=== PATIENT | female | born 1945 | race Caucasian/White ===

== ENCOUNTER → 2018-04-16 13:58 | Outpatient (CLI) | payer MEDICARE, OTHER, SELFPAY ==
[2018-04-16 14:16] LABS: Basophils % 0.2 % (0.1-2.0); Eosinophils # 0.2 K/mm3 (0.0-0.4); Eosinophils % 4.4 % (0.1-12.0); Hemoglobin 12.8 g/dL (12.2-16.2); Lymphocytes # 0.8 K/mm3 (0.7-4.5); Lymphocytes % 15.1 K/mm3 (10-50); Mean Corpuscular HGB Conc 31.9 g/dL (31.8-35.4); Mean Corpuscular Hemoglobin 29.5 pg (27.0-31.2); Mean Corpuscular Volume 92.5 fl (81-99); Mean Platelet Volume 7.9 fl (7.4-10.4); Monocytes # 0.1 K/mm3 (0.1-1.0); Monocytes % 1.3 % (1.7-9.3); Neutrophils # 4.1 K/mm3 (1.8-7.8); Neutrophils % 79.1 % (37.0-80.0); Platelet Count 283 K/mm3 (142-424); Red Blood Count 4.32 M/mm3 (4.20-5.40); Red Cell Distribution Width 14.4 % (11.5-17.5); White Blood Count 5.2 K/mm3 (4.8-10.8)
[2018-04-16 15:22] LABS: Alanine Aminotransferase 42 U/L (12-78); Albumin Level 3.5 gm/dL (3.4-5.0); Alkaline Phosphatase 43 U/L (46-116); Anion Gap 11.7 mEq/L (5-15); Aspartate Amino Transferase 30 U/L (15-37); Bilirubin,Total 0.6 mg/dL (0.2-1.0); Blood Urea Nitrogen 50 mg/dL (7-18); Calcium 8.7 mg/dL (8.5-10.1); Carbon Dioxide 27 mmol/L (21.0-32.0); Chloride 99 mmol/L (98-107); Creatinine,Serum 1.18 mg/dL (0.55-1.02); Estimated Glomerular Filt Rate 45 ml/min (>60); GFR (African American) 54 ML/MIN (>60); Globulin 3.5 gm/dl (1.3-3.2); Glucose 137 mg/dL (74-106); Potassium 4.7 mmoL/L (3.5-5.1); Sodium 133 mmol/L (136-145)
== END ==
PROVIDERS: PCP Family Medicine; Visit Provider Obstetrics & Gynecology Gynecologic Oncology
DX: C54.9 Malignant neoplasm of corpus uteri, unspecified (principal)
CPT/HCPCS: 36415; 80053; 85025

== ENCOUNTER → 2018-04-23 11:12 | Outpatient (CLI) | payer MEDICARE, OTHER, SELFPAY ==
[2018-04-23 11:58] LABS: Basophils % 0.4 % (0.1-2.0); Eosinophils # 0.2 K/mm3 (0.0-0.4); Eosinophils % 10.2 % (0.1-12.0); Hematocrit 33.1 % (37.0-47.0); Hemoglobin 10.5 g/dL (12.2-16.2); Lymphocytes # 1.2 K/mm3 (0.7-4.5); Lymphocytes % 48.3 K/mm3 (10-50); Mean Corpuscular HGB Conc 31.8 g/dL (31.8-35.4); Mean Corpuscular Hemoglobin 29.4 pg (27.0-31.2); Mean Corpuscular Volume 92.6 fl (81-99); Mean Platelet Volume 6.8 fl (7.4-10.4); Monocytes # 0.3 K/mm3 (0.1-1.0); Monocytes % 11.1 % (1.7-9.3); Neutrophils # 0.7 K/mm3 (1.8-7.8); Platelet Count 281 K/mm3 (142-424); Red Blood Count 3.57 M/mm3 (4.20-5.40); Red Cell Distribution Width 14.6 % (11.5-17.5); White Blood Count 2.4 K/mm3 (4.8-10.8)
[2018-04-23 13:10] LABS: Alanine Aminotransferase 32 U/L (12-78); Albumin/Globulin Ratio 0.9 (1.1-1.8); Alkaline Phosphatase 49 U/L (46-116); Aspartate Amino Transferase 23 U/L (15-37); Bilirubin,Total 0.2 mg/dL (0.2-1.0); Blood Urea Nitrogen 14 mg/dL (7-18); Calcium 8.4 mg/dL (8.5-10.1); Carbon Dioxide 27 mmol/L (21.0-32.0); Chloride 103 mmol/L (98-107); Creatinine,Serum 0.65 mg/dL (0.55-1.02); Estimated Glomerular Filt Rate 90 ml/min (>60); GFR (African American) 108 ML/MIN (>60); Globulin 3.4 gm/dl (1.3-3.2); Glucose 83 mg/dL (74-106); Sodium 138 mmol/L (136-145); Total Protein,Serum 6.4 gm/dL (6.4-8.2)
== END ==
PROVIDERS: Obstetrics & Gynecology Gynecologic Oncology; PCP Family Medicine; Visit Provider Family Medicine
DX: C54.9 Malignant neoplasm of corpus uteri, unspecified (principal)
CPT/HCPCS: 36415; 80053; 85025

== ENCOUNTER → 2018-04-30 12:00 | Outpatient (CLI) | payer MEDICARE, OTHER, SELFPAY ==
[2018-04-30 12:16] LABS: Basophils % 0.5 % (0.1-2.0); Eosinophils # 0.1 K/mm3 (0.0-0.4); Eosinophils % 1.7 % (0.1-12.0); Hemoglobin 10.9 g/dL (12.2-16.2); Lymphocytes % 18.3 K/mm3 (10-50); Mean Corpuscular HGB Conc 31.2 g/dL (31.8-35.4); Mean Corpuscular Hemoglobin 29.5 pg (27.0-31.2); Mean Corpuscular Volume 94.5 fl (81-99); Mean Platelet Volume 7.1 fl (7.4-10.4); Monocytes # 0.2 K/mm3 (0.1-1.0); Neutrophils # 4.2 K/mm3 (1.8-7.8); Neutrophils % 76.6 % (37.0-80.0); Platelet Count 308 K/mm3 (142-424); Red Blood Count 3.71 M/mm3 (4.20-5.40); White Blood Count 5.5 K/mm3 (4.8-10.8)
[2018-04-30 20:04] LABS: Alanine Aminotransferase 25 U/L (12-78); Albumin Level 3.1 gm/dL (3.4-5.0); Albumin/Globulin Ratio 0.9 (1.1-1.8); Alkaline Phosphatase 53 U/L (46-116); Anion Gap 13.6 mEq/L (5-15); Aspartate Amino Transferase 19 U/L (15-37); Bilirubin,Total 0.2 mg/dL (0.2-1.0); Blood Urea Nitrogen 19 mg/dL (7-18); Calcium 9.2 mg/dL (8.5-10.1); Carbon Dioxide 28 mmol/L (21.0-32.0); Chloride 104 mmol/L (98-107); Creatinine,Serum 0.79 mg/dL (0.55-1.02); Estimated Glomerular Filt Rate 72 ml/min (>60); GFR (African American) 87 ML/MIN (>60); Globulin 3.5 gm/dl (1.3-3.2); Glucose 98 mg/dL (74-106); Potassium 4.6 mmoL/L (3.5-5.1); Sodium 141 mmol/L (136-145); Total Protein,Serum 6.6 gm/dL (6.4-8.2)
== END ==
PROVIDERS: PCP Family Medicine; Visit Provider Obstetrics & Gynecology Gynecologic Oncology
DX: C54.9 Malignant neoplasm of corpus uteri, unspecified (principal)
CPT/HCPCS: 36415; 80053; 85025

== ENCOUNTER → 2018-05-07 11:57 | Outpatient (CLI) | payer MEDICARE, OTHER, SELFPAY ==
[2018-05-07 12:23] LABS: Basophils % 0.1 % (0.1-2.0); Eosinophils % 0.6 % (0.1-12.0); Hematocrit 37.4 % (37.0-47.0); Hemoglobin 12.1 g/dL (12.2-16.2); Lymphocytes # 1.2 K/mm3 (0.7-4.5); Lymphocytes % 26.4 K/mm3 (10-50); Mean Corpuscular HGB Conc 32.4 g/dL (31.8-35.4); Mean Corpuscular Hemoglobin 29.9 pg (27.0-31.2); Mean Corpuscular Volume 92.4 fl (81-99); Mean Platelet Volume 7.8 fl (7.4-10.4); Monocytes % 0.9 % (1.7-9.3); Neutrophils # 3.2 K/mm3 (1.8-7.8); Platelet Count 376 K/mm3 (142-424); Red Blood Count 4.05 M/mm3 (4.20-5.40); Red Cell Distribution Width 15.8 % (11.5-17.5); White Blood Count 4.5 K/mm3 (4.8-10.8)
[2018-05-07 12:45] LABS: Alanine Aminotransferase 25 U/L (12-78); Albumin Level 3.5 gm/dL (3.4-5.0); Alkaline Phosphatase 46 U/L (46-116); Anion Gap 13.5 mEq/L (5-15); Aspartate Amino Transferase 19 U/L (15-37); Bilirubin,Total 0.5 mg/dL (0.2-1.0); Blood Urea Nitrogen 43 mg/dL (7-18); Calcium 9.8 mg/dL (8.5-10.1); Carbon Dioxide 28 mmol/L (21.0-32.0); Chloride 98 mmol/L (98-107); Creatinine,Serum 1.09 mg/dL (0.55-1.02); Estimated Glomerular Filt Rate 49 ml/min (>60); GFR (African American) 60 ML/MIN (>60); Globulin 3.6 gm/dl (1.3-3.2); Glucose 141 mg/dL (74-106); Potassium 4.5 mmoL/L (3.5-5.1); Sodium 135 mmol/L (136-145); Total Protein,Serum 7.1 gm/dL (6.4-8.2)
== END ==
PROVIDERS: PCP Family Medicine; Visit Provider Obstetrics & Gynecology Gynecologic Oncology
DX: C54.9 Malignant neoplasm of corpus uteri, unspecified (principal)
CPT/HCPCS: 36415; 80053; 85025

== ENCOUNTER → 2018-05-14 11:30 | Outpatient (CLI) | payer MEDICARE, OTHER, SELFPAY ==
[2018-05-14 12:05] LABS: Basophils % 0.4 % (0.1-2.0); Eosinophils % 0.3 % (0.1-12.0); Hematocrit 31.9 % (37.0-47.0); Hemoglobin 10.2 g/dL (12.2-16.2); Lymphocytes # 0.7 K/mm3 (0.7-4.5); Lymphocytes % 35.8 K/mm3 (10-50); Mean Corpuscular Hemoglobin 30.7 pg (27.0-31.2); Monocytes # 0.3 K/mm3 (0.1-1.0); Monocytes % 14.3 % (1.7-9.3); Neutrophils # 0.9 K/mm3 (1.8-7.8); Platelet Count 366 K/mm3 (142-424); Red Blood Count 3.32 M/mm3 (4.20-5.40); Red Cell Distribution Width 16.8 % (11.5-17.5); White Blood Count 1.8 K/mm3 (4.8-10.8)
[2018-05-14 12:55] LABS: Alanine Aminotransferase 24 U/L (12-78); Albumin/Globulin Ratio 0.9 (1.1-1.8); Alkaline Phosphatase 60 U/L (46-116); Anion Gap 12.6 mEq/L (5-15); Aspartate Amino Transferase 17 U/L (15-37); Bilirubin,Total 0.3 mg/dL (0.2-1.0); Blood Urea Nitrogen 17 mg/dL (7-18); Calcium 8.6 mg/dL (8.5-10.1); Carbon Dioxide 25 mmol/L (21.0-32.0); Chloride 105 mmol/L (98-107); Creatinine,Serum 0.68 mg/dL (0.55-1.02); Estimated Glomerular Filt Rate 85 ml/min (>60); GFR (African American) 103 ML/MIN (>60); Globulin 3.4 gm/dl (1.3-3.2); Glucose 120 mg/dL (74-106); Potassium 3.6 mmoL/L (3.5-5.1); Sodium 139 mmol/L (136-145); Total Protein,Serum 6.4 gm/dL (6.4-8.2)
== END ==
PROVIDERS: PCP Family Medicine; Visit Provider Obstetrics & Gynecology Gynecologic Oncology
DX: C54.9 Malignant neoplasm of corpus uteri, unspecified (principal)
CPT/HCPCS: 36415; 80053; 85025

== ENCOUNTER → 2018-05-21 11:52 | Outpatient (CLI) | payer MEDICARE, OTHER, SELFPAY ==
[2018-05-21 12:25] LABS: Alanine Aminotransferase 27 U/L (12-78); Albumin Level 2.8 gm/dL (3.4-5.0); Albumin/Globulin Ratio 0.6 (1.1-1.8); Alkaline Phosphatase 65 U/L (46-116); Aspartate Amino Transferase 18 U/L (15-37); Bilirubin,Total 0.2 mg/dL (0.2-1.0); Blood Urea Nitrogen 19 mg/dL (7-18); Calcium 9.4 mg/dL (8.5-10.1); Carbon Dioxide 30 mmol/L (21.0-32.0); Chloride 103 mmol/L (98-107); Creatinine,Serum 0.75 mg/dL (0.55-1.02); Estimated Glomerular Filt Rate 76 ml/min (>60); GFR (African American) 92 ML/MIN (>60); Globulin 4.5 gm/dl (1.3-3.2); Glucose 82 mg/dL (74-106); Sodium 139 mmol/L (136-145); Total Protein,Serum 7.3 gm/dL (6.4-8.2)
[2018-05-21 13:56] LABS: Basophils % 0.5 % (0.1-2.0); Eosinophils % 0.5 % (0.1-12.0); Hemoglobin 9.7 g/dL (12.2-16.2); Lymphocytes # 1.2 K/mm3 (0.7-4.5); Lymphocytes % 23.7 K/mm3 (10-50); Mean Corpuscular HGB Conc 31.4 g/dL (31.8-35.4); Mean Corpuscular Hemoglobin 30.3 pg (27.0-31.2); Mean Corpuscular Volume 96.5 fl (81-99); Mean Platelet Volume 6.8 fl (7.4-10.4); Monocytes # 0.2 K/mm3 (0.1-1.0); Monocytes % 2.9 % (1.7-9.3); Neutrophils # 3.7 K/mm3 (1.8-7.8); Neutrophils % 72.4 % (37.0-80.0); Platelet Count 288 K/mm3 (142-424); Red Blood Count 3.21 M/mm3 (4.20-5.40); Red Cell Distribution Width 17.1 % (11.5-17.5); White Blood Count 5.2 K/mm3 (4.8-10.8)
== END ==
PROVIDERS: PCP Family Medicine; Visit Provider Obstetrics & Gynecology Gynecologic Oncology
DX: C54.9 Malignant neoplasm of corpus uteri, unspecified (principal)
CPT/HCPCS: 36415; 80053; 85025

== ENCOUNTER → 2018-05-28 12:31 | Outpatient (CLI) | payer MEDICARE, OTHER, SELFPAY ==
[2018-05-28 13:14] LABS: Eosinophils % 0.6 % (0.1-12.0); Hemoglobin 10.4 g/dL (12.2-16.2); Lymphocytes # 0.9 K/mm3 (0.7-4.5); Lymphocytes % 30.1 K/mm3 (10-50); Mean Corpuscular HGB Conc 32.5 g/dL (31.8-35.4); Mean Corpuscular Volume 95.6 fl (81-99); Mean Platelet Volume 7.5 fl (7.4-10.4); Monocytes % 1.3 % (1.7-9.3); Platelet Count 338 K/mm3 (142-424); Red Blood Count 3.35 M/mm3 (4.20-5.40); Red Cell Distribution Width 16.6 % (11.5-17.5)
[2018-05-28 14:35] LABS: Alanine Aminotransferase 24 U/L (12-78); Albumin Level 3.2 gm/dL (3.4-5.0); Albumin/Globulin Ratio 0.9 (1.1-1.8); Alkaline Phosphatase 51 U/L (46-116); Anion Gap 15.3 mEq/L (5-15); Aspartate Amino Transferase 13 U/L (15-37); Bilirubin,Total 0.4 mg/dL (0.2-1.0); Blood Urea Nitrogen 36 mg/dL (7-18); Calcium 9.2 mg/dL (8.5-10.1); Carbon Dioxide 26 mmol/L (21.0-32.0); Chloride 98 mmol/L (98-107); Creatinine,Serum 0.89 mg/dL (0.55-1.02); Estimated Glomerular Filt Rate 62 ml/min (>60); GFR (African American) 75 ML/MIN (>60); Globulin 3.7 gm/dl (1.3-3.2); Glucose 130 mg/dL (74-106); Potassium 4.3 mmoL/L (3.5-5.1); Sodium 135 mmol/L (136-145); Total Protein,Serum 6.9 gm/dL (6.4-8.2)
== END ==
PROVIDERS: PCP Family Medicine; Visit Provider Obstetrics & Gynecology Gynecologic Oncology
DX: C54.9 Malignant neoplasm of corpus uteri, unspecified (principal)
CPT/HCPCS: 36415; 80053; 85025

== ENCOUNTER → 2018-06-04 13:10 | Outpatient (CLI) | payer MEDICARE, OTHER, SELFPAY ==
[2018-06-04 13:59] LABS: Basophils % 0.4 % (0.1-2.0); Eosinophils % 0.9 % (0.1-12.0); Hematocrit 30.5 % (37.0-47.0); Hemoglobin 9.4 g/dL (12.2-16.2); Lymphocytes # 1.7 K/mm3 (0.7-4.5); Lymphocytes % 65.6 K/mm3 (10-50); Mean Corpuscular Hemoglobin 30.8 pg (27.0-31.2); Mean Corpuscular Volume 99.3 fl (81-99); Mean Platelet Volume 7.7 fl (7.4-10.4); Monocytes # 0.2 K/mm3 (0.1-1.0); Monocytes % 8.3 % (1.7-9.3); Neutrophils # 0.6 K/mm3 (1.8-7.8); Neutrophils % 24.7 % (37.0-80.0); Platelet Count 366 K/mm3 (142-424); Red Blood Count 3.07 M/mm3 (4.20-5.40); Red Cell Distribution Width 18.2 % (11.5-17.5); White Blood Count 2.6 K/mm3 (4.8-10.8)
[2018-06-04 14:02] LABS: MANUAL DIFFERENTIAL MANUAL DIFFERENTIAL (MANUAL DIFF)
[2018-06-04 18:23] LABS: Eosinophils % 2 % (0-3); Lymphocytes % 67 % (10-50); Monocytes % 8 % (2-9); Neutrophils % 22 % (42-76); Platelet Estimate Normal; RBC Morphology Normal; Total Cells Counted 100
[2018-06-04 19:45] LABS: Alanine Aminotransferase 25 U/L (12-78); Albumin Level 3.2 gm/dL (3.4-5.0); Alkaline Phosphatase 48 U/L (46-116); Anion Gap 13.4 mEq/L (5-15); Aspartate Amino Transferase 17 U/L (15-37); Bilirubin,Total 0.2 mg/dL (0.2-1.0); Blood Urea Nitrogen 23 mg/dL (7-18); Calcium 8.6 mg/dL (8.5-10.1); Carbon Dioxide 28 mmol/L (21.0-32.0); Chloride 101 mmol/L (98-107); Creatinine,Serum 0.99 mg/dL (0.55-1.02); Estimated Glomerular Filt Rate 55 ml/min (>60); GFR (African American) 67 ML/MIN (>60); Globulin 3.3 gm/dl (1.3-3.2); Glucose 114 mg/dL (74-106); Potassium 3.4 mmoL/L (3.5-5.1); Sodium 139 mmol/L (136-145); Total Protein,Serum 6.5 gm/dL (6.4-8.2)
== END ==
PROVIDERS: Visit Provider Obstetrics & Gynecology Gynecologic Oncology
DX: C65.9 Malignant neoplasm of unspecified renal pelvis (principal)
CPT/HCPCS: 36415; 80053; 85007; 85025

== ENCOUNTER → 2018-06-11 12:14 | Outpatient (CLI) | payer MEDICARE, OTHER, SELFPAY ==
[2018-06-11 13:37] LABS: Basophils % 0.4 % (0.1-2.0); Eosinophils % 0.4 % (0.1-12.0); Hemoglobin 10.5 g/dL (12.2-16.2); Lymphocytes # 1.3 K/mm3 (0.7-4.5); Lymphocytes % 32.8 % (10-50); Mean Corpuscular HGB Conc 31.9 g/dL (31.8-35.4); Mean Corpuscular Hemoglobin 31.6 pg (27.0-31.2); Mean Platelet Volume 6.6 fl (7.4-10.4); Monocytes # 0.2 K/mm3 (0.1-1.0); Monocytes % 4.9 % (1.7-9.3); Neutrophils # 2.4 K/mm3 (1.8-7.8); Neutrophils % 61.5 % (37.0-80.0); Platelet Count 317 K/mm3 (142-424); Red Blood Count 3.33 M/mm3 (4.20-5.40); Red Cell Distribution Width 19.1 % (11.5-17.5); White Blood Count 3.8 K/mm3 (4.8-10.8)
[2018-06-11 13:52] LABS: Alanine Aminotransferase 22 U/L (12-78); Albumin Level 3.3 gm/dL (3.4-5.0); Albumin/Globulin Ratio 0.9 (1.1-1.8); Alkaline Phosphatase 58 U/L (46-116); Aspartate Amino Transferase 16 U/L (15-37); Bilirubin,Total 0.2 mg/dL (0.2-1.0); Blood Urea Nitrogen 18 mg/dL (7-18); Calcium 9.4 mg/dL (8.5-10.1); Carbon Dioxide 29 mmol/L (21.0-32.0); Chloride 101 mmol/L (98-107); Creatinine,Serum 0.68 mg/dL (0.55-1.02); Estimated Glomerular Filt Rate 85 ml/min (>60); GFR (African American) 103 ML/MIN (>60); Globulin 3.6 gm/dl (1.3-3.2); Glucose 99 mg/dL (74-106); Sodium 140 mmol/L (136-145); Total Protein,Serum 6.9 gm/dL (6.4-8.2)
== END ==
PROVIDERS: Visit Provider Obstetrics & Gynecology Gynecologic Oncology
DX: C54.9 Malignant neoplasm of corpus uteri, unspecified (principal)
CPT/HCPCS: 36415; 80053; 85025

== ENCOUNTER 2018-07-25 09:35 | Outpatient (CLI) | payer MEDICARE, OTHER, SELFPAY ==
[2018-07-25 09:46] VITALS: BMI 30.9
[2018-07-25 10:23] LABS: Basophils % 0.6 % (0.1-2.0); Eosinophils # 0.3 K/mm3 (0.0-0.4); Eosinophils % 6.2 % (0.1-12.0); Hematocrit 34.5 % (37.0-47.0); Hemoglobin 10.8 g/dL (12.2-16.2); Lymphocytes # 0.7 K/mm3 (0.7-4.5); Lymphocytes % 13.8 % (10-50); Mean Corpuscular HGB Conc 31.4 g/dL (31.8-35.4); Mean Corpuscular Hemoglobin 31.9 pg (27.0-31.2); Mean Corpuscular Volume 101.7 fl (81-99); Mean Platelet Volume 7.1 fl (7.4-10.4); Monocytes # 0.2 K/mm3 (0.1-1.0); Monocytes % 4.4 % (1.7-9.3); Neutrophils # 3.6 K/mm3 (1.8-7.8); Platelet Count 266 K/mm3 (142-424); Red Blood Count 3.39 M/mm3 (4.20-5.40); Red Cell Distribution Width 15.9 % (11.5-17.5); White Blood Count 4.8 K/mm3 (4.8-10.8)
[2018-07-25 10:37] LABS: Alanine Aminotransferase 25 U/L (12-78); Albumin Level 3.2 gm/dL (3.4-5.0); Alkaline Phosphatase 48 U/L (46-116); Anion Gap 13.6 mEq/L (5-15); Aspartate Amino Transferase 18 U/L (15-37); Bilirubin,Total 0.3 mg/dL (0.2-1.0); Blood Urea Nitrogen 20 mg/dL (7-18); Calcium 8.8 mg/dL (8.5-10.1); Carbon Dioxide 25 mmol/L (21.0-32.0); Chloride 107 mmol/L (98-107); Creatinine Clearance Estimated 64 mL/min (50-200); Creatinine,Serum 0.96 mg/dL (0.55-1.02); Estimated Glomerular Filt Rate 57 ml/min (>60); GFR (African American) 69 ML/MIN (>60); Globulin 3.3 gm/dl (1.3-3.2); Glucose 116 mg/dL (74-106); Potassium 3.6 mmoL/L (3.5-5.1); Sodium 142 mmol/L (136-145); Total Protein,Serum 6.5 gm/dL (6.4-8.2)
== END 2018-07-25 10:15 | disposition home or self-care (01) ==
LOC: INF 09:42
PROVIDERS: Visit Provider Physician Assistant
DX: C54.9 Malignant neoplasm of corpus uteri, unspecified (principal)
CPT/HCPCS: 80053; 85025; J1642

== ENCOUNTER → 2018-07-30 09:22 | Outpatient (CLI) | payer MEDICARE, SELFPAY ==
[2018-07-30 09:24] VITALS: BMI 30.9
[2018-07-30 09:44] LABS: Basophils % 0.6 % (0.1-2.0); Eosinophils # 0.4 K/mm3 (0.0-0.4); Eosinophils % 7.2 % (0.1-12.0); Hematocrit 34.8 % (37.0-47.0); Hemoglobin 10.6 g/dL (12.2-16.2); Lymphocytes # 1.5 K/mm3 (0.7-4.5); Mean Corpuscular HGB Conc 30.4 g/dL (31.8-35.4); Mean Corpuscular Hemoglobin 31.8 pg (27.0-31.2); Mean Corpuscular Volume 104.5 fl (81-99); Mean Platelet Volume 7.6 fl (7.4-10.4); Monocytes # 0.2 K/mm3 (0.1-1.0); Monocytes % 3.1 % (1.7-9.3); Neutrophils % 60.1 % (37.0-80.0); Platelet Count 228 K/mm3 (142-424); Red Blood Count 3.33 M/mm3 (4.20-5.40); Red Cell Distribution Width 15.4 % (11.5-17.5)
[2018-07-30 09:57] LABS: Alanine Aminotransferase 22 U/L (12-78); Albumin Level 3.2 gm/dL (3.4-5.0); Albumin/Globulin Ratio 0.9 (1.1-1.8); Alkaline Phosphatase 55 U/L (46-116); Anion Gap 13.5 mEq/L (5-15); Aspartate Amino Transferase 16 U/L (15-37); Bilirubin,Total 0.3 mg/dL (0.2-1.0); Blood Urea Nitrogen 21 mg/dL (7-18); Calcium 8.7 mg/dL (8.5-10.1); Carbon Dioxide 25 mmol/L (21.0-32.0); Chloride 103 mmol/L (98-107); Creatinine Clearance Estimated 64 mL/min (50-200); Creatinine,Serum 0.91 mg/dL (0.55-1.02); Estimated Glomerular Filt Rate 61 ml/min (>60); GFR (African American) 74 ML/MIN (>60); Globulin 3.5 gm/dl (1.3-3.2); Glucose 121 mg/dL (74-106); Potassium 3.5 mmoL/L (3.5-5.1); Sodium 138 mmol/L (136-145); Total Protein,Serum 6.7 gm/dL (6.4-8.2)
== END ==
PROVIDERS: Visit Provider Physician Assistant
DX: C54.9 Malignant neoplasm of corpus uteri, unspecified (principal)
CPT/HCPCS: 80053; 85025; J1642

== ENCOUNTER 2018-08-06 09:36 | Outpatient (CLI) | payer MEDICARE, SELFPAY ==
[2018-08-06 09:36] VITALS: BMI 29.2
[2018-08-06 10:11] LABS: Basophils % 0.1 % (0.1-2.0); Eosinophils % 0.1 % (0.1-12.0); Hematocrit 37.8 % (37.0-47.0); Hemoglobin 12.2 g/dL (12.2-16.2); Lymphocytes # 0.7 K/mm3 (0.7-4.5); Lymphocytes % 13.7 % (10-50); Mean Corpuscular HGB Conc 32.2 g/dL (31.8-35.4); Mean Corpuscular Hemoglobin 32.1 pg (27.0-31.2); Mean Corpuscular Volume 99.9 fl (81-99); Mean Platelet Volume 7.3 fl (7.4-10.4); Monocytes # 0.1 K/mm3 (0.1-1.0); Neutrophils # 4.1 K/mm3 (1.8-7.8); Neutrophils % 85.1 % (37.0-80.0); Platelet Count 382 K/mm3 (142-424); Red Blood Count 3.79 M/mm3 (4.20-5.40); Red Cell Distribution Width 14.8 % (11.5-17.5); White Blood Count 4.8 K/mm3 (4.8-10.8)
[2018-08-06 10:13] LABS: MANUAL DIFFERENTIAL MANUAL DIFFERENTIAL (MANUAL DIFF)
[2018-08-06 10:24] LABS: Alanine Aminotransferase 27 U/L (12-78); Albumin Level 3.6 gm/dL (3.4-5.0); Albumin/Globulin Ratio 0.9 (1.1-1.8); Alkaline Phosphatase 58 U/L (46-116); Anion Gap 18.7 mEq/L (5-15); Aspartate Amino Transferase 18 U/L (15-37); Bilirubin,Total 0.4 mg/dL (0.2-1.0); Blood Urea Nitrogen 30 mg/dL (7-18); Calcium 9.1 mg/dL (8.5-10.1); Carbon Dioxide 22 mmol/L (21.0-32.0); Chloride 99 mmol/L (98-107); Creatinine Clearance Estimated 50 mL/min (50-200); Creatinine,Serum 1.19 mg/dL (0.55-1.02); Estimated Glomerular Filt Rate 45 ml/min (>60); GFR (African American) 54 ML/MIN (>60); Glucose 175 mg/dL (74-106); Potassium 3.7 mmoL/L (3.5-5.1); Sodium 136 mmol/L (136-145); Total Protein,Serum 7.6 gm/dL (6.4-8.2)
[2018-08-06 10:28] LABS: Lymphocytes % 9 % (10-50); Neutrophils % 91 % (42-76); Total Cells Counted 100
[2018-08-06 10:29] LABS: Platelet Estimate Normal; RBC Morphology Normal
== END 2018-08-06 09:45 | disposition home or self-care (01) ==
LOC: INF 09:36
PROVIDERS: Visit Provider Physician Assistant
DX: C54.9 Malignant neoplasm of corpus uteri, unspecified (principal)
CPT/HCPCS: 80053; 85007; 85025

== ENCOUNTER 2018-08-13 09:27 | Outpatient (CLI) | payer MEDICARE, SELFPAY ==
[2018-08-13 09:27] VITALS: BMI 29.2
[2018-08-13 09:40] VITALS: BP 122/74; PULSE 68; RESP 20; TEMP 36.9; O2SAT 96
[2018-08-13 10:05] LABS: Basophils % 0.4 % (0.1-2.0); Eosinophils # 0.1 K/mm3 (0.0-0.4); Eosinophils % 4.6 % (0.1-12.0); Hematocrit 32.9 % (37.0-47.0); Hemoglobin 10.3 g/dL (12.2-16.2); Lymphocytes # 1.2 K/mm3 (0.7-4.5); Lymphocytes % 53.4 % (10-50); Mean Corpuscular HGB Conc 31.4 g/dL (31.8-35.4); Mean Corpuscular Hemoglobin 31.9 pg (27.0-31.2); Mean Corpuscular Volume 101.5 fl (81-99); Mean Platelet Volume 7.2 fl (7.4-10.4); Monocytes # 0.1 K/mm3 (0.1-1.0); Neutrophils # 0.8 K/mm3 (1.8-7.8); Neutrophils % 36.7 % (37.0-80.0); Platelet Count 252 K/mm3 (142-424); Red Blood Count 3.24 M/mm3 (4.20-5.40); Red Cell Distribution Width 15.5 % (11.5-17.5); White Blood Count 2.2 K/mm3 (4.8-10.8)
[2018-08-13 10:06] LABS: MANUAL DIFFERENTIAL MANUAL DIFFERENTIAL (MANUAL DIFF)
[2018-08-13 10:15] LABS: Alanine Aminotransferase 28 U/L (12-78); Albumin/Globulin Ratio 0.8 (1.1-1.8); Alkaline Phosphatase 58 U/L (46-116); Anion Gap 13.9 mEq/L (5-15); Aspartate Amino Transferase 14 U/L (15-37); Bilirubin,Total 0.2 mg/dL (0.2-1.0); Blood Urea Nitrogen 19 mg/dL (7-18); Carbon Dioxide 25 mmol/L (21.0-32.0); Chloride 105 mmol/L (98-107); Creatinine Clearance Estimated 60 mL/min (50-200); Creatinine,Serum 0.84 mg/dL (0.55-1.02); Estimated Glomerular Filt Rate 67 ml/min (>60); GFR (African American) 81 ML/MIN (>60); Globulin 3.6 gm/dl (1.3-3.2); Glucose 127 mg/dL (74-106); Sodium 141 mmol/L (136-145); Total Protein,Serum 6.6 gm/dL (6.4-8.2)
[2018-08-13 10:19] LABS: Potassium 2.9 mmoL/L (3.5-5.1)
[2018-08-13 10:44] LABS: Lymphocytes % 54 % (10-50); Monocytes % 6 % (2-9); Neutrophils % 39 % (42-76); Total Cells Counted 100
[2018-08-13 10:45] LABS: Macrocytosis 1+
[2018-08-13 10:46] LABS: Hypochromasia 1+; Platelet Estimate Normal
== END 2018-08-13 09:45 | disposition home or self-care (01) ==
LOC: INF 09:27
PROVIDERS: Physician Assistant; Visit Provider Family Medicine
DX: C54.9 Malignant neoplasm of corpus uteri, unspecified (principal)
CPT/HCPCS: 80053; 85007; 85025

== ENCOUNTER → 2018-08-20 09:58 | Outpatient (CLI) | payer MEDICARE, SELFPAY ==
[2018-08-20 09:58] VITALS: BMI 29.2
[2018-08-20 10:28] LABS: Basophils % 0.4 % (0.1-2.0); Eosinophils # 0.1 K/mm3 (0.0-0.4); Eosinophils % 2.3 % (0.1-12.0); Hematocrit 34.4 % (37.0-47.0); Hemoglobin 10.9 g/dL (12.2-16.2); Lymphocytes # 1.1 K/mm3 (0.7-4.5); Lymphocytes % 35.9 % (10-50); Mean Corpuscular HGB Conc 31.9 g/dL (31.8-35.4); Mean Corpuscular Volume 100.3 fl (81-99); Mean Platelet Volume 7.5 fl (7.4-10.4); Monocytes # 0.2 K/mm3 (0.1-1.0); Monocytes % 5.4 % (1.7-9.3); Neutrophils # 1.7 K/mm3 (1.8-7.8); Platelet Count 195 K/mm3 (142-424); Red Blood Count 3.42 M/mm3 (4.20-5.40); Red Cell Distribution Width 16.3 % (11.5-17.5); White Blood Count 2.9 K/mm3 (4.8-10.8)
[2018-08-20 10:41] LABS: Alanine Aminotransferase 23 U/L (12-78); Albumin Level 3.3 gm/dL (3.4-5.0); Albumin/Globulin Ratio 0.9 (1.1-1.8); Alkaline Phosphatase 66 U/L (46-116); Anion Gap 13.8 mEq/L (5-15); Aspartate Amino Transferase 13 U/L (15-37); Bilirubin,Total 0.2 mg/dL (0.2-1.0); Blood Urea Nitrogen 20 mg/dL (7-18); Calcium 9.4 mg/dL (8.5-10.1); Carbon Dioxide 29 mmol/L (21.0-32.0); Chloride 102 mmol/L (98-107); Creatinine Clearance Estimated 60 mL/min (50-200); Estimated Glomerular Filt Rate 71 ml/min (>60); GFR (African American) 85 ML/MIN (>60); Globulin 3.8 gm/dl (1.3-3.2); Glucose 88 mg/dL (74-106); Potassium 3.8 mmoL/L (3.5-5.1); Sodium 141 mmol/L (136-145); Total Protein,Serum 7.1 gm/dL (6.4-8.2)
== END ==
DX: C54.9 Malignant neoplasm of corpus uteri, unspecified (principal)
CPT/HCPCS: 80053; 85025

== ENCOUNTER 2018-08-27 09:46 | Outpatient (CLI) | payer MEDICARE, SELFPAY ==
[2018-08-27 09:50] VITALS: BMI 29.2
[2018-08-27 10:12] LABS: Basophils % 0.4 % (0.1-2.0); Eosinophils % 1.4 % (0.1-12.0); Hematocrit 37.1 % (37.0-47.0); Hemoglobin 11.2 g/dL (12.2-16.2); Lymphocytes # 1.2 K/mm3 (0.7-4.5); Lymphocytes % 37.3 % (10-50); Mean Corpuscular HGB Conc 30.3 g/dL (31.8-35.4); Mean Corpuscular Hemoglobin 31.4 pg (27.0-31.2); Mean Corpuscular Volume 103.5 fl (81-99); Mean Platelet Volume 9.1 fl (7.4-10.4); Monocytes % 0.7 % (1.7-9.3); Neutrophils # 1.9 K/mm3 (1.8-7.8); Neutrophils % 60.2 % (37.0-80.0); Platelet Count 192 K/mm3 (142-424); Red Blood Count 3.58 M/mm3 (4.20-5.40); Red Cell Distribution Width 15.9 % (11.5-17.5); White Blood Count 3.1 K/mm3 (4.8-10.8)
[2018-08-27 10:22] LABS: Alanine Aminotransferase 24 U/L (12-78); Albumin Level 3.4 gm/dL (3.4-5.0); Albumin/Globulin Ratio 0.9 (1.1-1.8); Alkaline Phosphatase 62 U/L (46-116); Anion Gap 14.3 mEq/L (5-15); Aspartate Amino Transferase 19 U/L (15-37); Bilirubin,Total 0.4 mg/dL (0.2-1.0); Blood Urea Nitrogen 37 mg/dL (7-18); Calcium 9.4 mg/dL (8.5-10.1); Carbon Dioxide 27 mmol/L (21.0-32.0); Chloride 99 mmol/L (98-107); Creatinine Clearance Estimated 55 mL/min (50-200); Estimated Glomerular Filt Rate 49 ml/min (>60); GFR (African American) 59 ML/MIN (>60); Globulin 3.9 gm/dl (1.3-3.2); Glucose 105 mg/dL (74-106); Potassium 3.3 mmoL/L (3.5-5.1); Sodium 137 mmol/L (136-145); Total Protein,Serum 7.3 gm/dL (6.4-8.2)
== END 2018-08-27 10:00 | disposition home or self-care (01) ==
LOC: INF 09:46
PROVIDERS: Visit Provider Physician Assistant
DX: C54.9 Malignant neoplasm of corpus uteri, unspecified (principal)
CPT/HCPCS: 80053; 85025; J1642

== ENCOUNTER 2018-09-03 09:26 | Outpatient (CLI) | payer MEDICARE, SELFPAY ==
[2018-09-03 09:26] VITALS: BMI 29.2
[2018-09-03 10:01] LABS: Lymphocytes # 0.8 K/mm3 (0.7-4.5); Mean Corpuscular Volume 100.2 fl (81-99); Monocytes # 0.1 K/mm3 (0.1-1.0); White Blood Count 1.2 K/mm3 (4.8-10.8)
[2018-09-03 10:09] LABS: Basophils % 0.4 % (0.1-2.0); Eosinophils % 0.8 % (0.1-12.0); Hematocrit 29.9 % (37.0-47.0); Hemoglobin 9.7 g/dL (12.2-16.2); Lymphocytes % 66.2 % (10-50); Mean Corpuscular HGB Conc 32.6 g/dL (31.8-35.4); Mean Corpuscular Hemoglobin 32.6 pg (27.0-31.2); Mean Platelet Volume 7.4 fl (7.4-10.4); Monocytes % 4.7 % (1.7-9.3); Neutrophils # 0.3 K/mm3 (1.8-7.8); Platelet Count 190 K/mm3 (142-424); Red Blood Count 2.98 M/mm3 (4.20-5.40); Red Cell Distribution Width 16.4 % (11.5-17.5)
[2018-09-03 10:11] LABS: MANUAL DIFFERENTIAL MANUAL DIFFERENTIAL (MANUAL DIFF)
[2018-09-03 10:13] LABS: Alanine Aminotransferase 20 U/L (12-78); Albumin Level 2.9 gm/dL (3.4-5.0); Albumin/Globulin Ratio 0.8 (1.1-1.8); Alkaline Phosphatase 55 U/L (46-116); Anion Gap 16.8 mEq/L (5-15); Aspartate Amino Transferase 9 U/L (15-37); Bilirubin,Total 0.2 mg/dL (0.2-1.0); Blood Urea Nitrogen 21 mg/dL (7-18); Calcium 8.8 mg/dL (8.5-10.1); Carbon Dioxide 24 mmol/L (21.0-32.0); Chloride 104 mmol/L (98-107); Creatinine Clearance Estimated 60 mL/min (50-200); Creatinine,Serum 0.75 mg/dL (0.55-1.02); Estimated Glomerular Filt Rate 76 ml/min (>60); GFR (African American) 92 ML/MIN (>60); Globulin 3.5 gm/dl (1.3-3.2); Glucose 119 mg/dL (74-106); Sodium 142 mmol/L (136-145); Total Protein,Serum 6.4 gm/dL (6.4-8.2)
[2018-09-03 10:15] LABS: Potassium 2.8 mmoL/L (3.5-5.1)
[2018-09-03 10:24] LABS: Eosinophils % 4 % (0-3); Lymphocytes % 64 % (10-50); Monocytes % 8 % (2-9); Neutrophils % 24 % (42-76); Platelet Estimate Normal; Total Cells Counted 50
[2018-09-03 10:25] LABS: Macrocytosis 1+
== END 2018-09-03 09:45 | disposition home or self-care (01) ==
LOC: INF 09:26
PROVIDERS: Visit Provider Physician Assistant
DX: C54.9 Malignant neoplasm of corpus uteri, unspecified (principal)
CPT/HCPCS: 80053; 85007; 85025; J1642

== ENCOUNTER 2018-09-06 10:29 | Outpatient (CLI) | payer MEDICARE, SELFPAY ==
[2018-09-06 10:30] VITALS: BMI 29.2
[2018-09-06 10:56] LABS: Basophils % 0.7 % (0.1-2.0); Eosinophils % 0.5 % (0.1-12.0); Hematocrit 32.7 % (37.0-47.0); Hemoglobin 10.8 g/dL (12.2-16.2); Lymphocytes % 68.1 % (10-50); Mean Corpuscular HGB Conc 32.9 g/dL (31.8-35.4); Mean Corpuscular Hemoglobin 32.9 pg (27.0-31.2); Mean Corpuscular Volume 99.7 fl (81-99); Mean Platelet Volume 7.4 fl (7.4-10.4); Monocytes # 0.1 K/mm3 (0.1-1.0); Monocytes % 9.2 % (1.7-9.3); Neutrophils # 0.3 K/mm3 (1.8-7.8); Neutrophils % 21.4 % (37.0-80.0); Platelet Count 236 K/mm3 (142-424); Red Blood Count 3.28 M/mm3 (4.20-5.40); White Blood Count 1.4 K/mm3 (4.8-10.8)
[2018-09-06 10:59] LABS: MANUAL DIFFERENTIAL MANUAL DIFFERENTIAL (MANUAL DIFF)
[2018-09-06 11:08] LABS: Alanine Aminotransferase 21 U/L (12-78); Albumin Level 3.2 gm/dL (3.4-5.0); Albumin/Globulin Ratio 0.8 (1.1-1.8); Alkaline Phosphatase 63 U/L (46-116); Anion Gap 11.9 mEq/L (5-15); Aspartate Amino Transferase 7 U/L (15-37); Bilirubin,Total 0.2 mg/dL (0.2-1.0); Blood Urea Nitrogen 23 mg/dL (7-18); Calcium 9.7 mg/dL (8.5-10.1); Carbon Dioxide 30 mmol/L (21.0-32.0); Chloride 101 mmol/L (98-107); Creatinine Clearance Estimated 60 mL/min (50-200); Creatinine,Serum 0.81 mg/dL (0.55-1.02); Estimated Glomerular Filt Rate 70 ml/min (>60); GFR (African American) 84 ML/MIN (>60); Glucose 93 mg/dL (74-106); Potassium 3.9 mmoL/L (3.5-5.1); Sodium 139 mmol/L (136-145); Total Protein,Serum 7.2 gm/dL (6.4-8.2)
[2018-09-06 11:17] LABS: Lymphocytes % 66 % (10-50); Monocytes % 8 % (2-9); Neutrophils % 26 % (42-76); Platelet Estimate Normal; Total Cells Counted 50
[2018-09-06 11:18] LABS: RBC Morphology Normal
== END 2018-09-06 10:45 | disposition home or self-care (01) ==
LOC: INF 10:29
PROVIDERS: Visit Provider Physician Assistant
DX: C54.9 Malignant neoplasm of corpus uteri, unspecified (principal); Z45.2 Encounter for adjustment and management of vascular access device
CPT/HCPCS: 80053; 85007; 85025; J1642

== ENCOUNTER 2018-09-10 09:24 | Outpatient (CLI) | payer MEDICARE, SELFPAY ==
[2018-09-10 09:25] VITALS: BMI 28.8
[2018-09-10 09:48] LABS: Basophils % 0.7 % (0.1-2.0); Hematocrit 32.9 % (37.0-47.0); Hemoglobin 10.7 g/dL (12.2-16.2); Lymphocytes # 1.1 K/mm3 (0.7-4.5); Lymphocytes % 39.4 % (10-50); Mean Corpuscular HGB Conc 32.6 g/dL (31.8-35.4); Mean Corpuscular Hemoglobin 32.8 pg (27.0-31.2); Mean Corpuscular Volume 100.5 fl (81-99); Mean Platelet Volume 7.6 fl (7.4-10.4); Monocytes # 0.2 K/mm3 (0.1-1.0); Monocytes % 6.3 % (1.7-9.3); Neutrophils # 1.4 K/mm3 (1.8-7.8); Neutrophils % 52.6 % (37.0-80.0); Platelet Count 256 K/mm3 (142-424); Red Blood Count 3.27 M/mm3 (4.20-5.40); Red Cell Distribution Width 17.1 % (11.5-17.5); White Blood Count 2.7 K/mm3 (4.8-10.8)
[2018-09-10 09:56] LABS: Alanine Aminotransferase 19 U/L (12-78); Albumin Level 3.1 gm/dL (3.4-5.0); Albumin/Globulin Ratio 0.8 (1.1-1.8); Alkaline Phosphatase 63 U/L (46-116); Anion Gap 15.5 mEq/L (5-15); Aspartate Amino Transferase 8 U/L (15-37); Bilirubin,Total 0.2 mg/dL (0.2-1.0); Blood Urea Nitrogen 23 mg/dL (7-18); Calcium 9.5 mg/dL (8.5-10.1); Carbon Dioxide 26 mmol/L (21.0-32.0); Chloride 104 mmol/L (98-107); Creatinine Clearance Estimated 60 mL/min (50-200); Creatinine,Serum 0.86 mg/dL (0.55-1.02); Estimated Glomerular Filt Rate 65 ml/min (>60); GFR (African American) 78 ML/MIN (>60); Globulin 3.9 gm/dl (1.3-3.2); Glucose 148 mg/dL (74-106); Potassium 3.5 mmoL/L (3.5-5.1); Sodium 142 mmol/L (136-145)
== END 2018-09-10 09:40 | disposition home or self-care (01) ==
LOC: INF 09:24
PROVIDERS: Visit Provider Physician Assistant
DX: C54.9 Malignant neoplasm of corpus uteri, unspecified (principal); Z45.2 Encounter for adjustment and management of vascular access device
CPT/HCPCS: 80053; 85025; J1642

== ENCOUNTER 2018-09-18 09:32 | Outpatient (CLI) | payer MEDICARE, SELFPAY ==
[2018-09-18 09:32] VITALS: BMI 29.2
[2018-09-18 09:40] VITALS: BP 112/74; PULSE 68; RESP 20; TEMP 36.9
[2018-09-18 10:21] LABS: Basophils % 0.2 % (0.1-2.0); Eosinophils % 0.5 % (0.1-12.0); Hemoglobin 10.6 g/dL (12.2-16.2); Lymphocytes # 1.2 K/mm3 (0.7-4.5); Lymphocytes % 40.3 % (10-50); Mean Corpuscular HGB Conc 31.2 g/dL (31.8-35.4); Mean Corpuscular Hemoglobin 31.9 pg (27.0-31.2); Mean Corpuscular Volume 102.2 fl (81-99); Mean Platelet Volume 7.6 fl (7.4-10.4); Monocytes % 1.3 % (1.7-9.3); Neutrophils # 1.7 K/mm3 (1.8-7.8); Neutrophils % 57.7 % (37.0-80.0); Platelet Count 283 K/mm3 (142-424); Red Blood Count 3.33 M/mm3 (4.20-5.40); Red Cell Distribution Width 16.7 % (11.5-17.5); White Blood Count 2.9 K/mm3 (4.8-10.8)
[2018-09-18 10:37] LABS: Alanine Aminotransferase 22 U/L (12-78); Albumin/Globulin Ratio 0.9 (1.1-1.8); Alkaline Phosphatase 53 U/L (46-116); Anion Gap 14.6 mEq/L (5-15); Aspartate Amino Transferase 12 U/L (15-37); Bilirubin,Total 0.3 mg/dL (0.2-1.0); Blood Urea Nitrogen 33 mg/dL (7-18); Calcium 8.9 mg/dL (8.5-10.1); Carbon Dioxide 26 mmol/L (21.0-32.0); Chloride 102 mmol/L (98-107); Creatinine Clearance Estimated 60 mL/min (50-200); Creatinine,Serum 0.83 mg/dL (0.55-1.02); Estimated Glomerular Filt Rate 68 ml/min (>60); GFR (African American) 82 ML/MIN (>60); Globulin 3.5 gm/dl (1.3-3.2); Glucose 119 mg/dL (74-106); Potassium 3.6 mmoL/L (3.5-5.1); Sodium 139 mmol/L (136-145); Total Protein,Serum 6.5 gm/dL (6.4-8.2)
== END 2018-09-18 10:00 | disposition home or self-care (01) ==
LOC: INF 09:32
PROVIDERS: Visit Provider Physician Assistant
DX: C54.9 Malignant neoplasm of corpus uteri, unspecified (principal)
CPT/HCPCS: 80053; 85025; J1642

== ENCOUNTER 2018-09-24 09:33 | Outpatient (CLI) | payer MEDICARE, SELFPAY ==
[2018-09-24 09:47] VITALS: BMI 29.2
[2018-09-24 10:21] LABS: Basophils % 0.5 % (0.1-2.0); Eosinophils % 0.9 % (0.1-12.0); Hematocrit 31.6 % (37.0-47.0); Hemoglobin 10.2 g/dL (12.2-16.2); Mean Corpuscular HGB Conc 32.2 g/dL (31.8-35.4); Mean Corpuscular Hemoglobin 31.9 pg (27.0-31.2); Mean Corpuscular Volume 99.2 fl (81-99); Mean Platelet Volume 8.1 fl (7.4-10.4); Monocytes # 0.2 K/mm3 (0.1-1.0); Monocytes % 8.2 % (1.7-9.3); Neutrophils # 0.6 K/mm3 (1.8-7.8); Neutrophils % 34.5 % (37.0-80.0); Platelet Count 269 K/mm3 (142-424); Red Blood Count 3.19 M/mm3 (4.20-5.40); Red Cell Distribution Width 17.1 % (11.5-17.5); White Blood Count 1.8 K/mm3 (4.8-10.8)
[2018-09-24 10:24] LABS: MANUAL DIFFERENTIAL MANUAL DIFFERENTIAL (MANUAL DIFF)
[2018-09-24 10:32] LABS: Alanine Aminotransferase 23 U/L (12-78); Albumin Level 3.1 gm/dL (3.4-5.0); Albumin/Globulin Ratio 0.8 (1.1-1.8); Alkaline Phosphatase 64 U/L (46-116); Anion Gap 13.5 mEq/L (5-15); Aspartate Amino Transferase 11 U/L (15-37); Bilirubin,Total 0.2 mg/dL (0.2-1.0); Blood Urea Nitrogen 18 mg/dL (7-18); Calcium 9.2 mg/dL (8.5-10.1); Carbon Dioxide 28 mmol/L (21.0-32.0); Chloride 103 mmol/L (98-107); Creatinine Clearance Estimated 60 mL/min (50-200); Creatinine,Serum 0.74 mg/dL (0.55-1.02); Estimated Glomerular Filt Rate 77 ml/min (>60); GFR (African American) 93 ML/MIN (>60); Globulin 3.8 gm/dl (1.3-3.2); Glucose 85 mg/dL (74-106); Potassium 3.5 mmoL/L (3.5-5.1); Sodium 141 mmol/L (136-145); Total Protein,Serum 6.9 gm/dL (6.4-8.2)
[2018-09-24 10:58] LABS: Lymphocytes % 61 % (10-50); Monocytes % 8 % (2-9); Neutrophils % 19 % (42-76); Platelet Estimate Normal; Promyelocytes % 1 %; Total Cells Counted 100
[2018-09-24 10:59] LABS: Anisocytosis 1+; Macrocytosis 1+
[2018-09-24 11:00] LABS: Target Cells 1+
[2018-09-24 11:03] LABS: Tear Drop Cells 1+
== END 2018-09-24 10:15 | disposition home or self-care (01) ==
LOC: INF 09:33
PROVIDERS: Visit Provider Physician Assistant
DX: C54.9 Malignant neoplasm of corpus uteri, unspecified (principal); Z45.2 Encounter for adjustment and management of vascular access device
CPT/HCPCS: 80053; 85007; 85025; J1642

== ENCOUNTER 2018-10-01 09:24 | Outpatient (CLI) | payer MEDICARE, SELFPAY ==
[2018-10-01 09:31] VITALS: BMI 29.2
[2018-10-01 10:09] LABS: Basophils % 0.5 % (0.1-2.0); Eosinophils % 0.5 % (0.1-12.0); Hematocrit 32.1 % (37.0-47.0); Lymphocytes # 1.1 K/mm3 (0.7-4.5); Lymphocytes % 38.3 % (10-50); Mean Corpuscular HGB Conc 31.1 g/dL (31.8-35.4); Mean Corpuscular Hemoglobin 31.8 pg (27.0-31.2); Mean Corpuscular Volume 102.1 fl (81-99); Mean Platelet Volume 7.6 fl (7.4-10.4); Monocytes # 0.2 K/mm3 (0.1-1.0); Neutrophils # 1.6 K/mm3 (1.8-7.8); Neutrophils % 54.8 % (37.0-80.0); Platelet Count 259 K/mm3 (142-424); Red Blood Count 3.14 M/mm3 (4.20-5.40); Red Cell Distribution Width 17.6 % (11.5-17.5)
[2018-10-01 10:20] LABS: Alanine Aminotransferase 20 U/L (12-78); Albumin Level 2.9 gm/dL (3.4-5.0); Albumin/Globulin Ratio 0.8 (1.1-1.8); Alkaline Phosphatase 59 U/L (46-116); Anion Gap 12.5 mEq/L (5-15); Aspartate Amino Transferase 10 U/L (15-37); Bilirubin,Total 0.2 mg/dL (0.2-1.0); Blood Urea Nitrogen 24 mg/dL (7-18); Calcium 9.1 mg/dL (8.5-10.1); Carbon Dioxide 27 mmol/L (21.0-32.0); Chloride 104 mmol/L (98-107); Creatinine Clearance Estimated 59 mL/min (50-200); Creatinine,Serum 0.87 mg/dL (0.55-1.02); Estimated Glomerular Filt Rate 64 ml/min (>60); GFR (African American) 77 ML/MIN (>60); Globulin 3.6 gm/dl (1.3-3.2); Glucose 114 mg/dL (74-106); Potassium 3.5 mmoL/L (3.5-5.1); Sodium 140 mmol/L (136-145); Total Protein,Serum 6.5 gm/dL (6.4-8.2)
== END 2018-10-01 10:40 | disposition home or self-care (01) ==
LOC: INF 09:24
PROVIDERS: Physician Assistant; Visit Provider Family Medicine
DX: C54.9 Malignant neoplasm of corpus uteri, unspecified (principal); Z45.2 Encounter for adjustment and management of vascular access device
CPT/HCPCS: 80053; 85025; J1642

== ENCOUNTER 2018-10-30 09:21 | Outpatient (CLI) | payer MEDICARE, OTHER, SELFPAY | END 2018-10-30 09:50 | disposition home or self-care (01) | LOC: INF 09:21 | PROVIDERS: Visit Provider Family Medicine | DX: Z45.2 Encounter for adjustment and management of vascular access device (principal); C54.9 Malignant neoplasm of corpus uteri, unspecified | CPT/HCPCS: 96523; J1642 ==

== ENCOUNTER 2018-11-28 09:28 | Outpatient (CLI) | payer MEDICARE, OTHER, SELFPAY | END 2018-11-28 09:47 | disposition home or self-care (01) | LOC: INF 09:28 | PROVIDERS: Visit Provider Family Medicine | DX: Z45.2 Encounter for adjustment and management of vascular access device (principal) | CPT/HCPCS: 96523; J1642 ==

== ENCOUNTER 2018-12-07 12:26 | Outpatient (CLI) | payer MEDICARE, OTHER, SELFPAY ==
[2018-12-07 12:26] VITALS: BMI 30.1
[2018-12-07 13:54] LABS: Alanine Aminotransferase 21 U/L (12-78); Albumin Level 3.7 gm/dL (3.4-5.0); Albumin/Globulin Ratio 0.9 (1.1-1.8); Alkaline Phosphatase 61 U/L (46-116); Anion Gap 15.6 mEq/L (5-15); Aspartate Amino Transferase 8 U/L (15-37); Bilirubin,Total 0.3 mg/dL (0.2-1.0); Blood Urea Nitrogen 19 mg/dL (7-18); Calcium 9.2 mg/dL (8.5-10.1); Carbon Dioxide 26 mmol/L (21.0-32.0); Chloride 102 mmol/L (98-107); Chol/HDL Ratio 3.2 (1-3.5); Cholesterol 175 mg/dL (140-200); Creatinine Clearance Estimated 61 mL/min (50-200); Estimated Glomerular Filt Rate 61 ml/min (>60); Free T4 (Free Thyroxine) 1.06 ng/dl (0.76-1.46); GFR (African American) 74 ML/MIN (>60); Glucose 83 mg/dL (74-106); HDL Cholesterol 54 mg/dL (29-89); LDL Cholesterol 96 mg/dL (0-130); Potassium 3.6 mmoL/L (3.5-5.1); Sodium 140 mmol/L (136-145); Thyroid Stimulating Hormone 8.52 uIU/ml (0.358-3.740); Total Protein,Serum 7.7 gm/dL (6.4-8.2); Triglycerides 127 mg/dL (30-200); VLDL Cholesterol 25 mg/dL (0-40)
[2018-12-07 13:56] LABS: Hemoglobin A1C 5.7 % (0.0-7.0)
[2018-12-07 14:18] LABS: Basophils % 0.6 % (0.1-2.0); Eosinophils # 0.2 K/mm3 (0.0-0.4); Eosinophils % 3.7 % (0.1-12.0); Hematocrit 36.3 % (37.0-47.0); Hemoglobin 11.6 g/dL (12.2-16.2); Lymphocytes # 1.7 K/mm3 (0.7-4.5); Lymphocytes % 29.4 % (10-50); Mean Corpuscular Hemoglobin 32.1 pg (27.0-31.2); Mean Corpuscular Volume 100.4 fl (81-99); Mean Platelet Volume 7.1 fl (7.4-10.4); Monocytes # 0.2 K/mm3 (0.1-1.0); Monocytes % 3.4 % (1.7-9.3); Neutrophils # 3.6 K/mm3 (1.8-7.8); Neutrophils % 62.8 % (37.0-80.0); Platelet Count 283 K/mm3 (142-424); Red Blood Count 3.61 M/mm3 (4.20-5.40); Red Cell Distribution Width 13.8 % (11.5-17.5); White Blood Count 5.7 K/mm3 (4.8-10.8)
== END 2018-12-07 13:30 ==
LOC: INF 12:28
PROVIDERS: PCP Family Medicine; Visit Provider Family Medicine
DX: E78.5 Hyperlipidemia, unspecified (principal); I10 Essential (primary) hypertension; R73.9 Hyperglycemia, unspecified; E89.0 Postprocedural hypothyroidism; Z79.899 Other long term (current) drug therapy
CPT/HCPCS: 80053; 80061; 83036; 84439; 84443; 85025

== ENCOUNTER 2019-01-29 09:37 | Outpatient (CLI) | payer MEDICARE, OTHER, SELFPAY | END 2019-01-29 09:50 | disposition home or self-care (01) | LOC: INF 09:37 | PROVIDERS: Visit Provider Family Medicine | DX: Z45.2 Encounter for adjustment and management of vascular access device (principal) | CPT/HCPCS: 96523; J1642 ==

== ENCOUNTER 2019-03-06 12:56 | Outpatient (CLI) | payer MEDICARE, OTHER, SELFPAY | END 2019-03-06 13:20 | disposition home or self-care (01) | LOC: INF 12:56 | PROVIDERS: Visit Provider Nurse Practitioner Family | DX: Z45.2 Encounter for adjustment and management of vascular access device (principal) | CPT/HCPCS: 96523; J1642 ==

== ENCOUNTER 2019-05-14 09:18 | Outpatient (CLI) | payer MEDICARE, OTHER, SELFPAY ==
[2019-05-14 09:19] VITALS: BMI 30.1
[2019-05-14 09:42] LABS: Basophils % 0.5 % (0.1-2.0); Eosinophils # 0.1 K/mm3 (0.0-0.4); Eosinophils % 3.3 % (0.1-12.0); Hematocrit 37.9 % (37.0-47.0); Hemoglobin 11.4 g/dL (12.2-16.2); Lymphocytes # 1.3 K/mm3 (0.7-4.5); Lymphocytes % 32.7 % (10-50); Mean Corpuscular HGB Conc 30.2 g/dL (31.8-35.4); Mean Corpuscular Hemoglobin 29.9 pg (27.0-31.2); Mean Corpuscular Volume 99.2 fl (81-99); Mean Platelet Volume 7.5 fl (7.4-10.4); Monocytes # 0.1 K/mm3 (0.1-1.0); Monocytes % 3.4 % (1.7-9.3); Neutrophils # 2.4 K/mm3 (1.8-7.8); Neutrophils % 60.2 % (37.0-80.0); Platelet Count 240 K/mm3 (142-424); Red Blood Count 3.82 M/mm3 (4.20-5.40)
[2019-05-14 09:56] LABS: Alanine Aminotransferase 13 U/L (12-78); Albumin Level 3.1 gm/dL (3.4-5.0); Albumin/Globulin Ratio 0.9 (1.1-1.8); Alkaline Phosphatase 46 U/L (46-116); Anion Gap 10.3 mEq/L (5-15); Aspartate Amino Transferase 12 U/L (15-37); Bilirubin,Total 0.4 mg/dL (0.2-1.0); Blood Urea Nitrogen 21 mg/dL (7-18); Calcium 8.7 mg/dL (8.5-10.1); Carbon Dioxide 29 mmol/L (21.0-32.0); Chloride 103 mmol/L (98-107); Creatinine Clearance Estimated 61 mL/min (50-200); Creatinine,Serum 0.77 mg/dL (0.55-1.02); Estimated Glomerular Filt Rate 73 ml/min (>60); GFR (African American) 89 ML/MIN (>60); Globulin 3.4 gm/dl (1.3-3.2); Glucose 126 mg/dL (74-106); Potassium 3.3 mmoL/L (3.5-5.1); Sodium 139 mmol/L (136-145); Total Protein,Serum 6.5 gm/dL (6.4-8.2)
== END 2019-05-14 09:31 | disposition home or self-care (01) ==
LOC: INF 09:18
PROVIDERS: Visit Provider Physician Assistant
DX: C56.1 Malignant neoplasm of right ovary (principal)
CPT/HCPCS: 80053; 85025; J1642

== ENCOUNTER 2019-05-24 12:08 | Outpatient (CLI) | payer MEDICARE, OTHER, SELFPAY ==
[2019-05-24 12:09] VITALS: BMI 29.2
[2019-05-24 12:28] LABS: Basophils % 0.4 % (0.1-2.0); Eosinophils # 0.1 K/mm3 (0.0-0.4); Eosinophils % 1.7 % (0.1-12.0); Hematocrit 35.3 % (37.0-47.0); Hemoglobin 11.4 g/dL (12.2-16.2); Lymphocytes # 1.4 K/mm3 (0.7-4.5); Lymphocytes % 37.2 % (10-50); Mean Corpuscular HGB Conc 32.4 g/dL (31.8-35.4); Mean Corpuscular Hemoglobin 31.7 pg (27.0-31.2); Mean Platelet Volume 8.7 fl (7.4-10.4); Monocytes # 0.2 K/mm3 (0.1-1.0); Monocytes % 4.3 % (1.7-9.3); Neutrophils # 2.1 K/mm3 (1.8-7.8); Neutrophils % 56.5 % (37.0-80.0); Platelet Count 102 K/mm3 (142-424); Red Cell Distribution Width 13.8 % (11.5-17.5); White Blood Count 3.7 K/mm3 (4.8-10.8)
[2019-05-24 12:40] LABS: Alanine Aminotransferase 23 U/L (12-78); Albumin Level 3.3 gm/dL (3.4-5.0); Albumin/Globulin Ratio 0.9 (1.1-1.8); Alkaline Phosphatase 54 U/L (46-116); Anion Gap 11.4 mEq/L (5-15); Aspartate Amino Transferase 14 U/L (15-37); Bilirubin,Total 0.2 mg/dL (0.2-1.0); Blood Urea Nitrogen 23 mg/dL (7-18); Calcium 8.8 mg/dL (8.5-10.1); Carbon Dioxide 28 mmol/L (21.0-32.0); Chloride 104 mmol/L (98-107); Creatinine Clearance Estimated 59 mL/min (50-200); Creatinine,Serum 0.75 mg/dL (0.55-1.02); Estimated Glomerular Filt Rate 76 ml/min (>60); GFR (African American) 92 ML/MIN (>60); Globulin 3.6 gm/dl (1.3-3.2); Glucose 106 mg/dL (74-106); Potassium 3.4 mmoL/L (3.5-5.1); Sodium 140 mmol/L (136-145); Total Protein,Serum 6.9 gm/dL (6.4-8.2)
== END 2019-05-24 12:15 | disposition home or self-care (01) ==
LOC: INF 12:08
PROVIDERS: Visit Provider Physician Assistant
DX: C56.1 Malignant neoplasm of right ovary (principal); Z45.2 Encounter for adjustment and management of vascular access device
CPT/HCPCS: 80053; 85025; J1642

== ENCOUNTER 2019-05-30 10:59 | Outpatient (CLI) | payer MEDICARE, OTHER, SELFPAY ==
[2019-05-30 11:01] VITALS: BMI 30.4
[2019-05-30 11:22] LABS: Basophils % 0.7 % (0.1-2.0); Eosinophils # 0.1 K/mm3 (0.0-0.4); Eosinophils % 1.8 % (0.1-12.0); Hemoglobin 10.8 g/dL (12.2-16.2); Lymphocytes # 1.3 K/mm3 (0.7-4.5); Lymphocytes % 41.2 % (10-50); Mean Corpuscular HGB Conc 31.7 g/dL (31.8-35.4); Mean Corpuscular Hemoglobin 31.2 pg (27.0-31.2); Mean Corpuscular Volume 98.3 fl (81-99); Mean Platelet Volume 9.9 fl (7.4-10.4); Monocytes # 0.1 K/mm3 (0.1-1.0); Monocytes % 3.5 % (1.7-9.3); Neutrophils # 1.7 K/mm3 (1.8-7.8); Neutrophils % 52.8 % (37.0-80.0); Platelet Count 147 K/mm3 (142-424); Red Blood Count 3.46 M/mm3 (4.20-5.40); Red Cell Distribution Width 14.9 % (11.5-17.5); White Blood Count 3.2 K/mm3 (4.8-10.8)
[2019-05-30 11:34] LABS: Alanine Aminotransferase 19 U/L (12-78); Albumin Level 3.2 gm/dL (3.4-5.0); Albumin/Globulin Ratio 0.9 (1.1-1.8); Alkaline Phosphatase 54 U/L (46-116); Anion Gap 11.8 mEq/L (5-15); Aspartate Amino Transferase 11 U/L (15-37); Bilirubin,Total 0.3 mg/dL (0.2-1.0); Blood Urea Nitrogen 23 mg/dL (7-18); Calcium 9.2 mg/dL (8.5-10.1); Carbon Dioxide 26 mmol/L (21.0-32.0); Chloride 105 mmol/L (98-107); Creatinine Clearance Estimated 62 mL/min (50-200); Creatinine,Serum 0.66 mg/dL (0.55-1.02); Estimated Glomerular Filt Rate 88 ml/min (>60); GFR (African American) 106 ML/MIN (>60); Globulin 3.4 gm/dl (1.3-3.2); Glucose 100 mg/dL (74-106); Potassium 3.8 mmoL/L (3.5-5.1); Sodium 139 mmol/L (136-145); Total Protein,Serum 6.6 gm/dL (6.4-8.2)
== END 2019-05-30 11:15 | disposition home or self-care (01) ==
LOC: INF 10:59
PROVIDERS: Visit Provider Physician Assistant
DX: C56.1 Malignant neoplasm of right ovary (principal); Z45.2 Encounter for adjustment and management of vascular access device
CPT/HCPCS: 80053; 85025; J1642

== ENCOUNTER 2019-06-06 13:55 | Outpatient (CLI) | payer MEDICARE, OTHER, SELFPAY ==
[2019-06-06 13:59] VITALS: BMI 30.9
[2019-06-06 14:10] VITALS: BP 128/71; PULSE 74; RESP 18; O2SAT 97
[2019-06-06 14:28] LABS: Basophils % 0.1 % (0.1-2.0); Eosinophils % 0.1 % (0.1-12.0); Hematocrit 33.9 % (37.0-47.0); Hemoglobin 10.8 g/dL (12.2-16.2); Lymphocytes # 0.8 K/mm3 (0.7-4.5); Lymphocytes % 15.2 % (10-50); Mean Corpuscular HGB Conc 31.8 g/dL (31.8-35.4); Mean Corpuscular Hemoglobin 31.3 pg (27.0-31.2); Mean Corpuscular Volume 98.3 fl (81-99); Mean Platelet Volume 8.9 fl (7.4-10.4); Monocytes # 0.3 K/mm3 (0.1-1.0); Monocytes % 4.9 % (1.7-9.3); Neutrophils # 4.4 K/mm3 (1.8-7.8); Neutrophils % 79.7 % (37.0-80.0); Platelet Count 431 K/mm3 (142-424); Red Blood Count 3.45 M/mm3 (4.20-5.40); Red Cell Distribution Width 15.6 % (11.5-17.5); White Blood Count 5.5 K/mm3 (4.8-10.8)
[2019-06-06 14:37] LABS: Alanine Aminotransferase 17 U/L (12-78); Albumin Level 3.2 gm/dL (3.4-5.0); Albumin/Globulin Ratio 0.9 (1.1-1.8); Alkaline Phosphatase 58 U/L (46-116); Anion Gap 11.5 mEq/L (5-15); Aspartate Amino Transferase 10 U/L (15-37); Bilirubin,Total 0.3 mg/dL (0.2-1.0); Blood Urea Nitrogen 28 mg/dL (7-18); Calcium 8.5 mg/dL (8.5-10.1); Carbon Dioxide 26 mmol/L (21.0-32.0); Chloride 103 mmol/L (98-107); Creatinine Clearance Estimated 63 mL/min (50-200); Creatinine,Serum 0.65 mg/dL (0.55-1.02); Estimated Glomerular Filt Rate 89 ml/min (>60); GFR (African American) 108 ML/MIN (>60); Globulin 3.6 gm/dl (1.3-3.2); Glucose 107 mg/dL (74-106); Potassium 4.5 mmoL/L (3.5-5.1); Sodium 136 mmol/L (136-145); Total Protein,Serum 6.8 gm/dL (6.4-8.2)
== END 2019-06-06 14:20 | disposition home or self-care (01) ==
LOC: INF 14:02
PROVIDERS: Visit Provider Physician Assistant
DX: C56.1 Malignant neoplasm of right ovary (principal); Z45.2 Encounter for adjustment and management of vascular access device
CPT/HCPCS: 80053; 85025; J1642

== ENCOUNTER 2019-06-13 12:53 | Outpatient (CLI) | payer MEDICARE, OTHER, SELFPAY ==
[2019-06-13 12:57] VITALS: BMI 30.9
[2019-06-13 13:20] LABS: Basophils % 0.4 % (0.1-2.0); Eosinophils % 0.3 % (0.1-12.0); Hematocrit 32.2 % (37.0-47.0); Hemoglobin 10.5 g/dL (12.2-16.2); Lymphocytes # 1.8 K/mm3 (0.7-4.5); Lymphocytes % 35.6 % (10-50); Mean Corpuscular HGB Conc 32.7 g/dL (31.8-35.4); Mean Corpuscular Hemoglobin 31.8 pg (27.0-31.2); Mean Corpuscular Volume 97.1 fl (81-99); Mean Platelet Volume 7.7 fl (7.4-10.4); Monocytes # 0.3 K/mm3 (0.1-1.0); Neutrophils # 2.9 K/mm3 (1.8-7.8); Neutrophils % 57.6 % (37.0-80.0); Platelet Count 395 K/mm3 (142-424); Red Blood Count 3.32 M/mm3 (4.20-5.40); Red Cell Distribution Width 15.5 % (11.5-17.5)
[2019-06-13 13:39] LABS: Alanine Aminotransferase 19 U/L (12-78); Albumin Level 3.2 gm/dL (3.4-5.0); Albumin/Globulin Ratio 0.9 (1.1-1.8); Alkaline Phosphatase 59 U/L (46-116); Anion Gap 12.1 mEq/L (5-15); Aspartate Amino Transferase 16 U/L (15-37); Bilirubin,Total 0.3 mg/dL (0.2-1.0); Blood Urea Nitrogen 23 mg/dL (7-18); Calcium 8.4 mg/dL (8.5-10.1); Carbon Dioxide 25 mmol/L (21.0-32.0); Chloride 105 mmol/L (98-107); Creatinine Clearance Estimated 63 mL/min (50-200); Creatinine,Serum 0.91 mg/dL (0.55-1.02); Estimated Glomerular Filt Rate 61 ml/min (>60); GFR (African American) 73 ML/MIN (>60); Globulin 3.5 gm/dl (1.3-3.2); Glucose 89 mg/dL (74-106); Potassium 4.1 mmoL/L (3.5-5.1); Sodium 138 mmol/L (136-145); Total Protein,Serum 6.7 gm/dL (6.4-8.2)
== END 2019-06-13 13:10 | disposition home or self-care (01) ==
LOC: INF 12:53
PROVIDERS: Visit Provider Physician Assistant
DX: C56.1 Malignant neoplasm of right ovary (principal); Z45.2 Encounter for adjustment and management of vascular access device
CPT/HCPCS: 80053; 85025; J1642

== ENCOUNTER 2019-06-19 13:00 | Outpatient (CLI) | payer MEDICARE, OTHER, SELFPAY ==
[2019-06-19 13:07] VITALS: BMI 30.9
[2019-06-19 13:29] LABS: Basophils % 0.2 % (0.1-2.0); Eosinophils % 0.6 % (0.1-12.0); Hematocrit 30.1 % (37.0-47.0); Hemoglobin 10.1 g/dL (12.2-16.2); Lymphocytes # 1.6 K/mm3 (0.7-4.5); Lymphocytes % 37.7 % (10-50); Mean Corpuscular HGB Conc 33.6 g/dL (31.8-35.4); Mean Corpuscular Hemoglobin 32.8 pg (27.0-31.2); Mean Corpuscular Volume 97.7 fl (81-99); Mean Platelet Volume 8.1 fl (7.4-10.4); Monocytes # 0.2 K/mm3 (0.1-1.0); Monocytes % 5.8 % (1.7-9.3); Neutrophils # 2.3 K/mm3 (1.8-7.8); Neutrophils % 55.6 % (37.0-80.0); Platelet Count 120 K/mm3 (142-424); Red Blood Count 3.08 M/mm3 (4.20-5.40); Red Cell Distribution Width 17.1 % (11.5-17.5); White Blood Count 4.2 K/mm3 (4.8-10.8)
[2019-06-19 13:41] LABS: Alanine Aminotransferase 20 U/L (12-78); Albumin Level 3.2 gm/dL (3.4-5.0); Albumin/Globulin Ratio 0.9 (1.1-1.8); Alkaline Phosphatase 54 U/L (46-116); Anion Gap 10.9 mEq/L (5-15); Aspartate Amino Transferase 15 U/L (15-37); Bilirubin,Total 0.3 mg/dL (0.2-1.0); Blood Urea Nitrogen 23 mg/dL (7-18); Calcium 9.1 mg/dL (8.5-10.1); Carbon Dioxide 26 mmol/L (21.0-32.0); Chloride 106 mmol/L (98-107); Creatinine Clearance Estimated 63 mL/min (50-200); Creatinine,Serum 0.78 mg/dL (0.55-1.02); Estimated Glomerular Filt Rate 72 ml/min (>60); GFR (African American) 88 ML/MIN (>60); Globulin 3.7 gm/dl (1.3-3.2); Glucose 87 mg/dL (74-106); Potassium 3.9 mmoL/L (3.5-5.1); Sodium 139 mmol/L (136-145); Total Protein,Serum 6.9 gm/dL (6.4-8.2)
== END 2019-06-19 13:25 | disposition home or self-care (01) ==
LOC: INF 13:05
PROVIDERS: Visit Provider Physician Assistant
DX: C56.1 Malignant neoplasm of right ovary (principal); Z45.2 Encounter for adjustment and management of vascular access device
CPT/HCPCS: 80053; 85025; J1642

== ENCOUNTER 2019-06-26 12:51 | Outpatient (CLI) | payer MEDICARE, OTHER, SELFPAY ==
[2019-06-26 12:53] VITALS: BMI 30.9
[2019-06-26 13:36] LABS: Alanine Aminotransferase 19 U/L (12-78); Albumin/Globulin Ratio 0.9 (1.1-1.8); Alkaline Phosphatase 45 U/L (46-116); Anion Gap 13.7 mEq/L (5-15); Aspartate Amino Transferase 14 U/L (15-37); Bilirubin,Total 0.3 mg/dL (0.2-1.0); Blood Urea Nitrogen 23 mg/dL (7-18); Calcium 8.8 mg/dL (8.5-10.1); Carbon Dioxide 26 mmol/L (21.0-32.0); Chloride 106 mmol/L (98-107); Creatinine Clearance Estimated 63 mL/min (50-200); Creatinine,Serum 0.91 mg/dL (0.55-1.02); Estimated Glomerular Filt Rate 61 ml/min (>60); GFR (African American) 73 ML/MIN (>60); Globulin 3.3 gm/dl (1.3-3.2); Glucose 82 mg/dL (74-106); Potassium 3.7 mmoL/L (3.5-5.1); Sodium 142 mmol/L (136-145); Total Protein,Serum 6.3 gm/dL (6.4-8.2)
[2019-06-26 13:41] LABS: Basophils % 0.1 % (0.1-2.0); Eosinophils % 0.7 % (0.1-12.0); Hematocrit 30.9 % (37.0-47.0); Hemoglobin 9.7 g/dL (12.2-16.2); Lymphocytes % 38.1 % (10-50); Mean Corpuscular HGB Conc 31.4 g/dL (31.8-35.4); Mean Corpuscular Hemoglobin 32.5 pg (27.0-31.2); Mean Corpuscular Volume 103.6 fl (81-99); Mean Platelet Volume 7.9 fl (7.4-10.4); Monocytes % 6.4 % (1.7-9.3); Neutrophils # 2.4 K/mm3 (1.8-7.8); Neutrophils % 54.6 % (37.0-80.0); Platelet Count 195 K/mm3 (142-424); Red Blood Count 2.98 M/mm3 (4.20-5.40); Red Cell Distribution Width 18.3 % (11.5-17.5); White Blood Count 4.4 K/mm3 (4.8-10.8)
[2019-06-26 13:42] LABS: Lymphocytes # 1.7 K/mm3 (0.7-4.5); Monocytes # 0.3 K/mm3 (0.1-1.0)
== END 2019-06-26 13:20 | disposition home or self-care (01) ==
LOC: INF 12:51
PROVIDERS: Visit Provider Physician Assistant
DX: C56.1 Malignant neoplasm of right ovary (principal); Z45.2 Encounter for adjustment and management of vascular access device
CPT/HCPCS: 80053; 85025; J1642

== ENCOUNTER 2019-07-03 12:59 | Outpatient (CLI) | payer MEDICARE, OTHER, SELFPAY ==
[2019-07-03 13:02] VITALS: BMI 30.9
[2019-07-03 13:19] LABS: Basophils % 0.1 % (0.1-2.0); Eosinophils % 0.6 % (0.1-12.0); Hematocrit 31.9 % (37.0-47.0); Hemoglobin 9.7 g/dL (12.2-16.2); Lymphocytes # 1.4 K/mm3 (0.7-4.5); Lymphocytes % 32.7 % (10-50); Mean Corpuscular HGB Conc 30.4 g/dL (31.8-35.4); Mean Corpuscular Hemoglobin 32.4 pg (27.0-31.2); Mean Corpuscular Volume 106.5 fl (81-99); Mean Platelet Volume 9.1 fl (7.4-10.4); Monocytes # 0.3 K/mm3 (0.1-1.0); Monocytes % 5.9 % (1.7-9.3); Neutrophils # 2.6 K/mm3 (1.8-7.8); Neutrophils % 60.8 % (37.0-80.0); Platelet Count 352 K/mm3 (142-424); Red Cell Distribution Width 19.2 % (11.5-17.5); White Blood Count 4.2 K/mm3 (4.8-10.8)
[2019-07-03 13:32] LABS: Alanine Aminotransferase 15 U/L (12-78); Albumin Level 3.2 gm/dL (3.4-5.0); Albumin/Globulin Ratio 0.9 (1.1-1.8); Alkaline Phosphatase 46 U/L (46-116); Anion Gap 11.8 mEq/L (5-15); Aspartate Amino Transferase 15 U/L (15-37); Bilirubin,Total 0.2 mg/dL (0.2-1.0); Blood Urea Nitrogen 27 mg/dL (7-18); Carbon Dioxide 27 mmol/L (21.0-32.0); Chloride 106 mmol/L (98-107); Creatinine Clearance Estimated 63 mL/min (50-200); Creatinine,Serum 0.91 mg/dL (0.55-1.02); Estimated Glomerular Filt Rate 61 ml/min (>60); GFR (African American) 73 ML/MIN (>60); Globulin 3.5 gm/dl (1.3-3.2); Glucose 92 mg/dL (74-106); Potassium 3.8 mmoL/L (3.5-5.1); Sodium 141 mmol/L (136-145); Total Protein,Serum 6.7 gm/dL (6.4-8.2)
== END 2019-07-03 13:11 | disposition home or self-care (01) ==
LOC: INF 12:59
PROVIDERS: Referring Provider Obstetrics & Gynecology Gynecologic Oncology
DX: C56.1 Malignant neoplasm of right ovary (principal); Z45.2 Encounter for adjustment and management of vascular access device
CPT/HCPCS: 80053; 85025; J1642

== ENCOUNTER 2019-07-10 13:00 | Outpatient (CLI) | payer MEDICARE, OTHER, SELFPAY ==
[2019-07-10 13:02] VITALS: BMI 30.9
[2019-07-10 13:25] LABS: Basophils % 0.4 % (0.1-2.0); Eosinophils % 1.1 % (0.1-12.0); Lymphocytes # 1.4 K/mm3 (0.7-4.5); Lymphocytes % 40.3 % (10-50); Mean Corpuscular HGB Conc 32.2 g/dL (31.8-35.4); Mean Corpuscular Hemoglobin 33.1 pg (27.0-31.2); Mean Corpuscular Volume 102.7 fl (81-99); Monocytes # 0.2 K/mm3 (0.1-1.0); Monocytes % 5.7 % (1.7-9.3); Neutrophils # 1.8 K/mm3 (1.8-7.8); Neutrophils % 52.6 % (37.0-80.0); Platelet Count 219 K/mm3 (142-424); Red Blood Count 3.02 M/mm3 (4.20-5.40); White Blood Count 3.4 K/mm3 (4.8-10.8)
[2019-07-10 13:38] LABS: Alanine Aminotransferase 19 U/L (12-78); Albumin Level 3.3 gm/dL (3.4-5.0); Albumin/Globulin Ratio 0.9 (1.1-1.8); Alkaline Phosphatase 43 U/L (46-116); Anion Gap 14.8 mEq/L (5-15); Aspartate Amino Transferase 11 U/L (15-37); Bilirubin,Total 0.3 mg/dL (0.2-1.0); Blood Urea Nitrogen 18 mg/dL (7-18); Calcium 8.7 mg/dL (8.5-10.1); Carbon Dioxide 25 mmol/L (21.0-32.0); Chloride 106 mmol/L (98-107); Creatinine Clearance Estimated 63 mL/min (50-200); Creatinine,Serum 0.83 mg/dL (0.55-1.02); Estimated Glomerular Filt Rate 67 ml/min (>60); GFR (African American) 82 ML/MIN (>60); Globulin 3.5 gm/dl (1.3-3.2); Glucose 107 mg/dL (74-106); Potassium 3.8 mmoL/L (3.5-5.1); Sodium 142 mmol/L (136-145); Total Protein,Serum 6.8 gm/dL (6.4-8.2)
== END 2019-07-10 13:15 | disposition home or self-care (01) ==
LOC: INF 13:01
PROVIDERS: Visit Provider Physician Assistant
DX: C56.1 Malignant neoplasm of right ovary (principal)
CPT/HCPCS: 80053; 85025; J1642

== ENCOUNTER 2019-07-17 12:25 | Outpatient (CLI) | payer MEDICARE, OTHER, SELFPAY ==
[2019-07-17 12:34] VITALS: BMI 31.3
[2019-07-17 12:57] LABS: Basophils % 0.4 % (0.1-2.0); Eosinophils % 0.2 % (0.1-12.0); Hematocrit 32.6 % (37.0-47.0); Hemoglobin 10.3 g/dL (12.2-16.2); Lymphocytes # 1.7 K/mm3 (0.7-4.5); Lymphocytes % 31.6 % (10-50); Mean Corpuscular HGB Conc 31.7 g/dL (31.8-35.4); Mean Corpuscular Hemoglobin 34.1 pg (27.0-31.2); Mean Corpuscular Volume 107.7 fl (81-99); Mean Platelet Volume 9.7 fl (7.4-10.4); Monocytes # 0.3 K/mm3 (0.1-1.0); Monocytes % 4.6 % (1.7-9.3); Neutrophils # 3.4 K/mm3 (1.8-7.8); Neutrophils % 63.3 % (37.0-80.0); Platelet Count 133 K/mm3 (142-424); Red Blood Count 3.03 M/mm3 (4.20-5.40); Red Cell Distribution Width 19.4 % (11.5-17.5); White Blood Count 5.4 K/mm3 (4.8-10.8)
[2019-07-17 13:20] LABS: Alanine Aminotransferase 18 U/L (12-78); Albumin Level 3.6 gm/dL (3.4-5.0); Albumin/Globulin Ratio 1.1 (1.1-1.8); Alkaline Phosphatase 41 U/L (46-116); Anion Gap 14.2 mEq/L (5-15); Aspartate Amino Transferase 10 U/L (15-37); Bilirubin,Total 0.4 mg/dL (0.2-1.0); Blood Urea Nitrogen 28 mg/dL (7-18); Carbon Dioxide 26 mmol/L (21.0-32.0); Chloride 104 mmol/L (98-107); Creatinine Clearance Estimated 64 mL/min (50-200); Creatinine,Serum 0.88 mg/dL (0.55-1.02); Estimated Glomerular Filt Rate 63 ml/min (>60); GFR (African American) 76 ML/MIN (>60); Globulin 3.4 gm/dl (1.3-3.2); Glucose 132 mg/dL (74-106); Potassium 3.2 mmoL/L (3.5-5.1); Sodium 141 mmol/L (136-145)
== END 2019-07-17 12:55 | disposition home or self-care (01) ==
LOC: INF 12:32
PROVIDERS: Visit Provider Physician Assistant
DX: C56.1 Malignant neoplasm of right ovary (principal); Z45.2 Encounter for adjustment and management of vascular access device
CPT/HCPCS: 80053; 85025; J1642

== ENCOUNTER 2019-07-25 11:56 | Outpatient (CLI) | payer MEDICARE, OTHER, SELFPAY ==
[2019-07-25 11:57] VITALS: BMI 30.9
[2019-07-25 12:32] LABS: Basophils % 0.4 % (0.1-2.0); Eosinophils % 0.6 % (0.1-12.0); Hematocrit 31.4 % (37.0-47.0); Hemoglobin 10.1 g/dL (12.2-16.2); Lymphocytes # 1.3 K/mm3 (0.7-4.5); Lymphocytes % 39.4 % (10-50); Mean Corpuscular HGB Conc 32.2 g/dL (31.8-35.4); Mean Corpuscular Hemoglobin 34.3 pg (27.0-31.2); Mean Corpuscular Volume 106.5 fl (81-99); Mean Platelet Volume 8.1 fl (7.4-10.4); Monocytes # 0.1 K/mm3 (0.1-1.0); Monocytes % 2.6 % (1.7-9.3); Neutrophils # 1.9 K/mm3 (1.8-7.8); Neutrophils % 57.1 % (37.0-80.0); Platelet Count 169 K/mm3 (142-424); Red Blood Count 2.95 M/mm3 (4.20-5.40); Red Cell Distribution Width 18.9 % (11.5-17.5); White Blood Count 3.2 K/mm3 (4.8-10.8)
[2019-07-25 12:42] LABS: Alanine Aminotransferase 19 U/L (12-78); Albumin Level 3.3 gm/dL (3.4-5.0); Albumin/Globulin Ratio 0.9 (1.1-1.8); Alkaline Phosphatase 47 U/L (46-116); Anion Gap 15.6 mEq/L (5-15); Aspartate Amino Transferase 14 U/L (15-37); Bilirubin,Total 0.4 mg/dL (0.2-1.0); Blood Urea Nitrogen 17 mg/dL (7-18); Calcium 8.6 mg/dL (8.5-10.1); Carbon Dioxide 25 mmol/L (21.0-32.0); Chloride 105 mmol/L (98-107); Creatinine Clearance Estimated 63 mL/min (50-200); Creatinine,Serum 0.66 mg/dL (0.55-1.02); Estimated Glomerular Filt Rate 88 ml/min (>60); GFR (African American) 106 ML/MIN (>60); Globulin 3.5 gm/dl (1.3-3.2); Glucose 136 mg/dL (74-106); Potassium 3.6 mmoL/L (3.5-5.1); Sodium 142 mmol/L (136-145); Total Protein,Serum 6.8 gm/dL (6.4-8.2)
== END 2019-07-25 12:30 | disposition home or self-care (01) ==
LOC: INF 11:56
PROVIDERS: Visit Provider Physician Assistant
DX: C56.1 Malignant neoplasm of right ovary (principal); Z45.2 Encounter for adjustment and management of vascular access device
CPT/HCPCS: 80053; 85025; J1642

== ENCOUNTER 2019-07-30 11:30 | Outpatient (CLI) | payer MEDICARE, OTHER, SELFPAY ==
[2019-07-30 11:33] VITALS: BMI 30.9
[2019-07-30 11:58] LABS: Basophils % 0.3 % (0.1-2.0); Hematocrit 31.7 % (37.0-47.0); Hemoglobin 9.7 g/dL (12.2-16.2); Lymphocytes # 0.9 K/mm3 (0.7-4.5); Lymphocytes % 33.2 % (10-50); Mean Corpuscular HGB Conc 30.6 g/dL (31.8-35.4); Mean Corpuscular Hemoglobin 33.4 pg (27.0-31.2); Mean Corpuscular Volume 109.2 fl (81-99); Mean Platelet Volume 9.2 fl (7.4-10.4); Monocytes # 0.1 K/mm3 (0.1-1.0); Neutrophils # 1.7 K/mm3 (1.8-7.8); Neutrophils % 61.5 % (37.0-80.0); Platelet Count 153 K/mm3 (142-424); Red Cell Distribution Width 20.2 % (11.5-17.5); White Blood Count 2.8 K/mm3 (4.8-10.8)
[2019-07-30 12:06] LABS: Alanine Aminotransferase 16 U/L (12-78); Albumin Level 3.4 gm/dL (3.4-5.0); Alkaline Phosphatase 51 U/L (46-116); Anion Gap 16.8 mEq/L (5-15); Aspartate Amino Transferase 9 U/L (15-37); Bilirubin,Total 0.4 mg/dL (0.2-1.0); Blood Urea Nitrogen 26 mg/dL (7-18); Calcium 9.2 mg/dL (8.5-10.1); Carbon Dioxide 25 mmol/L (21.0-32.0); Chloride 102 mmol/L (98-107); Creatinine Clearance Estimated 63 mL/min (50-200); Estimated Glomerular Filt Rate 54 ml/min (>60); GFR (African American) 66 ML/MIN (>60); Globulin 3.3 gm/dl (1.3-3.2); Glucose 130 mg/dL (74-106); Potassium 3.8 mmoL/L (3.5-5.1); Sodium 140 mmol/L (136-145); Total Protein,Serum 6.7 gm/dL (6.4-8.2)
== END 2019-07-30 11:50 | disposition home or self-care (01) ==
LOC: INF 11:30
PROVIDERS: Visit Provider Physician Assistant
DX: C56.1 Malignant neoplasm of right ovary (principal); Z45.2 Encounter for adjustment and management of vascular access device
CPT/HCPCS: 80053; 85025; J1642

== ENCOUNTER 2019-08-07 11:28 | Outpatient (CLI) | payer MEDICARE, OTHER, SELFPAY ==
[2019-08-07 11:29] VITALS: BMI 30.9
[2019-08-07 11:50] LABS: Basophils % 0.4 % (0.1-2.0); Eosinophils % 0.4 % (0.1-12.0); Hemoglobin 9.2 g/dL (12.2-16.2); Lymphocytes # 1.5 K/mm3 (0.7-4.5); Lymphocytes % 36.3 % (10-50); Mean Corpuscular HGB Conc 32.8 g/dL (31.8-35.4); Mean Corpuscular Hemoglobin 34.7 pg (27.0-31.2); Mean Corpuscular Volume 105.8 fl (81-99); Mean Platelet Volume 9.8 fl (7.4-10.4); Monocytes # 0.2 K/mm3 (0.1-1.0); Monocytes % 5.6 % (1.7-9.3); Neutrophils # 2.3 K/mm3 (1.8-7.8); Neutrophils % 57.4 % (37.0-80.0); Platelet Count 170 K/mm3 (142-424); Red Blood Count 2.65 M/mm3 (4.20-5.40); Red Cell Distribution Width 17.9 % (11.5-17.5)
[2019-08-07 12:01] LABS: Alanine Aminotransferase 15 U/L (12-78); Albumin/Globulin Ratio 0.8 (1.1-1.8); Alkaline Phosphatase 49 U/L (46-116); Anion Gap 14.8 mEq/L (5-15); Aspartate Amino Transferase 8 U/L (15-37); Bilirubin,Total 0.3 mg/dL (0.2-1.0); Blood Urea Nitrogen 23 mg/dL (7-18); Calcium 8.5 mg/dL (8.5-10.1); Carbon Dioxide 23 mmol/L (21.0-32.0); Chloride 104 mmol/L (98-107); Creatinine Clearance Estimated 63 mL/min (50-200); Creatinine,Serum 0.91 mg/dL (0.55-1.02); Estimated Glomerular Filt Rate 61 ml/min (>60); GFR (African American) 73 ML/MIN (>60); Globulin 3.6 gm/dl (1.3-3.2); Glucose 129 mg/dL (74-106); Potassium 3.8 mmoL/L (3.5-5.1); Sodium 138 mmol/L (136-145); Total Protein,Serum 6.6 gm/dL (6.4-8.2)
== END 2019-08-07 11:45 | disposition home or self-care (01) ==
LOC: INF 11:28
PROVIDERS: Visit Provider Physician Assistant
DX: C56.1 Malignant neoplasm of right ovary (principal); Z45.2 Encounter for adjustment and management of vascular access device
CPT/HCPCS: 80053; 85025; J1642

== ENCOUNTER 2019-08-16 10:55 | Outpatient (CLI) | payer MEDICARE, OTHER, SELFPAY ==
[2019-08-16 10:57] VITALS: BMI 30.9
[2019-08-16 11:15] LABS: Basophils % 0.3 % (0.1-2.0); Eosinophils % 0.6 % (0.1-12.0); Hemoglobin 8.5 g/dL (12.2-16.2); Lymphocytes # 1.1 K/mm3 (0.7-4.5); Lymphocytes % 44.4 % (10-50); Mean Corpuscular Hemoglobin 33.8 pg (27.0-31.2); Mean Corpuscular Volume 112.6 fl (81-99); Mean Platelet Volume 9.7 fl (7.4-10.4); Monocytes # 0.1 K/mm3 (0.1-1.0); Monocytes % 4.7 % (1.7-9.3); Neutrophils # 1.3 K/mm3 (1.8-7.8); Platelet Count 187 K/mm3 (142-424); Red Cell Distribution Width 18.8 % (11.5-17.5); White Blood Count 2.6 K/mm3 (4.8-10.8)
[2019-08-16 11:21] LABS: Hematocrit 27.9 % (37.0-47.0)
[2019-08-16 12:01] LABS: Alanine Aminotransferase 14 U/L (12-78); Albumin Level 2.8 gm/dL (3.4-5.0); Albumin/Globulin Ratio 0.8 (1.1-1.8); Alkaline Phosphatase 48 U/L (46-116); Anion Gap 13.6 mEq/L (5-15); Aspartate Amino Transferase 10 U/L (15-37); Bilirubin,Total 0.2 mg/dL (0.2-1.0); Blood Urea Nitrogen 20 mg/dL (7-18); Calcium 9.1 mg/dL (8.5-10.1); Carbon Dioxide 26 mmol/L (21.0-32.0); Chloride 102 mmol/L (98-107); Creatinine Clearance Estimated 63 mL/min (50-200); Creatinine,Serum 0.88 mg/dL (0.55-1.02); Estimated Glomerular Filt Rate 63 ml/min (>60); GFR (African American) 76 ML/MIN (>60); Globulin 3.7 gm/dl (1.3-3.2); Glucose 137 mg/dL (74-106); Potassium 3.6 mmoL/L (3.5-5.1); Sodium 138 mmol/L (136-145); Total Protein,Serum 6.5 gm/dL (6.4-8.2)
== END 2019-08-16 11:05 | disposition home or self-care (01) ==
LOC: INF 10:55
PROVIDERS: Visit Provider Physician Assistant
DX: C56.1 Malignant neoplasm of right ovary (principal); Z45.2 Encounter for adjustment and management of vascular access device
CPT/HCPCS: 80053; 85025; J1642

== ENCOUNTER 2019-08-23 10:58 | Outpatient (CLI) | payer MEDICARE, OTHER, SELFPAY ==
[2019-08-23 11:00] VITALS: BMI 30.6
[2019-08-23 11:10] LABS: Basophils % 0.4 % (0.1-2.0); Eosinophils % 0.6 % (0.1-12.0); Lymphocytes # 1.6 K/mm3 (0.7-4.5); Lymphocytes % 47.5 % (10-50); Mean Corpuscular HGB Conc 31.5 g/dL (31.8-35.4); Mean Corpuscular Hemoglobin 35.3 pg (27.0-31.2); Mean Platelet Volume 10.2 fl (7.4-10.4); Monocytes # 0.2 K/mm3 (0.1-1.0); Monocytes % 5.2 % (1.7-9.3); Neutrophils # 1.5 K/mm3 (1.8-7.8); Neutrophils % 46.3 % (37.0-80.0); Platelet Count 112 K/mm3 (142-424); Red Blood Count 2.62 M/mm3 (4.20-5.40); Red Cell Distribution Width 18.1 % (11.5-17.5); White Blood Count 3.3 K/mm3 (4.8-10.8)
[2019-08-23 11:14] LABS: Hemoglobin 9.2 g/dL (12.2-16.2)
[2019-08-23 11:23] LABS: Alanine Aminotransferase 17 U/L (12-78); Albumin Level 3.4 gm/dL (3.4-5.0); Alkaline Phosphatase 45 U/L (46-116); Anion Gap 14.9 mEq/L (5-15); Aspartate Amino Transferase 16 U/L (15-37); Bilirubin,Total 0.3 mg/dL (0.2-1.0); Blood Urea Nitrogen 17 mg/dL (7-18); Calcium 9.2 mg/dL (8.5-10.1); Carbon Dioxide 26 mmol/L (21.0-32.0); Chloride 104 mmol/L (98-107); Creatinine Clearance Estimated 62 mL/min (50-200); Estimated Glomerular Filt Rate 61 ml/min (>60); GFR (African American) 74 ML/MIN (>60); Globulin 3.5 gm/dl (1.3-3.2); Glucose 96 mg/dL (74-106); Potassium 3.9 mmoL/L (3.5-5.1); Sodium 141 mmol/L (136-145); Total Protein,Serum 6.9 gm/dL (6.4-8.2)
== END 2019-08-23 11:05 | disposition home or self-care (01) ==
LOC: INF 10:58
PROVIDERS: Visit Provider Physician Assistant
DX: C56.1 Malignant neoplasm of right ovary (principal); Z45.2 Encounter for adjustment and management of vascular access device
CPT/HCPCS: 80053; 85025; J1642

== ENCOUNTER 2019-08-29 10:54 | Outpatient (CLI) | payer MEDICARE, OTHER, SELFPAY ==
[2019-08-29 10:56] VITALS: BMI 30.9
[2019-08-29 11:23] LABS: Basophils % 0.1 % (0.1-2.0); Eosinophils % 0.4 % (0.1-12.0); Lymphocytes # 1.5 K/mm3 (0.7-4.5); Mean Corpuscular HGB Conc 32.2 g/dL (31.8-35.4); Mean Corpuscular Hemoglobin 35.6 pg (27.0-31.2); Mean Corpuscular Volume 110.3 fl (81-99); Mean Platelet Volume 9.5 fl (7.4-10.4); Monocytes # 0.3 K/mm3 (0.1-1.0); Monocytes % 4.8 % (1.7-9.3); Neutrophils # 3.9 K/mm3 (1.8-7.8); Neutrophils % 68.7 % (37.0-80.0); Platelet Count 134 K/mm3 (142-424); Red Blood Count 2.65 M/mm3 (4.20-5.40); Red Cell Distribution Width 17.4 % (11.5-17.5); White Blood Count 5.7 K/mm3 (4.8-10.8)
[2019-08-29 11:28] LABS: Hematocrit 29.1 % (37.0-47.0); Hemoglobin 9.4 g/dL (12.2-16.2)
[2019-08-29 11:45] LABS: Alanine Aminotransferase 20 U/L (12-78); Albumin Level 3.2 gm/dL (3.4-5.0); Albumin/Globulin Ratio 0.9 (1.1-1.8); Alkaline Phosphatase 43 U/L (46-116); Anion Gap 13.6 mEq/L (5-15); Aspartate Amino Transferase 13 U/L (15-37); Bilirubin,Total 0.4 mg/dL (0.2-1.0); Blood Urea Nitrogen 27 mg/dL (7-18); Calcium 9.1 mg/dL (8.5-10.1); Carbon Dioxide 26 mmol/L (21.0-32.0); Chloride 104 mmol/L (98-107); Creatinine Clearance Estimated 63 mL/min (50-200); Creatinine,Serum 0.92 mg/dL (0.55-1.02); Estimated Glomerular Filt Rate 60 ml/min (>60); GFR (African American) 72 ML/MIN (>60); Globulin 3.5 gm/dl (1.3-3.2); Glucose 112 mg/dL (74-106); Potassium 3.6 mmoL/L (3.5-5.1); Sodium 140 mmol/L (136-145); Total Protein,Serum 6.7 gm/dL (6.4-8.2)
== END 2019-08-29 11:05 | disposition home or self-care (01) ==
LOC: INF 10:54
PROVIDERS: Visit Provider Physician Assistant
DX: C56.1 Malignant neoplasm of right ovary (principal)
CPT/HCPCS: 80053; 85025; J1642

== ENCOUNTER 2019-09-06 11:04 | Outpatient (CLI) | payer MEDICARE, OTHER, SELFPAY ==
[2019-09-06 11:00] VITALS: BP 108/71; PULSE 68; RESP 20; TEMP 36.4; O2SAT 95
[2019-09-06 11:06] VITALS: BMI 30.6
[2019-09-06 11:33] LABS: Basophils % 0.1 % (0.1-2.0); Eosinophils % 0.5 % (0.1-12.0); Lymphocytes # 0.4 K/mm3 (0.7-4.5); Lymphocytes % 9.6 % (10-50); Mean Corpuscular HGB Conc 31.4 g/dL (31.8-35.4); Mean Corpuscular Hemoglobin 36.5 pg (27.0-31.2); Mean Corpuscular Volume 116.3 fl (81-99); Mean Platelet Volume 8.3 fl (7.4-10.4); Monocytes # 0.1 K/mm3 (0.1-1.0); Monocytes % 2.1 % (1.7-9.3); Neutrophils # 3.7 K/mm3 (1.8-7.8); Neutrophils % 87.8 % (37.0-80.0); Platelet Count 113 K/mm3 (142-424); Red Blood Count 2.07 M/mm3 (4.20-5.40); Red Cell Distribution Width 17.4 % (11.5-17.5); White Blood Count 4.3 K/mm3 (4.8-10.8)
[2019-09-06 11:40] LABS: Hemoglobin 7.5 g/dL (12.2-16.2)
[2019-09-06 11:41] LABS: MANUAL DIFFERENTIAL MANUAL DIFFERENTIAL (MANUAL DIFF)
[2019-09-06 11:46] LABS: Alanine Aminotransferase 510 U/L (12-78); Albumin Level 3.1 gm/dL (3.4-5.0); Albumin/Globulin Ratio 0.8 (1.1-1.8); Alkaline Phosphatase 98 U/L (46-116); Anion Gap 15.2 mEq/L (5-15); Aspartate Amino Transferase 245 U/L (15-37); Bilirubin,Total 0.7 mg/dL (0.2-1.0); Blood Urea Nitrogen 22 mg/dL (7-18); Calcium 8.8 mg/dL (8.5-10.1); Carbon Dioxide 24 mmol/L (21.0-32.0); Chloride 102 mmol/L (98-107); Creatinine Clearance Estimated 55 mL/min (50-200); Creatinine,Serum 1.12 mg/dL (0.55-1.02); Estimated Glomerular Filt Rate 48 ml/min (>60); GFR (African American) 58 ML/MIN (>60); Globulin 3.8 gm/dl (1.3-3.2); Glucose 179 mg/dL (74-106); Potassium 3.2 mmoL/L (3.5-5.1); Sodium 138 mmol/L (136-145); Total Protein,Serum 6.9 gm/dL (6.4-8.2)
[2019-09-06 12:00] LABS: Acanthocytes 1+; Anisocytosis 2+; Eosinophils % 1 % (0-3); Lymphocytes % 8 % (10-50); Macrocytosis 2+; Monocytes % 1 % (2-9); Neutrophils % 90 % (42-76); Platelet Estimate Slight Decrease; Poikilocytosis 1+; Total Cells Counted 100
--- NOTE | 2019-09-06 13:44 | PC.NURSE ---
PT CAME IN TODAY AT 1100 TO GET WEEKLY LABS PER STANDING ORDER. PT HAD NO COMPLAINTS WHILE HERE. PT DID APPEAR WEAK AND COLOR WAS SLIGHTLY JAUNDICED. THE PATIENT GETS THE LABS FROM [facility] AND WE FAX THE RESULTS TO [facility] ONCE THE RESULTS ARE BACK. CRITICAL RESULTS WERE CALLED TO MICHAEL AT [facility]. THE NURSE THERE STATED SHE WAS GOING TO CALL THE PATIENT AND HAVE HER COME IN TO [facility] TO BE EVALUATED. HER HGB WAS 7.5 AND HER LIVER ENZYMES WERE TREMENDOUSLY INCREASED SINCE LAST WEEK. NURSE CALLED BACK AGAIN AND TALKED WITH US HERE AND TOLD THE PATIENT TO GO TO ER TO GET EVALUATED.
== END 2019-09-06 11:30 | disposition home or self-care (01) ==
LOC: INF 11:04
PROVIDERS: Visit Provider Physician Assistant
DX: C56.1 Malignant neoplasm of right ovary (principal)
CPT/HCPCS: 80053; 85007; 85025; J1642

== ENCOUNTER 2019-09-09 12:13 | Outpatient (CLI) | payer MEDICARE, OTHER, SELFPAY ==
[2019-09-09 12:16] VITALS: BMI 30.6
[2019-09-09 12:35] LABS: Basophils % 0.6 % (0.1-2.0); Eosinophils % 0.9 % (0.1-12.0); Hematocrit 27.2 % (37.0-47.0); Hemoglobin 8.5 g/dL (12.2-16.2); Lymphocytes # 1.4 K/mm3 (0.7-4.5); Lymphocytes % 50.1 % (10-50); Mean Corpuscular HGB Conc 31.2 g/dL (31.8-35.4); Mean Corpuscular Hemoglobin 36.2 pg (27.0-31.2); Mean Corpuscular Volume 116.3 fl (81-99); Mean Platelet Volume 9.3 fl (7.4-10.4); Monocytes # 0.1 K/mm3 (0.1-1.0); Monocytes % 4.3 % (1.7-9.3); Neutrophils # 1.2 K/mm3 (1.8-7.8); Neutrophils % 44.1 % (37.0-80.0); Platelet Count 102 K/mm3 (142-424); Red Blood Count 2.34 M/mm3 (4.20-5.40); Red Cell Distribution Width 16.9 % (11.5-17.5); White Blood Count 2.8 K/mm3 (4.8-10.8)
[2019-09-09 12:37] LABS: MANUAL DIFFERENTIAL MANUAL DIFFERENTIAL (MANUAL DIFF)
[2019-09-09 12:48] LABS: Alanine Aminotransferase 137 U/L (12-78); Albumin Level 2.9 gm/dL (3.4-5.0); Albumin/Globulin Ratio 0.8 (1.1-1.8); Alkaline Phosphatase 79 U/L (46-116); Anion Gap 16.8 mEq/L (5-15); Aspartate Amino Transferase 22 U/L (15-37); Bilirubin,Total 0.4 mg/dL (0.2-1.0); Blood Urea Nitrogen 16 mg/dL (7-18); Calcium 8.5 mg/dL (8.5-10.1); Carbon Dioxide 23 mmol/L (21.0-32.0); Chloride 106 mmol/L (98-107); Creatinine Clearance Estimated 62 mL/min (50-200); Estimated Glomerular Filt Rate 82 ml/min (>60); GFR (African American) 99 ML/MIN (>60); Globulin 3.7 gm/dl (1.3-3.2); Glucose 86 mg/dL (74-106); Potassium 3.8 mmoL/L (3.5-5.1); Sodium 142 mmol/L (136-145); Total Protein,Serum 6.6 gm/dL (6.4-8.2)
[2019-09-09 12:54] LABS: Eosinophils % 2 % (0-3); Lymphocytes % 50 % (10-50); Monocytes % 5 % (2-9); Neutrophils % 43 % (42-76); Total Cells Counted 100
[2019-09-09 12:55] LABS: Anisocytosis 1+; Macrocytosis 2+; Platelet Estimate Moderate Decrease
== END 2019-09-09 12:24 | disposition home or self-care (01) ==
LOC: INF 12:13
PROVIDERS: Visit Provider Physician Assistant
DX: C56.1 Malignant neoplasm of right ovary (principal)
CPT/HCPCS: 80053; 85007; 85025; J1642

== ENCOUNTER 2019-09-20 11:02 | Outpatient (CLI) | payer MEDICARE, OTHER, SELFPAY ==
[2019-09-20 11:02] VITALS: BMI 30.9
[2019-09-20 11:19] VITALS: BMI 30.9
[2019-09-20 11:27] LABS: Basophils % 0.5 % (0.1-2.0); Eosinophils # 0.1 K/mm3 (0.0-0.4); Eosinophils % 1.7 % (0.1-12.0); Hematocrit 28.7 % (37.0-47.0); Hemoglobin 9.1 g/dL (12.2-16.2); Lymphocytes # 1.3 K/mm3 (0.7-4.5); Lymphocytes % 45.4 % (10-50); Mean Corpuscular HGB Conc 31.8 g/dL (31.8-35.4); Mean Corpuscular Hemoglobin 35.9 pg (27.0-31.2); Mean Corpuscular Volume 112.9 fl (81-99); Mean Platelet Volume 9.4 fl (7.4-10.4); Monocytes # 0.2 K/mm3 (0.1-1.0); Monocytes % 5.1 % (1.7-9.3); Neutrophils # 1.4 K/mm3 (1.8-7.8); Neutrophils % 47.3 % (37.0-80.0); Platelet Count 173 K/mm3 (142-424); Red Blood Count 2.54 M/mm3 (4.20-5.40); Red Cell Distribution Width 16.2 % (11.5-17.5)
[2019-09-20 11:31] LABS: Alanine Aminotransferase 19 U/L (12-78); Albumin/Globulin Ratio 1.4 (1.1-1.8); Alkaline Phosphatase 51 U/L (38-126); Aspartate Amino Transferase 21 U/L (14-36); Bilirubin,Total 0.2 mg/dl (0.2-1.3); Blood Urea Nitrogen 20 mg/dl (7-17); Calcium 9.7 mg/dl (8.4-10.2); Carbon Dioxide 27 mmol/L (22.0-30.0); Chloride 105 mmol/L (98-107); Creatinine Clearance Estimated 63 mL/min (50-200); Estimated Glomerular Filt Rate 61 ml/min (>60); GFR (African American) 74 ML/MIN (>60); Globulin 2.8 g/dL (1.3-3.2); Glucose 103 mg/dl (74-100); Sodium 139 mmol/L (136-145); Total Protein,Serum 6.8 g/dl (6.3-8.2)
== END 2019-09-20 11:16 | disposition home or self-care (01) ==
LOC: INF 11:02
PROVIDERS: Visit Provider Physician Assistant
DX: C56.1 Malignant neoplasm of right ovary (principal)
CPT/HCPCS: 80053; 85025; J1642

== ENCOUNTER 2019-10-04 11:00 | Outpatient (CLI) | payer MEDICARE, OTHER, SELFPAY ==
[2019-10-04 11:10] VITALS: BMI 30.9
[2019-10-04 11:29] LABS: Basophils % 0.6 % (0.1-2.0); Eosinophils # 0.2 K/mm3 (0.0-0.4); Eosinophils % 3.1 % (0.1-12.0); Hematocrit 31.2 % (37.0-47.0); Hemoglobin 9.7 g/dL (12.2-16.2); Lymphocytes # 1.4 K/mm3 (0.7-4.5); Lymphocytes % 27.8 % (10-50); Mean Corpuscular HGB Conc 31.2 g/dL (31.8-35.4); Mean Platelet Volume 8.8 fl (7.4-10.4); Monocytes # 0.3 K/mm3 (0.1-1.0); Monocytes % 4.9 % (1.7-9.3); Neutrophils # 3.3 K/mm3 (1.8-7.8); Neutrophils % 63.6 % (37.0-80.0); Platelet Count 313 K/mm3 (142-424); Red Blood Count 2.79 M/mm3 (4.20-5.40); Red Cell Distribution Width 15.1 % (11.5-17.5); White Blood Count 5.1 K/mm3 (4.8-10.8)
[2019-10-04 11:35] LABS: Alanine Aminotransferase 20 U/L (12-78); Albumin/Globulin Ratio 1.4 (1.1-1.8); Alkaline Phosphatase 48 U/L (38-126); Anion Gap 10.9 mEq/L (5-15); Aspartate Amino Transferase 22 U/L (14-36); Bilirubin,Total 0.2 mg/dl (0.2-1.3); Blood Urea Nitrogen 21 mg/dl (7-17); Calcium 9.5 mg/dl (8.4-10.2); Carbon Dioxide 25 mmol/L (22.0-30.0); Chloride 103 mmol/L (98-107); Creatinine Clearance Estimated 62 mL/min (50-200); Estimated Glomerular Filt Rate 70 ml/min (>60); GFR (African American) 85 ML/MIN (>60); Globulin 2.9 g/dL (1.3-3.2); Glucose 122 mg/dl (74-100); Potassium 3.9 mmoL/L (3.5-5.1); Sodium 135 mmol/L (136-145); Total Protein,Serum 6.9 g/dl (6.3-8.2)
== END 2019-10-04 11:20 | disposition home or self-care (01) ==
LOC: INF 11:08
PROVIDERS: Visit Provider Physician Assistant
DX: C56.1 Malignant neoplasm of right ovary (principal); Z45.2 Encounter for adjustment and management of vascular access device
CPT/HCPCS: 80053; 85025; J1642

== ENCOUNTER 2019-10-11 11:13 | Outpatient (CLI) | payer MEDICARE, OTHER, SELFPAY ==
[2019-10-11 11:14] VITALS: BMI 30.9
[2019-10-11 11:28] LABS: Basophils % 0.7 % (0.1-2.0); Eosinophils # 0.1 K/mm3 (0.0-0.4); Eosinophils % 3.4 % (0.1-12.0); Hematocrit 31.2 % (37.0-47.0); Hemoglobin 9.8 g/dL (12.2-16.2); Lymphocytes # 1.3 K/mm3 (0.7-4.5); Lymphocytes % 30.1 % (10-50); Mean Corpuscular HGB Conc 31.6 g/dL (31.8-35.4); Mean Corpuscular Hemoglobin 34.5 pg (27.0-31.2); Mean Corpuscular Volume 109.2 fl (81-99); Mean Platelet Volume 9.3 fl (7.4-10.4); Monocytes # 0.2 K/mm3 (0.1-1.0); Monocytes % 4.5 % (1.7-9.3); Neutrophils # 2.6 K/mm3 (1.8-7.8); Neutrophils % 61.3 % (37.0-80.0); Platelet Count 307 K/mm3 (142-424); Red Blood Count 2.85 M/mm3 (4.20-5.40); White Blood Count 4.3 K/mm3 (4.8-10.8)
[2019-10-11 11:36] LABS: Alanine Aminotransferase 19 U/L (12-78); Albumin Level 3.8 g/dl (3.5-5.0); Albumin/Globulin Ratio 1.4 (1.1-1.8); Alkaline Phosphatase 45 U/L (38-126); Aspartate Amino Transferase 23 U/L (14-36); Blood Urea Nitrogen 15 mg/dl (7-17); Calcium 9.6 mg/dl (8.4-10.2); Carbon Dioxide 25 mmol/L (22.0-30.0); Chloride 107 mmol/L (98-107); Creatinine Clearance Estimated 62 mL/min (50-200); Estimated Glomerular Filt Rate 98 ml/min (>60); GFR (African American) 118 ML/MIN (>60); Globulin 2.7 g/dL (1.3-3.2); Glucose 108 mg/dl (74-100); Sodium 138 mmol/L (136-145); Total Protein,Serum 6.5 g/dl (6.3-8.2)
[2019-10-11 11:37] LABS: Bilirubin,Total < 0.1 mg/dl (0.2-1.3)
== END 2019-10-11 11:24 | disposition home or self-care (01) ==
LOC: INF 11:13
PROVIDERS: Visit Provider Physician Assistant
DX: C56.1 Malignant neoplasm of right ovary (principal)
CPT/HCPCS: 80053; 85025; J1642

== ENCOUNTER 2019-10-18 11:31 | Outpatient (CLI) | payer MEDICARE, OTHER, SELFPAY ==
[2019-10-18 11:33] VITALS: BMI 30.9
[2019-10-18 11:48] LABS: Basophils % 0.4 % (0.1-2.0); Eosinophils # 0.2 K/mm3 (0.0-0.4); Eosinophils % 3.7 % (0.1-12.0); Hematocrit 33.3 % (37.0-47.0); Hemoglobin 10.6 g/dL (12.2-16.2); Lymphocytes # 1.6 K/mm3 (0.7-4.5); Lymphocytes % 27.2 % (10-50); Mean Corpuscular HGB Conc 31.8 g/dL (31.8-35.4); Mean Platelet Volume 8.9 fl (7.4-10.4); Monocytes # 0.3 K/mm3 (0.1-1.0); Monocytes % 4.3 % (1.7-9.3); Neutrophils # 3.8 K/mm3 (1.8-7.8); Neutrophils % 64.4 % (37.0-80.0); Platelet Count 349 K/mm3 (142-424); Red Blood Count 3.03 M/mm3 (4.20-5.40); Red Cell Distribution Width 15.2 % (11.5-17.5); White Blood Count 5.9 K/mm3 (4.8-10.8)
[2019-10-18 12:00] LABS: Chloride 102 mmol/L (98-107); Potassium 4.1 mmoL/L (3.5-5.1); Sodium 138 mmol/L (136-145)
[2019-10-18 12:02] LABS: Blood Urea Nitrogen 18 mg/dl (7-17); Creatinine Clearance Estimated 62 mL/min (50-200); Estimated Glomerular Filt Rate 82 ml/min (>60); GFR (African American) 99 ML/MIN (>60)
[2019-10-18 12:03] LABS: Alanine Aminotransferase 19 U/L (12-78); Albumin/Globulin Ratio 1.4 (1.1-1.8); Alkaline Phosphatase 54 U/L (38-126); Anion Gap 14.1 mEq/L (5-15); Aspartate Amino Transferase 29 U/L (14-36); Bilirubin,Total 0.2 mg/dl (0.2-1.3); Calcium 9.7 mg/dl (8.4-10.2); Carbon Dioxide 26 mmol/L (22.0-30.0); Globulin 2.9 g/dL (1.3-3.2); Glucose 90 mg/dl (74-100); Total Protein,Serum 6.9 g/dl (6.3-8.2)
== END 2019-10-18 11:40 | disposition home or self-care (01) ==
LOC: INF 11:31
PROVIDERS: Visit Provider Obstetrics & Gynecology Gynecologic Oncology
DX: C56.1 Malignant neoplasm of right ovary (principal); Z45.2 Encounter for adjustment and management of vascular access device
CPT/HCPCS: 80053; 85025; J1642

== ENCOUNTER 2019-10-23 11:09 | Outpatient (CLI) | payer MEDICARE, OTHER, SELFPAY ==
[2019-10-23 11:10] VITALS: BMI 30.6
[2019-10-23 11:26] LABS: Basophils % 0.6 % (0.1-2.0); Eosinophils # 0.3 K/mm3 (0.0-0.4); Eosinophils % 5.9 % (0.1-12.0); Hematocrit 35.1 % (37.0-47.0); Lymphocytes # 1.5 K/mm3 (0.7-4.5); Lymphocytes % 29.4 % (10-50); Mean Corpuscular HGB Conc 31.5 g/dL (31.8-35.4); Mean Corpuscular Hemoglobin 34.3 pg (27.0-31.2); Mean Corpuscular Volume 109.1 fl (81-99); Mean Platelet Volume 8.8 fl (7.4-10.4); Monocytes # 0.2 K/mm3 (0.1-1.0); Neutrophils # 3.1 K/mm3 (1.8-7.8); Neutrophils % 60.2 % (37.0-80.0); Platelet Count 326 K/mm3 (142-424); Red Blood Count 3.22 M/mm3 (4.20-5.40); Red Cell Distribution Width 14.6 % (11.5-17.5); White Blood Count 5.1 K/mm3 (4.8-10.8)
[2019-10-23 11:35] LABS: Alanine Aminotransferase 19 U/L (12-78); Albumin Level 4.3 g/dl (3.5-5.0); Albumin/Globulin Ratio 1.4 (1.1-1.8); Alkaline Phosphatase 53 U/L (38-126); Anion Gap 13.4 mEq/L (5-15); Aspartate Amino Transferase 26 U/L (14-36); Bilirubin,Total 0.2 mg/dl (0.2-1.3); Blood Urea Nitrogen 17 mg/dl (7-17); Calcium 10.2 mg/dl (8.4-10.2); Carbon Dioxide 25 mmol/L (22.0-30.0); Chloride 103 mmol/L (98-107); Creatinine Clearance Estimated 61 mL/min (50-200); Estimated Glomerular Filt Rate 82 ml/min (>60); GFR (African American) 99 ML/MIN (>60); Globulin 3.1 g/dL (1.3-3.2); Glucose 101 mg/dl (74-100); Potassium 4.4 mmoL/L (3.5-5.1); Sodium 137 mmol/L (136-145); Total Protein,Serum 7.4 g/dl (6.3-8.2)
== END 2019-10-23 11:28 | disposition home or self-care (01) ==
LOC: INF 11:09
PROVIDERS: Visit Provider Obstetrics & Gynecology Gynecologic Oncology
DX: C56.1 Malignant neoplasm of right ovary (principal); Z45.2 Encounter for adjustment and management of vascular access device
CPT/HCPCS: 80053; 85025; J1642

== ENCOUNTER 2019-10-30 11:06 | Outpatient (CLI) | payer MEDICARE, OTHER, SELFPAY ==
[2019-10-30 11:08] VITALS: BMI 30.6
[2019-10-30 11:20] VITALS: BP 107/52; PULSE 91; RESP 18; TEMP 36.4; O2SAT 97
[2019-10-30 11:31] LABS: Basophils % 0.7 % (0.1-2.0); Eosinophils # 0.3 K/mm3 (0.0-0.4); Eosinophils % 5.7 % (0.1-12.0); Hematocrit 34.7 % (37.0-47.0); Hemoglobin 10.8 g/dL (12.2-16.2); Lymphocytes # 1.3 K/mm3 (0.7-4.5); Lymphocytes % 25.4 % (10-50); Mean Corpuscular HGB Conc 31.3 g/dL (31.8-35.4); Mean Corpuscular Hemoglobin 33.9 pg (27.0-31.2); Mean Corpuscular Volume 108.5 fl (81-99); Mean Platelet Volume 7.5 fl (7.4-10.4); Monocytes # 0.2 K/mm3 (0.1-1.0); Monocytes % 3.4 % (1.7-9.3); Neutrophils # 3.4 K/mm3 (1.8-7.8); Neutrophils % 64.6 % (37.0-80.0); Platelet Count 306 K/mm3 (142-424); Red Cell Distribution Width 15.1 % (11.5-17.5); White Blood Count 5.3 K/mm3 (4.8-10.8)
[2019-10-30 11:36] LABS: Chloride 101 mmol/L (98-107); Potassium 4.1 mmoL/L (3.5-5.1); Sodium 137 mmol/L (136-145)
[2019-10-30 11:39] LABS: Alanine Aminotransferase 18 U/L (12-78); Albumin Level 3.9 g/dl (3.5-5.0); Albumin/Globulin Ratio 1.4 (1.1-1.8); Alkaline Phosphatase 43 U/L (38-126); Anion Gap 12.1 mEq/L (5-15); Aspartate Amino Transferase 20 U/L (14-36); Bilirubin,Total 0.2 mg/dl (0.2-1.3); Blood Urea Nitrogen 17 mg/dl (7-17); Carbon Dioxide 28 mmol/L (22.0-30.0); Creatinine Clearance Estimated 61 mL/min (50-200); Estimated Glomerular Filt Rate 54 ml/min (>60); GFR (African American) 66 ML/MIN (>60); Globulin 2.8 g/dL (1.3-3.2); Total Protein,Serum 6.7 g/dl (6.3-8.2)
[2019-10-30 11:40] LABS: Calcium 9.7 mg/dl (8.4-10.2); Glucose 112 mg/dl (74-100)
== END 2019-10-30 11:20 | disposition home or self-care (01) ==
LOC: INF 11:06
PROVIDERS: Visit Provider Obstetrics & Gynecology Gynecologic Oncology
DX: C56.1 Malignant neoplasm of right ovary (principal)
CPT/HCPCS: 80053; 85025; J1642

== ENCOUNTER 2019-11-06 11:10 | Outpatient (CLI) | payer MEDICARE, OTHER, SELFPAY ==
[2019-11-06 11:12] VITALS: BMI 30.6
[2019-11-06 11:30] LABS: Basophils % 0.6 % (0.1-2.0); Eosinophils # 0.3 K/mm3 (0.0-0.4); Eosinophils % 5.9 % (0.1-12.0); Hematocrit 34.6 % (37.0-47.0); Hemoglobin 10.8 g/dL (12.2-16.2); Lymphocytes # 1.3 K/mm3 (0.7-4.5); Lymphocytes % 25.2 % (10-50); Mean Corpuscular HGB Conc 31.2 g/dL (31.8-35.4); Mean Corpuscular Hemoglobin 33.1 pg (27.0-31.2); Mean Corpuscular Volume 106.4 fl (81-99); Mean Platelet Volume 8.7 fl (7.4-10.4); Monocytes # 0.1 K/mm3 (0.1-1.0); Monocytes % 2.7 % (1.7-9.3); Neutrophils # 3.5 K/mm3 (1.8-7.8); Neutrophils % 65.6 % (37.0-80.0); Platelet Count 264 K/mm3 (142-424); Red Blood Count 3.25 M/mm3 (4.20-5.40); Red Cell Distribution Width 15.5 % (11.5-17.5); White Blood Count 5.3 K/mm3 (4.8-10.8)
[2019-11-06 11:33] LABS: Chloride 102 mmol/L (98-107); Potassium 3.8 mmoL/L (3.5-5.1); Sodium 137 mmol/L (136-145)
[2019-11-06 11:35] LABS: Blood Urea Nitrogen 19 mg/dl (7-17); Creatinine Clearance Estimated 61 mL/min (50-200); Estimated Glomerular Filt Rate 61 ml/min (>60); GFR (African American) 74 ML/MIN (>60)
[2019-11-06 11:36] LABS: Alanine Aminotransferase 18 U/L (12-78); Albumin Level 4.1 g/dl (3.5-5.0); Albumin/Globulin Ratio 1.5 (1.1-1.8); Alkaline Phosphatase 41 U/L (38-126); Anion Gap 12.8 mEq/L (5-15); Aspartate Amino Transferase 21 U/L (14-36); Bilirubin,Total 0.4 mg/dl (0.2-1.3); Calcium 9.9 mg/dl (8.4-10.2); Carbon Dioxide 26 mmol/L (22.0-30.0); Globulin 2.7 g/dL (1.3-3.2); Glucose 151 mg/dl (74-100); Total Protein,Serum 6.8 g/dl (6.3-8.2)
== END 2019-11-06 11:15 | disposition home or self-care (01) ==
LOC: INF 11:11
PROVIDERS: Visit Provider Obstetrics & Gynecology Gynecologic Oncology
DX: C56.1 Malignant neoplasm of right ovary (principal); Z45.2 Encounter for adjustment and management of vascular access device
CPT/HCPCS: 80053; 85025; J1642

== ENCOUNTER 2019-11-13 10:59 | Outpatient (CLI) | payer MEDICARE, OTHER, SELFPAY ==
[2019-11-13 11:00] VITALS: BMI 30.9
[2019-11-13 11:13] LABS: Basophils % 0.6 % (0.1-2.0); Eosinophils # 0.3 K/mm3 (0.0-0.4); Eosinophils % 5.5 % (0.1-12.0); Hematocrit 34.3 % (37.0-47.0); Hemoglobin 10.8 g/dL (12.2-16.2); Lymphocytes # 1.4 K/mm3 (0.7-4.5); Lymphocytes % 30.4 % (10-50); Mean Corpuscular HGB Conc 31.4 g/dL (31.8-35.4); Mean Corpuscular Hemoglobin 33.6 pg (27.0-31.2); Mean Corpuscular Volume 107.1 fl (81-99); Mean Platelet Volume 9.2 fl (7.4-10.4); Monocytes # 0.1 K/mm3 (0.1-1.0); Monocytes % 2.5 % (1.7-9.3); Neutrophils # 2.9 K/mm3 (1.8-7.8); Platelet Count 251 K/mm3 (142-424); White Blood Count 4.7 K/mm3 (4.8-10.8)
[2019-11-13 11:18] LABS: Chloride 104 mmol/L (98-107); Potassium 4.1 mmoL/L (3.5-5.1); Sodium 135 mmol/L (136-145)
[2019-11-13 11:21] LABS: Alanine Aminotransferase 44 U/L (12-78); Albumin Level 3.9 g/dl (3.5-5.0); Albumin/Globulin Ratio 1.4 (1.1-1.8); Alkaline Phosphatase 58 U/L (38-126); Anion Gap 11.1 mEq/L (5-15); Aspartate Amino Transferase 24 U/L (14-36); Bilirubin,Total 0.2 mg/dl (0.2-1.3); Blood Urea Nitrogen 21 mg/dl (7-17); Calcium 9.6 mg/dl (8.4-10.2); Carbon Dioxide 24 mmol/L (22.0-30.0); Creatinine Clearance Estimated 62 mL/min (50-200); Estimated Glomerular Filt Rate 61 ml/min (>60); GFR (African American) 74 ML/MIN (>60); Globulin 2.7 g/dL (1.3-3.2); Glucose 152 mg/dl (74-100); Total Protein,Serum 6.6 g/dl (6.3-8.2)
== END 2019-11-13 11:10 | disposition home or self-care (01) ==
LOC: INF 10:59
PROVIDERS: Visit Provider Obstetrics & Gynecology Gynecologic Oncology
DX: C56.1 Malignant neoplasm of right ovary (principal); Z45.2 Encounter for adjustment and management of vascular access device
CPT/HCPCS: 80053; 85025; J1642

== ENCOUNTER 2019-11-20 11:07 | Outpatient (CLI) | payer MEDICARE, OTHER, SELFPAY ==
[2019-11-20 11:09] VITALS: BMI 29.1
[2019-11-20 11:24] LABS: Basophils % 0.5 % (0.1-2.0); Eosinophils # 0.2 K/mm3 (0.0-0.4); Eosinophils % 4.2 % (0.1-12.0); Hematocrit 32.1 % (37.0-47.0); Hemoglobin 10.3 g/dL (12.2-16.2); Lymphocytes # 1.2 K/mm3 (0.7-4.5); Lymphocytes % 31.1 % (10-50); Mean Corpuscular HGB Conc 32.1 g/dL (31.8-35.4); Mean Corpuscular Volume 105.9 fl (81-99); Mean Platelet Volume 9.5 fl (7.4-10.4); Monocytes # 0.1 K/mm3 (0.1-1.0); Monocytes % 3.4 % (1.7-9.3); Neutrophils # 2.5 K/mm3 (1.8-7.8); Platelet Count 229 K/mm3 (142-424); Red Blood Count 3.03 M/mm3 (4.20-5.40); Red Cell Distribution Width 16.6 % (11.5-17.5)
[2019-11-20 11:26] LABS: Chloride 105 mmol/L (98-107); Potassium 3.8 mmoL/L (3.5-5.1); Sodium 138 mmol/L (136-145)
[2019-11-20 11:29] LABS: Alanine Aminotransferase 18 U/L (12-78); Albumin Level 3.6 g/dl (3.5-5.0); Albumin/Globulin Ratio 1.4 (1.1-1.8); Alkaline Phosphatase 41 U/L (38-126); Anion Gap 10.8 mEq/L (5-15); Aspartate Amino Transferase 18 U/L (14-36); Bilirubin,Total 0.2 mg/dl (0.2-1.3); Blood Urea Nitrogen 22 mg/dl (7-17); Calcium 9.1 mg/dl (8.4-10.2); Carbon Dioxide 26 mmol/L (22.0-30.0); Creatinine Clearance Estimated 62 mL/min (50-200); Estimated Glomerular Filt Rate 61 ml/min (>60); GFR (African American) 74 ML/MIN (>60); Globulin 2.6 g/dL (1.3-3.2); Glucose 150 mg/dl (74-100); Total Protein,Serum 6.2 g/dl (6.3-8.2)
== END 2019-11-20 11:14 | disposition home or self-care (01) ==
LOC: INF 11:07
PROVIDERS: Visit Provider Obstetrics & Gynecology Gynecologic Oncology
DX: C56.1 Malignant neoplasm of right ovary (principal)
CPT/HCPCS: 80053; 85025; J1642

== ENCOUNTER 2019-11-27 11:05 | Outpatient (CLI) | payer MEDICARE, OTHER, SELFPAY ==
[2019-11-27 11:05] VITALS: BMI 30.6
[2019-11-27 11:25] LABS: Chloride 103 mmol/L (98-107); Eosinophils # 0.1 K/mm3 (0.0-0.4); Eosinophils % 2.7 % (0.1-12.0); Hematocrit 31.1 % (37.0-47.0); Lymphocytes # 1.4 K/mm3 (0.7-4.5); Lymphocytes % 38.5 % (10-50); Mean Corpuscular HGB Conc 32.2 g/dL (31.8-35.4); Mean Corpuscular Hemoglobin 33.9 pg (27.0-31.2); Mean Corpuscular Volume 105.1 fl (81-99); Mean Platelet Volume 9.4 fl (7.4-10.4); Monocytes # 0.1 K/mm3 (0.1-1.0); Monocytes % 2.5 % (1.7-9.3); Neutrophils % 55.4 % (37.0-80.0); Platelet Count 255 K/mm3 (142-424); Red Blood Count 2.96 M/mm3 (4.20-5.40); Red Cell Distribution Width 16.5 % (11.5-17.5); White Blood Count 3.6 K/mm3 (4.8-10.8)
[2019-11-27 11:28] LABS: Alanine Aminotransferase 61 U/L (12-78); Alkaline Phosphatase 56 U/L (38-126); Aspartate Amino Transferase 26 U/L (14-36); Bilirubin,Total 0.2 mg/dl (0.2-1.3); Blood Urea Nitrogen 16 mg/dl (7-17); Creatinine Clearance Estimated 61 mL/min (50-200); Estimated Glomerular Filt Rate 61 ml/min (>60); GFR (African American) 74 ML/MIN (>60)
[2019-11-27 11:29] LABS: Albumin Level 3.8 g/dl (3.5-5.0); Albumin/Globulin Ratio 1.5 (1.1-1.8); Calcium 9.5 mg/dl (8.4-10.2); Globulin 2.6 g/dL (1.3-3.2); Glucose 133 mg/dl (74-100); Total Protein,Serum 6.4 g/dl (6.3-8.2)
[2019-11-27 11:42] LABS: Anion Gap 14.7 mEq/L (5-15); Carbon Dioxide 25 mmol/L (22.0-30.0); Potassium 3.7 mmoL/L (3.5-5.1); Sodium 139 mmol/L (136-145)
== END 2019-11-27 11:15 | disposition home or self-care (01) ==
LOC: INF 11:05
PROVIDERS: Visit Provider Obstetrics & Gynecology Gynecologic Oncology
DX: C56.1 Malignant neoplasm of right ovary (principal); Z45.2 Encounter for adjustment and management of vascular access device
CPT/HCPCS: 80053; 85025; J1642

== ENCOUNTER 2019-12-11 11:08 | Outpatient (CLI) | payer MEDICARE, OTHER, SELFPAY ==
[2019-12-11 11:12] VITALS: BMI 30.9
[2019-12-11 11:15] VITALS: BP 96/49; PULSE 90; RESP 18; TEMP 36.2; O2SAT 97
[2019-12-11 11:30] LABS: Basophils % 0.8 % (0.1-2.0); Eosinophils # 0.1 K/mm3 (0.0-0.4); Eosinophils % 3.3 % (0.1-12.0); Hematocrit 29.5 % (37.0-47.0); Hemoglobin 9.3 g/dL (12.2-16.2); Lymphocytes # 1.5 K/mm3 (0.7-4.5); Lymphocytes % 36.7 % (10-50); Mean Corpuscular HGB Conc 31.4 g/dL (31.8-35.4); Mean Corpuscular Hemoglobin 32.8 pg (27.0-31.2); Mean Corpuscular Volume 104.5 fl (81-99); Mean Platelet Volume 9.5 fl (7.4-10.4); Monocytes # 0.1 K/mm3 (0.1-1.0); Monocytes % 2.4 % (1.7-9.3); Neutrophils # 2.3 K/mm3 (1.8-7.8); Neutrophils % 56.9 % (37.0-80.0); Platelet Count 312 K/mm3 (142-424); Red Blood Count 2.82 M/mm3 (4.20-5.40); Red Cell Distribution Width 18.4 % (11.5-17.5)
[2019-12-11 11:35] LABS: Alanine Aminotransferase 24 U/L (12-78); Albumin Level 4.2 g/dl (3.5-5.0); Albumin/Globulin Ratio 1.6 (1.1-1.8); Alkaline Phosphatase 61 U/L (38-126); Anion Gap 9.3 mEq/L (5-15); Aspartate Amino Transferase 21 U/L (14-36); Bilirubin,Total 0.3 mg/dl (0.2-1.3); Blood Urea Nitrogen 28 mg/dl (7-17); Carbon Dioxide 26 mmol/L (22.0-30.0); Chloride 104 mmol/L (98-107); Creatinine Clearance Estimated 62 mL/min (50-200); Estimated Glomerular Filt Rate 61 ml/min (>60); GFR (African American) 74 ML/MIN (>60); Globulin 2.7 g/dL (1.3-3.2); Glucose 137 mg/dl (74-100); Potassium 3.3 mmoL/L (3.5-5.1); Sodium 136 mmol/L (136-145); Total Protein,Serum 6.9 g/dl (6.3-8.2)
== END 2019-12-11 11:25 | disposition home or self-care (01) ==
LOC: INF 11:08
PROVIDERS: Visit Provider Obstetrics & Gynecology Gynecologic Oncology
DX: C56.1 Malignant neoplasm of right ovary (principal); Z45.2 Encounter for adjustment and management of vascular access device
CPT/HCPCS: 80053; 85025; J1642

== ENCOUNTER 2019-12-25 11:00 | Outpatient (CLI) | payer MEDICARE, OTHER, SELFPAY ==
[2019-12-25 11:22] VITALS: BMI 30.9
[2019-12-25 11:30] LABS: Basophils % 0.9 % (0.1-2.0); Eosinophils # 0.1 K/mm3 (0.0-0.4); Eosinophils % 3.1 % (0.1-12.0); Hematocrit 26.1 % (37.0-47.0); Hemoglobin 8.5 g/dL (12.2-16.2); Lymphocytes # 1.4 K/mm3 (0.7-4.5); Lymphocytes % 32.1 % (10-50); Mean Corpuscular HGB Conc 32.6 g/dL (31.8-35.4); Mean Corpuscular Hemoglobin 33.8 pg (27.0-31.2); Mean Corpuscular Volume 103.9 fl (81-99); Mean Platelet Volume 9.5 fl (7.4-10.4); Monocytes # 0.1 K/mm3 (0.1-1.0); Monocytes % 3.4 % (1.7-9.3); Neutrophils # 2.6 K/mm3 (1.8-7.8); Neutrophils % 60.5 % (37.0-80.0); Platelet Count 248 K/mm3 (142-424); Red Blood Count 2.51 M/mm3 (4.20-5.40); Red Cell Distribution Width 18.4 % (11.5-17.5); White Blood Count 4.2 K/mm3 (4.8-10.8)
[2019-12-25 11:38] LABS: Chloride 106 mmol/L (98-107); Sodium 138 mmol/L (136-145)
[2019-12-25 11:41] LABS: Alanine Aminotransferase 15 U/L (12-78); Albumin/Globulin Ratio 1.4 (1.1-1.8); Alkaline Phosphatase 59 U/L (38-126); Aspartate Amino Transferase 20 U/L (14-36); Bilirubin,Total 0.5 mg/dl (0.2-1.3); Blood Urea Nitrogen 25 mg/dl (7-17); Calcium 9.8 mg/dl (8.4-10.2); Carbon Dioxide 25 mmol/L (22.0-30.0); Creatinine Clearance Estimated 62 mL/min (50-200); Estimated Glomerular Filt Rate 61 ml/min (>60); GFR (African American) 74 ML/MIN (>60); Globulin 2.8 g/dL (1.3-3.2); Glucose 99 mg/dl (74-100); Total Protein,Serum 6.8 g/dl (6.3-8.2)
== END 2019-12-25 11:20 | disposition home or self-care (01) ==
LOC: INF 11:20
PROVIDERS: Visit Provider Physician Assistant
DX: C56.1 Malignant neoplasm of right ovary (principal); Z45.2 Encounter for adjustment and management of vascular access device
CPT/HCPCS: 80053; 85025; J1642

== ENCOUNTER 2020-01-08 11:02 | Outpatient (CLI) | payer MEDICARE, OTHER, SELFPAY ==
[2020-01-08 11:04] VITALS: BMI 34.2
[2020-01-08 11:26] LABS: Basophils % 0.8 % (0.1-2.0); Eosinophils # 0.2 K/mm3 (0.0-0.4); Eosinophils % 3.4 % (0.1-12.0); Hematocrit 26.9 % (37.0-47.0); Hemoglobin 8.8 g/dL (12.2-16.2); Lymphocytes # 1.2 K/mm3 (0.7-4.5); Lymphocytes % 28.4 % (10-50); Mean Corpuscular HGB Conc 32.8 g/dL (31.8-35.4); Mean Corpuscular Volume 100.7 fl (81-99); Mean Platelet Volume 8.8 fl (7.4-10.4); Monocytes # 0.1 K/mm3 (0.1-1.0); Monocytes % 2.4 % (1.7-9.3); Neutrophils # 2.8 K/mm3 (1.8-7.8); Neutrophils % 64.9 % (37.0-80.0); Platelet Count 227 K/mm3 (142-424); Red Blood Count 2.67 M/mm3 (4.20-5.40); Red Cell Distribution Width 19.1 % (11.5-17.5); White Blood Count 4.4 K/mm3 (4.8-10.8)
[2020-01-08 11:31] LABS: Alanine Aminotransferase 17 U/L (12-78); Albumin Level 4.1 g/dl (3.5-5.0); Albumin/Globulin Ratio 1.5 (1.1-1.8); Alkaline Phosphatase 53 U/L (38-126); Anion Gap 14.7 mEq/L (5-15); Aspartate Amino Transferase 20 U/L (14-36); Bilirubin,Total 0.3 mg/dl (0.2-1.3); Blood Urea Nitrogen 25 mg/dl (7-17); Calcium 9.5 mg/dl (8.4-10.2); Carbon Dioxide 25 mmol/L (22.0-30.0); Chloride 103 mmol/L (98-107); Creatinine Clearance Estimated 62 mL/min (50-200); Estimated Glomerular Filt Rate 54 ml/min (>60); GFR (African American) 66 ML/MIN (>60); Globulin 2.8 g/dL (1.3-3.2); Glucose 143 mg/dl (74-100); Potassium 3.7 mmoL/L (3.5-5.1); Sodium 139 mmol/L (136-145); Total Protein,Serum 6.9 g/dl (6.3-8.2)
== END 2020-01-08 11:10 | disposition home or self-care (01) ==
LOC: INF 11:02
PROVIDERS: Visit Provider Physician Assistant
DX: C56.1 Malignant neoplasm of right ovary (principal)
CPT/HCPCS: 80053; 85025; J1642

== ENCOUNTER 2020-01-15 10:55 | Outpatient (CLI) | payer MEDICARE, OTHER, SELFPAY ==
[2020-01-15 10:55] VITALS: BMI 30.9
[2020-01-15 11:19] LABS: Chloride 107 mmol/L (98-107); Potassium 3.8 mmoL/L (3.5-5.1); Sodium 137 mmol/L (136-145)
[2020-01-15 11:22] LABS: Alanine Aminotransferase 15 U/L (12-78); Albumin Level 3.8 g/dl (3.5-5.0); Albumin/Globulin Ratio 1.5 (1.1-1.8); Alkaline Phosphatase 48 U/L (38-126); Anion Gap 9.8 mEq/L (5-15); Aspartate Amino Transferase 18 U/L (14-36); Basophils % 0.8 % (0.1-2.0); Bilirubin,Total 0.4 mg/dl (0.2-1.3); Blood Urea Nitrogen 27 mg/dl (7-17); Calcium 9.4 mg/dl (8.4-10.2); Carbon Dioxide 24 mmol/L (22.0-30.0); Creatinine Clearance Estimated 62 mL/min (50-200); Eosinophils # 0.1 K/mm3 (0.0-0.4); Eosinophils % 2.5 % (0.1-12.0); Estimated Glomerular Filt Rate 54 ml/min (>60); GFR (African American) 66 ML/MIN (>60); Globulin 2.6 g/dL (1.3-3.2); Glucose 127 mg/dl (74-100); Hemoglobin 8.1 g/dL (12.2-16.2); Lymphocytes # 1.2 K/mm3 (0.7-4.5); Lymphocytes % 27.1 % (10-50); Mean Corpuscular HGB Conc 33.6 g/dL (31.8-35.4); Mean Corpuscular Hemoglobin 33.7 pg (27.0-31.2); Mean Corpuscular Volume 100.4 fl (81-99); Mean Platelet Volume 8.4 fl (7.4-10.4); Monocytes # 0.2 K/mm3 (0.1-1.0); Monocytes % 3.6 % (1.7-9.3); Neutrophils # 2.9 K/mm3 (1.8-7.8); Neutrophils % 66.1 % (37.0-80.0); Platelet Count 226 K/mm3 (142-424); Red Blood Count 2.39 M/mm3 (4.20-5.40); Red Cell Distribution Width 19.1 % (11.5-17.5); Total Protein,Serum 6.4 g/dl (6.3-8.2); White Blood Count 4.4 K/mm3 (4.8-10.8)
== END 2020-01-15 11:00 | disposition home or self-care (01) ==
LOC: INF 10:55
PROVIDERS: Visit Provider Physician Assistant
DX: C56.1 Malignant neoplasm of right ovary (principal); Z45.2 Encounter for adjustment and management of vascular access device
CPT/HCPCS: 80053; 85025; J1642

== ENCOUNTER 2020-01-22 11:10 | Outpatient (CLI) | payer MEDICARE, OTHER, SELFPAY ==
[2020-01-22 11:17] VITALS: BMI 30.9
[2020-01-22 11:40] LABS: Basophils % 0.7 % (0.1-2.0); Eosinophils # 0.2 K/mm3 (0.0-0.4); Eosinophils % 4.1 % (0.1-12.0); Lymphocytes # 1.3 K/mm3 (0.7-4.5); Lymphocytes % 33.8 % (10-50); Mean Corpuscular HGB Conc 32.5 g/dL (31.8-35.4); Mean Corpuscular Hemoglobin 33.3 pg (27.0-31.2); Mean Corpuscular Volume 102.6 fl (81-99); Mean Platelet Volume 9.9 fl (7.4-10.4); Monocytes # 0.1 K/mm3 (0.1-1.0); Monocytes % 2.6 % (1.7-9.3); Neutrophils # 2.3 K/mm3 (1.8-7.8); Neutrophils % 58.7 % (37.0-80.0); Platelet Count 229 K/mm3 (142-424); Red Blood Count 2.18 M/mm3 (4.20-5.40); White Blood Count 3.9 K/mm3 (4.8-10.8)
[2020-01-22 11:41] LABS: Hemoglobin 7.3 g/dL (12.2-16.2)
[2020-01-22 11:42] LABS: Hematocrit 22.4 % (37.0-47.0)
[2020-01-22 11:59] LABS: Alanine Aminotransferase 14 U/L (12-78); Albumin/Globulin Ratio 1.5 (1.1-1.8); Alkaline Phosphatase 47 U/L (38-126); Anion Gap 9.6 mEq/L (5-15); Aspartate Amino Transferase 23 U/L (14-36); Bilirubin,Total 0.3 mg/dl (0.2-1.3); Blood Urea Nitrogen 26 mg/dl (7-17); Calcium 9.6 mg/dl (8.4-10.2); Carbon Dioxide 26 mmol/L (22.0-30.0); Chloride 106 mmol/L (98-107); Creatinine Clearance Estimated 62 mL/min (50-200); Estimated Glomerular Filt Rate 70 ml/min (>60); GFR (African American) 85 ML/MIN (>60); Globulin 2.7 g/dL (1.3-3.2); Glucose 164 mg/dl (74-100); Potassium 3.6 mmoL/L (3.5-5.1); Sodium 138 mmol/L (136-145); Total Protein,Serum 6.7 g/dl (6.3-8.2)
--- NOTE | 2020-01-22 12:09 | PC.NURSE ---
1205 - MADE CALL TO [facility] AND SPOKE WITH DR PANDEY REGARDING PT'S HGB 7.3 AND HCT 22.4. STATED HE WOULD BE IN CONTACT WITH THE PT WITH FURTHER INSTRUCTION.
== END 2020-01-22 11:30 | disposition home or self-care (01) ==
LOC: INF 11:14
PROVIDERS: Visit Provider Physician Assistant
DX: C56.1 Malignant neoplasm of right ovary (principal); Z45.2 Encounter for adjustment and management of vascular access device
CPT/HCPCS: 80053; 85025; J1642

== ENCOUNTER 2020-01-29 11:00 | Outpatient (CLI) | payer MEDICARE, OTHER, SELFPAY ==
[2020-01-29 11:02] VITALS: BMI 30.9
[2020-01-29 11:24] LABS: Basophils # 0.1 K/mm3 (0-0.2); Basophils % 2.5 % (0.1-2.0); Eosinophils # 0.2 K/mm3 (0.0-0.4); Eosinophils % 4.3 % (0.1-12.0); Lymphocytes # 1.3 K/mm3 (0.7-4.5); Lymphocytes % 27.7 % (10-50); Mean Corpuscular Hemoglobin 32.5 pg (27.0-31.2); Mean Corpuscular Volume 101.7 fl (81-99); Mean Platelet Volume 12.6 fl (7.4-10.4); Monocytes # 0.1 K/mm3 (0.1-1.0); Monocytes % 2.3 % (1.7-9.3); Neutrophils # 2.9 K/mm3 (1.8-7.8); Neutrophils % 63.1 % (37.0-80.0); Platelet Count 212 K/mm3 (142-424); Red Blood Count 2.29 M/mm3 (4.20-5.40); Red Cell Distribution Width 22.5 % (11.5-17.5); White Blood Count 4.6 K/mm3 (4.8-10.8)
[2020-01-29 11:26] LABS: Chloride 107 mmol/L (98-107); Sodium 137 mmol/L (136-145)
[2020-01-29 11:27] LABS: Potassium 3.7 mmoL/L (3.5-5.1)
[2020-01-29 11:29] LABS: Alanine Aminotransferase 13 U/L (12-78); Alkaline Phosphatase 45 U/L (38-126); Anion Gap 8.7 mEq/L (5-15); Aspartate Amino Transferase 17 U/L (14-36); Bilirubin,Total 0.4 mg/dl (0.2-1.3); Blood Urea Nitrogen 21 mg/dl (7-17); Carbon Dioxide 25 mmol/L (22.0-30.0); Creatinine Clearance Estimated 62 mL/min (50-200); Estimated Glomerular Filt Rate 61 ml/min (>60); GFR (African American) 74 ML/MIN (>60)
[2020-01-29 11:30] LABS: Albumin Level 3.7 g/dl (3.5-5.0); Albumin/Globulin Ratio 1.4 (1.1-1.8); Calcium 9.1 mg/dl (8.4-10.2); Globulin 2.6 g/dL (1.3-3.2); Glucose 138 mg/dl (74-100); Total Protein,Serum 6.3 g/dl (6.3-8.2)
[2020-01-29 11:31] LABS: Hematocrit 23.6 % (37.0-47.0); Hemoglobin 7.6 g/dL (12.2-16.2)
== END 2020-01-29 11:15 | disposition home or self-care (01) ==
PROVIDERS: Physician Assistant; PCP Family Medicine; Visit Provider Obstetrics & Gynecology Gynecologic Oncology
DX: C56.1 Malignant neoplasm of right ovary (principal); Z45.2 Encounter for adjustment and management of vascular access device
CPT/HCPCS: 80053; 85025; J1642

== ENCOUNTER 2020-02-12 11:01 | Outpatient (CLI) | payer MEDICARE, OTHER, SELFPAY ==
[2020-02-12 11:03] VITALS: BMI 30.9
[2020-02-12 11:23] LABS: Basophils % 0.7 % (0.1-2.0); Eosinophils # 0.2 K/mm3 (0.0-0.4); Lymphocytes % 21.1 % (10-50); Mean Corpuscular Hemoglobin 32.1 pg (27.0-31.2); Mean Corpuscular Volume 94.5 fl (81-99); Monocytes # 0.2 K/mm3 (0.1-1.0); Monocytes % 3.7 % (1.7-9.3); Neutrophils # 3.2 K/mm3 (1.8-7.8); Neutrophils % 70.5 % (37.0-80.0); Platelet Count 231 K/mm3 (142-424); Red Cell Distribution Width 19.8 % (11.5-17.5); White Blood Count 4.5 K/mm3 (4.8-10.8)
[2020-02-12 11:26] LABS: Chloride 103 mmol/L (98-107); Hematocrit 22.7 % (37.0-47.0); Hemoglobin 7.7 g/dL (12.2-16.2); Potassium 4.2 mmoL/L (3.5-5.1); Sodium 138 mmol/L (136-145)
[2020-02-12 11:28] LABS: Alanine Aminotransferase 15 U/L (12-78); Aspartate Amino Transferase 18 U/L (14-36); Blood Urea Nitrogen 20 mg/dl (7-17); Creatinine Clearance Estimated 62 mL/min (50-200); Estimated Glomerular Filt Rate 54 ml/min (>60); GFR (African American) 66 ML/MIN (>60)
[2020-02-12 11:29] LABS: Albumin Level 3.7 g/dl (3.5-5.0); Albumin/Globulin Ratio 1.4 (1.1-1.8); Alkaline Phosphatase 43 U/L (38-126); Anion Gap 11.2 mEq/L (5-15); Bilirubin,Total 0.4 mg/dl (0.2-1.3); Calcium 9.5 mg/dl (8.4-10.2); Carbon Dioxide 28 mmol/L (22.0-30.0); Globulin 2.6 g/dL (1.3-3.2); Glucose 94 mg/dl (74-100); Total Protein,Serum 6.3 g/dl (6.3-8.2)
--- NOTE | 2020-02-12 11:37 | PC.NURSE ---
[id number]-called md office about lab results hgb 7.7 and hct 22.7; reported results to katherin. faxed results also for their records
== END 2020-02-12 11:15 | disposition home or self-care (01) ==
LOC: INF 11:01
PROVIDERS: Visit Provider Physician Assistant
DX: C56.1 Malignant neoplasm of right ovary (principal); Z45.2 Encounter for adjustment and management of vascular access device
CPT/HCPCS: 80053; 85025; J1642

== ENCOUNTER 2020-02-19 11:05 | Outpatient (CLI) | payer MEDICARE, OTHER, SELFPAY ==
[2020-02-19 11:07] VITALS: BMI 30.9
[2020-02-19 11:27] LABS: Basophils % 0.6 % (0.1-2.0); Eosinophils # 0.2 K/mm3 (0.0-0.4); Eosinophils % 3.5 % (0.1-12.0); Lymphocytes # 1.1 K/mm3 (0.7-4.5); Lymphocytes % 22.2 % (10-50); Mean Corpuscular HGB Conc 33.3 g/dL (31.8-35.4); Mean Corpuscular Hemoglobin 32.1 pg (27.0-31.2); Mean Corpuscular Volume 96.4 fl (81-99); Mean Platelet Volume 10.9 fl (7.4-10.4); Monocytes # 0.2 K/mm3 (0.1-1.0); Monocytes % 3.2 % (1.7-9.3); Neutrophils # 3.4 K/mm3 (1.8-7.8); Neutrophils % 70.6 % (37.0-80.0); Platelet Count 196 K/mm3 (142-424); Red Blood Count 2.03 M/mm3 (4.20-5.40); Red Cell Distribution Width 19.8 % (11.5-17.5); White Blood Count 4.8 K/mm3 (4.8-10.8)
[2020-02-19 11:32] LABS: Chloride 105 mmol/L (98-107); Hematocrit 19.6 % (37.0-47.0); Hemoglobin 6.5 g/dL (12.2-16.2); Potassium 3.8 mmoL/L (3.5-5.1); Sodium 138 mmol/L (136-145)
[2020-02-19 11:35] LABS: Alanine Aminotransferase 17 U/L (12-78); Albumin Level 3.8 g/dl (3.5-5.0); Albumin/Globulin Ratio 1.5 (1.1-1.8); Alkaline Phosphatase 46 U/L (38-126); Anion Gap 12.8 mEq/L (5-15); Aspartate Amino Transferase 19 U/L (14-36); Bilirubin,Total 0.4 mg/dl (0.2-1.3); Blood Urea Nitrogen 24 mg/dl (7-17); Carbon Dioxide 24 mmol/L (22.0-30.0); Creatinine Clearance Estimated 62 mL/min (50-200); Estimated Glomerular Filt Rate 54 ml/min (>60); GFR (African American) 66 ML/MIN (>60); Globulin 2.6 g/dL (1.3-3.2); Glucose 100 mg/dl (74-100); Total Protein,Serum 6.4 g/dl (6.3-8.2)
[2020-02-19 11:36] LABS: Calcium 9.5 mg/dl (8.4-10.2)
== END 2020-02-19 11:20 | disposition home or self-care (01) ==
LOC: INF 11:05
PROVIDERS: Visit Provider Physician Assistant
DX: C56.1 Malignant neoplasm of right ovary (principal); Z45.2 Encounter for adjustment and management of vascular access device
CPT/HCPCS: 80053; 85025; J1642

== ENCOUNTER 2020-02-26 11:06 | Outpatient (CLI) | payer MEDICARE, OTHER, SELFPAY ==
[2020-02-26 11:08] VITALS: BMI 30.9
[2020-02-26 11:26] LABS: Chloride 105 mmol/L (98-107)
[2020-02-26 11:27] LABS: Basophils % 0.7 % (0.1-2.0); Eosinophils # 0.2 K/mm3 (0.0-0.4); Eosinophils % 4.2 % (0.1-12.0); Hematocrit 28.9 % (37.0-47.0); Hemoglobin 9.8 g/dL (12.2-16.2); Lymphocytes # 1.5 K/mm3 (0.7-4.5); Lymphocytes % 26.9 % (10-50); Mean Corpuscular Hemoglobin 31.5 pg (27.0-31.2); Mean Corpuscular Volume 92.8 fl (81-99); Mean Platelet Volume 9.1 fl (7.4-10.4); Monocytes # 0.2 K/mm3 (0.1-1.0); Monocytes % 3.5 % (1.7-9.3); Neutrophils # 3.5 K/mm3 (1.8-7.8); Neutrophils % 64.7 % (37.0-80.0); Platelet Count 247 K/mm3 (142-424); Potassium 3.7 mmoL/L (3.5-5.1); Red Blood Count 3.11 M/mm3 (4.20-5.40); Red Cell Distribution Width 18.1 % (11.5-17.5); Sodium 140 mmol/L (136-145); White Blood Count 5.4 K/mm3 (4.8-10.8)
[2020-02-26 11:29] LABS: Alanine Aminotransferase 16 U/L (12-78); Albumin Level 3.7 g/dl (3.5-5.0); Alkaline Phosphatase 46 U/L (38-126); Anion Gap 13.7 mEq/L (5-15); Aspartate Amino Transferase 19 U/L (14-36); Bilirubin,Total 0.4 mg/dl (0.2-1.3); Blood Urea Nitrogen 21 mg/dl (7-17); Carbon Dioxide 25 mmol/L (22.0-30.0); Creatinine Clearance Estimated 62 mL/min (50-200); Estimated Glomerular Filt Rate 70 ml/min (>60); GFR (African American) 85 ML/MIN (>60)
[2020-02-26 11:30] LABS: Albumin/Globulin Ratio 1.4 (1.1-1.8); Calcium 9.2 mg/dl (8.4-10.2); Globulin 2.7 g/dL (1.3-3.2); Glucose 142 mg/dl (74-100); Total Protein,Serum 6.4 g/dl (6.3-8.2)
== END 2020-02-26 11:20 | disposition home or self-care (01) ==
LOC: INF 11:06
PROVIDERS: Visit Provider Physician Assistant
DX: Z45.2 Encounter for adjustment and management of vascular access device (principal); C56.1 Malignant neoplasm of right ovary
CPT/HCPCS: 80053; 85025; J1642

== ENCOUNTER 2020-04-01 11:08 | Outpatient (CLI) | payer MEDICARE, OTHER, SELFPAY ==
[2020-04-01 11:20] VITALS: BP 133/67; PULSE 94; RESP 18; TEMP 36.6; O2SAT 98
== END 2020-04-01 11:20 | disposition home or self-care (01) ==
LOC: INF 11:08
PROVIDERS: Visit Provider Family Medicine
DX: C54.9 Malignant neoplasm of corpus uteri, unspecified (principal); Z45.2 Encounter for adjustment and management of vascular access device
CPT/HCPCS: 96523; J1642

== ENCOUNTER 2020-06-10 11:20 | Outpatient (CLI) | payer MEDICARE, OTHER, SELFPAY | END 2020-06-10 11:35 | disposition home or self-care (01) | LOC: INF 11:26 | PROVIDERS: Visit Provider Family Medicine | DX: C57.00 Malignant neoplasm of unspecified fallopian tube (principal); Z45.2 Encounter for adjustment and management of vascular access device | CPT/HCPCS: 96523; J1642 ==

== ENCOUNTER 2020-08-28 14:27 | Outpatient (CLI) | payer MEDICARE, OTHER, SELFPAY | END 2020-08-28 14:35 | disposition home or self-care (01) | LOC: INF 14:27 | DX: C57.00 Malignant neoplasm of unspecified fallopian tube (principal); Z45.2 Encounter for adjustment and management of vascular access device | CPT/HCPCS: 96523; J1642 ==

== ENCOUNTER 2020-09-19 11:21 | Emergency (ER) | payer MEDICARE, OTHER, SELFPAY ==
[2020-09-19 11:30] VITALS: BP 130/84; PULSE 77; RESP 19; TEMP 36.9; O2SAT 99; BMI 31.4
--- NOTE | 2020-09-19 12:00 | HMH.EDUTC ---
[facility] [place] Clinical Impression: Urticaria Disposition: Home, Self-Care Condition on Discharge: Good Instructions: Hives, DI for Hives, Methylprednisolone Additional Instructions: Make sure to follow up with your Family Doctor and inform your Oncologist about your rash and reaction to unknown origin Take medications as prescribed Return if needed Straight to ER if any life threatening symptoms Look around and make sure that nothing has changed no soap, no shampoo no lotion no laundry detergent that may be causing your reaction Start oral Medrol dose pack tomorrow Prescriptions: methylPREDNISolone [Medrol 4mg tab] 4 mg PO DIRECTED #21 tab Transmission Status: Received by [email or web address] #[id number] Referrals: Aliyah Valencia [Primary Care Provider] - As needed Time of Disposition: 12:33 Medical Decision Making - Nghia Inquiry Pt receiving controlled substance: No Nghia was queried for this patient: No Vital Signs: 09/19/20 11:30 Temperature 98.4 F Temperature Source Oral Pulse Rate [Right Brachial] 77 Respiratory Rate 19 Blood Pressure [Right Arm] 130/84 Blood Pressure Mean [Right Arm] 99 Blood Pressure Source [Right Arm] Automatic Cuff Blood Pressure Position [Right Arm] Sitting 02 Sat by Pulse Oximetry 99 Oxygen Delivery Method Room Air Orders (Tests/Meds): ED MEDICATIONS Discontinued Medications Generic Name Dose Route Start Last Admin Trade Name Shweta PRN Reason Stop Dose Admin Methylprednisolone Sodium Succinate 125 mg 09/19/20 12:05 09/19/20 12:12 Methylprednisolone Sod Succ 125mg Vial IM 09/19/20 12:06 125 mg ONCE ONE Administration Medical Decision Narrative: Medication discussed with Pharmacy Rash and itching improved after injection [facility] [place] - General Stated complaint: possible shingles Time Seen by Provider: 09/19/20 11:35 Mode of Arrival: Ambulatory Source of Information: Patient Limitations: No Limitations Description of Symptoms (Recalled from Triage Doc. by RN): PATEINT C/O POSSIBLE SHINGLES X 1 MONTH HEENT Symptoms (Recalled from RN notes): No Resp Symptoms (Recalled from RN notes): No Skin Symptoms (Recalled from RN notes): No MS Symptoms (Recalled from RN notes): No Functional Status (Recalled from RN notes): WNL - History of Present Illness Provider Complaint: Patient state that she noticed about a month ago that she had a rash that started on the back of her neck around her hairline and her head would itch States that rash has since moved down her back, on her sides and upper legs State that she takes radiation and she was worried that she may have shingles - Related Data Home Medications Medication Instructions Recorded Confirmed Anastrozole 1 mg PO DAILY 01/30/18 01/22/20 Aspirin 81 mg PO DAILY 01/30/18 01/22/20 Cholecalciferol (Vitamin D3) 50,000 unit PO DAILY 01/30/18 01/22/20 [Vitamin D3 50,000 unit Cap] Furosemide [Furosemide 20mg Tab] 20 mg PO DAILY 01/30/18 01/22/20 Levothyroxine Sodium [Synthroid 50 mcg PO DAILY 01/30/18 01/22/20 25mcg (0.025mg) tablet] Potassium Chloride [K-Tab ER 10 10 meq PO DAILY 01/30/18 01/22/20 mEq] Simvastatin 40 mg PO DAILY 01/30/18 01/22/20 lisinopriL [Lisinopril 5mg Tablet] 5 mg PO DAILY 01/30/18 01/22/20 Prochlorperazine Maleate 10 mg PO DAILY PRN 07/30/18 01/22/20 dexAMETHasone [Decadron] 4 mg PO DAILY 07/30/18 01/22/20 Famotidine [Pepcid 20mg Tablet] 20 mg PO BID 09/09/19 01/22/20 ondansetron HCL [Ondansetron HCl] 8 mg PO BID 10/23/19 01/22/20 Previous Rx's Medication Instructions Recorded methylPREDNISolone [Medrol 4mg 4 mg PO DIRECTED #21 tab 09/19/20 tab] Allergies Allergy/AdvReac Type Severity Reaction Status Date / Time Sulfa (Sulfonamide Allergy Mild Verified 09/20/19 11:16 Antibiotics) morphine Allergy Verified 09/19/20 11:52 - Worker's Comp Is this a Worker's Comp case?: No H History - Hepatitis A Screen Drug use history?: No H
[2020-09-19 12:34] VITALS: BP 130/84; PULSE 77; RESP 19; TEMP 36.9; O2SAT 99
== END 2020-09-19 12:36 | disposition home or self-care (01) ==
PROVIDERS: Emergency Provider Nurse Practitioner; PCP Family Medicine
DX: L50.9 Urticaria, unspecified (principal); I10 Essential (primary) hypertension; E78.5 Hyperlipidemia, unspecified; I25.10 Atherosclerotic heart disease of native coronary artery without angina pectoris; E03.9 Hypothyroidism, unspecified; E05.00 Thyrotoxicosis with diffuse goiter without thyrotoxic crisis or storm; Z88.2 Allergy status to sulfonamides; Z88.5 Allergy status to narcotic agent; Z79.899 Other long term (current) drug therapy
CPT/HCPCS: 96372; 99202; G0463

== ENCOUNTER 2020-10-06 13:25 | Outpatient (CLI) | payer MEDICARE, OTHER, SELFPAY | END 2020-10-06 13:35 | disposition home or self-care (01) | LOC: INF 13:29 | PROVIDERS: Visit Provider Obstetrics & Gynecology Gynecologic Oncology | DX: C57.00 Malignant neoplasm of unspecified fallopian tube (principal); Z45.2 Encounter for adjustment and management of vascular access device | CPT/HCPCS: 96523; J1642 ==

== ENCOUNTER 2021-01-11 11:04 | Outpatient (CLI) | payer MEDICARE, OTHER, SELFPAY ==
[2021-01-11 11:23] VITALS: BP 146/80; PULSE 90; RESP 18; TEMP 36.4; O2SAT 98
== END 2021-01-11 11:25 | disposition home or self-care (01) ==
LOC: INF 11:04
PROVIDERS: Visit Provider Family Medicine
DX: Z45.2 Encounter for adjustment and management of vascular access device (principal)
CPT/HCPCS: 96523; J1642

== ENCOUNTER 2021-03-05 11:10 | Outpatient (CLI) | payer MEDICARE, OTHER, SELFPAY | END 2021-03-05 11:27 | disposition home or self-care (01) | LOC: INF 11:21 | PROVIDERS: Visit Provider Family Medicine | DX: C57.00 Malignant neoplasm of unspecified fallopian tube (principal); Z45.2 Encounter for adjustment and management of vascular access device | CPT/HCPCS: 96523; J1642 ==

== ENCOUNTER 2021-05-26 11:31 | Outpatient (CLI) | payer MEDICARE, OTHER, SELFPAY | END 2021-05-26 11:41 | disposition home or self-care (01) | LOC: INF 11:33 | PROVIDERS: PCP Family Medicine; Visit Provider Obstetrics & Gynecology | DX: Z45.2 Encounter for adjustment and management of vascular access device (principal) | CPT/HCPCS: 96523; J1642 ==

== ENCOUNTER 2021-08-10 11:37 | Outpatient (CLI) | payer MEDICARE, OTHER, SELFPAY ==
[2021-08-10 11:45] VITALS: BMI 31.8
[2021-08-10 12:04] LABS: Basophils # 0.1 K/mm3 (0-0.2); Basophils % 0.9 % (0.1-2.0); Eosinophils # 0.2 K/mm3 (0.0-0.4); Eosinophils % 2.7 % (0.1-12.0); Hemoglobin 13.2 g/dL (12.2-16.2); Lymphocytes # 1.1 K/mm3 (0.7-4.5); Lymphocytes % 19.1 % (10-50); Mean Corpuscular HGB Conc 30.7 g/dL (31.8-35.4); Mean Corpuscular Hemoglobin 30.9 pg (27.0-31.2); Mean Corpuscular Volume 100.3 fl (81-99); Mean Platelet Volume 8.5 fl (7.4-10.4); Monocytes # 0.3 K/mm3 (0.1-1.0); Monocytes % 4.3 % (1.7-9.3); Neutrophils # 4.3 K/mm3 (1.8-7.8); Platelet Count 294 K/mm3 (142-424); Red Blood Count 4.29 M/mm3 (4.20-5.40); Red Cell Distribution Width 13.7 % (11.5-17.5); White Blood Count 5.8 K/mm3 (4.8-10.8)
[2021-08-10 12:19] LABS: Chloride 103 mmol/L (98-107); Sodium 137 mmol/L (136-145)
[2021-08-10 12:20] LABS: Potassium 3.7 mmoL/L (3.5-5.1)
[2021-08-10 12:22] LABS: Alanine Aminotransferase 18 U/L (12-78); Albumin Level 3.7 g/dl (3.5-5.0); Albumin/Globulin Ratio 1.4 (1.1-1.8); Alkaline Phosphatase 41 U/L (38-126); Anion Gap 11.7 mEq/L (5-15); Aspartate Amino Transferase 31 U/L (14-36); Bilirubin,Total 0.5 mg/dl (0.2-1.3); Blood Urea Nitrogen 27 mg/dl (7-17); Carbon Dioxide 26 mmol/L (22.0-30.0); Creatinine Clearance Estimated 63 mL/min (50-200); Estimated Glomerular Filt Rate 70 ml/min (>60); GFR (African American) 85 ML/MIN (>60); Globulin 2.7 g/dL (1.3-3.2); Total Protein,Serum 6.4 g/dl (6.3-8.2)
[2021-08-10 12:23] LABS: Calcium 8.7 mg/dl (8.4-10.2); Glucose 149 mg/dl (74-100)
== END 2021-08-10 11:55 | disposition home or self-care (01) ==
LOC: INF 11:39
PROVIDERS: PCP Family Medicine; Visit Provider Obstetrics & Gynecology
DX: C57.00 Malignant neoplasm of unspecified fallopian tube (principal); Z45.2 Encounter for adjustment and management of vascular access device
CPT/HCPCS: 80053; 85025; J1642

== ENCOUNTER 2021-08-17 11:33 | Outpatient (CLI) | payer MEDICARE, OTHER, SELFPAY ==
[2021-08-17 11:39] VITALS: BMI 30.9
[2021-08-17 11:55] LABS: Basophils % 0.7 % (0.1-2.0); Eosinophils # 0.1 K/mm3 (0.0-0.4); Eosinophils % 1.6 % (0.1-12.0); Hematocrit 40.9 % (37.0-47.0); Hemoglobin 12.8 g/dL (12.2-16.2); Lymphocytes # 1.2 K/mm3 (0.7-4.5); Lymphocytes % 26.3 % (10-50); Mean Corpuscular HGB Conc 31.3 g/dL (31.8-35.4); Mean Corpuscular Hemoglobin 31.8 pg (27.0-31.2); Mean Corpuscular Volume 101.8 fl (81-99); Mean Platelet Volume 7.7 fl (7.4-10.4); Monocytes # 0.2 K/mm3 (0.1-1.0); Neutrophils # 2.9 K/mm3 (1.8-7.8); Neutrophils % 66.4 % (37.0-80.0); Platelet Count 255 K/mm3 (142-424); Red Blood Count 4.02 M/mm3 (4.20-5.40); Red Cell Distribution Width 14.6 % (11.5-17.5); White Blood Count 4.4 K/mm3 (4.8-10.8)
[2021-08-17 12:01] LABS: Chloride 102 mmol/L (98-107); Sodium 134 mmol/L (136-145)
[2021-08-17 12:03] LABS: Alanine Aminotransferase 18 U/L (12-78); Alkaline Phosphatase 35 U/L (38-126); Aspartate Amino Transferase 25 U/L (14-36); Bilirubin,Total 0.3 mg/dl (0.2-1.3); Blood Urea Nitrogen 22 mg/dl (7-17); Creatinine Clearance Estimated 61 mL/min (50-200); Estimated Glomerular Filt Rate 82 ml/min (>60); GFR (African American) 99 ML/MIN (>60)
[2021-08-17 12:04] LABS: Albumin Level 3.8 g/dl (3.5-5.0); Albumin/Globulin Ratio 1.4 (1.1-1.8); Calcium 9.5 mg/dl (8.4-10.2); Carbon Dioxide 29 mmol/L (22.0-30.0); Globulin 2.7 g/dL (1.3-3.2); Glucose 122 mg/dl (74-100); Total Protein,Serum 6.5 g/dl (6.3-8.2)
== END 2021-08-17 11:46 | disposition home or self-care (01) ==
LOC: INF 11:34
PROVIDERS: PCP Family Medicine; Visit Provider Family Medicine
DX: C57.00 Malignant neoplasm of unspecified fallopian tube (principal); Z45.2 Encounter for adjustment and management of vascular access device
CPT/HCPCS: 80053; 85025; J1642

== ENCOUNTER → 2021-08-25 09:42 | Outpatient (CLI) | payer MEDICARE, OTHER, SELFPAY | PROVIDERS: PCP Family Medicine; Visit Provider Nurse Practitioner | DX: Z20.822 Contact with and (suspected) exposure to COVID-19 (principal) | CPT/HCPCS: C9803; U0003; U0005 ==

== ENCOUNTER 2021-08-31 11:03 | Outpatient (CLI) | payer MEDICARE, OTHER, SELFPAY ==
[2021-08-31 11:08] VITALS: BMI 30.9
[2021-08-31 11:30] LABS: Basophils % 0.5 % (0.1-2.0); Eosinophils % 0.8 % (0.1-12.0); Hematocrit 40.9 % (37.0-47.0); Lymphocytes # 1.8 K/mm3 (0.7-4.5); Mean Corpuscular HGB Conc 31.8 g/dL (31.8-35.4); Mean Corpuscular Hemoglobin 31.5 pg (27.0-31.2); Mean Corpuscular Volume 98.9 fl (81-99); Mean Platelet Volume 8.3 fl (7.4-10.4); Monocytes # 0.2 K/mm3 (0.1-1.0); Monocytes % 5.6 % (1.7-9.3); Neutrophils # 1.9 K/mm3 (1.8-7.8); Neutrophils % 47.3 % (37.0-80.0); Platelet Count 296 K/mm3 (142-424); Red Blood Count 4.14 M/mm3 (4.20-5.40); Red Cell Distribution Width 14.8 % (11.5-17.5)
[2021-08-31 11:33] LABS: Chloride 99 mmol/L (98-107)
[2021-08-31 11:34] LABS: Potassium 3.6 mmoL/L (3.5-5.1); Sodium 131 mmol/L (136-145)
[2021-08-31 11:36] LABS: Alanine Aminotransferase 18 U/L (12-78); Aspartate Amino Transferase 26 U/L (14-36); Blood Urea Nitrogen 36 mg/dl (7-17); Creatinine Clearance Estimated 61 mL/min (50-200); Estimated Glomerular Filt Rate 70 ml/min (>60); GFR (African American) 85 ML/MIN (>60)
[2021-08-31 11:37] LABS: Albumin/Globulin Ratio 1.5 (1.1-1.8); Alkaline Phosphatase 37 U/L (38-126); Anion Gap 9.6 mEq/L (5-15); Bilirubin,Total 0.8 mg/dl (0.2-1.3); Calcium 9.2 mg/dl (8.4-10.2); Carbon Dioxide 26 mmol/L (22.0-30.0); Globulin 2.6 g/dL (1.3-3.2); Glucose 117 mg/dl (74-100); Total Protein,Serum 6.6 g/dl (6.3-8.2)
== END 2021-08-31 11:19 | disposition home or self-care (01) ==
LOC: INF 11:04
PROVIDERS: PCP Family Medicine; Visit Provider Obstetrics & Gynecology
DX: Z45.2 Encounter for adjustment and management of vascular access device (principal); C57.00 Malignant neoplasm of unspecified fallopian tube
CPT/HCPCS: 80053; 85025; J1642

== ENCOUNTER 2021-09-07 11:21 | Outpatient (CLI) | payer MEDICARE, OTHER, SELFPAY ==
[2021-09-07 11:26] VITALS: BMI 32.2
[2021-09-07 11:51] LABS: Basophils # 0.1 K/mm3 (0-0.2); Eosinophils % 0.6 % (0.1-12.0); Hematocrit 37.6 % (37.0-47.0); Hemoglobin 11.9 g/dL (12.2-16.2); Lymphocytes % 24.6 % (10-50); Mean Corpuscular HGB Conc 31.6 g/dL (31.8-35.4); Mean Corpuscular Hemoglobin 31.8 pg (27.0-31.2); Mean Corpuscular Volume 100.7 fl (81-99); Mean Platelet Volume 7.8 fl (7.4-10.4); Monocytes # 0.2 K/mm3 (0.1-1.0); Monocytes % 5.3 % (1.7-9.3); Neutrophils # 2.9 K/mm3 (1.8-7.8); Neutrophils % 67.5 % (37.0-80.0); Platelet Count 281 K/mm3 (142-424); Red Blood Count 3.74 M/mm3 (4.20-5.40); Red Cell Distribution Width 15.4 % (11.5-17.5); White Blood Count 4.2 K/mm3 (4.8-10.8)
[2021-09-07 13:12] LABS: Alanine Aminotransferase 20 U/L (12-78); Albumin Level 3.7 g/dl (3.5-5.0); Albumin/Globulin Ratio 1.5 (1.1-1.8); Alkaline Phosphatase 38 U/L (38-126); Anion Gap 9.6 mEq/L (5-15); Aspartate Amino Transferase 28 U/L (14-36); Bilirubin,Total 0.4 mg/dl (0.2-1.3); Blood Urea Nitrogen 18 mg/dl (7-17); Calcium 9.4 mg/dl (8.4-10.2); Carbon Dioxide 26 mmol/L (22.0-30.0); Chloride 106 mmol/L (98-107); Creatinine Clearance Estimated 63 mL/min (50-200); Estimated Glomerular Filt Rate 97 ml/min (>60); GFR (African American) 118 ML/MIN (>60); Globulin 2.5 g/dL (1.3-3.2); Glucose 115 mg/dl (74-100); Potassium 3.6 mmoL/L (3.5-5.1); Sodium 138 mmol/L (136-145); Total Protein,Serum 6.2 g/dl (6.3-8.2)
== END 2021-09-07 11:40 | disposition home or self-care (01) ==
PROVIDERS: PCP Family Medicine; Visit Provider Obstetrics & Gynecology
DX: C57.00 Malignant neoplasm of unspecified fallopian tube (principal); Z45.2 Encounter for adjustment and management of vascular access device
CPT/HCPCS: 80053; 85025; J1642

== ENCOUNTER → 2021-09-14 08:21 | Outpatient (CLI) | payer MEDICARE, OTHER, SELFPAY | PROVIDERS: Visit Provider Obstetrics & Gynecology | DX: Z45.2 Encounter for adjustment and management of vascular access device (principal) ==

== ENCOUNTER 2021-09-21 08:02 | Outpatient (CLI) | payer MEDICARE, OTHER, SELFPAY ==
[2021-09-21 11:29] VITALS: BMI 32.2
[2021-09-21 12:05] LABS: Basophils % 0.8 % (0.1-2.0); Eosinophils % 0.7 % (0.1-12.0); Hematocrit 37.4 % (37.0-47.0); Lymphocytes # 1.3 K/mm3 (0.7-4.5); Lymphocytes % 35.6 % (10-50); Mean Corpuscular HGB Conc 32.1 g/dL (31.8-35.4); Mean Corpuscular Hemoglobin 32.5 pg (27.0-31.2); Mean Corpuscular Volume 101.2 fl (81-99); Mean Platelet Volume 8.3 fl (7.4-10.4); Monocytes # 0.2 K/mm3 (0.1-1.0); Monocytes % 4.1 % (1.7-9.3); Neutrophils # 2.2 K/mm3 (1.8-7.8); Neutrophils % 58.8 % (37.0-80.0); Platelet Count 260 K/mm3 (142-424); Red Cell Distribution Width 16.5 % (11.5-17.5); White Blood Count 3.7 K/mm3 (4.8-10.8)
[2021-09-21 12:07] LABS: Chloride 99 mmol/L (98-107); Potassium 3.5 mmoL/L (3.5-5.1); Sodium 133 mmol/L (136-145)
[2021-09-21 12:09] LABS: Blood Urea Nitrogen 29 mg/dl (7-17); Creatinine Clearance Estimated 63 mL/min (50-200); Estimated Glomerular Filt Rate 82 ml/min (>60); GFR (African American) 99 ML/MIN (>60)
[2021-09-21 12:10] LABS: Alanine Aminotransferase 21 U/L (12-78); Albumin Level 3.8 g/dl (3.5-5.0); Albumin/Globulin Ratio 1.5 (1.1-1.8); Alkaline Phosphatase 46 U/L (38-126); Anion Gap 9.5 mEq/L (5-15); Aspartate Amino Transferase 27 U/L (14-36); Bilirubin,Total 0.5 mg/dl (0.2-1.3); Calcium 8.8 mg/dl (8.4-10.2); Carbon Dioxide 28 mmol/L (22.0-30.0); Globulin 2.6 g/dL (1.3-3.2); Glucose 133 mg/dl (74-100); Total Protein,Serum 6.4 g/dl (6.3-8.2)
== END 2021-09-21 11:43 | disposition home or self-care (01) ==
LOC: INF 08:03
PROVIDERS: Visit Provider Obstetrics & Gynecology
DX: C56.1 Malignant neoplasm of right ovary (principal); Z45.2 Encounter for adjustment and management of vascular access device
CPT/HCPCS: 80053; 85025; J1642

== ENCOUNTER 2021-09-28 08:21 | Outpatient (CLI) | payer MEDICARE, OTHER, SELFPAY ==
[2021-09-28 11:30] VITALS: BMI 32.2
[2021-09-28 11:53] LABS: Basophils % 0.5 % (0.1-2.0); Eosinophils % 0.3 % (0.1-12.0); Hematocrit 35.3 % (37.0-47.0); Hemoglobin 11.3 g/dL (12.2-16.2); Lymphocytes # 1.1 K/mm3 (0.7-4.5); Lymphocytes % 23.8 % (10-50); Mean Corpuscular HGB Conc 31.9 g/dL (31.8-35.4); Mean Corpuscular Hemoglobin 32.6 pg (27.0-31.2); Mean Corpuscular Volume 102.2 fl (81-99); Mean Platelet Volume 8.2 fl (7.4-10.4); Monocytes # 0.3 K/mm3 (0.1-1.0); Monocytes % 5.6 % (1.7-9.3); Neutrophils # 3.1 K/mm3 (1.8-7.8); Neutrophils % 69.7 % (37.0-80.0); Platelet Count 222 K/mm3 (142-424); Red Blood Count 3.46 M/mm3 (4.20-5.40); Red Cell Distribution Width 17.5 % (11.5-17.5); White Blood Count 4.4 K/mm3 (4.8-10.8)
[2021-09-28 11:56] LABS: Alanine Aminotransferase 21 U/L (12-78); Albumin Level 3.9 g/dl (3.5-5.0); Albumin/Globulin Ratio 1.5 (1.1-1.8); Alkaline Phosphatase 38 U/L (38-126); Anion Gap 9.7 mEq/L (5-15); Aspartate Amino Transferase 27 U/L (14-36); Bilirubin,Total 0.6 mg/dl (0.2-1.3); Blood Urea Nitrogen 21 mg/dl (7-17); Calcium 9.2 mg/dl (8.4-10.2); Carbon Dioxide 27 mmol/L (22.0-30.0); Chloride 105 mmol/L (98-107); Creatinine Clearance Estimated 62 mL/min (50-200); Estimated Glomerular Filt Rate 97 ml/min (>60); GFR (African American) 118 ML/MIN (>60); Globulin 2.6 g/dL (1.3-3.2); Glucose 117 mg/dl (74-100); Potassium 3.7 mmoL/L (3.5-5.1); Sodium 138 mmol/L (136-145); Total Protein,Serum 6.5 g/dl (6.3-8.2)
--- NOTE | 2021-09-28 11:58 | PC.NURSE ---
09/28/21 @1100: MEDIPORT ACCESSED AND BLOOD RETURN NOTED. LABS DRAWN PER ORDER AND PORT WAS FLUSHED WITH 500 UNITS HEPARIN. PT TOLERATED WELL.
== END 2021-09-28 11:30 | disposition home or self-care (01) ==
PROVIDERS: Visit Provider Obstetrics & Gynecology
DX: C56.1 Malignant neoplasm of right ovary (principal); Z45.2 Encounter for adjustment and management of vascular access device
CPT/HCPCS: 80053; 85025; J1642

== ENCOUNTER 2021-10-12 11:10 | Outpatient (CLI) | payer MEDICARE, OTHER, SELFPAY ==
[2021-10-12 11:18] VITALS: BMI 30.9
[2021-10-12 11:40] LABS: Basophils % 0.6 % (0.1-2.0); Eosinophils % 0.9 % (0.1-12.0); Hematocrit 36.4 % (37.0-47.0); Hemoglobin 11.6 g/dL (12.2-16.2); Lymphocytes # 1.2 K/mm3 (0.7-4.5); Lymphocytes % 31.5 % (10-50); Mean Corpuscular HGB Conc 31.7 g/dL (31.8-35.4); Mean Corpuscular Hemoglobin 33.6 pg (27.0-31.2); Mean Corpuscular Volume 105.9 fl (81-99); Mean Platelet Volume 9.6 fl (7.4-10.4); Monocytes # 0.2 K/mm3 (0.1-1.0); Monocytes % 5.9 % (1.7-9.3); Neutrophils # 2.2 K/mm3 (1.8-7.8); Neutrophils % 61.2 % (37.0-80.0); Platelet Count 295 K/mm3 (142-424); Red Blood Count 3.44 M/mm3 (4.20-5.40); Red Cell Distribution Width 18.6 % (11.5-17.5); White Blood Count 3.6 K/mm3 (4.8-10.8)
[2021-10-12 11:47] LABS: Alanine Aminotransferase 21 U/L (12-78); Albumin Level 3.8 g/dl (3.5-5.0); Albumin/Globulin Ratio 1.5 (1.1-1.8); Alkaline Phosphatase 39 U/L (38-126); Anion Gap 9.6 mEq/L (5-15); Aspartate Amino Transferase 23 U/L (14-36); Bilirubin,Total 0.6 mg/dl (0.2-1.3); Blood Urea Nitrogen 23 mg/dl (7-17); Calcium 8.5 mg/dl (8.4-10.2); Carbon Dioxide 26 mmol/L (22.0-30.0); Chloride 106 mmol/L (98-107); Creatinine Clearance Estimated 60 mL/min (50-200); Estimated Glomerular Filt Rate 97 ml/min (>60); GFR (African American) 118 ML/MIN (>60); Globulin 2.5 g/dL (1.3-3.2); Glucose 103 mg/dl (74-100); Potassium 3.6 mmoL/L (3.5-5.1); Sodium 138 mmol/L (136-145); Total Protein,Serum 6.3 g/dl (6.3-8.2)
== END 2021-10-12 11:40 | disposition home or self-care (01) ==
LOC: INF 11:11
PROVIDERS: PCP Family Medicine; Visit Provider Obstetrics & Gynecology
DX: Z45.2 Encounter for adjustment and management of vascular access device (principal); C57.00 Malignant neoplasm of unspecified fallopian tube; C54.9 Malignant neoplasm of corpus uteri, unspecified
CPT/HCPCS: 80053; 85025; J1642

== ENCOUNTER 2021-10-19 11:38 | Outpatient (CLI) | payer MEDICARE, OTHER, SELFPAY ==
[2021-10-19 11:41] VITALS: BMI 30.9
[2021-10-19 12:05] LABS: Chloride 108 mmol/L (98-107)
[2021-10-19 12:06] LABS: Potassium 3.8 mmoL/L (3.5-5.1); Sodium 139 mmol/L (136-145)
[2021-10-19 12:07] LABS: Basophils % 0.7 % (0.1-2.0); Eosinophils % 0.4 % (0.1-12.0); Hematocrit 34.8 % (37.0-47.0); Hemoglobin 11.1 g/dL (12.2-16.2); Lymphocytes # 0.8 K/mm3 (0.7-4.5); Lymphocytes % 20.1 % (10-50); Mean Corpuscular HGB Conc 31.9 g/dL (31.8-35.4); Mean Corpuscular Hemoglobin 34.3 pg (27.0-31.2); Mean Corpuscular Volume 107.4 fl (81-99); Monocytes # 0.2 K/mm3 (0.1-1.0); Monocytes % 5.9 % (1.7-9.3); Neutrophils % 72.8 % (37.0-80.0); Platelet Count 253 K/mm3 (142-424); Red Blood Count 3.24 M/mm3 (4.20-5.40); Red Cell Distribution Width 18.8 % (11.5-17.5); White Blood Count 4.1 K/mm3 (4.8-10.8)
[2021-10-19 12:08] LABS: Alanine Aminotransferase 24 U/L (12-78); Albumin Level 3.8 g/dl (3.5-5.0); Albumin/Globulin Ratio 1.5 (1.1-1.8); Alkaline Phosphatase 45 U/L (38-126); Anion Gap 8.8 mEq/L (5-15); Aspartate Amino Transferase 25 U/L (14-36); Bilirubin,Total 0.6 mg/dl (0.2-1.3); Blood Urea Nitrogen 20 mg/dl (7-17); Carbon Dioxide 26 mmol/L (22.0-30.0); Creatinine Clearance Estimated 60 mL/min (50-200); Estimated Glomerular Filt Rate 81 ml/min (>60); GFR (African American) 98 ML/MIN (>60); Globulin 2.5 g/dL (1.3-3.2); Total Protein,Serum 6.3 g/dl (6.3-8.2)
[2021-10-19 12:09] LABS: Calcium 8.7 mg/dl (8.4-10.2); Glucose 118 mg/dl (74-100)
== END 2021-10-19 11:51 | disposition home or self-care (01) ==
LOC: INF 11:39
PROVIDERS: PCP Family Medicine; Visit Provider Obstetrics & Gynecology
DX: C56.1 Malignant neoplasm of right ovary (principal); Z45.2 Encounter for adjustment and management of vascular access device
CPT/HCPCS: 80053; 85025; J1642

== ENCOUNTER 2021-11-02 11:28 | Outpatient (CLI) | payer MEDICARE, OTHER, SELFPAY ==
[2021-11-02 11:35] VITALS: BMI 30.9
[2021-11-02 11:56] LABS: Basophils % 0.4 % (0.1-2.0); Eosinophils # 0.1 K/mm3 (0.0-0.4); Eosinophils % 1.4 % (0.1-12.0); Hematocrit 36.1 % (37.0-47.0); Hemoglobin 11.6 g/dL (12.2-16.2); Lymphocytes # 1.2 K/mm3 (0.7-4.5); Lymphocytes % 28.6 % (10-50); Mean Corpuscular HGB Conc 32.1 g/dL (31.8-35.4); Mean Corpuscular Hemoglobin 35.1 pg (27.0-31.2); Mean Corpuscular Volume 109.2 fl (81-99); Mean Platelet Volume 8.6 fl (7.4-10.4); Monocytes # 0.2 K/mm3 (0.1-1.0); Monocytes % 5.4 % (1.7-9.3); Neutrophils # 2.6 K/mm3 (1.8-7.8); Neutrophils % 64.2 % (37.0-80.0); Platelet Count 266 K/mm3 (142-424); Red Cell Distribution Width 18.5 % (11.5-17.5); White Blood Count 4.1 K/mm3 (4.8-10.8)
[2021-11-02 12:00] LABS: Chloride 104 mmol/L (98-107); Potassium 3.7 mmoL/L (3.5-5.1); Sodium 138 mmol/L (136-145)
[2021-11-02 12:03] LABS: Alanine Aminotransferase 20 U/L (12-78); Albumin Level 3.6 g/dl (3.5-5.0); Albumin/Globulin Ratio 1.5 (1.1-1.8); Alkaline Phosphatase 45 U/L (38-126); Anion Gap 8.7 mEq/L (5-15); Aspartate Amino Transferase 25 U/L (14-36); Bilirubin,Total 0.5 mg/dl (0.2-1.3); Calcium 8.7 mg/dl (8.4-10.2); Carbon Dioxide 29 mmol/L (22.0-30.0); Globulin 2.4 g/dL (1.3-3.2); Glucose 140 mg/dl (74-100)
[2021-11-02 12:08] LABS: Blood Urea Nitrogen 24 mg/dl (7-17); Creatinine Clearance Estimated 60 mL/min (50-200); Estimated Glomerular Filt Rate 81 ml/min (>60); GFR (African American) 98 ML/MIN (>60)
== END 2021-11-02 11:30 | disposition home or self-care (01) ==
LOC: INF 11:30
PROVIDERS: PCP Family Medicine; Visit Provider Obstetrics & Gynecology
DX: C57.00 Malignant neoplasm of unspecified fallopian tube (principal); Z45.2 Encounter for adjustment and management of vascular access device
CPT/HCPCS: 80053; 85025; J1642

== ENCOUNTER 2021-11-09 11:44 | Outpatient (CLI) | payer MEDICARE, OTHER, SELFPAY ==
[2021-11-09 11:58] VITALS: BMI 30.9
[2021-11-09 12:15] LABS: Basophils % 0.9 % (0.1-2.0); Eosinophils % 0.6 % (0.1-12.0); Hematocrit 32.9 % (37.0-47.0); Hemoglobin 10.9 g/dL (12.2-16.2); Lymphocytes # 0.9 K/mm3 (0.7-4.5); Lymphocytes % 22.2 % (10-50); Mean Corpuscular Hemoglobin 36.6 pg (27.0-31.2); Mean Corpuscular Volume 110.9 fl (81-99); Mean Platelet Volume 8.3 fl (7.4-10.4); Monocytes # 0.3 K/mm3 (0.1-1.0); Monocytes % 6.2 % (1.7-9.3); Neutrophils # 2.8 K/mm3 (1.8-7.8); Neutrophils % 70.3 % (37.0-80.0); Platelet Count 213 K/mm3 (142-424); Red Blood Count 2.97 M/mm3 (4.20-5.40); Red Cell Distribution Width 18.5 % (11.5-17.5); White Blood Count 4.1 K/mm3 (4.8-10.8)
[2021-11-09 12:23] LABS: Alanine Aminotransferase 21 U/L (12-78); Albumin Level 3.8 g/dl (3.5-5.0); Albumin/Globulin Ratio 1.5 (1.1-1.8); Alkaline Phosphatase 41 U/L (38-126); Anion Gap 8.7 mEq/L (5-15); Aspartate Amino Transferase 23 U/L (14-36); Bilirubin,Total 0.5 mg/dl (0.2-1.3); Blood Urea Nitrogen 20 mg/dl (7-17); Carbon Dioxide 27 mmol/L (22.0-30.0); Chloride 107 mmol/L (98-107); Creatinine Clearance Estimated 60 mL/min (50-200); Estimated Glomerular Filt Rate 97 ml/min (>60); GFR (African American) 118 ML/MIN (>60); Globulin 2.5 g/dL (1.3-3.2); Glucose 100 mg/dl (74-100); Potassium 3.7 mmoL/L (3.5-5.1); Sodium 139 mmol/L (136-145); Total Protein,Serum 6.3 g/dl (6.3-8.2)
== END 2021-11-09 12:10 | disposition home or self-care (01) ==
PROVIDERS: PCP Family Medicine; Visit Provider Obstetrics & Gynecology
DX: C57.00 Malignant neoplasm of unspecified fallopian tube (principal)
CPT/HCPCS: 80053; 85025; J1642

== ENCOUNTER 2021-11-23 11:40 | Outpatient (CLI) | payer MEDICARE, OTHER, SELFPAY ==
[2021-11-23 11:46] VITALS: BMI 30.9
[2021-11-23 12:22] LABS: Basophils % 0.2 % (0.1-2.0); Chloride 103 mmol/L (98-107); Eosinophils % 0.7 % (0.1-12.0); Hematocrit 36.2 % (37.0-47.0); Hemoglobin 11.7 g/dL (12.2-16.2); Lymphocytes # 1.1 K/mm3 (0.7-4.5); Mean Corpuscular HGB Conc 32.4 g/dL (31.8-35.4); Mean Corpuscular Hemoglobin 35.2 pg (27.0-31.2); Mean Corpuscular Volume 108.7 fl (81-99); Mean Platelet Volume 7.8 fl (7.4-10.4); Monocytes # 0.2 K/mm3 (0.1-1.0); Monocytes % 5.4 % (1.7-9.3); Neutrophils # 2.9 K/mm3 (1.8-7.8); Neutrophils % 67.8 % (37.0-80.0); Platelet Count 277 K/mm3 (142-424); Potassium 3.7 mmoL/L (3.5-5.1); Red Blood Count 3.33 M/mm3 (4.20-5.40); Red Cell Distribution Width 16.9 % (11.5-17.5); Sodium 137 mmol/L (136-145); White Blood Count 4.2 K/mm3 (4.8-10.8)
[2021-11-23 12:25] LABS: Alanine Aminotransferase 23 U/L (12-78); Albumin Level 3.9 g/dl (3.5-5.0); Albumin/Globulin Ratio 1.6 (1.1-1.8); Alkaline Phosphatase 45 U/L (38-126); Anion Gap 9.7 mEq/L (5-15); Aspartate Amino Transferase 27 U/L (14-36); Bilirubin,Total 0.7 mg/dl (0.2-1.3); Blood Urea Nitrogen 30 mg/dl (7-17); Calcium 9.9 mg/dl (8.4-10.2); Carbon Dioxide 28 mmol/L (22.0-30.0); Creatinine Clearance Estimated 60 mL/min (50-200); Estimated Glomerular Filt Rate 70 ml/min (>60); GFR (African American) 84 ML/MIN (>60); Globulin 2.4 g/dL (1.3-3.2); Glucose 116 mg/dl (74-100); Total Protein,Serum 6.3 g/dl (6.3-8.2)
== END 2021-11-23 12:10 | disposition home or self-care (01) ==
LOC: INF 11:43
PROVIDERS: PCP Physician Assistant; Visit Provider Obstetrics & Gynecology
DX: Z45.2 Encounter for adjustment and management of vascular access device (principal); C57.00 Malignant neoplasm of unspecified fallopian tube
CPT/HCPCS: 80053; 85025; J1642

== ENCOUNTER 2021-11-30 11:38 | Outpatient (CLI) | payer MEDICARE, OTHER, SELFPAY ==
[2021-11-30 11:46] VITALS: BMI 30.9
[2021-11-30 12:02] LABS: Basophils # 0.1 K/mm3 (0-0.2); Basophils % 1.4 % (0.1-2.0); Eosinophils % 1.1 % (0.1-12.0); Hematocrit 33.2 % (37.0-47.0); Hemoglobin 10.8 g/dL (12.2-16.2); Lymphocytes # 1.1 K/mm3 (0.7-4.5); Lymphocytes % 27.2 % (10-50); Mean Corpuscular HGB Conc 32.4 g/dL (31.8-35.4); Mean Corpuscular Hemoglobin 36.5 pg (27.0-31.2); Mean Corpuscular Volume 112.5 fl (81-99); Mean Platelet Volume 8.4 fl (7.4-10.4); Monocytes # 0.2 K/mm3 (0.1-1.0); Monocytes % 5.8 % (1.7-9.3); Neutrophils # 2.5 K/mm3 (1.8-7.8); Neutrophils % 64.5 % (37.0-80.0); Platelet Count 223 K/mm3 (142-424); Red Blood Count 2.95 M/mm3 (4.20-5.40); Red Cell Distribution Width 16.9 % (11.5-17.5); White Blood Count 3.8 K/mm3 (4.8-10.8)
[2021-11-30 12:10] LABS: Chloride 107 mmol/L (98-107); Sodium 140 mmol/L (136-145)
[2021-11-30 12:11] LABS: Potassium 3.5 mmoL/L (3.5-5.1)
[2021-11-30 12:13] LABS: Alanine Aminotransferase 22 U/L (12-78); Albumin Level 3.6 g/dl (3.5-5.0); Albumin/Globulin Ratio 1.4 (1.1-1.8); Alkaline Phosphatase 42 U/L (38-126); Anion Gap 8.5 mEq/L (5-15); Aspartate Amino Transferase 25 U/L (14-36); Bilirubin,Total 0.4 mg/dl (0.2-1.3); Blood Urea Nitrogen 17 mg/dl (7-17); Calcium 9.6 mg/dl (8.4-10.2); Carbon Dioxide 28 mmol/L (22.0-30.0); Creatinine Clearance Estimated 60 mL/min (50-200); Estimated Glomerular Filt Rate 81 ml/min (>60); GFR (African American) 98 ML/MIN (>60); Globulin 2.5 g/dL (1.3-3.2); Glucose 112 mg/dl (74-100); Total Protein,Serum 6.1 g/dl (6.3-8.2)
== END 2021-11-30 11:59 | disposition home or self-care (01) ==
LOC: INF 11:40
PROVIDERS: PCP Physician Assistant; Visit Provider Obstetrics & Gynecology
DX: C57.00 Malignant neoplasm of unspecified fallopian tube (principal); Z45.2 Encounter for adjustment and management of vascular access device
CPT/HCPCS: 80053; 85025; J1642

== ENCOUNTER 2021-12-07 11:19 | Outpatient (CLI) | payer MEDICARE, OTHER, SELFPAY ==
[2021-12-07 11:24] VITALS: BMI 30.9
[2021-12-07 11:53] LABS: Eosinophils % 1.1 % (0.1-12.0); Hematocrit 33.7 % (37.0-47.0); Hemoglobin 11.2 g/dL (12.2-16.2); Lymphocytes # 1.2 K/mm3 (0.7-4.5); Lymphocytes % 36.2 % (10-50); Mean Corpuscular HGB Conc 33.1 g/dL (31.8-35.4); Mean Corpuscular Hemoglobin 37.4 pg (27.0-31.2); Mean Platelet Volume 9.1 fl (7.4-10.4); Monocytes # 0.1 K/mm3 (0.1-1.0); Monocytes % 3.7 % (1.7-9.3); Neutrophils # 1.9 K/mm3 (1.8-7.8); Neutrophils % 58.1 % (37.0-80.0); Platelet Count 197 K/mm3 (142-424); Red Blood Count 2.99 M/mm3 (4.20-5.40); Red Cell Distribution Width 16.3 % (11.5-17.5); White Blood Count 3.3 K/mm3 (4.8-10.8)
[2021-12-07 11:54] LABS: Chloride 108 mmol/L (98-107); Potassium 3.7 mmoL/L (3.5-5.1); Sodium 140 mmol/L (136-145)
[2021-12-07 11:57] LABS: Alanine Aminotransferase 20 U/L (12-78); Albumin Level 3.7 g/dl (3.5-5.0); Albumin/Globulin Ratio 1.4 (1.1-1.8); Alkaline Phosphatase 48 U/L (38-126); Anion Gap 9.7 mEq/L (5-15); Aspartate Amino Transferase 28 U/L (14-36); Bilirubin,Total 0.5 mg/dl (0.2-1.3); Blood Urea Nitrogen 24 mg/dl (7-17); Carbon Dioxide 26 mmol/L (22.0-30.0); Creatinine Clearance Estimated 60 mL/min (50-200); Estimated Glomerular Filt Rate 81 ml/min (>60); GFR (African American) 98 ML/MIN (>60); Globulin 2.6 g/dL (1.3-3.2); Total Protein,Serum 6.3 g/dl (6.3-8.2)
[2021-12-07 11:58] LABS: Calcium 9.5 mg/dl (8.4-10.2); Glucose 122 mg/dl (74-100)
== END 2021-12-07 11:40 | disposition home or self-care (01) ==
LOC: INF 11:21
PROVIDERS: PCP Family Medicine; Visit Provider Obstetrics & Gynecology
DX: C57.00 Malignant neoplasm of unspecified fallopian tube (principal); Z45.2 Encounter for adjustment and management of vascular access device
CPT/HCPCS: 36591; 80053; 85025; J1642

== ENCOUNTER 2021-12-15 11:35 | Outpatient (CLI) | payer MEDICARE, OTHER, SELFPAY ==
[2021-12-15 11:42] VITALS: BMI 30.9
[2021-12-15 11:59] LABS: Basophils % 1.2 % (0.1-2.0); Eosinophils # 0.1 K/mm3 (0.0-0.4); Eosinophils % 2.3 % (0.1-12.0); Hematocrit 33.8 % (37.0-47.0); Hemoglobin 11.1 g/dL (12.2-16.2); Lymphocytes # 1.1 K/mm3 (0.7-4.5); Lymphocytes % 32.5 % (10-50); Mean Corpuscular HGB Conc 32.8 g/dL (31.8-35.4); Mean Corpuscular Hemoglobin 37.3 pg (27.0-31.2); Mean Corpuscular Volume 113.6 fl (81-99); Monocytes # 0.2 K/mm3 (0.1-1.0); Monocytes % 5.1 % (1.7-9.3); Neutrophils # 1.9 K/mm3 (1.8-7.8); Neutrophils % 58.8 % (37.0-80.0); Platelet Count 276 K/mm3 (142-424); Red Blood Count 2.97 M/mm3 (4.20-5.40); Red Cell Distribution Width 15.7 % (11.5-17.5); White Blood Count 3.3 K/mm3 (4.8-10.8)
[2021-12-15 12:05] LABS: Chloride 103 mmol/L (98-107); Potassium 3.6 mmoL/L (3.5-5.1); Sodium 138 mmol/L (136-145)
[2021-12-15 12:08] LABS: Alanine Aminotransferase 22 U/L (12-78); Albumin Level 3.8 g/dl (3.5-5.0); Albumin/Globulin Ratio 1.5 (1.1-1.8); Alkaline Phosphatase 52 U/L (38-126); Anion Gap 8.6 mEq/L (5-15); Aspartate Amino Transferase 26 U/L (14-36); Bilirubin,Total 0.4 mg/dl (0.2-1.3); Blood Urea Nitrogen 23 mg/dl (7-17); Carbon Dioxide 30 mmol/L (22.0-30.0); Creatinine Clearance Estimated 60 mL/min (50-200); Estimated Glomerular Filt Rate 70 ml/min (>60); GFR (African American) 84 ML/MIN (>60); Globulin 2.5 g/dL (1.3-3.2); Total Protein,Serum 6.3 g/dl (6.3-8.2)
[2021-12-15 12:09] LABS: Calcium 9.6 mg/dl (8.4-10.2); Glucose 114 mg/dl (74-100)
== END 2021-12-15 11:55 | disposition home or self-care (01) ==
LOC: INF 11:37
PROVIDERS: Visit Provider Obstetrics & Gynecology
DX: C57.00 Malignant neoplasm of unspecified fallopian tube (principal); Z45.2 Encounter for adjustment and management of vascular access device
CPT/HCPCS: 36591; 80053; 85025; J1642

== ENCOUNTER 2021-12-21 11:25 | Outpatient (CLI) | payer MEDICARE, OTHER, SELFPAY ==
[2021-12-21 11:27] VITALS: BMI 30.9
[2021-12-21 11:52] LABS: Basophils # 0.1 K/mm3 (0-0.2); Basophils % 1.7 % (0.1-2.0); Eosinophils # 0.1 K/mm3 (0.0-0.4); Eosinophils % 1.9 % (0.1-12.0); Hematocrit 35.5 % (37.0-47.0); Hemoglobin 11.5 g/dL (12.2-16.2); Lymphocytes # 1.1 K/mm3 (0.7-4.5); Lymphocytes % 29.8 % (10-50); Mean Corpuscular HGB Conc 32.4 g/dL (31.8-35.4); Mean Corpuscular Hemoglobin 36.5 pg (27.0-31.2); Mean Corpuscular Volume 112.5 fl (81-99); Mean Platelet Volume 8.6 fl (7.4-10.4); Monocytes # 0.2 K/mm3 (0.1-1.0); Neutrophils # 2.3 K/mm3 (1.8-7.8); Neutrophils % 61.7 % (37.0-80.0); Platelet Count 330 K/mm3 (142-424); Red Blood Count 3.16 M/mm3 (4.20-5.40); Red Cell Distribution Width 15.3 % (11.5-17.5); White Blood Count 3.8 K/mm3 (4.8-10.8)
[2021-12-21 11:57] LABS: Alanine Aminotransferase 23 U/L (12-78); Albumin Level 4.1 g/dl (3.5-5.0); Albumin/Globulin Ratio 1.6 (1.1-1.8); Alkaline Phosphatase 54 U/L (38-126); Aspartate Amino Transferase 32 U/L (14-36); Bilirubin,Total 0.4 mg/dl (0.2-1.3); Calcium 9.8 mg/dl (8.4-10.2); Carbon Dioxide 29 mmol/L (22.0-30.0); Globulin 2.6 g/dL (1.3-3.2); Glucose 133 mg/dl (74-100); Total Protein,Serum 6.7 g/dl (6.3-8.2)
[2021-12-21 12:33] LABS: Anion Gap 10.6 mEq/L (5-15); Blood Urea Nitrogen 22 mg/dl (7-17); Chloride 103 mmol/L (98-107); Creatinine Clearance Estimated 60 mL/min (50-200); Estimated Glomerular Filt Rate 70 ml/min (>60); GFR (African American) 84 ML/MIN (>60); Potassium 3.6 mmoL/L (3.5-5.1); Sodium 139 mmol/L (136-145)
== END 2021-12-21 11:36 | disposition home or self-care (01) ==
LOC: INF 11:26
PROVIDERS: Visit Provider Obstetrics & Gynecology
DX: C57.00 Malignant neoplasm of unspecified fallopian tube (principal); Z95.2 Presence of prosthetic heart valve
CPT/HCPCS: 36591; 80053; 85025; J1642

== ENCOUNTER 2021-12-28 11:22 | Outpatient (CLI) | payer MEDICARE, OTHER, SELFPAY ==
[2021-12-28 11:26] VITALS: BMI 30.9
[2021-12-28 11:40] LABS: Basophils # 0.1 K/mm3 (0-0.2); Basophils % 1.5 % (0.1-2.0); Eosinophils # 0.1 K/mm3 (0.0-0.4); Eosinophils % 2.5 % (0.1-12.0); Hematocrit 36.5 % (37.0-47.0); Hemoglobin 11.7 g/dL (12.2-16.2); Lymphocytes # 1.1 K/mm3 (0.7-4.5); Lymphocytes % 28.2 % (10-50); Mean Corpuscular Volume 112.6 fl (81-99); Mean Platelet Volume 9.6 fl (7.4-10.4); Monocytes # 0.2 K/mm3 (0.1-1.0); Monocytes % 4.2 % (1.7-9.3); Neutrophils # 2.5 K/mm3 (1.8-7.8); Neutrophils % 63.5 % (37.0-80.0); Platelet Count 314 K/mm3 (142-424); Red Blood Count 3.24 M/mm3 (4.20-5.40); Red Cell Distribution Width 14.8 % (11.5-17.5)
[2021-12-28 11:49] LABS: Chloride 105 mmol/L (98-107); Potassium 3.5 mmoL/L (3.5-5.1); Sodium 140 mmol/L (136-145)
[2021-12-28 11:52] LABS: Alanine Aminotransferase 22 U/L (12-78); Albumin Level 4.2 g/dl (3.5-5.0); Albumin/Globulin Ratio 1.7 (1.1-1.8); Alkaline Phosphatase 51 U/L (38-126); Anion Gap 11.5 mEq/L (5-15); Aspartate Amino Transferase 31 U/L (14-36); Bilirubin,Total 0.4 mg/dl (0.2-1.3); Blood Urea Nitrogen 28 mg/dl (7-17); Calcium 9.5 mg/dl (8.4-10.2); Carbon Dioxide 27 mmol/L (22.0-30.0); Creatinine Clearance Estimated 60 mL/min (50-200); Estimated Glomerular Filt Rate 70 ml/min (>60); GFR (African American) 84 ML/MIN (>60); Globulin 2.5 g/dL (1.3-3.2); Glucose 122 mg/dl (74-100); Total Protein,Serum 6.7 g/dl (6.3-8.2)
== END 2021-12-28 11:33 | disposition home or self-care (01) ==
LOC: INF 11:24
PROVIDERS: Visit Provider Obstetrics & Gynecology
DX: C57.00 Malignant neoplasm of unspecified fallopian tube (principal); Z45.2 Encounter for adjustment and management of vascular access device
CPT/HCPCS: 36591; 80053; 85025; J1642

== ENCOUNTER 2022-01-11 11:29 | Outpatient (CLI) | payer MEDICARE, OTHER, SELFPAY ==
[2022-01-11 11:43] VITALS: BMI 30.9
[2022-01-11 11:58] LABS: Basophils # 0.1 K/mm3 (0-0.2); Basophils % 1.4 % (0.1-2.0); Eosinophils # 0.1 K/mm3 (0.0-0.4); Eosinophils % 2.9 % (0.1-12.0); Hematocrit 36.6 % (37.0-47.0); Hemoglobin 11.9 g/dL (12.2-16.2); Lymphocytes # 0.9 K/mm3 (0.7-4.5); Lymphocytes % 20.2 % (10-50); Mean Corpuscular HGB Conc 32.6 g/dL (31.8-35.4); Mean Corpuscular Hemoglobin 36.2 pg (27.0-31.2); Mean Platelet Volume 8.3 fl (7.4-10.4); Monocytes # 0.2 K/mm3 (0.1-1.0); Monocytes % 3.9 % (1.7-9.3); Neutrophils # 3.2 K/mm3 (1.8-7.8); Neutrophils % 71.6 % (37.0-80.0); Platelet Count 321 K/mm3 (142-424); Red Cell Distribution Width 14.3 % (11.5-17.5); White Blood Count 4.4 K/mm3 (4.8-10.8)
[2022-01-11 11:59] LABS: Chloride 104 mmol/L (98-107); Potassium 3.5 mmoL/L (3.5-5.1); Sodium 139 mmol/L (136-145)
[2022-01-11 12:00] VITALS: BP 134/79; PULSE 76; RESP 16; TEMP 36.6; O2SAT 98
[2022-01-11 12:02] LABS: Alanine Aminotransferase 22 U/L (12-78); Albumin/Globulin Ratio 1.6 (1.1-1.8); Alkaline Phosphatase 46 U/L (38-126); Anion Gap 11.5 mEq/L (5-15); Aspartate Amino Transferase 28 U/L (14-36); Bilirubin,Total 0.4 mg/dl (0.2-1.3); Blood Urea Nitrogen 24 mg/dl (7-17); Calcium 9.6 mg/dl (8.4-10.2); Carbon Dioxide 27 mmol/L (22.0-30.0); Creatinine Clearance Estimated 60 mL/min (50-200); Estimated Glomerular Filt Rate 70 ml/min (>60); GFR (African American) 84 ML/MIN (>60); Globulin 2.5 g/dL (1.3-3.2); Glucose 174 mg/dl (74-100); Total Protein,Serum 6.5 g/dl (6.3-8.2)
== END 2022-01-11 12:00 | disposition home or self-care (01) ==
LOC: INF 11:31
PROVIDERS: Visit Provider Obstetrics & Gynecology
DX: C57.00 Malignant neoplasm of unspecified fallopian tube (principal); Z45.2 Encounter for adjustment and management of vascular access device
CPT/HCPCS: 36591; 80053; 85025; J1642

== ENCOUNTER → 2022-01-18 10:54 | Outpatient (CLI) | payer MEDICARE, OTHER, SELFPAY ==
[2022-01-18 11:06] VITALS: BMI 30.9
[2022-01-18 11:19] LABS: Basophils # 0.1 K/mm3 (0-0.2); Eosinophils # 0.2 K/mm3 (0.0-0.4); Eosinophils % 4.2 % (0.1-12.0); Hematocrit 36.3 % (37.0-47.0); Hemoglobin 11.7 g/dL (12.2-16.2); Lymphocytes % 22.3 % (10-50); Mean Corpuscular HGB Conc 32.2 g/dL (31.8-35.4); Mean Corpuscular Hemoglobin 35.2 pg (27.0-31.2); Mean Corpuscular Volume 109.5 fl (81-99); Mean Platelet Volume 7.5 fl (7.4-10.4); Monocytes # 0.2 K/mm3 (0.1-1.0); Monocytes % 4.5 % (1.7-9.3); Platelet Count 271 K/mm3 (142-424); Red Blood Count 3.32 M/mm3 (4.20-5.40); Red Cell Distribution Width 14.4 % (11.5-17.5); White Blood Count 4.4 K/mm3 (4.8-10.8)
[2022-01-18 11:24] LABS: Alanine Aminotransferase 19 U/L (12-78); Albumin Level 3.9 g/dl (3.5-5.0); Albumin/Globulin Ratio 1.6 (1.1-1.8); Alkaline Phosphatase 46 U/L (38-126); Anion Gap 9.4 mEq/L (5-15); Aspartate Amino Transferase 24 U/L (14-36); Bilirubin,Total < 0.1 mg/dl (0.2-1.3); Blood Urea Nitrogen 30 mg/dl (7-17); Calcium 9.8 mg/dl (8.4-10.2); Carbon Dioxide 29 mmol/L (22.0-30.0); Chloride 103 mmol/L (98-107); Creatinine Clearance Estimated 60 mL/min (50-200); Estimated Glomerular Filt Rate 70 ml/min (>60); GFR (African American) 84 ML/MIN (>60); Globulin 2.5 g/dL (1.3-3.2); Glucose 138 mg/dl (74-100); Potassium 3.4 mmoL/L (3.5-5.1); Sodium 138 mmol/L (136-145); Total Protein,Serum 6.4 g/dl (6.3-8.2)
== END ==
PROVIDERS: Visit Provider Obstetrics & Gynecology
DX: C57.00 Malignant neoplasm of unspecified fallopian tube (principal); Z45.2 Encounter for adjustment and management of vascular access device
CPT/HCPCS: 36591; 80053; 85025; J1642

== ENCOUNTER 2022-02-22 11:30 | Outpatient (CLI) | payer MEDICARE, OTHER, SELFPAY ==
[2022-02-22 11:37] VITALS: BMI 30.9
== END 2022-02-22 11:57 | disposition home or self-care (01) ==
LOC: INF 11:31
PROVIDERS: PCP Physician Assistant; Visit Provider Obstetrics & Gynecology
DX: C57.00 Malignant neoplasm of unspecified fallopian tube (principal); Z45.2 Encounter for adjustment and management of vascular access device
CPT/HCPCS: 96523; J1642

== ENCOUNTER 2022-03-22 12:12 | Outpatient (CLI) | payer MEDICARE, OTHER, SELFPAY ==
[2022-03-22 12:17] VITALS: BMI 30.9
[2022-03-22 12:39] LABS: Basophils # 0.1 K/mm3 (0-0.2); Basophils % 1.2 % (0.1-2.0); Eosinophils # 0.2 K/mm3 (0.0-0.4); Eosinophils % 4.4 % (0.1-12.0); Hematocrit 39.5 % (37.0-47.0); Hemoglobin 12.2 g/dL (12.2-16.2); Lymphocytes # 1.3 K/mm3 (0.7-4.5); Lymphocytes % 28.2 % (10-50); Mean Corpuscular HGB Conc 30.8 g/dL (31.8-35.4); Mean Corpuscular Hemoglobin 32.3 pg (27.0-31.2); Mean Corpuscular Volume 104.6 fl (81-99); Mean Platelet Volume 8.6 fl (7.4-10.4); Monocytes # 0.2 K/mm3 (0.1-1.0); Monocytes % 4.1 % (1.7-9.3); Neutrophils # 2.9 K/mm3 (1.8-7.8); Neutrophils % 62.1 % (37.0-80.0); Platelet Count 307 K/mm3 (142-424); Red Blood Count 3.78 M/mm3 (4.20-5.40); Red Cell Distribution Width 14.2 % (11.5-17.5); White Blood Count 4.7 K/mm3 (4.8-10.8)
[2022-03-22 12:42] LABS: Chloride 104 mmol/L (98-107)
[2022-03-22 12:43] LABS: Potassium 3.5 mmoL/L (3.5-5.1); Sodium 141 mmol/L (136-145)
[2022-03-22 12:45] LABS: Alanine Aminotransferase 17 U/L (12-78); Alkaline Phosphatase 77 U/L (38-126); Aspartate Amino Transferase 26 U/L (14-36); Blood Urea Nitrogen 25 mg/dl (7-17); Creatinine Clearance Estimated 60 mL/min (50-200); Estimated Glomerular Filt Rate 70 ml/min (>60); GFR (African American) 84 ML/MIN (>60)
[2022-03-22 12:46] LABS: Albumin Level 3.9 g/dl (3.5-5.0); Albumin/Globulin Ratio 1.4 (1.1-1.8); Anion Gap 10.5 mEq/L (5-15); Calcium 9.2 mg/dl (8.4-10.2); Carbon Dioxide 30 mmol/L (22.0-30.0); Globulin 2.8 g/dL (1.3-3.2); Glucose 122 mg/dl (74-100); Total Protein,Serum 6.7 g/dl (6.3-8.2)
[2022-03-22 12:48] LABS: Bilirubin,Total 0.1 mg/dl (0.2-1.3)
== END 2022-03-22 12:36 | disposition home or self-care (01) ==
LOC: INF 12:14
PROVIDERS: PCP Physician Assistant; Visit Provider Obstetrics & Gynecology
DX: C57.00 Malignant neoplasm of unspecified fallopian tube (principal); Z45.2 Encounter for adjustment and management of vascular access device
CPT/HCPCS: 36591; 80053; 85025; J1642

== ENCOUNTER → 2022-04-21 11:40 | Outpatient (CLI) | payer MEDICARE, OTHER, SELFPAY ==
[2022-04-21 14:57] LABS: Total Protein 24 Hour,Urine 543 mg/24 hr (40-90); Total Volume,Urine 1550 mL (250-2400)
== END ==
PROVIDERS: PCP Physician Assistant; Visit Provider Obstetrics & Gynecology
DX: C53.9 Malignant neoplasm of cervix uteri, unspecified (principal)
CPT/HCPCS: 84155

== ENCOUNTER 2022-05-02 11:34 | Outpatient (CLI) | payer MEDICARE, OTHER, SELFPAY ==
[2022-05-02 11:40] VITALS: BMI 30.9
[2022-05-02 11:58] LABS: Basophils # 0.1 K/mm3 (0-0.2); Basophils % 1.6 % (0.1-2.0); Eosinophils # 0.2 K/mm3 (0.0-0.4); Eosinophils % 3.9 % (0.1-12.0); Hematocrit 39.2 % (37.0-47.0); Hemoglobin 12.8 g/dL (12.2-16.2); Lymphocytes # 1.3 K/mm3 (0.7-4.5); Lymphocytes % 26.4 % (10-50); Mean Corpuscular HGB Conc 32.5 g/dL (31.8-35.4); Mean Corpuscular Hemoglobin 32.4 pg (27.0-31.2); Mean Corpuscular Volume 99.6 fl (81-99); Mean Platelet Volume 7.7 fl (7.4-10.4); Monocytes # 0.2 K/mm3 (0.1-1.0); Monocytes % 4.5 % (1.7-9.3); Neutrophils % 63.5 % (37.0-80.0); Platelet Count 297 K/mm3 (142-424); Red Blood Count 3.94 M/mm3 (4.20-5.40); Red Cell Distribution Width 14.5 % (11.5-17.5); White Blood Count 4.8 K/mm3 (4.8-10.8)
[2022-05-02 11:59] VITALS: BP 148/70; PULSE 68; RESP 18; TEMP 36.4; O2SAT 97
[2022-05-02 12:05] LABS: Alanine Aminotransferase 20 U/L (12-78); Albumin Level 3.7 g/dl (3.5-5.0); Albumin/Globulin Ratio 1.3 (1.1-1.8); Alkaline Phosphatase 87 U/L (38-126); Anion Gap 12.6 mEq/L (5-15); Aspartate Amino Transferase 27 U/L (14-36); Bilirubin,Total 0.1 mg/dl (0.2-1.3); Blood Urea Nitrogen 21 mg/dl (7-17); Calcium 9.3 mg/dl (8.4-10.2); Carbon Dioxide 27 mmol/L (22.0-30.0); Chloride 101 mmol/L (98-107); Creatinine Clearance Estimated 60 mL/min (50-200); Estimated Glomerular Filt Rate 81 ml/min (>60); GFR (African American) 98 ML/MIN (>60); Globulin 2.8 g/dL (1.3-3.2); Glucose 104 mg/dl (74-100); Potassium 3.6 mmoL/L (3.5-5.1); Sodium 137 mmol/L (136-145); Total Protein,Serum 6.5 g/dl (6.3-8.2)
== END 2022-05-02 12:00 | disposition home or self-care (01) ==
PROVIDERS: Family Medicine; PCP Physician Assistant; Visit Provider Obstetrics & Gynecology
DX: C57.00 Malignant neoplasm of unspecified fallopian tube (principal); Z45.2 Encounter for adjustment and management of vascular access device
CPT/HCPCS: 36591; 80053; 85025; J1642

== ENCOUNTER → 2022-05-09 11:27 | Outpatient (CLI) | payer MEDICARE, OTHER, SELFPAY ==
[2022-05-09 11:36] VITALS: BMI 31.1
[2022-05-09 11:50] VITALS: BP 133/89; PULSE 94; RESP 16; TEMP 36.6; O2SAT 97
[2022-05-09 12:07] LABS: Basophils # 0.1 K/mm3 (0-0.2); Basophils % 1.4 % (0.1-2.0); Eosinophils # 0.1 K/mm3 (0.0-0.4); Eosinophils % 2.9 % (0.1-12.0); Hematocrit 39.4 % (37.0-47.0); Hemoglobin 12.9 g/dL (12.2-16.2); Lymphocytes # 0.9 K/mm3 (0.7-4.5); Lymphocytes % 19.9 % (10-50); Mean Corpuscular HGB Conc 32.7 g/dL (31.8-35.4); Mean Corpuscular Hemoglobin 32.6 pg (27.0-31.2); Mean Corpuscular Volume 99.8 fl (81-99); Mean Platelet Volume 7.8 fl (7.4-10.4); Monocytes # 0.2 K/mm3 (0.1-1.0); Monocytes % 4.1 % (1.7-9.3); Neutrophils # 3.1 K/mm3 (1.8-7.8); Neutrophils % 71.7 % (37.0-80.0); Platelet Count 301 K/mm3 (142-424); Red Blood Count 3.94 M/mm3 (4.20-5.40); Red Cell Distribution Width 15.1 % (11.5-17.5); White Blood Count 4.3 K/mm3 (4.8-10.8)
[2022-05-09 12:14] LABS: Chloride 103 mmol/L (98-107); Potassium 3.3 mmoL/L (3.5-5.1); Sodium 139 mmol/L (136-145)
[2022-05-09 12:16] LABS: Blood Urea Nitrogen 20 mg/dl (7-17)
[2022-05-09 12:17] LABS: Alanine Aminotransferase 20 U/L (12-78); Albumin/Globulin Ratio 1.5 (1.1-1.8); Alkaline Phosphatase 75 U/L (38-126); Anion Gap 12.3 mEq/L (5-15); Aspartate Amino Transferase 28 U/L (14-36); Bilirubin,Total 0.3 mg/dl (0.2-1.3); Calcium 9.3 mg/dl (8.4-10.2); Carbon Dioxide 27 mmol/L (22.0-30.0); Creatinine Clearance Estimated 60 mL/min (50-200); Estimated Glomerular Filt Rate 61 ml/min (>60); GFR (African American) 74 ML/MIN (>60); Globulin 2.6 g/dL (1.3-3.2); Glucose 151 mg/dl (74-100); Total Protein,Serum 6.6 g/dl (6.3-8.2)
== END ==
PROVIDERS: Obstetrics & Gynecology; Visit Provider Obstetrics & Gynecology
DX: C56.1 Malignant neoplasm of right ovary (principal)
CPT/HCPCS: 80053; 85025; G0463; J1642

== ENCOUNTER 2022-05-09 17:58 | Emergency (ER) | payer MEDICARE, OTHER, SELFPAY ==
[2022-05-09 18:00] VITALS: BP 131/71; PULSE 108; RESP 18; TEMP 36.9; O2SAT 98; BMI 31.8
--- NOTE | 2022-05-09 18:11 | CT_ITS ---
PROCEDURE INFORMATION: Exam: CT Abdomen And Pelvis With Contrast Exam date and time: 05/09/2022 7:23 PM Age: 76 years old Clinical indication: Vomiting; Abdominal pain; Acute; Additional info: Abdominal pain, vomiting TECHNIQUE: Imaging protocol: Computed tomography of the abdomen and pelvis with contrast. Radiation optimization: All CT scans at this facility use at least one of these dose optimization techniques: automated exposure control; mA and/or kV adjustment per patient size (includes targeted exams where dose is matched to clinical indication); or iterative reconstruction. Contrast material: ISOVUE; Contrast volume: 75 ml; Contrast route: IV; COMPARISON: CT ABDOMEN PELVIS W CON 09/06/2019 2:44 PM FINDINGS: Lungs: Streaky opacities at the lung bases. No consolidation. Heart: Coronary artery calcifications. Liver: Normal. No mass. Gallbladder and bile ducts: Status post cholecystectomy. Pancreas: Normal enhancement. No ductal dilation. Spleen: No splenomegaly. Adrenal glands: 18 mm right adrenal nodule which is intermediate density. 14 mm fat containing left adrenal nodule. Kidneys and ureters: 11 mm fat containing right upper pole renal nodule. Suspected 9 mm hyperdense right upper pole renal nodule. Stomach and bowel: Suspected wall thickening of the distal transverse, descending, and rectosigmoid colon which are decompressed and not well evaluated. 9 cm x 3.9 cm fat and bowel containing right paramedian anterior abdominal wall hernia. Appendix: No evidence of appendicitis. Intraperitoneal space: No free air. No significant fluid collection. Vasculature: Calcified atherosclerosis. No aneurysm. Lymph nodes: No enlarged lymph nodes. Urinary bladder: Urinary bladder is under distended. Urinary bladder wall is thickened measuring 8 mm. Reproductive: Status post hysterectomy with 3.7 x 3.1 cm complex appearing gas and fluid at the vaginal cuff. Bones/joints: No acute fracture. Soft tissues: No soft tissue swelling. IMPRESSION: 1. Suspected wall thickening of the distal transverse, descending, and rectosigmoid colon which may in part be secondary to underdistention however does raise concern for potential colitis. 2. 9 cm x 3.9 cm fat and bowel containing right paramedian anterior abdominal wall hernia which has increased in size from prior exam. 3. 18 mm right adrenal nodule which is indeterminate and may be benign or malignant. Consider follow-up adrenal protocol CT or MRI 4. 14 mm fat containing left adrenal nodule compatible with a myelolipoma. 5. 11 mm fat containing right upper pole renal nodule compatible with an angiomyolipoma with potential hyperdense nodule adjacent which can be further evaluated as above. 6. Status post hysterectomy with 3.7 x 3.1 cm complex appearing gas and fluid at the vaginal cuff which which is indeterminate. OBGYN consultation recommended for further evaluation. 7. Bladder wall thickening measuring 8 mm which is somewhat prominent even allowing for underdistention. Correlation with UA recommended. Mucosal mass cannot be radiographically excluded.
[2022-05-09 18:21] LABS: Microscopic, Urine URINE MICROSCOPIC (MICROSCOPIC)
[2022-05-09 18:23] LABS: Appearance,Urine CLEAR (Clear); Blood, Urine 2+ (Negative); Color,Urine YELLOW (Yellow); Glucose,Urine (UA) Negative (Negative); Ketones,Urine 1+ (Negative); Leukocyte Esterase,Urine 2+ (Negative); Nitrate,Urine Negative (Negative); PH,Urine 5.5 (5.0-8.5); Protein,Urine TRACE (Negative); Specific Gravity, Urine >= 1.030 (1.005-1.030); Urobilinogen,Urine 0.2 EU/dl (0.2)
[2022-05-09 18:26] LABS: Bilirubin,Urine 1+ (Negative)
[2022-05-09 18:27] VITALS: BP 134/83; PULSE 73; RESP 18
[2022-05-09 18:27] LABS: Amorphous Sediment,Urine Trace /lpf; Bacteria,Urine 1+ /lpf; WBC,Urine 20-50 #/hpf (0-3)
--- NOTE | 2022-05-09 18:35 | HMH.EDGENADL ---
Discharge Plan Disposition Patient Disposition: Home, Self-Care Condition: Fair Prescriptions Prescriptions: New cephalexin [cephalexin] 500 mg capsule 500 mg PO TID Qty: 30 0RF clindamycin HCl 300 mg capsule 300 mg PO TID Qty: 30 0RF No Action anastrozole 1 MG tablet 1 mg PO DAILY potassium chloride [K-Tab] 10 MEQ tablet extended release 10 meq PO DAILY simvastatin 40 MG tablet 40 mg PO DAILY levothyroxine [Synthroid] 25 MCG tablet 50 mcg PO DAILY aspirin 81 MG tablet,chewable 81 mg PO DAILY lisinopril 5 MG tablet 5 mg PO DAILY furosemide 20 MG tablet 20 mg PO DAILY cholecalciferol (vitamin D3) 50,000 UNIT capsule 50,000 unit PO DAILY famotidine 20 MG tablet 20 mg PO BID ondansetron HCl 8 MG tablet 8 mg PO BID Rx Instructions: TAKE PRIOR TO CHEMO PILL BID prochlorperazine maleate 10 MG tablet 10 mg PO DAILY PRN (Reason: Nausea) dexamethasone [Decadron] 4 MG tablet 4 mg PO DAILY methylprednisolone 4 MG tablet 4 mg PO DIRECTED Qty: 21 0RF Rx Instructions: Take as directed on package instructions Referrals Follow up/Referrals: Provider,Referral, MD [Primary Care Provider] - See instructions Activity Restrictions/Add. Instructions Additional Instructions/Restrictions: You have been evaluated for nausea, vomiting, diarrhea in the setting of chemotherapy. Please continue taking nausea medicine as needed. Follow-up with your primary care doctor and your primary oncologist. Return to the emergency department at once for any new or worsening symptoms, abdominal pain, fever, other concerns Clinical Impressions Clinical Impression: Pelvic mass in female, Acute UTI (urinary tract infection) Instructions Patient Instructions: DI for Nausea -- Adult Discharge ED Provider: Cynthia Dial General Adult HPI <Cynthia Dial DO - Last Filed: 05/09/22 20:11> General Chief complaint: Nausea/Vomiting/Diarrhea Stated complaint: vomitting, diarrhea, weakness Time Seen by Provider: 05/09/22 18:11 Mode of Arrival: Wheelchair Source of Information: Patient Limitations: No Limitations Description of Symptoms (Recalled from ER Triage Doc. by RN): c/o abdominal cramping, v/n/d since about 2 hours ago History of Present Illness HPI narrative: 76-year-old female presenting to the emergency department with nausea, vomiting, diarrhea. Symptoms started today. This morning when she woke up felt generally unwell. She has had multiple loose stools. Now with nausea and vomiting. Has occasional cramping abdominal pain, near her hernia on the right side. No fevers or chills. No cough or shortness of breath. She is a cancer patient, undergoing oral chemotherapy. Her primary oncologist is Dr. Brice[facility] at [facility]. She started a new chemo regimen 2 weeks ago, received an infusion yesterday. Has been able to eat and drink little today. Related Data Home Medications Medication Instructions Recorded Confirmed anastrozole 1 mg tablet 1 mg PO DAILY HORMONE 01/30/18 01/22/20 aspirin 81 mg chewable tablet 81 mg PO DAILY BLOOD THINNNER 01/30/18 01/22/20 cholecalciferol (vitamin D3) 1,250 50,000 unit PO DAILY BONES 01/30/18 01/22/20 mcg (50,000 unit) capsule furosemide 20 mg tablet 20 mg PO DAILY Hypertension 01/30/18 01/22/20 levothyroxine 25 mcg tablet 50 mcg PO DAILY THYROID 01/30/18 01/22/20 (Synthroid) lisinopril 5 mg tablet 5 mg PO DAILY Hypertension 01/30/18 01/22/20 potassium chloride 10 mEq 10 meq PO DAILY HEART 01/30/18 01/22/20 tablet,extended release (K-Tab) simvastatin 40 mg tablet 40 mg PO DAILY High cholesterol 01/30/18 01/22/20 dexamethasone 4 mg tablet 4 mg PO DAILY unknown 07/30/18 01/22/20 (Decadron) prochlorperazine maleate 10 mg 10 mg PO DAILY PRN Nausea 07/30/18 01/22/20 tablet famotidine 20 mg tablet 20 mg PO BID Reflux/Acid reflux 09/09/19 01/22/20 ondansetron HCl 8 mg tablet 8 mg PO
[2022-05-09 18:45] LABS: Basophils # 0.1 K/mm3 (0-0.2); Basophils % 0.7 % (0.1-2.0); Eosinophils # 0.1 K/mm3 (0.0-0.4); Eosinophils % 1.1 % (0.1-12.0); Hematocrit 39.7 % (37.0-47.0); Hemoglobin 12.9 g/dL (12.2-16.2); Lymphocytes % 10.9 % (10-50); Mean Corpuscular HGB Conc 32.6 g/dL (31.8-35.4); Mean Corpuscular Hemoglobin 32.8 pg (27.0-31.2); Mean Corpuscular Volume 100.6 fl (81-99); Mean Platelet Volume 8.2 fl (7.4-10.4); Monocytes # 0.4 K/mm3 (0.1-1.0); Monocytes % 3.9 % (1.7-9.3); Neutrophils # 7.4 K/mm3 (1.8-7.8); Neutrophils % 83.4 % (37.0-80.0); Platelet Count 339 K/mm3 (142-424); Red Blood Count 3.94 M/mm3 (4.20-5.40); Red Cell Distribution Width 15.2 % (11.5-17.5); White Blood Count 8.9 K/mm3 (4.8-10.8)
[2022-05-09 18:53] LABS: Chloride 102 mmol/L (98-107)
[2022-05-09 18:54] LABS: Potassium 3.6 mmoL/L (3.5-5.1); Sodium 140 mmol/L (136-145)
[2022-05-09 18:56] LABS: Alkaline Phosphatase 87 U/L (38-126); Bilirubin,Total 0.2 mg/dl (0.2-1.3); Lipase 96 U/L (23-300)
[2022-05-09 18:57] LABS: Albumin Level 4.3 g/dl (3.5-5.0); Albumin/Globulin Ratio 1.5 (1.1-1.8); Globulin 2.8 g/dL (1.3-3.2); Total Protein,Serum 7.1 g/dl (6.3-8.2)
[2022-05-09 18:58] LABS: Alanine Aminotransferase 22 U/L (12-78); Anion Gap 15.6 mEq/L (5-15); Aspartate Amino Transferase 32 U/L (14-36); Blood Urea Nitrogen 31 mg/dl (7-17); Calcium 9.4 mg/dl (8.4-10.2); Carbon Dioxide 26 mmol/L (22.0-30.0); Creatinine Clearance Estimated 51 mL/min (50-200); Estimated Glomerular Filt Rate 44 ml/min (>60); GFR (African American) 53 ML/MIN (>60); Glucose 132 mg/dl (74-100)
[2022-05-09 19:35] LABS: Coronavirus 19, PCR Not Detected (NotDetected); Influenza A, PCR Not Detected (NotDetected); Influenza B, PCR Not Detected (NotDetected)
[2022-05-09 20:00] VITALS: BP 124/64; PULSE 94; O2SAT 95
[2022-05-09 21:23] VITALS: BP 129/62; PULSE 96; RESP 16; TEMP 36.7; O2SAT 96
== END 2022-05-09 21:26 | disposition home or self-care (01) ==
PROVIDERS: Emergency Provider Emergency Medicine
DX: C56.9 Malignant neoplasm of unspecified ovary (principal); N39.0 Urinary tract infection, site not specified; R53.1 Weakness; R11.2 Nausea with vomiting, unspecified; R19.7 Diarrhea, unspecified; D64.9 Anemia, unspecified; R53.81 Other malaise; Z20.822 Contact with and (suspected) exposure to COVID-19; I10 Essential (primary) hypertension; I25.10 Atherosclerotic heart disease of native coronary artery without angina pectoris; K21.9 Gastro-esophageal reflux disease without esophagitis; E78.5 Hyperlipidemia, unspecified; E07.9 Disorder of thyroid, unspecified; K57.92 Diverticulitis of intestine, part unspecified, without perforation or abscess without bleeding; K82.9 Disease of gallbladder, unspecified; J44.9 Chronic obstructive pulmonary disease, unspecified; Z79.52 Long term (current) use of systemic steroids; Z79.82 Long term (current) use of aspirin; Z79.899 Other long term (current) drug therapy; Z88.2 Allergy status to sulfonamides; Z88.5 Allergy status to narcotic agent; Z85.3 Personal history of malignant neoplasm of breast; Z92.21 Personal history of antineoplastic chemotherapy
CPT/HCPCS: 74177; 80053; 81001; 83690; 85025; 87086; 96361; 96374; 96375; 99285; C9803; G0463; J1642; J2405; Q9967; U0003; U0005

== ENCOUNTER → 2022-05-23 11:31 | Outpatient (CLI) | payer MEDICARE, OTHER, SELFPAY ==
[2022-05-23 11:39] VITALS: BMI 30.9
[2022-05-23 12:01] LABS: Eosinophils # 0.2 K/mm3 (0.0-0.4); Eosinophils % 4.2 % (0.1-12.0); Hematocrit 41.8 % (37.0-47.0); Hemoglobin 12.9 g/dL (12.2-16.2); Lymphocytes # 1.1 K/mm3 (0.7-4.5); Lymphocytes % 24.1 % (10-50); Mean Corpuscular HGB Conc 30.9 g/dL (31.8-35.4); Mean Corpuscular Hemoglobin 31.5 pg (27.0-31.2); Mean Corpuscular Volume 101.9 fl (81-99); Mean Platelet Volume 8.2 fl (7.4-10.4); Monocytes # 0.2 K/mm3 (0.1-1.0); Monocytes % 4.2 % (1.7-9.3); Neutrophils # 2.9 K/mm3 (1.8-7.8); Neutrophils % 66.5 % (37.0-80.0); Platelet Count 289 K/mm3 (142-424); Red Cell Distribution Width 15.6 % (11.5-17.5); White Blood Count 4.4 K/mm3 (4.8-10.8)
[2022-05-23 12:06] LABS: Chloride 101 mmol/L (98-107); Potassium 3.5 mmoL/L (3.5-5.1); Sodium 140 mmol/L (136-145)
[2022-05-23 12:09] LABS: Alanine Aminotransferase 19 U/L (12-78); Albumin/Globulin Ratio 1.4 (1.1-1.8); Alkaline Phosphatase 79 U/L (38-126); Anion Gap 14.5 mEq/L (5-15); Aspartate Amino Transferase 28 U/L (14-36); Bilirubin,Total 0.4 mg/dl (0.2-1.3); Blood Urea Nitrogen 24 mg/dl (7-17); Carbon Dioxide 28 mmol/L (22.0-30.0); Creatinine Clearance Estimated 60 mL/min (50-200); Estimated Glomerular Filt Rate 70 ml/min (>60); GFR (African American) 84 ML/MIN (>60); Globulin 2.8 g/dL (1.3-3.2); Total Protein,Serum 6.8 g/dl (6.3-8.2)
[2022-05-23 12:10] LABS: Calcium 9.3 mg/dl (8.4-10.2); Glucose 125 mg/dl (74-100)
[2022-05-23 12:40] LABS: Thyroid Stimulating Hormone 1.77 uIU/mL (0.465-4.68)
[2022-05-23 13:16] LABS: 25-OH Vitamin D, Total 45.4 ng/mL (30-100)
[2022-05-23 13:36] LABS: Free T4 (Free Thyroxine) 1.12 ng/dl (0.78-2.19)
== END ==
PROVIDERS: PCP Family Medicine; Visit Provider Obstetrics & Gynecology
DX: Z45.2 Encounter for adjustment and management of vascular access device (principal); E55.9 Vitamin D deficiency, unspecified; C57.00 Malignant neoplasm of unspecified fallopian tube
CPT/HCPCS: 36591; 80053; 82306; 84439; 84443; 85025; J1642

== ENCOUNTER 2022-05-30 11:40 | Outpatient (CLI) | payer MEDICARE, OTHER, SELFPAY ==
[2022-05-30 11:47] VITALS: BMI 30.9
[2022-05-30 12:08] LABS: Basophils # 0.1 K/mm3 (0-0.2); Eosinophils # 0.2 K/mm3 (0.0-0.4); Eosinophils % 4.8 % (0.1-12.0); Hematocrit 42.7 % (37.0-47.0); Hemoglobin 13.7 g/dL (12.2-16.2); Lymphocytes # 0.8 K/mm3 (0.7-4.5); Lymphocytes % 18.3 % (10-50); Mean Corpuscular Hemoglobin 32.1 pg (27.0-31.2); Mean Corpuscular Volume 100.2 fl (81-99); Monocytes # 0.2 K/mm3 (0.1-1.0); Monocytes % 3.9 % (1.7-9.3); Neutrophils # 3.1 K/mm3 (1.8-7.8); Neutrophils % 71.1 % (37.0-80.0); Platelet Count 288 K/mm3 (142-424); Red Blood Count 4.26 M/mm3 (4.20-5.40); Red Cell Distribution Width 15.5 % (11.5-17.5); White Blood Count 4.4 K/mm3 (4.8-10.8)
[2022-05-30 12:09] LABS: Chloride 99 mmol/L (98-107); Potassium 3.7 mmoL/L (3.5-5.1); Sodium 139 mmol/L (136-145)
[2022-05-30 12:11] LABS: Alanine Aminotransferase 22 U/L (12-78); Alkaline Phosphatase 91 U/L (38-126); Aspartate Amino Transferase 28 U/L (14-36); Bilirubin,Total 0.5 mg/dl (0.2-1.3); Blood Urea Nitrogen 21 mg/dl (7-17); Creatinine Clearance Estimated 60 mL/min (50-200); Estimated Glomerular Filt Rate 54 ml/min (>60); GFR (African American) 65 ML/MIN (>60)
[2022-05-30 12:12] LABS: Albumin Level 4.2 g/dl (3.5-5.0); Albumin/Globulin Ratio 1.6 (1.1-1.8); Anion Gap 15.7 mEq/L (5-15); Calcium 10.3 mg/dl (8.4-10.2); Carbon Dioxide 28 mmol/L (22.0-30.0); Globulin 2.7 g/dL (1.3-3.2); Glucose 135 mg/dl (74-100); Total Protein,Serum 6.9 g/dl (6.3-8.2)
== END 2022-05-30 12:05 | disposition home or self-care (01) ==
LOC: INF 11:42
PROVIDERS: PCP Family Medicine; Visit Provider Obstetrics & Gynecology
DX: C57.00 Malignant neoplasm of unspecified fallopian tube (principal); Z45.2 Encounter for adjustment and management of vascular access device
CPT/HCPCS: 36591; 80053; 85025; J1642

== ENCOUNTER 2022-06-13 11:36 | Outpatient (CLI) | payer MEDICARE, OTHER, SELFPAY ==
[2022-06-13 11:39] VITALS: BMI 30.9
[2022-06-13 12:04] LABS: Basophils # 0.1 K/mm3 (0-0.2); Basophils % 1.2 % (0.1-2.0); Eosinophils # 0.2 K/mm3 (0.0-0.4); Eosinophils % 4.9 % (0.1-12.0); Hematocrit 42.5 % (37.0-47.0); Hemoglobin 13.6 g/dL (12.2-16.2); Lymphocytes # 0.7 K/mm3 (0.7-4.5); Lymphocytes % 16.5 % (10-50); Mean Corpuscular Hemoglobin 32.5 pg (27.0-31.2); Mean Corpuscular Volume 101.7 fl (81-99); Mean Platelet Volume 7.8 fl (7.4-10.4); Monocytes # 0.2 K/mm3 (0.1-1.0); Monocytes % 3.6 % (1.7-9.3); Neutrophils # 3.3 K/mm3 (1.8-7.8); Neutrophils % 73.8 % (37.0-80.0); Platelet Count 273 K/mm3 (142-424); Red Blood Count 4.18 M/mm3 (4.20-5.40); Red Cell Distribution Width 15.7 % (11.5-17.5); White Blood Count 4.5 K/mm3 (4.8-10.8)
[2022-06-13 12:24] LABS: Alanine Aminotransferase 22 U/L (12-78); Albumin Level 4.2 g/dl (3.5-5.0); Albumin/Globulin Ratio 1.4 (1.1-1.8); Alkaline Phosphatase 88 U/L (38-126); Anion Gap 15.4 mEq/L (5-15); Aspartate Amino Transferase 29 U/L (14-36); Bilirubin,Total 0.5 mg/dl (0.2-1.3); Blood Urea Nitrogen 27 mg/dl (7-17); Calcium 10.2 mg/dl (8.4-10.2); Carbon Dioxide 28 mmol/L (22.0-30.0); Chloride 102 mmol/L (98-107); Creatinine Clearance Estimated 55 mL/min (50-200); Estimated Glomerular Filt Rate 48 ml/min (>60); GFR (African American) 58 ML/MIN (>60); Glucose 143 mg/dl (74-100); Potassium 3.4 mmoL/L (3.5-5.1); Sodium 142 mmol/L (136-145); Total Protein,Serum 7.2 g/dl (6.3-8.2)
== END 2022-06-13 11:50 | disposition home or self-care (01) ==
LOC: INF 11:37
PROVIDERS: PCP Family Medicine; Visit Provider Obstetrics & Gynecology
DX: C57.00 Malignant neoplasm of unspecified fallopian tube (principal); Z45.2 Encounter for adjustment and management of vascular access device
CPT/HCPCS: 36591; 80053; 85025; J1642

== ENCOUNTER 2022-06-20 11:22 | Outpatient (CLI) | payer MEDICARE, OTHER, SELFPAY ==
[2022-06-20 11:28] VITALS: BMI 28.8
[2022-06-20 12:00] LABS: Basophils # 0.1 K/mm3 (0-0.2); Basophils % 1.3 % (0.1-2.0); Eosinophils # 0.3 K/mm3 (0.0-0.4); Eosinophils % 5.2 % (0.1-12.0); Hematocrit 41.9 % (37.0-47.0); Hemoglobin 13.4 g/dL (12.2-16.2); Lymphocytes # 0.9 K/mm3 (0.7-4.5); Lymphocytes % 18.4 % (10-50); Mean Corpuscular HGB Conc 32.1 g/dL (31.8-35.4); Mean Corpuscular Hemoglobin 31.9 pg (27.0-31.2); Mean Corpuscular Volume 99.5 fl (81-99); Monocytes # 0.2 K/mm3 (0.1-1.0); Neutrophils # 3.4 K/mm3 (1.8-7.8); Neutrophils % 71.1 % (37.0-80.0); Platelet Count 237 K/mm3 (142-424); Red Blood Count 4.21 M/mm3 (4.20-5.40); Red Cell Distribution Width 15.8 % (11.5-17.5); White Blood Count 4.7 K/mm3 (4.8-10.8)
[2022-06-20 12:02] LABS: Chloride 101 mmol/L (98-107); Potassium 3.9 mmoL/L (3.5-5.1); Sodium 139 mmol/L (136-145)
[2022-06-20 12:04] LABS: Alanine Aminotransferase 19 U/L (12-78); Aspartate Amino Transferase 26 U/L (14-36); Blood Urea Nitrogen 25 mg/dl (7-17); Creatinine Clearance Estimated 59 mL/min (50-200); Estimated Glomerular Filt Rate 61 ml/min (>60); GFR (African American) 74 ML/MIN (>60)
[2022-06-20 12:05] LABS: Albumin Level 4.2 g/dl (3.5-5.0); Albumin/Globulin Ratio 1.5 (1.1-1.8); Alkaline Phosphatase 77 U/L (38-126); Anion Gap 12.9 mEq/L (5-15); Bilirubin,Total 0.4 mg/dl (0.2-1.3); Calcium 10.1 mg/dl (8.4-10.2); Carbon Dioxide 29 mmol/L (22.0-30.0); Globulin 2.8 g/dL (1.3-3.2); Glucose 91 mg/dl (74-100)
== END 2022-06-20 11:54 | disposition home or self-care (01) ==
LOC: INF 11:23
PROVIDERS: PCP Family Medicine; Visit Provider Obstetrics & Gynecology
DX: Z45.2 Encounter for adjustment and management of vascular access device (principal); C57.00 Malignant neoplasm of unspecified fallopian tube
CPT/HCPCS: 36591; 80053; 85025; J1642

== ENCOUNTER 2022-06-22 16:24 | Observation (INO) | payer MEDICARE, OTHER, SELFPAY ==
[2022-06-22] VITALS (10 sets, daily range): BP systolic 113–155; BP diastolic 54–82; PULSE 64–100; RESP 16–19; TEMP 36.5–36.9; O2SAT 93–99; BMI 31.8; BMI 31.7
--- NOTE | 2022-06-22 16:23 | ECG_ITS ---
APPROVED REPORT Exam: Resting ECG HR:97 bpm ECG Measurements Heart Rate 97 AXES AZ 178 P 62 QRSd 78 QRS 20 QT 339 T 55 QTc 393 Conclusion SINUS RHYTHM LOW QRS VOLTAGE IN PRECORDIAL LEADS [QRS DEFLECTION < 1.0 mV IN CHEST LEADS] BORDERLINE ECG UNCONFIRMED REPORT Electronically signed by : Ludin Hughes MD 06/23/2022 20:10:03
--- NOTE | 2022-06-22 16:29 | XR_ITS ---
PROCEDURE INFORMATION: Exam: XR Chest Exam date and time: 06/22/2022 4:33 PM Age: 76 years old Clinical indication: Sternal or substernal pain; Additional info: Chest pain TECHNIQUE: Imaging protocol: Radiologic exam of the chest. Views: 2 views. COMPARISON: CR CXR2 XR chest AP 05/28/2018 3:06 PM FINDINGS: Tubes, catheters and devices: Right-sided Port-A-Cath in place with the tip in the superior vena cava. Lungs: Atelectatic changes noted within both lung bases. Pleural spaces: There is no evidence of pneumothorax. There are no pleural effusions present. Heart/Mediastinum: Unremarkable. No cardiomegaly. Vasculature: The vasculature demonstrates diffuse mild atherosclerotic calcification. Bones/joints: The thoracic spine demonstrates mild degenerative changes at multiple levels. IMPRESSION: 1. Atelectatic changes noted within both lung bases. 2. There is no evidence of pneumothorax.
--- NOTE | 2022-06-22 16:45 | PC.NURSE ---
port accessed and blood drawn and sent to the lab
[2022-06-22 16:57] LABS: Basophils # 0.1 K/mm3 (0-0.2); Eosinophils # 0.2 K/mm3 (0.0-0.4); Eosinophils % 3.2 % (0.1-12.0); Hematocrit 41.6 % (37.0-47.0); Hemoglobin 13.4 g/dL (12.2-16.2); Lymphocytes # 0.9 K/mm3 (0.7-4.5); Lymphocytes % 14.2 % (10-50); Mean Corpuscular HGB Conc 32.2 g/dL (31.8-35.4); Mean Corpuscular Hemoglobin 32.1 pg (27.0-31.2); Mean Corpuscular Volume 99.7 fl (81-99); Mean Platelet Volume 7.6 fl (7.4-10.4); Monocytes # 0.3 K/mm3 (0.1-1.0); Monocytes % 4.1 % (1.7-9.3); Neutrophils # 4.7 K/mm3 (1.8-7.8); Neutrophils % 77.6 % (37.0-80.0); Platelet Count 244 K/mm3 (142-424); Red Blood Count 4.17 M/mm3 (4.20-5.40); Red Cell Distribution Width 15.8 % (11.5-17.5); White Blood Count 6.1 K/mm3 (4.8-10.8)
--- NOTE | 2022-06-22 16:57 | HMH.EDCP ---
Discharge Plan Disposition Patient Disposition: Home, Self-Care Condition: Fair Prescriptions Prescriptions: No Action anastrozole 1 MG tablet 1 mg PO DAILY potassium chloride [K-Tab] 10 MEQ tablet extended release 10 meq PO DAILY simvastatin 40 MG tablet 40 mg PO DAILY levothyroxine [Synthroid] 25 MCG tablet 50 mcg PO DAILY aspirin 81 MG tablet,chewable 81 mg PO DAILY lisinopril 5 MG tablet 5 mg PO DAILY furosemide 20 MG tablet 20 mg PO DAILY cholecalciferol (vitamin D3) 50,000 UNIT capsule 50,000 unit PO DAILY famotidine 20 MG tablet 20 mg PO BID ondansetron HCl 8 MG tablet 8 mg PO BID Rx Instructions: TAKE PRIOR TO CHEMO PILL BID prochlorperazine maleate 10 MG tablet 10 mg PO DAILY PRN (Reason: Nausea) dexamethasone [Decadron] 4 MG tablet 4 mg PO DAILY methylprednisolone 4 MG tablet 4 mg PO DIRECTED Qty: 21 0RF Rx Instructions: Take as directed on package instructions cephalexin [cephalexin] 500 mg capsule 500 mg PO TID Qty: 30 0RF clindamycin HCl 300 mg capsule 300 mg PO TID Qty: 30 0RF Referrals Follow up/Referrals: Provider,Referral, MD [Primary Care Provider] - See instructions Clinical Impressions Clinical Impression: Acute chest pain Discharge ED Provider: Parker Nugent Chest Pain HPI General Chief Complaint: Chest Pain Stated Complaint: chest pain Time Seen by Provider: 06/22/22 16:49 Mode of Arrival: Ambulatory Source of Information: Patient Limitations: No Limitations Description of Symptoms (Recalled from ER Triage Doc. by RN): c/o chest pain with nausea and sweating. 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 She describes the discomfort as moderate and without exacerbating or alleviating factors. Symptoms have since subsided considerably although she still having some mild residual tightness. She notes associated nausea and states that she felt hot in the axilla. She denies shortness of air or. Related Data Home Medications Medication Instructions Recorded Confirmed anastrozole 1 mg tablet 1 mg PO DAILY HORMONE 01/30/18 01/22/20 aspirin 81 mg chewable tablet 81 mg PO DAILY BLOOD THINNNER 01/30/18 01/22/20 cholecalciferol (vitamin D3) 1,250 50,000 unit PO DAILY BONES 01/30/18 01/22/20 mcg (50,000 unit) capsule furosemide 20 mg tablet 20 mg PO DAILY Hypertension 01/30/18 01/22/20 levothyroxine 25 mcg tablet 50 mcg PO DAILY THYROID 01/30/18 01/22/20 (Synthroid) lisinopril 5 mg tablet 5 mg PO DAILY Hypertension 01/30/18 01/22/20 potassium chloride 10 mEq 10 meq PO DAILY HEART 01/30/18 01/22/20 tablet,extended release (K-Tab) simvastatin 40 mg tablet 40 mg PO DAILY High cholesterol 01/30/18 01/22/20 dexamethasone 4 mg tablet 4 mg PO DAILY unknown 07/30/18 01/22/20 (Decadron) prochlorperazine maleate 10 mg 10 mg PO DAILY PRN Nausea 07/30/18 01/22/20 tablet famotidine 20 mg tablet 20 mg PO BID Reflux/Acid reflux 09/09/19 01/22/20 ondansetron HCl 8 mg tablet 8 mg PO BID Nausea & vomiting 10/23/19 01/22/20 Previous Rx's Medication Instructions Recorded methylprednisolone 4 mg tablet 4 mg PO DIRECTED #21 tabs 09/19/20 cephalexin 500 mg capsule 500 mg PO TID #30 caps 05/09/22 clindamycin HCl 300 mg capsule 300 mg PO TID #30 caps 05/09/22 Allergies Allergy/AdvReac Type Severity Reaction Status Date / Time Sulfa (Sulfonamide Allergy Mild Verified 06/08/21 17:46 Antibiotics) morphine Allergy Verified 06/08/21 17:46 [facility] Medical History Anemia Breast cancer CAD (coronary artery disease) Chemotherapy management, encounter for COPD (chronic obstructive pulmonary disease) [place]
[2022-06-22 17:15] LABS: Chloride 103 mmol/L (98-107); Sodium 139 mmol/L (136-145)
[2022-06-22 17:16] LABS: Potassium 3.7 mmoL/L (3.5-5.1)
[2022-06-22 17:18] LABS: Blood Urea Nitrogen 24 mg/dl (7-17); Creatinine Clearance Estimated 62 mL/min (50-200); Estimated Glomerular Filt Rate 70 ml/min (>60); GFR (African American) 84 ML/MIN (>60)
[2022-06-22 17:19] LABS: Anion Gap 10.7 mEq/L (5-15); Carbon Dioxide 29 mmol/L (22.0-30.0); Glucose 84 mg/dl (74-100)
[2022-06-22 17:37] LABS: Troponin I < 0.01 ng/ml (0.00-0.034)
[2022-06-22 18:52] LABS: D-Dimer 0.69 ug/mL (0.0-0.5)
--- NOTE | 2022-06-22 19:28 | PC.NURSE ---
Rechecked pt condition. No needs or complaints voiced at this time. Second trop drawn via port per Rivka Sanchez RN
--- NOTE | 2022-06-22 19:37 | PC.NURSE ---
Dr. He paged
--- NOTE | 2022-06-22 19:39 | PC.NURSE ---
Dr. Nugent speaking with Dr. He
--- NOTE | 2022-06-22 19:41 | PC.NURSE ---
Dr. Nugent at BS speaking with pt
--- NOTE | 2022-06-22 20:00 | PC.NURSE ---
commercial instructor supervisor notified for bed assignment.
[2022-06-22 20:13] LABS: Troponin I < 0.01 ng/ml (0.00-0.034)
--- NOTE | 2022-06-22 20:30 | PC.WOUNDNOTE ---
Hospitalist at bedside
[2022-06-22 20:49] LABS: Coronavirus 19, PCR Not Detected (NotDetected); Influenza A, PCR Not Detected (NotDetected); Influenza B, PCR Not Detected (NotDetected)
--- NOTE | 2022-06-22 20:54 | PC.NURSE ---
called lab to check on time remaining of covid swab, stated 20 min remain. Pt & friend updated on expected wait times. Pt eating dinner provided by her friend.
--- NOTE | 2022-06-22 21:01 | EXP.HP ---
History of Present Illness *Admission Date: 06/22/22 *Reason for visit:: chest pain *History of present illness: This is a 76-year-old female with past medical history of Hypothyroidism, high cholesterol, hypertension, undergoing oral and IV chemo for ovarian cancer who presents to the emergency department today with complaints of chest pain. She reports chest tightness started around 1 PM while she was driving. She reports the pain encircled her chest but did not radiate elsewhere. She reports the pain was pressure-like in nature. She denies any diaphoresis, shortness of breath, palpitations or syncope with the associated chest pain. She does endorse IV chemo every 3 weeks for ovarian cancer and has prior history of uterine and breast cancer.She does endorse feeling generally unwell and feels as though she has not bounced back after this round of chemo as compared to the last round. She does endorse mild cough but reports that has been going on for some time. Emergency department medical work-up mostly unremarkable. Elevated D-dimer 0.69 but age adjusted is negative. Troponin negative. Dr. He with cardiology was consulted and recommends admission to the hospital given patient's comorbid risks. [facility] Medical History (Updated 06/22/22 @ 21:09 by NIA Ramos) Anemia Breast cancer CAD (coronary artery disease) Chemotherapy management, encounter for COPD (chronic obstructive pulmonary disease) Gallbladder disease GERD (gastroesophageal reflux disease) Graves disease HLD (hyperlipidemia) HTN (hypertension) Ovarian cancer Thyroid disease Surgical History H/O total hysterectomy with bilateral salpingo-oophorectomy (BSO) History of appendectomy History of lumpectomy of right breast Family History Other Family history of cancer Social History Smoking Status: Never smoker alcohol intake: never current occupational status: retired Travel in the last 8 weeks: Inside the [place] household members: none housing: house Review of Systems Constitutional Constitutional: Reports system reviewed and no additional complaints, except as documented Eyes Eyes: Reports system reviewed and no additional complaints, except as documented ENT Ears, Nose, Mouth, and Throat: Reports system reviewed and no additional complaints, except as documented *Cardiovascular Cardiovascular: Reports system reviewed and no additional complaints, except as documented *Respiratory Respiratory: Reports system reviewed and no additional complaints, except as documented *Gastrointestinal Gastrointestinal: Reports system reviewed and no additional complaints, except as documented *Genitourinary Genitourinary: Reports system reviewed and no additional complaints, except as documented *Musculoskeletal Musculoskeletal: Reports system reviewed and no additional complaints, except as documented Integumentary/Breasts Skin/Breast: Reports system reviewed and no additional complaints, except as documented *Neurologic Neurologic: Reports system reviewed and no additional complaints, except as documented Psychiatric Psychiatric: Reports system reviewed and no additional complaints, except as documented Endocrine Endocrine: Reports system reviewed and no additional complaints, except as documented Hematologic/Lymphatic Hematologic/Lymphatic: Reports system reviewed and no additional complaints, except as documented Allergic/Immunologic Allergic/Immunologic: Reports system reviewed and no additional complaints, except as documented Meds Home Medications and Allergies Home Medications Medication Instructions Recorded Confirmed Type anastrozole 1 mg tablet 1 mg PO DAILY HORMONE 01/30/18 06/22/22 History aspirin 81 mg chewable tablet 81 mg PO DAILY BLOOD THINNNER 01/30/18
[2022-06-22 23:20] LABS: Troponin I < 0.01 ng/ml (0.00-0.034)
[2022-06-22 23:26] LABS: Microscopic, Urine URINE MICROSCOPIC (MICROSCOPIC)
[2022-06-22 23:31] LABS: Appearance,Urine CLEAR (Clear); Bilirubin,Urine Negative (Negative); Blood, Urine 1+ (Negative); Color,Urine YELLOW (Yellow); Glucose,Urine (UA) Negative (Negative); Ketones,Urine Negative (Negative); Leukocyte Esterase,Urine Negative (Negative); Nitrate,Urine Negative (Negative); PH,Urine 5.5 (5.0-8.5); Protein,Urine Negative (Negative); Specific Gravity, Urine <= 1.005 (1.005-1.030); Urobilinogen,Urine 0.2 EU/dl (0.2)
[2022-06-22 23:53] LABS: Squamous Epithelial Cell,Urine Occasional #/hpf (0-5); WBC,Urine Occasional #/hpf (0-3)
[2022-06-23] VITALS: PULSE 70
--- NOTE | 2022-06-23 01:42 | PC.NURSE ---
pt arrived via wheelchair @ 2129.
[2022-06-23 04:00] VITALS: BP 116/56; PULSE 60; PULSE 72; RESP 20; TEMP 36.6; O2SAT 94
[2022-06-23 05:12] VITALS: BMI 32.1
--- NOTE | 2022-06-23 05:30 | PC.NURSE ---
NO ACUTE CHANGES SINCE PREVIOUS ASSESSMENT. PT LUNG SOUNDS ARE CLEAR AND IS TOLERATING ROOM AIR WELL. NO C/O CHEST PAIN SINCE ARRIVING TO THE FLOOR. NO C/O N/V/D/ OR SOB. REMAINS NSR ON TELE. HAS AMBULATED TO THE BATHROOM WITH STANDBY ASSIST. PT HAS RESTED WELL THIS SHIFT. PT STATES THAT SHE FEELS MUCH BETTER. CALL WORKMAN WITHIN REACH.
[2022-06-23 08:00] VITALS: BP 112/47; PULSE 63; PULSE 67; RESP 16; TEMP 36.9; O2SAT 93
[2022-06-23 08:00] LABS: Basophils % 0.7 % (0.1-2.0); Eosinophils # 0.3 K/mm3 (0.0-0.4); Eosinophils % 5.7 % (0.1-12.0); Hematocrit 38.8 % (37.0-47.0); Hemoglobin 12.4 g/dL (12.2-16.2); Lymphocytes # 0.8 K/mm3 (0.7-4.5); Mean Corpuscular Hemoglobin 32.3 pg (27.0-31.2); Mean Corpuscular Volume 100.8 fl (81-99); Mean Platelet Volume 8.2 fl (7.4-10.4); Monocytes # 0.2 K/mm3 (0.1-1.0); Neutrophils # 3.4 K/mm3 (1.8-7.8); Neutrophils % 72.6 % (37.0-80.0); Platelet Count 235 K/mm3 (142-424); Red Blood Count 3.85 M/mm3 (4.20-5.40); Red Cell Distribution Width 15.8 % (11.5-17.5); White Blood Count 4.7 K/mm3 (4.8-10.8)
[2022-06-23 08:06] LABS: Anion Gap 17.3 mEq/L (5-15); Blood Urea Nitrogen 21 mg/dl (7-17); Calcium 9.7 mg/dl (8.4-10.2); Carbon Dioxide 28 mmol/L (22.0-30.0); Chloride 97 mmol/L (98-107); Chol/HDL Ratio 3.4 (1-3.5); Cholesterol 166 mg/dl (140-200); Creatinine Clearance Estimated 62 mL/min (50-200); Estimated Glomerular Filt Rate 61 ml/min (>60); GFR (African American) 74 ML/MIN (>60); Glucose 82 mg/dl (74-100); HDL Cholesterol 49 mg/dl (40-60); Magnesium 1.3 mg/dl (1.6-2.3); Potassium 3.3 mmoL/L (3.5-5.1); Sodium 139 mmol/L (136-145); Triglycerides 107 mg/dl (30-150); VLDL Cholesterol 21 mg/dL (0-40)
[2022-06-23 08:16] LABS: Direct LDL Cholesterol 81.02 mg/dL (100-129)
[2022-06-23 08:34] LABS: Hemoglobin A1C 5.6 % (4.0-6.0)
[2022-06-23 08:35] LABS: Thyroid Stimulating Hormone 4.17 uIU/mL (0.465-4.68)
--- NOTE | 2022-06-23 08:47 | PC.NURSE ---
slab miller operator was in building to do a conference producer on another patient. called lab and spoke with rafaela. called around 8:15 or before
[2022-06-23 11:38] VITALS: BP 145/56; PULSE 63; RESP 16; TEMP 36.9; O2SAT 95
--- NOTE | 2022-06-23 11:42 | EXP.DC.SUM ---
General Admission date:: 06/22/22 HPI HPI HPI: This is a 76-year-old female with past medical history of Hypothyroidism, high cholesterol, hypertension, undergoing oral and IV chemo for ovarian cancer who presents to the emergency department today with complaints of chest pain. She reports chest tightness started around 1 PM while she was driving. She reports the pain encircled her chest but did not radiate elsewhere. She reports the pain was pressure-like in nature. She denies any diaphoresis, shortness of breath, palpitations or syncope with the associated chest pain. She does endorse IV chemo every 3 weeks for ovarian cancer and has prior history of uterine and breast cancer.She does endorse feeling generally unwell and feels as though she has not bounced back after this round of chemo as compared to the last round. She does endorse mild cough but reports that has been going on for some time. Emergency department medical work-up mostly unremarkable. Elevated D-dimer 0.69 but age adjusted is negative. Troponin negative. Dr. He with cardiology was consulted and recommends admission to the hospital given patient's comorbid risks. Hospital Course Hospital Course Hospital Course: Patient was admitted for chest pain rule out. She was started on beta-blockers and nitroglycerin with improvement in symptoms. She has active ovarian cancer and is receiving chemotherapy. She elected not to perform invasive diagnostic heart cath. We will manage medically. Started patient on bisoprolol 10 mg daily and sublingual nitro. We will follow-up with cardiology. Exam Data for Last 24 hours Vital signs and Labs for Last 24 Hours: Temp Pulse Resp BP Pulse Ox 98.4 F 63 16 145/56 H 95 06/23/22 11:38 06/23/22 11:38 06/23/22 11:38 06/23/22 11:38 06/23/22 11:38 Laboratory Results - last 24 hr 06/22/22 16:43: D-Dimer 0.69 H 06/22/22 16:45: WBC 6.1 D, RBC 4.17 L, Hgb 13.4, Hct 41.6, MCV 99.7 H, MCH 32.1 H, MCHC 32.2, RDW 15.8, Plt Count 244, MPV 7.6, Neut % (Auto) 77.6, Lymph % (Auto) 14.2, Zavala % (Auto) 4.1, Eos % (Auto) 3.2, Baso % (Auto) 1.0, Neut # (Auto) 4.7, Lymph # (Auto) 0.9, Zavala # (Auto) 0.3, Eos # (Auto) 0.2, Baso # (Auto) 0.1 06/22/22 16:45: Sodium 139, Potassium 3.7, Chloride 103, Carbon Dioxide 29, Anion Gap 10.7, BUN 24 H, Creatinine 0.80, Estimated Creat Clear 62, Estimated GFR 70, Est GFR ( Amer) 84, Glucose 84, Calcium 10.0, Troponin I < 0.01 06/22/22 19:16: Troponin I < 0.01 06/22/22 20:10: SARS-CoV-2 (PCR) Not detected, Influenza A Untype (PCR) Not detected, Influenza Type B (PCR) Not detected 06/22/22 22:35: Troponin I < 0.01 06/22/22 23:20: Urine Color Yellow, Urine Appearance Clear, Urine pH 5.5, Ur Specific [place] <= 1.005, Urine Protein Negative, Urine Glucose (UA) Negative, Urine Ketones Negative, Urine Blood 1+, Urine Nitrate Negative, Urine Bilirubin Negative, Urine Urobilinogen 0.2, Ur Leukocyte Esterase Negative, Urine RBC None, Urine WBC Occasional, Ur Squamous Epith Cells Occasional, Urine Bacteria None 06/23/22 06:40: Hemoglobin A1c 5.6 06/23/22 06:40: WBC 4.7 L, RBC 3.85 L, Hgb 12.4, Hct 38.8, MCV 100.8 H, MCH 32.3 H, MCHC 32.0, RDW 15.8, Plt Count 235, MPV 8.2, Neut % (Auto) 72.6, Lymph % (Auto) 17.0, Zavala % (Auto) 4.0, Eos % (Auto) 5.7, Baso % (Auto) 0.7, Neut # (Auto) 3.4, Lymph # (Auto) 0.8, Zavala # (Auto) 0.2, Eos # (Auto) 0.3, Baso # (Auto) 0.0 06/23/22 06:40: Sodium 139, Potassium 3.3 L, Chloride 97 L, Carbon Dioxide 28, Anion Gap 17.3 H, BUN 21 H, Creatinine 0.90, Estimated Creat Clear 62, Estimated GFR 61, Est GFR ( Amer) 74, Glucose 82, Calcium 9.7, Magnesium 1.3 L, Triglycerides 107, Cholesterol 166, LDL Cholesterol Direct 81.02 L, VLDL Cholesterol 21, HDL Cholesterol 49, Cholesterol/HDL Ratio 3.4, TSH 4.17 06/23/22 06:40: Free T4 1.10 I & O for Last 24 hours: Intake & Output 06/20/22 06/21/22 06/22/22 06/23/22 23:59 23:59 23:59 23:59 Intake Total 240 / 240 Output Total 400
--- NOTE | 2022-06-27 15:26 | CARE MANAGER ---
Spoke with patient for post-discharge phone interview, patient states that she is doing well and has no issues at this time
== END 2022-06-23 13:17 | disposition home or self-care (01) ==
LOC: ER 19:47 → 2ND 21:58
PROVIDERS: Nurse Practitioner Acute Care; Admitting Provider Student in an Organized Health Care Education/Training Program; Emergency Provider Emergency Medicine; Visit Provider Student in an Organized Health Care Education/Training Program
DX: R07.9 Chest pain, unspecified (principal); Z79.899 Other long term (current) drug therapy; Z79.01 Long term (current) use of anticoagulants; C56.9 Malignant neoplasm of unspecified ovary; E03.9 Hypothyroidism, unspecified; I10 Essential (primary) hypertension; E78.5 Hyperlipidemia, unspecified; I25.10 Atherosclerotic heart disease of native coronary artery without angina pectoris; Z20.822 Contact with and (suspected) exposure to COVID-19
CPT/HCPCS: G0378; 71046; 80048; 80061; 81001; 83036; 83735; 84439; 84443; 84484; 85025; 85378; 93005; 99285; C9803; J1642; U0003; U0005

== ENCOUNTER 2022-07-06 11:06 | Outpatient (CLI) | payer MEDICARE, OTHER, SELFPAY ==
[2022-07-06 11:12] VITALS: BMI 31.5
[2022-07-06 11:43] LABS: Basophils # 0.1 K/mm3 (0-0.2); Basophils % 1.1 % (0.1-2.0); Chloride 104 mmol/L (98-107); Eosinophils # 0.3 K/mm3 (0.0-0.4); Eosinophils % 6.1 % (0.1-12.0); Hematocrit 42.4 % (37.0-47.0); Hemoglobin 13.3 g/dL (12.2-16.2); Lymphocytes # 1.1 K/mm3 (0.7-4.5); Lymphocytes % 24.6 % (10-50); Mean Corpuscular HGB Conc 31.4 g/dL (31.8-35.4); Mean Corpuscular Hemoglobin 31.5 pg (27.0-31.2); Mean Corpuscular Volume 100.4 fl (81-99); Mean Platelet Volume 7.7 fl (7.4-10.4); Monocytes # 0.3 K/mm3 (0.1-1.0); Monocytes % 5.7 % (1.7-9.3); Neutrophils # 2.9 K/mm3 (1.8-7.8); Neutrophils % 62.5 % (37.0-80.0); Platelet Count 274 K/mm3 (142-424); Red Blood Count 4.22 M/mm3 (4.20-5.40); Red Cell Distribution Width 15.5 % (11.5-17.5); White Blood Count 4.6 K/mm3 (4.8-10.8)
[2022-07-06 11:44] LABS: Potassium 3.9 mmoL/L (3.5-5.1); Sodium 141 mmol/L (136-145)
[2022-07-06 11:46] LABS: Alanine Aminotransferase 20 U/L (12-78); Anion Gap 12.9 mEq/L (5-15); Aspartate Amino Transferase 26 U/L (14-36); Blood Urea Nitrogen 26 mg/dl (7-17); Carbon Dioxide 28 mmol/L (22.0-30.0); Creatinine Clearance Estimated 61 mL/min (50-200); Estimated Glomerular Filt Rate 54 ml/min (>60); GFR (African American) 65 ML/MIN (>60)
[2022-07-06 11:47] LABS: Albumin/Globulin Ratio 1.5 (1.1-1.8); Alkaline Phosphatase 86 U/L (38-126); Bilirubin,Total 0.3 mg/dl (0.2-1.3); Calcium 9.8 mg/dl (8.4-10.2); Globulin 2.7 g/dL (1.3-3.2); Glucose 91 mg/dl (74-100); Total Protein,Serum 6.7 g/dl (6.3-8.2)
== END 2022-07-06 11:35 | disposition home or self-care (01) ==
LOC: INF 11:07
PROVIDERS: PCP Family Medicine; Visit Provider Obstetrics & Gynecology
DX: C56.1 Malignant neoplasm of right ovary (principal); Z45.2 Encounter for adjustment and management of vascular access device
CPT/HCPCS: 36591; 80053; 85025; J1642

== ENCOUNTER 2022-07-12 11:37 | Outpatient (CLI) | payer MEDICARE, OTHER, SELFPAY ==
[2022-07-12 11:41] VITALS: BMI 31.5
[2022-07-12 11:55] VITALS: BP 136/73; PULSE 91; RESP 16; TEMP 36.6; O2SAT 100
[2022-07-12 12:17] LABS: Chloride 105 mmol/L (98-107); Potassium 3.9 mmoL/L (3.5-5.1); Sodium 140 mmol/L (136-145)
[2022-07-12 12:20] LABS: Alanine Aminotransferase 19 U/L (12-78); Albumin Level 4.1 g/dl (3.5-5.0); Albumin/Globulin Ratio 1.5 (1.1-1.8); Alkaline Phosphatase 68 U/L (38-126); Anion Gap 11.9 mEq/L (5-15); Aspartate Amino Transferase 29 U/L (14-36); Bilirubin,Total 0.4 mg/dl (0.2-1.3); Blood Urea Nitrogen 26 mg/dl (7-17); Carbon Dioxide 27 mmol/L (22.0-30.0); Creatinine Clearance Estimated 61 mL/min (50-200); Estimated Glomerular Filt Rate 70 ml/min (>60); GFR (African American) 84 ML/MIN (>60); Globulin 2.8 g/dL (1.3-3.2); Total Protein,Serum 6.9 g/dl (6.3-8.2)
[2022-07-12 12:21] LABS: Calcium 9.8 mg/dl (8.4-10.2); Glucose 80 mg/dl (74-100)
[2022-07-12 12:22] LABS: Basophils % 1.1 % (0.1-2.0); Eosinophils # 0.2 K/mm3 (0.0-0.4); Eosinophils % 5.4 % (0.1-12.0); Hematocrit 41.7 % (37.0-47.0); Hemoglobin 13.3 g/dL (12.2-16.2); Lymphocytes # 0.7 K/mm3 (0.7-4.5); Lymphocytes % 17.2 % (10-50); Mean Corpuscular HGB Conc 31.9 g/dL (31.8-35.4); Mean Corpuscular Hemoglobin 32.5 pg (27.0-31.2); Mean Corpuscular Volume 101.8 fl (81-99); Mean Platelet Volume 7.6 fl (7.4-10.4); Monocytes # 0.2 K/mm3 (0.1-1.0); Monocytes % 5.5 % (1.7-9.3); Neutrophils # 2.9 K/mm3 (1.8-7.8); Neutrophils % 70.8 % (37.0-80.0); Platelet Count 245 K/mm3 (142-424); Red Blood Count 4.09 M/mm3 (4.20-5.40); Red Cell Distribution Width 15.7 % (11.5-17.5)
== END 2022-07-12 12:05 | disposition home or self-care (01) ==
LOC: INF 11:38
PROVIDERS: PCP Family Medicine; Visit Provider Obstetrics & Gynecology
DX: C57.00 Malignant neoplasm of unspecified fallopian tube (principal); Z45.2 Encounter for adjustment and management of vascular access device
CPT/HCPCS: 36591; 80053; 85025; 96523; J1642

== ENCOUNTER 2022-07-27 11:12 | Outpatient (CLI) | payer MEDICARE, OTHER, SELFPAY ==
[2022-07-27 11:15] VITALS: BMI 31.5
[2022-07-27 11:45] LABS: Chloride 105 mmol/L (98-107); Potassium 3.8 mmoL/L (3.5-5.1); Sodium 140 mmol/L (136-145)
[2022-07-27 11:47] LABS: Blood Urea Nitrogen 23 mg/dl (7-17); Creatinine Clearance Estimated 61 mL/min (50-200); Estimated Glomerular Filt Rate 61 ml/min (>60); GFR (African American) 74 ML/MIN (>60)
[2022-07-27 11:48] LABS: Alanine Aminotransferase 18 U/L (12-78); Albumin Level 4.1 g/dl (3.5-5.0); Albumin/Globulin Ratio 1.5 (1.1-1.8); Alkaline Phosphatase 64 U/L (38-126); Anion Gap 9.8 mEq/L (5-15); Aspartate Amino Transferase 24 U/L (14-36); Bilirubin,Total 0.4 mg/dl (0.2-1.3); Calcium 9.7 mg/dl (8.4-10.2); Carbon Dioxide 29 mmol/L (22.0-30.0); Globulin 2.7 g/dL (1.3-3.2); Glucose 95 mg/dl (74-100); Total Protein,Serum 6.8 g/dl (6.3-8.2)
[2022-07-27 11:55] LABS: Basophils # 0.1 K/mm3 (0-0.2); Basophils % 1.5 % (0.1-2.0); Eosinophils # 0.2 K/mm3 (0.0-0.4); Eosinophils % 7.3 % (0.1-12.0); Hematocrit 43.5 % (37.0-47.0); Hemoglobin 13.9 g/dL (12.2-16.2); Lymphocytes # 0.8 K/mm3 (0.7-4.5); Lymphocytes % 25.2 % (10-50); Mean Corpuscular Hemoglobin 32.9 pg (27.0-31.2); Mean Corpuscular Volume 102.9 fl (81-99); Mean Platelet Volume 8.3 fl (7.4-10.4); Monocytes # 0.2 K/mm3 (0.1-1.0); Platelet Count 267 K/mm3 (142-424); Red Blood Count 4.23 M/mm3 (4.20-5.40); Red Cell Distribution Width 15.5 % (11.5-17.5); White Blood Count 3.3 K/mm3 (4.8-10.8)
== END 2022-07-27 11:25 | disposition home or self-care (01) ==
LOC: INF 11:13
PROVIDERS: PCP Family Medicine; Visit Provider Obstetrics & Gynecology
DX: C57.00 Malignant neoplasm of unspecified fallopian tube (principal); Z45.2 Encounter for adjustment and management of vascular access device
CPT/HCPCS: 36591; 80053; 85025; J1642

== ENCOUNTER 2022-08-03 11:17 | Outpatient (CLI) | payer MEDICARE, OTHER, SELFPAY ==
[2022-08-03 11:23] VITALS: BMI 31.5
[2022-08-03 11:43] LABS: Basophils % 1.1 % (0.1-2.0); Eosinophils # 0.3 K/mm3 (0.0-0.4); Eosinophils % 7.3 % (0.1-12.0); Hematocrit 44.7 % (37.0-47.0); Lymphocytes # 0.7 K/mm3 (0.7-4.5); Mean Corpuscular HGB Conc 31.3 g/dL (31.8-35.4); Mean Corpuscular Hemoglobin 32.6 pg (27.0-31.2); Mean Corpuscular Volume 104.2 fl (81-99); Mean Platelet Volume 7.8 fl (7.4-10.4); Monocytes # 0.2 K/mm3 (0.1-1.0); Monocytes % 4.3 % (1.7-9.3); Neutrophils # 2.7 K/mm3 (1.8-7.8); Neutrophils % 68.2 % (37.0-80.0); Platelet Count 240 K/mm3 (142-424); Red Blood Count 4.29 M/mm3 (4.20-5.40); Red Cell Distribution Width 15.4 % (11.5-17.5); White Blood Count 3.9 K/mm3 (4.8-10.8)
[2022-08-03 11:45] LABS: Chloride 104 mmol/L (98-107); Sodium 140 mmol/L (136-145)
[2022-08-03 11:46] LABS: Potassium 3.9 mmoL/L (3.5-5.1)
[2022-08-03 11:48] LABS: Alanine Aminotransferase 18 U/L (12-78); Albumin Level 4.1 g/dl (3.5-5.0); Albumin/Globulin Ratio 1.4 (1.1-1.8); Alkaline Phosphatase 66 U/L (38-126); Anion Gap 11.9 mEq/L (5-15); Aspartate Amino Transferase 27 U/L (14-36); Bilirubin,Total 0.4 mg/dl (0.2-1.3); Blood Urea Nitrogen 23 mg/dl (7-17); Carbon Dioxide 28 mmol/L (22.0-30.0); Creatinine Clearance Estimated 61 mL/min (50-200); Estimated Glomerular Filt Rate 61 ml/min (>60); GFR (African American) 74 ML/MIN (>60); Globulin 2.9 g/dL (1.3-3.2)
[2022-08-03 11:49] LABS: Calcium 9.6 mg/dl (8.4-10.2); Glucose 99 mg/dl (74-100)
== END 2022-08-03 11:35 | disposition home or self-care (01) ==
LOC: INF 11:19
PROVIDERS: PCP Family Medicine; Visit Provider Obstetrics & Gynecology
DX: C56.9 Malignant neoplasm of unspecified ovary (principal); Z45.2 Encounter for adjustment and management of vascular access device
CPT/HCPCS: 36591; 80053; 85025; J1642

== ENCOUNTER 2022-08-14 16:59 | Emergency (ER) | payer MEDICARE, OTHER, SELFPAY ==
--- NOTE | 2022-08-14 17:03 | ECG_ITS ---
APPROVED REPORT Exam: Resting ECG HR:97 bpm ECG Measurements Heart Rate 97 AXES NJ 151 P 30 QRSd 79 QRS 4 QT 344 T 71 QTc 398 Conclusion SINUS RHYTHM LOW QRS VOLTAGE IN PRECORDIAL LEADS [QRS DEFLECTION < 1.0 mV IN CHEST LEADS] NONSPECIFIC T-WAVE ABNORMALITY BORDERLINE ECG UNCONFIRMED REPORT Electronically signed by : Ludin Hughes MD 08/15/2022 21:46:19
--- NOTE | 2022-08-14 17:04 | HMH.EDGENADL ---
Discharge Plan Disposition Patient Disposition: Still a Patient Condition: Good Prescriptions Prescriptions: No Action anastrozole 1 MG tablet 1 mg PO DAILY potassium chloride [K-Tab] 10 MEQ tablet extended release 10 meq PO DAILY simvastatin 40 MG tablet 40 mg PO DAILY aspirin 81 MG tablet,chewable 81 mg PO DAILY furosemide 20 MG tablet 20 mg PO DAILY cholecalciferol (vitamin D3) 50,000 UNIT capsule 50,000 unit PO DAILY famotidine 20 MG tablet 20 mg PO BID ondansetron HCl 8 MG tablet 8 mg PO BID Rx Instructions: TAKE PRIOR TO CHEMO PILL BID prochlorperazine maleate 10 MG tablet 10 mg PO DAILY PRN (Reason: Nausea) cyclophosphamide 50 mg Tablet 50 mg PO HS levothyroxine [Synthroid] 75 mcg tablet 75 mcg PO DAILY Label Comments: TAKE 1 TABLET BY MOUTH EVERY MORNING bisoprolol fumarate 5 mg Tablet 10 mg PO DAILY 30 Days Qty: 60 10RF nitroglycerin 0.4 mg tablet, sublingual 0.4 mg sublingual Q5M PRN (Reason: chest pain) Qty: 30 0RF Rx Instructions: do not exceed 3 doses per episode Referrals Follow up/Referrals: Provider,Referral, MD [Referring] - See instructions Activity Restrictions/Add. Instructions Additional Instructions/Restrictions: Cardiac cath on Monday as previously scheduled. Follow-up with your oncologist for findings on CT scan of chest. Disc is provided. Additional instructions for CHEST PAIN: See your physician as soon as possible for further evaluation. Return immediately if worsening chest pain, vomiting, shortness of breath, fever, coughing of blood. Clinical Impressions Clinical Impression: Chest pain Instructions Patient Instructions: DI for Chest Pain Discharge ED Provider: Jesus Patterson General Adult HPI General Chief complaint: Chest Pain Stated complaint: CHEST PAIN Time Seen by Provider: 08/14/22 17:15 History of Present Illness HPI narrative: Patient states that she was grocery shopping when she got an episode of chest discomfort. She describes a pressure across her anterior chest. No nausea. She got hot but was not sweaty. She took a nitroglycerin and sat down. She then felt like she was going to pass out and therefore laid on the floor. She did not lose consciousness. Her chest pain then resolved. She now has no symptoms. Chest pain lasted about 5 minutes. She had some shortness of breath. She has only taken nitroglycerin 1 previous time. She does not have any prior known heart disease. She did see a commissions coordinator several years ago because she was having episodes of passing out, but says that they determined that it was due to dehydration from her chemotherapy. She had an episode like this in May and was hospitalized here. The chest discomfort was the same as the last episode, but she was nauseated and sweaty with the previous episode. She was admitted and GA was ruled out. The patient says that she declined any intervention at this facility by Dr. He, commissions coordinator. She preferred to follow-up with her physicians. She says that she saw her cancer doctor a few days after discharge and was referred to a commissions coordinator. She says that she was scheduled for an echocardiogram and heart cath which were canceled because of poor weather. She just recently had her echocardiogram rescheduled and performed and is scheduled to have a heart cath this coming Monday. The patient has ovarian cancer and is treated at [facility]. Related Data Home Medications Medication Instructions Recorded Confirmed anastrozole 1 mg tablet 1 mg PO DAILY HORMONE 01/30/18 06/22/22 aspirin 81 mg chewable tablet 81 mg PO DAILY BLOOD THINNNER 01/30/18 06/22/22 cholecalciferol (vitamin D3) 1,250 50,000 unit PO DAILY BONES 01/30/18 06/22/22 mcg (50,000 unit) capsule furosemide 20 mg tablet 20 mg PO DAILY Hypertension 01/30/18 06/22/22 potassium chloride 10 mEq 10 meq
[2022-08-14 17:11] VITALS: BP 99/59; PULSE 103
[2022-08-14 17:36] VITALS: BP 99/59; PULSE 87; O2SAT 94
[2022-08-14 17:42] VITALS: BP 141/107; PULSE 97; RESP 16; TEMP 36.7; O2SAT 98; BMI 23.0
--- NOTE | 2022-08-14 17:45 | XR_ITS ---
PROCEDURE INFORMATION: Exam: XR Chest Exam date and time: 08/14/2022 6:05 PM Age: 76 years old Clinical indication: Sternal or substernal pain and right-sided and left-sided; Prior surgery; Surgery date: 6+ months; Surgery type: Lumpectomy on left due to breast CA in past. Currently receiving chemo for ovarian CA. ; Additional info: Cp TECHNIQUE: Imaging protocol: Radiologic exam of the chest. Views: 1 view. COMPARISON: CR XR CHEST 2V 06/22/2022 4:33 PM FINDINGS: Tubes, catheters and devices: Right IJ Port-A-Cath tip in the SVC. Lungs: The lung bases there is scattered areas of atelectasis. Granulomatous change. COPD. Pleural spaces: Unremarkable. No pleural effusion. No pneumothorax. Heart/Mediastinum: Unremarkable. No cardiomegaly. Bones/joints: Unremarkable. IMPRESSION: No acute findings.
--- NOTE | 2022-08-14 17:54 | PC.NURSE ---
rad here to do portable x-ray
[2022-08-14 17:55] LABS: Basophils # 0.1 K/mm3 (0-0.2); Basophils % 1.2 % (0.1-2.0); Eosinophils # 0.3 K/mm3 (0.0-0.4); Eosinophils % 5.6 % (0.1-12.0); Hematocrit 41.9 % (37.0-47.0); Hemoglobin 13.8 g/dL (12.2-16.2); Lymphocytes # 1.2 K/mm3 (0.7-4.5); Lymphocytes % 22.5 % (10-50); Mean Corpuscular HGB Conc 32.9 g/dL (31.8-35.4); Mean Corpuscular Hemoglobin 33.2 pg (27.0-31.2); Mean Corpuscular Volume 100.7 fl (81-99); Monocytes # 0.3 K/mm3 (0.1-1.0); Monocytes % 4.8 % (1.7-9.3); Neutrophils # 3.4 K/mm3 (1.8-7.8); Platelet Count 271 K/mm3 (142-424); Red Blood Count 4.16 M/mm3 (4.20-5.40); Red Cell Distribution Width 15.3 % (11.5-17.5); White Blood Count 5.1 K/mm3 (4.8-10.8)
[2022-08-14 18:00] VITALS: BP 132/84; PULSE 90; O2SAT 98
[2022-08-14 18:07] LABS: Blood Urea Nitrogen 26 mg/dl (7-17); Calcium 9.3 mg/dl (8.4-10.2); Carbon Dioxide 26 mmol/L (22.0-30.0); Chloride 104 mmol/L (98-107); Creatinine Clearance Estimated 45 mL/min (50-200); Estimated Glomerular Filt Rate 61 ml/min (>60); GFR (African American) 74 ML/MIN (>60); Glucose 96 mg/dl (74-100); Potassium 3.6 mmoL/L (3.5-5.1)
[2022-08-14 18:09] LABS: Anion Gap 11.6 mEq/L (5-15); Sodium 138 mmol/L (136-145)
[2022-08-14 18:13] LABS: D-Dimer 0.87 ug/mL (0.0-0.5)
--- NOTE | 2022-08-14 18:20 | CT_ITS ---
PROCEDURE INFORMATION: Exam: CTA Chest With Contrast Exam date and time: 08/14/2022 6:52 PM Age: 76 years old Clinical indication: Pain; Chest pressure; Additional info: Cp, elev d-dimer TECHNIQUE: Imaging protocol: Computed tomographic angiography of the chest with contrast. 3D rendering (Not supervised by radiologist): MIP and/or 3D reconstructed images were created by the technologist. Radiation optimization: All CT scans at this facility use at least one of these dose optimization techniques: automated exposure control; mA and/or kV adjustment per patient size (includes targeted exams where dose is matched to clinical indication); or iterative reconstruction. Contrast material: ISOVUE; Contrast volume: 70 ml; Contrast route: INTRAVENOUS (IV); COMPARISON: CR XR CHEST PORTABLE 08/14/2022 6:05 PM FINDINGS: Tubes, catheters and devices: Right jugular port with catheter tip near the cavoatrial junction, without gross complication. Pulmonary arteries: The pulmonary arteries enhance appropriately with no evidence of pulmonary embolism. Aorta: The aorta demonstrates mild ectasia/tortuosity and moderate calcific atherosclerosis. No aortic aneurysm or dissection. No mediastinal hematoma. Thyroid: The thyroid gland is severely atrophic. Correlate clinically for evidence of hypothyroidism. Lungs: No acute tracheobronchial abnormalities. No gross pulmonary infiltrates or edema pattern. Bandlike atelectasis in the perihilar and basilar distributions. There is a 3 mm noncalcified juxtapleural pulmonary nodule in the lateral right apex on series 5, image 28. For patients at low risk (minimal or absent history of smoking and of other known risk factors), no routine follow-up is indicated. For patients at high risk (history of smoking or of other known risk factors), consider optional CT at 12 months. (Leonardo et al., Fleischner Society, 2017). If there is history of primary malignancy in this patient the, then management should be based on treatment protocol. There is a calcified granuloma in the lateral right lower lobe. Pleural spaces: No pleural effusion. No pneumothorax. Heart: Heart size normal. Mild coronary artery calcification. Minimal pericardial fluid without jennifer pericardial effusion. Mediastinal space: The esophagus is largely contracted but demonstrates no gross abnormality. Lymph nodes: No supraclavicular or axillary adenopathy. No mediastinal or hilar adenopathy. Gallbladder and bile ducts: Prior cholecystectomy with moderate postoperative dilatation of the common bile duct. This is unchanged. Pancreas: Moderate fatty atrophy of the pancreas Bones/joints: 16 mm osteolytic bone lesion in the upper sternal body about 1.5 cm below the sternomanubrial joint with slight anterior and posterior cortical expansion. 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 6 mm sclerotic lesion in the leftward manubrium also suspicious for potential metastasis. 6 mm sclerotic lesion in the leftward T12 vertebral body is unchanged from 05/09/2022 and could represent an incidental bone island, versus treated metastasis. Consider prompt nonemergent bone scan or PET-CT correlation as clinically indicated, or management per treatment protocol if there is known malignancy. Mild thoracic spondylosis. Soft tissues: In the upper central left breast 4 cm above the nipple there is a 2.4 x 1.6 by 1.2 cm subdermal nodular density with mild overlying skin retraction and slightly spiculated peripheral margin. Surgical clips and calcifications are seen along its deep margin. This might represent post treatment changes of prior lumpectomy although can not exclude residual
[2022-08-14 18:24] LABS: Troponin I < 0.01 ng/ml (0.00-0.034)
[2022-08-14 18:30] VITALS: BP 159/87; RESP 16
--- NOTE | 2022-08-14 18:44 | PC.NURSE ---
rad here to take pt for imaging
--- NOTE | 2022-08-14 18:57 | PC.NURSE ---
pt back from rad
--- NOTE | 2022-08-14 20:06 | PC.NURSE ---
Called radiology for disc of images
--- NOTE | 2022-08-14 20:41 | PC.NURSE ---
2nd troponin drawn at this time
[2022-08-14 21:17] LABS: Troponin I < 0.01 ng/ml (0.00-0.034)
--- NOTE | 2022-08-14 21:26 | PC.NURSE ---
Dr. Buchanan updating pt on results and POC
[2022-08-14 21:38] VITALS: BP 160/84; PULSE 88; RESP 16; TEMP 36.6; O2SAT 98
== END 2022-08-14 21:42 | disposition home or self-care (01) ==
PROVIDERS: Emergency Provider Emergency Medicine; PCP Family Medicine
DX: R07.89 Other chest pain (principal); C56.9 Malignant neoplasm of unspecified ovary; Z86.2 Personal history of diseases of the blood and blood-forming organs and certain disorders involving the immune mechanism; Z85.3 Personal history of malignant neoplasm of breast; I25.10 Atherosclerotic heart disease of native coronary artery without angina pectoris; Z92.21 Personal history of antineoplastic chemotherapy; J44.9 Chronic obstructive pulmonary disease, unspecified; I10 Essential (primary) hypertension; E78.5 Hyperlipidemia, unspecified; K82.9 Disease of gallbladder, unspecified; K21.9 Gastro-esophageal reflux disease without esophagitis; E05.90 Thyrotoxicosis, unspecified without thyrotoxic crisis or storm; E03.9 Hypothyroidism, unspecified
CPT/HCPCS: 71045; 71275; 80048; 84484; 85025; 85378; 93005; 96360; 99285; Q9967

== ENCOUNTER 2022-08-24 11:44 | Outpatient (CLI) | payer MEDICARE, OTHER, SELFPAY ==
[2022-08-24 11:52] VITALS: BMI 31.5
[2022-08-24 12:19] LABS: Chloride 108 mmol/L (98-107); Sodium 141 mmol/L (136-145)
[2022-08-24 12:21] LABS: Blood Urea Nitrogen 22 mg/dl (7-17); Creatinine Clearance Estimated 61 mL/min (50-200); Estimated Glomerular Filt Rate 81 ml/min (>60); GFR (African American) 98 ML/MIN (>60)
[2022-08-24 12:22] LABS: Alanine Aminotransferase 17 U/L (12-78); Albumin/Globulin Ratio 1.4 (1.1-1.8); Alkaline Phosphatase 69 U/L (38-126); Aspartate Amino Transferase 25 U/L (14-36); Bilirubin,Total 0.5 mg/dl (0.2-1.3); Calcium 9.4 mg/dl (8.4-10.2); Carbon Dioxide 26 mmol/L (22.0-30.0); Globulin 2.9 g/dL (1.3-3.2); Glucose 106 mg/dl (74-100); Total Protein,Serum 6.9 g/dl (6.3-8.2)
[2022-08-24 12:26] LABS: Basophils # 0.1 K/mm3 (0-0.2); Basophils % 3.5 % (0.1-2.0); Eosinophils # 0.3 K/mm3 (0.0-0.4); Eosinophils % 8.7 % (0.1-12.0); Hematocrit 42.7 % (37.0-47.0); Hemoglobin 13.7 g/dL (12.2-16.2); Lymphocytes # 0.7 K/mm3 (0.7-4.5); Lymphocytes % 19.2 % (10-50); Mean Corpuscular HGB Conc 32.1 g/dL (31.8-35.4); Mean Corpuscular Hemoglobin 32.8 pg (27.0-31.2); Mean Corpuscular Volume 102.1 fl (81-99); Mean Platelet Volume 7.9 fl (7.4-10.4); Monocytes # 0.2 K/mm3 (0.1-1.0); Monocytes % 4.6 % (1.7-9.3); Neutrophils # 2.2 K/mm3 (1.8-7.8); Platelet Count 246 K/mm3 (142-424); Red Blood Count 4.18 M/mm3 (4.20-5.40); Red Cell Distribution Width 15.4 % (11.5-17.5); White Blood Count 3.5 K/mm3 (4.8-10.8)
== END 2022-08-24 12:05 | disposition home or self-care (01) ==
LOC: INF 11:45
PROVIDERS: PCP Family Medicine; Visit Provider Obstetrics & Gynecology
DX: C57.00 Malignant neoplasm of unspecified fallopian tube (principal); Z45.2 Encounter for adjustment and management of vascular access device
CPT/HCPCS: 36591; 80053; 85025; J1642

== ENCOUNTER → 2022-09-21 11:43 | Outpatient (CLI) | payer MEDICARE, OTHER, SELFPAY ==
[2022-09-21 11:48] VITALS: BMI 31.5
[2022-09-21 12:12] LABS: Basophils # 0.1 K/mm3 (0-0.2); Basophils % 1.2 % (0.1-2.0); Eosinophils # 0.3 K/mm3 (0.0-0.4); Eosinophils % 7.5 % (0.1-12.0); Hematocrit 44.4 % (37.0-47.0); Lymphocytes # 0.7 K/mm3 (0.7-4.5); Lymphocytes % 14.5 % (10-50); Mean Corpuscular HGB Conc 31.5 g/dL (31.8-35.4); Mean Corpuscular Hemoglobin 33.2 pg (27.0-31.2); Mean Corpuscular Volume 105.4 fl (81-99); Mean Platelet Volume 7.8 fl (7.4-10.4); Monocytes # 0.2 K/mm3 (0.1-1.0); Monocytes % 4.4 % (1.7-9.3); Neutrophils # 3.2 K/mm3 (1.8-7.8); Neutrophils % 72.5 % (37.0-80.0); Platelet Count 267 K/mm3 (142-424); Red Blood Count 4.22 M/mm3 (4.20-5.40); Red Cell Distribution Width 15.3 % (11.5-17.5); White Blood Count 4.5 K/mm3 (4.8-10.8)
[2022-09-21 12:13] LABS: Chloride 106 mmol/L (98-107); Potassium 3.9 mmoL/L (3.5-5.1); Sodium 139 mmol/L (136-145)
[2022-09-21 12:16] LABS: Alanine Aminotransferase 22 U/L (12-78); Albumin/Globulin Ratio 1.4 (1.1-1.8); Alkaline Phosphatase 66 U/L (38-126); Anion Gap 9.9 mEq/L (5-15); Aspartate Amino Transferase 29 U/L (14-36); Bilirubin,Total 0.6 mg/dl (0.2-1.3); Blood Urea Nitrogen 21 mg/dl (7-17); Calcium 9.4 mg/dl (8.4-10.2); Carbon Dioxide 27 mmol/L (22.0-30.0); Creatinine Clearance Estimated 61 mL/min (50-200); Estimated Glomerular Filt Rate 54 ml/min (>60); GFR (African American) 65 ML/MIN (>60); Globulin 2.9 g/dL (1.3-3.2); Glucose 125 mg/dl (74-100); Total Protein,Serum 6.9 g/dl (6.3-8.2)
== END ==
PROVIDERS: PCP Family Medicine; Visit Provider Obstetrics & Gynecology
DX: Z45.2 Encounter for adjustment and management of vascular access device (principal); C57.00 Malignant neoplasm of unspecified fallopian tube; C54.9 Malignant neoplasm of corpus uteri, unspecified
CPT/HCPCS: 36591; 80053; 85025; J1642

== ENCOUNTER 2022-10-19 11:32 | Outpatient (CLI) | payer MEDICARE, OTHER, SELFPAY ==
[2022-10-19 11:39] VITALS: BMI 31.5
[2022-10-19 12:01] LABS: Basophils # 0.1 K/mm3 (0-0.2); Basophils % 1.4 % (0.1-2.0); Eosinophils # 0.2 K/mm3 (0.0-0.4); Eosinophils % 6.5 % (0.1-12.0); Hematocrit 40.3 % (37.0-47.0); Lymphocytes # 0.7 K/mm3 (0.7-4.5); Lymphocytes % 18.9 % (10-50); Mean Corpuscular HGB Conc 32.2 g/dL (31.8-35.4); Mean Corpuscular Hemoglobin 33.4 pg (27.0-31.2); Mean Corpuscular Volume 103.6 fl (81-99); Mean Platelet Volume 7.7 fl (7.4-10.4); Monocytes # 0.2 K/mm3 (0.1-1.0); Monocytes % 5.1 % (1.7-9.3); Neutrophils # 2.4 K/mm3 (1.8-7.8); Neutrophils % 68.1 % (37.0-80.0); Platelet Count 240 K/mm3 (142-424); Red Blood Count 3.89 M/mm3 (4.20-5.40); Red Cell Distribution Width 15.1 % (11.5-17.5); White Blood Count 3.6 K/mm3 (4.8-10.8)
[2022-10-19 12:23] LABS: Chloride 107 mmol/L (98-107)
[2022-10-19 12:24] LABS: Potassium 3.7 mmoL/L (3.5-5.1); Sodium 139 mmol/L (136-145)
[2022-10-19 12:27] LABS: Alanine Aminotransferase 19 U/L (12-78); Albumin Level 3.8 g/dl (3.5-5.0); Albumin/Globulin Ratio 1.4 (1.1-1.8); Alkaline Phosphatase 62 U/L (38-126); Anion Gap 8.7 mEq/L (5-15); Aspartate Amino Transferase 32 U/L (14-36); Bilirubin,Total 0.4 mg/dl (0.2-1.3); Blood Urea Nitrogen 20 mg/dl (7-17); Calcium 8.8 mg/dl (8.4-10.2); Carbon Dioxide 27 mmol/L (22.0-30.0); Creatinine Clearance Estimated 60 mL/min (50-200); Estimated Glomerular Filt Rate 70 ml/min (>60); GFR (African American) 84 ML/MIN (>60); Globulin 2.7 g/dL (1.3-3.2); Glucose 108 mg/dl (74-100); Total Protein,Serum 6.5 g/dl (6.3-8.2)
== END 2022-10-19 12:05 | disposition home or self-care (01) ==
LOC: INF 11:33
PROVIDERS: PCP Family Medicine; Visit Provider Obstetrics & Gynecology
DX: Z45.2 Encounter for adjustment and management of vascular access device (principal); C56.9 Malignant neoplasm of unspecified ovary
CPT/HCPCS: 36591; 80053; 85025; J1642

== ENCOUNTER 2022-11-23 11:25 | Outpatient (CLI) | payer MEDICARE, OTHER, SELFPAY ==
[2022-11-23 11:35] VITALS: BMI 31.5
[2022-11-23 11:55] LABS: Chloride 105 mmol/L (98-107); Potassium 4.1 mmoL/L (3.5-5.1); Sodium 139 mmol/L (136-145)
[2022-11-23 11:57] LABS: Blood Urea Nitrogen 23 mg/dl (7-17); Creatinine Clearance Estimated 60 mL/min (50-200); Estimated Glomerular Filt Rate 61 ml/min (>60); GFR (African American) 73 ML/MIN (>60)
[2022-11-23 11:58] LABS: Alanine Aminotransferase 18 U/L (12-78); Albumin Level 3.9 g/dl (3.5-5.0); Albumin/Globulin Ratio 1.3 (1.1-1.8); Alkaline Phosphatase 65 U/L (38-126); Anion Gap 11.1 mEq/L (5-15); Aspartate Amino Transferase 24 U/L (14-36); Bilirubin,Total 0.5 mg/dl (0.2-1.3); Calcium 9.6 mg/dl (8.4-10.2); Carbon Dioxide 27 mmol/L (22.0-30.0); Globulin 2.9 g/dL (1.3-3.2); Glucose 105 mg/dl (74-100); Total Protein,Serum 6.8 g/dl (6.3-8.2)
[2022-11-23 12:34] LABS: Basophils % 0.9 % (0.1-2.0); Eosinophils # 0.2 K/mm3 (0.0-0.4); Eosinophils % 5.1 % (0.1-12.0); Hematocrit 41.7 % (37.0-47.0); Hemoglobin 13.3 g/dL (12.2-16.2); Lymphocytes # 0.7 K/mm3 (0.7-4.5); Lymphocytes % 17.3 % (10-50); Mean Corpuscular HGB Conc 31.8 g/dL (31.8-35.4); Mean Corpuscular Hemoglobin 33.6 pg (27.0-31.2); Mean Corpuscular Volume 105.7 fl (81-99); Mean Platelet Volume 8.2 fl (7.4-10.4); Monocytes # 0.2 K/mm3 (0.1-1.0); Monocytes % 4.5 % (1.7-9.3); Neutrophils % 72.2 % (37.0-80.0); Platelet Count 262 K/mm3 (142-424); Red Blood Count 3.95 M/mm3 (4.20-5.40); Red Cell Distribution Width 14.8 % (11.5-17.5); White Blood Count 4.1 K/mm3 (4.8-10.8)
== END 2022-11-23 11:47 | disposition home or self-care (01) ==
LOC: INF 11:27
PROVIDERS: PCP Family Medicine; Visit Provider Obstetrics & Gynecology
DX: C57.00 Malignant neoplasm of unspecified fallopian tube (principal); Z45.2 Encounter for adjustment and management of vascular access device
CPT/HCPCS: 36591; 80053; 85025; J1642

== ENCOUNTER 2022-12-21 11:29 | Outpatient (CLI) | payer MEDICARE, OTHER, SELFPAY ==
[2022-12-21 11:33] VITALS: BMI 31.5
[2022-12-21 12:00] LABS: Basophils % 0.8 % (0.1-2.0); Eosinophils # 0.3 K/mm3 (0.0-0.4); Eosinophils % 10.5 % (0.1-12.0); Hematocrit 40.5 % (37.0-47.0); Hemoglobin 12.6 g/dL (12.2-16.2); Lymphocytes # 0.7 K/mm3 (0.7-4.5); Lymphocytes % 20.3 % (10-50); Mean Corpuscular HGB Conc 31.1 g/dL (31.8-35.4); Mean Corpuscular Hemoglobin 33.3 pg (27.0-31.2); Mean Corpuscular Volume 107.1 fl (81-99); Mean Platelet Volume 8.3 fl (7.4-10.4); Monocytes # 0.2 K/mm3 (0.1-1.0); Monocytes % 5.9 % (1.7-9.3); Neutrophils # 2.1 K/mm3 (1.8-7.8); Neutrophils % 62.6 % (37.0-80.0); Platelet Count 279 K/mm3 (142-424); Red Blood Count 3.78 M/mm3 (4.20-5.40); White Blood Count 3.3 K/mm3 (4.8-10.8)
[2022-12-21 12:04] LABS: Alanine Aminotransferase 23 U/L (12-78); Albumin Level 3.8 g/dl (3.5-5.0); Albumin/Globulin Ratio 1.4 (1.1-1.8); Alkaline Phosphatase 75 U/L (38-126); Anion Gap 16.9 mEq/L (5-15); Aspartate Amino Transferase 28 U/L (14-36); Bilirubin,Total 0.5 mg/dl (0.2-1.3); Blood Urea Nitrogen 26 mg/dl (7-17); Calcium 9.2 mg/dl (8.4-10.2); Carbon Dioxide 27 mmol/L (22.0-30.0); Chloride 97 mmol/L (98-107); Creatinine Clearance Estimated 60 mL/min (50-200); Estimated Glomerular Filt Rate 70 ml/min (>60); GFR (African American) 84 ML/MIN (>60); Globulin 2.7 g/dL (1.3-3.2); Glucose 127 mg/dl (74-100); Potassium 3.9 mmoL/L (3.5-5.1); Sodium 137 mmol/L (136-145); Total Protein,Serum 6.5 g/dl (6.3-8.2)
== END 2022-12-21 11:43 | disposition home or self-care (01) ==
LOC: INF 11:30
PROVIDERS: PCP Family Medicine; Visit Provider Obstetrics & Gynecology
DX: C57.00 Malignant neoplasm of unspecified fallopian tube (principal); Z45.2 Encounter for adjustment and management of vascular access device
CPT/HCPCS: 36591; 80053; 85025; J1642

== ENCOUNTER 2022-12-28 11:17 | Outpatient (CLI) | payer MEDICARE, OTHER, SELFPAY ==
[2022-12-28 11:27] VITALS: BMI 30.4
[2022-12-28 11:55] LABS: Potassium 3.7 mmoL/L (3.5-5.1); Sodium 138 mmol/L (136-145)
[2022-12-28 11:58] LABS: Blood Urea Nitrogen 18 mg/dl (7-17); Carbon Dioxide 29 mmol/L (22.0-30.0); Creatinine Clearance Estimated 58 mL/min (50-200); Estimated Glomerular Filt Rate 70 ml/min (>60); GFR (African American) 84 ML/MIN (>60)
[2022-12-28 11:59] LABS: Basophils # 0.1 K/mm3 (0-0.2); Basophils % 1.1 % (0.1-2.0); Calcium 9.7 mg/dl (8.4-10.2); Chol/HDL Ratio 3.4 (1-3.5); Cholesterol 189 mg/dl (140-200); Eosinophils # 0.3 K/mm3 (0.0-0.4); Eosinophils % 7.1 % (0.1-12.0); Glucose 101 mg/dl (74-100); HDL Cholesterol 55 mg/dl (40-60); Hematocrit 40.9 % (37.0-47.0); Hemoglobin 12.7 g/dL (12.2-16.2); Lymphocytes # 0.6 K/mm3 (0.7-4.5); Lymphocytes % 14.1 % (10-50); Mean Corpuscular HGB Conc 31.1 g/dL (31.8-35.4); Mean Corpuscular Hemoglobin 33.2 pg (27.0-31.2); Mean Corpuscular Volume 106.9 fl (81-99); Monocytes # 0.2 K/mm3 (0.1-1.0); Monocytes % 5.4 % (1.7-9.3); Neutrophils # 3.1 K/mm3 (1.8-7.8); Neutrophils % 72.4 % (37.0-80.0); Platelet Count 271 K/mm3 (142-424); Red Blood Count 3.82 M/mm3 (4.20-5.40); Red Cell Distribution Width 15.1 % (11.5-17.5); Triglycerides 112 mg/dl (30-150); VLDL Cholesterol 22 mg/dL (0-40); White Blood Count 4.3 K/mm3 (4.8-10.8)
[2022-12-28 12:04] LABS: Chloride 100 mmol/L (98-107); Sodium 138 mmol/L (136-145)
[2022-12-28 12:05] LABS: Potassium 3.7 mmoL/L (3.5-5.1)
[2022-12-28 12:07] LABS: Alanine Aminotransferase 22 U/L (12-78); Albumin/Globulin Ratio 1.4 (1.1-1.8); Alkaline Phosphatase 80 U/L (38-126); Anion Gap 12.7 mEq/L (5-15); Aspartate Amino Transferase 32 U/L (14-36); Bilirubin,Total 0.5 mg/dl (0.2-1.3); Blood Urea Nitrogen 18 mg/dl (7-17); Carbon Dioxide 29 mmol/L (22.0-30.0); Chloride 100 mmol/L (98-107); Creatinine Clearance Estimated 58 mL/min (50-200); Estimated Glomerular Filt Rate 70 ml/min (>60); GFR (African American) 84 ML/MIN (>60); Globulin 2.9 g/dL (1.3-3.2); Total Protein,Serum 6.9 g/dl (6.3-8.2)
[2022-12-28 12:08] LABS: Calcium 9.8 mg/dl (8.4-10.2); Glucose 102 mg/dl (74-100)
[2022-12-28 12:38] LABS: 25-OH Vitamin D, Total 53.6 ng/mL (30-100)
== END 2022-12-28 11:50 | disposition home or self-care (01) ==
LOC: INF 11:18
PROVIDERS: PCP Family Medicine; Visit Provider Obstetrics & Gynecology
DX: C57.00 Malignant neoplasm of unspecified fallopian tube (principal); E55.9 Vitamin D deficiency, unspecified; E78.5 Hyperlipidemia, unspecified; Z45.2 Encounter for adjustment and management of vascular access device
CPT/HCPCS: 36591; 80048; 80053; 80061; 82306; 85025; J1642

== ENCOUNTER 2023-02-08 11:28 | Outpatient (CLI) | payer MEDICARE, OTHER, SELFPAY ==
[2023-02-08 11:33] VITALS: BMI 30.9
[2023-02-08 12:01] LABS: Basophils % 0.5 % (0.1-2.0); Eosinophils # 0.6 K/mm3 (0.0-0.4); Eosinophils % 13.4 % (0.1-12.0); Hematocrit 38.9 % (37.0-47.0); Hemoglobin 11.9 g/dL (12.2-16.2); Lymphocytes # 0.7 K/mm3 (0.7-4.5); Lymphocytes % 17.7 % (10-50); Mean Corpuscular HGB Conc 30.6 g/dL (31.8-35.4); Mean Corpuscular Hemoglobin 32.1 pg (27.0-31.2); Mean Corpuscular Volume 105.2 fl (81-99); Mean Platelet Volume 8.1 fl (7.4-10.4); Monocytes # 0.3 K/mm3 (0.1-1.0); Monocytes % 6.2 % (1.7-9.3); Neutrophils # 2.6 K/mm3 (1.8-7.8); Neutrophils % 62.1 % (37.0-80.0); Platelet Count 256 K/mm3 (142-424); Red Cell Distribution Width 15.2 % (11.5-17.5); White Blood Count 4.2 K/mm3 (4.8-10.8)
[2023-02-08 12:24] LABS: Alanine Aminotransferase 21 U/L (12-78); Albumin Level 3.9 g/dl (3.5-5.0); Albumin/Globulin Ratio 1.3 (1.1-1.8); Alkaline Phosphatase 64 U/L (38-126); Anion Gap 10.2 mEq/L (5-15); Aspartate Amino Transferase 31 U/L (14-36); Bilirubin,Total 0.4 mg/dl (0.2-1.3); Blood Urea Nitrogen 27 mg/dl (7-17); Calcium 9.2 mg/dl (8.4-10.2); Carbon Dioxide 29 mmol/L (22.0-30.0); Chloride 104 mmol/L (98-107); Creatinine Clearance Estimated 59 mL/min (50-200); Estimated Glomerular Filt Rate 61 ml/min (>60); GFR (African American) 73 ML/MIN (>60); Globulin 2.9 g/dL (1.3-3.2); Glucose 92 mg/dl (74-100); Potassium 4.2 mmoL/L (3.5-5.1); Sodium 139 mmol/L (136-145); Total Protein,Serum 6.8 g/dl (6.3-8.2)
== END 2023-02-08 11:45 | disposition home or self-care (01) ==
LOC: INF 11:29
PROVIDERS: PCP Family Medicine; Visit Provider Obstetrics & Gynecology
DX: Z45.2 Encounter for adjustment and management of vascular access device; C57.00 Malignant neoplasm of unspecified fallopian tube
CPT/HCPCS: 36591; 80053; 85025; J1642

== ENCOUNTER 2023-03-08 15:44 | Emergency (ER) | payer MEDICARE, OTHER, SELFPAY ==
[2023-03-08 15:45] VITALS: BP 141/64; PULSE 87; RESP 18; TEMP 36.6; O2SAT 97; BMI 31.8
--- NOTE | 2023-03-08 16:03 | EXP.UTC ---
Discharge Plan Disposition Patient Disposition: Home, Self-Care Condition: Good Prescriptions Prescriptions: New polymyxin B sulf-trimethoprim [Polytrim] 10,000 unit- 1 mg/mL drops 1 drp Eye-Right Q3H 7 Days Qty: 10 0RF Rx Instructions: while awake; do not exceed 6 doses in 24 hours No Action anastrozole 1 MG tablet 1 mg PO DAILY potassium chloride [K-Tab] 10 MEQ tablet extended release 10 meq PO DAILY simvastatin 40 MG tablet 40 mg PO DAILY aspirin 81 MG tablet,chewable 81 mg PO DAILY furosemide 20 MG tablet 20 mg PO DAILY cholecalciferol (vitamin D3) 50,000 UNIT capsule 50,000 unit PO DAILY famotidine 20 MG tablet 20 mg PO BID ondansetron HCl 8 MG tablet 8 mg PO BID Rx Instructions: TAKE PRIOR TO CHEMO PILL BID prochlorperazine maleate 10 MG tablet 10 mg PO DAILY PRN (Reason: Nausea) cyclophosphamide 50 mg Tablet 50 mg PO HS levothyroxine [Synthroid] 75 mcg tablet 75 mcg PO DAILY Patient Comments: TAKE 1 TABLET BY MOUTH EVERY MORNING bisoprolol fumarate 5 mg Tablet 10 mg PO DAILY 30 Days Qty: 60 10RF nitroglycerin 0.4 mg tablet, sublingual 0.4 mg sublingual Q5M PRN (Reason: chest pain) Qty: 30 0RF Rx Instructions: do not exceed 3 doses per episode Referrals Follow up/Referrals: Flaquita Dorsey DO [Primary Care Provider] - See instructions Activity Restrictions/Add. Instructions Additional Instructions/Restrictions: Use the eye drops as directed. Strict hand washing in the house hold, because conjunctivitis is very contagious. Follow up with your regular doctor. GO TO THE ER FOR ANY WORSENING SYMPTOMS OR CONCERNS Clinical Impressions Clinical Impression: Conjunctivitis of right eye Instructions Patient Instructions: How to Instill Eye Drops, Conjunctivitis, DI for Conjunctivitis Discharge ED Provider: Ean Hernandez [facility] HPI General Stated complaint: RT eye irritation,redness Time Seen by Provider: 03/08/23 16:03 History of Present Illness Provider Complaint: She has had irritation, redness and yellowish discharge from her right eye for the past 5 days. She denies any injury or foreign body. Related Data Home Medications Medication Instructions Recorded Confirmed anastrozole 1 mg tablet 1 mg PO DAILY HORMONE 01/30/18 06/22/22 aspirin 81 mg chewable tablet 81 mg PO DAILY BLOOD THINNNER 01/30/18 06/22/22 cholecalciferol (vitamin D3) 1,250 50,000 unit PO DAILY BONES 01/30/18 06/22/22 mcg (50,000 unit) capsule furosemide 20 mg tablet 20 mg PO DAILY Hypertension 01/30/18 06/22/22 potassium chloride 10 mEq 10 meq PO DAILY Supplement 01/30/18 06/22/22 tablet,extended release (K-Tab) simvastatin 40 mg tablet 40 mg PO DAILY High cholesterol 01/30/18 06/22/22 prochlorperazine maleate 10 mg 10 mg PO DAILY PRN Nausea 07/30/18 06/22/22 tablet famotidine 20 mg tablet 20 mg PO BID Reflux/Acid reflux 09/09/19 06/22/22 ondansetron HCl 8 mg tablet 8 mg PO BID Nausea & vomiting 10/23/19 06/22/22 cyclophosphamide 50 mg tablet 50 mg PO HS chemo pill- cancer 06/22/22 06/22/22 levothyroxine 75 mcg tablet 75 mcg PO DAILY hypothyroidism 06/22/22 06/22/22 (Synthroid) Previous Rx's Medication Instructions Recorded bisoprolol fumarate 5 mg tablet 10 mg PO DAILY 30 days #60 tabs 06/23/22 nitroglycerin 0.4 mg sublingual 0.4 mg sublingual Q5M PRN chest 06/23/22 tablet pain #30 tabs polymyxin B sulfate 10,000 1 drp Eye-Right Q3H 7 days #10 mL 03/08/23 unit-trimethoprim 1 mg/mL eye drops (Polytrim) Allergies Allergy/AdvReac Type Severity Reaction Status Date / Time Sulfa (Sulfonamide Allergy Mild Verified 06/08/21 17:46 Antibiotics) morphine Allergy Verified 06/08/21 17:46 PFS PFS Disclaimer: The information contained in this section may have been updated after the patient was seen, as this information can be updated by other users. [facility]
[2023-03-08 16:39] VITALS: BP 141/64; PULSE 87; RESP 18; TEMP 36.6; O2SAT 97
== END 2023-03-08 16:40 | disposition home or self-care (01) ==
PROVIDERS: Emergency Provider Nurse Practitioner Family; PCP Family Medicine
DX: H10.31 Unspecified acute conjunctivitis, right eye (principal); I11.9 Hypertensive heart disease without heart failure; I25.10 Atherosclerotic heart disease of native coronary artery without angina pectoris; J44.9 Chronic obstructive pulmonary disease, unspecified; K21.9 Gastro-esophageal reflux disease without esophagitis; E78.5 Hyperlipidemia, unspecified; E03.9 Hypothyroidism, unspecified; D64.9 Anemia, unspecified; E05.90 Thyrotoxicosis, unspecified without thyrotoxic crisis or storm; M19.90 Unspecified osteoarthritis, unspecified site
CPT/HCPCS: 99212; 99214; G0463

== ENCOUNTER 2023-03-29 11:15 | Outpatient (CLI) | payer MEDICARE, OTHER, SELFPAY ==
[2023-03-29 11:19] VITALS: BMI 30.9
[2023-03-29 11:41] LABS: Basophils % 0.8 % (0.1-2.0); Eosinophils # 0.3 K/mm3 (0.0-0.4); Hematocrit 41.2 % (37.0-47.0); Hemoglobin 13.1 g/dL (12.2-16.2); Lymphocytes # 0.6 K/mm3 (0.7-4.5); Lymphocytes % 16.3 % (10-50); Mean Corpuscular HGB Conc 31.8 g/dL (31.8-35.4); Mean Corpuscular Hemoglobin 33.6 pg (27.0-31.2); Mean Corpuscular Volume 105.5 fl (81-99); Mean Platelet Volume 7.9 fl (7.4-10.4); Monocytes # 0.2 K/mm3 (0.1-1.0); Monocytes % 4.9 % (1.7-9.3); Neutrophils # 2.4 K/mm3 (1.8-7.8); Platelet Count 259 K/mm3 (142-424); Red Cell Distribution Width 15.1 % (11.5-17.5); White Blood Count 3.5 K/mm3 (4.8-10.8)
[2023-03-29 11:54] LABS: Alanine Aminotransferase 22 U/L (12-78); Albumin Level 3.9 g/dl (3.5-5.0); Albumin/Globulin Ratio 1.3 (1.1-1.8); Alkaline Phosphatase 59 U/L (38-126); Anion Gap 13.5 mEq/L (5-15); Aspartate Amino Transferase 33 U/L (14-36); Bilirubin,Total 0.3 mg/dl (0.2-1.3); Blood Urea Nitrogen 19 mg/dl (7-17); Calcium 9.3 mg/dl (8.4-10.2); Carbon Dioxide 25 mmol/L (22.0-30.0); Chloride 103 mmol/L (98-107); Creatinine Clearance Estimated 59 mL/min (50-200); Estimated Glomerular Filt Rate 70 ml/min (>60); GFR (African American) 84 ML/MIN (>60); Glucose 110 mg/dl (74-100); Potassium 3.5 mmoL/L (3.5-5.1); Sodium 138 mmol/L (136-145); Total Protein,Serum 6.9 g/dl (6.3-8.2)
== END 2023-03-29 11:35 | disposition home or self-care (01) ==
LOC: INF 11:16
PROVIDERS: Obstetrics & Gynecology; PCP Family Medicine; Visit Provider Family Medicine
DX: Z45.2 Encounter for adjustment and management of vascular access device; C57.00 Malignant neoplasm of unspecified fallopian tube
CPT/HCPCS: 36591; 80053; 85025; J1642

== ENCOUNTER 2023-04-05 11:24 | Outpatient (CLI) | payer MEDICARE, OTHER, SELFPAY ==
[2023-04-05 11:30] VITALS: BMI 30.9
[2023-04-05 11:50] LABS: Basophils % 0.8 % (0.1-2.0); Eosinophils # 0.3 K/mm3 (0.0-0.4); Eosinophils % 6.4 % (0.1-12.0); Hematocrit 40.9 % (37.0-47.0); Hemoglobin 13.1 g/dL (12.2-16.2); Lymphocytes # 0.6 K/mm3 (0.7-4.5); Lymphocytes % 13.8 % (10-50); Mean Corpuscular Hemoglobin 33.3 pg (27.0-31.2); Mean Corpuscular Volume 104.2 fl (81-99); Mean Platelet Volume 7.6 fl (7.4-10.4); Monocytes # 0.2 K/mm3 (0.1-1.0); Monocytes % 4.4 % (1.7-9.3); Neutrophils # 3.1 K/mm3 (1.8-7.8); Neutrophils % 74.5 % (37.0-80.0); Platelet Count 225 K/mm3 (142-424); Red Blood Count 3.92 M/mm3 (4.20-5.40); Red Cell Distribution Width 14.8 % (11.5-17.5); White Blood Count 4.1 K/mm3 (4.8-10.8)
[2023-04-05 11:57] LABS: Chloride 105 mmol/L (98-107); Potassium 3.9 mmoL/L (3.5-5.1); Sodium 140 mmol/L (136-145)
[2023-04-05 11:59] LABS: Blood Urea Nitrogen 21 mg/dl (7-17)
[2023-04-05 12:00] LABS: Alanine Aminotransferase 21 U/L (12-78); Albumin Level 3.7 g/dl (3.5-5.0); Albumin/Globulin Ratio 1.2 (1.1-1.8); Alkaline Phosphatase 62 U/L (38-126); Anion Gap 11.9 mEq/L (5-15); Aspartate Amino Transferase 27 U/L (14-36); Bilirubin,Total 0.4 mg/dl (0.2-1.3); Carbon Dioxide 27 mmol/L (22.0-30.0); Creatinine Clearance Estimated 59 mL/min (50-200); Estimated Glomerular Filt Rate 61 ml/min (>60); GFR (African American) 73 ML/MIN (>60); Globulin 3.1 g/dL (1.3-3.2); Total Protein,Serum 6.8 g/dl (6.3-8.2)
[2023-04-05 12:01] LABS: Calcium 9.6 mg/dl (8.4-10.2); Glucose 97 mg/dl (74-100)
== END 2023-04-05 11:56 | disposition home or self-care (01) ==
PROVIDERS: PCP Family Medicine; Visit Provider Obstetrics & Gynecology
DX: C57.00 Malignant neoplasm of unspecified fallopian tube (principal); Z45.2 Encounter for adjustment and management of vascular access device
CPT/HCPCS: 36591; 80053; 85025; J1642

== ENCOUNTER 2023-04-19 11:08 | Outpatient (CLI) | payer MEDICARE, OTHER, SELFPAY ==
[2023-04-19 11:15] VITALS: BMI 30.9
[2023-04-19 11:46] LABS: Chloride 107 mmol/L (98-107); Potassium 3.8 mmoL/L (3.5-5.1); Sodium 142 mmol/L (136-145)
[2023-04-19 11:49] LABS: Alanine Aminotransferase 23 U/L (12-78); Albumin Level 3.8 g/dl (3.5-5.0); Albumin/Globulin Ratio 1.3 (1.1-1.8); Alkaline Phosphatase 54 U/L (38-126); Anion Gap 11.8 mEq/L (5-15); Aspartate Amino Transferase 30 U/L (14-36); Bilirubin,Total 0.3 mg/dl (0.2-1.3); Blood Urea Nitrogen 20 mg/dl (7-17); Carbon Dioxide 27 mmol/L (22.0-30.0); Creatinine Clearance Estimated 59 mL/min (50-200); Estimated Glomerular Filt Rate 61 ml/min (>60); GFR (African American) 73 ML/MIN (>60); Globulin 2.9 g/dL (1.3-3.2); Total Protein,Serum 6.7 g/dl (6.3-8.2)
[2023-04-19 11:50] LABS: Calcium 9.1 mg/dl (8.4-10.2); Glucose 115 mg/dl (74-100)
[2023-04-19 12:26] LABS: Basophils % 0.5 % (0.1-2.0); Eosinophils # 0.4 K/mm3 (0.0-0.4); Eosinophils % 8.3 % (0.1-12.0); Hematocrit 43.7 % (37.0-47.0); Hemoglobin 13.5 g/dL (12.2-16.2); Lymphocytes # 0.5 K/mm3 (0.7-4.5); Lymphocytes % 10.6 % (10-50); Mean Corpuscular Hemoglobin 32.2 pg (27.0-31.2); Mean Corpuscular Volume 104.2 fl (81-99); Mean Platelet Volume 7.8 fl (7.4-10.4); Monocytes # 0.2 K/mm3 (0.1-1.0); Monocytes % 4.3 % (1.7-9.3); Neutrophils # 3.3 K/mm3 (1.8-7.8); Neutrophils % 76.4 % (37.0-80.0); Platelet Count 223 K/mm3 (142-424); Red Blood Count 4.19 M/mm3 (4.20-5.40); Red Cell Distribution Width 15.1 % (11.5-17.5); White Blood Count 4.4 K/mm3 (4.8-10.8)
== END 2023-04-19 11:35 | disposition home or self-care (01) ==
LOC: INF 11:09
PROVIDERS: Visit Provider Obstetrics & Gynecology
DX: C57.00 Malignant neoplasm of unspecified fallopian tube (principal); Z45.2 Encounter for adjustment and management of vascular access device
CPT/HCPCS: 36591; 80053; 85025; J1642

== ENCOUNTER 2023-04-26 11:39 | Outpatient (CLI) | payer MEDICARE, OTHER, SELFPAY ==
[2023-04-26 11:46] VITALS: BMI 30.9
[2023-04-26 12:12] LABS: Basophils % 0.6 % (0.1-2.0); Eosinophils # 0.5 K/mm3 (0.0-0.4); Hematocrit 43.4 % (37.0-47.0); Hemoglobin 13.2 g/dL (12.2-16.2); Lymphocytes # 0.7 K/mm3 (0.7-4.5); Lymphocytes % 17.5 % (10-50); Mean Corpuscular HGB Conc 30.4 g/dL (31.8-35.4); Mean Corpuscular Hemoglobin 32.6 pg (27.0-31.2); Mean Corpuscular Volume 107.3 fl (81-99); Mean Platelet Volume 6.9 fl (7.4-10.4); Monocytes # 0.1 K/mm3 (0.1-1.0); Monocytes % 3.4 % (1.7-9.3); Neutrophils # 2.5 K/mm3 (1.8-7.8); Neutrophils % 66.6 % (37.0-80.0); Platelet Count 234 K/mm3 (142-424); Red Blood Count 4.04 M/mm3 (4.20-5.40); Red Cell Distribution Width 15.1 % (11.5-17.5); White Blood Count 3.8 K/mm3 (4.8-10.8)
[2023-04-26 12:41] LABS: Alanine Aminotransferase 21 U/L (12-78); Albumin Level 4.1 g/dl (3.5-5.0); Albumin/Globulin Ratio 1.3 (1.1-1.8); Alkaline Phosphatase 56 U/L (38-126); Anion Gap 14.8 mEq/L (5-15); Aspartate Amino Transferase 31 U/L (14-36); Bilirubin,Total 0.5 mg/dl (0.2-1.3); Blood Urea Nitrogen 24 mg/dl (7-17); Calcium 9.3 mg/dl (8.4-10.2); Carbon Dioxide 26 mmol/L (22.0-30.0); Chloride 104 mmol/L (98-107); Creatinine Clearance Estimated 59 mL/min (50-200); Estimated Glomerular Filt Rate 61 ml/min (>60); GFR (African American) 73 ML/MIN (>60); Globulin 3.2 g/dL (1.3-3.2); Glucose 98 mg/dl (74-100); Potassium 3.8 mmoL/L (3.5-5.1); Sodium 141 mmol/L (136-145); Total Protein,Serum 7.3 g/dl (6.3-8.2)
== END 2023-04-26 12:00 | disposition home or self-care (01) ==
LOC: INF 11:40
PROVIDERS: PCP Family Medicine; Visit Provider Obstetrics & Gynecology
DX: C56.1 Malignant neoplasm of right ovary (principal); C57.00 Malignant neoplasm of unspecified fallopian tube; Z45.2 Encounter for adjustment and management of vascular access device
CPT/HCPCS: 36591; 80053; 85025; 96523; J1642

== ENCOUNTER 2023-05-01 14:01 | Emergency (ER) | payer MEDICARE, OTHER, SELFPAY ==
[2023-05-01] VITALS (10 sets, daily range): BP systolic 111–143; BP diastolic 68–88; PULSE 83–100; RESP 18–21; TEMP 36.7–36.8; O2SAT 93–97; BMI 30.1
--- NOTE | 2023-05-01 14:07 | ECG_ITS ---
APPROVED REPORT Exam: Resting ECG HR:93 bpm ECG Measurements Heart Rate 93 AXES [place] 162 P 76 QRSd 82 QRS 19 QT 349 T 81 QTc 400 Conclusion SINUS RHYTHM WITH OCCASIONAL ECTOPIC PREMATURE COMPLEXES LOW QRS VOLTAGE IN PRECORDIAL LEADS with late R wave progression BORDERLINE ECG UNCONFIRMED REPORT Electronically signed by : Ludin Hughes MD 05/01/2023 17:05:02
--- NOTE | 2023-05-01 14:15 | XR_ITS ---
FINAL REPORT CLINICAL HISTORY: Precordial chest pain FINDINGS: A single portable view of the chest was obtained. A right chest port is present. The heart size and pulmonary vascularity are within normal limits. The mediastinum is within normal limits. No acute pulmonary abnormality is identified. The bony thorax is intact. IMPRESSION: No active cardiopulmonary disease. Reviewed, Interpreted and Dictated by Reuben Ruiz III, MD Transcribed by Cynthia Chiu Authenticated and . [facility]
--- NOTE | 2023-05-01 14:54 | HMH.EDGENADL ---
Discharge Plan Disposition Patient Disposition: Home, Self-Care Condition: Good Prescriptions Prescriptions: No Action anastrozole 1 MG tablet 1 mg PO DAILY potassium chloride [K-Tab] 10 MEQ tablet extended release 10 meq PO DAILY simvastatin 40 MG tablet 40 mg PO DAILY aspirin 81 MG tablet,chewable 81 mg PO DAILY furosemide 20 MG tablet 20 mg PO DAILY cholecalciferol (vitamin D3) 50,000 UNIT capsule 50,000 unit PO DAILY famotidine 20 MG tablet 20 mg PO BID ondansetron HCl 8 MG tablet 8 mg PO BID Rx Instructions: TAKE PRIOR TO CHEMO PILL BID prochlorperazine maleate 10 MG tablet 10 mg PO DAILY PRN (Reason: Nausea) cyclophosphamide 50 mg Tablet 50 mg PO HS levothyroxine [Synthroid] 75 mcg tablet 75 mcg PO DAILY Patient Comments: TAKE 1 TABLET BY MOUTH EVERY MORNING bisoprolol fumarate 5 mg Tablet 10 mg PO DAILY 30 Days Qty: 60 10RF nitroglycerin 0.4 mg tablet, sublingual 0.4 mg sublingual Q5M PRN (Reason: chest pain) Qty: 30 0RF Rx Instructions: do not exceed 3 doses per episode polymyxin B sulf-trimethoprim [Polytrim] 10,000 unit- 1 mg/mL drops 1 drp Eye-Right Q3H 7 Days Qty: 10 0RF Rx Instructions: while awake; do not exceed 6 doses in 24 hours Referrals Follow up/Referrals: Provider,ReferralMD [Referring] - See instructions Activity Restrictions/Add. Instructions Additional Instructions/Restrictions: Please follow-up closely with your primary care provider and operations support manager. Return to the emergency department for any new or worsening symptoms. Clinical Impressions Clinical Impression: Chest pain Instructions Patient Instructions: DI for Atypical Chest Pain Discharge ED Provider: Shy Adorno General Adult HPI <Parker Arndt MD - Last Filed: 05/01/23 15:11> General Chief complaint: Chest Pain Stated complaint: chest pain Time Seen by Provider: 05/01/23 14:11 Mode of Arrival: Family Vehicle Source of Information: Patient Limitations: No Limitations Description of Symptoms (Recalled from ER Triage Doc. by RN): Pt c/o burning that began in her epigastric area and went up to her throat and left upper arm. States The burning has dissipated as she arived here. SHe also c/o nausea and almost vomited. Pt reports she has had similar episodes 3 other times and was worked up by cardiology 2x and was I guess ok . She recevied IV Chemo d/t ovarian cancer hx that comes back . She denies any SOA, dizziness, or chills. History of Present Illness HPI narrative: 77-year-old female with history of hypertension, hyperlipidemia, hypothyroidism, ovarian cancer currently on chemotherapy (bevacizumab and Cytoxan)Presenting with chest pain. Patient states that she was on her way to for infusion therapy in the car when she started having chest pain. It was left-sided, substernal, more of a pressure. Caused her to feel claustrophobic to the point where she had to unhook her bra feeling short of breath. Got nauseated, did not vomit, got diaphoretic as well. No neurologic deficits. Came straight to [facility] for further evaluation. Related Data Home Medications Medication Instructions Recorded Confirmed anastrozole 1 mg tablet 1 mg PO DAILY HORMONE 01/30/18 06/22/22 aspirin 81 mg chewable tablet 81 mg PO DAILY BLOOD THINNNER 01/30/18 06/22/22 cholecalciferol (vitamin D3) 1,250 50,000 unit PO DAILY BONES 01/30/18 06/22/22 mcg (50,000 unit) capsule furosemide 20 mg tablet 20 mg PO DAILY Hypertension 01/30/18 06/22/22 potassium chloride 10 mEq 10 meq PO DAILY Supplement 01/30/18 06/22/22 tablet,extended release (K-Tab) simvastatin 40 mg tablet 40 mg PO DAILY High cholesterol 01/30/18 06/22/22 prochlorperazine maleate 10 mg 10 mg PO DAILY PRN Nausea 07/30/18 06/22/22 tablet famotidine 20 mg tablet 20 mg PO BID Reflux/Acid reflux 09/09/19 06/22/22 ondansetron HCl 8 mg tablet 8 mg PO
[2023-05-01 15:02] LABS: Chloride 104 mmol/L (98-107)
[2023-05-01 15:03] LABS: Potassium 3.6 mmoL/L (3.5-5.1); Sodium 139 mmol/L (136-145)
[2023-05-01 15:05] LABS: Basophils % 0.3 % (0.1-2.0); Eosinophils # 0.5 K/mm3 (0.0-0.4); Eosinophils % 7.8 % (0.1-12.0); Hemoglobin 13.9 g/dL (12.2-16.2); Lymphocytes # 0.8 K/mm3 (0.7-4.5); Lymphocytes % 13.1 % (10-50); Mean Corpuscular HGB Conc 31.6 g/dL (31.8-35.4); Mean Corpuscular Hemoglobin 33.2 pg (27.0-31.2); Mean Corpuscular Volume 105.1 fl (81-99); Mean Platelet Volume 8.1 fl (7.4-10.4); Monocytes # 0.3 K/mm3 (0.1-1.0); Monocytes % 4.8 % (1.7-9.3); Neutrophils # 4.2 K/mm3 (1.8-7.8); Neutrophils % 73.9 % (37.0-80.0); Platelet Count 219 K/mm3 (142-424); Red Blood Count 4.19 M/mm3 (4.20-5.40); Red Cell Distribution Width 15.5 % (11.5-17.5); White Blood Count 5.7 K/mm3 (4.8-10.8)
[2023-05-01 15:06] LABS: Alanine Aminotransferase 46 U/L (12-78); Albumin Level 3.9 g/dl (3.5-5.0); Albumin/Globulin Ratio 1.3 (1.1-1.8); Alkaline Phosphatase 88 U/L (38-126); Anion Gap 10.6 mEq/L (5-15); Aspartate Amino Transferase 127 U/L (14-36); Bilirubin,Total 0.9 mg/dl (0.2-1.3); Blood Urea Nitrogen 22 mg/dl (7-17); Calcium 9.3 mg/dl (8.4-10.2); Carbon Dioxide 28 mmol/L (22.0-30.0); Creatinine Clearance Estimated 57 mL/min (50-200); Estimated Glomerular Filt Rate 54 ml/min (>60); GFR (African American) 65 ML/MIN (>60); Glucose 90 mg/dl (74-100); Lipase 119 U/L (23-300); Total Protein,Serum 6.9 g/dl (6.3-8.2)
[2023-05-01 15:21] LABS: Troponin I < 0.01 ng/ml (0.00-0.034)
--- NOTE | 2023-05-01 16:19 | ECG_ITS ---
APPROVED REPORT Exam: Resting ECG HR:82 bpm ECG Measurements Heart Rate 82 AXES [place] 169 P 76 QRSd 83 QRS 47 QT 361 T 90 QTc 399 Conclusion SINUS RHYTHM LOW QRS VOLTAGE IN PRECORDIAL LEADS [QRS DEFLECTION < 1.0 mV IN CHEST LEADS] MINIMAL ST DEPRESSION [0.025+ mV ST DEPRESSION] BORDERLINE ECG UNCONFIRMED REPORT Electronically signed by : Ludin Hughes MD 05/01/2023 17:04:25
--- NOTE | 2023-05-01 17:54 | PC.NURSE ---
Pt resting, waiting on trop to be drawn,
[2023-05-01 18:03] LABS: Troponin I < 0.01 ng/ml (0.00-0.034)
--- NOTE | 2023-05-01 18:28 | PC.NURSE ---
DR FLYNN AT BEDSIDE TO UPDATE PT
== END 2023-05-01 18:40 | disposition home or self-care (01) ==
PROVIDERS: Emergency Medicine; Emergency Provider Emergency Medicine; PCP Family Medicine
DX: R07.9 Chest pain, unspecified (principal); R10.13 Epigastric pain; R07.0 Pain in throat; M79.602 Pain in left arm; R11.0 Nausea; I10 Essential (primary) hypertension; E78.5 Hyperlipidemia, unspecified; E03.9 Hypothyroidism, unspecified; K21.9 Gastro-esophageal reflux disease without esophagitis; J44.9 Chronic obstructive pulmonary disease, unspecified; I25.10 Atherosclerotic heart disease of native coronary artery without angina pectoris; Z85.3 Personal history of malignant neoplasm of breast; Z85.43 Personal history of malignant neoplasm of ovary
CPT/HCPCS: 71045; 80053; 83690; 83880; 84484; 85025; 93005; 96374; 99285; J1642

== ENCOUNTER 2023-05-03 11:30 | Outpatient (CLI) | payer MEDICARE, OTHER, SELFPAY ==
[2023-05-03 11:35] VITALS: BMI 30.9
[2023-05-03 11:56] LABS: Basophils % 1.1 % (0.1-2.0); Eosinophils # 0.5 K/mm3 (0.0-0.4); Eosinophils % 13.8 % (0.1-12.0); Hematocrit 40.8 % (37.0-47.0); Hemoglobin 12.9 g/dL (12.2-16.2); Lymphocytes # 0.6 K/mm3 (0.7-4.5); Lymphocytes % 16.7 % (10-50); Mean Corpuscular HGB Conc 31.6 g/dL (31.8-35.4); Mean Corpuscular Hemoglobin 33.1 pg (27.0-31.2); Mean Platelet Volume 8.9 fl (7.4-10.4); Monocytes # 0.2 K/mm3 (0.1-1.0); Monocytes % 4.8 % (1.7-9.3); Neutrophils # 2.4 K/mm3 (1.8-7.8); Neutrophils % 63.6 % (37.0-80.0); Platelet Count 247 K/mm3 (142-424); Red Blood Count 3.88 M/mm3 (4.20-5.40); Red Cell Distribution Width 15.5 % (11.5-17.5); White Blood Count 3.8 K/mm3 (4.8-10.8)
[2023-05-03 12:06] LABS: Chloride 108 mmol/L (98-107); Sodium 140 mmol/L (136-145)
[2023-05-03 12:09] LABS: Alanine Aminotransferase 49 U/L (12-78); Albumin Level 3.6 g/dl (3.5-5.0); Albumin/Globulin Ratio 1.2 (1.1-1.8); Alkaline Phosphatase 83 U/L (38-126); Aspartate Amino Transferase 42 U/L (14-36); Bilirubin,Total 0.4 mg/dl (0.2-1.3); Blood Urea Nitrogen 19 mg/dl (7-17); Carbon Dioxide 27 mmol/L (22.0-30.0); Creatinine Clearance Estimated 59 mL/min (50-200); Estimated Glomerular Filt Rate 70 ml/min (>60); GFR (African American) 84 ML/MIN (>60); Globulin 2.9 g/dL (1.3-3.2); Total Protein,Serum 6.5 g/dl (6.3-8.2)
[2023-05-03 12:10] LABS: Calcium 9.1 mg/dl (8.4-10.2); Glucose 101 mg/dl (74-100)
== END 2023-05-03 11:45 | disposition home or self-care (01) ==
LOC: INF 11:31
PROVIDERS: PCP Family Medicine; Visit Provider Obstetrics & Gynecology
DX: C57.00 Malignant neoplasm of unspecified fallopian tube (principal); Z45.2 Encounter for adjustment and management of vascular access device
CPT/HCPCS: 36591; 80053; 85025; J1642

== ENCOUNTER 2023-05-17 11:15 | Outpatient (CLI) | payer MEDICARE, OTHER, SELFPAY ==
[2023-05-17 11:20] VITALS: BMI 30.9
[2023-05-17 11:37] LABS: Chloride 104 mmol/L (98-107)
[2023-05-17 11:38] LABS: Sodium 138 mmol/L (136-145)
[2023-05-17 11:40] LABS: Alanine Aminotransferase 21 U/L (12-78); Albumin Level 3.9 g/dl (3.5-5.0); Albumin/Globulin Ratio 1.3 (1.1-1.8); Alkaline Phosphatase 64 U/L (38-126); Aspartate Amino Transferase 33 U/L (14-36); Bilirubin,Total 0.6 mg/dl (0.2-1.3); Blood Urea Nitrogen 23 mg/dl (7-17); Calcium 8.8 mg/dl (8.4-10.2); Carbon Dioxide 25 mmol/L (22.0-30.0); Creatinine Clearance Estimated 59 mL/min (50-200); Estimated Glomerular Filt Rate 70 ml/min (>60); GFR (African American) 84 ML/MIN (>60); Globulin 2.9 g/dL (1.3-3.2); Glucose 99 mg/dl (74-100); Total Protein,Serum 6.8 g/dl (6.3-8.2)
[2023-05-17 11:48] LABS: Eosinophils # 0.3 K/mm3 (0.0-0.4); Eosinophils % 9.4 % (0.1-12.0); Hemoglobin 13.2 g/dL (12.2-16.2); Lymphocytes # 0.7 K/mm3 (0.7-4.5); Lymphocytes % 18.9 % (10-50); Mean Corpuscular HGB Conc 33.1 g/dL (31.8-35.4); Mean Corpuscular Hemoglobin 35.6 pg (27.0-31.2); Mean Corpuscular Volume 107.6 fl (81-99); Mean Platelet Volume 7.7 fl (7.4-10.4); Monocytes # 0.2 K/mm3 (0.1-1.0); Monocytes % 5.1 % (1.7-9.3); Neutrophils # 2.3 K/mm3 (1.8-7.8); Neutrophils % 65.6 % (37.0-80.0); Platelet Count 200 K/mm3 (142-424); Red Blood Count 3.72 M/mm3 (4.20-5.40); Red Cell Distribution Width 15.7 % (11.5-17.5); White Blood Count 3.5 K/mm3 (4.8-10.8)
== END 2023-05-17 11:32 | disposition home or self-care (01) ==
LOC: INF 11:15
PROVIDERS: PCP Family Medicine; Visit Provider Obstetrics & Gynecology
DX: Z45.2 Encounter for adjustment and management of vascular access device; C57.00 Malignant neoplasm of unspecified fallopian tube
CPT/HCPCS: 36591; 80053; 85025; J1642

== ENCOUNTER 2023-05-24 13:49 | Outpatient (CLI) | payer MEDICARE, OTHER, SELFPAY ==
[2023-05-24 13:53] VITALS: BMI 31.5
[2023-05-25 08:59] LABS: Chloride 103 mmol/L (98-107); Sodium 138 mmol/L (136-145)
[2023-05-25 09:00] LABS: Potassium 4.2 mmoL/L (3.5-5.1)
[2023-05-25 09:01] LABS: Basophils % 0.8 % (0.1-2.0); Eosinophils # 0.2 K/mm3 (0.0-0.4); Eosinophils % 5.9 % (0.1-12.0); Hematocrit 39.7 % (37.0-47.0); Hemoglobin 13.1 g/dL (12.2-16.2); Lymphocytes # 0.7 K/mm3 (0.7-4.5); Lymphocytes % 18.6 % (10-50); Mean Corpuscular Hemoglobin 36.2 pg (27.0-31.2); Mean Corpuscular Volume 109.7 fl (81-99); Mean Platelet Volume 9.9 fl (7.4-10.4); Monocytes # 0.3 K/mm3 (0.1-1.0); Monocytes % 6.5 % (1.7-9.3); Neutrophils # 2.6 K/mm3 (1.8-7.8); Neutrophils % 68.1 % (37.0-80.0); Platelet Count 220 K/mm3 (142-424); Red Blood Count 3.62 M/mm3 (4.20-5.40); Red Cell Distribution Width 15.6 % (11.5-17.5); White Blood Count 3.9 K/mm3 (4.8-10.8)
[2023-05-25 09:02] LABS: Alanine Aminotransferase 23 U/L (12-78); Albumin/Globulin Ratio 1.4 (1.1-1.8); Alkaline Phosphatase 59 U/L (38-126); Anion Gap 11.2 mEq/L (5-15); Aspartate Amino Transferase 36 U/L (14-36); Bilirubin,Total 0.5 mg/dl (0.2-1.3); Blood Urea Nitrogen 27 mg/dl (7-17); Calcium 9.3 mg/dl (8.4-10.2); Carbon Dioxide 28 mmol/L (22.0-30.0); Creatinine Clearance Estimated 60 mL/min (50-200); Estimated Glomerular Filt Rate 61 ml/min (>60); GFR (African American) 73 ML/MIN (>60); Globulin 2.8 g/dL (1.3-3.2); Glucose 155 mg/dl (74-100); Total Protein,Serum 6.8 g/dl (6.3-8.2)
== END 2023-05-24 14:02 ==
LOC: INF 13:49
PROVIDERS: PCP Family Medicine; Visit Provider Obstetrics & Gynecology
DX: C57.00 Malignant neoplasm of unspecified fallopian tube (principal); Z45.2 Encounter for adjustment and management of vascular access device
CPT/HCPCS: 36591; 80053; 85025; J1642

== ENCOUNTER 2023-06-07 11:20 | Outpatient (CLI) | payer MEDICARE, OTHER, SELFPAY ==
[2023-06-07 11:26] VITALS: BMI 30.9
[2023-06-07 11:43] LABS: Basophils % 0.9 % (0.1-2.0); Eosinophils # 0.4 K/mm3 (0.0-0.4); Eosinophils % 10.6 % (0.1-12.0); Hematocrit 41.1 % (37.0-47.0); Hemoglobin 13.6 g/dL (12.2-16.2); Lymphocytes # 0.7 K/mm3 (0.7-4.5); Lymphocytes % 18.3 % (10-50); Mean Corpuscular HGB Conc 33.1 g/dL (31.8-35.4); Mean Corpuscular Hemoglobin 35.9 pg (27.0-31.2); Mean Corpuscular Volume 108.4 fl (81-99); Mean Platelet Volume 8.3 fl (7.4-10.4); Monocytes # 0.2 K/mm3 (0.1-1.0); Monocytes % 5.6 % (1.7-9.3); Neutrophils # 2.4 K/mm3 (1.8-7.8); Neutrophils % 64.6 % (37.0-80.0); Platelet Count 224 K/mm3 (142-424); Red Blood Count 3.79 M/mm3 (4.20-5.40); Red Cell Distribution Width 15.4 % (11.5-17.5); White Blood Count 3.7 K/mm3 (4.8-10.8)
[2023-06-07 11:54] LABS: Chloride 104 mmol/L (98-107)
[2023-06-07 11:55] LABS: Potassium 3.9 mmoL/L (3.5-5.1); Sodium 137 mmol/L (136-145)
[2023-06-07 11:57] LABS: Alanine Aminotransferase 28 U/L (12-78); Aspartate Amino Transferase 34 U/L (14-36); Blood Urea Nitrogen 26 mg/dl (7-17); Creatinine Clearance Estimated 59 mL/min (50-200); Estimated Glomerular Filt Rate 61 ml/min (>60); GFR (African American) 73 ML/MIN (>60)
[2023-06-07 11:58] LABS: Albumin Level 4.2 g/dl (3.5-5.0); Albumin/Globulin Ratio 1.4 (1.1-1.8); Alkaline Phosphatase 65 U/L (38-126); Anion Gap 9.9 mEq/L (5-15); Bilirubin,Total 0.5 mg/dl (0.2-1.3); Calcium 8.9 mg/dl (8.4-10.2); Carbon Dioxide 27 mmol/L (22.0-30.0); Glucose 99 mg/dl (74-100); Total Protein,Serum 7.2 g/dl (6.3-8.2)
== END 2023-06-07 11:40 | disposition home or self-care (01) ==
PROVIDERS: PCP Family Medicine; Visit Provider Obstetrics & Gynecology
DX: C57.00 Malignant neoplasm of unspecified fallopian tube (principal); Z45.2 Encounter for adjustment and management of vascular access device
CPT/HCPCS: 36591; 80053; 85025; J1642

== ENCOUNTER 2023-06-14 11:13 | Outpatient (CLI) | payer MEDICARE, OTHER, SELFPAY ==
[2023-06-14 12:37] VITALS: BMI 31.5
[2023-06-14 12:45] LABS: Basophils % 0.8 % (0.1-2.0); Eosinophils # 0.4 K/mm3 (0.0-0.4); Eosinophils % 9.3 % (0.1-12.0); Hematocrit 41.2 % (37.0-47.0); Hemoglobin 13.5 g/dL (12.2-16.2); Lymphocytes # 0.7 K/mm3 (0.7-4.5); Lymphocytes % 19.1 % (10-50); Mean Corpuscular HGB Conc 32.9 g/dL (31.8-35.4); Mean Corpuscular Hemoglobin 35.8 pg (27.0-31.2); Mean Corpuscular Volume 108.9 fl (81-99); Mean Platelet Volume 7.9 fl (7.4-10.4); Monocytes # 0.2 K/mm3 (0.1-1.0); Monocytes % 4.6 % (1.7-9.3); Neutrophils # 2.5 K/mm3 (1.8-7.8); Neutrophils % 66.1 % (37.0-80.0); Platelet Count 223 K/mm3 (142-424); Red Blood Count 3.78 M/mm3 (4.20-5.40); Red Cell Distribution Width 15.4 % (11.5-17.5); White Blood Count 3.8 K/mm3 (4.8-10.8)
[2023-06-14 12:49] LABS: Chloride 103 mmol/L (98-107); Sodium 138 mmol/L (136-145)
[2023-06-14 12:52] LABS: Alanine Aminotransferase 64 U/L (12-78); Albumin Level 4.1 g/dl (3.5-5.0); Albumin/Globulin Ratio 1.4 (1.1-1.8); Alkaline Phosphatase 86 U/L (38-126); Aspartate Amino Transferase 47 U/L (14-36); Bilirubin,Total 0.4 mg/dl (0.2-1.3); Blood Urea Nitrogen 22 mg/dl (7-17); Calcium 9.4 mg/dl (8.4-10.2); Carbon Dioxide 28 mmol/L (22.0-30.0); Creatinine Clearance Estimated 60 mL/min (50-200); Estimated Glomerular Filt Rate 61 ml/min (>60); GFR (African American) 73 ML/MIN (>60); Globulin 2.9 g/dL (1.3-3.2); Glucose 97 mg/dl (74-100)
== END 2023-06-14 11:35 | disposition home or self-care (01) ==
LOC: INF 11:14
PROVIDERS: PCP Family Medicine; Visit Provider Obstetrics & Gynecology
DX: C57.00 Malignant neoplasm of unspecified fallopian tube (principal); Z45.2 Encounter for adjustment and management of vascular access device
CPT/HCPCS: 36591; 80053; 85025; J1642

== ENCOUNTER 2023-06-28 11:21 | Outpatient (CLI) | payer MEDICARE, OTHER, SELFPAY ==
[2023-06-28 11:32] VITALS: BMI 30.9
[2023-06-28 11:55] LABS: Basophils % 0.8 % (0.1-2.0); Eosinophils # 0.3 K/mm3 (0.0-0.4); Hematocrit 41.5 % (37.0-47.0); Hemoglobin 13.7 g/dL (12.2-16.2); Lymphocytes # 0.8 K/mm3 (0.7-4.5); Lymphocytes % 20.8 % (10-50); Mean Corpuscular Hemoglobin 35.6 pg (27.0-31.2); Mean Platelet Volume 8.1 fl (7.4-10.4); Monocytes # 0.2 K/mm3 (0.1-1.0); Monocytes % 4.3 % (1.7-9.3); Neutrophils # 2.6 K/mm3 (1.8-7.8); Neutrophils % 66.1 % (37.0-80.0); Platelet Count 212 K/mm3 (142-424); Red Blood Count 3.85 M/mm3 (4.20-5.40); Red Cell Distribution Width 15.3 % (11.5-17.5); White Blood Count 3.9 K/mm3 (4.8-10.8)
[2023-06-28 12:06] LABS: Chloride 105 mmol/L (98-107); Potassium 4.1 mmoL/L (3.5-5.1); Sodium 139 mmol/L (136-145)
[2023-06-28 12:09] LABS: Alanine Aminotransferase 25 U/L (12-78); Albumin Level 4.1 g/dl (3.5-5.0); Albumin/Globulin Ratio 1.3 (1.1-1.8); Alkaline Phosphatase 69 U/L (38-126); Anion Gap 10.1 mEq/L (5-15); Aspartate Amino Transferase 34 U/L (14-36); Bilirubin,Total 0.5 mg/dl (0.2-1.3); Blood Urea Nitrogen 24 mg/dl (7-17); Carbon Dioxide 28 mmol/L (22.0-30.0); Creatinine Clearance Estimated 59 mL/min (50-200); Estimated Glomerular Filt Rate 61 ml/min (>60); GFR (African American) 73 ML/MIN (>60); Globulin 3.1 g/dL (1.3-3.2); Total Protein,Serum 7.2 g/dl (6.3-8.2)
[2023-06-28 12:10] LABS: Calcium 8.8 mg/dl (8.4-10.2); Glucose 92 mg/dl (74-100)
== END 2023-06-28 12:15 | disposition home or self-care (01) ==
LOC: INF 11:22
PROVIDERS: PCP Family Medicine; Visit Provider Obstetrics & Gynecology
DX: C57.00 Malignant neoplasm of unspecified fallopian tube (principal); Z45.2 Encounter for adjustment and management of vascular access device; C54.9 Malignant neoplasm of corpus uteri, unspecified
CPT/HCPCS: 36591; 80053; 85025; J1642

== ENCOUNTER 2023-07-05 11:30 | Outpatient (CLI) | payer MEDICARE, OTHER, SELFPAY ==
[2023-07-05 11:36] VITALS: BMI 30.9
[2023-07-05 11:55] LABS: Chloride 105 mmol/L (98-107); Sodium 138 mmol/L (136-145)
[2023-07-05 11:56] LABS: Potassium 3.7 mmoL/L (3.5-5.1)
[2023-07-05 11:58] LABS: Alanine Aminotransferase 26 U/L (12-78); Albumin Level 4.1 g/dl (3.5-5.0); Albumin/Globulin Ratio 1.4 (1.1-1.8); Alkaline Phosphatase 61 U/L (38-126); Anion Gap 7.7 mEq/L (5-15); Aspartate Amino Transferase 33 U/L (14-36); Bilirubin,Total 0.6 mg/dl (0.2-1.3); Blood Urea Nitrogen 21 mg/dl (7-17); Calcium 8.9 mg/dl (8.4-10.2); Carbon Dioxide 29 mmol/L (22.0-30.0); Creatinine Clearance Estimated 59 mL/min (50-200); Estimated Glomerular Filt Rate 61 ml/min (>60); GFR (African American) 73 ML/MIN (>60); Globulin 2.9 g/dL (1.3-3.2); Glucose 97 mg/dl (74-100)
[2023-07-05 11:59] LABS: Basophils % 0.5 % (0.1-2.0); Eosinophils # 0.3 K/mm3 (0.0-0.4); Eosinophils % 8.8 % (0.1-12.0); Hematocrit 41.2 % (37.0-47.0); Hemoglobin 13.4 g/dL (12.2-16.2); Lymphocytes # 0.7 K/mm3 (0.7-4.5); Lymphocytes % 20.4 % (10-50); Mean Corpuscular HGB Conc 32.5 g/dL (31.8-35.4); Mean Corpuscular Hemoglobin 35.4 pg (27.0-31.2); Mean Platelet Volume 8.1 fl (7.4-10.4); Monocytes # 0.2 K/mm3 (0.1-1.0); Monocytes % 5.2 % (1.7-9.3); Neutrophils # 2.3 K/mm3 (1.8-7.8); Neutrophils % 65.2 % (37.0-80.0); Platelet Count 201 K/mm3 (142-424); Red Blood Count 3.78 M/mm3 (4.20-5.40); Red Cell Distribution Width 15.6 % (11.5-17.5); White Blood Count 3.5 K/mm3 (4.8-10.8)
== END 2023-07-05 11:51 | disposition home or self-care (01) ==
LOC: INF 11:32
PROVIDERS: PCP Family Medicine; Visit Provider Obstetrics & Gynecology
DX: C57.00 Malignant neoplasm of unspecified fallopian tube (principal); C54.9 Malignant neoplasm of corpus uteri, unspecified; Z45.2 Encounter for adjustment and management of vascular access device
CPT/HCPCS: 36591; 80053; 85025; J1642

== ENCOUNTER 2023-07-19 11:23 | Outpatient (CLI) | payer MEDICARE, OTHER, SELFPAY ==
[2023-07-19 11:27] VITALS: BMI 30.9
[2023-07-19] MEDS: SODIUM CHLORIDE 0.9% 10ML FLUSH SYRINGE 10 ML IV (11:35)
[2023-07-19 11:44] LABS: Basophils % 0.7 % (0.1-2.0); Eosinophils # 0.4 K/mm3 (0.0-0.4); Eosinophils % 10.9 % (0.1-12.0); Hemoglobin 13.7 g/dL (12.2-16.2); Lymphocytes # 0.7 K/mm3 (0.7-4.5); Lymphocytes % 21.6 % (10-50); Mean Corpuscular HGB Conc 33.5 g/dL (31.8-35.4); Mean Corpuscular Hemoglobin 35.9 pg (27.0-31.2); Mean Corpuscular Volume 107.3 fl (81-99); Mean Platelet Volume 7.2 fl (7.4-10.4); Monocytes # 0.2 K/mm3 (0.1-1.0); Monocytes % 4.6 % (1.7-9.3); Neutrophils % 62.2 % (37.0-80.0); Platelet Count 225 K/mm3 (142-424); Red Blood Count 3.83 M/mm3 (4.20-5.40); Red Cell Distribution Width 15.2 % (11.5-17.5); White Blood Count 3.3 K/mm3 (4.8-10.8)
[2023-07-19 11:58] LABS: Chloride 106 mmol/L (98-107); Sodium 138 mmol/L (136-145)
[2023-07-19 11:59] LABS: Potassium 4.2 mmoL/L (3.5-5.1)
[2023-07-19 12:01] LABS: Alanine Aminotransferase 29 U/L (12-78); Albumin Level 4.3 g/dl (3.5-5.0); Albumin/Globulin Ratio 1.4 (1.1-1.8); Alkaline Phosphatase 70 U/L (38-126); Aspartate Amino Transferase 37 U/L (14-36); Bilirubin,Total 0.6 mg/dl (0.2-1.3); Blood Urea Nitrogen 32 mg/dl (7-17); Creatinine Clearance Estimated 59 mL/min (50-200); Estimated Glomerular Filt Rate 54 ml/min (>60); GFR (African American) 65 ML/MIN (>60); Total Protein,Serum 7.3 g/dl (6.3-8.2)
[2023-07-19 12:02] LABS: Anion Gap 12.2 mEq/L (5-15); Calcium 9.2 mg/dl (8.4-10.2); Carbon Dioxide 24 mmol/L (22.0-30.0); Glucose 104 mg/dl (74-100)
== END 2023-07-19 11:35 | disposition home or self-care (01) ==
LOC: INF 11:24
PROVIDERS: PCP Family Medicine; Visit Provider Obstetrics & Gynecology
DX: C57.00 Malignant neoplasm of unspecified fallopian tube (principal); Z45.2 Encounter for adjustment and management of vascular access device; C54.9 Malignant neoplasm of corpus uteri, unspecified
CPT/HCPCS: 36591; 80053; 85025; J1642

== ENCOUNTER 2023-07-21 08:39 | Outpatient (CLI) | payer MEDICARE, OTHER, SELFPAY ==
[2023-07-21 08:43] VITALS: BMI 30.6
[2023-07-21 09:18] LABS: Basophils % 0.8 % (0.1-2.0); Eosinophils # 0.3 K/mm3 (0.0-0.4); Eosinophils % 8.5 % (0.1-12.0); Hematocrit 41.1 % (37.0-47.0); Hemoglobin 13.4 g/dL (12.2-16.2); Lymphocytes # 0.6 K/mm3 (0.7-4.5); Lymphocytes % 15.6 % (10-50); Mean Corpuscular HGB Conc 32.5 g/dL (31.8-35.4); Mean Corpuscular Hemoglobin 35.1 pg (27.0-31.2); Mean Corpuscular Volume 108.1 fl (81-99); Mean Platelet Volume 8.5 fl (7.4-10.4); Monocytes # 0.1 K/mm3 (0.1-1.0); Monocytes % 3.7 % (1.7-9.3); Neutrophils # 2.8 K/mm3 (1.8-7.8); Neutrophils % 71.3 % (37.0-80.0); Platelet Count 225 K/mm3 (142-424); Red Blood Count 3.81 M/mm3 (4.20-5.40); Red Cell Distribution Width 15.5 % (11.5-17.5); White Blood Count 3.9 K/mm3 (4.8-10.8)
[2023-07-21 09:23] LABS: Chloride 108 mmol/L (98-107); Potassium 3.9 mmoL/L (3.5-5.1); Sodium 141 mmol/L (136-145)
[2023-07-21 09:25] LABS: Alanine Aminotransferase 25 U/L (12-78); Albumin/Globulin Ratio 1.3 (1.1-1.8); Alkaline Phosphatase 69 U/L (38-126); Anion Gap 11.9 mEq/L (5-15); Aspartate Amino Transferase 34 U/L (14-36); Bilirubin,Total 0.5 mg/dl (0.2-1.3); Blood Urea Nitrogen 20 mg/dl (7-17); Carbon Dioxide 25 mmol/L (22.0-30.0); Creatinine Clearance Estimated 58 mL/min (50-200); Estimated Glomerular Filt Rate 70 ml/min (>60); GFR (African American) 84 ML/MIN (>60)
[2023-07-21 09:26] LABS: Calcium 8.8 mg/dl (8.4-10.2); Chol/HDL Ratio 3.9 (1-3.5); Cholesterol 192 mg/dl (140-200); Glucose 108 mg/dl (74-100); HDL Cholesterol 49 mg/dl (40-60); Triglycerides 155 mg/dl (30-150); VLDL Cholesterol 31 mg/dL (0-40)
[2023-07-21 09:37] LABS: Direct LDL Cholesterol 92.04 mg/dL (100-129)
[2023-07-21 09:46] LABS: Hemoglobin A1C 5.3 % (4.0-6.0)
[2023-07-21 09:57] LABS: Thyroid Stimulating Hormone 2.41 uIU/mL (0.465-4.68)
[2023-07-21 11:09] LABS: 25-OH Vitamin D, Total 42.6 ng/mL (30-100)
== END 2023-07-21 09:00 | disposition home or self-care (01) ==
PROVIDERS: PCP Family Medicine; Visit Provider Family Medicine
DX: E55.9 Vitamin D deficiency, unspecified (principal); R73.09 Other abnormal glucose; R07.9 Chest pain, unspecified; E03.9 Hypothyroidism, unspecified; Z45.2 Encounter for adjustment and management of vascular access device; C54.9 Malignant neoplasm of corpus uteri, unspecified
CPT/HCPCS: 36591; 80053; 80061; 82306; 83036; 84443; 85025; J1642

== ENCOUNTER 2023-07-26 11:48 | Outpatient (CLI) | payer MEDICARE, OTHER, SELFPAY ==
[2023-07-26 11:54] VITALS: BMI 30.9
[2023-07-26] MEDS: SODIUM CHLORIDE 0.9% 10ML FLUSH SYRINGE 10 ML IV (12:00)
[2023-07-26 12:35] LABS: Alanine Aminotransferase 64 U/L (12-78); Albumin/Globulin Ratio 1.4 (1.1-1.8); Alkaline Phosphatase 128 U/L (38-126); Anion Gap 9.8 mEq/L (5-15); Aspartate Amino Transferase 52 U/L (14-36); Bilirubin,Total 0.4 mg/dl (0.2-1.3); Blood Urea Nitrogen 22 mg/dl (7-17); Calcium 8.7 mg/dl (8.4-10.2); Carbon Dioxide 24 mmol/L (22.0-30.0); Chloride 107 mmol/L (98-107); Creatinine Clearance Estimated 59 mL/min (50-200); Estimated Glomerular Filt Rate 70 ml/min (>60); GFR (African American) 84 ML/MIN (>60); Globulin 2.9 g/dL (1.3-3.2); Glucose 92 mg/dl (74-100); Potassium 3.8 mmoL/L (3.5-5.1); Sodium 137 mmol/L (136-145); Total Protein,Serum 6.9 g/dl (6.3-8.2)
[2023-07-26 12:39] LABS: Eosinophils # 0.3 K/mm3 (0.0-0.4); Hematocrit 39.2 % (37.0-47.0); Hemoglobin 13.1 g/dL (12.2-16.2); Lymphocytes # 0.8 K/mm3 (0.7-4.5); Mean Corpuscular HGB Conc 33.3 g/dL (31.8-35.4); Mean Corpuscular Hemoglobin 35.4 pg (27.0-31.2); Mean Corpuscular Volume 106.3 fl (81-99); Monocytes # 0.2 K/mm3 (0.1-1.0); Neutrophils # 2.4 K/mm3 (1.8-7.8); Platelet Count 208 K/mm3 (142-424); Red Blood Count 3.69 M/mm3 (4.20-5.40); Red Cell Distribution Width 15.3 % (11.5-17.5); White Blood Count 3.7 K/mm3 (4.8-10.8)
== END 2023-07-26 12:15 | disposition home or self-care (01) ==
LOC: INF 11:50
PROVIDERS: PCP Family Medicine; Visit Provider Obstetrics & Gynecology
DX: C56.9 Malignant neoplasm of unspecified ovary (principal); Z45.2 Encounter for adjustment and management of vascular access device
CPT/HCPCS: 36591; 80053; 85025; J1642

== ENCOUNTER 2023-08-01 09:05 | Outpatient (CLI) | payer MEDICARE, OTHER, SELFPAY ==
--- NOTE | 2023-08-01 09:11 | CT_ITS ---
FINAL REPORT CLINICAL HISTORY: THYROID EYE DISEASE FINDINGS: Axial images of the head were obtained without contrast. Coronal reformatted images were also obtained. This study was performed with techniques to keep radiation doses as low as reasonably achievable (ALARA). Individualized dose reduction techniques using automated exposure control or adjustment of mA and/or kV according to the patient's size were employed. There is generalized age-appropriate atrophy. Periventricular low-attenuation areas are seen consistent with mild chronic ischemic changes. There is no evidence of intracranial hemorrhage or mass. There is no evidence of acute infarct. There is no evidence of shift of the midline structures. No skull abnormality is seen on the bone window images. There is mucosal thickening of the maxillary sinuses. IMPRESSION: Atrophy and mild periventricular chronic ischemic changes. No acute intracranial abnormality identified. Reviewed, Interpreted and Dictated by Reuben Ruiz III, MD Transcribed by Kristen Haney Authenticated and [facility]
--- NOTE | 2023-08-01 09:12 | CT_ITS ---
FINAL REPORT TECHNIQUE: Axial CT images were obtained through the orbits/sella turcica/middle ear. Coronal and sagittal reformats were obtained.This study was performed with techniques to keep radiation doses as low as reasonably achievable (ALARA). Individualized dose reduction techniques using automated exposure control or adjustment of mA and/or kV according to the patient's size were employed. CLINICAL HISTORY: THYROID EYE DISEASE FINDINGS: There is no acute fracture. The globes are symmetric. There is bilateral exophthalmos. There are is enlargement of the bilateral extraocular muscles greatest involving the medial recti bilaterally. There is partial fatty infiltration of the inferior recti bilaterally. There is moderate mucosal thickening in the maxillary sinuses. 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 Reviewed, Interpreted and Dictated by Reuben Ruiz III, MD Transcribed by Yves Wheeler Authenticated and [facility]
[2023-08-01] MEDS: IOPAMIDOL-300 (61%) 100ML VIAL 50 ML IV (10:44)
[2023-08-01] MEDS: SODIUM CHLORIDE 0.9% 10ML SYR (RAD ONLY) 10 ML IV (10:44)
== END 2023-08-01 23:59 ==
LOC: RAD 09:06
PROVIDERS: PCP Family Medicine; Visit Provider Ophthalmology
DX: E07.89 Other specified disorders of thyroid (principal); H05.20 Unspecified exophthalmos
CPT/HCPCS: 70470; 70482; J1642; Q9967

== ENCOUNTER 2023-08-09 11:33 | Outpatient (CLI) | payer MEDICARE, OTHER, SELFPAY ==
[2023-08-09 11:37] VITALS: BMI 30.9
[2023-08-09] MEDS: SODIUM CHLORIDE 0.9% 10ML FLUSH SYRINGE 10 ML IV (12:06)
[2023-08-09 12:10] LABS: Basophils % 0.9 % (0.1-2.0); Eosinophils # 0.2 K/mm3 (0.0-0.4); Hematocrit 41.1 % (37.0-47.0); Hemoglobin 13.6 g/dL (12.2-16.2); Lymphocytes # 0.7 K/mm3 (0.7-4.5); Lymphocytes % 19.7 % (10-50); Mean Corpuscular Hemoglobin 35.8 pg (27.0-31.2); Mean Corpuscular Volume 108.3 fl (81-99); Mean Platelet Volume 7.9 fl (7.4-10.4); Monocytes # 0.2 K/mm3 (0.1-1.0); Monocytes % 5.4 % (1.7-9.3); Neutrophils # 2.2 K/mm3 (1.8-7.8); Platelet Count 222 K/mm3 (142-424); Red Cell Distribution Width 15.5 % (11.5-17.5); White Blood Count 3.3 K/mm3 (4.8-10.8)
[2023-08-09 13:22] LABS: Chloride 106 mmol/L (98-107); Potassium 4.2 mmoL/L (3.5-5.1); Sodium 139 mmol/L (136-145)
[2023-08-09 13:25] LABS: Alanine Aminotransferase 23 U/L (12-78); Albumin Level 3.9 g/dl (3.5-5.0); Albumin/Globulin Ratio 1.3 (1.1-1.8); Alkaline Phosphatase 77 U/L (38-126); Anion Gap 10.2 mEq/L (5-15); Aspartate Amino Transferase 39 U/L (14-36); Bilirubin,Total 0.5 mg/dl (0.2-1.3); Blood Urea Nitrogen 24 mg/dl (7-17); Calcium 8.9 mg/dl (8.4-10.2); Carbon Dioxide 27 mmol/L (22.0-30.0); Creatinine Clearance Estimated 59 mL/min (50-200); Estimated Glomerular Filt Rate 70 ml/min (>60); GFR (African American) 84 ML/MIN (>60); Globulin 3.1 g/dL (1.3-3.2); Glucose 94 mg/dl (74-100)
== END 2023-08-09 12:07 | disposition home or self-care (01) ==
PROVIDERS: PCP Family Medicine; Visit Provider Obstetrics & Gynecology
DX: C57.00 Malignant neoplasm of unspecified fallopian tube (principal); Z45.2 Encounter for adjustment and management of vascular access device
CPT/HCPCS: 36591; 80053; 85025; J1642

== ENCOUNTER 2023-08-16 11:25 | Outpatient (CLI) | payer MEDICARE, OTHER, SELFPAY ==
[2023-08-16 11:30] VITALS: BMI 29.5
[2023-08-16] MEDS: SODIUM CHLORIDE 0.9% 10ML FLUSH SYRINGE 10 ML IV (11:40)
[2023-08-16 11:52] LABS: Basophils % 0.9 % (0.1-2.0); Eosinophils # 0.3 K/mm3 (0.0-0.4); Eosinophils % 7.9 % (0.1-12.0); Hematocrit 40.1 % (37.0-47.0); Hemoglobin 13.1 g/dL (12.2-16.2); Lymphocytes # 0.7 K/mm3 (0.7-4.5); Lymphocytes % 18.9 % (10-50); Mean Corpuscular HGB Conc 32.7 g/dL (31.8-35.4); Mean Corpuscular Volume 110.1 fl (81-99); Mean Platelet Volume 9.3 fl (7.4-10.4); Monocytes # 0.2 K/mm3 (0.1-1.0); Monocytes % 6.2 % (1.7-9.3); Neutrophils # 2.3 K/mm3 (1.8-7.8); Neutrophils % 66.1 % (37.0-80.0); Platelet Count 197 K/mm3 (142-424); Red Blood Count 3.64 M/mm3 (4.20-5.40); Red Cell Distribution Width 15.6 % (11.5-17.5); White Blood Count 3.5 K/mm3 (4.8-10.8)
[2023-08-16 11:59] LABS: Chloride 105 mmol/L (98-107); Potassium 3.7 mmoL/L (3.5-5.1); Sodium 138 mmol/L (136-145)
[2023-08-16 12:02] LABS: Alanine Aminotransferase 25 U/L (12-78); Albumin Level 3.7 g/dl (3.5-5.0); Albumin/Globulin Ratio 1.3 (1.1-1.8); Alkaline Phosphatase 61 U/L (38-126); Anion Gap 12.7 mEq/L (5-15); Aspartate Amino Transferase 34 U/L (14-36); Bilirubin,Total 0.5 mg/dl (0.2-1.3); Blood Urea Nitrogen 28 mg/dl (7-17); Calcium 8.5 mg/dl (8.4-10.2); Carbon Dioxide 24 mmol/L (22.0-30.0); Creatinine Clearance Estimated 56 mL/min (50-200); Estimated Glomerular Filt Rate 70 ml/min (>60); GFR (African American) 84 ML/MIN (>60); Globulin 2.9 g/dL (1.3-3.2); Glucose 145 mg/dl (74-100); Total Protein,Serum 6.6 g/dl (6.3-8.2)
== END 2023-08-16 11:44 | disposition home or self-care (01) ==
LOC: INF 11:26
PROVIDERS: PCP Family Medicine; Visit Provider Obstetrics & Gynecology
DX: C57.00 Malignant neoplasm of unspecified fallopian tube (principal); Z45.2 Encounter for adjustment and management of vascular access device
CPT/HCPCS: 36591; 80053; 85025; J1642

== ENCOUNTER 2023-08-30 12:56 | Outpatient (CLI) | payer MEDICARE, OTHER, SELFPAY ==
[2023-08-30 13:00] VITALS: BMI 29.5
[2023-08-30] MEDS: SODIUM CHLORIDE 0.9% 10ML FLUSH SYRINGE 10 ML IV (13:05)
[2023-08-30 13:19] LABS: Basophils % 0.8 % (0.1-2.0); Eosinophils # 0.2 K/mm3 (0.0-0.4); Eosinophils % 5.6 % (0.1-12.0); Hematocrit 36.9 % (37.0-47.0); Hemoglobin 13.5 g/dL (12.2-16.2); Lymphocytes # 0.6 K/mm3 (0.7-4.5); Lymphocytes % 15.7 % (10-50); Mean Corpuscular HGB Conc 36.7 g/dL (31.8-35.4); Mean Corpuscular Volume 111.9 fl (81-99); Mean Platelet Volume 8.4 fl (7.4-10.4); Monocytes # 0.2 K/mm3 (0.1-1.0); Monocytes % 5.6 % (1.7-9.3); Neutrophils # 2.9 K/mm3 (1.8-7.8); Neutrophils % 72.1 % (37.0-80.0); Platelet Count 175 K/mm3 (142-424); Red Cell Distribution Width 15.6 % (11.5-17.5)
[2023-08-30 13:21] LABS: Mean Corpuscular Hemoglobin 41.1 pg (27.0-31.2)
[2023-08-30 13:28] LABS: Chloride 106 mmol/L (98-107); Potassium 3.9 mmoL/L (3.5-5.1); Sodium 139 mmol/L (136-145)
[2023-08-30 13:30] LABS: Alanine Aminotransferase 22 U/L (12-78); Alkaline Phosphatase 58 U/L (38-126); Anion Gap 10.9 mEq/L (5-15); Aspartate Amino Transferase 30 U/L (14-36); Bilirubin,Total 0.6 mg/dl (0.2-1.3); Blood Urea Nitrogen 34 mg/dl (7-17); Carbon Dioxide 26 mmol/L (22.0-30.0); Creatinine Clearance Estimated 56 mL/min (50-200); Estimated Glomerular Filt Rate 54 ml/min (>60); GFR (African American) 65 ML/MIN (>60)
[2023-08-30 13:31] LABS: Albumin Level 3.8 g/dl (3.5-5.0); Albumin/Globulin Ratio 1.3 (1.1-1.8); Calcium 9.4 mg/dl (8.4-10.2); Glucose 111 mg/dl (74-100); Total Protein,Serum 6.8 g/dl (6.3-8.2)
== END 2023-08-30 13:15 | disposition home or self-care (01) ==
LOC: INF 12:57
PROVIDERS: PCP Family Medicine; Visit Provider Obstetrics & Gynecology
DX: C56.9 Malignant neoplasm of unspecified ovary (principal); C57.00 Malignant neoplasm of unspecified fallopian tube; Z45.2 Encounter for adjustment and management of vascular access device
CPT/HCPCS: 36591; 80053; 85025; J1642

== ENCOUNTER 2023-09-06 11:31 | Outpatient (CLI) | payer MEDICARE, OTHER, SELFPAY ==
[2023-09-06 11:35] VITALS: BMI 29.5
[2023-09-06] MEDS: SODIUM CHLORIDE 0.9% 10ML FLUSH SYRINGE 10 ML IV (11:45)
[2023-09-06 12:00] LABS: Basophils % 1.1 % (0.1-2.0); Eosinophils # 0.2 K/mm3 (0.0-0.4); Eosinophils % 6.4 % (0.1-12.0); Hematocrit 42.3 % (37.0-47.0); Hemoglobin 13.8 g/dL (12.2-16.2); Lymphocytes # 0.6 K/mm3 (0.7-4.5); Lymphocytes % 16.7 % (10-50); Mean Corpuscular HGB Conc 32.6 g/dL (31.8-35.4); Mean Corpuscular Hemoglobin 35.8 pg (27.0-31.2); Mean Corpuscular Volume 109.8 fl (81-99); Mean Platelet Volume 8.6 fl (7.4-10.4); Monocytes # 0.2 K/mm3 (0.1-1.0); Monocytes % 5.6 % (1.7-9.3); Neutrophils # 2.6 K/mm3 (1.8-7.8); Neutrophils % 70.2 % (37.0-80.0); Platelet Count 214 K/mm3 (142-424); Red Blood Count 3.85 M/mm3 (4.20-5.40); Red Cell Distribution Width 15.4 % (11.5-17.5); White Blood Count 3.7 K/mm3 (4.8-10.8)
[2023-09-06 12:12] LABS: Chloride 107 mmol/L (98-107); Potassium 4.2 mmoL/L (3.5-5.1); Sodium 138 mmol/L (136-145)
[2023-09-06 12:15] LABS: Alanine Aminotransferase 30 U/L (12-78); Albumin Level 3.9 g/dl (3.5-5.0); Albumin/Globulin Ratio 1.3 (1.1-1.8); Alkaline Phosphatase 90 U/L (38-126); Anion Gap 9.2 mEq/L (5-15); Aspartate Amino Transferase 35 U/L (14-36); Bilirubin,Total 0.5 mg/dl (0.2-1.3); Blood Urea Nitrogen 19 mg/dl (7-17); Carbon Dioxide 26 mmol/L (22.0-30.0); Creatinine Clearance Estimated 56 mL/min (50-200); Estimated Glomerular Filt Rate 61 ml/min (>60); GFR (African American) 73 ML/MIN (>60); Glucose 101 mg/dl (74-100); Total Protein,Serum 6.9 g/dl (6.3-8.2)
== END 2023-09-06 11:55 | disposition home or self-care (01) ==
LOC: INF 11:31
PROVIDERS: PCP Family Medicine; Visit Provider Obstetrics & Gynecology
DX: C57.00 Malignant neoplasm of unspecified fallopian tube (principal); Z45.2 Encounter for adjustment and management of vascular access device
CPT/HCPCS: 36591; 80053; 85025; J1642

== ENCOUNTER 2023-09-20 11:30 | Outpatient (CLI) | payer MEDICARE, OTHER, SELFPAY ==
[2023-09-20 11:37] VITALS: BMI 29.5
[2023-09-20] MEDS: SODIUM CHLORIDE 0.9% 10ML FLUSH SYRINGE 10 ML IV (11:45)
[2023-09-20 12:21] LABS: Chloride 109 mmol/L (98-107); Sodium 139 mmol/L (136-145)
[2023-09-20 12:24] LABS: Alanine Aminotransferase 26 U/L (12-78); Alkaline Phosphatase 67 U/L (38-126); Aspartate Amino Transferase 33 U/L (14-36); Bilirubin,Total 0.4 mg/dl (0.2-1.3); Blood Urea Nitrogen 19 mg/dl (7-17); Creatinine Clearance Estimated 56 mL/min (50-200); Estimated Glomerular Filt Rate 70 ml/min (>60); GFR (African American) 84 ML/MIN (>60)
[2023-09-20 12:25] LABS: Albumin Level 3.7 g/dl (3.5-5.0); Albumin/Globulin Ratio 1.2 (1.1-1.8); Calcium 9.2 mg/dl (8.4-10.2); Carbon Dioxide 29 mmol/L (22.0-30.0); Glucose 92 mg/dl (74-100); Total Protein,Serum 6.7 g/dl (6.3-8.2)
[2023-09-20 12:27] LABS: Basophils % 0.8 % (0.1-2.0); Eosinophils # 0.2 K/mm3 (0.0-0.4); Eosinophils % 7.6 % (0.1-12.0); Hematocrit 41.9 % (37.0-47.0); Hemoglobin 13.3 g/dL (12.2-16.2); Lymphocytes # 0.8 K/mm3 (0.7-4.5); Lymphocytes % 23.6 % (10-50); Mean Corpuscular HGB Conc 31.7 g/dL (31.8-35.4); Mean Corpuscular Hemoglobin 36.2 pg (27.0-31.2); Mean Corpuscular Volume 114.3 fl (81-99); Mean Platelet Volume 8.2 fl (7.4-10.4); Monocytes # 0.2 K/mm3 (0.1-1.0); Monocytes % 6.3 % (1.7-9.3); Neutrophils % 61.7 % (37.0-80.0); Platelet Count 204 K/mm3 (142-424); Red Blood Count 3.66 M/mm3 (4.20-5.40); Red Cell Distribution Width 15.5 % (11.5-17.5); White Blood Count 3.2 K/mm3 (4.8-10.8)
[2023-09-20 14:47] LABS: Free T4 (Free Thyroxine) 1.71 ng/dl (0.78-2.19)
[2023-09-20 16:04] LABS: Thyroid Stimulating Hormone 0.03 uIU/mL (0.465-4.68)
[2023-09-20 16:38] LABS: 25-OH Vitamin D, Total 45.3 ng/mL (30-100)
== END 2023-09-20 12:19 | disposition home or self-care (01) ==
LOC: INF 11:31
PROVIDERS: Nurse Practitioner; PCP Family Medicine; Visit Provider Obstetrics & Gynecology
DX: C57.00 Malignant neoplasm of unspecified fallopian tube (principal); E55.9 Vitamin D deficiency, unspecified; E89.0 Postprocedural hypothyroidism; Z45.2 Encounter for adjustment and management of vascular access device
CPT/HCPCS: 36591; 80053; 82306; 84439; 84443; 85025; J1642

== ENCOUNTER 2023-09-27 11:27 | Outpatient (CLI) | payer MEDICARE, OTHER, SELFPAY ==
[2023-09-27 11:33] VITALS: BMI 29.5
[2023-09-27 11:53] LABS: Basophils % 0.6 % (0.1-2.0); Eosinophils # 0.2 K/mm3 (0.0-0.4); Eosinophils % 7.2 % (0.1-12.0); Hematocrit 41.3 % (37.0-47.0); Lymphocytes # 0.6 K/mm3 (0.7-4.5); Lymphocytes % 20.7 % (10-50); Mean Corpuscular HGB Conc 31.4 g/dL (31.8-35.4); Mean Corpuscular Hemoglobin 35.3 pg (27.0-31.2); Mean Corpuscular Volume 112.4 fl (81-99); Mean Platelet Volume 8.8 fl (7.4-10.4); Monocytes # 0.2 K/mm3 (0.1-1.0); Monocytes % 6.1 % (1.7-9.3); Neutrophils % 65.4 % (37.0-80.0); Platelet Count 188 K/mm3 (142-424); Red Blood Count 3.67 M/mm3 (4.20-5.40); Red Cell Distribution Width 15.4 % (11.5-17.5); White Blood Count 3.1 K/mm3 (4.8-10.8)
[2023-09-27 11:59] LABS: Alanine Aminotransferase 92 U/L (12-78); Albumin Level 3.7 g/dl (3.5-5.0); Albumin/Globulin Ratio 1.3 (1.1-1.8); Alkaline Phosphatase 118 U/L (38-126); Anion Gap 10.7 mEq/L (5-15); Aspartate Amino Transferase 95 U/L (14-36); Bilirubin,Total 0.7 mg/dl (0.2-1.3); Blood Urea Nitrogen 23 mg/dl (7-17); Calcium 8.9 mg/dl (8.4-10.2); Carbon Dioxide 24 mmol/L (22.0-30.0); Chloride 108 mmol/L (98-107); Creatinine Clearance Estimated 55 mL/min (50-200); Estimated Glomerular Filt Rate 61 ml/min (>60); GFR (African American) 73 ML/MIN (>60); Globulin 2.8 g/dL (1.3-3.2); Glucose 151 mg/dl (74-100); Potassium 3.7 mmoL/L (3.5-5.1); Sodium 139 mmol/L (136-145); Total Protein,Serum 6.5 g/dl (6.3-8.2)
[2023-09-27] MEDS: SODIUM CHLORIDE 0.9% 10ML FLUSH SYRINGE 10 ML IV (12:23)
== END 2023-09-27 11:50 | disposition home or self-care (01) ==
LOC: INF 11:29
PROVIDERS: PCP Family Medicine; Visit Provider Obstetrics & Gynecology
DX: C57.00 Malignant neoplasm of unspecified fallopian tube (principal); Z45.2 Encounter for adjustment and management of vascular access device
CPT/HCPCS: 36591; 80053; 85025; J1642

== ENCOUNTER 2023-10-11 11:33 | Outpatient (CLI) | payer MEDICARE, OTHER, SELFPAY ==
[2023-10-11 11:39] VITALS: BMI 29.5
[2023-10-11] MEDS: SODIUM CHLORIDE 0.9% 10ML FLUSH SYRINGE 10 ML IV (11:43)
[2023-10-11 11:52] LABS: Basophils % 1.2 % (0.1-2.0); Eosinophils # 0.2 K/mm3 (0.0-0.4); Eosinophils % 7.7 % (0.1-12.0); Hematocrit 42.4 % (37.0-47.0); Hemoglobin 13.6 g/dL (12.2-16.2); Lymphocytes # 0.5 K/mm3 (0.7-4.5); Lymphocytes % 16.8 % (10-50); Mean Corpuscular Hemoglobin 36.4 pg (27.0-31.2); Mean Corpuscular Volume 113.8 fl (81-99); Mean Platelet Volume 9.4 fl (7.4-10.4); Monocytes # 0.1 K/mm3 (0.1-1.0); Monocytes % 4.1 % (1.7-9.3); Neutrophils # 2.1 K/mm3 (1.8-7.8); Neutrophils % 70.1 % (37.0-80.0); Platelet Count 184 K/mm3 (142-424); Red Blood Count 3.73 M/mm3 (4.20-5.40); Red Cell Distribution Width 15.6 % (11.5-17.5)
[2023-10-11 12:01] LABS: Chloride 106 mmol/L (98-107); Sodium 138 mmol/L (136-145)
[2023-10-11 12:02] LABS: Potassium 3.9 mmoL/L (3.5-5.1)
[2023-10-11 12:04] LABS: Alanine Aminotransferase 35 U/L (12-78); Alkaline Phosphatase 80 U/L (38-126); Anion Gap 7.9 mEq/L (5-15); Aspartate Amino Transferase 35 U/L (14-36); Bilirubin,Total 0.4 mg/dl (0.2-1.3); Blood Urea Nitrogen 24 mg/dl (7-17); Carbon Dioxide 28 mmol/L (22.0-30.0); Creatinine Clearance Estimated 55 mL/min (50-200); Estimated Glomerular Filt Rate 54 ml/min (>60); GFR (African American) 65 ML/MIN (>60)
[2023-10-11 12:05] LABS: Albumin Level 3.8 g/dl (3.5-5.0); Albumin/Globulin Ratio 1.4 (1.1-1.8); Calcium 9.6 mg/dl (8.4-10.2); Globulin 2.7 g/dL (1.3-3.2); Glucose 130 mg/dl (74-100); Total Protein,Serum 6.5 g/dl (6.3-8.2)
== END 2023-10-11 11:45 | disposition home or self-care (01) ==
LOC: INF 11:34
PROVIDERS: PCP Family Medicine; Visit Provider Obstetrics & Gynecology
DX: C57.00 Malignant neoplasm of unspecified fallopian tube (principal); C54.9 Malignant neoplasm of corpus uteri, unspecified
CPT/HCPCS: 36591; 80053; 85025; J1642

== ENCOUNTER 2023-10-18 11:29 | Outpatient (CLI) | payer MEDICARE, OTHER, SELFPAY ==
[2023-10-18] MEDS: SODIUM CHLORIDE 0.9% 10ML FLUSH SYRINGE 10 ML IV (11:30)
[2023-10-18 11:53] VITALS: BMI 29.5
[2023-10-18 12:08] LABS: Eosinophils # 0.3 K/mm3 (0.0-0.4); Eosinophils % 8.9 % (0.1-12.0); Hematocrit 41.5 % (37.0-47.0); Hemoglobin 12.8 g/dL (12.2-16.2); Lymphocytes # 0.5 K/mm3 (0.7-4.5); Lymphocytes % 14.7 % (10-50); Mean Corpuscular HGB Conc 30.8 g/dL (31.8-35.4); Mean Corpuscular Hemoglobin 35.2 pg (27.0-31.2); Mean Corpuscular Volume 114.2 fl (81-99); Monocytes # 0.2 K/mm3 (0.1-1.0); Monocytes % 4.9 % (1.7-9.3); Neutrophils # 2.1 K/mm3 (1.8-7.8); Neutrophils % 70.4 % (37.0-80.0); Platelet Count 188 K/mm3 (142-424); Red Blood Count 3.63 M/mm3 (4.20-5.40); Red Cell Distribution Width 15.8 % (11.5-17.5)
[2023-10-18 12:24] LABS: Alanine Aminotransferase 81 U/L (12-78); Albumin Level 3.7 g/dl (3.5-5.0); Albumin/Globulin Ratio 1.3 (1.1-1.8); Alkaline Phosphatase 111 U/L (38-126); Anion Gap 11.5 mEq/L (5-15); Aspartate Amino Transferase 59 U/L (14-36); Bilirubin,Total 0.5 mg/dl (0.2-1.3); Blood Urea Nitrogen 16 mg/dl (7-17); Calcium 8.5 mg/dl (8.4-10.2); Carbon Dioxide 24 mmol/L (22.0-30.0); Chloride 107 mmol/L (98-107); Creatinine Clearance Estimated 55 mL/min (50-200); Estimated Glomerular Filt Rate 61 ml/min (>60); GFR (African American) 73 ML/MIN (>60); Globulin 2.8 g/dL (1.3-3.2); Glucose 162 mg/dl (74-100); Potassium 3.5 mmoL/L (3.5-5.1); Sodium 139 mmol/L (136-145); Total Protein,Serum 6.5 g/dl (6.3-8.2)
== END 2023-10-18 11:45 | disposition home or self-care (01) ==
LOC: INF 11:30
PROVIDERS: PCP Family Medicine; Visit Provider Obstetrics & Gynecology
DX: C57.00 Malignant neoplasm of unspecified fallopian tube (principal); Z45.2 Encounter for adjustment and management of vascular access device
CPT/HCPCS: 36591; 80053; 85025; J1642

== ENCOUNTER 2023-11-01 11:30 | Outpatient (CLI) | payer MEDICARE, OTHER, SELFPAY ==
[2023-11-01 11:34] VITALS: BMI 29.5
[2023-11-01 11:50] LABS: Basophils % 1.2 % (0.1-2.0); Eosinophils # 0.2 K/mm3 (0.0-0.4); Hemoglobin 13.2 g/dL (12.2-16.2); Lymphocytes # 0.6 K/mm3 (0.7-4.5); Lymphocytes % 16.4 % (10-50); Mean Corpuscular HGB Conc 31.4 g/dL (31.8-35.4); Mean Corpuscular Hemoglobin 35.6 pg (27.0-31.2); Mean Corpuscular Volume 113.5 fl (81-99); Mean Platelet Volume 9.1 fl (7.4-10.4); Monocytes # 0.5 K/mm3 (0.1-1.0); Monocytes % 13.6 % (1.7-9.3); Neutrophils # 2.3 K/mm3 (1.8-7.8); Neutrophils % 63.8 % (37.0-80.0); Platelet Count 206 K/mm3 (142-424); Red Cell Distribution Width 15.9 % (11.5-17.5); White Blood Count 3.6 K/mm3 (4.8-10.8)
[2023-11-01 11:59] LABS: Alanine Aminotransferase 31 U/L (12-78); Albumin Level 3.9 g/dl (3.5-5.0); Albumin/Globulin Ratio 1.4 (1.1-1.8); Alkaline Phosphatase 82 U/L (38-126); Anion Gap 8.8 mEq/L (5-15); Aspartate Amino Transferase 32 U/L (14-36); Bilirubin,Total 0.7 mg/dl (0.2-1.3); Blood Urea Nitrogen 25 mg/dl (7-17); Calcium 9.6 mg/dl (8.4-10.2); Carbon Dioxide 28 mmol/L (22.0-30.0); Chloride 107 mmol/L (98-107); Creatinine Clearance Estimated 50 mL/min (50-200); Estimated Glomerular Filt Rate 48 ml/min (>60); GFR (African American) 58 ML/MIN (>60); Globulin 2.8 g/dL (1.3-3.2); Glucose 113 mg/dl (74-100); Potassium 3.8 mmoL/L (3.5-5.1); Sodium 140 mmol/L (136-145); Total Protein,Serum 6.7 g/dl (6.3-8.2)
== END 2023-11-01 11:56 | disposition home or self-care (01) ==
LOC: INF 11:31
PROVIDERS: PCP Family Medicine; Visit Provider Obstetrics & Gynecology
DX: C57.00 Malignant neoplasm of unspecified fallopian tube (principal)
CPT/HCPCS: 36591; 80053; 85025; J1642

== ENCOUNTER 2023-11-08 11:32 | Outpatient (CLI) | payer MEDICARE, OTHER, SELFPAY ==
[2023-11-08 11:39] VITALS: BMI 29.5
[2023-11-08] MEDS: SODIUM CHLORIDE 0.9% 10ML FLUSH SYRINGE 10 ML IV (11:50)
[2023-11-08 12:26] LABS: Chloride 104 mmol/L (98-107); Potassium 4.3 mmoL/L (3.5-5.1); Sodium 137 mmol/L (136-145)
[2023-11-08 12:28] LABS: Blood Urea Nitrogen 23 mg/dl (7-17); Creatinine Clearance Estimated 55 mL/min (50-200); Estimated Glomerular Filt Rate 61 ml/min (>60); GFR (African American) 73 ML/MIN (>60)
[2023-11-08 12:29] LABS: Alanine Aminotransferase 26 U/L (12-78); Albumin Level 3.8 g/dl (3.5-5.0); Albumin/Globulin Ratio 1.3 (1.1-1.8); Alkaline Phosphatase 81 U/L (38-126); Anion Gap 7.3 mEq/L (5-15); Aspartate Amino Transferase 33 U/L (14-36); Bilirubin,Total 0.5 mg/dl (0.2-1.3); Calcium 9.9 mg/dl (8.4-10.2); Carbon Dioxide 30 mmol/L (22.0-30.0); Globulin 2.9 g/dL (1.3-3.2); Glucose 87 mg/dl (74-100); Total Protein,Serum 6.7 g/dl (6.3-8.2)
[2023-11-08 13:00] LABS: Free T4 (Free Thyroxine) 1.53 ng/dl (0.78-2.19)
[2023-11-08 14:30] LABS: Basophils # 0.1 K/mm3 (0-0.2); Basophils % 1.7 % (0.1-2.0); Eosinophils # 0.3 K/mm3 (0.0-0.4); Eosinophils % 7.2 % (0.1-12.0); Hematocrit 42.1 % (37.0-47.0); Hemoglobin 13.2 g/dL (12.2-16.2); Lymphocytes # 0.7 K/mm3 (0.7-4.5); Lymphocytes % 19.9 % (10-50); Mean Corpuscular HGB Conc 31.4 g/dL (31.8-35.4); Mean Corpuscular Hemoglobin 35.5 pg (27.0-31.2); Monocytes # 0.2 K/mm3 (0.1-1.0); Monocytes % 5.5 % (1.7-9.3); Neutrophils # 2.3 K/mm3 (1.8-7.8); Neutrophils % 65.7 % (37.0-80.0); Platelet Count 210 K/mm3 (142-424); Red Blood Count 3.73 M/mm3 (4.20-5.40); Red Cell Distribution Width 15.8 % (11.5-17.5); White Blood Count 3.5 K/mm3 (4.8-10.8)
[2023-11-08 14:42] LABS: Thyroid Stimulating Hormone 0.08 uIU/mL (0.465-4.68)
== END 2023-11-08 12:00 | disposition home or self-care (01) ==
LOC: INF 11:34
PROVIDERS: Nurse Practitioner; PCP Family Medicine; Visit Provider Obstetrics & Gynecology
DX: C57.00 Malignant neoplasm of unspecified fallopian tube (principal); E07.9 Disorder of thyroid, unspecified; Z45.2 Encounter for adjustment and management of vascular access device
CPT/HCPCS: 36591; 80053; 84439; 84443; 85025; J1642

== ENCOUNTER 2023-11-22 11:14 | Outpatient (CLI) | payer MEDICARE, OTHER, SELFPAY ==
[2023-11-22 11:20] VITALS: BMI 29.5
[2023-11-22] MEDS: SODIUM CHLORIDE 0.9% 10ML FLUSH SYRINGE 10 ML IV (11:27)
[2023-11-22 11:41] LABS: Basophils % 0.9 % (0.1-2.0); Eosinophils # 0.2 K/mm3 (0.0-0.4); Eosinophils % 5.7 % (0.1-12.0); Hematocrit 41.1 % (37.0-47.0); Hemoglobin 13.2 g/dL (12.2-16.2); Lymphocytes # 0.7 K/mm3 (0.7-4.5); Lymphocytes % 18.6 % (10-50); Mean Corpuscular Volume 112.3 fl (81-99); Mean Platelet Volume 8.9 fl (7.4-10.4); Monocytes # 0.2 K/mm3 (0.1-1.0); Monocytes % 6.3 % (1.7-9.3); Neutrophils # 2.5 K/mm3 (1.8-7.8); Neutrophils % 68.4 % (37.0-80.0); Platelet Count 216 K/mm3 (142-424); Red Blood Count 3.66 M/mm3 (4.20-5.40); Red Cell Distribution Width 16.2 % (11.5-17.5); White Blood Count 3.7 K/mm3 (4.8-10.8)
[2023-11-22 11:55] LABS: Chloride 107 mmol/L (98-107); Potassium 4.1 mmoL/L (3.5-5.1); Sodium 138 mmol/L (136-145)
[2023-11-22 11:57] LABS: Blood Urea Nitrogen 24 mg/dl (7-17); Creatinine Clearance Estimated 55 mL/min (50-200); Estimated Glomerular Filt Rate 61 ml/min (>60); GFR (African American) 73 ML/MIN (>60)
[2023-11-22 11:58] LABS: Alanine Aminotransferase 31 U/L (12-78); Albumin/Globulin Ratio 1.4 (1.1-1.8); Alkaline Phosphatase 74 U/L (38-126); Anion Gap 9.1 mEq/L (5-15); Aspartate Amino Transferase 35 U/L (14-36); Bilirubin,Total 0.6 mg/dl (0.2-1.3); Calcium 10.6 mg/dl (8.4-10.2); Carbon Dioxide 26 mmol/L (22.0-30.0); Globulin 2.9 g/dL (1.3-3.2); Glucose 93 mg/dl (74-100); Total Protein,Serum 6.9 g/dl (6.3-8.2)
== END 2023-11-22 11:35 | disposition home or self-care (01) ==
LOC: INF 11:15
PROVIDERS: PCP Family Medicine; Visit Provider Obstetrics & Gynecology
DX: Z45.2 Encounter for adjustment and management of vascular access device; Z79.899 Other long term (current) drug therapy; C57.00 Malignant neoplasm of unspecified fallopian tube
CPT/HCPCS: 36591; 80053; 85025; J1642

== ENCOUNTER 2023-11-29 11:32 | Outpatient (CLI) | payer MEDICARE, OTHER, SELFPAY ==
[2023-11-29 11:39] VITALS: BMI 29.5
[2023-11-29] MEDS: SODIUM CHLORIDE 0.9% 10ML FLUSH SYRINGE 10 ML IV (11:54)
[2023-11-29 12:00] LABS: Basophils % 1.3 % (0.1-2.0); Eosinophils # 0.2 K/mm3 (0.0-0.4); Eosinophils % 6.2 % (0.1-12.0); Hematocrit 38.9 % (37.0-47.0); Hemoglobin 12.4 g/dL (12.2-16.2); Lymphocytes # 0.5 K/mm3 (0.7-4.5); Lymphocytes % 17.3 % (10-50); Mean Corpuscular HGB Conc 31.9 g/dL (31.8-35.4); Mean Corpuscular Hemoglobin 35.8 pg (27.0-31.2); Mean Corpuscular Volume 112.5 fl (81-99); Mean Platelet Volume 9.6 fl (7.4-10.4); Monocytes # 0.1 K/mm3 (0.1-1.0); Neutrophils % 70.2 % (37.0-80.0); Platelet Count 180 K/mm3 (142-424); Red Blood Count 3.45 M/mm3 (4.20-5.40); Red Cell Distribution Width 16.2 % (11.5-17.5); White Blood Count 2.8 K/mm3 (4.8-10.8)
[2023-11-29 12:06] LABS: Alanine Aminotransferase 27 U/L (12-78); Albumin Level 3.5 g/dl (3.5-5.0); Albumin/Globulin Ratio 1.3 (1.1-1.8); Alkaline Phosphatase 64 U/L (38-126); Anion Gap 8.9 mEq/L (5-15); Aspartate Amino Transferase 32 U/L (14-36); Bilirubin,Total 0.5 mg/dl (0.2-1.3); Blood Urea Nitrogen 22 mg/dl (7-17); Calcium 8.9 mg/dl (8.4-10.2); Carbon Dioxide 24 mmol/L (22.0-30.0); Chloride 109 mmol/L (98-107); Creatinine Clearance Estimated 55 mL/min (50-200); Estimated Glomerular Filt Rate 69 ml/min (>60); GFR (African American) 84 ML/MIN (>60); Globulin 2.7 g/dL (1.3-3.2); Glucose 130 mg/dl (74-100); Potassium 3.9 mmoL/L (3.5-5.1); Sodium 138 mmol/L (136-145); Total Protein,Serum 6.2 g/dl (6.3-8.2)
== END 2023-11-29 12:03 | disposition home or self-care (01) ==
LOC: INF 11:34
PROVIDERS: PCP Family Medicine; Visit Provider Obstetrics & Gynecology
DX: C57.00 Malignant neoplasm of unspecified fallopian tube (principal); Z45.2 Encounter for adjustment and management of vascular access device
CPT/HCPCS: 36591; 80053; 85025; J1642

== ENCOUNTER 2023-12-13 11:15 | Outpatient (CLI) | payer MEDICARE, OTHER, SELFPAY ==
[2023-12-13 11:23] VITALS: BMI 29.5
[2023-12-13 11:43] LABS: Basophils % 1.2 % (0.1-2.0); Eosinophils # 0.2 K/mm3 (0.0-0.4); Eosinophils % 6.4 % (0.1-12.0); Hematocrit 40.6 % (37.0-47.0); Hemoglobin 12.7 g/dL (12.2-16.2); Lymphocytes # 0.5 K/mm3 (0.7-4.5); Lymphocytes % 14.5 % (10-50); Mean Corpuscular HGB Conc 31.2 g/dL (31.8-35.4); Mean Corpuscular Hemoglobin 35.9 pg (27.0-31.2); Mean Platelet Volume 8.8 fl (7.4-10.4); Monocytes # 0.2 K/mm3 (0.1-1.0); Monocytes % 5.1 % (1.7-9.3); Neutrophils # 2.4 K/mm3 (1.8-7.8); Neutrophils % 72.8 % (37.0-80.0); Platelet Count 183 K/mm3 (142-424); Red Blood Count 3.53 M/mm3 (4.20-5.40); Red Cell Distribution Width 16.1 % (11.5-17.5); White Blood Count 3.3 K/mm3 (4.8-10.8)
[2023-12-13 11:46] LABS: Chloride 112 mmol/L (98-107)
[2023-12-13 11:47] LABS: Sodium 140 mmol/L (136-145)
[2023-12-13 11:49] LABS: Alanine Aminotransferase 32 U/L (12-78); Aspartate Amino Transferase 40 U/L (14-36); Blood Urea Nitrogen 20 mg/dl (7-17); Creatinine Clearance Estimated 55 mL/min (50-200); Estimated Glomerular Filt Rate 69 ml/min (>60); GFR (African American) 84 ML/MIN (>60)
[2023-12-13 11:50] LABS: Albumin Level 3.6 g/dl (3.5-5.0); Albumin/Globulin Ratio 1.3 (1.1-1.8); Alkaline Phosphatase 64 U/L (38-126); Bilirubin,Total 0.5 mg/dl (0.2-1.3); Calcium 9.1 mg/dl (8.4-10.2); Carbon Dioxide 24 mmol/L (22.0-30.0); Globulin 2.8 g/dL (1.3-3.2); Glucose 125 mg/dl (74-100); Total Protein,Serum 6.4 g/dl (6.3-8.2)
== END 2023-12-13 11:35 | disposition home or self-care (01) ==
LOC: INF 11:16
PROVIDERS: PCP Family Medicine; Visit Provider Obstetrics & Gynecology
DX: C57.00 Malignant neoplasm of unspecified fallopian tube (principal)
CPT/HCPCS: 36591; 80053; 85025; J1642

== ENCOUNTER 2023-12-16 12:52 | Emergency (ER) | payer MEDICARE, OTHER, SELFPAY ==
[2023-12-16 14:20] VITALS: BP 127/67; PULSE 85; RESP 18; TEMP 36.7; O2SAT 100; BMI 29.2
--- NOTE | 2023-12-16 14:31 | EXP.UTC ---
Discharge Plan Disposition Patient Disposition: Home, Self-Care Condition: Good Prescriptions Prescriptions: New cephalexin 500 mg capsule 500 mg PO QID 7 Days Qty: 28 0RF mupirocin 2 % ointment 1 applic topical TID 7 Days Qty: 15 0RF No Action anastrozole 1 MG tablet 1 mg PO DAILY potassium chloride [K-Tab] 10 MEQ tablet extended release 10 meq PO DAILY simvastatin 40 MG tablet 40 mg PO DAILY aspirin 81 MG tablet,chewable 81 mg PO DAILY furosemide 20 MG tablet 20 mg PO DAILY cholecalciferol (vitamin D3) 50,000 UNIT capsule 50,000 unit PO DAILY famotidine 20 MG tablet 20 mg PO BID ondansetron HCl 8 MG tablet 8 mg PO BID Rx Instructions: TAKE PRIOR TO CHEMO PILL BID prochlorperazine maleate 10 MG tablet 10 mg PO DAILY PRN (Reason: Nausea) cyclophosphamide 50 mg Tablet 50 mg PO HS levothyroxine [Synthroid] 75 mcg tablet 75 mcg PO DAILY Patient Comments: TAKE 1 TABLET BY MOUTH EVERY MORNING bisoprolol fumarate 5 mg Tablet 10 mg PO DAILY 30 Days Qty: 60 10RF nitroglycerin 0.4 mg tablet, sublingual 0.4 mg sublingual Q5M PRN (Reason: chest pain) Qty: 30 0RF Rx Instructions: do not exceed 3 doses per episode polymyxin B sulf-trimethoprim [Polytrim] 10,000 unit- 1 mg/mL drops 1 drp Eye-Right Q3H 7 Days Qty: 10 0RF Rx Instructions: while awake; do not exceed 6 doses in 24 hours Referrals Follow up/Referrals: Flaquita Dorsey DO [Primary Care Provider] - See instructions Activity Restrictions/Add. Instructions Additional Instructions/Restrictions: Keep the wound clean and dry. Watch the wound for signs of infection, such as redness, swelling, drainage, fever. etc. Take tylenol or ibuprofen for pain. Take the oral antibiotic (cephalexin) as directed. Follow up with your regular doctor. GO TO THE ER FOR ANY WORSENING SYMPTOMS OR CONCERNS. Clinical Impressions Clinical Impression: Puncture wound of right middle finger Instructions Patient Instructions: DI for Puncture Wound, Cephalexin, Tetanus, Diphtheria, Pertussis (Tdap) Vaccine Discharge ED Provider: Ean Hernandez [facility] [place] HPI General Stated complaint: AO-Fish hook stuck in R middle finger Time Seen by Provider: 12/16/23 14:31 History of Present Illness Provider Complaint: She states that she has a fish hook stuck in her right middle finger. This occurred right before she came in. Her tetanus immunization is not up to date. Related Data Home Medications Medication Instructions Recorded Confirmed anastrozole 1 mg tablet 1 mg PO DAILY HORMONE 01/30/18 09/20/23 aspirin 81 mg chewable tablet 81 mg PO DAILY BLOOD THINNNER 01/30/18 09/20/23 cholecalciferol (vitamin D3) 1,250 50,000 unit PO DAILY BONES 01/30/18 09/20/23 mcg (50,000 unit) capsule furosemide 20 mg tablet 20 mg PO DAILY Hypertension 01/30/18 09/20/23 potassium chloride 10 mEq 10 meq PO DAILY Supplement 01/30/18 09/20/23 tablet,extended release (K-Tab) simvastatin 40 mg tablet 40 mg PO DAILY High cholesterol 01/30/18 09/20/23 prochlorperazine maleate 10 mg 10 mg PO DAILY PRN Nausea 07/30/18 09/20/23 tablet famotidine 20 mg tablet 20 mg PO BID Reflux/Acid reflux 09/09/19 09/20/23 ondansetron HCl 8 mg tablet 8 mg PO BID Nausea & vomiting 10/23/19 09/20/23 cyclophosphamide 50 mg tablet 50 mg PO HS chemo pill- cancer 06/22/22 09/20/23 levothyroxine 75 mcg tablet 75 mcg PO DAILY hypothyroidism 06/22/22 09/20/23 (Synthroid) Previous Rx's Medication Instructions Recorded bisoprolol fumarate 5 mg tablet 10 mg (2 x 5 mg) PO DAILY 30 days 06/23/22 #60 tabs nitroglycerin 0.4 mg sublingual 0.4 mg sublingual Q5M PRN chest 06/23/22 tablet pain #30 tabs polymyxin B sulfate 10,000 1 drp Eye-Right Q3H 7 days #10 mL 03/08/23 unit-trimethoprim 1 mg/mL eye drops (Polytrim) cephalexin 500 mg capsule 500 mg PO QID 7 days #28 caps 12/16/23 mupirocin 2 % topical ointment 1 applic topical TID 7 days #15 12/16/23 grams Allergies Allergy/AdvReac Type Severity Reaction Status Date / Time Sulfa (Sulfonamide Allergy Mild Verified 12/16/23 14:32 Antibiotics) morphine Allergy Verified 12/16/23 14:32 PFSH [facility] Disclaimer: The information contained in this section may have been updated after the patient was seen, as this information can be updated by other users. Medical History Anemia Breast cancer CAD (coronary artery disease) Chemotherapy management, encounter for COPD (chronic obstructive pulmonary disease) Gallbladder disease GERD (gastroesophageal reflux disease) Graves disease HLD (hyperlipidemia) HTN (hypertension) Hypothyroid Migraine Osteoarthritis Ovarian cancer Thyroid disease Urinary tract infection Surgical History H/O total hysterectomy with bilateral salpingo-oophorectomy (BSO) History of appendectomy History of cholecystectomy History of lumpectomy of right breast Family History Other Family history of GERD Family history of acute congestive heart failure Family history of cancer Family history of diabetes mellitus type II Family history of hyperlipidemia Family history of hypertension Family history of myocardial infarction Family history of ovarian cancer Family history of stroke Social History Smoking Status: Former smoker alcohol intake: never current occupational status: retired Travel in the last 8 weeks: Inside the [place] household members: none housing: house ROS Obtained: Yes All systems reviewed & no additional complaints except as documented Constitutional Constitutional: Denies chills and Denies fever(s) Eyes Eyes: Denies eye discharge ENT Ears, Nose, Mouth, and Throat: Denies dizziness, Denies otalgia and Denies sore throat Cardiovascular Cardiovascular: Denies chest pain Respiratory Respiratory: Denies shortness of breath, Denies chest congestion, Denies cough, Denies stridor and Denies wheezing Gastrointestinal Gastrointestingal: Denies nausea or vomiting Musculoskeletal Musculoskeletal: Reports system reviewed and no additional complaints, except as documented and Denies arthralgias Integumentary/Breasts Skin/Breast: Denies rash Neurologic Neurologic: Denies dizziness and Denies paresthesias Allergic/Immunologic Allergic/Immunologic: Denies wheezing Physical Exam General General appearance: alert and in no apparent distress Head Head exam: atraumatic, normocephalic and normal inspection Eye Eye exam: Present normal appearance, PERRL and EOMI ENT ENT exam: Present normal exam, normal oropharynx, mucous membranes moist, TM's normal bilaterally and normal external ear exam Neck Neck exam: Present normal inspection, full ROM and trachea midline; Absent meningismus or lymphadenopathy Chest Chest inspection: Present normal inspection and symmetric chest wall rise; Absent tenderness Respiratory Respiratory exam: Present normal lung sounds bilaterally; Absent respiratory distress Cardiovascular Cardiovascular exam: Present regular rate and normal rhythm; Absent JVD Abdominal Exam Abdominal exam: Present soft and normal bowel sounds; Absent distention, tenderness or guarding Extremities Exam Extremities exam: Present normal inspection, full ROM and normal capillary refill; Absent calf tenderness Back Exam Back exam: Present normal inspection; Absent tenderness Neurological Exam Neurological exam: Present alert and oriented X3 Psychiatric Psychiatric exam: Present normal affect and normal mood Skin Skin exam: Present other (there is a fish hook embedded in the palmar aspect of her right middle finger, it was easily removed, no indwelling foreign body, she has good 2 point touch discrimination distal to the wound. ) Lymphatic Lymphatic Findings: no adenopathy Medical Decision Making Medical Records Medical records reviewed: No I reviewed the patient's medical records. [place] Inquiry Pt receiving controlled substance: No Procedures Risk/Benefits of Procedure(s) Were Explained: Yes Foreign Body Removal Time Out Performed: Yes Site: left and hand Description of foreign body: fish hook Sedation/Analgesia: none Technique: manual removal Confirmed by:: direct visualization Complications: none Post-procedure exam: normal BP Neurovascular: normal distal pulse, normal capillary fill, distal light touch sensation intact, distal motor function normal, no signs of compartment syndrome and no change from pre-procedure (She tolerated this well, the brenda was disengaged with a #11 blade, then the hook was easily backed out of the skin)
[2023-12-16] MEDS: TET/DIPHTH/PERT-ADULT 0.5ML SYRINGE 0.5 ML IM (15:20)
[2023-12-16 15:31] VITALS: BP 127/67; PULSE 85; RESP 18; TEMP 36.7; O2SAT 100
== END 2023-12-16 15:31 | disposition home or self-care (01) ==
PROVIDERS: Emergency Provider Nurse Practitioner Family; PCP Family Medicine
DX: S60.551A Superficial foreign body of right hand, initial encounter (principal); W45.8XXA Other foreign body or object entering through skin, initial encounter; Z23 Encounter for immunization
CPT/HCPCS: 10120; 90471; 90715; 99213; 99214; G0463

== ENCOUNTER 2023-12-21 11:11 | Outpatient (CLI) | payer MEDICARE, OTHER, SELFPAY ==
[2023-12-21 11:17] VITALS: BMI 29.5
[2023-12-21 11:37] LABS: Basophils % 1.4 % (0.1-2.0); Eosinophils # 0.2 K/mm3 (0.0-0.4); Eosinophils % 7.2 % (0.1-12.0); Hematocrit 41.4 % (37.0-47.0); Lymphocytes # 0.5 K/mm3 (0.7-4.5); Lymphocytes % 18.6 % (10-50); Mean Corpuscular HGB Conc 31.4 g/dL (31.8-35.4); Mean Corpuscular Hemoglobin 35.9 pg (27.0-31.2); Mean Corpuscular Volume 114.3 fl (81-99); Mean Platelet Volume 9.1 fl (7.4-10.4); Monocytes # 0.2 K/mm3 (0.1-1.0); Monocytes % 6.2 % (1.7-9.3); Neutrophils # 1.9 K/mm3 (1.8-7.8); Neutrophils % 66.5 % (37.0-80.0); Platelet Count 220 K/mm3 (142-424); Red Blood Count 3.63 M/mm3 (4.20-5.40); Red Cell Distribution Width 16.3 % (11.5-17.5); White Blood Count 2.8 K/mm3 (4.8-10.8)
[2023-12-21] MEDS: SODIUM CHLORIDE 0.9% 10ML FLUSH SYRINGE 10 ML IV (11:37)
[2023-12-21 11:47] LABS: Alanine Aminotransferase 82 U/L (12-78); Albumin Level 3.9 g/dl (3.5-5.0); Albumin/Globulin Ratio 1.3 (1.1-1.8); Alkaline Phosphatase 131 U/L (38-126); Anion Gap 13.9 mEq/L (5-15); Aspartate Amino Transferase 61 U/L (14-36); Bilirubin,Total 0.6 mg/dl (0.2-1.3); Blood Urea Nitrogen 18 mg/dl (7-17); Calcium 9.4 mg/dl (8.4-10.2); Carbon Dioxide 25 mmol/L (22.0-30.0); Chloride 105 mmol/L (98-107); Creatinine Clearance Estimated 55 mL/min (50-200); Estimated Glomerular Filt Rate 61 ml/min (>60); GFR (African American) 73 ML/MIN (>60); Globulin 2.9 g/dL (1.3-3.2); Glucose 99 mg/dl (74-100); Potassium 3.9 mmoL/L (3.5-5.1); Sodium 140 mmol/L (136-145); Total Protein,Serum 6.8 g/dl (6.3-8.2)
== END 2023-12-21 11:35 | disposition home or self-care (01) ==
LOC: INF 11:13
PROVIDERS: PCP Family Medicine; Visit Provider Obstetrics & Gynecology
DX: C57.00 Malignant neoplasm of unspecified fallopian tube (principal)
CPT/HCPCS: 36591; 80053; 85025; J1642

== ENCOUNTER 2024-01-03 11:17 | Outpatient (CLI) | payer MEDICARE, OTHER, SELFPAY ==
[2024-01-03 11:21] VITALS: BMI 29.5
[2024-01-03] MEDS: SODIUM CHLORIDE 0.9% 10ML FLUSH SYRINGE 10 ML IV (11:39)
[2024-01-03 11:47] LABS: Basophils % 1.5 % (0.1-2.0); Eosinophils # 0.2 K/mm3 (0.0-0.4); Hematocrit 40.8 % (37.0-47.0); Hemoglobin 13.1 g/dL (12.2-16.2); Lymphocytes # 0.6 K/mm3 (0.7-4.5); Lymphocytes % 22.9 % (10-50); Mean Corpuscular Hemoglobin 35.6 pg (27.0-31.2); Mean Corpuscular Volume 111.3 fl (81-99); Mean Platelet Volume 8.4 fl (7.4-10.4); Monocytes # 0.2 K/mm3 (0.1-1.0); Monocytes % 6.3 % (1.7-9.3); Neutrophils # 1.7 K/mm3 (1.8-7.8); Neutrophils % 61.3 % (37.0-80.0); Platelet Count 198 K/mm3 (142-424); Red Blood Count 3.67 M/mm3 (4.20-5.40); Red Cell Distribution Width 16.3 % (11.5-17.5); White Blood Count 2.8 K/mm3 (4.8-10.8)
[2024-01-03 11:49] LABS: Chloride 102 mmol/L (98-107); Potassium 4.1 mmoL/L (3.5-5.1); Sodium 136 mmol/L (136-145)
[2024-01-03 11:51] LABS: Blood Urea Nitrogen 26 mg/dl (7-17); Creatinine Clearance Estimated 55 mL/min (50-200); Estimated Glomerular Filt Rate 54 ml/min (>60); GFR (African American) 65 ML/MIN (>60)
[2024-01-03 11:52] LABS: Alanine Aminotransferase 69 U/L (12-78); Albumin Level 3.8 g/dl (3.5-5.0); Albumin/Globulin Ratio 1.3 (1.1-1.8); Alkaline Phosphatase 134 U/L (38-126); Anion Gap 10.1 mEq/L (5-15); Aspartate Amino Transferase 52 U/L (14-36); Bilirubin,Total 0.5 mg/dl (0.2-1.3); Calcium 9.9 mg/dl (8.4-10.2); Carbon Dioxide 28 mmol/L (22.0-30.0); Glucose 89 mg/dl (74-100); Total Protein,Serum 6.8 g/dl (6.3-8.2)
== END 2024-01-03 11:39 | disposition home or self-care (01) ==
LOC: INF 11:18
PROVIDERS: PCP Family Medicine; Visit Provider Obstetrics & Gynecology
DX: C57.00 Malignant neoplasm of unspecified fallopian tube (principal); Z79.01 Long term (current) use of anticoagulants
CPT/HCPCS: 36591; 80053; 85025; J1642

== ENCOUNTER 2024-01-10 11:30 | Outpatient (CLI) | payer MEDICARE, OTHER, SELFPAY ==
[2024-01-10 11:34] VITALS: BMI 29.5
[2024-01-10 11:55] LABS: Basophils # 0.1 K/mm3 (0-0.2); Basophils % 1.6 % (0.1-2.0); Eosinophils # 0.3 K/mm3 (0.0-0.4); Hematocrit 40.6 % (37.0-47.0); Hemoglobin 12.9 g/dL (12.2-16.2); Lymphocytes # 0.5 K/mm3 (0.7-4.5); Lymphocytes % 16.7 % (10-50); Mean Corpuscular HGB Conc 31.7 g/dL (31.8-35.4); Mean Corpuscular Hemoglobin 35.8 pg (27.0-31.2); Mean Corpuscular Volume 112.7 fl (81-99); Mean Platelet Volume 9.7 fl (7.4-10.4); Monocytes # 0.2 K/mm3 (0.1-1.0); Monocytes % 6.7 % (1.7-9.3); Neutrophils # 2.1 K/mm3 (1.8-7.8); Platelet Count 175 K/mm3 (142-424); Red Cell Distribution Width 16.5 % (11.5-17.5); White Blood Count 3.1 K/mm3 (4.8-10.8)
[2024-01-10 12:07] LABS: Chloride 107 mmol/L (98-107); Potassium 4.3 mmoL/L (3.5-5.1); Sodium 140 mmol/L (136-145)
[2024-01-10 12:10] LABS: Alanine Aminotransferase 142 U/L (12-78); Albumin Level 3.7 g/dl (3.5-5.0); Albumin/Globulin Ratio 1.3 (1.1-1.8); Alkaline Phosphatase 177 U/L (38-126); Anion Gap 11.3 mEq/L (5-15); Aspartate Amino Transferase 122 U/L (14-36); Bilirubin,Total 0.5 mg/dl (0.2-1.3); Blood Urea Nitrogen 20 mg/dl (7-17); Carbon Dioxide 26 mmol/L (22.0-30.0); Creatinine Clearance Estimated 55 mL/min (50-200); Estimated Glomerular Filt Rate 61 ml/min (>60); GFR (African American) 73 ML/MIN (>60); Globulin 2.9 g/dL (1.3-3.2); Total Protein,Serum 6.6 g/dl (6.3-8.2)
[2024-01-10 12:11] LABS: Calcium 9.5 mg/dl (8.4-10.2); Glucose 92 mg/dl (74-100)
[2024-01-10] MEDS: SODIUM CHLORIDE 0.9% 10ML FLUSH SYRINGE 10 ML IV (12:14)
== END 2024-01-10 11:50 | disposition home or self-care (01) ==
LOC: INF 11:31
PROVIDERS: PCP Family Medicine; Visit Provider Obstetrics & Gynecology
DX: C57.00 Malignant neoplasm of unspecified fallopian tube (principal); Z79.01 Long term (current) use of anticoagulants
CPT/HCPCS: 36591; 80053; 85025; J1642

== ENCOUNTER 2024-01-24 11:13 | Outpatient (CLI) | payer MEDICARE, OTHER, SELFPAY ==
[2024-01-24 11:19] VITALS: BMI 29.5
[2024-01-24 11:48] LABS: Chloride 107 mmol/L (98-107); Sodium 139 mmol/L (136-145)
[2024-01-24 11:49] LABS: Potassium 4.2 mmoL/L (3.5-5.1)
[2024-01-24] MEDS: SODIUM CHLORIDE 0.9% 10ML FLUSH SYRINGE 10 ML IV (11:50)
[2024-01-24 11:51] LABS: Alanine Aminotransferase 126 U/L (12-78); Albumin Level 3.7 g/dl (3.5-5.0); Albumin/Globulin Ratio 1.2 (1.1-1.8); Alkaline Phosphatase 170 U/L (38-126); Anion Gap 10.2 mEq/L (5-15); Aspartate Amino Transferase 105 U/L (14-36); Bilirubin,Total 0.5 mg/dl (0.2-1.3); Blood Urea Nitrogen 22 mg/dl (7-17); Carbon Dioxide 26 mmol/L (22.0-30.0); Creatinine Clearance Estimated 55 mL/min (50-200); Estimated Glomerular Filt Rate 61 ml/min (>60); GFR (African American) 73 ML/MIN (>60); Total Protein,Serum 6.7 g/dl (6.3-8.2)
[2024-01-24 11:52] LABS: Calcium 9.5 mg/dl (8.4-10.2); Cholesterol 214 mg/dl (140-200); Glucose 92 mg/dl (74-100); HDL Cholesterol 54 mg/dl (40-60); Triglycerides 176 mg/dl (30-150); VLDL Cholesterol 35 mg/dL (0-40)
[2024-01-24 12:03] LABS: Direct LDL Cholesterol 93.11 mg/dL (100-129)
[2024-01-24 12:10] LABS: Basophils % 1.6 % (0.1-2.0); Eosinophils # 0.2 K/mm3 (0.0-0.4); Eosinophils % 8.8 % (0.1-12.0); Hematocrit 42.2 % (37.0-47.0); Hemoglobin 12.9 g/dL (12.2-16.2); Lymphocytes # 0.5 K/mm3 (0.7-4.5); Mean Corpuscular HGB Conc 30.5 g/dL (31.8-35.4); Mean Corpuscular Hemoglobin 35.2 pg (27.0-31.2); Mean Corpuscular Volume 115.3 fl (81-99); Mean Platelet Volume 8.2 fl (7.4-10.4); Monocytes # 0.2 K/mm3 (0.1-1.0); Neutrophils # 1.6 K/mm3 (1.8-7.8); Neutrophils % 63.6 % (37.0-80.0); Platelet Count 190 K/mm3 (142-424); Red Blood Count 3.66 M/mm3 (4.20-5.40); Red Cell Distribution Width 16.5 % (11.5-17.5); White Blood Count 2.5 K/mm3 (4.8-10.8)
[2024-01-24 13:06] LABS: 25-OH Vitamin D, Total 52.3 ng/mL (30-100)
== END 2024-01-24 11:48 | disposition home or self-care (01) ==
LOC: INF 11:14
PROVIDERS: PCP Family Medicine; Visit Provider Obstetrics & Gynecology
DX: E55.9 Vitamin D deficiency, unspecified (principal); E78.5 Hyperlipidemia, unspecified; C57.00 Malignant neoplasm of unspecified fallopian tube; I10 Essential (primary) hypertension; Z87.891 Personal history of nicotine dependence; Z79.01 Long term (current) use of anticoagulants
CPT/HCPCS: 36591; 80053; 80061; 82306; 85025; J1642

== ENCOUNTER 2024-01-31 11:15 | Outpatient (CLI) | payer MEDICARE, OTHER, SELFPAY ==
[2024-01-31] MEDS: SODIUM CHLORIDE 0.9% 10ML FLUSH SYRINGE 10 ML IV (11:20)
[2024-01-31 11:23] VITALS: BMI 29.5
[2024-01-31 11:32] LABS: Basophils % 1.2 % (0.1-2.0); Eosinophils # 0.2 K/mm3 (0.0-0.4); Hematocrit 40.7 % (37.0-47.0); Hemoglobin 12.9 g/dL (12.2-16.2); Lymphocytes # 0.5 K/mm3 (0.7-4.5); Mean Corpuscular HGB Conc 31.8 g/dL (31.8-35.4); Mean Corpuscular Hemoglobin 36.2 pg (27.0-31.2); Mean Corpuscular Volume 113.9 fl (81-99); Mean Platelet Volume 9.9 fl (7.4-10.4); Monocytes # 0.2 K/mm3 (0.1-1.0); Monocytes % 5.8 % (1.7-9.3); Platelet Count 194 K/mm3 (142-424); Red Blood Count 3.58 M/mm3 (4.20-5.40); Red Cell Distribution Width 16.1 % (11.5-17.5)
[2024-01-31 11:43] LABS: Chloride 109 mmol/L (98-107); Potassium 4.1 mmoL/L (3.5-5.1); Sodium 139 mmol/L (136-145)
[2024-01-31 11:45] LABS: Blood Urea Nitrogen 21 mg/dl (7-17); Creatinine Clearance Estimated 55 mL/min (50-200); Estimated Glomerular Filt Rate 61 ml/min (>60); GFR (African American) 73 ML/MIN (>60)
[2024-01-31 11:46] LABS: Alanine Aminotransferase 63 U/L (12-78); Albumin Level 4.1 g/dl (3.5-5.0); Albumin/Globulin Ratio 1.4 (1.1-1.8); Alkaline Phosphatase 120 U/L (38-126); Anion Gap 8.1 mEq/L (5-15); Aspartate Amino Transferase 47 U/L (14-36); Bilirubin,Total 0.5 mg/dl (0.2-1.3); Calcium 9.3 mg/dl (8.4-10.2); Carbon Dioxide 26 mmol/L (22.0-30.0); Globulin 2.9 g/dL (1.3-3.2); Glucose 100 mg/dl (74-100)
== END 2024-01-31 11:32 | disposition home or self-care (01) ==
LOC: INF 11:16
PROVIDERS: PCP Family Medicine; Visit Provider Obstetrics & Gynecology
DX: C57.00 Malignant neoplasm of unspecified fallopian tube (principal); Z79.01 Long term (current) use of anticoagulants
CPT/HCPCS: 36591; 80053; 85025; J1642

== ENCOUNTER 2024-02-14 11:18 | Outpatient (CLI) | payer MEDICARE, OTHER, SELFPAY ==
[2024-02-14 11:26] VITALS: BMI 29.5
[2024-02-14] MEDS: SODIUM CHLORIDE 0.9% 10ML FLUSH SYRINGE 10 ML IV (11:30)
[2024-02-14 11:43] LABS: Basophils % 1.4 % (0.1-2.0); Eosinophils # 0.3 K/mm3 (0.0-0.4); Eosinophils % 9.2 % (0.1-12.0); Hematocrit 40.7 % (37.0-47.0); Hemoglobin 12.9 g/dL (12.2-16.2); Lymphocytes # 0.5 K/mm3 (0.7-4.5); Mean Corpuscular HGB Conc 31.7 g/dL (31.8-35.4); Mean Corpuscular Hemoglobin 35.3 pg (27.0-31.2); Mean Corpuscular Volume 111.5 fl (81-99); Mean Platelet Volume 8.7 fl (7.4-10.4); Monocytes # 0.2 K/mm3 (0.1-1.0); Monocytes % 6.6 % (1.7-9.3); Neutrophils # 2.1 K/mm3 (1.8-7.8); Neutrophils % 65.7 % (37.0-80.0); Platelet Count 158 K/mm3 (142-424); Red Blood Count 3.65 M/mm3 (4.20-5.40); Red Cell Distribution Width 16.2 % (11.5-17.5); White Blood Count 3.2 K/mm3 (4.8-10.8)
[2024-02-14 11:46] LABS: Chloride 107 mmol/L (98-107)
[2024-02-14 11:47] LABS: Sodium 141 mmol/L (136-145)
[2024-02-14 11:49] LABS: Alanine Aminotransferase 55 U/L (12-78); Alkaline Phosphatase 122 U/L (38-126); Aspartate Amino Transferase 40 U/L (14-36); Bilirubin,Total 0.5 mg/dl (0.2-1.3); Blood Urea Nitrogen 27 mg/dl (7-17); Creatinine Clearance Estimated 50 mL/min (50-200); Estimated Glomerular Filt Rate 48 ml/min (>60); GFR (African American) 58 ML/MIN (>60)
[2024-02-14 11:50] LABS: Albumin Level 3.9 g/dl (3.5-5.0); Albumin/Globulin Ratio 1.3 (1.1-1.8); Calcium 9.5 mg/dl (8.4-10.2); Carbon Dioxide 27 mmol/L (22.0-30.0); Glucose 104 mg/dl (74-100); Total Protein,Serum 6.9 g/dl (6.3-8.2)
== END 2024-02-14 11:40 | disposition home or self-care (01) ==
LOC: INF 11:21
PROVIDERS: PCP Family Medicine; Visit Provider Obstetrics & Gynecology
DX: C57.00 Malignant neoplasm of unspecified fallopian tube (principal); Z79.01 Long term (current) use of anticoagulants
CPT/HCPCS: 36591; 80053; 85025; J1642

== ENCOUNTER 2024-02-21 11:22 | Outpatient (CLI) | payer MEDICARE, OTHER, SELFPAY ==
[2024-02-21 11:29] VITALS: BMI 29.5
[2024-02-21] MEDS: SODIUM CHLORIDE 0.9% 10ML FLUSH SYRINGE 10 ML IV (11:52)
[2024-02-21 12:02] LABS: Basophils # 0.1 K/mm3 (0-0.2); Basophils % 1.4 % (0.1-2.0); Eosinophils # 0.2 K/mm3 (0.0-0.4); Eosinophils % 5.8 % (0.1-12.0); Hematocrit 39.8 % (37.0-47.0); Hemoglobin 12.7 g/dL (12.2-16.2); Lymphocytes # 0.6 K/mm3 (0.7-4.5); Lymphocytes % 17.5 % (10-50); Mean Corpuscular HGB Conc 31.9 g/dL (31.8-35.4); Mean Corpuscular Hemoglobin 36.3 pg (27.0-31.2); Mean Corpuscular Volume 113.9 fl (81-99); Mean Platelet Volume 8.7 fl (7.4-10.4); Monocytes # 0.2 K/mm3 (0.1-1.0); Monocytes % 4.8 % (1.7-9.3); Neutrophils # 2.3 K/mm3 (1.8-7.8); Neutrophils % 70.5 % (37.0-80.0); Platelet Count 184 K/mm3 (142-424); Red Cell Distribution Width 16.3 % (11.5-17.5); White Blood Count 3.2 K/mm3 (4.8-10.8)
[2024-02-21 12:20] LABS: Chloride 110 mmol/L (98-107); Potassium 4.3 mmoL/L (3.5-5.1); Sodium 138 mmol/L (136-145)
[2024-02-21 12:23] LABS: Alanine Aminotransferase 165 U/L (12-78); Albumin Level 3.7 g/dl (3.5-5.0); Albumin/Globulin Ratio 1.2 (1.1-1.8); Alkaline Phosphatase 201 U/L (38-126); Anion Gap 7.3 mEq/L (5-15); Aspartate Amino Transferase 145 U/L (14-36); Bilirubin,Total 0.6 mg/dl (0.2-1.3); Blood Urea Nitrogen 18 mg/dl (7-17); Calcium 8.9 mg/dl (8.4-10.2); Carbon Dioxide 25 mmol/L (22.0-30.0); Creatinine Clearance Estimated 55 mL/min (50-200); Estimated Glomerular Filt Rate 69 ml/min (>60); GFR (African American) 84 ML/MIN (>60); Glucose 85 mg/dl (74-100); Total Protein,Serum 6.7 g/dl (6.3-8.2)
== END 2024-02-21 11:53 | disposition home or self-care (01) ==
LOC: INF 11:23
PROVIDERS: PCP Family Medicine; Visit Provider Obstetrics & Gynecology
DX: C57.00 Malignant neoplasm of unspecified fallopian tube (principal); Z79.01 Long term (current) use of anticoagulants
CPT/HCPCS: 36591; 80053; 85025; J1642

== ENCOUNTER 2024-03-06 11:20 | Outpatient (CLI) | payer MEDICARE, OTHER, SELFPAY ==
[2024-03-06] MEDS: SODIUM CHLORIDE 0.9% 10ML FLUSH SYRINGE 10 ML IV (11:30)
[2024-03-06 13:07] VITALS: BMI 29.5
[2024-03-06 13:15] LABS: Basophils % 0.9 % (0.1-2.0); Eosinophils # 0.2 K/mm3 (0.0-0.4); Eosinophils % 6.1 % (0.1-12.0); Hematocrit 38.8 % (37.0-47.0); Hemoglobin 12.3 g/dL (12.2-16.2); Lymphocytes # 0.4 K/mm3 (0.7-4.5); Lymphocytes % 13.9 % (10-50); Mean Corpuscular HGB Conc 31.6 g/dL (31.8-35.4); Mean Corpuscular Hemoglobin 36.1 pg (27.0-31.2); Mean Corpuscular Volume 114.3 fl (81-99); Mean Platelet Volume 8.4 fl (7.4-10.4); Monocytes # 0.1 K/mm3 (0.1-1.0); Monocytes % 4.6 % (1.7-9.3); Neutrophils % 74.3 % (37.0-80.0); Platelet Count 150 K/mm3 (142-424); Red Cell Distribution Width 16.4 % (11.5-17.5); White Blood Count 2.6 K/mm3 (4.8-10.8)
[2024-03-06 13:16] LABS: Albumin Level 3.5 g/dl (3.5-5.0); Chloride 110 mmol/L (98-107); Potassium 3.8 mmoL/L (3.5-5.1); Sodium 140 mmol/L (136-145)
[2024-03-06 13:19] LABS: Alanine Aminotransferase 86 U/L (12-78); Albumin/Globulin Ratio 1.3 (1.1-1.8); Alkaline Phosphatase 141 U/L (38-126); Anion Gap 9.8 mEq/L (5-15); Aspartate Amino Transferase 81 U/L (14-36); Bilirubin,Total 0.7 mg/dl (0.2-1.3); Blood Urea Nitrogen 23 mg/dl (7-17); Calcium 8.3 mg/dl (8.4-10.2); Carbon Dioxide 24 mmol/L (22.0-30.0); Creatinine Clearance Estimated 55 mL/min (50-200); Estimated Glomerular Filt Rate 61 ml/min (>60); GFR (African American) 73 ML/MIN (>60); Globulin 2.8 g/dL (1.3-3.2); Glucose 154 mg/dl (74-100); Total Protein,Serum 6.3 g/dl (6.3-8.2)
== END 2024-03-06 11:38 | disposition home or self-care (01) ==
LOC: INF 11:21
PROVIDERS: PCP Family Medicine; Visit Provider Obstetrics & Gynecology
DX: C56.9 Malignant neoplasm of unspecified ovary (principal)
CPT/HCPCS: 36591; 80053; 85025; J1642

== ENCOUNTER 2024-03-13 11:33 | Outpatient (CLI) | payer MEDICARE, OTHER, SELFPAY ==
[2024-03-13 11:41] VITALS: BMI 29.5
[2024-03-13] MEDS: SODIUM CHLORIDE 0.9% 10ML FLUSH SYRINGE 10 ML IV (11:45)
[2024-03-13 11:57] LABS: Basophils # 0.1 K/mm3 (0-0.2); Basophils % 1.6 % (0.1-2.0); Eosinophils # 0.2 K/mm3 (0.0-0.4); Eosinophils % 7.2 % (0.1-12.0); Hematocrit 42.4 % (37.0-47.0); Hemoglobin 13.1 g/dL (12.2-16.2); Lymphocytes # 0.5 K/mm3 (0.7-4.5); Lymphocytes % 16.7 % (10-50); Mean Corpuscular HGB Conc 30.9 g/dL (31.8-35.4); Mean Corpuscular Hemoglobin 35.7 pg (27.0-31.2); Mean Corpuscular Volume 115.4 fl (81-99); Mean Platelet Volume 9.1 fl (7.4-10.4); Monocytes # 0.2 K/mm3 (0.1-1.0); Monocytes % 6.2 % (1.7-9.3); Neutrophils % 68.3 % (37.0-80.0); Platelet Count 178 K/mm3 (142-424); Red Blood Count 3.67 M/mm3 (4.20-5.40); White Blood Count 2.9 K/mm3 (4.8-10.8)
[2024-03-13 12:13] LABS: Chloride 108 mmol/L (98-107)
[2024-03-13 12:14] LABS: Potassium 4.3 mmoL/L (3.5-5.1); Sodium 138 mmol/L (136-145)
[2024-03-13 12:16] LABS: Alanine Aminotransferase 42 U/L (12-78); Anion Gap 8.3 mEq/L (5-15); Aspartate Amino Transferase 38 U/L (14-36); Blood Urea Nitrogen 28 mg/dl (7-17); Carbon Dioxide 26 mmol/L (22.0-30.0); Creatinine Clearance Estimated 55 mL/min (50-200); Estimated Glomerular Filt Rate 54 ml/min (>60); GFR (African American) 65 ML/MIN (>60)
[2024-03-13 12:17] LABS: Albumin/Globulin Ratio 1.4 (1.1-1.8); Alkaline Phosphatase 105 U/L (38-126); Bilirubin,Total 0.6 mg/dl (0.2-1.3); Calcium 9.4 mg/dl (8.4-10.2); Globulin 2.8 g/dL (1.3-3.2); Glucose 85 mg/dl (74-100); Total Protein,Serum 6.8 g/dl (6.3-8.2)
== END 2024-03-13 11:47 | disposition home or self-care (01) ==
LOC: INF 11:34
PROVIDERS: PCP Family Medicine; Visit Provider Obstetrics & Gynecology
DX: C57.00 Malignant neoplasm of unspecified fallopian tube (principal)
CPT/HCPCS: 36591; 80053; 85025; J1642

== ENCOUNTER 2024-03-27 11:24 | Outpatient (CLI) | payer MEDICARE, OTHER, SELFPAY ==
[2024-03-27 11:30] VITALS: BMI 29.5
[2024-03-27] MEDS: SODIUM CHLORIDE 0.9% 10ML FLUSH SYRINGE 10 ML IV (11:48)
[2024-03-27 11:52] LABS: Basophils % 0.8 % (0.1-2.0); Eosinophils # 0.3 K/mm3 (0.0-0.4); Eosinophils % 8.3 % (0.1-12.0); Hematocrit 41.7 % (37.0-47.0); Hemoglobin 12.9 g/dL (12.2-16.2); Lymphocytes # 0.5 K/mm3 (0.7-4.5); Lymphocytes % 14.1 % (10-50); Mean Corpuscular Hemoglobin 35.1 pg (27.0-31.2); Mean Corpuscular Volume 113.3 fl (81-99); Mean Platelet Volume 8.6 fl (7.4-10.4); Monocytes # 0.2 K/mm3 (0.1-1.0); Monocytes % 5.3 % (1.7-9.3); Neutrophils # 2.3 K/mm3 (1.8-7.8); Neutrophils % 71.4 % (37.0-80.0); Platelet Count 161 K/mm3 (142-424); Red Blood Count 3.68 M/mm3 (4.20-5.40); White Blood Count 3.3 K/mm3 (4.8-10.8)
[2024-03-27 12:04] LABS: Albumin Level 3.8 g/dl (3.5-5.0); Chloride 109 mmol/L (98-107); Potassium 4.2 mmoL/L (3.5-5.1); Sodium 138 mmol/L (136-145)
[2024-03-27 12:07] LABS: Alanine Aminotransferase 28 U/L (12-78); Albumin/Globulin Ratio 1.4 (1.1-1.8); Alkaline Phosphatase 73 U/L (38-126); Anion Gap 8.2 mEq/L (5-15); Aspartate Amino Transferase 40 U/L (14-36); Bilirubin,Total 0.5 mg/dl (0.2-1.3); Blood Urea Nitrogen 21 mg/dl (7-17); Calcium 8.9 mg/dl (8.4-10.2); Carbon Dioxide 25 mmol/L (22.0-30.0); Creatinine Clearance Estimated 55 mL/min (50-200); Estimated Glomerular Filt Rate 69 ml/min (>60); GFR (African American) 84 ML/MIN (>60); Globulin 2.8 g/dL (1.3-3.2); Glucose 101 mg/dl (74-100); Total Protein,Serum 6.6 g/dl (6.3-8.2)
== END 2024-03-27 23:59 | disposition home or self-care (01) ==
LOC: INF 11:25
PROVIDERS: PCP Family Medicine; Visit Provider Obstetrics & Gynecology
DX: C56.9 Malignant neoplasm of unspecified ovary (principal)
CPT/HCPCS: 36591; 80053; 85025; J1642

== ENCOUNTER 2024-04-03 11:27 | Outpatient (CLI) | payer MEDICARE, OTHER, SELFPAY ==
[2024-04-03 11:32] VITALS: BMI 29.5
[2024-04-03] MEDS: SODIUM CHLORIDE 0.9% 10ML FLUSH SYRINGE 10 ML IV (11:40)
[2024-04-03 11:50] LABS: Basophils # 0.1 K/mm3 (0-0.2); Basophils % 1.4 % (0.1-2.0); Eosinophils # 0.3 K/mm3 (0.0-0.4); Eosinophils % 7.8 % (0.1-12.0); Hematocrit 41.7 % (37.0-47.0); Lymphocytes # 0.4 K/mm3 (0.7-4.5); Lymphocytes % 12.7 % (10-50); Mean Corpuscular HGB Conc 31.1 g/dL (31.8-35.4); Mean Corpuscular Hemoglobin 35.5 pg (27.0-31.2); Mean Platelet Volume 9.6 fl (7.4-10.4); Monocytes # 0.2 K/mm3 (0.1-1.0); Neutrophils # 2.4 K/mm3 (1.8-7.8); Neutrophils % 72.2 % (37.0-80.0); Platelet Count 162 K/mm3 (142-424); Red Blood Count 3.66 M/mm3 (4.20-5.40); Red Cell Distribution Width 15.9 % (11.5-17.5); White Blood Count 3.3 K/mm3 (4.8-10.8)
[2024-04-03 11:51] LABS: Albumin Level 3.8 g/dl (3.5-5.0); Chloride 107 mmol/L (98-107); Sodium 137 mmol/L (136-145)
[2024-04-03 11:53] LABS: Alanine Aminotransferase 33 U/L (12-78); Aspartate Amino Transferase 37 U/L (14-36); Blood Urea Nitrogen 26 mg/dl (7-17); Carbon Dioxide 27 mmol/L (22.0-30.0); Creatinine Clearance Estimated 55 mL/min (50-200); Estimated Glomerular Filt Rate 61 ml/min (>60); GFR (African American) 73 ML/MIN (>60)
[2024-04-03 11:54] LABS: Albumin/Globulin Ratio 1.4 (1.1-1.8); Alkaline Phosphatase 68 U/L (38-126); Bilirubin,Total 0.6 mg/dl (0.2-1.3); Calcium 9.1 mg/dl (8.4-10.2); Globulin 2.8 g/dL (1.3-3.2); Glucose 101 mg/dl (74-100); Total Protein,Serum 6.6 g/dl (6.3-8.2)
== END 2024-04-03 11:45 | disposition home or self-care (01) ==
LOC: INF 11:29
PROVIDERS: PCP Family Medicine; Visit Provider Obstetrics & Gynecology
DX: C57.00 Malignant neoplasm of unspecified fallopian tube (principal)
CPT/HCPCS: 36591; 80053; 85025; J1642

== ENCOUNTER 2024-04-17 11:20 | Outpatient (CLI) | payer MEDICARE, OTHER, SELFPAY ==
[2024-04-17 11:27] VITALS: BMI 29.5
[2024-04-17 11:45] LABS: Basophils % 0.9 % (0.1-2.0); Eosinophils # 0.2 K/mm3 (0.0-0.4); Hematocrit 42.9 % (37.0-47.0); Hemoglobin 13.4 g/dL (12.2-16.2); Lymphocytes # 0.6 K/mm3 (0.7-4.5); Lymphocytes % 17.3 % (10-50); Mean Corpuscular HGB Conc 31.2 g/dL (31.8-35.4); Mean Corpuscular Hemoglobin 35.6 pg (27.0-31.2); Mean Corpuscular Volume 114.2 fl (81-99); Mean Platelet Volume 8.2 fl (7.4-10.4); Monocytes # 0.2 K/mm3 (0.1-1.0); Monocytes % 6.8 % (1.7-9.3); Neutrophils # 2.2 K/mm3 (1.8-7.8); Platelet Count 214 K/mm3 (142-424); Red Blood Count 3.76 M/mm3 (4.20-5.40); Red Cell Distribution Width 16.2 % (11.5-17.5); White Blood Count 3.3 K/mm3 (4.8-10.8)
[2024-04-17 11:47] LABS: Chloride 107 mmol/L (98-107)
[2024-04-17 11:48] LABS: Albumin Level 4.1 g/dl (3.5-5.0); Potassium 3.9 mmoL/L (3.5-5.1); Sodium 138 mmol/L (136-145)
[2024-04-17 11:51] LABS: Alanine Aminotransferase 30 U/L (12-78); Albumin/Globulin Ratio 1.4 (1.1-1.8); Alkaline Phosphatase 87 U/L (38-126); Anion Gap 9.9 mEq/L (5-15); Aspartate Amino Transferase 32 U/L (14-36); Bilirubin,Total 0.8 mg/dl (0.2-1.3); Blood Urea Nitrogen 24 mg/dl (7-17); Calcium 9.3 mg/dl (8.4-10.2); Carbon Dioxide 25 mmol/L (22.0-30.0); Creatinine Clearance Estimated 55 mL/min (50-200); Estimated Glomerular Filt Rate 61 ml/min (>60); GFR (African American) 73 ML/MIN (>60); Globulin 2.9 g/dL (1.3-3.2); Glucose 101 mg/dl (74-100)
== END 2024-04-17 11:39 | disposition home or self-care (01) ==
LOC: INF 11:22
PROVIDERS: PCP Family Medicine; Visit Provider Obstetrics & Gynecology
DX: C56.9 Malignant neoplasm of unspecified ovary (principal)
CPT/HCPCS: 36591; 80053; 85025; J1642

== ENCOUNTER 2024-04-24 11:46 | Outpatient (CLI) | payer MEDICARE, OTHER, SELFPAY ==
[2024-04-24 11:55] VITALS: BMI 29.5
[2024-04-24] MEDS: SODIUM CHLORIDE 0.9% 10ML FLUSH SYRINGE 10 ML IV (12:05)
[2024-04-24 12:11] LABS: Eosinophils # 0.2 K/mm3 (0.0-0.4); Eosinophils % 7.3 % (0.1-12.0); Hematocrit 40.6 % (37.0-47.0); Hemoglobin 12.7 g/dL (12.2-16.2); Lymphocytes # 0.5 K/mm3 (0.7-4.5); Lymphocytes % 20.2 % (10-50); Mean Corpuscular HGB Conc 31.3 g/dL (31.8-35.4); Mean Corpuscular Volume 114.7 fl (81-99); Monocytes # 0.2 K/mm3 (0.1-1.0); Monocytes % 7.2 % (1.7-9.3); Neutrophils # 1.7 K/mm3 (1.8-7.8); Neutrophils % 64.2 % (37.0-80.0); Platelet Count 158 K/mm3 (142-424); Red Blood Count 3.54 M/mm3 (4.20-5.40); Red Cell Distribution Width 17.1 % (11.5-17.5); White Blood Count 2.6 K/mm3 (4.8-10.8)
[2024-04-24 12:12] LABS: Albumin Level 3.8 g/dl (3.5-5.0); Chloride 111 mmol/L (98-107)
[2024-04-24 12:13] LABS: Potassium 3.9 mmoL/L (3.5-5.1); Sodium 139 mmol/L (136-145)
[2024-04-24 12:15] LABS: Alanine Aminotransferase 24 U/L (12-78); Anion Gap 5.9 mEq/L (5-15); Aspartate Amino Transferase 34 U/L (14-36); Blood Urea Nitrogen 19 mg/dl (7-17); Carbon Dioxide 26 mmol/L (22.0-30.0); Creatinine Clearance Estimated 55 mL/min (50-200); Estimated Glomerular Filt Rate 69 ml/min (>60); GFR (African American) 84 ML/MIN (>60)
[2024-04-24 12:16] LABS: Albumin/Globulin Ratio 1.4 (1.1-1.8); Alkaline Phosphatase 70 U/L (38-126); Bilirubin,Total 0.6 mg/dl (0.2-1.3); Calcium 9.2 mg/dl (8.4-10.2); Globulin 2.8 g/dL (1.3-3.2); Glucose 99 mg/dl (74-100); Total Protein,Serum 6.6 g/dl (6.3-8.2)
== END 2024-04-24 12:05 | disposition home or self-care (01) ==
LOC: INF 11:47
PROVIDERS: PCP Family Medicine; Visit Provider Obstetrics & Gynecology
DX: C56.9 Malignant neoplasm of unspecified ovary (principal)
CPT/HCPCS: 36591; 80053; 85025; J1642

== ENCOUNTER 2024-05-08 11:28 | Outpatient (CLI) | payer MEDICARE, OTHER, SELFPAY ==
[2024-05-08 11:33] VITALS: BMI 29.5
[2024-05-08 11:50] LABS: Basophils # 0.1 K/mm3 (0-0.2); Basophils % 1.7 % (0.1-2.0); Eosinophils # 0.2 K/mm3 (0.0-0.4); Eosinophils % 7.7 % (0.1-12.0); Hematocrit 40.4 % (37.0-47.0); Hemoglobin 13.7 g/dL (12.2-16.2); Lymphocytes # 0.4 K/mm3 (0.7-4.5); Lymphocytes % 14.9 % (10-50); Mean Corpuscular HGB Conc 33.8 g/dL (31.8-35.4); Mean Corpuscular Hemoglobin 36.7 pg (27.0-31.2); Mean Corpuscular Volume 108.7 fl (81-99); Mean Platelet Volume 8.7 fl (7.4-10.4); Monocytes # 0.2 K/mm3 (0.1-1.0); Neutrophils # 2.1 K/mm3 (1.8-7.8); Neutrophils % 68.7 % (37.0-80.0); Platelet Count 141 K/mm3 (142-424); Red Blood Count 3.71 M/mm3 (4.20-5.40)
[2024-05-08 11:54] LABS: Albumin Level 3.9 g/dl (3.5-5.0); Chloride 106 mmol/L (98-107); Sodium 139 mmol/L (136-145)
[2024-05-08 11:57] LABS: Alanine Aminotransferase 22 U/L (12-78); Albumin/Globulin Ratio 1.3 (1.1-1.8); Alkaline Phosphatase 57 U/L (38-126); Aspartate Amino Transferase 34 U/L (14-36); Bilirubin,Total 0.6 mg/dl (0.2-1.3); Blood Urea Nitrogen 24 mg/dl (7-17); Calcium 9.4 mg/dl (8.4-10.2); Carbon Dioxide 27 mmol/L (22.0-30.0); Creatinine Clearance Estimated 55 mL/min (50-200); Estimated Glomerular Filt Rate 69 ml/min (>60); GFR (African American) 84 ML/MIN (>60); Glucose 87 mg/dl (74-100); Total Protein,Serum 6.9 g/dl (6.3-8.2)
[2024-05-08] MEDS: SODIUM CHLORIDE 0.9% 10ML FLUSH SYRINGE 10 ML IV (16:45)
== END 2024-05-08 11:50 | disposition home or self-care (01) ==
LOC: INF 11:29
PROVIDERS: PCP Family Medicine; Visit Provider Obstetrics & Gynecology
DX: C56.9 Malignant neoplasm of unspecified ovary (principal)
CPT/HCPCS: 36591; 80053; 85025; J1642

== ENCOUNTER 2024-05-15 11:34 | Outpatient (CLI) | payer MEDICARE, OTHER, SELFPAY ==
[2024-05-15] MEDS: SODIUM CHLORIDE 0.9% 10ML FLUSH SYRINGE 10 ML IV (11:40)
[2024-05-15 11:42] VITALS: BMI 29.5
[2024-05-15 12:01] LABS: Basophils # 0.1 K/mm3 (0-0.2); Basophils % 1.9 % (0.1-2.0); Eosinophils # 0.2 K/mm3 (0.0-0.4); Hematocrit 39.5 % (37.0-47.0); Hemoglobin 13.2 g/dL (12.2-16.2); Lymphocytes # 0.5 K/mm3 (0.7-4.5); Lymphocytes % 17.1 % (10-50); Mean Corpuscular HGB Conc 33.3 g/dL (31.8-35.4); Mean Corpuscular Hemoglobin 36.9 pg (27.0-31.2); Mean Corpuscular Volume 110.8 fl (81-99); Mean Platelet Volume 9.3 fl (7.4-10.4); Monocytes # 0.2 K/mm3 (0.1-1.0); Monocytes % 5.9 % (1.7-9.3); Neutrophils % 69.2 % (37.0-80.0); Platelet Count 145 K/mm3 (142-424); Red Blood Count 3.57 M/mm3 (4.20-5.40); Red Cell Distribution Width 17.1 % (11.5-17.5); White Blood Count 2.9 K/mm3 (4.8-10.8)
[2024-05-15 12:04] LABS: Albumin Level 3.9 g/dl (3.5-5.0); Chloride 107 mmol/L (98-107); Sodium 139 mmol/L (136-145)
[2024-05-15 12:07] LABS: Alanine Aminotransferase 49 U/L (12-78); Albumin/Globulin Ratio 1.3 (1.1-1.8); Alkaline Phosphatase 95 U/L (38-126); Aspartate Amino Transferase 40 U/L (14-36); Bilirubin,Total 0.6 mg/dl (0.2-1.3); Blood Urea Nitrogen 20 mg/dl (7-17); Calcium 9.5 mg/dl (8.4-10.2); Carbon Dioxide 25 mmol/L (22.0-30.0); Creatinine Clearance Estimated 55 mL/min (50-200); Estimated Glomerular Filt Rate 61 ml/min (>60); GFR (African American) 73 ML/MIN (>60); Glucose 111 mg/dl (74-100); Total Protein,Serum 6.9 g/dl (6.3-8.2)
== END 2024-05-15 11:50 | disposition home or self-care (01) ==
LOC: INF 11:36
PROVIDERS: PCP Family Medicine; Visit Provider Obstetrics & Gynecology
DX: C56.9 Malignant neoplasm of unspecified ovary (principal)
CPT/HCPCS: 36591; 80053; 85025; J1642

== ENCOUNTER 2024-05-17 12:08 | Emergency (ER) | payer MEDICARE, OTHER, SELFPAY ==
[2024-05-17] VITALS (10 sets, daily range): BP systolic 120–221; BP diastolic 64–106; PULSE 100–112; RESP 13–24; TEMP 36.8; O2SAT 92–96; BMI 29.7
--- NOTE | 2024-05-17 12:07 | ECG_ITS ---
APPROVED REPORT Exam: Resting ECG HR:117 bpm ECG Measurements Heart Rate 117 AXES WI 156 P 43 QRSd 80 QRS -8 QT 314 T 35 QTc 384 Conclusion SINUS TACHYCARDIA POSSIBLE ANTERIOR MYOCARDIAL INFARCTION , OF INDETERMINATE AGE [30 ms Q WAVE IN V3/V4, OR R < 0.2 mV IN V4] POSSIBLE INFERIOR MYOCARDIAL INFARCTION , PROBABLY OLD [30 ms Q WAVE IN II/aVF] ABNORMAL ECG UNCONFIRMED REPORT Electronically signed by : RADHA SILVEIRA, 05/19/2024 06:09:32
--- NOTE | 2024-05-17 12:20 | HMH.EDGENADL ---
Discharge Plan Disposition Patient Disposition: Xfer Short-Term Hosp Prescriptions Prescriptions: No Action anastrozole 1 MG tablet 1 mg PO DAILY potassium chloride [K-Tab] 10 MEQ tablet extended release 10 meq PO DAILY simvastatin 40 MG tablet 40 mg PO DAILY aspirin 81 MG tablet,chewable 81 mg PO DAILY furosemide 20 MG tablet 20 mg PO DAILY cholecalciferol (vitamin D3) 50,000 UNIT capsule 50,000 unit PO DAILY famotidine 20 MG tablet 20 mg PO BID ondansetron HCl 8 MG tablet 8 mg PO BID Rx Instructions: TAKE PRIOR TO CHEMO PILL BID prochlorperazine maleate 10 MG tablet 10 mg PO DAILY PRN (Reason: Nausea) cyclophosphamide 50 mg Tablet 50 mg PO HS levothyroxine [Synthroid] 75 mcg tablet 75 mcg PO DAILY Patient Comments: TAKE 1 TABLET BY MOUTH EVERY MORNING bisoprolol fumarate 5 mg Tablet 10 mg PO DAILY 30 Days Qty: 60 10RF nitroglycerin 0.4 mg tablet, sublingual 0.4 mg sublingual Q5M PRN (Reason: chest pain) Qty: 30 0RF Rx Instructions: do not exceed 3 doses per episode polymyxin B sulf-trimethoprim [Polytrim] 10,000 unit- 1 mg/mL drops 1 drp Eye-Right Q3H 7 Days Qty: 10 0RF Rx Instructions: while awake; do not exceed 6 doses in 24 hours cephalexin 500 mg capsule 500 mg PO QID 7 Days Qty: 28 0RF mupirocin 2 % ointment 1 applic topical TID 7 Days Qty: 15 0RF Referrals Follow up/Referrals: Provider,Referral, MD [Primary Care Provider] - See instructions Clinical Impressions Clinical Impression: Pancreatitis Stand Alone Forms Stand Alone Forms: Transfer Record - ED Print Language Print Language: Swedish Discharge ED Provider: Ray Gomez General Adult HPI General Chief complaint: Chest Pain Stated complaint: chest pain Time Seen by Provider: 05/17/24 12:20 History of Present Illness HPI narrative: The patient presents with a chief complaint of severe abdominal pain that started last night around 10 PM. She reports experiencing tightness initially, followed by vomiting and passing out a couple of times throughout the night. She has a history of indigestion but states that last night's episode was significantly worse. She denies throwing up any blood and does not take any blood thinners. There is a history of elevated liver enzymes, which were noted during blood work for cancer treatment. She was diagnosed with cancer 6 years ago and had a large tumor removed. Currently, she is undergoing chemotherapy through a port and takes a daily cancer pill. She was recently started on anastrozole. She denies any known history of blood clots in the lungs and has not experienced any recent travel or new leg pain or swelling. She reports chronic ankle swelling and numbness in the feet. There is no significant shortness of breath, but she has been experiencing dryness for several days. She had a fever last night, accompanied by chills and sweating. Upon examination, she reports pain in the upper abdominal area when pressure is applied. She confirms having had her gallbladder removed several years ago in the [place]. She describes her ankles as fluffy all the time and mentions experiencing numbness in the feet all the time, which is identified as neuropathy. She notes feeling dry for several days. She confirms taking a daily cancer pill and mentions being put on anastrozole a few weeks ago. She appears to have a yellowish tint to her skin, which is noted as being consistent with her lab results. Please note that above description of symptoms, in this electronic medical record under categorization of recalled from ER triage doctor by RN are reflective of an initial nursing assessment, however, is not reflective of my full history and physical exam that was personally taken and clarified. Consequentially, this preceding description of symptoms, which may include the patient's categorized chief complaint in the EMR, do not reflect my personal clinical impression, and the ultimate description of history of present illness and patient stated complaints should be deferred to this section of the note. Unless stated otherwise or congruent with this section of the note, additional signs, symptoms, or incongruence should be interpreted as inaccurate with my clinical impression. Related Data Home Medications ?Medication ?Instructions ?Recorded ?Confirmed anastrozole 1 mg tablet 1 mg PO DAILY HORMONE 01/30/18 09/20/23 aspirin 81 mg chewable tablet 81 mg PO DAILY BLOOD THINNNER 01/30/18 09/20/23 cholecalciferol (vitamin D3) 1,250 50,000 unit PO DAILY BONES 01/30/18 09/20/23 mcg (50,000 unit) capsule furosemide 20 mg tablet 20 mg PO DAILY Hypertension 01/30/18 09/20/23 potassium chloride 10 mEq 10 meq PO DAILY Supplement 01/30/18 09/20/23 tablet,extended release (K-Tab) simvastatin 40 mg tablet 40 mg PO DAILY High cholesterol 01/30/18 09/20/23 prochlorperazine maleate 10 mg 10 mg PO DAILY PRN Nausea 07/30/18 09/20/23 tablet famotidine 20 mg tablet 20 mg PO BID Reflux/Acid reflux 09/09/19 09/20/23 ondansetron HCl 8 mg tablet 8 mg PO BID Nausea & vomiting 10/23/19 09/20/23 cyclophosphamide 50 mg tablet 50 mg PO HS chemo pill- cancer 06/22/22 09/20/23 levothyroxine 75 mcg tablet 75 mcg PO DAILY hypothyroidism 06/22/22 09/20/23 (Synthroid) Previous Rx's ?Medication ?Instructions ?Recorded bisoprolol fumarate 5 mg tablet 10 mg (2 x 5 mg) PO DAILY 30 days 06/23/22 #60 tabs nitroglycerin 0.4 mg sublingual 0.4 mg sublingual Q5M PRN chest 06/23/22 tablet pain #30 tabs polymyxin B sulfate 10,000 1 drp Eye-Right Q3H 7 days #10 mL 03/08/23 unit-trimethoprim 1 mg/mL eye drops (Polytrim) cephalexin 500 mg capsule 500 mg PO QID 7 days #28 caps 12/16/23 mupirocin 2 % topical ointment 1 applic topical TID 7 days #15 12/16/23 grams Allergies Allergy/AdvReac Type Severity Reaction Status Date / Time Sulfa (Sulfonamide Allergy Mild Verified 12/16/23 14:32 Antibiotics) morphine Allergy Verified 12/16/23 14:32 [facility] AT [facility] Disclaimer: The information contained in this section may have been updated after the patient was seen, as this information can be updated by other users. Medical History Anemia Breast cancer CAD (coronary artery disease) Chemotherapy management, encounter for COPD (chronic obstructive pulmonary disease) Gallbladder disease GERD (gastroesophageal reflux disease) Graves disease HLD (hyperlipidemia) HTN (hypertension) Hypothyroid Migraine Osteoarthritis Ovarian cancer Thyroid disease Urinary tract infection Surgical History H/O total hysterectomy with bilateral salpingo-oophorectomy (BSO) History of appendectomy History of cholecystectomy History of lumpectomy of right breast Family History Other Family history of GERD Family history of acute congestive heart failure Family history of cancer Family history of diabetes mellitus type II Family history of hyperlipidemia Family history of hypertension Family history of myocardial infarction Family history of ovarian cancer Family history of stroke Social History Smoking Status: Former smoker alcohol intake: never current occupational status: retired Travel in the last 8 weeks: Inside the [place] household members: none housing: house Other Medical History Have you received the Flu Vaccine for this season: No Have you received the Pneumonia Vaccine: No ROS Obtained: Yes other As per HPI Physical Exam General General appearance: alert and in no apparent distress Head Head exam: atraumatic and normocephalic Eye Eye exam: Present normal appearance Neck Neck exam: Present normal inspection Chest Chest inspection: Present normal inspection and symmetric chest wall rise Respiratory Respiratory exam: Present normal lung sounds bilaterally; Absent respiratory distress Cardiovascular Cardiovascular exam: Present regular rate and normal rhythm Abdominal Exam Abdominal exam: Present soft Abdominal tenderness: Present epigastrium and moderate Neurological Exam Neurological exam: Present alert and oriented X3 Psychiatric Psychiatric exam: Present normal affect and normal mood Skin Skin exam: Present warm and dry Medical Decision Making Medical Records Medical records reviewed: Yes I reviewed the patient's medical records. Screening: Per USPSTF and CDC recommendations, given the prevalence of disease in our region, it is our hospital?s policy to screen for HIV and viral Hepatitis for all patients aged 18 and over and those with ongoing risk factors. [place] Inquiry Pt receiving controlled substance: No Vital Signs: 05/17/24 12:08 05/17/24 12:30 05/17/24 13:00 Temperature 98.3 F Temperature Source Oral Pulse Rate 100 H Pulse Rate [Apical] 105 H Respiratory Rate 18 19 13 Blood Pressure 135/73 143/78 H Blood Pressure [Right Arm] 155/79 H Blood Pressure Mean [Right Arm] 104 Blood Pressure Source Blood Pressure Source [Right Arm] Automatic Cuff Blood Pressure Position Blood Pressure Position [Right Arm] Sitting 02 Sat by Pulse Oximetry 95 92 L Oxygen Delivery Method Room Air Room Air 05/17/24 14:01 05/17/24 15:01 05/17/24 15:08 Temperature Temperature Source Pulse Rate 109 H 108 H 112 H Pulse Rate [Apical] Respiratory Rate 23 24 23 Blood Pressure 188/97 H 221/106 H 211/105 H Blood Pressure [Right Arm] Blood Pressure Mean [Right Arm] Blood Pressure Source Blood Pressure Source [Right Arm] Blood Pressure Position Blood Pressure Position [Right Arm] 02 Sat by Pulse Oximetry 94 L 94 L 95 Oxygen Delivery Method Room Air Room Air 05/17/24 15:31 05/17/24 16:01 05/17/24 16:30 Temperature Temperature Source Pulse Rate 109 H 107 H 106 H Pulse Rate [Apical] Respiratory Rate 22 15 16 Blood Pressure 209/99 H 120/64 140/77 Blood Pressure [Right Arm] Blood Pressure Mean [Right Arm] Blood Pressure Source Blood Pressure Source [Right Arm] Blood Pressure Position Blood Pressure Position [Right Arm] 02 Sat by Pulse Oximetry 95 96 96 Oxygen Delivery Method Room Air 05/17/24 17:55 Temperature 98.3 F Temperature Source Oral Pulse Rate 102 H Pulse Rate [Apical] Respiratory Rate 18 Blood Pressure 147/73 H Blood Pressure [Right Arm] Blood Pressure Mean [Right Arm] Blood Pressure Source Automatic Cuff Blood Pressure Source [Right Arm] Blood Pressure Position Sitting Blood Pressure Position [Right Arm] 02 Sat by Pulse Oximetry Oxygen Delivery Method Room Air Lab Data Lab Results 05/17/24 12:14: WBC 4.3 L D, RBC 4.10 L, Hgb 15.0, Hct 44.9, MCV 109.5 H, MCH 36.5 H, MCHC 33.3, RDW 17.0, Plt Count 140 L, MPV 7.8, Neut % (Auto) 92.9 H, Lymph % (Auto) 3.1 L, [place] % (Auto) 2.8, Eos % (Auto) 1.0, Baso % (Auto) 0.2, Neut # (Auto) 4.0, Lymph # (Auto) 0.1 L, [place] # (Auto) 0.1, Eos # (Auto) 0.0, Baso # (Auto) 0.0, Total Counted 100, Neutrophils % (Manual) 91 H, Lymphocytes % (Manual) 6 L, Monocytes % (Manual) 3, Platelet Estimate Slight decrease, Macrocytosis 2+, PT 11.4, INR 1.02, Sodium 139, Potassium 3.7, Chloride 106, Carbon Dioxide 24, Anion Gap 12.7, BUN 29 H D, Creatinine 0.90, Estimated Creat Clear 56, Estimated GFR 61, Est GFR ( Amer) 73, Glucose 142 H, Calcium 9.9, Total Bilirubin 2.9 H, Direct Bilirubin 2.2 H, AST 879 H* D, ALT 502 H*, Alkaline Phosphatase 258 H, Troponin I < 0.01, Total Protein 7.2, Albumin 4.1, Globulin 3.1, Albumin/Globulin Ratio 1.3, Lipase 82513 H, HIV 1&2 Antibody Rapid Nonreactive 05/17/24 15:34: Troponin I 0.02 05/17/24 12:14 05/17/24 12:14 Orders (Tests/Meds): ED MEDICATIONS Discontinued Medications Generic Name Dose Route Start Last Admin Trade Name Freq PRN Reason Stop Dose Admin Hydromorphone HCl 0.5 mg 05/17/24 15:30 05/17/24 15:38 Hydromorphone 4 Mg/Ml Syringe IV 05/17/24 15:31 0.5 mg ONCE ONE Administration Hydromorphone HCl 0.5 mg 05/17/24 17:42 05/17/24 17:55 Hydromorphone 4 Mg/Ml Syringe IV 05/17/24 17:43 0.5 mg ONCE ONE Administration Sodium Chloride 1,000 mls @ 999 mls/hr 05/17/24 13:12 05/17/24 13:59 Sod Chlor 0.9% 1000ml Bag IV 05/17/24 14:12 999 mls/hr .Q1H1M ONE Administration Piperacillin Sod/Tazobactam 50 mls @ 100 mls/hr 05/17/24 17:20 05/17/24 17:43 Sod 3.375 gm/ Sodium Chloride IV 05/17/24 17:49 100 mls/hr ONCE ONE Administration Iopamidol 70 ml 05/17/24 13:27 05/17/24 13:28 Iopamidol-370 (76%);100ml Bottle IV 05/17/24 13:28 70 ml ONCE ONE Administration Ondansetron HCl 4 mg 05/17/24 14:14 05/17/24 14:20 Ondansetron 4mg/2ml Vial IV 05/17/24 14:15 4 mg ONCE ONE Administration Sodium Chloride 10 ml 05/17/24 13:27 05/17/24 13:28 Sodium Chloride 0.9% 10ml Syr (Rad Only) IV 05/17/24 13:28 10 ml ONCE ONE Administration Sodium Chloride 50 ml 05/17/24 13:27 05/17/24 13:28 0.9 % Sodium Chloride 50 Ml Vial IV 05/17/24 13:28 50 ml ONCE ONE Administration ORDERS Category Date Time Status CT abdomen pelvis w con Stat Cat Scan 05/17/24 13:13 Completed CTA Chest [CT angio chest PE protocol] Stat Cat Scan 05/17/24 13:13 Completed POCUS Point of Care (ER Only) Stat Exams 05/17/24 12:55 Completed XR chest portable Stat Exams 05/17/24 12:21 Completed Bilirubin,Direct Stat Lab 05/17/24 12:14 Completed CBC w/Auto Diff [Complete Blood Count Auto Diff] Stat Lab 05/17/24 12:14 Completed CMP [Comprehensive Metabolic Panel] Stat Lab 05/17/24 12:14 Completed HIV (1&2) Antibody Rapid Stat Lab 05/17/24 12:14 Completed Hep C Ab with Reflex to RNA Stat Lab 05/17/24 12:14 Received Hepatitis Panel Stat Lab 05/17/24 13:20 Received Lipase Stat Lab 05/17/24 12:14 Completed PT INR [Prothrombin Time INR] Stat Lab 05/17/24 12:14 Completed Troponin I Q3H Lab 05/17/24 12:14 Completed Troponin I Q3H Lab 05/17/24 15:34 Completed Blood Culture Stat Micro 05/17/24 13:41 Received Medical Decision Narrative: Patient with history and exam per above presenting for evaluation of epigastric abdominal pain Diagnoses considered include pancreatitis, PUD, cholangitis, hepatitis, CHF, ACS, pulmonary embolism, neoplasm, among others ED workup and treatment included: ED MEDICATIONS Discontinued Medications Generic Name Dose Route Start Last Admin Trade Name Freq PRN Reason Stop Dose Admin Hydromorphone HCl 0.5 mg 05/17/24 15:30 05/17/24 15:38 Hydromorphone 4 Mg/Ml Syringe IV 05/17/24 15:31 0.5 mg ONCE ONE Administration Hydromorphone HCl 0.5 mg 05/17/24 17:42 05/17/24 17:55 Hydromorphone 4 Mg/Ml Syringe IV 05/17/24 17:43 0.5 mg ONCE ONE Administration Sodium Chloride 1,000 mls @ 999 mls/hr 05/17/24 13:12 05/17/24 13:59 Sod Chlor 0.9% 1000ml Bag IV 05/17/24 14:12 999 mls/hr .Q1H1M ONE Administration Piperacillin Sod/Tazobactam 50 mls @ 100 mls/hr 05/17/24 17:20 05/17/24 17:43 Sod 3.375 gm/ Sodium Chloride IV 05/17/24 17:49 100 mls/hr ONCE ONE Administration Iopamidol 70 ml 05/17/24 13:27 05/17/24 13:28 Iopamidol-370 (76%);100ml Bottle IV 05/17/24 13:28 70 ml ONCE ONE Administration Ondansetron HCl 4 mg 05/17/24 14:14 05/17/24 14:20 Ondansetron 4mg/2ml Vial IV 05/17/24 14:15 4 mg ONCE ONE Administration Sodium Chloride 10 ml 05/17/24 13:27 05/17/24 13:28 Sodium Chloride 0.9% 10ml Syr (Rad Only) IV 05/17/24 13:28 10 ml ONCE ONE Administration Sodium Chloride 50 ml 05/17/24 13:27 05/17/24 13:28 0.9 % Sodium Chloride 50 Ml Vial IV 05/17/24 13:28 50 ml ONCE ONE Administration ORDERS Category Date Time Status CT abdomen pelvis w con Stat Cat Scan 05/17/24 13:13 Completed CTA Chest [CT angio chest PE protocol] Stat Cat Scan 05/17/24 13:13 Completed POCUS Point of Care (ER Only) Stat Exams 05/17/24 12:55 Completed XR chest portable Stat Exams 05/17/24 12:21 Completed Bilirubin,Direct Stat Lab 05/17/24 12:14 Completed CBC w/Auto Diff [Complete Blood Count Auto Diff] Stat Lab 05/17/24 12:14 Completed CMP [Comprehensive Metabolic Panel] Stat Lab 05/17/24 12:14 Completed HIV (1&2) Antibody Rapid Stat Lab 05/17/24 12:14 Completed Hep C Ab with Reflex to RNA Stat Lab 05/17/24 12:14 Received Hepatitis Panel Stat Lab 05/17/24 13:20 Received Lipase Stat Lab 05/17/24 12:14 Completed PT INR [Prothrombin Time INR] Stat Lab 05/17/24 12:14 Completed Troponin I Q3H Lab 05/17/24 12:14 Completed Troponin I Q3H Lab 05/17/24 15:34 Completed Blood Culture Stat Micro 05/17/24 13:41 Received Labs were independently interpreted by me, significant for markedly elevated lipase, liver enzymes elevated, conjugated hyperbilirubinemia, leukocytosis Imaging was independently visualized and interpreted by me, significant for dilated bile duct status post cholecystectomy Please refer to radiology report for full details. Patient will benefit from transfer for higher level of care including further workup of new hepatitis and conjugated hyperbilirubinemia. She was accepted for admission at [facility]. Critical Care Critical Care Time Critical Care Time: No
--- NOTE | 2024-05-17 12:21 | XR_ITS ---
PROCEDURE INFORMATION: Exam: XR Chest Exam date and time: 05/17/2024 12:51 PM Age: 78 years old Clinical indication: Chest pressure and other: Lower chest/upper abd pain; Additional info: Chest pain TECHNIQUE: Imaging protocol: Radiologic exam of the chest. Views: 1 view. COMPARISON: CR XR CHEST PORTABLE 05/01/2023 2:45 PM FINDINGS: Tubes, catheters and devices: Right-sided MediPort catheter is in stable position. Lungs: Are streaky opacities in the lung bases are unchanged. No airspace consolidation or nodules. Low lung volumes. Pleural spaces: No pleural effusion. No pneumothorax. Heart/Mediastinum: No abnormalities. No cardiomegaly. No pulmonary vascular congestion. Bones/joints: No fractures or bone lesions. IMPRESSION: No acute findings in the chest. No interval changes. Low lung volumes.
[2024-05-17 12:29] LABS: Albumin Level 4.1 g/dl (3.5-5.0); Chloride 106 mmol/L (98-107); Potassium 3.7 mmoL/L (3.5-5.1); Sodium 139 mmol/L (136-145)
[2024-05-17 12:30] LABS: Basophils % 0.2 % (0.1-2.0); Hematocrit 44.9 % (37.0-47.0); Lymphocytes # 0.1 K/mm3 (0.7-4.5); Lymphocytes % 3.1 % (10-50); Mean Corpuscular HGB Conc 33.3 g/dL (31.8-35.4); Mean Corpuscular Hemoglobin 36.5 pg (27.0-31.2); Mean Corpuscular Volume 109.5 fl (81-99); Mean Platelet Volume 7.8 fl (7.4-10.4); Monocytes # 0.1 K/mm3 (0.1-1.0); Monocytes % 2.8 % (1.7-9.3); Neutrophils % 92.9 % (37.0-80.0); Platelet Count 140 K/mm3 (142-424); White Blood Count 4.3 K/mm3 (4.8-10.8)
[2024-05-17 12:32] LABS: Alanine Aminotransferase 502 U/L (12-78); Albumin/Globulin Ratio 1.3 (1.1-1.8); Alkaline Phosphatase 258 U/L (38-126); Anion Gap 12.7 mEq/L (5-15); Bilirubin,Total 2.9 mg/dl (0.2-1.3); Blood Urea Nitrogen 29 mg/dl (7-17); Carbon Dioxide 24 mmol/L (22.0-30.0); Creatinine Clearance Estimated 56 mL/min (50-200); Estimated Glomerular Filt Rate 61 ml/min (>60); GFR (African American) 73 ML/MIN (>60); Globulin 3.1 g/dL (1.3-3.2); Total Protein,Serum 7.2 g/dl (6.3-8.2)
[2024-05-17 12:33] LABS: Calcium 9.9 mg/dl (8.4-10.2); Glucose 142 mg/dl (74-100); MANUAL DIFFERENTIAL MANUAL DIFFERENTIAL (MANUAL DIFF)
[2024-05-17 12:45] LABS: Aspartate Amino Transferase 879 U/L (14-36); Troponin I < 0.01 ng/ml (0.00-0.034)
[2024-05-17 13:08] LABS: INR 1.02 (0.9-1.1); Prothrombin Time 11.4 seconds (10.1-12.5)
--- NOTE | 2024-05-17 13:13 | CT_ITS ---
PROCEDURE INFORMATION: Exam: CT Abdomen And Pelvis With Contrast Exam date and time: 05/17/2024 1:30 PM Age: 78 years old Clinical indication: Abdominal pain; Localized; Right upper quadrant (ruq); Prior surgery; Surgery date: 6+ months; Surgery type: Gb; Additional info: HX cancer, ruq pain, elevated liver enzymes TECHNIQUE: Imaging protocol: Computed tomography of the abdomen and pelvis with contrast. 3D rendering (Not supervised by radiologist): MIP and/or 3D reconstructed images were created by the technologist. Radiation optimization: All CT scans at this facility use at least one of these dose optimization techniques: automated exposure control; mA and/or kV adjustment per patient size (includes targeted exams where dose is matched to clinical indication); or iterative reconstruction. Contrast material: ISOVUE; Contrast volume: 70 ml; Contrast route: IV; COMPARISON: CT ABDOMEN PELVIS W CON 05/09/2022 7:23 PM FINDINGS: Lungs: No consolidation, lung nodules, or pleural effusions. Liver: No mass. No evidence of fat deposition. No surrounding fluid. Gallbladder and biliary ducts: Gallbladder is surgically absent. No biliary ductal dilatation. Common bile duct measures 16 mm compared to 8 mm on 05/09/2022, and has probable low-density stones near the ampulla. Pancreas: Stranding of fat around the head of the pancreas. No pancreatic masses or ductal dilatation. Spleen: No splenomegaly. No masses or surrounding fluid. Adrenal glands: 2 cm right adrenal nodule is unchanged since 05/09/2022. Fat density myelolipoma in the left adrenal gland is unchanged. Kidneys and ureters: Cortical thinning in both kidneys. No solid renal masses, calcified stones, or hydroureteronephrosis. Stomach and bowel: No intestinal masses, bowel wall thickening, or abnormal dilatation. Appendix: No evidence of appendicitis. Intraperitoneal space: Small volume of ascites. No pneumoperitoneum. Vasculature: No abdominal aortic aneurysm. No other significant abnormalities. Lymph nodes: No enlarged lymph nodes. Urinary bladder: Moderate diffuse bladder wall thickening may simply be due to small bladder volume. Reproductive: Uterus is surgically absent. No adnexal masses. Bones/joints: No acute fracture or bone lesions. Soft tissues: Umbilical hernia contains a segment of transverse colon without bowel wall thickening or luminal dilatation. IMPRESSION: 1. Biliary ductal dilatation has developed since 05/09/2022, and choledocholithiasis is suspected. 2. Stranding of fat around the head of the pancreas suggesting acute pancreatitis. 3. Small volume of ascites, particularly along the right anterior pararenal fascia. 4. Possible diffuse bladder wall thickening. Consider cystitis in the proper clinical setting. 5. Benign right adrenal adenoma and benign left adrenal myelolipoma are unchanged since 05/09/2022. 6. Umbilical hernia contains a segment of transverse colon.
--- NOTE | 2024-05-17 13:13 | CT_ITS ---
PROCEDURE INFORMATION: Exam: CTA Chest With Contrast Exam date and time: 05/17/2024 1:30 PM Age: 78 years old Clinical indication: Angina and other: Tachycardia; Additional info: HX cancer, tachycardia, cp TECHNIQUE: Imaging protocol: Computed tomographic angiography of the chest with contrast. Exam focused on the arteries. 3D rendering (Not supervised by radiologist): MIP and/or 3D reconstructed images were created by the technologist. Radiation optimization: All CT scans at this facility use at least one of these dose optimization techniques: automated exposure control; mA and/or kV adjustment per patient size (includes targeted exams where dose is matched to clinical indication); or iterative reconstruction. Contrast material: ISOUVE 370; Contrast volume: 70 ml; Contrast route: INTRAVENOUS (IV); COMPARISON: CT ANGIO CHEST PE PROTOCOL 08/14/2022 6:52 PM FINDINGS: Tubes, catheters and devices: Surgical clips and scarring in the superior left breast. Pulmonary arteries: No pulmonary emboli. Aorta: No aortic aneurysm. No aortic dissection. Lungs: Curvilinear and ground-glass opacities in both lower lobes may represent atelectasis or pneumonia. No other airspace consolidation or nodules. Pleural spaces: No pneumothorax. No pleural effusion. Heart: No cardiomegaly. No pericardial effusion. Coronary arteries: Small number coronary artery calcifications. Lymph nodes: No enlarged lymph nodes. Intraperitoneal space: Small amount of ascites along the right and left anterior pararenal fascias and around the liver. Bones/joints: No acute fracture. Soft tissues: No soft tissue masses. IMPRESSION: 1. Bibasilar atelectasis. 2. No pulmonary emboli. No aortic aneurysm or intimal dissection. 3. Small volume of ascites.
--- NOTE | 2024-05-17 13:23 | PC.NURSE ---
PT TO CT
[2024-05-17] MEDS: SODIUM CHLORIDE 0.9% 10ML SYR (RAD ONLY) 10 ML IV (13:28)
[2024-05-17] MEDS: IOPAMIDOL-370 (76%);100ML BOTTLE 70 ML IV (13:28)
[2024-05-17] MEDS: 0.9 % SODIUM CHLORIDE 50 ML VIAL IV (13:28)
[2024-05-17 13:29] LABS: Lymphocytes % 6 % (10-50); Macrocytosis 2+; Monocytes % 3 % (2-9); Neutrophils % 91 % (42-76); Platelet Estimate Slight Decrease; Total Cells Counted 100
[2024-05-17 13:31] LABS: Lipase 17189 U/L (23-300)
--- NOTE | 2024-05-17 13:31 | PC.NURSE ---
CRITICAL LIPASE [phone],[id number] RECEIVED FROM RAY IN LAB. PT NAME AND R/V. DR JIMENEZ NOTIFIED
--- NOTE | 2024-05-17 13:33 | PC.NURSE ---
PT RETURNED FROM CT
[2024-05-17 13:46] LABS: Bilirubin,Direct 2.2 mg/dl (0.0-0.4)
[2024-05-17] MEDS: 0.9 % SODIUM CHLORIDE 1000ML 1,000 ML 999 ML IV (13:59)
[2024-05-17] MEDS: ONDANSETRON 4MG/2ML VIAL 4 MG IV (14:20)
[2024-05-17 15:30] LABS: HIV (1&2) Antibody Rapid NONREACTIVE (NONREACTIVE)
--- NOTE | 2024-05-17 15:43 | PC.NURSE ---
after pain medication administration, pt is sleepy and sat decreased to 89-90%. Placed pt on 2LPM NC and sat improved to 97%
--- NOTE | 2024-05-17 16:11 | PC.NURSE ---
CALLING [facility] FOR TRANSFER TO THERE FACILITY
[2024-05-17 16:24] LABS: Troponin I 0.02 ng/ml (0.00-0.034)
--- NOTE | 2024-05-17 17:25 | PC.NURSE ---
REPORT CALLED TO KARLA DELGADO AT [facility]
--- NOTE | 2024-05-17 17:25 | PC.NURSE ---
ADRIANA ZAVALA [address]
--- NOTE | 2024-05-17 17:41 | PC.NURSE ---
[facility] NOTIFIED OF TRANSFER
[2024-05-17] MEDS: PIPERACILLIN/TAZO 3.375 GM in 0.9 % SODIUM CHLORIDE 50 ML IV (17:43)
--- NOTE | 2024-05-18 06:02 | PC.NURSE ---
This RN rec'd a call from lab regarding blood cx. Aerobic grew e. coli. This RN called and passed the info KARLA Krishnan.
[2024-05-18 08:28] LABS: HBsAg Screen Negative (Negative); HCV Ab Non Reactive (Non Reactive); Hep A Ab, IGM Negative (Negative); Hep B Core Ab, IgM Negative (Negative)
[2024-05-18 08:28] LABS: HCV Ab Non Reactive (Non Reactive)
== END 2024-05-17 18:23 | disposition short-term general hospital (02) ==
PROVIDERS: Emergency Provider Emergency Medicine
DX: K85.90 Acute pancreatitis without necrosis or infection, unspecified (principal); R10.9 Unspecified abdominal pain; R11.11 Vomiting without nausea; R55 Syncope and collapse; R50.9 Fever, unspecified
CPT/HCPCS: 71045; 71275; 74177; 80053; 80074; 82248; 83690; 84484; 85007; 85025; 85610; 86803; 87040; 87077; 87186; 87389; 93005; 96374; 96375; 99285; J1171; J2405; J2543; J7030; Q9967

== ENCOUNTER 2024-07-10 11:47 | Outpatient (CLI) | payer MEDICARE, OTHER, SELFPAY ==
--- OUTSIDE RECORDS SUMMARY | 2024-07-10 11:50 | XMS_ITS | Clinical Summary ---
[facility] Organization [facility] Address [address] [place] [address] Care Team Providers Care Customer Servicer Name Role Phone Lizet Herrera Primary Care Provider +1- [phone] Social History Tobacco Use Types Packs/Day Years Used Date Smoking Tobacco: Never Assessed Abuse Screen Answer Date Recorded Unsafe at Home or Work/School Not on file Feels Threatened by Someone? Not on file 03/2023 Does Anyone Keep You from Co ntacting Others or Doint Things Outside the Home? Not on file 05/08/2023 Physical Sign of Abuse Present Not on file 1 Housing Stability Answer Date Recorded Current Living Arrangements Not on file 03/2023 Potentially Unsafe Housing Conditions Not on meir e 05/08/2023 Family and Community Support Answer Pacheco e Recorded Help with Day-to-Day Activities Not on file 05/08/2023 Lonely or Isolated Not on file 05/08/2023 Employment Answer Date Recorded Do you want help finding or keeping work or a patti b? Not on file 05/08/2023 Disabilities Answer Date Recorded Concentrating, Remembering, or Making Decisions Difficulty Not on file 05/08/2023 Doing Errands Independently Difficulty Not on fi le 05/08/2023 Education Answer Date Recorded Help with school or training? Not on file Preferred Language Not on file 05/08/2023 Comments Unknown Sex and Gender Information Value Date Recorded Sex Assigned at Not on file Legal Sex Female 10:02 AM EDT Gender Identity Not on file Sexual Orientation Not on file Plan of Treatment Health Maintenance Due Date Last Done Comments ANNUAL WELLNESS VISIT 1945 DXA SCAN 1945 HEPATITIS C SCREENING 1945 TDAP/TD VACCINES (1 - Tdap) 1964 ZOSTER VACCINE (1 of 2) 1995 Pneumococcal Vaccine 65+ (1 of 1 - PCV) 2010 RSV Vaccine - Adults (1 - 1- dose 75+ series) 2020 INFLUENZA VACCINE 01/29/2024 06/08/2021, , 04/29/2020, Additional history exists COVID-19 Vaccine (4 - 2023-2 5 season) 2024 05/05/2021, 10/07/2020, 09/09/2020 MAMMOGRAM Discontinued 02/22/2024, 11/28, 12/14/2021, Additional history exists Insurance [facility] MEDICARE A & B Care Teams Customer Servicer Relationship Specialty Start Date End Date Lizet Herrera PA [address] [place] [address] PCP - General Physician Refurbish Technician 12/30/21
--- OUTSIDE RECORDS SUMMARY | 2024-07-10 11:50 | XMS_ITS | Encounter Summary ---
Author Organization [facility] Address [address] [place] [address] Care Team Providers Care Hand Shaker Name Role Phone Lizet Herrera Primary Care Provider +1- [phone] Reason for Referral * Diagnostic Imaging (Routine) - Closed Specialty Diagnoses / Procedures Referred By Contac t Referred To Contact Radiology Diagnoses Malignant neoplasm of fallopian tube, unspecified laterality Procedures CT Chest With Contrast Penelope Hutchins MD [address] [place] [address] Phone: tel: fax: Referral ID Status Reason Start Date Expiration Date Visits Re quested Visits Authorized [id number] Closed 12/10/2021 12/10/2022 1 1 * Diagnostic Imaging (Routine) - Closed Specialty Diagnoses / Procedures Referred By Contac t Referred To Contact Radiology Diagnoses Malignant neoplasm of fallopian tube, unspecified laterality Procedures CT Abdomen Pelvis With Contrast Penelope Hutchins MD [address] [facility] [address] [place] [address] Phone: tel: fax: Referral ID Status Reason Start Date Expiration Date Visits Re quested Visits Authorized [id number] Closed 12/10/2021 12/10/2022 1 1 Reason for Visit * Diagnostic Imaging (Routine) - Closed Specialty Diagnoses / Procedures Referred By Contac t Referred To Contact Radiology Diagnoses Malignant neoplasm of fallopian tube, unspecified laterality Procedures CT Abdomen Pelvis With Contrast Penelope Hutchins MD [address] [facility] [address] [place] [address] Phone: tel: fax: Referral ID Status Reason Start Date Expiration Date Visits Re quested Visits Authorized [id number] Closed 12/10/2021 12/10/2022 1 1 Encounter Details Date Type Department Care Team (Late st Contact Info) Description 12/30/2021 9:47 AM EDT - 12/30/2021 11:59 PM EDT Hospital Encounter [facility] CT AT [address] [id number] Penelope Hutchins MD [address] [facility] [address] [place], [place] [id number] Malignant neoplasm of fallopian tube, unspecified laterality Discharge Disposition: Home or Self Care Social History Tobacco Use Types Packs/Day Years Used Date Smoking Tobacco: Never Assessed Comments Unknown Sex and Gender Information Value Date Recorded Sex Assigned at Not on file Legal Sex Female 10:02 AM EDT Gender Identity Not on file Sexual Orientation Not on file documented as of this encounter Plan of Treatment Not on file documented as of this encounter Procedures Procedure Name Priority Date/Time Associated Diagnosis Comments CT ABDOMEN PELVIS W CONTRAST Routine 12/30/2021 11:49 AM EDT Malignant neoplasm of fallopian tube, unspecified laterality CT CHEST W CONTRAST Routine 12/30/2021 1 1:49 AM EDT Malignant neoplasm of fallopian tube, unspecified laterality POCT CREATININE Routine 12/30/2021 11:27 AM EDT documented in this encounter Results * CT Chest With Contrast Diagnostic (12/30/2021 11:49 AM EDT) Anatomical Region Laterality Modality Chest N/A Computed Tomogra phy 12/30/2021 4:18 PM EDT Impressions 12/30/2021 4:28 PM EDT 1. ??Noncalcified 3 mm right upper lobe pulmonary nodule. ??Follow-up CT scan of the chest would be recommended in 12 months. 2. ??1 cm isodense mass along the upper pole the right kidney. ??Follow-up MRI of the kidneys before and after IV contrast would be useful for further characterization. 3. ??Right adrenal nodule favored to be an adenoma but continued serial CT follow-up would be recommended. 4. ??Midline ventral hernia within the lower abdomen containing loops of small bowel and colon. ??No evidence of bowel obstruction or inflammatory change. This report was finalized on 12/30/2021 4:28 PM by Lopez Villeda MD. Narrative 12/30/2021 4:[address] CHEST W CONTRAST DIAGNOSTIC-, CT ABDOMEN PELVIS W CONTRAST- Date of Exam: 12/30/2021 11:45 AM Indication: C57.00; C57.00-Malignant neoplasm of unspecified fallopian tube. Comparison Exams: None available. Technique: Multiple axial images were obtained from the thoracic inlet through the symphysis pubis after the administration of IV contrast. The axial data was used to generate reformatted images in the coronal and sagittal planes. Automated exposure control and iterative reconstruction methods were used. FINDINGS: Chest: There is a right internal jugular Port-A-Cath in place with the tip in the superior vena cava. ??There are postoperative changes of the left breast. ??There is no mediastinal, hilar, or axillary adenopathy. There are no pleural effusions. ??There are bands of linear atelectasis in both lung bases. ??There are calcified granulomas within the right lower lobe. ??Within the lateral right upper lobe there is a 3 mm noncalcified pulmonary nodule No other suspicious noncalcified pulmonary nodule identified. ABDOMEN: ??The liver, pancreas, and spleen are within normal limits. Patient status post cholecystectomy. ??No evidence biliary tract obstruction. ??Within the right adrenal gland there is a 1.9 cm nodule. Within the left adrenal gland there is a 2 cm nodule. 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 ??There is a fat density 1.7 cm mass arising from the upper pole the right kidney consistent within angiomyolipoma. ??Adjacent to this angiomyolipoma there is a 1 cm mass which is isodense to the cortex. ??This could represent a hemorrhagic cyst or solid neoplasm. Follow-up MRI of the kidneys before and after IV contrast would be useful for further evaluation. ??There is no abdominal or retroperitoneal adenopathy. ??There is a midline ventral hernia containing loops of small bowel and colon. ??There is no evidence of bowel obstruction or inflammatory change. Pelvis: Urinary bladder is within normal limits. ??Patient is status post hysterectomy. ??GI tract is within normal limits. ??The appendix is not visualized. ??No pelvic or inguinal adenopathy. Bones: Degenerative changes are noted of the spine. ??There are no lytic or sclerotic bony lesions identified. Procedure Note Lopez Villeda MD - 12/30/2021 CT CHEST W CONTRAST DIAGNOSTIC-, CT ABDOMEN PELVIS W CONTRAST- Date of Exam: 12/30/2021 11:45 AM Indication: C57.00; C57.00-Malignant neoplasm of unspecified fallopian tube. Comparison Exams: None available. Technique: Multiple axial images were obtained from the thoracic inlet through the symphysis pubis after the administration of IV contrast. The axial data was used to generate reformatted images in the coronal and sagittal planes. Automated exposure control and iterative reconstruction methods were used. FINDINGS: Chest: There is a right internal jugular Port-A-Cath in place with the tip in the superior vena cava. There are postoperative changes of the left breast. There is no mediastinal, hilar, or axillary adenopathy. There are no pleural effusions. There are bands of linear atelectasis in both lung bases. There are calcified granulomas within the right lower lobe. Within the lateral right upper lobe there is a 3 mm noncalcified pulmonary nodule No other suspicious noncalcified pulmonary nodule identified. ABDOMEN: The liver, pancreas, and spleen are within normal limits. Patient status post cholecystectomy. No evidence biliary tract obstruction. Within the right adrenal gland there is a 1.9 cm nodule. Within the left adrenal gland there is a 2 cm nodule. 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 There is a fat density 1.7 cm mass arising from the upper pole the right kidney consistent within angiomyolipoma. Adjacent to this angiomyolipoma there is a 1 cm mass which is isodense to the cortex. This could represent a hemorrhagic cyst or solid neoplasm. Follow-up MRI of the kidneys before and after IV contrast would be useful for further evaluation. There is no abdominal or retroperitoneal adenopathy. There is a midline ventral hernia containing loops of small bowel and colon. There is no evidence of bowel obstruction or inflammatory change. Pelvis: Urinary bladder is within normal limits. Patient is status post hysterectomy. GI tract is within normal limits. The appendix is not visualized. No pelvic or inguinal adenopathy. Bones: Degenerative changes are noted of the spine. There are no lytic or sclerotic bony lesions identified. IMPRESSION: 1. Noncalcified 3 mm right upper lobe pulmonary nodule. Follow-up CT scan of the chest would be recommended in 12 months. 2. 1 cm isodense mass along the upper pole the right kidney. Follow-up MRI of the kidneys before and after IV contrast would be useful for further characterization. 3. Right adrenal nodule favored to be an adenoma but continued serial CT follow-up would be recommended. 4. Midline ventral hernia within the lower abdomen containing loops of small bowel and colon. No evidence of bowel obstruction or inflammatory change. This report was finalized on 12/30/2021 4:28 PM by Lopez Villeda MD. us Penelope Hutchins MD IMG CT ORDERABLES Final Result * CT Abdomen Pelvis With Contrast (12/30/2021 11:49 AM EDT) Anatomical Region Laterality Modality Abdomen, Pelvis N/A Computed Tomogra phy 12/30/2021 4:18 PM EDT Impressions 12/30/2021 4:28 PM EDT 1. ??Noncalcified 3 mm right upper lobe pulmonary nodule. ??Follow-up CT scan of the chest would be recommended in 12 months. 2. ??1 cm isodense mass along the upper pole the right kidney. ??Follow-up MRI of the kidneys before and after IV contrast would be useful for further characterization. 3. ??Right adrenal nodule favored to be an adenoma but continued serial CT follow-up would be recommended. 4. ??Midline ventral hernia within the lower abdomen containing loops of small bowel and colon. ??No evidence of bowel obstruction or inflammatory change. This report was finalized on 12/30/2021 4:28 PM by Lopez Villeda MD. Narrative 12/30/2021 4:[address] CHEST W CONTRAST DIAGNOSTIC-, CT ABDOMEN PELVIS W CONTRAST- Date of Exam: 12/30/2021 11:45 AM Indication: C57.00; C57.00-Malignant neoplasm of unspecified fallopian tube. Comparison Exams: None available. Technique: Multiple axial images were obtained from the thoracic inlet through the symphysis pubis after the administration of IV contrast. The axial data was used to generate reformatted images in the coronal and sagittal planes. Automated exposure control and iterative reconstruction methods were used. FINDINGS: Chest: There is a right internal jugular Port-A-Cath in place with the tip in the superior vena cava. ??There are postoperative changes of the left breast. ??There is no mediastinal, hilar, or axillary adenopathy. There are no pleural effusions. ??There are bands of linear atelectasis in both lung bases. ??There are calcified granulomas within the right lower lobe. ??Within the lateral right upper lobe there is a 3 mm noncalcified pulmonary nodule No other suspicious noncalcified pulmonary nodule identified. ABDOMEN: ??The liver, pancreas, and spleen are within normal limits. Patient status post cholecystectomy. ??No evidence biliary tract obstruction. ??Within the right adrenal gland there is a 1.9 cm nodule. Within the left adrenal gland there is a 2 cm nodule. 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 ??There is a fat density 1.7 cm mass arising from the upper pole the right kidney consistent within angiomyolipoma. ??Adjacent to this angiomyolipoma there is a 1 cm mass which is isodense to the cortex. ??This could represent a hemorrhagic cyst or solid neoplasm. Follow-up MRI of the kidneys before and after IV contrast would be useful for further evaluation. ??There is no abdominal or retroperitoneal adenopathy. ??There is a midline ventral hernia containing loops of small bowel and colon. ??There is no evidence of bowel obstruction or inflammatory change. Pelvis: Urinary bladder is within normal limits. ??Patient is status post hysterectomy. ??GI tract is within normal limits. ??The appendix is not visualized. ??No pelvic or inguinal adenopathy. Bones: Degenerative changes are noted of the spine. ??There are no lytic or sclerotic bony lesions identified. Procedure Note Lopez Villeda MD - 12/30/2021 CT CHEST W CONTRAST DIAGNOSTIC-, CT ABDOMEN PELVIS W CONTRAST- Date of Exam: 12/30/2021 11:45 AM Indication: C57.00; C57.00-Malignant neoplasm of unspecified fallopian tube. Comparison Exams: None available. Technique: Multiple axial images were obtained from the thoracic inlet through the symphysis pubis after the administration of IV contrast. The axial data was used to generate reformatted images in the coronal and sagittal planes. Automated exposure control and iterative reconstruction methods were used. FINDINGS: Chest: There is a right internal jugular Port-A-Cath in place with the tip in the superior vena cava. There are postoperative changes of the left breast. There is no mediastinal, hilar, or axillary adenopathy. There are no pleural effusions. There are bands of linear atelectasis in both lung bases. There are calcified granulomas within the right lower lobe. Within the lateral right upper lobe there is a 3 mm noncalcified pulmonary nodule No other suspicious noncalcified pulmonary nodule identified. ABDOMEN: The liver, pancreas, and spleen are within normal limits. Patient status post cholecystectomy. No evidence biliary tract obstruction. Within the right adrenal gland there is a 1.9 cm nodule. Within the left adrenal gland there is a 2 cm nodule. 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 There is a fat density 1.7 cm mass arising from the upper pole the right kidney consistent within angiomyolipoma. Adjacent to this angiomyolipoma there is a 1 cm mass which is isodense to the cortex. This could represent a hemorrhagic cyst or solid neoplasm. Follow-up MRI of the kidneys before and after IV contrast would be useful for further evaluation. There is no abdominal or retroperitoneal adenopathy. There is a midline ventral hernia containing loops of small bowel and colon. There is no evidence of bowel obstruction or inflammatory change. Pelvis: Urinary bladder is within normal limits. Patient is status post hysterectomy. GI tract is within normal limits. The appendix is not visualized. No pelvic or inguinal adenopathy. Bones: Degenerative changes are noted of the spine. There are no lytic or sclerotic bony lesions identified. IMPRESSION: 1. Noncalcified 3 mm right upper lobe pulmonary nodule. Follow-up CT scan of the chest would be recommended in 12 months. 2. 1 cm isodense mass along the upper pole the right kidney. Follow-up MRI of the kidneys before and after IV contrast would be useful for further characterization. 3. Right adrenal nodule favored to be an adenoma but continued serial CT follow-up would be recommended. 4. Midline ventral hernia within the lower abdomen containing loops of small bowel and colon. No evidence of bowel obstruction or inflammatory change. This report was finalized on 12/30/2021 4:28 PM by Lopez Villeda MD. us Penelope Hutchins MD IMG CT ORDERABLES Final Result * POC Creatinine (12/30/2021 11:27 AM EDT) Creatinine 0.80 0.60 - 1.30 mg/dL 12/30/2021 12:24 PM EDT [facility] Comment:Serial Number: [id number]: [id number] Blood 12/30/2021 11:2 7 AM EDT 12/30/2021 12:24 PM EDT us Peenlope Hutchins MD POINT OF CARE TEST ORDE CT Final Result [facility]
[address] [place] [address], documented in this encounter Visit Diagnoses Diagnosis Malignant neoplasm of fallopian tube, unspecified laterality documented in this encounter Administered Medications Inactive Administered Medications - up to 3 most recent administrations Medication Order MAR Action Action Date Dose Rate Site barium (READI-CAT 2) suspension 450 mL 450 mL, Oral, Once in Imaging, On [place] 12/30/21 at 1150, For 1 dose, {BKC} Shake well before administration. Given 12/30/2021 11:49 AM EDT 450 mL iopamidol (ISOVUE-300) 61 % injection 100 mL 100 mL, Intravenous, Once in Imaging, On [place] 12/30/21 at 1150, For 1 dose Given 12/30/2021 11:49 AM EDT 85 mL documented in this encounter Care Teams Hand Shaker Relationship Specialty Start Date End Date Lizet Herrera PA [address] [place] [address] PCP - General Physician Firer Retort 12/30/21 documented as of this encounter
--- OUTSIDE RECORDS SUMMARY | 2024-07-10 11:50 | XMS_ITS | Encounter Summary ---
[facility] Organization [facility] Address [address] [place] [address] Care Team Providers Care Rules Examiner Name Role Phone Unavailable Primary Care Provider Unavailabl e Encounter Details Date Type Department Care Team (Late st Contact Info) Description 09/30/2010 Conversion Encounter [facility] HISTORICAL CONV [address] [place] [address] Interface, See Report Social History Tobacco Use Types Packs/Day Years [...] Procedure Name Priority Date/Time Associated Diagnosis Comments CONVERTED (HISTORICAL) SURGICAL PATHOLOGY Routine 09/30/2010 10:24 AM EST documented in this encounter Results * Converted Surgical Pathology (09/30/2010 10:24 AM EST) 09/30/2010 10:2 4 AM EST [facility] - 10/01/2010 11:39 AM EST [facility] [address] [place] [address] SURGICAL PATHOLOGY REPORT Patient Name: DANIELA CHAMBERLAIN MR#: [id number] : 1945 Gender: F Ordering Physician: ELZBIETA KILGORE Copy To: [facility] Location: [facility] Collected: 09/30/2010 Received: 09/30/2010 Reported: 10/01/2010 Clinical Diagnosis and History 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 Final Diagnosis SOFT TISSUE MASS FROM LEFT INDEX FINGER, SIMPLE EXCISION: ? Giant cell tumor of tendon sheath. JFJ/rw Amendments: Electronically Signed Out By Clarence Bergeorn M.D. Specimen(s) Received: Soft tissue mass, simple excision Gross Description Received in formalin labeled left index finger mass is a 1.5 x 1.3 x 1.0cm ruiz/adan soft tissue mass which is bisected and submitted entirely in one cassette. ??HBM/rw Microscopic Description Sections show a well-circumscribed proliferation of histiocytoid and polyhedral cells with intermixed giant cells. ??Many hemosiderin-laden macrophages are noted as well. ??There is no evidence of malignancy. ??JFJ/rw Procedures/Addenda us See Report Interface PATHOLOGY/CYTOLOGY ORDERABL ES Final Result [facility] [address] [place] [address], documented in this encounter Visit Diagnoses Not on filedocumented in this encounter
--- OUTSIDE RECORDS SUMMARY | 2024-07-10 11:51 | XMS_ITS | Encounter Summary ---
Author Organization [facility] Address [address] [place] [address] Care Team Providers Care Food Service Representative Name Role Phone Aliyah Valencia MD Unavailable [phone] Flaquita Dorsey DO Primary Care Provider [phone] Conrado Iqbal MD Unavailable Encounter Details Date Type Department Care Team (Latest Contact Info) Description 05/24/2024 Travel Social History Tobacco Use Types Packs/Day Years Used Date Smoking Tobacco: Former Cigarettes 0.5 22 1 976 - 1998 Passive Smoke Exposure: Past Smokeless Tobacco: Former Alcohol Use Standard Drinks/Week Comments Not Currently 0 (1 standard drink = 0.6 oz pur e alcohol) Humiliation, Afraid, Rape, and Kick questionnair e Answer Date Recorded Within the last year, have y ou been afraid of your partner or ex-partner? No 05/20/2024 Within the last year, have y ou been humiliated or emotionally abused in other ways by your partner or ex-partner? No Within the last year, have y ou been kicked, hit, slapped, or otherwise physically hurt by your partner or ex-partner? No 05/20/2024 Within the last year, have y ou been raped or forced to have any kind of sexual activity by your partner or ex-partner? No 05/20/2024 PHQ-2 Answer Date Recorded Patient Health Questionnaire-2 Score 0 04/29/2024 Hunger Vital Sign Answer Date Recorded Within the past 12 months, y ou worried that your food would run out before you got the money to buy more. Never true 05/20/20 24 Within the past 12 months, t he food you bought just didn't last and you didn't have money to get more. Never true 05/20/2024 PRAPARE - Transportation Answer Date Re corded In the past 12 months, has l ack of transportation kept you from medical appointments or from getting medications? No 05/01 In the past 12 months, has l ack of transportation kept you from meetings, work, or from getting things needed for daily living? No 05/20/2024 Housing Stability Vital Sign Answer [place] e Recorded In the last 12 months, was t here a time when you were not able to pay the mortgage or rent on time? No 05/20/2024 In the last 12 months, how many places have you lived? 1 05/20/2024 In the last 12 months, was t here a time when you did not have a steady place to sleep or slept in a intermediate (including now)? No 05/20/2024 Utilities Answer Date Recorded In the past 12 months has th e electric, gas, oil, or water company threatened to shut off services in your home? No 05/20/2024 PHQ-2A Answer Date Recorded Patient Health Questionnaire-2 Score 0 07/10/2023 Comments No Sex and Gender Information Value Date Recorded Sex Assigned at Not on file Legal Sex Female 8:51 PM EDT Gender Identity Not on file Sexual Orientation Not on file documented as of this encounter Plan of Treatment Upcoming Encounters Date Type Department Care Team ([facility] st Contact Info) Description 08/05/2024 8:00 AM EST Office Visit [facility] [address] [address] [address] [place] [address] Penelope Carmona MD [address] [facility] [address] [facility] [address] [place] [address] 08/05/2024 9:30 AM EST Appointment [facility] [address] [place] [address] 02/26/2025 9:30 AM EDT Appointment [facility] [address] [address] [address] [facility] [address] [place] [address] 02/26/2025 10:30 AM EDT Office Visit [facility] [address] [facility] [place] [address] Berenice Resendez D, APRON CLEANER [address] [facility] [address] [place] [address] documented as of this encounter Visit Diagnoses Not on filedocumented in this encounter Additional Health Concerns Assessment Noted Time A fall risk assessment has been complete d for the patient 04/29/2024 1:49 PM EDT A Body Mass Index follow-up plan has been documented for the patient 05/23/2024 1:34 PM EDT documented as of this encounter Care Teams Food Service Representative Relationship Specialty Start Date End Date Flaquita Dorsey DO [address] [place] [address] PCP - General 12/14/21 Aliyah Valencia MD [address] [place] [place] [address] Referring Physician 03/10/21 Conrado Iqbal MD [address] [place] [address] Service Attending Cardiology 08/19/22 documented as of this encounter
--- OUTSIDE RECORDS SUMMARY | 2024-07-10 11:51 | XMS_ITS | Clinical Summary ---
Author Organization [facility] Address [address] [place] [address] Care Team Providers Care Car Ferrier Name Role Phone Aliyah Valencia MD Unavailable [phone] Flaquita Dorsey DO Primary Care Provider [phone] Conrado Iqbal MD Unavailable Allergies Active Allergy Reactions Criticality Noted Date Comments Calcium Unknown - Patient states they do not know rxn details,Other - please document in the comment field High 09/20/2016 arthritic pain in hands Morphine Hives,Itching Medium 12/08/2005 Shellfish Allergy Other - please document in the comment field Low 08/17/2022 Nausea and Vomiting, I pass out Sulfacetamide Other - please document in the comment field,Unknown - Patient states they do not know rxn details Low 09/20/2016 nausea, vomitting Medications aspirin 81 MG chewable tablet Chew 1 tablet (81 mg) 1 (one) time each day. Active ergocalciferol (Vitamin D-2) 1.25 MG (60678 UT) capsule Take 1 capsule (50,000 Units) by mouth 1 (one) time per week. Monday Active lisinopril 5 MG tablet Take 1 tablet (5 mg) by mouth 1 (one) time each day. Active furosemide (Lasix) 20 MG tablet Take 1 tablet (20 mg) by mouth 1 (one) time each day. Active potassium chloride ER (Micro-K) 10 MEQ ER capsule Take 1 capsule (10 mEq) by mouth 2 (two) times a day. Active erythromycin (Romycin) 5 MG/GM ophthalmic ointment Apply 1 Application to right eye every 8 (eight) hours. Active Synthroid 75 MCG tablet Take 1 tablet (75 mcg) by mouth 1 (one) time each day in the morning. Active gabapentin (Neurontin) 300 MG capsuleIndication s:Carcinoma of fallopian tube, unspecified laterality (CMS/HCC) Take 2 capsules (600 mg) by mouth every night. 60 capsule 3 Active ondansetron ODT (Zofran-ODT) 4 MG disintegrating tablet Take 1 tablet (4 mg) by mouth every 6 (six) hours if needed for nausea or vomiting. Active naloxone (Narcan) 4 mg/0.1 mL nasal spray 1. Give 1 spray in nostril for no/slow breathing or cannot wake after opioid use 2. Call 911 3. Repeat in other nostril if symptoms continue Active oxyCODONE (Roxicodone) 5 MG immediate release tablet Take 1 tablet (5 mg) by mouth every 6 (six) hours if needed for moderate pain. Active dexamethasone (Decadron) 4 MG tabletIndications :Carcinoma of fallopian tube, unspecified laterality (CMS/HCC) Take 2 tablets (8 mg total) by mouth 1 (one) time each day. On days 2 and 3. 24 tablet 022 2021 Discontinued polyethylene glycol (Miralax) 17 g packet Take 17 g by mouth 1 (one) time each day. 2023 senna (Senokot) 8.6 MG tablet Take 1 tablet (8.6 mg) by mouth every night. 2023 Active Problems Problem Noted Date Diagnosed Date Vaginal bleeding 03/14/2023 Osteopenia 11/02/2022 History of aromatase inhibitor therapy 3 Obesity (BMI 30-39.9) 04/11/2022 Malignant neoplasm of left b reast in female, estrogen receptor positive 12/09/2020 Cancer Staging:Pathologic stage from 05/28/2001: pT1c, pN0, cM0, G2, ER+, FL+, HER2: Unknown - Signed by Cara Greene MD on 06/19/2021 Pathologic stage from 10/05/2016:Stage Unknown(rpT1c, pNX, cM0, G2, ER+, FL+, HER2-) - Signed by Cara Greene MD on 06/19/2021 Overview (03/31/2021): - Original diagnosed left breast in - Second lumpectomy for cancer in left breast 2016 - On anastrazole 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 Cancer Staging:Pathologic stage from 03/15/2018:FIGO Stage IIA, calculated as Stage Unknown(pT2a, pNX, cM0) - Signed by Penelope Carmona MD on 03/31/2021 Overview (03/31/2021): Malignant neoplasm of unspecified fallopian tube Cervical cancer 03/15/2018 Overview (03/31/2021): Malignant neoplasm of cervix uteri, unspecified Neuropathy Resolved Problems Problem Noted Date Diagnosed Date Resolved Date Other acute pancreatitis wit hout infection or necrosis 05/17/2024 05/23/2024 Transaminitis 05/17/2024 05/23/2024 Syncopal episodes 05/17/2024 05/23/2024 Encounters Date Type Department Care Team Description 07/02/2024 Telephone [facility] [address] [place] [address] Zeenat Caballero, PharmD 07/01/2024 10:15 AM EST - 07/01/2024 11:59 PM EST Hospital Encounter [facility] Infusion Clinic [address] [place] [id number] Vaginal bleeding (Primary Dx); Malignant neoplasm of cervix, unspecified site (CMS/HCC); Carcinoma of fallopian tube, unspecified laterality (CMS/HCC); Malignant neoplasm of left breast in female, estrogen receptor positive, unspecified site of breast (CMS/HCC); Osteopenia, unspecified location; History of aromatase inhibitor therapy Discharge Disposition: Home or Self Care 07/01/2024 9:00 AM EST Office Visit [facility] Gynecology [address] [place] [address] Penelope Carmona MD Carcinoma of fallopian tube, unspecified laterality (CMS/HCC) (Primary Dx); Encounter for antineoplastic chemotherapy; Vaginal bleeding; H/O acute pancreatitis; CEZAR (acute kidney injury) (CMS/HCC) 07/01/2024 Travel 06/13/2024 Telephone [facility] Gynecology [address] [place] [address] Penelope Carmona MD 06/10/2024 3:00 PM EST - 06/10/2024 11:59 PM EST Hospital Encounter [facility] [address] [place] [phone] Carcinoma of fallopian tube, unspecified laterality (CMS/HCC) (Primary Dx) Discharge Disposition: Home or Self Care 06/10/2024 2:00 PM EST Office Visit [facility] [address] [place] [address] Penelope Carmona MD Carcinoma of fallopian tube, unspecified laterality (CMS/HCC) (Primary Dx); Acute pancreatitis, unspecified complication status, unspecified pancreatitis type 06/10/2024 Travel 05/24/2024 Travel 05/22/2024 Telephone [facility] Emergency Department Specialty [facility] [address] [place] [address] Miriam Meyer, PharmD 05/20/2024 Travel 05/19/2024 Travel 05/18/2024 Travel 05/17/2024 7:33 PM EDT - 05/23/2024 4:06 PM EDT Hospital Encounter [facility] [address] [place] [address] Ray Gomez MD Arora, Ankit, MD Elhelw, Mohamed E, MD Martinez Hernandez, Elizabeth, MD Discharge Disposition: Rehab Facility 05/17/2024 Travel 05/17/2024 Orders Only External Location [address] [place] [address] Ray Gomez MD 05/17/2024 Orders Only External Location [address] [place] [phone] Ray Gomez MD 05/17/2024 Orders Only External Location [address] [place] [address] Ray Gomez MD 04/29/2024 2:30 PM EDT - 04/29/2024 11:59 PM EDT Hospital Encounter [facility] [address] [place] [address] Carcinoma of fallopian tube, unspecified laterality (CMS/HCC) (Primary Dx) Discharge Disposition: Home or Self Care 04/29/2024 1:15 PM EDT Office Visit [facility] [address] [place] [address] Penelope Carmona MD Carcinoma of fallopian tube, unspecified laterality (CMS/HCC) (Primary Dx); Encounter for antineoplastic chemotherapy; Malignant neoplasm of overlapping sites of left breast in female, estrogen receptor positive (CMS/HCC); Neuropathy; Vaginal bleeding 04/29/2024 Travel 04/24/2024 Telephone [facility] [address] [place] [address] Miriam Meyer, PharmD 04/22/2024 2:24 PM EDT - 04/22/2024 11:59 PM EDT Hospital Encounter [facility] [address] [place] [phone] Carcinoma of fallopian tube, unspecified laterality (CMS/HCC) Discharge Disposition: Home or Self Care 04/22/2024 Travel 04/10/2024 Telephone [facility] [address] [place] [address] Sadaf Perea RN from Last 3 Months Immunizations Name Administration Dates Next Due Influenza, Unspecified 04/29/2020 Influenza, high-dose, quadrivalent 05/30/2019, Influenza, injectable, quadrivalent 06/04/2021,0 09/08/2015 Influenza, injectable, quadrivalent, preservativ e free 08/12/2014 Influenza, trivalent, adjuvanted 05/26/2017 [employer] COVID-19 Vaccine (Purple Cap) 12 + 10/07/2020,09/09/2020 Pneumococcal Conjugate PCV 13 08/12/2014 Pneumococcal Polysaccharide PPV23 09/08/2015 Family History Medical History Relation Name Comments Cardiac disorder Brother 1 Diabetes Brother 2 Hypertension Brother 3 Breast cancer Cousin 1 Family history of malignant neoplasm of breast Breast cancer Cousin 2 Family history of malignant neoplasm of breast Cardiac disorder Father Prostate cancer Father Family histo ry of malignant neoplasm of prostate Cardiac disorder Mother Colon cancer Other 1 Family history of colon cancer Hypertension Other 2 Diabetes Sister 1 Hypertension Sister 2 Relation Name Status Comments Brother 1 Brother 2 Brother 3 Cousin 1 Cousin 2 Father Mother Other 1 Other 2 Sister 1 Sister 2 Social History Tobacco Use Types Packs/Day Years Used Date Smoking Tobacco: Former Cigarettes 0.5 22 1 976 - 1997 Passive Smoke Exposure: Past Smokeless Tobacco: Former Tobacco Cessation:Counseling Given: Not Answered Alcohol Use Standard Drinks/Week Comments Not Currently [...] Date Recorded Patient Health Questionnaire-2 Score 0 07/01/2024 Hunger Vital Sign Answer Date Recorded Within [...] place to sleep or slept in a alf (including now)? No 05/20/2024 PHQ-9 Answer Date Recorded Patient Health Questionnaire-9 Score 0 06/10/2024 Utilities Answer Date Recorded In the past [...] on file Sexual Orientation Not on file Last Filed Vital Signs Vital Sign Reading Time Taken Comments Blood Pressure 130/76 07/01/2024 2:36 PM EST Pulse 72 07/01/2024 10:24 AM EST Temperature 36.8 ??C (98.2 ??F) 07/01/2024 10:[address] Respiratory Rate 18 07/01/2024 10:24 AM EST Oxygen Saturation 96% 07/01/2024 10:24 AM EST Inhaled Oxygen Concentration - - Weight 73.1 kg (161 lb 2.5 oz) 07/01/2024 10:24 AM EST Height 160 cm (5' 3 ) 07/01/2024 10:24 AM EST Body Mass Index 28.55 07/01/2024 10:24 AM EST Plan of Treatment Upcoming Encounters Date Type Department Care Team (Late st Contact Info) Description 08/05/2024 8:00 AM EST Office Visit [facility] [address] [place] [address] Penelope Carmona MD [address] [place] [address] 08/05/2024 9:30 AM EST Appointment [facility] [address] [place] [address] 02/26/2025 9:30 AM EDT Appointment [facility] [place] [address] [facility] [address] [place] [address] 02/26/2025 10:30 AM EDT Office Visit [facility] [address] [facility]nd [place] [address] Berenice Resendez, MECHANIC WELDER [address] [facility] [address] [facility] [address] [place] [address] Health Maintenance Due Date Last Done Comments [facility] Annual Wellness (AWV) 1945 [facility]-Infant/Child/Adol SDOH Screenings 1945 [facility]-HIB Vaccines (1 of 1 - Risk 1-dose series) 12/25/1946 [facility]-Zoster Vaccines (1 of 2) 1964 [facility]-RSV Vaccine: 60+ Years or (1 - 1-dose 75+ series) 2020 [id number] Vaccine ( season) 2024 05/05/2021, 10/07/2020, 09/09/2020 [facility]-Influenza Vaccine (#1) 03/31/202406/08, 06/04/2021, 04/30/2020, Additional history exists [facility]-Bone Density Scan 08/23/2024 08/23/2022 , 08/23/2022, 04/05/2019, Additional history exists [facility]- SDOH Screenings 11/18/2024 [facility]-Adult SDOH Screenings 11/18/2024 05/20/2024 [facility]-Depression Screening 07/01/2025 024, 06/10/2024, 04/25/2022 [facility]-DTaP,Tdap,and Td Vaccines (2 - Td or Tdap) 12/15/2033 12/16/2023 [facility]-Pneumococcal Vaccine: 65+ Years Completed 07/19/2023, 09/08/2015, 08/12/2014 [facility]-Hepatitis C Screening Completed 05/17/2024 [facility]-Obesity Intervention Completed 05/17/2024, 08/01 [facility]-HPV Vaccines Aged Out No longer e ligible based on patient's age to complete this topic [facility]-Hepatitis A Vaccines Aged Out No longer eligible based on patient's age to complete this topic [facility]-IPV Vaccines Aged Out No longer e ligible based on patient's age to complete this topic [facility]-Rotavirus Vaccines Aged Out No lo nger eligible based on patient's age to complete this topic Procedures Procedure Name Priority Date/Time Associated Diagnosis Comments PROTEIN, URINE, RANDOM WITH CREATININE Routine 07/01/2024 11:33 AM EST Vaginal bleeding Malignant neoplasm of cervix, unspecified site (CMS/HCC) URINALYSIS MICROSCOPIC FOR UA REFLEX Routine 07/01/2024 10:16 AM EST Carcinoma of fallopian tube, unspecified laterality (CMS/HCC) URINALYSIS WITH REFLEX MICROSCOPIC Routine 07/01/2024 10:16 AM EST Carcinoma of fallopian tube, unspecified laterality (CMS/HCC) CBC WITH AUTO DIFFERENTIAL STAT 07/01/2024 10:09 AM EST Carcinoma of fallopian tube, unspecified laterality (CMS/HCC) COMPREHENSIVE METABOLIC PANEL, PLASMA STAT 07/01/2024 10:09 AM EST Carcinoma of fallopian tube, unspecified laterality (CMS/HCC) CA 125 Routine 07/01/2024 10:09 AM EST Carcinoma of fallopian tube, unspecified laterality (CMS/HCC) LIPASE, PLASMA Add-On 06/10/2024 2:51 PM EST Carcinoma of fallopian tube, unspecified laterality (CMS/HCC) CBC WITH AUTO DIFFERENTIAL Routine 06/10/2024 2:51 PM EST Carcinoma of fallopian tube, unspecified laterality (CMS/HCC) COMPREHENSIVE METABOLIC PANEL, PLASMA Routine 06/10/2024 2:51 PM EST Carcinoma of fallopian tube, unspecified laterality (CMS/HCC) CA 125 Routine 06/10/2024 2:51 PM EST Carcinoma of fallopian tube, unspecified laterality (CMS/HCC) CBC W/O DIFFERENTIAL Routine 05/23/2024 2:52 AM EDT RENAL FUNCTION PANEL, PLASMA Routine 05/23/2024 2:52 AM EDT MAGNESIUM, PLASMA Routine 05/23/2024 2:5 2 AM EDT POCT GLUCOSE METER UNSOLICITED RESULTS Routine 05/22/2024 7:19 AM EDT PHOSPHORUS, PLASMA Routine 05/22/2024 5: 39 AM EDT MAGNESIUM, PLASMA Routine 05/22/2024 5:3 9 AM EDT COMPREHENSIVE METABOLIC PANEL, PLASMA Routine 05/22/2024 5:39 AM EDT CBC W/O DIFFERENTIAL Routine 05/22/2024 5:39 AM EDT POCT GLUCOSE METER UNSOLICITED RESULTS Routine 05/21/2024 9:24 PM EDT POCT GLUCOSE METER UNSOLICITED RESULTS Routine 05/21/2024 8:52 PM EDT POCT GLUCOSE METER UNSOLICITED RESULTS Routine 05/21/2024 7:50 PM EDT POCT GLUCOSE METER UNSOLICITED RESULTS Routine 05/21/2024 6:42 PM EDT PHOSPHORUS, PLASMA Routine 05/21/2024 4: 55 AM EDT MAGNESIUM, PLASMA Routine 05/21/2024 4:5 5 AM EDT COMPREHENSIVE METABOLIC PANEL, PLASMA Routine 05/21/2024 4:55 AM EDT CBC W/O DIFFERENTIAL Routine 05/21/2024 4:55 AM EDT PHOSPHORUS, PLASMA Routine 05/20/2024 9: 04 AM EDT MAGNESIUM, PLASMA Routine 05/20/2024 9:0 4 AM EDT COMPREHENSIVE METABOLIC PANEL, PLASMA Routine 05/20/2024 9:04 AM EDT CBC W/O DIFFERENTIAL Routine 05/20/2024 9:04 AM EDT US ABDOMEN DOPPLER LIMITED Routine 05/20/2024 1:54 AM EDT POCT GLUCOSE METER UNSOLICITED RESULTS Routine 05/19/2024 6:55 PM EDT POCT GLUCOSE METER UNSOLICITED RESULTS Routine 05/19/2024 5:[address] ABDOMEN PELVIS WO IV CONTRAST STAT 05/19/2024 5:13 PM EDT POCT GLUCOSE METER UNSOLICITED RESULTS Routine 05/19/2024 11:26 AM EDT XR ABDOMEN 1 VIEW Routine 05/19/2024 9:4 5 AM EDT MAGNESIUM, PLASMA STAT 05/19/2024 9:2 0 AM EDT PHOSPHORUS, PLASMA STAT 05/19/2024 9: 20 AM EDT COMPREHENSIVE METABOLIC PANEL, PLASMA STAT 05/19/2024 9:20 AM EDT CBC WITH AUTO DIFFERENTIAL STAT 05/19/2024 9:20 AM EDT POCT GLUCOSE METER UNSOLICITED RESULTS Routine 05/19/2024 6:00 AM EDT POCT GLUCOSE METER UNSOLICITED RESULTS Routine 05/19/2024 12:06 AM EDT POCT GLUCOSE METER UNSOLICITED RESULTS Routine 05/18/2024 6:04 PM EDT IMMUNOGLOBULIN G SUBCLASS 4 (SO) Routine 05/18/2024 4:38 PM EDT MRCP W AND WO IV CONTRAST STAT 05/18/2024 1:01 PM EDT POCT GLUCOSE METER UNSOLICITED RESULTS Routine 05/18/2024 6:31 AM EDT POCT GLUCOSE METER UNSOLICITED RESULTS Routine 05/18/2024 5:55 AM EDT PERIPHERAL BLOOD SMEAR, PATHOLOGIST INTERPRETATION Routine 05/18/2024 2:35 AM EDT PERIPHERAL BLOOD SMEAR, PSMEAR Routine 05/18/2024 2:35 AM EDT TRIGLYCERIDES, PLASMA Add-On 05/18/2024 2:35 AM EDT LIPASE, PLASMA Add-On 05/18/2024 2:35 AM EDT FOLATE, SERUM Add-On 05/18/2024 2:35 AM EDT TROPONIN T, HIGH SENSITIVITY, 2 HOUR, PLASMA Timed 05/18/2024 2:35 AM EDT PROTHROMBIN TIME(PT) / INR Routine 05/18/2024 2:35 AM EDT PHOSPHORUS, PLASMA Routine 05/18/2024 2: 35 AM EDT MAGNESIUM, PLASMA Routine 05/18/2024 2:3 5 AM EDT COMPREHENSIVE METABOLIC PANEL, PLASMA Routine 05/18/2024 2:35 AM EDT URINALYSIS MICROSCOPIC FOR UA REFLEX Routine 05/18/2024 1:23 AM EDT URINALYSIS WITH REFLEX MICROSCOPIC Routine 05/18/2024 1:23 AM EDT COMPREHENSIVE URINE DRUG SCREENING,QUALITATIVE ASSAY, >= 27 DRUG CLASSES Routine 05/18/2024 1:23 AM EDT POCT GLUCOSE METER UNSOLICITED RESULTS Routine 05/17/2024 11:43 PM EDT US ABDOMEN FOCUSED REGION STAT 05/17/2024 11:01 PM EDT ECG ADULT Routine 05/17/2024 9:45 PM EDT SARS COV-2/COVID-19 BY PCR - RAPID Routine 05/17/2024 9:27 PM EDT NASOPHARYNGEAL RESPIRATORY PANEL Routine 05/17/2024 9:27 PM EDT VITAMIN B12, SERUM Add-On 05/17/2024 9: 24 PM EDT CONJUGATED BILIRUBIN, PLASMA Add-On 05/17/2024 9:24 PM EDT HEMOGLOBIN A1C Add-On 05/17/2024 9:24 PM EDT LIPASE, PLASMA STAT 05/17/2024 9:24 PM EDT TROPONIN T, HIGH SENSITIVITY, 0 HOUR, PLASMA, REFLEX TO 2 HOUR STAT 05/17/2024 9:24 PM EDT HIV 1/2 ANTIBODY/ANTIGEN SCREEN WITH REFLEX TO HIV I/II DIFFERENTIATION Routine 05/17/2024 9:24 PM EDT GAMMA GLUTAMYLTRANSFERASE, PLASMA Routine 05/17/2024 9:24 PM EDT FERRITIN, SERUM Routine 05/17/2024 9:24 PM EDT LACTATE DEHYDROGENASE, PLASMA Routine 05/17/2024 9:24 PM EDT C-REACTIVE PROTEIN, PLASMA Routine 05/17/2024 9:24 PM EDT ROJELIO COELLO VIRUS (EBV) QUANTITATIVE PCR Routine 05/17/2024 9:24 PM EDT CYTOMEGALOVIRUS (CMV) QUANTITATIVE PCR Routine 05/17/2024 9:24 PM EDT HIV 1/2 ANTIBODY/ANTIGEN SCREEN W/REFLEX TO HIV 1/2 ANTIBODY DIFFERENTIATION Routine 05/17/2024 9:24 PM EDT ACUTE HEPATITIS PANEL Routine 05/17/2024 9:24 PM EDT LIPID PROFILE, PLASMA STAT 05/17/2024 9:24 PM EDT PHOSPHORUS, PLASMA STAT 05/17/2024 9: 24 PM EDT MAGNESIUM, PLASMA STAT 05/17/2024 9:2 4 PM EDT CBC WITH AUTO DIFFERENTIAL STAT 05/17/2024 9:24 PM EDT COMPREHENSIVE METABOLIC PANEL, PLASMA STAT 05/17/2024 9:24 PM EDT BLOOD CULTURE (AEROBIC/ANAEROBIC SET) STAT 05/17/2024 9:24 PM EDT XR CHEST 1 VIEW STAT 05/17/2024 9:[address] OUTSIDE IMAGES 05/17/2024 1:[address] OUTSIDE IMAGES 05/17/2024 1:3 0 PM EDT XR OUTSIDE IMAGES 05/17/2024 12: 51 PM EDT URINALYSIS MICROSCOPIC FOR UA REFLEX Routine 04/29/2024 1:42 PM EDT Carcinoma of fallopian tube, unspecified laterality (CMS/HCC) CA 125 Routine 04/29/2024 1:42 PM EDT Carcinoma of fallopian tube, unspecified laterality (CMS/HCC) URINALYSIS WITH REFLEX MICROSCOPIC Routine 04/29/2024 1:42 PM EDT Carcinoma of fallopian tube, unspecified laterality (CMS/HCC) CT ABDOMEN PELVIS W IV CONTRAST Routine 04/22/2024 3:31 PM EDT Carcinoma of fallopian tube, unspecified laterality (CMS/HCC) CT CHEST W IV CONTRAST Routine 3:31 PM EDT Carcinoma of fallopian tube, unspecified laterality (CMS/HCC) from Last 3 Months Results * Protein, Random, Urine with Creatinine (07/01/2024 11:33 AM EST) Protein, Urine 61 mg/dL 07/01/2024 12:25 PM EST [facility] Creatinine, Urine 66 mg/dL 07/01/2024 12:25 PM EST [facility] Protein/Creatin ine Ratio 0.9 mg/mg Creat 07/01/2024 12:25 PM EST [facility] Urine Urine specimen obtained by clean catch procedure / Unknown Non-blood Collection / Unknown 07/01/2024 11:33 AM EST 07/01/2024 11:44 AM EST us Penelope Dodson MD LAB URINE ORDERABLES Final Result [facility] [address] [place] [address] * Urinalysis Microscopic Examination (07/01/2024 10:16 AM EST) Only the most recent of3 resultswithin the time period is included. Urine Urine specimen obtained by clean catch procedure / Unknown Non-blood Collection / Unknown 07/01/2024 10:16 AM EST 07/01/2024 10:48 AM EST us Penelope Dodson MD LAB URINE ORDERABLES Final Result [facility] [address] [place] [address] * (ABNORMAL) Urinalysis with reflex microscopic (Culture NOT Included) (07/01/2024 10:16 AM EST) Only the most recent of3 resultswithin the time period is included. Color, Urine Yellow LAB URINALYSIS - AUTOMATED METHOD 07/01/2024 11:11 AM [facility] Clarity, Urine Cloudy LAB URINALYSIS - AUTOMATED METHOD 07/01/2024 11:11 AM [facility] Spec [place], Urine 1.018 1.005 - 1.030 LAB URINALYSIS - AUTOMATED METHOD 07/01/2024 11:11 AM [facility] pH, Urine 5.5 4.5 to 8 LAB URINALYSIS - AUTOMATED METHOD 07/01/2024 11:11 AM [facility] Protein, Urine >=300(A) Negative mg/dL LAB URINALYSIS - AUTOMATED METHOD 07/01/2024 11:11 AM [facility] Glucose, Urine Negative Negative mg/dL LAB URINALYSIS - AUTOMATED METHOD 07/01/2024 11:11 AM [facility] Ketones, Urine Trace(A) Negative mg/dL LAB URINALYSIS - AUTOMATED METHOD 07/01/2024 11:11 AM [facility] Blood, Urine Large(A) Negative LAB URINALYSIS - AUTOMATED METHOD 07/01/2024 11:11 AM [facility] Bilirubin, Urine Negative Negative LAB URINALYSIS - AUTOMATED METHOD 07/01/2024 11:11 AM [facility] Urobilinogen, Urine 1.0 0.2 to 1.0 mg/dL LAB URINALYSIS - AUTOMATED METHOD 07/01/2024 11:11 AM [facility] Leukocytes, Urine Moderate(A) Negative LAB URINALYSIS - AUTOMATED METHOD 07/01/2024 11:11 AM [facility] Nitrite, Urine Negative Negative LAB URINALYSIS - AUTOMATED METHOD 07/01/2024 11:11 AM EST [facility] RBC, Urine >50(A) 0 to 3 /HPF LAB URINALYSIS - AUTOMATED METHOD 07/01/2024 11:11 AM EST [facility] WBC, Urine >50(A) 0 to 5 /HPF LAB URINALYSIS - AUTOMATED METHOD 07/01/2024 11:11 AM EST [facility] Squamous Epithelial Cells 0 - 2 0 to 5 /HPF LAB URINALYSIS - AUTOMATED METHOD 07/01/2024 11:11 AM EST [facility] Hyaline Casts 11 - 20(A) 0 to 5 /LPF LAB URINALYSIS - AUTOMATED METHOD 07/01/2024 11:11 AM EST [facility] Bacteria, Urine Negative Negative LAB URINALYSIS - AUTOMATED METHOD 07/01/2024 11:11 AM EST [facility] Urine Urine specimen obtained by clean catch procedure / Unknown Non-blood Collection / Unknown 07/01/2024 10:16 AM EST 07/01/2024 10:48 AM EST Penelope Dodson MD LAB URINE ORDERABLES Final Result [facility] [address] [place] [address] * (ABNORMAL) CBC and Differential (07/01/2024 10:09 AM EST) Only the most recent of4 resultswithin the time period is included. WBC Count 9.09 3.70 - 10.30 10*3/uL LAB HEMATOLOGY METHOD 07/01/2024 10:43 AM EST [facility] RBC Count 2.91(L) 3.90 - 5.20 10*6/uL LAB HEMATOLOGY METHOD 07/01/2024 10:43 AM EST [facility] HGB 9.9(L) 11.2 - 15.7 g/dL LAB HEMATOLOGY METHOD 07/01/2024 10:43 AM EST [facility] HCT 31.3(L) 34.0 - 45.0 % LAB HEMATOLOGY METHOD 07/01/2024 10:43 AM EST [facility] Platelet Count 187 155 - 369 10*3/uL LAB HEMATOLOGY METHOD 07/01/2024 10:43 AM EST [facility] MCV 108(H) 79 - 98 fL LAB HEMATOLOGY METHOD 07/01/2024 10:43 AM EST [facility] MCH 34.0(H) 26.0 - 32.0 pg LAB HEMATOLOGY METHOD 07/01/2024 10:43 AM EST [facility] MCHC 31.6 30.7 - 35.5 g/dL LAB HEMATOLOGY METHOD 07/01/2024 10:43 AM EST [facility] RDW 16.4(H) 11.5 - 14.5 % LAB HEMATOLOGY METHOD 07/01/2024 10:43 AM EST [facility] MPV 9.2 8.8 - 12.5 fL LAB HEMATOLOGY METHOD 07/01/2024 10:43 AM [facility] nRBC 0.0 <=0.0 per 100 WBCs LAB HEMATOLOGY METHOD 07/01/2024 10:43 AM [facility] Differential Type Automated LAB HEMATOLOGY METHOD 07/01/2024 10:43 AM [facility] Neutrophils % 86 % LAB HEMATOLOGY METHOD 07/01/2024 10:43 AM [facility] Lymphocytes % 5 % LAB HEMATOLOGY METHOD 07/01/2024 10:43 AM [facility] Monocytes % 5 % LAB HEMATOLOGY METHOD 07/01/2024 10:43 AM [facility] Eosinophils % 3 % LAB HEMATOLOGY METHOD 07/01/2024 10:43 AM [facility] Basophils % 1 % LAB HEMATOLOGY METHOD 07/01/2024 10:43 AM [facility] Immature Granulocytes % 0 % LAB HEMATOLOGY METHOD 07/01/2024 10:43 AM [facility] Neutrophils Absolute 7.81(H) 1.60 - 6.10 10*3/uL LAB HEMATOLOGY METHOD 07/01/2024 10:43 AM [facility] Lymphocytes Absolute 0.45(L) 1.20 - 3.90 10*3/uL LAB HEMATOLOGY METHOD 07/01/2024 10:43 AM EST [facility] Monocytes Absolute 0.47 0.30 - 0.90 10*3/uL LAB HEMATOLOGY METHOD 07/01/2024 10:43 AM EST [facility] Eosinophils Absolute 0.26 0.00 - 0.50 10*3/uL LAB HEMATOLOGY METHOD 07/01/2024 10:43 AM EST [facility] Basophils Absolute 0.06 0.00 - 0.10 10*3/uL LAB HEMATOLOGY METHOD 07/01/2024 10:43 AM [facility] Immature Granulocytes Absolute 0.04 0.00 - 0.06 10*3/uL LAB HEMATOLOGY METHOD 07/01/2024 10:43 AM EST [facility] Blood Blood sample taken from central line / Unknown (Port) Long-term Catheter / Unknown 07/01/2024 10:09 AM EST 07/01/2024 10:38 AM EST Narrative [facility] - 07/01/2024 10:43 AM EST Therapeutic decision making should be based on absolute values, rather than percentages. Penelope Dodson MD LAB BLOOD ORDERABLES Final Result Performing Organization Address City/[facility]/ZIP Co de Phone Number [facility] [address] [place] [address] * CA 125 (07/01/2024 10:09 AM EST) Only the most recent of3 resultswithin the time period is included. CA 125 18.80 <=38.00 U/mL 07/01/2024 10:58 AM EST [facility] Blood Venous blood specimen / Unknown Venipuncture / Unknown 07/01/2024 10:09 AM EST 07/01/2024 10:20 AM EST [facility] LAB - 07/01/2024 10:58 AM EST Performed by Stephie electrochemiluminescent immunoassay. Results obtained with different test methods or kits cannot be used interchangeably. Penelope Dodson MD LAB BLOOD ORDERABLES Final Result Performing Organization Address City/[facility]/ZIP Co de Phone Number [facility] [address] [place] [address] * (ABNORMAL) Comprehensive metabolic panel (07/01/2024 10:09 AM EST) Only the most recent of8 resultswithin the time period is included. Glucose, Plasma 168(H) 74 - 99 mg/dL 07/01/2024 10:47 AM EST [facility] BUN, Plasma 30(H) 8 - 23 mg/dL 07/01/2024 10:47 AM EST [facility] Creatinine, Plasma 1.43(H) 0.60 - 1.10 mg/dL 07/01/2024 10:47 AM [facility] BUN/Creatinine Ratio 21 07/01/2024 10:47 AM [facility] Sodium, Plasma 137 136 - 145 mmol/L 07/01/2024 10:47 AM [facility] Potassium, Plasma 4.5 3.6 - 4.9 mmol/L 07/01/2024 10:47 AM [facility] Chloride, Plasma 101 97 - 107 mmol/L 07/01/2024 10:47 AM [facility] CO2, Plasma 24 22 - 29 mmol/L 07/01/2024 10:47 AM [facility] Anion Gap 12 6 - 16 mmol/L 07/01/2024 10:47 AM [facility] Total Calcium, Plasma 9.0 8.9 - 10.2 mg/dL 07/01/2024 10:47 AM [facility] Total Protein 6.6 6.3 - 7.9 g/dL 07/01/2024 10:47 AM [facility] Albumin, Plasma 3.2(L) 3.5 - 5.2 g/dL 07/01/2024 10:47 AM [facility] AST, Plasma 28 10 - 35 U/L 07/01/2024 10:47 AM [facility] ALT, Plasma 9(L) 10 - 35 U/L 07/01/2024 10:47 AM [facility] Alkaline Phosphatase, Plasma 70 46 - 142 U/L 07/01/2024 10:47 AM [facility] Total Bilirubin, Plasma 0.4 0.2 - 1.1 mg/dL 07/01/2024 10:47 AM [facility] eGFRcr 37.6 mL/min/1.7 3m*2 07/01/2024 10:47 AM [facility] Comment:Reported eGFRcr in m L/min/1.73m2 is based the CKD-EPI 2020 equation that does not use a race coefficient. Blood Blood sample taken from central line / Unknown (Port) Long-term Catheter / Unknown 07/01/2024 10:09 AM EST 07/01/2024 10:18 AM EST us Penelope Dodson MD LAB BLOOD ORDERABLES Final Result [facility] [address] [place] [address] * Lipase (06/10/2024 2:51 PM EST) Only the most recent of3 resultswithin the time period is included. Lipase, Plasma 32 19 - 63 U/L 06/10/2024 4:28 PM EST [facility] Blood Venous blood specimen / Unknown (Port) Long-term Catheter / Unknown 06/10/2024 2:51 PM EST 06/10/2024 3:14 PM EST us Penelope Dodson MD LAB BLOOD ORDERABLES Final Result Performing Organization Address [facility] Co de Phone Number [facility] [address] [place] [address] * (ABNORMAL) CBC W/O Differential (05/23/2024 2:52 AM EDT) Only the most recent of4 resultswithin the time period is included. Pathologist [facility] WBC Count 8.40 3.70 - 10.30 10*3/uL LAB HEMATOLOGY METHOD 05/23/2024 3:28 AM EDT [facility] RBC Count 2.72(L) 3.90 - 5.20 10*6/uL LAB HEMATOLOGY METHOD 05/23/2024 3:28 AM EDT [facility] HGB 9.9(L) 11.2 - 15.7 g/dL LAB HEMATOLOGY METHOD 05/23/2024 3:28 AM EDT [facility] HCT 29.2(L) 34.0 - 45.0 % LAB HEMATOLOGY METHOD 05/23/2024 3:28 AM EDT [facility] Platelet Count 96(L) 155 - 369 10*3/uL LAB HEMATOLOGY METHOD 05/23/2024 3:28 AM EDT [facility] MCV 107(H) 79 - 98 fL LAB HEMATOLOGY METHOD 05/23/2024 3:28 AM EDT [facility] MCH 36.4(H) 26.0 - 32.0 pg LAB HEMATOLOGY METHOD 05/23/2024 3:28 AM EDT [facility] MCHC 33.9 30.7 - 35.5 g/dL LAB HEMATOLOGY METHOD 05/23/2024 3:28 AM EDT [facility] RDW 16.2(H) 11.5 - 14.5 % LAB HEMATOLOGY METHOD 05/23/2024 3:28 AM EDT [facility] MPV 10.4 8.8 - 12.5 fL LAB HEMATOLOGY METHOD 05/23/2024 3:28 AM EDT [facility] nRBC 0.0 <=0.0 per 100 WBCs LAB HEMATOLOGY METHOD 05/23/2024 3:28 AM EDT [facility] Blood Venous blood specimen / Unknown Venipuncture / Unknown 05/23/2024 2:52 AM EDT 05/23/2024 3:18 AM EDT Lizzeth Guevara MD LAB BLOOD ORDERA BLES Final Result Performing Organization Address City/[facility] Co de Phone Number [facility] [address] [place] [address] * Magnesium (05/23/2024 2:52 AM EDT) Only the most recent of7 resultswithin the time period is included. Pathologist [facility] Magnesium, Plasma 1.9 1.9 - 2.4 mg/dL 05/23/2024 3:47 AM EDT [facility] Blood Venous blood specimen / Unknown Venipuncture / Unknown 05/23/2024 2:52 AM EDT 05/23/2024 3:18 AM EDT us Rosa Chisholm MD LAB BLOOD ORDERABLES Final R esult Performing Organization Address City/[facility]/ZIP Co de Phone Number [facility] [address] [place] [address] * (ABNORMAL) Renal Function Panel, Plasma (05/23/2024 2:52 AM EDT) Glucose, Plasma 71(L) 74 - 99 mg/dL 05/23/2024 3:47 AM EDT [facility] BUN, Plasma 19 8 - 23 mg/dL 05/23/2024 3:47 AM EDT [facility] Creatinine, Plasma 0.74 0.60 - 1.10 mg/dL 05/23/2024 3:47 AM EDT [facility] BUN/Creatinine Ratio 26 05/23/2024 3:47 AM EDT [facility] Sodium, Plasma 132(L) 136 - 145 mmol/L 05/23/2024 3:47 AM EDT [facility] Potassium, Plasma 4.6 3.6 - 4.9 mmol/L 05/23/2024 3:47 AM EDT [facility] Chloride, Plasma 100 97 - 107 mmol/L 05/23/2024 3:47 AM EDT [facility] CO2, Plasma 23 22 - 29 mmol/L 05/23/2024 3:47 AM EDT [facility] Anion Gap 9 6 - 16 mmol/L 05/23/2024 3:47 AM EDT [facility] Total Calcium, Plasma 7.5(L) 8.9 - 10.2 mg/dL 05/23/2024 3:47 AM EDT [facility] Phosphorus, Plasma 3.7 2.5 - 4.5 mg/dL 05/23/2024 3:47 AM EDT [facility] Albumin, Plasma 2.3(L) 3.5 - 5.2 g/dL 05/23/2024 3:47 AM EDT [facility] eGFRcr 82.9 mL/min/1.7 3m*2 05/23/2024 3:47 AM EDT [facility] Comment:Reported eGFRcr in m L/min/1.73m2 is based the CKD-EPI 2020 equation that does not use a race coefficient. Blood Venous blood specimen / Unknown Venipuncture / Unknown 05/23/2024 2:52 AM EDT 05/23/2024 3:18 AM EDT us Lizzeth Guevara MD LAB BLOOD ORDERA BLES Final Result [facility] [address] [place] [address] * (ABNORMAL) POCT glucose meter (05/22/2024 7:19 AM EDT) Only the most recent of14 resultswithin the time period is included. [facility] POCT Glucose 111(H) 74 - 99 mg/dL 05/22/2024 7:21 AM EDT [facility] Comment:Accuracy of a glucos e result obtained from a capillary whole blood specimen relies upon adequate, non-compromised capillary blood flow. If the capillary glucose result is not consistent with the patient's clinical signs and symptoms, glucose testing should be repeated with either an arterial or venous sample on the glucometer or sent to the main labortory for testing. Comment 05/22/2024 7:21 AM EDT [facility] Chief Relay Tester ID Wanda [id number] [id number] 7:21 AM EDT [facility]ALTH[facility] LAB Device ID [id number] 05/22/2024 7:21 AM EDT [facility] Specimen Type POC Capillary 05/22/2024 7:21 AM EDT [facility] Blood Capillary blood specimen / Unknown 05/22/2024 7:19 AM EDT 05/22/2024 7:21 AM EDT Lizzeth Guevara MD LAB POIN T OF CARE TEST DOCKED DEVICE UNSOLICITED RESULTS Final Result Performing Organization Address City/[facility]/ZIP Co de Phone Number [facility] [address] [place] [address] * (ABNORMAL) Phosphorus (05/22/2024 5:39 AM EDT) Only the most recent of6 resultswithin the time period is included. [facility] Phosphorus, Plasma 1.4(L) 2.5 - 4.5 mg/dL 05/22/2024 6:40 AM EDT [facility] Blood Venous blood specimen / Unknown Venipuncture / Unknown 05/22/2024 5:39 AM EDT 05/22/2024 6:13 AM EDT us Rosa Chisholm MD LAB BLOOD ORDERABLES Final R esult [facility] [address] [place] [address] * US Abdomen Doppler Limited (05/20/2024 1:54 AM EDT) Anatomical Region Laterality Modality Abdomen Ultrasound Impressions 05/20/2024 9:37 AM EDT Patent hepatic vasculature with appropriate flow directionality. CRITICAL RESULT: ?? No. COMMUNICATION: Per this written report. Drafted by Bhavani Castillo MD on 05/20/2024 9:34 AM Final report signed by Bhavani Castillo MD on 05/20/2024 9:37 AM Narrative 05/20/2024 9:37 AM EDT CLINICAL INDICATION: suspected hepatic thrombosis versus splenic thrombosis - Hx of acute pancreatitis TECHNIQUE: Limited multiplanar adan scale ultrasound images of the right upper quadrant were obtained, accompanied by formal color Doppler and spectral waveform images of the hepatic vasculature. COMPARISON: CT dated 05/19/2024 FINDINGS: Duplex: Portal vein: There is antegrade flow within the main portal vein with a velocity of 47.3 cm/sec. Hepatic Artery: The main hepatic artery is patent with normal direction of flow. The resistive index is 0.84 . Peak systolic velocity is 138 cm/sec. There is no evidence of obvious stenosis. Hepatic veins: The hepatic veins are patent at the IVC confluence with normal direction of flow. Splenic vein: The visualized splenic vein is grossly patent with normal direction of flow. Procedure Note Bhavani Castillo MD - 05/20/2024 CLINICAL INDICATION: suspected hepatic thrombosis versus splenic thrombosis - Hx of acutepancreatitis TECHNIQUE: Limited multiplanar adan scale ultrasound images of the right upperquadrant were obtained, accompanied by formal color Doppler and spectralwaveform images of the hepatic vasculature. COMPARISON: CT dated 05/19/2024 FINDINGS: Duplex: Portal vein: There is antegrade flow within the main portal vein with avelocity of 47.3 cm/sec. Hepatic Artery: The main hepatic artery is patent with normal direction offlow. The resistive index is 0.84 . Peak systolic velocity is 138 cm/sec.There is no evidence of obvious stenosis. Hepatic veins: The hepatic veins are patent at the IVC confluence withnormal direction of flow. Splenic vein: The visualized splenic vein is grossly patent with normaldirection of flow. IMPRESSION: Patent hepatic vasculature with appropriate flow directionality. CRITICAL RESULT: No. COMMUNICATION: Per this written report. Drafted by Bhavani Castillo MD on 05/20/2024 9:34 AM Final report signed by Bhavani Castillo MD on 05/20/2024 9:37 AM us Rosa Chisholm MD IMG US PROCEDURES Final Resu lt * CT Abdomen Pelvis wo IV Contrast (05/19/2024 5:13 PM EDT) Anatomical Region Laterality Modality Abdomen, Pelvis Computed Tomogra phy Impressions 05/19/2024 6:59 PM EDT No evidence of free intraperitoneal air. Peripancreatic fat stranding/inflammation consistent with pancreatitis with small volume fluid tracking to the pelvis. Clinical correlation is recommended. New small bilateral pleural effusions and bibasilar consolidations. CRITICAL RESULT: ?? No. COMMUNICATION: Per this written report. Drafted by Linh Parham MD on 05/19/2024 6:54 PM Final report signed by Linh Parham MD on 05/19/2024 6:59 PM Narrative 05/19/2024 6:59 PM EDT CLINICAL INDICATION: Peritonitis or perforation suspected TECHNIQUE: Multiple axial CT images were obtained from lung bases through pubic symphysis without the administration of IV contrast. Reformatted images in the coronal and sagittal planes were generated from the axial data set to facilitate diagnostic accuracy. Total DLP (Dose-Length Product): 466.27 mGy.cm. Please note: The reported value represents the total of one or more individual components during the CT acquisition on this date and at this time, and as such, the same value may appear in more than one CT report depending on the interpreting/reporting physicians. COMPARISON: 04/22/2024 FINDINGS: Lower Chest: Right greater than left effusion and basilar consolidations. Analysis of the abdominopelvic viscera is limited by the absence of intravenous contrast material. Solid Abdominal Organs: Unremarkable liver. Absent gallbladder. No suspicious renal mass lesions. No hydronephrosis. Unremarkable spleen. No suspicious adrenal findings. Peripancreatic fat stranding extending to the pancreaticoduodenal groove is new. No peripancreatic fluid collection.. GI Tract/Mesentery/Peritoneum: Moderate diffuse distention of the proximal and mid colon by gas suggestive of ileus. No evidence of bowel obstruction. No pneumatosis or free intraperitoneal air.. Pelvic Viscera: No suspicious pelvic mass lesions. Lymph Nodes/Vasculature: Multiple prominent lymph nodes in the iliac chain and inguinal regions. The abdominal aorta and its branches are diffusely atherosclerotic. Free Fluid:Small volume fluid along the paracolic gutters to the pelvis Musculoskeletal and Body Wall:Probable cortical hernia containing fat and portion of the colon and small volume ascitic fluid Procedure Note Linh Parham MD - 05/19/2024 CLINICAL INDICATION: Peritonitis or perforation suspected TECHNIQUE: Multiple axial CT images were obtained from lung bases through pubicsymphysis without the administration of IV contrast. Reformatted images inthe coronal and sagittal planes were generated from the axial data set tofacilitate diagnostic accuracy. Total DLP (Dose-Length Product): 466.27 mGy.cm. Please note: The reportedvalue represents the total of one or more individual components during theCT acquisition on this date and at this time, and as such, the same valuemay appear in more than one CT report depending on theinterpreting/reporting physicians. COMPARISON: 04/22/2024 FINDINGS: Lower Chest: Right greater than left effusion and basilar consolidations. Analysis of the abdominopelvic viscera is limited by the absence ofintravenous contrast material. Solid Abdominal Organs: Unremarkable liver. Absent gallbladder. Nosuspicious renal mass lesions. No hydronephrosis. Unremarkable spleen. Nosuspicious adrenal findings. Peripancreatic fat stranding extending to thepancreaticoduodenal groove is new. No peripancreatic fluid collection.. GI Tract/Mesentery/Peritoneum: Moderate diffuse distention of the proximaland mid colon by gas suggestive of ileus. No evidence of bowelobstruction. No pneumatosis or free intraperitoneal air.. Pelvic Viscera: No suspicious pelvic mass lesions. Lymph Nodes/Vasculature: Multiple prominent lymph nodes in the iliac chainand inguinal regions. The abdominal aorta and its branches are diffuselyatherosclerotic. Free Fluid:Small volume fluid along the paracolic gutters to the pelvis Musculoskeletal and Body Wall:Probable cortical hernia containing fat andportion of the colon and small volume ascitic fluid IMPRESSION: No evidence of free intraperitoneal air. Peripancreatic fat stranding/inflammation consistent with pancreatitiswith small volume fluid tracking to the pelvis. Clinical correlation isrecommended. New small bilateral pleural effusions and bibasilar consolidations. CRITICAL RESULT: No. COMMUNICATION: Per this written report. Drafted by Linh Parham MD on 05/19/2024 6:54 PM Final report signed by Linh Parham MD on 05/19/2024 6:59 PM us Rosa Chisholm MD IMG CT PROCEDURES Final Resu lt * XR Abdomen 1 View (05/19/2024 9:45 AM EDT) Anatomical Region Laterality Modality Body Digital Radiogra phy Impressions 05/19/2024 12:25 PM EDT Possible pneumoperitoneum in the upper abdomen, please consider assessment with cross-sectional imaging CRITICAL RESULT: ?? No. COMMUNICATION: Per this written report. Drafted by Sung Schneider MD on 05/19/2024 12:23 PM Final report signed by Sung Schneider MD on 05/19/2024 12:25 PM Narrative 05/19/2024 12:25 PM EDT CLINICAL INDICATION: Ileus TECHNIQUE: Supine radiograph of the abdomen. COMPARISON: CT from 04/22/2024. FINDINGS: Gaseous distention of small and large bowel loops. There is paucity of gas in the distal left colon and rectum.. There is possible small amount of pneumoperitoneum in the upper abdomen. Surgical clips in the right upper abdomen. Procedure Note Sung Schneider MD - 05/19/2024 CLINICAL INDICATION: Ileus TECHNIQUE: Supine radiograph of the abdomen. COMPARISON: CT from 04/22/2024. FINDINGS: Gaseous distention of small and large bowel loops. There is paucity of gasin the distal left colon and rectum.. There is possible small amount ofpneumoperitoneum in the upper abdomen. Surgical clips in the right upperabdomen. IMPRESSION: Possible pneumoperitoneum in the upper abdomen, please consider assessmentwith cross-sectional imaging CRITICAL RESULT: No. COMMUNICATION: Per this written report. Drafted by Sung Schneider MD on 05/19/2024 12:23 PM Final report signed by Sung Schneider MD on 05/19/2024 12:25 PM Rosa Chisholm MD IMG XR PROCEDURES Final Resu lt * Immunoglobulin G Subclass 4 (SO) (05/18/2024 4:38 PM EDT) IMMUNOGLOBULIN G SUBCLASS 4 19 1 - 123 mg/dL 05/22/2024 4:35 AM EDT [facility] ([place]) Blood Venous blood specimen / Unknown Venipuncture / Unknown 05/18/2024 4:38 PM EDT 05/18/2024 4:52 PM EDT Narrative [facility] ([place]) - 05/22/2024 4:35 AM EDT REFERENCE INTERVAL: Immunoglobulin G Subclass 4 Access complete set of age- and/or gender-specific reference intervals for this test in the [facility] Laboratory Test Directory ([employer]). Performed By: [employer] [address] [place] [address] Guitar Teacher: Moo Rodriguez MD, PhD CLIA Number: [id number] us Rosa Chisholm MD LAB REF LAB BLOOD AND FLUID ORD Final Result [facility]) [address] [place] [id number] * MRCP w and wo IV Contrast (05/18/2024 1:01 PM EDT) Anatomical Region Laterality Modality Abdomen Magnetic Resonan ce Impressions 05/18/2024 2:26 PM EDT 1. Acute edematous interstitial pancreatitis. No peripancreatic collection. 2. No choledocholithiasis. 3. Small bilateral pleural effusions, right greater than left with right basilar atelectasis CRITICAL RESULT: No. COMMUNICATION: Per this written report. Drafted by Sung Schneider MD on 05/18/2024 2:03 PM Final report signed by Sung Schneider MD on 05/18/2024 2:26 PM Narrative 05/18/2024 2:26 PM EDT CLINICAL INDICATION: Liver disease, chronic, tumor screening TECHNIQUE: MR imaging of the abdomen was performed with and without intravenous contrast material using the following sequences: coronal single shot T2 weighted fast spin echo, axial T2 weighted sequences with and without fat saturation, axial dual phase gradient echo, pre and dynamic postcontrast 3-D T1 weighted gradient echo with fat saturation (axial and coronal), and axial diffusion. Heavily T2-weighted thick slab, 2D, and 3D MRCP sequences. 7.5 mL of Gadavist was administered. COMPARISON: Outside CT from May 17, 2024. FINDINGS: Gallbladder: Status postcholecystectomy Biliary tree: No stricture, choledocholithiasis, epithelial thickening or abnormal enhancement. Postcholecystectomy ectasia. Pancreas: Bulky edematous pancreas with diffuse peripancreatic stranding extending to the pancreaticoduodenal groove. No localized fluid collection. No solid mass lesion. No pancreatic divisum. Liver: Normal signal and morphology with no focal lesions. ?? Spleen: Normal size with no focal lesions. ?? Adrenal Glands: Redemonstration of right adrenal gland 16 mm nodule and left adrenal gland myelolipoma Kidneys: Bilateral renal cysts. Redemonstration 1.2 cm enhancing nodule at the upper pole of the right kidney (series 21, image 51). Fluid Survey: Mild ascites. Vasculature: Normal caliber aorta and IVC and patent ??major abdominal vasculature. Lymph Nodes: No adenopathy. Musculoskeletal: No acute or aggressive lesions. Other: Small bilateral pleural effusions, right greater than left with right basilar atelectasis. Duodenal diverticulum. Procedure Note Sung Schneider MD - 05/18/2024 CLINICAL INDICATION: Liver disease, chronic, tumor screening TECHNIQUE: MR imaging of the abdomen was performed with and without intravenouscontrast material using the following sequences: coronal single shot [id number] fast spin echo, axial T2 weighted sequences with and without fatsaturation, axial dual phase gradient echo, pre and dynamic postcontrast3-D T1 weighted gradient echo with fat saturation (axial and coronal), andaxial diffusion. Heavily T2-weighted thick slab, 2D, and 3D MRCPsequences. 7.5 mL of Gadavist was administered. COMPARISON: Outside CT from May 17, 2024. FINDINGS: Gallbladder: Status postcholecystectomy Biliary tree: No stricture, choledocholithiasis, epithelial thickening orabnormal enhancement. Postcholecystectomy ectasia. Pancreas: Bulky edematous pancreas with diffuse peripancreatic strandingextending to the pancreaticoduodenal groove. No localized fluidcollection. No solid mass lesion. No pancreatic divisum. Liver: Normal signal and morphology with no focal lesions. Spleen: Normal size with no focal lesions. Adrenal Glands: Redemonstration of right adrenal gland 16 mm nodule andleft adrenal gland myelolipoma Kidneys: Bilateral renal cysts. Redemonstration 1.2 cm enhancing nodule atthe upper pole of the right kidney (series 21, image 51). Fluid Survey: Mild ascites. Vasculature: Normal caliber aorta and IVC and patent major abdominalvasculature. Lymph Nodes: No adenopathy. Musculoskeletal: No acute or aggressive lesions. Other: Small bilateral pleural effusions, right greater than left withright basilar atelectasis. Duodenal diverticulum. IMPRESSION: 1.Acute edematous interstitial pancreatitis. No peripancreaticcollection. 2.No choledocholithiasis. 3.Small bilateral pleural effusions, right greater than left with rightbasilar atelectasis CRITICAL RESULT: No. COMMUNICATION: Per this written report. Drafted by Sung Schneider MD on 05/18/2024 2:03 PM Final report signed by uSng Schneider MD on 05/18/2024 2:26 PM Fer Tanner MECHANIC WELDER, DNP IMG MRI PROCEDURES Paula l Result * (ABNORMAL) Peripheral Blood Smear (05/18/2024 2:35 AM EDT) WBC Count 5.05 3.70 - 10.30 10*3/uL LAB HEMATOLOGY METHOD 05/18/2024 4:42 AM EDT [facility] RBC Count 3.34(L) 3.90 - 5.20 10*6/uL LAB HEMATOLOGY METHOD 05/18/2024 4:42 AM EDT [facility] HGB 12.0 11.2 - 15.7 g/dL LAB HEMATOLOGY METHOD 05/18/2024 4:42 AM EDT [facility] HCT 36.3 34.0 - 45.0 % LAB HEMATOLOGY METHOD 05/18/2024 4:42 AM EDT [facility] Platelet Count 94(L) 155 - 369 10*3/uL LAB HEMATOLOGY METHOD 05/18/2024 4:42 AM EDT [facility] MCV 109(H) 79 - 98 fL LAB HEMATOLOGY METHOD 05/18/2024 4:42 AM EDT [facility] MCH 35.9(H) 26.0 - 32.0 pg LAB HEMATOLOGY METHOD 05/18/2024 4:42 AM EDT [facility] MCHC 33.1 30.7 - 35.5 g/dL LAB HEMATOLOGY METHOD 05/18/2024 4:42 AM EDT [facility] RDW 16.8(H) 11.5 - 14.5 % LAB HEMATOLOGY METHOD 05/18/2024 4:42 AM EDT [facility] MPV 9.7 8.8 - 12.5 fL LAB HEMATOLOGY METHOD 05/18/2024 4:42 AM EDT [facility] nRBC 0.0 <=0.0 per 100 WBCs LAB HEMATOLOGY METHOD 05/18/2024 4:42 AM EDT [facility] Differential Type Automated LAB HEMATOLOGY METHOD 05/18/2024 4:42 AM EDT [facility] Neutrophils % 92 % LAB HEMATOLOGY METHOD 05/18/2024 4:42 AM EDT [facility] Lymphocytes % 4 % LAB HEMATOLOGY METHOD 05/18/2024 4:42 AM EDT [facility] Monocytes % 3 % LAB HEMATOLOGY METHOD 05/18/2024 4:42 AM EDT [facility] Eosinophils % 0 % LAB HEMATOLOGY METHOD 05/18/2024 4:42 AM EDT [facility] Basophils % 1 % LAB HEMATOLOGY METHOD 05/18/2024 4:42 AM EDT [facility] Immature Granulocytes % 0 % LAB HEMATOLOGY METHOD 05/18/2024 4:42 AM EDT [facility] Neutrophils Absolute 4.64 1.60 - 6.10 10*3/uL LAB HEMATOLOGY METHOD 05/18/2024 4:42 AM EDT [facility] Lymphocytes Absolute 0.18(L) 1.20 - 3.90 10*3/uL LAB HEMATOLOGY METHOD 05/18/2024 4:42 AM EDT [facility] Monocytes Absolute 0.17(L) 0.30 - 0.90 10*3/uL LAB HEMATOLOGY METHOD 05/18/2024 4:42 AM EDT [facility] Eosinophils Absolute 0.01 0.00 - 0.50 10*3/uL LAB HEMATOLOGY METHOD 05/18/2024 4:42 AM EDT [facility] Basophils Absolute 0.03 0.00 - 0.10 10*3/uL LAB HEMATOLOGY METHOD 05/18/2024 4:42 AM EDT [facility] Immature Granulocytes Absolute 0.02 0.00 - 0.06 10*3/uL LAB HEMATOLOGY METHOD 05/18/2024 4:42 AM EDT [facility] Blood Venous blood specimen / Unknown Venipuncture / Unknown 05/18/2024 2:35 AM EDT 05/18/2024 2:39 AM EDT Narrative [facility] - 05/18/2024 4:42 AM EDT Therapeutic decision making should be based on absolute values, rather than percentages. Fer Tanner APRN, DNP LAB PATHOLOGY ORDERABLE S Final Result Performing Organization Address City/[facility] Co de Phone Number [facility] [address] [place] [address] * (ABNORMAL) Troponin T, High Sensitivity, 2 Hour, Plasma (05/18/2024 2:35 AM EDT) Troponin T, High Sensitivity, 2 Hour 20(H) <14 ng/L 05/18/2024 3:06 AM EDT [facility] Troponin Delta 5 <10 ng/L 05/18/2024 3:06 AM EDT [facility] Troponin Delta Interpretation Not Significant 05/18/2024 3:06 AM EDT [facility] Comment:Not Significant. No acute change in troponin observed between the baseline and 2 hour samples. Blood Venous blood specimen / Unknown Venipuncture / Unknown 05/18/2024 2:35 AM EDT 05/18/2024 2:39 AM EDT Fer Tanner APRN, DNP LAB BLOOD ORDERABLES Fi nal Result Performing Organization Address City/[facility]/ZIP Co de Phone Number [facility] [address] [place] [address] * Peripheral blood smear, pathologist interpretation (05/18/2024 2:35 AM EDT) Clinical Diagnosis, Peripheral Smear Unexplained recent cytopenia LAB HEMATOLOGY METHOD 05/20/2024 2:44 PM EDT [facility] Interpretation , Peripheral Smear Mild thrombocytopen ia. 05/20/2024 2:44 PM EDT [facility] Pathologist Signature, Peripheral Smear 05/20/2024 2:44 PM EDT [facility] Comment:Reviewed by: Salina Valadez MD LAB CP ASR DISCLAIMER No 05/20/2024 2:44 PM EDT [facility] Blood Venous blood specimen / Unknown Venipuncture / Unknown 05/18/2024 2:35 AM EDT 05/18/2024 2:39 AM EDT Fer Tanner APRN, JOCELYN LAB PATHOLOGY ORDERABLE S Final Result [facility] [address] [place] [address] * (ABNORMAL) PT/INR (05/18/2024 2:35 AM EDT) Prothrombin Time 17.4(H) 12.0 - 14.3 sec LAB COAGULATION METHOD 05/18/2024 3:17 AM EDT [facility] INR 1.4(H) 0.9 - 1.1 LAB COAGULATION METHOD 05/18/2024 3:17 AM EDT [facility] Blood Venous blood specimen / Unknown Venipuncture / Unknown 05/18/2024 2:35 AM EDT 05/18/2024 2:39 AM EDT Narrative [facility] - 05/18/2024 3:17 AM EDT OPTIMAL INR RANGES FOR PATIENT ON ORAL ANTICOAGULANT THERAPY Prevention of venous thromboembolism ?INR 2.0 to 3.0 In patients with heart disease: Atrial fibrillation ?INR 2.0 to 3.0 Valvular heart disease ? INR 2.0 to 3.0 Tissue heart valves ?INR 2.0 to 3.0 Mechanical prosthetic valves ? INR 2.5 to 3.5 Prevention of recurrent KS ? INR 2.5 to 3.5 Fer Tanner MECHANIC WELDER, DNP LAB BLOOD ORDERABLES Fi nal Result Performing Organization Address [facility] de Phone Number [facility] [address] [place] [address] * Triglycerides (05/18/2024 2:35 AM EDT) Triglycerides, Plasma 53 <150 mg/dL 05/18/2024 9:45 AM EDT [facility] Comment: Triglyceride Reference Range (age >17 years): Desirable: ??<150 mg/dL Borderline high: ??150 to 199 mg/dL High: ??200 to 499 mg/dL Very high: ??>499 mg/dL Increased risk of pancreatitis: ??>1000 mg/dL Fasting greater than or equal to 12 hours? Unknown 05/18/2024 9:45 AM EDT [facility] Blood Venous blood specimen / Unknown Venipuncture / Unknown 05/18/2024 2:35 AM EDT 05/18/2024 2:39 AM EDT Result [facility] Rosa Chisholm MD LAB BLOOD ORDERABLES Final R esult Performing Organization Address [facility] Co de Phone Number [facility] [address] [place] [address] * Folate (05/18/2024 2:35 AM EDT) Folate, Serum 6.8 >4.8 ng/mL 05/18/2024 3:42 AM EDT [facility] Blood Venous blood specimen / Unknown Venipuncture / Unknown 05/18/2024 2:35 AM EDT 05/18/2024 2:39 AM EDT Fer Tanner MECHANIC WELDER, DNP LAB BLOOD ORDERABLES Fi nal Result [facility] [address] [place] [address] * (ABNORMAL) Comprehensive Urine Drug Screening, Qualitative Assay, >= 27 Drug Classes (:23 AM EDT) Acetaminophen Negative Negative 05/19/2024 7:46 PM EDT [facility] Alprazolam Negative Negative 05/19/2024 7:46 PM EDT [facility] Amantadine Negative Negative 05/19/2024 7:46 PM EDT [facility] Amitriptyline Negative Negative 05/19/2024 7:46 PM EDT [facility] Amphetamine Negative Negative 05/19/2024 7:46 PM EDT [facility] Atenolol Negative Negative 05/19/2024 7:46 PM EDT [facility] Benzoylecgonine Negative Negative 7:46 PM EDT [facility] Bisoprolol Negative Negative 05/19/2024 7:46 PM EDT [facility] Bupropion Negative Negative 05/19/2024 7:46 PM EDT [facility] Butalbital Negative Negative 05/19/2024 7:46 PM EDT [facility] Carbamazepine Negative Negative 05/19/2024 7:46 PM EDT [facility] Carisoprodol Negative Negative 05/19/2024 7:46 PM EDT [facility] Chlorpheniramine Negative Negative 05/19/20 7:46 PM EDT [facility] Citalopram Negative Negative 05/19/2024 7:46 PM EDT [facility] Clindamycin Negative Negative 05/19/2024 7:46 PM EDT [facility] Clonidine Negative Negative 05/19/2024 7:46 PM EDT [facility] Clopidogrel / Ticlopidine Negative Negative 05/19/2024 7:46 PM EDT [facility] Cocaethylene Negative Negative 05/19/2024 7:46 PM EDT [facility] Cocaine Negative Negative 05/19/2024 7:46 PM EDT [facility] Codeine Negative Negative 05/19/2024 7:46 PM EDT [facility] Cyclobenzaprine Negative Negative 7:46 PM EDT [facility] Desvenlafaxine Negative Negative 05/19/2024 7:46 PM EDT [facility] Dextromethorphan Negative Negative 05/19/20 7:46 PM EDT [facility] Diazepam Negative Negative 05/19/2024 7:46 PM EDT [facility] Diltiazem Negative Negative 05/19/2024 7:46 PM EDT [facility] Diphenhydramine Positive(A) Negative 05/19/20 7:46 PM EDT [facility] Doxepine Negative Negative 05/19/2024 7:46 PM EDT [facility] Doxylamine Negative Negative 05/19/2024 7:46 PM EDT [facility] EDDP-Methadone metabolite Negative Negative 05/19/2024 7:46 PM EDT [facility] Fentanyl Negative Negative 05/19/2024 7:46 PM EDT [facility] Fluconazole Negative Negative 05/19/2024 7:46 PM EDT [facility] Fluoxetine Negative Negative 05/19/2024 7:46 PM EDT [facility] Guaifenesin Negative Negative 05/19/2024 7:46 PM EDT [facility] Haloperidol Negative Negative 05/19/2024 7:46 PM EDT [facility] Heroin/6-TIANA Negative Negative 05/19/2024 7:46 PM EDT [facility] Hydrocodone Negative Negative 05/19/2024 7:46 PM EDT [facility] Hydroxyzine / Cetirizine metabolite Negative Negative 05/19/2024 7:46 PM EDT [facility] Ibuprofen Negative Negative 05/19/2024 7:46 PM EDT [facility] Imipramine Negative Negative 05/19/2024 7:46 PM EDT [facility] Ketamine Negative Negative 05/19/2024 7:46 PM EDT [facility] Labetolol Negative Negative 05/19/2024 7:46 PM EDT [facility] Lamotrigine Negative Negative 05/19/2024 7:46 PM EDT [facility] Levetiracetam Negative Negative 05/19/2024 7:46 PM EDT [facility] Lidocaine Negative Negative 05/19/2024 7:46 PM EDT [facility] MDA Negative Negative 05/19/2024 7:46 PM EDT [facility] MDMA Negative Negative 05/19/2024 7:46 PM EDT [facility] Memantine Negative Negative 05/19/2024 7:46 PM EDT [facility] Meperidine Negative Negative 05/19/2024 7:46 PM EDT [facility] Meprobamate Negative Negative 05/19/2024 7:46 PM EDT [facility] Metaxalone Negative Negative 05/19/2024 7:46 PM EDT [facility] Methamphetamine Negative Negative 7:46 PM EDT [facility] Methocarbamol Negative Negative 05/19/2024 7:46 PM EDT [facility] Methylecgonine Negative Negative 05/19/2024 7:46 PM EDT [facility] Metoclopramide Negative Negative 05/19/2024 7:46 PM EDT [facility] Metoprolol Negative Negative 05/19/2024 7:46 PM EDT [facility] Metronidazole Negative Negative 05/19/2024 7:46 PM EDT [facility] Midazolam Negative Negative 05/19/2024 7:46 PM EDT [facility] Midazolam Metabolite Negative Negative 05/19/2024 7:46 PM EDT [facility] Mirtazapine Negative Negative 05/19/2024 7:46 PM EDT [facility] Misc Test Result Positive(A) Negative 024 7:46 PM EDT [facility] Comment:Gabapentin detected Naproxen Negative Negative 05/19/2024 7:46 PM EDT [facility] Nefazodone Negative Negative 05/19/2024 7:46 PM EDT [facility] Norfentanyl Negative Negative 05/19/2024 7:46 PM EDT [facility] Nortriptyline Negative Negative 05/19/2024 7:46 PM EDT [facility] Ordanstron Negative Negative 05/19/2024 7:46 PM EDT [facility] Oxcarbazepine Negative Negative 05/19/2024 7:46 PM EDT [facility] Oxycodone Negative Negative 05/19/2024 7:46 PM EDT [facility] Paroxethine Negative Negative 05/19/2024 7:46 PM EDT [facility] Phenobarbital Negative Negative 05/19/2024 7:46 PM EDT [facility] Phentermine Negative Negative 05/19/2024 7:46 PM EDT [facility] Phenytoin Negative Negative 05/19/2024 7:46 PM EDT [facility] Primidone Negative Negative 05/19/2024 7:46 PM EDT [facility] Promethazine Negative Negative 05/19/2024 7:46 PM EDT [facility] Propofol Negative Negative 05/19/2024 7:46 PM EDT [facility] Propranolol Negative Negative 05/19/2024 7:46 PM EDT [facility] Quetiapine Negative Negative 05/19/2024 7:46 PM EDT [facility] Quinine Negative Negative 05/19/2024 7:46 PM EDT [facility] Rantidine Negative Negative 05/19/2024 7:46 PM EDT [facility] Sertraline Negative Negative 05/19/2024 7:46 PM EDT [facility] Spironolactone Negative Negative 05/19/2024 7:46 PM EDT [facility] Tizanidine Negative Negative 05/19/2024 7:46 PM EDT [facility] Topiramate Negative Negative 05/19/2024 7:46 PM EDT [facility] Tramadol Negative Negative 05/19/2024 7:46 PM EDT [facility] Trazadone/ Trazadone metabolite Negative Negative 05/19/2024 7:46 PM EDT [facility] Trimethoprim Negative Negative 05/19/2024 7:46 PM EDT [facility] Valproic Acid Negative Negative 05/19/2024 7:46 PM EDT [facility] Venlafaxine Negative Negative 05/19/2024 7:46 PM EDT [facility] Verapamil Negative Negative 05/19/2024 7:46 PM EDT [facility] Zolpidem Negative Negative 05/19/2024 7:46 PM EDT [facility] Urine Urine specimen obtained by clean catch procedure / Unknown Non-blood Collection / Unknown 05/18/2024 1:23 AM EDT 05/18/2024 1:30 AM EDT Narrative [facility] - 05/19/2024 7:46 PM EDT The UDS Assay Screens for at least 27 classes of drugs. The Classes Includes: Amphetamines, Analgesics, Anesthetic, Antiepileptic, Antihistamine, Antivirals, Antidepressants, Antifungal, Antibiotic, Antipsychotics, Antiemetic, Antimalarial, Appetite Suppressant, Barbiturates, Benzodiazepines, Cocaine, Cognitive Enhancing Meds, Cough Suppressant, Dopamine Antagonist, Fentanyl, Hypertensive, Methadones, Muscle Relaxers, Opiates, Psychedelic, Sedative. Drugs in urine are analyzed by gas chromatography-mass spectrometry. This test was developed and its performance characteristics determined by [facility].It has not been cleared or approved by the FDA.The laboratory is regulated under CLIA as qualified to perform high-complexity testing. This test is used for clinical purposes. Testing is performed at the [facility], Special Chemistry Laboratory. Fer Tanner APRN, DNP LAB URINE ORDERABLES Fi nal Result Performing Organization Address City/State/[facility] Co de Phone Number [facility] [address] [place] [address] * US Abdomen Focused Region GB, Bile Ducts, Liver (05/17/2024 11:01 PM EDT) Anatomical Region Laterality Modality Abdomen Ultrasound Impressions 05/17/2024 11:39 PM EDT Status post cholecystectomy. No stones in the visible portions of the common bile duct. CRITICAL RESULT: No. COMMUNICATION: Per this written report. Drafted by Linh Parham MD on 05/17/2024 11:38 PM Final report signed by Linh Parham MD on 05/17/2024 11:39 PM Narrative 05/17/2024 11:39 PM EDT CLINICAL INDICATION: + muprhys, concern for choledocholithiasis TECHNIQUE: Focused static and cine grayscale ultrasound images of portions of the abdomen were obtained COMPARISON: None. FINDINGS: The common bile left measures 8 mm in diameter. No stone in the visible portions of the common bile left. The gallbladder is absent. Procedure Note Linh Parham MD - 05/17/2024 CLINICAL INDICATION: + muprhys, concern for choledocholithiasis TECHNIQUE: Focused static and cine grayscale ultrasound images of portions of theabdomen were obtained COMPARISON: None. FINDINGS: The common bile left measures 8 mm in diameter. No stone in the visibleportions of the common bile left. The gallbladder is absent. IMPRESSION: Status post cholecystectomy. No stones in the visible portions of thecommon bile duct. CRITICAL RESULT: No. COMMUNICATION: Per this written report. Drafted by Linh Parham MD on 05/17/2024 11:38 PM Final report signed by Linh Parham MD on 05/17/2024 11:39 PM Fer Tanner APRN, DNP IMG US PROCEDURES Final Result * ECG Adult (05/17/2024 9:45 PM EDT) EKG DIAGNOSIS CLASS Abnormal MUSE ECG Ventricular Rate 97 BPM MUSE ECG Atrial Rate 97 BPM MUSE ECG FL Interval 152 ms MUSE ECG QRSD Interval 64 ms MUSE ECG QT Interval 344 ms MUSE ECG QTC Interval 436 ms MUSE ECG P [place] 50 degrees MUSE ECG R [place] 2 degrees MUSE ECG T Wave [place] 48 degrees MUSE ECG Diagnosis Normal sinus rhythm MUSE ECG Diagnosis Cannot rule out Inferior infarct , age undetermined MUSE ECG Diagnosis Possible Anterolateral infarct , age undetermined MUSE ECG Diagnosis Abnormal ECG MUSE ECG Diagnosis MUSE ECG Diagnosis Confirmed by Diego Flower ([id number]) on 05/18/2024 11:18:03 AM MUSE ECG 05/17/2024 9:45 PM EDT 05/18/2024 11:18 AM EDT Fer Tanner APRN, DNP ECG ORDERABLES Final R esult MUSE ECG * SARS CoV-2/COVID-19 by PCR - Rapid (05/17/2024 9:27 PM EDT) [facility] SARS CoV-2/COVID-1 9 RNA PCR Result Not Detected Not Detected 05/17/2024 10:56 PM EDT [facility] Swab Nasopharyngeal structure / Unknown Non-blood Collection / Unknown 05/17/2024 9:27 PM EDT 05/17/2024 10:07 PM EDT Narrative [facility] - 05/17/2024 10:56 PM EDT This test is FDA approved for use with nasopharyngeal specimens in Viral Transport Media (VTM). This test is used for clinical purposes. It should not be regarded as investigational or for research. This laboratory is certified under the Clinical Laboratory improvement Amendments of 1988 (CLIA-88 as qualified to perform high complexity clinical laboratory testing. This test was performed on the Xpert Xpress SARS CoV-2 Plus assay test, a PCR- based method. Negative results should be considered presumptive and do not preclude current or future infection obtained through community transmission or other exposures. Negative results must be considered in the context of an individual's recent exposures, history, presence of clinical signs and symptoms consistent with COVID-19. Fer Tanner APRN, JOC[facility]N LAB MICROBIOLOGY - [facility] ORDERABLES Final Result [facility] [address] [place] [address] * Nasopharyngeal Respiratory Panel (05/17/2024 9:27 PM EDT) [facility] Nasopharyngeal Respiratory PCR Interpretation Not Detected for all analytes Not Detected for all analytes 05/17/2024 11:59 PM EDT [facility] Swab Nasopharyngeal structure / Unknown Non-blood Collection / Unknown 05/17/2024 9:27 PM EDT 05/17/2024 10:07 PM EDT Narrative [facility] - 05/17/2024 11:59 PM EDT This assay can detect Adenovirus, Coronavirus, Human Metapneumovirus, Human Rhino/Enterovirus, Influenza A, Influenza A H1, Influenza A H1 2009, Influenza A H3, Influenza B, Parainfluenza Virus 1, Parainfluenza Virus 2, Parainfluenza Virus 3, Parainfluenza Virus 4, Respiratory Syncytial Virus A, Respiratory Syncytial Virus B, Chlamydia pneumoniae, and Mycoplasma pneumoniae. Note: This assay does NOT detect SARS/CoV, novel Coronavirus 2019-nCoV, Bordetella pertussis or Bordetella parapertussis. Nasopharyngeal Respiratory PCR Panel is performed using the [employer] instrument. ??This test is FDA approved for use with Nasopharyngeal swabs only. This test is used for clinical purposes. It should not be regarded as investigational or for research. The [facility] Clinical Microbiology Laboratory is certified under the Clinical Laboratory Improvement Amendments of 1988 (CLIA-88) as qualified to perform high complexity clinical laboratory testing. Fer Tanner APRN, JOCELYN LAB MICROBIOLOGY - [facility] ORDERABLES Final Result Performing Organization Address City/[facility]/ZIP Co de Phone Number [facility] [address] [place] [address] * (ABNORMAL) Troponin T, High Sensitivity, 0 Hour Plasma, Reflex to 2 Hour (05/17/2024 9:24 PM EDT) Pathologist [facility] Troponin T, High Sensitivity, 0 Hour 25(H) <14 ng/L 05/17/2024 10:08 PM EDT [facility] Blood Venous blood specimen / Unknown Venipuncture / Unknown 05/17/2024 9:24 PM EDT 05/17/2024 9:37 PM EDT Fer Tanner APRN, JOCELYN LAB BLOOD ORDERABLES Fi nal Result [facility] [address] [place] [address] * Rojelio Coello Virus (EBV) Quantitative PCR (05/17/2024 9:24 PM EDT) Rojelio Coello Virus, Blood, Quant DNA Interpretation Not Detected Not Detected 05/18/2024 10:28 AM EDT [facility] Blood Venous blood specimen / Unknown Venipuncture / Unknown 05/17/2024 9:24 PM EDT 05/17/2024 9:38 PM EDT Narrative [facility] - 05/18/2024 10:28 AM EDT EBV Linear Range: ??2.7 to 6.7 log10 IU/mL (500 to 5 x 10e6 IU/mL) The limit of Detection (LOD) of this qPCR assay is 313 IU/mL [2.5 log10 IU/mL] and the Limit of Quantitation (LOQ) is 500 IU/mL [2.7 log10 IU/mL]. Results should be used in conjunction with clinical findings and should not be used as the sole basis for a diagnosis or treatment decision. This PCR assay was developed and it's performance characteristics determined by [facility] as appropriate for clinical purposes. This assay has not been cleared or approved by the FDA, but is performed in a CLIA regulated laboratory that is qualified to perform high-complexity testing. EBV Linear Range: ??2.7 to 6.7 log10 IU/mL (500 to 5 x 10e6 IU/mL) The limit of Detection (LOD) of this qPCR assay is 313 IU/mL [2.5 log10 IU/mL] and the Limit of Quantitation (LOQ) is 500 IU/mL [2.7 log10 IU/mL]. Results should be used in conjunction with clinical findings and should not be used as the sole basis for a diagnosis or treatment decision. This PCR assay was developed and it's performance characteristics determined by [facility] as appropriate for clinical purposes. This assay has not been cleared or approved by the FDA, but is performed in a CLIA regulated laboratory that is qualified to perform high-complexity testing. Fer Tanner MECHANIC WELDER, DNP LAB BLOOD ORDERABLES Fi nal Result [facility] [address] [place] [address] * Cytomegalovirus (CMV) Quantitative PCR (05/17/2024 9:24 PM EDT) Cytomegalovirus (CMV) Quantitative Interpretation Not Detected Not Detected 05/18/2024 2:29 PM EDT [facility] Blood Venous blood specimen / Unknown Venipuncture / Unknown 05/17/2024 9:24 PM EDT 05/17/2024 9:38 PM EDT Narrative [facility] - 05/18/2024 2:29 PM EDT The Lucia M2000 CMV test is a Real Time in vitro nucleic acid amplification test for the quantitation of Cytomegalovirus (CMV) DNA in human plasma in CMV infected individuals. It is intended to quantify CMV in patients who are infected with this virus. The dynamic range for this test is log10 = 1.70 to 8.19 and/or 50 to 156,000,000 IU/mL. The limit of detection (LOD) for this assay is 31.20 IU/mL and the limit of quantitation (LOQ) is 50 IU/mL. This assay is FDA approved for clinical use. Fer Tanner APRN, JOCELYN LAB BLOOD ORDERABLES Fi nal Result Performing Organization Address [facility] Co de Phone Number [facility] [address] [place] [address] * HIV 1 & 2 Antibody/Antigen Screen (05/17/2024 9:24 PM EDT) [facility] HIV 1 & 2 Antibody/Antigen Screen Non Reactive Non Reactive 05/17/2024 10:20 PM EDT [facility] Comment:Screening for HIV 1 & 2 antibodies, and P24 antigen is NONREACTIVE. No confirmatory testing is required. Blood Venous blood specimen / Unknown Venipuncture / Unknown 05/17/2024 9:24 PM EDT 05/17/2024 9:38 PM EDT Fer Tanner APRN, JOCELYN LAB BLOOD ORDERABLES Fi nal Result Performing Organization Address City/[facility]/ZIP Co de Phone Number [facility] [address] [place] [address] * Hepatitis panel, acute (05/17/2024 9:24 PM EDT) [facility] Hepatitis B Surf Antigen Negative Negative 05/17/2024 11:21 PM EDT [facility] Hepatitis C Antibody Negative Negative 05/17/2024 11:21 PM EDT [facility] Hepatitis A Antibody IgM Negative Negative 05/17/2024 11:21 PM EDT [facility] Hepatitis B Core Antibody IgM Negative Negative 05/17/2024 11:21 PM EDT [facility] Blood Venous blood specimen / Unknown Venipuncture / Unknown 05/17/2024 9:24 PM EDT 05/17/2024 9:38 PM EDT Fer Tanner APRN, DNP LAB BLOOD ORDERABLES Fi nal Result Performing Organization Address [facility] [place] [address] * Blood Culture (Aerobic/Anaerobet Set) (05/17/2024 9:24 PM EDT) Culture No growth at day 5 CATHERINE 05/22/2024 11:01 PM EDT [facility] Blood Structure of part of right upper limb / Unknown Venipuncture / Unknown 05/17/2024 9:24 PM EDT 05/17/2024 10:13 PM EDT Fer Tanner APRN, JOCELYN LAB MICROBIOLOGY - GENE RAL ORDERABLES Final Result Performing Organization Address [facility] [place] [address] * (ABNORMAL) C-reactive protein (05/17/2024 9:24 PM EDT) CRP, Plasma 105.6(H) <=8.0 mg/L 05/17/2024 10:08 PM EDT [facility] Blood Venous blood specimen / Unknown Venipuncture / Unknown 05/17/2024 9:24 PM EDT 05/17/2024 9:38 PM EDT Narrative [facility] - 05/17/2024 10:08 PM EDT This CRP test is appropriate for assessment of infection, systemic inflammation and/or tissue injury. To assess cardiovascular disease risk order high sensitivity CRP (CRPH). Fer Tanner APRN, DNP LAB BLOOD ORDERABLES Fi nal Result Performing Organization Address City/[facility] Co de Phone Number [facility] [address] [place] [address] * (ABNORMAL) Lactate dehydrogenase (05/17/2024 9:24 PM EDT) LDH, Plasma 536(H) 116 - 250 U/L 05/17/2024 10:08 PM EDT [facility] Comment:Hemolyzed, result ma y be falsely increased. Blood Venous blood specimen / Unknown Venipuncture / Unknown 05/17/2024 9:24 PM EDT 05/17/2024 9:38 PM EDT Fer Tanner APRN, DNP LAB BLOOD ORDERABLES Fi nal Result Performing Organization Address [facility] de Phone Number [facility] [address] [place] [address] * Hemoglobin A1c (05/17/2024 9:24 PM EDT) Hemoglobin A1c 5.3 <5.7 % 05/17/2024 10:51 PM EDT [facility] Blood Venous blood specimen / Unknown Venipuncture / Unknown 05/17/2024 9:24 PM EDT 05/17/2024 9:42 PM EDT Narrative [facility] - 05/17/2024 10:51 PM EDT HA1C Interpretive Data: Diagnosis of Diabetes: Diabetic > or = 6.5% Pre-diabetic 5.7 to 6.4% Non-diabetic < or = 5.6% Glycemic Targets for Type I and Type II Diabetics: Non- Adults <7.0% Adults <6.0% Children and Adolescents <7.5% Source: ??[place] [employer]. Standards of medical care in diabetes,2017. Diabetes Care.2017:40 (suppl 1):S1-S135. HbA1c assay performed by an ion-exchange chromatography method that is certified traceable to the DCCT. Fer Tanner APRN, DNP LAB BLOOD ORDERABLES Fi nal Result Performing Organization Address [facility] Co de Phone Number [facility] [address] [place] [address] * (ABNORMAL) GGT (05/17/2024 9:24 PM EDT) GGT, Plasma 451(H) 5 - 36 U/L 05/17/2024 10:08 PM EDT [facility] Blood Venous blood specimen / Unknown Venipuncture / Unknown 05/17/2024 9:24 PM EDT 05/17/2024 9:38 PM EDT [facility] W Ciro MECHANIC WELDER, DNP LAB BLOOD ORDERABLES Fi nal Result [facility] [address] [place] [address] * (ABNORMAL) Ferritin (05/17/2024 9:24 PM EDT) Pathologist [facility] Ferritin, Serum 980(H) 13 - 150 ng/mL 05/17/2024 10:20 PM EDT [facility] Blood Venous blood specimen / Unknown Venipuncture / Unknown 05/17/2024 9:24 PM EDT 05/17/2024 9:38 PM EDT Fer Tanner APRN, DNP LAB BLOOD [place] [address] * Vitamin B12 (05/17/2024 9:24 PM EDT) Pathologist [facility] Vitamin B12, Serum 659 210 - 1,033 pg/mL 05/18/2024 1:02 AM EDT [facility] Blood Venous blood specimen / Unknown Venipuncture / Unknown 05/17/2024 9:24 PM EDT 05/17/2024 9:38 PM EDT Fer Tanner MECHANIC WELDER, DNP LAB BLOOD ORDERABLES Fi nal Result [facility] [address] [place] [address] * (ABNORMAL) Bilirubin, direct (05/17/2024 9:24 PM EDT) Conjugated Bilirubin, Plasma 2.7(H) 0.0 - 0.3 mg/dL 05/17/2024 10:25 PM EDT [facility] Comment:Hemolyzed, result ma y be falsely decreased. Blood Venous blood specimen / Unknown Venipuncture / Unknown 05/17/2024 9:24 PM EDT 05/17/2024 9:38 PM EDT us Fer W Ciro MECHANIC WELDER, DNP LAB BLOOD ORDERABLES Fi nal Result [facility] [address] [place] [address] * Lipid panel (05/17/2024 9:24 PM EDT) Pathologist [facility] Cholesterol, Plasma 137 <200 mg/dL 05/17/2024 10:08 PM EDT [facility] Comment: Cholesterol Reference Range (age >17 years): Desirable ? <200 mg/dL Borderline ? 200 to 239 mg/dL Undesirable ? >239 mg/dL HDL 64 >=50 mg/dL 05/17/2024 10:08 PM EDT [facility] Comment: HDL Cholesterol Reference Ranges (age >17 years): Female, acceptable ?? > or = 50 mg/dL Male, acceptable ? > or = 40 mg/dL Triglycerides, Plasma 69 <150 mg/dL 05/17/2024 10:08 PM EDT [facility] Comment: Triglyceride Reference Range (age >17 years): Desirable: ??<150 mg/dL Borderline high: ??150 to 199 mg/dL High: ??200 to 499 mg/dL Very high: ??>499 mg/dL Increased risk of pancreatitis: ??>1000 mg/dL Cholesterol/HDL Ratio 2 05/17/2024 10:08 PM EDT [facility] LDL, Calculated 59 <100 mg/dL 10:08 PM EDT [facility] Comment: LDL Cholesterol Reference Range (age >17 years): Optimal: ??<100 mg/dL Near or above optimal: 100 - 129 mg/dL Borderline high: 130 - 159 mg/dL High: 160 - 189 mg/dL Very high: >189 mg/dL LDL Cholesterol Reference Range (age <18 years): Desirable: ? <110 mg/dL Borderline: ?110 - 129 mg/dL Undesirable: ?? >130 mg/dL LDL Cholesterol is calculated using the Carroll/NIH equation. Fasting greater than or equal to 12 hours? No 05/17/2024 10:08 PM EDT [facility] Blood Venous blood specimen / Unknown Venipuncture / Unknown 05/17/2024 9:24 PM EDT 05/17/2024 9:37 PM EDT us Fer Tanner MECHANIC WELDER, DNP LAB BLOOD ORDERABLES Fi nal Result Performing Organization Address City/State/[facility] Co de Phone Number [facility] [address] [place] [address] * XR Chest 1 View (05/17/2024 9:20 PM EDT) Anatomical Region Laterality Modality Chest Digital Radiogra phy Impressions 05/17/2024 9:22 PM EDT Bibasilar opacities representing atelectasis or airspace disease CRITICAL RESULT: ?? No COMMUNICATION: Per this written report. Drafted by Linh Parham MD on 05/17/2024 9:21 PM Final report signed by Linh Parham MD on 05/17/2024 9:22 PM Narrative 05/17/2024 9:22 PM EDT CLINICAL INDICATION: new O2 requirement TECHNIQUE: XR CHEST 1 VIEW COMPARISON: None. FINDINGS: The cardiomediastinal silhouette is unremarkable. Right greater than left basilar opacities. Possible small effusions. Chest port tip overlies cavoatrial junction Procedure Note Linh Parham MD - 05/17/2024 CLINICAL INDICATION: new O2 requirement TECHNIQUE: XR CHEST 1 VIEW COMPARISON: None. FINDINGS: The cardiomediastinal silhouette is unremarkable. Right greater than leftbasilar opacities. Possible small effusions. Chest port tip overliescavoatrial junction IMPRESSION: Bibasilar opacities representing atelectasis or airspace disease CRITICAL RESULT: No COMMUNICATION: Per this written report. Drafted by Linh Parham MD on 05/17/2024 9:21 PM Final report signed by Linh Parham MD on 05/17/2024 9:22 PM Fer Tanner APRN, DNP IMG XR PROCEDURES Final Result * CT OUTSIDE IMAGES (05/17/2024 1:30 PM EDT) Only the most recent of2 resultswithin the time period is included. Anatomical Region Laterality Modality Computed Tomogra phy 05/17/2024 1:30 PM EDT us Ray Gomez MD IMG CT PROCEDURES Final Resul t * XR OUTSIDE IMAGES (05/17/2024 12:51 PM EDT) Anatomical Region Laterality Modality Radiographic Leana ging 05/17/2024 12:5 1 PM EDT us Ray Gomez MD IMG XR PROCEDURES Final Resul t * CT Abdomen Pelvis w IV Contrast (04/22/2024 3:31 PM EDT) Anatomical Region Laterality Modality Abdomen, Pelvis Computed Tomogra phy Impressions 04/22/2024 4:10 PM EDT Chest: No evidence of disease progression. Abdomen/Pelvis: Similar appearance of the vaginal cuff lesion and posterior bladder wall thickening. Slight interval enlargement of right external iliac chain lymph node. Remaining retroperitoneal and pelvic adenopathy have decreased in size. CRITICAL RESULT: ?? No. COMMUNICATION: Per this written report. Drafted by Bria Ballesteros MD on 04/22/2024 3:45 PM Final report signed by Bria Ballesteros MD on 04/22/2024 4:10 PM Narrative 04/22/2024 4:10 PM EDT CLINICAL INDICATION: Ovarian cancer, staging TECHNIQUE: Multiple axial CT images were obtained from thoracic inlet through pubic symphysis following administration of IV contrast, Omnipaque 300, 100 mL. Reformatted images of the abdomen and pelvis in the coronal and sagittal planes were generated from the axial data set to facilitate diagnostic accuracy. Total DLP (Dose-Length Product): 427.18 mGy.cm. Please note: The reported value represents the total of one or more individual components during the CT acquisition on this date and at this time, and as such, the same value may appear in more than one CT report depending on the interpreting/reporting physicians. COMPARISON: January 29, 2024. FINDINGS: Chest: Lymph Nodes and Mediastinum: No lymphadenopathy by CT size criteria. No mediastinal mass lesions. No suspicious thyroid findings. Cardiovascular: The heart is normal in caliber. Thoracic great vessels are patent. Right internal jugular port with tip near the superior cavoatrial junction. Lungs and Pleura: Right upper lobe 5 mm nodule remains unchanged (series 2 image 91). No new suspicious pulmonary nodules. Unchanged bilateral lower lung linear scarring. No pleural effusions or suspicious thickening. Musculoskeletal and Body Wall: No clearly aggressive bone lesions. Unchanged left breast soft tissue with adjacent surgical clips. Abdomen/Pelvis: Solid Abdominal Organs: Homogenous hepatic enhancement without suspicious liver lesion. Tiny low-attenuation focus adjacent to the falciform ligament remains unchanged (series 3 image 45). Prior cholecystectomy with intrahepatic biliary ductal ectasia. Unremarkable spleen, pancreas. Redemonstration of right adrenal gland 16 mm nodule and left adrenal gland myelolipoma. Symmetric renal enhancement. Peripherally enhancing right upper pole renal lesion remains unchanged measuring 12 mm. 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 No hydronephrosis. GI Tract/Mesentery/Peritoneum: Unremarkable stomach. Duodenal diverticula. The large and small bowel are normal in caliber. No acute inflammation. No suspicious mesenteric/peritoneal findings. Pelvic Viscera: Loss of intervening fat plane between the anterior vaginal wall and posterior bladder with associated bladder wall thickening. Redemonstration of vaginal cuff lesion measuring 3.6 x 2 cm, unchanged (series 3 image 261). Changes of prior hysterectomy. Lymph Nodes/Vasculature: Aortocaval lymph node measures 6 mm short axis, previously 8 mm (series 3 image 131). Right common external iliac 16 mm short axis lymph node, previously 14 mm (series 3 image 244). Left common iliac 9 mm short axis lymph node, previously 12 mm (series 3 image 188). Left external iliac 8 mm short axis lymph node, previously 13 mm (series 3 image 255). The aortoiliac vasculature is patent and normal in caliber. Free Fluid: No free fluid in the abdomen or pelvis. Musculoskeletal and Body Wall: Ventral abdominal wall hernia containing segment of the sigmoid colon and small bowel without findings to suggest obstruction. No clearly aggressive osseous lesion. Enlarged right inguinal lymph nodes measuring up to 12 mm short axis remain unchanged. Procedure Note Bria Ballesteros MD - 04/22/2024 CLINICAL INDICATION: Ovarian cancer, staging TECHNIQUE: Multiple axial CT images were obtained from thoracic inlet through pubicsymphysis following administration of IV contrast, Omnipaque 300, 100 mL.Reformatted images of the abdomen and pelvis in the coronal and sagittalplanes were generated from the axial data set to facilitate diagnosticaccuracy. Total DLP (Dose-Length Product): 427.18 mGy.cm. Please note: The reportedvalue represents the total of one or more individual components during theCT acquisition on this date and at this time, and as such, the same valuemay appear in more than one CT report depending on theinterpreting/reporting physicians. COMPARISON: January 29, 2024. FINDINGS: Chest: Lymph Nodes and Mediastinum: No lymphadenopathy by CT size criteria. Nomediastinal mass lesions. No suspicious thyroid findings. Cardiovascular: The heart is normal in caliber. Thoracic great vessels arepatent. Right internal jugular port with tip near the superior cavoatrialjunction. Lungs and Pleura: Right upper lobe 5 mm nodule remains unchanged (series 2image 91). No new suspicious pulmonary nodules. Unchanged bilateral lowerlung linear scarring. No pleural effusions or suspicious thickening. Musculoskeletal and Body Wall: No clearly aggressive bone lesions.Unchanged left breast soft tissue with adjacent surgical clips. Abdomen/Pelvis: Solid Abdominal Organs: Homogenous hepatic enhancement without suspiciousliver lesion. Tiny low-attenuation focus adjacent to the falciformligament remains unchanged (series 3 image 45). Prior cholecystectomy withintrahepatic biliary ductal ectasia. Unremarkable spleen, pancreas.Redemonstration of right adrenal gland 16 mm nodule and left adrenal glandmyelolipoma. Symmetric renal enhancement. Peripherally enhancing rightupper pole renal lesion remains unchanged measuring 12 mm. Adjacent fatdensity lesion likely 14 mm angiomyolipoma (series 3 images 78 and 80). Nohydronephrosis. GI Tract/Mesentery/Peritoneum: Unremarkable stomach. Duodenal diverticula.The large and small bowel are normal in caliber. No acute inflammation. Nosuspicious mesenteric/peritoneal findings. Pelvic Viscera: Loss of intervening fat plane between the anterior vaginalwall and posterior bladder with associated bladder wall thickening.Redemonstration of vaginal cuff lesion measuring 3.6 x 2 cm, unchanged(series 3 image 261). Changes of prior hysterectomy. Lymph Nodes/Vasculature: Aortocaval lymph node measures 6 mm short axis,previously 8 mm (series 3 image 131). Right common external iliac 16 mmshort axis lymph node, previously 14 mm (series 3 image 244). Left commoniliac 9 mm short axis lymph node, previously 12 mm (series 3 image 188).Left external iliac 8 mm short axis lymph node, previously 13 mm (series 3image 255). The aortoiliac vasculature is patent and normal in caliber. Free Fluid: No free fluid in the abdomen or pelvis. Musculoskeletal and Body Wall: Ventral abdominal wall hernia containingsegment of the sigmoid colon and small bowel without findings to suggestobstruction. No clearly aggressive osseous lesion. Enlarged right inguinallymph nodes measuring up to 12 mm short axis remain unchanged. IMPRESSION: Chest: No evidence of disease progression. Abdomen/Pelvis: Similar appearance of the vaginal cuff lesion andposterior bladder wall thickening. Slight interval enlargement of right external iliac chain lymph node.Remaining retroperitoneal and pelvic adenopathy have decreased in size. CRITICAL RESULT: No. COMMUNICATION: Per this written report. Drafted by Bria Ballesteros MD on 04/22/2024 3:45 PM Final report signed by Bria Ballesteros MD on 04/22/2024 4:10 PM us Penleope Dodson MD IMG CT PROCEDURES Fin al Result * CT Chest w IV Contrast (04/22/2024 3:31 PM EDT) Anatomical Region Laterality Modality Chest Computed Tomogra phy Impressions 04/22/2024 4:10 PM EDT Chest: No evidence of disease progression. Abdomen/Pelvis: Similar appearance of the vaginal cuff lesion and posterior bladder wall thickening. Slight interval enlargement of right external iliac chain lymph node. Remaining retroperitoneal and pelvic adenopathy have decreased in size. CRITICAL RESULT: ?? No. COMMUNICATION: Per this written report. Drafted by Bria Ballesteros MD on 04/22/2024 3:45 PM Final report signed by Bria Ballesteros MD on 04/22/2024 4:10 PM Narrative 04/22/2024 4:10 PM EDT CLINICAL INDICATION: Ovarian cancer, staging TECHNIQUE: Multiple axial CT images were obtained from thoracic inlet through pubic symphysis following administration of IV contrast, Omnipaque 300, 100 mL. Reformatted images of the abdomen and pelvis in the coronal and sagittal planes were generated from the axial data set to facilitate diagnostic accuracy. Total DLP (Dose-Length Product): 427.18 mGy.cm. Please note: The reported value represents the total of one or more individual components during the CT acquisition on this date and at this time, and as such, the same value may appear in more than one CT report depending on the interpreting/reporting physicians. COMPARISON: January 29, 2024. FINDINGS: Chest: Lymph Nodes and Mediastinum: No lymphadenopathy by CT size criteria. No mediastinal mass lesions. No suspicious thyroid findings. Cardiovascular: The heart is normal in caliber. Thoracic great vessels are patent. Right internal jugular port with tip near the superior cavoatrial junction. Lungs and Pleura: Right upper lobe 5 mm nodule remains unchanged (series 2 image 91). No new suspicious pulmonary nodules. Unchanged bilateral lower lung linear scarring. No pleural effusions or suspicious thickening. Musculoskeletal and Body Wall: No clearly aggressive bone lesions. Unchanged left breast soft tissue with adjacent surgical clips. Abdomen/Pelvis: Solid Abdominal Organs: Homogenous hepatic enhancement without suspicious liver lesion. Tiny low-attenuation focus adjacent to the falciform ligament remains unchanged (series 3 image 45). Prior cholecystectomy with intrahepatic biliary ductal ectasia. Unremarkable spleen, pancreas. Redemonstration of right adrenal gland 16 mm nodule and left adrenal gland myelolipoma. Symmetric renal enhancement. Peripherally enhancing right upper pole renal lesion remains unchanged measuring 12 mm. 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 No hydronephrosis. GI Tract/Mesentery/Peritoneum: Unremarkable stomach. Duodenal diverticula. The large and small bowel are normal in caliber. No acute inflammation. No suspicious mesenteric/peritoneal findings. Pelvic Viscera: Loss of intervening fat plane between the anterior vaginal wall and posterior bladder with associated bladder wall thickening. Redemonstration of vaginal cuff lesion measuring 3.6 x 2 cm, unchanged (series 3 image 261). Changes of prior hysterectomy. Lymph Nodes/Vasculature: Aortocaval lymph node measures 6 mm short axis, previously 8 mm (series 3 image 131). Right common external iliac 16 mm short axis lymph node, previously 14 mm (series 3 image 244). Left common iliac 9 mm short axis lymph node, previously 12 mm (series 3 image 188). Left external iliac 8 mm short axis lymph node, previously 13 mm (series 3 image 255). The aortoiliac vasculature is patent and normal in caliber. Free Fluid: No free fluid in the abdomen or pelvis. Musculoskeletal and Body Wall: Ventral abdominal wall hernia containing segment of the sigmoid colon and small bowel without findings to suggest obstruction. No clearly aggressive osseous lesion. Enlarged right inguinal lymph nodes measuring up to 12 mm short axis remain unchanged. Procedure Note Bria Ballesteros MD - 04/22/2024 CLINICAL INDICATION: Ovarian cancer, staging TECHNIQUE: Multiple axial CT images were obtained from thoracic inlet through pubicsymphysis following administration of IV contrast, Omnipaque 300, 100 mL.Reformatted images of the abdomen and pelvis in the coronal and sagittalplanes were generated from the axial data set to facilitate diagnosticaccuracy. Total DLP (Dose-Length Product): 427.18 mGy.cm. Please note: The reportedvalue represents the total of one or more individual components during theCT acquisition on this date and at this time, and as such, the same valuemay appear in more than one CT report depending on theinterpreting/reporting physicians. COMPARISON: January 29, 2024. FINDINGS: Chest: Lymph Nodes and Mediastinum: No lymphadenopathy by CT size criteria. Nomediastinal mass lesions. No suspicious thyroid findings. Cardiovascular: The heart is normal in caliber. Thoracic great vessels arepatent. Right internal jugular port with tip near the superior cavoatrialjunction. Lungs and Pleura: Right upper lobe 5 mm nodule remains unchanged (series 2image 91). No new suspicious pulmonary nodules. Unchanged bilateral lowerlung linear scarring. No pleural effusions or suspicious thickening. Musculoskeletal and Body Wall: No clearly aggressive bone lesions.Unchanged left breast soft tissue with adjacent surgical clips. Abdomen/Pelvis: Solid Abdominal Organs: Homogenous hepatic enhancement without suspiciousliver lesion. Tiny low-attenuation focus adjacent to the falciformligament remains unchanged (series 3 image 45). Prior cholecystectomy withintrahepatic biliary ductal ectasia. Unremarkable spleen, pancreas.Redemonstration of right adrenal gland 16 mm nodule and left adrenal glandmyelolipoma. Symmetric renal enhancement. Peripherally enhancing rightupper pole renal lesion remains unchanged measuring 12 mm. Adjacent fatdensity lesion likely 14 mm angiomyolipoma (series 3 images 78 and 80). Nohydronephrosis. GI Tract/Mesentery/Peritoneum: Unremarkable stomach. Duodenal diverticula.The large and small bowel are normal in caliber. No acute inflammation. Nosuspicious mesenteric/peritoneal findings. Pelvic Viscera: Loss of intervening fat plane between the anterior vaginalwall and posterior bladder with associated bladder wall thickening.Redemonstration of vaginal cuff lesion measuring 3.6 x 2 cm, unchanged(series 3 image 261). Changes of prior hysterectomy. Lymph Nodes/Vasculature: Aortocaval lymph node measures 6 mm short axis,previously 8 mm (series 3 image 131). Right common external iliac 16 mmshort axis lymph node, previously 14 mm (series 3 image 244). Left commoniliac 9 mm short axis lymph node, previously 12 mm (series 3 image 188).Left external iliac 8 mm short axis lymph node, previously 13 mm (series 3image 255). The aortoiliac vasculature is patent and normal in caliber. Free Fluid: No free fluid in the abdomen or pelvis. Musculoskeletal and Body Wall: Ventral abdominal wall hernia containingsegment of the sigmoid colon and small bowel without findings to suggestobstruction. No clearly aggressive osseous lesion. Enlarged right inguinallymph nodes measuring up to 12 mm short axis remain unchanged. IMPRESSION: Chest: No evidence of disease progression. Abdomen/Pelvis: Similar appearance of the vaginal cuff lesion andposterior bladder wall thickening. Slight interval enlargement of right external iliac chain lymph node.Remaining retroperitoneal and pelvic adenopathy have decreased in size. CRITICAL RESULT: No. COMMUNICATION: Per this written report. Drafted by Bria Ballesteros MD on 04/22/2024 3:45 PM Final report signed by Bria Ballesteros MD on 04/22/2024 4:10 PM Penelope Dodson MD IMG CT PROCEDURES Fin al Result from Last 3 Months [place] [phone] [facility] Advance Directives * DNR/DNI (Latest Code Status on File) Date Activated Date Inactivated Comments 05/17/2024 8:59 PM 05/23/2024 6:11 PM Question Answer Comments DNR determined on/before admission date? No Patient has decision-making capacity? Yes Care Teams Car Ferrier Relationship Specialty Start Date End Date Flaquita Dorsey DO [address] [place] [address] PCP - General 12/14/21 Aliyah Valencia MD [address] [place] [address] Referring Physician 03/10/21 Conrado Iqbal MD [address] [place] [id number] Service Attending Cardiology 08/19/22
--- OUTSIDE RECORDS SUMMARY | 2024-07-10 11:51 | XMS_ITS | Encounter Summary ---
Author Organization Healthcare Address [address] [place], [place] [id number] Care Team Providers Care Ore Fielder Name Role Phone Aliyah Valencia MD Unavailable [phone] Flaquita Dorsey DO Primary Care Provider [phone] Conrado Iqbal MD Unavailable Reason for Visit * Reason Comments Chemotherapy * Episode Based Medications (Routine) - Authorized Specialty Diagnoses / Procedures Referred By Contshena t Referred To Contact Diagnoses Carcinoma of fallopian tube, unspecified laterality (CMS/HCC) Procedures Bevacizumab Every 21 Days Penelope Carmona MD [address] [facility] [address] [facility] [address] [place] [address] Phone: tel: fax: [facility] [address] [place] [address] Phone: tel: Referral ID Status Reason Start Date Expiration Date V isits Requested Visits Authorized [id number] Authorized 03/13/2023 09/11/2024 1 26 Encounter Details Date Type Department Care Team (Late st Contact Info) Description 06/10/2024 2:00 PM EST Office Visit [facility] [address] [address] [place] [address] Penelope Carmona MD [address] [facility] [address] [place] [address] Carcinoma of fallopian tube, unspecified laterality (CMS/HCC) (Primary Dx); Acute pancreatitis, unspecified complication status, unspecified pancreatitis type Social History Tobacco Use Types Packs/Day Years [...] Date Recorded Patient Health Questionnaire-2 Score 0 06/10/2024 Hunger Vital Sign Answer Date Recorded Within [...] place to sleep or slept in a custodial (including now)? No 05/20/2024 PHQ-9 Answer Date [...] on file documented as of this encounter Last Filed Vital Signs Vital Sign Reading Time Taken Comments Blood Pressure 130/73 06/10/2024 2:36 PM EST Pulse 98 06/10/2024 2:36 PM EST Temperature 36.4 ??C (97.5 ??F) 06/10/2024 2:36 PM ES T Respiratory Rate 16 06/10/2024 2:36 PM EST Oxygen Saturation 93% 06/10/2024 2:36 PM EST Inhaled Oxygen Concentration - - Weight 71.3 kg (157 lb 3 oz) 06/10/2024 2:36 PM EST Height 160 cm (5' 3 ) 06/10/2024 2:36 PM EST Body Mass Index 27.84 06/10/2024 2:36 PM EST documented in this encounter Miscellaneous Notes * Progress Notes - Penelope Carmoan MD - 06/10/2024 2:00 PM EST Primary Care Provider: Flaquita Dorsey DO History of Present Illness: Chief complaint: 78 yo female here for clearance for and administration of Bevacizumab for recurrent fallopian tube cancer Oncologic history is as follows: Oncology History Overview Note Daniela John is a 75 y.o. female who was previously followed by my colleague Dr. Rodney Antonio for astage IA left breast cancer at the 12:00 position that measured 1.4 cm in greatest dimension. On 05/28/2001 she underwent a left lumpectomy and axillary lymph node dissection. Nine lymph nodes were removed and all were negative for metastatic disease. ER and AK were strongly positive and HER-2 was negative. She underwent adjuvant breast radiation and completed 5 years of adjuvant tamoxifen therapy in May 2006. She was then followed in our survivor's clinic when on routine imaging, an abnormality was detectedin the left breast at the lumpectomy bed. Biopsy of the lesion revealed intermediate grade invasiveductal carcinoma that was strongly ER positive in 90% of the cells, AK positive in 95% of cells andHER-2 negative by IHC at 0. On 10/04/2016 she underwent a left needle localized lumpectomy. Lake lymph node biopsy was not performed as the patient previously had a limited axillary lymph node dissection. Final pathology revealed a grade 2 T1c lesion that measured 1.2 cm in greatest dimension. HER-2 was repeated on the lumpectomy specimen and was negative at a ratio 1.8. 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 Initiated neoadjuvant chemo with carbo/Taxol per INVOICING SPECIALIST followed by BSO/Omentectomy and adjuvant Carbotaxol. Recurrence in March 2019. Treated with carbo initially followed by Olaparib. 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 She is currently off of therapy. She follows with Dr. Hutchins in Automation/Controls Manager/Onc. Malignant neoplasm of left breast in female, estrogen receptor positive (CMS/HCC) 05/28/2001 Cancer Staged Staging form: Breast, AJCC 8th Edition, Pathologic stage from 05/28/2001: pT1c, pN0, cM0, G2, ER+, AK+, HER2: Unknown - Signed by Cara Greene MD on 06/19/2021 10/05/2016 Cancer Staged Staging form: Breast, AJCC 8th Edition, Pathologic stage from 10/05/2016: Stage Unknown (rpT1c, pNX, cM0, G2, ER+, AK+, HER2-) - Signed by Cara Greene MD on 06/19/2021 12/09/2020 Initial Diagnosis Malignant neoplasm of left breast in female, estrogen receptor positive (CMS/HCC) Cervical cancer (CMS/HCC) 1984 Initial Diagnosis Cervical cancer (CMS/HCC) - Had HELLEN for pre-cancerous cell - Had Cone and then next day HELLEN - Small cancer noted on final path per patient - No adjuvant therapy required Carcinoma of fallopian tube (CMS/HCC) 03/15/2018 Cancer Staged Staging form: Ovary, Fallopian Tube, and Primary Peritoneal Carcinoma, AJCC 8th Edition, Pathologicstage from 03/15/2018: FIGO Stage IIA, calculated as Stage Unknown (pT2a, pNX, cM0) - Signed by Penelope Dodson MD on 03/31/2021 03/15/2018 Initial Diagnosis Carcinoma of fallopian tube (CMS/HCC) - Patient presented with URI, blackened diarrhea and hematuria summer 2017 - CT scan OSH for hematuria showed 15 x 15 x 14 cm right adnexal mass and a 3 x 3 cm mass at vaginal cuff. - Initial consult [facility] 03/12/2018 - Exam at consult abnormal - EUA/biopsies done 03/15/2018: adenocarcinoma c/w mullerian origin diagnosed - TB consensus: neoadjuvant chemo - Initial Ca125 111 04/11/2018 - Chemotherapy - Neoadjuvant Carbo/Taxol started 04/11/2018 - Ca125 111-60-35 - CT 06/11/2018 (after 3 cycles) shows mass down to 12 cm - Vaginal exam after 3 cycles much improved 06/18/2018 Surgery - BSO/Omentectomy 06/18/2018 - Residual large mass of right ovary, no other gross disease - R0 resection - Final path: right fallopian tube primary with involvement of right ovary - 09/02/2018 Chemotherapy - Competed 3 additional cycles of Carbo/Taxol 09/12/2018 - Ca125 27-14-30-9-8 - Post treatment CT 10/01/2018 JARED 09/2018 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 Recurrence - First recurrence, eek sensitive - CT 04/10/19 with 3 cmlesion at cuff - Ca125 12 (from 8) - MTB discussion: recommend trial if progression on eek regimen or consider Parp for RAD 51 D mutation 05/06/2019 - 08/26/2019 Chemotherapy - Started single agent Carbo 05/06/2019 - Cycle 3 delayed due to syncopal episodes - workup included cards evaluation and carotid US - stable carotid stenosis and no acute cardiac issues - CT 07/15/2019 (after 3 cycles) shows partial response - Completed 6 cycles 08/26/2019 - CT 09/23/2019 (after 6 cycles) shows indeterminate small lung nodule and 1.4 cm vaginal cuff nodule (which is stable) - Required lap ccy for choledocolithiasis 2019 (SGB) - Ca125: 94-8-6-7-7-04-07 - Started Parp inhibitor 09/2019 - Dose reduced Parp 12/2019 due to fatigue and anemia with transfusion - CT 02/05/2020 Stable - Stopped Parp 02/20/2020 due to toxicity - CT 05/06/2020 with slight increase in vaginal cuff thickening 06/2020 Recurrence - Second recurrence - VB prompted her to seek care 06/2020 - Pap showed adenocarcinoma - CT 07/22/2020: cuff nodule up to 3 cm, no other sites of disease - Ca125 10 (from 3) - TB consensus: radiation 08/26/2020 - 09/21/2020 Radiation Therapy - EBRT to 3750 cGy over 26 days 11/27/2020 No evidence of disease - CT post xrt with treatment response noted at vaginal cuff and no other concerning findings - Most recent Ca125 7.49 () 06/30/2021 Recurrence - Third recurrence, eek sensitive - CT 06/30/2021 shows vaginal cuff mass has grown to 4 cm (from 2.2 at last check). Also with interval enlargement of a adrenal nodule on right 08/04/2021 - Chemotherapy - Started single agent Carbo 08/04/2021 - CT 10/04/2021 showed response to therapy (mass at vaginal cuff 2.5 cm from 4 cm) - Completed 6 cycles 11/19/2021 - Ca125: 8.24-6.87-7.04-7.08-6.34 - CT 12/30/2021 [facility] (due to contrast shortage): No clear disease seen 04/11/2022 Recurrence - Fourth recurrence, eek resistant - CT 04/11/2022 with increase in size of mass at apex of vagina to 5 cm from 3.6 cm 04/18/2022 - Chemotherapy - Dana, oral Cytoxan started 04/25/2022 (held 04/18 for 24 hr urine) - Ca125 12.2-6.21-6.37-5.99-6.23-5.61-5.27-5.47 - Cycle 4 Dana held for chest pain workup, resumed after ok by cardio-oncology - CT 08/10/2022 (after 4 cycles): Resolution of vaginal cuff mass, no new findings - Dana stopped after cycle 5 due to CV symptoms, continue oral Cytoxan alone - CT 11/02/2022 (after 2 months Cytoxan alone): JARED 05/16/2022 Genetic Testing Caris Actionable mutations: ER (Hormone therapy), ALEKSEY High (Parp), PDL1 (Pembro) Other findings: Rad51D, TP53, MMR proficient, MSI stable, TMB low 03/13/2023 Progression - CT 03/13/2023 (after 6 months oral cytoxan) with recurrence of 4.3 x 2.6 cm lesion along the vaginal cuff, Suspicious right internal iliac lymph node 03/20/2023 - Chemotherapy - Avastin started 03/20/2023 - Ca125 7.38-7.51-6.5-6.71-6.26-6.58-6.94-6.72-6.86-8.12-9.55-11.5-11.5-10.7-9.98-10- 11.4-10.3-33.7 - CT 06/16/2023: Stable to decreased size of vaginal cuff disease, no other new findings - CT 10/18/2023: Stable vaginal cuff lesion, increasing retroperitoneal adenopathy - CT 01/30/2024: Stable vaginal cuff lesion, increasing adenopathy - CT 04/22/2024: Stable vaginal cuff lesion, 1 LN increased but others decreased Interval updates to history: Oncologic treatment history as described above reviewed today as well as PMH/PSH/Meds/All/SH/FH, with updates made as appropriate. Patient is here today for cycle 21 of Dana. Admitted with pancreatitis since last visit here. CT, US, and MRCP done then and no tumor mass seen in upper abdomen. [place] to be possibly medication related per IM team - taken off statin. Still off that med now as well as off her cytoxan. She still has a lot of epigastric pain and sometimes requires narcotic management for it. Appetite is poor and has some nausea although no emesis. Had some blood in her stool today - has been constipated. Reports we have tried to get colonoscopy in the past but she could not tolerate the prep. She feels very fatigued and generally weak today. 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 SocHx: 1-2 drinks/year, quit smoking 20 years ago, no drugs, retired, lives in [place]. FamHx: Father-prostate, MGma-colon. ROS: 14 pt ROS performed with pertinent positives and negatives as noted in HPI. ROS otherwise negative Objective Physical Exam: Vital Signs for this encounter: BSA: 1.78 meters squared Visit Vitals BP 130/73 (BP Location: Right arm, Patient Position: Sitting, BP Cuff Size: Adult) Pulse 98 Temp 36.4 ??C (97.5 ??F) (Temporal) Resp 16 Ht 1.6 m (5' 3 ) Wt 71.3 kg (157 lb 3 oz) LMP 11/17/1981 (Approximate) SpO2 93% BMI 27.84 kg/m?? OB Status Hysterectomy Smoking Status Former BSA 1.78 m?? Physical Exam Vitals and nursing note reviewed. Constitutional: General: She is not in acute distress. Appearance: Normal appearance. She is well-developed. She is not diaphoretic. Comments: Not distressed but does not appear to feel well today HENT: Head: Normocephalic and atraumatic. Eyes: General: No scleral icterus. Conjunctiva/sclera: Conjunctivae normal. Cardiovascular: Rate and Rhythm: Normal rate. Pulmonary: Effort: Pulmonary effort is normal. No respiratory distress. Abdominal: General: There is no distension. Palpations: Abdomen is soft. Musculoskeletal: General: No signs of injury. Skin: General: Skin is warm and dry. Coloration: Skin is not jaundiced. Findings: No bruising. Neurological: Mental Status: She is alert and oriented to person, place, and time. Mental status is at baseline. Psychiatric: Mood and Affect: Mood normal. Behavior: Behavior normal. Thought Content: Thought content normal. Judgment: Judgment normal. Performance Status: Asymptomatic PS= 0 Results: CBC WBC 8.15 Hgb 10.9 PLT 215 HCT 33.2 Lab Results Component Value Date NEUTROABS 6.73 (H) 06/10/2024 BASIC METABOLIC PANEL Na 137 Cl 102 BUN 16 Gluc 117 K 4.1 Co2 21 Creat 0.80 LIVER FUNCTION TESTING Tot Prot 7.0 AST 26 Tot bili 0.4 ALT 8 Alkphos 89 Ca 9.1 Mg 1.9 Phos 3.7 === 05/17/24 === CT ABDOMEN PELVIS WO IV CONTRAST - Narrative - CLINICAL INDICATION: Peritonitis or perforation suspected TECHNIQUE: Multiple axial CT images were obtained from lung bases through pubic symphysis without the administration of IV contrast. Reformatted images in the coronal and sagittal planes were generated from theaxial data set to facilitate diagnostic accuracy. Total [...] the colon and small volume ascitic fluid - Impression - No evidence of free intraperitoneal air. Peripancreatic fat stranding/inflammation consistent with pancreatitis with small volume fluid tracking to the pelvis. Clinical correlation is recommended. New small bilateral pleural effusions and bibasilar consolidations. CRITICAL RESULT: No. COMMUNICATION: Per this written report. Drafted by Linh Parham MD on 05/19/2024 6:54 PM Final report signed by Linh Parham MD on 05/19/2024 6:59 PM === 05/17/24 === MRCP W AND WO IV CONTRAST - Narrative - CLINICAL INDICATION: Liver disease, chronic, tumor screening [...] (axial and coronal), and axial diffusion. Heavily T2-weightedthick slab, 2D, and 3D MRCP sequences. 7.5 [...] caliber aorta and IVC and patent major abdominal vasculature. Lymph Nodes: No adenopathy. Musculoskeletal: No acute or aggressive lesions. Other: Small bilateral pleural effusions, right greater than left with right basilar atelectasis. Duodenal diverticulum. - Impression - 1. Acute edematous interstitial pancreatitis. No peripancreatic collection. 2. No choledocholithiasis. 3. Small bilateral pleural effusions, right greater than left with right basilar atelectasis CRITICAL RESULT: No. COMMUNICATION: Per this written report. Drafted by Sung Schneider MD on 05/18/2024 2:03 PM Final report signed by Sung Schneider MD on 05/18/2024 2:26 PM Assessment/Plan Problem 1: Recurrent serous fallopian tube cancer (right) Assessment and plan 1: - s/p chemo/debulking at initial diagnosis - Has had additional chemo for recurrence followed by radiation for additional recurrence - Now eek resistant - Started Dana/oral Cytoxan, held Dana after cycle 4 due to Chest pain - CT after 4 cycles showed interval resolution of vaginal mass and no further disease. - At visit 08/2022: Patient had additional CP episode and heart cath subsequently performed. No severe disease noted and coal trimmer reports ok to continue Dana. However, also having random episodes of numbness in limbs (separate from baseline neuropathy). Can not rule out this would be a TIA vs other etiology. Previously discussed at length with patient and why there is some hesitancy to continueVEG-F inhibitor with these symptoms. Given complete response on imaging, risks may outweigh benefits to continue Dana. Patient elected to stop Dana. - Continued oral Cytoxan - CT 03/13/2023 consistent with recurrence at vaginal cuff and with suspicious lymph node. This is corroborated with bleeding symptoms - Discussed options and would like to try adding back Dana as first line. Will add Dana back and continue oral Cytoxan. - CT after cycle 4 06/16/2023 with stable to improved disease at cuff. - CT after cycle 10 10/18/2023: Stable vaginal lesion, possible evolving adenopathy although mild atthis time. Patient tolerating this regimen well so will continue with repeat CT in 3-4 cycles to assess stability - CT after 15 cycles 01/30/2024: some adenopathy progression. Discussed that could consider change oftherapy plan but progression is mild and other options have more significant toxicity. Could continue current regimen until progression more profound. Discussed at length at previous visit and she elects to continue Dana/Cytoxan - CT 04/22/2024: Stable to improved disease in most areas. - Hold cycle 21 of Dana today due to ongoing epigastric pain after admission for pancreatitis. Plan to give IVF in chemo room today and check chemo labs and lipase. RTC for next cycle and if feeling improved can discuss resuming chemo. Problem 2: Encounter for chemotherapy Assessment and plan 2: - Hold cycle 21 of Bevacizumab 15 mg/kg today due to ongoing epigastric pain and recent pancreatitis. Plan q 21 cycles until intolerance or progression. Pre chemo labs reviewed. Continue intensive hematologic monitoring (CBC with diff, CMP) once chemo resumed. Also continue cyclic Ca125 tumor marker monitoring. Reviewed side effects to monitor for. Problem 3: Vaginal bleeding Assessment and plan 3: - Likely due to mass at cuff - Bleeding resolved after starting Dana/Cytoxan first verena - Bleeding recurred with recurrence of mass at cuff - Stable today - Monitor. Problem 4: History of left breast cancer x 2 Assessment and plan 4: - s/p anastrazole. No current signs of disease. Follows up with breast clinic (recent visit JARED) - Off anastrozole at this time Problem 5: Neuropathy Assessment and plan 5: - Treatment related. - Will not use Taxol again. - Currently on Gabapentin 600 mg at bedtime Problem 6: h/o syncope episodes and carotid stenosis, now with chest tightness over 2021, in July 2022, 10/28/2022, 12/15/2022, 04/2023 Assessment and plan 6: - Has been followed in past with cards at - Seen by cardiology at [facility] and acute workup negative but diagnostic cath recommended. Patient declined - In the past held Dana while assessing her cardiac risk - Had second opinion with oncocardiology 06/27/2022 - pain likely related to CAD. - Repeat chest discomfort episode spring 2022. Heart cath done and no stenting required. - Ok to continue Dana per cards - Stopped Dana 07/2022 and continued oral Cytoxan alone due to complete response on CT - Isolated CP episodes 09/2022 and 11/2022. Patient strongly desires to avoid significant cardiac interventions and is accepting of the risks. - Resumed Dana fall 2022 - 1 episode chest pain early April 2023 - ED workup negative for NV - No further episodes since fall 2022 - Continue to monitor closely Problem 7: Intermittent diarrhea Assessment and plan 7: - Unlikely relation to Cytoxan given timing/drug profile - Offered colonoscopy/GI referral but declines for now - Monitor - currently constipated and with blood in stool - Discussed colonoscopy but she has been unable to tolerate prep in past and has declined trying again Problem 8: transaminitis Assessment and plan 8: - AST/ALT 100/50 on day of C8 Dana - Normal on repeat at time of cycle 9 - Elevated again with cycle 10, 11. Still mildly but slowly escalating. - Plan was to continue more intensive hematologic monitoring with low threshold to stop cytoxan. - OSH jumped up 2-3x normal again after cycle 14. Asymptomatic. Labs improved here a week or so later. Held cytoxan while getting CT and labs continued to fluctuate off Cytoxn. Low likelihood that elevation is related to Cytoxan. - Held again per BLUE LINE OPERATOR with cycle 17. Resumed for cycle 18. Have been largely normal LFT's since until the pancreatitis episode - Check labs today. Holding cytoxan until ensure pancreatitis episode fully resolved Problem 9: History of cervical cancer Assessment and plan 9: - Distant history, residential survivor. Problem 10: Recent pancreatitis Assessment and plan 10: - Admitted 04/2024 for this with IM service. - Still with epigastric pain and nausea - Plan to check lipase and CMP. Will hydrate in chemo room - Do not have evidence on MRCP that cancer related obstruction is the cause of this. - Has not followed up with medicine since discharge. Suggested we get PCP involved to help follow up any medical causes of her pancreatitis. - Hold chemo for another cycle until she feels better. If fails to improve may need to scan again to see if cancer relation to symptoms noted (would be unusual given this was not seen on imaging lastmonth) Summary of time spent in team based care today includes the following activities performed by myself: review of prior documentation in preparation for visit, review of labs and any other test results, obtaining and reviewing medical history, appropriate focused physical exam, discussion of exam and/or test results, discussion of plan of care, lab orders, phlebotomy, chemo related decision making,a documented in this encounter Plan of Treatment Upcoming Encounters Date Type Department Care Team (Late st Contact Info) Description 08/05/2024 8:00 AM EST Office Visit [facility] [address] [place] [address] Penelope Carmona MD [address] [place] [address] 08/05/2024 9:30 AM EST Appointment [facility] [address] [place] [address] 02/26/2025 9:30 AM EDT Appointment [facility] [address] [place] [address] 02/26/2025 10:30 AM EDT Office Visit [facility] [address] [place] [address] Berenice Resendez, BLUE LINE OPERATOR [address] [facility] [address] [place] [address] documented as of this encounter Procedures Procedure Name Priority Date/Time Associated Diagnosis Comments CBC WITH AUTO DIFFERENTIAL Routine 06/10/2024 2:51 PM EST Carcinoma of fallopian tube, unspecified laterality (CMS/HCC) CA 125 Routine 06/10/2024 2:51 PM EST Carcinoma of fallopian tube, unspecified laterality (CMS/HCC) LIPASE, PLASMA Add-On 06/10/2024 2:51 PM EST Carcinoma of fallopian tube, unspecified laterality (CMS/HCC) COMPREHENSIVE METABOLIC PANEL, PLASMA Routine 06/10/2024 2:51 PM EST Carcinoma of fallopian tube, unspecified laterality (CMS/HCC) documented in this encounter Results * Lipase (06/10/2024 2:51 PM EST) Lipase, Plasma 32 19 - 63 U/L 06/10/2024 4:28 PM EST [facility] Blood Venous blood specimen / Unknown (Port) Long-term Catheter / Unknown 06/10/2024 2:51 PM EST 06/10/2024 3:14 PM EST us Penelope Dodson MD LAB BLOOD ORDERABLES Final Result [facility] [address] [place] [address] * CA 125 (06/10/2024 2:51 PM EST) CA 125 33.70 <=38.00 U/mL 06/10/2024 3:56 PM EST [facility] Blood Venous blood specimen / Unknown (Port) Long-term Catheter / Unknown 06/10/2024 2:51 PM EST 06/10/2024 3:14 PM EST Narrative [facility] - 06/10/2024 3:56 PM EST Performed by Stephie electrochemiluminescent immunoassay. Results obtained with different test methods or kits cannot be used interchangeably. us Penelope Dodson MD LAB BLOOD ORDERABLES Final Result [facility] [address] [place] [address] * (ABNORMAL) Comprehensive metabolic panel (06/10/2024 2:51 PM EST) Glucose, Plasma 117(H) 74 - 99 mg/dL 06/10/2024 3:51 PM EST [facility] BUN, Plasma 16 8 - 23 mg/dL 06/10/2024 3:51 PM EST [facility] Creatinine, Plasma 0.80 0.60 - 1.10 mg/dL 06/10/2024 3:51 PM EST [facility] BUN/Creatinine Ratio 20 06/10/2024 3:51 PM EST [facility] Sodium, Plasma 137 136 - 145 mmol/L 06/10/2024 3:51 PM EST [facility] Potassium, Plasma 4.1 3.6 - 4.9 mmol/L 06/10/2024 3:51 PM EST [facility] Chloride, Plasma 102 97 - 107 mmol/L 06/10/2024 3:51 PM EST [facility] CO2, Plasma 21(L) 22 - 29 mmol/L 06/10/2024 3:51 PM EST [facility] Anion Gap 14 6 - 16 mmol/L 06/10/2024 3:51 PM EST [facility] Total Calcium, Plasma 9.1 8.9 - 10.2 mg/dL 06/10/2024 3:51 PM EST [facility] Total Protein 7.0 6.3 - 7.9 g/dL 06/10/2024 3:51 PM EST [facility] Albumin, Plasma 3.2(L) 3.5 - 5.2 g/dL 06/10/2024 3:51 PM EST [facility] AST, Plasma 26 10 - 35 U/L 06/10/2024 3:51 PM EST [facility] Comment:Hemolyzed, result ma y be falsely increased. ALT, Plasma 8(L) 10 - 35 U/L 06/10/2024 3:51 PM EST [facility] Alkaline Phosphatase, Plasma 89 46 - 142 U/L 06/10/2024 3:51 PM EST [facility] Total Bilirubin, Plasma 0.4 0.2 - 1.1 mg/dL 06/10/2024 3:51 PM EST [facility] eGFRcr 75.5 mL/min/1.7 3m*2 06/10/2024 3:51 PM EST [facility] Comment:Reported eGFRcr in m L/min/1.73m2 is based the CKD-EPI 2020 equation that does not use a race coefficient. Blood Venous blood specimen / Unknown (Port) Long-term Catheter / Unknown 06/10/2024 2:51 PM EST 06/10/2024 3:14 PM EST us Penelope Dodson MD LAB BLOOD ORDERABLES Final Result [facility] [address] [place] [address] * (ABNORMAL) CBC and differential (06/10/2024 2:51 PM EST) WBC Count 8.15 3.70 - 10.30 10*3/uL LAB HEMATOLOGY METHOD 06/10/2024 3:23 PM [address] [facility] RBC Count 3.10(L) 3.90 - 5.20 10*6/uL LAB HEMATOLOGY METHOD 06/10/2024 3:[address] PM [address] [facility] HGB 10.9(L) 11.2 - 15.7 g/dL LAB HEMATOLOGY METHOD 06/10/2024 3:[address] PM [address] [facility] HCT 33.2(L) 34.0 - 45.0 % LAB HEMATOLOGY METHOD 06/10/2024 3:23 PM EST [facility] Platelet Count 215 155 - 369 10*3/uL LAB HEMATOLOGY METHOD 06/10/2024 3:23 PM EST [facility] MCV 107(H) 79 - 98 fL LAB HEMATOLOGY METHOD 06/10/2024 3:23 PM EST [facility] MCH 35.2(H) 26.0 - 32.0 pg LAB HEMATOLOGY METHOD 06/10/2024 3:23 PM EST [facility] MCHC 32.8 30.7 - 35.5 g/dL LAB HEMATOLOGY METHOD 06/10/2024 3:23 PM EST [facility] RDW 17.0(H) 11.5 - 14.5 % LAB HEMATOLOGY METHOD 06/10/2024 3:23 PM [address] [facility] MPV 9.1 8.8 - 12.5 fL LAB HEMATOLOGY METHOD 06/10/2024 3:23 PM EST [facility] nRBC 0.0 <=0.0 per 100 WBCs LAB HEMATOLOGY METHOD 06/10/2024 3:23 PM [facility] Differential Type Automated LAB HEMATOLOGY METHOD 06/10/2024 3:23 PM EST [facility] Neutrophils % 82 % LAB HEMATOLOGY METHOD 06/10/2024 3:23 PM [facility] Lymphocytes % 8 % LAB HEMATOLOGY METHOD 06/10/2024 3:23 PM EST [facility] Monocytes % 7 % LAB HEMATOLOGY METHOD 06/10/2024 3:23 PM [facility] Eosinophils % 1 % LAB HEMATOLOGY METHOD 06/10/2024 3:23 PM EST [facility] Basophils % 1 % LAB HEMATOLOGY METHOD 06/10/2024 3:23 PM EST [facility] Immature Granulocytes % 1 % LAB HEMATOLOGY METHOD 06/10/2024 3:23 PM EST [facility] Neutrophils Absolute 6.73(H) 1.60 - 6.10 10*3/uL LAB HEMATOLOGY METHOD 06/10/2024 3:23 PM EST [facility] Lymphocytes Absolute 0.67(L) 1.20 - 3.90 10*3/uL LAB HEMATOLOGY METHOD 06/10/2024 3:23 PM EST [facility] Monocytes Absolute 0.53 0.30 - 0.90 10*3/uL LAB HEMATOLOGY METHOD 06/10/2024 3:23 PM EST [facility] Eosinophils Absolute 0.11 0.00 - 0.50 10*3/uL LAB HEMATOLOGY METHOD 06/10/2024 3:23 PM EST [facility] Basophils Absolute 0.05 0.00 - 0.10 10*3/uL LAB HEMATOLOGY METHOD 06/10/2024 3:23 PM EST [facility] Immature Granulocytes Absolute 0.06 0.00 - 0.06 10*3/uL LAB HEMATOLOGY METHOD 06/10/2024 3:23 PM EST [facility] Blood Venous blood specimen / Unknown (Port) Long-term Catheter / Unknown 06/10/2024 2:51 PM EST 06/10/2024 3:19 PM EST Narrative [facility] - 06/10/2024 3:23 PM EST Therapeutic decision making should be based on absolute values, rather than percentages. us Penelope Dodson MD LAB BLOOD ORDERABLES Final Result [facility] [address] [place] [address] documented in this encounter Visit Diagnoses Diagnosis Carcinoma of fallopian tube, unspecified laterality (CMS/HCC)- Primary Acute pancreatitis, unspecified complication status, unspecified pancreatitis type documented in this encounter Additional Health Concerns Assessment Noted Time PHQ-9 Depression Total Score: 0 06/10/20 2:41 PM EST A fall risk assessment has been complete d for the patient 06/10/2024 3:55 PM EST A Body Mass Index follow-up plan has been documented for the patient 05/23/2024 1:34 PM EDT documented as of this encounter Care Teams Ore Fielder Relationship Specialty Start Date End Date Flaquita Dorsey DO [address] [place], [place] [id number] PCP - General 12/14/21 Aliyah Valencia MD [address] [place] [address] Referring Physician 03/10/21 Conrado Iqbal MD [address] [place] [address] Service Attending Cardiology 08/19/22 documented as of this encounter
--- OUTSIDE RECORDS SUMMARY | 2024-07-10 11:51 | XMS_ITS | Encounter Summary ---
Author Organization Healthcare Address [address] [place] [address] Care Team Providers Care Manager Asset Name Role Phone Aliyah Valencia MD Unavailable [phone] Flaquita Dorsey DO Primary Care Provider [phone] Conrado Iqbal MD Unavailable Encounter Details Date Type Department Care Team (Late st Contact Info) Description 07/02/2024 Telephone [facility] [address] [place] [address] Zeenat Caballero, PharmD [facility] [address] [place], [place] [id number] Social History Tobacco Use Types Packs/Day Years [...] in a intermediate (including now)? No 05/20/2024 PHQ-9 Answer Date [...] on file documented as of this encounter Miscellaneous Notes * Telephone Encounter - Zeenat Caballero, PharmD - 07/02/2024 3:26 PM EST [facility] Discharge of Clinical Services Specialty Medications and their indications: Cyclophosphamide - fallopian tube cancer Reason(s) for discharge: Discontinued/ Completed Therapy Summary of care provided: Benefits investigation, Prior authorization, Education, and Financial assistance Patient's ongoing unmet needs/care: Patient has no ongoing unmet needs. Instructions or referral information provided to the patient/responsible green party: No referral information needed- Medication was stopped Zeenat Caballero, PharmBirgit 07/02/2024 3:27 PM documented in this encounter Plan of Treatment Upcoming Encounters Date Type Department Care Team ([facility] st Contact Info) Description 08/05/2024 8:00 AM EST Office Visit [facility] [address] [facility] [address] [place] [address] Penelope Carmona MD 800 [facility] [address] [facility] [address] [place] [address] 08/05/2024 9:30 AM EST Appointment [facility] 1 [address] [place] [address] 02/26/2025 9:30 AM EDT Appointment [facility] [address] [facility] [address] [place] [address] 02/26/2025 10:30 AM EDT Office Visit [facility] Breast Care Center [address] [facility], [address]nd [place] [address] Berenice Resenedz D, MS SQL SERVER DEVELOPER [address] [facility] [address] [facility] [address] [place] [address] documented as of this encounter Visit Diagnoses Not on filedocumented in this encounter Additional Health Concerns Assessment Noted Time PHQ-9 Depression Total Score: 0 06/10/20 24 2:41 PM EST A fall risk assessment has been complete d for the patient 07/01/2024 10:24 AM EST A Body Mass Index follow-up plan has been documented for the patient 05/23/2024 1:34 PM EDT documented as of this encounter Care Teams Manager Asset Relationship Specialty Start Date End Date Flaquita Dorsey DO [address] [place], [place] [id number] PCP - General 12/14/21 Aliyah Valencia MD [address] [place] [address] Referring Physician 03/10/21 Conrado Iqbal MD [address] [place] [address] Service Attending Cardiology 08/19/22 documented as of this encounter
--- OUTSIDE RECORDS SUMMARY | 2024-07-10 11:51 | XMS_ITS | Encounter Summary ---
Author Organization Healthcare Address [facility] [place] [id number] Care Team Providers Care Mathematics Technician Name Role Phone Aliyah Valencia MD Unavailable [phone] Flaquita Dorsey DO Primary Care Provider [phone] Conrado Iqbal MD Unavailable Encounter Details Date Type Department Care Team (Late st Contact Info) Description 06/13/2024 Telephone [facility] [address] [place] [phone] Penelope Carmona MD [address] [facility] [address] [place] [address] Social History Tobacco Use Types Packs/Day Years [...] place to sleep or slept in a long term (including now)? No 05/20/2024 PHQ-9 Answer Date [...] Office Visit [facility] [address] [place] [address] Penelope Carmona MD [address] [place] [address] 08/05/2024 9:30 AM EST Appointment [facility] 1 [address] [place] [address] 02/26/2025 9:30 AM EDT Appointment [facility] [address]ha Lai [facility] [address] [place] [address] 02/26/2025 10:30 AM EDT Office Visit [facility] [address] [facility], 2nd [place] [address] Berenice Resendez, ASSISTANT RESTAURANT GENERAL MANAGER 800 [facility] [address] [place] [address] documented as of this encounter [...] documented as of this encounter Care Teams Mathematics Technician Relationship Specialty Start Date End Date Flaquita Dorsey DO [address] [place] [address] PCP - General 12/14/21 Aliyah Valencia MD [address] [place] [address] Referring Physician 03/10/21 Conrado Iqbal MD [address] [place] [address] Service Attending Cardiology 08/19/22 documented as of this encounter
--- OUTSIDE RECORDS SUMMARY | 2024-07-10 11:51 | XMS_ITS | Encounter Summary ---
Author Organization [facility] Address [address] [place] [address] Care Team Providers Care Fig Bar Machine Operator Name Role Phone Aliyah Valencia MD Unavailable [phone] Flaquita Dorsey DO Primary Care Provider [phone] Conrado Iqbal MD Unavailable Encounter Details Date Type Department Care Team (Latest Contact Info) Description 07/01/2024 Travel Social History Tobacco Use Types Packs/Day [...] place to sleep or slept in a retirement (including now)? No 05/20/2024 PHQ-9 Answer Date [...] Description 08/05/2024 8:00 AM EST Office Visit [facility] Gynecology [address] [place] [address] Penelope Carmona MD 800 [facility] [address] [place] [address] 08/05/2024 9:30 AM EST Appointment [facility] Infusion Clinic 1 [address] [place] [address] 02/26/2025 9:30 AM EDT Appointment [facility] Breast Care Center [facility] [address] Building [address] [place] [address] 02/26/2025 10:30 AM EDT Office Visit [facility] [address] [facility], 2nd [place] [address] Berenice Resendez, HEARING CARE PROFESSIONAL [address] [facility] [address] [place] [address] documented as of this encounter [...] documented as of this encounter Care Teams Fig Bar Machine Operator Relationship Specialty Start Date End Date Flaquita Dorsey DO [address] [place] [address] PCP - General 12/14/21 Aliyah Valencia MD [address] [place] [address] Referring Physician 03/10/21 Conrado Iqbal MD [address] [place] [address] Service Attending Cardiology 08/19/22 documented as of this encounter
--- OUTSIDE RECORDS SUMMARY | 2024-07-10 11:51 | XMS_ITS | Encounter Summary ---
Author Organization [facility] Address [address] [place] [address] Care Team Providers Care Business Continuity Specialist Name Role Phone Aliyah Valencia MD Unavailable [phone] Flaquita Dorsey DO Primary Care Provider [phone] Conrado Iqbal MD Unavailable Encounter Details Date Type Department Care Team (Latest Contact Info) Description 06/10/2024 Travel Social History Tobacco Use Types Packs/Day [...] place to sleep or slept in a longterm (including now)? No 05/20/2024 PHQ-9 Answer Date [...] Description 08/05/2024 8:00 AM EST Office Visit [facility] Gynecology [address] [place] [address] Penelope Carmona MD 800 [facility] [address] [place] [address] 08/05/2024 9:30 AM EST Appointment [facility] Infusion Clinic 1 [address] [place] [address] 02/26/2025 9:30 AM EDT Appointment [facility] Breast Care Center Comprehensive [facility] [address] Building [address] [place] [address] 02/26/2025 10:30 AM EDT Office Visit [facility] [address] [facility], [address]nd [place] [address] Berenice Resendez, APPOINTMENT COORDINATOR 800 [facility] [address] [place] [address] documented as of this encounter [...] documented as of this encounter Care Teams Business Continuity Specialist Relationship Specialty Start Date End Date Flaquita Dorsey DO [address] [place] [address] PCP - General 12/14/21 Aliyah Valencia MD [address] [place] [address] Referring Physician 03/10/21 Conrado Iqbal MD [address] [place] [address] Service Attending Cardiology 08/19/22 documented as of this encounter
--- OUTSIDE RECORDS SUMMARY | 2024-07-10 11:51 | XMS_ITS | Encounter Summary ---
Author Organization [facility] Address [facility] [place] [id number] Care Team Providers Care Wire Coating Operator Metal Name Role Phone Aliyah Valencia MD Unavailable [phone] Flaquita Dorsey DO Primary Care Provider [phone] Conrado Iqbal MD Unavailable Reason for Visit * Episode Based Medications (Routine) - Authorized Specialty Diagnoses / Procedures Referred By Contac t Referred To Contact Diagnoses Carcinoma of fallopian tube, unspecified laterality (CMS/HCC) Procedures Bevacizumab Every 21 Days Penelope Carmona MD [address] [address] Phone: tel: fax: [facility] Infusion Clinic 2 [address] [place] [address] Phone: tel: Referral ID Status Reason Start Date Expiration Date V isits Requested Visits Authorized [id number] Authorized 03/13/2023 09/11/2024 1 26 Encounter Details Date Type Department Care Team (Latest Contact Info) Description 07/01/2024 10:15 AM EST - 07/01/2024 11:59 PM EST Hospital Encounter [facility] Infusion Clinic 2 [address] [place] [address] Vaginal bleeding (Primary Dx); Malignant neoplasm of cervix, unspecified site (CMS/HCC); Carcinoma of fallopian tube, unspecified laterality (CMS/HCC); Malignant neoplasm of left breast in female, estrogen receptor positive, unspecified site of breast (CMS/HCC); Osteopenia, unspecified location; History of aromatase inhibitor therapy Discharge Disposition: Home or Self Care Social [...] place to sleep or slept in a assisted (including now)? No 05/20/2024 PHQ-9 Answer Date Recorded Patient Health Questionnaire-9 Score 0 06/10/2024 Utilities Answer Date Recorded In the past 12 months has th e [employer], gas, oil, or water company threatened to [...] Mass Index 28.55 07/01/2024 10:24 AM EST documented in this encounter Medications at Time of Discharge aspirin 81 MG chewable tablet Chew 1 tablet (81 mg) 1 (one) time each day. ergocalciferol (Vitamin D-2) 1.25 MG (13502 UT) capsule Take 1 capsule (50,000 Units) by mouth 1 (one) time per week. Monday erythromycin (Romycin) 5 MG/GM ophthalmic ointment Apply 1 Application to right eye every 8 (eight) hours. 08/11/2023 furosemide (Lasix) 20 MG tablet Take 1 tablet (20 mg) by mouth 1 (one) time each day. 12/10/2021 gabapentin (Neurontin) 300 MG capsuleIndications: Carcinoma of fallopian tube, unspecified laterality (CMS/HCC) Take 2 capsules (600 mg) by mouth every night. 60 capsule 3 04/29/2024 lisinopril 5 MG tablet Take 1 tablet (5 mg) by mouth 1 (one) time each day. naloxone (Narcan) 4 mg/0.1 mL nasal spray 1. Give 1 spray in nostril for no/slow breathing or cannot wake after opioid use 2. Call 911 3. Repeat in other nostril if symptoms continue 05/23/2024 ondansetron ODT (Zofran-ODT) 4 MG disintegrating tablet Take 1 tablet (4 mg) by mouth every 6 (six) hours if needed for nausea or vomiting. 05/23/2024 oxyCODONE (Roxicodone) 5 MG immediate release tablet Take 1 tablet (5 mg) by mouth every 6 (six) hours if needed for moderate pain. 05/30/2024 potassium chloride ER (Micro-K) 10 MEQ ER capsule Take 1 capsule (10 mEq) by mouth 2 (two) times a day. 12/10/2021 Synthroid 75 MCG tablet Take 1 tablet (75 mcg) by mouth 1 (one) time each day in the morning. 02/16/2024 documented as of this encounter Plan of Treatment Upcoming Encounters Date Type Department Care Team (Late st Contact Info) Description 08/05/2024 8:00 AM EST Office Visit [facility] Gynecology 800 [facility] [address] [place] [address] Penelope Carmona MD 800 [facility] [address] [facility] [address] [place] [address] 08/05/2024 9:30 AM EST Appointment [facility] 1 [address] [place] [address] 02/26/2025 9:30 AM EDT Appointment [facility] Breast Care Center Comprehensive [facility] [address] [facility] [address] [place] [address] 02/26/2025 10:30 AM EDT Office Visit [facility] Breast Care Center [address] [facility], [address] [place] [address] Berenice Resendez, COFFEE PLANTATION WORKER 800 [facility] Myara Guillenson [facility] [address] [place] [address] documented as of this encounter Procedures Procedure Name Priority Date/Time Associated Diagnosis Comments PROTEIN, URINE, RANDOM WITH CREATININE Routine 07/01/2024 11:33 AM EST Vaginal bleeding Malignant neoplasm of cervix, unspecified site (CMS/HCC) documented in this encounter Results * Protein, Random, Urine with Creatinine (07/01/2024 11:33 AM EST) Protein, Urine 61 mg/dL 07/01/2024 12:[address] [facility] Creatinine, Urine 66 mg/dL 07/01/2024 12:[address] [facility] Protein/Creatin ine Ratio 0.9 mg/mg Creat 07/01/2024 12:[address] [facility] Urine Urine specimen obtained by clean catch procedure / Unknown Non-blood Collection / Unknown 07/01/2024 11:33 AM EST 07/01/2024 11:44 AM EST us Penelope Dodson MD LAB URINE ORDERABLES Final Result [facility] [address] [place] [address] documented in this encounter Visit Diagnoses Diagnosis Vaginal bleeding- Primary Other specified noninflammatory disorder of vagina Malignant neoplasm of cervix, unspecified site (CMS/HCC) Carcinoma of fallopian tube, unspecified laterality (CMS/HCC) Malignant neoplasm of left breast in female, estrogen receptor positive, unspecified site of breast (CMS/HCC) Osteopenia, unspecified location History of aromatase inhibitor therapy documented in this encounter Administered Medications Inactive Administered Medications - up to 3 most recent administrations Medication Order MAR Action Action Date Dose Rate Site bevacizumab (Avastin) 1,200 mg in sodium chloride 0.9 % 100 mL chemo IVPB 1,200 mg (rounded from 1,186.5 mg = 15 mg/kg ? 79.1 kg Treatment plan Recorded weight), Intravenous, at 356 mL/hr, Administer over 30 Minutes, Once, Bevacizumab should not be administered within 28 days of surgery. Not compatible with Dextrose. Hold for at least 28 days after surgery. Monitor BP prior to and upon completion of infusion. Specific administration requirements refer to [id number]., On 07/01/24 at 1315, For 1 dose, NS 100 mLIndications:Carcinoma of fallopian tube, unspecified laterality (CMS/HCC) New Bag 07/01/2024 2:05 PM EST 1,200 mg 356 mL/hr denosumab (Prolia) 60 MG/ML injection 60 mg 60 mg, Subcutaneous, Once, Avoid vigorous shaking of syringe; Prior to administration, bring to room temperature in original container for about 15 to 30 minutes; Administer via subcutaneous route in upper arm, upper thigh, or abdomen, On Mon07/01/24 at 1330, For 1 doseIndications:Malignan t neoplasm of left breast in female, estrogen receptor positive, unspecified site of breast (CMS/HCC),Osteopenia, unspecified location,History of aromatase inhibitor therapy Given 07/01/2024 2:36 PM EST 60 mg Right Upper Arm (Back) sodium chloride 0.9 % bolus 500 mL 500 mL, Intravenous, Once, 1 dose, On Mon07/01/24 at 1315, Administer over 30 Minutes, RoutineIndications:Carci noma of fallopian tube, unspecified laterality (CMS/HCC) New Bag 07/01/2024 1:25 PM EST 500 mL 1000 mL/hr documented in this encounter Additional Health Concerns Assessment Noted Time PHQ-9 Depression Total Score: 0 06/10/20 2:41 PM EST A fall risk assessment has been complete d for the patient 07/01/2024 10:24 AM EST A Body Mass Index follow-up plan has been documented for the patient 05/23/2024 1:34 PM EDT documented as of this encounter Care Teams Wire Coating Operator Metal Relationship Specialty Start Date End Date Flaquita Dorsey DO [address] [place] [address] PCP - General 12/14/21 Aliyah Valencia MD [address] [place] [place] [address] Referring Physician 03/10/21 Conrado Iqbal MD [address] [place] [address] Service Attending Cardiology 08/19/22 documented as of this encounter
--- OUTSIDE RECORDS SUMMARY | 2024-07-10 11:51 | XMS_ITS | Encounter Summary ---
Author Organization [facility] Address [address] [place], [place] [id number] Care Team Providers Care Assistant Boiler Operator Name Role Phone Aliyah Valencia MD Unavailable [phone] Flaquita Dorsey DO Primary Care Provider [phone] Conrado Iqbal MD Unavailable Reason for Visit * Episode Based Medications (Routine) - Authorized Specialty Diagnoses / Procedures Referred By Contac t Referred To Contact Diagnoses Carcinoma of fallopian tube, unspecified laterality (CMS/HCC) Procedures Bevacizumab Every 21 Days Penelope Carmona MD [address] [address] Phone: tel: fax: [facility] [address] [place] [address] Phone: tel: Referral ID Status Reason Start Date Expiration Date V isits Requested Visits Authorized [id number] Authorized 03/13/2023 09/11/2024 1 26 Encounter Details Date Type Department Care Team (Latest Contact Info) Description 06/10/2024 3:00 PM EST - 06/10/2024 11:59 PM EST Hospital Encounter [facility] [address] [place] [address] Carcinoma of fallopian tube, unspecified laterality (CMS/HCC) (Primary Dx) Discharge Disposition: Home or Self Care Social [...] place to sleep or slept in a fci (including now)? No 05/20/2024 PHQ-9 Answer Date Recorded Patient Health Questionnaire-9 Score 0 06/10/2024 Utilities Answer Date Recorded In the past 12 months has e electric, gas, oil, or water company [...] Sign Reading Time Taken Comments Blood Pressure 108/64 06/10/2024 3:55 PM EST Pulse 114 06/10/2024 3:55 PM EST Temperature 36.7 ??C (98 ??F) 06/10/2024 3:55 PM EST Respiratory Rate 16 06/10/2024 3:55 PM EST Oxygen Saturation 97% 06/10/2024 3:55 PM EST Inhaled Oxygen Concentration - - Weight 72.4 kg (159 lb 9.8 oz) 06/10/2024 3:55 P M EST Height 160 cm (5' 3 ) 06/10/2024 3:55 PM EST Body Mass Index 28.27 06/10/2024 3:55 PM EST documented in this encounter Medications at Time of Discharge aspirin 81 MG chewable tablet Chew 1 tablet (81 mg) 1 (one) time each day. ergocalciferol (Vitamin D-2) 1.25 MG (28149 UT) capsule Take 1 capsule (50,000 Units) [...] time each day in the morning. 02/16/2024 polyethylene glycol (Miralax) 17 g packet Take 17 g by mouth 1 (one) time each day. 05/23/2024 06/22/20 senna (Senokot) 8.6 MG tablet Take 1 tablet (8.6 mg) by mouth every night. 05/23/2024 06/22/20 documented as of this encounter Miscellaneous Notes * Progress Notes - Ely Camilo APRN - 06/10/2024 3:00 PM EST IVF documented in this encounter Plan of Treatment Upcoming Encounters Date Type Department Care Team (Late st Contact Info) Description 08/05/2024 8:00 AM EST Office Visit [facility] [address] [place] [address] Penelope Carmona MD [address] [facility] [address] [facility] [address] [place] [address] 08/05/2024 9:30 AM EST Appointment [facility] [address] [place] [address] 02/26/2025 9:30 AM EDT Appointment [facility] [address] [address] [address] [facility] [address] [place] [address] 02/26/2025 10:30 AM EDT Office Visit [facility] [address] [facility] [place] [address] Berenice Resendez, [employer]BER [address] [facility] [address] [place] [address] documented as of this encounter Visit Diagnoses Diagnosis Carcinoma of fallopian tube, unspecified laterality (CMS/HCC)- Primary documented in this encounter Administered Medications Inactive Administered Medications - up to 3 most recent administrations Medication Order MAR Action Action Date Dose Rate Site sodium chloride 0.9 % bolus 1,000 mL 1,000 mL, Intravenous, Once, 1 dose, On 06/10/24 at 1645, Administer over 2 Hours, RoutineIndications:Carcinoma of fallopian tube, unspecified laterality (CMS/HCC) New Bag 06/10/2024 4:20 PM EST 1,000 mL 999 mL/hr documented in this encounter Additional Health Concerns Assessment Noted Time PHQ-9 Depression Total Score: 0 06/10/20 2:41 PM EST A fall risk assessment has been complete d for the patient 06/10/2024 3:55 PM EST A Body Mass Index follow-up plan has been documented for the patient 05/23/2024 1:34 PM EDT documented as of this encounter Care Teams Assistant Boiler Operator Relationship Specialty Start Date End Date Flaquita Dorsey DO [address] [place] [address] PCP - General 12/14/21 Aliyah Valencia MD [address] [place] [address] Referring Physician 03/10/21 Conrado Iqbal MD [address] [place] [address] Service Attending Cardiology 08/19/22 documented as of this encounter
--- OUTSIDE RECORDS SUMMARY | 2024-07-10 11:51 | XMS_ITS | Encounter Summary ---
Author Organization [facility] Address [facility] [address] [id number] Care Team Providers Care Mixologist Name Role Phone Aliyah Valencia MD Unavailable [phone] Flaquita Dorsey DO Primary Care Provider [phone] Conrado Iqbal MD Unavailable Reason for Visit * Reason Comments Chemotherapy Encounter Details Date Type Department Care Team ([facility] st Contact Info) Description 07/01/2024 9:00 AM EST Office Visit [facility] Gynecology [address] [facility] [address] [place] [id number] Penelope Carmona MD [address] [facility] [address] [facility] [address] [place] [address] Carcinoma of fallopian tube, unspecified laterality (CMS/HCC) (Primary Dx); Encounter for antineoplastic chemotherapy; Vaginal bleeding; H/O acute pancreatitis; CEZAR (acute kidney injury) (CMS/HCC) Social History Tobacco Use Types Packs/Day Years [...] place to sleep or slept in a halfway (including now)? No 05/20/2024 PHQ-9 Answer Date Recorded Patient Health Questionnaire-9 Score 0 06/10/2024 Utilities Answer Date Recorded In the past 12 months has e [employer], gas, oil, or water [employer] threatened to shut off services in your [...] Sign Reading Time Taken Comments Blood Pressure 110/50 07/01/2024 9:30 AM EST Pulse 104 07/01/2024 9:30 AM EST Temperature 36.8 ??C (98.2 ??F) 07/01/2024 9:30 AM ES T Respiratory Rate 18 07/01/2024 9:30 AM EST Oxygen Saturation 95% 07/01/2024 9:30 AM EST Inhaled Oxygen Concentration - - Weight 73.5 kg (162 lb 0.6 oz) 07/01/2024 9:30 A M EST Height - - Body Mass Index 28.7 06/10/2024 3:55 PM EST documented in this encounter Miscellaneous Notes * Progress Notes - Anum Ballesteros MD - 07/01/2024 9:00 AM EST Primary Care Provider: Flaquita Dorsey DO History of Present Illness: Chief complaint: 78 yo female here for clearance for and administration of Bevacizumab for recurrent fallopian tube cancer. Oncologic history is as follows: Oncology History [...] were negative for metastatic disease. ER and WI were strongly positive and HER-2 was negative. [...] ER positive in 90% of the cells, WI positive in 95% of cells andHER-2 negative by IHC at 0. On 10/04/2016 she underwent a left needle localized lumpectomy. [place] lymph node biopsy was not performed as [...] vagina). Initiated neoadjuvant chemo with carbo/Taxol per DRY ROOM ATTENDANT followed by BSO/Omentectomy and adjuvant Carbotaxol. Recurrence in March 2019. Treated with carbo initially followed by Olaparib. 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 She is currently off of therapy. She follows with Dr. Hutchins in Customer Training Specialist/Onc. Malignant neoplasm of left breast in female, estrogen receptor positive (CMS/HCC) 05/28/2001 Cancer Staged Staging form: Breast, AJCC 8th Edition, Pathologic stage from 05/28/2001: pT1c, pN0, cM0, G2, ER+, WI+, HER2: Unknown - Signed by Cara Greene MD on 06/19/2021 10/05/2016 Cancer Staged Staging form: Breast, AJCC 8th Edition, Pathologic stage from 10/05/2016: Stage Unknown (rpT1c, pNX, cM0, G2, ER+, WI+, HER2-) - Signed by Cara Greene MD on 06/19/2021 12/09/2020 Initial Diagnosis Malignant neoplasm of left breast in female, estrogen receptor positive (CMS/HCC) Cervical cancer (CMS/HCC) 1985 Initial Diagnosis Cervical cancer (CMS/HCC) - Had [...] additional cycles of Carbo/Taxol 09/12/2018 - Ca125 93-99-31-9-8 - Post treatment CT 10/01/2018 JARED 09/2018 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 Recurrence - First recurrence, [place] sensitive - CT 04/10/19 with 3 cmlesion at cuff - Ca125 12 (from 8) - MTB discussion: recommend trial if progression on [place] regimen or consider Parp for RAD 51 [...] ccy for choledocolithiasis 2019 (SGB) - Ca125: 77-4-5-7-7-9-8 - Started Parp inhibitor 09/2019 - Dose [...] 7.49 () 06/30/2021 Recurrence - Third recurrence, [place] sensitive - CT 06/30/2021 shows vaginal cuff [...] disease seen 04/11/2022 Recurrence - Fourth recurrence, [place] resistant - CT 04/11/2022 with increase in [...] - Avastin started 03/20/2023 - Ca125 7.38-7.51-6.5-6.71-6.26-6.58-6.94-6.72-6.86-8.12-9.55-11.5-11.5-10.7-9.98-10- 11.4-10.3-33.7-18.8 - CT 06/16/2023: Stable to decreased size [...] here today for cycle 21 of Dana. Held at last visit due to unresolved symptoms potentially related to admission for pancreatitis. Reports that she is no longer experiencing symptoms associated with pancreatitis and is feeling much better since her last visit. Her appetite has increased and she has been able to eat more. She does endorse increased vaginal bleeding, she often soaks through a pad per night and uses 3-4 pads per day. She denies associated dizziness or lightheadedness. 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 SocHx: 1-2 drinks/year, quit smoking 20 years ago, no drugs, retired, lives in [place]. FamHx: Father-prostate, MGma-colon. ROS: 14 pt ROS performed with pertinent positives and negatives as noted in HPI. ROS otherwise negative Objective Physical Exam: Vital Signs for this encounter: BSA: 1.81 meters squared Visit Vitals BP 110/50 (BP Location: Right arm) Pulse 104 Temp 36.8 ??C (98.2 ??F) Resp 18 Wt 73.5 kg (162 lb 0.6 oz) LMP 11/17/1981 (Approximate) SpO2 95% BMI 28.70 kg/m?? OB Status Hysterectomy Smoking Status Former BSA 1.81 m?? Physical Exam Vitals and nursing note reviewed. Constitutional: General: She is not in acute distress. Appearance: Normal appearance. She is well-developed. She is not diaphoretic. Comments: Not distressed but does not appear to feel well today HENT: Head: Normocephalic and atraumatic. Eyes: General: No scleral icterus. Conjunctiva/sclera: Conjunctivae normal. Cardiovascular: Rate and Rhythm: Tachycardia present. Pulmonary: Effort: Pulmonary effort is normal. No respiratory distress. Abdominal: General: There is no distension. Palpations: Abdomen is soft. Genitourinary: Comments: Declines pelvic exam Musculoskeletal: General: No signs of injury. Skin: [...] Status: Asymptomatic PS= 0 Results: CBC WBC 9.09 Hgb 9.9 PLT 187 HCT 31.3 Lab Results Component Value Date NEUTROABS 7.81 (H) 07/01/2024 BASIC METABOLIC PANEL Na 137 Cl 101 BUN 30 Gluc 168 K 4.5 Co2 24 Creat 1.43 LIVER FUNCTION TESTING Tot Prot 6.6 AST 28 Tot bili 0.4 ALT 9 Alkphos 70 Ca 9.0 Mg 1.9 Phos 3.7 === 05/17/24 === [...] by radiation for additional recurrence - Now [place] resistant - Started Daan/oral Cytoxan, held Dana after cycle 4 due to Chest pain - CT after 4 cycles showed interval resolution of vaginal mass and no further disease. - At visit 08/2022: Patient had additional CP episode and heart cath subsequently performed. No severe disease noted and cutter hot knife reports ok to continue Dana. However, also [...] to improved disease in most areas. - Held cycle 21 of Dana at last visit due to ongoing epigastric pain after admission for pancreatitis. - Today patient feels much improved. She denies pain, has an appetite and has been eating more. - Lipase within normal limits on 06/10 - Proceed with cycle 21 of Dana, continue to hold oral Cytoxan Problem 2: Encounter for chemotherapy Assessment and plan 2: - Proceed with cycle 21 of Bevacizumab 15 mg/kg today. Plan q 21 cycles until intolerance or [...] with recurrence of mass at cuff - Bleeding has worsened while holding Dana, indicating likely worsening disease. Declines pelvic exam today. If continues to worsen could consider rad onc consult to discuss possible palliative repeatradiation for hemostasis Problem 4: History of left breast cancer [...] cards at - Seen by cardiology at [facility] and acute workup negative but diagnostic cath [...] April 2023 - ED workup negative for SC - No further episodes since fall 2022 [...] related to Cytoxan. - Held again per AUTO SERVICE ADVISOR with cycle 17. Resumed for cycle 18. Have been largely normal LFT's since until the pancreatitis episode - Check labs today. Holding cytoxan for now Problem 9: History of cervical cancer Assessment and plan 9: - Distant history, halfway survivor. Problem 10: Recent pancreatitis Assessment and plan 10: - Admitted 04/2024 for this with IM service. - Still with epigastric pain and nausea - Plan to check lipase and CMP. Will hydrate in chemo room - Do not have evidence on MRCP that cancer related obstruction is the cause of this. - Held chemo for another cycle until she feels better. - Now symptoms largely resolved. Plan to resume Dana and monitor closely for recurrence. Problem 11: CEZAR Assessment and plan 11: - Creatinine bumped to 1.43 today from baseline 0.67, noted to be steadily increasing over the pastmonth - Plan for pre-treatment with 1L fluid prior to chemo today - f/u labs in one week Summary of time spent in team based care today includes the following activities performed by myself: review of prior documentation in preparation for visit, review of labs and any other test results, obtaining and reviewing medical history, appropriate focused physical exam, discussion of exam and/or test results, discussion of plan of care, lab orders, phlebotomy, chemo related decision making, Patient care staffed with Dr. Hutchins. Anum Ballesteros MD PGY-2 Obstetrics & Gynecology [phone] Cosigned by Penelope Carmona MD at 07/01/2024 4:34 PM EST Associated attestation - Penelope Carmona MD - 07/01/2024 4:34 PM EST I saw and evaluated the patient with the resident/fellow. I discussed the case with the resident/fellow and agree with the findings and plan as documented. * Progress Notes - Serena Xiong, PharmD - 07/01/2024 9:00 AM EST Pharmacy Hematology/Oncology Treatment Plan Note Daniela John is a 78 y.o. 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 Cancer Staging Carcinoma of fallopian tube (CMS/HCC) Staging form: Ovary, Fallopian Tube, and Primary Peritoneal Carcinoma, AJCC 8th Edition - Pathologic stage from 03/15/2018: FIGO Stage IIA, calculated as Stage Unknown (pT2a, pNX, cM0) - Signed by Penelope Carmona MD on 03/31/2021 Malignant neoplasm of left breast in female, estrogen receptor positive (CMS/HCC) Staging form: Breast, AJCC 8th Edition - Pathologic stage from 05/28/2001: pT1c, pN0, cM0, G2, ER+, WI+, HER2: Unknown - Signed by Cara Greene MD on 06/19/2021 - Pathologic stage from 10/05/2016: Stage Unknown (rpT1c, pNX, cM0, G2, ER+, WI+, HER2-) - Signed by Cara Greene MD on 06/19/2021 Study Patient: No Treatment Protocol: Bevacizumab IV every 21 days + continuous PO cytoxan Treatment Plan reviewed for: [x] Follow-Up Clinical Review Cycle 21 Day 1 [x] Follow-Up Clinical Review for Continuous Oral Therapy Interval History: Outside labs (in chart review, under media- labs taken 04/24/24) were reviewed and are appropriate. Cytoxan refills have been sent. Continue with treatment. Will add 500 ml NS bolus with today's infusion for bump in Scr. Dosing Wt: 84 kg Today's Wt: Wt Readings from Last 1 Encounters: 07/01/24 73.1 kg (161 lb 2.5 oz) Dosing Ht: 160 cm Dosing BSA: 1.88 m2 Recent Labs: Lab Results Component Value Date WBC 9.09 07/01/2024 HGB 9.9 (L) 07/01/2024 HCT 31.3 (L) 07/01/2024 MCV 108 (H) 07/01/2024 PLT 187 07/01/2024 Lab Results Component Value Date GLUCOSE 168 (H) 07/01/2024 CALCIUM 9.0 07/01/2024 NA 137 07/01/2024 K 4.5 07/01/2024 CO2 24 07/01/2024 CL 101 07/01/2024 BUN 30 (H) 07/01/2024 CREATININE 1.43 (H) 07/01/2024 Lab Results Component Value Date ALT 9 (L) 07/01/2024 AST 28 07/01/2024 GGT 451 (H) 05/17/2024 ALKPHOS 70 07/01/2024 BILITOT 0.4 07/01/2024 Lab Results Component Value Date NEUTROABS 7.81 (H) 07/01/2024 Lab Results Component Value Date MG 1.9 05/23/2024 No results found for: TSH Lab Results Component Value Date URINEPRO 100 (A) 05/18/2024 Vitals: Vitals: 07/01/24 0930 BP: 110/50 Pulse: 104 Resp: 18 Temp: 36.8 ??C (98.2 ??F) SpO2: 95% Other Relevant Monitoring: None Treatment Plan: Cyclophosphamide 50 mg daily Bevacizumab 15 mg/kg (1200 mg) IV D1 Every 21 days + Denosumab q 6 months (LD 01/15/24, next due 06/2024) [x] No dose adjustments made Current Treatment Plan History: Oral Cyclophosphamide 50 mg daily (08/31/22 - present) - Held 01/15/24 for transaminitis - resumed late December d/t low suspicion for chemo induced toxicity - held 02/25 for transaminitis - resumed late February Bevacizumab Cycle 1: 03/20/23 Cycle 2: 04/10/23 Cycle 3: 05/08/23 Cycle 4: 05/29/23 Cycle 5: 06/19/23 Cycle 6: 07/10/23 Cycle 7: 08/02/23 Cycle 8: 08/23/23 Cycle 9: 09/13/23 Cycle 10: 10/04/23 Cycle 11: 10/25/23 Cycle 12: 11/15/23 Cycle 13: 12/06/23 Cycle 14: 12/27/23 Cycle 15: 01/15/24 Cycle 16: 02/05/24 Cycle 17: 02/26/24 Cycle 18: 03/18/24 Cycle 19: 04/08/24 Cycle 20: 04/29/24 Cycle 21: 07/01/24 (delayed d/t admission for pancreatitis) Prior Chemotherapy History: hormone therapy for prior breast cancer carboplatin/paclitaxel Cycle 1: 04/11/18 Cycle 2: 05/02/18 Cycle 3: 05/23/18 Cycle 4: 08/01/18 Cycle 5: 08/22/18 Cycle 6: 09/12/18 Carboplatin q21d #1: 05/06/19 #2: 06/03/19 #3: 06/24/19 #4: 07/15/19 #5: 08/05/19 #6: 08/26/19 Olaparib continuous oral therapy 09/2019 - 01/2020 (dose reduced and then d/c'd d/t fatigue/anemia Carboplatin #1: 1/5/22 - 13th lifetime dose #2: 08/27/21 #3: 09/15/21 #4: 10/06/21 #5: 10/27/21 - 17th lifetime dose carboplatin #6: 11/17/21 Bevacizumab/oral Cyclophosphamide #1: 04/25/22 #2: 05/16/22 #3: 06/06/22 #4: 07/20/22 #5: 08/10/22 Assessment/Plan: Cytoxan Rx prescribed to: [facility] Refills will be due: 06/2024 Patient will return to clinic in 3 weeks. Will follow-up at that time. Pharmacist Attestation: Serena Xiong, PharmD, [facility] Hematology/Oncology Clinical Pharmacist documented in this encounter Plan of Treatment Upcoming Encounters Date Type Department Care Team (Late st Contact Info) Description 08/05/2024 8:00 AM EST Office Visit [facility] Gynecology [address] [facility] [address] [place] [address] Penelope Carmona MD [address] [facility] [address] [facility] [address] [place] [address] 08/05/2024 9:30 AM EST Appointment [facility] [address] [place] [phone] 02/26/2025 9:30 AM EDT Appointment [facility] [address] [facility] [address] [place] [address] 02/26/2025 10:30 AM EDT Office Visit [facility] Breast Care Center [address] [facility] [place] [address] Berenice Resendez, AUTO SERVICE ADVISOR [address] [facility] [address] [place] [address] documented as of this encounter Procedures Procedure Name Priority Date/Time Associated Diagnosis Comments URINALYSIS MICROSCOPIC FOR UA REFLEX Routine 07/01/2024 [...] (CMS/HCC) documented in this encounter Results * Urinalysis Microscopic Examination (07/01/2024 10:16 AM EST) Urine Urine specimen obtained by clean catch procedure / Unknown Non-blood Collection / Unknown 07/01/2024 10:16 AM EST 07/01/2024 10:48 AM EST us Penelope Dodson MD LAB URINE ORDERABLES Final Result [facility] [address] [place] [address] * (ABNORMAL) Urinalysis with reflex microscopic (Culture NOT Included) (07/01/2024 10:16 AM EST) Color, Urine Yellow LAB URINALYSIS - AUTOMATED METHOD 07/01/2024 11:11 AM EST [facility] Clarity, Urine Cloudy LAB URINALYSIS - AUTOMATED METHOD 07/01/2024 11:11 AM EST [facility] Spec [place], Urine 1.018 1.005 - 1.030 LAB URINALYSIS - AUTOMATED METHOD 07/01/2024 11:11 AM EST [facility] pH, Urine 5.5 4.5 to 8 LAB URINALYSIS - AUTOMATED METHOD 07/01/2024 11:11 AM EST [facility] Protein, Urine >=300(A) Negative mg/dL LAB URINALYSIS - AUTOMATED METHOD 07/01/2024 11:11 AM [facility] Glucose, Urine Negative Negative mg/dL LAB URINALYSIS - AUTOMATED METHOD 07/01/2024 11:11 AM [facility] Ketones, Urine Trace(A) Negative mg/dL LAB URINALYSIS - AUTOMATED METHOD 07/01/2024 11:11 AM [facility] Blood, Urine Large(A) Negative LAB URINALYSIS - AUTOMATED METHOD 07/01/2024 11:11 AM [facility] Bilirubin, Urine Negative Negative LAB URINALYSIS - AUTOMATED METHOD 07/01/2024 11:11 AM [facility] Urobilinogen, Urine 1.0 0.2 to 1.0 mg/dL LAB URINALYSIS - AUTOMATED METHOD 07/01/2024 11:11 AM [facility] Leukocytes, Urine Moderate(A) Negative LAB URINALYSIS - AUTOMATED METHOD 07/01/2024 11:11 AM [facility] Nitrite, Urine Negative Negative LAB URINALYSIS - AUTOMATED METHOD 07/01/2024 11:11 AM [facility] RBC, Urine >50(A) 0 to 3 /HPF LAB URINALYSIS - AUTOMATED METHOD 07/01/2024 11:11 AM [facility] WBC, Urine >50(A) 0 to 5 /HPF LAB URINALYSIS - AUTOMATED METHOD 07/01/2024 11:11 AM [facility] Squamous Epithelial Cells 0 - 2 0 to 5 /HPF LAB URINALYSIS - AUTOMATED METHOD 07/01/2024 11:11 AM [facility] Hyaline Casts 11 - 20(A) 0 to 5 /LPF LAB URINALYSIS - AUTOMATED METHOD 07/01/2024 11:11 AM [facility] Bacteria, Urine Negative Negative LAB URINALYSIS - AUTOMATED METHOD 07/01/2024 11:11 AM [facility] Urine Urine specimen obtained by clean catch procedure / Unknown Non-blood Collection / Unknown 07/01/2024 10:16 AM EST 07/01/2024 10:48 AM EST us Penelope Dodson MD LAB URINE ORDERABLES Final Result [facility] [address] [place] [address] * CA 125 (07/01/2024 10:09 AM EST) CA 125 18.80 <=38.00 U/mL 07/01/2024 10:58 AM EST [facility] Blood Venous blood specimen / Unknown Venipuncture / Unknown 07/01/2024 10:09 AM EST 07/01/2024 10:20 AM EST Narrative [facility] - 07/01/2024 10:58 AM EST Performed by Stephie electrochemiluminescent immunoassay. Results obtained with different test methods or kits cannot be used interchangeably. Penelope Dodson MD LAB BLOOD ORDERABLES Final Result Performing Organization Address [facility] Co de Phone Number [facility] [address] [place] [address] * (ABNORMAL) Comprehensive metabolic panel (07/01/2024 10:09 AM EST) Glucose, Plasma 168(H) 74 - 99 mg/dL 07/01/2024 10:47 AM EST [facility] BUN, Plasma 30(H) 8 - 23 mg/dL 07/01/2024 10:47 AM EST [facility] Creatinine, Plasma 1.43(H) 0.60 - 1.10 mg/dL 07/01/2024 10:47 AM EST [facility] BUN/Creatinine Ratio 21 07/01/2024 10:47 AM EST [facility] Sodium, Plasma 137 136 - 145 mmol/L 07/01/2024 10:47 AM EST [facility] Potassium, Plasma 4.5 3.6 - 4.9 mmol/L 07/01/2024 10:47 AM EST [facility] Chloride, Plasma 101 97 - 107 mmol/L 07/01/2024 10:47 AM EST [facility] CO2, Plasma 24 22 - 29 mmol/L 07/01/2024 10:47 AM EST [facility] Anion Gap 12 6 - 16 mmol/L 07/01/2024 10:47 AM EST [facility] Total Calcium, Plasma 9.0 8.9 - 10.2 mg/dL 07/01/2024 10:47 AM EST [facility] Total Protein 6.6 6.3 - 7.9 g/dL 07/01/2024 10:47 AM EST [facility] Albumin, Plasma 3.2(L) 3.5 - 5.2 g/dL 07/01/2024 10:47 AM EST [facility] AST, Plasma 28 10 - 35 U/L 07/01/2024 10:47 AM EST [facility] ALT, Plasma 9(L) 10 - 35 U/L 07/01/2024 10:47 AM EST [facility] Alkaline Phosphatase, Plasma 70 46 - 142 U/L 07/01/2024 10:47 AM EST [facility] Total Bilirubin, Plasma 0.4 0.2 - 1.1 mg/dL 07/01/2024 10:47 AM EST [facility] eGFRcr 37.6 mL/min/1.7 3m*2 07/01/2024 10:47 AM EST [facility] Comment:Reported eGFRcr in m L/min/1.73m2 is based the CKD-EPI 2020 equation that does not use a race coefficient. Blood Blood sample taken from central line / Unknown (Port) Long-term Catheter / Unknown 07/01/2024 10:09 AM EST 07/01/2024 10:18 AM EST Penelope Dodson MD LAB BLOOD ORDERABLES Final Result [facility] [address] [place] [address] * (ABNORMAL) CBC and Differential (07/01/2024 10:09 AM EST) WBC Count 9.09 3.70 - 10.30 10*3/uL LAB HEMATOLOGY METHOD 07/01/2024 10:43 AM EST [facility] RBC Count 2.91(L) 3.90 - 5.20 10*6/uL LAB HEMATOLOGY METHOD 07/01/2024 10:43 AM EST [facility] HGB 9.9(L) 11.2 - 15.7 g/dL LAB HEMATOLOGY METHOD 07/01/2024 10:43 AM [facility] HCT 31.3(L) 34.0 - 45.0 % LAB HEMATOLOGY METHOD 07/01/2024 10:43 AM [facility] Platelet Count 187 155 - 369 10*3/uL LAB HEMATOLOGY METHOD 07/01/2024 10:43 AM [facility] MCV 108(H) 79 - 98 fL LAB HEMATOLOGY METHOD 07/01/2024 10:43 AM [facility] MCH 34.0(H) 26.0 - 32.0 pg LAB HEMATOLOGY METHOD 07/01/2024 10:43 AM [facility] MCHC 31.6 30.7 - 35.5 g/dL LAB HEMATOLOGY METHOD 07/01/2024 10:43 AM [facility] RDW 16.4(H) 11.5 - 14.5 % LAB HEMATOLOGY METHOD 07/01/2024 10:43 AM [facility] MPV 9.2 8.8 - 12.5 fL LAB HEMATOLOGY METHOD 07/01/2024 10:43 AM [facility] nRBC 0.0 <=0.0 per 100 WBCs LAB HEMATOLOGY METHOD 07/01/2024 10:43 AM [facility] Differential Type Automated LAB HEMATOLOGY METHOD 07/01/2024 10:43 AM [facility] Neutrophils % 86 % LAB HEMATOLOGY METHOD 07/01/2024 10:43 AM [facility] Lymphocytes % 5 % LAB HEMATOLOGY METHOD 07/01/2024 10:43 AM [facility] Monocytes % 5 % LAB HEMATOLOGY METHOD 07/01/2024 10:43 AM [facility] Eosinophils % 3 % LAB HEMATOLOGY METHOD 07/01/2024 10:43 AM [facility] Basophils % 1 % LAB HEMATOLOGY METHOD 07/01/2024 10:43 AM [facility] Immature Granulocytes % 0 % LAB HEMATOLOGY METHOD 07/01/2024 10:43 AM [facility] Neutrophils Absolute 7.81(H) 1.60 - 6.10 10*3/uL LAB HEMATOLOGY METHOD 07/01/2024 10:43 AM [facility] Lymphocytes Absolute 0.45(L) 1.20 - 3.90 10*3/uL LAB HEMATOLOGY METHOD 07/01/2024 10:43 AM [facility] Monocytes Absolute 0.47 0.30 - 0.90 10*3/uL LAB HEMATOLOGY METHOD 07/01/2024 10:43 AM EST [facility] Eosinophils Absolute 0.26 0.00 - 0.50 10*3/uL LAB HEMATOLOGY METHOD 07/01/2024 10:43 AM EST [facility] Basophils Absolute 0.06 0.00 - 0.10 10*3/uL LAB HEMATOLOGY METHOD 07/01/2024 10:43 AM EST [facility] Immature Granulocytes Absolute 0.04 0.00 - 0.06 10*3/uL LAB HEMATOLOGY METHOD 07/01/2024 10:43 AM EST [facility] Blood Blood sample taken from central line / Unknown (Port) Long-term Catheter / Unknown 07/01/2024 10:09 AM EST 07/01/2024 10:38 AM EST Narrative [facility] - 07/01/2024 10:43 AM EST Therapeutic decision making should be based on absolute values, rather than percentages. Penelope Dodson MD LAB BLOOD ORDERABLES Final Result [facility] [address] [place] [address] documented in this encounter Visit Diagnoses Diagnosis Carcinoma of fallopian tube, unspecified laterality (CMS/HCC)- Primary Encounter for antineoplastic chemotherapy Vaginal bleeding Other specified noninflammatory disorder of vagina H/O acute pancreatitis CEZAR (acute kidney injury) (CMS/HCC) documented in this encounter Additional Health Concerns Assessment Noted Time PHQ-9 Depression Total Score: 0 06/10/20 24 2:41 PM EST A fall risk assessment has been complete d for the patient 07/01/2024 10:24 AM EST A Body Mass Index follow-up plan has been documented for the patient 05/23/2024 1:34 PM EDT documented as of this encounter Care Teams Mixologist Relationship Specialty Start Date End Date Flaquita Dorsey DO [address] [place] [address] PCP - General 12/14/21 Aliyah Valencia MD [address] [place] [address] Referring Physician 03/10/21 Conrado Iqbal MD [address] [place] [address] Service Attending Cardiology 08/19/22 documented as of this encounter
--- OUTSIDE RECORDS SUMMARY | 2024-07-10 11:51 | XMS_ITS ---
Author Organization [facility] Address [address] [place] [address] Care Team Providers Care Electric Meter Repairer Name Role Phone Aliyah Valencia MD Unavailable Flaquita Dorsey DO Primary Care Provider [phone] Conrado Iqbal MD Unavailable Active Problems Problem Noted Date Diagnosed Date Vaginal bleeding 03/14/2023 Osteopenia 11/02/2022 History of aromatase inhibitor therapy 3 Obesity (BMI 30-39.9) 04/11/2022 Malignant neoplasm of left b reast in female, estrogen receptor positive 12/09/2020 Cancer Staging:Pathologic stage from 05/28/2001: pT1c, pN0, cM0, G2, ER+, NE+, HER2: Unknown - Signed by Cara Greene MD on 06/19/2021 Pathologic stage from 10/05/2016:Stage Unknown(rpT1c, pNX, cM0, G2, ER+, NE+, HER2-) - Signed by Cara Greene MD [...] Malignant neoplasm of cervix uteri, unspecified Neuropathy Current Oncology Plans (HEM/ONC) DENOSUMAB (PROLIA)* Plan Start Date:01/09/2023 Plan Provider:Ely Oseguera APRN Linked Problems Malignant neoplasm of left b reast in female, estrogen receptor positive, unspecified site of breast (CMS/HCC)Osteopenia, unspecified locationHistory of aromatase inhibitor therapy Treatment Medications No medications scheduled. Bevacizumab + PO Continuous Cytoxan Every 21 Days* Plan Start Date:03/19/2023 Plan Provider:Penelope Carmona MD Linked Problems Carcinoma of fallopian tube, unspecified laterality (CMS/HCC) Treatment Medications Current Day (Day 1 , Cycle 22 - Planned for 08/05/2024) bevacizumab (Avastin)bevaciz umab (Avastin) chemo IVPB bevacizumab (Avastin) 1,200 mg in sodium chloride 0.9 % 100 mL chemo IVPB IV Fluid NO Electrolytes* Plan Start Date:06/10/2024 Plan Provider:Ely Oseguera APRN Linked Problems Carcinoma of fallopian tube, unspecified laterality (CMS/HCC) Treatment Medications No medications scheduled. Past Plans Infusion Treatment 1 Plan Name Start Date Discontinue Date Treatment Medications Discontinue Reason Plan Provider (HEM/ONC) DENOSUMAB (PROLIA) 12/11/2020 11/02/2022 No medications scheduled. Other (See Comments) Cara Greene MD Oncology Treatment Plan Name Start Date Discontinue Date Treatment Medications Discontinue Reason Plan Provider Cycles Bevacizumab Every 21 Days 2 08/31/2022 bevacizumab-bv zr (Zirabev)bevac izumab-bvzr (Zirabev) chemo IVPB Other (See Comments) Penelope Carmona MD 5 of 12 cycles started CARBOplatin Every 21 Days 08/04/2021 01/24/2022 CARBOplatin (Paraplatin) chemo IVPB (by AUC: GOG-COCKCROFT GAULT) Therapy Complete Penelope Carmona MD 6 of 6 cycles started Radiation Treatments * No radiation treatments are documented for this patient in [facility]. Treatments may have been administered in another system. Resolved Problems Problem Noted Date Diagnosed Date Resolved Date Other acute pancreatitis wit hout infection or necrosis 05/17/2024 05/23/2024 Transaminitis 05/17/2024 05/23/2024 Syncopal episodes 05/17/2024 05/23/2024
--- OUTSIDE RECORDS SUMMARY | 2024-07-10 11:52 | XMS_ITS | Encounter Summary ---
Author Organization [facility] Address [address] [place] [address] Care Team Providers Care Breakdown Mill Operator Name Role Phone Aliyah Valencia MD Unavailable [phone] Flaquita Dorsey DO Primary Care Provider [phone]- [phone] Conrado Iqbal MD Unavailable Encounter Details Date Type Department Care Team (Latest Contact Info) Description 05/18/2024 Travel Social History Tobacco Use Types Packs/Day Years Used Date Smoking Tobacco: Former Cigarettes 0.5 22 1 976 - 1998 Passive Smoke Exposure: Past Smokeless Tobacco: Former Alcohol Use Standard Drinks/Week Comments Not Currently 0 (1 standard drink = 0.6 oz pur e alcohol) PHQ-2 Answer Date Recorded Patient Health Questionnaire-2 Score 0 04/29/2024 PHQ-2A Answer Date Recorded Patient Health Questionnaire-2 [...] AM EST Office Visit [facility] [address] [address] [address] [place] [address] Penelope Carmona MD [address] [facility] [address] [place] [address] 08/05/2024 9:30 AM EST Appointment [facility] [address] [place] [address] 02/26/2025 9:30 AM EDT Appointment [facility] Radha Lai [facility] [address] [place] [address] 02/26/2025 10:30 AM EDT Office Visit [facility] [address] [facility]nd [place] [address] Berenice Resendez, LEAD LOADER [address] [facility] [address]ai [facility] [address] [place] [address] documented as of this encounter Visit Diagnoses Not on filedocumented in this encounter Additional Health Concerns Assessment Noted Time A fall risk assessment has been complete d for the patient 04/29/2024 1:49 PM EDT A Body Mass Index follow-up plan has been documented for the patient 05/23/2024 1:34 PM EDT documented as of this encounter Care Teams Breakdown Mill Operator Relationship Specialty Start Date End Date Flaquita Dorsey DO [address] [place] [address] PCP - General 12/14/21 Aliyah Valencia MD [address] [place] [place] [address] Referring Physician 03/10/21 Conrado Iqbal MD [address] [place] [address] Service Attending Cardiology 08/19/22 documented as of this encounter
--- OUTSIDE RECORDS SUMMARY | 2024-07-10 11:52 | XMS_ITS | Encounter Summary ---
Author Organization [facility] Address [address] [place] [address] Care Team Providers Care Director Of Laboratory Operations Name Role Phone Aliyah Valencia MD Unavailable [phone] Flaquita Dorsey DO Primary Care Provider [phone]- [phone] Conrado Iqbal MD Unavailable Encounter Details Date Type Department Care Team (Latest Contact Info) Description 05/19/2024 Travel Social History Tobacco Use Types Packs/Day [...] place to sleep or slept in a fdc (including now)? No 05/20/2024 Utilities Answer Date [...] Upcoming Encounters Date Type Department Care Team ([facility] st Contact Info) Description 08/05/2024 8:00 AM EST Office Visit [facility] Gynecology [address] [address] [address] [place] [address] Penelope Carmona MD [address] [facility] [address]ai [facility] [place] [address] [place] [address] 08/05/2024 9:30 AM EST Appointment [facility] Infusion Clinic [address] [place] [address] 02/26/2025 9:30 AM EDT Appointment [facility] Breast Care Center [facility] [address] [address] [address] [facility] [address] [place] [address] 02/26/2025 10:30 AM EDT Office Visit [facility] Center [address] [facility] [place] [address] Berenice Resendez D, LEGISLATORS [address] [facility] [address] [place] [address] documented as of this encounter Visit Diagnoses Not on filedocumented in this encounter Additional Health Concerns Assessment Noted Time A fall risk assessment has been complete d for the patient 04/29/2024 1:49 PM EDT A Body Mass Index follow-up plan has been documented for the patient 05/23/2024 1:34 PM EDT documented as of this encounter Care Teams Director Of Laboratory Operations Relationship Specialty Start Date End Date Flaquita Dorsey DO [address] [place] [address] PCP - General 12/14/21 Aliyah Valencia MD [address] [place] [place] [address] Referring Physician 03/10/21 Conrado Iqbal MD [address] [place] [address] Service Attending Cardiology 08/19/22 documented as of this encounter
--- OUTSIDE RECORDS SUMMARY | 2024-07-10 11:52 | XMS_ITS | Encounter Summary ---
Author Organization [facility] Address [address] [place] [address] Care Team Providers Care Test Desk Operator Name Role Phone Aliyah Valencia MD Unavailable [phone] Flaquita Dorsey DO Primary Care Provider [phone] Conrado Iqbal MD Unavailable Encounter Details Date Type Department Care Team (Latest Contact Info) Description 05/20/2024 Travel Social History Tobacco Use Types Packs/Day [...] place to sleep or slept in a half-way (including now)? No 05/20/2024 Utilities Answer Date [...] Upcoming Encounters Date Type Department Care Team ([facility] st Contact Info) Description 08/05/2024 8:00 AM EST Office Visit [facility] Gynecology [address] [address] [address] [place] [address] Penelope Carmona MD [address] [facility] [address] [facility] [address] [place] [address] 08/05/2024 9:30 AM EST Appointment [facility] Infusion Clinic 1 [address] [place] [address] 02/26/2025 9:30 AM EDT Appointment [facility] Breast Care Center [facility] [address] [address] [address] [facility] [address] [place] [address] 02/26/2025 10:30 AM EDT Office Visit [facility] Center [address] [place] [address] Berenice Resendez D, CIVIL TRANSPORTATION ENGINEER [address] [place] [address] documented as of this encounter Visit Diagnoses Not on filedocumented in this encounter Additional Health Concerns Assessment Noted Time A fall risk assessment has been complete d for the patient 04/29/2024 1:49 PM EDT A Body Mass Index follow-up plan has been documented for the patient 05/23/2024 1:34 PM EDT documented as of this encounter Care Teams Test Desk Operator Relationship Specialty Start Date End Date Flaquita Dorsey DO [address] [place] [address] PCP - General 12/14/21 Aliyah Valencia MD [address] [place] [place] [address] Referring Physician 03/10/21 Conrado Iqbal MD [address] [place] [address] Service Attending Cardiology 08/19/22 documented as of this encounter
--- OUTSIDE RECORDS SUMMARY | 2024-07-10 11:52 | XMS_ITS | Encounter Summary ---
Author Organization [facility] Address [address] [id number] Care Team Providers Care Political Science Faculty Member Name Role Phone Aliyah Valencia MD Unavailable [phone] Flaquita Dorsey DO Primary Care Provider [phone]- [phone] Conrado Iqbal MD Unavailable Encounter Details Date Type Department Care Team (Late st Contact Info) Description 05/17/2024 Orders Only External Location [address] [place] [address] Ray Gomez MD [address] [place] [address] Social History Tobacco Use Types Packs/Day Years [...] place to sleep or slept in a fpc (including now)? No 05/20/2024 Utilities Answer Date [...] Description 08/05/2024 8:00 AM EST Office Visit [facility] Gynecology [address] [place] [address] Penelope Carmona MD [address] [place] [address] 08/05/2024 9:30 AM EST Appointment [facility] 1 [address] [place] [address] 02/26/2025 9:30 AM EDT Appointment [facility] [address] [place] [address] 02/26/2025 10:30 AM EDT Office Visit [facility] Breast Care Center [address] [facility] [place] [address] Berenice Resendez D, VOCATIONAL EDUCATION PROFESSIONAL [address] [facility] [address] [place] [address] documented as of this encounter Procedures Procedure Name Priority Date/Time Associated Diagnosis Comments XR OUTSIDE IMAGES 05/17/2024 12:51 PM EDT documented in this encounter Results * XR OUTSIDE IMAGES (05/17/2024 12:51 PM EDT) Anatomical Region Laterality Modality Radiographic Leana ging 05/17/2024 12:5 1 PM EDT us Ray Gomez MD IMG XR PROCEDURES Final Resul t documented in this encounter Visit Diagnoses Not on filedocumented in this encounter Additional Health Concerns Infection Onset Date Last Indicated Resolved Time Respiratory Rule-Out 05/17/2024 05/17/2024 024 11:59 PM EDT Assessment Noted Time A fall risk assessment has been complete d for the patient 04/29/2024 1:49 PM EDT A Body Mass Index follow-up plan has been documented for the patient 05/23/2024 1:34 PM EDT documented as of this encounter Care Teams Political Science Faculty Member Relationship Specialty Start Date End Date Flaquita Dorsey DO [address] [place] [address] PCP - General 12/14/21 Aliyah Valencia MD [address] [place] [address] Referring Physician 03/10/21 Conrado Iqbal MD [address] [place] [address] Service Attending Cardiology 08/19/22 documented as of this encounter
--- OUTSIDE RECORDS SUMMARY | 2024-07-10 11:52 | XMS_ITS | Encounter Summary ---
Author Organization Healthcare Address [address] [place] [address] Care Team Providers Care Director Information Security Name Role Phone Aliyah Valencia MD Unavailable [phone] Flaquita Dorsey DO Primary Care Provider [phone] Conrado Iqbal MD Unavailable Reason for Visit * Auth/Cert (Routine) Specialty Diagnoses / Procedures Referred By Contac t Referred To Contact Diagnoses Other acute pancreatitis without infection or necrosis abd pain; pancreatitis; poss mets to liver Bob Zuleta MD [address] [place] [address] Phone: tel: fax: [facility] [address] [place] [address] Phone: tel: Referral ID Status Reason Start Date Expiration Date Visits Re quested Visits Authorized [id number] 1 1 Encounter Details Date Type Department Care Team (Latest Contact Info) Description 05/17/2024 7:33 PM EDT - 05/23/2024 4:06 PM EDT Hospital Encounter [facility] [address] [place] [address] Ray Gomez MD [address] [place] [address] Bob Zuleta MD [address] [place] [address] Rosa Chisholm MD [address] [place] [address] Lizzeth Cancino MD [address] [place] [address] Discharge Disposition: Rehab Facility Social History Tobacco Use Types Packs/Day Years [...] in a custodial (including now)? No 05/20/2024 Utilities Answer Date Recorded In the past 12 months has e [email or web address], gas, oil, or water company threatened to [...] Sign Reading Time Taken Comments Blood Pressure 124/82 05/23/2024 7:36 AM EDT Pulse 85 05/23/2024 7:36 AM EDT Temperature 36.3 ??C (97.4 ??F) 05/23/2024 7:36 AM ED T Respiratory Rate 16 05/23/2024 7:36 AM EDT Oxygen Saturation 96% 05/23/2024 7:36 AM EDT Inhaled Oxygen Concentration - - Weight 82.2 kg (181 lb 3.5 oz) 05/21/2024 6:00 A M EDT Height 160 cm (5' 3 ) 05/17/2024 7:41 PM EDT Body Mass Index 32.1 05/17/2024 7:41 PM EDT documented in this encounter Medications at Time of Discharge aspirin 81 MG chewable tablet Chew 1 tablet (81 mg) 1 (one) time each day. ergocalciferol (Vitamin D-2) 1.25 MG (72601 UT) capsule Take 1 capsule (50,000 Units) [...] if needed for nausea or vomiting. 05/23/2024 potassium chloride ER (Micro-K) 10 MEQ ER capsule Take 1 capsule (10 mEq) by mouth 2 (two) times a day. 12/10/2021 Synthroid 75 MCG tablet Take 1 tablet (75 mcg) by mouth 1 (one) time each day in the morning. 02/16/2024 oxyCODONE (Roxicodone) 10 MG immediate release tablet Take 1 tablet (10 mg) by mouth every 4 (four) hours if needed for moderate pain or severe pain (first line) for up to 3 days. 05/23/2024 05/26/20 polyethylene glycol (Miralax) 17 g packet Take 17 g by mouth 1 (one) time each day. 05/23/2024 06/22/20 senna (Senokot) 8.6 MG tablet Take 1 tablet (8.6 mg) by mouth every night. 05/23/2024 06/22/20 documented as of this encounter Miscellaneous Notes * Query Clarification Note - Lizzeth Cancino MD - 05/23/2024 2:32 PM EDT Restrospective CEZAR resolved. 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 #Acute on Chronic Transaminitis w/ Hyperbilirubinemia #Pancreatitis with possible choledocholithiasis - etiologies could include metastatic cancer, furosemide use, infection, autoimmune 2/2 to simvastatin - She was tolerating PO diet 3 days prior to dc. Her pain was well controlled with oral oxycodone. Instructed to stop simvastatin, and any other OTC supplements until she sees her PCP. #Hypomagnesemia #Hypophosphatemia #Hypokalemia Resolved day of discharge, no supplements prescribed Recommends to obtain labs 3 days after dc and replace as needed #Normocytic anemia Suspect anemia of inflammation with elevated ferritin. 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 #Stage IA left breast cancer currently on Anastrozole, hold during acute illness #Hypothyroidism - continue Levothyroxine 75 mcg daily #HLD - hold Statin in setting of transaminitis, lipid panel wnl #Murmur/Moderate - noted on prior ECHO from 2022, EF 53%, appears to be stable, on Furosemide 20mg daily for swelling #Neuropathy - most likely tx related 2/2 Taxol, continue Gabapentin 600 mg nightly #Carotid Stenosis?/Syncopal Episodes - no clear documentation, syncopal episodes most likely 2/2 vagal response in setting of vomiting, will avoid hypotension #History of Cervical Cancer - s/p hysterectomy Surgeries and Procedures Medication List .. aspirin 81 MG chewable tablet Chew 1 tablet (81 mg) 1 (one) time each day. ergocalciferol 1.25 MG (14708 UT) capsule Commonly known as: Vitamin D-2 Take 1 capsule (50,000 Units) by mouth 1 (one) time per week. Monday erythromycin 5 MG/GM ophthalmic ointment Commonly known as: Romycin Apply 1 Application to right eye every 8 (eight) hours. furosemide 20 MG tablet Commonly known as: Lasix Take 1 tablet (20 mg) by mouth 1 (one) time each day. gabapentin 300 MG capsule Commonly known as: Neurontin Take 2 capsules (600 mg) by mouth every night. lisinopril 5 MG tablet Take 1 tablet (5 mg) by mouth 1 (one) time each day. naloxone 4 mg/0.1 mL nasal spray Commonly known as: Narcan 1. Give 1 spray in nostril for no/slow breathing or cannot wake after opioid use 2. Call 911 3. Repeat in other nostril if symptoms continue ondansetron ODT 4 MG disintegrating tablet Commonly known as: Zofran-ODT Take 1 tablet (4 mg) by mouth every 6 (six) hours if needed for nausea or vomiting. oxyCODONE 10 MG immediate release tablet Commonly known as: Roxicodone Take 1 tablet (10 mg) by mouth every 4 (four) hours if needed for moderate pain or severe pain (first line) for up to 3 days. polyethylene glycol 17 g packet Commonly known as: Miralax Take 17 g by mouth 1 (one) time each day. potassium chloride ER 10 MEQ ER capsule Commonly known as: Micro-K Take 1 capsule (10 mEq) by mouth 2 (two) times a day. senna 8.6 MG tablet Commonly known as: Senokot Take 1 tablet (8.6 mg) by mouth every night. Synthroid 75 MCG tablet Generic drug: levothyroxine Take 1 tablet (75 mcg) by mouth 1 (one) time each day in the morning. Where to Get Your Medications Information about where to get these medications is not yet available Ask your nurse or doctor about these medications naloxone 4 mg/0.1 mL nasal spray ondansetron ODT 4 MG disintegrating tablet oxyCODONE 10 MG immediate release tablet polyethylene glycol 17 g packet senna 8.6 MG tablet Discharge Diagnosis Medical Problems Active and Resolved Hospital Problems Hospital * (Principal) RESOLVED: Other acute pancreatitis without infection or necrosis RESOLVED: Transaminitis RESOLVED: Syncopal episodes Post Discharge Instructions Outpatient Follow-Up Future Appointments Date Time Provider Department Center 06/10/2024 2:00 PM Penelope Carmona MD [facility] 06/10/2024 3:00 PM [facility] 1 INFUSION TREATMENT [id number] Kandace 02/26/2025 9:30 AM [facility] 3 [facility] Jeronimo 02/26/2025 10:30 AM Berenice Resendez, 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 Appearance: Normal appearance. She is obese. She is not ill-appearing, toxic- appearing or diaphoretic. HENT: Head: Normocephalic and atraumatic. Nose: Nose normal. No congestion or rhinorrhea. Mouth/Throat: Pharynx: Oropharynx is clear. No oropharyngeal exudate or posterior oropharyngeal erythema. Eyes: General: No scleral icterus. Right eye: No discharge. Left eye: No discharge. Extraocular Movements: Extraocular movements intact. Conjunctiva/sclera: Conjunctivae normal. Pupils: Pupils are equal, round, and reactive to light. Cardiovascular: Rate and Rhythm: Normal rate and regular rhythm. Heart sounds: Murmur (systolic) heard. No friction rub. No gallop. Pulmonary: Effort: Pulmonary effort is normal. No respiratory distress. Breath sounds: Normal breath sounds. No stridor. No wheezing, rhonchi or rales. Chest: Chest wall: No tenderness. Abdominal: General: Bowel sounds are normal. There is no distension. Palpations: Abdomen is soft. There is no mass. Tenderness: There is abdominal tenderness. There is no guarding or rebound. Hernia: No hernia is present. Musculoskeletal: General: No swelling, tenderness, deformity or signs of injury. Normal range of motion. Cervical back: Normal range of motion and neck supple. No rigidity or tenderness. Lymphadenopathy: Cervical: No cervical adenopathy. Skin: General: Skin is warm and dry. Capillary Refill: Capillary refill takes less than 2 seconds. Coloration: Skin is not jaundiced or pale. Findings: No bruising, erythema, lesion or rash. Neurological: General: No focal deficit present. Mental Status: She is alert and oriented to person, place, and time. Cranial Nerves: No cranial nerve deficit. Sensory: No sensory deficit. Motor: No weakness. Coordination: Coordination normal. Gait: Gait normal. Deep Tendon Reflexes: Reflexes normal. Psychiatric: Mood and Affect: Mood normal. Behavior: Behavior normal. Thought Content: Thought content normal. Judgment: Judgment normal. Discharge Disposition/Condition Disposition: [facility] Condition: Stable (s/sx potential problems absent or manageable) I spent >30 minutes of patient care and instruction time in preparation for this discharge. 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 #Acute on Chronic Transaminitis w/ Hyperbilirubinemia #Pancreatitis with possible choledocholithiasis - etiologies could include metastatic cancer, furosemide use, infection, autoimmune 2/2 to simvastatin - She was tolerating PO diet 3 days prior to dc. Her pain was well controlled with oral oxycodone. Instructed to stop simvastatin, and any other OTC supplements until she sees her PCP. #Hypomagnesemia #Hypophosphatemia #Hypokalemia Resolved day of discharge, no supplements prescribed Recommends to obtain labs 3 days after dc and replace as needed #Normocytic anemia Suspect anemia of inflammation with elevated ferritin. 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 #Stage IA left breast cancer currently on Anastrozole, hold during acute illness #Hypothyroidism - continue Levothyroxine 75 mcg daily #HLD - hold Statin in setting of transaminitis, lipid panel wnl #Murmur/Moderate - noted on prior ECHO from 2022, EF 53%, appears to be stable, on Furosemide 20mg daily for swelling #Neuropathy - most likely tx related 2/2 Taxol, continue Gabapentin 600 mg nightly #Carotid Stenosis?/Syncopal Episodes - no clear documentation, syncopal episodes most likely 2/2 vagal response in setting of vomiting, will avoid hypotension #History of Cervical Cancer - s/p hysterectomy * Progress Notes - Jessica Nieves - 05/23/2024 9:58 AM EDT Physical Therapy Treatment Patient Name: Muriel Chamberlain Today's Date: 05/23/2024 PT Discharge Recommendations: Acute rehab Equipment Recommended: Defer to facility Subjective Muriel reports she is doing well and is ready to go to rehab so she can get strong enough to go home. Participants in Care Family/Caregiver Present: Yes Family/Caregiver: Other (Specify) ([id number]) Presentation Oxygen Therapy: None (Room air) Lines and Tubes: Single Lumen Implantable Port Right Chest (Active) Peripheral IV Anterior;Proximal;Right Forearm (Active) Pre-Session: Sitting in chair Post-Session: Sitting in chair, Lines intact, RN notified, Call light in reach, Chair alarm Post-Session Comments: [id number] present Precautions Medical Precautions: Fall precautions Objective Pain Patient denied. Delirium Screening Carvajal Agitation Sedation Scale (RASS): Alert and calm Confusion Assessment Method-ICU (CAM-ICU/PCAM-ICU) Feature 3: Altered Level of Consciousness: Negative Therapeutic Activity (23 minutes) See tf and ambulation sections for details. Transfers Transfer Exam: Sit to stand Level of [place]: Minimum assist (75% patient's effort) (from recliner) Physical/Nonphysical Assist: Verbal Cues, Nonverbal cues (demo/gestures) (cues to push up from chair vs pull up on cane/walker with good carry over noted) Assistive Device: Walker, rolling (vs quad cane) Transfer Exam: Stand to Sit Level of Columbia: Contact guard Physical/Nonphysical Assist: Verbal Cues, Nonverbal cues (demo/gestures) (cues to reach back prior to sitting) Assistive Device: Walker, rolling (vs quad cane) Ambulation Device: Quad cane (vs RW) Assistance: Contact guard assist Distance : 15 ft x2 Ambulation Comments: Quad cane: shuffling gait with very slow nelson and LUE at high guard with RUE on quad cane, mild instability. Rolling walker: increased gait speed (vs with quad cane), improvedstability; VC to maintain COG inside JUDI of walker for safety Patient initially ambulating with quad cane, however, demonstrated increased instability while performing, therefore, attempted with rolling walker with improved gait noted with increased upper extremity support on walker. Assessment Muriel tolerated PT session fairly well and was able to ambulate short distances this date. She is primarily limited due to generalized weakness and impaired activity tolerance. She will continue to benefit from skilled PT services while in the hospital and at acute rehab upon discharge from this facility. PT Recommendations Discharge Destination: Acute rehab Discharge Equipment: Defer to facility Plan Continue per plan of care. PT Goals PT GOAL DETAILS Goal Established Date Time Frame Goal Status PT Goal 1: Pt will be IND with all bed mobility from a flat surface. 05/20/24 2 weeks PT Goal 2: Pt will perform sit to stand and bed to chair, MOD IND, with appropriate assistive device. 05/20/24 2 weeks PT Goal 3: Pt will ambulate 350 feet, MOD IND, with appropriate assistive device. 05/20/24 2 weeks PT Goal 4: Pt will be IND with HEP and agreeable to PT POC and DC recommendations. 05/20/24 2 weeks PT Goal 5: Pt will safely ascend and descend 3 standard steps to allow for safe entry and exit at home. 05/20/24 2 weeks Written by Jessica Nieves on 05/23/24 at 1:21 PM. * Progress Notes - Chapo Quiroga - 05/23/2024 9:55 AM EDT Occupational Therapy Treatment Patient Name: Muriel Chamberlain Today's Date: 05/23/2024 OT Discharge Recommendations: Acute rehab Equipment Recommended: Defer to facility Subjective Patient agreeable to OT Tx this a.m. Participants in Care Family/Caregiver Present: Yes Family/Caregiver: Adult Daughter Director Of Vital Statistics: Not Applicable Presentation Oxygen Therapy: None (Room air) O2 Delivery Method: Nasal cannula O2 Flow Rate (L/min): 2 L/min Lines and Tubes: Intravenous access, Telemetry Pre-Session: Sitting in chair, Lines intact, Chair alarm Post-Session: Sitting in chair, RN notified, Lines intact, Chair alarm, Call light in reach Precautions Medical Precautions: Fall precautions Objective Pain Patient with no c/o pain at this time. Delirium Screening Carvajal Agitation Sedation Scale (RASS): Alert and calm Confusion Assessment Method-ICU (CAM-ICU/PCAM-ICU) Feature 3: Altered Level of Consciousness: Negative Cognition Cognition Overall Cognitive Status: Within Functional Limits Arousal/Alertness: Appropriate responses to stimuli Mood/Behavior: Alert Orientation Level: Oriented X4 Single Step Commands: Consistently Multi-Step Commands: Consistently Method of Communication: Verbal Safety Judgment: Decreased awareness of need for assistance Awareness of Errors: Assistance required to identify errors made Deficit Awareness: Decreased awareness of deficits Attention Span: Appears intact Transfers Transfer Exam: Sit to stand Level of Columbia: Contact guard Physical/Nonphysical Assist: Verbal Cues Assistive Device: Walker, rolling Transfer Exam: Stand to Sit Level of Columbia: Contact guard Physical/Nonphysical Assist: Verbal Cues Assistive Device: Walker, rolling Functional Mobility Device: Rolling walker Assistance: Contact guard assist Distance : 30' Therapeutic Activity (23 minutes) Please refer to bed mobility and transfers for intervention details. Patient required verbal cueingand physical assist (hand and feet placement) for set-up, initiation, facilitation, sequencing, andoverall execution of instructed tasks. Therapeutic activity focused on functional task training in order to promote functional strengthening, maximize activity tolerance, and enhance safety awareness. Assessment Patient is an excellent candidate for acute rehab to regain independence with ADLs and functional mobility. OT Recommendations Discharge Destination: Acute rehab Discharge Equipment: Defer to facility Plan Continue OT tx plan until discharge to acute rehab setting. Goals OT GOAL DETAILS Goal Established Date Time Frame Goal Status OT Goal 1: Patient will demo mod I with grooming tasks standing EOS with RW, 4/5 trials. 05/20/24 2weeks OT Goal 2: Patient will demo mod I with toilet transfers via RW, 4/5 trials. 05/20/24 2 weeks OT Goal 3: Patient will demo mod I with LB Dressing tasks, 4/5 trials. 05/20/24 2 weeks OT Goal 4: Patient will demo mod I with all toileting tasks, 4/5 trials. 05/20/24 Written by Chapo Quiroga on 05/23/24 at 11:29 AM. * Progress Notes - Angelita Kimbrough RN - 05/23/2024 9:05 AM EDT Case Management Discharge Note Muriel Chamberlain 78 y.o. female CSN: [id number] Admission: 05/17/2024 7:33 PM Primary Problem: Other acute pancreatitis without infection or necrosis Primary Spotter Driver: Primary Caregiver: Self Assistance Available at Discharge: Availability of Care Givers (#Hours): 24 hours ([facility]) Discharge Facility/Level of Care Needs: Discharge Facility/Level of Care Needs: 62-Rehab facilty ([facility]) DME/Equipment Needed after Discharge: Equipment Currently Used at Home: none Readmission Within the Last 30 Days: Readmission Within the Last 30 Days: no previous admission in last 30 days Medicare Documentation: Medicare Second Notice?: Yes Date Second Notice Completed: 05/21/24 Time Second Notice Completed: 1439 Medicare Second Notice Recieved By: Sister/Arianne Chamberlain Follow-up: [facility] ([facility] [address] [address] Follow up Discharge Transportation: Transportation Home at Discharge: Other(Comment) (Pt is arranged to transport via van at 1445 day) Has discharge transport been arranged?: Yes What day is the transport expected?: 05/23/24 What time is the transport expected?: 1445 Follow Up Transport: Transportation Needed to Follow up Appoinments: Family/Friend will Provide Additional Comments: Discussed with multidisciplinary team, per attending physician dr. Robles pt is medically ready to d/c. RN CM reached out to [facility] liaison and was informed that pt was accepted and can transfer to on this day. Pt updated and in agreement with d/c plan. Team and RN updated. RN to call report to [facility]#[phone]. RN CM will fax d/c summary to #[phone]. Pt is arranged to transport via vanat 1445 on this day. There is no other d/c needs reported or identified at this time. RN LESLY will remain available and assist as needed. Angelita Kimbrough RN * Progress Notes - Stacey Guerra - 05/22/2024 1:03 PM EDT Case Management Adult Progress Note Muriel Chamberlain 78 y.o. female CSN: [id number] Admission: 05/17/2024 7:33 PM Primary Problem: Other acute pancreatitis without infection or necrosis Anticipated Discharge Date: 05/23/2024 Medicare Second Notice: Medicare Medicare Second Notice?: Yes Date Second Notice Completed: 05/21/24 Time Second Notice Completed: 1440 Medicare Second Notice Recieved By: Sister/Arianne Chamberlain Additional Comments: Patient being followed for admit at [facility], able to admit tomorrow pending discontinuation of zofran and pain medications per eDann with admission. CM forwarded email to provider to notify and will continue to follow. Stacey Guerra * Clinician Note - Shy Beckwith - 05/22/2024 12:46 PM EDT Occupational Therapy Attempt Patient Name: Muriel Chamberlain Today's Date: 05/22/2024 Patient was attempted to be seen by occupational therapy 05/22/2024 for OT Treatment, however patient politely declined (currently eating lunch in chair). Occupational therapy team will follow-up as schedule permits. Written by Shy Beckwith on 05/22/24 at 12:46 PM. * Progress Notes - Lizzeth Cancino MD - 05/22/2024 12:42 PM EDT Images from the original note were not included. Hospital Medicine Progress Note Subjective Sister in law at bedside. PM&R team evaluating at bedside. She had a BM this morning, reports her pain is well controlled with PO narcotics and was willing to stop her IV dilaudid. Has been eating and trying to drink her boost Objective Vitals: 05/22/24 0831 BP: 107/66 Pulse: 90 Resp: Temp: 36.3 ??C (97.4 ??F) SpO2: 94% Physical Exam Constitutional: General: She is not in acute distress. Appearance: Normal appearance. She is obese. She is not ill-appearing, toxic- appearing or diaphoretic. HENT: Head: Normocephalic and atraumatic. Nose: Nose normal. No congestion or rhinorrhea. Mouth/Throat: Pharynx: Oropharynx is clear. No oropharyngeal exudate or posterior oropharyngeal erythema. Eyes: General: No scleral icterus. Right eye: No discharge. Left eye: No discharge. Extraocular Movements: Extraocular movements intact. Conjunctiva/sclera: Conjunctivae normal. Pupils: Pupils are equal, round, and reactive to light. Cardiovascular: Rate and Rhythm: Normal rate and regular rhythm. Heart sounds: Murmur (systolic) heard. No friction rub. No gallop. Pulmonary: Effort: Pulmonary effort is normal. No respiratory distress. Breath sounds: Normal breath sounds. No stridor. No wheezing, rhonchi or rales. Chest: Chest wall: No tenderness. Abdominal: General: Bowel sounds are normal. There is no distension. Palpations: Abdomen is soft. There is no mass. Tenderness: There is abdominal tenderness. There is no guarding or rebound. Hernia: No hernia is present. Musculoskeletal: General: No swelling, tenderness, deformity or signs of injury. Normal range of motion. Cervical back: Normal range of motion and neck supple. No rigidity or tenderness. Lymphadenopathy: Cervical: No cervical adenopathy. Skin: General: Skin is warm and dry. Capillary Refill: Capillary refill takes less than 2 seconds. Coloration: Skin is not jaundiced or pale. Findings: No bruising, erythema, lesion or rash. Neurological: General: No focal deficit present. Mental Status: She is alert and oriented to person, place, and time. Cranial Nerves: No cranial nerve deficit. Sensory: No sensory deficit. Motor: No weakness. Coordination: Coordination normal. Gait: Gait normal. Deep Tendon Reflexes: Reflexes normal. Psychiatric: Mood and Affect: Mood normal. Behavior: Behavior normal. Thought Content: Thought content normal. Judgment: Judgment normal. 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 She endorsed 2 separate syncopal episodes that occurred while vomiting. #Acute on Chronic Transaminitis w/ Hyperbilirubinemia #Pancreatitis with possible choledocholithiasis - Liver ultrasound - Status post cholecystectomy. No stones in the visible portions of the common bile duct. - other etiologies could include metastatic cancer, furosemide use, infection, autoimmune 2/2 to simvastatin - simvastatin held - Lipid panel normal - pain controlled on PO oxycodone - MRCP , no cholelithiasis - Tolerating PO diet Elevated BP without a history of HTN Only on lisinopril 5 mg at home, will continue to monitor BP Will start Nifedipine if continues to be elevated. 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 #Stage IA left breast cancer currently on Anastrozole, hold during acute illness #Hypothyroidism - continue Levothyroxine 75 mcg daily #HLD - hold Statin in setting of transaminitis, lipid panel wnl #Murmur/Moderate - noted on prior ECHO from 2022, EF 53%, appears to be stable, on Furosemide 20mg daily for swelling #Neuropathy - most likely tx related 2/2 Taxol, continue Gabapentin 600 mg nightly #Carotid Stenosis?/Syncopal Episodes - no clear documentation, syncopal episodes most likely 2/2 vagal response in setting of vomiting, will avoid hypotension #History of Cervical Cancer - s/p hysterectomy # Code status - DNR/DNI Lizzeth Robles MD Heavy Line Technician Internal Medicine Pediatrics Certified Autism Teacher Epic Chat preferred * Care Plan - Hiwot Oro RN - 05/22/2024 10:47 AM EDT Problem: Adult Inpatient Plan of Care Goal: Plan of Care Review Outcome: Ongoing, Progressing Goal: Patient-Specific Goal (Individualized) Outcome: Ongoing, Progressing Goal: Absence of Hospital-Acquired Illness or Injury Outcome: Ongoing, Progressing Goal: Optimal Comfort and Wellbeing Outcome: Ongoing, Progressing Goal: Readiness for Transition of Care Outcome: Ongoing, Progressing Problem: Infection Goal: Absence of Infection Signs and Symptoms Outcome: Ongoing, Progressing * Consults - Susy Hyde APRN - 05/22/2024 9:35 AM EDTAssociated Order(s): IP CONSULT TO PHYSICAL MEDICINE REHAB PHYSICAL MEDICINE & REHABILITATION INPATIENT CONSULT NOTE Patient: Muriel Chamberlain : 1945 PCP: Flaquita Dorsey, DO at [address] / [place] [id number] Payor: MEDICARE / Plan: MEDICARE A & B / Product Type: Medicare / Date of Service: 05/22/24 cc: Other acute pancreatitis without infection or necrosis Reason for Consultation: functional evaluation History of Present Illness: Muriel Chamberlain is a 78 y.o. 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 Her hospital course has been complicated by -Transaminates status post liver ultrasound with patent hepatic vasculature, ct abdomen pelvis without with peripancreatic fat stranding/ inflammation concerning for pancreatitis, possible choledocholithiasis. Also with new small bilateral pleural effusions and bibasilar consolidations. MRCP without choledocholithiasis, interstitial pancreatitis. Improving with holding of statins, fluids, advanced to soft and bite sized diet. Position Clerk, Onc has also followed with planning to hold treatment due to pancreatitis and will follow up as outpatient -HTN, on lisinopril and lasix -electrolyte imbalances Patient seen and examined, her sister is currently at bedside. ROS, she attests to abdominal pain, which is a little bit better, attempted to eat about half her breakfast this am, complaints of abdominal pain, complaints of rash on right arm and on back with itching. Bowel movement 05/21 PMH: Past Medical History: Diagnosis Date Abnormal uterine and vaginal bleeding, unspecified Abnormal vaginal bleeding Carcinoma of fallopian tube (CMS/HCC) 09/26/2019 Malignant neoplasm of unspecified fallopian tube Cervical cancer (CMS/HCC) 03/15/2018 Malignant neoplasm of cervix uteri, unspecified Conversions - Other No illicit drug use COVID-19 10/2022 Essential (primary) hypertension Hypertension Hx antineoplastic chemo Hypothyroidism, unspecified Hypothyroidism Malignant neoplasm of unspecified site of left female breast (CMS/HCC) Malignant neoplasm of left breast Other specified health status Rarely consumes alcohol Personal history of irradiation Personal history of nicotine dependence Former light tobacco smoker Personal history of other specified conditions History of syncope Pure hypercholesterolemia, unspecified Hypercholesterolemia Syncope and collapse Cardiac syncope Thyrotoxicosis with diffuse goiter without thyrotoxic crisis or storm Graves' disease PSH: Past Surgical History: Procedure Laterality Date BREAST LUMPECTOMY Left 2000 malignant BREAST LUMPECTOMY Left 2017 malignant CHOLECYSTECTOMY N/A Cholecystectomy from [facility] EYE SURGERY N/A Eye surgery from [facility] HEMORRHOID SURGERY N/A Hemorrhoidectomy from [facility] HYSTERECTOMY N/A Hysterectomy from [facility] OTHER SURGICAL HISTORY N/A Surgical removal of lesion of finger from [facility] PARTIAL HYSTERECTOMY N/A Partial hysterectomy from [facility] ROTATOR CUFF REPAIR N/A Repair of rotator cuff of right shoulder from [facility] Allergies: Allergies Allergen Reactions Calcium Unknown - Patient states they do not know rxn details and Other - please document in the comment field arthritic pain in hands Morphine Hives and Itching Shellfish Allergy Other - please document in the comment field Nausea and Vomiting, I pass out Sulfacetamide Other - please document in the comment field and Unknown - Patient states they do notknow rxn details nausea, vomitting Home Medications: Current Outpatient Medications Medication Instructions anastrozole (ARIMIDEX) 1 mg, Oral, Daily, Swallow whole with a drink of water. aspirin 81 mg, Oral, Daily biotin 1,000 mcg, Oral, Daily cyclophosphamide (CYTOXAN) 50 mg, Oral, Daily ergocalciferol (VITAMIN D-2) 50,000 Units, Oral, Weekly, Monday erythromycin (Romycin) 5 MG/GM ophthalmic ointment Apply 1 Application to right eye every 8 (eight)hours. Flaxseed, Linseed, (Flaxseed Oil) 1000 MG capsule 1 tablet, Oral, Daily furosemide (LASIX) 20 mg, Oral, Daily gabapentin (NEURONTIN) 600 mg, Oral, Nightly lisinopril 5 mg, Oral, Daily nitroglycerin (Nitrostat) 0.4 MG SL tablet Every 5 min PRN potassium chloride ER (Micro-K) 10 MEQ ER capsule 10 mEq, Oral, ZZ 2 times daily RT prochlorperazine (COMPAZINE) 10 mg, Oral, Every 6 hours PRN simvastatin (ZOCOR) 40 mg, Oral, Nightly Synthroid 75 mcg, Daily Synthroid 75 mcg, Oral, Every morning valACYclovir (Valtrex) 500 MG tablet Take 1 tablet (500 mg) by mouth 1 (one) time each day. Active Medications: Continuous: Scheduled: enoxaparin, 40 mg, Subcutaneous, Daily ergocalciferol, 50,000 Units, Oral, Weekly furosemide, 20 mg, Oral, Daily gabapentin, 200 mg, Oral, Daily gabapentin, 600 mg, Oral, Nightly iohexol, 500 mL, Oral, Once in imaging levothyroxine, 75 mcg, Oral, Daily before breakfast lisinopril, 5 mg, Oral, Daily polyethylene glycol, 17 g, Oral, Daily potassium chloride, 20 mEq, Oral, Daily potassium phosphates 30 mmol in sodium chloride 0.9 % 500 mL infusion, 30 mmol, Intravenous, Once senna, 8.6 mg, Oral, Nightly sodium chloride, 10 mL, Intravenous, q12h PRN: acetaminophen, 650 mg, Oral, q4h PRN glucose, 15 grams of glucose, Sublingual, q15 min PRN OR dextrose 10 %, 125 mL, Intravenous, q15 min PRN OR glucagon (human recombinant), 1 mg, Intramuscular, q15 min PRN HYDROmorphone, 0.5 mg, Intravenous, q4h PRN ipratropium-albuterol, 3 mL, Nebulization, q6h PRN [DISCONTINUED] ondansetron ODT, 4 mg, Oral, q6h PRN OR ondansetron, 4 mg, Intravenous, q6h PRN OR [DISCONTINUED] ondansetron, 4 mg, Oral, q6h PRN oxyCODONE, 10 mg, Oral, q4h PRN [DISCONTINUED] prochlorperazine, 5 mg, Oral, q6h PRN OR [DISCONTINUED] prochlorperazine, 25 mg,Rectal, q12h PRN OR prochlorperazine, 2.5 mg, Intravenous, q6h PRN OR prochlorperazine, 5 mg, Intramuscular, q6h PRN Insert peripheral IV, , , Once AND Saline lock IV, , , Once AND sodium chloride, 10 mL, Intravenous, q12h AND sodium chloride, 10 mL, Intravenous, PRN Family history: reviewed and noncontributory to presenting illness Family History Problem Relation Name Age of Onset Colon cancer Other Family history of colon cancer Breast cancer Cousin Family history of malignant neoplasm of breast Breast cancer Cousin Family history of malignant neoplasm of breast Prostate cancer Father Family history of malignant neoplasm of prostate Cardiac disorder Mother Cardiac disorder Father Cardiac disorder Brother Diabetes Sister Diabetes Brother Hypertension Sister Hypertension Brother Hypertension Other Social history: Marital Status: single Children: none Previous Residence: lives with nephew in [place], [place] in a one home with 3 steps to enter Anticipated Residence: as above Support: family, nephew is home 20/02, does not work. He helps with groceries Tobacco: quit, smoked from 25-50 years Alcohol: denies Drugs: denies Travel: denies international travel in the last 6 months Occupational History: retired from [employer] Education: college education Hobbies: puzzles and reading DME used prior to rehab: denies Driving: stopped driving a couple months ago due to vision Patient/Family goals: PLOF Functional History: Premorbid: No assist required prior to admission Community ambulatory ADL independent Current: Bed mobility: scooting and bridging, supine to sit, Min assist Transfers: CGA Functional mobility: rolling walker, CGA 30' Bathing: depdenent Feeding: indepdenent Grooming: Independent face/hair/teeth/shaving Dressing: needs help but can also do about half unaided Toilet: needs some help Balance: min assist with static stand and dynamic stand ROS: 14 point ROS negative other than mentioned above in HPI. Unable to obtain due to ( mental status / intubation ) Consults: Position Clerk onc, OT, PT Precautions: Falls Procedures: None OBJECTIVE: Labs: Lab Results Component Value Date WBC 7.65 05/22/2024 WBC 6.99 05/21/2024 WBC 6.56 05/20/2024 HGB 10.6 (L) 05/22/2024 HGB 10.1 (L) 05/21/2024 HGB 10.3 (L) 05/20/2024 HCT 31.5 (L) 05/22/2024 MCV 108 (H) 05/22/2024 PLT 112 (L) 05/22/2024 PLT 93 (L) 05/21/2024 PLT 83 (L) 05/20/2024 Lab Results Component Value Date NA 135 (L) 05/22/2024 NA 134 (L) 05/21/2024 NA 138 05/20/2024 K 4.0 05/22/2024 K 3.3 (L) 05/21/2024 K 3.4 (L) 05/20/2024 CL 102 05/22/2024 CL 102 05/21/2024 CL 105 05/20/2024 BUN 19 05/22/2024 BUN 16 05/21/2024 BUN 15 05/20/2024 CREATININE 0.67 05/22/2024 CREATININE 0.60 05/21/2024 CREATININE 0.56 (L) 05/20/2024 CALCIUM 7.5 (L) 05/22/2024 CALCIUM 7.1 (L) 05/21/2024 CALCIUM 7.2 (L) 05/20/2024 GLUCOSE 77 05/22/2024 GLUCOSE 70 (L) 05/21/2024 GLUCOSE 67 (L) 05/20/2024 GLUCOSE 107 (H) 05/19/2024 GLUCOSE 94 05/18/2024 Lab Results Component Value Date ALT 40 (H) 05/22/2024 ALT 57 (H) 05/21/2024 ALT 85 (H) 05/20/2024 AST 20 05/22/2024 AST 24 05/21/2024 AST 36 (H) 05/20/2024 GGT 451 (H) 05/17/2024 ALKPHOS 120 05/22/2024 ALKPHOS 115 05/21/2024 ALKPHOS 119 05/20/2024 BILITOT 0.6 05/22/2024 BILITOT 0.9 05/21/2024 BILITOT 1.0 05/20/2024 Lab Results Component Value Date HGBA1C 5.3 05/17/2024 Cultures: Results Procedure Component Value Units Date/Time Blood Culture (Aerobic/Anaerobet Set) [[id number]] Collected: 05/17/242123 Order Status: Completed Specimen: Blood from Arm, Right Updated: 05/21/24 230 Culture No growth at day 4 Imaging reports reviewed: No MRI head results found for the past [address] head results found for the past 14 days Encounter Date: 05/17/24 ECG Adult Result Value EKG DIAGNOSIS CLASS Abnormal Ventricular Rate 97 Atrial Rate 97 NE Interval 152 QRSD Interval 64 QT Interval 344 QTC Interval 436 P [place] 50 R [place] 2 T Wave [place] 48 Diagnosis Normal sinus rhythm Diagnosis Cannot rule out Inferior infarct , age undetermined Diagnosis Possible Anterolateral infarct , age undetermined Diagnosis Abnormal ECG Diagnosis Diagnosis Confirmed by Diego Flower ([id number]) on 05/18/2024 11:18:03 AM *Note: Due to a large number of results and/or encounters for the requested time period, some results have not been displayed. A complete set of results can be found in Results Review. Current diet (full): Dietary Orders (From admission, onward) Start Ordered 05/21/241820 Oral nutrition supplements Until discontinued Question Answer Comment Supplement frequency: All meals All meals supplement: Boost Plus Vanilla All meals supplement: Boost Plus Chocolate Quantity for All Meals of Boost Plus Chocolate Two Quantity for All Meals of Boost Plus Vanilla Two 05/21/24 18205/20/24 1029 Adult diet Diet texture: Soft & Bite Sized 6 (Adult Diet Panel) Diet effective now References: IDDSI Diet Texture Guide Question: Diet texture Answer: Soft & Bite Sized 6 05/20/24 1028 PHYSICAL EXAM Visit Vitals BP 107/66 (BP Location: Right arm, Patient Position: Lying) Pulse 90 Temp 36.3 ??C (97.4 ??F) (Axillary) Ht 1.6 m (5' 3 ) Wt 82.2 kg (181 lb 3.5 oz) SpO2 94% BMI 32.10 kg/m?? Gen: NAD, reclining in bed Eyes: no scleral icterus, pupils round and symmetric Neck: supple, no tracheostomy ENT: nares patent, mucous membranes moist CV: regular rate, no BLE edema Resp: nonlabored breathing, no wheezing GI: abd soft, NTTP, +BS, -r/g, rounded : no villar Skin: warm, dry, right arm blanchable rash and rash on back Heme/lymph/immune: no bruising, no lymphadenopathy Psychiatric: good judgement, good insight MSK: BUE strength 4/5, BLE strength 4/5, ROM/MAS Neurological: awake and alert, participating in conversation, speech fluent sensation intact to light touch Port site CDI, accessed ASSESSMENT/PLAN: Muriel Chamberlain is a 78 y.o. 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 Pancreatitis with transaminates with hyperbilirubinemia -MRCP 05/18: pancreatitis, no choledocholithiasis -labs improving, -upgraded to po diet Nausea and pain -prn pain meds and iv meds Acute respiratory distress with pleural effusions -as needed oxygen, no oxygen use prior to admission HTN Neuropathy Recurrent right serous fallopian tube cancer -treatment on hold until seen in outpatient clinic and resolution of acute illness Hypophosphatemia Labs, chart, vitals and images reviewed Recommendations: Dispo: Acute Rehab Current barriers to discharge: -off iv zofran and pain medication for at least 24hrs prior to admission with toleration of oral diet Rehab ELOS: 10-14 days Functional goals at discharge: independent with ambulation, iadls and adls Anticipated final disposition: home with family (lives with 24year old nephew) Social support: family Medical prognosis: fair Medical need: pancreatitis, htn, neuropathy, transaminates, oxygen use Rehab prognosis: good The patient requires 24-hour availability of a rehabilitation physician to continue the management of acute medical/post-surgical issues, underlying comorbidities, and a rehabilitation plan that necessitates services from physical therapy, occupational therapy and/or speech therapy. The patient will tolerate > 3 hours of therapy per day, 5 days per week, is expected to make measurable improvement in their functional capacity, and has realistic goals to return to a community based living environment (home, assisted or independent living). The patients post-acute care needs are best met in an Acute Inpatient Rehabilitation (IRF) setting when deemed medically/surgically stable. Thank you for allowing us to participate in the care of your patient. We will continue to follow. Please page [phone] with any questions, or resident on-call if after hours or on weekends. Susy Hyde APRN Physical Medicine & Rehabilitation * Care Plan - Wanda Galdamez - 05/22/2024 1:29 AM EDT Problem: Adult Inpatient Plan of Care Goal: Absence of Hospital-Acquired Illness or Injury Outcome: Ongoing, Progressing Goal: Optimal Comfort and Wellbeing Outcome: Ongoing, Progressing Problem: Infection Goal: Absence of Infection Signs and Symptoms Outcome: Ongoing, Progressing * Progress Notes - Lizzeth Cancino MD - 05/21/2024 5:23 PM EDT Images from the original note were not included. Hospital Medicine Progress Note Subjective Patient reports she had a bowel movement this morning. She has been eating well and was asking for protein boost. She would like to go to [facility] for rehab since her treatment is here. Endorsesdiffused abdominal tenderness Objective Vitals: 05/21/24 1530 BP: (!) 162/92 Pulse: 109 Resp: 22 Temp: 37.3 ??C (99.1 ??F) SpO2: 94% Physical Exam Constitutional: General: She is not in acute distress. Appearance: Normal appearance. She is obese. She is not ill-appearing, toxic- appearing or diaphoretic. HENT: Head: Normocephalic and atraumatic. Nose: Nose normal. No congestion or rhinorrhea. Mouth/Throat: Mouth: Mucous membranes are dry. Pharynx: Oropharynx is clear. No oropharyngeal exudate or posterior oropharyngeal erythema. Eyes: General: No scleral icterus. Right eye: No discharge. Left eye: No discharge. Extraocular Movements: Extraocular movements intact. Conjunctiva/sclera: Conjunctivae normal. Pupils: Pupils are equal, round, and reactive to light. Cardiovascular: Rate and Rhythm: Normal rate and regular rhythm. Heart sounds: No murmur heard. No friction rub. No gallop. Pulmonary: Effort: Pulmonary effort is normal. No respiratory distress. Breath sounds: Normal breath sounds. No stridor. No wheezing, rhonchi or rales. Chest: Chest wall: No tenderness. Abdominal: General: Bowel sounds are normal. There is no distension. Palpations: Abdomen is soft. There is no mass. Tenderness: There is abdominal tenderness. There is no guarding or rebound. Hernia: No hernia is present. Musculoskeletal: General: No swelling, tenderness, deformity or signs of injury. Normal range of motion. Cervical back: Normal range of motion and neck supple. No rigidity or tenderness. Lymphadenopathy: Cervical: No cervical adenopathy. Skin: General: Skin is warm and dry. Capillary Refill: Capillary refill takes less than 2 seconds. Coloration: Skin is not jaundiced or pale. Findings: No bruising, erythema, lesion or rash. Neurological: General: No focal deficit present. Mental Status: She is alert and oriented to person, place, and time. Cranial Nerves: No cranial nerve deficit. Sensory: No sensory deficit. Motor: No weakness. Coordination: Coordination normal. Gait: Gait normal. Deep Tendon Reflexes: Reflexes normal. Psychiatric: Mood and Affect: Mood normal. Behavior: Behavior normal. Thought Content: Thought content normal. Judgment: Judgment normal. 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 She endorsed 2 separate syncopal episodes that occurred while vomiting. #Acute on Chronic Transaminitis w/ Hyperbilirubinemia #Pancreatitis with possible choledocholithiasis - Liver ultrasound - Status post cholecystectomy. No stones in the visible portions of the common bile duct. - other etiologies could include metastatic cancer, furosemide use, infection, autoimmune - simvastatin held - Triglycerides, normal - pain controlled on PO oxycodone - Antiemetics PRN - MRCP , no cholelithiasis - Tolerating PO diet Elevated BP without a history of HTN Only on lisinopril 5 mg at home, will continue to monitor BP Will start Nifedipine if continues to be elevated. 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 #Stage IA left breast cancer currently on Anastrozole, hold during acute illness #Hypothyroidism - continue Levothyroxine 75 mcg daily #HLD - hold Statin in setting of transaminitis, lipid panel wnl #Murmur/Moderate - noted on prior ECHO from 2022, EF 53%, appears to be stable, on Furosemide 20mg daily for swelling #Neuropathy - most likely tx related 2/2 Taxol, continue Gabapentin 600 mg nightly #Carotid Stenosis?/Syncopal Episodes - no clear documentation, syncopal episodes most likely 2/2 vagal response in setting of vomiting, will avoid hypotension #History of Cervical Cancer - s/p hysterectomy # Code status - DNR/DNI Lizzeth Robles MD Heavy Line Technician Internal Medicine Pediatrics Certified Autism Teacher Epic Chat preferred * Progress Notes - Stacey Guerra - 05/21/2024 12:02 PM EDT Case Management Adult Progress Note Muriel Chamberlain 78 y.o. female CSN: [id number] Admission: 05/17/2024 7:33 PM Primary Problem: Other acute pancreatitis without infection or necrosis Anticipated Discharge Date: 05/23/2024 Has Discharge Plans Changed? No Additional Comments: CM notified by provider of readiness to start referral process and patient prefers [facility] for Acute Rehab. CM sent referral as directed and requested PM&R Consult due to patient history of Cancer. CM will continue to follow. Stacey Guerra * Care Plan - Hiwot Oro RN - 05/21/2024 9:17 AM EDT Problem: Adult Inpatient Plan of Care Goal: Plan of Care Review Outcome: Ongoing, Progressing Goal: Patient-Specific Goal (Individualized) Outcome: Ongoing, Progressing Goal: Absence of Hospital-Acquired Illness or Injury Outcome: Ongoing, Progressing Goal: Optimal Comfort and Wellbeing Outcome: Ongoing, Progressing Goal: Readiness for Transition of Care Outcome: Ongoing, Progressing Problem: Infection Goal: Absence of Infection Signs and Symptoms Outcome: Ongoing, Progressing * Care Plan - Wanda Galdamez - 05/21/2024 3:38 AM EDT Problem: Adult Inpatient Plan of Care Goal: Absence of Hospital-Acquired Illness or Injury Outcome: Ongoing, Progressing Goal: Optimal Comfort and Wellbeing Outcome: Ongoing, Progressing Problem: Infection Goal: Absence of Infection Signs and Symptoms Outcome: Ongoing, Progressing * Progress Notes - Rosa Chisholm MD - 05/20/2024 3:13 PM EDT Subjective Patient was seen and examined at bedside with sister presented at that time. Patient reported improvement of her abdominal pain. Advanced her diet today. Objective Physical Exam Last Recorded Vitals Blood pressure 120/62, pulse (!) 111, temperature 36.8 ??C (98.3 ??F), temperature source Oral, resp. rate 20, height 1.6 m (5' 3 ), weight 75.4 kg (166 lb 3.6 oz), last menstrual period 11/17/1981, SpO2 95%. Physical Exam Vitals and nursing note reviewed. Constitutional: Appearance: normal HENT: Head: Normocephalic and atraumatic. Right Ear: Tympanic membrane normal. Left Ear: Tympanic membrane normal. Nose: Nose normal. Mouth/Throat: Mouth: Mucous membranes are moist Pharynx: Oropharynx is clear. Eyes: General: Scleral icterus present. Extraocular Movements: Extraocular movements intact. Pupils: Pupils are equal, round, and reactive to light. Cardiovascular: Rate and Rhythm: Regular rhythm. Pulses: Normal pulses. Heart sounds: Murmur heard. Pulmonary: Effort: Pulmonary effort is normal. Breath sounds: Normal breath sounds. Abdominal: General: Abdomen is flat. Bowel sounds are normal. There is no distension. Palpations: Abdomen is soft. Tenderness: There is abdominal tenderness in the right upper quadrant. Positive signs include Estrada's sign. Musculoskeletal: General: Normal range of motion. Cervical back: Normal range of motion and neck supple. Skin: General: Skin is warm and dry. Capillary Refill: Capillary refill takes less than 2 seconds. Coloration: Skin is jaundiced. Neurological: General: No focal deficit present. Mental Status: She is alert and oriented to person, place, and time. Mental status is at baseline. Psychiatric: Mood and Affect: Mood normal. Behavior: Behavior normal. Thought Content: Thought content normal. Judgment: Judgment normal. Assessment/Plan Principal Problem: Other acute pancreatitis without infection or necrosis Active Problems: Transaminitis Syncopal episodes #Acute on Chronic Transaminitis w/ Hyperbilirubinemia #Pancreatitis with possible choledocholithiasis - OSH CT PE demonstrating no PE, curvilenear and ground glass opacities in both lower lobes may represent atelectasis or pneumonia, no cardiomegaly, small amount of ascites around the right and left anterior pararenal fascias and around the liver. - Liver ultrasound - Status post cholecystectomy. No stones in the visible portions of the common bile duct. 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 Nine lymph nodes were removed and all were negative for metastatic disease, 10/04/2016 she underwent a left needle localized lumpectomy. 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 female admitted 05/17/2024 for work-up of Other acute pancreatitis without infection or necrosis. Hospital Course No diagnosis found. Procedures (if applicable) Past Medical History Patient has a past medical history of Abnormal uterine and vaginal bleeding, unspecified, Carcinoma of fallopian tube ([facility]) (09/26/2019), Cervical cancer ([facility]) (03/15/2018), Conversions - Other, COVID-19 (10/2022), Essential (primary) hypertension, antineoplastic chemo, Hypothyroidism, unspecified, Malignant neoplasm of unspecified site of left female breast ([facility]), Other specified health status, Personal history of irradiation, Personal history of nicotine dependence, Personal history of other specified conditions, Pure hypercholesterolemia, unspecified, Syncope and collapse, and Thyrotoxicosis with diffuse goiter without thyrotoxic crisis or storm. Past Surgical History Patient has a past surgical history that includes Cholecystectomy (N/A); Eye surgery (N/A); Hemorrhoid surgery (N/A); Breast lumpectomy (Left, 2000); Partial hysterectomy (N/A);Rotator cuff repair (N/A); Other surgical history (N/A); Hysterectomy (N/A); and Breast lumpectomy (Left, 2017). PRECAUTIONS Weight Bearing Precautions (if applicable) ROM Restrictions (if applicable) Medical Precautions Medical Precautions: Fall precautions SUBJECTIVE PARTICIPANTS IN CARE Patient/Caregiver Comments Patient agreeable to Physical Therapy evaluation. Visitors Present Adult Daughter Director Of Vital Statistics (if applicable) PRESENTATION Oxygen Supplemental oxygen Nasal cannula 2 L/min Lines and Tubes Single Lumen Implantable Port Right Chest (Active) Peripheral IV Anterior;Proximal;Right Forearm (Active) Pre-Session Supine, Head of bed elevated, Lines intact RN cleared patient for Physical Therapy evaluation. Post-Session Lines intact, RN notified, Sitting in chair, Call light in reach, Chair alarm Patient positioned for comfort and pressure relief at conclusion of treatment session. Bracing (if applicable) HOME LIVING/SET-UP Lives With (great nephew) Home Type House Home Equipment Cane Home Layout Two level, Able to live on one level with bedroom/bathroom, Stairs to enter with rails Number of Stairs: 3 Bathroom Layout Bathroom: Tub/Shower: Tub/Shower combo, Shower chair Bathroom: Toilet: Standard Additional Comments PRIOR LEVEL OF FUNCTION Assist at Home No assist required prior to admission Level of Mobility Ambulatory- community Mobility [place] Independent gait without device History of Falls No Overall ADL Performance Independent Additional ADL Performance Detail PATIENT/FAMILY GOALS Pt agreeable to PT evaluation. OBJECTIVE PAIN Pt notes 7/10 abdominal pain. Pt positioned for comfort and pressure relief at conclusion of treatment session. DELIRIUM SCREENING Carvajal Agitation Sedation Scale (RASS): Alert and calm Confusion Assessment Method-ICU (CAM-ICU/PCAM-ICU) Feature 3: Altered Level of Consciousness: Negative COGNITION Overall Cognitive Status Within Functional Limits Arousal/Alertness Appropriate responses to stimuli Mood/Behavior Alert Orientation Oriented x 4 Command Following Single Step Commands: Consistently Method of Communication Verbal Additional Observations VISION Baseline Vision Intact Current Vision (if different) MOTOR EXAMINATION RANGE OF MOTION Right Upper Within Functional Limits Left Upper Within Functional Limits Right Lower Within Functional Limits Left Lower Within Functional Limits MANUAL MUSCLE TESTING Right Upper Within functional limits Left Upper Within functional limits Right Lower Within functional limits Left Lower Manual Muscle Testing: Within functional limits SENSORY EXAMINATION Light Touch Sensation Right Upper Intact Left Upper Intact Right Lower Intact Left Lower Intact INTERVENTIONS THERAPEUTIC ACTIVITY Treatment Minutes 24 Interventions In addition to initial evaluation, pt participated in 24 minute therapeutic activity treatment session focused on bed mobility, sitting balance, postural control, activity tolerance, sit to stand transfer, bed to chair transfer, gait, assistive device management, lower extremity sequencing, energy conservation, and pt education regarding HEP and mobility. Pt required sequential verbal/tactile cues for task completion due to decreased safety awareness and impaired dynamic balance. Pt responded well to cues for safety, posture, and sequencing of tasks. All therapeutic activity specifically prescribed to address patient's impairments, performed to encourage increased IND with functional tasks due to current functional decline, ultimately to encourage a full return to patient's prior level of function. BED MOBILITY Level of [place] Physical/Non- physical Assist Adaptive Equipment Utilized Rolling/ Turning Scooting/ Bridging Minimum assist (75% patient's effort) Verbal Cues Supine to Sit Minimum assist (75% patient's effort) Verbal Cues Sit to Supine Interventions TRANSFERS Level of [place] Physical/Non- physical Assist Adaptive Equipment Utilized Sit to Stand Contact guard Verbal Cues Walker, rolling Stand to sit Contact guard Verbal Cues Walker, rolling Bed to Chair Toilet Transfer Shower Transfer Interventions AMBULATION Level of [place] Distance Adaptive Equipment Utilized Ambulation Contact guard assist 30' Rolling walker Comments Pt exhibits the following gait deficits: decreased step length decreased gait speed impaired dynamic balance decreased nelson poor assistive device management impaired safety during turns with assistive device Patient demonstrates decreased overall activity tolerance and decreased strength, evidenced by decreased ambulation distance compared to baseline level of function. Provided verbal and tactile cueing to correct gait abnormalities listed above, to encourage increased overall functional IND, decrease overall fall risk, and ultimately a return to patient's prior level of function. BALANCE Postural Appearance Posture: Stooped posture, Forward head, Rounded shoulders Level of [place] Balance Support Interventions Static Sit Contact guard Right upper extremity support, Left upper extremity support, Feet supported Dynamic Sit Contact guard Right upper extremity support, Left upper extremity support, Feet supported Dynamic Sitting-Balance: Lateral weight shifts, Anterior/Posterior weight shifts, Reaching for objects Static Stand Minimum assistance Right upper extremity support, Left upper extremity support (rolling walker) Dynamic Stand Minimum assistance Right upper extremity support, Left upper extremity support (rolling walker) Lateral weight shifts, Anterior/Posterior weight shifts, Reaching for objects STANDARDIZED ASSESSMENTS [facility] 6-Clicks Mobility Assessment Difficulty patient has turning over in bed (including adjusting bedclothes, sheets, and blankets)?:A little Difficulty patient has sitting down on and standing up from a chair with arms (wheelchair, bedside commode, etc.)?: A little Difficulty patient has moving from lying on back to sitting on the side of the bed?: A little How much help does the patient need moving to and from a bed to a chair (including a wheelchair)?: A little How much help does the patient need to walk in hospital room?: A lot How much help does the patient need climbing 3-5 steps with a railing?: A lot [facility] 6-Clicks Mobility Assessment Total : 16 ASSESSMENT Pt limited throughout treatment session by impaired balance, poor postural control, and decreased overall functional mobility compared to baseline level of function. Pt unsafe to return home at this time given current level of function and increased overall fall risk, which ultimately places patient at an increased risk of hospital re-admission. Pt limited by pain, ultimately limiting gait distance and overall functional mobility. Pt motivated to progress and improve strength to decrease overall fall risk. Pt would benefit from Acute Rehab placement at this time for the following reasons: pt unable to perform necessary transfers, gait, or balance tasks to allow for DC home, pt unable to perform ADLs, pt remains a high fall risk during transfers and gait, and thus is unsafe for discharge to home, pt ambulates at a slow pace and cannot perform ADL and iADLs functionally without prolonged rests, pt has stairs to enter home that pt cannot negotiate safely, pt would benefit from further instruction improving functional transfers and ambulation, PT anticipates that pt would benefit from Acute Rehab given pt's current functional status, potential for improvement, and inability to meet rehab need at a lower level of care at this time. As a result, recommend Acute Rehab placement upon hospital discharge to encourage increased IND with all transfers, balance, and gait, to ensure a safe transition to the home environment and decreaseoverall fall risk. Pt very motivated to progress and would make a great candidate for acute rehab to encourage a full return to pt's prior, IND level of function and to ensure safety and increased mobility in the home environment and community. PT FINDINGS Impairments (if identified) Decreased endurance, ventilation, and/or gas exchange, Impaired gait dynamics/performance, Impaired postural/trunk control, Decreased strength, Decreased range of motion, Impaired motor cordination/control, Impaired functional mobility/transfers, Impaired motor planning, Impaired locomotion, Impaired balance, Impaired muscle tone Activity Limitations (if identified) Inability to ambulate community distances, Inability to complete ADLs independently, Inability to ambulate household distances, Inability to transfer independently Participation Restrictions (if identified) Self-care, Home management, Community leisure Barriers to Discharge (if identified) Comorbidities Additional Observations Activity Tolerance: Standing, Sitting, Walking, Tolerates 30 min activity with multiple rests Evaluation/Treatment Tolerance: Patient limited by fatigue, Patient limited by pain, Treatment limited secondary to medical complications (Comment) Diagnosis: impaired functional mobility and decreased overall activity tolerance Rehab Potential: Good, to achieve stated therapy goals EVAL COMPLEXITY History Profile 1 - 2 personal factors and/or comorbidities Clinical Presentation Evolving clinical presentation with changing characteristics Clinical Decision Making Moderate complexity PT RECOMMENDATIONS Discharge Destination Acute rehab Discharge Equipment Defer to facility Additional Recommendations (if applicable) PLAN Planned PT Interventions Balance training, Bed mobility training, Gait training, Motor coordination training, Transfer training, Postural re-education, Neuromuscular re-education, ROM, Strengthening, Stretching, Functional Mobility PT Frequency 2 - 5 times per week PT Duration 2 weeks PT GOALS PT GOAL DETAILS Time Frame PT Goal 1: Pt will be IND with all bed mobility from a flat surface. 2 weeks PT Goal 2: Pt will perform sit to stand and bed to chair, MOD IND, with appropriate assistive device. 2 weeks PT Goal 3: Pt will ambulate 350 feet, MOD IND, with appropriate assistive device. 2 weeks PT Goal 4: Pt will be IND with HEP and agreeable to PT POC and DC recommendations. 2 weeks PT Goal 5: Pt will safely ascend and descend 3 standard steps to allow for safe entry and exit at home. 2 weeks Written by Simeon Jacobson on 05/20/24 * Clinician Note - Kaitlynn Giron MD - 05/20/2024 1:12 PM EDT Patient no longer requiring acute gynecologic care at this time. Chemo paused at this time, will restart in two weeks. If patient still inpatient at this time, please reach out to our team about rescheduling. Thank you for involving us in this patient's care. Please reach out with any questions. Kaitlynn Giron MD Obstetrics & Gynecology, PGY-1 * Progress Notes - Stacey Guerra H - 05/20/2024 10:51 AM EDT Case Management Adult Initial Progress Note Muriel Chamberlain 78 y.o. female CSN: [id number] Admission: 05/17/2024 7:33 PM Primary Problem: Other acute pancreatitis without infection or necrosis Bark Press Operator reviewed chart and spoke with patient to complete this Initial Case Management Assessment. PCP: Flaquita Dorsey DO Emergency Contact: Extended Emergency Contact Information Primary Emergency Contact: Arianne Chamberlain Mobile Relation: Sister Preferred language: Turkish Director Of Vital Statistics needed? No Insurance: Primary Visit Coverage Payer Plan Sponsor Code Group Number Group Name MEDICARE MEDICARE A & B Primary Visit Coverage Subscriber Subscriber ID Subscriber Name Subscriber [facility] Subscriber Address [id number] [address]AM[address] [phone] [address] [place] [address] Secondary Visit Coverage Payer Plan Sponsor Code Group Number Group Name [facility] PPO [id number] Secondary Visit Coverage Subscriber Subscriber ID Subscriber Name Subscriber [facility] Subscriber Address [id number] [address]URI[address] CHAMBERLAIN [phone] [address] [place] [address] Patient information: Primary Caregiver: Self Accompanied by/Relationship: Sister: Arianne/ LAURA: Aurelia/ Niece: Kristen Support System: Immediate family Daily Living Activities: Functional Status: Independent Living Arrangements: Other (Comment) (Nephnicolasa Chamberlain stays at night) Type of Residence: Private residence [address] [facility] [address] Smoker in the Home?: N/A Current DME: Equipment Currently Used at Home: none Income Information: Income Source: Retired Current Resources Utilized: None Anticipated Discharge Date: TBD Patient's Discharge Goal: Open to going to Rehab if needed Assistance Available at Discharge: Family as needed Discharge Transport: Family Follow Up Transport: Family Home Health / Home Infusion / Outpatient Dialysis Services: N/A Living Will/Advance Directive/Power of Precision Lens Grinder /Guardian: Have you reviewed your Advance Directive and is it valid for this stay?: No Advance Directive: Not applicable Information Provided on Healthcare Directives: No Pre-existing DNR/DNI Order: No Patient Requests Assistance: No LW: Needs updated per patient/No POA reported Additional Comments: Per H&P patient with recurrent fallopian tube cancer admitted to for pancreatitis. Currently not medically ready for discharge. CM will continue to follow. Stacey Guerra * Progress Notes - Chapo Quiroga - 05/20/2024 9:35 AM EDT Occupational Therapy Evaluation Patient Name: Muriel Chmaberlain Today's Date: 05/20/2024 OT Discharge Recommendations: Acute rehab Equipment Recommended: Defer to facility History Muriel Chamberlain is 78 y.o. female admitted 05/17/2024 for work-up of Other acute pancreatitis without infection or necrosis. Problem List Active Hospital Problems Diagnosis Date Noted Other acute pancreatitis without infection or necrosis 05/17/2024 Transaminitis 05/17/2024 Syncopal episodes 05/17/2024 Procedures Past Medical History Patient has a past medical history of Abnormal uterine and vaginal bleeding, unspecified, Carcinomaof fallopian tube ([facility]) (09/26/2019), Cervical cancer ([facility]) (03/15/2018), Conversions - Other, COVID-19 (10/2022), Essential (primary) hypertension, antineoplastic chemo, Hypothyroidism, unspecified, Malignant neoplasm of unspecified site of left female breast ([facility]), Other specified health status, Personal history of irradiation, Personal history of nicotine dependence, Personal history of other specified conditions, Pure hypercholesterolemia, unspecified, Syncope and collapse, and Thyrotoxicosis with diffuse goiter without thyrotoxic crisis or storm. Past Surgical History Patient has a past surgical history that includes Cholecystectomy (N/A); Eye surgery (N/A); Hemorrhoid surgery (N/A); Breast lumpectomy (Left, 2000); Partial hysterectomy (N/A); Rotator cuff repair (N/A); Other surgical history (N/A); Hysterectomy (N/A); and Breast lumpectomy (Left, 2017). Precautions Medical Precautions: Fall precautions Subjective Patient agreeable to initial OT evaluation this a.m. Participants in Care Family/Caregiver Present: Yes Family/Caregiver: Adult Daughter Director Of Vital Statistics: Not Applicable Presentation Oxygen Therapy: Supplemental oxygen O2 Delivery Method: Nasal cannula O2 Flow Rate (L/min): 2 L/min Lines and Tubes: Intravenous access, Telemetry Pre-Session: Supine, Head of bed elevated, Lines intact Post-Session: Lines intact, RN notified, Sitting in chair, Call light in reach Home Living/Set-up Lives With: (great nephew) Home Type: House Home Adaptive Equipment: Cane Home Layout: Two level, Able to live on one level with bedroom/bathroom, Stairs to enter with rails Number of Stairs: 3 Bathroom: Tub/Shower: Tub/Shower combo, Shower chair Bathroom: Toilet: Standard Prior Level of Function Receives Help From: No assist required prior to admission Level of Mobility: Ambulatory- community Mobility [place]: Independent gait without device History of Falls: No ADL Performance: Independent Patient/Family Goals Statement Objective Pain Patient states 7/10 abdominal pain. RN aware. Delirium Screening Carvajal Agitation Sedation Scale (RASS): Alert and calm Confusion Assessment Method-ICU (CAM-ICU/PCAM-ICU) Feature 3: Altered Level of Consciousness: Negative Cognition Overall Cognitive Status: Within Functional Limits Arousal/Alertness: Appropriate responses to stimuli Mood/Behavior: Alert Orientation Level: Oriented X4 Single Step Commands: Consistently Multi-Step Commands: Consistently Method of Communication: Verbal Right Upper Extremity Examination RUE ROM Assessment RUE Assessment: Within Functional Limits Manual Muscle Testing - RUE: Within functional limits Sensation Light Touch: Right Upper Extremity: Intact Left Upper Extremity Examination LUE ROM Assessment LUE Assessment: Within Functional Limits Manual Muscle Testing - LUE: Within functional limits Sensation Light Touch: Left Upper Extremity: Intact Right Lower Extremity Examination RLE ROM Assessment RLE Assessment: Within Functional Limits Manual Muscle Testing - RLE: Within functional limits Sensation Light Touch: Right Lower Extremity: Intact Left Lower Extremity Examination LLE ROM Assessment LLE Assessment: Within Functional Limits Manual Muscle Testing: Within functional limits Sensation Light Touch: Left Lower Extremity: Intact Bed Mobility Bed Mobility Exam: Scooting/Bridging Level of [place]: Minimum assist (75% patient's effort) Physical/Nonphysical Assist: Verbal Cues Bed Mobility Exam: Supine to Sit Level of [place]: Minimum assist (75% patient's effort) Physical/Nonphysical Assist: Verbal Cues Transfers Transfer Exam: Sit to stand Level of [place]: Contact guard Physical/Nonphysical Assist: Verbal Cues Assistive Device: Walker, rolling Transfer Exam: Stand to Sit Level of [place]: Contact guard Physical/Nonphysical Assist: Verbal Cues Assistive Device: Walker, rolling Functional Mobility Device: Rolling walker Assistance: Contact guard assist Distance : 30' Therapeutic Activity (25 minutes) Please refer to bed mobility and transfers for intervention details. Patient required verbal cueingand physical assist (hand and feet placement) for set-up, initiation, facilitation, sequencing, andoverall execution of instructed tasks. Therapeutic activity focused on functional task training in order to promote functional strengthening, maximize activity tolerance, and enhance safety awareness. Standardized Assessments Simeon Index Feeding: Independent Bathing: Dependent Grooming: Independent face/hair/teeth/shaving (implements provided) Dressing: Needs help but can do about half unaided Bowels: Continent Bladder: Continent Toilet Use: Needs some help but can do some things alone Transfers (Bed to Chair and Back): Minor help (verbal or physical) Mobility (on Level Surfaces): Walks with help or one person (verbal or physical) > 50 yards Stairs: Needs help (verbal, physical, carrying aid) Total Score: 70 Assessment Patient will benefit from acute rehab to regain independence with ADLs and functional mobility. Barriers to function include pain, decreased endurance and decreased strength. OT Findings: Impaired ADL performance, Impaired IADL performance, Impaired functional mobility, Impaired balance Evaluation/Treatment Tolerance: Patient limited by pain Rehab Potential: Fair, will monitor progress closely Barriers to Discharge: Comorbidities Eval Complexity Occupational Profile: Brief history including review of medical/therapy records relating to presenting problem Performance Deficits: Activities of daily living (ADLs), Instrumental activities of daily living (IADLs), Rest and sleep, Leisure, Social participation Clinical Decision Making: Moderate Overall Eval complexity: Moderate OT Recommendations Discharge Destination: Acute rehab Discharge Equipment: Defer to facility Plan Planned OT Interventions ADL retraining, Balance training, Bed mobility Training, Strengthening, Transfer training, Functional mobility OT Frequency 2 - 5 times per week OT Duration 2 weeks Goals OT GOAL DETAILS Time Frame OT Goal 1: Patient will demo mod I with grooming tasks standing EOS with RW, 4/5 trials. 2 weeks OT Goal 2: Patient will demo mod I with toilet transfers via RW, 4/5 trials. 2 weeks OT Goal 3: Patient will demo mod I with LB Dressing tasks, 4/5 trials. 2 weeks OT Goal 4: Patient will demo mod I with all toileting tasks, 4/5 trials. 2 weeks Written by Chapo Quiroga on 05/20/24 at 11:30 AM. * Progress Notes - Anahi Stoddard MD - 05/20/2024 5:30 AM EDT Gynecologic Oncology Daily Progress Note Subjective Patient did well overnight. Her pain is controlled with PO and IV meds . Tolerating FLD without nausea/vomiting. Voiding spontaneously. Denies fever, chills, SOA, chest pain, nausea/vomiting. Review of Systems 10-point ROS performed and negative except as per HPI. Objective Temp: [36.4 ??C (97.5 ??F)-37.4 ??C (99.3 ??F)] 36.4 ??C (97.5 ??F) Heart Rate: [91-111] 96 Resp: [16-20] 18 BP: (129-174)/(67-84) 174/67 Vitals: 05/19/242057 BP: Pulse: Resp: 18 Temp: SpO2: 99% No intake/output data recorded. Physical Exam: GENERAL: Alert, well-appearing, in NAD CARDIOVASCULAR: Normal rate, regular rhythm, no murmurs, rubs, or gallops. RESPIRATORY: Clear to auscultation bilaterally, normal respiratory effort on 2L NC GASTROINTESTINAL: Soft, tender, distended, guarding, no rebound. Bowel sounds present. GENITOURINARY: Deferred SKIN: Warm, dry, well-perfused. PSYCHIATRIC: AO x3, with appropriate affect, normal thought processes EXREMITIES: Symmetric. No peripheral edema. Labs: Lab Results Component Value Date WBC 5.78 05/19/2024 HGB 10.7 (L) 05/19/2024 HCT 32.2 (L) 05/19/2024 MCV 110 (H) 05/19/2024 PLT 75 (L) 05/19/2024 NEUTROABS 5.21 05/19/2024 GLUCOSE 107 (H) 05/19/2024 BUN 18 05/19/2024 CREATININE 0.67 05/19/2024 NA 142 05/19/2024 K 3.1 (L) 05/19/2024 CL 110 (H) 05/19/2024 CO2 24 05/19/2024 MG 1.9 05/19/2024 PHOS 1.5 (L) 05/19/2024 CALCIUM 7.4 (L) 05/19/2024 Imaging: CT Abdomen Pelvis wo IV Contrast Result Date: 05/19/2024 Impression: No evidence of free intraperitoneal air. Peripancreatic fat stranding/inflammation consistent with pancreatitis with small volume fluid tracking to the pelvis. Clinical correlation is recommended. New small bilateral pleural effusions and bibasilar consolidations. CRITICAL RESULT: No. CO MMUNICATION: Per this written report. Drafted by Linh Parham MD on 05/19/2024 6:54 PM Final report signed by Linh Parham MD on 05/19/2024 6:59 PM XR Abdomen 1 View Result Date: 05/19/2024 Impression: Possible pneumoperitoneum in the upper abdomen, please consider assessment with cross-sectional imaging CRITICAL RESULT: No. COMMUNICATION: Per this written report. Drafted by Sung Schneider MD on 05/19/2024 12:23 PM Final report signed by Sung Schneider MD on 05/19/2024 12:25 PM Assessment/Plan Muriel Chamberlain is a 78 y.o. female with recurrent fallopian tube cancer admitted to for pancreatitis #Acute on Chronic Transaminitis w/ Hyperbilirubinemia #Pancreatitis - Care per primary - Pain controlled with PO medications and IV Dilauded PRN - NPO, MIVF - Voiding spontaneously. - MRCP 05/18: pancreatitis, no choledocholithiasis - Lipase down-[id number] - LFTs down-trending: AST 464-322 ALT 372-299 - Zosyn (05/18-) - Symptomatically improved - CXR 05/19: Possible pneumoperitoneum in the upper abdomen - CT AP 05/19: Peripancreatic fat stranding/inflammation consistent with pancreatitis with small volume fluid tracking to the pelvis. New small bilateral pleural effusions and bibasilar consolidations Plan: -Follow-up abdominal doppler US #Recurrent Fallopian Tube Cancer - Hold Cytoxan until current pancreatitis episode is resolved as it is metabolized by the liver andmay contribute to transaminitis. Do not continue on discharge home until seen for follow up in Dr. Hutchins's office. - Will delay scheduled Dana chemo treatment 05/22 until medically stable from acute illness. - CA125 wnl - CT 04/22: stable to improved disease - CT from OSH not available at time of consult. - [facility] will continue to follow patient. # Chronic medical conditions - Per primary team # FEN/PPX - NPO/MVIF - pLove - Replete electrolytes PRN Dispo: Continue inpatient management. Please message on-call [facility] resident via [employer] Secure Chat or page [phone] for questions or concerns regarding this patient's care. Cosigned by Penelope Carmona MD at 05/20/2024 5:21 PM EDT Associated attestation - Penelope Carmona MD - 05/20/2024 5:21 PM EDT I saw and evaluated the patient with the resident/fellow. I discussed the case with the resident/fellow and agree with the findings and plan as documented. * Care Plan - Sally Bullard RN - 05/19/2024 10:31 PM EDT Pt will remain free from falls/injury through end of shift today * Care Plan - Tania Hernandez - 05/19/2024 1:54 PM EDT Problem: Adult Inpatient Plan of Care Goal: Plan of Care Review Outcome: Ongoing, Progressing Flowsheets Taken 05/18/2024 2316 by Chloé Mukherjee RN Plan of Care Reviewed With: patient Taken 05/18/2024 1038 by Tania Hernandez Progress: no change Goal: Patient-Specific Goal (Individualized) Outcome: Ongoing, Progressing Flowsheets (Taken 05/19/2024 0700 by Donya Huitron RN) Patient/Family-Specific Goals (Include Timeframe): Patient will remain free from falls and injury this shift. Individualized Care Needs: Safety Anxieties, Fears or Concerns: Pain, plan of care Goal: Absence of Hospital-Acquired Illness or Injury Outcome: Ongoing, Progressing Goal: Optimal Comfort and Wellbeing Outcome: Ongoing, Progressing Goal: Readiness for Transition of Care Outcome: Ongoing, Progressing Problem: Infection Goal: Absence of Infection Signs and Symptoms Outcome: Ongoing, Progressing * Progress Notes - Rosa Chisholm MD - 05/19/2024 12:59 PM EDT Subjective Patient was seen and examined at bedside with sister presented at that time. Patient reported improvement of her abdominal pain but still there. Abdominal X ray with possible small perforation. Will get CT abdomen and pelvis. Objective Physical Exam Last Recorded Vitals Blood pressure 120/62, pulse (!) 111, temperature 36.8 ??C (98.3 ??F), temperature source Oral, resp. rate 20, height 1.6 m (5' 3 ), weight 75.4 kg (166 lb 3.6 oz), last menstrual period 11/17/1981, SpO2 95%. Physical Exam Vitals and nursing note reviewed. Constitutional: Appearance: She is ill-appearing. HENT: Head: Normocephalic and atraumatic. Right Ear: Tympanic membrane normal. Left Ear: Tympanic membrane normal. Nose: Nose normal. Mouth/Throat: Mouth: Mucous membranes are dry. Pharynx: Oropharynx is clear. Eyes: General: Scleral icterus present. Extraocular Movements: Extraocular movements intact. Pupils: Pupils are equal, round, and reactive to light. Cardiovascular: Rate and Rhythm: Regular rhythm. Tachycardia present. Pulses: Normal pulses. Heart sounds: Murmur heard. Pulmonary: Effort: Pulmonary effort is normal. Breath sounds: Normal breath sounds. Abdominal: General: Abdomen is flat. Bowel sounds are normal. There is no distension. Palpations: Abdomen is soft. Tenderness: There is abdominal tenderness in the right upper quadrant. Positive signs include Estrada's sign. Musculoskeletal: General: Normal range of motion. Cervical back: Normal range of motion and neck supple. Skin: General: Skin is warm and dry. Capillary Refill: Capillary refill takes less than 2 seconds. Coloration: Skin is jaundiced. Neurological: General: No focal deficit present. Mental Status: She is alert and oriented to person, place, and time. Mental status is at baseline. Psychiatric: Mood and Affect: Mood normal. Behavior: Behavior normal. Thought Content: Thought content normal. Judgment: Judgment normal. Assessment/Plan Principal Problem: Other acute pancreatitis without infection or necrosis Active Problems: Transaminitis Syncopal episodes #Acute on Chronic Transaminitis w/ Hyperbilirubinemia #Pancreatitis with possible choledocholithiasis - OSH CT PE demonstrating no PE, curvilenear and ground glass opacities in both lower lobes may represent atelectasis or pneumonia, no cardiomegaly, small amount of ascites around the right and left anterior pararenal fascias and around the liver. - Liver ultrasound - Status post cholecystectomy. No stones in the visible portions of the common bile duct. 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 Nine lymph nodes were removed and all were negative for metastatic disease, 10/04/2016 she underwent a left needle localized lumpectomy. 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 Her pain is controlled with PO medications and PRN IV dilauded. NPO diet, no nausea/vomiting overnight. Passing flatus. Voiding spontaneously. Denies fever, chills, SOA, chest pain, nausea/vomiting. Review of Systems 10-point ROS performed and negative except as per HPI. Objective Temp: [36.7 ??C (98.1 ??F)-37.4 ??C (99.3 ??F)] 37.1 ??C (98.8 ??F) Heart Rate: [100-112] 112 Resp: [20-21] 21 BP: (120-143)/(62-77) 134/73 Vitals: 05/18/24 1546 BP: 134/73 Pulse: (!) 112 Resp: 21 Temp: 37.1 ??C (98.8 ??F) SpO2: 91% No intake/output data recorded. Physical Exam: GENERAL: Alert, well-appearing, in NAD CARDIOVASCULAR: Normal rate, regular rhythm, no murmurs, rubs, or gallops. RESPIRATORY: Clear to auscultation bilaterally, normal respiratory effort on room air GASTROINTESTINAL: Soft, appropriately tender, non-distended, no rebound or guarding. GENITOURINARY: Deferred SKIN: Warm, dry, well-perfused. PSYCHIATRIC: AO x3, with appropriate affect, normal thought processes EXREMITIES: Symmetric. No peripheral edema. Labs: Lab Results Component Value Date WBC 5.05 05/18/2024 HGB 12.0 05/18/2024 HCT 36.3 05/18/2024 MCV 109 (H) 05/18/2024 PLT 94 (L) 05/18/2024 NEUTROABS 4.64 05/18/2024 GLUCOSE 94 05/18/2024 BUN 30 (H) 05/18/2024 CREATININE 0.95 05/18/2024 NA 141 05/18/2024 K 4.0 05/18/2024 CL 107 05/18/2024 CO2 22 05/18/2024 MG 2.1 05/18/2024 PHOS 3.8 05/18/2024 CALCIUM 8.4 (L) 05/18/2024 Imaging: MRCP w and wo IV Contrast Result Date: 05/18/2024 Impression: 1. Acute edematous interstitial pancreatitis. No peripancreatic collection. 2. No choledocholithiasis. 3. Small bilateral pleural effusions, right greater than left with right basilar atelectasis CRITICAL RESULT: No. COMMUNICATION: Per this written report. Drafted by Sung Schneider MD on05/18/2024 2:03 PM Final report signed by Sung Schneider MD on 05/18/2024 2:26 PM US Abdomen Focused Region GB, Bile Ducts, Liver Result Date: 05/17/2024 Impression: Status post cholecystectomy. No stones in the visible portions of the common bile duct.CRITICAL RESULT: No. COMMUNICATION: Per this written report. Drafted by Linh Parham MD on 05/17/2024 11:38 PM Final report signed by Linh Parham MD on 05/17/2024 11:39 PM XR Chest 1 View Result Date: 05/17/2024 Impression: Bibasilar opacities representing atelectasis or airspace disease CRITICAL RESULT: No COMMUNICATION: Per this written report. Drafted by Linh Parham MD on 05/17/2024 9:21 PM Final reportsigned by Linh Parham MD on 05/17/2024 9:22 PM Assessment/Plan Muriel Chamberlain is a 78 y.o. female with recurrent fallopian tube cancer admitted to for pancreatitis #Acute on Chronic Transaminitis w/ Hyperbilirubinemia #Pancreatitis - Care per primary - Pain controlled with PO medications and IV Dilauded PRN - NPO, MIVF - Voiding spontaneously. - MRCP 05/18: pancreatitis, no choledocholithiasis - Lipase down-[id number] - LFTs down-trending: AST 464-322 ALT 372-299 - Zosyn (05/18-) - Symptomatically improved #Recurrent Fallopian Tube Cancer - Hold Cytoxan until current pancreatitis episode is resolved as it is metabolized by the liver andmay contribute to transaminitis. Do not continue on discharge home until seen for follow up in Dr. Hutchins's office. - Will delay scheduled Dana chemo treatment 05/22 until medically stable from acute illness. - CA125 wnl - CT 04/22: stable to improved disease - CT from OSH not available at time of consult. - [facility] will continue to follow patient. # Chronic medical conditions - Per primary team # FEN/PPX - NPO/MVIF - pLove - Replete electrolytes PRN Dispo: Continue inpatient management. Thank you for the consult, we appreciate working together forthis patient's care. Please message on-call [facility] resident via [employer] Secure Chat or page [phone] for questions or concerns regarding this patient's care. Carlene Rubio DO PGY-3 Obstetrics & Gynecology Cosigned by Penelope Carmona MD at 05/19/2024 8:30 AM EDT Associated attestation - Penelope Carmona MD - 05/19/2024 8:30 AM EDT I saw and evaluated the patient with the resident/fellow. I discussed the case with the resident/fellow and agree with the findings and plan as documented. * Care Plan - Chloé Mukherjee RN - 05/18/2024 11:16 PM EDT Problem: Adult Inpatient Plan of Care Goal: Plan of Care Review Outcome: Ongoing, Progressing Flowsheets (Taken 05/18/2024 2316) Plan of Care Reviewed With: patient Goal: Patient-Specific Goal (Individualized) Outcome: Ongoing, Progressing Flowsheets (Taken 05/18/2024 1900) Patient/Family-Specific Goals (Include Timeframe): Patient will remain free from falls throughout this shift. Individualized Care Needs: safety Anxieties, Fears or Concerns: none Goal: Absence of Hospital-Acquired Illness or Injury Outcome: Ongoing, Progressing Goal: Optimal Comfort and Wellbeing Outcome: Ongoing, Progressing Goal: Readiness for Transition of Care Outcome: Ongoing, Progressing Problem: Infection Goal: Absence of Infection Signs and Symptoms Outcome: Ongoing, Progressing * Clinician Note - Fer Bruno - 05/18/2024 1:24 PM EDT Physical Therapy Attempt Patient Name: Muriel Chamberlain Today's Date: 05/18/2024 Patient was attempted to be seen by physical therapy 05/18/2024 for PT Evaluation however RN deferred session. RN reports that patient is experiencing max pain and is resting now and requests follow up tomorrow. Physical therapy team will follow-up when patient is available. Written by Fer Bruno on 05/18/24 at 1:24 PM. * Clinician Note - Kait Stoddard - 05/18/2024 12:59 PM EDT Occupational Therapy Attempt Patient Name: Muriel Chamberlain Today's Date: 05/18/2024 Patient was attempted to be seen by occupational therapy 05/18/2024 for OT Evaluation however RN deferred session (RN requested OT/PT allow pt to rest). Occupational therapy team will follow-up as schedule permits. Written by Kait Stoddard on 05/18/24 at 12:59 PM. * Progress Notes - Rosa Chisholm MD - 05/18/2024 12:30 PM EDT Subjective Patient was seen and examined at bedside with sister presented at that time. Patient reported improvement of her abdominal pain. Will try to get her MRI today. Meanwhile, we will keep her on IV fluids and will reassess. Objective Physical Exam Last Recorded Vitals Blood pressure 120/62, pulse (!) 111, temperature 36.8 ??C (98.3 ??F), temperature source Oral, resp. rate 20, height 1.6 m (5' 3 ), weight 75.4 kg (166 lb 3.6 oz), last menstrual period 11/17/1981, SpO2 95%. Physical Exam Vitals and nursing note reviewed. Constitutional: Appearance: She is ill-appearing. HENT: Head: Normocephalic and atraumatic. Right Ear: Tympanic membrane normal. Left Ear: Tympanic membrane normal. Nose: Nose normal. Mouth/Throat: Mouth: Mucous membranes are dry. Pharynx: Oropharynx is clear. Eyes: General: Scleral icterus present. Extraocular Movements: Extraocular movements intact. Pupils: Pupils are equal, round, and reactive to light. Cardiovascular: Rate and Rhythm: Regular rhythm. Tachycardia present. Pulses: Normal pulses. Heart sounds: Murmur heard. Pulmonary: Effort: Pulmonary effort is normal. Breath sounds: Normal breath sounds. Abdominal: General: Abdomen is flat. Bowel sounds are normal. There is no distension. Palpations: Abdomen is soft. Tenderness: There is abdominal tenderness in the right upper quadrant. Positive signs include Estrada's sign. Musculoskeletal: General: Normal range of motion. Cervical back: Normal range of motion and neck supple. Skin: General: Skin is warm and dry. Capillary Refill: Capillary refill takes less than 2 seconds. Coloration: Skin is jaundiced. Neurological: General: No focal deficit present. Mental Status: She is alert and oriented to person, place, and time. Mental status is at baseline. Psychiatric: Mood and Affect: Mood normal. Behavior: Behavior normal. Thought Content: Thought content normal. Judgment: Judgment normal. Assessment/Plan Principal Problem: Other acute pancreatitis without infection or necrosis Active Problems: Transaminitis Syncopal episodes #Acute on Chronic Transaminitis w/ Hyperbilirubinemia #Pancreatitis with possible choledocholithiasis - OSH CT PE demonstrating no PE, curvilenear and ground glass opacities in both lower lobes may represent atelectasis or pneumonia, no cardiomegaly, small amount of ascites around the right and left anterior pararenal fascias and around the liver. - Liver ultrasound - Status post cholecystectomy. No stones in the visible portions of the common bile duct. 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 Nine lymph nodes were removed and all were negative for metastatic disease, 10/04/2016 she underwent a left needle localized lumpectomy. 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, continue Gabapentin 600 mg nightly #Carotid Stenosis?/Syncopal Episodes - no clear documentation, syncopal episodes most likely 2/2 vagal response in setting of vomiting, will avoid hypotension #History of Cervical Cancer - s/p hysterectomy # Code status - DNR/DNI * Care Plan - Tania Hernandez - 05/18/2024 10:39 AM EDT Problem: Adult Inpatient Plan of Care Goal: Plan of Care Review Outcome: Ongoing, Progressing Flowsheets Taken 05/18/2024 1038 by Tania Hernandez Progress: no change Taken 05/18/2024 0258 by Chloé Mukherjee RN Plan of Care Reviewed With: patient Goal: Patient-Specific Goal (Individualized) Outcome: Ongoing, Progressing Flowsheets (Taken 05/18/2024 0700) Patient/Family-Specific Goals (Include Timeframe): Patient will remain safe from falls for whole shift Individualized Care Needs: Safety Anxieties, Fears or Concerns: None Goal: Absence of Hospital-Acquired Illness or Injury Outcome: Ongoing, Progressing Goal: Optimal Comfort and Wellbeing Outcome: Ongoing, Progressing Goal: Readiness for Transition of Care Outcome: Ongoing, Progressing Problem: Infection Goal: Absence of Infection Signs and Symptoms Outcome: Ongoing, Progressing * Consults - Carlene Rubio DO - 05/18/2024 6:40 AM EDT Reason For Consult Currently admitted for pancreatitis work up, chemotherapy scheduled on 05/22/2024 Requesting Service: Requested Date/Time: 05/18/2024 History Of Present Illness Muriel Chamberlain is a 78 y.o. female with recurrent fallopian tube cancer, s/p chemo/debulking at initial diagnosis, currently treated with Bevacizumab and Cytoxan who is admitted for abdominal pain in the setting of suspected pancreatitis, possible choledocholithiasis. Patient presented to OSH with syncopal episodes, nausea/vomiting, chest pain. CT AP demonstrating no mass, common bile duct measures 16 mm compared to 8 mm on 05/09/2022 and has probable low-density stones near the ampulla, stranding of fat around the head of the pancreas, no pancreatic masses or ductal dilatation. 2 cm right adrenal nodule is unchanged since 05/09/2022. Umbilical hernia containsa segment of the transverse colon. Patient's oncologic course otherwise significant for breast cancer, currently on anastrozole and cervical cancer, s/p hysterectomy. She Pain is persistent but well maintained with PRN medications. She remains NPO with maintenance IV fluids. Labs significant for elevated lipase & LFTs on arrival, now trending down. Past Medical History She has a past medical history of Abnormal uterine and vaginal bleeding, unspecified, Carcinoma of fallopian tube ([facility]/HCC) (09/26/2019), Cervical cancer ([facility]/HCC) (03/15/2018), Conversions - Other, COVID-19 (10/2022), Essential (primary) hypertension, antineoplastic chemo, Hypothyroidism, unspecified, Malignant neoplasm of unspecified site of left female breast (CMS/HCC), Other specified health status, Personal history of irradiation, Personal history of nicotine dependence, Personal history of other specified conditions, Pure hypercholesterolemia, unspecified, Syncope and collapse, and Thyrotoxicosis with diffuse goiter without thyrotoxic crisis or storm. Surgical History She has a past surgical history that includes Cholecystectomy (N/A); Eye surgery (N/A); Hemorrhoid surgery (N/A); Breast lumpectomy (Left, 2000); Partial hysterectomy (N/A); Rotator cuff repair (N/A); Other surgical history (N/A); Hysterectomy (N/A); and Breast lumpectomy (Left, 2016). Family History Family History Problem Relation Name Age of Onset Colon cancer Other Family history of colon cancer Breast cancer Cousin Family history of malignant neoplasm of breast Breast cancer Cousin Family history of malignant neoplasm of breast Prostate cancer Father Family history of malignant neoplasm of prostate Cardiac disorder Mother Cardiac disorder Father Cardiac disorder Brother Diabetes Sister Diabetes Brother Hypertension Sister Hypertension Brother Hypertension Other Social History She reports that she quit smoking about 26 years ago. Her smoking use included cigarettes. She started smoking about 48 years ago. She has a 11 pack-year smoking history. She has been exposed to tobacco smoke. She has quit using smokeless tobacco. She reports that she does not currently use alcohol. She reports that she does not use drugs. Allergies Calcium, Morphine, Shellfish allergy, and Sulfacetamide Medications Current Facility-Administered Medications Medication Dose Route Frequency Provider Last Rate Last Admin glucose (Glutose) 40 % oral gel 15 grams of glucose 15 grams of glucose Sublingual q15 min PRN Fer Tanner APRN, DNP Or dextrose 10 % (D10W) bolus 125 mL 125 mL Intravenous q15 min PRN Fer Tanner APRN, DNP 500 mL/hr at 05/18/24 0605 125 mL at 05/18/24 0605 Or glucagon (human recombinant) injection 1 mg 1 mg Intramuscular q15 min PRN Fer Tanner APRN, DNP dextrose 5 % and lactated Ringer's infusion 75 mL/hr Intravenous Continuous Fer Tanner APRN, DNP enoxaparin (Lovenox) syringe 40 mg 40 mg Subcutaneous Daily Fer Tanner APRN, DNP 40 mg at 05/17/24 2326 [START ON 05/20/2024] ergocalciferol (Vitamin D-2) capsule 50,000 Units 50,000 Units Oral Weekly Fer Tanner APRN, DNP gabapentin (Neurontin) capsule 600 mg 600 mg Oral Nightly Fer Tanner APRN, DNP HYDROmorphone (Dilaudid) injection 0.25 mg 0.25 mg Intravenous q2h PRN Fer Tanner APRN, DNP 0.25 mg at 05/18/24 0003 levothyroxine (Synthroid, Levoxyl) tablet 75 mcg 75 mcg Oral Daily before breakfast Fer Tanner APRN, DNP lisinopril tablet 5 mg 5 mg Oral Daily Fer Tanner APRN, DNP ondansetron (Zofran) injection 4 mg 4 mg Intravenous q6h PRN Fer Tanner APRN, DNP oxyCODONE (Roxicodone) immediate release tablet 5 mg 5 mg Oral q6h PRN Fer Tanner APRN, DNP piperacillin-tazobactam (Zosyn) injection 4.5 g 4.5 g Intravenous q6h Fer Tanner APRN, DNP prochlorperazine (Compazine) injection 2.5 mg 2.5 mg Intravenous q6h PRN Fer Tanner APRN, DNP Or prochlorperazine (Compazine) injection 5 mg 5 mg Intramuscular q6h PRN Fer Tanner APRN, DNP sodium chloride 0.9 % flush 10 mL 10 mL Intravenous q12h Fer Tanner APRN, DNP 10 mL at 05/17/24 2215 And sodium chloride 0.9 % flush 10 mL 10 mL Intravenous PRN Fer Tanner APRN, DNP Review of Systems Review of Systems Constitutional: Negative for chills and fever. Respiratory: Negative for shortness of breath. Cardiovascular: Negative for chest pain. Gastrointestinal: Positive for abdominal distention, abdominal pain, constipation and nausea. Negative for vomiting. Genitourinary: Positive for vaginal bleeding (consistent with history). Physical Exam Physical Exam Constitutional: Appearance: She is obese. HENT: Head: Normocephalic and atraumatic. Pulmonary: Effort: Pulmonary effort is normal. Abdominal: General: There is distension. Palpations: Abdomen is soft. Tenderness: There is abdominal tenderness. Hernia: A hernia is present. Skin: General: Skin is warm and dry. Neurological: Mental Status: She is alert. Last Recorded Vitals Blood pressure 126/64, pulse 105, temperature 36.7 ??C (98.1 ??F), temperature source Oral, resp. rate 20, height 1.6 m (5' 3 ), weight 75.4 kg (166 lb 3.6 oz), last menstrual period 11/17/1981, VqP044%. Relevant Results CTAP 04/22/2024: FINDINGS: Chest: Lymph Nodes and Mediastinum: No [...] intrahepatic biliary ductal ectasia. Unremarkable spleen, pancreas. Redemonstrationof right adrenal gland 16 mm nodule and [...] of vaginal cuff lesion measuring 3.6 x 2cm, unchanged (series 3 image 261). Changes of [...] external iliac chain lymph node. Remaining retroperitoneal andpelvic adenopathy have decreased in size. Assessment/Plan Principal Problem: Other acute pancreatitis without infection or necrosis Active Problems: Transaminitis Syncopal episodes 78yo female with recurrent right serous fallopian tube cancer currently on Dana & Cytoxan admitted for abdominal pain in the setting of suspected pancreatitis, choledocholithiasis. #Recurrent Fallopian Tube Cancer - Hold Cytoxan until current pancreatitis episode is resolved as it is metabolized by the liver andmay contribute to transaminitis. Do not continue on discharge home until seen for follow up in Dr. Hutchins's office. - Will delay scheduled Dana chemo treatment 05/22 until medically stable from acute illness. - CA125 wnl - CT 04/22: stable to improved disease - CT from OSH not available at time of consult. - [facility] will continue to follow patient. #Acute on Chronic Transaminitis w/ Hyperbilirubinemia #Pancreatitis #Possible Choledocholithiasis - Care per primary team. We appreciate your consult and look forward to working together for this patient's care. Carlene Rubio DO PGY-3 Obstetrics & Gynecology Cosigned by Penelope Carmona MD at 05/19/2024 8:29 AM EDT Associated attestation - Penelope Carmona MD - 05/19/2024 8:29 AM EDT I saw and evaluated the patient with the resident/fellow. I discussed the case with the resident/fellow and agree with the findings and plan as documented. * Care Plan - Chloé Mukherjee RN - 05/18/2024 2:59 AM EDT Problem: Adult Inpatient Plan of Care Goal: Plan of Care Review Outcome: Ongoing, Progressing Flowsheets (Taken 05/18/2024 0258) Plan of Care Reviewed With: patient Goal: Patient-Specific Goal (Individualized) Outcome: Ongoing, Progressing Flowsheets (Taken 05/18/2024 0258) Patient/Family-Specific Goals (Include Timeframe): Patient will remain free from falls throughout this shift. Individualized Care Needs: safety Anxieties, Fears or Concerns: none Goal: Absence of Hospital-Acquired Illness or Injury Outcome: Ongoing, Progressing Goal: Optimal Comfort and Wellbeing Outcome: Ongoing, Progressing Goal: Readiness for Transition of Care Outcome: Ongoing, Progressing * H&P - Fer Tanner APRN, JOCELYN - 05/17/2024 7:49 PM EDT Chief Complaint: Abdominal pain, nausea and vomiting History of Present Illness: This is a 78 year old female with PMHx of recurrent right serous fallopian tube cancer s/p chemo/debulking, currently on Dana and Cytoxan, left breast cancer s/p lumpectomy and axillary lymph node dissection on Anastrozole, chemo induced neuropathy, and cervical cancer s/p hysterectomy who presentedto OSH on 05/16/24 with epigastric abdominal pain and chest pressure since the night of 05/15/24. At OSH, was noted to be severely hypertensive 221/106. She was afebrile. It is unclear how much fluidshe received prior to arrival. Labs notable for WBC 4.3, Hgb 15, PLT 140, INR 1.02, anion gap 12.7,BUN 29, sCr 0.90, calcium 9.9, tbili 2.9, direct 2.2, AST 879, ALT 502, Alk phos 25, Lipase 17,189,Trop WNL. Underwent CT PE demonstrating no PE, curvilenear and ground glass opacities in both lowerlobes may represent atelectasis or pneumonia, no cardiomegaly, small amount of ascites around the right and left anterior pararenal fascias and around the liver. CT AP demonstrating no mass, common bile duct measures 16 mm compared to 8 mm on 05/09/2022 and has probable low-density stones near the a mpulla, stranding of fat around the head of the pancreas, no pancreatic masses or ductal dilatation. 2 cm right adrenal nodule is unchanged since 05/09/2022. Umbilical hernia contains a segment of the transverse colon On exam, patient states that the pain and associated symptoms began around 1999 after eating fried chicken and baked beans. The pain radiates around the torso, in which she rates as a 5 out of 10. She states that it does not radiate to the back but she is having difficulties laying flat and sittingupright. She endorsed 2 separate syncopal episodes that occurred while vomiting. She denies weight l oss and night sweats. Further denies fever, but does have perceptive chills. She states that she was recently around her sister who is sick with unknown illness. She has not ate since the event and has not drank anything since being hospitalized. She is making urine and her last BM was on 05/16. She is supposed to receive chemo next Monday. She has no edema on exam. She is on 2L but unclear ifneeded. Her lung sounds are clear and diminished in the bases. She has +murphys on exam. She is HDSand does not meet SIRS criteria. Patient will be admitted to for further work up and management. Review of Systems Constitutional: Positive for activity change and chills. Negative for fatigue, fever and unexpectedweight change. HENT: Negative for congestion, rhinorrhea and sinus pain. Eyes: Negative. Respiratory: Positive for shortness of breath (mild). Negative for cough. Cardiovascular: Negative for chest pain, palpitations and leg swelling. Gastrointestinal: Positive for abdominal pain. Negative for blood in stool, constipation, diarrhea,nausea and vomiting. Endocrine: Negative. Genitourinary: Negative for dysuria, frequency and urgency. Musculoskeletal: Negative. Skin: Positive for color change (mild jaundice). Negative for pallor and rash. Allergic/Immunologic: Negative. Neurological: Positive for syncope. Negative for dizziness, light-headedness and headaches. Hematological: Negative. Psychiatric/Behavioral: Negative. Past Medical History: Past Medical History: Diagnosis Date Abnormal uterine and vaginal bleeding, unspecified Abnormal vaginal bleeding Carcinoma of fallopian tube ([facility]) 09/26/2019 Malignant neoplasm of unspecified fallopian tube Cervical cancer (CMS/[facility]) 03/15/2018 Malignant neoplasm of cervix uteri, unspecified Conversions - Other No illicit drug use COVID-19 10/2022 Essential (primary) hypertension Hypertension Hx antineoplastic chemo Hypothyroidism, unspecified Hypothyroidism Malignant neoplasm of unspecified site of left female breast (CMS/HCC) Malignant neoplasm of left breast Other specified health status Rarely consumes alcohol Personal history of irradiation Personal history of nicotine dependence Former light tobacco smoker Personal history of other specified conditions History of syncope Pure hypercholesterolemia, unspecified Hypercholesterolemia Syncope and collapse Cardiac syncope Thyrotoxicosis with diffuse goiter without thyrotoxic crisis or storm Graves' disease Past Surgical History: Past Surgical History: Procedure Laterality Date BREAST LUMPECTOMY Left 2000 malignant BREAST LUMPECTOMY Left 2016 malignant CHOLECYSTECTOMY N/A Cholecystectomy from [facility] EYE SURGERY N/A Eye surgery from [facility] HEMORRHOID SURGERY N/A Hemorrhoidectomy from [facility] HYSTERECTOMY N/A Hysterectomy from [facility] OTHER SURGICAL HISTORY N/A Surgical removal of lesion of finger from [facility] PARTIAL HYSTERECTOMY N/A Partial hysterectomy from [facility] ROTATOR CUFF REPAIR N/A Repair of rotator cuff of right shoulder from [facility] Social History Tobacco Use Smoking status: Former Current packs/day: 0.00 Average packs/day: 0.5 packs/day for 22.0 years (11.0 ttl pk-yrs) Types: Cigarettes Start date: 1975 Quit date: 1997 Years since quittin.8 Passive exposure: Past Smokeless tobacco: Former Vaping Use Vaping status: Never Used Substance Use Topics Alcohol use: Not Currently Drug use: Never Family History: Family History Problem Relation Name Age of Onset Colon cancer Other Family history of colon cancer Breast cancer Cousin Family history of malignant neoplasm of breast Breast cancer Cousin Family history of malignant neoplasm of breast Prostate cancer Father Family history of malignant neoplasm of prostate Cardiac disorder Mother Cardiac disorder Father Cardiac disorder Brother Diabetes Sister Diabetes Brother Hypertension Sister Hypertension Brother Hypertension Other Allergies: Allergies Allergen Reactions Calcium Unknown - Patient states they do not know rxn details and Other - please document in the comment field arthritic pain in hands Morphine Hives and Itching Shellfish Allergy Other - please document in the comment field Nausea and Vomiting, I pass out Sulfacetamide Other - please document in the comment field and Unknown - Patient states they do notknow rxn details nausea, vomitting Medications: Current Facility-Administered Medications: [START ON 05/20/2024] ergocalciferol (Vitamin D-2) capsule 50,000 Units, 50,000 Units, Oral, Weekly, Fer Tanner, TABLET MAKING MACHINE OPERATOR, DNP [START ON 05/18/2024] gabapentin (Neurontin) capsule 600 mg, 600 mg, Oral, Nightly, Fer Tanner APRN, DNP HYDROmorphone (Dilaudid) injection 0.25 mg, 0.25 mg, Intravenous, q2h PRN, Fer Tanner APRN, DNP lactated Ringer's infusion, 125 mL/hr, Intravenous, Continuous, Fer Tanner APRN, DNP [START ON 05/18/2024] levothyroxine (Synthroid, Levoxyl) tablet 75 mcg, 75 mcg, Oral, Daily before breakfast, Fer Tanner APRN, DNP [START ON 05/18/2024] lisinopril tablet 5 mg, 5 mg, Oral, Daily, Fer Tanner APRN, DNP ondansetron ODT (Zofran-ODT) disintegrating tablet 4 mg, 4 mg, Oral, q6h PRN OR ondansetron (Zofran) injection 4 mg, 4 mg, Intravenous, q6h PRN OR ondansetron (Zofran) 4 MG/5ML solution 4 mg,4 mg, Oral, q6h PRN, Fer Tanner APRN, DNP oxyCODONE (Roxicodone) immediate release tablet 5 mg, 5 mg, Oral, q6h PRN, Fer Tanner APRN, DNP prochlorperazine (Compazine) tablet 5 mg, 5 mg, Oral, q6h PRN OR prochlorperazine (Compazine) suppository 25 mg, 25 mg, Rectal, q12h PRN OR prochlorperazine (Compazine) injection 2.5 mg, 2.5 mg, Intravenous, q6h PRN OR prochlorperazine (Compazine) injection 5 mg, 5 mg, Intramuscular, q6h PRN, Fer Tanner APRN, DNP Insert peripheral IV, , , Once AND Saline lock IV, , , Once AND sodium chloride 0.9 % flush10 mL, 10 mL, Intravenous, q12h AND sodium chloride 0.9 % flush 10 mL, 10 mL, Intravenous, PRN,Tka, Fer W, TABLET MAKING MACHINE OPERATOR, DNP Objective: Last Recorded Vitals Blood pressure (!) 143/67, pulse 100, temperature 37.2 ??C (98.9 ??F), temperature source Oral, resp. rate 20, last menstrual period 11/17/1981, SpO2 98%. Physical Exam Vitals and nursing note reviewed. Constitutional: Appearance: She is ill-appearing. HENT: Head: Normocephalic and atraumatic. Right Ear: Tympanic membrane normal. Left Ear: Tympanic membrane normal. Nose: Nose normal. Mouth/Throat: Mouth: Mucous membranes are dry. Pharynx: Oropharynx is clear. Eyes: General: Scleral icterus present. Extraocular Movements: Extraocular movements intact. Pupils: Pupils are equal, round, and reactive to light. Cardiovascular: Rate and Rhythm: Regular rhythm. Tachycardia present. Pulses: Normal pulses. Heart sounds: Murmur heard. Pulmonary: Effort: Pulmonary effort is normal. Breath sounds: Normal breath sounds. Abdominal: General: Abdomen is flat. Bowel sounds are normal. There is no distension. Palpations: Abdomen is soft. Tenderness: There is abdominal tenderness in the right upper quadrant. Positive signs include Estrada's sign. Musculoskeletal: General: Normal range of motion. Cervical back: Normal range of motion and neck supple. Skin: General: Skin is warm and dry. Capillary Refill: Capillary refill takes less than 2 seconds. Coloration: Skin is jaundiced. Neurological: General: No focal deficit present. Mental Status: She is alert and oriented to person, place, and time. Mental status is at baseline. Psychiatric: Mood and Affect: Mood normal. Behavior: Behavior normal. Thought Content: Thought content normal. Judgment: Judgment normal. Labs reviewed - Relevant Results No lab exists for component: ALB Personally reviewed and agree with following findings Assessment/Plan Principal Problem: Other acute pancreatitis without infection or necrosis Active Problems: Transaminitis Syncopal episodes This is a 78 year old female with PMHx of recurrent right serous fallopian tube cancer s/p chemo/debulking, currently on Dana and Cytoxan, left breast cancer s/p lumpectomy and axillary lymph node dissection on Anastrozole, chemo induced neuropathy, and cervical cancer s/p hysterectomy who presentedto OSH on 05/16/24 with abdominal pain and chest pressure since the night of 05/15/24. She endorsed 2 separate syncopal episodes that occurred while vomiting. Assessment and Plan #Acute on Chronic Transaminitis w/ Hyperbilirubinemia #Pancreatitis #Possible Choledocholithiasis - Presented to OSH on 05/16/24 with epigastric abdominal pain and chest pressure since the night of05/15/24, associated nausea and vomiting, no fever but + chills - Labs notable for WBC 4.3, Hgb 15, PLT 140, INR 1.02, anion gap 12.7, BUN 29, sCr 0.90, calcium 9.9, tbili 2.9, direct 2.2, AST 879, ALT 502, Alk phos 25, Lipase 17,189, Trop WNL. - OSH CT PE demonstrating no PE, curvilenear and ground glass opacities in both lower lobes may represent atelectasis or pneumonia, no cardiomegaly, small amount of ascites around the right and left anterior pararenal fascias and around the liver. - CT AP demonstrating no mass, common bile duct measures 16 mm compared to 8 mm on 05/09/2022 and has probable low-density stones near the ampulla, stranding of fat around the head of the pancreas, no pancreatic masses or ductal dilatation. 2 cm right adrenal nodule is unchanged since 05/09/2022. Umbilical hernia contains a segment of the transverse colon - other etiologies could include metastatic cancer, furosemide use, infection, autoimmune - AST 91 ALT 148 alkphos 173 tbili 0.4 on 04/08/24, was previously elevated in September as well, thought to be 2/2 to chemo Plan - STAT RUQUS - Infectious work up ( NRP, COVID, CMV, EBV, Hepatitis, HIV, BCX1) - Comprehensive UDS - Triglycerides, CRP, LDH, GGT, Lipid panel, A1c pending - Repeat CMP in the morning - MIVF at 125 ml/hr - Hydromorphone IV PRN - FS Q6 while NPO - If signs of infection, initiate Pip/tazo 4.5g IV every 6 hours - Antiemetics PRN - NPO, sips with medications - MRCP ordered - Consult GI in the morning #Hypomagnesemia - Mag 1.5 Plan - Replete IV Chronic #Recurrent right serous fallopian tube cancer - locally recurrent (pelvic mass w/ erosion into vagina), s/p chemo/debulking at initial diagnosis, had additional chemo for recurrence followed by radiation for additional recurrence, on oral Cytoxan and IV Dana every 3 weeks (last 04/29/24), CA125 WNL,CT 04/22/2024: Stable to improved disease in most areas, resume chemo after resolution of acute illness, consider consult to Position Clerk-Onc in the morning #Stage IA left breast cancer - 05/28/2001 underwent a left lumpectomy and axillary lymph node dissection. Nine lymph nodes were removed and all were negative for metastatic disease, 10/04/2016 she underwent a left needle localized lumpectomy. 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, continue Gabapentin 600 mg nightly #Carotid Stenosis?/Syncopal Episodes - no clear documentation, syncopal episodes most likely 2/2 vagal response in setting of vomiting, will avoid hypotension #History of Cervical Cancer - s/p hysterectomy Fluids: MIVF DVT: Diet:NPO diet NPO except: Sips with meds Code status - DNR/DNI Family contact - Extended Emergency Contact Information Primary Emergency Contact: Arianne Chamberlain Mobile Relation: Sister Preferred language: Turkish Director Of Vital Statistics needed? No Fer Tanner APRN [facility] Medicine Pager [phone] Note to patient: The 21st Century Cures Act makes medical notes like these available to patients inthe interest of transparency. However, be advised this is a medical document. It is intended as peer to peer communication. It is written in medical language and may contain abbreviations or verbiagethat are unfamiliar. It may appear blunt or direct. Medical documents are intended to carry relevant information, facts as evident, and the clinical opinion of the practitioner. documented in this encounter Plan of Treatment Upcoming Encounters Date Type Department Care Team (Late st Contact Info) Description 08/05/2024 8:00 AM EST Office Visit [facility] [address] [facility] [address] [place] [address] Penelope Carmona MD [address] [facility] May[address] Lai [facility] [address] [place] [phone] 08/05/2024 9:30 AM EST Appointment [facility] [address] [place] [phone] 02/26/2025 9:30 AM EDT Appointment [facility] [place] [address] [address] [facility] [address] [place] [address] 02/26/2025 10:30 AM EDT Office Visit [facility] [address] [facility] [place] [phone] Berenice Resendez, TABLET MAKING MACHINE OPERATOR [address] [facility] Joelle [facility] [address] [place] [phone] documented as of this encounter Procedures Procedure Name Priority Date/Time Associated Diagnosis Comments CBC W/O DIFFERENTIAL Routine 05/23/2024 2:52 AM EDT MAGNESIUM, PLASMA Routine 05/23/2024 2:5 2 AM EDT RENAL FUNCTION PANEL, PLASMA Routine 05/23/2024 2:52 AM EDT POCT GLUCOSE METER UNSOLICITED RESULTS Routine 05/22/2024 7:19 AM EDT CBC W/O DIFFERENTIAL Routine 05/22/2024 5:39 AM EDT PHOSPHORUS, PLASMA Routine 05/22/2024 5: 39 AM EDT MAGNESIUM, PLASMA Routine 05/22/2024 5:3 9 AM EDT COMPREHENSIVE METABOLIC PANEL, PLASMA Routine 05/22/2024 5:39 AM EDT POCT GLUCOSE METER UNSOLICITED RESULTS Routine 05/21/2024 9:24 PM EDT POCT GLUCOSE METER UNSOLICITED RESULTS Routine 05/21/2024 8:52 PM EDT POCT GLUCOSE METER UNSOLICITED RESULTS Routine 05/21/2024 7:50 PM EDT POCT GLUCOSE METER UNSOLICITED RESULTS Routine 05/21/2024 6:42 PM EDT CBC W/O DIFFERENTIAL Routine 05/21/2024 4:55 AM EDT PHOSPHORUS, PLASMA Routine 05/21/2024 4: 55 AM EDT MAGNESIUM, PLASMA Routine 05/21/2024 4:5 5 AM EDT COMPREHENSIVE METABOLIC PANEL, PLASMA Routine 05/21/2024 4:55 AM EDT CBC W/O DIFFERENTIAL Routine 05/20/2024 9:04 AM EDT PHOSPHORUS, PLASMA Routine 05/20/2024 9: 04 AM EDT MAGNESIUM, PLASMA Routine 05/20/2024 9:0 4 AM EDT COMPREHENSIVE METABOLIC PANEL, PLASMA Routine 05/20/2024 9:04 AM EDT US ABDOMEN [...] VIEW Routine 05/19/2024 9:4 5 AM EDT CBC WITH AUTO DIFFERENTIAL STAT 05/19/2024 9:20 AM EDT PHOSPHORUS, PLASMA STAT 05/19/2024 9: 20 AM EDT MAGNESIUM, PLASMA STAT 05/19/2024 9:2 0 AM EDT COMPREHENSIVE METABOLIC PANEL, PLASMA STAT 05/19/2024 9:20 AM EDT POCT GLUCOSE [...] 05/18/2024 5:55 AM EDT PERIPHERAL BLOOD SMEAR, PSMEAR Routine 05/18/2024 2:35 AM EDT TROPONIN T, HIGH SENSITIVITY, 2 HOUR, PLASMA Timed 05/18/2024 2:35 AM EDT PERIPHERAL BLOOD SMEAR, PATHOLOGIST INTERPRETATION Routine 05/18/2024 2:35 AM EDT PROTHROMBIN TIME(PT) / INR Routine 05/18/2024 2:35 AM EDT TRIGLYCERIDES, PLASMA Add-On 05/18/2024 2:35 AM EDT PHOSPHORUS, PLASMA Routine 05/18/2024 2: 35 AM EDT MAGNESIUM, PLASMA Routine 05/18/2024 2:3 5 AM EDT LIPASE, PLASMA Add-On 05/18/2024 2:35 AM EDT FOLATE, SERUM Add-On 05/18/2024 2:35 AM EDT COMPREHENSIVE METABOLIC PANEL, PLASMA Routine 05/18/2024 2:35 AM EDT URINALYSIS MICROSCOPIC FOR UA REFLEX Routine 05/18/2024 1:23 AM EDT COMPREHENSIVE URINE DRUG SCREENING,QUALITATIVE ASSAY, >= 27 DRUG CLASSES Routine 05/18/2024 1:23 AM EDT URINALYSIS WITH REFLEX MICROSCOPIC Routine 05/18/2024 1:23 AM EDT POCT GLUCOSE METER UNSOLICITED RESULTS Routine 05/17/2024 11:43 PM EDT US ABDOMEN FOCUSED REGION STAT 05/17/2024 11:01 PM EDT ECG ADULT Routine 05/17/2024 9:45 PM EDT SARS COV-2/COVID-19 BY PCR - RAPID Routine 05/17/2024 9:27 PM EDT NASOPHARYNGEAL RESPIRATORY PANEL Routine 05/17/2024 9:27 PM EDT HIV 1/2 ANTIBODY/ANTIGEN SCREEN W/REFLEX TO HIV 1/2 ANTIBODY DIFFERENTIATION Routine 05/17/2024 9:24 PM EDT TROPONIN T, HIGH SENSITIVITY, 0 HOUR, PLASMA, REFLEX TO 2 HOUR STAT 05/17/2024 9:24 PM EDT ROJELIO COELLO VIRUS (EBV) QUANTITATIVE PCR Routine 05/17/2024 9:24 PM EDT CYTOMEGALOVIRUS (CMV) QUANTITATIVE PCR Routine 05/17/2024 9:24 PM EDT HIV 1/2 ANTIBODY/ANTIGEN SCREEN WITH REFLEX TO HIV I/II DIFFERENTIATION Routine 05/17/2024 9:24 PM EDT ACUTE HEPATITIS PANEL Routine 05/17/2024 9:24 PM EDT BLOOD CULTURE (AEROBIC/ANAEROBIC SET) STAT 05/17/2024 9:24 PM EDT CBC WITH AUTO DIFFERENTIAL STAT 05/17/2024 9:24 PM EDT C-REACTIVE PROTEIN, PLASMA Routine 05/17/2024 9:24 PM EDT PHOSPHORUS, PLASMA STAT 05/17/2024 9: 24 PM EDT MAGNESIUM, PLASMA STAT 05/17/2024 9:2 4 PM EDT LIPASE, PLASMA STAT 05/17/2024 9:24 PM EDT LACTATE DEHYDROGENASE, PLASMA Routine 05/17/2024 9:24 PM EDT HEMOGLOBIN A1C Add-On 05/17/2024 9:24 PM EDT GAMMA GLUTAMYLTRANSFERASE, PLASMA Routine 05/17/2024 9:24 PM EDT FERRITIN, SERUM Routine 05/17/2024 9:24 PM EDT VITAMIN B12, SERUM Add-On 05/17/2024 9: 24 PM EDT CONJUGATED BILIRUBIN, PLASMA Add-On 05/17/2024 9:24 PM EDT LIPID PROFILE, PLASMA STAT 05/17/2024 9:24 PM EDT COMPREHENSIVE METABOLIC PANEL, PLASMA STAT 05/17/2024 9:24 PM EDT XR CHEST 1 VIEW STAT 05/17/2024 9:20 PM EDT documented in this encounter Results * Magnesium (05/23/2024 2:52 AM EDT) [facility] Magnesium, Plasma 1.9 1.9 - 2.4 mg/dL 05/23/2024 3:47 AM EDT [facility] Blood Venous blood specimen / Unknown Venipuncture / Unknown 05/23/2024 2:52 AM EDT 05/23/2024 3:18 AM EDT us Rosa Chisholm MD LAB BLOOD ORDERABLES Final R esult [facility] [address] [place] [address] * (ABNORMAL) CBC W/O Differential (05/23/2024 2:52 AM EDT) [facility] WBC Count 8.40 3.70 - 10.30 10*3/uL LAB HEMATOLOGY METHOD 05/23/2024 3:28 AM EDT [facility] RBC Count 2.72(L) 3.90 - 5.20 10*6/uL LAB HEMATOLOGY METHOD 05/23/2024 3:28 AM EDT [facility] HGB 9.9(L) 11.2 - 15.7 g/dL LAB HEMATOLOGY METHOD 05/23/2024 3:28 AM EDT [facility] HCT 29.2(L) 34.0 - 45.0 % LAB HEMATOLOGY METHOD 05/23/2024 3:28 AM EDT [facility] Platelet Count 96(L) 155 - 369 10*3/uL LAB HEMATOLOGY METHOD 05/23/2024 3:28 AM EDT [facility] MCV 107(H) 79 - 98 fL LAB HEMATOLOGY METHOD 05/23/2024 3:28 AM EDT [facility] MCH 36.4(H) 26.0 - 32.0 pg LAB HEMATOLOGY METHOD 05/23/2024 3:28 AM EDT [facility] MCHC 33.9 30.7 - 35.5 g/dL LAB HEMATOLOGY METHOD 05/23/2024 3:28 AM EDT [facility] RDW 16.2(H) 11.5 - 14.5 % LAB HEMATOLOGY METHOD 05/23/2024 3:28 AM EDT [facility] MPV 10.4 8.8 - 12.5 fL LAB HEMATOLOGY METHOD 05/23/2024 3:28 AM EDT [facility] nRBC 0.0 <=0.0 per 100 WBCs LAB HEMATOLOGY METHOD 05/23/2024 3:28 AM EDT [facility] Blood Venous blood specimen / Unknown Venipuncture / Unknown 05/23/2024 2:52 AM EDT 05/23/2024 3:18 AM EDT Lizzeth Guevara MD LAB BLOOD ORDERA BLES Final Result [facility] [address] [place] [address] * (ABNORMAL) Renal Function Panel, Plasma (05/23/2024 2:52 AM EDT) [facility] Glucose, Plasma 71(L) 74 - 99 mg/dL 05/23/2024 3:47 AM EDT [facility] BUN, Plasma 19 8 - 23 mg/dL 05/23/2024 3:47 AM EDT [facility] Creatinine, Plasma 0.74 0.60 - 1.10 mg/dL 05/23/2024 3:47 AM EDT [facility] BUN/Creatinine Ratio 26 05/23/2024 3:47 AM EDT [facility] Sodium, Plasma 132(L) 136 - 145 mmol/L 05/23/2024 3:47 AM EDT [facility] Potassium, Plasma 4.6 3.6 - 4.9 mmol/L 05/23/2024 3:47 AM EDT [facility] Chloride, Plasma 100 97 - 107 mmol/L 05/23/2024 3:47 AM EDT [facility] CO2, Plasma 23 22 - 29 mmol/L 05/23/2024 3:47 AM EDT [facility] Anion Gap 9 6 - 16 mmol/L 05/23/2024 3:47 AM EDT [facility] Total Calcium, Plasma 7.5(L) 8.9 - 10.2 mg/dL 05/23/2024 3:47 AM EDT [facility] Phosphorus, Plasma 3.7 2.5 - 4.5 mg/dL 05/23/2024 3:47 AM EDT [facility] Albumin, Plasma 2.3(L) 3.5 - 5.2 g/dL 05/23/2024 3:47 AM EDT [facility] eGFRcr 82.9 mL/min/1.7 3m*2 05/23/2024 3:47 AM EDT [facility] Comment:Reported eGFRcr in m L/min/1.73m2 is based the CKD-EPI 2020 equation that does not use a race coefficient. Blood Venous blood specimen / Unknown Venipuncture / Unknown 05/23/2024 2:52 AM EDT 05/23/2024 3:18 AM EDT Lizzeth Guevara MD LAB BLOOD ORDERA BLES Final Result [facility] [address] [place] [address] * (ABNORMAL) POCT glucose meter (05/22/2024 7:19 AM EDT) [facility] POCT Glucose 111(H) 74 - 99 mg/dL 05/22/2024 7:21 AM EDT [facility] Comment:Accuracy of a glucos e [...] Comment 05/22/2024 7:21 AM EDT [facility] Photographic Equipment Assembler ID Wanda [email or web address] [id number] 7:21 AM EDT [facility] Device ID [id number] 05/22/2024 7:21 AM EDT [facility] Specimen Type POC Capillary 05/22/2024 7:21 AM EDT [facility] Blood Capillary blood specimen / Unknown 05/22/2024 7:19 AM EDT 05/22/2024 7:21 AM EDT us Lizzeth Guevara MD LAB POIN T OF CARE TEST DOCKED DEVICE UNSOLICITED RESULTS Final Result Performing Organization Address [facility] Co de Phone Number [facility] [address] [place] [address] * (ABNORMAL) Phosphorus (05/22/2024 5:39 AM EDT) [facility] Phosphorus, Plasma 1.4(L) 2.5 - 4.5 mg/dL 05/22/2024 6:40 AM EDT [facility] Blood Venous blood specimen / Unknown Venipuncture / Unknown 05/22/2024 5:39 AM EDT 05/22/2024 6:13 AM EDT us Rosa Chisholm MD LAB BLOOD ORDERABLES Final R esult Performing Organization Address City/[facility] Co de Phone Number [facility] [address] [place] [address] * (ABNORMAL) Magnesium (05/22/2024 5:39 AM EDT) Magnesium, Plasma 1.8(L) 1.9 - 2.4 mg/dL 05/22/2024 6:40 AM EDT [facility] Blood Venous blood specimen / Unknown Venipuncture / Unknown 05/22/2024 5:39 AM EDT 05/22/2024 6:13 AM EDT us Rosa Chisholm MD LAB BLOOD ORDERABLES Final R esult [facility] [address] [place] [address] * (ABNORMAL) Comprehensive metabolic panel (05/22/2024 5:39 AM EDT) Glucose, Plasma 77 74 - 99 mg/dL 05/22/2024 6:40 AM EDT [facility] BUN, Plasma 19 8 - 23 mg/dL 05/22/2024 6:40 AM EDT [facility] Creatinine, Plasma 0.67 0.60 - 1.10 mg/dL 05/22/2024 6:40 AM EDT [facility] BUN/Creatinine Ratio 28 05/22/2024 6:40 AM EDT [facility] Sodium, Plasma 135(L) 136 - 145 mmol/L 05/22/2024 6:40 AM EDT [facility] Potassium, Plasma 4.0 3.6 - 4.9 mmol/L 05/22/2024 6:40 AM EDT [facility] Chloride, Plasma 102 97 - 107 mmol/L 05/22/2024 6:40 AM EDT [facility] CO2, Plasma 24 22 - 29 mmol/L 05/22/2024 6:40 AM EDT [facility] Anion Gap 9 6 - 16 mmol/L 05/22/2024 6:40 AM EDT [facility] Total Calcium, Plasma 7.5(L) 8.9 - 10.2 mg/dL 05/22/2024 6:40 AM EDT [facility] Total Protein 5.5(L) 6.3 - 7.9 g/dL 05/22/2024 6:40 AM EDT [facility] Albumin, Plasma 2.5(L) 3.5 - 5.2 g/dL 05/22/2024 6:40 AM EDT [facility] AST, Plasma 20 10 - 35 U/L 05/22/2024 6:40 AM EDT [facility] ALT, Plasma 40(H) 10 - 35 U/L 05/22/2024 6:40 AM EDT [facility] Alkaline Phosphatase, Plasma 120 46 - 142 U/L 05/22/2024 6:40 AM EDT [facility] Total Bilirubin, Plasma 0.6 0.2 - 1.1 mg/dL 05/22/2024 6:40 AM EDT [facility] eGFRcr 89.6 mL/min/1.7 3m*2 05/22/2024 6:40 AM EDT [facility] Comment:Reported eGFRcr in m L/min/1.73m2 is based the CKD-EPI 2020 equation that does not use a race coefficient. Blood Venous blood specimen / Unknown Venipuncture / Unknown 05/22/2024 5:39 AM EDT 05/22/2024 6:13 AM EDT us Rosa Chisholm MD LAB BLOOD ORDERABLES Final R esult [facility] [address] [place] [address] * (ABNORMAL) CBC W/O Differential (05/22/2024 5:39 AM EDT) WBC Count 7.65 3.70 - 10.30 10*3/uL LAB HEMATOLOGY METHOD 05/22/2024 6:22 AM EDT [facility] RBC Count 2.92(L) 3.90 - 5.20 10*6/uL LAB HEMATOLOGY METHOD 05/22/2024 6:22 AM EDT [facility] HGB 10.6(L) 11.2 - 15.7 g/dL LAB HEMATOLOGY METHOD 05/22/2024 6:22 AM EDT [facility] HCT 31.5(L) 34.0 - 45.0 % LAB HEMATOLOGY METHOD 05/22/2024 6:22 AM EDT [facility] Platelet Count 112(L) 155 - 369 10*3/uL LAB HEMATOLOGY METHOD 05/22/2024 6:22 AM EDT [facility] MCV 108(H) 79 - 98 fL LAB HEMATOLOGY METHOD 05/22/2024 6:22 AM EDT [facility] MCH 36.3(H) 26.0 - 32.0 pg LAB HEMATOLOGY METHOD 05/22/2024 6:22 AM EDT [facility] MCHC 33.7 30.7 - 35.5 g/dL LAB HEMATOLOGY METHOD 05/22/2024 6:22 AM EDT [facility] RDW 16.0(H) 11.5 - 14.5 % LAB HEMATOLOGY METHOD 05/22/2024 6:22 AM EDT [facility] MPV 10.5 8.8 - 12.5 fL LAB HEMATOLOGY METHOD 05/22/2024 6:22 AM EDT [facility] nRBC 0.0 <=0.0 per 100 WBCs LAB HEMATOLOGY METHOD 05/22/2024 6:22 AM EDT [facility] Blood Venous blood specimen / Unknown Venipuncture / Unknown 05/22/2024 5:39 AM EDT 05/22/2024 6:13 AM EDT us Rosa Chisholm MD LAB BLOOD ORDERABLES Final R esult [facility] [address] [place] [address] * (ABNORMAL) POCT glucose meter (05/21/2024 9:24 PM EDT) POCT Glucose 135(H) 74 - 99 mg/dL 05/21/2024 9:25 PM EDT [facility] Comment:Accuracy of a glucos e result obtained from a capillary whole blood specimen relies upon adequate, non-compromised capillary blood flow. If the capillary glucose result is not consistent with the patient's clinical signs and symptoms, glucose testing should be repeated with either an arterial or venous sample on the glucometer or sent to the main labortory for testing. Comment 05/21/2024 9:25 PM EDT [facility] Photographic Equipment Assembler ID Wanda Galdamez 9:25 PM EDT [facility] Device ID [id number] 05/21/2024 9:25 PM EDT [facility] Specimen Type POC Capillary 05/21/2024 9:25 PM EDT [facility] Blood Capillary blood specimen / Unknown 05/21/2024 9:24 PM EDT 05/21/2024 9:25 PM EDT Lizzeth Guevara MD LAB POIN T OF CARE TEST DOCKED DEVICE UNSOLICITED RESULTS Final Result Performing Organization Address City/[facility] Co de Phone Number [facility] [address] [place] [address] * (ABNORMAL) POCT glucose meter (05/21/2024 8:52 PM EDT) POCT Glucose 68(L) 74 - 99 mg/dL 05/21/2024 8:53 PM EDT [facility] Comment:Accuracy of a glucos e result obtained from a capillary whole blood specimen relies upon adequate, non-compromised capillary blood flow. If the capillary glucose result is not consistent with the patient's clinical signs and symptoms, glucose testing should be repeated with either an arterial or venous sample on the glucometer or sent to the main labortory for testing. Comment 05/21/2024 8:53 PM EDT [facility] Photographic Equipment Assembler ID Wanda Galdamez 8:53 PM EDT [facility] Device ID [id number] 05/21/2024 8:53 PM EDT [facility] Specimen Type POC Capillary 05/21/2024 8:53 PM EDT [facility] Blood Capillary blood specimen / Unknown 05/21/2024 8:52 PM EDT 05/21/2024 8:53 PM EDT Lizzeth Guevara MD LAB POIN T OF CARE TEST DOCKED DEVICE UNSOLICITED RESULTS Final Result Performing Organization Address City/[facility]/ZIP Co de Phone Number [facility] [address] [place] [address] * POCT glucose meter (05/21/2024 7:50 PM EDT) [facility] POCT Glucose 89 74 - 99 mg/dL 05/21/2024 7:52 PM EDT [facility] Comment:Accuracy of a glucos e result obtained from a capillary whole blood specimen relies upon adequate, non-compromised capillary blood flow. If the capillary glucose result is not consistent with the patient's clinical signs and symptoms, glucose testing should be repeated with either an arterial or venous sample on the glucometer or sent to the main labortory for testing. Comment 05/21/2024 7:52 PM EDT [facility] Photographic Equipment Assembler ID Reuben Guerra 7:52 PM EDT [facility] Device ID [id number] 05/21/2024 7:52 PM EDT [facility] Specimen Type POC Capillary 05/21/2024 7:52 PM EDT [facility] Blood Capillary blood specimen / Unknown 05/21/2024 7:50 PM EDT 05/21/2024 7:52 PM EDT Lizzeth Guevara MD LAB POIN T OF CARE TEST DOCKED DEVICE UNSOLICITED RESULTS Final Result Performing Organization Address City/State/[facility] Co de Phone Number [facility] [address] [place] [address] * POCT glucose meter (05/21/2024 6:42 PM EDT) [facility] POCT Glucose 87 74 - 99 mg/dL 05/21/2024 6:43 PM EDT [facility] Comment:Accuracy of a glucos e result obtained from a capillary whole blood specimen relies upon adequate, non-compromised capillary blood flow. If the capillary glucose result is not consistent with the patient's clinical signs and symptoms, glucose testing should be repeated with either an arterial or venous sample on the glucometer or sent to the main labortory for testing. Comment 05/21/2024 6:43 PM EDT [facility] Photographic Equipment Assembler ID Hiwot Oro 6:43 PM EDT [facility] Device ID [id number] 05/21/2024 6:43 PM EDT [facility] Specimen Type POC Capillary 05/21/2024 6:43 PM EDT [facility] Blood Capillary blood specimen / Unknown 05/21/2024 6:42 PM EDT 05/21/2024 6:43 PM EDT Lizzeth Guevara MD LAB POIN T OF CARE TEST DOCKED DEVICE UNSOLICITED RESULTS Final Result Performing Organization Address City/[facility]/ZIP Co de Phone Number [facility] [address] [place] [address] * (ABNORMAL) Phosphorus (05/21/2024 4:55 AM EDT) Phosphorus, Plasma 1.4(L) 2.5 - 4.5 mg/dL 05/21/2024 6:01 AM EDT [facility] Blood Blood sample taken from central line / Unknown Venipuncture / Unknown 05/21/2024 4:55 AM EDT 05/21/2024 5:31 AM EDT Rosa Chisholm MD LAB BLOOD ORDERABLES Final R esult Performing Organization Address City/[facility]/ZIP Co de Phone Number [facility] [address] [place] [address] * Magnesium (05/21/2024 4:55 AM EDT) Magnesium, Plasma 1.9 1.9 - 2.4 mg/dL 05/21/2024 6:01 AM EDT [facility] Blood Blood sample taken from central line / Unknown Venipuncture / Unknown 05/21/2024 4:55 AM EDT 05/21/2024 5:31 AM EDT Rosa Chisholm MD LAB BLOOD ORDERABLES Final R esult Performing Organization Address City/[facility]/ZIP Co de Phone Number [facility] [address] [place] [address] * (ABNORMAL) Comprehensive metabolic panel (05/21/2024 4:55 AM EDT) Glucose, Plasma 70(L) 74 - 99 mg/dL 05/21/2024 6:01 AM EDT [facility] BUN, Plasma 16 8 - 23 mg/dL 05/21/2024 6:01 AM EDT [facility] Creatinine, Plasma 0.60 0.60 - 1.10 mg/dL 05/21/2024 6:01 AM EDT [facility] BUN/Creatinine Ratio 27 05/21/2024 6:01 AM EDT [facility] Sodium, Plasma 134(L) 136 - 145 mmol/L 05/21/2024 6:01 AM EDT [facility] Potassium, Plasma 3.3(L) 3.6 - 4.9 mmol/L 05/21/2024 6:01 AM EDT [facility] Chloride, Plasma 102 97 - 107 mmol/L 05/21/2024 6:01 AM EDT [facility] CO2, Plasma 24 22 - 29 mmol/L 05/21/2024 6:01 AM EDT [facility] Anion Gap 8 6 - 16 mmol/L 05/21/2024 6:01 AM EDT [facility] Total Calcium, Plasma 7.1(L) 8.9 - 10.2 mg/dL 05/21/2024 6:01 AM EDT [facility] Total Protein 5.3(L) 6.3 - 7.9 g/dL 05/21/2024 6:01 AM EDT [facility] Albumin, Plasma 2.4(L) 3.5 - 5.2 g/dL 05/21/2024 6:01 AM EDT [facility] AST, Plasma 24 10 - 35 U/L 05/21/2024 6:01 AM EDT [facility] ALT, Plasma 57(H) 10 - 35 U/L 05/21/2024 6:01 AM EDT [facility] Alkaline Phosphatase, Plasma 115 46 - 142 U/L 05/21/2024 6:01 AM EDT [facility] Total Bilirubin, Plasma 0.9 0.2 - 1.1 mg/dL 05/21/2024 6:01 AM EDT [facility] eGFRcr 92.0 mL/min/1.7 3m*2 05/21/2024 6:01 AM EDT [facility] Comment:Reported eGFRcr in m L/min/1.73m2 is based the CKD-EPI 2020 equation that does not use a race coefficient. Blood Blood sample taken from central line / Unknown Venipuncture / Unknown 05/21/2024 4:55 AM EDT 05/21/2024 5:31 AM EDT us Rosa Chisholm MD LAB BLOOD ORDERABLES Final R esult [facility] [address] [place] [address] * (ABNORMAL) CBC W/O Differential (05/21/2024 4:55 AM EDT) WBC Count 6.99 3.70 - 10.30 10*3/uL LAB HEMATOLOGY METHOD 05/21/2024 5:46 AM EDT [facility] RBC Count 2.82(L) 3.90 - 5.20 10*6/uL LAB HEMATOLOGY METHOD 05/21/2024 5:46 AM EDT [facility] HGB 10.1(L) 11.2 - 15.7 g/dL LAB HEMATOLOGY METHOD 05/21/2024 5:46 AM EDT [facility] HCT 31.0(L) 34.0 - 45.0 % LAB HEMATOLOGY METHOD 05/21/2024 5:46 AM EDT [facility] Platelet Count 93(L) 155 - 369 10*3/uL LAB HEMATOLOGY METHOD 05/21/2024 5:46 AM EDT [facility] MCV 110(H) 79 - 98 fL LAB HEMATOLOGY METHOD 05/21/2024 5:46 AM EDT [facility] MCH 35.8(H) 26.0 - 32.0 pg LAB HEMATOLOGY METHOD 05/21/2024 5:46 AM EDT [facility] MCHC 32.6 30.7 - 35.5 g/dL LAB HEMATOLOGY METHOD 05/21/2024 5:46 AM EDT [facility] RDW 16.0(H) 11.5 - 14.5 % LAB HEMATOLOGY METHOD 05/21/2024 5:46 AM EDT [facility] MPV 10.2 8.8 - 12.5 fL LAB HEMATOLOGY METHOD 05/21/2024 5:46 AM EDT [facility] nRBC 0.0 <=0.0 per 100 WBCs LAB HEMATOLOGY METHOD 05/21/2024 5:46 AM EDT [facility] Blood Blood sample taken from central line / Unknown Venipuncture / Unknown 05/21/2024 4:55 AM EDT 05/21/2024 5:37 AM EDT us Rosa Chisholm MD LAB BLOOD ORDERABLES Final R esult [facility] [address] [place] [address] * (ABNORMAL) Phosphorus (05/20/2024 9:04 AM EDT) Phosphorus, Plasma 1.9(L) 2.5 - 4.5 mg/dL 05/20/2024 10:05 AM EDT [facility] Blood Venous blood specimen / Unknown Venipuncture / Unknown 05/20/2024 9:04 AM EDT 05/20/2024 9:32 AM EDT us Rosa Chisholm MD LAB BLOOD ORDERABLES Final R esult Performing Organization Address City/[facility]/ZIP Co de Phone Number [facility] [address] [place] [address] * (ABNORMAL) Magnesium (05/20/2024 9:04 AM EDT) Magnesium, Plasma 1.8(L) 1.9 - 2.4 mg/dL 05/20/2024 10:05 AM EDT [facility] Blood Venous blood specimen / Unknown Venipuncture / Unknown 05/20/2024 9:04 AM EDT 05/20/2024 9:32 AM EDT us Rosa Chisholm MD LAB BLOOD ORDERABLES Final R esult Performing Organization Address City/[facility]/ZIP Co de Phone Number [facility] [address] [place] [address] * (ABNORMAL) Comprehensive metabolic panel (05/20/2024 9:04 AM EDT) Glucose, Plasma 67(L) 74 - 99 mg/dL 05/20/2024 10:05 AM EDT [facility] BUN, Plasma 15 8 - 23 mg/dL 05/20/2024 10:05 AM EDT [facility] Creatinine, Plasma 0.56(L) 0.60 - 1.10 mg/dL 05/20/2024 10:05 AM EDT [facility] BUN/Creatinine Ratio 27 05/20/2024 10:05 AM EDT [facility] Sodium, Plasma 138 136 - 145 mmol/L 05/20/2024 10:05 AM EDT [facility] Potassium, Plasma 3.4(L) 3.6 - 4.9 mmol/L 05/20/2024 10:05 AM EDT [facility] Chloride, Plasma 105 97 - 107 mmol/L 05/20/2024 10:05 AM EDT [facility] CO2, Plasma 24 22 - 29 mmol/L 05/20/2024 10:05 AM EDT [facility] Anion Gap 9 6 - 16 mmol/L 05/20/2024 10:05 AM EDT [facility] Total Calcium, Plasma 7.2(L) 8.9 - 10.2 mg/dL 05/20/2024 10:05 AM EDT [facility] Total Protein 5.3(L) 6.3 - 7.9 g/dL 05/20/2024 10:05 AM EDT [facility] Albumin, Plasma 2.8(L) 3.5 - 5.2 g/dL 05/20/2024 10:05 AM EDT [facility] AST, Plasma 36(H) 10 - 35 U/L 05/20/2024 10:05 AM EDT [facility] ALT, Plasma 85(H) 10 - 35 U/L 05/20/2024 10:05 AM EDT [facility] Alkaline Phosphatase, Plasma 119 46 - 142 U/L 05/20/2024 10:05 AM EDT [facility] Total Bilirubin, Plasma 1.0 0.2 - 1.1 mg/dL 05/20/2024 10:05 AM EDT [facility] eGFRcr 93.5 mL/min/1.7 3m*2 05/20/2024 10:05 AM EDT [facility] Comment:Reported eGFRcr in m L/min/1.73m2 is based the CKD-EPI 2020 equation that does not use a race coefficient. Blood Venous blood specimen / Unknown Venipuncture / Unknown 05/20/2024 9:04 AM EDT 05/20/2024 9:32 AM EDT us Rosa Chisholm MD LAB BLOOD ORDERABLES Final R esult [facility] [address] [place] [address] * (ABNORMAL) CBC W/O Differential (05/20/2024 9:04 AM EDT) WBC Count 6.56 3.70 - 10.30 10*3/uL LAB HEMATOLOGY METHOD 05/20/2024 9:56 AM EDT [facility] RBC Count 2.83(L) 3.90 - 5.20 10*6/uL LAB HEMATOLOGY METHOD 05/20/2024 9:56 AM EDT [facility] HGB 10.3(L) 11.2 - 15.7 g/dL LAB HEMATOLOGY METHOD 05/20/2024 9:56 AM EDT [facility] HCT 31.1(L) 34.0 - 45.0 % LAB HEMATOLOGY METHOD 05/20/2024 9:56 AM EDT [facility] Platelet Count 83(L) 155 - 369 10*3/uL LAB HEMATOLOGY METHOD 05/20/2024 9:56 AM EDT [facility] MCV 110(H) 79 - 98 fL LAB HEMATOLOGY METHOD 05/20/2024 9:56 AM EDT [facility] MCH 36.4(H) 26.0 - 32.0 pg LAB HEMATOLOGY METHOD 05/20/2024 9:56 AM EDT [facility] MCHC 33.1 30.7 - 35.5 g/dL LAB HEMATOLOGY METHOD 05/20/2024 9:56 AM EDT [facility] RDW 16.4(H) 11.5 - 14.5 % LAB HEMATOLOGY METHOD 05/20/2024 9:56 AM EDT [facility] MPV 10.2 8.8 - 12.5 fL LAB HEMATOLOGY METHOD 05/20/2024 9:56 AM EDT [facility] nRBC 0.0 <=0.0 per 100 WBCs LAB HEMATOLOGY METHOD 05/20/2024 9:56 AM EDT [facility] Blood Venous blood specimen / Unknown Venipuncture / Unknown 05/20/2024 9:04 AM EDT 05/20/2024 9:37 AM EDT us Rosa Chisholm MD LAB BLOOD ORDERABLES Final R esult [facility] [address] [place] [address] * US Abdomen Doppler Limited (05/20/2024 1:54 [...] IMG US PROCEDURES Final Resu lt * (ABNORMAL) POCT glucose meter (05/19/2024 6:55 PM EDT) POCT Glucose 101(H) 74 - 99 mg/dL 05/19/2024 7:03 PM EDT [facility] Comment:Accuracy of a glucos e result obtained from a capillary whole blood specimen relies upon adequate, non-compromised capillary blood flow. If the capillary glucose result is not consistent with the patient's clinical signs and symptoms, glucose testing should be repeated with either an arterial or venous sample on the glucometer or sent to the main labortory for testing. Comment 05/19/2024 7:03 PM EDT [facility] Photographic Equipment Assembler ID Mary, Tania 05/19/2024 7:03 PM EDT [facility] Device ID [id number] 05/19/2024 7:03 PM EDT [facility] Specimen Type POC Capillary 05/19/2024 7:03 PM EDT [facility] Blood Capillary blood specimen / Unknown 05/19/2024 6:55 PM EDT 05/19/2024 7:03 PM EDT Rosa Chisholm MD LAB POINT OF CARE TE ST DOCKED DEVICE UNSOLICITED RESULTS Final Result Performing Organization Address [facility] de Phone Number [facility] [address] [place] [address] * (ABNORMAL) POCT glucose meter (05/19/2024 5:57 PM EDT) [facility] POCT Glucose 47(LL) 74 - 99 mg/dL 05/19/2024 5:59 PM EDT [facility] Comment:Accuracy of a glucos e result obtained from a capillary whole blood specimen relies upon adequate, non-compromised capillary blood flow. If the capillary glucose result is not consistent with the patient's clinical signs and symptoms, glucose testing should be repeated with either an arterial or venous sample on the glucometer or sent to the main labortory for testing. Comment 05/19/2024 5:59 PM EDT [facility] Photographic Equipment Assembler ID Elsa Perez 05/19/2024 5:59 PM EDT [facility] Device ID [id number] 05/19/2024 5:59 PM EDT [facility] Specimen Type POC Capillary 05/19/2024 5:59 PM EDT [facility] Blood Capillary blood specimen / Unknown 05/19/2024 5:57 PM EDT 05/19/2024 5:59 PM EDT Rosa Chisholm MD LAB POINT OF CARE TE ST DOCKED DEVICE UNSOLICITED RESULTS Final Result Performing Organization Address City/[facility] Co de Phone Number [facility] [address] [place] [address] * CT Abdomen Pelvis wo IV Contrast [...] IMG CT PROCEDURES Final Resu lt * POCT glucose meter (05/19/2024 11:26 AM EDT) POCT Glucose 82 74 - 99 mg/dL 05/19/2024 11:28 AM EDT [facility] Comment:Accuracy of a glucos e result obtained from a capillary whole blood specimen relies upon adequate, non-compromised capillary blood flow. If the capillary glucose result is not consistent with the patient's clinical signs and symptoms, glucose testing should be repeated with either an arterial or venous sample on the glucometer or sent to the main labortory for testing. Comment 05/19/2024 11:28 AM EDT [facility] Photographic Equipment Assembler ID Elsa Perez 05/19/2024 11:28 AM EDT [facility] Device ID [id number] 05/19/2024 11:28 AM EDT [facility] Specimen Type POC Capillary 05/19/2024 11:28 AM EDT [facility] Blood Capillary blood specimen / Unknown 05/19/2024 11:26 AM EDT 05/19/2024 11:28 AM EDT Rosa Chisholm MD LAB POINT OF CARE TE ST DOCKED DEVICE UNSOLICITED RESULTS Final Result Performing Organization Address City/State/[facility] Phone Number [facility] [address] [place] [address] * XR Abdomen 1 View (05/19/2024 9:45 [...] IMG XR PROCEDURES Final Resu lt * Magnesium (05/19/2024 9:20 AM EDT) Magnesium, Plasma 1.9 1.9 - 2.4 mg/dL 05/19/2024 10:01 AM EDT [facility] Blood Venous blood specimen / Unknown Venipuncture / Unknown 05/19/2024 9:20 AM EDT 05/19/2024 9:26 AM EDT Rosa Chisholm MD LAB BLOOD ORDERABLES Final R esult Performing Organization Address City/[facility]/ZIP Co de Phone Number [facility] [address] [place] [address] * (ABNORMAL) Phosphorus (05/19/2024 9:20 AM EDT) Phosphorus, Plasma 1.5(L) 2.5 - 4.5 mg/dL 05/19/2024 10:01 AM EDT [facility] Blood Venous blood specimen / Unknown Venipuncture / Unknown 05/19/2024 9:20 AM EDT 05/19/2024 9:26 AM EDT us Rosa Chisholm MD LAB BLOOD ORDERABLES Final R esult Performing Organization Address City/[facility]/ZIP Co de Phone Number [facility] [address] [place] [address] * (ABNORMAL) Comprehensive metabolic panel (05/19/2024 9:20 AM EDT) Glucose, Plasma 107(H) 74 - 99 mg/dL 05/19/2024 10: AM EDT [facility] BUN, Plasma 18 8 - 23 mg/dL 05/19/2024 10:01 AM EDT [facility] Creatinine, Plasma 0.67 0.60 - 1.10 mg/dL 05/19/2024 10:01 AM EDT [facility] BUN/Creatinine Ratio 27 05/19/2024 10:01 AM EDT [facility] Sodium, Plasma 142 136 - 145 mmol/L 05/19/2024 10:01 AM EDT [facility] Potassium, Plasma 3.1(L) 3.6 - 4.9 mmol/L 05/19/2024 10:01 AM EDT [facility] Chloride, Plasma 110(H) 97 - 107 mmol/L 05/19/2024 10:01 AM EDT [facility] CO2, Plasma 24 22 - 29 mmol/L 05/19/2024 10:01 AM EDT [facility] Anion Gap 8 6 - 16 mmol/L 05/19/2024 10:01 AM EDT [facility] Total Calcium, Plasma 7.4(L) 8.9 - 10.2 mg/dL 05/19/2024 10:01 AM EDT [facility] Total Protein 5.2(L) 6.3 - 7.9 g/dL 05/19/2024 10:01 AM EDT [facility] Albumin, Plasma 2.6(L) 3.5 - 5.2 g/dL 05/19/2024 10:01 AM EDT [facility] AST, Plasma 86(H) 10 - 35 U/L 05/19/2024 10:01 AM EDT [facility] ALT, Plasma 128(H) 10 - 35 U/L 05/19/2024 10:01 AM EDT [facility] Alkaline Phosphatase, Plasma 120 46 - 142 U/L 05/19/2024 10:01 AM EDT [facility] Total Bilirubin, Plasma 1.3(H) 0.2 - 1.1 mg/dL 05/19/2024 10:01 AM EDT [facility] eGFRcr 89.6 mL/min/1.7 3m*2 05/19/2024 10:01 AM EDT [facility] Comment:Reported eGFRcr in m L/min/1.73m2 is based the CKD-EPI 2020 equation that does not use a race coefficient. Blood Venous blood specimen / Unknown Venipuncture / Unknown 05/19/2024 9:20 AM EDT 05/19/2024 9:26 AM EDT us Rosa Chisholm MD LAB BLOOD ORDERABLES Final R esult [facility] [address] [place] [address] * (ABNORMAL) CBC and differential (05/19/2024 9:20 AM EDT) WBC Count 5.78 3.70 - 10.30 10*3/uL LAB HEMATOLOGY METHOD 05/19/2024 10:03 AM EDT [facility] RBC Count 2.94(L) 3.90 - 5.20 10*6/uL LAB HEMATOLOGY METHOD 05/19/2024 10:03 AM EDT [facility] HGB 10.7(L) 11.2 - 15.7 g/dL LAB HEMATOLOGY METHOD 05/19/2024 10:03 AM EDT [facility] HCT 32.2(L) 34.0 - 45.0 % LAB HEMATOLOGY METHOD 05/19/2024 10:03 AM EDT [facility] Platelet Count 75(L) 155 - 369 10*3/uL LAB HEMATOLOGY METHOD 05/19/2024 10:03 AM EDT [facility] MCV 110(H) 79 - 98 fL LAB HEMATOLOGY METHOD 05/19/2024 10:03 AM EDT [facility] MCH 36.4(H) 26.0 - 32.0 pg LAB HEMATOLOGY METHOD 05/19/2024 10:03 AM EDT [facility] MCHC 33.2 30.7 - 35.5 g/dL LAB HEMATOLOGY METHOD 05/19/2024 10:03 AM EDT [facility] RDW 16.6(H) 11.5 - 14.5 % LAB HEMATOLOGY METHOD 05/19/2024 10:03 AM EDT [facility] MPV 9.5 8.8 - 12.5 fL LAB HEMATOLOGY METHOD 05/19/2024 10:03 AM EDT [facility] nRBC 0.0 <=0.0 per 100 WBCs LAB HEMATOLOGY METHOD 05/19/2024 10:03 AM EDT [facility] Differential Type Automated LAB HEMATOLOGY METHOD 05/19/2024 10:03 AM EDT [facility] Neutrophils % 90 % LAB HEMATOLOGY METHOD 05/19/2024 10:03 AM EDT [facility] Lymphocytes % 3 % LAB HEMATOLOGY METHOD 05/19/2024 10:03 AM EDT [facility] Monocytes % 5 % LAB HEMATOLOGY METHOD 05/19/2024 10:03 AM EDT [facility] Eosinophils % 0 % LAB HEMATOLOGY METHOD 05/19/2024 10:03 AM EDT [facility] Basophils % 1 % LAB HEMATOLOGY METHOD 05/19/2024 10:03 AM EDT [facility] Immature Granulocytes % 1 % LAB HEMATOLOGY METHOD 05/19/2024 10:03 AM EDT [facility] Neutrophils Absolute 5.21 1.60 - 6.10 10*3/uL LAB HEMATOLOGY METHOD 05/19/2024 10:03 AM EDT [facility] Lymphocytes Absolute 0.17(L) 1.20 - 3.90 10*3/uL LAB HEMATOLOGY METHOD 05/19/2024 10:03 AM EDT [facility] Monocytes Absolute 0.27(L) 0.30 - 0.90 10*3/uL LAB HEMATOLOGY METHOD 05/19/2024 10:03 AM EDT [facility] Eosinophils Absolute 0.02 0.00 - 0.50 10*3/uL LAB HEMATOLOGY METHOD 05/19/2024 10:03 AM EDT [facility] Basophils Absolute 0.03 0.00 - 0.10 10*3/uL LAB HEMATOLOGY METHOD 05/19/2024 10:03 AM EDT [facility] Immature Granulocytes Absolute 0.08(H) 0.00 - 0.06 10*3/uL LAB HEMATOLOGY METHOD 05/19/2024 10:03 AM EDT [facility] Blood Venous blood specimen / Unknown Venipuncture / Unknown 05/19/2024 9:20 AM EDT 05/19/2024 9:26 AM EDT Narrative [facility] - 05/19/2024 10:03 AM EDT Therapeutic decision making should be based on absolute values, rather than percentages. us Rosa Chisholm MD LAB BLOOD ORDERABLES Final R esult [facility] [address] [place] [address] * (ABNORMAL) POCT glucose meter (05/19/2024 6:00 AM EDT) POCT Glucose 111(H) 74 - 99 mg/dL 05/19/2024 6:01 AM EDT [facility] Comment:Accuracy of a glucos e result obtained from a capillary whole blood specimen relies upon adequate, non-compromised capillary blood flow. If the capillary glucose result is not consistent with the patient's clinical signs and symptoms, glucose testing should be repeated with either an arterial or venous sample on the glucometer or sent to the main labortory for testing. Comment 05/19/2024 6:01 AM EDT [facility] Photographic Equipment Assembler ID Reuben Guerra 6:01 AM EDT [facility] Device ID [id number] 05/19/2024 6:01 AM EDT [facility] Specimen Type POC Capillary 05/19/2024 6:01 AM EDT [facility] Blood Capillary blood specimen / Unknown 05/19/2024 6:00 AM EDT 05/19/2024 6:01 AM EDT us Rosa Chisholm MD LAB POINT OF CARE TE ST DOCKED DEVICE UNSOLICITED RESULTS Final Result [facility] [address] [place] [address] * POCT glucose meter (05/19/2024 12:06 AM EDT) POCT Glucose 95 74 - 99 mg/dL 05/19/2024 12:08 AM EDT [facility] Comment:Accuracy of a glucos e result obtained from a capillary whole blood specimen relies upon adequate, non-compromised capillary blood flow. If the capillary glucose result is not consistent with the patient's clinical signs and symptoms, glucose testing should be repeated with either an arterial or venous sample on the glucometer or sent to the main labortory for testing. Comment 05/19/2024 12:08 AM EDT [facility] Photographic Equipment Assembler ID Reuben Guerra 12:08 AM EDT [facility] Device ID [id number] 05/19/2024 12:08 AM EDT [facility] Specimen Type POC Capillary 05/19/2024 12:08 AM EDT [facility] Blood Capillary blood specimen / Unknown 05/19/2024 12:06 AM EDT 05/19/2024 12:08 AM EDT us Rosa Chisholm MD LAB POINT OF CARE TE ST DOCKED DEVICE UNSOLICITED RESULTS Final Result Performing Organization Address City/State/[facility] Co de Phone Number [facility] [address] [place] [address] * POCT glucose meter (05/18/2024 6:04 PM EDT) [facility] POCT Glucose 96 74 - 99 mg/dL 05/18/2024 6:05 PM EDT [facility] Comment:Accuracy of a glucos e result obtained from a capillary whole blood specimen relies upon adequate, non-compromised capillary blood flow. If the capillary glucose result is not consistent with the patient's clinical signs and symptoms, glucose testing should be repeated with either an arterial or venous sample on the glucometer or sent to the main labortory for testing. Comment 05/18/2024 6:05 PM EDT [facility] Photographic Equipment Assembler ID Dayanna Moon 05/18/2024 6:05 PM EDT [facility] Device ID [id number] 05/18/2024 6:05 PM EDT [facility] Specimen Type POC Capillary 05/18/2024 6:05 PM EDT [facility] Blood Capillary blood specimen / Unknown 05/18/2024 6:04 PM EDT 05/18/2024 6:05 PM EDT us Rosa Chisholm MD LAB POINT OF CARE TE ST DOCKED DEVICE UNSOLICITED RESULTS Final Result [facility] [address] [place] [address] * Immunoglobulin G Subclass 4 (SO) (05/18/2024 4:38 PM EDT) IMMUNOGLOBULIN G SUBCLASS 4 19 1 - 123 mg/dL 05/22/2024 4:35 AM EDT [facility] [employer] ([place]) Blood Venous blood specimen / Unknown Venipuncture / Unknown 05/18/2024 4:38 PM EDT 05/18/2024 4:52 PM EDT Narrative [facility] ([place]) - 05/22/2024 4:35 AM EDT REFERENCE INTERVAL: Immunoglobulin G Subclass 4 Access complete set of age- and/or gender-specific reference intervals for this test in the [employer] [facility] Test Directory ([address]). Performed By: [facility] [address] [place] [address] Printer[employer]S Devil: Moo Rodriguez MD, PhD CLIA Number: [id number] us Rosa Chisholm MD LAB REF LAB BLOOD AND FLUID ORD Final Result Performing Organization Address City/[facility] Co de Phone Number [facility] [employer]NICHOLAS) [address] [place], [place] [id number] * MRCP w and wo IV Contrast [...] using the following sequences: coronal single shot [id number] fast spin echo, axial T2 weighted sequences [...] Sung Schneider MD on 05/18/2024 2:26 PM Fer Tanner TABLET MAKING MACHINE OPERATOR, DNP IMG MRI PROCEDURES Paula l Result * (ABNORMAL) POCT glucose meter (05/18/2024 6:31 AM EDT) POCT Glucose 104(H) 74 - 99 mg/dL 05/18/2024 6:33 AM EDT [facility] Comment:Accuracy of a glucos e result obtained from a capillary whole blood specimen relies upon adequate, non-compromised capillary blood flow. If the capillary glucose result is not consistent with the patient's clinical signs and symptoms, glucose testing should be repeated with either an arterial or venous sample on the glucometer or sent to the main labortory for testing. Comment 05/18/2024 6:33 AM EDT [facility] Photographic Equipment Assembler ID [email or web address] 6:33 AM EDT [facility] Device ID [id number] 05/18/2024 6:33 AM EDT [facility] Specimen Type POC Capillary 05/18/2024 6:33 AM EDT [facility] Blood Capillary blood specimen / Unknown 05/18/2024 6:31 AM EDT 05/18/2024 6:33 AM EDT Bob Zuleta MD LAB POINT OF CARE TE ST DOCKED DEVICE UNSOLICITED RESULTS Final Result Performing Organization Address City/[facility] Co de Phone Number [facility] [address] [place] [address] * (ABNORMAL) POCT glucose meter (05/18/2024 5:55 AM EDT) [facility] POCT Glucose 66(L) 74 - 99 mg/dL 05/18/2024 5:57 AM EDT [facility] Comment:Accuracy of a glucos e result obtained from a capillary whole blood specimen relies upon adequate, non-compromised capillary blood flow. If the capillary glucose result is not consistent with the patient's clinical signs and symptoms, glucose testing should be repeated with either an arterial or venous sample on the glucometer or sent to the main labortory for testing. Comment 05/18/2024 5:57 AM EDT [facility] Photographic Equipment Assembler ID Reuben Guerra 5:57 AM EDT [facility] Device ID [id number] 05/18/2024 5:57 AM EDT [facility] Specimen Type POC Capillary 05/18/2024 5:57 AM EDT [facility] Blood Capillary blood specimen / Unknown 05/18/2024 5:55 AM EDT 05/18/2024 5:57 AM EDT us Bob Zuleta MD LAB POINT OF CARE TE ST DOCKED DEVICE UNSOLICITED RESULTS Final Result Performing Organization Address City/[facility] Co de Phone Number [facility] [address] [place] [address] * Triglycerides (05/18/2024 2:35 AM EDT) Pathologist [facility] Triglycerides, Plasma 53 <150 mg/dL 05/18/2024 9:45 AM EDT [facility] Comment: Triglyceride Reference Range (age >17 years): Desirable: ??<150 mg/dL Borderline high: ??150 to 199 mg/dL High: ??200 to 499 mg/dL Very high: ??>499 mg/dL Increased risk of pancreatitis: ??>1000 mg/dL Fasting greater than or equal to 12 hours? Unknown 05/18/2024 9:45 AM EDT [facility] Blood Venous blood specimen / Unknown Venipuncture / Unknown 05/18/2024 2:35 AM EDT 05/18/2024 2:39 AM EDT Rosa Chisholm MD LAB BLOOD ORDERABLES Final R esult Performing Organization Address City/[facility]/ZIP Co de Phone Number [facility] [address] [place] [address] * (ABNORMAL) Lipase (05/18/2024 2:35 AM EDT) Pathologist [facility] Lipase, Plasma 1,402(H) 19 - 63 U/L 05/18/2024 9:48 AM EDT [facility] Blood Venous blood specimen / Unknown Venipuncture / Unknown 05/18/2024 2:35 AM EDT 05/18/2024 2:39 AM EDT Rosa Chisholm MD LAB BLOOD ORDERABLES Final R esult Performing Organization Address City/[facility]/ZIP Co de Phone Number [facility] [address] [place] [address] * Peripheral blood smear, pathologist interpretation (05/18/2024 2:35 AM EDT) Clinical Diagnosis, Peripheral Smear Unexplained recent cytopenia LAB HEMATOLOGY METHOD 05/20/2024 2:44 PM EDT [facility] Interpretation , Peripheral Smear Mild thrombocytopen ia. 05/20/2024 2:44 PM EDT [facility] Pathologist Signature, Peripheral Smear 05/20/2024 2:44 PM EDT [facility] Comment:Reviewed by: Salina Valadez MD LAB CP ASR DISCLAIMER No 05/20/2024 2:44 PM EDT [facility] Blood Venous blood specimen / Unknown Venipuncture / Unknown 05/18/2024 2:35 AM EDT 05/18/2024 2:39 AM EDT Fer Epps Ciro OLMOS, DNP LAB PATHOLOGY ORDERABLE S Final Result Performing Organization Address City/[facility]/ZIP Co de Phone Number [facility] [address] [place] [address] * Folate (05/18/2024 2:35 AM EDT) Pathologist [facility] Folate, Serum 6.8 >4.8 ng/mL 05/18/2024 3:42 AM EDT [facility] Blood Venous blood specimen / Unknown Venipuncture / Unknown 05/18/2024 2:35 AM EDT 05/18/2024 2:39 AM EDT Fer Epps Ciro ARENASN, DNP LAB BLOOD ORDERABLES Fi nal Result [facility] [address] [place] [address] * (ABNORMAL) Peripheral Blood Smear (05/18/2024 2:35 AM EDT) Pathologist [facility] WBC Count 5.05 3.70 - 10.30 10*3/uL LAB HEMATOLOGY METHOD 05/18/2024 4:42 AM EDT [facility] RBC Count 3.34(L) 3.90 - 5.20 10*6/uL LAB HEMATOLOGY METHOD 05/18/2024 4:42 AM EDT [facility] HGB 12.0 11.2 - 15.7 g/dL LAB HEMATOLOGY METHOD 05/18/2024 4:42 AM EDT [facility] HCT 36.3 34.0 - 45.0 % LAB HEMATOLOGY METHOD 05/18/2024 4:42 AM EDT [facility] Platelet Count 94(L) 155 - 369 10*3/uL LAB HEMATOLOGY METHOD 05/18/2024 4:42 AM EDT [facility] MCV 109(H) 79 - 98 fL LAB HEMATOLOGY METHOD 05/18/2024 4:42 AM EDT [facility] MCH 35.9(H) 26.0 - 32.0 pg LAB HEMATOLOGY METHOD 05/18/2024 4:42 AM EDT [facility] MCHC 33.1 30.7 - 35.5 g/dL LAB HEMATOLOGY METHOD 05/18/2024 4:42 AM EDT [facility] RDW 16.8(H) 11.5 - 14.5 % LAB HEMATOLOGY METHOD 05/18/2024 4:42 AM EDT [facility] MPV 9.7 8.8 - 12.5 fL LAB HEMATOLOGY METHOD 05/18/2024 4:42 AM EDT [facility] nRBC 0.0 <=0.0 per 100 WBCs LAB HEMATOLOGY METHOD 05/18/2024 4:42 AM EDT [facility] Differential Type Automated LAB HEMATOLOGY METHOD 05/18/2024 4:42 AM EDT [facility] Neutrophils % 92 % LAB HEMATOLOGY METHOD 05/18/2024 4:42 AM EDT [facility] Lymphocytes % 4 % LAB HEMATOLOGY METHOD 05/18/2024 4:42 AM EDT [facility] Monocytes % 3 % LAB HEMATOLOGY METHOD 05/18/2024 4:42 AM EDT [facility] Eosinophils % 0 % LAB HEMATOLOGY METHOD 05/18/2024 4:42 AM EDT [facility] Basophils % 1 % LAB HEMATOLOGY METHOD 05/18/2024 4:42 AM EDT [facility] Immature Granulocytes % 0 % LAB HEMATOLOGY METHOD 05/18/2024 4:42 AM EDT [facility] Neutrophils Absolute 4.64 1.60 - 6.10 10*3/uL LAB HEMATOLOGY METHOD 05/18/2024 4:42 AM EDT [facility] Lymphocytes Absolute 0.18(L) 1.20 - 3.90 10*3/uL LAB HEMATOLOGY METHOD 05/18/2024 4:42 AM EDT [facility] Monocytes Absolute 0.17(L) 0.30 - 0.90 10*3/uL LAB HEMATOLOGY METHOD 05/18/2024 4:42 AM EDT [facility] Eosinophils Absolute 0.01 0.00 - 0.50 10*3/uL LAB HEMATOLOGY METHOD 05/18/2024 4:42 AM EDT [facility] Basophils Absolute 0.03 0.00 - 0.10 10*3/uL LAB HEMATOLOGY METHOD 05/18/2024 4:42 AM EDT [facility] Immature Granulocytes Absolute 0.02 0.00 - 0.06 10*3/uL LAB HEMATOLOGY METHOD 05/18/2024 4:42 AM EDT [facility] Blood Venous blood specimen / Unknown Venipuncture / Unknown 05/18/2024 2:35 AM EDT 05/18/2024 2:39 AM EDT Narrative [facility] - 05/18/2024 4:42 AM EDT Therapeutic decision making should be based on absolute values, rather than percentages. Fer Tanner APRN, DNP LAB PATHOLOGY ORDERABLE S Final Result Performing Organization Address [facility] Co de Phone Number [facility] [address] [place] [address] * (ABNORMAL) Troponin T, High Sensitivity, 2 Hour, Plasma (05/18/2024 2:35 AM EDT) Troponin T, High Sensitivity, 2 Hour 20(H) <14 ng/L 05/18/2024 3:06 AM EDT [facility] Troponin Delta 5 <10 ng/L 05/18/2024 3:06 AM EDT [facility] Troponin Delta Interpretation Not Significant 05/18/2024 3:06 AM EDT [facility] Comment:Not Significant. No acute change in troponin observed between the baseline and 2 hour samples. Blood Venous blood specimen / Unknown Venipuncture / Unknown 05/18/2024 2:35 AM EDT 05/18/2024 2:39 AM EDT Fer Tanner APRN, DNP LAB BLOOD ORDERABLES Fi nal Result Performing Organization Address City/[facility]/ZIP Co de Phone Number [facility] [address] [place] [address] * (ABNORMAL) PT/INR (05/18/2024 2:35 AM EDT) Prothrombin Time 17.4(H) 12.0 - 14.3 sec LAB COAGULATION METHOD 05/18/2024 3:17 AM EDT [facility] INR 1.4(H) 0.9 - 1.1 LAB COAGULATION METHOD 05/18/2024 3:17 AM EDT [facility] Blood Venous blood specimen / Unknown Venipuncture / Unknown 05/18/2024 2:35 AM EDT 05/18/2024 2:39 AM EDT Narrative [facility] - 05/18/2024 3:17 AM EDT OPTIMAL INR RANGES FOR PATIENT ON ORAL ANTICOAGULANT THERAPY Prevention of venous thromboembolism ?INR 2.0 to 3.0 In patients with heart disease: Atrial fibrillation ?INR 2.0 to 3.0 Valvular heart disease ? INR 2.0 to 3.0 Tissue heart valves ?INR 2.0 to 3.0 Mechanical prosthetic valves ? INR 2.5 to 3.5 Prevention of recurrent VA ? INR 2.5 to 3.5 Fer Tanner APRN, JOCELYN LAB BLOOD ORDERABLES Fi nal Result Performing Organization Address [facility] de Phone Number [facility] [address] [place] [address] * Phosphorus (05/18/2024 2:35 AM EDT) Phosphorus, Plasma 3.8 2.5 - 4.5 mg/dL 05/18/2024 3:09 AM EDT [facility] Blood Venous blood specimen / Unknown Venipuncture / Unknown 05/18/2024 2:35 AM EDT 05/18/2024 2:39 AM EDT Fer Tanner APRN, DNP LAB BLOOD ORDERABLES Fi nal Result Performing Organization Address [facility] Co de Phone Number [facility] [address] [place] [address] * Magnesium, Plasma (05/18/2024 2:35 AM EDT) Magnesium, Plasma 2.1 1.9 - 2.4 mg/dL 05/18/2024 3:09 AM EDT [facility] Blood Venous blood specimen / Unknown Venipuncture / Unknown 05/18/2024 2:35 AM EDT 05/18/2024 2:39 AM EDT us Fer W Ciro TABLET MAKING MACHINE OPERATOR, DNP LAB BLOOD ORDERABLES Fi nal Result [facility] [address] [place] [address] * (ABNORMAL) Comprehensive metabolic panel (05/18/2024 2:35 AM EDT) Glucose, Plasma 94 74 - 99 mg/dL 05/18/2024 3:09 AM EDT [facility] BUN, Plasma 30(H) 8 - 23 mg/dL 05/18/2024 3:09 AM EDT [facility] Creatinine, Plasma 0.95 0.60 - 1.10 mg/dL 05/18/2024 3:09 AM EDT [facility] BUN/Creatinine Ratio 32 05/18/2024 3:09 AM EDT [facility] Sodium, Plasma 141 136 - 145 mmol/L 05/18/2024 3:09 AM EDT [facility] Potassium, Plasma 4.0 3.6 - 4.9 mmol/L 05/18/2024 3:09 AM EDT [facility] Chloride, Plasma 107 97 - 107 mmol/L 05/18/2024 3:09 AM EDT [facility] CO2, Plasma 22 22 - 29 mmol/L 05/18/2024 3:09 AM EDT [facility] Anion Gap 12 6 - 16 mmol/L 05/18/2024 3:09 AM EDT [facility] Total Calcium, Plasma 8.4(L) 8.9 - 10.2 mg/dL 05/18/2024 3:09 AM EDT [facility] Total Protein 5.9(L) 6.3 - 7.9 g/dL 05/18/2024 3:09 AM EDT [facility] Albumin, Plasma 3.2(L) 3.5 - 5.2 g/dL 05/18/2024 3:09 AM EDT [facility] AST, Plasma 322(H) 10 - 35 U/L 05/18/2024 3:09 AM EDT [facility] ALT, Plasma 299(H) 10 - 35 U/L 05/18/2024 3:09 AM EDT [facility] Alkaline Phosphatase, Plasma 182(H) 46 - 142 U/L 05/18/2024 3:09 AM EDT [facility] Total Bilirubin, Plasma 3.8(H) 0.2 - 1.1 mg/dL 05/18/2024 3:09 AM EDT [facility] eGFRcr 61.5 mL/min/1.7 3m*2 05/18/2024 3:09 AM EDT [facility] Comment:Reported eGFRcr in m L/min/1.73m2 is based the CKD-EPI 2020 equation that does not use a race coefficient. Blood Venous blood specimen / Unknown Venipuncture / Unknown 05/18/2024 2:35 AM EDT 05/18/2024 2:39 AM EDT Fer Tanner APRN, DNP LAB BLOOD ORDERABLES Fi nal Result Performing Organization Address City/[facility] de Phone Number [facility] [address] [place] [address] * Urinalysis Microscopic Examination (05/18/2024 1:23 AM EDT) Urine Urine specimen obtained by clean catch procedure / Unknown Non-blood Collection / Unknown 05/18/2024 1:23 AM EDT 05/18/2024 1:23 AM EDT Fer Tanner APRN, DNP LAB URINE ORDERABLES Fi nal Result Performing Organization Address City/[facility]/ZIP Co de Phone Number [facility] [address] [place] [address] * (ABNORMAL) Urinalysis with reflex microscopic (Culture NOT Included) (05/18/2024 1:23 AM EDT) Color, Urine Dark Yellow LAB URINALYSIS - AUTOMATED METHOD 05/18/2024 2:08 AM T [facility] Clarity, Urine Clear LAB URINALYSIS - AUTOMATED METHOD 05/18/2024 2:08 AM T [facility] Spec Section, Urine >1.030(H) 1.005 - 1.030 LAB URINALYSIS - AUTOMATED METHOD 05/18/2024 2:08 AM EDT [facility] pH, Urine 5.5 4.5 to 8 LAB URINALYSIS - AUTOMATED METHOD 05/18/2024 2:08 AM T [facility] Protein, Urine 100(A) Negative mg/dL LAB URINALYSIS - AUTOMATED METHOD 05/18/2024 2:08 AM T [facility] Glucose, Urine Negative Negative mg/dL LAB URINALYSIS - AUTOMATED METHOD 05/18/2024 2:08 AM T [facility] Ketones, Urine Trace(A) Negative mg/dL LAB URINALYSIS - AUTOMATED METHOD 05/18/2024 2:08 AM T [facility] Blood, Urine Small(A) Negative LAB URINALYSIS - AUTOMATED METHOD 05/18/2024 2:08 AM T [facility] Bilirubin, Urine Moderate(A) Negative LAB URINALYSIS - AUTOMATED METHOD 05/18/2024 2:08 AM T [facility] Urobilinogen, Urine 1.0 0.2 to 1.0 mg/dL LAB URINALYSIS - AUTOMATED METHOD 05/18/2024 2:08 AM T [facility] Leukocytes, Urine Small(A) Negative LAB URINALYSIS - AUTOMATED METHOD 05/18/2024 2:08 AM T [facility] Nitrite, Urine Negative Negative LAB URINALYSIS - AUTOMATED METHOD 05/18/2024 2:08 AM T [facility] RBC, Urine 4 - 10(A) 0 to 3 /HPF LAB URINALYSIS - AUTOMATED METHOD 05/18/2024 2:08 AM T [facility] WBC, Urine 11 - 20(A) 0 to 5 /HPF LAB URINALYSIS - AUTOMATED METHOD 05/18/2024 2:08 AM T [facility] Squamous Epithelial Cells 0 - 2 0 to 5 /HPF LAB URINALYSIS - AUTOMATED METHOD 05/18/2024 2:08 AM EDT [facility] Hyaline Casts 0 - 2 0 to 5 /LPF LAB URINALYSIS - AUTOMATED METHOD 05/18/2024 2:08 AM EDT [facility] Bacteria, Urine Negative Negative LAB URINALYSIS - AUTOMATED METHOD 05/18/2024 2:08 AM EDT [facility] Renal Tubular Cells Present Absent LAB URINALYSIS - AUTOMATED METHOD 05/18/2024 2:08 AM EDT [facility] Urine Urine specimen obtained by clean catch procedure / Unknown Non-blood Collection / Unknown 05/18/2024 1:23 AM EDT 05/18/2024 1:23 AM EDT us Fer W Mingua TABLET MAKING MACHINE OPERATOR, DNP LAB URINE ORDERABLES Fi nal Result [facility] [address] [place] [address] * (ABNORMAL) Comprehensive Urine Drug Screening, Qualitative Assay, >= 27 Drug Classes (:23 AM EDT) Acetaminophen Negative Negative 05/19/2024 7:46 PM EDT [facility] Alprazolam Negative Negative 05/19/2024 7:46 PM EDT [facility] Amantadine Negative Negative 05/19/2024 7:46 PM EDT [facility] Amitriptyline Negative Negative 05/19/2024 7:46 PM EDT [facility] Amphetamine Negative Negative 05/19/2024 7:46 PM EDT [facility] Atenolol Negative Negative 05/19/2024 7:46 PM EDT [facility] Benzoylecgonine Negative Negative 7:46 PM EDT [facility] Bisoprolol Negative Negative 05/19/2024 7:46 PM EDT [facility] Bupropion Negative Negative 05/19/2024 7:46 PM EDT [facility] Butalbital Negative Negative 05/19/2024 7:46 PM EDT [facility] Carbamazepine Negative Negative 05/19/2024 7:46 PM EDT [facility] Carisoprodol Negative Negative 05/19/2024 7:46 PM EDT [facility] Chlorpheniramine Negative Negative 05/19/20 7:46 PM EDT [facility] Citalopram Negative Negative 05/19/2024 7:46 PM EDT [facility] Clindamycin Negative Negative 05/19/2024 7:46 PM EDT [facility] Clonidine Negative Negative 05/19/2024 7:46 PM EDT [facility] Clopidogrel / Ticlopidine Negative Negative 05/19/2024 7:46 PM EDT [facility] Cocaethylene Negative Negative 05/19/2024 7:46 PM EDT [facility] Cocaine Negative Negative 05/19/2024 7:46 PM EDT [facility] Codeine Negative Negative 05/19/2024 7:46 PM EDT [facility] Cyclobenzaprine Negative Negative 7:46 PM EDT [facility] Desvenlafaxine Negative Negative 05/19/2024 7:46 PM EDT [facility] Dextromethorphan Negative Negative 05/19/20 7:46 PM EDT [facility] Diazepam Negative Negative 05/19/2024 7:46 PM EDT [facility] Diltiazem Negative Negative 05/19/2024 7:46 PM EDT [facility] Diphenhydramine Positive(A) Negative 05/19/20 7:46 PM EDT [facility] Doxepine Negative Negative 05/19/2024 7:46 PM EDT [facility] Doxylamine Negative Negative 05/19/2024 7:46 PM EDT [facility] EDDP-Methadone metabolite Negative Negative 05/19/2024 7:46 PM EDT [facility] Fentanyl Negative Negative 05/19/2024 7:46 PM EDT [facility] Fluconazole Negative Negative 05/19/2024 7:46 PM EDT [facility] Fluoxetine Negative Negative 05/19/2024 7:46 PM EDT [facility] Guaifenesin Negative Negative 05/19/2024 7:46 PM EDT [facility] Haloperidol Negative Negative 05/19/2024 7:46 PM EDT [facility] Heroin/6-TIANA Negative Negative 05/19/2024 7:46 PM EDT [facility] Hydrocodone Negative Negative 05/19/2024 7:46 PM EDT [facility] Hydroxyzine / Cetirizine metabolite Negative Negative 05/19/2024 7:46 PM EDT [facility] Ibuprofen Negative Negative 05/19/2024 7:46 PM EDT [facility] Imipramine Negative Negative 05/19/2024 7:46 PM EDT [facility] Ketamine Negative Negative 05/19/2024 7:46 PM EDT [facility] Labetolol Negative Negative 05/19/2024 7:46 PM EDT [facility] Lamotrigine Negative Negative 05/19/2024 7:46 PM EDT [facility] Levetiracetam Negative Negative 05/19/2024 7:46 PM EDT [facility] Lidocaine Negative Negative 05/19/2024 7:46 PM EDT [facility] MDA Negative Negative 05/19/2024 7:46 PM EDT [facility] MDMA Negative Negative 05/19/2024 7:46 PM EDT [facility] Memantine Negative Negative 05/19/2024 7:46 PM EDT [facility] Meperidine Negative Negative 05/19/2024 7:46 PM EDT [facility] Meprobamate Negative Negative 05/19/2024 7:46 PM EDT [facility] Metaxalone Negative Negative 05/19/2024 7:46 PM EDT [facility] Methamphetamine Negative Negative 7:46 PM EDT [facility] Methocarbamol Negative Negative 05/19/2024 7:46 PM EDT [facility] Methylecgonine Negative Negative 05/19/2024 7:46 PM EDT [facility] Metoclopramide Negative Negative 05/19/2024 7:46 PM EDT [facility] Metoprolol Negative Negative 05/19/2024 7:46 PM EDT [facility] Metronidazole Negative Negative 05/19/2024 7:46 PM EDT [facility] Midazolam Negative Negative 05/19/2024 7:46 PM EDT [facility] Midazolam Metabolite Negative Negative 05/19/2024 7:46 PM EDT [facility] Mirtazapine Negative Negative 05/19/2024 7:46 PM EDT [facility] Misc Test Result Positive(A) Negative 024 7:46 PM EDT [facility] Comment:Gabapentin detected Naproxen Negative Negative 05/19/2024 7:46 PM EDT [facility] Nefazodone Negative Negative 05/19/2024 7:46 PM EDT [facility] Norfentanyl Negative Negative 05/19/2024 7:46 PM EDT [facility] Nortriptyline Negative Negative 05/19/2024 7:46 PM EDT [facility] Ordanstron Negative Negative 05/19/2024 7:46 PM EDT [facility] Oxcarbazepine Negative Negative 05/19/2024 7:46 PM EDT [facility] Oxycodone Negative Negative 05/19/2024 7:46 PM EDT [facility] Paroxethine Negative Negative 05/19/2024 7:46 PM EDT [facility] Phenobarbital Negative Negative 05/19/2024 7:46 PM EDT [facility] Phentermine Negative Negative 05/19/2024 7:46 PM EDT [facility] Phenytoin Negative Negative 05/19/2024 7:46 PM EDT [facility] Primidone Negative Negative 05/19/2024 7:46 PM EDT [facility] Promethazine Negative Negative 05/19/2024 7:46 PM EDT [facility] Propofol Negative Negative 05/19/2024 7:46 PM EDT [facility] Propranolol Negative Negative 05/19/2024 7:46 PM EDT [facility] Quetiapine Negative Negative 05/19/2024 7:46 PM EDT [facility] Quinine Negative Negative 05/19/2024 7:46 PM EDT [facility] Rantidine Negative Negative 05/19/2024 7:46 PM EDT [facility] Sertraline Negative Negative 05/19/2024 7:46 PM EDT [facility] Spironolactone Negative Negative 05/19/2024 7:46 PM EDT [facility] Tizanidine Negative Negative 05/19/2024 7:46 PM EDT [facility] Topiramate Negative Negative 05/19/2024 7:46 PM EDT [facility] Tramadol Negative Negative 05/19/2024 7:46 PM EDT [facility] Trazadone/ Trazadone metabolite Negative Negative 05/19/2024 7:46 PM EDT [facility] Trimethoprim Negative Negative 05/19/2024 7:46 PM EDT [facility] Valproic Acid Negative Negative 05/19/2024 7:46 PM EDT [facility] Venlafaxine Negative Negative 05/19/2024 7:46 PM EDT [facility] Verapamil Negative Negative 05/19/2024 7:46 PM EDT [facility] Zolpidem Negative Negative 05/19/2024 7:46 PM EDT [facility] Urine Urine specimen obtained by clean catch procedure / Unknown Non-blood Collection / Unknown 05/18/2024 1:23 AM EDT 05/18/2024 1:30 AM EDT Narrative [facility] - 05/19/2024 7:46 PM EDT The [...] developed and its performance characteristics determined by [facility].It has not been cleared or approved by the FDA.The laboratory is regulated under CLIA as qualified to perform high-complexity testing. This test is used for clinical purposes. Testing is performed at the [facility], Special Chemistry Laboratory. us Fer W Ciro TABLET MAKING MACHINE OPERATOR, DNP LAB URINE ORDERABLES Fi nal Result Performing Organization Address [facility] Co de Phone Number [facility] [address] [place] [address] * POCT glucose meter (05/17/2024 11:43 PM EDT) POCT Glucose 89 74 - 99 mg/dL 05/17/2024 11:45 PM EDT [facility] Comment:Accuracy of a glucos e result obtained from a capillary whole blood specimen relies upon adequate, non-compromised capillary blood flow. If the capillary glucose result is not consistent with the patient's clinical signs and symptoms, glucose testing should be repeated with either an arterial or venous sample on the glucometer or sent to the main labortory for testing. Comment 05/17/2024 11:45 PM EDT [facility] Photographic Equipment Assembler ID Reuben Guerra 11:45 PM EDT [facility] Device ID [id number] 05/17/2024 11:45 PM EDT [facility] Specimen Type POC Capillary 05/17/2024 11:45 PM EDT [facility] Blood Capillary blood specimen / Unknown 05/17/2024 11:43 PM EDT 05/17/2024 11:45 PM EDT Bob Zuleta MD LAB POINT OF CARE TE ST DOCKED DEVICE UNSOLICITED RESULTS Final Result Performing Organization Address [facility] Co de Phone Number [facility] [address] [place] [address] * US Abdomen Focused Region GB, Bile [...] ECG Atrial Rate 97 BPM MUSE ECG NE Interval 152 ms MUSE ECG QRSD Interval 64 ms MUSE ECG QT Interval 344 ms MUSE ECG QTC Interval 436 ms MUSE ECG P [place] 50 degrees MUSE ECG R [place] 2 degrees MUSE ECG T Wave [place] 48 degrees MUSE ECG Diagnosis Normal sinus rhythm MUSE ECG Diagnosis Cannot rule out Inferior infarct , age undetermined MUSE ECG Diagnosis Possible Anterolateral infarct , age undetermined MUSE ECG Diagnosis Abnormal ECG MUSE ECG Diagnosis MUSE ECG Diagnosis Confirmed by Diego Flower ([id number]) on 05/18/2024 11:18:03 AM MUSE ECG 05/17/2024 9:45 PM EDT 05/18/2024 11:18 AM EDT Fer Tanner APRN, DNP ECG ORDERABLES Final R esult MUSE ECG * SARS CoV-2/COVID-19 by PCR - Rapid (05/17/2024 9:27 PM EDT) [facility] SARS CoV-2/COVID-1 9 RNA PCR Result Not Detected Not Detected 05/17/2024 10:56 PM EDT [facility] Swab Nasopharyngeal structure / Unknown Non-blood Collection / Unknown 05/17/2024 9:27 PM EDT 05/17/2024 10:07 PM EDT Narrative [facility] - 05/17/2024 10:56 PM EDT This [...] Fer Tanner APRN, JOCELYN LAB MICROBIOLOGY - [facility] ORDERABLES Final Result [facility] [address] [place] [address] * Nasopharyngeal Respiratory Panel (05/17/2024 9:27 PM EDT) [facility] Nasopharyngeal Respiratory PCR Interpretation Not Detected for all analytes Not Detected for all analytes 05/17/2024 11:59 PM EDT [facility] Swab Nasopharyngeal structure / Unknown Non-blood Collection / Unknown 05/17/2024 9:27 PM EDT 05/17/2024 10:07 PM EDT Narrative [facility] - 05/17/2024 11:59 PM EDT This [...] Respiratory PCR Panel is performed using the [employer] instrument. ??This test is FDA approved for use with Nasopharyngeal swabs only. This test is used for clinical purposes. It should not be regarded as investigational or for research. The [facility] is certified under the Clinical Laboratory Improvement Amendments of 1988 (CLIA-88) as qualified to perform high complexity clinical laboratory testing. Fer Tanner APRN, DNP LAB MICROBIOLOGY - GENE RAL ORDERABLES Final Result Performing Organization Address City/[facility]/ZIP Co de Phone Number [facility] [address] [place] [address] * Vitamin B12 (05/17/2024 9:24 PM EDT) Vitamin B12, Serum 659 210 - 1,033 pg/mL 05/18/2024 1:02 AM EDT [facility] Blood Venous blood specimen / Unknown Venipuncture / Unknown 05/17/2024 9:24 PM EDT 05/17/2024 9:38 PM EDT Fer Tanner APRN, DNP LAB BLOOD ORDERABLES Fi nal Result [facility] [address] [place] [address] * (ABNORMAL) Bilirubin, direct (05/17/2024 9:24 PM EDT) Conjugated Bilirubin, Plasma 2.7(H) 0.0 - 0.3 mg/dL 05/17/2024 10:25 PM EDT [facility] Comment:Hemolyzed, result ma y be falsely decreased. Blood Venous blood specimen / Unknown Venipuncture / Unknown 05/17/2024 9:24 PM EDT 05/17/2024 9:38 PM EDT Fer Freyfang OLMOS, DNP LAB BLOOD ORDERABLES Fi nal Result Performing Organization Address City/[facility] Co de Phone Number [facility] [address] [place] [address] * Hemoglobin A1c (05/17/2024 9:24 PM EDT) Hemoglobin A1c 5.3 <5.7 % 05/17/2024 10:51 PM EDT [facility] Blood Venous blood specimen / Unknown Venipuncture / Unknown 05/17/2024 9:24 PM EDT 05/17/2024 9:42 PM EDT Narrative [facility] - 05/17/2024 10:51 PM EDT HA1C Interpretive Data: Diagnosis of Diabetes: Diabetic > or = 6.5% Pre-diabetic 5.7 to 6.4% Non-diabetic < or = 5.6% Glycemic Targets for Type I and Type II Diabetics: Non- Adults <7.0% Adults <6.0% Children and Adolescents <7.5% Source: ??[place] [employer]. Standards of medical care in diabetes,2017. Diabetes Care.2017:40 (suppl 1):S1-S135. HbA1c assay performed by an ion-exchange chromatography method that is certified traceable to the DCCT. Fer Marinafauzia OLMOS, [facility] LAB BLOOD ORDERABLES Fi nal Result Performing Organization Address City/[facility] Co de Phone Number [facility] [address] [place] [address] * (ABNORMAL) Lipase (05/17/2024 9:24 PM EDT) Lipase, Plasma 2,244(H) 19 - 63 U/L 05/17/2024 10:25 PM EDT [facility] Blood Venous blood specimen / Unknown Venipuncture / Unknown 05/17/2024 9:24 PM EDT 05/17/2024 9:38 PM EDT Fer W Mingua TABLET MAKING MACHINE OPERATOR, DNP LAB BLOOD ORDERABLES Fi nal Result Performing Organization Address City/[facility]/ZIP Co de Phone Number [facility] [address] [place] [address] * (ABNORMAL) Troponin T, High Sensitivity, 0 Hour Plasma, Reflex to 2 Hour (05/17/2024 9:24 PM EDT) Troponin T, High Sensitivity, 0 Hour 25(H) <14 ng/L 05/17/2024 10:08 PM EDT [facility] Blood Venous blood specimen / Unknown Venipuncture / Unknown 05/17/2024 9:24 PM EDT 05/17/2024 9:37 PM EDT [facility] TABLET MAKING MACHINE OPERATOR, DNP LAB BLOOD ORDERABLES Fi nal Result Performing Organization Address [facility] Co de Phone Number [facility] [address] [place] [address] * HIV 1 & 2 Antibody/Antigen Screen (05/17/2024 9:24 PM EDT) Pathologist [facility] HIV 1 & 2 Antibody/Antigen Screen Non Reactive Non Reactive 05/17/2024 10:20 PM EDT [facility] Comment:Screening for HIV 1 & 2 antibodies, and P24 antigen is NONREACTIVE. No confirmatory testing is required. Blood Venous blood specimen / Unknown Venipuncture / Unknown 05/17/2024 9:24 PM EDT 05/17/2024 9:38 PM EDT [facility] W Mingua TABLET MAKING MACHINE OPERATOR, DNP LAB BLOOD ORDERABLES Fi nal Result Performing Organization Address City/[facility]/ZIP Co de Phone Number [facility] [address] [place] [address] * (ABNORMAL) GGT (05/17/2024 9:24 PM EDT) GGT, Plasma 451(H) 5 - 36 U/L 05/17/2024 10:08 PM EDT [facility] Blood Venous blood specimen / Unknown Venipuncture / Unknown 05/17/2024 9:24 PM EDT 05/17/2024 9:38 PM EDT Fer W Ciro OLMOS, DNP LAB BLOOD ORDERABLES Fi nal Result [facility] [address] [place] [address] * (ABNORMAL) Ferritin (05/17/2024 9:24 PM EDT) Ferritin, Serum 980(H) 13 - 150 ng/mL 05/17/2024 10:20 PM EDT [facility] Blood Venous blood specimen / Unknown Venipuncture / Unknown 05/17/2024 9:24 PM EDT 05/17/2024 9:38 PM EDT Fer Supriya Ciro OLMOS, JOCELYN LAB BLOOD ORDERABLES Fi nal Result Performing Organization Address [facility]/ZIP Co de Phone Number [facility] [address] [place] [address] * (ABNORMAL) Lactate dehydrogenase (05/17/2024 9:24 PM EDT) Pathologist [facility] LDH, Plasma 536(H) 116 - 250 U/L 05/17/2024 10:08 PM EDT [facility] Comment:Hemolyzed, result ma y be falsely increased. Blood Venous blood specimen / Unknown Venipuncture / Unknown 05/17/2024 9:24 PM EDT 05/17/2024 9:38 PM EDT Fer W Ciro OLMOS, DNP LAB BLOOD ORDERABLES Fi nal Result [facility] [address] [place] [address] * (ABNORMAL) C-reactive protein (05/17/2024 9:24 PM EDT) Pathologist [facility] CRP, Plasma 105.6(H) <=8.0 mg/L 05/17/2024 10:08 PM EDT [facility] Blood Venous blood specimen / Unknown Venipuncture / Unknown 05/17/2024 9:24 PM EDT 05/17/2024 9:38 PM EDT Narrative [facility] - 05/17/2024 10:08 PM EDT This CRP test is appropriate for assessment of infection, systemic inflammation and/or tissue injury. To assess cardiovascular disease risk order high sensitivity CRP (CRPH). us Fer Tanner APRN, DNP LAB BLOOD ORDERABLES Fi nal Result [facility] [address] [place] [address] * Rojelio Coello Virus (EBV) Quantitative PCR (05/17/2024 9:24 PM EDT) Rojelio Coello Virus, Blood, Quant DNA Interpretation Not Detected Not Detected 05/18/2024 10:28 AM EDT [facility] Blood Venous blood specimen / Unknown Venipuncture / Unknown 05/17/2024 9:24 PM EDT 05/17/2024 9:38 PM EDT Narrative [facility] - 05/18/2024 10:28 AM EDT EBV [...] developed and it's performance characteristics determined by [facility] as appropriate for clinical purposes. [...] developed and it's performance characteristics determined by [facility] as appropriate for clinical purposes. This assay has not been cleared or approved by the FDA, but is performed in a CLIA regulated laboratory that is qualified to perform high-complexity testing. Fer W Ciro OLMOS, [facility] BLOOD ORDERABLES Fi nal Result Performing Organization Address [facility] Co de Phone Number [facility] [address] [place] [address] * Cytomegalovirus (CMV) Quantitative PCR (05/17/2024 9:24 PM EDT) [facility] Cytomegalovirus (CMV) Quantitative Interpretation Not Detected Not Detected 05/18/2024 2:29 PM EDT [facility] Blood Venous blood specimen / Unknown Venipuncture / Unknown 05/17/2024 9:24 PM EDT 05/17/2024 9:38 PM EDT Narrative [facility] - 05/18/2024 2:29 PM EDT The [employer] M2000 CMV test is a Real Time [...] is FDA approved for clinical use. Fer Supriya Tanner APRN, [facility] BLOOD ORDERABLES Fi nal Result Performing Organization Address [facility] Co de Phone Number [facility] [address] [place] [address] * Hepatitis panel, acute (05/17/2024 9:24 PM EDT) [facility] Hepatitis B Surf Antigen Negative Negative 05/17/2024 11:21 PM EDT [facility] Hepatitis C Antibody Negative Negative 05/17/2024 11:21 PM EDT [facility] Hepatitis A Antibody IgM Negative Negative 05/17/2024 11:21 PM EDT [facility] Hepatitis B Core Antibody IgM Negative Negative 05/17/2024 11:21 PM EDT [facility] Blood Venous blood specimen / Unknown Venipuncture / Unknown 05/17/2024 9:24 PM EDT 05/17/2024 9:38 PM EDT us Fer W Ciro TABLET MAKING MACHINE OPERATOR, DNP LAB BLOOD ORDERABLES Fi nal Result [facility] [address] [place] [address] * Lipid panel (05/17/2024 9:24 PM EDT) Cholesterol, Plasma 137 <200 mg/dL 05/17/2024 10:08 PM EDT [facility] Comment: Cholesterol Reference Range (age >17 years): Desirable ? <200 mg/dL Borderline ? 200 to 239 mg/dL Undesirable ? >239 mg/dL HDL 64 >=50 mg/dL 05/17/2024 10:08 PM EDT [facility] Comment: HDL Cholesterol Reference Ranges (age >17 years): Female, acceptable ?? > or = 50 mg/dL Male, acceptable ? > or = 40 mg/dL Triglycerides, Plasma 69 <150 mg/dL 05/17/2024 10:08 PM EDT [facility] Comment: Triglyceride Reference Range (age >17 years): Desirable: ??<150 mg/dL Borderline high: ??150 to 199 mg/dL High: ??200 to 499 mg/dL Very high: ??>499 mg/dL Increased risk of pancreatitis: ??>1000 mg/dL Cholesterol/HDL Ratio 2 05/17/2024 10:08 PM EDT [facility] LDL, Calculated 59 <100 mg/dL 10/18/202 4 10:08 PM EDT [facility] Comment: LDL Cholesterol Reference Range (age [...] 12 hours? No 05/17/2024 10:08 PM EDT [facility] Blood Venous blood specimen / Unknown Venipuncture / Unknown 05/17/2024 9:24 PM EDT 05/17/2024 9:37 PM EDT Fer Tanner APRN, [facility] LAB BLOOD ORDERABLES Fi nal Result Performing Organization Address City/[facility]/ZIP Co de Phone Number [facility] [address] [place] [address] * Blood Culture (Aerobic/Anaerobet Set) (05/17/2024 9:24 PM EDT) Culture No growth at day 5 CATHERINE 05/22/2024 11:01 PM EDT [facility] Blood Structure of part of right upper limb / Unknown Venipuncture / Unknown 05/17/2024 9:24 PM EDT 05/17/2024 10:13 PM EDT Fer Tanner APRN, DNP LAB MICROBIOLOGY - GENE RAL ORDERABLES Final Result Performing Organization Address [facility]/ZIP Co de Phone Number [facility] [address] [place] [address] * (ABNORMAL) Phosphorus (05/17/2024 9:24 PM EDT) Phosphorus, Plasma 5.2(H) 2.5 - 4.5 mg/dL 05/17/2024 10:08 PM EDT [facility] Blood Venous blood specimen / Unknown Venipuncture / Unknown 05/17/2024 9:24 PM EDT 05/17/2024 9:37 PM EDT Fer W Ciro OLMOS, [facility] LAB BLOOD ORDERABLES Fi nal Result Performing Organization Address City/[facility]/ZIP Co de Phone Number [facility] [address] [place] [address] * (ABNORMAL) Magnesium (05/17/2024 9:24 PM EDT) [facility] Magnesium, Plasma 1.5(L) 1.9 - 2.4 mg/dL 05/17/2024 10:08 PM EDT [facility] Blood Venous blood specimen / Unknown Venipuncture / Unknown 05/17/2024 9:24 PM EDT 05/17/2024 9:37 PM EDT Fer Tanner APRN, [facility] LAB BLOOD ORDERABLES Fi nal Result Performing Organization Address City/[facility] de Phone Number [facility] [address] [place] [address] * (ABNORMAL) CBC and differential (05/17/2024 9:24 PM EDT) [facility] WBC Count 3.10(L) 3.70 - 10.30 10*3/uL LAB HEMATOLOGY METHOD 05/17/2024 10:58 PM EDT [facility] RBC Count 5.04 3.90 - 5.20 10*6/uL LAB HEMATOLOGY METHOD 05/17/2024 10:58 PM EDT [facility] HGB 18.1(H) 11.2 - 15.7 g/dL LAB HEMATOLOGY METHOD 05/17/2024 10:58 PM EDT [facility] HCT 54.0(H) 34.0 - 45.0 % LAB HEMATOLOGY METHOD 05/17/2024 10:58 PM EDT [facility] Platelet Count 65(L) 155 - 369 10*3/uL LAB HEMATOLOGY METHOD 05/17/2024 10:58 PM EDT [facility] MCV 107(H) 79 - 98 fL LAB HEMATOLOGY METHOD 05/17/2024 10:58 PM EDT [facility] MCH 35.9(H) 26.0 - 32.0 pg LAB HEMATOLOGY METHOD 05/17/2024 10:58 PM EDT [facility] MCHC 33.5 30.7 - 35.5 g/dL LAB HEMATOLOGY METHOD 05/17/2024 10:58 PM EDT [facility] RDW 17.1(H) 11.5 - 14.5 % LAB HEMATOLOGY METHOD 05/17/2024 10:58 PM EDT [facility] MPV 10.5 8.8 - 12.5 fL LAB HEMATOLOGY METHOD 05/17/2024 10:58 PM EDT [facility] nRBC 0.0 <=0.0 per 100 WBCs LAB HEMATOLOGY METHOD 05/17/2024 10:58 PM EDT [facility] Differential Type Automated LAB HEMATOLOGY METHOD 05/17/2024 10:58 PM EDT [facility] Neutrophils % 92 % LAB HEMATOLOGY METHOD 05/17/2024 10:58 PM EDT [facility] Lymphocytes % 3 % LAB HEMATOLOGY METHOD 05/17/2024 10:58 PM EDT [facility] Monocytes % 4 % LAB HEMATOLOGY METHOD 05/17/2024 10:58 PM EDT [facility] Eosinophils % 0 % LAB HEMATOLOGY METHOD 05/17/2024 10:58 PM EDT [facility] Basophils % 0 % LAB HEMATOLOGY METHOD 05/17/2024 10:58 PM EDT [facility] Immature Granulocytes % 1 % LAB HEMATOLOGY METHOD 05/17/2024 10:58 PM EDT [facility] Neutrophils Absolute 2.86 1.60 - 6.10 10*3/uL LAB HEMATOLOGY METHOD 05/17/2024 10:58 PM EDT [facility] Lymphocytes Absolute 0.08(L) 1.20 - 3.90 10*3/uL LAB HEMATOLOGY METHOD 05/17/2024 10:58 PM EDT [facility] Monocytes Absolute 0.12(L) 0.30 - 0.90 10*3/uL LAB HEMATOLOGY METHOD 05/17/2024 10:58 PM EDT [facility] Eosinophils Absolute 0.01 0.00 - 0.50 10*3/uL LAB HEMATOLOGY METHOD 05/17/2024 10:58 PM EDT [facility] Basophils Absolute 0.01 0.00 - 0.10 10*3/uL LAB HEMATOLOGY METHOD 05/17/2024 10:58 PM EDT [facility] Immature Granulocytes Absolute 0.02 0.00 - 0.06 10*3/uL LAB HEMATOLOGY METHOD 05/17/2024 10:58 PM EDT [facility] Blood Venous blood specimen / Unknown Venipuncture / Unknown 05/17/2024 9:24 PM EDT 05/17/2024 9:42 PM EDT Narrative [facility] - 05/17/2024 10:58 PM EDT Therapeutic decision making should be based on absolute values, rather than percentages. Fer Tanner APRN, DNP LAB BLOOD ORDERABLES Fi nal Result [facility] [address] [place] [address] * (ABNORMAL) Comprehensive metabolic panel (05/17/2024 9:24 PM EDT) Glucose, Plasma 104(H) 74 - 99 mg/dL 05/17/2024 10:08 PM EDT [facility] BUN, Plasma 30(H) 8 - 23 mg/dL 05/17/2024 10:08 PM EDT [facility] Creatinine, Plasma 1.00 0.60 - 1.10 mg/dL 05/17/2024 10:08 PM EDT [facility] BUN/Creatinine Ratio 30 05/17/2024 10:08 PM EDT [facility] Sodium, Plasma 140 136 - 145 mmol/L 05/17/2024 10:08 PM EDT [facility] Potassium, Plasma 4.8 3.6 - 4.9 mmol/L 05/17/2024 10:08 PM EDT [facility] Comment:Hemolyzed, result ma y be falsely increased. Chloride, Plasma 106 97 - 107 mmol/L 05/17/2024 10:08 PM EDT [facility] CO2, Plasma 20(L) 22 - 29 mmol/L 05/17/2024 10:08 PM EDT [facility] Anion Gap 14 6 - 16 mmol/L 05/17/2024 10:08 PM EDT [facility] Total Calcium, Plasma 8.8(L) 8.9 - 10.2 mg/dL 05/17/2024 10:08 PM EDT [facility] Total Protein 6.3 6.3 - 7.9 g/dL 05/17/2024 10:08 PM EDT [facility] Albumin, Plasma 3.3(L) 3.5 - 5.2 g/dL 05/17/2024 10:08 PM EDT [facility] AST, Plasma 464(H) 10 - 35 U/L 05/17/2024 10:08 PM EDT [facility] Comment:Hemolyzed, result ma y be falsely increased. ALT, Plasma 372(H) 10 - 35 U/L 05/17/2024 10:08 PM EDT [facility] Alkaline Phosphatase, Plasma 216(H) 46 - 142 U/L 05/17/2024 10:08 PM EDT [facility] Total Bilirubin, Plasma 4.5(H) 0.2 - 1.1 mg/dL 05/17/2024 10:08 PM EDT [facility] eGFRcr 57.8 mL/min/1.7 3m*2 05/17/2024 10:08 PM EDT [facility] Comment:Reported eGFRcr in m L/min/1.73m2 is based the CKD-EPI 2020 equation that does not use a race coefficient. Blood Venous blood specimen / Unknown Venipuncture / Unknown 05/17/2024 9:24 PM EDT 05/17/2024 9:38 PM EDT us Fer W Ciro TABLET MAKING MACHINE OPERATOR, DNP LAB BLOOD ORDERABLES Fi nal Result [facility] [address] [place] [address] * XR Chest 1 View (05/17/2024 9:20 [...] MD on 05/17/2024 9:22 PM Fer Tanner TABLET MAKING MACHINE OPERATOR, DNP IMG XR PROCEDURES Final Result documented in this encounter Visit Diagnoses Diagnosis Other acute pancreatitis without infection or necrosis- Primary Transaminitis Nonspecific elevation of levels of transaminase or lactic acid dehydrogenase (LDH) Syncopal episodes Syncope and collapse documented in this encounter Admitting Diagnoses Diagnosis Other acute pancreatitis without infection or necrosis documented in this encounter Administered Medications Inactive Administered Medications - up to 3 most recent administrations Medication Order MAR Action Action Date Dose Rate Site acetaminophen (Tylenol) tablet 650 mg 650 mg, Oral, Every 4 hours PRN, Starting on 05/19/24 at 1358, Until Alina 05/23/24 at 1806, Routine, headaches, fever Given 05/22/2024 8:01 PM EDT 650 mg Given 05/22/2024 6:51 AM EDT 650 mg Given 05/21/2024 8:44 PM EDT 650 mg dextrose 10 % (D10W) bolus 125 mL 125 mL, Intravenous, Every 15 min PRN, Starting on 05/18/24 at 0012, Until Alina 05/23/24 at 1806, Administer over 15 Minutes, Routine, low blood sugar per Hypoglycemia Prevention and Treatment protocol. New Bag 05/21/2024 9:00 PM EDT 125 mL 500 mL/hr New Bag 05/19/2024 6:16 PM EDT 250 mL 999 mL/hr New Bag 05/18/2024 6:05 AM EDT 125 mL 500 mL/hr dextrose 5 % and lactated Ringer's infusion 150 mL/hr, Intravenous, Continuous, Starting on 05/18/24 at 0645, Until 05/18/24 at 1703, Routine Rate/Dose Verify 05/18/2024 3:00 PM EDT 150 mL/hr 150 mL/hr Rate/Dose Change 05/18/2024 1:41 PM EDT 150 mL/hr 150 mL/ hr Rate/Dose Change 05/18/2024 9:26 AM EDT 125 mL/hr 125 mL/ hr dextrose 5 % and lactated Ringer's infusion 200 mL/hr, Intravenous, Continuous, Starting on 05/18/24 at 1515, Until [place] 05/19/24 at 1548, Routine New Bag 05/18/2024 10:39 PM EDT 200 mL/hr 200 mL/hr Rate/Dose Change 05/18/2024 3:49 PM EDT 200 mL/hr 200 mL/ hr diazePAM (Valium) tablet 2 mg 2 mg, Oral, Once, 1 dose, On 05/18/24 at 0830, Routine Given 05/18/2024 11:15 AM EDT 2 mg enoxaparin (Lovenox) syringe 40 mg 40 mg, Subcutaneous, Daily, First dose on Mon05/17/24 at 2230, Until Discontinued, Routine Given 05/23/2024 8:38 AM EDT 40 mg Right Lower Abdomen Given 05/22/2024 8:18 AM EDT 40 mg Ri ght Lower Abdomen Given 05/21/2024 8:19 AM EDT 40 mg Le ft Lower Abdomen ergocalciferol (Vitamin D-2) capsule 50,000 Units 50,000 Units, Oral, Weekly, First dose on 05/20/24 at 0900, Until Discontinued, Routine Given 05/20/2024 8:35 AM EDT 50,000 Units furosemide (Lasix) tablet 20 mg 20 mg, Oral, Daily, First dose on Mon05/21/24 at 1145, Until Discontinued, Routine Given 05/23/2024 8:37 AM EDT 20 mg Given 05/22/2024 8:18 AM EDT 20 mg Given 05/21/2024 11:41 AM EDT 20 mg gabapentin (Neurontin) capsule 200 mg 200 mg, Oral, Daily, First dose on Mon05/22/24 at 0515, Until Discontinued, Routine Given 05/23/2024 8:3 7 AM EDT 200 mg Given 05/22/2024 5:34 AM EDT 200 mg gabapentin (Neurontin) capsule 600 mg 600 mg, Oral, Nightly, First dose (after last modification) on 05/18/24 at 2100, Until Discontinued, Routine Given 05/22/2024 8:01 PM EDT 600 mg Given 05/21/2024 8:44 PM EDT 600 mg Given 05/20/2024 9:13 PM EDT 600 mg gadobutrol (Gadavist) injection 7.5 mmol 7.5 mmol (rounded from 7.54 mmol = 0.1 mL/kg ? 75.4 kg), Intravenous, Once in imaging, 1 dose, Starting on 05/18/24 at 1200, Until 05/18/24 at 1248, Routine, Imaging Protocol Orders Given 05/18/2024 12:48 PM EDT 7.5 mmol glucagon (human recombinant) injection 1 mg 1 mg, Intramuscular, Every 15 min PRN, Starting on 05/18/24 at 0012, Until [place] 05/23/24 at 1806, Routine, low blood sugar per Hypoglycemia Prevention and Treatment protocol glucose (Glutose) 40 % oral gel 15 grams of glucose 15 grams of glucose, Sublingual, Every 15 min PRN, Starting on 05/18/24 at 0012, Until Al[place] 05/23/24 at 1806, Routine, low blood sugar, per Hypoglycemia Prevention and Treatment protocol HYDROmorphone (Dilaudid) injection 0.25 mg 0.25 mg, Intravenous, Every 2 hour PRN, Starting on Mon05/17/24 at 2058, Until 05/19/24 at 1058, Routine, severe breakthrough pain, stop after 48h Given 05/19/2024 7:33 AM EDT 0.25 mg Given 05/18/2024 10:47 PM EDT 0.25 mg Given 05/18/2024 7:08 PM EDT 0.25 mg HYDROmorphone (Dilaudid) injection 0.5 mg 0.5 mg, Intravenous, Every 2 hour PRN, Starting on [place] 05/19/24 at 1057, Until [place] 05/19/24 at 1416, Routine, severe breakthrough pain, stop after 48h Given 05/19/2024 11:17 AM EDT 0.5 mg HYDROmorphone (Dilaudid) injection 0.5 mg 0.5 mg, Intravenous, Every 4 hours PRN, Starting on 05/19/24 at 1416, Until 05/20/24 at 1022, Routine, severe breakthrough pain Given 05/20/2024 7:47 AM EDT 0.5 mg Given 05/19/2024 8:05 PM EDT 0.5 mg Given 05/19/2024 3:04 PM EDT 0.5 mg HYDROmorphone (Dilaudid) injection 0.5 mg 0.5 mg, Intravenous, Every 4 hours PRN, Starting on 05/20/24 at 1018, Until Mon05/22/24 at 1052, Routine, severe breakthrough pain, one hour after oxycodone if not covered Given 05/20/2024 6:32 PM EDT 0.5 mg iohexol (OMNIPaque) 9 MG/ML oral contrast 500 mL 500 mL, Oral, Once in imaging, 1 dose, Starting on Mon05/19/24 at 1318, Until [place] 05/23/24 at 1806, Routine, Imaging Protocol Orders ipratropium-albuterol (Duo-Neb) 0.5-2.5 mg/3 mL nebulizer solution 3 mL 3 mL, Nebulization, Every 6 hours PRN, Starting on Mon05/19/24 at 1953, Until [place] 05/23/24 at 1806, Routine, wheezing Given 05/21/2024 1:34 AM EDT 3 mL Given 05/19/2024 8:57 PM EDT 3 mL lactated Ringer's bolus 1,000 mL 1,000 mL, Intravenous, Once, 1 dose, On Mon05/17/24 at 2245, Administer over 2 Hours, Routine New Bag 05/17/2024 11:20 PM EDT 1,000 mL 500 mL/hr lactated Ringer's infusion 125 mL/hr, Intravenous, Continuous, Starting on Mon05/17/24 at 2115, Until Mon05/18/24 at 0622, Routine New Bag 05/17/2024 10:10 PM EDT 125 mL/hr 125 mL/hr levothyroxine (Synthroid, Levoxyl) tablet 75 mcg 75 mcg, Oral, Daily before breakfast, First dose on 05/18/24 at 0730, Until Discontinued, Routine Given 05/23/2024 8:38 AM EDT 75 mcg Given 05/22/2024 7:53 AM EDT 75 mcg Given 05/21/2024 7:00 AM EDT 75 mcg lisinopril tablet 5 mg 5 mg, Oral, Daily, First dose on 05/18/24 at 0900, Until Discontinued, Routine Given 05/23/2024 8:37 AM EDT 5 mg Given 05/22/2024 8:18 AM EDT 5 mg Given 05/21/2024 8:19 AM EDT 5 mg magnesium sulfate IVPB 2 g 2 g, Intravenous, Once, 1 dose, On Mon05/17/24 at 2230, Routine New Bag 05/17/2024 11:25 PM EDT 2 g 25 mL/hr ondansetron (Zofran) injection 4 mg 4 mg, Intravenous, Every 6 hours PRN, Starting on Mon05/17/24 at 2031, Until Mon05/22/24 at 1304, Routine, vomiting, nausea Given 05/21/2024 8:50 PM EDT 4 mg Given 05/21/2024 11:40 AM EDT 4 mg ondansetron ODT (Zofran-ODT) disintegrating tablet 4 mg 4 mg, Oral, Every 6 hours PRN, Starting on Mon05/22/24 at 1306, Until [place] 05/23/24 at 1806, Routine, nausea, vomiting oxyCODONE (Roxicodone) immediate release tablet 10 mg 10 mg, Oral, Every 4 hours PRN, Starting on Mon05/21/24 at 1834, Until Mon05/23/24 at 1806, Routine, moderate pain, severe pain, first line Given 05/23/2024 8:37 AM EDT 10 mg Given 05/22/2024 8:01 PM EDT 10 mg Given 05/22/2024 11:10 AM EDT 10 mg oxyCODONE (Roxicodone) immediate release tablet 5 mg 5 mg, Oral, Every 6 hours PRN, Starting on Mon05/17/24 at 2208, Until Mon05/20/24 at 1022, Routine, moderate pain Given 05/20/2024 3:43 AM EDT 5 mg oxyCODONE (Roxicodone) immediate release tablet 5 mg 5 mg, Oral, Every 4 hours PRN, Starting on Mon05/20/24 at 1018, Until Mon05/21/24 at 1834, Routine, moderate pain, severe pain, first line Given 05/21/2024 2 :51 PM EDT 5 mg Given 05/21/2024 8:18 AM EDT 5 mg Given 05/21/2024 1:37 AM EDT 5 mg piperacillin-tazobactam (Zosyn) injection 4.5 g 4.5 g, Intravenous, Every 6 hours, First dose on Mon05/18/24 at 0645, Until Discontinued, Routine Given 05/19/2024 6:55 AM EDT 4.5 g Given 05/19/2024 12:43 AM EDT 4.5 g Given 05/18/2024 7:01 PM EDT 4.5 g polyethylene glycol (Miralax) packet 17 g 17 g, Oral, Daily, First dose on Mon05/20/24 at 1045, Until Discontinued, Routine Given 05/23/2024 8:38 AM EDT 17 g Given 05/22/2024 8:18 AM EDT 17 g Given 05/21/2024 8:19 AM EDT 17 g potassium & sodium phosphates (Phos-NaK) 280-160-250 MG packet 1 packet 1 packet, Oral, 4 times daily with meals and nightly, First dose on Mon05/21/24 at 1845, Until Discontinued, Routine Given 05/22/2024 7:53 AM EDT Given 05/21/2024 8:44 PM EDT 1 packet Given 05/21/2024 6:36 PM EDT potassium chloride CR (Klor-Con) ER tablet 20 mEq 20 mEq, Oral, Daily, First dose on Mon05/21/24 at 1145, Until Discontinued, Routine Given 05/23/2024 8:3 7 AM EDT 20 mEq Given 05/22/2024 8:17 AM EDT 20 mEq Given 05/21/2024 11:40 AM EDT 20 mEq potassium chloride CR (Klor-Con) ER tablet 40 mEq 40 mEq, Oral, Once, 1 dose, On Mon05/21/24 at 1845, Routine Given 05/21/2024 6:36 PM EDT 40 mEq potassium chloride IVPB 10 mEq 10 mEq, Intravenous, Every 1 hour, 4 doses, First dose on Mon05/19/24 at 1445, Last dose on Mon05/19/24 at 1745, Routine New Bag 05/19/2024 9:05 PM EDT 10 mEq New Bag 05/19/2024 8:05 PM EDT 10 mEq New Bag 05/19/2024 4:00 PM EDT 10 mEq potassium phosphates 30 mmol in sodium chloride 0.9 % 500 mL infusion 510 mL, Intravenous, Once, 1 dose, On Mon05/22/24 at 0830, Administer over 4.5 Hours, Routine New Bag 05/22/2024 9:41 AM EDT 30 mmol 124.4 mL/hr Povidone-Iodine 5 % swab solution 1 Swab Nasal, Daily, 5 doses, First dose on Mon05/18/24 at 0900, Last dose on Mon05/22/24 at 0900, Routine Given 05/22/2024 8:29 AM EDT 1 Swab Given 05/21/2024 8:59 AM EDT 1 Swab Given 05/20/2024 8:35 AM EDT 1 Swab prochlorperazine (Compazine) injection 2.5 mg 2.5 mg, Intravenous, Every 6 hours PRN, Starting on Mon05/17/24 at 2102, Until [place] 05/23/24 at 1806, Routine, nausea, vomiting prochlorperazine (Compazine) injection 5 mg 5 mg, Intramuscular, Every 6 hours PRN, Starting on Mon05/17/24 at 2102, Until [place] 05/23/24 at 1806, Routine, nausea, vomiting senna (Senokot) tablet 8.6 mg 8.6 mg, Oral, Nightly, First dose on Mon05/20/24 at 2100, Until Discontinued, Routine Given 05/22/2024 8:0 1 PM EDT 8.6 mg Given 05/21/2024 8:44 PM EDT 8.6 mg Given 05/20/2024 9:13 PM EDT 8.6 mg sodium chloride 0.9 % flush 10 mL 10 mL, Intravenous, Every 12 hours, First dose on Mon05/17/24 at 2115, Until Discontinued, Routine Given 05/23/2024 8:38 AM EDT 10 mL Given 05/22/2024 8:02 PM EDT 10 mL Given 05/22/2024 8:29 AM EDT 10 mL sodium chloride 0.9 % flush 10 mL 10 mL, Intravenous, As needed, Starting on Mon05/17/24 at 2054, Until [place] 05/23/24 at 1806, Routine, line care sodium phosphates 30 mmol in sodium chloride 0.9 % 500 mL IVPB 30 mmol, Intravenous, Once, 1 dose, On Mon05/19/24 at 1445, Routine New Bag 05/19/2024 2:58 PM EDT 30 mmol documented in this encounter Active and Recently Administered Medications Times are shown in EDT. Scheduled Medication Order 05/21/2024 05/22/2024 05/23/2024 enoxaparin (Lovenox) syringe 40 mg 40 mg, Subcutaneous, Daily, First dose on Mon05/17/24 at 2230, Until Discontinued, Routine 0819 (Given - Provider: Hiwot Oro RN) 0818 (Given - Provider: Hiwot Oro RN) 0838 (Given - Provider: Xi Ryan RN) ergocalciferol (Vitamin D-2) capsule 50,000 Units 50,000 Units, Oral, Weekly, First dose on Mon05/20/24 at 0900, Until Discontinued, Routine furosemide (Lasix) tablet 20 mg 20 mg, Oral, Daily, First dose on Mon05/21/24 at 1145, Until Discontinued, Routine 1141 (Given - Provider: Hiwot Oro RN) 0818 (Given - Provider: Hiwot Oro RN) 0837 (Given - Provider: Xi Ryan RN) gabapentin (Neurontin) capsule 200 mg 200 mg, Oral, Daily, First dose on Mon05/22/24 at 0515, Until Discontinued, Routine 0534 (Given - Provider: Wanda Galdamez) 0837 (Given - Provider: Xi Ryan, KARLA) gabapentin (Neurontin) capsule 600 mg 600 mg, Oral, Nightly, First dose (after last modification) on 05/18/24 at 2100, Until Discontinued, Routine 2043 (Given - Provider: Wanda Galdamez) 2000 (Given - Provider: Beatriz Byrnes RN) iohexol (OMNIPaque) 9 MG/ML oral contrast 500 mL 500 mL, Oral, Once in imaging, 1 dose, Starting on 05/19/24 at 1318, Until [place] 05/23/24 at 1806, Routine, Imaging Protocol Orders levothyroxine (Synthroid, Levoxyl) tablet 75 mcg 75 mcg, Oral, Daily before breakfast, First dose on 05/18/24 at 0730, Until Discontinued, Routine 0700 (Given - Provider: Wanda Galdamez) 0753 (Given - Provider: Hiwot Oro RN) 0838 (Given - Provider: Xi Ryan RN) lisinopril tablet 5 mg 5 mg, Oral, Daily, First dose on 05/18/24 at 0900, Until Discontinued, Routine 0819 (Given - Provider: Hiwot Oro RN) 0818 (Given - Provider: Hiwot Oro RN) 0837 (Given - Provider: Xi Ryan RN) polyethylene glycol (Miralax) packet 17 g 17 g, Oral, Daily, First dose on 05/20/24 at 1045, Until Discontinued, Routine 0819 (Given - Provider: Hiwot Oro RN) 0818 (Given - Provider: Hiwot Oro, KARLA) 0838 (Given - Provider: Xi Ryan RN) potassium & sodium phosphates (Phos-NaK) 280-160-250 MG packet 1 packet (CANCELED) 1 packet, Oral, 4 times daily with meals and nightly, First dose on Mon05/21/24 at 1845, Until Discontinued, Routine 1836 (Given - Provider: Hiwot Oro RN)2043 (Given - Provider: Wanda Galdamez) 0753 (Given - Provider: Hiwot Oro RN) potassium chloride CR (Klor-Con) ER tablet 20 mEq 20 mEq, Oral, Daily, First dose on Mon05/21/24 at 1145, Until Discontinued, Routine 1140 (Given - Provider: Hiwot Oro RN) 0817 (Given - Provider: Hiwot Oro RN) 0837 (Given - Provider: Xi Ryan, KARLA) potassium chloride CR (Klor-Con) ER tablet 40 mEq (COMPLETED) 40 mEq, Oral, Once, 1 dose, On Mon05/21/24 at 1845, Routine 1836 (Given - Provider: Hiwot Oro RN) potassium phosphates 30 mmol in sodium chloride 0.9 % 500 mL infusion (COMPLETED) 510 mL, Intravenous, Once, 1 dose, On Mon05/22/24 at 0830, Administer over 4.5 Hours, Routine 0941 (New Bag - Provider: Hiwot Oro RN) Povidone-Iodine 5 % swab solution 1 Swab (COMPLETED) Nasal, Daily, 5 doses, First dose on Mon05/18/24 at 0900, Last dose on Mon05/22/24 at 0900, Routine 0859 (Given - Provider: Hiwot Oro RN) 0829 (Given - Provider: Hiwot Oro RN) senna (Senokot) tablet 8.6 mg 8.6 mg, Oral, Nightly, First dose on Mon05/20/24 at 2100, Until Discontinued, Routine 204 (Given - Provider: Wanda Galdamez) 2000 (Given - Provider: Beatriz Byrnes, KARLA) sodium chloride 0.9 % flush 10 mL(Linked Group 1) 10 mL, Intravenous, Every 12 hours, First dose on Mon05/17/24 at 2115, Until Discontinued, Routine 0859 (Given - Provider: Hiwot Oro RN)2102 (Given - Provider: Wanda Galdamez) 0829 (Given - Provider: Hiwot Oro RN)2001 (Given - Provider: Beatriz Byrnes, KARLA) 0838 (Given - Provider: Xi Ryan, KARLA) PRN Medication Order 05/21/2024 05/22/2024 05/23/2024 acetaminophen (Tylenol) tablet 650 mg 650 mg, Oral, Every 4 hours PRN, Starting on 05/19/24 at 1358, Until Alina 05/23/24 at 1806, Routine, headaches, fever 0137 (Given - Provider: Wanda Galdamez)0819 (Given - Provider: Hiwot Oro RN)2043 (Given - Provider: Wanda Galdamez) 06 (Given - Provider: Wanda Galdamez)2000 (Given - Provider: Beatriz Byrnes, KARLA) dextrose 10 % (D10W) bolus 125 mL(Linked Group 2) 125 mL, Intravenous, Every 15 min PRN, Starting on 05/18/24 at 0012, Until Alina 05/23/24 at 1806, Administer over 15 Minutes, Routine, low blood sugar per Hypoglycemia Prevention and Treatment protocol. 2099 (New Bag - Provider: Wanda Galdamez) glucagon (human recombinant) injection 1 mg(Linked Group 2) 1 mg, Intramuscular, Every 15 min PRN, Starting on 05/18/24 at 0012, Until Alina 05/23/24 at 1806, Routine, low blood sugar per Hypoglycemia Prevention and Treatment protocol 2100 (See Alternative - Provider: Wanda Galdamez) glucose (Glutose) 40 % oral gel 15 grams of glucose(Linked Group 2) 15 grams of glucose, Sublingual, Every 15 min PRN, Starting on 05/18/24 at 0012, Until Alina 05/23/24 at 1806, Routine, low blood sugar, per Hypoglycemia Prevention and Treatment protocol 2100 (See Alternative - Provider: Wanda Galdamez) ipratropium-albuterol (Duo-Neb) 0.5-2.5 mg/3 mL nebulizer solution 3 mL 3 mL, Nebulization, Every 6 hours PRN, Starting on 05/19/24 at 1953, Until Alina 05/23/24 at 1806, Routine, wheezing 0134 (Given - Provider: Ayde Banks) ondansetron (Zofran) injection 4 mg (CANCELED)(Linked Group 3) 4 mg, Intravenous, Every 6 hours PRN, Starting on Mon05/17/24 at 2031, Until 05/22/24 at 1304, Routine, vomiting, nausea 1140 (Given - Provider: Hiwot Oro RN)2049 (Given - Provider: Wanda Galdamez) ondansetron ODT (Zofran-ODT) disintegrating tablet 4 mg 4 mg, Oral, Every 6 hours PRN, Starting on Mon05/22/24 at 1306, Until Mon05/23/24 at 1806, Routine, nausea, vomiting oxyCODONE (Roxicodone) immediate release tablet 10 mg 10 mg, Oral, Every 4 hours PRN, Starting on Mon05/21/24 at 1834, Until Mon05/23/24 at 1806, Routine, moderate pain, severe pain, first line 2044 (Given - Provider: Wanda Galdamez) 0651 (Given - Provider: Wanda Galdamez)1110 (Given - Provider: Hiwot Oro, KARLA)2001 (Given - Provider: Beatriz Byrnes RN) 0837 (Given - Provider: Xi Ryan RN) oxyCODONE (Roxicodone) immediate release tablet 5 mg (CANCELED) 5 mg, Oral, Every 4 hours PRN, Starting on Mon05/20/24 at 1018, Until Mon05/21/24 at 1834, Routine, moderate pain, severe pain, first line 0137 (Given - Provider: Wanda Galdamez)0818 (Given - Provider: Hiwot Oro, KARLA)1451 (Given - Provider: Hiwot Oro, KARLA) prochlorperazine (Compazine) injection 2.5 mg(Linked Group 4) 2.5 mg, Intravenous, Every 6 hours PRN, Starting on Mon05/17/24 at 2102, Until Mon05/23/24 at 1806, Routine, nausea, vomiting prochlorperazine (Compazine) injection 5 mg(Linked Group 4) 5 mg, Intramuscular, Every 6 hours PRN, Starting on Mon05/17/24 at 2102, Until Mon05/23/24 at 1806, Routine, nausea, vomiting sodium chloride 0.9 % flush 10 mL(Linked Group 1) 10 mL, Intravenous, As needed, Starting on Mon05/17/24 at 2054, Until Mon05/23/24 at 1806, Routine, line care Linked Groups Order Group 1: Insert peripheral IV (CANCELED) Once, On Mon05/17/24 at 2055, For 1 occurrence And Saline lock IV (CANCELED) Once, On Mon05/17/24 at 2055, For 1 occurrence And sodium chloride 0.9 % flush 10 mLJump to med 10 mL, Intravenous, Every 12 hours, First dose on Mon05/17/24 at 2115, Until Discontinued, Routine And sodium chloride 0.9 % flush 10 mLJump to med 10 mL, Intravenous, As needed, Starting on Mon05/17/24 at 2054, Until Mon05/23/24 at 1806, Routine, line care Group 2: glucose (Glutose) 40 % oral gel 15 grams of glucoseJump to med 15 grams of glucose, Sublingual, Every 15 min PRN, Starting on 05/18/24 at 0012, Until Mon05/23/24 at 1806, Routine, low blood sugar, per Hypoglycemia Prevention and Treatment protocol Or dextrose 10 % (D10W) bolus 125 mLJump to med 125 mL, Intravenous, Every 15 min PRN, Starting on 05/18/24 at 0012, Until Mon05/23/24 at 1806, Administer over 15 Minutes, Routine, low blood sugar per Hypoglycemia Prevention and Treatment protocol. Or glucagon (human recombinant) injection 1 mgJump to med 1 mg, Intramuscular, Every 15 min PRN, Starting on 05/18/24 at 0012, Until Mon05/23/24 at 1806, Routine, low blood sugar per Hypoglycemia Prevention and Treatment protocol Group 3: ondansetron ODT (Zofran-ODT) disintegrating tablet 4 mg (CANCELED) 4 mg, Oral, Every 6 hours PRN, Starting on Mon05/17/24 at 203, Until Mon05/17/24 at 2208, Routine, nausea, vomiting Or ondansetron (Zofran) injection 4 mg (CANCELED)Jump to med 4 mg, Intravenous, Every 6 hours PRN, Starting on Mon05/17/24 at 203, Until Mon05/22/24 at 1304, Routine, vomiting, nausea Or ondansetron (Zofran) 4 MG/5ML solution 4 mg (CANCELED) 4 mg, Oral, Every 6 hours PRN, Starting on Mon05/17/24 at 2030, Until Mon05/17/24 at 2208, Routine, nausea, vomiting Group 4: prochlorperazine (Compazine) tablet 5 mg (CANCELED) 5 mg, Oral, Every 6 hours PRN, Starting on Mon05/17/24 at 2102, Until Mon05/17/24 at 2208, Routine, nausea, vomiting Or prochlorperazine (Compazine) suppository 25 mg (CANCELED) 25 mg, Rectal, Every 12 hours PRN, Starting on Mon05/17/24 at 2102, Until Mon05/17/24 at 2208, Routine, nausea, vomiting Or prochlorperazine (Compazine) injection 2.5 mgJump to med 2.5 mg, Intravenous, Every 6 hours PRN, Starting on Mon05/17/24 at 2102, Until Alina 05/23/24 at 1806, Routine, nausea, vomiting Or prochlorperazine (Compazine) injection 5 mgJump to med 5 mg, Intramuscular, Every 6 hours PRN, Starting on Mon05/17/24 at 2102, Until Mon05/23/24 at 1806, Routine, nausea, vomiting documented in this encounter Additional Health Concerns Infection Onset Date Last Indicated Resolved Time Respiratory Rule-Out 05/17/2024 05/17/2024 024 11:59 PM EDT Assessment Noted Time A fall risk assessment has been complete d for the patient 04/29/2024 1:49 PM EDT A Body Mass Index follow-up plan has been documented for the patient 05/23/2024 1:34 PM EDT documented as of this encounter Care Teams Director Information Security Relationship Specialty Start Date End Date Flaquita Dorsey DO [address] [place] [address] PCP - General 12/14/21 Aliyah Valencia MD [address] [place] [place], [place] [id number] Referring Physician 03/10/21 Conrado Iqabl MD [address] [place] [phone] Service Attending Cardiology 08/19/22 documented as of this encounter
--- OUTSIDE RECORDS SUMMARY | 2024-07-10 11:52 | XMS_ITS | Encounter Summary ---
Author Organization Healthcare Address [address] [id number] Care Team Providers Care Pit Operator Name Role Phone Aliyah Valencia MD Unavailable [phone] Flaquita Dorsey DO Primary Care Provider [phone]- [phone] Conrado Iqbal MD Unavailable Encounter Details Date Type Department Care Team (Late st Contact Info) Description 05/17/2024 Orders Only External Location [address] [place] [address] Ray Gomez MD [address] [place] [address] Social History Tobacco Use Types [...] place to sleep or slept in a long-term (including now)? No 05/20/2024 Utilities Answer Date [...] Description 08/05/2024 8:00 AM EST Office Visit [facility] [address] [place] [address] Penelope Carmona MD [address] [place] [address] 08/05/2024 9:30 AM EST Appointment [facility] 1 [address] [place] [address] 02/26/2025 9:30 AM EDT [facility]ointment [facility] Radha Lai Building [address] [place] [address] 02/26/2025 10:30 AM EDT Office Visit [facility] [address] [facility], [address]nd [place] [address] Berenice Resendez D, BOAT ASSEMBLER [address] [facility] [address] [place] [address] documented as of this encounter Procedures Procedure Name Priority Date/Time Associated Diagnosis Comments CT OUTSIDE IMAGES 05/17/2024 1:30 PM EDT documented in this encounter Results * CT OUTSIDE IMAGES (05/17/2024 1:30 PM EDT) Anatomical Region Laterality Modality Computed Tomogra phy 05/17/2024 1:30 PM EDT us Ray Gomez MD IMG CT PROCEDURES Final Resul t documented in this [...] documented as of this encounter Care Teams Pit Operator Relationship Specialty Start Date End Date Flaquita Dorsey DO [address] [place] [address] PCP - General 12/14/21 Aliyah Valencia MD [address] [place] [address] Referring Physician 03/10/21 Conrado Iqbal MD [address] [place] [phone] Service Attending Cardiology 08/19/22 documented as of this encounter
--- OUTSIDE RECORDS SUMMARY | 2024-07-10 11:52 | XMS_ITS | Encounter Summary ---
Author Organization Healthcare Address [address] [place] [address] Care Team Providers Care Textile Scrap Salvager Name Role Phone Aliyah Valencia MD Unavailable [phone] Flaquita Dorsey DO Primary Care Provider [phone]- [phone] Conrado Iqbal MD Unavailable Encounter Details Date Type Department Care Team (Latest Contact Info) Description 05/17/2024 Travel Social History Tobacco Use Types Packs/Day [...] AM EST Office Visit [facility] [address] [place] [address] Penelope Carmona MD 800 [facility] [address] [place] [address] 08/05/2024 9:30 AM EST Appointment [facility] 1 [address] [place] [address] 02/26/2025 9:30 AM EDT Appointment [facility] Radha Lai [facility] [address] [place] [address] 02/26/2025 10:30 AM EDT Office Visit [facility] [address] [facility], 2nd [place] [address] Berenice Resendez, SKIVER WELT END [address] [facility] Mayra Lai [facility] [address] [place] [address] documented as of this encounter [...] documented as of this encounter Care Teams Textile Scrap Salvager Relationship Specialty Start Date End Date Flaquita Dorsey DO [address] [place] [address] PCP - General 12/14/21 Aliyah Valencia MD [address] [place] [place] [address] Referring Physician 03/10/21 Conrado Iqbal MD [address] [place] [address] Service Attending Cardiology 08/19/22 documented as of this encounter
--- OUTSIDE RECORDS SUMMARY | 2024-07-10 11:52 | XMS_ITS | Encounter Summary ---
Author Organization Healthcare Address [address] [place] [address] Care Team Providers Care Cigarette Tipper Name Role Phone Aliyah Valencia MD Unavailable [phone] Flaquita Dorsey DO Primary Care Provider [phone] Conrado Iqbal MD Unavailable Encounter Details Date Type Department Care Team (Late st Contact Info) Description 05/22/2024 Telephone [facility] [address] [place] [address] Miriam Meyer, PharmD Social History Tobacco Use Types Packs/Day Years [...] place to sleep or slept in a senior care (including now)? No 05/20/2024 Utilities Answer Date [...] encounter Miscellaneous Notes * Telephone Encounter - Miriam Meyer, PharmD - 05/22/2024 10:17 AM EDT [facility] Review Reviewed patient's current medication list for drug interaction with specialty medication: No interaction identified Adherence Summary: No issues identified Adverse events/side effect summary: No adverse events/side effects identified Storage, disposal, and administration summary: No issues identified Condition Summary: Worsened - Current Condition: currently admitted with pancreatitis Plan of care goal: Improving or maintaining quality of life, Slow or prevent progression of disease, and Minimize/manage side effects or toxicities Therapeutic Goal Summary: Patient is achieving progress toward goal Patients therapy is appropriate to: Hold Did the patient have any additional questions or needs to be coordinated with additional members ofthe care team (Physical therapy, Social Work, etc)? no Summary: Pharmacist reviewed the plan of care in regards to specialty medication Cyclophosphamide for diagnosis fallopian tube cancer. Assessment: The patient was contacted to discuss change to their medication care plan. Therapy being held while being treated for another acute condition. Patient will resume treatment of Cyclophosphamide pending MD approval. Therapy is appropriate based on new physician order. Plan/Patient specific needs: [facility] patient's admission regarding chemotherapy status. Patient/caregiver participated in the development and expressed understanding of the plan of care. Patient/caregiver had no additional questions or concerns for the care team. Patient/caregiver voiced understanding of the goals with the regimen and agreed to attend follow up appointments to assess progress toward their goal. The plan of care will be reviewed at least annually, or more often if there is a need. Miriam Meyer PharmD documented in this encounter Plan of Treatment Upcoming Encounters Date Type Department Care Team (Late st Contact Info) Description 08/05/2024 8:00 AM EST Office Visit [facility] [address] [facility] [address] [place] [phone] Penelope Carmona MD [address] [facility] Mayra Joelle [facility] [address] [place] [address] 08/05/2024 9:30 AM EST Appointment [facility] 1 [address] [place] [address] 02/26/2025 9:30 AM EDT Appointment [facility] [address] [facility] [address] [place] [address] 02/26/2025 10:30 AM EDT Office Visit [facility] [address] [facility], [address]nd [place] [address] Berenice Resendez, ASSISTANT DEPARTMENT MANAGER [address] [facility] [address]ill[address] [facility] [address] [place] [address] documented as of this encounter Visit Diagnoses Not on filedocumented in this encounter Additional Health Concerns Assessment Noted Time A fall risk assessment has been complete d for the patient 04/29/2024 1:49 PM EDT A Body Mass Index follow-up plan has been documented for the patient 05/23/2024 1:34 PM EDT documented as of this encounter Care Teams Cigarette Tipper Relationship Specialty Start Date End Date Flaquita Dorsey DO [address] [place] [address] PCP - General 12/14/21 Aliyah Valencia MD [address] [place] [place] [address] Referring Physician 03/10/21 Conrado Iqbal MD [address] [place] [phone] Service Attending Cardiology 08/19/22 documented as of this encounter
--- OUTSIDE RECORDS SUMMARY | 2024-07-10 11:53 | XMS_ITS | Encounter Summary ---
Author Organization [facility] Address [address] [place], [place] [id number] Care Team Providers Care School Bus Driver/Mechanic Name Role Phone Aliyah Valencia MD Unavailable [phone] Flaquita Dorsey DO Primary Care Provider [phone] Conrado Iqbal MD Unavailable Encounter Details Date Type Department Care Team (Late st Contact Info) Description 02/28/2024 Telephone [facility] [address] [place] [address] Shy Mcgrath, PharmD [facility] [address] [place] [address] Social History Tobacco Use Types Packs/Day Years Used Date Smoking Tobacco: Former Cigarettes 0.5 22 1 976 - 1998 Passive Smoke Exposure: Past Smokeless Tobacco: Former Alcohol Use Standard Drinks/Week Comments Not Currently 0 (1 standard drink = 0.6 oz pur e alcohol) PHQ-2 Answer Date Recorded Patient Health Questionnaire-2 Score 0 02/05/2024 PHQ-2A Answer Date Recorded Patient Health Questionnaire-2 Score 0 07/10/2023 Comments No Sex and Gender Information Value Date Recorded Sex Assigned at Not on file Legal Sex Female 8:51 PM EDT Gender Identity Not on file Sexual Orientation Not on file documented as of this encounter Miscellaneous Notes * Telephone Encounter - Shy Mcgrath, PharmD - 02/28/2024 4:07 PM EDT [facility] Plan of Care - [facility] Review Reviewed patient's current medication list for drug interaction with specialty medication: No interaction identified Adherence Summary: Issues identified - No clinical intervention needed; Why? MD instructed her to HOLD therapy now until further notice - liver enzymes up --- she will have repeat blood work and MD will monitor Adverse events/side effect summary: Experienced adverse events/side effects, Clinical Intervention Not Needed - Adverse event description: MD instructed her to HOLD therapy now until further notice - liver enzymes up --- she will have repeat blood work and MD will monitor Storage, disposal, and administration summary: No issues identified Condition Summary: Stable Plan of care goal: Improving or maintaining quality of life, Slow or prevent progression of disease, and Minimize/manage side effects or toxicities Therapeutic Goal Summary: Unable to assess Patients therapy is appropriate to: Hold Did the patient have any additional questions or needs to be coordinated with additional members ofthe care team (Physical therapy, Social Work, etc)? no Summary: Pharmacist reviewed the plan of care in regards to specialty medication Cyclophosphamide 50mg for diagnosis fallopian tube cancer. Assessment: Daniela reports today that liver enzymes have risen and MD has instructed her to hold until instructed to restart. She has 11 pills on hand at this time. Plan/Patient specific needs: blood work, monitoring for liver toxicity Patient/caregiver participated in the development and expressed [...] more often if there is a need. Shy Mcgrath, Allison documented in this encounter Plan of Treatment Upcoming Encounters Date Type Department Care Team (Late st Contact Info) Description 08/05/2024 8:00 AM EST Office [facility] [address] [place] [address] Penelope Carmona MD [address] [place] [address] 08/05/2024 9:30 AM EST Appointment [facility] 1 [address] [place] [address] 02/26/2025 9:30 AM EDT Appointment [facility] Radha Lai Building [address] [place] [address] 02/26/2025 10:30 AM EDT Office Visit [facility] [address] [facility], [address]nd [place] [address] Berenice Resendez, OVEN BUILDER [address] [facility] [address] [place] [address] documented as of this encounter Visit Diagnoses Not on filedocumented in this encounter Additional Health Concerns Assessment Noted Time A fall risk assessment has been complete d for the patient 02/26/2024 4:14 PM EDT A Body Mass Index follow-up plan has been documented for the patient 08/19/2022 9:30 AM EST documented as of this encounter Care Teams School Bus Driver/Mechanic Relationship Specialty Start Date End Date Flaquita Dorsey DO [address] [place] [address] PCP - General 12/14/21 Aliyah Valencia MD [address] [place] [place] [address] Referring Physician 03/10/21 Conrado Iqbal MD [address] [place] [address] Service Attending Cardiology 08/19/22 documented as of this encounter
--- OUTSIDE RECORDS SUMMARY | 2024-07-10 11:53 | XMS_ITS | Encounter Summary ---
Author Organization Healthcare Address [address] [place] [address] Care Team Providers Care Senior Health Educator Name Role Phone Aliyah Valencia MD Unavailable [phone] Flaquita Dorsey DO Primary Care Provider [phone]- [phone] Conrado Iqbal MD Unavailable Encounter Details Date Type Department Care Team (Latest Contact Info) Description 04/08/2024 Travel Social History Tobacco Use Types Packs/Day Years Used Date Smoking Tobacco: Former Cigarettes 0.5 22 1 976 - 1998 Passive Smoke Exposure: Past Smokeless Tobacco: Former Alcohol Use Standard Drinks/Week Comments Not Currently 0 (1 standard drink = 0.6 oz pur e alcohol) PHQ-2 Answer Date Recorded Patient Health Questionnaire-2 Score 0 04/08/2024 PHQ-2A Answer Date Recorded Patient Health Questionnaire-2 [...] AM EST Office Visit [facility] [address] [address] [address] [place] [address] Penelope Carmona MD 800 [facility] [address] [place] [address] 08/05/2024 9:30 AM EST Appointment [facility] 1 [address] [place] [address] 02/26/2025 9:30 AM EDT Appointment [facility] Radha Lai [facility] [place] [address] [place] [address] 02/26/2025 10:30 AM EDT [facility] Visit [facility] [address] [facility], 2nd [place] [address] Berenice Resendez, SLACK COOPER 800 [facility] [address] Lai [facility] [address] [place] [address] documented as of this encounter Visit Diagnoses Not on filedocumented in this encounter Additional Health Concerns Assessment Noted Time A fall risk assessment has been complete d for the patient 04/08/2024 2:17 PM EDT A Body Mass Index follow-up plan has been documented for the patient 08/19/2022 9:30 AM EST documented as of this encounter Care Teams Senior Health Educator Relationship Specialty Start Date End Date Flaquita Dorsey DO [address] [place] [address] PCP - General 12/14/21 Aliyah Valencia MD [address] [place] [place] [address] Referring Physician 03/10/21 Conrado Iqbal MD [address] [place] [address] Service Attending Cardiology 08/19/22 documented as of this encounter
--- OUTSIDE RECORDS SUMMARY | 2024-07-10 11:53 | XMS_ITS | Encounter Summary ---
Author Organization [facility] Address [address] [place] [address] Care Team Providers Care Hot Baller Name Role Phone Aliyah Valencia MD Unavailable [phone] Flaquita Dorsey DO Primary Care Provider [phone] Conrado Iqbal MD Unavailable Reason for Referral * Imaging (Routine) - Closed Specialty Diagnoses / Procedures Referred By Contac t Referred To Contact Radiology Diagnoses Carcinoma of fallopian tube, unspecified laterality (CMS/HCC) Procedures CT Abdomen Pelvis w IV Contrast Penelope Carmona MD [address] [address] Phone: tel: fax: Referral ID Status Reason Start Date Expiration Date Visits Re quested Visits Authorized [id number] Closed 04/08/2024 10/08/2025 1 1 * Imaging (Routine) - Closed Specialty Diagnoses / Procedures Referred By Contac t Referred To Contact Radiology Diagnoses Carcinoma of fallopian tube, unspecified laterality (CMS/HCC) Procedures CT Chest w IV Contrast Penelope Carmona MD [address] [address] Phone: tel: fax: Referral ID Status Reason Start Date Expiration Date Visits Re quested Visits Authorized [id number] Closed 04/08/2024 10/08/2025 1 1 Reason for Visit * Imaging (Routine) - Closed Specialty Diagnoses / Procedures Referred By Contshena t Referred To Contact Radiology Diagnoses Carcinoma of fallopian tube, unspecified laterality (CMS/HCC) Procedures CT Abdomen Pelvis w IV Contrast Penelope Carmona MD [address] [facility] [address] [place] [address] Phone: tel: fax: Referral ID Status Reason Start Date Expiration Date Visits Re quested Visits Authorized [id number] Closed 04/08/2024 10/08/2025 1 1 Encounter Details Date Type Department Care Team (Latest Contact Info) Description 04/22/2024 2:24 PM EDT - 04/22/2024 11:59 PM EDT Hospital Encounter [facility] [address] [place] [address] Carcinoma of fallopian tube, unspecified laterality (CMS/HCC) Discharge Disposition: Home or Self Care Social [...] on file documented as of this encounter Medications at Time of Discharge aspirin 81 MG chewable tablet Chew 1 tablet (81 mg) 1 (one) time each day. ergocalciferol (Vitamin D-2) 1.25 MG (76816 UT) capsule Take 1 capsule (50,000 Units) by mouth 1 (one) time per week. Monday erythromycin (Romycin) 5 MG/GM ophthalmic ointment Apply 1 Application to right eye every 8 (eight) hours. 08/11/2023 furosemide (Lasix) 20 MG tablet Take 1 tablet (20 mg) by mouth 1 (one) time each day. 12/10/2021 lisinopril 5 MG tablet Take 1 tablet (5 mg) by mouth 1 (one) time each day. potassium chloride ER (Micro-K) 10 MEQ ER capsule Take 1 capsule (10 mEq) by mouth 2 (two) times a day. 12/10/2021 Synthroid 75 MCG tablet Take 1 tablet (75 mcg) by mouth 1 (one) time each day in the morning. 02/16/2024 anastrozole (Arimidex) 1 MG chemo tablet Take 1 tablet (1 mg total) by mouth 1 (one) time each day. Swallow whole with a drink of water. 30 tablet 2 01/30/2024 4 biotin 1000 MCG tablet Take 1 tablet (1,000 mcg) by mouth 1 (one) time each day. 4 cyclophosphamide (Cytoxan) 50 MG capsule capsule Take 1 capsule (50 mg) by mouth 1 (one) time each day. 30 capsule 3 11/15/2023 4 Flaxseed, Linseed, (Flaxseed Oil) 1000 MG capsule Take 1 tablet by mouth 1 (one) time each day. 4 gabapentin (Neurontin) 300 MG capsule Take 2 capsules (600 mg) by mouth every night. 60 capsule 3 12/27/2023 4 nitroglycerin (Nitrostat) 0.4 MG SL tablet every 5 (five) minutes if needed. 06/24/2022 4 prochlorperazine (Compazine) 10 MG tabletIndications :Carcinoma of fallopian tube, unspecified laterality (CMS/HCC) Take 1 tablet (10 mg total) by mouth every 6 (six) hours if needed for nausea or vomiting. 30 tablet 5 04/11/2022 4 simvastatin (Zocor) 40 MG tablet Take 1 tablet (40 mg) by mouth every night. 4 Synthroid 88 MCG tablet Take 75 mcg by mouth 1 (one) time each day. 05/29/2023 4 documented as of this encounter Miscellaneous Notes * Hayley Perez E - 04/22/2024 2:42 PM EDT Images from the original note were not included. 1639 Caring for Yourself after Contrast Imaging If you had ORAL contrast: ?? You can go back to your normal diet and activities as tolerated. ?? Drink plenty of fluids, unless told otherwise. If you had IV contrast: ?? You can go back to your normal diet and activities as tolerated. ?? Drink plenty of fluids, unless told otherwise. ?? Leave a bandage on the site for 30 minutes (where the IV was inserted or blood was drawn). If you had Intravesical (bladder) contrast: ?? Return to normal diet and activity. What you need to know about delayed reaction to IV contrast What is IV Contrast? ?? Contrast is a dye that is put into your body through an IV. ?? It is used for imaging scans such as CT scans and MRIs. ?? The contrast makes blood vessels, organs and other parts of your body show up better on the scan. What do I need to do after IV contrast? ?? Drink lots of fluids. This will help flush the contrast out of your system. ?? Drink 2-3 extra glasses or bottles of water within 4 hours of your scan. What is a contrast reaction? ?? A contrast reaction is a bad side effect from the contrast dye. ?? It is rare but it does happen. ?? They can be mild - such as sneezing, itching, or hives. ?? They can be severe - such as trouble breathing, throat swelling, and irregular heart beat. When do these reactions happen? ?? They often happen right after the contrast is injected. ?? Some happen hours after going home. Go to the nearest Emergency Department right away if you have any of these symptoms after you leavethe clinic or hospital. ?? Sneezing ?? Itching in your mouth, throat, eyes, ears, or skin ?? Rash or hives ?? Throwing up or stomach sickness ?? High heart rate or ?racing? of your heart ?? Feeling dizzy or woozy ?? Feeling short of breath or like you can?t take a deep breath ?? Feeling very anxious for no other reason It is very important that these reactions be treated. Tell the doctor or nurse that you are having a reaction to IV contrast dye. Do not ignore any sign of a reaction! All reactions must be assessed by a doctor. Call 911 if you are alone and your reaction is more than mild sneezing or itching. If you have a mild reaction, call to speak with a Radiologist, explain that you havehad a contrast reaction, as this needs to be added to your medical record. documented in this encounter Plan of Treatment Upcoming Encounters Date Type Department Care Team (Late st Contact Info) Description 08/05/2024 8:00 AM EST Office Visit [facility] Gynecology [address] [place] [phone] Penelope Carmona MD [address] [facility] [address] [place] [address] 08/05/2024 9:30 AM EST Appointment [facility] [address] [place] [phone] 02/26/2025 9:30 AM EDT Appointment [facility] Breast Care Center [facility] [place] [address] [address] [facility] [address] [place] [address] 02/26/2025 10:30 AM EDT Office Visit [facility] Breast Care [place] [address] [place] [address] Berenice Resendez, ACCESS SERVICES LIBRARIAN [address] [facility] [address] [place] [address] documented as of this encounter Procedures Procedure Name Priority Date/Time Associated Diagnosis Comments CT ABDOMEN PELVIS W IV CONTRAST Routine 04/22/2024 3:31 PM EDT Carcinoma of fallopian tube, unspecified laterality (CMS/HCC) CT CHEST W IV CONTRAST Routine 04/22/2024 3:31 PM EDT Carcinoma of fallopian tube, unspecified laterality (CMS/HCC) documented in this encounter Results * CT Abdomen Pelvis w IV Contrast [...] Ballesteros MD on 04/22/2024 4:10 PM us Penelope Dodson MD IMG CT PROCEDURES Fin [...] MD IMG CT PROCEDURES Fin al Result documented in this encounter Visit Diagnoses Diagnosis Carcinoma of fallopian tube, unspecified laterality (CMS/HCC) documented in this encounter Administered Medications Inactive Administered Medications - up to 3 most recent administrations Medication Order MAR Action Action Date Dose Rate Site iohexol (OMNIPaque) 300 MG/ML injection 100 mL 100 mL, Intravenous, Once in imaging, 1 dose, Starting on Mon04/22/24 at 1442, Until Mon04/22/24 at 1520, Routine, Imaging Protocol Orders Given 04/22/2024 3:20 PM EDT 100 mL iohexol (OMNIPaque) 9 MG/ML oral contrast 500 mL 500 mL, Oral, Once in imaging, 1 dose, Starting on Mon04/22/24 at 1442, Until Mon04/22/24 at 1523, Routine, Imaging Protocol Orders Given 04/22/2024 3:23 PM EDT 500 mL documented in this encounter Additional Health Concerns Assessment Noted Time A fall risk assessment has been complete d for the patient 04/08/2024 2:17 PM EDT A Body Mass Index follow-up plan has been documented for the patient 08/19/2022 9:30 AM EST documented as of this encounter Care Teams Hot Baller Relationship Specialty Start Date End Date Flaquita Dorsey DO [address] [place] [address] PCP - General 12/14/21 Aliyah Valencia MD [address] [place] [address] Referring Physician 03/10/21 Conrado Iqbal MD [address] [place] [phone] Service Attending Cardiology 08/19/22 documented as of this encounter
--- OUTSIDE RECORDS SUMMARY | 2024-07-10 11:53 | XMS_ITS | Encounter Summary ---
Author Organization Healthcare Address [address] [place], [place] [id number] Care Team Providers Care Cardroom Drawing Runner Name Role Phone Aliyah Valencia MD Unavailable [phone] Flaquita Dorsey DO Primary Care Provider [phone] Conrado Iqbal MD Unavailable Reason for Visit * Reason Comments Chemotherapy Encounter Details Date Type Department Care Team ([facility] st Contact Info) Description 03/18/2024 1:15 PM EDT Office Visit [facility] [address] [facility] [address] [place] [id number] Penelope Carmona MD [address] [facility] [address] [facility] [address] [place] [address] Carcinoma of fallopian tube, unspecified laterality (CMS/HCC) (Primary Dx); Encounter for antineoplastic chemotherapy; Transaminitis Social History Tobacco Use Types Packs/Day Years Used Date Smoking Tobacco: Former Cigarettes 0.5 22 1 976 - 1998 Passive Smoke Exposure: Past Smokeless Tobacco: Former Alcohol Use Standard Drinks/Week Comments Not Currently 0 (1 standard drink = 0.6 oz pur e alcohol) PHQ-2 Answer Date Recorded Patient Health Questionnaire-2 Score 0 03/18/2024 PHQ-2A Answer Date Recorded Patient Health Questionnaire-2 Score 0 07/10/2023 Comments No Sex and Gender Information Value Date Recorded Sex Assigned at Not on file Legal Sex Female 8:51 PM EDT Gender Identity Not on file Sexual Orientation Not on file documented as of this encounter Last Filed Vital Signs Vital Sign Reading Time Taken Comments Blood Pressure 135/66 03/18/2024 1:27 PM EDT Pulse 82 03/18/2024 1:27 PM EDT Temperature 36.2 ??C (97.1 ??F) 03/18/2024 1:27 PM ED T Respiratory Rate 16 03/18/2024 1:27 PM EDT Oxygen Saturation 97% 03/18/2024 1:27 PM EDT Inhaled Oxygen Concentration - - Weight 76 kg (167 lb 8.8 oz) 03/18/2024 1:27 PM EDT Height 160 cm (5' 3 ) 03/18/2024 1:27 PM EDT Body Mass Index 29.68 03/18/2024 1:27 PM EDT documented in this encounter Miscellaneous Notes * Progress Notes - Penelope Carmona MD - 03/18/2024 1:15 PM EDT Primary Care Provider: Flaquita Dorsey DO History [...] were negative for metastatic disease. ER and RI were strongly positive and HER-2 was negative. [...] ER positive in 90% of the cells, RI positive in 95% of cells andHER-2 negative by IHC at 0. On 10/04/2016 she underwent a left needle localized lumpectomy. [place] lymph node biopsy was not performed as [...] vagina). Initiated neoadjuvant chemo with carbo/Taxol per MICRO PHOTOGRAPHER followed by BSO/Omentectomy and adjuvant Carbotaxol. Recurrence in March 2019. Treated with carbo initially followed by Olaparib. 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 She is currently off of therapy. She follows with Dr. Hutchins in [place]/Onc. Malignant neoplasm of left breast in female, estrogen receptor positive (CMS/HCC) 05/28/2001 Cancer Staged Staging form: Breast, AJCC 8th Edition, Pathologic stage from 05/28/2001: pT1c, pN0, cM0, G2, ER+, RI+, HER2: Unknown - Signed by Cara Greene MD on 06/19/2021 10/05/2016 Cancer Staged Staging form: Breast, AJCC 8th Edition, Pathologic stage from 10/05/2016: Stage Unknown (rpT1c, pNX, cM0, G2, ER+, RI+, HER2-) - Signed by Cara Greene MD [...] mass at vaginal cuff. 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 Recurrence - First recurrence, bad river band sensitive - CT 04/10/19 with 3 cmlesion at cuff - Ca125 12 (from 8) - MTB discussion: recommend trial if progression on bad river band regimen or consider Parp for RAD 51 [...] ccy for choledocolithiasis 2019 (SGB) - Ca125: 11-5-8-7-7-9-8 - Started Parp inhibitor 09/2019 - Dose [...] concerning findings - Most recent Ca125 7.49 (25681) 06/30/2021 Recurrence - Third recurrence, bad river band sensitive - CT 06/30/2021 shows vaginal cuff [...] disease seen 04/11/2022 Recurrence - Fourth recurrence, bad river band resistant - CT 04/11/2022 with increase in [...] Chemotherapy - Avastin started 03/20/2023 - Ca125 7.38-7.51-6.5-6.71-6.26-6.58-6.94-6.72-6.86-8.12-9.55-11.5-11.5-10.7-9.98 - CT 06/16/2023: Stable to decreased size of vaginal cuff disease, no other new findings - CT 10/18/2023: Stable vaginal cuff lesion, increasing retroperitoneal adenopathy - CT 01/30/2024: Stable vaginal cuff lesion, increasing adenopathy Interval updates to history: Oncologic treatment history as described above reviewed today as well as PMH/PSH/Meds/All/SH/FH, with updates made as appropriate. Patient is here today for cycle 18 of Dana. Reports stable fatigue. Has been off Cytoxan since last visit due to elevated LFT's again. Having some continued bleeding but is light/stable. No N/V. No pain. No dizzy spells since last visit. Still with intermittent diarrhea but stable. Reports her primary doctor has continued to work on her thyroid dosing. PMH: h/o breast cancer x2, ?cervical cancer, [...] years ago, no drugs, retired, lives in [place]. FamHx: Father-prostate, MGma-colon. ROS: 14 pt ROS performed with pertinent positives and negatives as noted in HPI. ROS otherwise negative Objective Physical Exam: Vital Signs for this encounter: BSA: 1.84 meters squared Visit Vitals BP 135/66 Pulse 82 Temp 36.2 ??C (97.1 ??F) Resp 16 Ht 1.6 m (5' 3 ) Wt 76 kg (167 lb 8.8 oz) LMP 11/17/1981 (Approximate) SpO2 97% BMI 29.68 kg/m?? OB Status Hysterectomy Smoking Status Former BSA 1.84 m?? Physical Exam Vitals and nursing note reviewed. Constitutional: General: She is not in acute distress. Appearance: Normal appearance. She is well-developed. She is not ill-appearing or diaphoretic. HENT: Head: Normocephalic and atraumatic. Eyes: General: No scleral icterus. Conjunctiva/sclera: Conjunctivae normal. Cardiovascular: Rate and Rhythm: Normal rate. Pulmonary: Effort: Pulmonary effort is normal. No respiratory distress. Abdominal: General: There is no distension. Palpations: Abdomen is soft. Tenderness: There is no abdominal tenderness. Musculoskeletal: General: No signs of injury. Skin: [...] Status: Asymptomatic PS= 0 Results: CBC WBC 3.53 Hgb 12.7 PLT 140 HCT 38.7 Lab Results Component Value Date NEUTROABS 2.25 03/18/2024 BASIC METABOLIC PANEL Na 136 Cl 102 BUN 27 Gluc 92 K 4.1 Co2 24 Creat 0.89 LIVER FUNCTION TESTING Tot Prot 6.7 AST 65 Tot bili 0.5 ALT 95 Alkphos 210 Ca 10.0 Mg No results found for requested labs within last 365 days. Phos No results found for requested labs within last 365 days. === 01/29/24 === CT ABDOMEN PELVIS W IV CONTRAST - Narrative - CLINICAL INDICATION: Genital cancer, monitor TECHNIQUE: Multiple axial CT images were obtained from thoracic inlet through pubic symphysis following administration of IV contrast, Omnipaque 300, 100 mL. Reformatted images of the abdomen and pelvis in the coronal and sagittal planes were generated from the axial data set to facilitate diagnostic accuracy. Total DLP (Dose-Length Product): 623.87 mGy.cm. Please note: The reported value represents the total of one or more individual components during the CT acquisition on this date and at this time, and as such, the same value may appear in more than one CT report depending on the interpreting/reporting physicians. COMPARISON: CT chest, abdomen, pelvis from 10/17/2023, CT abdomen/pelvis from 06/16/2023. FINDINGS: Chest: Lymph Nodes and Mediastinum: No lymphadenopathy by CT size criteria. No mediastinal mass lesions. Morphologically unchanged thyroid with small calcifications in the left thyroid lobe. Cardiovascular: The heart is normal in caliber. Thoracic great vessels are patent. Right approach port terminates at the superior cavoatrial junction. Mild coronary artery calcifications. Lungs and Pleura: Unchanged right upper lobe 5 mm pulmonary nodule (series 4 image 95). There are afew scattered sub-5 mm pulmonary nodules in both lungs which are also unchanged from prior exam. Nosizable pulmonary nodules to suggest metastatic disease. No pleural effusions or suspicious thickening. Musculoskeletal and Body Wall: No clearly aggressive bone lesions. Postprocedural change in the left breast, unchanged. No suspicious body wall findings. Abdomen/Pelvis: Solid Abdominal Organs: A subcentimeter low-attenuation lesion in the liver adjacent to the falciform ligament is too small to characterize on CT but is unchanged from prior exam. No suspicious hepatic lesion. The gallbladder is surgically absent and there is post cholecystectomy ectasia of the extrahepatic bile duct and central intrahepatic bile ducts. A 2.0 cm right adrenal gland nodule is unchanged from prior exam, with small change in size likely associated with change in positioning or slice selection (series 4 image 63). 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 There is a 1.2 cm peripherally enhancing nodule at the superior pole of the right kidney which is morphologically unchanged from prior exam (series 4 image 78). Otherwise, the kidneys are unremarkable, without hydronephrosis or calculi. Pancreas is unremarkable. Spleen is nonenlarged. GI Tract/Mesentery/Peritoneum: Stomach is unremarkable. Small and large bowel maintain normal caliber and contour, without wall thickening or evidence of obstruction. A few loops of nonobstructed small bowel enter into a ventral abdominal hernia measuring 5.3 cm at the widest separation (series 4 image 154). No suspicious mesenteric or peritoneal findings. Pelvic Viscera: Mild circumferential thickening of the urinary bladder wharton, which may be associated with underdistention. There is a lesion of the vaginal cuff which is unchanged in size and morphology as compared to most recent prior examination on 10/17/2023 but which measures 3.7 x 1.9 cm, decreased size when compared to examination on 06/16/2023. No suspicious pelvic mass. Lymph Nodes/Vasculature: There are multiple stable to enlarging retroperitoneal and pelvic lymph nodes. Index nodes include: * An aortocaval node just proximal to the bifurcation, measuring 1.5 cm (previously 0.3 cm, series 4 image 147). * A left para-aortic lymph node measuring 1.2 cm (previously imperceptible, series 4 image 127). * A left common iliac node measuring 1.2 cm (previously 0.6 cm, series 4 image 173). * A right common iliac node measures 1.1 cm (previously 0.5 cm, series 4 image 180). * A retrocaval lymph node is unchanged, measuring 1.1 cm, series 4 image 167). * A right external iliac lymph node measures 0.9 cm (previously 0.9 cm, series 4 image 237). * A left external iliac lymph node measures 1.2 cm (previously 1.2 cm, series 4 image 238) * A right inguinal lymph node measures 1.1 cm (previously 1.1 cm, series 4 image 254). * A left inguinal lymph node measures 1.1 cm (previously 0.8 cm, series 4 image 262). Aorta and IVC maintain normal caliber and contour, with mild to moderate calcified atherosclerotic plaque within the abdominal aorta. The portal vein, SMV, and splenic vein are patent. Hepatic veins are patent. Free Fluid:No free fluid. Musculoskeletal and Body Wall: Stable appearance of the ventral abdominal wall hernia containing nonobstructed small bowel and fat. No suspicious body wall lesions. No suspicious bony findings. - Impression - Chest: No evidence of disease progression. Abdomen/Pelvis: Stable lesion of the vaginal cuff. Stable to increasing retroperitoneal and pelvic lymphadenopathy when compared to examination from 10/17/2023, detailed above. CRITICAL RESULT: No. COMMUNICATION: Per this written report. 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 - At visit 08/2022: Patient had additional CP episode and heart cath subsequently performed. No severe disease noted and dietist reports ok to continue Dana. However, also [...] progression more profound. Discussed at length at last visit and she electsto continue Dana/Cytoxan - Cycle 18 of Dana today. . Cyclic Ca125 monitoring with imaging q 3-4 cycles (due after next cycle) - Held Cytoxan with cycle 17 due to elevated LFT's. Check again today and resume if stable or improved. Problem 2: Encounter for chemotherapy Assessment and plan 2: - Proceed with cycle 18 of Bevacizumab 15 mg/kg today. Plan q 21 cycles until intolerance or progression. No dose limiting toxicities identified. Pre chemo labs reviewed. Continue intensive hematologic monitoring (CBC with diff, CMP). Also continue cyclic Ca125 tumor marker monitoring. Reviewed side effects to monitor for. - Resume oral Cytoxan if LFT's stable or improved. Problem 3: Vaginal bleeding Assessment and plan 3: - Likely due to mass at cuff - Bleeding resolved after starting Dana/Cytoxan first verena - Bleeding recurred with recurrence of mass at cuff - Light still but slightly increased in past few months. - Stable today - Monitor. Problem 4: History of left breast cancer x 2 Assessment and plan 4: - s/p anastrazole. No current signs of disease. Follows up with breast clinic (recent visit JARED) - back on anastrazole at this time. Problem 5: Neuropathy Assessment and plan 5: - Treatment related. - Will not use Taxol again. - Currently on Gabapentin 600 mg at bedtime Problem 6: h/o syncope episodes and carotid stenosis, now with chest tightness over 2021, in July 2022, 10/28/2022, 12/15/2022, 04/2023 Assessment and plan 6: - Has been followed in past with cards at - Seen by cardiology at [facility] and acute workup negative but diagnostic [...] April 2023 - ED workup negative for VT - No further episodes since fall 2022 - Continue to monitor closely Problem 7: Intermittent diarrhea Assessment and plan 7: - Unlikely relation to Cytoxan given timing/drug profile - Offered colonoscopy/GI referral but declines for now - Monitor - currently stable Problem 8: transaminitis Assessment and plan 8: [...] related to Cytoxan. - Held again per PIER WORKER with cycle 17. If improved or stable today will resume. - Continue to monitor weekly labs. Continue Cytoxan unless persistence trend of continued elevation. 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 Summary of time spent in team based care today includes the following activities performed by myself: review of prior documentation in preparation for visit, review of labs and any other test results, obtaining and reviewing medical history, appropriate focused physical exam, discussion of exam and/or test results, discussion of plan of care, lab orders, phlebotomy, chemo related decision making and documentation Penelope Dodson MD * Progress Notes - Serena Xiong, PharmD - 03/18/2024 1:15 PM EDT Pharmacy Hematology/Oncology Treatment Plan Note Daniela John [...] from 05/28/2001: pT1c, pN0, cM0, G2, ER+, RI+, HER2: Unknown - Signed by Cara Greene MD on 06/19/2021 - Pathologic stage from 10/05/2016: Stage Unknown (rpT1c, pNX, cM0, G2, ER+, RI+, HER2-) - Signed by Cara Greene MD on 06/19/2021 Study Patient: No Treatment Protocol: Bevacizumab IV every 21 days + continuous PO cytoxan Treatment Plan reviewed for: [x] Follow-Up Clinical Review Cycle 18 Day 1 [x] Follow-Up Clinical Review for Continuous Oral Therapy Interval History: Ms. John was seen by team in clinic. Continues to follow with Dr. Granda for endocrinology, ophthalmology, and a physician who specializes in thyroid eye diseases. Imaging demonstrates mild progression. Will continue with therapy and continue to monitor closely. LFTs elevated previously but felt to be unrelated to cyclophosphamide. Will resume treatment and continue to monitor. Dosing Wt: 84 kg Today's Wt: Wt Readings from Last 1 Encounters: 03/18/24 75.3 kg (166 lb 0.1 oz) Dosing Ht: 160 cm Dosing BSA: 1.88 m2 Recent Labs: Lab Results Component Value Date WBC 3.53 (L) 03/18/2024 HGB 12.7 03/18/2024 HCT 38.7 03/18/2024 MCV 108 (H) 03/18/2024 PLT 140 (L) 03/18/2024 Lab Results Component Value Date GLUCOSE 123 (H) 03/18/2024 CALCIUM 9.4 03/18/2024 NA 137 03/18/2024 K 4.3 03/18/2024 CO2 19 (L) 03/18/2024 CL 103 03/18/2024 BUN 24 (H) 03/18/2024 CREATININE 0.83 03/18/2024 Lab Results Component Value Date ALT 39 (H) 03/18/2024 AST 49 (H) 03/18/2024 ALKPHOS 119 03/18/2024 BILITOT 0.5 03/18/2024 Lab Results Component Value Date NEUTROABS 2.25 03/18/2024 Lab Results Component Value Date MG 1.4 (L) 01/09/2023 No results found for: TSH Lab Results Component Value Date URINEPRO Negative 03/18/2024 Vitals: Vitals: 03/18/24 1327 BP: 135/66 Pulse: 82 Resp: 16 Temp: 36.2 ??C (97.1 ??F) SpO2: 97% Other Relevant Monitoring: None Treatment Plan: Cyclophosphamide 50 mg daily -- HELD Bevacizumab 15 mg/kg (1200 mg) IV D1 Every 21 days + Denosumab q 6 months (LD 01/15/24, next due 06/2024) [x] No dose adjustments made Current Treatment Plan History: Oral Cyclophosphamide 50 mg daily (08/31/22 - present) - Held 01/15/24 for transaminitis - resumed late December d/t low suspicion for chemo induced toxicity - held 02/25 for transaminitis Bevacizumab Cycle 1: 03/20/23 Cycle 2: 04/10/23 Cycle 3: 05/08/23 Cycle 4: 05/29/23 Cycle 5: 06/19/23 Cycle 6: 07/10/23 Cycle 7: 08/02/23 Cycle 8: 08/23/23 Cycle 9: 09/13/23 Cycle 10: 10/04/23 Cycle 11: 10/25/23 Cycle 12: 11/15/23 Cycle 13: 12/06/23 Cycle 14: 12/27/23 Cycle 15: 01/15/24 Cycle 16: 02/05/24 Cycle 17: 02/26/24 Cycle 18: 03/18/24 Prior Chemotherapy History: hormone therapy for prior breast cancer carboplatin/paclitaxel Cycle 1: 04/11/18 Cycle 2: 05/02/18 Cycle 3: 05/23/18 Cycle 4: 08/01/18 Cycle 5: 08/22/18 Cycle 6: 09/12/18 Carboplatin q21d #1: 05/06/19 #2: 06/03/19 #3: 06/24/19 #4: 07/15/19 #5: 08/05/19 #6: 08/26/19 Olaparib continuous oral therapy 09/2019 - 01/2020 (dose reduced and then d/c'd d/t fatigue/anemia Carboplatin #1: 08/04/21 - 13th lifetime dose #2: 08/27/21 #3: 09/15/21 #4: 10/06/21 #5: 10/27/21 - 17th lifetime dose carboplatin #6: 11/17/21 Bevacizumab/oral Cyclophosphamide #1: 04/25/22 #2: 05/16/22 #3: 06/06/22 #4: 07/20/22 #5: 08/10/22 Assessment/Plan: Cytoxan Rx prescribed to: [facility] Refills will be due: 03/2024 Patient will return to clinic in 3 weeks. Will follow-up at that time. Serena Xiong PharmD, BCOP Hematology/Oncology Clinical Pharmacist documented in this encounter Plan of Treatment Upcoming Encounters Date Type Department Care Team (Late st Contact Info) Description 08/05/2024 8:00 AM EST Office Visit [facility] Gynecology [address] [facility] [address] [place] [address] Penelope Carmona MD [address] [facility] [address] [facility] [address] [place] [address] 08/05/2024 9:30 AM EST Appointment [facility] [address] [place] [address] 02/26/2025 9:30 AM EDT Appointment [facility] [address] [facility] [address] [place] [address] 02/26/2025 10:30 AM EDT Office Visit [facility] [address] [facility] [place] [address] Berenice Resendez, PIER WORKER [address] [facility] [address] [facility] [address] [place] [address] documented as of this encounter Procedures Procedure Name Priority Date/Time Associated Diagnosis Comments URINALYSIS MICROSCOPIC FOR UA REFLEX Routine 03/18/2024 2:08 PM EDT Carcinoma of fallopian tube, unspecified laterality (CMS/HCC) URINALYSIS WITH REFLEX MICROSCOPIC Routine 03/18/2024 2:08 PM EDT Carcinoma of fallopian tube, unspecified laterality (CMS/HCC) CBC WITH AUTO DIFFERENTIAL Routine 03/18/2024 2:08 PM EDT Carcinoma of fallopian tube, unspecified laterality (CMS/HCC) CA 125 Routine 03/18/2024 2:08 PM EDT Carcinoma of fallopian tube, unspecified laterality (CMS/HCC) COMPREHENSIVE METABOLIC PANEL, PLASMA Routine 03/18/2024 2:08 PM EDT Carcinoma of fallopian tube, unspecified laterality (CMS/HCC) documented in this encounter Results * Urinalysis Microscopic Examination (03/18/2024 2:08 PM EDT) Urine Urine specimen obtained by clean catch procedure / Unknown Non-blood Collection / Unknown 03/18/2024 2:08 PM EDT 03/18/2024 3:37 PM EDT Penelope Dodson MD LAB URINE ORDERABLES Final Result [facility] [address] [place] [id number] * (ABNORMAL) Urinalysis with reflex microscopic (Culture NOT Included) (03/18/2024 2:08 PM EDT) Color, Urine Yellow LAB URINALYSIS - AUTOMATED METHOD 03/18/2024 4:08 PM EDT [facility] Clarity, Urine Clear LAB URINALYSIS - AUTOMATED METHOD 03/18/2024 4:08 PM EDT [facility] Spec Emery, Urine 1.007 <=1.005 to >=1.030 LAB URINALYSIS - AUTOMATED METHOD 03/18/2024 4:08 PM EDT [facility] pH, Urine 6.0 4.5 to 8 LAB URINALYSIS - AUTOMATED METHOD 03/18/2024 4:08 PM EDT [facility] Protein, Urine Negative Negative mg/dL LAB URINALYSIS - AUTOMATED METHOD 03/18/2024 4:08 PM EDT [facility] Glucose, Urine Negative Negative mg/dL LAB URINALYSIS - AUTOMATED METHOD 03/18/2024 4:08 PM EDT [facility] Ketones, Urine Negative Negative mg/dL LAB URINALYSIS - AUTOMATED METHOD 03/18/2024 4:08 PM EDT [facility] Blood, Urine Small(A) Negative LAB URINALYSIS - AUTOMATED METHOD 03/18/2024 4:08 PM EDT [facility] Bilirubin, Urine Negative Negative LAB URINALYSIS - AUTOMATED METHOD 03/18/2024 4:08 PM EDT [facility] Urobilinogen, Urine 0.2 0.2 to 1.0 mg/dL LAB URINALYSIS - AUTOMATED METHOD 03/18/2024 4:08 PM EDT [facility] Leukocytes, Urine Moderate(A) Negative LAB URINALYSIS - AUTOMATED METHOD 03/18/2024 4:08 PM EDT [facility] Nitrite, Urine Negative Negative LAB URINALYSIS - AUTOMATED METHOD 03/18/2024 4:08 PM EDT [facility] RBC, Urine 1 0 to 3 /HPF LAB URINALYSIS - AUTOMATED METHOD 03/18/2024 4:08 PM EDT [facility] WBC, Urine 6 - 10(A) 0 to 5 /HPF LAB URINALYSIS - AUTOMATED METHOD 03/18/2024 4:08 PM EDT [facility] Squamous Epithelial Cells 0 - 2 0 to 5 /HPF LAB URINALYSIS - AUTOMATED METHOD 03/18/2024 4:08 PM EDT [facility] Hyaline Casts 0 - 2 0 to 5 /LPF LAB URINALYSIS - AUTOMATED METHOD 03/18/2024 4:08 PM EDT [facility] Bacteria, Urine Negative Negative LAB URINALYSIS - AUTOMATED METHOD 03/18/2024 4:08 PM EDT [facility] Urine Urine specimen obtained by clean catch procedure / Unknown Non-blood Collection / Unknown 03/18/2024 2:08 PM EDT 03/18/2024 3:37 PM EDT us Penelope Dodson MD LAB URINE ORDERABLES Final Result Performing Organization Address City/[facility] Co de Phone Number [facility] [address] [place] [address] * CA 125 (03/18/2024 2:08 PM EDT) CA 125 10.00 <=38.00 U/mL 03/18/2024 6:31 PM EDT [facility] Blood Venous blood specimen / Unknown Arterial Puncture / Unknown 03/18/2024 2:08 PM EDT 03/18/2024 3:15 PM EDT Narrative [facility] - 03/18/2024 6:31 PM EDT Performed by Stephie electrochemiluminescent immunoassay. Results obtained with different test methods or kits cannot be used interchangeably. Penelope Dodson MD LAB BLOOD ORDERABLES Final Result Performing Organization Address City/[facility]/ZIP Co de Phone Number [facility] [facility] [address] [place] [address] * (ABNORMAL) Comprehensive metabolic panel (03/18/2024 2:08 PM EDT) [facility] Glucose, Plasma 123(H) 74 - 99 mg/dL 03/18/2024 4:38 PM EDT [facility] BUN, Plasma 24(H) 8 - 23 mg/dL 03/18/2024 4:38 PM EDT [facility] Creatinine, Plasma 0.83 0.60 - 1.10 mg/dL 03/18/2024 4:38 PM EDT [facility] BUN/Creatinine Ratio 29 03/18/2024 4:38 PM EDT [facility] Sodium, Plasma 137 136 - 145 mmol/L 03/18/2024 4:38 PM EDT [facility] Potassium, Plasma 4.3 3.7 - 4.8 mmol/L 03/18/2024 4:38 PM EDT [facility] Chloride, Plasma 103 97 - 107 mmol/L 03/18/2024 4:38 PM EDT [facility] CO2, Plasma 19(L) 22 - 29 mmol/L 03/18/2024 4:38 PM EDT [facility] Anion Gap 15 6 - 16 mmol/L 03/18/2024 4:38 PM EDT [facility] Total Calcium, Plasma 9.4 8.9 - 10.2 mg/dL 03/18/2024 4:38 PM EDT [facility] Total Protein 6.7 6.3 - 7.9 g/dL 03/18/2024 4:38 PM EDT [facility] Albumin, Plasma 3.5 3.5 - 5.2 g/dL 03/18/2024 4:38 PM EDT [facility] AST, Plasma 49(H) 10 - 35 U/L 03/18/2024 4:38 PM EDT [facility] Comment:Hemolyzed, result ma y be falsely increased. ALT, Plasma 39(H) 10 - 35 U/L 03/18/2024 4:38 PM EDT [facility] Alkaline Phosphatase, Plasma 119 46 - 142 U/L 03/18/2024 4:38 PM EDT [facility] Total Bilirubin, Plasma 0.5 0.2 - 1.1 mg/dL 03/18/2024 4:38 PM EDT [facility] eGFRcr 72.3 mL/min/1.7 3m*2 03/18/2024 4:38 PM EDT [facility] Comment:Reported eGFRcr in m L/min/1.73m2 is based the CKD-EPI 2020 equation that does not use a race coefficient. Blood Venous blood specimen / Unknown Arterial Puncture / Unknown 03/18/2024 2:08 PM EDT 03/18/2024 3:14 PM EDT Penelope Dodson MD LAB BLOOD ORDERABLES Final Result [facility] [address] [place] [id number] * (ABNORMAL) CBC and differential (03/18/2024 2:08 PM EDT) WBC Count 3.53(L) 3.70 - 10.30 10*3/uL LAB HEMATOLOGY METHOD 03/18/2024 2:43 PM EDT [facility] RBC Count 3.60(L) 3.90 - 5.20 10*6/uL LAB HEMATOLOGY METHOD 03/18/2024 2:43 PM EDT [facility] HGB 12.7 11.2 - 15.7 g/dL LAB HEMATOLOGY METHOD 03/18/2024 2:43 PM EDT [facility] HCT 38.7 34.0 - 45.0 % LAB HEMATOLOGY METHOD 03/18/2024 2:43 PM EDT [facility] Platelet Count 140(L) 155 - 369 10*3/uL LAB HEMATOLOGY METHOD 03/18/2024 2:43 PM EDT [facility] MCV 108(H) 79 - 98 fL LAB HEMATOLOGY METHOD 03/18/2024 2:43 PM EDT [facility] MCH 35.3(H) 26.0 - 32.0 pg LAB HEMATOLOGY METHOD 03/18/2024 2:43 PM EDT [facility] MCHC 32.8 30.7 - 35.5 g/dL LAB HEMATOLOGY METHOD 03/18/2024 2:43 PM EDT [facility] RDW 14.9(H) 11.5 - 14.5 % LAB HEMATOLOGY METHOD 03/18/2024 2:43 PM EDT [facility] MPV 9.6 8.8 - 12.5 fL LAB HEMATOLOGY METHOD 03/18/2024 2:43 PM EDT [facility] nRBC 0.0 <=0.0 per 100 WBCs LAB HEMATOLOGY METHOD 03/18/2024 2:43 PM EDT [facility] Differential Type Automated LAB HEMATOLOGY METHOD 03/18/2024 2:43 PM EDT [facility] Neutrophils % 64.0 % LAB HEMATOLOGY METHOD 03/18/2024 2:43 PM EDT [facility] Lymphocytes % 20.0 % LAB HEMATOLOGY METHOD 03/18/2024 2:43 PM EDT [facility] Monocytes % 9.0 % LAB HEMATOLOGY METHOD 03/18/2024 2:43 PM EDT [facility] Eosinophils % 6.0 % LAB HEMATOLOGY METHOD 03/18/2024 2:43 PM EDT [facility] Basophils % 1.0 % LAB HEMATOLOGY METHOD 03/18/2024 2:43 PM EDT [facility] Immature Granulocytes % 0.0 % LAB HEMATOLOGY METHOD 03/18/2024 2:43 PM EDT [facility] Neutrophils Absolute 2.25 1.60 - 6.10 10*3/uL LAB HEMATOLOGY METHOD 03/18/2024 2:43 PM EDT [facility] Lymphocytes Absolute 0.72(L) 1.20 - 3.90 10*3/uL LAB HEMATOLOGY METHOD 03/18/2024 2:43 PM EDT [facility] Monocytes Absolute 0.30 0.30 - 0.90 10*3/uL LAB HEMATOLOGY METHOD 03/18/2024 2:43 PM EDT [facility] Eosinophils Absolute 0.22 0.00 - 0.50 10*3/uL LAB HEMATOLOGY METHOD 03/18/2024 2:43 PM EDT [facility] Basophils Absolute 0.04 0.00 - 0.10 10*3/uL LAB HEMATOLOGY METHOD 03/18/2024 2:43 PM EDT [facility] Immature Granulocytes Absolute 0.00 0.00 - 0.06 10*3/uL LAB HEMATOLOGY METHOD 03/18/2024 2:43 PM EDT [facility] Blood Venous blood specimen / Unknown Arterial Puncture / Unknown 03/18/2024 2:08 PM EDT 03/18/2024 2:41 PM EDT Narrative [facility] - 03/18/2024 2:43 PM EDT Therapeutic decision making should be based on absolute values, rather than percentages. Penelope Dodson MD LAB BLOOD ORDERABLES Final Result [facility] [address] [place] [address] documented in this encounter Visit Diagnoses Diagnosis Carcinoma of fallopian tube, unspecified laterality (CMS/HCC)- Primary Encounter for antineoplastic chemotherapy Transaminitis Nonspecific elevation of levels of transaminase or lactic acid dehydrogenase (LDH) documented in this encounter Additional Health Concerns Assessment Noted Time A fall risk assessment has been complete d for the patient 03/18/2024 2:25 PM EDT A Body Mass Index follow-up plan has been documented for the patient 08/19/2022 9:30 AM EST documented as of this encounter Care Teams Cardroom Drawing Runner Relationship Specialty Start Date End Date Flaquita Dorsey DO [address] [place] [address] PCP - General 12/14/21 Aliyah Valencia MD [address] [place] [place] [address] Referring Physician 03/10/21 Conrado Iqbal MD [address] [place] [address] Service Attending Cardiology 08/19/22 documented as of this encounter
--- OUTSIDE RECORDS SUMMARY | 2024-07-10 11:53 | XMS_ITS | Encounter Summary ---
Author Organization Healthcare Address [address] [place], [place] [id number] Care Team Providers Care Freight Breaker Name Role Phone Aliyah Valencia MD Unavailable [phone] Flaquita Dorsey DO Primary Care Provider [phone]- [phone] Conrado Iqbal MD Unavailable Encounter Details Date Type Department Care Team (Latest Contact Info) Description 04/29/2024 Travel Social History Tobacco Use Types Packs/Day [...] AM EST Office Visit [facility] [address] [address] [place] [address] Penelope Carmona MD [address] [facility] [address] [place] [address] 08/05/2024 9:30 AM EST Appointment [facility] [address] [place] [address] 02/26/2025 9:30 AM EDT Appointment [facility] Radha Lai [facility] [address] [place] [address] 02/26/2025 10:30 AM EDT Office Visit [facility] [address] [facility], [address] [place] [address] Berenice Resendez, MISSILE FACILITIES REPAIRER [address] [facility] [address] [facility] [address] [place] [address] documented as of this encounter Visit Diagnoses Not on filedocumented in this encounter Additional Health Concerns Assessment Noted Time A fall risk assessment has been complete d for the patient 04/29/2024 1:49 PM EDT A Body Mass Index follow-up plan has been documented for the patient 08/19/2022 9:30 AM EST documented as of this encounter Care Teams Freight Breaker Relationship Specialty Start Date End Date Flaquita Dorsey DO [address] [place] [address] PCP - General 12/14/21 Aliyah Valencia MD [address] [place] [address] Referring Physician 03/10/21 Conrado Iqbal MD [address] [place] [address] Service Attending Cardiology 08/19/22 documented as of this encounter
--- OUTSIDE RECORDS SUMMARY | 2024-07-10 11:53 | XMS_ITS | Encounter Summary ---
Author Organization Healthcare Address [address] [place] [address] Care Team Providers Care Manager Oracle Database Name Role Phone Aliyah Valencia MD Unavailable [phone] Flaquita Dorsey DO Primary Care Provider [phone] Conrado Iqbal MD Unavailable Encounter Details Date Type Department Care Team (Late st Contact Info) Description 04/10/2024 Telephone [facility] [address] [facility] [address] [place] [address] Sadaf Perea RN [facility] Social History Tobacco Use Types Packs/Day Years [...] encounter Miscellaneous Notes * Telephone Encounter - Sadaf Perea RN - 04/10/2024 2:04 PM EDT Pt called to be scheduled for her next infusion on 04/29. Scheduled her for Dr. Hutchins prior to infusion. Date and time given. Pt verbalized understanding. Karli documented in this encounter Plan of Treatment Upcoming Encounters Date Type Department Care Team (Late st Contact Info) Description 08/05/2024 8:00 AM EST Office Visit [facility] [address] [facility] [address] [place] [address] Penelope Carmona MD 800 [facility] [address] [facility] [address] [place] [address] 08/05/2024 9:30 AM EST Appointment [facility] [address] [place] [address] 02/26/2025 9:30 AM EDT Appointment [facility] [address] [facility] [address] [place] [address] 02/26/2025 10:30 AM EDT Office Visit [facility] [address] [facility], [address] [place] [address] Berenice Resendez, PLASTIC SURGERY SPECIALIST [address] [facility] [address] [facility] [address] [place] [address] documented as of this encounter Visit Diagnoses Not on filedocumented in this encounter Additional Health Concerns Assessment Noted Time A fall risk assessment has been complete d for the patient 04/08/2024 2:17 PM EDT A Body Mass Index follow-up plan has been documented for the patient 08/19/2022 9:30 AM EST documented as of this encounter Care Teams Manager Oracle Database Relationship Specialty Start Date End Date Flaquita Dorsey DO [address] [place] [address] PCP - General 12/14/21 Aliyah Valencia MD [address] [place] [address] Referring Physician 03/10/21 Conrado Iqbal MD [address] [place] [address] Service Attending Cardiology 08/19/22 documented as of this encounter
--- OUTSIDE RECORDS SUMMARY | 2024-07-10 11:53 | XMS_ITS | Encounter Summary ---
Author Organization [facility] Address [facility] [place] [id number] Care Team Providers Care Netsuite Developer Name Role Phone Aliyah Valencia MD Unavailable [phone] Flaquita Dorsey DO Primary Care Provider [phone] Conrado Iqbal MD Unavailable Reason for Visit * Episode Based Medications (Routine) - Authorized Specialty Diagnoses / Procedures Referred By Contac t Referred To Contact Diagnoses Carcinoma of fallopian tube, unspecified laterality (CMS/HCC) Procedures Bevacizumab Every 21 Days Penelope Carmona MD [address] [place] [address] Phone: tel: fax: [facility] Infusion Clinic [address] [place] [address] Phone: tel: Referral ID Status Reason Start Date Expiration Date V isits Requested Visits Authorized [id number] Authorized 03/13/2023 09/11/2024 1 26 Encounter Details Date Type Department Care Team (Latest Contact Info) Description 04/08/2024 2:16 PM EDT - 04/08/2024 11:59 PM EDT Hospital Encounter [facility] [address] [place] [address] Carcinoma of fallopian tube, unspecified [...] Sign Reading Time Taken Comments Blood Pressure 97/57 04/08/2024 2:17 PM EDT Pulse 90 04/08/2024 2:17 PM EDT Temperature 36.8 ??C (98.2 ??F) 04/08/2024 2:17 PM ED T Respiratory Rate 17 04/08/2024 2:17 PM EDT Oxygen Saturation 97% 04/08/2024 2:17 PM EDT Inhaled Oxygen Concentration - - Weight 75.4 kg (166 lb 3.6 oz) 04/08/2024 2:17 P M EDT Height 160 cm (5' 3 ) 04/08/2024 2:17 PM EDT Body Mass Index 29.45 04/08/2024 2:17 PM EDT documented in this encounter Medications at Time of Discharge aspirin 81 MG chewable tablet Chew 1 tablet (81 mg) 1 (one) time each day. ergocalciferol (Vitamin D-2) 1.25 MG (30511 UT) capsule Take 1 capsule (50,000 Units) [...] 05/29/2023 4 documented as of this encounter Plan of Treatment Upcoming Encounters Date Type Department Care Team (Late st Contact Info) Description 08/05/2024 8:00 AM EST Office Visit [facility] [address] [place] [address] Penelope Carmona MD [address] [place] [address] 08/05/2024 9:30 AM EST Appointment [facility] 1 [address] [place] [address] 02/26/2025 9:30 AM EDT Appointment [facility] [address] [place] [address] 02/26/2025 10:30 AM EDT Office Visit [facility] [address] [facility], 2nd [place] [address] Berenice Resendez, CONSULTANT TECHNOLOGY [address] [facility] [address] [place] [address] documented as of this encounter Visit Diagnoses [...] Specific administration requirements refer to [id number]., On 04/08/24 at 1645, For 1 dose, NS 100 mLIndications:Carcinoma of fallopian tube, unspecified laterality (CMS/HCC) New Bag 04/08/2024 5:02 PM EDT 1,200 mg 356 mL/hr documented in this encounter Additional Health Concerns Assessment Noted Time A fall risk assessment has been complete d for the patient 04/08/2024 2:17 PM EDT A Body Mass Index follow-up plan has been documented for the patient 08/19/2022 9:30 AM EST documented as of this encounter Care Teams Netsuite Developer Relationship Specialty Start Date End Date Flaquita Dorsey DO [address] [place], [place] [id number] PCP - General 12/14/21 Aliyah Valencia MD [address] [place] [address] Referring Physician 03/10/21 Conrado Iqbal MD [address] [place] [address] Service Attending Cardiology 08/19/22 documented as of this encounter
--- OUTSIDE RECORDS SUMMARY | 2024-07-10 11:53 | XMS_ITS | Encounter Summary ---
Author Organization Healthcare Address [address] [place], [place] [id number] Care Team Providers Care Manager Aviation Name Role Phone Aliyah Valencia MD Unavailable [phone] Flaquita Dorsey DO Primary Care Provider [phone] Conrado Iqbal MD Unavailable Encounter Details Date Type Department Care Team (Late st Contact Info) Description 04/08/2024 1:00 PM EDT Office Visit [facility] [address] [place] [address] Penelope Carmona MD [address] [facility] [address] [place] [address] Carcinoma of fallopian tube, unspecified laterality (CMS/HCC) (Primary Dx); Encounter for antineoplastic chemotherapy; Vaginal bleeding; Transaminitis Social History Tobacco Use Types Packs/Day [...] Sign Reading Time Taken Comments Blood Pressure 127/75 04/08/2024 1:15 PM EDT Pulse 83 04/08/2024 1:15 PM EDT Temperature 36.3 ??C (97.3 ??F) 04/08/2024 1:15 PM ED T Respiratory Rate 14 04/08/2024 1:15 PM EDT Oxygen Saturation 96% 04/08/2024 1:15 PM EDT Inhaled Oxygen Concentration - - Weight 75.3 kg (166 lb 0.1 oz) 04/08/2024 1:15 P M EDT Height 160 cm (5' 3 ) 04/08/2024 1:15 PM EDT Body Mass Index 29.41 04/08/2024 1:15 PM EDT documented in this encounter Miscellaneous Notes * Progress Notes - Jami Nieves - 04/08/2024 1:00 PM EDT Primary Care Provider: Flaquita Dorsey [...] were negative for metastatic disease. ER and PA were strongly positive and HER-2 was negative. [...] ER positive in 90% of the cells, PA positive in 95% of cells andHER-2 negative by IHC at 0. On 10/04/2016 she underwent a left needle localized lumpectomy. [place] lymph node biopsy was not performed as [...] vagina). Initiated neoadjuvant chemo with carbo/Taxol per ALUMINUM CONTAINER TESTER followed by BSO/Omentectomy and adjuvant Carbotaxol. Recurrence in March 2019. Treated with carbo initially followed by Olaparib. 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 She is currently off of therapy. She follows with Dr. Hutchins in [facility]. 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 Recurrence - First recurrence, chalkyitsik sensitive - CT 04/10/19 with 3 cmlesion at cuff - Ca125 12 (from 8) - MTB discussion: recommend trial if progression on chalkyitsik regimen or consider Parp for RAD 51 [...] ccy for choledocolithiasis 2019 (SGB) - Ca125: 35-5-2-7-7-9-8 - Started Parp inhibitor 09/2019 - Dose [...] 7.49 () 06/30/2021 Recurrence - Third recurrence, chalkyitsik sensitive - CT 06/30/2021 shows vaginal cuff [...] disease seen 04/11/2022 Recurrence - Fourth recurrence, chalkyitsik resistant - CT 04/11/2022 with increase in [...] Chemotherapy - Avastin started 03/20/2023 - Ca125 7.38-7.51-6.5-6.71-6.26-6.58-6.94-6.72-6.86-8.12-9.55-11.5-11.5-10.7-9.98-10 - CT 06/16/2023: Stable to decreased size of vaginal cuff disease, no other new findings - CT 10/18/2023: Stable vaginal cuff lesion, increasing retroperitoneal adenopathy - CT 01/30/2024: Stable vaginal cuff lesion, increasing adenopathy Interval updates to history: Oncologic treatment history as described above reviewed today as well as PMH/PSH/Meds/All/SH/FH, with updates made as appropriate. Patient is here today for cycle 19 of Dana. Stable VB. Patient endorses spotting and changing panty liners 3x per day. Neuropathy stable. Endorses feeling off-balance when turning on feet, not sure if this is secondary to neuropathy or lightheadedness. History of chronic GI problems, including diarrhea. No falls, bladder problems, N/V, or fevers/chills. No new concerns today. PMH: h/o breast cancer x2, ?cervical [...] years ago, no drugs, retired, lives in [place]. FamHx: Father-prostate, MGma-colon. ROS: 14 pt ROS performed with pertinent positives and negatives as noted in HPI. ROS otherwise negative Objective Physical Exam: Vital Signs for this encounter: BSA: 1.83 meters squared Visit Vitals BP 127/75 Pulse 83 Temp 36.3 ??C (97.3 ??F) Resp 14 Ht 1.6 m (5' 3 ) Wt 75.3 kg (166 lb 0.1 oz) LMP 11/17/1981 (Approximate) SpO2 96% BMI 29.41 kg/m?? OB Status Hysterectomy Smoking Status Former BSA 1.83 m?? Physical Exam Vitals and nursing note [...] NEUTROABS 2.25 03/18/2024 BASIC METABOLIC PANEL Na 137 Cl 103 BUN 24 Gluc 123 K 4.3 Co2 19 Creat 0.83 LIVER FUNCTION TESTING Tot Prot 6.7 AST 49 Tot bili 0.5 ALT 39 Alkphos 119 Ca 9.4 Mg No results found for requested labs [...] by radiation for additional recurrence - Now chalkyitsik resistant - Started Dana/oral Cytoxan, held Dana after cycle 4 due to Chest pain - CT after 4 cycles showed interval resolution of vaginal mass and no further disease. - At visit 08/2022: Patient had additional CP episode and heart cath subsequently performed. No severe disease noted and medication administration professional reports ok to continue Dana. However, also [...] and she elects to continue Dana/Cytoxan - Cycle 19 of Dana today. Cyclic Ca125 monitoring with imaging q 3-[address] before next cycle. - Held Cytoxan with cycle 17 due to elevated LFT's. Resumed with cycle 18. Monitor LFT's closely. Problem 2: Encounter for chemotherapy Assessment and plan 2: - Proceed with cycle 19 of Bevacizumab 15 mg/kg today. Plan q [...] cards at - Seen by cardiology at [facility] and acute workup negative but diagnostic [...] related to Cytoxan. - Held again per RUSSIAN HISTORY PROFESSOR with cycle 17. If improved or stable today will resume. - Continue to monitor weekly labs. Continue Cytoxan unless persistence trend of continued elevation. Problem 9: History of cervical cancer Assessment and plan 9: - Distant history, [facility]. Summary of time spent in team based care today includes the following activities performed by myself: review of prior documentation in preparation for visit, review of labs and any other test results, obtaining and reviewing medical history, appropriate focused physical exam, discussion of exam and/or test results, discussion of plan of care, lab orders, phlebotomy, chemo related decision making,CT request and documentation Jamijonh Nieves, MS4 Cosigned by Penelope Carmona MD at 04/08/2024 2:31 PM EDT Associated attestation - Penelope Carmona MD - 04/08/2024 2:31 PM EDT I saw and evaluated the patient with the medical/GRINDER SET UP OPERATOR THREAD/PA student. I discussed the case with the medical/GRINDER SET UP OPERATOR THREAD/PA student and agree with the findings and plan as documented. I personally performed the Examand Medical Decision Making. * Progress Notes - Wen Martinez - 04/08/2024 1:00 PM EDT Pharmacy Hematology/Oncology Treatment Plan Note [...] from 05/28/2001: pT1c, pN0, cM0, G2, ER+, PA+, HER2: Unknown - Signed by Cara Greene MD on 06/19/2021 - Pathologic stage from 10/05/2016: Stage Unknown (rpT1c, pNX, cM0, G2, ER+, PA+, HER2-) - Signed by Cara Greene MD on 06/19/2021 Study Patient: No Treatment Protocol: Bevacizumab IV every 21 days + continuous PO cytoxan Treatment Plan reviewed for: [x] Follow-Up Clinical Review Cycle 19 Day 1 [x] Follow-Up Clinical Review for Continuous Oral Therapy Interval History: LFTs previously elevated; Cytoxan held during cycle 17, but resumed about two weeks ago. LFTs have risen again; begin weekly labs to monitor LFTs. Continue Cytoxan for now; if LFTs continue to rise, stop Cytoxan. Dosing Wt: 84 kg Today's Wt: Wt Readings from Last 1 Encounters: 04/08/24 75.4 kg (166 lb 3.6 oz) Dosing Ht: 160 cm Dosing BSA: 1.88 m2 Recent Labs: Lab Results Component Value Date WBC 3.70 04/08/2024 HGB 13.0 04/08/2024 HCT 39.6 04/08/2024 MCV 107 (H) 04/08/2024 PLT 148 (L) 04/08/2024 Lab Results Component Value Date GLUCOSE 88 04/08/2024 CALCIUM 9.9 04/08/2024 NA 139 04/08/2024 K 4.3 04/08/2024 CO2 25 04/08/2024 CL 102 04/08/2024 BUN 22 04/08/2024 CREATININE 0.86 04/08/2024 Lab Results Component Value Date ALT 148 (H) 04/08/2024 AST 91 (H) 04/08/2024 ALKPHOS 173 (H) 04/08/2024 BILITOT 0.4 04/08/2024 Lab Results Component Value Date NEUTROABS 2.68 04/08/2024 Lab Results Component Value Date MG 1.4 (L) 01/09/2023 No results found for: TSH Lab Results Component Value Date URINEPRO Negative 03/18/2024 Vitals: Vitals: 04/08/24 1315 BP: 127/75 Pulse: 83 Resp: 14 Temp: 36.3 ??C (97.3 ??F) SpO2: 96% Other Relevant Monitoring: None Treatment Plan: Cyclophosphamide [...] 02/26/24 Cycle 18: 03/18/24 Cycle 19: 04/08/24 Prior Chemotherapy History: hormone therapy for prior breast cancer carboplatin/paclitaxel Cycle 1: 04/11/18 Cycle 2: 05/02/18 Cycle 3: 05/23/18 Cycle 4: 08/01/18 Cycle 5: 08/22/18 Cycle 6: 09/12/18 Carboplatin q21d #1: 05/06/19 #2: 06/03/19 #3: 06/24/19 #4: 07/15/19 #5: 08/05/19 #6: 08/26/19 Olaparib continuous oral therapy 09/2019 - 01/2020 (dose reduced and then d/c'd d/t fatigue/anemia Carboplatin #1: 08/04/21 - lifetime dose #2: 08/27/21 #3: 09/15/21 #4: 10/06/21 #5: 10/27/21 - lifetime dose carboplatin #6: 11/17/21 Bevacizumab/oral Cyclophosphamide #1: 04/25/22 #2: 05/16/22 #3: 06/06/22 #4: 07/20/22 #5: 08/10/22 Assessment/Plan: Cytoxan Rx prescribed to: [facility] Refills will be due: 03/2024 Patient will return to clinic in 3 weeks. Will follow-up at that time. Pharmacist Attestation: Wen Martinez on 04/08/2024 at 3:15 PM Cosigned by Serena Xiong PharmD at 04/08/2024 3:36 PM EDT Associated attestation - Serena Xiong PharmD - 04/08/2024 3:36 PM EDT I saw and evaluated the patient with the resident/fellow. I discussed the case with the resident/fellow and agree with the findings and plan as documented. Serena Xiong PharmD, [facility] Hematology/Oncology Clinical Pharmacist documented in this encounter Plan of Treatment Upcoming Encounters Date Type Department Care Team (Late st Contact Info) Description 08/05/2024 8:00 AM EST Office Visit [facility] Gynecology [address] [facility] [address] [place] [phone] Penelope Carmona MD [address] [facility] [address] [facility] [address] [place] [address] 08/05/2024 9:30 AM EST Appointment [facility] [address] [place] [phone] 02/26/2025 9:30 AM EDT Appointment [facility] [place] [address] [facility] [address] [place] [address] 02/26/2025 10:30 AM EDT Office Visit [facility] [address] [facility], [address]nd [place] [address] Berenice Resendez, RUSSIAN HISTORY PROFESSOR [address] [facility] [address] [facility] [address] [place] [address] documented as of this encounter Procedures Procedure Name Priority Date/Time Associated Diagnosis Comments CBC WITH AUTO DIFFERENTIAL Routine 04/08/2024 1:30 PM EDT Carcinoma of fallopian tube, unspecified laterality (CMS/HCC) CA 125 Routine 04/08/2024 1:30 PM EDT Carcinoma of fallopian tube, unspecified laterality (CMS/HCC) COMPREHENSIVE METABOLIC PANEL, PLASMA Routine 04/08/2024 1:30 PM EDT Carcinoma of fallopian tube, unspecified laterality (CMS/HCC) documented in this encounter Results * CA 125 (04/08/2024 1:30 PM EDT) CA 125 11.40 <=38.00 U/mL 04/08/2024 3:09 PM EDT [facility] Blood Blood sample taken from central line / Unknown (Port) Long-term Catheter / Unknown 04/08/2024 1:30 PM EDT 04/08/2024 2:33 PM EDT [facility] - 04/08/2024 3:09 PM EDT Performed by Stephie electrochemiluminescent immunoassay. Results obtained with different test methods or kits cannot be used interchangeably. us Penelope Dodson MD LAB BLOOD ORDERABLES Final Result [facility] [address] [place] [address] * (ABNORMAL) Comprehensive metabolic panel (04/08/2024 1:30 PM EDT) Glucose, Plasma 88 74 - 99 mg/dL 04/08/2024 3:06 PM EDT [facility] BUN, Plasma 22 8 - 23 mg/dL 04/08/2024 3:06 PM EDT [facility] Creatinine, Plasma 0.86 0.60 - 1.10 mg/dL 04/08/2024 3:06 PM EDT [facility] BUN/Creatinine Ratio 26 04/08/2024 3:06 PM EDT [facility] Sodium, Plasma 139 136 - 145 mmol/L 04/08/2024 3:06 PM EDT [facility] Potassium, Plasma 4.3 3.6 - 4.9 mmol/L 04/08/2024 3:06 PM EDT [facility] Chloride, Plasma 102 97 - 107 mmol/L 04/08/2024 3:06 PM EDT [facility] CO2, Plasma 25 22 - 29 mmol/L 04/08/2024 3:06 PM EDT [facility] Anion Gap 12 6 - 16 mmol/L 04/08/2024 3:06 PM EDT [facility] Total Calcium, Plasma 9.9 8.9 - 10.2 mg/dL 04/08/2024 3:06 PM EDT [facility] Total Protein 6.8 6.3 - 7.9 g/dL 04/08/2024 3:06 PM EDT [facility] Albumin, Plasma 4.0 3.5 - 5.2 g/dL 04/08/2024 3:06 PM EDT [facility] AST, Plasma 91(H) 10 - 35 U/L 04/08/2024 3:06 PM EDT [facility] ALT, Plasma 148(H) 10 - 35 U/L 04/08/2024 3:06 PM EDT [facility] Alkaline Phosphatase, Plasma 173(H) 46 - 142 U/L 04/08/2024 3:06 PM EDT [facility] Total Bilirubin, Plasma 0.4 0.2 - 1.1 mg/dL 04/08/2024 3:06 PM EDT [facility] eGFRcr 69.2 mL/min/1.7 3m*2 04/08/2024 3:06 PM EDT [facility] Comment:Reported eGFRcr in m L/min/1.73m2 is based the CKD-EPI 2020 equation that does not use a race coefficient. Blood Blood sample taken from central line / Unknown (Port) Long-term Catheter / Unknown 04/08/2024 1:30 PM EDT 04/08/2024 2:33 PM EDT us Penelope Dodson MD LAB BLOOD ORDERABLES Final Result [facility] [address] [place] [address] * (ABNORMAL) CBC and differential (04/08/2024 1:30 PM EDT) [facility] WBC Count 3.70 3.70 - 10.30 10*3/uL LAB HEMATOLOGY METHOD 04/08/2024 2:03 PM EDT [facility] RBC Count 3.71(L) 3.90 - 5.20 10*6/uL LAB HEMATOLOGY METHOD 04/08/2024 2:03 PM EDT [facility] HGB 13.0 11.2 - 15.7 g/dL LAB HEMATOLOGY METHOD 04/08/2024 2:03 PM EDT [facility] HCT 39.6 34.0 - 45.0 % LAB HEMATOLOGY METHOD 04/08/2024 2:03 PM EDT [facility] Platelet Count 148(L) 155 - 369 10*3/uL LAB HEMATOLOGY METHOD 04/08/2024 2:03 PM EDT [facility] MCV 107(H) 79 - 98 fL LAB HEMATOLOGY METHOD 04/08/2024 2:03 PM EDT [facility] MCH 35.0(H) 26.0 - 32.0 pg LAB HEMATOLOGY METHOD 04/08/2024 2:03 PM EDT [facility] MCHC 32.8 30.7 - 35.5 g/dL LAB HEMATOLOGY METHOD 04/08/2024 2:03 PM EDT [facility] RDW 15.3(H) 11.5 - 14.5 % LAB HEMATOLOGY METHOD 04/08/2024 2:03 PM EDT [facility] MPV 9.7 8.8 - 12.5 fL LAB HEMATOLOGY METHOD 04/08/2024 2:03 PM EDT [facility] nRBC 0.0 <=0.0 per 100 WBCs LAB HEMATOLOGY METHOD 04/08/2024 2:03 PM EDT [facility] Differential Type Automated LAB HEMATOLOGY METHOD 04/08/2024 2:03 PM EDT [facility] Neutrophils % 72.0 % LAB HEMATOLOGY METHOD 04/08/2024 2:03 PM EDT [facility] Lymphocytes % 14.0 % LAB HEMATOLOGY METHOD 04/08/2024 2:03 PM EDT [facility] Monocytes % 9.0 % LAB HEMATOLOGY METHOD 04/08/2024 2:03 PM EDT [facility] Eosinophils % 4.0 % LAB HEMATOLOGY METHOD 04/08/2024 2:03 PM EDT [facility] Basophils % 1.0 % LAB HEMATOLOGY METHOD 04/08/2024 2:03 PM EDT [facility] Immature Granulocytes % 0.0 % LAB HEMATOLOGY METHOD 04/08/2024 2:03 PM EDT [facility] Neutrophils Absolute 2.68 1.60 - 6.10 10*3/uL LAB HEMATOLOGY METHOD 04/08/2024 2:03 PM EDT [facility] Lymphocytes Absolute 0.52(L) 1.20 - 3.90 10*3/uL LAB HEMATOLOGY METHOD 04/08/2024 2:03 PM EDT [facility] Monocytes Absolute 0.32 0.30 - 0.90 10*3/uL LAB HEMATOLOGY METHOD 04/08/2024 2:03 PM EDT [facility] Eosinophils Absolute 0.14 0.00 - 0.50 10*3/uL LAB HEMATOLOGY METHOD 04/08/2024 2:03 PM EDT [facility] Basophils Absolute 0.03 0.00 - 0.10 10*3/uL LAB HEMATOLOGY METHOD 04/08/2024 2:03 PM EDT [facility] Immature Granulocytes Absolute 0.01 0.00 - 0.06 10*3/uL LAB HEMATOLOGY METHOD 04/08/2024 2:03 PM EDT [facility] Blood Blood sample taken from central line / Unknown (Port) Long-term Catheter / Unknown 04/08/2024 1:30 PM EDT 04/08/2024 2:01 PM EDT Narrative [facility] - 04/08/2024 2:03 PM EDT Therapeutic decision making should be based on absolute values, rather than percentages. us Penelope Dodson MD LAB BLOOD ORDERABLES Final Result [facility] [address] [place] [address] documented in this encounter Visit Diagnoses Diagnosis Carcinoma of fallopian tube, unspecified laterality (CMS/HCC)- Primary Encounter for antineoplastic chemotherapy Vaginal bleeding Other specified noninflammatory disorder of vagina Transaminitis Nonspecific elevation of levels of transaminase or lactic acid dehydrogenase (LDH) documented in this encounter Additional Health Concerns Assessment Noted Time A fall risk assessment has been complete d for the patient 04/08/2024 2:17 PM EDT A Body Mass Index follow-up plan has been documented for the patient 08/19/2022 9:30 AM EST documented as of this encounter Care Teams Manager Aviation Relationship Specialty Start Date End Date Flaquita Dorsey DO [address] [place], [place] [phone] PCP - General 12/14/21 Aliyah Valencia MD [address] [place], [place] [phone] Referring Physician 03/10/21 Conrado Iqbal MD [address] [place] [address] Service Attending Cardiology 08/19/22 documented as of this encounter
--- OUTSIDE RECORDS SUMMARY | 2024-07-10 11:53 | XMS_ITS | Encounter Summary ---
Author Organization Healthcare Address [address] [place], [place] [address] Care Team Providers Care Vacuum Tank Tender Name Role Phone Aliyah Valencia MD Unavailable [phone] Flaquita Dorsey DO Primary Care Provider [phone] Conrado Iqbal MD Unavailable Reason for Visit * Reason Comments Chemotherapy * Episode Based Medications (Routine) - Authorized Specialty Diagnoses / Procedures Referred By Contac t Referred To Contact Diagnoses Carcinoma of fallopian tube, unspecified laterality (CMS/HCC) Procedures Bevacizumab Every 21 Days Penelope Carmona MD [address] [facility] [address] [facility] [address] [place] [address] Phone: tel: fax: [facility] Infusion Clinic [address] [place] [address] Phone: tel: Referral ID Status Reason Start Date Expiration Date V isits Requested Visits Authorized [id number] Authorized 03/13/2023 09/11/2024 1 26 Encounter Details Date Type Department Care Team (Late st Contact Info) Description 04/29/2024 1:15 PM EDT Office Visit [facility] Gynecology [address] [address] [place] [address] Penelope Carmona MD [address] [facility] [address] [place] [address] Carcinoma of fallopian tube, unspecified laterality (CMS/HCC) (Primary Dx); Encounter for antineoplastic chemotherapy; Malignant neoplasm of overlapping sites of left breast in female, estrogen receptor positive (CMS/HCC); Neuropathy; Vaginal bleeding Social History Tobacco Use Types Packs/Day Years [...] Sign Reading Time Taken Comments Blood Pressure 124/75 04/29/2024 1:12 PM EDT Pulse 90 04/29/2024 1:12 PM EDT Temperature 36.3 ??C (97.4 ??F) 04/29/2024 1:12 PM ED T Respiratory Rate 14 04/29/2024 1:12 PM EDT Oxygen Saturation 95% 04/29/2024 1:12 PM EDT Inhaled Oxygen Concentration - - Weight 75.4 kg (166 lb 3.6 oz) 04/29/2024 1:12 P M EDT Height 160 cm (5' 3 ) 04/29/2024 1:12 PM EDT Body Mass Index 29.45 04/29/2024 1:12 PM EDT documented in this encounter Miscellaneous Notes * Progress Notes - Ambrose Go MD - 04/29/2024 1:15 PM EDT Primary Care Provider: Flaquita Dorsey DO History of Present Illness: Chief complaint: 78 yo female here for clearance for and administration of Bevacizumab for recurrent fallopian tube cancer and to review CT results from 04/22/2024. Oncologic history is as follows: Oncology History [...] were negative for metastatic disease. ER and [place] were strongly positive and HER-2 was negative. [...] ER positive in 90% of the cells, [place] positive in 95% of cells andHER-2 negative by IHC at 0. On 10/04/2016 she underwent a left needle localized lumpectomy. Mil[place] lymph node biopsy was not performed as [...] vagina). Initiated neoadjuvant chemo with carbo/Taxol per BLOWER MECHANIC followed by BSO/Omentectomy and adjuvant Carbotaxol. Recurrence in March 2019. Treated with carbo initially followed by Olaparib. 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 She is currently off of therapy. She follows with Dr. Hutchins in [place]. 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 Recurrence - First recurrence, [place] sensitive - CT 04/10/19 with 3 cmlesion at cuff - Ca125 12 (from 8) - MTB discussion: recommend trial if progression on [place] regimen or consider Parp for RAD 51 [...] ccy for choledocolithiasis 2019 (SGB) - Ca125: 63-1-6-7-7-9-8 - Started Parp inhibitor 09/2019 - Dose [...] 7.49 () 06/30/2021 Recurrence - Third recurrence, [place] sensitive - CT 06/30/2021 shows vaginal cuff [...] disease seen 04/11/2022 Recurrence - Fourth recurrence, [place] resistant - CT 04/11/2022 with increase in [...] - Avastin started 03/20/2023 - Ca125 7.38-7.51-6.5-6.71-6.26-6.58-6.94-6.72-6.86-8.12-9.55-11.5-11.5-10.7-9.98-10- 11.4 - CT 06/16/2023: Stable to decreased size [...] appropriate. Patient is here today for cycle 20 of Dana. She is doing well today. Continues to have daily vaginal bleeding that is stable to baseline. Spotting to light period. Stable neuropathy. Reports some pain along ribs. No trouble breathing. No cough. No nausea/vomiting/diarrhea. No changes in bladder or bowel function. 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 SocHx: 1-2 drinks/year, quit smoking 20 years ago, no drugs, retired, lives in [place]. FamHx: Father-prostate, MGma-colon. ROS: 14 pt ROS performed with pertinent positives and negatives as noted in HPI. ROS otherwise negative Objective Physical Exam: Vital Signs for this encounter: BSA: 1.83 meters squared Visit Vitals BP 124/75 (BP Location: Right arm, Patient Position: Sitting, BP Cuff Size: Adult) Pulse 90 Temp 36.3 ??C (97.4 ??F) (Temporal) Resp 14 Ht 1.6 m (5' 3 ) Wt 75.4 kg (166 lb 3.6 oz) LMP 11/17/1981 (Approximate) SpO2 95% BMI 29.45 kg/m?? OB Status Hysterectomy Smoking Status Former [...] Status: Asymptomatic PS= 0 Results: CBC WBC 3.70 Hgb 13.0 PLT 148 HCT 39.6 Lab Results Component Value Date NEUTROABS 2.68 04/08/2024 BASIC METABOLIC PANEL Na 139 Cl 102 BUN 22 Gluc 88 K 4.3 Co2 25 Creat 0.86 LIVER FUNCTION TESTING Tot Prot 6.8 AST 91 Tot bili 0.4 ALT 148 Alkphos 173 Ca 9.9 Mg No results found for requested labs within last 365 days. Phos No results found for requested labs within last 365 days. === 04/22/24 === CT ABDOMEN PELVIS W IV CONTRAST - Narrative - CLINICAL INDICATION: Ovarian cancer, staging TECHNIQUE: Multiple [...] to 12 mm short axis remain unchanged. - Impression - Chest: No evidence of disease progression. Abdomen/Pelvis: Similar appearance of the vaginal cuff lesion and posterior bladder wall thickening. Slight interval enlargement of right external iliac chain lymph node. Remaining retroperitoneal andpelvic adenopathy have decreased in size. CRITICAL RESULT: No. COMMUNICATION: Per this written report. Drafted by Bria Ballesteros MD on 04/22/2024 3:45 PM Final report signed by Bria Ballesteros MD on 04/22/2024 4:10 PM Assessment/Plan Problem 1: Recurrent serous fallopian tube cancer (right) Assessment and plan 1: - s/p chemo/debulking at initial diagnosis - Has had additional chemo for recurrence followed by radiation for additional recurrence - Now [place] resistant - Started Dana/oral Cytoxan, held Dana after cycle 4 due to Chest pain - CT after 4 cycles showed interval resolution of vaginal mass and no further disease. - At visit 08/2022: Patient had additional CP episode and heart cath subsequently performed. No severe disease noted and talent rep reports ok to continue Dana. However, also [...] elects to continue Dana/Cytoxan - CT 04/22/2024: Images reviewed and agree with reported findings. Stable to improved disease in most areas. - Cycle 20 of Dana today. Cyclic Ca125 monitoring with imaging q 3-4 cycles. - Held Cytoxan with cycle 17 due to elevated LFT's. Resumed with cycle 18. Monitor LFT's closely - most recent outside labs normal. Today's labs pending. Problem 2: Encounter for chemotherapy Assessment and plan 2: - Proceed with cycle 20 of Bevacizumab 15 mg/kg today. Plan q [...] JARED) - back on anastrazole at this time, renewed Rx today Problem 5: Neuropathy Assessment and plan 5: - Treatment related. - Will not use Taxol again. - Currently on Gabapentin 600 mg at bedtime; renewed Rx today Problem 6: h/o syncope episodes and carotid stenosis, now with chest tightness over 2021, in July 2022, 10/28/2022, 12/15/2022, 04/2023 Assessment and plan 6: - Has been followed in past with cards at - Seen by cardiology at [facility] and acute workup negative but [...] April 2023 - ED workup negative for MA - No further episodes since fall 2022 [...] related to Cytoxan. - Held again per INTERNET SYSTEMS ADMINISTRATOR with cycle 17. Resumed for cycle 18. Have been largely normal LFT's since - Continue to monitor weekly labs. Continue Cytoxan unless persistence trend of continued elevation. 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 Ambrose Go MD PGY-4, Obstetrics and Gynecology Pager: [phone] Summary of time spent in team based care today includes the following activities performed by myself: review of prior documentation in preparation for visit, review of labs and any other test results, obtaining and reviewing medical history, appropriate focused physical exam, discussion of exam and/or test results, discussion of plan of care, lab orders, phlebotomy, chemo related decision making,prescription x 2 and documentation Cosigned by Penelope Carmona MD at 04/29/2024 3:18 PM EDT Associated attestation - Penelope Carmona MD - 04/29/2024 3:18 PM EDT I saw and evaluated the patient with the resident/fellow. I discussed the case with the resident/fellow and agree with the findings and plan as documented. * Progress Notes - Wen Martinez - 04/29/2024 1:15 PM EDT Pharmacy Hematology/Oncology Treatment Plan [...] from 05/28/2001: pT1c, pN0, cM0, G2, ER+, NY+, HER2: Unknown - Signed by Cara Greene MD on 06/19/2021 - Pathologic stage from 10/05/2016: Stage Unknown (rpT1c, pNX, cM0, G2, ER+, NY+, HER2-) - Signed by Cara Greene MD on 06/19/2021 Study Patient: No Treatment Protocol: Bevacizumab IV every 21 days + continuous PO cytoxan Treatment Plan reviewed for: [x] Follow-Up Clinical Review Cycle 20 Day 1 [x] Follow-Up Clinical Review for Continuous Oral Therapy Interval History: Outside labs (in chart review, under media- labs taken 04/24/24) were reviewed and are appropriate. Cytoxan refills have been sent. Continue with treatment. Dosing Wt: 84 kg Today's Wt: Wt Readings from Last 1 Encounters: 04/29/24 75.4 kg (166 lb 3.6 oz) Dosing [...] Value Date URINEPRO Negative 03/18/2024 Vitals: Vitals: 04/29/24 1312 BP: 124/75 Pulse: 90 Resp: 14 Temp: 36.3 ??C (97.4 ??F) SpO2: 95% Other Relevant Monitoring: None [...] 03/18/24 Cycle 19: 04/08/24 Cycle 20: 04/29/24 Prior Chemotherapy History: hormone therapy for prior [...] #3: 09/15/21 #4: 10/06/21 #5: 10/27/21 - th lifetime dose carboplatin #6: 11/17/21 Bevacizumab/oral Cyclophosphamide #1: 04/25/22 #2: 05/16/22 #3: 06/06/22 #4: 07/20/22 #5: 08/10/22 Assessment/Plan: Cytoxan Rx prescribed to: [facility] Refills will be due: 06/2024 Patient will return to clinic in 3 weeks. Will follow-up at that time. Pharmacist Attestation: Warren AvitiaD PGY1 Floorperson Cosigned by Serena Xiong PharmD at 04/29/2024 4:30 PM EDT Associated attestation - Serena Xiong, PharmD - 04/29/2024 4:30 PM EDT I saw and evaluated the patient with the resident/fellow. I discussed the case with the resident/fellow and agree with the findings and plan as documented. Serena Xiong, PharmD, [facility] Hematology/Oncology Clinical Pharmacist documented in this encounter Plan of Treatment Upcoming Encounters Date Type Department Care Team (Late st Contact Info) Description 08/05/2024 8:00 AM EST Office Visit [facility] Gynecology [address] [facility] [address] [place] [id number] Penelope Carmona MD [address] [facility] [address] [facility] [address] [place] [address] 08/05/2024 9:30 AM EST Appointment [facility] Infusion Clinic [address] [place] [address] 02/26/2025 9:30 AM EDT Appointment [facility] [place] [facility] [address] [facility] [address] [place] [address] 02/26/2025 10:30 AM EDT Office Visit [facility] Breast [facility] [place] [address] [facility] [place] [address] Berenice Resendez, INTERNET SYSTEMS ADMINISTRATOR [address] [facility] [address] [facility] [address] [place] [address] documented as of this encounter Procedures Procedure Name Priority Date/Time Associated Diagnosis Comments URINALYSIS MICROSCOPIC FOR UA REFLEX Routine 04/29/2024 1:42 PM EDT Carcinoma of fallopian tube, unspecified laterality (CMS/HCC) URINALYSIS WITH REFLEX MICROSCOPIC Routine 04/29/2024 1:42 PM EDT Carcinoma of fallopian tube, unspecified laterality (CMS/HCC) CA 125 Routine 04/29/2024 1:42 PM EDT Carcinoma of fallopian tube, unspecified laterality (CMS/HCC) documented in this encounter Results * Urinalysis Microscopic Examination (04/29/2024 1:42 PM EDT) Urine Urine specimen obtained by clean catch procedure / Unknown Non-blood Collection / Unknown 04/29/2024 1:42 PM EDT 04/29/2024 3:06 PM EDT us Penelope Dodson MD LAB URINE ORDERABLES Final Result [facility] [address] [place] [address] * (ABNORMAL) Urinalysis with reflex microscopic (Culture NOT Included) (04/29/2024 1:42 PM EDT) Color, Urine Yellow LAB URINALYSIS - AUTOMATED METHOD 04/29/2024 3:35 PM EDT [facility] Clarity, Urine Clear LAB URINALYSIS - AUTOMATED METHOD 04/29/2024 3:35 PM EDT [facility] Spec [place], Urine 1.007 1.005 - 1.030 LAB URINALYSIS - AUTOMATED METHOD 04/29/2024 3:35 PM EDT [facility] pH, Urine 6.0 4.5 to 8 LAB URINALYSIS - AUTOMATED METHOD 04/29/2024 3:35 PM EDT [facility] Protein, Urine Negative Negative mg/dL LAB URINALYSIS - AUTOMATED METHOD 04/29/2024 3:35 PM EDT [facility] Glucose, Urine Negative Negative mg/dL LAB URINALYSIS - AUTOMATED METHOD 04/29/2024 3:35 PM EDT [facility] Ketones, Urine Negative Negative mg/dL LAB URINALYSIS - AUTOMATED METHOD 04/29/2024 3:35 PM EDT [facility] Blood, Urine Moderate(A) Negative LAB URINALYSIS - AUTOMATED METHOD 04/29/2024 3:35 PM EDT [facility] Bilirubin, Urine Negative Negative LAB URINALYSIS - AUTOMATED METHOD 04/29/2024 3:35 PM EDT [facility] Urobilinogen, Urine 0.2 0.2 to 1.0 mg/dL LAB URINALYSIS - AUTOMATED METHOD 04/29/2024 3:35 PM EDT [facility] Leukocytes, Urine Moderate(A) Negative LAB URINALYSIS - AUTOMATED METHOD 04/29/2024 3:35 PM EDT [facility] Nitrite, Urine Negative Negative LAB URINALYSIS - AUTOMATED METHOD 04/29/2024 3:35 PM EDT [facility] RBC, Urine 4 - 10(A) 0 to 3 /HPF 04/29/2024 3:35 PM EDT [facility] Comment:This result was prev iously suppressed from the chart. WBC, Urine 21 - 50(A) 0 to 5 /HPF 04/29/2024 3:35 PM EDT [facility] Comment:This result was prev iously suppressed from the chart. Squamous Epithelial Cells 0 - 2 0 to 5 /HPF 04/29/2024 3:35 PM EDT [facility] Comment:This result was prev iously suppressed from the chart. Hyaline Casts 0 - 2 0 to 5 /LPF 04/29/2024 3:35 PM EDT [facility] Comment:This result was prev iously suppressed from the chart. Bacteria, Urine Negative Negative 04/29/2024 3:35 PM EDT [facility] Comment:This result was prev iously suppressed from the chart. Urine Urine specimen obtained by clean catch procedure / Unknown Non-blood Collection / Unknown 04/29/2024 1:42 PM EDT 04/29/2024 3:06 PM EDT us Penelope Dodson MD LAB URINE ORDERABLES Final Result [facility] [address] [place] [address] * CA 125 (04/29/2024 1:42 PM EDT) CA 125 10.30 <=38.00 U/mL 04/29/2024 3:23 PM EDT [facility] Blood Blood sample taken from central line / Unknown (Port) Long-term Catheter / Unknown 04/29/2024 1:42 PM EDT 04/29/2024 2:47 PM EDT Narrative [facility] - 04/29/2024 3:23 PM EDT Performed by Stephie electrochemiluminescent immunoassay. Results obtained with different test methods or kits cannot be used interchangeably. Penelope Dodson MD LAB BLOOD ORDERABLES Final Result [facility] [address] [place] [address] documented in this encounter Visit Diagnoses Diagnosis Carcinoma of fallopian tube, unspecified laterality (CMS/HCC)- Primary Encounter for antineoplastic chemotherapy Malignant neoplasm of overlapping sites of left breast in female, estrogen receptor positive (CMS/HCC) Neuropathy Mononeuritis of unspecified site Vaginal bleeding Other specified noninflammatory disorder of vagina documented in this encounter Additional Health Concerns Assessment Noted Time A fall risk assessment has been complete d for the patient 04/29/2024 1:49 PM EDT A Body Mass Index follow-up plan has been documented for the patient 08/19/2022 9:30 AM EST documented as of this encounter Care Teams Vacuum Tank Tender Relationship Specialty Start Date End Date Flaquita Dorsey DO [address] [place] [address] PCP - General 12/14/21 Aliyah Valencia MD [address] [place] [address] Referring Physician 03/10/21 Conrado Iqbal MD [address] [place] [address] Service Attending Cardiology 08/19/22 documented as of this encounter
--- OUTSIDE RECORDS SUMMARY | 2024-07-10 11:53 | XMS_ITS | Encounter Summary ---
Author Organization [facility] Address [address] [place], [place] [address] Care Team Providers Care Cotton Agent Name Role Phone Aliyah Valencia MD Unavailable [phone] Flaquita Dorsey DO Primary Care Provider [phone] Conrado Iqbal MD Unavailable Reason for Visit * Episode Based Medications (Routine) - Authorized Specialty Diagnoses / Procedures Referred By Contac t Referred To Contact Diagnoses Carcinoma of fallopian tube, unspecified laterality (CMS/HCC) Procedures Bevacizumab Every 21 Days Penelope Carmona MD [address] [address] Phone: tel: fax: [facility] Infusion Clinic [address] [place] [address] Phone: tel: Referral ID Status Reason Start Date Expiration Date V isits Requested Visits Authorized [id number] Authorized 03/13/2023 09/11/2024 1 26 Encounter Details Date Type Department Care Team (Latest Contact Info) Description 04/29/2024 2:30 PM EDT - 04/29/2024 11:59 PM EDT Hospital Encounter [facility] [address] [place] [address] Carcinoma of fallopian tube, unspecified [...] Sign Reading Time Taken Comments Blood Pressure 99/59 04/29/2024 1:49 PM EDT Pulse 104 04/29/2024 1:49 PM EDT Temperature 36.8 ??C (98.3 ??F) 04/29/2024 1:49 PM ED T Respiratory Rate 19 04/29/2024 1:49 PM EDT Oxygen Saturation 97% 04/29/2024 1:49 PM EDT Inhaled Oxygen Concentration - - Weight 75.4 kg (166 lb 3.6 oz) 04/29/2024 1:49 P M EDT Height 160 cm (5' 3 ) 04/29/2024 1:49 PM EDT Body Mass Index 29.45 04/29/2024 1:49 PM EDT documented in this encounter Medications at Time of Discharge aspirin 81 MG chewable tablet Chew 1 tablet (81 mg) 1 (one) time each day. ergocalciferol (Vitamin D-2) 1.25 MG (03642 UT) capsule Take 1 capsule (50,000 Units) by mouth 1 (one) time per week. Monday erythromycin (Romycin) 5 MG/GM ophthalmic ointment Apply 1 Application to right eye every 8 (eight) hours. 08/11/2023 furosemide (Lasix) 20 MG tablet Take 1 tablet (20 mg) by mouth 1 (one) time each day. 12/10/2021 gabapentin (Neurontin) 300 MG capsuleIndication s:Carcinoma of [...] morning. 02/16/2024 anastrozole (Arimidex) 1 MG chemo tabletIndications :Malignant neoplasm of overlapping sites of left breast in female, estrogen receptor positive (CMS/HCC) Take 1 tablet (1 mg total) by mouth 1 (one) time each day. Swallow whole with a drink of water. 30 tablet 2 04/29/2024 4 biotin 1000 MCG tablet Take 1 tablet (1,000 mcg) by mouth 1 (one) time each day. 4 cyclophosphamide (Cytoxan) 50 MG capsule capsule Take 1 capsule (50 mg) by mouth 1 (one) time each day. 30 capsule 3 04/29/2024 4 Flaxseed, Linseed, (Flaxseed Oil) 1000 MG capsule Take 1 tablet by mouth 1 (one) time each day. 4 nitroglycerin (Nitrostat) 0.4 MG SL tablet [...] 1 (one) time each day. 05/29/2023 4 valACYclovir (Valtrex) 500 MG tablet Take 1 tablet (500 mg) by mouth 1 (one) time each day. 04/29/2024 4 documented as of this encounter Plan of Treatment Upcoming Encounters Date Type Department Care Team (Late st Contact Info) Description 08/05/2024 8:00 AM EST Office Visit [facility]ne[facility] [address] [place] [address] Penelope Carmona MD 800 [facility] [address] [facility] [address] [place] [address] 08/05/2024 9:30 AM EST Appointment [facility] 1 [address] [place] [address] 02/26/2025 9:30 AM EDT Appointment [facility] [address] [facility] [address] [place] [address] 02/26/2025 10:30 AM EDT Office Visit [facility] Breast Care [place] [address] [facility] [place] [address] Berenice Resendez, ROVING MACHINE OPERATOR 800 [facility] [address]elle [facility] [address] [place] [address] documented as of this encounter [...] Specific administration requirements refer to [id number]., On 04/29/24 at 1545, For 1 dose, NS 100 mLIndications:Carcinoma of fallopian tube, unspecified laterality (CMS/HCC) New Bag 04/29/2024 4:39 PM EDT 1,200 mg 356 mL/hr documented in this encounter Additional Health Concerns Assessment Noted Time A fall risk assessment has been complete d for the patient 04/29/2024 1:49 PM EDT A Body Mass Index follow-up plan has been documented for the patient 08/19/2022 9:30 AM EST documented as of this encounter Care Teams Cotton Agent Relationship Specialty Start Date End Date Flaquita Dorsey DO [address] [place], [place] [id number] PCP - General 12/14/21 Aliyah Valencia MD [address] [place], [place] [id number] Referring Physician 03/10/21 Conrado Iqbal MD [address] [place] [address] Service Attending Cardiology 08/19/22 documented as of this encounter
--- OUTSIDE RECORDS SUMMARY | 2024-07-10 11:53 | XMS_ITS | Encounter Summary ---
Author Organization [facility] Address [address] [place] [address] Care Team Providers Care Structural Steel Trades Worker Name Role Phone Aliyah Valencia MD Unavailable [phone] Flaquita Dorsey DO Primary Care Provider [phone] Conrado Iqbal MD Unavailable Reason for Referral * Imaging (Routine) - Closed Specialty Diagnoses / Procedures Referred By Contac t Referred To Contact Radiology Diagnoses Carcinoma of fallopian tube, unspecified laterality (CMS/HCC) Procedures CT Abdomen Pelvis w IV Contrast Penelope Carmona MD [address] [address] Phone: tel: fax: Referral ID Status Reason Start Date Expiration Date Visits Re quested Visits Authorized [id number] Closed 04/08/2024 10/08/2025 1 1 * Imaging (Routine) - Closed Specialty Diagnoses / Procedures Referred By Contac t Referred To Contact Radiology Diagnoses Carcinoma of fallopian tube, unspecified laterality (CMS/HCC) Procedures CT Chest w IV Contrast Penelope Carmona MD [address] [address] Phone: tel: fax: Referral ID Status Reason Start Date Expiration Date Visits Re quested Visits Authorized [id number] Closed 04/08/2024 10/08/2025 1 1 Encounter Details Date Type Department Care Team (Late Contact Info) Description 04/08/2024 Orders Only [facility] [address] [place] [address] Penelope Carmona MD 800 [facility] Mayra Joelle [facility] [address] [place] [address] Carcinoma of fallopian tube, unspecified laterality (CMS/HCC) (Primary Dx) Social History Tobacco Use Types Packs/Day Years [...] Encounters Date Type Department Care Team (Late Contact Info) Description 08/05/2024 8:00 AM EST Office Visit [facility] [address] [place] [address] Penelope Carmona MD 800 [facility] Mayra Joelle [facility] [address] [address] 08/05/2024 9:30 AM EST Appointment [facility] 1 [address] [place] [address] 02/26/2025 9:30 AM EDT Appointment [facility] [address] [facility] 800 [place] [address] 02/26/2025 10:30 AM EDT Office Visit [facility] [address], [address]nd [place] [address] Berenice Resendez, WRAPPER COUNTER [address] [place] [address] documented as of this encounter Results * CT Abdomen Pelvis [...] of fallopian tube, unspecified laterality (CMS/HCC)- Primary Carcinoma of fallopian tube, unspecified laterality (CMS/HCC) documented in this encounter Additional Health Concerns Assessment Noted Time A fall risk assessment has been complete d for the patient 04/08/2024 2:17 PM EDT A Body Mass Index follow-up plan has been documented for the patient 08/19/2022 9:30 AM EST documented as of this encounter Care Teams Structural Steel Trades Worker Relationship Specialty Start Date End Date Flaquita Dorsey DO [address] [place] [address] PCP - General 12/14/21 Aliyah Valencia MD [address] [address] Referring Physician 03/10/21 Cornado Iqbal MD [address] [place] [phone] Service Attending Cardiology 08/19/22 documented as of this encounter
--- OUTSIDE RECORDS SUMMARY | 2024-07-10 11:53 | XMS_ITS | Encounter Summary ---
Author Organization Healthcare Address [facility] [place] [id number] Care Team Providers Care Elevator Erector Helper Name Role Phone Aliyah Valencia MD Unavailable [phone] Flaquita Dorsey DO Primary Care Provider +- [phone] Conrado Iqbal MD Unavailable Encounter Details Date Type Department Care Team (Late st Contact Info) Description 02/27/2024 Telephone [facility] [address] [place] [address] TamoraEly S, MINE GEOLOGIST [address] [facility] [address] [place] [address] Social History Tobacco Use Types [...] encounter Miscellaneous Notes * Telephone Encounter - Mily Lopez Prem - 02/27/2024 1:34 PM EDT Pt returned missed call and I made her aware to hold her cytoxan per Ely. Pt verbalized understanding. documented in this encounter Plan of Treatment Upcoming Encounters Date Type Department Care Team ([facility] st Contact Info) Description 08/05/2024 8:00 AM EST Office Visit [facility] 800 [facility] [address] [place] [address] Penelope Carmona MD 800 [facility] Mayra Lai [facility] [address] [place] [address] 08/05/2024 9:30 AM EST Appointment [facility] 1 [address] [place] [address] 02/26/2025 9:30 AM EDT Appointment [facility] [address] [facility] 800 [place] [address] 02/26/2025 10:30 AM EDT Office Visit [facility] Breast Care Center 740 [facility], 2nd [place] [address] Berenice Resendez, MINE GEOLOGIST 800 [facility] Mayra Lai [facility] 134 [place] [address] documented as of this encounter Visit Diagnoses Not on filedocumented in this encounter Additional Health Concerns Assessment Noted Time A fall risk assessment has been complete d for the patient 02/26/2024 4:14 PM EDT A Body Mass Index follow-up plan has been documented for the patient 08/19/2022 9:30 AM EST documented as of this encounter Care Teams Elevator Erector Helper Relationship Specialty Start Date End Date Flaquita Dorsey DO [address] [place] [address] PCP - General 12/14/21 Aliyah Valencia MD [address] [place] [address] Referring Physician 03/10/21 Conrado Iqbal MD 800 [place] [address] Service Attending Cardiology 08/19/22 documented as of this encounter
--- OUTSIDE RECORDS SUMMARY | 2024-07-10 11:53 | XMS_ITS | Encounter Summary ---
Author Organization Healthcare Address [address] [place] [address] Care Team Providers Care Editor In Chief Name Role Phone Aliyah Valencia MD Unavailable [phone] Flaquita Dorsey DO Primary Care Provider +- [phone] Conrado Iqbal MD Unavailable Encounter Details Date Type Department Care Team (Latest Contact Info) Description 04/22/2024 Travel Social History Tobacco Use Types Packs/Day [...] AM EST Office Visit [facility] [address] [address] [address] [place] [address] Penelope Carmona MD 800 [facility] [address]ick [address] [place] [address] 08/05/2024 9:30 AM EST Appointment [facility] 1 [address] [place] [address] 02/26/2025 9:30 AM EDT Appointment [facility] Psychiatric Radha Lai [facility] 800 [place] [address] 02/26/2025 10:30 AM EDT Office Visit [facility] 740 [facility], 2nd [place] [address] Berenice Resendez, SERVICE ADVOCATE CONTACT 800 [facility] May[address] Lai [facility] 134 [place] [address] documented as of this encounter Visit Diagnoses Not on filedocumented in this encounter Additional Health Concerns Assessment Noted Time A fall risk assessment has been complete d for the patient 04/08/2024 2:17 PM EDT A Body Mass Index follow-up plan has been documented for the patient 08/19/2022 9:30 AM EST documented as of this encounter Care Teams Editor In Chief Relationship Specialty Start Date End Date Flaquita Dorsey DO [address] [place] [address] PCP - General 12/14/21 Aliyah Valencia MD [address] [place] [place] [address] Referring Physician 03/10/21 Conrado Iqbal MD 800 [place] [address] Service Attending Cardiology 08/19/22 documented as of this encounter
--- OUTSIDE RECORDS SUMMARY | 2024-07-10 11:53 | XMS_ITS | Encounter Summary ---
Author Organization Healthcare Address [address] [place] [address] Care Team Providers Care Mental Health Aide Name Role Phone Aliyah Valencia MD Unavailable [phone] Flaquita Dorsey DO Primary Care Provider +- [phone] Conrado Iqbal MD Unavailable Encounter Details Date Type Department Care Team (Latest Contact Info) Description 03/18/2024 Travel Social History Tobacco Use Types Packs/Day [...] AM EST Office Visit [facility] [address] [address] [address] [place] [address] Penelope Carmona MD 800 [facility] [address]ick [address] [place] [address] 08/05/2024 9:30 AM EST Appointment [facility] 1 [address] [place] [address] 02/26/2025 9:30 AM EDT Appointment [facility] Radha Lai [facility] 800 [place] [address] 02/26/2025 10:30 AM EDT Office Visit [facility] 740 [facility], 2nd [place] [address] Berenice Resendez, CURRICULUM ASSISTANT 800 [facility] Mayra Lai [facility] 134 [place] [address] documented as of this encounter Visit Diagnoses Not on filedocumented in this encounter Additional Health Concerns Assessment Noted Time A fall risk assessment has been complete d for the patient 03/18/2024 2:25 PM EDT A Body Mass Index follow-up plan has been documented for the patient 08/19/2022 9:30 AM EST documented as of this encounter Care Teams Mental Health Aide Relationship Specialty Start Date End Date Flaquita Dorsey DO [address] [place] [address] PCP - General 12/14/21 Aliyah Valecnia MD [address] [place] [address] Referring Physician 03/10/21 Conrado Iqbal MD 800 [place] [address] Service Attending Cardiology 08/19/22 documented as of this encounter
--- OUTSIDE RECORDS SUMMARY | 2024-07-10 11:53 | XMS_ITS | Encounter Summary ---
Author Organization Healthcare Address [address] [id number] Care Team Providers Care Wire Coating Operator Metal Name Role Phone Aliyah Valencia MD Unavailable [phone] Flaquita Dorsey DO Primary Care Provider +- [phone] Conrado Iqbal MD Unavailable Encounter Details Date Type Department Care Team (Late st Contact Info) Description 05/17/2024 Orders Only External Location 800 [place] [address] Ray Gomez MD [address] [place] [address] Social History Tobacco Use Types [...] in a retirement (including now)? No 05/20/2024 Utilities Answer Date [...] Description 08/05/2024 8:00 AM EST Office Visit [facility] Gynecology [address] [place] [address] Penelope Carmona MD [address] [place] [address] 08/05/2024 9:30 AM EST Appointment [facility] 1 [address] [place] [address] 02/26/2025 9:30 AM EDT Appointment [facility] Radha Lai Building 800 [place] [address] 02/26/2025 10:30 AM EDT Office Visit [facility] Breast Care Center 7[address] [facility], 2nd [place] [address] Berenice Resendez D, RELEASE MANAGER 800 [facility] [address] [place] [address] documented as of this encounter Procedures Procedure [...] Flaquita Dorsey DO [address] [place] [address] PCP - General 12/14/21 Aliyah Valencia MD [address] [place] [address] Referring Physician 03/10/21 Conrado Iqbal MD [address] [place] [phone] Service Attending Cardiology 08/19/22 documented as of this encounter
--- OUTSIDE RECORDS SUMMARY | 2024-07-10 11:53 | XMS_ITS | Encounter Summary ---
Author Organization [facility] Address [address] [place] [address] Care Team Providers Care Wide Load Escort Name Role Phone Aliyah Valencia MD Unavailable [phone] Flaquita Dorsey DO Primary Care Provider [phone] Conrado Iqbal MD Unavailable Encounter Details Date Type Department Care Team (Late st Contact Info) Description 04/24/2024 Telephone [facility] [address] [place] [address] Miriam Meyer, PharmD Social History [...] Telephone Encounter - Miriam Meyer, PharmD - 04/24/2024 10:33 AM EDT [facility] Specialty Medication Follow Up Care Plan Daniela John is a 78 y.o. female assessed via phone for continuation of drug therapy Cyclophosphamide for diagnosis ovarian cancer. Chart Review Calcium, Morphine, Shellfish allergy, and Sulfacetamide Current Outpatient Medications Medication Instructions anastrozole (ARIMIDEX) 1 mg, Oral, Daily, Swallow whole with a drink of water. aspirin 81 mg, Oral, Daily biotin 1,000 mcg, Oral, Daily cyclophosphamide (CYTOXAN) 50 mg, Oral, Daily ergocalciferol (VITAMIN D-2) 50,000 Units, Oral, Weekly erythromycin (Romycin) 5 MG/GM ophthalmic ointment APPLY A SMALL AMOUNT TO AFFECTED EYE THREE TIMESDAILY Flaxseed, Linseed, (Flaxseed Oil) 1000 MG capsule Oral furosemide (LASIX) 20 mg, Oral, Daily gabapentin [...] Daily Synthroid 75 mcg, Oral, Every morning Patient Active Problem List Diagnosis Malignant neoplasm of left breast in female, estrogen receptor positive (CMS/HCC) Cervical cancer (CMS/HCC) Carcinoma of fallopian tube (CMS/HCC) Neuropathy Obesity (BMI 30-39.9) Osteopenia History of aromatase inhibitor therapy Vaginal bleeding Immunization History Administered Date(s) Administered Influenza, Unspecified 04/29/2020 Influenza, high-dose, quadrivalent 04/03/2018, 05/30/2019 Influenza, injectable, quadrivalent 09/08/2015, 06/04/2021 Influenza, injectable, quadrivalent, preservative free 08/12/2014 Influenza, trivalent, adjuvanted 05/26/2017 Moderna COVID-19 Vaccine (Game Technician) 12+ years 05/05/2021 Pfizer-BioNTech COVID-19 Vaccine (Purple Cap) 12+ 09/09/2020, 10/07/2020 Pneumococcal Conjugate PCV 13 08/12/2014 Pneumococcal Polysaccharide PPV23 09/08/2015 Selected lab results: Lab Results Component Value Date WBC 3.70 04/08/2024 HGB 13.0 04/08/2024 HCT 39.6 04/08/2024 PLT 148 (L) 04/08/2024 , Lab Results Component Value Date NA 139 04/08/2024 K 4.3 04/08/2024 CL 102 04/08/2024 CREATININE 0.86 04/08/2024 BUN 22 04/08/2024 GLUCOSE 88 04/08/2024 CALCIUM 9.9 04/08/2024 CO2 25 04/08/2024 , and Lab Results Component Value Date ALBUMIN 4.0 04/08/2024 PROT 6.9 12/28/2022 ALKPHOS 173 (H) 04/08/2024 ALT 148 (H) 04/08/2024 AST 91 (H) 04/08/2024 BILITOT 0.4 04/08/2024 Is this an infusion therapy? No Patient is treatment: experienced Is patient of child bearing potential? No Disease specific labs or assessments: see above Does patient have an active infection? None Drug Review Date of initiation: 03/2022 Is the patient taking concomitant therapy for this disease? Yes: Bevacizumab Drug assessment : is this the appropriate drug/dose/route/frequency/duration? Yes Drug utilization review Drug-disease precautions: No clinically significant issues identified Drug-drug interactions: No clinically significant issues identified Drug-patient precautions: No clinically significant issues identified Education and Counseling Medication specific education provided: Patient had no questions or concerns regarding her therapy at the time of the assessment. Monitoring Questions Patient reported outcomes: Do you feel comfortable administering your medication and following the treatment plan as prescribed? Yes If therapy is injectable, does patient require further injection training? N/A How would you rate your pain on average? (0 = no pain, 10 = worst pain imaginable) 0 On a scale from 1 to 10, with 10 being very well and 1 being very poor, how are you feeling overall? 7 PREVIOUS quality of life: 6 CURRENT patient management score: 5-Completely Satisfied PREVIOUS patient management score: 5-Completely Satisfied Patient Management Assessment scores must be reviewed by a clinician with each Care Plan. Scores of2 or lower must be documented in a Clinical Intervention Care Plan. Missed doses: Have you missed a dose in the last 4 weeks? No Patient reported response to therapy In regards to your condition, how are you feeling compared to the last time we spoke? Better Disease symptoms assessment Did the patient seek the following urgent care in the last 4 weeks? No Current adverse events/side effect the patient is experiencing: mild diarrhea and fatigue If patient is experiencing adverse event or side effect, was patient counseled on selected side effects? Deferred Care Plan Questions Goal(s) of therapy: Improving or maintaining quality of life, Slow or prevent progression of disease, and Minimize/manage side effects or toxicities Strategies to achieve goal(s) of therapy: Adhere to plan of care (drug therapy) and Share concerns about drug therapy or side effects with care team Does patient have any barriers to care? No Barriers to Care Identified Mitigation strategy for identified barriers: N/A Summary/Plan Pharmacist reviewed the plan of care in regards to specialty medication Cyclophosphamide for diagnosis ovarian cancer. Assessment: Patient is adherent to the plan of care and her overall QOL has increased since starting therapy. Patient states her diarrhea/fatigue are stable and do not impact her daily life significantly. Plan/Patient specific needs: N/A Patient/caregiver participated in the development and expressed [...] there is a need. Miriam Meyer PharmD 04/24/2024 10:34 AM documented in this encounter Plan of Treatment Upcoming Encounters Date Type Department Care Team (Late st Contact Info) Description 08/05/2024 8:00 AM EST Office Visit [facility] [address] [address] [address] [place] [address] Penelope Carmona MD 800 [facility] Mayra Lai [facility] [address] [place] [address] 08/05/2024 9:30 AM EST Appointment [facility] 1 [address] [place] [address] 02/26/2025 9:30 AM EDT Appointment [facility] [address] [facility] 800 [place] [address] 02/26/2025 10:30 AM EDT Office Visit [facility] 740 [facility], 2nd [place] [address] Berenice Resendez D, INSURANCE CLAIMS SUPERVISOR 800 [facility] [address] L[address] [place] [address] documented as of this encounter Visit Diagnoses Not on filedocumented in this encounter Additional Health Concerns Assessment Noted Time A fall risk assessment has been complete d for the patient 04/08/2024 2:17 PM EDT A Body Mass Index follow-up plan has been documented for the patient 08/19/2022 9:30 AM EST documented as of this encounter Care Teams Wide Load Escort Relationship Specialty Start Date End Date Flaquita Dorsey DO [address] [place] [address] PCP - General 12/14/21 Aliyah Valencia MD [address] [place] [address] Referring Physician 03/10/21 Conrado Iqbal MD [address] [place] [phone] Service Attending Cardiology 08/19/22 documented as of this encounter
--- OUTSIDE RECORDS SUMMARY | 2024-07-10 11:53 | XMS_ITS | Encounter Summary ---
Author Organization [facility] Address [address] [place], [place] [id number] Care Team Providers Care Rotary Furnace Tender Name Role Phone Aliyah Valencia MD Unavailable [phone] Flaquita Dorsey DO Primary Care Provider [phone] Conrado Iqbal MD Unavailable Encounter Details Date Type Department Care Team (Late st Contact Info) Description 03/19/2024 Telephone [facility] [address] [place] [address] Shy Mcgrath, PharmD [facility] [address] [place] [address] Social History Tobacco Use Types Packs/Day Years [...] encounter Miscellaneous Notes * Telephone Encounter - Syh Mcgrath, PharmD - 03/19/2024 12:32 PM EDT [facility] Plan of Care - [facility] Review Reviewed patient's current medication list for drug interaction with specialty medication: No interaction identified Adherence Summary: Issues identified - No clinical intervention needed; Why? has been holding med since 02/28/24. - liver enzymes were up - MD instructed her to now start back on 03/19/24. SHe has 10 pills on hand starting today. Adverse events/side effect summary: Experienced adverse events/side effects, Clinical Intervention Not Needed - Adverse event description: liver enzymes were elevated. MD was monitoring. Now cleared to restart. Storage, disposal, and administration summary: No issues identified Condition Summary: Stable Plan of care goal: Improving or maintaining quality of life, Slow or prevent progression of disease, and Minimize/manage side effects or toxicities Therapeutic Goal Summary: Patient is achieving progress toward goal Patients therapy is appropriate to: Continue Did the patient have any additional questions or needs to be coordinated with additional members ofthe care team (Physical therapy, Social Work, etc)? no Summary: Pharmacist reviewed the plan of care in regards to specialty medication Cyclophosphamide 50mg dailyfor diagnosis fallopian tube cancer. Assessment: Cyclophosphamide was held starting 02/27 for elevated liver enzymes. MD has cleared her to resume today. She has 10 doses on hand. [facility] will mail her a 30 day supply on Sunday 03/25. Plan/Patient specific needs: NA Patient/caregiver participated in the development and expressed [...] if there is a need. Shy Mcgrath, PharmD documented in this encounter Plan of Treatment Upcoming Encounters Date Type Department Care Team (Late st Contact Info) Description 08/05/2024 8:00 AM EST Office Visit [facility] [address] [place] [address] Penelope Carmona MD 800 [facility] [address] [place] [address] 08/05/2024 9:30 AM EST Appointment [facility] 1 [address] [place] [address] 02/26/2025 9:30 AM EDT Appointment [facility] [address] Building [address] [place] [address] 02/26/2025 10:30 AM EDT Office Visit [facility] 740 [facility], 2nd [place] [address] Berenice Resendez D, POWERBUILDER 800 [facility] [address] [place] [address] documented as of this encounter Visit Diagnoses Not on filedocumented in this encounter Additional Health Concerns Assessment Noted Time A fall risk assessment has been complete d for the patient 03/18/2024 2:25 PM EDT A Body Mass Index follow-up plan has been documented for the patient 08/19/2022 9:30 AM EST documented as of this encounter Care Teams Rotary Furnace Tender Relationship Specialty Start Date End Date Flaquita Dorsey DO [address] [place] [address] PCP - General 12/14/21 Aliyah Valencia MD [address] [place] [address] Referring Physician 03/10/21 Conrado Iqbal MD [address] [place] [address] Service Attending Cardiology 08/19/22 documented as of this encounter
--- OUTSIDE RECORDS SUMMARY | 2024-07-10 11:53 | XMS_ITS | Encounter Summary ---
Author Organization [facility] Address [facility] [place] [id number] Care Team Providers Care Research Administrator Name Role Phone Aliyah Valencia MD Unavailable [phone] Flaquita Dorsey DO Primary Care Provider [phone] Conrado Iqbal MD Unavailable Reason for Visit * Episode Based Medications (Routine) - Authorized Specialty Diagnoses / Procedures Referred By Contac t Referred To Contact Diagnoses Carcinoma of fallopian tube, unspecified laterality (CMS/HCC) Procedures Bevacizumab Every 21 Days Penelope Carmona MD [address] [address] Phone: tel: fax: [facility] [address] [place] [address] Phone: tel: Referral ID Status Reason Start Date Expiration Date V isits Requested Visits Authorized [id number] Authorized 03/13/2023 09/11/2024 1 26 Encounter Details Date Type Department Care Team (Latest Contact Info) Description 03/18/2024 1:30 PM EDT - 03/18/2024 11:59 PM EDT Hospital Encounter [facility] [address] [place] [address] Carcinoma of fallopian tube, unspecified [...] Sign Reading Time Taken Comments Blood Pressure 134/81 03/18/2024 2:25 PM EDT Pulse 75 03/18/2024 2:25 PM EDT Temperature 36.6 ??C (97.9 ??F) 03/18/2024 2:25 PM ED T Respiratory Rate 16 03/18/2024 2:25 PM EDT Oxygen Saturation 95% 03/18/2024 2:25 PM EDT Inhaled Oxygen Concentration - - Weight 75.3 kg (166 lb 0.1 oz) 03/18/2024 2:25 P M EDT Height 160 cm (5' 3 ) 03/18/2024 2:25 PM EDT Body Mass Index 29.41 03/18/2024 2:25 PM EDT documented in this encounter Medications at Time of Discharge aspirin 81 MG chewable tablet Chew 1 tablet (81 mg) 1 (one) time each day. ergocalciferol (Vitamin D-2) 1.25 MG (65155 UT) capsule Take 1 capsule (50,000 Units) [...] Gynecology [address] [place] [address] Penelope Carmona MD [address] [place] [address] 08/05/2024 9:30 AM EST Appointment [facility] [address] [place] [address] 02/26/2025 9:30 AM EDT [facility]ointment [facility] [address] [place] [address] 02/26/2025 10:30 AM EDT Office Visit [facility] [address] [place] [address] Berenice Resendez, [employer] CAD[employer] [address] [place] [address] documented as of this encounter Visit Diagnoses [...] Specific administration requirements refer to [id number]., On 03/18/24 at 1700, For 1 dose, NS 100 mLIndications:Carcinoma of fallopian tube, unspecified laterality (CMS/HCC) New Bag 03/18/2024 5:40 PM EDT 1,200 mg 356 mL/hr documented in this encounter Additional Health Concerns Assessment Noted Time A fall risk assessment has been complete d for the patient 03/18/2024 2:25 PM EDT A Body Mass Index follow-up plan has been documented for the patient 08/19/2022 9:30 AM EST documented as of this encounter Care Teams Research Administrator Relationship Specialty Start Date End Date Flaquita Dorsey DO [address] [place], [place] [id number] PCP - General 12/14/21 Aliyah Valencia MD [address] [place] [address] Referring Physician 03/10/21 Conrado Iqbal MD [address] [place] [address] Service Attending Cardiology 08/19/22 documented as of this encounter
--- OUTSIDE RECORDS SUMMARY | 2024-07-10 11:54 | XMS_ITS | Encounter Summary ---
Author Organization Healthcare Address [address] [employer], [place] [id number] Care Team Providers Care Fitness And Wellness Instructor Name Role Phone Aliyah Valencia MD Unavailable [phone] Flaquita Dorsey DO Primary Care Provider [phone] Conrado Iqbal MD Unavailable Encounter Details Date Type Department Care Team (Late st Contact Info) Description 02/22/2024 11:00 AM EDT Office Visit [facility] [address] [facility] [place] [address] Berenice Resendez D, SUPERINTENDENT MAINTENANCE 800 [facility] [address] [place] [address] Malignant neoplasm of left breast in female, estrogen receptor positive, unspecified site of breast (CMS/HCC) (Primary Dx); Encounter for screening mammogram for malignant neoplasm of breast Social History Tobacco Use Types Packs/Day Years [...] Sign Reading Time Taken Comments Blood Pressure 119/73 02/22/2024 10:41 AM EDT Pulse 84 02/22/2024 10:41 AM EDT Temperature 36.6 ??C (97.9 ??F) 02/22/2024 10:41 AM E DT Respiratory Rate - - Oxygen Saturation 95% 02/22/2024 10:41 AM EDT Inhaled Oxygen Concentration - - Weight 75.9 kg (167 lb 5.3 oz) 02/22/2024 10:41 AM EDT Height - - Body Mass Index 29.64 02/22/2024 9:44 AM EDT documented in this encounter Miscellaneous Notes * Progress Notes - Berenice Resendez, SUPERINTENDENT MAINTENANCE - 02/22/2024 11:00 AM EDT ONCOLOGY FOLLOW UP NOTE Patient Name: Daniela John Date of : 1945 Encounter date: 02/22/2024 Chief complaint: Daniela John is a 78 y.o. female who presents for scheduled medication monitoring and continuingoncology care. No breast cancer related complaints. Current Treatment Plan: Anastrozole History of Present Illness: Oncology History Overview Note Daniela John is [...] she underwent a left needle localized lumpectomy. Burke lymph node biopsy was not performed as [...] vagina). Initiated neoadjuvant chemo with carbo/Taxol per CLINICAL RN followed by BSO/Omentectomy and adjuvant Carbotaxol. Recurrence in March 2019. Treated with carbo initially followed by Olaparib. 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 She is currently off of therapy. She follows with Dr. Hutchins in [employer]/Onc. 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 Recurrence - First recurrence, [facility] sensitive - CT 04/10/19 with 3 cmlesion at cuff - Ca125 12 (from 8) - MTB discussion: recommend trial if progression on [place] regimen or consider Parp for RAD 51 [...] ccy for choledocolithiasis 2019 ([facility]) - Ca125: 30-0-0-7-7-9-8 - Started Parp inhibitor 09/2019 - Dose [...] concerning findings - Most recent Ca125 7.49 (37762) 06/30/2021 Recurrence - Third recurrence, [facility] sensitive - CT 06/30/2021 shows vaginal cuff [...] disease seen 04/11/2022 Recurrence - Fourth recurrence, [facility] resistant - CT 04/11/2022 with increase in [...] Stable vaginal cuff lesion, increasing adenopathy Interval History: She has no breast cancer or treatment related complaints today. She does have CLINICAL RN malignancy. Dr. Hutchins recommended she restart her anastrozole; thus she has done so. Tolerating it well. Remains onAvastin and Prolia as well for her CLINICAL RN malignancy. She denies arthralgias or myalgias. She denies nausea or vomiting. She has a DEXA scan performed on a regular basis with her gun tester outside of . ROS: A comprehensive 14 point ROS was elicited and was negative except as noted in HPI. Reviewed Past Medical History/Past Surgical History, Current Medications/Allergies, Family and Social History; unchanged from last clinic visit of 06/08/2020 or updated as indicated. Allergies and Adverse Drug Reactions: Calcium, Morphine, Shellfish allergy, and Sulfacetamide Medications: Current Outpatient Medications Medication Instructions anastrozole [...] simvastatin (ZOCOR) 40 mg, Oral, Nightly Synthroid 50 mcg, Oral, Daily Performance Status: 2: Ambulatory and capable of all self-care but unable to work. Up & about >50% waking hours Visit Vitals BP 119/73 Pulse 84 Temp 36.6 ??C (97.9 ??F) Wt 75.9 kg (167 lb 5.3 oz) LMP 11/17/1981 (Approximate) SpO2 95% BMI 29.64 kg/m?? OB Status Hysterectomy Smoking Status Former BSA 1.84 m?? Physical Examination: GENERAL: Obese female alert and in no acute distress. HEENT: PERRL,No scleral icterus, + injection. OP clear without lesions or exudates. Dentition fair NECK: Supple, without cervical or clavicular LA RESPIRATORY: Lungs CTA bilaterally with symmetrical chest expansion HEART: Regular rate and rhythm with 2/6 murmur heard best at the upper left sternal border BREAST: Bilateral breasts are examined in the supine position. No masses are palpated in either breast. No nipple discharge is noted. There is firmness at the left lumpectomy site. No axillary adenopathy is appreciated bilaterally. EXT: 1+ pitting ankle edema is present bilaterally. SKIN: No rashes. Multiple hyperkeratotic pigmented lesions of the skin. No bruising. NEURO: Alert, oriented. There are no focal deficits. PSYCH: Judgment and insight are unimpaired. Mood and affect appropriate IMAGING: Mammography Breast Screening Tomosynthesis Bilateral Result Date: 02/22/2024 FINDINGS: There are post-lumpectomy changes present in the left breast. There is no evidence of suspicious masses, calcifications, or other abnormal findings. Impression: No mammographic evidence of malignancy. BI-RADS CATEGORY: Overall: 2 - Benign Daniela John is a 78 y.o. 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) Staging form: Ovary, Fallopian Tube, and Primary Peritoneal Carcinoma, AJCC 8th Edition - Pathologic stage from 03/15/2018: FIGO Stage IIA, calculated as Stage Unknown (pT2a, pNX, cM0) - Signed by Penelope Carmona MD on 03/31/2021 Malignant neoplasm of left breast in female, estrogen receptor positive ([facility]) Staging form: Breast, AJCC 8th Edition - Pathologic stage from 05/28/2001: pT1c, pN0, cM0, G2, ER+, AK+, HER2: Unknown - Signed by Cara Greene MD on 06/19/2021 - Pathologic stage from 10/05/2016: Stage Unknown (rpT1c, pNX, cM0, G2, ER+, AK+, HER2-) - Signed by Cara Greene MD on 06/19/2021 Impression: 1. 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 History of osteopenia, T score - 0.9 -on prolia q 6 months 3. Poorly differentiated adenocarcinoma of Mullerian primary, recurrent 4. History of antineoplastic chemotherapy Plan: Ms. John continues in remission from locally recurrent left hormone receptor positive, HER2 negative breast cancer. Completed 5 years of hormone suppression therapy; however remains on anastrozoleper GYO recommendations and I agree with her continuing it. RTC in 1 year with me. Screening mammogram in 1 year. DEXA per PCP at [facility]. She continues to follow with mortgage loan specialist Oncology for poorly differentiated adenocarcinoma of Mullerian primary. As always, she is encouraged to contact our office at the number provided for any additional questions or concerns. She voiced understanding of the plan, asked appropriate questions, and all questions were answered to her satisfaction today. 40 minutes was spent on this encounter; including preparing to see the patient, which involved review/interpretation of diagnostics and reports; obtaining and/or reviewing separately obtained history; performing appropriate physical exam; ordering/scheduling medications, tests or procedures; communicating findings and counseling/educating the patient, family and/or caregiver; documentation in EMR; and care coordination. Berenice Resendez APRN Division of Medical Oncology [address] [place] [address] phone [phone] fax documented in this encounter Plan of Treatment Upcoming Encounters Date Type Department Care Team (Late st Contact Info) Description 08/05/2024 8:00 AM EST Office Visit [facility] [address] [place] [address] [address] [place] [address] Penelope Carmona MD [address] [facility] [address] [facility] [address] [place] [address] 08/05/2024 9:30 AM EST Appointment [facility] [address] [place] [address] 02/26/2025 9:30 AM EDT Appointment [facility] [place] [address] [facility] [address] [place] [address] 02/26/2025 10:30 AM EDT Office Visit [facility] [address] [facility] [place] [address] Berenice Resendez, SUPERINTENDENT MAINTENANCE [address] [facility] [address] [facility] [address] [place] [address] Scheduled Orders Name Type Priority Associated Diagnoses Orde r Schedule Mammography Breast Screening Tomosynthesis Bilateral Imaging Routine Malignant neoplasm of left breast in female, estrogen receptor positive, unspecified site of breast ([facility]) Encounter for screening mammogram for malignant neoplasm of breast Expected: 02/21/2025 (Approximate), Expires: 08/24/2025 documented as of this encounter Visit Diagnoses Diagnosis Malignant neoplasm of left breast in female, estrogen receptor positive, unspecified site of breast ([facility])- Primary Encounter for screening mammogram for malignant neoplasm of breast documented in this encounter Additional Health Concerns Assessment Noted Time A fall risk assessment has been complete d for the patient 02/22/2024 10:48 AM EDT A Body Mass Index follow-up plan has been documented for the patient 08/19/2022 9:30 AM EST documented as of this encounter Care Teams Fitness And Wellness Instructor Relationship Specialty Start Date End Date Flaquita Dorsey DO [address] [place] [address] PCP - General 12/14/21 Aliyah Valencia MD [address] [place] [address] Referring Physician 03/10/21 Conrado Iqbal MD [address] [place] [address] Service Attending Cardiology 08/19/22 documented as of this encounter
--- OUTSIDE RECORDS SUMMARY | 2024-07-10 11:54 | XMS_ITS | Encounter Summary ---
Author Organization Healthcare Address [facility] [place] [id number] Care Team Providers Care Master Tax Advisor Name Role Phone Aliyah Valencia MD Unavailable [phone] Flaquita Dorsey DO Primary Care Provider [phone] Conrado Iqbal MD Unavailable Reason for Visit * Reason Comments Chemotherapy * Episode Based Medications (Routine) - Authorized Specialty Diagnoses / Procedures Referred By Contshena t Referred To Contact Diagnoses Carcinoma of fallopian tube, unspecified laterality (CMS/HCC) Procedures Bevacizumab Every 21 Days Penelope Carmona MD [address] [facility] [address] [facility] [address] [place] [address] Phone: tel: fax: [facility] Infusion Clinic [address] [place] [address] Phone: tel: Referral ID Status Reason Start Date Expiration Date V isits Requested Visits Authorized [id number] Authorized 03/13/2023 09/11/2024 1 26 Encounter Details Date Type Department Care Team (Late st Contact Info) Description 02/26/2024 3:00 PM EDT Office Visit [facility] Gynecology [address] [address] [place] [address] Ely Oseguera APRN [address] [facility] [address] [place] [address] Carcinoma of fallopian tube, unspecified [...] Sign Reading Time Taken Comments Blood Pressure 100/58 02/26/2024 3:23 PM EDT Pulse 77 02/26/2024 3:23 PM EDT Temperature 36.2 ??C (97.1 ??F) 02/26/2024 3:23 PM ED T Respiratory Rate 18 02/26/2024 3:23 PM EDT Oxygen Saturation 96% 02/26/2024 3:23 PM EDT Inhaled Oxygen Concentration - - Weight 75.6 kg (166 lb 10.7 oz) 02/26/2024 3:23 PM EDT Height 160 cm (5' 3 ) 02/26/2024 3:23 PM EDT Body Mass Index 29.52 02/26/2024 3:23 PM EDT documented in this encounter Miscellaneous Notes * Progress Notes - Serena Xiong, PharmD - 02/26/2024 3:00 PM EDT Pharmacy Hematology/Oncology Treatment Plan Note [...] from 05/28/2001: pT1c, pN0, cM0, G2, ER+, NV+, HER2: Unknown - Signed by Cara Greene MD on 06/19/2021 - Pathologic stage from 10/05/2016: Stage Unknown (rpT1c, pNX, cM0, G2, ER+, NV+, HER2-) - Signed by Cara Greene MD on 06/19/2021 Study Patient: No Treatment Protocol: Bevacizumab IV every 21 days + continuous PO cytoxan Treatment Plan reviewed for: [x] Follow-Up Clinical Review Cycle 16 Day 1 [x] Follow-Up Clinical Review for Continuous Oral Therapy Interval History: Ms. John was seen by team in clinic. Continues to follow with Dr. Granda for endocrinology, ophthalmology, and a physician who specializes in thyroid eye diseases. Imaging demonstrates mild progression. Will continue with therapy and continue to monitor closely. LFTs elevated today after patient had already left clinic. Will contact patient and work counselor to hold cyclophosphamide. Dosing Wt: 84 kg Today's Wt: Wt Readings from Last 1 Encounters: 02/22/24 76.2 kg (168 lb) Dosing Ht: 160 cm Dosing BSA: 1.88 m2 Recent Labs: Lab Results Component Value Date WBC 4.12 12/27/2023 HGB 12.7 12/27/2023 HCT 38.0 12/27/2023 MCV 107 (H) 12/27/2023 PLT 166 12/27/2023 Lab Results Component Value Date GLUCOSE 92 01/15/2024 CALCIUM 9.5 01/15/2024 NA 139 01/15/2024 K 4.4 01/15/2024 CO2 24 01/15/2024 CL 103 01/15/2024 BUN 27 (H) 01/15/2024 CREATININE 0.92 01/15/2024 Lab Results Component Value Date ALT 38 (H) 01/15/2024 AST 33 01/15/2024 ALKPHOS 114 01/15/2024 BILITOT 0.4 01/15/2024 Lab Results Component Value Date NEUTROABS 2.83 12/27/2023 Lab Results Component Value Date MG 1.4 (L) 01/09/2023 No results found for: TSH Lab Results Component Value Date URINEPRO Negative 02/05/2024 Vitals: There were no vitals filed for this visit. Other Relevant Monitoring: None Treatment Plan: Cyclophosphamide [...] 01/15/24 Cycle 16: 02/05/24 Cycle 17: 02/26/24 Prior Chemotherapy History: hormone therapy for prior breast cancer carboplatin/paclitaxel Cycle 1: 04/11/18 Cycle 2: 05/02/18 Cycle 3: 05/23/18 Cycle 4: 08/01/18 Cycle 5: 08/22/18 Cycle 6: 09/12/18 Carboplatin q21d #1: 05/06/19 #2: 06/03/19 #3: 06/24/19 #4: 07/15/19 #5: 08/05/19 #6: 08/26/19 Olaparib continuous oral therapy 09/2019 - 01/2020 (dose reduced and then d/c'd d/t fatigue/anemia Carboplatin #1: 08/04/21 - th lifetime dose #2: 08/27/21 #3: 09/15/21 #4: 10/06/21 #5: 10/27/21 - lifetime dose carboplatin #6: 11/17/21 Bevacizumab/oral Cyclophosphamide #1: 04/25/22 #2: 05/16/22 #3: 06/06/22 #4: 07/20/22 #5: 08/10/22 Assessment/Plan: Cytoxan Rx prescribed to: [facility] Refills will be due: 03/2024 Patient will return to clinic in 3 weeks. Will follow-up at that time. Serena Xiong PharmD, [facility] Hematology/Oncology Clinical Pharmacist * Progress Notes - Ely Camilo APRN - 02/26/2024 3:00 PM EDT Primary Care Provider: Flaquita Dorsey DO History of Present Illness: Chief complaint: 78 yo female here for clearance for and administration of Bevacizumab for recurrent fallopian tube cancer and to review CT result from 01/30/2024. Oncologic history is as follows: Oncology History [...] were negative for metastatic disease. ER and NV were strongly positive and HER-2 was negative. [...] ER positive in 90% of the cells, NV positive in 95% of cells andHER-2 negative by IHC at 0. On 10/04/2016 she underwent a left needle localized lumpectomy. [place] lymph node biopsy was not performed as [...] vagina). Initiated neoadjuvant chemo with carbo/Taxol per OBSTETRICAL TECH followed by BSO/Omentectomy and adjuvant Carbotaxol. Recurrence in March 2019. Treated with carbo initially followed by Olaparib. 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 She is currently off of therapy. She follows with Dr. Hutchins in [employer] [facility]Onc. 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 Recurrence - First recurrence, [place] sensitive - CT 04/10/19 with 3 cmlesion at cuff - Ca125 12 (from 8) - MTB discussion: recommend trial if progression on [place] regimen or consider Parp for RAD 51 [...] - Required lap ccy for choledocolithiasis 2019 ([facility]) - Ca125: 78-6-0-7-7-9-8 - Started Parp inhibitor 09/2019 - Dose [...] concerning findings - Most recent Ca125 7.49 (96320) 06/30/2021 Recurrence - Third recurrence, [place] sensitive - CT 06/30/2021 shows vaginal cuff [...] disease seen 04/11/2022 Recurrence - Fourth recurrence, [place] resistant - CT 04/11/2022 with increase in [...] Chemotherapy - Avastin started 03/20/2023 - Ca125 7.38-7.51-6.5-6.71-6.26-6.58-6.94-6.72-6.86-8.12-9.55-11.5-11.5-10.7 - CT 06/16/2023: Stable to decreased size of vaginal cuff disease, no other new findings - CT 10/18/2023: Stable vaginal cuff lesion, increasing retroperitoneal adenopathy - CT 01/30/2024: Stable vaginal cuff lesion, increasing adenopathy Interval updates to history: Oncologic treatment history as described above reviewed today as well as PMH/PSH/Meds/All/SH/FH, with updates made as appropriate. Patient is here today for cycle [address] acquired and may show some slight progression of adenopathy. Doing well. No GRAJEDA. No syncope spells. Appetite ok. 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 Eating and drinking ok. She ishaving intermittent diarrhea and constipation, this is normal for her. She has started anastrozole and is doing well. PMH: h/o breast cancer x2, ?cervical cancer, [...] years ago, no drugs, retired, lives in [place]. FamHx: Father-prostate, MGma-colon. ROS: 14 pt ROS performed with pertinent positives and negatives as noted in HPI. ROS otherwise negative Objective Physical Exam: Vital Signs for this encounter: BSA: 1.83 meters squared Visit Vitals BP 100/58 Pulse 77 Temp 36.2 ??C (97.1 ??F) (Temporal) Resp 18 Ht 1.6 m (5' 3 ) Wt 75.6 kg (166 lb 10.7 oz) LMP 11/17/1981 (Approximate) SpO2 96% BMI 29.52 kg/m?? OB Status Hysterectomy Smoking Status Former [...] Status: Asymptomatic PS= 0 Results: CBC WBC 4.12 Hgb 12.7 PLT 166 HCT 38.0 Lab Results Component Value Date NEUTROABS 2.83 12/27/2023 BASIC METABOLIC PANEL Na 139 Cl 103 BUN 27 Gluc 92 K 4.4 Co2 24 Creat 0.92 LIVER FUNCTION TESTING Tot Prot 6.7 AST 33 Tot bili 0.4 ALT 38 Alkphos 114 Ca 9.5 Mg No results found for requested labs [...] 01/30/2024 7:25 AM Final report signed by Calrene Aponte MD on 01/30/2024 7:52 AM Assessment/Plan Problem 1: Recurrent serous fallopian tube cancer (right) Assessment and plan 1: - s/p chemo/debulking at initial diagnosis - Has had additional chemo for recurrence followed by radiation for additional recurrence - Now [place] resistant - Started Dana/oral Cytoxan, held Dana after cycle 4 due to Chest pain - CT after 4 cycles showed interval resolution of vaginal mass and no further disease. - At visit 08/2022: Patient had additional CP episode and heart cath subsequently performed. No severe disease noted and brain wave technician reports ok to continue Dana. However, also [...] Dana. - Continued oral Cytoxan - CT 11/02/2022 JAR[address]. - CT 03/13/2023 consistent with recurrence at vaginal cuff and with suspicious lymph node. This is corroborated with bleeding symptoms - Discussed options and would like to try adding back Dana as first line. Will add Dana back and continue oral Cytoxan. - CT after cycle 4 06/16/2023 with stable to improved disease at cuff. - CT after cycle 10 10/17/2022: Stable vaginal lesion, possible evolving adenopathy although mild atthis time. Patient tolerating this regimen well so will continue with repeat CT in 3-4 cycles to assess stability - CT after 15 cycles 01/30/2024: some adenopathy progression. Reviewed images and agree with findings. Discussed with patient. Discussed that could consider change of therapy plan but progression is mild and other options have more significant toxicity. Could continue current regimen until progression more profound. Discussed at length at last visit and she elects to continue Dana/Cytoxan - Cycle 17 of Dana today. Continue Cytoxan. Cyclic Ca125 monitoring with imaging q 3-4 cycles. Problem 2: Encounter for chemotherapy Assessment and plan 2: - Proceed with cycle 17 of Bevacizumab 15 mg/kg today. Plan q 21 cycles until intolerance or progression. No dose limiting toxicities identified. Pre chemo labs reviewed. Continue intensive hematologic monitoring (CBC with diff, CMP). Also continue cyclic Ca125 tumor marker monitoring. Reviewed side effects to monitor for. - Continue oral Cytoxan Problem 3: Vaginal bleeding Assessment and plan 3: - Likely due to mass at cuff - Bleeding resolved after starting Dana/Cytoxan first verena - Bleeding recurred with recurrence of mass at cuff - Light still but slightly increased in past few months. Monitor. Problem 4: History of left breast [...] cards at - Seen by cardiology at [facility] and acute workup negative but [...] April 2023 - ED workup negative for [place] - No further episodes since last cycle - Continue to monitor closely Problem 7: Intermittent diarrhea Assessment and plan 7: - Unlikely relation to Cytoxan given timing/drug profile - Offered colonoscopy/GI referral but declines for now - Monitor Problem 8: transaminitis Assessment and plan 8: [...] likelihood that elevation is related to Cytoxan. Continue to monitor weekly labs. Continue unless persistence trend ofcontinued elevation. 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 Summary of time spent in team based care today includes the following activities performed by myself: review of prior documentation in preparation for visit, review of images and imaging report, review of labs and any other test results, obtaining and reviewing medical history, appropriate focused physical exam, discussion of exam and/or test results, discussion of plan of care, lab orders, phlebotomy, and documentation. Total encounter time 40 min. Ely Camilo APRN documented in this encounter Plan of Treatment Upcoming Encounters Date Type Department Care Team (Late st Contact Info) Description 08/05/2024 8:00 AM EST Office Visit [facility] Gynecology [address] [facility] [address] [place] [address] Penelope Carmona MD [address] [facility] [address] [facility] [address] [place] [address] 08/05/2024 9:30 AM EST Appointment [facility] Infusion Clinic [address] [place] [address] 02/26/2025 9:30 AM EDT Appointment [facility] Breast Care Center [facility] [address] [facility] [address] [place] [address] 02/26/2025 10:30 AM EDT Office Visit [facility] Breast Care [place] [address] [facility] [place] [address] Berenice Resendez, SKILLED NURSING CASE MANAGER [address] [facility] [address] [facility] [address] [place] [address] documented as of this encounter Procedures Procedure Name Priority Date/Time Associated Diagnosis Comments CBC WITH AUTO DIFFERENTIAL Routine 02/26/2024 3:37 PM EDT Carcinoma of fallopian tube, unspecified laterality (CMS/HCC) CA 125 Routine 02/26/2024 3:37 PM EDT Carcinoma of fallopian tube, unspecified laterality (CMS/HCC) COMPREHENSIVE METABOLIC PANEL, PLASMA Routine 02/26/2024 3:37 PM EDT Carcinoma of fallopian tube, unspecified laterality (CMS/HCC) documented in this encounter Results * CA 125 (02/26/2024 3:37 PM EDT) CA 125 9.98 <=38.00 U/mL 02/26/2024 4:46 PM EDT [facility] Blood Blood sample taken from central line / Unknown (Port) Long-term Catheter / Unknown 02/26/2024 3:37 PM EDT 02/26/2024 4:07 PM EDT Narrative [facility] - 02/26/2024 4:46 PM EDT Performed by Stephie electrochemiluminescent immunoassay. Results obtained with different test methods or kits cannot be used interchangeably. us Penelope Dodson MD LAB BLOOD ORDERABLES Final Result [facility] [address] [place] [id number] * (ABNORMAL) Comprehensive metabolic panel (02/26/2024 3:37 PM EDT) Glucose, Plasma 92 74 - 99 mg/dL 02/26/2024 4:39 PM EDT [facility] BUN, Plasma 27(H) 8 - 23 mg/dL 02/26/2024 4:39 PM EDT [facility] Creatinine, Plasma 0.89 0.60 - 1.10 mg/dL 02/26/2024 4:39 PM EDT [facility] BUN/Creatinine Ratio 30 02/26/2024 4:39 PM EDT [facility] Sodium, Plasma 136 136 - 145 mmol/L 02/26/2024 4:39 PM EDT [facility] Potassium, Plasma 4.1 3.7 - 4.8 mmol/L 02/26/2024 4:39 PM EDT [facility] Chloride, Plasma 102 97 - 107 mmol/L 02/26/2024 4:39 PM EDT [facility] CO2, Plasma 24 22 - 29 mmol/L 02/26/2024 4:39 PM EDT [facility] Anion Gap 10 6 - 16 mmol/L 02/26/2024 4:39 PM EDT [facility] Total Calcium, Plasma 10.0 8.9 - 10.2 mg/dL 02/26/2024 4:39 PM EDT [facility] Total Protein 6.7 6.3 - 7.9 g/dL 02/26/2024 4:39 PM EDT [facility] Albumin, Plasma 3.7 3.5 - 5.2 g/dL 02/26/2024 4:39 PM EDT [facility] AST, Plasma 65(H) 10 - 35 U/L 02/26/2024 4:39 PM EDT [facility] ALT, Plasma 95(H) 10 - 35 U/L 02/26/2024 4:39 PM EDT [facility] Alkaline Phosphatase, Plasma 210(H) 46 - 142 U/L 02/26/2024 4:39 PM EDT [facility] Total Bilirubin, Plasma 0.5 0.2 - 1.1 mg/dL 02/26/2024 4:39 PM EDT [facility] eGFRcr 66.5 mL/min/1.7 3m*2 02/26/2024 4:39 PM EDT [facility] Comment:Reported eGFRcr in m L/min/1.73m2 is based the CKD-EPI 2020 equation that does not use a race coefficient. Blood Blood sample taken from central line / Unknown (Port) Long-term Catheter / Unknown 02/26/2024 3:37 PM EDT 02/26/2024 4:07 PM EDT us Penelope Dodson MD LAB BLOOD ORDERABLES Final Result Performing Organization Address City/State/[facility] Co de Phone Number [facility] [address] [place] [phone] * (ABNORMAL) CBC and differential (02/26/2024 3:37 PM EDT) WBC Count 3.60(L) 3.70 - 10.30 10*3/uL LAB HEMATOLOGY METHOD 02/26/2024 4:03 PM EDT [facility] RBC Count 3.58(L) 3.90 - 5.20 10*6/uL LAB HEMATOLOGY METHOD 02/26/2024 4:03 PM EDT [facility] HGB 12.7 11.2 - 15.7 g/dL LAB HEMATOLOGY METHOD 02/26/2024 4:03 PM EDT [facility] HCT 38.2 34.0 - 45.0 % LAB HEMATOLOGY METHOD 02/26/2024 4:03 PM EDT [facility] Platelet Count 165 155 - 369 10*3/uL LAB HEMATOLOGY METHOD 02/26/2024 4:03 PM EDT [facility] MCV 107(H) 79 - 98 fL LAB HEMATOLOGY METHOD 02/26/2024 4:03 PM EDT [facility] MCH 35.5(H) 26.0 - 32.0 pg LAB HEMATOLOGY METHOD 02/26/2024 4:03 PM EDT [facility] MCHC 33.2 30.7 - 35.5 g/dL LAB HEMATOLOGY METHOD 02/26/2024 4:03 PM EDT [facility] RDW 15.4(H) 11.5 - 14.5 % LAB HEMATOLOGY METHOD 02/26/2024 4:03 PM EDT [facility] MPV 9.6 8.8 - 12.5 fL LAB HEMATOLOGY METHOD 02/26/2024 4:03 PM EDT [facility] nRBC 0.0 <=0.0 per 100 WBCs LAB HEMATOLOGY METHOD 02/26/2024 4:03 PM EDT [facility] Differential Type Automated LAB HEMATOLOGY METHOD 02/26/2024 4:03 PM EDT [facility] Neutrophils % 66.0 % LAB HEMATOLOGY METHOD 02/26/2024 4:03 PM EDT [facility] Lymphocytes % 17.0 % LAB HEMATOLOGY METHOD 02/26/2024 4:03 PM EDT [facility] Monocytes % 9.0 % LAB HEMATOLOGY METHOD 02/26/2024 4:03 PM EDT [facility] Eosinophils % 6.0 % LAB HEMATOLOGY METHOD 02/26/2024 4:03 PM EDT [facility] Basophils % 1.0 % LAB HEMATOLOGY METHOD 02/26/2024 4:03 PM EDT [facility] Immature Granulocytes % 1.0 % LAB HEMATOLOGY METHOD 02/26/2024 4:03 PM EDT [facility] Neutrophils Absolute 2.40 1.60 - 6.10 10*3/uL LAB HEMATOLOGY METHOD 02/26/2024 4:03 PM EDT [facility] Lymphocytes Absolute 0.62(L) 1.20 - 3.90 10*3/uL LAB HEMATOLOGY METHOD 02/26/2024 4:03 PM EDT [facility] Monocytes Absolute 0.32 0.30 - 0.90 10*3/uL LAB HEMATOLOGY METHOD 02/26/2024 4:03 PM EDT [facility] Eosinophils Absolute 0.20 0.00 - 0.50 10*3/uL LAB HEMATOLOGY METHOD 02/26/2024 4:03 PM EDT [facility] Basophils Absolute 0.04 0.00 - 0.10 10*3/uL LAB HEMATOLOGY METHOD 02/26/2024 4:03 PM EDT [facility] Immature Granulocytes Absolute 0.02 0.00 - 0.06 10*3/uL LAB HEMATOLOGY METHOD 02/26/2024 4:03 PM EDT [facility] Blood Blood sample taken from central line / Unknown (Port) Long-term Catheter / Unknown 02/26/2024 3:37 PM EDT 02/26/2024 4:01 PM EDT Narrative [facility] - 02/26/2024 4:03 PM EDT Therapeutic decision making should be based on absolute values, rather than percentages. Penelope Dodson MD LAB BLOOD ORDERABLES Final Result [facility] [address] [place] [address] documented in this encounter Visit Diagnoses Diagnosis Carcinoma of fallopian tube, unspecified laterality (CMS/HCC)- Primary documented in this encounter Additional Health Concerns Assessment Noted Time A fall risk assessment has been complete d for the patient 02/26/2024 4:14 PM EDT A Body Mass Index follow-up plan has been documented for the patient 08/19/2022 9:30 AM EST documented as of this encounter Care Teams Master Tax Advisor Relationship Specialty Start Date End Date Flaquita Dorsey DO [address] [place] [address] PCP - General 12/14/21 Aliyah Valencia MD [address] [place], [place] [id number] Referring Physician 03/10/21 Conrado Iqbal MD [address] [place] [address] Service Attending Cardiology 08/19/22 documented as of this encounter
--- OUTSIDE RECORDS SUMMARY | 2024-07-10 11:54 | XMS_ITS | Encounter Summary ---
Author Organization Healthcare Address [address] [place], [place] [id number] Care Team Providers Care Hand Scudder Name Role Phone Aliyah Valencia MD Unavailable [phone] Flaquita Dorsey DO Primary Care Provider +- [phone] Conrado Iqbal MD Unavailable Encounter Details Date Type Department Care Team (Latest Contact Info) Description 01/15/2024 Travel Social History Tobacco Use Types Packs/Day Years Used Date Smoking Tobacco: Former Cigarettes 0.5 22 1 976 - 1998 Passive Smoke Exposure: Past Smokeless Tobacco: Former Alcohol Use Standard Drinks/Week Comments Not Currently 0 (1 standard drink = 0.6 oz pur e alcohol) PHQ-2 Answer Date Recorded Patient Health Questionnaire-2 Score 0 01/15/2024 PHQ-2A Answer Date Recorded Patient Health Questionnaire-2 [...] AM EST Office Visit [facility] [address] [address] [address] [place] [address] Penelope Carmona MD [address] [facility] [address] [place] [address] 08/05/2024 9:30 AM EST Appointment [facility] Infusion [facility] 1 [address] [place] [address] 02/26/2025 9:30 AM EDT Appointment [facility] [address] [facility] [address] [place] [address] 02/26/2025 10:30 AM EDT Office Visit [facility] [address] [facility] [place] [phone] Berenice Resendez, EMPLOYEE DEVELOPMENT DIRECTOR [address] [facility] [address] [facility] [address] [place] [address] documented as of this encounter Visit Diagnoses Not on filedocumented in this encounter Additional Health Concerns Assessment Noted Time A fall risk assessment has been complete d for the patient 01/15/2024 4:21 PM EDT A Body Mass Index follow-up plan has been documented for the patient 08/19/2022 9:30 AM EST documented as of this encounter Care Teams Hand Scudder Relationship Specialty Start Date End Date Flaquita Dorsey DO [address] [place] [address] PCP - General 12/14/21 Aliyah Valencia MD [address] [place] [address] Referring Physician 03/10/21 Conrado Iqbal MD [address] [place] [address] Service Attending Cardiology 08/19/22 documented as of this encounter
--- OUTSIDE RECORDS SUMMARY | 2024-07-10 11:54 | XMS_ITS | Encounter Summary ---
Author Organization [facility] [place] Address [address] [place], [place] [id number] Care Team Providers Care Cook Frozen Dessert Name Role Phone Aliyah Valencia MD Unavailable [phone] Flaquita Dorsey DO Primary Care Provider [phone] Conrado Iqbal MD Unavailable Reason for Referral * Imaging (Routine) - Closed Specialty Diagnoses / Procedures Referred By Contac t Referred To Contact Radiology Diagnoses Carcinoma of fallopian tube, unspecified laterality (CMS/HCC) Procedures CT Abdomen Pelvis w IV Contrast Penelope Carmona MD [address] [address] Phone: tel: fax: Referral ID Status Reason Start Date Expiration Date Visits Re quested Visits Authorized [id number] Closed 01/15/2024 07/16/2025 1 1 * Imaging (Routine) - Closed Specialty Diagnoses / Procedures Referred By Contac t Referred To Contact Radiology Diagnoses Carcinoma of fallopian tube, unspecified laterality (CMS/HCC) Procedures CT Chest w IV Contrast Penelope Carmona MD [address] [address] Phone: tel: fax: Referral ID Status Reason Start Date Expiration Date Visits Re quested Visits Authorized [id number] Closed 01/15/2024 07/16/2025 1 1 Encounter Details Date Type Department Care Team (Late Contact Info) Description 01/15/2024 Orders Only [facility] [address] [place] [address] Penelope Carmona MD 800 [facility] [address] [address] Carcinoma of fallopian tube, unspecified [...] [facility] [address] [place] [address] Penelope Carmona MD 800 [facility] [address] [address] 08/05/2024 9:30 AM EST Appointment [facility] 1 [address] [place] [address] 02/26/2025 9:30 AM EDT Appointment [facility] [address] [facility] [address] [place] [address] 02/26/2025 10:30 AM EDT Office Visit [facility] [address] [place] [address] Berenice Resendez, SPRING TACKER [address] [place] [address] documented as of this encounter Results * CT Abdomen Pelvis w IV Contrast (01/29/2024 4:35 PM EDT) Anatomical Region Laterality Modality Abdomen, Pelvis Computed Tomogra phy Impressions 01/30/2024 7:52 AM EDT Chest: No evidence of disease progression. Abdomen/Pelvis: Stable lesion of the vaginal cuff. Stable to increasing retroperitoneal and pelvic lymphadenopathy when compared to examination from 10/17/2023, detailed above. CRITICAL RESULT: ?? No. COMMUNICATION: Per this written report. Drafted by Carlene Aponte MD on 01/30/2024 7:25 AM Final report signed by Carlene Aponte MD on 01/30/2024 7:52 AM Narrative 01/30/2024 7:52 AM EDT CLINICAL INDICATION: Genital cancer, monitor TECHNIQUE: Multiple [...] nodule (series 4 image 95). There are a few scattered sub-5 mm pulmonary nodules in both lungs which are also unchanged from prior exam. No sizable pulmonary nodules to suggest metastatic disease. No [...] gland myolipoma measures 1.5 cm, unchanged from prior exam (series 4 image 79). There is a [...] body wall lesions. No suspicious bony findings. Procedure Note Carlene Aponte MD - 01/30/2024 CLINICAL INDICATION: Genital cancer, monitor TECHNIQUE: Multiple axial CT images were obtained from thoracic inlet through pubicsymphysis following administration of IV contrast, Omnipaque 300, 100 mL.Reformatted images of the abdomen and pelvis in the coronal and sagittalplanes were generated from the axial data set to facilitate diagnosticaccuracy. Total DLP (Dose-Length Product): 623.87 mGy.cm. Please note: The reportedvalue represents the total of one or more individual components during theCT acquisition on this date and at this time, and as such, the same valuemay appear in more than one CT report depending on theinterpreting/reporting physicians. COMPARISON: CT chest, abdomen, pelvis from 10/17/2023, CT abdomen/pelvis from06/16/2023. FINDINGS: Chest: Lymph Nodes and Mediastinum: No lymphadenopathy by CT size criteria. Nomediastinal mass lesions. Morphologically unchanged thyroid with smallcalcifications in the left thyroid lobe. Cardiovascular: The heart is normal in caliber. Thoracic great vessels arepatent. Right approach port terminates at the superior cavoatrialjunction. Mild coronary artery calcifications. Lungs and Pleura: Unchanged right upper lobe 5 mm pulmonary nodule (series4 image 95). There are a few scattered sub-5 mm pulmonary nodules in bothlungs which are also unchanged from prior exam. No sizable pulmonarynodules to suggest metastatic disease. No pleural effusions or suspiciousthickening. Musculoskeletal and Body Wall: No clearly aggressive bone lesions.Postprocedural change in the left breast, unchanged. No suspicious bodywall findings. Abdomen/Pelvis: Solid Abdominal Organs: A subcentimeter low-attenuation lesion in theliver adjacent to the falciform ligament is too small to characterize onCT but is unchanged from prior exam. No suspicious hepatic lesion. Thegallbladder is surgically absent and there is post cholecystectomy ectasiaof the extrahepatic bile duct and central intrahepatic bile ducts. A 2.0cm right adrenal gland nodule is unchanged from prior exam, with smallchange in size likely associated with change in positioning or sliceselection (series 4 image 63). 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 There is a 1.2 cmperipherally enhancing nodule at the superior pole of the right kidneywhich is morphologically unchanged from prior exam (series 4 image 78).Otherwise, the kidneys are unremarkable, without hydronephrosis orcalculi. Pancreas is unremarkable. Spleen is nonenlarged. GI Tract/Mesentery/Peritoneum: Stomach is unremarkable. Small and largebowel maintain normal caliber and contour, without wall thickening orevidence of obstruction. A few loops of nonobstructed small bowel enterinto a ventral abdominal hernia measuring 5.3 cm at the widest separation(series 4 image 154). No suspicious mesenteric or peritoneal findings. Pelvic Viscera: Mild circumferential thickening of the urinary bladderwalls, which may be associated with underdistention. There is a lesion ofthe vaginal cuff which is unchanged in size and morphology as compared tomost recent prior examination on 10/17/2023 but which measures 3.7 x 1.9cm, decreased size when compared to examination on 06/16/2023. Nosuspicious pelvic mass. Lymph Nodes/Vasculature: There are multiple stable to enlargingretroperitoneal and pelvic lymph nodes. Index nodes include: *An aortocaval node just proximal to the bifurcation, measuring 1.5 cm(previously 0.3 cm, series 4 image 147). *A left para-aortic lymph node measuring 1.2 cm (previouslyimperceptible, series 4 image 127). *A left common iliac node measuring 1.2 cm (previously 0.6 cm, series 4image 173). *A right common iliac node measures 1.1 cm (previously 0.5 cm, series 4image 180). *A retrocaval lymph node is unchanged, measuring 1.1 cm, series 4 inbdn079). *A right external iliac lymph node measures 0.9 cm (previously 0.9 cm,series 4 image 237). *A left external iliac lymph node measures 1.2 cm (previously 1.2 cm,series 4 image 238) *A right inguinal lymph node measures 1.1 cm (previously 1.1 cm, series 4image 254). *A left inguinal lymph node measures 1.1 cm (previously 0.8 cm, series 4image 262). Aorta and IVC maintain normal caliber and contour, with mild to moderatecalcified atherosclerotic plaque within the abdominal aorta. The portalvein, SMV, and splenic vein are patent. Hepatic veins are patent. Free Fluid:No free fluid. Musculoskeletal and Body Wall: Stable appearance of the ventral abdominalwall hernia containing nonobstructed small bowel and fat. No suspiciousbody wall lesions. No suspicious bony findings. IMPRESSION: Chest: No evidence of disease progression. Abdomen/Pelvis: Stable lesion of the vaginal cuff. Stable to increasing retroperitoneal and pelvic lymphadenopathy whencompared to examination from 10/17/2023, detailed above. CRITICAL RESULT: No. COMMUNICATION: Per this written report. Drafted by Carlene Aponte MD on 01/30/2024 7:25 AM Final report signed by Carlene Aponte MD on 01/30/2024 7:52 AM us Penelope Dodson MD IMG CT PROCEDURES Fin al Result * CT Chest w IV Contrast (01/29/2024 4:35 PM EDT) Anatomical Region Laterality Modality Chest Computed Tomogra phy Impressions 01/30/2024 7:52 AM EDT Chest: No evidence of disease progression. Abdomen/Pelvis: Stable lesion of the vaginal cuff. Stable to increasing retroperitoneal and pelvic lymphadenopathy when compared to examination from 10/17/2023, detailed above. CRITICAL RESULT: ?? No. COMMUNICATION: Per this written report. Drafted by Carlene Aponte MD on 01/30/2024 7:25 AM Final report signed by Carlene Aponte MD on 01/30/2024 7:52 AM Narrative 01/30/2024 7:52 AM EDT CLINICAL INDICATION: Genital cancer, monitor TECHNIQUE: Multiple [...] nodule (series 4 image 95). There are a few scattered sub-5 mm pulmonary nodules in both lungs which are also unchanged from prior exam. No sizable pulmonary nodules to suggest metastatic disease. No [...] gland myolipoma measures 1.5 cm, unchanged from prior exam (series 4 image 79). There is a [...] body wall lesions. No suspicious bony findings. Procedure Note Carlene Aponte MD - 01/30/2024 CLINICAL INDICATION: Genital cancer, monitor TECHNIQUE: Multiple axial CT images were obtained from thoracic inlet through pubicsymphysis following administration of IV contrast, Omnipaque 300, 100 mL.Reformatted images of the abdomen and pelvis in the coronal and sagittalplanes were generated from the axial data set to facilitate diagnosticaccuracy. Total DLP (Dose-Length Product): 623.87 mGy.cm. Please note: The reportedvalue represents the total of one or more individual components during theCT acquisition on this date and at this time, and as such, the same valuemay appear in more than one CT report depending on theinterpreting/reporting physicians. COMPARISON: CT chest, abdomen, pelvis from 10/17/2023, CT abdomen/pelvis from06/16/2023. FINDINGS: Chest: Lymph Nodes and Mediastinum: No lymphadenopathy by CT size criteria. Nomediastinal mass lesions. Morphologically unchanged thyroid with smallcalcifications in the left thyroid lobe. Cardiovascular: The heart is normal in caliber. Thoracic great vessels arepatent. Right approach port terminates at the superior cavoatrialjunction. Mild coronary artery calcifications. Lungs and Pleura: Unchanged right upper lobe 5 mm pulmonary nodule (series4 image 95). There are a few scattered sub-5 mm pulmonary nodules in bothlungs which are also unchanged from prior exam. No sizable pulmonarynodules to suggest metastatic disease. No pleural effusions or suspiciousthickening. Musculoskeletal and Body Wall: No clearly aggressive bone lesions.Postprocedural change in the left breast, unchanged. No suspicious bodywall findings. Abdomen/Pelvis: Solid Abdominal Organs: A subcentimeter low-attenuation lesion in theliver adjacent to the falciform ligament is too small to characterize onCT but is unchanged from prior exam. No suspicious hepatic lesion. Thegallbladder is surgically absent and there is post cholecystectomy ectasiaof the extrahepatic bile duct and central intrahepatic bile ducts. A 2.0cm right adrenal gland nodule is unchanged from prior exam, with smallchange in size likely associated with change in positioning or sliceselection (series 4 image 63). 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 There is a 1.2 cmperipherally enhancing nodule at the superior pole of the right kidneywhich is morphologically unchanged from prior exam (series 4 image 78).Otherwise, the kidneys are unremarkable, without hydronephrosis orcalculi. Pancreas is unremarkable. Spleen is nonenlarged. GI Tract/Mesentery/Peritoneum: Stomach is unremarkable. Small and largebowel maintain normal caliber and contour, without wall thickening orevidence of obstruction. A few loops of nonobstructed small bowel enterinto a ventral abdominal hernia measuring 5.3 cm at the widest separation(series 4 image 154). No suspicious mesenteric or peritoneal findings. Pelvic Viscera: Mild circumferential thickening of the urinary bladderwalls, which may be associated with underdistention. There is a lesion ofthe vaginal cuff which is unchanged in size and morphology as compared tomost recent prior examination on 10/17/2023 but which measures 3.7 x 1.9cm, decreased size when compared to examination on 06/16/2023. Nosuspicious pelvic mass. Lymph Nodes/Vasculature: There are multiple stable to enlargingretroperitoneal and pelvic lymph nodes. Index nodes include: *An aortocaval node just proximal to the bifurcation, measuring 1.5 cm(previously 0.3 cm, series 4 image 147). *A left para-aortic lymph node measuring 1.2 cm (previouslyimperceptible, series 4 image 127). *A left common iliac node measuring 1.2 cm (previously 0.6 cm, series 4image 173). *A right common iliac node measures 1.1 cm (previously 0.5 cm, series 4image 180). *A retrocaval lymph node is unchanged, measuring 1.1 cm, series 4 ). *A right external iliac lymph node measures 0.9 cm (previously 0.9 cm,series 4 image 237). *A left external iliac lymph node measures 1.2 cm (previously 1.2 cm,series 4 image 238) *A right inguinal lymph node measures 1.1 cm (previously 1.1 cm, series 4image 254). *A left inguinal lymph node measures 1.1 cm (previously 0.8 cm, series 4image 262). Aorta and IVC maintain normal caliber and contour, with mild to moderatecalcified atherosclerotic plaque within the abdominal aorta. The portalvein, SMV, and splenic vein are patent. Hepatic veins are patent. Free Fluid:No free fluid. Musculoskeletal and Body Wall: Stable appearance of the ventral abdominalwall hernia containing nonobstructed small bowel and fat. No suspiciousbody wall lesions. No suspicious bony findings. IMPRESSION: Chest: No evidence of disease progression. Abdomen/Pelvis: Stable lesion of the vaginal cuff. Stable to increasing retroperitoneal and pelvic lymphadenopathy whencompared to examination from 10/17/2023, detailed above. CRITICAL RESULT: No. COMMUNICATION: Per this written report. Drafted by Carlene Aponte MD on 01/30/2024 7:25 AM Final report signed by Carlene Aponte MD on 01/30/2024 7:52 AM Penelope Dodson MD IMG CT PROCEDURES Fin [...] documented as of this encounter Care Teams Cook Frozen Dessert Relationship Specialty Start Date End Date Flaquita Dorsey DO [address] [place] [address] PCP - General 12/14/21 Aliyah Valencia MD [address] [place] [address] Referring Physician 03/10/21 Conrado Iqbal MD [address] [place] [phone] Service Attending Cardiology 08/19/22 documented as of this encounter
--- OUTSIDE RECORDS SUMMARY | 2024-07-10 11:54 | XMS_ITS | Encounter Summary ---
Author Organization [facility] Address [facility] [place] [id number] Care Team Providers Care Reception Clerk Name Role Phone Aliyah Valencia MD Unavailable [phone] Flaquita Dorsey DO Primary Care Provider [phone] Conrado Iqbal MD Unavailable Reason for Visit * Episode Based Medications (Routine) - Authorized Specialty Diagnoses / Procedures Referred By Contac t Referred To Contact Diagnoses Carcinoma of fallopian tube, unspecified laterality (CMS/HCC) Procedures Bevacizumab Every 21 Days Penelope Carmona MD [address] [place] [address] Phone: tel: fax: [facility] Infusion Clinic [address] [place] [address] Phone: tel: Referral ID Status Reason Start Date Expiration Date V isits Requested Visits Authorized [id number] Authorized 03/13/2023 09/11/2024 1 26 Encounter Details Date Type Department Care Team (Latest Contact Info) Description 02/05/2024 4:12 PM EDT - 02/05/2024 11:59 PM EDT Hospital Encounter [facility] 2 [address] [place] [address] Carcinoma of fallopian tube, unspecified [...] Sign Reading Time Taken Comments Blood Pressure 113/77 02/05/2024 4:12 PM EDT Pulse 84 02/05/2024 4:12 PM EDT Temperature 36.1 ??C (96.9 ??F) 02/05/2024 4:12 PM ED T Respiratory Rate 16 02/05/2024 4:12 PM EDT Oxygen Saturation 98% 02/05/2024 4:12 PM EDT Inhaled Oxygen Concentration - - Weight 76.6 kg (168 lb 14 oz) 02/05/2024 4:12 PM EDT Height 160 cm (5' 3 ) 02/05/2024 4:12 PM EDT Body Mass Index 29.91 02/05/2024 4:12 PM EDT documented in this encounter Medications at Time of Discharge aspirin 81 MG chewable tablet Chew 1 tablet (81 mg) 1 (one) time each day. ergocalciferol (Vitamin D-2) 1.25 MG (15968 UT) capsule Take 1 capsule (50,000 Units) [...] mouth 2 (two) times a day. 12/10/2021 anastrozole (Arimidex) 1 MG chemo tablet Take [...] Description 08/05/2024 8:00 AM EST Office Visit [facility] Gynecology [address] [place] [address] Penelope Carmona MD [address] [place] [address] 08/05/2024 9:30 AM EST Appointment [facility] Infusion Clinic 1 [address] [place] [address] 02/26/2025 9:30 AM EDT Appointment [facility] Breast Care Center [facility] [address] [place] [address] 02/26/2025 10:30 AM EDT Office Visit [facility] [address] [place] [address] Berenice Resendez, CAREER DISCOVERY TEACHER 800 [facility] [address] [place] [address] documented as of this encounter Visit Diagnoses [...] Specific administration requirements refer to [id number]., On Mon02/05/24 at 1645, For 1 dose, NS 100 mLIndications:Carcinoma of fallopian tube, unspecified laterality (CMS/HCC) New Bag 02/05/2024 5:00 PM EDT 1,200 mg 356 mL/hr documented in this encounter Additional Health Concerns Assessment Noted Time A fall risk assessment has been complete d for the patient 02/05/2024 4:15 PM EDT A Body Mass Index follow-up plan has been documented for the patient 08/19/2022 9:30 AM EST documented as of this encounter Care Teams Reception Clerk Relationship Specialty Start Date End Date Flaquita Dorsey DO [address] [place] [address] PCP - General 12/14/21 Aliyah Valencia MD [address] [place] [address] Referring Physician 03/10/21 Conrado Iqbal MD [address] [place] [address] Service Attending Cardiology 08/19/22 documented as of this encounter
--- OUTSIDE RECORDS SUMMARY | 2024-07-10 11:54 | XMS_ITS | Encounter Summary ---
Author Organization Healthcare Address [address] [place] [address] Care Team Providers Care Solder Making Supervisor Name Role Phone Aliyah Valencia MD Unavailable [phone] Flaquita Dorsey DO Primary Care Provider [phone] Conrado Iqbal MD Unavailable Encounter Details Date Type Department Care Team (Latest Contact Info) Description 02/26/2024 Travel Social History Tobacco Use Types Packs/Day [...] AM EST Office Visit [facility] [address] [address] [place] [address] Penelope Carmona MD 800 [facility] [address] [place] [address] 08/05/2024 9:30 AM EST Appointment [facility] 1 [address] [place] [address] 02/26/2025 9:30 AM EDT Appointment [facility] [address] [facility] [address] [place] [address] 02/26/2025 10:30 AM EDT Office Visit [facility] [address] [facility], [address]nd [place] [address] Berenice eRsendez, INJECTION MOLD TECHNICIAN 800 [facility] [address] [facility] [address] [place] [address] documented as of this encounter Visit Diagnoses Not on filedocumented in this encounter Additional Health Concerns Assessment Noted Time A fall risk assessment has been complete d for the patient 02/26/2024 4:14 PM EDT A Body Mass Index follow-up plan has been documented for the patient 08/19/2022 9:30 AM EST documented as of this encounter Care Teams Solder Making Supervisor Relationship Specialty Start Date End Date Flaquita Dorsey DO [address] [place] [address] [place] [address] PCP - General 12/14/21 Aliyah Valencia MD [address] [place] [place] [address] Referring Physician 03/10/21 Conrado Iqbal MD [address] [place] [address] Service Attending Cardiology 08/19/22 documented as of this encounter
--- OUTSIDE RECORDS SUMMARY | 2024-07-10 11:54 | XMS_ITS | Encounter Summary ---
Author Organization [facility] Address [address] [place], [place] [address] Care Team Providers Care Healthcare Science Specialist Name Role Phone Aliyah Valencia MD Unavailable [phone] Flaquita Dorsey DO Primary Care Provider [phone] Conrado Iqbal MD Unavailable Encounter Details Date Type Department Care Team (Late st Contact Info) Description 01/15/2024 Telephone [facility] [address] [place] [address] Shy Mcgrath, PharmD [facility] [address] [place] [address] Social History Tobacco Use Types Packs/Day Years [...] Telephone Encounter - Shy Mcgrath, PharmD - 01/15/2024 4:37 PM EDT [facility] Plan of Care - [facility] Review Reviewed patient's current medication list for drug interaction with specialty medication: No interaction identified Adherence Summary: No issues identified Adverse events/side effect summary: Experienced adverse events/side effects, Clinical Intervention Not Needed - Adverse event description: holding therapy until repeat scans d/t concerns for transaminitis vs progression Storage, disposal, and administration summary: No issues identified Condition Summary: Stable Plan of care goal: Slow or prevent progression of disease and Minimize/manage side effects or toxicities Therapeutic Goal Summary: Unable to assess Patients therapy is appropriate to: Hold Did the patient have any additional questions or needs to be coordinated with additional members ofthe care team (Physical therapy, Social Work, etc)? 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 Assessment: Per clinic [facility], holding cytoxan for possible transaminitis vs progression. Will repeat scans at next visit Plan/Patient specific needs: NA Patient/caregiver participated in [...] Upcoming Encounters Date Type Department Care Team ([facility] Contact Info) Description 08/05/2024 8:00 AM EST Office Visit [facility] Gynecology [address] [facility] [address] [place] [address] Penelope Carmona MD [address] [facility] [address] [facility] [address] [place] [address] 08/05/2024 9:30 AM EST Appointment [facility] 1 [address] [place] [address] 02/26/2025 9:30 AM EDT Appointment [facility] Radha Nunez [facility] 800 [place] [address] 02/26/2025 10:30 AM EDT Office Visit [facility] Breast Care Center [address] [facility], [address]nd [place] [address] Berenice Resendez, CLAIMS CUSTOMER SERVICE REPRESENTATIVE [address] [facility] [address] [place] [address] documented as of this encounter Visit Diagnoses Not on filedocumented in this encounter Additional Health Concerns Assessment Noted Time A fall risk assessment has been complete d for the patient 01/15/2024 4:21 PM EDT A Body Mass Index follow-up plan has been documented for the patient 08/19/2022 9:30 AM EST documented as of this encounter Care Teams Healthcare Science Specialist Relationship Specialty Start Date End Date Flaquita Dorsey DO [address] [place] [address] PCP - General 12/14/21 Aliyah Valencia MD [address] [place], [place] [address] Referring Physician 03/10/21 Conrado Iqbal MD [address] [place] [address] Service Attending Cardiology 08/19/22 documented as of this encounter
--- OUTSIDE RECORDS SUMMARY | 2024-07-10 11:54 | XMS_ITS | Encounter Summary ---
Author Organization Healthcare Address [address] [place] [address] Care Team Providers Care Detective Private Eye Name Role Phone Aliyah Valencia MD Unavailable Flaquita Dorsey DO Primary Care Provider +- [phone] Conrado Iqbal MD Unavailable Encounter Details Date Type Department Care Team (Latest Contact Info) Description 12/27/2023 Travel Social History Tobacco Use Types Packs/Day Years Used Date Smoking Tobacco: Former Cigarettes 0.5 22 1 976 - 1997 Passive Smoke Exposure: Past Smokeless Tobacco: Former Alcohol Use Standard Drinks/Week Comments Not Currently 0 (1 standard drink = 0.6 oz pur e alcohol) PHQ-2 Answer Date Recorded Patient Health Questionnaire-2 Score 0 12/27/2023 PHQ-2A Answer Date Recorded Patient Health Questionnaire-2 [...] AM EST Office Visit [facility] [address] [address] [place] [address] Penelope Carmona MD 800 [facility] [address] [place] [address] 08/05/2024 9:30 AM EST Appointment [facility] 1 [address] [place] [address] 02/26/2025 9:30 AM EDT Appointment [facility] Radha Lai [facility] [address] [place] [address] 02/26/2025 10:30 AM EDT Office Visit [facility] [address] [facility], [address]nd [place] [address] Berenice Resendez, EDUCATION FINANCE PROCESSOR 800 [facility] [address] [facility] [address] [place] [address] documented as of this encounter Visit Diagnoses Not on filedocumented in this encounter Additional Health Concerns Assessment Noted Time A fall risk assessment has been complete d for the patient 12/27/2023 2:00 PM EDT A Body Mass Index follow-up plan has been documented for the patient 08/19/2022 9:30 AM EST documented as of this encounter Care Teams Detective Private Eye Relationship Specialty Start Date End Date Flaquita Dorsey DO [address] [place] [address] PCP - General 12/14/21 Aliyah Valencia MD [address] [place] [address] Referring Physician 03/10/21 Conrado Iqbal MD [address] [place] [address] Service Attending Cardiology 08/19/22 documented as of this encounter
--- OUTSIDE RECORDS SUMMARY | 2024-07-10 11:54 | XMS_ITS | Encounter Summary ---
Author Organization [facility] Address [address] [place], [place] [address] Care Team Providers Care Manager Personnel Selection Name Role Phone Aliyah Valencia MD Unavailable [phone] Flaquita Dorsey DO Primary Care Provider [phone] Conrado Iqbal MD Unavailable Reason for Referral * Imaging (Routine) - Closed Specialty Diagnoses / Procedures Referred By Contac t Referred To Contact Radiology Diagnoses Carcinoma of fallopian tube, unspecified laterality (CMS/HCC) Procedures CT Abdomen Pelvis w IV Contrast Penelope Carmona MD [address] [address] Phone: tel: fax: Referral ID Status Reason Start Date Expiration Date Visits Re quested Visits Authorized [id number] Closed 01/15/2024 07/16/2025 1 1 * Imaging (Routine) - Closed Specialty Diagnoses / Procedures Referred By Contac t Referred To Contact Radiology Diagnoses Carcinoma of fallopian tube, unspecified laterality (CMS/HCC) Procedures CT Chest w IV Contrast Penelope Carmona MD [address] [address] Phone: tel: fax: Referral ID Status Reason Start Date Expiration Date Visits Re quested Visits Authorized [id number] Closed 01/15/2024 07/16/2025 1 1 Reason for Visit * Imaging (Routine) - Closed Specialty Diagnoses / Procedures Referred By Contac t Referred To Contact Radiology Diagnoses Carcinoma of fallopian tube, unspecified laterality (CMS/HCC) Procedures CT Abdomen Pelvis w IV Contrast Penelope Carmona MD [address] [facility] [address] [place] [address] Phone: tel: fax: Referral ID Status Reason Start Date Expiration Date Visits Re quested Visits Authorized [id number] Closed 01/15/2024 07/16/2025 1 1 Encounter Details Date Type Department Care Team (Latest Contact Info) Description 01/29/2024 3:15 PM EDT - 01/29/2024 11:59 PM EDT Hospital Encounter [facility] A Radiology [address] [place] [address] Carcinoma of fallopian tube, unspecified laterality (CMS/HCC) [...] each day. ergocalciferol (Vitamin D-2) 1.25 MG (67183 UT) capsule Take 1 capsule (50,000 Units) [...] mouth 2 (two) times a day. 12/10/2021 biotin 1000 MCG tablet Take 1 tablet [...] as of this encounter Miscellaneous Notes * Freda Garcia - 01/29/2024 3:24 PM EDT Images from the original note were not included. 4089 Caring for Yourself after Contrast Imaging If [...] Upcoming Encounters Date Type Department Care Team ([facility] st Contact Info) Description 08/05/2024 8:00 AM EST Office Visit [facility] Gyne[facility] 800 [facility] [address] [place] [address] Penelope Carmona MD 800 [facility] [address] [facility] [address] [place] [address] 08/05/2024 9:30 AM EST Appointment [facility] 1 [address] [place] [address] 02/26/2025 9:30 AM EDT Appointment [facility] [place] [facility] [address] [facility] 800 [place] [address] 02/26/2025 10:30 AM EDT Office Visit [facility] Breast Care Center [address] [facility], 2nd [place] [address] Berenice Resendez, DIRECTOR OF BANDS 800 [facility] [address] [facility] [address] [place] [address] documented as of this encounter Procedures Procedure Name Priority Date/Time Associated Diagnosis Comments CT ABDOMEN PELVIS W IV CONTRAST Routine 01/29/2024 4:35 PM EDT Carcinoma of fallopian tube, unspecified laterality (CMS/HCC) CT CHEST W IV CONTRAST Routine 01/29/2024 4:35 PM EDT Carcinoma of fallopian tube, unspecified [...] is unchanged, measuring 1.1 cm, series 4 [id number] *A right external iliac lymph node measures [...] is unchanged, measuring 1.1 cm, series 4 [id number] *A right external iliac lymph node measures [...] Once in imaging, 1 dose, Starting on Mon01/29/24 at 1524, Until Mon01/29/24 at 1635, Routine, Imaging Protocol Orders Given 01/29/2024 4:35 PM EDT 100 mL iohexol (OMNIPaque) 9 MG/ML oral contrast 500 mL 500 mL, Oral, Once in imaging, 1 dose, Starting on Mon01/29/24 at 1524, Until Mon01/29/24 at 1635, Routine, Imaging Protocol Orders Given 01/29/2024 4:35 PM EDT 500 mL documented in this encounter Additional Health Concerns Assessment Noted Time A fall risk assessment has been complete d for the patient 01/15/2024 4:21 PM EDT A Body Mass Index follow-up plan has been documented for the patient 08/19/2022 9:30 AM EST documented as of this encounter Care Teams Manager Personnel Selection Relationship Specialty Start Date End Date Flaquita Dorsey DO [address] [place] [address] PCP - General 12/14/21 Aliyah Valencia MD [address] [place] [address] Referring Physician 03/10/21 Conrado Iqbal MD [address] [place] [address] Service Attending Cardiology 08/19/22 documented as of this encounter
--- OUTSIDE RECORDS SUMMARY | 2024-07-10 11:54 | XMS_ITS | Encounter Summary ---
Author Organization [facility] Address [address] [place], [place] [address] Care Team Providers Care Linotyper Name Role Phone Aliyah Valencia MD Unavailable [phone] Flaquita Dorsey DO Primary Care Provider + [phone] Conrado Iqbal MD Unavailable Encounter Details Date Type Department Care Team (Late Contact Info) Description 02/06/2024 Abstract [facility]cology [address] [place] [address] Ana RosaEly S, CHIEF ACCOUNTANT [address] [facility] Kevin [address] [place] [address] Social History Tobacco Use Types [...] [address] [place] [address] Penelope Carmona MD 800 [facility] [address] [facility] [address] [place] [address] 08/05/2024 9:30 AM EST Appointment [facility] 1 [address] [place] [address] 02/26/2025 9:30 AM EDT Appointment [facility] [address] [facility] 800 [place] [address] 02/26/2025 10:30 AM EDT Office Visit [facility] Breast [facility] [address] [facility], 2nd [place] [address] Berenice Resendez, CHIEF ACCOUNTANT 800 [facility] Joelle [facility] Kevin [address] [place] [address] documented as of this encounter Visit Diagnoses Not on filedocumented in this encounter Additional Health Concerns Assessment Noted Time A fall risk assessment has been complete d for the patient 02/05/2024 4:15 PM EDT A Body Mass Index follow-up plan has been documented for the patient 08/19/2022 9:30 AM EST documented as of this encounter Care Teams Linotyper Relationship Specialty Start Date End Date Flaquita Dorsey DO [address] [place] [address] PCP - General 12/14/21 Aliyah Valecnia MD [address] [place] [place] [address] Referring Physician 03/10/21 Conrado Iqbla MD [address] [place] [address] Service Attending Cardiology 08/19/22 documented as of this encounter
--- OUTSIDE RECORDS SUMMARY | 2024-07-10 11:54 | XMS_ITS | Encounter Summary ---
Author Organization Healthcare Address [address] [place] [address] Care Team Providers Care Caramel Maker Name Role Phone Aliyah Valencia MD Unavailable [phone] Flaquita Dorsey DO Primary Care Provider +- [phone] Conrado Iqbal MD Unavailable Encounter Details Date Type Department Care Team (Latest Contact Info) Description 02/05/2024 Travel Social History Tobacco Use Types Packs/Day [...] AM EST Office Visit [facility] [address] [address] [place] [address] Penelope Carmona MD 800 [facility] [address] [place] [address] 08/05/2024 9:30 AM EST Appointment [facility] 1 [address] [place] [address] 02/26/2025 9:30 AM EDT Appointment [facility] [place] [address] Lai [facility] 800 [place] [address] 02/26/2025 10:30 AM EDT Office Visit [facility] [address] [facility], 2nd [place] [address] Berenice Resendez, [employer] P[employer]OT 800 [facility] [address]ai [facility] [address] [place] [address] documented as of this encounter Visit Diagnoses Not on filedocumented in this encounter Additional Health Concerns Assessment Noted Time A fall risk assessment has been complete d for the patient 02/05/2024 4:15 PM EDT A Body Mass Index follow-up plan has been documented for the patient 08/19/2022 9:30 AM EST documented as of this encounter Care Teams Caramel Maker Relationship Specialty Start Date End Date Flaquita Dorsey DO [address] [place] [address] PCP - General 12/14/21 Aliyah Valencia MD [address] [place] [place] [address] Referring Physician 03/10/21 Conrado Iqbal MD [address] [place] [address] Service Attending Cardiology 08/19/22 documented as of this encounter
--- OUTSIDE RECORDS SUMMARY | 2024-07-10 11:54 | XMS_ITS | Encounter Summary ---
Author Organization Healthcare Address [address] [place] [address] Care Team Providers Care Sewing Trimmer Name Role Phone Aliyah Valencia MD Unavailable [phone] Flaquita Dorsey DO Primary Care Provider [phone] Conrado Iqbal MD Unavailable Reason for Visit * Reason Onset Date Comments appointment verification 01/22/2024 Encounter Details Date Type Department Care Team (Late st Contact Info) Description 01/22/2024 Telephone [facility] [address] [place] [address] Sadaf Perea, RN [facility] appointment verification Social History Tobacco Use Types Packs/Day Years [...] Telephone Encounter - Sadaf Perea RN - 01/22/2024 10:34 AM EDT Pt called to ask if she had been scheduled for a CT scan yet. Verified time and date of her scan. Pt verbalized understanding of appts. -Sadaf documented in this encounter Plan of Treatment Upcoming Encounters Date Type Department Care Team ([facility] st Contact Info) Description 08/05/2024 8:00 AM EST Office Visit [facility] [address] [facility] [address] [place] [address] Penelope Carmona MD [address] [facility] [address]ai [facility] [address] [place] [address] 08/05/2024 9:30 AM EST Appointment [facility] 1 [address] [place] [address] 02/26/2025 9:30 AM EDT Appointment [facility] Breast [facility] [place] [facility] [address] [facility] 800 [place] [address] 02/26/2025 10:30 AM EDT Office Visit [facility] Breast Care [place] [address] [facility], 2nd [place] [address] Bereince Resendez, RISK MANAGEMENT PROFESSIONAL [address] [facility] [address] [facility] [address] [place] [address] documented as of this encounter Visit Diagnoses Not on filedocumented in this encounter Additional Health Concerns Assessment Noted Time A fall risk assessment has been complete d for the patient 01/15/2024 4:21 PM EDT A Body Mass Index follow-up plan has been documented for the patient 08/19/2022 9:30 AM EST documented as of this encounter Care Teams Sewing Trimmer Relationship Specialty Start Date End Date Flaquita Dorsey DO [address] [place] [address] PCP - General 12/14/21 Aliyah Valencia MD [address] [place] [address] Referring Physician 03/10/21 Conrado Iqbal MD [address] [place] [address] Service Attending Cardiology 08/19/22 documented as of this encounter
--- OUTSIDE RECORDS SUMMARY | 2024-07-10 11:54 | XMS_ITS | Encounter Summary ---
Author Organization [facility] Address [address] [place], [place] [address] Care Team Providers Care Space Officer Name Role Phone Aliyah Valencia MD Unavailable [phone] Flaquita Dorsey DO Primary Care Provider [phone]- [phone] Conrado Iqbal MD Unavailable Encounter Details Date Type Department Care Team (Late Contact Info) Description 01/30/2024 Orders Only [facility] Gynecology [address] [place] [address] Penelope Carmona MD [address] [facility] [address] [place] [address] Social History Tobacco Use Types [...] [address] [place] [address] Penelope Carmona MD 800 [facility] [address] [place] [address] 08/05/2024 9:30 AM EST Appointment [facility] 1 [address] [place] [address] 02/26/2025 9:30 AM EDT Appointment [facility] [address] [address] [address] [facility] 800 [place] [address] 02/26/2025 10:30 AM EDT Office Visit [facility] [place] [address] [facility], 2nd [place] [address] Berenice Resendez, POUNCING MACHINE OPERATOR 800 [facility] [address] [place] [address] documented as of this encounter Visit Diagnoses Not on filedocumented in this encounter Additional Health Concerns Assessment Noted Time A fall risk assessment has been complete d for the patient 01/15/2024 4:21 PM EDT A Body Mass Index follow-up plan has been documented for the patient 08/19/2022 9:30 AM EST documented as of this encounter Care Teams Space Officer Relationship Specialty Start Date End Date Flaquita Dorsey DO [address] [place], [place] [address] PCP - General 12/14/21 Aliyah Valencia MD [address] [place], [place] [address] Referring Physician 03/10/21 Conrado Iqbal MD [address] [place] [address] Service Attending Cardiology 08/19/22 documented as of this encounter
--- OUTSIDE RECORDS SUMMARY | 2024-07-10 11:54 | XMS_ITS | Encounter Summary ---
Author Organization [facility] Address [address] [place], [place] [address] Care Team Providers Care Editing Intern Name Role Phone Aliyah Valencia MD Unavailable [phone] Flaquita Dorsey DO Primary Care Provider [phone] Conrado Iqbal MD Unavailable Reason for Visit * Episode Based Medications (Routine) - Authorized Specialty Diagnoses / Procedures Referred By Contac t Referred To Contact Diagnoses Carcinoma of fallopian tube, unspecified laterality (CMS/HCC) Procedures Bevacizumab Every 21 Days Penelope Carmona MD [address] [address] Phone: tel: fax: [facility] Infusion [facility] 2 [address] [place] [address] Phone: tel: Referral ID Status Reason Start Date Expiration Date V isits Requested Visits Authorized [id number] Authorized 03/13/2023 09/11/2024 1 26 Encounter Details Date Type Department Care Team (Latest Contact Info) Description 02/26/2024 4:00 PM EDT - 02/26/2024 11:59 PM EDT Hospital Encounter [facility] 1 [address] [place] [address] Carcinoma of fallopian tube, unspecified [...] Reading Time Taken Comments Blood Pressure 130/76 02/26/2024 6:02 PM EDT Pulse 87 02/26/2024 6:02 PM EDT Temperature 36.6 ??C (97.8 ??F) 02/26/2024 4:11 PM ED T Respiratory Rate 16 02/26/2024 4:11 PM EDT Oxygen Saturation 97% 02/26/2024 4:11 PM EDT Inhaled Oxygen Concentration - - Weight 75.2 kg (165 lb 12.6 oz) 02/26/2024 4:11 PM EDT Height 160 cm (5' 3 ) 02/26/2024 4:11 PM EDT Body Mass Index 29.37 02/26/2024 4:11 PM EDT documented in this encounter Medications at Time of Discharge aspirin 81 MG chewable tablet Chew 1 tablet (81 mg) 1 (one) time each day. ergocalciferol (Vitamin D-2) 1.25 MG (15657 UT) capsule Take 1 capsule (50,000 Units) [...] AM EST Office Visit [facility] Gynecology 800 [facility] [address] [place] [address] Penelope Carmona MD [address] [place] [address] 08/05/2024 9:30 AM EST Appointment [facility] 1 [address] [place] [address] 02/26/2025 9:30 AM EDT Appointment [facility] [address] [place] [address] 02/26/2025 10:30 AM EDT Office Visit [facility] [place] 740 [facility], 2nd [place] [address] Berenice Resendez D, LEGAL RECORDS CLERK 800 [facility] [address] [place] [address] documented as of this encounter Visit Diagnoses [...] Specific administration requirements refer to [id number]., On 02/26/24 at 1715, For 1 dose, NS 100 mLIndications:Carcinoma of fallopian tube, unspecified laterality (CMS/HCC) New Bag 02/26/2024 5:32 PM EDT 1,200 mg 356 mL/hr documented in this encounter Additional Health Concerns Assessment Noted Time A fall risk assessment has been complete d for the patient 02/26/2024 4:14 PM EDT A Body Mass Index follow-up plan has been documented for the patient 08/19/2022 9:30 AM EST documented as of this encounter Care Teams Editing Intern Relationship Specialty Start Date End Date Flaquita Dorsey DO [address] [place] [address] PCP - General 12/14/21 Aliyah Valencia MD [address] [place] [address] Referring Physician 03/10/21 Conrado Iqbal MD [address] [place] [address] Service Attending Cardiology 08/19/22 documented as of this encounter
--- OUTSIDE RECORDS SUMMARY | 2024-07-10 11:54 | XMS_ITS | Encounter Summary ---
Author Organization Healthcare Address [address] [place], [place] [id number] Care Team Providers Care Fig Washer Name Role Phone Aliyah Valencia MD Unavailable [phone] Flaquita Dorsey DO Primary Care Provider [phone] Conrado Iqbal MD Unavailable Encounter Details Date Type Department Care Team (Late st Contact Info) Description 02/05/2024 3:15 PM EDT Office Visit [facility] [address] [place] [address] Penelope Carmona MD [address] [facility] [address] [place] [address] Carcinoma of fallopian tube, unspecified [...] Sign Reading Time Taken Comments Blood Pressure 117/78 02/05/2024 2:58 PM EDT Pulse 80 02/05/2024 2:58 PM EDT Temperature 36.1 ??C (96.9 ??F) 02/05/2024 2:58 PM ED T Respiratory Rate - - Oxygen Saturation 97% 02/05/2024 2:58 PM EDT Inhaled Oxygen Concentration - - Weight 76 kg (167 lb 8.8 oz) 02/05/2024 2:58 PM EDT Height 160 cm (5' 3 ) 02/05/2024 2:58 PM EDT Body Mass Index 29.68 02/05/2024 2:58 PM EDT documented in this encounter Miscellaneous Notes * Progress Notes - Penelope Carmona MD - 02/05/2024 3:15 PM EDT Primary Care Provider: Flaquita Dorsey [...] were negative for metastatic disease. ER and UT were strongly positive and HER-2 was negative. [...] ER positive in 90% of the cells, UT positive in 95% of cells andHER-2 negative by IHC at 0. On 10/04/2016 she underwent a left needle localized lumpectomy. [place] lymph node biopsy was not performed as [...] vagina). Initiated neoadjuvant chemo with carbo/Taxol per RUBBER MILL TENDER followed by BSO/Omentectomy and adjuvant Carbotaxol. Recurrence in March 2019. Treated with carbo initially followed by Olaparib. 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 She is currently off of therapy. She follows with Dr. Hutchins in [place]. 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 Patient is here today for cycle [address] acquired and may show some slight progression of adenopathy. Doing well. No GRAJEDA. No diarrhea spells. No syncope spells. Appetite ok. VB has increased a little bit over past few months but still light. PMH: h/o breast cancer x2, ?cervical cancer, [...] years ago, no drugs, retired, lives in [place]. FamHx: Father-prostate, MGma-colon. ROS: 14 pt ROS performed with pertinent positives and negatives as noted in HPI. ROS otherwise negative Objective Physical Exam: Vital Signs for this encounter: BSA: 1.84 meters squared Visit Vitals BP 117/78 Pulse 80 Temp 36.1 ??C (96.9 ??F) Ht 1.6 m (5' 3 ) Wt [...] by radiation for additional recurrence - Now allakaket resistant - Started Dana/oral Cytoxan, held Dana after cycle 4 due to Chest pain - CT after 4 cycles showed interval resolution of vaginal mass and no further disease. - At visit 08/2022: Patient had additional CP episode and heart cath subsequently performed. 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 However, also [...] until progression more profound. Discussed at length today and she elects to continue Dana/Cytoxan - Cycle 16 of Dana today. Continue Cytoxan. Cyclic Ca125 monitoring with imaging q 3-4 cycles. Problem 2: Encounter for chemotherapy Assessment and plan 2: - Proceed with cycle 16 of Bevacizumab 15 mg/kg today. Plan q [...] up with breast clinic (recent visit JARED) Problem 5: Neuropathy Assessment and plan 5: - Treatment related. - Will not use Taxol again. - Currently on Gabapentin 600 mg at bedtime Problem 6: h/o syncope episodes and carotid stenosis, now with chest tightness over Thanks2021, in July 2022, 10/28/2022, 12/15/2022, 04/2023 Assessment and plan 6: - Has been followed in past with cards at - Seen by cardiology at [facility] and acute workup negative but diagnostic [...] April 2023 - ED workup negative for [place] - No further episodes since last cycle - Continue to monitor closely Problem 7: Intermittent diarrhea Assessment and plan 7: - Unlikely relation to Cytoxan given timing/drug profile - Offered colonoscopy/GI referral but declines for now - No episodes since last visit - Monitor Problem 8: transaminitis Assessment and [...] Assessment and plan 9: - Distant history, intermediate survivor. Summary of time spent in team based care today includes the following activities performed by myself: review of prior documentation in preparation for visit, review of images and imaging report, review of labs and any other test results, obtaining and reviewing medical history, appropriate focused physical exam, discussion of exam and/or test results, discussion of plan of care, lab orders, phlebotomy, and documentation Penelope Dodson MD * Progress Notes - Serena Xiong, PharmD - 02/05/2024 3:15 PM EDT Pharmacy Hematology/Oncology Treatment Plan Note [...] from 05/28/2001: pT1c, pN0, cM0, G2, ER+, UT+, HER2: Unknown - Signed by Cara Greene MD on 06/19/2021 - Pathologic stage from 10/05/2016: Stage Unknown (rpT1c, pNX, cM0, G2, ER+, UT+, HER2-) - Signed by Cara Greene MD [...] physician who specializes in thyroid eye diseases. Planning to reimage ABIGAIL. Imaging demonstrates mild progression. Will continue with therapy and continue to monitor closely. Dosing Wt: 84 kg Today's Wt: Wt Readings from Last 1 Encounters: 02/05/24 76 kg (167 lb 8.8 oz) Dosing Ht: 160 cm Dosing BSA: [...] Lab Results Component Value Date URINEPRO Negative 12/27/2023 Vitals: Vitals: 02/05/24 1458 BP: 117/78 Pulse: 80 Temp: 36.1 ??C (96.9 ??F) SpO2: 97% Other Relevant Monitoring: None Treatment Plan: Cyclophosphamide 50 mg daily - HELD Bevacizumab 15 mg/kg (1200 mg) IV D1 Every 21 days + Denosumab q 6 months (LD 01/15/24, next due 06/2024) [x] No dose adjustments made Current Treatment Plan History: Oral Cyclophosphamide 50 mg daily (08/31/22 - present) - Held 01/15/24 for transaminitis - resumed late December d/t low suspicion for chemo induced toxicity Bevacizumab Cycle 1: 03/20/23 Cycle 2: 04/10/23 Cycle 3: 05/08/23 Cycle 4: 05/29/23 Cycle 5: 06/19/23 Cycle 6: 07/10/23 Cycle 7: 08/02/23 Cycle 8: 08/23/23 Cycle 9: 09/13/23 Cycle 10: 10/04/23 Cycle 11: 10/25/23 Cycle 12: 11/15/23 Cycle 13: 12/06/23 Cycle 14: 12/27/23 Cycle 15: 01/15/24 Cycle 16: 02/05/24 Prior Chemotherapy History: hormone therapy for prior [...] 3 weeks. Will follow-up at that time. Warren CancholaD, [facility] Hematology/Oncology Clinical Pharmacist documented in this encounter Plan of Treatment Upcoming Encounters Date Type Department Care Team (Late st Contact Info) Description 08/05/2024 8:00 AM EST Office Visit [facility] [address] [place] [address] Penelope Carmona MD [address] [place] [address] 08/05/2024 9:30 AM EST Appointment [facility] [address] [place] [address] 02/26/2025 9:30 AM EDT Appointment [facility] [address] [place] [address] 02/26/2025 10:30 AM EDT Office Visit [facility] [address] [facility]nd [place] [address] Berenice Resendez, PRACTICE ASSISTANT [address] [facility] [address] [place] [address] documented as of this encounter Procedures Procedure Name Priority Date/Time Associated Diagnosis Comments URINALYSIS MICROSCOPIC FOR UA REFLEX Routine 02/05/2024 3:28 PM EDT Carcinoma of fallopian tube, unspecified laterality (CMS/HCC) URINALYSIS WITH REFLEX MICROSCOPIC Routine 02/05/2024 3:28 PM EDT Carcinoma of fallopian tube, unspecified laterality (CMS/HCC) CA 125 Routine 02/05/2024 3:11 PM EDT Carcinoma of fallopian tube, unspecified laterality (CMS/HCC) documented in this encounter Results * Urinalysis Microscopic Examination (02/05/2024 3:28 PM EDT) Urine Urine specimen obtained by clean catch procedure / Unknown Non-blood Collection / Unknown 02/05/2024 3:28 PM EDT 02/05/2024 3:46 PM EDT us Penelope Dodson MD LAB URINE ORDERABLES Final Result [facility] [address] [place] [address] * (ABNORMAL) Urinalysis with reflex microscopic (Culture NOT Included) (02/05/2024 3:28 PM EDT) Color, Urine Yellow LAB URINALYSIS - AUTOMATED METHOD 02/05/2024 3:55 PM EDT [facility] Clarity, Urine Clear LAB URINALYSIS - AUTOMATED METHOD 02/05/2024 3:55 PM EDT [facility] Spec [place], Urine 1.007 <=1.005 to >=1.030 LAB URINALYSIS - AUTOMATED METHOD 02/05/2024 3:55 PM EDT [facility] pH, Urine 6.0 4.5 to 8 LAB URINALYSIS - AUTOMATED METHOD 02/05/2024 3:55 PM EDT [facility] Protein, Urine Negative Negative mg/dL LAB URINALYSIS - AUTOMATED METHOD 02/05/2024 3:55 PM EDT [facility] Glucose, Urine Negative Negative mg/dL LAB URINALYSIS - AUTOMATED METHOD 02/05/2024 3:55 PM EDT [facility] Ketones, Urine Negative Negative mg/dL LAB URINALYSIS - AUTOMATED METHOD 02/05/2024 3:55 PM EDT [facility] Blood, Urine Small(A) Negative LAB URINALYSIS - AUTOMATED METHOD 02/05/2024 3:55 PM EDT [facility] Bilirubin, Urine Negative Negative LAB URINALYSIS - AUTOMATED METHOD 02/05/2024 3:55 PM EDT [facility] Urobilinogen, Urine 0.2 0.2 to 1.0 mg/dL LAB URINALYSIS - AUTOMATED METHOD 02/05/2024 3:55 PM EDT [facility] Leukocytes, Urine Moderate(A) Negative LAB URINALYSIS - AUTOMATED METHOD 02/05/2024 3:55 PM EDT [facility] Nitrite, Urine Negative Negative LAB URINALYSIS - AUTOMATED METHOD 02/05/2024 3:55 PM EDT [facility] RBC, Urine 4 - 10(A) 0 to 3 /HPF LAB URINALYSIS - AUTOMATED METHOD 02/05/2024 3:55 PM EDT [facility] WBC, Urine 11 - 20(A) 0 to 5 /HPF LAB URINALYSIS - AUTOMATED METHOD 02/05/2024 3:55 PM EDT [facility] Squamous Epithelial Cells 0 - 2 0 to 5 /HPF LAB URINALYSIS - AUTOMATED METHOD 02/05/2024 3:55 PM EDT [facility] Hyaline Casts 0 - 2 0 to 5 /LPF LAB URINALYSIS - AUTOMATED METHOD 02/05/2024 3:55 PM EDT [facility] Bacteria, Urine Negative Negative LAB URINALYSIS - AUTOMATED METHOD 02/05/2024 3:55 PM EDT [facility] Urine Urine specimen obtained by clean catch procedure / Unknown Non-blood Collection / Unknown 02/05/2024 3:28 PM EDT 02/05/2024 3:46 PM EDT Penelope Dodson MD LAB URINE ORDERABLES Final Result Performing Organization Address City/[facility]/ZIP Co de Phone Number [facility] [address] [place] [address] * CA 125 (02/05/2024 3:11 PM EDT) CA 125 10.70 <=38.00 U/mL 02/05/2024 4:22 PM EDT [facility] Blood Blood sample taken from central line / Unknown (Port) Long-term Catheter / Unknown 02/05/2024 3:11 PM EDT 02/05/2024 3:41 PM EDT Narrative [facility] - 02/05/2024 4:22 PM EDT Performed by Stephie electrochemiluminescent immunoassay. Results obtained with different test methods or kits cannot be used interchangeably. Penelope Dodson MD LAB BLOOD ORDERABLES Final Result Performing Organization Address City/[facility] de Phone Number [facility] [address] [place] [address] documented in this encounter Visit Diagnoses Diagnosis [...] as of this encounter Care Teams Fig Washer Relationship Specialty Start Date End Date Flaquita Dorsey DO [address] [place] [address] PCP - General 12/14/21 Aliyah Valencia MD [address] [place] [address] Referring Physician 03/10/21 Conrado Iqbal MD [address] [place] [address] Service Attending Cardiology 08/19/22 documented as of this encounter
--- OUTSIDE RECORDS SUMMARY | 2024-07-10 11:54 | XMS_ITS | Encounter Summary ---
Author Organization [facility] Address [facility] [place] [id number] Care Team Providers Care Roll Up Operator Name Role Phone Aliyah Valencia MD Unavailable [phone] Flaquita Dorsey DO Primary Care Provider [phone]- [phone] Conrado Iqbal MD Unavailable Encounter Details Date Type Department Care Team (Late st Contact Info) Description 02/27/2024 Telephone [facility] [address] [place] [address] Ely Oseguera, GROUND SUPPORT EQUIPMENT ASSEMBLER [address] [facility] [address] [place] [address] Social History Tobacco Use Types [...] encounter Miscellaneous Notes * Telephone Encounter - Ely Camilo, GROUND SUPPORT EQUIPMENT ASSEMBLER - 02/27/2024 9:43 AM EDT Left message to hold cytoxan until recheck of labs next week. documented in this encounter Plan of Treatment Upcoming Encounters Date Type Department Care Team ([facility] st Contact Info) Description 08/05/2024 8:00 AM EST Office Visit [facility] [address] [facility] [address] [place] [address] Penelope Carmona MD [address] [facility] [address] [facility] [address] [place] [address] 08/05/2024 9:30 AM EST Appointment [facility] [address] [place] [address] 02/26/2025 9:30 AM EDT Appointment [facility] [place] [facility] [address] [facility] [address] [place] [address] 02/26/2025 10:30 AM EDT Office Visit [facility] [address] [facility]nd [place] [address] Berenice Resendez, NICKOLAS [address] [facility] [address] [facility] [address] [place] [address] documented as of this encounter Visit Diagnoses Not on filedocumented in this encounter Additional Health Concerns Assessment Noted Time A fall risk assessment has been complete d for the patient 02/26/2024 4:14 PM EDT A Body Mass Index follow-up plan has been documented for the patient 08/19/2022 9:30 AM EST documented as of this encounter Care Teams Roll Up Operator Relationship Specialty Start Date End Date Flaquita Dorsey DO [address] [place] [address] PCP - General 12/14/21 Aliyah Valencia MD [address] [place] [place] [address] Referring Physician 03/10/21 Conrado Iqbal MD [address] [place] [address] Service Attending Cardiology 08/19/22 documented as of this encounter
--- OUTSIDE RECORDS SUMMARY | 2024-07-10 11:54 | XMS_ITS | Encounter Summary ---
Author Organization Healthcare Address [address] [place], [place] [address] Care Team Providers Care Boom Stick Worker Name Role Phone Aliyah Valencia MD Unavailable [phone] Flaquita Dorsey DO Primary Care Provider [phone] Conrado Iqbal MD Unavailable Reason for Visit * Reason Comments Chemotherapy Encounter Details Date Type Department Care Team ([facility] st Contact Info) Description 01/15/2024 3:30 PM EDT Office Visit [facility] [address] [facility] [address] [place] [address] Penelope Carmona MD [address] [facility] [address] [facility] [address] [place] [address] Carcinoma of fallopian tube, unspecified laterality (CMS/HCC) (Primary Dx); Encounter for antineoplastic chemotherapy; Transaminitis; Neuropathy Social History Tobacco Use Types Packs/Day Years [...] Sign Reading Time Taken Comments Blood Pressure 124/76 01/15/2024 3:20 PM EDT Pulse 82 01/15/2024 3:20 PM EDT Temperature 36.4 ??C (97.5 ??F) 01/15/2024 3:20 PM ED T Respiratory Rate 18 01/15/2024 3:20 PM EDT Oxygen Saturation 95% 01/15/2024 3:20 PM EDT Inhaled Oxygen Concentration - - Weight 76.3 kg (168 lb 3.4 oz) 01/15/2024 3:20 P M EDT Height 160 cm (5' 3 ) 01/15/2024 3:20 PM EDT Body Mass Index 29.8 01/15/2024 3:20 PM EDT documented in this encounter Miscellaneous Notes * Progress Notes - Penelope Carmona MD - 01/15/2024 3:30 PM EDT Primary Care Provider: Flaquita Dorsey [...] were negative for metastatic disease. ER and NJ were strongly positive and HER-2 was negative. [...] ER positive in 90% of the cells, NJ positive in 95% of cells andHER-2 negative by IHC at 0. On 10/04/2016 she underwent a left needle localized lumpectomy. [place] lymph node biopsy was not performed as [...] vagina). Initiated neoadjuvant chemo with carbo/Taxol per TISSUE REWINDER followed by BSO/Omentectomy and adjuvant Carbotaxol. Recurrence in March 2019. Treated with carbo initially followed by Olaparib. 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 She is currently off of therapy. She follows with Dr. Hutchins in Trucking [facility]or/Onc. 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 Recurrence - First recurrence, [place] sensitive - CT 04/10/19 with 3 cmlesion at cuff - Ca125 12 (from 8) - MTB discussion: recommend trial if progression on [place] regimen or consider Parp for RAD 51 [...] ccy for choledocolithiasis 2019 (SGB) - Ca125: 37-5-0-7-7-9-8 - Started Parp inhibitor 09/2019 - Dose [...] concerning findings - Most recent Ca125 7.49 (21) 06/30/2021 Recurrence - Third recurrence, [place] sensitive - CT 06/30/2021 shows vaginal cuff [...] disease seen 04/11/2022 Recurrence - Fourth recurrence, [place] resistant - CT 04/11/2022 with increase in [...] Chemotherapy - Avastin started 03/20/2023 - Ca125 7.38-7.51-6.5-6.71-6.26-6.58-6.94-6.72-6.86-8.12-9.55-11.5-11.5 - CT 06/16/2023: Stable to decreased size of vaginal cuff disease, no other new findings - CT 10/17/2022: Stable vaginal cuff lesion, increasing retroperitoneal adenopathy Interval updates to history: Oncologic treatment history as described above reviewed today as well as PMH/PSH/Meds/All/SH/FH, with updates made as appropriate. Patient is here today for cycle 15 of Dana. Doing ok Her OSH last week showed another big jump in her LFT's. Happened one other time but reverted on its own. She notes no RUQ pain. Only discomfort is some stable soreness over hernia. No N/V. Appetite normal. No skin changes. Fatigue is stable. PMH: h/o breast cancer x2, ?cervical cancer, [...] ago, no drugs, retired, lives in [place]. FamHx: Father-prostate, MGma-colon. ROS: 14 pt ROS performed with pertinent positives and negatives as noted in HPI. ROS otherwise negative Objective Physical Exam: Vital Signs for this encounter: BSA: 1.84 meters squared Visit Vitals BP 124/76 (BP Location: Right arm, Patient Position: Sitting, BP Cuff Size: Adult long) Pulse 82 Temp 36.4 ??C (97.5 ??F) (Temporal) Resp 18 Ht 1.6 m (5' 3 ) Wt 76.3 kg (168 lb 3.4 oz) LMP 11/17/1981 (Approximate) SpO2 95% BMI 29.80 kg/m?? OB Status Hysterectomy Smoking Status Former [...] requested labs within last 365 days. === 10/17/23 === CT ABDOMEN PELVIS W IV CONTRAST [...] facilitate diagnostic accuracy. Total DLP (Dose-Length Product): 651.01 mGy.cm. Please note: The reported value represents the total of one or more individual components during the CT acquisition on this date and at this time, and as such, the same value may appear in more than one CT report depending on the interpreting/reporting physicians. COMPARISON: CT chest abdomen pelvis June 16, 2023. FINDINGS: Chest: Lymph Nodes and Mediastinum: No lymphadenopathy by CT size criteria. No mediastinal mass lesions. Stable appearance of the thyroid. Cardiovascular: The heart is normal in caliber. Thoracic great vessels are patent. Catheter tip terminates near the superior cavoatrial junction. Mild calcified atherosclerosis of the aortic arch. Coronary artery calcifications. Lungs and Pleura: No suspicious lung nodules to suggest metastatic disease. Unchanged appearance of5 mm right upper lobe pulmonary nodule. Calcified granulomas and calcified hilar lymph nodes. No pleural effusions or suspicious thickening. Musculoskeletal and Body Wall: No clearly aggressive bone lesions. Multilevel degenerative changes of the spine. Stable postprocedural changes in the left breast. Right chest wall port. Abdomen/Pelvis: Solid Abdominal Organs: No suspicious hepatic lesions. Status post cholecystectomy. Biliary ductal dilatation to the level of the ampulla. No suspicious pancreatic masses or lesions. Stable appearance of left adrenal myelolipoma. Right adrenal nodule is stable in size measuring 2.2 cm. A 1.2 cm peripheral enhancing nodule in the superior aspect of the right kidney (series 3 image 78) is unchanged. GI Tract/Mesentery/Peritoneum: Stomach is normal. Duodenal diverticula are present. No bowel dilation, wall thickening, or mesenteric masses. Pelvic Viscera: Underdistended urinary bladder. Status post hysterectomy. Grossly stable size of lesion at the vaginal cuff. Mild thickening of the urinary bladder.. Lymph Nodes/Vasculature: A 0.9 cm left common iliac lymph node (series 3 image 190) has increased in size, previously barely discernible. A further 1.1 cm short axis diameter lymph node in posterior relation to the IVC (series 3 image 171) has increased in size, previously 0.7 cm. A 1.1 cm right groin lymph node (series 3 image 256) has also increased in size. No abdominal aortic aneurysm. Moderate calcified atherosclerosis of the abdominal aorta. Free Fluid:No ascites Musculoskeletal and Body Wall:Unchanged appearance of fat, small, and large bowel containing ventral abdominal hernia without signs of complication. Degenerative changes of the spine. No suspicious body wall lesions. - Impression - Chest: No evidence of disease progression. Abdomen/Pelvis: Vaginal cuff lesion was remain grossly stable in size. However there is increasing retroperitoneal/pelvic lymphadenopathy as discussed.. CRITICAL RESULT: No. COMMUNICATION: Per this written report. 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 - At visit 08/2022: Patient had additional CP episode and heart cath subsequently performed. No severe disease noted and fur finisher reports ok to continue Dana. However, also [...] in 3-4 cycles to assess stability - Cycle 15 of Dana today. Continue Cytoxan. Cyclic Ca125 monitoring with imaging q 3-4 cycles. Overdue for scan so will get one ABIGAIL to evaluate disease and also transaminitis. Problem 2: Encounter for chemotherapy Assessment and plan 2: - Proceed with cycle 15 of Bevacizumab 15 mg/kg today. Plan q 21 cycles until intolerance or progression. No dose limiting toxicities identified. Pre chemo labs reviewed. Continue intensive hematologic monitoring (CBC with diff, CMP). Also continue cyclic Ca125 tumor marker monitoring. Reviewed side effects to monitor for. - Hold Cytoxan due to elevated LFT's. Will assess resuming based on lab trend and based on responseon Ct. Problem 3: Vaginal bleeding Assessment and plan 3: - Likely due to mass at cuff - Bleeding resolved after starting Dana/Cytoxan first verena - Bleeding recurred with recurrence of mass at cuff - Now minimal ( trace ) after 14 cycles of Dana. Monitor. Problem 4: History of left breast cancer x 2 Assessment and plan 4: - s/p anastrazole. No current signs of disease. Follows up with breast clinic (recent visit JARED) Problem 5: Neuropathy Assessment and plan 5: - Treatment related. - Will not use Taxol again. - Neuropathy worsening at this time - currently on Gabapentin 600 mg at bedtime Problem 6: h/o syncope episodes and carotid stenosis, now with chest tightness over 2021, in July 2022, 10/28/2022, 12/15/2022, 04/2023 Assessment and plan 6: - Has been followed in past with cards at - Seen by cardiology at [facility] and acute workup negative but diagnostic cath [...] April 2023 - ED workup negative for TX - No further episodes since last cycle [...] low threshold to stop cytoxan. - OSH last week jumped up 2-3x normal again. Asymptomatic. Today's labs improved. Holding cytoxan until prove LFT's remain improved over time. 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 Summary of time spent in team based care today includes the following activities performed by myself: review of prior documentation in preparation for visit,review of labs and any other test results,obtaining and reviewing medical history, appropriate focused physical exam, discussion of exam and/or test results, discussion of plan of care, lab orders, phlebotomy, CT orders Penelope Dodson MD * Progress Notes - Serena Xiong, PharmD - 01/15/2024 3:30 PM EDT Pharmacy Hematology/Oncology Treatment Plan Note [...] from 05/28/2001: pT1c, pN0, cM0, G2, ER+, NJ+, HER2: Unknown - Signed by Cara Greene MD on 06/19/2021 - Pathologic stage from 10/05/2016: Stage Unknown (rpT1c, pNX, cM0, G2, ER+, NJ+, HER2-) - Signed by Cara Greene MD on 06/19/2021 Study Patient: No Treatment Protocol: Bevacizumab IV every 21 days + continuous PO cytoxan Treatment Plan reviewed for: [x] Follow-Up Clinical Review Cycle 15 Day 1 [x] Follow-Up Clinical Review for Continuous Oral Therapy Interval History: Ms. John was seen by team in clinic. Continues to follow with Dr. Granda for endocrinology, ophthalmology, and a physician who specializes in thyroid eye diseases. Planning to reimage ABIGAIL. Holding Cytoxan d/t transaminitis until repeat scan assessment. Dosing Wt: 84 kg Today's Wt: Wt Readings from Last 1 Encounters: 01/15/24 76.3 kg (168 lb 3.4 oz) Dosing Ht: 160 cm Dosing BSA: 1.88 m2 Recent Labs: Lab Results Component Value Date WBC 4.12 12/27/2023 HGB 12.7 12/27/2023 HCT 38.0 12/27/2023 MCV 107 (H) 12/27/2023 PLT 166 12/27/2023 Lab Results Component Value Date GLUCOSE 91 12/27/2023 CALCIUM 9.4 12/27/2023 NA 140 12/27/2023 K 4.1 12/27/2023 CO2 21 (L) 12/27/2023 CL 108 (H) 12/27/2023 BUN 18 12/27/2023 CREATININE 0.73 12/27/2023 Lab Results Component Value Date ALT 26 12/27/2023 AST 29 12/27/2023 ALKPHOS 83 12/27/2023 BILITOT 0.3 12/27/2023 Lab Results Component Value Date NEUTROABS 2.83 12/27/2023 Lab Results Component Value Date MG 1.4 (L) 01/09/2023 No results found for: TSH Lab Results Component Value Date URINEPRO Negative 12/27/2023 Vitals: Vitals: 01/15/24 1520 BP: 124/76 Pulse: 82 Resp: 18 Temp: 36.4 ??C (97.5 ??F) SpO2: 95% Other Relevant Monitoring: None Treatment Plan: Cyclophosphamide 50 mg daily - HELD Bevacizumab 15 mg/kg (1200 mg) IV D1 Every 21 days + Denosumab q 6 months (LD 08/02/23, next due 12/2023) [x] No dose adjustments made Current Treatment Plan History: Oral Cyclophosphamide 50 mg daily (08/31/22 - present) - Held 01/15/24 for transaminitis Bevacizumab Cycle 1: 03/20/23 Cycle 2: 04/10/23 Cycle 3: 05/08/23 Cycle 4: 05/29/23 Cycle 5: 06/19/23 Cycle 6: 07/10/23 Cycle 7: 08/02/23 Cycle 8: 08/23/23 Cycle 9: 09/13/23 Cycle 10: 10/04/23 Cycle 11: 10/25/23 Cycle 12: 11/15/23 Cycle 13: 12/06/23 Cycle 14: 12/27/23 Cycle 15: 01/15/24 Prior Chemotherapy History: hormone therapy for prior [...] 08/10/22 Assessment/Plan: Cytoxan Rx prescribed to: [facility] - ON HOLD Refills will be due: 03/2024 Patient will return to clinic in 3 weeks. Will follow-up at that time. Serena Xiong PharmD, OP Hematology/Oncology Clinical Pharmacist documented in this encounter Plan of Treatment Upcoming Encounters Date Type Department Care Team (Late st Contact Info) Description 08/05/2024 8:00 AM EST Office Visit [facility] Gynecology [address] [place] [address] Penelope Carmona MD [address] [place] [address] 08/05/2024 9:30 AM EST Appointment [facility] [address] [place] [address] 02/26/2025 9:30 AM EDT Appointment [facility] [address] [place] [address] 02/26/2025 10:30 AM EDT Office Visit [facility] [address] [facility]nd [place] [address] Berenice Resendez, ANESTHESIA ASSOCIATE [address] [facility] [address] [place] [address] documented as of this encounter Procedures Procedure Name Priority Date/Time Associated Diagnosis Comments CA 125 Routine 01/15/2024 3:31 PM EDT Carcinoma of fallopian tube, unspecified laterality (CMS/HCC) LIPASE, PLASMA Add-On 01/15/2024 3:31 PM EDT Carcinoma of fallopian tube, unspecified laterality (CMS/HCC) AMYLASE, PLASMA Add-On 01/15/2024 3:31 PM EDT Carcinoma of fallopian tube, unspecified laterality (CMS/HCC) COMPREHENSIVE METABOLIC PANEL, PLASMA Routine 01/15/2024 3:31 PM EDT Carcinoma of fallopian tube, unspecified laterality (CMS/HCC) documented in this encounter Results * Lipase (01/15/2024 3:31 PM EDT) Lipase, Plasma 29 19 - 63 U/L 01/15/2024 5:11 PM EDT [facility] Blood Blood sample taken from central line / Unknown (Port) Long-term Catheter / Unknown 01/15/2024 3:31 PM EDT 01/15/2024 4:31 PM EDT us Penelope Dodson MD LAB BLOOD ORDERABLES Final Result [facility] [address] [place] [address] * Amylase (01/15/2024 3:31 PM EDT) Amylase 79 27 - 114 U/L 01/15/2024 5:11 PM EDT [facility] Blood Blood sample taken from central line / Unknown (Port) Long-term Catheter / Unknown 01/15/2024 3:31 PM EDT 01/15/2024 4:31 PM EDT Penelope Dodson MD LAB BLOOD ORDERABLES Final Result Performing Organization Address [facility] de Phone Number [facility] [address] [place] [address] * CA 125 (01/15/2024 3:31 PM EDT) CA 125 11.50 <=38.00 U/mL 01/15/2024 5:23 PM EDT [facility] Blood Blood sample taken from central line / Unknown (Port) Long-term Catheter / Unknown 01/15/2024 3:31 PM EDT 01/15/2024 4:31 PM EDT Narrative [facility] - 01/15/2024 5:23 PM EDT Performed by Stephie electrochemiluminescent immunoassay. Results obtained with different test methods or kits cannot be used interchangeably. Penelope Dodson MD LAB BLOOD ORDERABLES Final Result Performing Organization Address [facility] de Phone Number [facility] [address] [place] [address] * (ABNORMAL) Comprehensive metabolic panel (01/15/2024 3:31 PM EDT) Glucose, Plasma 92 74 - 99 mg/dL 01/15/2024 5:11 PM EDT [facility] BUN, Plasma 27(H) 8 - 23 mg/dL 01/15/2024 5:11 PM EDT [facility] Creatinine, Plasma 0.92 0.60 - 1.10 mg/dL 01/15/2024 5:11 PM EDT [facility] BUN/Creatinine Ratio 29 01/15/2024 5:11 PM EDT [facility] Sodium, Plasma 139 136 - 145 mmol/L 01/15/2024 5:11 PM EDT [facility] Potassium, Plasma 4.4 3.7 - 4.8 mmol/L 01/15/2024 5:11 PM EDT [facility] Chloride, Plasma 103 97 - 107 mmol/L 01/15/2024 5:11 PM EDT [facility] CO2, Plasma 24 22 - 29 mmol/L 01/15/2024 5:11 PM EDT [facility] Anion Gap 12 6 - 16 mmol/L 01/15/2024 5:11 PM EDT [facility] Total Calcium, Plasma 9.5 8.9 - 10.2 mg/dL 01/15/2024 5:11 PM EDT [facility] Total Protein 6.7 6.3 - 7.9 g/dL 01/15/2024 5:11 PM EDT [facility] Albumin, Plasma 3.7 3.5 - 5.2 g/dL 01/15/2024 5:11 PM EDT [facility] AST, Plasma 33 10 - 35 U/L 01/15/2024 5:11 PM EDT [facility] ALT, Plasma 38(H) 10 - 35 U/L 01/15/2024 5:11 PM EDT [facility] Alkaline Phosphatase, Plasma 114 46 - 142 U/L 01/15/2024 5:11 PM EDT [facility] Total Bilirubin, Plasma 0.4 0.2 - 1.1 mg/dL 01/15/2024 5:11 PM EDT [facility] eGFRcr 63.9 mL/min/1.7 3m*2 01/15/2024 5:11 PM EDT [facility] Comment:Reported eGFRcr in m L/min/1.73m2 is based the CKD-EPI 2020 equation that does not use a race coefficient. Blood Blood sample taken from central line / Unknown (Port) Long-term Catheter / Unknown 01/15/2024 3:31 PM EDT 01/15/2024 4:31 PM EDT us Penelope Dodson MD LAB BLOOD ORDERABLES Final Result [facility] [address] [place] [address] documented in this encounter Visit Diagnoses Diagnosis Carcinoma of fallopian tube, unspecified laterality (CMS/HCC)- Primary Encounter for antineoplastic chemotherapy Transaminitis Nonspecific elevation of levels of transaminase or lactic acid dehydrogenase (LDH) Neuropathy Mononeuritis of unspecified site documented in this encounter Additional Health Concerns Assessment Noted Time A fall risk assessment has been complete d for the patient 01/15/2024 4:21 PM EDT A Body Mass Index follow-up plan has been documented for the patient 08/19/2022 9:30 AM EST documented as of this encounter Care Teams Boom Stick Worker Relationship Specialty Start Date End Date Flaquita Dorsey DO [address] [place] [address] PCP - General 12/14/21 Aliyah Valencia MD [address] [place] [address] Referring Physician 03/10/21 Conrado Iqbal MD [address] [place] [address] Service Attending Cardiology 08/19/22 documented as of this encounter
--- OUTSIDE RECORDS SUMMARY | 2024-07-10 11:54 | XMS_ITS | Encounter Summary ---
Author Organization Healthcare Address [address] [place] [address] Care Team Providers Care Car Worker Name Role Phone Aliyah Valencia MD Unavailable [phone] Flaquita Dorsey DO Primary Care Provider [phone] Conrado Iqbal MD Unavailable Encounter Details Date Type Department Care Team (Latest Contact Info) Description 02/22/2024 Travel Social History Tobacco Use Types Packs/Day [...] AM EST Office Visit [facility] Gynecology [address] [place] [address] Penelope Carmona MD [address] [facility] [address] [place] [address] 08/05/2024 9:30 AM EST Appointment [facility] [address] [place] [address] 02/26/2025 9:30 AM EDT Appointment [facility] [address] [facility] [address] [place] [address] 02/26/2025 10:30 AM EDT Office Visit [facility] [address] [facility]nd [place] [address] Berenice Resendez, BAKERY CLERK [address] [facility] [address] [facility] [address] [place] [address] documented as of this encounter Visit Diagnoses Not on filedocumented in this encounter Additional Health Concerns Assessment Noted Time A fall risk assessment has been complete d for the patient 02/22/2024 10:48 AM EDT A Body Mass Index follow-up plan has been documented for the patient 08/19/2022 9:30 AM EST documented as of this encounter Care Teams Car Worker Relationship Specialty Start Date End Date Flaquita Drosey DO [address] [place] [address] PCP - General 12/14/21 Aliyah Valencia MD [address] [place] [place] [address] Referring Physician 03/10/21 Conrado Iqbal MD [address] [place] [address] Service Attending Cardiology 08/19/22 documented as of this encounter
--- OUTSIDE RECORDS SUMMARY | 2024-07-10 11:54 | XMS_ITS | Encounter Summary ---
Author Organization Healthcare Address [address] [place] [address] Care Team Providers Care Environmental Engineering Technician Name Role Phone Aliyah Valencia MD Unavailable [phone] Flaquita Dorsey DO Primary Care Provider [phone] Conrado Iqbal MD Unavailable Encounter Details Date Type Department Care Team (Latest Contact Info) Description 02/22/2024 9:36 AM EDT - 02/22/2024 11:59 PM EDT Hospital Encounter [facility] [address] [id number] Malignant neoplasm of left breast in female, estrogen receptor positive, unspecified site of breast (CMS/HCC); Encounter for screening mammogram for malignant neoplasm of breast Discharge Disposition: Home or Self Care Social [...] Sign Reading Time Taken Comments Blood Pressure - - Pulse - - Temperature - - Respiratory Rate - - Oxygen Saturation - - Inhaled Oxygen Concentration - - Weight 76.2 kg (168 lb) 02/22/2024 9:44 AM EDT Height 160 cm (5' 3 ) 02/22/2024 9:44 AM EDT Body Mass Index 29.76 02/22/2024 9:44 AM EDT documented in this encounter Medications at Time of Discharge aspirin 81 MG chewable tablet Chew 1 tablet (81 mg) 1 (one) time each day. ergocalciferol (Vitamin D-2) 1.25 MG (48129 UT) capsule Take 1 capsule (50,000 Units) [...] mouth 1 (one) time each day. gabapentin (Neurontin) 300 MG capsule Take 2 [...] Upcoming Encounters Date Type Department Care Team ([facility] st Contact Info) Description 08/05/2024 8:00 AM EST Office Visit [facility] Gynecology 800 [facility] [address] [place] [address] Penelope Carmona MD 800 [facility] [address] [place] [address] 08/05/2024 9:30 AM EST Appointment [facility] Infusion Clinic 1 [address] [place] [address] 02/26/2025 9:30 AM EDT Appointment [facility] Breast Care [facility] [place] [address] [facility] [facility] [address] [place] [address] 02/26/2025 10:30 AM EDT Office Visit [facility] Breast Care Center 7[address] [facility], 2nd [place] [address] Berenice Resendez, PIT RECORDER 800 [facility] [address] [place] [address] documented as of this encounter Procedures Procedure Name Priority Date/Time Associated Diagnosis Comments MAMMOGRAPHY BREAST SCREENING TOMOSYNTHESIS BILATERAL Routine 02/22/2024 9:57 AM EDT Malignant neoplasm of left breast in female, estrogen receptor positive, unspecified site of breast (CMS/[facility]) Encounter for screening mammogram for malignant neoplasm of breast documented in this encounter Results * Mammography Breast Screening Tomosynthesis Bilateral (02/22/2024 9:57 AM EDT) Anatomical Region Laterality Modality Breast Bilateral Mammography Impressions 02/22/2024 10:19 AM EDT No mammographic evidence of malignancy. BI-RADS CATEGORY: Overall: 2 - Benign RECOMMENDATION: ? - Routine Screening Mammogram in 1 Year. Patient Lifetime Risk Score of Breast Malignancy: A risk score has not been calculated for this patient. This risk assessment is calculated using the Abena Risk Assessment model which may underestimate the lifetime risk of breast malignancy. COMMUNICATION: Computer-aided detection (CAD) and tomosynthesis were utilized by the radiologist in the interpretation of this examination. The results and recommendations will be sent to the patient in a printed lay language version of the imaging report. ?? Narrative 02/22/2024 10:19 AM EDT EXAM: Mammography Breast Screening with Tomosynthesis REASON FOR EXAM: Screening Mammogram HISTORY: Patient is 78 y.o. Family medical history includes breast cancer in 2 relatives (cousin (comments: Family history of malignant neoplasm of breast), cousin (comments: Family history of malignant neoplasm of breast)) and colon cancer in other (comments: Family history of colon cancer). Hormone history includes control (10 years); tamoxifen (5 years) and other (anastrozole 5 years). Surgical and procedural history include left lumpectomy, 2000 (malignant); left lumpectomy, 2017 (malignant); hysterectomy (Hysterectomy from [employer]); left breast surgery, 2000 (malignant); left breast surgery, 2017 (malignant); left breast lumpectomy, 2000 (malignant); and left breast lumpectomy, 2017 (malignant). Medical history includes breast cancer; radiation therapy; and chemotherapy. COMPARISON STUDIES: Compared to: 12/02/2019 Mammography Breast Diagnostic Tomosynthesis Bilateral at [facility] 12/08/2020 Mammography Breast Diagnostic Tomosynthesis Bilateral at [facility] 12/14/2021 Mammography Breast Diagnostic Tomosynthesis Bilateral at [facility] 12/14/2022 Mammography Breast Screening Tomosynthesis Bilateral at [facility] BREAST COMPOSITION: There are scattered areas of fibroglandular density. FINDINGS: There are post-lumpectomy changes present in the left breast. There is no evidence of suspicious masses, calcifications, or other abnormal findings. Berenice Resendez [facility] IM[facility] BI PROCEDURES Final R esult documented in this encounter Visit Diagnoses Diagnosis Malignant neoplasm of left breast in female, estrogen receptor positive, unspecified site of breast ([facility]) Encounter for screening mammogram for malignant neoplasm of breast documented in this encounter Additional Health Concerns Assessment Noted Time A fall risk assessment has been complete d for the patient 02/22/2024 10:48 AM EDT A Body Mass Index follow-up plan has been documented for the patient 08/19/2022 9:30 AM EST documented as of this encounter Care Teams Environmental Engineering Technician Relationship Specialty Start Date End Date Flaquita Dorsey DO [address] [place] [address] PCP - General 12/14/21 Aliyah Valencia MD [address] [place] [place] [address] Referring Physician 03/10/21 Conrado Iqabl MD [address] [place] [address] Service Attending Cardiology 08/19/22 documented as of this encounter
--- OUTSIDE RECORDS SUMMARY | 2024-07-10 11:54 | XMS_ITS | Encounter Summary ---
Author Organization [facility] Address [address] [place], [place] [address] Care Team Providers Care Access Clerk Name Role Phone Aliyah Valencia MD Unavailable Flaquita Dorsey DO Primary Care Provider [phone] Conrado Iqbal MD Unavailable Reason for Visit * Episode Based Medications (Routine) - Authorized Specialty Diagnoses / Procedures Referred By Contac t Referred To Contact Diagnoses Carcinoma of fallopian tube, unspecified laterality (CMS/HCC) Procedures Bevacizumab Every 21 Days Penelope Carmona MD [address] [address] Phone: tel: fax: [facility] Infusion Clinic 2 [address] [place] [address] Phone: tel: Referral ID Status Reason Start Date Expiration Date V isits Requested Visits Authorized [id number] Authorized 03/13/2023 09/11/2024 1 26 Encounter Details Date Type Department Care Team (Latest Contact Info) Description 01/15/2024 4:18 PM EDT - 01/15/2024 11:59 PM EDT Hospital Encounter [facility] 1 [address] [place] [address] Carcinoma of fallopian tube, unspecified laterality (CMS/HCC) (Primary Dx); History of aromatase inhibitor therapy; Osteopenia, unspecified location; Malignant neoplasm of left breast in female, estrogen receptor positive, unspecified site of breast (CMS/HCC) Discharge Disposition: Home or Self Care [...] Sign Reading Time Taken Comments Blood Pressure 117/66 01/15/2024 5:28 PM EDT Pulse 78 01/15/2024 5:28 PM EDT Temperature 36.8 ??C (98.2 ??F) 01/15/2024 4:21 PM ED T Respiratory Rate 18 01/15/2024 4:21 PM EDT Oxygen Saturation 99% 01/15/2024 4:21 PM EDT Inhaled Oxygen Concentration - - Weight 73.7 kg (162 lb 7.7 oz) 01/15/2024 4:21 P M EDT Height 160 cm (5' 3 ) 01/15/2024 4:21 PM EDT Body Mass Index 28.78 01/15/2024 4:21 PM EDT documented in this encounter Medications at Time of Discharge aspirin 81 MG chewable tablet Chew 1 tablet (81 mg) 1 (one) time each day. ergocalciferol (Vitamin D-2) 1.25 MG (04454 UT) capsule Take 1 capsule (50,000 Units) [...] Description 08/05/2024 8:00 AM EST Office Visit [facility] Gynecology 800 [facility] [address] [place] [address] Penelope Carmona MD [address] [facility] [address] [place] [address] 08/05/2024 9:30 AM EST Appointment [facility] 1 [address] [place] [address] 02/26/2025 9:30 AM EDT Appointment [facility] Breast Care Center [facility] [address] [place] [address] 02/26/2025 10:30 AM EDT Office Visit [facility] Breast Care Center 740 [facility], 2nd [place] [address] Berenice Resendez, CLOUD ADMINISTRATOR 800 [facility] [address] [place] [address] documented as of this encounter Visit Diagnoses Diagnosis Carcinoma of fallopian tube, unspecified laterality (CMS/HCC)- Primary History of aromatase inhibitor therapy Osteopenia, unspecified location Malignant neoplasm of left breast in female, estrogen receptor positive, unspecified site of breast (CMS/HCC) documented in this encounter Administered Medications [...] Specific administration requirements refer to [id number]., On Mon01/15/24 at 1700, For 1 dose, NS 100 mLIndications:Carcinoma of fallopian tube, unspecified laterality (CMS/HCC) New Bag 01/15/2024 4:58 PM EDT 1,200 mg 356 mL/hr denosumab (Prolia) 60 MG/ML injection 60 mg 60 mg, Subcutaneous, Once, Avoid vigorous shaking of syringe; Prior to administration, bring to room temperature in original container for about 15 to 30 minutes; Administer via subcutaneous route in upper arm, upper thigh, or abdomen, On Mon01/15/24 at 1730, For 1 doseIndications:History of aromatase inhibitor therapy,Osteopenia, unspecified location,Malignant neoplasm of left breast in female, estrogen receptor positive, unspecified site of breast (CMS/HCC) Given 01/15/2024 5:32 PM EDT 60 mg Right Upper Arm (Back) documented in this encounter Additional Health Concerns Assessment Noted Time A fall risk assessment has been complete d for the patient 01/15/2024 4:21 PM EDT A Body Mass Index follow-up plan has been documented for the patient 08/19/2022 9:30 AM EST documented as of this encounter Care Teams Access Clerk Relationship Specialty Start Date End Date Flaquita Dorsey DO [address] [place], [place] [id number] PCP - General 12/14/21 Aliyah Valencia MD [address] [place] [address] Referring Physician 03/10/21 Conrado Iqbal MD [address] [place] [address] Service Attending Cardiology 08/19/22 documented as of this encounter
--- OUTSIDE RECORDS SUMMARY | 2024-07-10 11:54 | XMS_ITS | Encounter Summary ---
Author Organization [facility] Address [address] [place], [place] [address] Care Team Providers Care Survey Engineer Name Role Phone Aliyah Valencia MD Unavailable [phone] Flaquita Dorsey DO Primary Care Provider [phone] Conrado Iqbal MD Unavailable Encounter Details Date Type Department Care Team (Late st Contact Info) Description 02/06/2024 Telephone [facility] [address] [place] [address] Shy Mcgrath, PharmD [facility] [address] [place] [address] Social History Tobacco Use Types Packs/Day Years [...] Telephone Encounter - Shy Mcgrath, PharmD - 02/06/2024 11:[address] 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 Assessment: Daniela restarted Cyclophosphamide 50mg daily a few days ago. Has a full bottle of 30 pills at home at this time. Doing well, no questions or concerns today. Plan/Patient specific needs: NA Patient/caregiver participated in [...] AM EST Office Visit [facility] 800 [facility] [address] [place] [address] Penelope Carmona MD 800 [facility] [address] [facility] [address] [place] [address] 08/05/2024 9:30 AM EST Appointment [facility] 1 [address] [place] [address] 02/26/2025 9:30 AM EDT Appointment [facility] [place] [address] [address] [facility] 800 [place] [address] 02/26/2025 10:30 AM EDT Office Visit [facility] [address] [facility], 2nd [place] [address] Berenice Resendez, SENIOR HOUSEKEEPER 800 [facility] [address] [place] [address] documented as of this encounter Visit Diagnoses Not on filedocumented in this encounter Additional Health Concerns Assessment Noted Time A fall risk assessment has been complete d for the patient 02/05/2024 4:15 PM EDT A Body Mass Index follow-up plan has been documented for the patient 08/19/2022 9:30 AM EST documented as of this encounter Care Teams Survey Engineer Relationship Specialty Start Date End Date Flaquita Dorsey DO [address] [place] [address] PCP - General 12/14/21 Aliyah Valencia MD [address] [place] [place] [address] Referring Physician 03/10/21 Conrado Iqbal MD [address] [place] [address] Service Attending Cardiology 08/19/22 documented as of this encounter
--- OUTSIDE RECORDS SUMMARY | 2024-07-10 11:54 | XMS_ITS | Encounter Summary ---
Author Organization Healthcare Address [address] [place], [place] [address] Care Team Providers Care Dairy Husbandry Teacher Name Role Phone Aliyah Valencia MD Unavailable [phone] Flaquita Dorsey DO Primary Care Provider [phone]- [phone] Conrado Iqbal MD Unavailable Encounter Details Date Type Department Care Team (Latest Contact Info) Description 01/29/2024 Travel Social History Tobacco Use Types Packs/Day [...] AM EST Office Visit [facility] [address] [place] [address] [address] [place] [address] Penelope Carmona MD 800 [facility] [address] [place] [address] 08/05/2024 9:30 AM EST Appointment [facility] 1 [address] [place] [address] 02/26/2025 9:30 AM EDT Appointment [facility] Radha Lai [facility] 800 [place] [address] 02/26/2025 10:30 AM EDT Office Visit [facility] 740 [facility], 2nd [place] [address] Berenice Resendez, FUSION OPERATOR 800 [facility] [address]ai [facility] [address] [place] [address] documented as of this encounter Visit Diagnoses Not on filedocumented in this encounter Additional Health Concerns Assessment Noted Time A fall risk assessment has been complete d for the patient 01/15/2024 4:21 PM EDT A Body Mass Index follow-up plan has been documented for the patient 08/19/2022 9:30 AM EST documented as of this encounter Care Teams Dairy Husbandry Teacher Relationship Specialty Start Date End Date Flaquita Dorsey DO [address] [place] [address] PCP - General 12/14/21 Aliyah Valencia MD [address] [place] [place] [address] Referring Physician 03/10/21 Conrado Iqbal MD [address] [place] [address] Service Attending Cardiology 08/19/22 documented as of this encounter
[2024-07-10 11:55] VITALS: BMI 28.3
--- OUTSIDE RECORDS SUMMARY | 2024-07-10 11:55 | XMS_ITS | Encounter Summary ---
Author Organization Healthcare Address [address] [place], [place] [address] Care Team Providers Care Printing Roller Handler Name Role Phone Aliyah Valencia MD Unavailable [phone] Flaquita Dorsey DO Primary Care Provider [phone]- [phone] Conrado Iqbal MD Unavailable Encounter Details Date Type Department Care Team (Latest Contact Info) Description 10/04/2023 Travel Social History Tobacco Use Types Packs/Day Years Used Date Smoking Tobacco: Former Cigarettes 0.5 22 1 976 - 1998 Passive Smoke Exposure: Past Smokeless Tobacco: Former Alcohol Use Standard Drinks/Week Comments Not Currently 0 (1 standard drink = 0.6 oz pur e alcohol) PHQ-2 Answer Date Recorded Patient Health Questionnaire-2 Score 0 10/04/2023 PHQ-2A Answer Date Recorded Patient Health Questionnaire-2 [...] AM EST Office Visit [facility] [address] [place] [address] [address] [place] [address] Penelope Carmona MD 800 [facility] [address] [place] [address] 08/05/2024 9:30 AM EST Appointment [facility] 1 [address] [place] [address] 02/26/2025 9:30 AM EDT Appointment [facility] [address]ha Lai [facility] 800 [place] [address] 02/26/2025 10:30 AM EDT Office Visit [facility] 740 [facility], 2nd [place] [address] Berenice Resendez, WEB SIZER 800 [facility] [address] [facility] [address] [place] [address] documented as of this encounter Visit Diagnoses Not on filedocumented in this encounter Additional Health Concerns Assessment Noted Time A fall risk assessment has been complete d for the patient 10/04/2023 1:23 PM EST A Body Mass Index follow-up plan has been documented for the patient 08/19/2022 9:30 AM EST documented as of this encounter Care Teams Printing Roller Handler Relationship Specialty Start Date End Date Flaquita Dorsey DO [address] [place] [address] PCP - General 12/14/21 Aliyah Valencia MD [address] [place] [place] [address] Referring Physician 03/10/21 Conrado Iqbal MD [address] [place] [address] Service Attending Cardiology 08/19/22 documented as of this encounter
--- OUTSIDE RECORDS SUMMARY | 2024-07-10 11:55 | XMS_ITS | Encounter Summary ---
Author Organization Healthcare Address [address] [place] [address] Care Team Providers Care Local Az Truck Driver Name Role Phone Aliyah Valencia MD Unavailable [phone] Flaquita Dorsey DO Primary Care Provider [phone]- [phone] Conrado Iqbal MD Unavailable Encounter Details Date Type Department Care Team (Latest Contact Info) Description 12/06/2023 Travel Social History Tobacco Use Types Packs/Day Years Used Date Smoking Tobacco: Former Cigarettes 0.5 22 1 976 - 1998 Passive Smoke Exposure: Past Smokeless Tobacco: Former Alcohol Use Standard Drinks/Week Comments Not Currently 0 (1 standard drink = 0.6 oz pur e alcohol) PHQ-2 Answer Date Recorded Patient Health Questionnaire-2 Score 0 12/06/2023 PHQ-2A Answer Date Recorded Patient Health Questionnaire-2 [...] AM EST Office Visit [facility] [address] [place] [address] [address] [place] [address] Penelope Carmona MD 800 [facility] [address] [place] [address] 08/05/2024 9:30 AM EST Appointment [facility] 1 [address] [place] [address] 02/26/2025 9:30 AM EDT Appointment [facility] Radha Lai [facility] 800 [place] [address] 02/26/2025 10:30 AM EDT Office Visit [facility] 740 [facility], 2nd [place] [address] Berenice Resendez, PRODUCTION REPRODUCTION MANAGER 800 [facility] [address]ai [facility] [address] [place] [address] documented as of this encounter Visit Diagnoses Not on filedocumented in this encounter Additional Health Concerns Assessment Noted Time A fall risk assessment has been complete d for the patient 12/06/2023 2:01 PM EDT A Body Mass Index follow-up plan has been documented for the patient 08/19/2022 9:30 AM EST documented as of this encounter Care Teams Local Az Truck Driver Relationship Specialty Start Date End Date Flaquita Dorsey DO [address] [place] [address] PCP - General 12/14/21 Aliyah Valencia MD [address] [place] [place] [address] Referring Physician 03/10/21 Conrado Iqbal MD [address] [place] [address] Service Attending Cardiology 08/19/22 documented as of this encounter
--- OUTSIDE RECORDS SUMMARY | 2024-07-10 11:55 | XMS_ITS | Encounter Summary ---
Author Organization Healthcare Address [address] [place], [place] [address] Care Team Providers Care Event Representative Name Role Phone Aliyah Valencia MD Unavailable [phone] Flaquita Dorsey DO Primary Care Provider [phone]- [phone] Conrado Iqbal MD Unavailable Encounter Details Date Type Department Care Team (Latest Contact Info) Description 10/25/2023 Travel Social History Tobacco Use Types Packs/Day Years Used Date Smoking Tobacco: Former Cigarettes 0.5 22 1 976 - 1998 Passive Smoke Exposure: Past Smokeless Tobacco: Former Alcohol Use Standard Drinks/Week Comments Not Currently 0 (1 standard drink = 0.6 oz pur e alcohol) PHQ-2 Answer Date Recorded Patient Health Questionnaire-2 Score 0 10/25/2023 PHQ-2A Answer Date Recorded Patient Health Questionnaire-2 [...] AM EST Office Visit [facility] [address] [place] [address] [address] [place] [address] Penelope Carmona MD 800 [facility] [address] [place] [address] 08/05/2024 9:30 AM EST Appointment [facility] 1 [address] [place] [address] 02/26/2025 9:30 AM EDT Appointment [facility] Radha Lai [facility] 800 [place] [address] 02/26/2025 10:30 AM EDT Office Visit [facility] 740 [facility], 2nd [place] [address] Berenice Resendez, ANTI AIR WARFARE OPERATIONS OFFICER 800 [facility] [address]ai [facility] [address] [place] [address] documented as of this encounter Visit Diagnoses Not on filedocumented in this encounter Additional Health Concerns Assessment Noted Time A fall risk assessment has been complete d for the patient 10/25/2023 2:44 PM EDT A Body Mass Index follow-up plan has been documented for the patient 08/19/2022 9:30 AM EST documented as of this encounter Care Teams Event Representative Relationship Specialty Start Date End Date Flaquita Dorsey DO [address] [place] [address] PCP - General 12/14/21 Aliyah Valencia MD [address] [place] [place] [address] Referring Physician 03/10/21 Conrado Iqbal MD 800 [place] [address] Service Attending Cardiology 08/19/22 documented as of this encounter
--- OUTSIDE RECORDS SUMMARY | 2024-07-10 11:55 | XMS_ITS | Encounter Summary ---
Author Organization [facility] Address [address] [place], [place] [id number] Care Team Providers Care Dust Mop Maker Name Role Phone Aliyah Valencia MD Unavailable [phone] Flaquita Dorsey DO Primary Care Provider [phone] Conrado Iqbal MD Unavailable Reason for Visit * Episode Based Medications (Routine) - Authorized Specialty Diagnoses / Procedures Referred By Contac t Referred To Contact Diagnoses Carcinoma of fallopian tube, unspecified laterality (CMS/HCC) Procedures Bevacizumab Every 21 Days Penelope Carmona MD [address] [address] Phone: tel: fax: [facility] [address] [place] [address] Phone: tel: Referral ID Status Reason Start Date Expiration Date V isits Requested Visits Authorized [id number] Authorized 03/13/2023 09/11/2024 1 26 Encounter Details Date Type Department Care Team (Latest Contact Info) Description 12/27/2023 1:58 PM EDT - 12/27/2023 11:59 PM EDT Hospital Encounter [facility] [address] [place] [address] Carcinoma of fallopian tube, unspecified [...] Sign Reading Time Taken Comments Blood Pressure 116/76 12/27/2023 2:00 PM EDT Pulse 77 12/27/2023 2:00 PM EDT Temperature 36.6 ??C (97.9 ??F) 12/27/2023 2:00 PM ED T Respiratory Rate 16 12/27/2023 2:00 PM EDT Oxygen Saturation 97% 12/27/2023 2:00 PM EDT Inhaled Oxygen Concentration - - Weight 76.7 kg (169 lb 1.5 oz) 12/27/2023 2:00 P M EDT Height 160 cm (5' 3 ) 12/27/2023 2:00 PM EDT Body Mass Index 29.95 12/27/2023 2:00 PM EDT documented in this encounter Medications at Time of Discharge aspirin 81 MG chewable tablet Chew 1 tablet (81 mg) 1 (one) time each day. ergocalciferol (Vitamin D-2) 1.25 MG (03729 UT) capsule Take 1 capsule (50,000 Units) [...] AM EST Office Visit [facility] 800 [facility] [address] [place] [id number] Penelope Carmona MD 800 [facility] [address] [facility] [address] [place] [address] 08/05/2024 9:30 AM EST Appointment [facility] [address] [place] [address] 02/26/2025 9:[address] [facility] [place] [address] [address] [facility] [address] [place] [address] 02/26/2025 10:30 AM EDT Office Visit [facility] 740 [facility], [address]nd [place] [address] Berenice Resendez, SANITATION SUPERVISOR [address] [place] [address] documented as of this encounter Visit Diagnoses [...] Specific administration requirements refer to A14-065., On Mon12/27/23 at 1515, For 1 dose, NS 100 mLIndications:Carcinoma of fallopian tube, unspecified laterality (CMS/HCC) New Bag 12/27/2023 3:41 PM EDT 1,200 mg 356 mL/hr documented in this encounter Additional Health Concerns Assessment Noted Time A fall risk assessment has been complete d for the patient 12/27/2023 2:00 PM EDT A Body Mass Index follow-up plan has been documented for the patient 08/19/2022 9:30 AM EST documented as of this encounter Care Teams Dust Mop Maker Relationship Specialty Start Date End Date Flaquita Dorsey DO [address] [place] [address] PCP - General 12/14/21 Aliyah Valencia MD [address] [place] [address] Referring Physician 03/10/21 Conrado Iqbal MD [address] [place] [address] Service Attending Cardiology 08/19/22 documented as of this encounter
--- OUTSIDE RECORDS SUMMARY | 2024-07-10 11:55 | XMS_ITS | Encounter Summary ---
Author Organization [facility] Address [address] [place], [place] [address] Care Team Providers Care Solar Sales Energy Advisor Name Role Phone Aliyah Valencia MD Unavailable [phone] Flaquita Dorsey DO Primary Care Provider [phone] Conrado Iqbal MD Unavailable Reason for Visit * Episode Based Medications (Routine) - Authorized Specialty Diagnoses / Procedures Referred By Contac t Referred To Contact Diagnoses Carcinoma of fallopian tube, unspecified laterality (CMS/HCC) Procedures Bevacizumab Every 21 Days Penelope Carmona MD [address] [address] Phone: tel: fax: [facility] [address] [place] [address] Phone: tel: Referral ID Status Reason Start Date Expiration Date V isits Requested Visits Authorized [id number] Authorized 03/13/2023 09/11/2024 1 26 Encounter Details Date Type Department Care Team (Latest Contact Info) Description 10/04/2023 1:20 PM EST - 10/04/2023 11:59 PM EST Hospital Encounter [facility] [address] [place] [address] Carcinoma of fallopian tube, unspecified [...] Sign Reading Time Taken Comments Blood Pressure 120/72 10/04/2023 3:44 PM EST Pulse 80 10/04/2023 3:44 PM EST Temperature 36.7 ??C (98.1 ??F) 10/04/2023 1:22 PM ES T Respiratory Rate 18 10/04/2023 1:22 PM EST Oxygen Saturation 100% 10/04/2023 1:22 PM EST Inhaled Oxygen Concentration - - Weight 76 kg (167 lb 8.8 oz) 10/04/2023 1:22 PM EST Height 161.3 cm (5' 3.5 ) 10/04/2023 1:22 PM EST Body Mass Index 29.21 10/04/2023 1:22 PM EST documented in this encounter Medications at Time of Discharge aspirin 81 MG chewable tablet Chew 1 tablet (81 mg) 1 (one) time each day. ergocalciferol (Vitamin D-2) 1.25 MG (17990 UT) capsule Take 1 capsule (50,000 Units) [...] by mouth 1 (one) time each day. 10/24/202 4 cyclophosphamide (Cytoxan) 50 MG capsule capsule Take 1 capsule (50 mg) by mouth 1 (one) time each day. 30 capsule 3 09/13/2023 4 Flaxseed, Linseed, (Flaxseed Oil) 1000 MG capsule Take 1 tablet by mouth 1 (one) time each day. 4 gabapentin (Neurontin) 400 MG capsule Take 1 capsule (400 mg) by mouth 3 (three) times a day. 90 capsule 3 08/23/2023 4 nitroglycerin (Nitrostat) 0.4 MG SL tablet [...] AM EST Office Visit [facility] 800 [facility] [address] [place] [address] Penelope Carmona MD 800 [facility] [address] [facility] [address] [place] [address] 08/05/2024 9:30 AM EST Appointment [facility] 1 [address] [place] [address] 02/26/2025 9:30 AM EDT Appointment [facility] [address] [facility] [address] [place] [address] 02/26/2025 10:30 AM EDT Office Visit [facility] 7[address] [facility], [address] [place] [address] Berenice Resendez, ELECTRONIC COMPONENTS ASSEMBLER 800 [facility] [address] [place] [address] documented as of this encounter [...] Specific administration requirements refer to A14-065., On Mon10/04/23 at 1500, For 1 dose, NS 100 mLIndications:Carcinoma of fallopian tube, unspecified laterality (CMS/HCC) New Bag 10/04/2023 3:15 PM EST 1,200 mg 356 mL/hr documented in this encounter Additional Health Concerns Assessment Noted Time A fall risk assessment has been complete d for the patient 10/04/2023 1:23 PM EST A Body Mass Index follow-up plan has been documented for the patient 08/19/2022 9:30 AM EST documented as of this encounter Care Teams Solar Sales Energy Advisor Relationship Specialty Start Date End Date Flaquita Dorsey DO [address] [place] [address] PCP - General 12/14/21 Aliyah Valencia MD [address] [place] [address] Referring Physician 03/10/21 Conrado Iqbal MD [address] [place] [address] Service Attending Cardiology 08/19/22 documented as of this encounter
--- OUTSIDE RECORDS SUMMARY | 2024-07-10 11:55 | XMS_ITS | Encounter Summary ---
Author Organization Healthcare Address [address] [place] [address] Care Team Providers Care Publicist Name Role Phone Aliyah Valencia MD Unavailable [phone] Flaquita Dorsey DO Primary Care Provider [phone] Conrado Iqbal MD Unavailable Encounter Details Date Type Department Care Team (Latest Contact Info) Description 10/17/2023 Travel Social History Tobacco Use Types Packs/Day [...] AM EST Office Visit [facility] [address] [place] [address] [place] [address] Penelope Carmona MD [address] [facility] [address] [place] [address] 08/05/2024 9:30 AM EST Appointment [facility] [address] [place] [address] 02/26/2025 9:30 AM EDT Appointment [facility] [address] [facility] [address] [place] [address] 02/26/2025 10:30 AM EDT Office Visit [facility] [address] [facility], [address] [place] [address] Berenice Resendez, SOUND ENGINEERING TECHNICIAN [address] [facility] [address] [facility] [address] [place] [address] documented as of this encounter Visit Diagnoses Not on filedocumented in this encounter Additional Health Concerns Assessment Noted Time A fall risk assessment has been complete d for the patient 10/04/2023 1:23 PM EST A Body Mass Index follow-up plan has been documented for the patient 08/19/2022 9:30 AM EST documented as of this encounter Care Teams Publicist Relationship Specialty Start Date End Date Flaquita Dorsey DO [address] [place] [address] PCP - General 12/14/21 Aliyah Valencia MD [address] [place] [address] Referring Physician 03/10/21 Conrado Iqbal MD [address] [place] [address] Service Attending Cardiology 08/19/22 documented as of this encounter
--- OUTSIDE RECORDS SUMMARY | 2024-07-10 11:55 | XMS_ITS | Encounter Summary ---
Author Organization Healthcare Address [address] [place], [place] [id number] Care Team Providers Care Lead Trainer Name Role Phone Aliyah Valencia MD Unavailable [phone] Flaquita Dorsey DO Primary Care Provider [phone] Conrado Iqbal MD Unavailable Reason for Visit * Reason Comments Chemotherapy Encounter Details Date Type Department Care Team ([facility] st Contact Info) Description 12/06/2023 1:45 PM EDT Office Visit [facility] Gynecology [address] [facility] [address] [place] [address] Penelope Carmona MD [address] [facility] [address] [facility] [address] [place] [address] Carcinoma of fallopian tube, unspecified laterality (CMS/HCC) (Primary Dx); Encounter for antineoplastic chemotherapy; Vaginal bleeding Social History Tobacco Use Types [...] Sign Reading Time Taken Comments Blood Pressure 121/63 12/06/2023 1:33 PM EDT Pulse 83 12/06/2023 1:33 PM EDT Temperature 36.4 ??C (97.5 ??F) 12/06/2023 1:33 PM ED T Respiratory Rate 16 12/06/2023 1:33 PM EDT Oxygen Saturation 93% 12/06/2023 1:33 PM EDT Inhaled Oxygen Concentration - - Weight 74.2 kg (163 lb 9.3 oz) 12/06/2023 1:33 P M EDT Height 161.3 cm (5' 3.5 ) 12/06/2023 1:33 PM EDT Body Mass Index 28.52 12/06/2023 1:33 PM EDT documented in this encounter Miscellaneous Notes * Progress Notes - Penelope Carmona MD - 12/06/2023 1:45 PM EDT Primary Care Provider: Flaquita Dorsey [...] were negative for metastatic disease. ER and SD were strongly positive and HER-2 was negative. [...] ER positive in 90% of the cells, SD positive in 95% of cells andHER-2 negative by IHC at 0. On 10/04/2016 she underwent a left needle localized lumpectomy. [place] lymph node biopsy was not performed as [...] vagina). Initiated neoadjuvant chemo with carbo/Taxol per PRODUCTION FINISHER followed by BSO/Omentectomy and adjuvant Carbotaxol. Recurrence in March 2019. Treated with carbo initially followed by Olaparib. 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 She is currently off of therapy. She follows with Dr. Hutchins in [facility]. 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 Recurrence - First recurrence, match-e-be-nash-she-wish band sensitive - CT 04/10/19 with 3 cmlesion at cuff - Ca125 12 (from 8) - MTB discussion: recommend trial if progression on match-e-be-nash-she-wish band regimen or consider Parp for RAD [...] ccy for choledocolithiasis 2019 (SGB) - Ca125: 24-7-7-7-7-9-8 - Started Parp inhibitor 09/2019 - Dose [...] 7.49 (21) 06/30/2021 Recurrence - Third recurrence, match-e-be-nash-she-wish band sensitive - CT 06/30/2021 shows vaginal [...] disease seen 04/11/2022 Recurrence - Fourth recurrence, match-e-be-nash-she-wish band resistant - CT 04/11/2022 with increase [...] Chemotherapy - Avastin started 03/20/2023 - Ca125 7.38-7.51-6.5-6.71-6.26-6.58-6.94-6.72-6.86-8.12 - CT 06/16/2023: Stable to decreased size of vaginal cuff disease, no other new findings - CT 10/17/2022: Stable vaginal cuff lesion, increasing retroperitoneal adenopathy Interval updates to history: Oncologic treatment history as described above reviewed today as well as PMH/PSH/Meds/All/SH/FH, with updates made as appropriate. Patient is here today for cycle 13 of Dana. Doing well. Sister had TN on way home from last chemo and ended up in the hospital and requiring5 stents. Now home and doing well. Patient herself doing well. No chest pain. No diarrhea episodes.Bleeding has been light. Appetite is normal. No N/V. PMH: h/o breast cancer x2, ?cervical cancer, [...] years ago, no drugs, retired, lives in [place]. FamHx: Father-prostate, MGma-colon. ROS: 14 pt ROS performed with pertinent positives and negatives as noted in HPI. ROS otherwise negative Objective Physical Exam: Vital Signs for this encounter: BSA: 1.82 meters squared Visit Vitals BP 121/63 (BP Location: Right arm, Patient Position: Sitting, BP Cuff Size: Adult) Pulse 83 Temp 36.4 ??C (97.5 ??F) (Temporal) Resp 16 Ht 1.613 m (5' 3.5 ) Wt 74.2 kg (163 lb 9.3 oz) LMP 11/17/1981 (Approximate) SpO2 93% BMI 28.52 kg/m?? OB Status Hysterectomy Smoking Status Former BSA 1.82 m?? Physical Exam Vitals and nursing note reviewed. Constitutional: General: She is not in acute distress. Appearance: Normal appearance. She is well-developed. She is not ill-appearing or diaphoretic. HENT: Head: Normocephalic and atraumatic. Eyes: General: No scleral icterus. Conjunctiva/sclera: Conjunctivae normal. Cardiovascular: Rate and Rhythm: Normal rate. Pulmonary: Effort: Pulmonary effort is normal. No respiratory distress. Breath sounds: Normal breath sounds. Abdominal: General: There is no distension. Palpations: Abdomen is soft. Tenderness: There is no abdominal tenderness. Musculoskeletal: General: No signs of injury. Cervical back: Neck supple. Skin: General: Skin is warm and dry. Coloration: Skin is not jaundiced. Findings: No bruising. Neurological: Mental Status: She is alert and oriented to person, place, and time. Mental status is at baseline. Psychiatric: Mood and Affect: Mood normal. Behavior: Behavior normal. Thought Content: Thought content normal. Judgment: Judgment normal. Performance Status: Asymptomatic PS= 0 Results: CBC WBC 4.49 Hgb 13.3 PLT 196 HCT 40.1 Lab Results Component Value Date NEUTROABS 3.29 11/15/2023 BASIC METABOLIC PANEL Na 137 Cl 102 BUN 23 Gluc 110 K 3.8 Co2 26 Creat 0.90 LIVER FUNCTION TESTING Tot Prot 6.9 AST 27 Tot bili 0.4 ALT 14 Alkphos 70 Ca 9.4 Mg 1.4 Phos No results found for requested labs [...] by radiation for additional recurrence - Now match-e-be-nash-she-wish band resistant - Started Dana/oral Cytoxan, held Dana after cycle 4 due to Chest pain - CT after 4 cycles showed interval resolution of vaginal mass and no further disease. - At visit 08/2022: Patient had additional CP episode and heart cath subsequently performed. No severe disease noted and lvn home health reports ok to continue Dana. However, also [...] so will continue with repeat CT in 3 cycles to assess stability - Cycle 13 of Dana today. Continue Cytoxan. Cyclic Ca125 monitoring with imaging q 3-4 cycles. (Check scan after cycle 14) Problem 2: Encounter for chemotherapy Assessment and plan 2: - Proceed with cycle 13 of Bevacizumab 15 mg/kg today. Plan q [...] - Now minimal ( trace ) after 12 cycles of Dana. Monitor. Problem 4: History of left breast cancer x 2 Assessment and plan 4: - s/p anastrazole. No current signs of disease. Follows up with breast clinic (recent visit JARED) Problem 5: Neuropathy Assessment and plan 5: - Treatment related. - Will not use Taxol again. - Gabapentin 400 mg TID, continue, stable symptoms. Problem 6: h/o syncope episodes and carotid stenosis, now with chest tightness over 2021, in July 2022, 10/28/2022, 12/15/2022, 04/2023 Assessment and plan 6: - Has been followed in past with cards at - Seen by cardiology at [facility] and acute workup negative but diagnostic [...] April 2023 - ED workup negative for TN - No further episodes since last cycle [...] with low threshold to stop cytoxan. - Most recent labs are normal Problem 9: History of cervical cancer Assessment [...] discussion of plan of care, lab orders, phlebotomy Penelope Dodson MD * Progress Notes - Aliyah Saravia, PharmD - 12/06/2023 1:45 PM EDT Pharmacy Hematology/Oncology Treatment Plan Note [...] from 05/28/2001: pT1c, pN0, cM0, G2, ER+, SD+, HER2: Unknown - Signed by Cara Greene MD on 06/19/2021 - Pathologic stage from 10/05/2016: Stage Unknown (rpT1c, pNX, cM0, G2, ER+, SD+, HER2-) - Signed by Cara Greene MD on 06/19/2021 Study Patient: No Treatment Protocol: Bevacizumab IV every 21 days + continuous PO cytoxan Treatment Plan reviewed for: [x] Follow-Up Clinical Review Cycle 12 Day 1 [x] Follow-Up Clinical Review for Continuous Oral Therapy Interval History: Ms. John was seen by team in clinic. UA demonstrated trace protein will continue to monitor. Patient endorses mainly fatigue, but relates it to recent adjustments in her thyroid medication. It sounds like she is following very closely with Dr. Granda for endocrinology. She also describes significant eye pain/sensitivity to light attributed to thyroid disease for which she has seen both an director digital catalogue and a physician who specializes in thyroid eye diseases. She reports a stable BP and noother treatment related concerns. Dosing Wt: 84 kg Today's Wt: Wt Readings from Last 1 Encounters: 12/06/23 74.2 kg (163 lb 9.3 oz) Dosing Ht: 160 cm Dosing BSA: 1.88 m2 Recent Labs: Lab Results Component Value Date WBC 4.49 11/15/2023 HGB 13.3 11/15/2023 HCT 40.1 11/15/2023 MCV 106 (H) 11/15/2023 PLT 196 11/15/2023 Lab Results Component Value Date GLUCOSE 110 (H) 11/15/2023 CALCIUM 9.4 11/15/2023 NA 137 11/15/2023 K 3.8 11/15/2023 CO2 26 11/15/2023 CL 102 11/15/2023 BUN 23 11/15/2023 CREATININE 0.90 11/15/2023 Lab Results Component Value Date ALT 14 11/15/2023 AST 27 11/15/2023 ALKPHOS 70 11/15/2023 BILITOT 0.4 11/15/2023 Lab Results Component Value Date NEUTROABS 3.29 11/15/2023 Lab Results Component Value Date MG 1.4 (L) 01/09/2023 No results found for: TSH Lab Results Component Value Date URINEPRO Negative 11/15/2023 Vitals: Vitals: 12/06/23 1333 BP: 121/63 Pulse: 83 Resp: 16 Temp: 36.4 ??C (97.5 ??F) SpO2: 93% Other Relevant Monitoring: None Treatment Plan: Cyclophosphamide 50 mg daily Bevacizumab 15 mg/kg (1200 mg) IV D1 Every 21 days + Denosumab q 6 months (LD 08/02/23, next due 12/2023) [x] No dose adjustments made Current Treatment Plan History: Oral Cyclophosphamide 50 mg daily (08/31/22 - present) Bevacizumab Cycle 1: 03/20/23 Cycle 2: 04/10/23 Cycle 3: 05/08/23 Cycle 4: 05/29/23 Cycle 5: 06/19/23 Cycle 6: 07/10/23 Cycle 7: 08/02/23 Cycle 8: 08/23/23 Cycle 9: 09/13/23 Cycle 10: 10/04/23 Cycle 11: 10/25/23 Cycle 12: 11/15/23 Cycle 13: 12/06/23 Prior Chemotherapy History: hormone therapy for prior [...] 3 weeks. Will follow-up at that time. Aliyah Saravia, WarrenD, BCPS documented in this encounter Plan of Treatment Upcoming Encounters Date Type Department Care Team (Late st Contact Info) Description 08/05/2024 8:00 AM EST Office Visit [facility] Gynecology [address] [facility] [address] [place] [address] Penelope Carmona MD [address] [facility] [address] [facility] [address] [place] [address] 08/05/2024 9:30 AM EST Appointment [facility] [address] [place] [address] 02/26/2025 9:30 AM EDT Appointment [facility] [place] [address] [facility] [address] [place] [address] 02/26/2025 10:30 AM EDT Office Visit [facility] [address] [place] [address] Berenice Resendez, CROP CONSULTANT [address] [place] [address] documented as of this encounter Procedures Procedure Name Priority Date/Time Associated Diagnosis Comments CBC WITH AUTO DIFFERENTIAL Routine 12/06/2023 1:44 PM EDT Carcinoma of fallopian tube, unspecified laterality (CMS/HCC) CA 125 Routine 12/06/2023 1:44 PM EDT Carcinoma of fallopian tube, unspecified laterality (CMS/HCC) COMPREHENSIVE METABOLIC PANEL, PLASMA Routine 12/06/2023 1:44 PM EDT Carcinoma of fallopian tube, unspecified laterality (CMS/HCC) documented in this encounter Results * CA 125 (12/06/2023 1:44 PM EDT) CA 125 9.55 <=38.00 U/mL 12/06/2023 3:26 PM EDT [facility] Blood Blood sample taken from central line / Unknown (Port) Long-term Catheter / Unknown 12/06/2023 1:44 PM EDT 12/06/2023 2:49 PM EDT Narrative [facility] - 12/06/2023 3:26 PM EDT Performed by Stephie electrochemiluminescent immunoassay. Results obtained with different test methods or kits cannot be used interchangeably. us Penelope Dodson MD LAB BLOOD ORDERABLES Final Result [facility] [address] [place] [address] * (ABNORMAL) Comprehensive metabolic panel (12/06/2023 1:44 PM EDT) Glucose, Plasma 73(L) 74 - 99 mg/dL 12/06/2023 3:18 PM EDT [facility] BUN, Plasma 24(H) 8 - 23 mg/dL 12/06/2023 3:18 PM EDT [facility] Creatinine, Plasma 0.84 0.60 - 1.10 mg/dL 12/06/2023 3:18 PM EDT [facility] BUN/Creatinine Ratio 29 12/06/2023 3:18 PM EDT [facility] Sodium, Plasma 141 136 - 145 mmol/L 12/06/2023 3:18 PM EDT [facility] Potassium, Plasma 4.1 3.7 - 4.8 mmol/L 12/06/2023 3:18 PM EDT [facility] Chloride, Plasma 106 97 - 107 mmol/L 12/06/2023 3:18 PM EDT [facility] CO2, Plasma 22 22 - 29 mmol/L 12/06/2023 3:18 PM EDT [facility] Anion Gap 13 6 - 16 mmol/L 12/06/2023 3:18 PM EDT [facility] Total Calcium, Plasma 9.4 8.9 - 10.2 mg/dL 12/06/2023 3:18 PM EDT [facility] Total Protein 6.9 6.3 - 7.9 g/dL 12/06/2023 3:18 PM EDT [facility] Albumin, Plasma 4.0 3.5 - 5.2 g/dL 12/06/2023 3:18 PM EDT [facility] AST, Plasma 25 10 - 35 U/L 12/06/2023 3:18 PM EDT [facility] ALT, Plasma 17 10 - 35 U/L 12/06/2023 3:18 PM EDT [facility] Alkaline Phosphatase, Plasma 67 46 - 142 U/L 12/06/2023 3:18 PM EDT [facility] Total Bilirubin, Plasma 0.5 0.2 - 1.1 mg/dL 12/06/2023 3:18 PM EDT [facility] eGFRcr 71.2 mL/min/1.7 3m*2 12/06/2023 3:18 PM EDT [facility] Comment:Reported eGFRcr in m L/min/1.73m2 is based the CKD-EPI 2020 equation that does not use a race coefficient. Blood Blood sample taken from central line / Unknown (Port) Long-term Catheter / Unknown 12/06/2023 1:44 PM EDT 12/06/2023 2:49 PM EDT us Penelope Dodson MD LAB BLOOD ORDERABLES Final [facility] [address] [place] [address] * (ABNORMAL) CBC and differential (12/06/2023 1:44 PM EDT) WBC Count 4.36 3.70 - 10.30 10*3/uL LAB HEMATOLOGY METHOD 12/06/2023 2:44 PM EDT [facility] RBC Count 3.62(L) 3.90 - 5.20 10*6/uL LAB HEMATOLOGY METHOD 12/06/2023 2:44 PM EDT [facility] HGB 12.7 11.2 - 15.7 g/dL LAB HEMATOLOGY METHOD 12/06/2023 2:44 PM EDT [facility] HCT 39.0 34.0 - 45.0 % LAB HEMATOLOGY METHOD 12/06/2023 2:44 PM EDT [facility] Platelet Count 168 155 - 369 10*3/uL LAB HEMATOLOGY METHOD 12/06/2023 2:44 PM EDT [facility] MCV 108(H) 79 - 98 fL LAB HEMATOLOGY METHOD 12/06/2023 2:44 PM EDT [facility] MCH 35.1(H) 26.0 - 32.0 pg LAB HEMATOLOGY METHOD 12/06/2023 2:44 PM EDT [facility] MCHC 32.6 30.7 - 35.5 g/dL LAB HEMATOLOGY METHOD 12/06/2023 2:44 PM EDT [facility] RDW 15.2(H) 11.5 - 14.5 % LAB HEMATOLOGY METHOD 12/06/2023 2:44 PM EDT [facility] MPV 9.3 8.8 - 12.5 fL LAB HEMATOLOGY METHOD 12/06/2023 2:44 PM EDT [facility] nRBC 0.0 <=0.0 per 100 WBCs LAB HEMATOLOGY METHOD 12/06/2023 2:44 PM EDT [facility] Differential Type Automated LAB HEMATOLOGY METHOD 12/06/2023 2:44 PM EDT [facility] Neutrophils % 69.0 % LAB HEMATOLOGY METHOD 12/06/2023 2:44 PM EDT [facility] Lymphocytes % 17.0 % LAB HEMATOLOGY METHOD 12/06/2023 2:44 PM EDT [facility] Monocytes % 8.0 % LAB HEMATOLOGY METHOD 12/06/2023 2:44 PM EDT [facility] Eosinophils % 4.0 % LAB HEMATOLOGY METHOD 12/06/2023 2:44 PM EDT [facility] Basophils % 1.0 % LAB HEMATOLOGY METHOD 12/06/2023 2:44 PM EDT [facility] Immature Granulocytes % 1.0 % LAB HEMATOLOGY METHOD 12/06/2023 2:44 PM EDT [facility] Neutrophils Absolute 3.02 1.60 - 6.10 10*3/uL LAB HEMATOLOGY METHOD 12/06/2023 2:44 PM EDT [facility] Lymphocytes Absolute 0.74(L) 1.20 - 3.90 10*3/uL LAB HEMATOLOGY METHOD 12/06/2023 2:44 PM EDT [facility] Monocytes Absolute 0.35 0.30 - 0.90 10*3/uL LAB HEMATOLOGY METHOD 12/06/2023 2:44 PM EDT [facility] Eosinophils Absolute 0.19 0.00 - 0.50 10*3/uL LAB HEMATOLOGY METHOD 12/06/2023 2:44 PM EDT [facility] Basophils Absolute 0.03 0.00 - 0.10 10*3/uL LAB HEMATOLOGY METHOD 12/06/2023 2:44 PM EDT [facility] Immature Granulocytes Absolute 0.03 0.00 - 0.06 10*3/uL LAB HEMATOLOGY METHOD 12/06/2023 2:44 PM EDT [facility] Blood Blood sample taken from central line / Unknown (Port) Long-term Catheter / Unknown 12/06/2023 1:44 PM EDT 12/06/2023 2:41 PM EDT Narrative [facility] - 12/06/2023 2:44 PM EDT Therapeutic decision making should be based on absolute values, rather than percentages. us Penelope Dodson MD LAB BLOOD ORDERABLES Final Result [facility] [address] [place] [address] documented in this encounter Visit Diagnoses Diagnosis [...] documented as of this encounter Care Teams Lead Trainer Relationship Specialty Start Date End Date Flaquita Dorsey DO [address] [place], [place] [id number] PCP - General 12/14/21 Aliyah Valencia MD [address] [place] [address] Referring Physician 03/10/21 Conrado Iqbal MD [address] [place] [address] Service Attending Cardiology 08/19/22 documented as of this encounter
--- OUTSIDE RECORDS SUMMARY | 2024-07-10 11:55 | XMS_ITS | Encounter Summary ---
Author Organization Healthcare Address [address] [place] [address] Care Team Providers Care Vocational Examiner Name Role Phone Aliyah Valencia MD Unavailable [phone] Flaquita Dorsey DO Primary Care Provider [phone]- [phone] Conrado Iqbal MD Unavailable Encounter Details Date Type Department Care Team (Latest Contact Info) Description 11/15/2023 Travel Social History Tobacco Use Types Packs/Day Years Used Date Smoking Tobacco: Former Cigarettes 0.5 22 1 976 - 1998 Passive Smoke Exposure: Past Smokeless Tobacco: Former Alcohol Use Standard Drinks/Week Comments Not Currently 0 (1 standard drink = 0.6 oz pur e alcohol) PHQ-2 Answer Date Recorded Patient Health Questionnaire-2 Score 0 11/15/2023 PHQ-2A Answer Date Recorded Patient Health Questionnaire-2 [...] AM EST Office Visit [facility] Gynecology [address] [address] [place] [address] Penelope Carmona MD [address] [facility] [address] [place] [address] 08/05/2024 9:30 AM EST Appointment [facility] [address] [place] [address] 02/26/2025 9:30 AM EDT Appointment [facility] [address] [facility] [address] [place] [address] 02/26/2025 10:30 AM EDT Office Visit [facility] [address] [facility] [place] [address] Berenice Resendez, [employer]OUNT[employer]ER ASSEMBLER [address] [facility] [address] [facility] [address] [place] [address] documented as of this encounter Visit Diagnoses Not on filedocumented in this encounter Additional Health Concerns Assessment Noted Time A fall risk assessment has been complete d for the patient 11/15/2023 2:07 PM EDT A Body Mass Index follow-up plan has been documented for the patient 08/19/2022 9:30 AM EST documented as of this encounter Care Teams Vocational Examiner Relationship Specialty Start Date End Date Flaquita Dorsey DO [address] [place] [address] PCP - General 12/14/21 Aliyah Valencia MD [address] [place] [place] [address] Referring Physician 03/10/21 Conardo Iqbal MD [address] [place] [address] Service Attending Cardiology 08/19/22 documented as of this encounter
--- OUTSIDE RECORDS SUMMARY | 2024-07-10 11:55 | XMS_ITS | Encounter Summary ---
Author Organization Healthcare Address [address] [place], [place] [id number] Care Team Providers Care Inkjet Operator Name Role Phone Aliyah Valencia MD Unavailable [phone] Flaquita Dorsey DO Primary Care Provider [phone] Conrado Iqbal MD Unavailable Reason for Visit * Reason Comments Chemotherapy Encounter Details Date Type Department Care Team ([facility] st Contact Info) Description 10/25/2023 2:00 PM EDT Office Visit [facility] Gynecology 800 [facility] [address] [place] [address] Penelope Carmona MD 800 [facility] [address] [facility] [address] [place] [address] Carcinoma of fallopian tube, unspecified [...] Sign Reading Time Taken Comments Blood Pressure 113/68 10/25/2023 1:51 PM EDT Pulse 88 10/25/2023 1:51 PM EDT Temperature 36.8 ??C (98.2 ??F) 10/25/2023 1:51 PM ED T Respiratory Rate 16 10/25/2023 1:51 PM EDT Oxygen Saturation 95% 10/25/2023 1:51 PM EDT Inhaled Oxygen Concentration - - Weight 76 kg (167 lb 8.8 oz) 10/25/2023 1:51 PM EDT Height 161.3 cm (5' 3.5 ) 10/25/2023 1:51 PM EDT Body Mass Index 29.21 10/25/2023 1:51 PM EDT documented in this encounter Miscellaneous Notes * Progress Notes - Penelope Carmona MD - 10/25/2023 2:00 PM EDT Primary Care Provider: Flaquita Dorsey DO History of Present Illness: Chief complaint: 78 yo female here for clearance for and 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 Oncologic history is as follows: Oncology History [...] were negative for metastatic disease. ER and ID were strongly positive and HER-2 was negative. [...] ER positive in 90% of the cells, ID positive in 95% of cells andHER-2 negative by IHC at 0. On 10/04/2016 she underwent a left needle localized lumpectomy. [place] lymph node biopsy was not performed as [...] vagina). Initiated neoadjuvant chemo with carbo/Taxol per AIRLINE SECURITY REPRESENTATIVE followed by BSO/Omentectomy and adjuvant Carbotaxol. Recurrence in March 2019. Treated with carbo initially followed by Olaparib. 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 She is currently off of therapy. She follows with Dr. Hutchins in [place]. Malignant neoplasm of left breast in female, estrogen receptor positive (CMS/HCC) 05/28/2001 Cancer Staged Staging form: Breast, AJCC 8th Edition, Pathologic stage from 05/28/2001: pT1c, pN0, cM0, G2, ER+, ID+, HER2: Unknown - Signed by Cara Greene MD on 06/19/2021 10/05/2016 Cancer Staged Staging form: Breast, AJCC 8th Edition, Pathologic stage from 10/05/2016: Stage Unknown (rpT1c, pNX, cM0, G2, ER+, ID+, HER2-) - Signed by Cara Greene MD [...] at vaginal cuff. 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 Recurrence - First recurrence, ak chin sensitive - CT 04/10/19 with 3 cmlesion at cuff - Ca125 12 (from 8) - MTB discussion: recommend trial if progression on ak chin regimen or consider Parp for RAD 51 [...] ccy for choledocolithiasis 2019 (SGB) - Ca125: 30-7-3-7-7-9-8 - Started Parp inhibitor 09/2019 - Dose [...] concerning findings - Most recent Ca125 7.49 ([id number]) 06/30/2021 Recurrence - Third recurrence, ak chin sensitive - CT 06/30/2021 shows vaginal cuff [...] disease seen 04/11/2022 Recurrence - Fourth recurrence, ak chin resistant - CT 04/11/2022 with increase in [...] Chemotherapy - Avastin started 03/20/2023 - Ca125 7.38-7.51-6.5-6.71-6.26-6.58-6.94-6.72-6.86 - CT 06/16/2023: Stable to decreased size of vaginal cuff disease, no other new findings - CT 10/17/2022: Stable vaginal cuff lesion, increasing retroperitoneal adenopathy Interval updates to history: Oncologic treatment history as described above reviewed today as well as PMH/PSH/Meds/All/SH/FH, with updates made as appropriate. Patient is here today for cycle 11 of Dana. Doing very well. No appetite changes. No N/V. No severe headaches. Stable neuropathies. Previous daily spotting now rare, scant spots. Occasional right sided mild abdominal pains he believes is related to her hernia. No further diarrhea episodes. No further CP or syncope episodes. PMH: h/o breast cancer x2, ?cervical cancer, [...] years ago, no drugs, retired, lives in [place]. FamHx: Father-prostate, MGma-colon. ROS: 14 pt ROS performed with pertinent positives and negatives as noted in HPI. ROS otherwise negative Objective Physical Exam: Vital Signs for this encounter: BSA: 1.85 meters squared Visit Vitals BP 113/68 (BP Location: Right arm, Patient Position: Sitting, BP Cuff Size: Large adult) Pulse 88 Temp 36.8 ??C (98.2 ??F) (Oral) Resp 16 Ht 1.613 m (5' 3.5 ) Wt 76 kg (167 lb 8.8 oz) LMP 11/17/1981 (Approximate) SpO2 95% BMI 29.21 kg/m?? OB Status Hysterectomy Smoking Status Former BSA 1.85 m?? Physical Exam Vitals and nursing note [...] Status: Asymptomatic PS= 0 Results: CBC WBC 3.45 Hgb 12.4 PLT 173 HCT 38.0 Lab Results Component Value Date NEUTROABS 2.40 10/04/2023 BASIC METABOLIC PANEL Na 138 Cl 104 BUN 19 Gluc 117 K 3.8 Co2 23 Creat 0.73 LIVER FUNCTION TESTING Tot Prot 6.8 AST 71 Tot bili 0.5 ALT 40 Alkphos 88 Ca 9.4 Mg 1.4 Phos No results [...] by radiation for additional recurrence - Now ak chin resistant - Started Dana/oral Cytoxan, held Dana after cycle 4 due to Chest pain - CT after 4 cycles showed interval resolution of vaginal mass and no further disease. - At visit 08/2022: Patient had additional CP episode and heart cath subsequently performed. No severe disease noted and getter welder reports ok to continue Dana. However, also [...] cuff. - CT after cycle 10 10/17/2022: images reviewed and discussed with patient. Stable vaginal lesion, possible evolving adenopathy although mild at this time. Patient tolerating this regimen well so willcontinue with repeat CT in 3 cycles to assess stability - Cycle 11 of Dana today. Continue Cytoxan. Cyclic Ca125 monitoring with imaging q 3-4 cycles. Problem 2: Encounter for chemotherapy Assessment and plan 2: - Proceed with cycle 11 of Bevacizumab 15 mg/kg today. Plan q [...] of mass at cuff - Now minimal after [address] with stable mass last week. Monitor. Problem 4: History of left breast [...] cards at - [facility] and acute workup negative but [...] - 1 episode chest pain early April - ED workup negative for CO - No further episodes since last cycle [...] 10, 11. Still mildly but slowly escalating. Plan to continue more intensive hematologic monitoring with low threshold to stop cytoxan. 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 Summary of time spent in team [...] of care, lab orders, phlebotomy, and documentation I saw and evaluated the patient with the medical/AUTOMOBILE CLUB INFORMATION CLERK/PA student. I discussed the case with the medical/AUTOMOBILE CLUB INFORMATION CLERK/PA student and agree with the findings and plan as documented. I personally performed the Examand Medical Decision Making. Penelope Dodson MD * Progress Notes - Aliyah Saravia, PharmD - 10/25/2023 2:00 PM EDT Pharmacy Hematology/Oncology Treatment Plan Note [...] from 05/28/2001: pT1c, pN0, cM0, G2, ER+, ID+, HER2: Unknown - Signed by Cara Greene MD on 06/19/2021 - Pathologic stage from 10/05/2016: Stage Unknown (rpT1c, pNX, cM0, G2, ER+, ID+, HER2-) - Signed by Cara Greene MD on 06/19/2021 Study Patient: No Treatment Protocol: Bevacizumab IV every 21 days + continuous PO cytoxan Treatment Plan reviewed for: [x] Follow-Up Clinical Review Cycle 11 Day 1 [x] Follow-Up Clinical Review for Continuous Oral Therapy Interval History: Ms. John was seen by team in clinic. Her CT this interval demonstrated stable disease. CBC, BP and UA reviewed as well as chemotherapy orders. Dosing Wt: 84 kg Today's Wt: Wt Readings from Last 1 Encounters: 10/25/23 76.3 kg (168 lb 3.4 oz) Dosing Ht: 160 cm Dosing BSA: 1.88 m2 Recent Labs: Lab Results Component Value Date WBC 4.27 10/25/2023 HGB 13.3 10/25/2023 HCT 40.0 10/25/2023 MCV 105 (H) 10/25/2023 PLT 191 10/25/2023 Lab Results Component Value Date GLUCOSE 117 (H) 10/04/2023 CALCIUM 9.4 10/04/2023 NA 138 10/04/2023 K 3.8 10/04/2023 CO2 23 10/04/2023 CL 104 10/04/2023 BUN 19 10/04/2023 CREATININE 0.73 10/04/2023 Lab Results Component Value Date ALT 40 (H) 10/04/2023 AST 71 (H) 10/04/2023 ALKPHOS 88 10/04/2023 BILITOT 0.5 10/04/2023 Lab Results Component Value Date NEUTROABS 3.03 10/25/2023 Lab Results Component Value Date MG 1.4 (L) 01/09/2023 No results found for: TSH Lab Results Component Value Date URINEPRO Negative 10/04/2023 Vitals: Vitals: 10/25/23 1351 BP: 113/68 Pulse: 88 Resp: 16 Temp: 36.8 ??C (98.2 ??F) SpO2: 95% [...] 09/13/23 Cycle 10: 10/04/23 Cycle 11: 10/25/23 Prior Chemotherapy History: hormone therapy for prior [...] prescribed to: [facility] Refills will be due: 11/2023 Patient will return to clinic in 3 weeks. Will follow-up at that time. Warren DorseyD, BCPS documented in this encounter Plan of Treatment Upcoming Encounters Date Type Department Care Team ([facility] st Contact Info) Description 08/05/2024 8:00 AM EST Office Visit [facility] Gynecology 800 [facility] [address] [place] [address] Penelope Carmona MD 800 [facility] [address] [facility] [address] [place] [address] 08/05/2024 9:30 AM EST Appointment [facility]fusion [facility] [address] [place] [address] 02/26/2025 9:30 AM EDT Appointment [facility] [place] [address] [address] [facility] [address] [place] [address] 02/26/2025 10:30 AM EDT Office Visit [facility] [address] [place] [address] Berenice Resendez, SLITTER SCORER 800 [facility] [address] [place] [address] documented as of this encounter Procedures Procedure Name Priority Date/Time Associated Diagnosis Comments URINALYSIS MICROSCOPIC FOR UA REFLEX Routine 10/25/2023 2:16 PM EDT Carcinoma of fallopian tube, unspecified laterality (CMS/HCC) URINALYSIS WITH REFLEX MICROSCOPIC Routine 10/25/2023 2:16 PM EDT Carcinoma of fallopian tube, unspecified laterality (CMS/HCC) CBC WITH AUTO DIFFERENTIAL Routine 10/25/2023 1:57 PM EDT Carcinoma of fallopian tube, unspecified laterality (CMS/HCC) CA 125 Routine 10/25/2023 1:57 PM EDT Carcinoma of fallopian tube, unspecified laterality (CMS/HCC) COMPREHENSIVE METABOLIC PANEL, PLASMA Routine 10/25/2023 1:57 PM EDT Carcinoma of fallopian tube, unspecified laterality (CMS/HCC) documented in this encounter Results * Urinalysis Microscopic Examination (10/25/2023 2:16 PM EDT) Urine Urine specimen obtained by clean catch procedure / Unknown Non-blood Collection / Unknown 10/25/2023 2:16 PM EDT 10/25/2023 2:37 PM EDT us Penelope Dodson MD LAB URINE ORDERABLES Final Result [facility] [address] [place] [address] * (ABNORMAL) Urinalysis with reflex microscopic (Culture NOT Included) (10/25/2023 2:16 PM EDT) Pathologist [facility] Color, Urine Yellow LAB URINALYSIS - AUTOMATED METHOD 10/25/2023 2:57 PM EDT [facility] Clarity, Urine Clear LAB URINALYSIS - AUTOMATED METHOD 10/25/2023 2:57 PM EDT [facility] Spec [place], Urine 1.010 <=1.005 to >=1.030 LAB URINALYSIS - AUTOMATED METHOD 10/25/2023 2:57 PM EDT [facility] pH, Urine 5.5 4.5 to 8 LAB URINALYSIS - AUTOMATED METHOD 10/25/2023 2:57 PM EDT [facility] Protein, Urine Trace(A) Negative mg/dL LAB URINALYSIS - AUTOMATED METHOD 10/25/2023 2:57 PM EDT [facility] Glucose, Urine Negative Negative mg/dL LAB URINALYSIS - AUTOMATED METHOD 10/25/2023 2:57 PM EDT [facility] Ketones, Urine Negative Negative mg/dL LAB URINALYSIS - AUTOMATED METHOD 10/25/2023 2:57 PM EDT [facility] Blood, Urine Moderate(A) Negative LAB URINALYSIS - AUTOMATED METHOD 10/25/2023 2:57 PM EDT [facility] Bilirubin, Urine Negative Negative LAB URINALYSIS - AUTOMATED METHOD 10/25/2023 2:57 PM EDT [facility] Urobilinogen, Urine 0.2 0.2 to 1.0 mg/dL LAB URINALYSIS - AUTOMATED METHOD 10/25/2023 2:57 PM EDT [facility] Leukocytes, Urine Large(A) Negative LAB URINALYSIS - AUTOMATED METHOD 10/25/2023 2:57 PM EDT [facility] Nitrite, Urine Negative Negative LAB URINALYSIS - AUTOMATED METHOD 10/25/2023 2:57 PM EDT [facility] RBC, Urine 4 - 10(A) 0 to 3 /HPF LAB URINALYSIS - AUTOMATED METHOD 10/25/2023 2:57 PM EDT [facility] WBC, Urine 21 - 50(A) 0 to 5 /HPF LAB URINALYSIS - AUTOMATED METHOD 10/25/2023 2:57 PM EDT [facility] Squamous Epithelial Cells 0 - 2 0 to 5 /HPF LAB URINALYSIS - AUTOMATED METHOD 10/25/2023 2:57 PM EDT [facility] Hyaline Casts 6 - 10(A) 0 to 5 /LPF LAB URINALYSIS - AUTOMATED METHOD 10/25/2023 2:57 PM EDT [facility] Bacteria, Urine Negative Negative LAB URINALYSIS - AUTOMATED METHOD 10/25/2023 2:57 PM EDT [facility] Urine Urine specimen obtained by clean catch procedure / Unknown Non-blood Collection / Unknown 10/25/2023 2:16 PM EDT 10/25/2023 2:37 PM EDT Penelope Dodson MD LAB URINE ORDERABLES Final Result Performing Organization Address City/[facility]/ZIP Co de Phone Number [facility] [address] [place] [address] * CA 125 (10/25/2023 1:57 PM EDT) CA 125 8.12 <=38.00 U/mL 10/25/2023 3:23 PM EDT [facility] Blood Blood sample taken from central line / Unknown (Port) Long-term Catheter / Unknown 10/25/2023 1:57 PM EDT 10/25/2023 2:38 PM EDT Narrative [facility] - 10/25/2023 3:23 PM EDT Performed by Stephie electrochemiluminescent immunoassay. Results obtained with different test methods or kits cannot be used interchangeably. Penelope Dodson MD LAB BLOOD ORDERABLES Final Result Performing Organization Address [facility] Co de Phone Number [facility] [address] [place] [address] * (ABNORMAL) Comprehensive metabolic panel (10/25/2023 1:57 PM EDT) Glucose, Plasma 90 74 - 99 mg/dL 10/25/2023 3:18 PM EDT [facility] BUN, Plasma 27(H) 8 - 23 mg/dL 10/25/2023 3:18 PM EDT [facility] Creatinine, Plasma 0.83 0.60 - 1.10 mg/dL 10/25/2023 3:18 PM EDT [facility] BUN/Creatinine Ratio 33 10/25/2023 3:18 PM EDT [facility] Sodium, Plasma 139 136 - 145 mmol/L 10/25/2023 3:18 PM EDT [facility] Potassium, Plasma 4.3 3.7 - 4.8 mmol/L 10/25/2023 3:18 PM EDT [facility] Chloride, Plasma 104 97 - 107 mmol/L 10/25/2023 3:18 PM EDT [facility] CO2, Plasma 22 22 - 29 mmol/L 10/25/2023 3:18 PM EDT [facility] Anion Gap 13 6 - 16 mmol/L 10/25/2023 3:18 PM EDT [facility] Total Calcium, Plasma 9.2 8.9 - 10.2 mg/dL 10/25/2023 3:18 PM EDT [facility] Total Protein 7.0 6.3 - 7.9 g/dL 10/25/2023 3:18 PM EDT [facility] Albumin, Plasma 3.9 3.5 - 5.2 g/dL 10/25/2023 3:18 PM EDT [facility] AST, Plasma 114(H) 10 - 35 U/L 10/25/2023 3:18 PM EDT [facility] ALT, Plasma 126(H) 10 - 35 U/L 10/25/2023 3:18 PM EDT [facility] Alkaline Phosphatase, Plasma 197(H) 46 - 142 U/L 10/25/2023 3:18 PM EDT [facility] Total Bilirubin, Plasma 0.5 0.2 - 1.1 mg/dL 10/25/2023 3:18 PM EDT [facility] eGFRcr 72.3 mL/min/1.7 3m*2 10/25/2023 3:18 PM EDT [facility] Comment:Reported eGFRcr in m L/min/1.73m2 is based the CKD-EPI 2020 equation that does not use a race coefficient. Blood Blood sample taken from central line / Unknown (Port) Long-term Catheter / Unknown 10/25/2023 1:57 PM EDT 10/25/2023 2:37 PM EDT us Penelope Dodson MD LAB BLOOD ORDERABLES Final Result [facility] [address] [place] [address] * (ABNORMAL) CBC and differential (10/25/2023 1:57 PM EDT) WBC Count 4.27 3.70 - 10.30 10*3/uL LAB HEMATOLOGY METHOD 10/25/2023 2:35 PM EDT [facility] RBC Count 3.82(L) 3.90 - 5.20 10*6/uL LAB HEMATOLOGY METHOD 10/25/2023 2:35 PM EDT [facility] HGB 13.3 11.2 - 15.7 g/dL LAB HEMATOLOGY METHOD 10/25/2023 2:35 PM EDT [facility] HCT 40.0 34.0 - 45.0 % LAB HEMATOLOGY METHOD 10/25/2023 2:35 PM EDT [facility] Platelet Count 191 155 - 369 10*3/uL LAB HEMATOLOGY METHOD 10/25/2023 2:35 PM EDT [facility] MCV 105(H) 79 - 98 fL LAB HEMATOLOGY METHOD 10/25/2023 2:35 PM EDT [facility] MCH 34.8(H) 26.0 - 32.0 pg LAB HEMATOLOGY METHOD 10/25/2023 2:35 PM EDT [facility] MCHC 33.3 30.7 - 35.5 g/dL LAB HEMATOLOGY METHOD 10/25/2023 2:35 PM EDT [facility] RDW 15.2(H) 11.5 - 14.5 % LAB HEMATOLOGY METHOD 10/25/2023 2:35 PM EDT [facility] MPV 9.5 8.8 - 12.5 fL LAB HEMATOLOGY METHOD 10/25/2023 2:35 PM EDT [facility] nRBC 0.0 <=0.0 per 100 WBCs LAB HEMATOLOGY METHOD 10/25/2023 2:35 PM EDT [facility] Differential Type Automated LAB HEMATOLOGY METHOD 10/25/2023 2:35 PM EDT [facility] Neutrophils % 71.0 % LAB HEMATOLOGY METHOD 10/25/2023 2:35 PM EDT [facility] Lymphocytes % 16.0 % LAB HEMATOLOGY METHOD 10/25/2023 2:35 PM EDT [facility] Monocytes % 7.0 % LAB HEMATOLOGY METHOD 10/25/2023 2:35 PM EDT [facility] Eosinophils % 4.0 % LAB HEMATOLOGY METHOD 10/25/2023 2:35 PM EDT [facility] Basophils % 1.0 % LAB HEMATOLOGY METHOD 10/25/2023 2:35 PM EDT [facility] Immature Granulocytes % 1.0 % LAB HEMATOLOGY METHOD 10/25/2023 2:35 PM EDT [facility] Neutrophils Absolute 3.03 1.60 - 6.10 10*3/uL LAB HEMATOLOGY METHOD 10/25/2023 2:35 PM EDT [facility] Lymphocytes Absolute 0.69(L) 1.20 - 3.90 10*3/uL LAB HEMATOLOGY METHOD 10/25/2023 2:35 PM EDT [facility] Monocytes Absolute 0.31 0.30 - 0.90 10*3/uL LAB HEMATOLOGY METHOD 10/25/2023 2:35 PM EDT [facility] Eosinophils Absolute 0.18 0.00 - 0.50 10*3/uL LAB HEMATOLOGY METHOD 10/25/2023 2:35 PM EDT [facility] Basophils Absolute 0.04 0.00 - 0.10 10*3/uL LAB HEMATOLOGY METHOD 10/25/2023 2:35 PM EDT [facility] Immature Granulocytes Absolute 0.02 0.00 - 0.06 10*3/uL LAB HEMATOLOGY METHOD 10/25/2023 2:35 PM EDT [facility] Blood Blood sample taken from central line / Unknown (Port) Long-term Catheter / Unknown 10/25/2023 1:57 PM EDT 10/25/2023 2:33 PM EDT Narrative [facility] - 10/25/2023 2:35 PM EDT Therapeutic decision making should be based on absolute values, rather than percentages. us Penelope Dodson MD LAB BLOOD ORDERABLES Final Result Performing Organization Address City/State/[facility] Co de Phone Number [facility] [address] [place] [address] documented in this encounter Visit Diagnoses Diagnosis [...] documented as of this encounter Care Teams Inkjet Operator Relationship Specialty Start Date End Date Flaquita Dorsey DO [address] [place] [address] PCP - General 12/14/21 Aliyah Valencia MD [address] [place] [address] Referring Physician 03/10/21 Conrado Iqbal MD [address] [place] [address] Service Attending Cardiology 08/19/22 documented as of this encounter
--- OUTSIDE RECORDS SUMMARY | 2024-07-10 11:55 | XMS_ITS | Encounter Summary ---
Author Organization [facility] Address [address] [place], [place] [address] Care Team Providers Care Custom Wood Stair Builder Name Role Phone Aliyah Valencia MD Unavailable Flaquita Dorsey DO Primary Care Provider [phone] Conrado Iqbal MD Unavailable Reason for Visit * Episode Based Medications (Routine) - Authorized Specialty Diagnoses / Procedures Referred By Contac t Referred To Contact Diagnoses Carcinoma of fallopian tube, unspecified laterality (CMS/HCC) Procedures Bevacizumab Every 21 Days Penelope Carmona MD [address] [address] Phone: tel: fax: [facility] Infusion Clinic [address] [place] [address] Phone: tel: Referral ID Status Reason Start Date Expiration Date V isits Requested Visits Authorized [id number] Authorized 03/13/2023 09/11/2024 1 26 Encounter Details Date Type Department Care Team (Latest Contact Info) Description 11/15/2023 1:47 PM EDT - 11/15/2023 11:59 PM EDT Hospital Encounter [facility] [address] [place] [address] Carcinoma of fallopian tube, unspecified [...] Sign Reading Time Taken Comments Blood Pressure 113/74 11/15/2023 2:10 PM EDT Pulse 90 11/15/2023 2:10 PM EDT Temperature 36.7 ??C (98 ??F) 11/15/2023 2:10 PM EDT Respiratory Rate 16 11/15/2023 2:10 PM EDT Oxygen Saturation 96% 11/15/2023 2:10 PM EDT Inhaled Oxygen Concentration - - Weight 76.3 kg (168 lb 3.4 oz) 11/15/2023 2:10 P M EDT Height 161.3 cm (5' 3.5 ) 11/15/2023 2:10 PM EDT Body Mass Index 29.33 11/15/2023 2:10 PM EDT documented in this encounter Medications at Time of Discharge aspirin 81 MG chewable tablet Chew 1 tablet (81 mg) 1 (one) time each day. ergocalciferol (Vitamin D-2) 1.25 MG (22059 UT) capsule Take 1 capsule (50,000 Units) [...] EST Office Visit [facility] Gynecology [address] [facility] [address] [place] [address] Penelope Carmona MD [address] [facility] [address] [facility] [address] [place] [address] 08/05/2024 9:30 AM EST Appointment [facility] [address] [place] [address] 02/26/2025 9:30 AM EDT Appointment [facility] [place] [address] [address] [facility] [address] [place] [address] 02/26/2025 10:30 AM EDT Office Visit [facility] [address] [facility], [address] [place] [address] Berenice Resendez, DRIVER/MERCHANDISER [address] [facility] [address] [place] [address] documented as of this encounter Visit Diagnoses [...] Specific administration requirements refer to [id number]., On Mon11/15/23 at 1600, For 1 dose, NS 100 mLIndications:Carcinoma of fallopian tube, unspecified laterality (CMS/HCC) New Bag 11/15/2023 4:02 PM EDT 1,200 mg 356 mL/hr documented in this encounter Additional Health Concerns Assessment Noted Time A fall risk assessment has been complete d for the patient 11/15/2023 2:07 PM EDT A Body Mass Index follow-up plan has been documented for the patient 08/19/2022 9:30 AM EST documented as of this encounter Care Teams Custom Wood Stair Builder Relationship Specialty Start Date End Date Flaquita Dorsey DO [address] [place] [address] PCP - General 12/14/21 Aliyah Valencia MD [address] [place] [address] Referring Physician 03/10/21 Conrado Iqbal MD NPI: [id number] [place] [id number] Service Attending Cardiology 08/19/22 documented as of this encounter
--- OUTSIDE RECORDS SUMMARY | 2024-07-10 11:55 | XMS_ITS | Encounter Summary ---
Author Organization Healthcare Address [address] [place], [place] [id number] Care Team Providers Care Director Of Maintenance Name Role Phone Aliyah Valencia MD Unavailable [phone] Flaquita Dorsey DO Primary Care Provider [phone] Conrado Iqbal MD Unavailable Reason for Visit * Reason Comments Chemotherapy Encounter Details Date Type Department Care Team ([facility] st Contact Info) Description 12/27/2023 1:00 PM EDT Office Visit [facility] Gynecology [address] [facility] [address] [place] [id number] Penelope Carmona MD [address] [facility] [address] [facility] [address] [place] [address] Carcinoma of fallopian tube, unspecified laterality (CMS/HCC) (Primary Dx); Encounter for antineoplastic chemotherapy; Neuropathy Social History Tobacco Use Types Packs/Day [...] Sign Reading Time Taken Comments Blood Pressure 133/81 12/27/2023 1:15 PM EDT Pulse 85 12/27/2023 1:15 PM EDT Temperature 36.4 ??C (97.5 ??F) 12/27/2023 1:15 PM ED T Respiratory Rate 16 12/27/2023 1:15 PM EDT Oxygen Saturation 97% 12/27/2023 1:15 PM EDT Inhaled Oxygen Concentration - - Weight 77.1 kg (169 lb 15.6 oz) 12/27/2023 1:15 PM EDT Height 160 cm (5' 3 ) 12/27/2023 1:15 PM EDT Body Mass Index 30.11 12/27/2023 1:15 PM EDT documented in this encounter Miscellaneous Notes * Progress Notes - Dwain Concepcion MD - 12/27/2023 1:00 PM EDT Primary Care Provider: Flaquita [...] were negative for metastatic disease. ER and MI were strongly positive and HER-2 was negative. [...] ER positive in 90% of the cells, MI positive in 95% of cells andHER-2 negative by IHC at 0. On 10/04/2016 she underwent a left needle localized lumpectomy. Provencal lymph node biopsy was not performed as [...] vagina). Initiated neoadjuvant chemo with carbo/Taxol per CASTING ROOM HELPER followed by BSO/Omentectomy and adjuvant Carbotaxol. Recurrence in March 2019. Treated with carbo initially followed by Olaparib. 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 She is currently off of therapy. She follows with Dr. Hutchins in [facility] [place]/Onc. 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 Recurrence - First recurrence, [place] sensitive - CT 04/10/19 with 3 cmlesion at cuff - Ca125 12 (from 8) - MTB discussion: recommend trial if progression on [place] regimen or consider Parp for RAD 51 [...] ccy for choledocolithiasis 2019 ([facility]) - Ca125: 10-6-2-7-7-9-8 - Started Parp inhibitor 09/2019 - Dose [...] 7.49 () 06/30/2021 Recurrence - Third recurrence, [place]age sensitive - CT 06/30/2021 shows vaginal cuff [...] disease seen 04/11/2022 Recurrence - Fourth recurrence, grand [place] resistant - CT 04/11/2022 with increase in [...] Chemotherapy - Avastin started 03/20/2023 - Ca125 7.38-7.51-6.5-6.71-6.26-6.58-6.94-6.72-6.86-8.12-9.55-11.5 - CT 06/16/2023: Stable to decreased size of vaginal cuff disease, no other new findings - CT 10/17/2022: Stable vaginal cuff lesion, increasing retroperitoneal adenopathy Interval updates to history: Oncologic treatment history as described above reviewed today as well as PMH/PSH/Meds/All/SH/FH, with updates made as appropriate. Patient is here today for cycle 14 of Dana. Reports increased neuropathy at hands at night; uses 400mg gabapentin at bedtime. Otherwise largelystable without new or acute complaints today. PMH: h/o breast cancer x2, ?cervical [...] years ago, no drugs, retired, lives in [place]. FamHx: Father-prostate, MGma-colon. ROS: 14 pt ROS performed with pertinent positives and negatives as noted in HPI. ROS otherwise negative Objective Physical Exam: Vital Signs for this encounter: BSA: 1.85 meters squared Visit Vitals BP 133/81 (BP Location: Right arm, Patient Position: Sitting, BP Cuff Size: Adult long) Pulse 85 Temp 36.4 ??C (97.5 ??F) (Temporal) Resp 16 Ht 1.6 m (5' 3 ) Wt 77.1 kg (169 lb 15.6 oz) LMP 11/17/1981 (Approximate) SpO2 97% BMI 30.11 kg/m?? OB Status Hysterectomy Smoking Status Former BSA 1.85 m?? Physical Exam Vitals and nursing note reviewed. Constitutional: General: She is not in acute distress. Appearance: Normal appearance. She is well-developed. She is obese. She is not ill-appearing or diaphoretic. HENT: [...] NEUTROABS 2.83 12/27/2023 BASIC METABOLIC PANEL Na 140 Cl 108 BUN 18 Gluc 91 K 4.1 Co2 21 Creat 0.73 LIVER FUNCTION TESTING Tot Prot 6.6 AST 29 Tot bili 0.3 ALT 26 Alkphos 83 Ca 9.4 Mg 1.4 Phos No results [...] by radiation for additional recurrence - Now [place] resistant - Started Dana/oral Cytoxan, held Dana after cycle 4 due to Chest pain - CT after 4 cycles showed interval resolution of vaginal mass and no further disease. - At visit 08/2022: Patient had additional CP episode and heart cath subsequently performed. No severe disease noted and director of logistics reports ok to continue Dana. However, also [...] 3-4 cycles to assess stability - Cycle 14 of Dana today. Continue Cytoxan. Cyclic Ca125 monitoring with imaging q 3-4 cycles. (Check scan after this cycle) Problem 2: Encounter for chemotherapy Assessment and plan 2: - Proceed with cycle 14 of Bevacizumab 15 mg/kg today. Plan q [...] - Now minimal ( trace ) after 13 cycles of Dana. Monitor. Problem 4: History of left breast cancer x 2 Assessment and plan 4: - s/p anastrazole. No current signs of disease. Follows up with breast clinic (recent visit JARED) Problem 5: Neuropathy Assessment and plan 5: - Treatment related. - Will not use Taxol again. 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 Summary of time spent in team based care today includes the following activities performed by myself: review of prior documentation in preparation for visit, review of labs and any other test results, obtaining and reviewing medical history, appropriate focused physical exam, discussion of exam and/or test results, discussion of plan of care, lab orders, phlebotomy, imaging orders, prescription submission Penelope Dodson MD Cosigned by Penelope Carmona MD at 12/28/2023 9:30 AM EDT Associated attestation - Penelope Carmona MD - 12/28/2023 9:30 AM EDT I saw and evaluated the patient with the resident/fellow. I discussed the case with the resident/fellow and agree with the findings and plan as documented. * Progress Notes - Serena Xiong, PharmD - 12/27/2023 1:00 PM EDT Pharmacy Hematology/Oncology Treatment Plan [...] from 05/28/2001: pT1c, pN0, cM0, G2, ER+, MI+, HER2: Unknown - Signed by Cara Greene MD on 06/19/2021 - Pathologic stage from 10/05/2016: Stage Unknown (rpT1c, pNX, cM0, G2, ER+, MI+, HER2-) - Signed by Cara Greene MD on 06/19/2021 Study Patient: No Treatment Protocol: Bevacizumab IV every 21 days + continuous PO cytoxan Treatment Plan reviewed for: [x] Follow-Up Clinical Review Cycle 14 Day 1 [x] Follow-Up Clinical Review for Continuous Oral Therapy Interval History: Ms. John was seen by team in clinic. UA demonstrated trace protein will continue to monitor. Continues to follow with Dr. Granda for endocrinology, ophthalmology, and a physician who specializes in thyroid eye diseases. Prescribing gabapentin for neuropathy but otherwise no complaints at today's assessment. Dosing Wt: 84 kg Today's Wt: Wt Readings from Last 1 Encounters: 12/27/23 76.7 kg (169 lb 1.5 oz) Dosing Ht: 160 cm Dosing BSA: 1.88 m2 Recent Labs: Lab Results Component Value Date WBC 4.12 12/27/2023 HGB 12.7 12/27/2023 HCT 38.0 12/27/2023 MCV 107 (H) 12/27/2023 PLT 166 12/27/2023 Lab Results Component Value Date GLUCOSE 73 (L) 12/06/2023 CALCIUM 9.4 12/06/2023 NA 141 12/06/2023 K 4.1 12/06/2023 CO2 22 12/06/2023 CL 106 12/06/2023 BUN 24 (H) 12/06/2023 CREATININE 0.84 12/06/2023 Lab Results Component Value Date ALT 17 12/06/2023 AST 25 12/06/2023 ALKPHOS 67 12/06/2023 BILITOT 0.5 12/06/2023 Lab Results Component Value Date NEUTROABS 2.83 12/27/2023 Lab Results Component Value Date MG 1.4 (L) 01/09/2023 No results found for: TSH Lab Results Component Value Date URINEPRO Negative 11/15/2023 Vitals: Vitals: 12/27/23 1315 BP: 133/81 Pulse: 85 Resp: 16 Temp: 36.4 ??C (97.5 ??F) SpO2: 97% Other Relevant Monitoring: None [...] 11/15/23 Cycle 13: 12/06/23 Cycle 14: 12/27/23 Prior Chemotherapy History: hormone therapy for prior [...] follow-up at that time. Serena Xiong PharmD, [facility] Hematology/Oncology Clinical Pharmacist documented in this encounter Plan of Treatment Upcoming Encounters Date Type Department Care Team (Late st Contact Info) Description 08/05/2024 8:00 AM EST Office Visit [facility] Gynecology [address] [place] [address] Penelope Carmona MD [address] [place] [address] 08/05/2024 9:30 AM EST Appointment [facility] [address] [place] [address] 02/26/2025 9:30 AM EDT Appointment [facility] [address] [place] [address] 02/26/2025 10:30 AM EDT Office Visit [facility] [address] [place] [address] Berenice Resendez, TRANSFER KNITTER [address] [facility] [address] [place] [address] documented as of this encounter Procedures Procedure Name Priority Date/Time Associated Diagnosis Comments URINALYSIS MICROSCOPIC FOR UA REFLEX Routine 12/27/2023 1:30 PM EDT Carcinoma of fallopian tube, unspecified laterality (CMS/HCC) URINALYSIS WITH REFLEX MICROSCOPIC Routine 12/27/2023 1:30 PM EDT Carcinoma of fallopian tube, unspecified laterality (CMS/HCC) CBC WITH AUTO DIFFERENTIAL Routine 12/27/2023 1:30 PM EDT Carcinoma of fallopian tube, unspecified laterality (CMS/HCC) CA 125 Routine 12/27/2023 1:30 PM EDT Carcinoma of fallopian tube, unspecified laterality (CMS/HCC) COMPREHENSIVE METABOLIC PANEL, PLASMA Routine 12/27/2023 1:30 PM EDT Carcinoma of fallopian tube, unspecified laterality (CMS/HCC) documented in this encounter Results * Urinalysis Microscopic Examination (12/27/2023 1:30 PM EDT) Urine Urine specimen obtained by clean catch procedure / Unknown Non-blood Collection / Unknown 12/27/2023 1:30 PM EDT 12/27/2023 2:19 PM EDT us Penelope Dodson MD LAB URINE ORDERABLES Final Result [facility] [address] [place] [address] * (ABNORMAL) Urinalysis with reflex microscopic (Culture NOT Included) (12/27/2023 1:30 PM EDT) Color, Urine Yellow LAB URINALYSIS - AUTOMATED METHOD 12/27/2023 3:25 PM EDT [facility] Clarity, Urine Clear LAB URINALYSIS - AUTOMATED METHOD 12/27/2023 3:25 PM EDT [facility] Spec [place], Urine 1.008 <=1.005 to >=1.030 LAB URINALYSIS - AUTOMATED METHOD 12/27/2023 3:25 PM EDT [facility] pH, Urine 6.0 4.5 to 8 LAB URINALYSIS - AUTOMATED METHOD 12/27/2023 3:25 PM EDT [facility] Protein, Urine Negative Negative mg/dL LAB URINALYSIS - AUTOMATED METHOD 12/27/2023 3:25 PM EDT [facility] Glucose, Urine Negative Negative mg/dL LAB URINALYSIS - AUTOMATED METHOD 12/27/2023 3:25 PM EDT [facility] Ketones, Urine Negative Negative mg/dL LAB URINALYSIS - AUTOMATED METHOD 12/27/2023 3:25 PM EDT [facility] Blood, Urine Small(A) Negative LAB URINALYSIS - AUTOMATED METHOD 12/27/2023 3:25 PM EDT [facility] Bilirubin, Urine Negative Negative LAB URINALYSIS - AUTOMATED METHOD 12/27/2023 3:25 PM EDT [facility] Urobilinogen, Urine 0.2 0.2 to 1.0 mg/dL LAB URINALYSIS - AUTOMATED METHOD 12/27/2023 3:25 PM EDT [facility] Leukocytes, Urine Moderate(A) Negative LAB URINALYSIS - AUTOMATED METHOD 12/27/2023 3:25 PM EDT [facility] Nitrite, Urine Negative Negative LAB URINALYSIS - AUTOMATED METHOD 12/27/2023 3:25 PM EDT [facility] RBC, Urine 2 0 to 3 /HPF LAB URINALYSIS - AUTOMATED METHOD 12/27/2023 3:25 PM EDT [facility] Comment:This result was prev iously suppressed from the chart. WBC, Urine 6 - 10(A) 0 to 5 /HPF LAB URINALYSIS - AUTOMATED METHOD 12/27/2023 3:25 PM EDT [facility] Comment:This result was prev iously suppressed from the chart. Squamous Epithelial Cells 0 - 2 0 to 5 /HPF LAB URINALYSIS - AUTOMATED METHOD 12/27/2023 3:25 PM EDT [facility] Comment:This result was prev iously suppressed from the chart. Hyaline Casts 0 - 2 0 to 5 /LPF LAB URINALYSIS - AUTOMATED METHOD 12/27/2023 3:25 PM EDT [facility] Comment:This result was prev iously suppressed from the chart. Bacteria, Urine Negative Negative LAB URINALYSIS - AUTOMATED METHOD 12/27/2023 3:25 PM EDT [facility] Comment:This result was prev iously suppressed from the chart. Urine Urine specimen obtained by clean catch procedure / Unknown Non-blood Collection / Unknown 12/27/2023 1:30 PM EDT 12/27/2023 2:19 PM EDT Narrative [facility] - 12/27/2023 3:25 PM EDT Performed by manual method us Penelope Dodson MD LAB URINE ORDERABLES Final Result Performing Organization Address [facility] Co de Phone Number [facility] [address] [place] [address] * CA 125 (12/27/2023 1:30 PM EDT) CA 125 11.50 <=38.00 U/mL 12/27/2023 2:55 PM EDT [facility] Blood Blood sample taken from central line / Unknown (Port) Long-term Catheter / Unknown 12/27/2023 1:30 PM EDT 12/27/2023 2:13 PM EDT [facility]arrative [facility] - 12/27/2023 2:55 PM EDT Performed by Stephie electrochemiluminescent immunoassay. Results obtained with different test methods or kits cannot be used interchangeably. us Penelope Dodson MD LAB BLOOD ORDERABLES Final Result Performing Organization Address City/[facility] Co de Phone Number [facility] [address] [place] [address] * (ABNORMAL) Comprehensive metabolic panel (12/27/2023 1:30 PM EDT) Glucose, Plasma 91 74 - 99 mg/dL 12/27/2023 2:55 PM EDT [facility] BUN, Plasma 18 8 - 23 mg/dL 12/27/2023 2:55 PM EDT [facility] Creatinine, Plasma 0.73 0.60 - 1.10 mg/dL 12/27/2023 2:55 PM EDT [facility] BUN/Creatinine Ratio 25 12/27/2023 2:55 PM EDT [facility] Sodium, Plasma 140 136 - 145 mmol/L 12/27/2023 2:55 PM EDT [facility] Potassium, Plasma 4.1 3.7 - 4.8 mmol/L 12/27/2023 2:55 PM EDT [facility] Chloride, Plasma 108(H) 97 - 107 mmol/L 12/27/2023 2:55 PM EDT [facility] CO2, Plasma 21(L) 22 - 29 mmol/L 12/27/2023 2:55 PM EDT [facility] Anion Gap 11 6 - 16 mmol/L 12/27/2023 2:55 PM EDT [facility] Total Calcium, Plasma 9.4 8.9 - 10.2 mg/dL 12/27/2023 2:55 PM EDT [facility] Total Protein 6.6 6.3 - 7.9 g/dL 12/27/2023 2:55 PM EDT [facility] Albumin, Plasma 3.9 3.5 - 5.2 g/dL 12/27/2023 2:55 PM EDT [facility] AST, Plasma 29 10 - 35 U/L 12/27/2023 2:55 PM EDT [facility] ALT, Plasma 26 10 - 35 U/L 12/27/2023 2:55 PM EDT [facility] Alkaline Phosphatase, Plasma 83 46 - 142 U/L 12/27/2023 2:55 PM EDT [facility] Total Bilirubin, Plasma 0.3 0.2 - 1.1 mg/dL 12/27/2023 2:55 PM EDT [facility] eGFRcr 84.3 mL/min/1.7 3m*2 12/27/2023 2:55 PM EDT [facility] Comment:Reported eGFRcr in m L/min/1.73m2 is based the CKD-EPI 2020 equation that does not use a race coefficient. Blood Blood sample taken from central line / Unknown (Port) Long-term Catheter / Unknown 12/27/2023 1:30 PM EDT 12/27/2023 2:12 PM EDT Penelope Dodson MD LAB BLOOD ORDERABLES Final Result [facility] [address] [place] [address] * (ABNORMAL) CBC and differential (12/27/2023 1:30 PM EDT) Pathologist [facility] WBC Count 4.12 3.70 - 10.30 10*3/uL LAB HEMATOLOGY METHOD 12/27/2023 1:40 PM EDT [facility] RBC Count 3.55(L) 3.90 - 5.20 10*6/uL LAB HEMATOLOGY METHOD 12/27/2023 1:40 PM EDT [facility] HGB 12.7 11.2 - 15.7 g/dL LAB HEMATOLOGY METHOD 12/27/2023 1:40 PM EDT [facility] HCT 38.0 34.0 - 45.0 % LAB HEMATOLOGY METHOD 12/27/2023 1:40 PM EDT [facility] Platelet Count 166 155 - 369 10*3/uL LAB HEMATOLOGY METHOD 12/27/2023 1:40 PM EDT [facility] MCV 107(H) 79 - 98 fL LAB HEMATOLOGY METHOD 12/27/2023 1:40 PM EDT [facility] MCH 35.8(H) 26.0 - 32.0 pg LAB HEMATOLOGY METHOD 12/27/2023 1:40 PM EDT [facility] MCHC 33.4 30.7 - 35.5 g/dL LAB HEMATOLOGY METHOD 12/27/2023 1:40 PM EDT [facility] RDW 15.3(H) 11.5 - 14.5 % LAB HEMATOLOGY METHOD 12/27/2023 1:40 PM EDT [facility] MPV 9.0 8.8 - 12.5 fL LAB HEMATOLOGY METHOD 12/27/2023 1:40 PM EDT [facility] nRBC 0.0 <=0.0 per 100 WBCs LAB HEMATOLOGY METHOD 12/27/2023 1:40 PM EDT [facility] Differential Type Automated LAB HEMATOLOGY METHOD 12/27/2023 1:40 PM EDT [facility] Neutrophils % 68.0 % LAB HEMATOLOGY METHOD 12/27/2023 1:40 PM EDT [facility] Lymphocytes % 16.0 % LAB HEMATOLOGY METHOD 12/27/2023 1:40 PM EDT [facility] Monocytes % 8.0 % LAB HEMATOLOGY METHOD 12/27/2023 1:40 PM EDT [facility] Eosinophils % 7.0 % LAB HEMATOLOGY METHOD 12/27/2023 1:40 PM EDT [facility] Basophils % 1.0 % LAB HEMATOLOGY METHOD 12/27/2023 1:40 PM EDT [facility] Immature Granulocytes % 0.0 % LAB HEMATOLOGY METHOD 12/27/2023 1:40 PM EDT [facility] Neutrophils Absolute 2.83 1.60 - 6.10 10*3/uL LAB HEMATOLOGY METHOD 12/27/2023 1:40 PM EDT [facility] Lymphocytes Absolute 0.66(L) 1.20 - 3.90 10*3/uL LAB HEMATOLOGY METHOD 12/27/2023 1:40 PM EDT [facility] Monocytes Absolute 0.32 0.30 - 0.90 10*3/uL LAB HEMATOLOGY METHOD 12/27/2023 1:40 PM EDT [facility] Eosinophils Absolute 0.27 0.00 - 0.50 10*3/uL LAB HEMATOLOGY METHOD 12/27/2023 1:40 PM EDT [facility] Basophils Absolute 0.03 0.00 - 0.10 10*3/uL LAB HEMATOLOGY METHOD 12/27/2023 1:40 PM EDT [facility] Immature Granulocytes Absolute 0.01 0.00 - 0.06 10*3/uL LAB HEMATOLOGY METHOD 12/27/2023 1:40 PM EDT [facility] Blood Blood sample taken from central line / Unknown (Port) Long-term Catheter / Unknown 12/27/2023 1:30 PM EDT 12/27/2023 1:34 PM EDT Narrative [facility] - 12/27/2023 1:40 PM EDT Therapeutic decision making should be based on absolute values, rather than percentages. us Penelope Dodson MD LAB BLOOD ORDERABLES Final Result [facility] [address] [place] [id number] documented in this encounter Visit Diagnoses Diagnosis Carcinoma of fallopian tube, unspecified laterality (CMS/HCC)- Primary Encounter for antineoplastic chemotherapy Neuropathy Mononeuritis of unspecified site documented in this encounter Additional Health Concerns Assessment Noted Time A fall risk assessment has been complete d for the patient 12/27/2023 2:00 PM EDT A Body Mass Index follow-up plan has been documented for the patient 08/19/2022 9:30 AM EST documented as of this encounter Care Teams Director Of Maintenance Relationship Specialty Start Date End Date Flaquita Dorsey DO [address] [place] [address] PCP - General 12/14/21 Aliyah Valencia MD [address] [place] [address] Referring Physician 03/10/21 Conrado Iqbal MD [address] [place] [phone] Service Attending Cardiology 08/19/22 documented as of this encounter
--- OUTSIDE RECORDS SUMMARY | 2024-07-10 11:55 | XMS_ITS | Encounter Summary ---
Author Organization [facility] Address [address] [place], [place] [address] Care Team Providers Care Pound Attendant Name Role Phone Aliyah Valencia MD Unavailable [phone] Flaquita Dorsey DO Primary Care Provider [phone] Conrado Iqbal MD Unavailable Reason for Referral * Imaging (Urgent) - Closed Specialty Diagnoses / Procedures Referred By Contac t Referred To Contact Radiology Diagnoses Carcinoma of fallopian tube, unspecified laterality (CMS/HCC) Procedures CT Abdomen Pelvis w IV Contrast Penelope Carmona MD [address] [address] Phone: tel: fax: Referral ID Status Reason Start Date Expiration Date Visits Re quested Visits Authorized [id number] Closed 09/14/2023 03/15/2025 1 1 * Imaging (Routine) - Closed Specialty Diagnoses / Procedures Referred By Contac t Referred To Contact Radiology Diagnoses Carcinoma of fallopian tube, unspecified laterality (CMS/HCC) Procedures CT Chest w IV Contrast Penelope Carmona MD [address] [address] Phone: tel: fax: Referral ID Status Reason Start Date Expiration Date Visits Re quested Visits Authorized [id number] Closed 09/14/2023 03/15/2025 1 1 Reason for Visit * Imaging (Urgent) - Closed Specialty Diagnoses / Procedures Referred By Contac t Referred To Contact Radiology Diagnoses Carcinoma of fallopian tube, unspecified laterality (CMS/HCC) Procedures CT Abdomen Pelvis w IV Contrast Penelope Carmona MD [address] [facility] [address] [place] [address] Phone: tel: fax: Referral ID Status Reason Start Date Expiration Date Visits Re quested Visits Authorized [id number] Closed 09/14/2023 03/15/2025 1 1 Encounter Details Date Type Department Care Team (Latest Contact Info) Description 10/17/2023 5:20 PM EDT - 10/17/2023 11:59 PM EDT Hospital Encounter [facility] Radiology [address] [place] [address] Carcinoma of fallopian tube, unspecified laterality (CMS/HCC) [...] on file documented as of this encounter Discharge Instructions * Attachments The following attachments cannot be sent through Care Everywhere. * Contrast Imaging Discharge Instructions ([place]) (Belarusian) documented in this encounter Medications at Time of Discharge aspirin 81 MG chewable tablet Chew 1 tablet (81 mg) 1 (one) time each day. ergocalciferol (Vitamin D-2) 1.25 MG (38205 UT) capsule Take 1 capsule (50,000 Units) [...] Upcoming Encounters Date Type Department Care Team (Awais st Contact Info) Description 08/05/2024 8:00 AM EST Office Visit [facility] Gynecology [address] [place] [address] Penelope Carmona MD 800 [facility] [address] [place] [address] 08/05/2024 9:30 AM EST Appointment [facility] 1 [address] [place] [phone] 02/26/2025 9:30 AM EDT Appointment [facility] [place] [address] [address] [facility] [address] [place] [address] 02/26/2025 10:30 AM EDT Office Visit [facility] [place] [address] [facility], [address] [place] [address] Berenice Resendez, SETTLEMENT TECHNICIAN 800 [facility] [address] [place] [address] documented as of this encounter Procedures Procedure Name Priority Date/Time Associated Diagnosis Comments CT ABDOMEN PELVIS W IV CONTRAST STAT 10/17/2023 6:25 PM EDT Carcinoma of fallopian tube, unspecified laterality (CMS/HCC) CT CHEST W IV CONTRAST Routine 10/17/2023 6:25 PM EDT Carcinoma of fallopian tube, unspecified laterality (CMS/HCC) documented in this encounter Results * CT Abdomen Pelvis w IV Contrast (10/17/2023 6:25 PM EDT) Anatomical Region Laterality Modality Abdomen, Pelvis Computed Tomogra phy Impressions 10/18/2023 8:52 AM EDT Chest: No evidence of disease progression. Abdomen/Pelvis: Vaginal cuff lesion was remain grossly stable in size. However there is increasing retroperitoneal/pelvic lymphadenopathy as discussed.. CRITICAL RESULT: ?? No. COMMUNICATION: Per this written report. Drafted by Mark Whelan MD on 10/18/2023 8:37 AM Final report signed by Mark Whelan MD on 10/18/2023 8:52 AM Narrative 10/18/2023 8:52 AM EDT CLINICAL INDICATION: Ovarian cancer, staging TECHNIQUE: [...] nodules to suggest metastatic disease. Unchanged appearance of 5 mm right upper lobe pulmonary nodule. Calcified [...] the spine. No suspicious body wall lesions. Procedure Note Mark Whelan MD - 10/18/2023 CLINICAL INDICATION: Ovarian cancer, staging TECHNIQUE: Multiple axial CT images were obtained from thoracic inlet through pubicsymphysis following administration of IV contrast, Omnipaque 300, 100 mL.Reformatted images of the abdomen and pelvis in the coronal and sagittalplanes were generated from the axial data set to facilitate diagnosticaccuracy. Total DLP (Dose-Length Product): 651.01 mGy.cm. Please note: The reportedvalue represents the total of one or more individual components during theCT acquisition on this date and at this time, and as such, the same valuemay appear in more than one CT report depending on theinterpreting/reporting physicians. COMPARISON: CT chest abdomen pelvis June 16, 2023. FINDINGS: Chest: Lymph Nodes and Mediastinum: No lymphadenopathy by CT size criteria. Nomediastinal mass lesions. Stable appearance of the thyroid. Cardiovascular: The heart is normal in caliber. Thoracic great vessels arepatent. Catheter tip terminates near the superior cavoatrial junction.Mild calcified atherosclerosis of the aortic arch. Coronary arterycalcifications. Lungs and Pleura: No suspicious lung nodules to suggest metastaticdisease. Unchanged appearance of 5 mm right upper lobe pulmonary nodule.Calcified granulomas and calcified hilar lymph nodes. No pleural effusionsor suspicious thickening. Musculoskeletal and Body Wall: No clearly aggressive bone lesions.Multilevel degenerative changes of the spine. Stable postproceduralchanges in the left breast. Right chest wall port. Abdomen/Pelvis: Solid Abdominal Organs: No suspicious hepatic lesions. Status postcholecystectomy. Biliary ductal dilatation to the level of the ampulla. Nosuspicious pancreatic masses or lesions. Stable appearance of left adrenalmyelolipoma. Right adrenal nodule is stable in size measuring 2.2 cm. A1.2 cm peripheral enhancing nodule in the superior aspect of the rightkidney (series 3 image 78) is unchanged. GI Tract/Mesentery/Peritoneum: Stomach is normal. Duodenal diverticula arepresent. No bowel dilation, wall thickening, or mesenteric masses. Pelvic Viscera: Underdistended urinary bladder. Status post hysterectomy.Grossly stable size of lesion at the vaginal cuff. Mild thickening of theurinary bladder.. Lymph Nodes/Vasculature: A 0.9 cm left common iliac lymph node (series 3image 190) has increased in size, previously barely discernible. A further1.1 cm short axis diameter lymph node in posterior relation to the IVC(series 3 image 171) has increased in size, previously 0.7 cm. A 1.1 cmright groin lymph node (series 3 image 256) has also increased in size. Noabdominal aortic aneurysm. Moderate calcified atherosclerosis of theabdominal aorta. Free Fluid:No ascites Musculoskeletal and Body Wall:Unchanged appearance of fat, small, andlarge bowel containing ventral abdominal hernia without signs ofcomplication. Degenerative changes of the spine. No suspicious body walllesions. IMPRESSION: Chest: No evidence of disease progression. Abdomen/Pelvis: Vaginal cuff lesion was remain grossly stable in size.However there is increasing retroperitoneal/pelvic lymphadenopathy asdiscussed.. CRITICAL RESULT: No. COMMUNICATION: Per this written report. Drafted by Mark Whelan MD on 10/18/2023 8:37 AM Final report signed by Mark Whelan MD on 10/18/2023 8:52 AM us Penelope Dodson MD IMG CT PROCEDURES Fin al Result * CT Chest w IV Contrast (10/17/2023 6:25 PM EDT) Anatomical Region Laterality Modality Chest Computed Tomogra phy Impressions 10/18/2023 8:52 AM EDT Chest: No evidence of disease progression. Abdomen/Pelvis: Vaginal cuff lesion was remain grossly stable in size. However there is increasing retroperitoneal/pelvic lymphadenopathy as discussed.. CRITICAL RESULT: ?? No. COMMUNICATION: Per this written report. Drafted by Mark Whelan MD on 10/18/2023 8:37 AM Final report signed by Mark Whelan MD on 10/18/2023 8:52 AM Narrative 10/18/2023 8:52 AM EDT CLINICAL INDICATION: Ovarian cancer, staging TECHNIQUE: [...] nodules to suggest metastatic disease. Unchanged appearance of 5 mm right upper lobe pulmonary nodule. Calcified [...] the spine. No suspicious body wall lesions. Procedure Note Mark Whelan MD - 10/18/2023 CLINICAL INDICATION: Ovarian cancer, staging TECHNIQUE: Multiple axial CT images were obtained from thoracic inlet through pubicsymphysis following administration of IV contrast, Omnipaque 300, 100 mL.Reformatted images of the abdomen and pelvis in the coronal and sagittalplanes were generated from the axial data set to facilitate diagnosticaccuracy. Total DLP (Dose-Length Product): 651.01 mGy.cm. Please note: The reportedvalue represents the total of one or more individual components during theCT acquisition on this date and at this time, and as such, the same valuemay appear in more than one CT report depending on theinterpreting/reporting physicians. COMPARISON: CT chest abdomen pelvis June 16, 2023. FINDINGS: Chest: Lymph Nodes and Mediastinum: No lymphadenopathy by CT size criteria. Nomediastinal mass lesions. Stable appearance of the thyroid. Cardiovascular: The heart is normal in caliber. Thoracic great vessels arepatent. Catheter tip terminates near the superior cavoatrial junction.Mild calcified atherosclerosis of the aortic arch. Coronary arterycalcifications. Lungs and Pleura: No suspicious lung nodules to suggest metastaticdisease. Unchanged appearance of 5 mm right upper lobe pulmonary nodule.Calcified granulomas and calcified hilar lymph nodes. No pleural effusionsor suspicious thickening. Musculoskeletal and Body Wall: No clearly aggressive bone lesions.Multilevel degenerative changes of the spine. Stable postproceduralchanges in the left breast. Right chest wall port. Abdomen/Pelvis: Solid Abdominal Organs: No suspicious hepatic lesions. Status postcholecystectomy. Biliary ductal dilatation to the level of the ampulla. Nosuspicious pancreatic masses or lesions. Stable appearance of left adrenalmyelolipoma. Right adrenal nodule is stable in size measuring 2.2 cm. A1.2 cm peripheral enhancing nodule in the superior aspect of the rightkidney (series 3 image 78) is unchanged. GI Tract/Mesentery/Peritoneum: Stomach is normal. Duodenal diverticula arepresent. No bowel dilation, wall thickening, or mesenteric masses. Pelvic Viscera: Underdistended urinary bladder. Status post hysterectomy.Grossly stable size of lesion at the vaginal cuff. Mild thickening of theurinary bladder.. Lymph Nodes/Vasculature: A 0.9 cm left common iliac lymph node (series 3image 190) has increased in size, previously barely discernible. A further1.1 cm short axis diameter lymph node in posterior relation to the IVC(series 3 image 171) has increased in size, previously 0.7 cm. A 1.1 cmright groin lymph node (series 3 image 256) has also increased in size. Noabdominal aortic aneurysm. Moderate calcified atherosclerosis of theabdominal aorta. Free Fluid:No ascites Musculoskeletal and Body Wall:Unchanged appearance of fat, small, andlarge bowel containing ventral abdominal hernia without signs ofcomplication. Degenerative changes of the spine. No suspicious body walllesions. IMPRESSION: Chest: No evidence of disease progression. Abdomen/Pelvis: Vaginal cuff lesion was remain grossly stable in size.However there is increasing retroperitoneal/pelvic lymphadenopathy asdiscussed.. CRITICAL RESULT: No. COMMUNICATION: Per this written report. Drafted by Mark Whelan MD on 10/18/2023 8:37 AM Final report signed by Mark Whelan MD on 10/18/2023 8:52 AM us Penelope Dodson MD IMG CT PROCEDURES Fin al Result documented in this encounter Visit Diagnoses Diagnosis Carcinoma of fallopian tube, unspecified laterality (CMS/HCC) documented in this encounter Administered Medications Inactive Administered Medications - up to 3 most recent administrations Medication Order MAR Action Action Date Dose Rate Site heparin flush (porcine) 100 UNIT/ML injection 500 Units 500 Units, Intracatheter, Once as needed, 1 dose, Starting on Mon10/17/23 at 1755, Until Mon10/17/23 at 1831, Routine, Intraprocedure, line care Given 10/17/2023 6:31 PM EDT 500 Units iohexol (OMNIPaque) 300 MG/ML injection 100 mL 100 mL, Intravenous, Once in imaging, 1 dose, Starting on Mon10/17/23 at 1724, Until Mon10/17/23 at 1824, Routine, Imaging Protocol Orders Given 10/17/2023 6:24 PM EDT 100 mL iohexol (OMNIPaque) 9 MG/ML oral contrast 500 mL 500 mL, Oral, Once in imaging, 1 dose, Starting on Mon10/17/23 at 1724, Until Mon10/17/23 at 1824, Routine, Imaging Protocol Orders Given 10/17/2023 6:24 PM EDT 500 mL documented in this encounter Additional Health Concerns Assessment Noted Time A fall risk assessment has been complete d for the patient 10/04/2023 1:23 PM EST A Body Mass Index follow-up plan has been documented for the patient 08/19/2022 9:30 AM EST documented as of this encounter Care Teams Pound Attendant Relationship Specialty Start Date End Date Flaquita Dorsey DO [address] [place] [address] PCP - General 12/14/21 Aliyah Valencia MD [address] [place] [address] Referring Physician 03/10/21 Conrado Iqbal MD [address] [place] [phone] Service Attending Cardiology 08/19/22 documented as of this encounter
--- OUTSIDE RECORDS SUMMARY | 2024-07-10 11:55 | XMS_ITS | Encounter Summary ---
Author Organization Healthcare Address [address] [place] [address] Care Team Providers Care Psychology Lecturer Name Role Phone Aliyah Valencia MD Unavailable [phone] Flaquita Dorsey DO Primary Care Provider [phone] Conrado Iqbal MD Unavailable Encounter Details Date Type Department Care Team (Late st Contact Info) Description 10/13/2023 Telephone [facility] [address] [place] [address] Sadaf Perea, RN [facility] Social History Tobacco Use Types [...] Notes * Telephone Encounter - Sadaf Perea LPN - 10/13/2023 11:40 AM EDT Pt called wanting to confirm her CT scan for 10/16, and make sure the time was correct. Verified times and date with pt. She verbalized understanding. Sadaf Perea LPN documented in this encounter Plan of Treatment Upcoming Encounters Date Type Department Care Team (Late st Contact Info) Description 08/05/2024 8:00 AM EST Office Visit [facility] Gynecology 800 [facility] [address] [place] [address] Penelope Carmona MD [address] [facility] [address] [facility] [address] [place] [address] 08/05/2024 9:30 AM EST Appointment [facility] 1 [address] [place] [address] 02/26/2025 9:30 AM EDT Appointment [facility] [address] [facility] [address] [place] [address] 02/26/2025 10:30 AM EDT Office Visit [facility] [address] [facility], [address]nd [place] [address] Berenice Resendez, DETAIL SUPERVISOR [address] [facility] [address] [facility] [address] [place] [address] documented as of this encounter Visit Diagnoses Not on filedocumented in this encounter Additional Health Concerns Assessment Noted Time A fall risk assessment has been complete d for the patient 10/04/2023 1:23 PM EST A Body Mass Index follow-up plan has been documented for the patient 08/19/2022 9:30 AM EST documented as of this encounter Care Teams Psychology Lecturer Relationship Specialty Start Date End Date Flaquita Dorsey DO [address] [place] [address] PCP - General 12/14/21 Aliyah Valencia MD [address] [place] [address] Referring Physician 03/10/21 Conrado Iqbal MD [address] [place] [phone] Service Attending Cardiology 08/19/22 documented as of this encounter
--- OUTSIDE RECORDS SUMMARY | 2024-07-10 11:55 | XMS_ITS | Encounter Summary ---
Author Organization [facility] Address [address] [place], [place] [address] Care Team Providers Care Sweet Dough Mixer Name Role Phone Aliyah Valencia MD Unavailable [phone] Flaquita Dorsey DO Primary Care Provider [phone] Conrado Iqbal MD Unavailable Reason for Visit * Episode Based Medications (Routine) - Authorized Specialty Diagnoses / Procedures Referred By Contac t Referred To Contact Diagnoses Carcinoma of fallopian tube, unspecified laterality (CMS/HCC) Procedures Bevacizumab Every 21 Days Penelope Carmona MD [address] [place] [address] Phone: tel: fax: [facility] Infusion Clinic [address] [place] [address] Phone: tel: Referral ID Status Reason Start Date Expiration Date V isits Requested Visits Authorized [id number] Authorized 03/13/2023 09/11/2024 1 26 Encounter Details Date Type Department Care Team (Latest Contact Info) Description 10/25/2023 2:39 PM EDT - 10/25/2023 11:59 PM EDT Hospital Encounter [facility] [address] [place] [address] Carcinoma of fallopian tube, unspecified [...] Sign Reading Time Taken Comments Blood Pressure 109/71 10/25/2023 2:44 PM EDT Pulse 99 10/25/2023 2:44 PM EDT Temperature 36.7 ??C (98 ??F) 10/25/2023 2:44 PM EDT Respiratory Rate 20 10/25/2023 2:44 PM EDT Oxygen Saturation 97% 10/25/2023 2:44 PM EDT Inhaled Oxygen Concentration - - Weight 76.3 kg (168 lb 3.4 oz) 10/25/2023 2:44 P M EDT Height 160 cm (5' 3 ) 10/25/2023 2:44 PM EDT Body Mass Index 29.8 10/25/2023 2:44 PM EDT documented in this encounter Medications at Time of Discharge aspirin 81 MG chewable tablet Chew 1 tablet (81 mg) 1 (one) time each day. ergocalciferol (Vitamin D-2) 1.25 MG (72562 UT) capsule Take 1 capsule (50,000 Units) [...] AM EST Office Visit [facility] Gynecology [address] [place] [address] [address] [place] [address] Penelope Carmona MD 800 [facility] [address] [facility] [address] [place] [address] 08/05/2024 9:30 AM EST Appointment [facility] 1 [address] [place] [phone] 02/26/2025 9:30 AM EDT Appointment [facility] [place] [address] [address] [facility] [address] [place] [address] 02/26/2025 10:30 AM EDT Office Visit [facility] [address] [facility], [address] [place] [address] Berenice Resendez, EDUCATION SPECIALIST [address] [facility] [address] [place] [address] documented as of this encounter Visit Diagnoses [...] Specific administration requirements refer to [id number]., On Mon10/25/23 at 1615, For 1 dose, NS 100 mLIndications:Carcinoma of fallopian tube, unspecified laterality (CMS/HCC) New Bag 10/25/2023 4:30 PM EDT 1,200 mg 356 mL/hr documented in this encounter Additional Health Concerns Assessment Noted Time A fall risk assessment has been complete d for the patient 10/25/2023 2:44 PM EDT A Body Mass Index follow-up plan has been documented for the patient 08/19/2022 9:30 AM EST documented as of this encounter Care Teams Sweet Dough Mixer Relationship Specialty Start Date End Date Flaquita Dorsey DO [address] [place] [address] PCP - General 12/14/21 Aliyah Valencia MD [address] [place] [address] Referring Physician 03/10/21 Conrado Iqbal MD [address] [place] [address] Service Attending Cardiology 08/19/22 documented as of this encounter
--- OUTSIDE RECORDS SUMMARY | 2024-07-10 11:55 | XMS_ITS | Encounter Summary ---
Author Organization Healthcare Address [address] [place], [place] [id number] Care Team Providers Care Irrigation Service Technician Name Role Phone Aliyah Valencia MD Unavailable Flaquita Dorsey DO Primary Care Provider [phone]- [phone] Conrado Iqbal MD Unavailable Reason for Visit * Reason Comments Chemotherapy Encounter Details Date Type Department Care Team ([facility] st Contact Info) Description 11/15/2023 1:00 PM EDT Office Visit [facility] Gynecology [address] [facility] [address] [place] [phone] Penelope Carmona MD [address] [facility] [address] [facility] [address] [place] [address] Carcinoma of fallopian tube, unspecified [...] Sign Reading Time Taken Comments Blood Pressure 131/77 11/15/2023 1:25 PM EDT Pulse 95 11/15/2023 1:25 PM EDT Temperature 36.6 ??C (97.8 ??F) 11/15/2023 1:25 PM ED T Respiratory Rate 18 11/15/2023 1:25 PM EDT Oxygen Saturation 94% 11/15/2023 1:25 PM EDT Inhaled Oxygen Concentration - - Weight 76.4 kg (168 lb 6.9 oz) 11/15/2023 1:25 P M EDT Height 160 cm (5' 3 ) 11/15/2023 1:25 PM EDT Body Mass Index 29.84 11/15/2023 1:25 PM EDT documented in this encounter Miscellaneous Notes * Progress Notes - Penelope Carmona MD - 11/15/2023 1:00 PM EDT Primary Care Provider: Flaquita [...] were negative for metastatic disease. ER and [place] were strongly positive and HER-2 was negative. [...] ER positive in 90% of the cells, [place] positive in 95% of cells andHER-2 negative by IHC at 0. On 10/04/2016 she underwent a left needle localized lumpectomy. [place] lymph node biopsy was not performed as [...] vagina). Initiated neoadjuvant chemo with carbo/Taxol per LEAD TINNER followed by BSO/Omentectomy and adjuvant Carbotaxol. Recurrence in March 2019. Treated with carbo initially followed by Olaparib. 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 She is currently off of therapy. She follows with Dr. Hutchins in [facility] [place]. 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 Recurrence - First recurrence, quileute sensitive - CT 04/10/19 with 3 cmlesion at cuff - Ca125 12 (from 8) - MTB discussion: recommend trial if progression on quileute regimen or consider Parp for RAD 51 [...] ccy for choledocolithiasis 2019 (SGB) - Ca125: 29-1-6-7-7-9-8 - Started Parp inhibitor 09/2019 - Dose [...] concerning findings - Most recent Ca125 7.49 ([id number]) 06/30/2021 Recurrence - Third recurrence, quileute sensitive - CT 06/30/2021 shows vaginal cuff [...] disease seen 04/11/2022 Recurrence - Fourth recurrence, quileute resistant - CT 04/11/2022 with increase in [...] appropriate. Patient is here today for cycle 12 of Dana. Doing well. Does report some new fatigue. She is unsure if this may be related to a recent adjustment in her thyroid medication. Denies any further diarrhea episodes since last visit. Also denies CP episodes. Appetite is normal. Trace VB. PMH: h/o breast cancer x2, ?cervical cancer, [...] years ago, no drugs, retired, lives in [place]. FamHx: Father-prostate, MGma-colon. ROS: 14 pt ROS performed with pertinent positives and negatives as noted in HPI. ROS otherwise negative Objective Physical Exam: Vital Signs for this encounter: BSA: 1.84 meters squared Visit Vitals BP 131/77 (BP Location: Right arm, Patient Position: Sitting, BP Cuff Size: Adult) Pulse 95 Temp 36.6 ??C (97.8 ??F) (Temporal) Resp 18 Ht 1.6 m (5' 3 ) Wt 76.4 kg (168 lb 6.9 oz) LMP 11/17/1981 (Approximate) SpO2 94% BMI 29.84 kg/m?? OB Status Hysterectomy Smoking Status Former [...] by radiation for additional recurrence - Now quileute resistant - Started Dana/oral Cytoxan, held Dana after cycle 4 due to Chest pain - CT after 4 cycles showed interval resolution of vaginal mass and no further disease. - At visit 08/2022: Patient had additional CP episode and heart cath subsequently performed. No severe disease noted and toolmaker helper reports ok to continue Dana. However, also [...] 3 cycles to assess stability - Cycle 12 of Dana today. Continue Cytoxan. Cyclic Ca125 monitoring with imaging q 3-4 cycles. Problem 2: Encounter for chemotherapy Assessment and plan 2: - Proceed with cycle 12 of Bevacizumab 15 mg/kg today. Plan q 21 cycles until intolerance or progression. No dose limiting toxicities identified. Pre chemo labs reviewed. Continue intensive hematologic monitoring (CBC with diff, CMP). Also continue cyclic Ca125 tumor marker monitoring. Reviewed side effects to monitor for. Problem 3: Vaginal bleeding Assessment and plan 3: - Likely due to mass at cuff - Bleeding resolved after starting Daan/Cytoxan first verena - Bleeding recurred with recurrence of mass at cuff - Now minimal ( trace ) after 11 cycles of Dana. Monitor. Problem 4: History [...] cards at - Seen by cardiology at [facility] and acute workup negative but [...] early April - ED workup negative for WI - No further episodes since last cycle [...] with low threshold to stop cytoxan. - Today's labs are normal Problem 9: History of cervical cancer Assessment and plan 9: - Distant history, skilled nursing survivor. Summary of time spent in team [...] Progress Notes - Aliyah Saravia, PharmD - 11/15/2023 1:00 PM EDT Pharmacy Hematology/Oncology Treatment Plan [...] from 05/28/2001: pT1c, pN0, cM0, G2, ER+, [place]+, HER2: Unknown - Signed by Cara Greene MD on 06/19/2021 - Pathologic stage from 10/05/2016: Stage Unknown (rpT1c, pNX, cM0, G2, ER+, [place]+, HER2-) - Signed by Cara Greene MD [...] for which she has seen both an track rider and a physician who specializes in thyroid [...] 10/25/2023 Lab Results Component Value Date GLUCOSE 90 10/25/2023 CALCIUM 9.2 10/25/2023 NA 139 10/25/2023 K 4.3 10/25/2023 CO2 22 10/25/2023 CL 104 10/25/2023 BUN 27 (H) 10/25/2023 CREATININE 0.83 10/25/2023 Lab Results Component Value Date ALT 126 (H) 10/25/2023 AST 114 (H) 10/25/2023 ALKPHOS 197 (H) 10/25/2023 BILITOT 0.5 10/25/2023 Lab Results Component Value Date NEUTROABS 3.03 10/25/2023 Lab Results Component Value Date MG 1.4 (L) 01/09/2023 No results found for: TSH Lab Results Component Value Date URINEPRO Trace (A) 10/25/2023 Vitals: There were no vitals filed for [...] 10/04/23 Cycle 11: 10/25/23 Cycle 12: 11/15/23 Prior Chemotherapy History: hormone therapy for prior [...] weeks. Will follow-up at that time. Aliyah Saravia PharmD, BCPS documented in this encounter Plan of Treatment Upcoming Encounters Date Type Department Care Team (Late st Contact Info) Description 08/05/2024 8:00 AM EST Office Visit [facility]ne[facility] [address] [facility] [address] [place] [address] Penelope Carmona MD [address] [facility] [address] [facility] [address] [place] [address] 08/05/2024 9:30 AM EST Appointment [facility] [address] [place] [phone] 02/26/2025 9:30 AM EDT Appointment [facility] [place] [address] [address] [facility] [address] [place] [address] 02/26/2025 10:30 AM EDT Office Visit [facility] [address] [facility], 2nd [place] [address] Berenice Resendez, HEAD SOFT SUGAR OPERATOR [address] [facility] [address] [place] [phone] documented as of this encounter Procedures Procedure Name Priority Date/Time Associated Diagnosis Comments URINALYSIS MICROSCOPIC FOR UA REFLEX Routine 11/15/2023 1:30 PM EDT Carcinoma of fallopian tube, unspecified laterality (CMS/HCC) URINALYSIS WITH REFLEX MICROSCOPIC Routine 11/15/2023 1:30 PM EDT Carcinoma of fallopian tube, unspecified laterality (CMS/HCC) CBC WITH AUTO DIFFERENTIAL Routine 11/15/2023 1:22 PM EDT Carcinoma of fallopian tube, unspecified laterality (CMS/HCC) CA 125 Routine 11/15/2023 1:22 PM EDT Carcinoma of fallopian tube, unspecified laterality (CMS/HCC) COMPREHENSIVE METABOLIC PANEL, PLASMA Routine 11/15/2023 1:22 PM EDT Carcinoma of fallopian tube, unspecified laterality (CMS/HCC) documented in this encounter Results * Urinalysis Microscopic Examination (11/15/2023 1:30 PM EDT) Urine Urine specimen obtained by clean catch procedure / Unknown Non-blood Collection / Unknown 11/15/2023 1:30 PM EDT 11/15/2023 1:54 PM EDT Penelope Dodson MD LAB URINE ORDERABLES Final Result [facility] [address] [place] [address] * (ABNORMAL) Urinalysis with reflex microscopic (Culture NOT Included) (11/15/2023 1:30 PM EDT) Color, Urine Yellow LAB URINALYSIS - AUTOMATED METHOD 11/15/2023 2:40 PM EDT [facility] Clarity, Urine Clear LAB URINALYSIS - AUTOMATED METHOD 11/15/2023 2:40 PM EDT [facility] Spec [place], Urine 1.015 <=1.005 to >=1.030 LAB URINALYSIS - AUTOMATED METHOD 11/15/2023 2:40 PM EDT [facility] pH, Urine 6.0 4.5 to 8 LAB URINALYSIS - AUTOMATED METHOD 11/15/2023 2:40 PM EDT [facility] Protein, Urine Negative Negative mg/dL LAB URINALYSIS - AUTOMATED METHOD 11/15/2023 2:40 PM EDT [facility] Glucose, Urine Negative Negative mg/dL LAB URINALYSIS - AUTOMATED METHOD 11/15/2023 2:40 PM EDT [facility] Ketones, Urine Negative Negative mg/dL LAB URINALYSIS - AUTOMATED METHOD 11/15/2023 2:40 PM EDT [facility] Blood, Urine Moderate(A) Negative LAB URINALYSIS - AUTOMATED METHOD 11/15/2023 2:40 PM EDT [facility] Bilirubin, Urine Negative Negative LAB URINALYSIS - AUTOMATED METHOD 11/15/2023 2:40 PM EDT [facility] Urobilinogen, Urine 0.2 0.2 to 1.0 mg/dL LAB URINALYSIS - AUTOMATED METHOD 11/15/2023 2:40 PM EDT [facility] Leukocytes, Urine Moderate(A) Negative LAB URINALYSIS - AUTOMATED METHOD 11/15/2023 2:40 PM EDT [facility] Nitrite, Urine Negative Negative LAB URINALYSIS - AUTOMATED METHOD 11/15/2023 2:40 PM EDT [facility] RBC, Urine 4 - 10(A) 0 to 3 /HPF LAB URINALYSIS - AUTOMATED METHOD 11/15/2023 2:40 PM EDT [facility] Comment:This result was prev iously suppressed from the chart. WBC, Urine 11 - 20(A) 0 to 5 /HPF LAB URINALYSIS - AUTOMATED METHOD 11/15/2023 2:40 PM EDT [facility] Comment:This result was prev iously suppressed from the chart. Squamous Epithelial Cells 0 - 2 0 to 5 /HPF LAB URINALYSIS - AUTOMATED METHOD 11/15/2023 2:40 PM EDT [facility] Comment:This result was prev iously suppressed from the chart. Hyaline Casts 3 - 5 0 to 5 /LPF LAB URINALYSIS - AUTOMATED METHOD 11/15/2023 2:40 PM EDT [facility] Comment:This result was prev iously suppressed from the chart. Bacteria, Urine Negative Negative LAB URINALYSIS - AUTOMATED METHOD 11/15/2023 2:40 PM EDT [facility] Comment:This result was prev iously suppressed from the chart. Urine Urine specimen obtained by clean catch procedure / Unknown Non-blood Collection / Unknown 11/15/2023 1:30 PM EDT 11/15/2023 1:54 PM EDT Penelope Dodson MD LAB URINE ORDERABLES Final Result Performing Organization Address [facility] Co de Phone Number [facility] [address] [place] [address] * CA 125 (11/15/2023 1:22 PM EDT) CA 125 8.96 <=38.00 U/mL 11/15/2023 2:30 PM EDT [facility] Blood Blood sample taken from central line / Unknown (Port) Long-term Catheter / Unknown 11/15/2023 1:22 PM EDT 11/15/2023 1:54 PM EDT Narrative [facility] - 11/15/2023 2:30 PM EDT Performed by Stephie electrochemiluminescent immunoassay. Results obtained with different test methods or kits cannot be used interchangeably. Penelope Dodson MD LAB BLOOD ORDERABLES Final Result Performing Organization Address [facility] de Phone Number [facility] [address] [place] [address] * (ABNORMAL) Comprehensive metabolic panel (11/15/2023 1:22 PM EDT) Glucose, Plasma 110(H) 74 - 99 mg/dL 11/15/2023 2:24 PM EDT [facility] BUN, Plasma 23 8 - 23 mg/dL 11/15/2023 2:24 PM EDT [facility] Creatinine, Plasma 0.90 0.60 - 1.10 mg/dL 11/15/2023 2:24 PM EDT [facility] BUN/Creatinine Ratio 26 11/15/2023 2:24 PM EDT [facility] Sodium, Plasma 137 136 - 145 mmol/L 11/15/2023 2:24 PM EDT [facility] Potassium, Plasma 3.8 3.7 - 4.8 mmol/L 11/15/2023 2:24 PM EDT [facility] Chloride, Plasma 102 97 - 107 mmol/L 11/15/2023 2:24 PM EDT [facility] CO2, Plasma 26 22 - 29 mmol/L 11/15/2023 2:24 PM EDT [facility] Anion Gap 9 6 - 16 mmol/L 11/15/2023 2:24 PM EDT [facility] Total Calcium, Plasma 9.4 8.9 - 10.2 mg/dL 11/15/2023 2:24 PM EDT [facility] Total Protein 6.9 6.3 - 7.9 g/dL 11/15/2023 2:24 PM EDT [facility] Albumin, Plasma 4.1 3.5 - 5.2 g/dL 11/15/2023 2:24 PM EDT [facility] AST, Plasma 27 10 - 35 U/L 11/15/2023 2:24 PM EDT [facility] ALT, Plasma 14 10 - 35 U/L 11/15/2023 2:24 PM EDT [facility] Alkaline Phosphatase, Plasma 70 46 - 142 U/L 11/15/2023 2:24 PM EDT [facility] Total Bilirubin, Plasma 0.4 0.2 - 1.1 mg/dL 11/15/2023 2:24 PM EDT [facility] eGFRcr 65.6 mL/min/1.7 3m*2 11/15/2023 2:24 PM EDT [facility] Comment:Reported eGFRcr in m L/min/1.73m2 is based the CKD-EPI 2020 equation that does not use a race coefficient. Blood Blood sample taken from central line / Unknown (Port) Long-term Catheter / Unknown 11/15/2023 1:22 PM EDT 11/15/2023 1:54 PM EDT us Penelope Dodson MD LAB BLOOD ORDERABLES Final Result [facility] [address] [place] [address] * (ABNORMAL) CBC and differential (11/15/2023 1:22 PM EDT) WBC Count 4.49 3.70 - 10.30 10*3/uL LAB HEMATOLOGY METHOD 11/15/2023 1:50 PM EDT [facility] RBC Count 3.80(L) 3.90 - 5.20 10*6/uL LAB HEMATOLOGY METHOD 11/15/2023 1:50 PM EDT [facility] HGB 13.3 11.2 - 15.7 g/dL LAB HEMATOLOGY METHOD 11/15/2023 1:50 PM EDT [facility] HCT 40.1 34.0 - 45.0 % LAB HEMATOLOGY METHOD 11/15/2023 1:50 PM EDT [facility] Platelet Count 196 155 - 369 10*3/uL LAB HEMATOLOGY METHOD 11/15/2023 1:50 PM EDT [facility] MCV 106(H) 79 - 98 fL LAB HEMATOLOGY METHOD 11/15/2023 1:50 PM EDT [facility] MCH 35.0(H) 26.0 - 32.0 pg LAB HEMATOLOGY METHOD 11/15/2023 1:50 PM EDT [facility] MCHC 33.2 30.7 - 35.5 g/dL LAB HEMATOLOGY METHOD 11/15/2023 1:50 PM EDT [facility] RDW 15.3(H) 11.5 - 14.5 % LAB HEMATOLOGY METHOD 11/15/2023 1:50 PM EDT [facility] MPV 9.5 8.8 - 12.5 fL LAB HEMATOLOGY METHOD 11/15/2023 1:50 PM EDT [facility] nRBC 0.0 <=0.0 per 100 WBCs LAB HEMATOLOGY METHOD 11/15/2023 1:50 PM EDT [facility] Differential Type Automated LAB HEMATOLOGY METHOD 11/15/2023 1:50 PM EDT [facility] Neutrophils % 73.0 % LAB HEMATOLOGY METHOD 11/15/2023 1:50 PM EDT [facility] Lymphocytes % 14.0 % LAB HEMATOLOGY METHOD 11/15/2023 1:50 PM EDT [facility] Monocytes % 7.0 % LAB HEMATOLOGY METHOD 11/15/2023 1:50 PM EDT [facility] Eosinophils % 5.0 % LAB HEMATOLOGY METHOD 11/15/2023 1:50 PM EDT [facility] Basophils % 1.0 % LAB HEMATOLOGY METHOD 11/15/2023 1:50 PM EDT [facility] Immature Granulocytes % 0.0 % LAB HEMATOLOGY METHOD 11/15/2023 1:50 PM EDT [facility] Neutrophils Absolute 3.29 1.60 - 6.10 10*3/uL LAB HEMATOLOGY METHOD 11/15/2023 1:50 PM EDT [facility] Lymphocytes Absolute 0.63(L) 1.20 - 3.90 10*3/uL LAB HEMATOLOGY METHOD 11/15/2023 1:50 PM EDT [facility] Monocytes Absolute 0.30 0.30 - 0.90 10*3/uL LAB HEMATOLOGY METHOD 11/15/2023 1:50 PM EDT [facility] Eosinophils Absolute 0.22 0.00 - 0.50 10*3/uL LAB HEMATOLOGY METHOD 11/15/2023 1:50 PM EDT [facility] Basophils Absolute 0.04 0.00 - 0.10 10*3/uL LAB HEMATOLOGY METHOD 11/15/2023 1:50 PM EDT [facility] Immature Granulocytes Absolute 0.01 0.00 - 0.06 10*3/uL LAB HEMATOLOGY METHOD 11/15/2023 1:50 PM EDT [facility] Blood Blood sample taken from central line / Unknown (Port) Long-term Catheter / Unknown 11/15/2023 1:22 PM EDT 11/15/2023 1:48 PM EDT Narrative [facility] - 11/15/2023 1:50 PM EDT Therapeutic decision making should be based on absolute values, rather than percentages. Penelope Dodson MD LAB BLOOD ORDERABLES Final Result [facility] [address] [place] [id number] documented in this encounter Visit Diagnoses Diagnosis [...] documented as of this encounter Care Teams Irrigation Service Technician Relationship Specialty Start Date End Date Flaquita Dorsey DO [address] [place] [address] PCP - General 12/14/21 Aliyah Valencia MD [address] [place], [place] [id number] Referring Physician 03/10/21 Conrado Iqbal MD [address] [place] [phone] Service Attending Cardiology 08/19/22 documented as of this encounter
--- OUTSIDE RECORDS SUMMARY | 2024-07-10 11:55 | XMS_ITS | Encounter Summary ---
Author Organization [facility] Address [address] [place], [place] [id number] Care Team Providers Care Cnc Field Service Engineer Name Role Phone Aliyah Valencia MD Unavailable [phone] Flaquita Dorsey DO Primary Care Provider [phone] Conrado Iqbal MD Unavailable Reason for Visit * Episode Based Medications (Routine) - Authorized Specialty Diagnoses / Procedures Referred By Contac t Referred To Contact Diagnoses Carcinoma of fallopian tube, unspecified laterality (CMS/HCC) Procedures Bevacizumab Every 21 Days Penelope Carmona MD [address] [address] Phone: tel: fax: [facility] Infusion Clinic [address] [place] [address] Phone: tel: Referral ID Status Reason Start Date Expiration Date V isits Requested Visits Authorized [id number] Authorized 03/13/2023 09/11/2024 1 26 Encounter Details Date Type Department Care Team (Latest Contact Info) Description 12/06/2023 2:00 PM EDT - 12/06/2023 11:59 PM EDT Hospital Encounter [facility] [address] [place] [address] Carcinoma of fallopian tube, unspecified [...] Sign Reading Time Taken Comments Blood Pressure 134/72 12/06/2023 2:01 PM EDT Pulse 65 12/06/2023 2:01 PM EDT Temperature 36.6 ??C (97.9 ??F) 12/06/2023 2:01 PM ED T Respiratory Rate 18 12/06/2023 2:01 PM EDT Oxygen Saturation 97% 12/06/2023 2:01 PM EDT Inhaled Oxygen Concentration - - Weight 74.2 kg (163 lb 9.3 oz) 12/06/2023 2:01 P M EDT Height 160 cm (5' 3 ) 12/06/2023 2:01 PM EDT Body Mass Index 28.98 12/06/2023 2:01 PM EDT documented in this encounter Medications at Time of Discharge aspirin 81 MG chewable tablet Chew 1 tablet (81 mg) 1 (one) time each day. ergocalciferol (Vitamin D-2) 1.25 MG (88474 UT) capsule Take 1 capsule (50,000 Units) [...] Description 08/05/2024 8:00 AM EST Office Visit [facility] Gynecology [address] [place] [address] [address] [place] [address] Penelope Carmona MD 800 [facility] [address] [facility] [address] [place] [address] 08/05/2024 9:30 AM EST Appointment [facility] [address] [place] [phone] 02/26/2025 9:30 AM EDT Appointment [facility] Breast [facility] [place] [address] [address] [facility] [address] [place] [address] 02/26/2025 10:30 AM EDT Office Visit [facility] [address] [facility], [address]nd [place] [address] Berenice Resendez, GYRO MECHANIC [address] [facility] [address] [place] [address] documented as of this encounter Visit Diagnoses [...] Specific administration requirements refer to [id number]., On Mon12/06/23 at 1545, For 1 dose, NS 100 mLIndications:Carcinoma of fallopian tube, unspecified laterality (CMS/HCC) New Bag 12/06/2023 3:58 PM EDT 1,200 mg 356 mL/hr documented in this encounter Additional Health Concerns Assessment Noted Time A fall risk assessment has been complete d for the patient 12/06/2023 2:01 PM EDT A Body Mass Index follow-up plan has been documented for the patient 08/19/2022 9:30 AM EST documented as of this encounter Care Teams Cnc Field Service Engineer Relationship Specialty Start Date End Date Flaquita Dorsey DO [address] [place] [address] PCP - General 12/14/21 Aliyah Valencia MD [address] [place] [place] [address] Referring Physician 03/10/21 Conrado Iqbal MD [address] [place] [address] Service Attending Cardiology 08/19/22 documented as of this encounter
--- OUTSIDE RECORDS SUMMARY | 2024-07-10 11:56 | XMS_ITS | Encounter Summary ---
Author Organization [facility] Address [address] [place], [place] [id number] Care Team Providers Care [facility] Supervisor Name Role Phone Aliyah Valencia MD Unavailable [phone] Flaquita Dorsey DO Primary Care Provider [phone] Conrado Iqbal MD Unavailable Reason for Visit * Episode Based Medications (Routine) - Authorized Specialty Diagnoses / Procedures Referred By Contac t Referred To Contact Diagnoses Carcinoma of fallopian tube, unspecified laterality (CMS/HCC) Procedures Bevacizumab Every 21 Days Penelope Carmona MD [address] [address] Phone: tel: fax: [facility] In[facility] [address] [place] [address] Phone: tel: Referral ID Status Reason Start Date Expiration Date V isits Requested Visits Authorized [id number] Authorized 03/13/2023 09/11/2024 1 26 Encounter Details Date Type Department Care Team (Latest Contact Info) Description 08/23/2023 3:19 PM EST - 08/23/2023 11:59 PM EST Hospital Encounter [facility] In[facility] [address] [place] [address] Carcinoma of fallopian tube, unspecified [...] Date Recorded Patient Health Questionnaire-2 Score 0 08/23/2023 PHQ-2A Answer Date Recorded Patient Health Questionnaire-2 Score 0 07/10/2023 Comments No Sex and Gender Information Value Date Recorded Sex Assigned at Not on file Legal Sex Female 8:51 PM EDT Gender Identity Not on file Sexual Orientation Not on file documented as of this encounter Last Filed Vital Signs Vital Sign Reading Time Taken Comments Blood Pressure 114/77 08/23/2023 3:22 PM EST Pulse 88 08/23/2023 3:22 PM EST Temperature 36.6 ??C (97.8 ??F) 08/23/2023 3:22 PM ES T Respiratory Rate 18 08/23/2023 3:22 PM EST Oxygen Saturation 95% 08/23/2023 3:22 PM EST Inhaled Oxygen Concentration - - Weight 75.9 kg (167 lb 5.3 oz) 08/23/2023 3:22 P M EST Height 160 cm (5' 3 ) 08/23/2023 3:22 PM EST Body Mass Index 29.64 08/23/2023 3:22 PM EST documented in this encounter Medications at Time of Discharge aspirin 81 MG chewable tablet Chew 1 tablet (81 mg) 1 (one) time each day. ergocalciferol (Vitamin D-2) 1.25 MG (59807 UT) capsule Take 1 capsule (50,000 Units) [...] 1 (one) time each day. 30 capsule 2 06/19/2023 4 Flaxseed, Linseed, (Flaxseed Oil) 1000 MG [...] AM EST Office Visit [facility] [address] [facility] [address] [place] [id number] Penelope Carmona MD [address] [facility] [address] [facility] [address] [place] [address] 08/05/2024 9:30 AM EST Appointment [facility] [address] [place] [phone] 02/26/2025 9:30 AM EDT Appointment [facility] [address] [facility] [address] [place] [address] 02/26/2025 10:30 AM EDT Office Visit [facility] [address] [facility] [place] [address] Berenice Resendez, SAL[employer]OP[employer]EC[employer]IVE [address] [facility] [address] [place] [address] documented as of this encounter [...] Specific administration requirements refer to [id number]., On Mon08/23/23 at 1645, For 1 dose, NS 100 mLIndications:Carcinoma of fallopian tube, unspecified laterality (CMS/HCC) New Bag 08/23/2023 4:57 PM EST 1,200 mg 356 mL/hr documented in this encounter Additional Health Concerns Assessment Noted Time A fall risk assessment has been complete d for the patient 08/23/2023 3:22 PM EST A Body Mass Index follow-up plan has been documented for the patient 08/19/2022 9:30 AM EST documented as of this encounter Care Teams [facility] Supervisor Relationship Specialty Start Date End Date Flaquita Dorsey DO [address] [place] [address] PCP - General 12/14/21 Aliyah Valencia MD [address] [place] [place] [address] Referring Physician 03/10/21 Conrado Iqbal MD [address] [place] [address] Service Attending Cardiology 08/19/22 documented as of this encounter
--- OUTSIDE RECORDS SUMMARY | 2024-07-10 11:56 | XMS_ITS | Encounter Summary ---
Author Organization Healthcare Address [address] [place], [place] [id number] Care Team Providers Care Estate Administrator Name Role Phone Aliyah Valencia MD Unavailable [phone] Flaquita Dorsey DO Primary Care Provider [phone] Conrado Iqbal MD Unavailable Reason for Visit * Reason Comments Chemotherapy Encounter Details Date Type Department Care Team ([facility] st Contact Info) Description 09/13/2023 1:00 PM EST Office Visit [facility] [address] [facility] [address] [place] [phone] Penny Carmona MD [address] [facility] [address] [facility] [address] [place] [address] Carcinoma of fallopian tube, unspecified [...] Date Recorded Patient Health Questionnaire-2 Score 0 09/13/2023 PHQ-2A Answer Date Recorded Patient Health Questionnaire-2 Score 0 07/10/2023 Comments No Sex and Gender Information Value Date Recorded Sex Assigned at Not on file Legal Sex Female 8:51 PM EDT Gender Identity Not on file Sexual Orientation Not on file documented as of this encounter Last Filed Vital Signs Vital Sign Reading Time Taken Comments Blood Pressure 127/72 09/13/2023 1:02 PM EST Pulse 78 09/13/2023 1:02 PM EST Temperature 36.4 ??C (97.6 ??F) 09/13/2023 1:02 PM ES T Respiratory Rate 14 09/13/2023 1:02 PM EST Oxygen Saturation 95% 09/13/2023 1:02 PM EST Inhaled Oxygen Concentration - - Weight 77.1 kg (169 lb 15.6 oz) 09/13/2023 1:02 PM EST Height 160 cm (5' 3 ) 09/13/2023 1:02 PM EST Body Mass Index 30.11 09/13/2023 1:02 PM EST documented in this encounter Miscellaneous Notes * Addendum Note - Penny Carmona MD - 09/13/2023 1:00 PM ESTAddended by: PENNY CARMONA on: 09/13/2023 02:09 PM Modules accepted: Orders * Progress Notes - Aliyah Saravia PharmD - 09/13/2023 1:00 PM EST Pharmacy Hematology/Oncology Treatment Plan Note Daniela John is a 77 y.o. 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 Cancer Staging Carcinoma of fallopian tube (CMS/HCC) Staging form: Ovary, Fallopian Tube, and Primary Peritoneal Carcinoma, AJCC 8th Edition - Pathologic stage from 03/15/2018: FIGO Stage IIA, calculated as Stage Unknown (pT2a, pNX, cM0) - Signed by Penny Carmona MD on 03/31/2021 Malignant neoplasm of left breast in female, estrogen receptor positive (CMS/HCC) Staging form: Breast, AJCC 8th Edition - Pathologic stage from 05/28/2001: pT1c, pN0, cM0, G2, ER+, AL+, HER2: Unknown - Signed by Cara Greene MD on 06/19/2021 - Pathologic stage from 10/05/2016: Stage Unknown (rpT1c, pNX, cM0, G2, ER+, AL+, HER2-) - Signed by Cara Greene MD on 06/19/2021 Study Patient: No Treatment Protocol: Bevacizumab IV every 21 days + continuous PO cytoxan Treatment Plan reviewed for: [x] Follow-Up Clinical Review Cycle 9 Day 1 [x] Follow-Up Clinical Review for Continuous Oral Therapy Interval History: Patient's CT scan from 03/13 demonstrated slight progression while on cytoxan PO. Re-initiated bevacizumab IV maintenance therapy every 21 days in addition to continuous cytoxan therapy due to prior response and cardiac monitoring WNL. May scans demonstrate response to treatment. Ms John was seen in clinic today. UA 08/23 with no protein, repeat with next cycle. Appropriate to proceed with treatment. Dosing Wt: 84 kg Today's Wt: Wt Readings from Last 1 Encounters: 08/23/23 75.9 kg (167 lb 5.3 oz) Dosing Ht: 160 cm Dosing BSA: 1.88 m2 Recent Labs: Labs drawn today and also available for 08/16. Lab Results Component Value Date WBC 6.54 08/23/2023 HGB 13.0 08/23/2023 HCT 39.5 08/23/2023 MCV 104 (H) 08/23/2023 PLT 184 08/23/2023 Lab Results Component Value Date GLUCOSE 105 (H) 08/23/2023 CALCIUM 9.1 08/23/2023 NA 142 08/23/2023 K 4.2 08/23/2023 CO2 23 08/23/2023 CL 106 08/23/2023 BUN 26 (H) 08/23/2023 CREATININE 0.77 08/23/2023 Lab Results Component Value Date ALT 50 (H) 08/23/2023 AST 100 (H) 08/23/2023 ALKPHOS 114 08/23/2023 BILITOT 0.7 08/23/2023 Lab Results Component Value Date NEUTROABS 5.60 08/23/2023 Lab Results Component Value Date MG 1.4 (L) 01/09/2023 No results found for: TSH Lab Results Component Value Date URINEPRO Negative 08/23/2023 Vitals: There were no vitals filed for [...] 08/02/23 Cycle 8: 08/23/23 Cycle 9: 09/13/23 Prior Chemotherapy History: hormone therapy for prior [...] at that time. Aliyah Saravia PharmD, BCPS * Progress Notes - Hayley García MD - 09/13/2023 1:00 PM EST Primary Care Provider: Flaquita Dorsey DO History of Present Illness: Chief complaint: 77 yo female here for clearance for and [...] were negative for metastatic disease. ER and AL were strongly positive and HER-2 was negative. [...] ER positive in 90% of the cells, AL positive in 95% of cells andHER-2 negative by IHC at 0. On 10/04/2016 she underwent a left needle localized lumpectomy. [place] lymph node biopsy was not performed as [...] vagina). 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 Recurrence in March 2019. Treated with carbo initially followed by Olaparib. 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 She is currently off of therapy. She follows with Dr. Hutchins in [facility]. Malignant neoplasm of left breast in female, estrogen receptor positive (CMS/HCC) 05/28/2001 Cancer Staged Staging form: Breast, AJCC 8th Edition, Pathologic stage from 05/28/2001: pT1c, pN0, cM0, G2, ER+, AL+, HER2: Unknown - Signed by Cara Greene MD on 06/19/2021 10/05/2016 Cancer Staged Staging form: Breast, AJCC 8th Edition, Pathologic stage from 10/05/2016: Stage Unknown (rpT1c, pNX, cM0, G2, ER+, AL+, HER2-) - Signed by Cara Greene MD [...] Unknown (pT2a, pNX, cM0) - Signed by Penny Dodson MD on 03/31/2021 03/15/2018 Initial Diagnosis [...] additional cycles of Carbo/Taxol 09/12/2018 - Ca125 98-83-08-9-8 - Post treatment CT 10/01/2018 JARED 09/2018 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 Recurrence - First recurrence, [place] sensitive - CT 04/10/19 with 3 cmlesion at cuff - Ca125 12 (from 8) - MTB discussion: recommend trial if progression on [place] regimen or consider Parp for RAD 51 [...] ccy for choledocolithiasis 2019 (SGB) - Ca125: 64-9-2-7-7-9-8 - Started Parp inhibitor 09/2019 - Dose [...] 7.49 () 06/30/2021 Recurrence - Third recurrence, [place] sensitive - CT 06/30/2021 shows vaginal cuff [...] disease seen 04/11/2022 Recurrence - Fourth recurrence, [place] resistant - CT 04/11/2022 with increase in [...] Chemotherapy - Avastin started 03/20/2023 - Ca125 7.38-7.51-6.5-6.71-6.26-6.58-6.94 - CT 06/16/2023: Stable to decreased size of vaginal cuff disease, no other new findings Interval updates to history: Oncologic treatment history as described above reviewed today as well as PMH/PSH/Meds/All/SH/FH, with updates made as appropriate. Patient is here today for cycle 9 of Dana. Doing very well. No appetite changes. No N/V. No severe headaches. Feet and fingertips with stable neuropathies. Reports photophobia so she has to wear sunglasses indoors, seeing eye doctor. PMH: h/o breast cancer x2, ?cervical cancer, [...] years ago, no drugs, retired, lives in [place]. FamHx: Father-prostate, MGma-colon. ROS: 14 pt ROS performed with pertinent positives and negatives as noted in HPI. ROS otherwise negative Objective Physical Exam: Vital Signs for this encounter: BSA: 1.85 meters squared Visit Vitals BP 127/72 (BP Location: Right arm, Patient Position: Sitting, BP Cuff Size: Adult) Pulse 78 Temp 36.4 ??C (97.6 ??F) (Temporal) Resp 14 Ht 1.6 m (5' 3 ) Wt 77.1 kg (169 lb 15.6 oz) LMP 11/17/1981 (Approximate) SpO2 95% BMI 30.11 kg/m?? OB Status Hysterectomy Smoking Status Former BSA 1.85 m?? Physical Exam Vitals and nursing note reviewed. Constitutional: General: She is not in acute distress. Appearance: Normal appearance. She is well-developed. She is obese. She is not ill-appearing or diaphoretic. HENT: Head: Normocephalic and atraumatic. Eyes: General: No scleral icterus. Conjunctiva/sclera: Conjunctivae normal. Comments: Wearing sunglasses Cardiovascular: Rate and Rhythm: Normal rate. Pulmonary: Effort: Pulmonary effort is normal. No respiratory distress. Abdominal: General: There is no distension. Palpations: Abdomen is soft. Tenderness: There is no abdominal tenderness. Skin: General: Skin is warm and dry. Coloration: Skin is not jaundiced. Findings: No bruising. Neurological: Mental Status: She is alert and oriented to person, place, and time. Mental status is at baseline. Psychiatric: Mood and Affect: Mood normal. Behavior: Behavior normal. Thought Content: Thought content normal. Judgment: Judgment normal. Performance Status: Asymptomatic PS= 0 Results: CBC WBC 6.54 Hgb 13.0 PLT 184 HCT 39.5 Lab Results Component Value Date NEUTROABS 5.60 08/23/2023 BASIC METABOLIC PANEL Na 142 Cl 106 BUN 26 Gluc 105 K 4.2 Co2 23 Creat 0.77 LIVER FUNCTION TESTING Tot Prot 6.9 AST 100 Tot bili 0.7 ALT 50 Alkphos 114 Ca 9.1 Mg 1.4 Phos No results found for requested labs within last 365 days. === 06/16/23 === CT ABDOMEN PELVIS W IV CONTRAST - Narrative - CLINICAL INDICATION: Ovarian cancer, monitor TECHNIQUE: Multiple axial CT images were obtained from thoracic inlet through pubic symphysis following administration of IV contrast, Omnipaque 300, 100 mL. Reformatted images of the abdomen and pelvis in the coronal and sagittal planes were generated from the axial data set to facilitate diagnostic accuracy. Total DLP (Dose-Length Product): 458.27 mGy.cm. Please note: The reported value represents the total of one or more individual components during the CT acquisition on this date and at this time, and as such, the same value may appear in more than one CT report depending on the interpreting/reporting physicians. COMPARISON: CT chest abdomen pelvis March 13, 2023. FINDINGS: Chest: Lymph Nodes and Mediastinum: [...] pulmonary nodule. Calcified granulomas and calcified hilar adenopathy. No pleural effusions or suspicious thickening. Musculoskeletal and Body Wall: No clearly aggressive bone lesions. Multilevel degenerative changes of the spine. Stable postprocedural changes in the left breast. Right chest wall port. Abdomen/Pelvis: Solid Abdominal Organs: No suspicious hepatic lesions or masses. Status post cholecystectomy. Biliary ductal dilatation to the level of the ampulla. No suspicious pancreatic masses or lesions, diffuse fatty infiltration. Stable appearance of left adrenal angiomyolipoma and the 14 mm peripherally enhancing lesion in the superior pole of the right kidney. Right indeterminate adrenal nodule is stable in size measuring 2.2 cm. GI Tract/Mesentery/Peritoneum: Stomach is normal. Duodenal diverticula are present. No bowel dilation, wall thickening, or mesenteric masses. Pelvic Viscera: Underdistended urinary bladder. Status post hysterectomy. Stable to borderline decreased size of lesion at the vaginal cuff. No suspicious masses or lesions in the pelvis. Lymph Nodes/Vasculature: No suspicious lymphadenopathy. The vasculature is patent. No abdominal aortic aneurysm. Moderate calcified atherosclerosis of the abdominal aorta. Free Fluid:No ascites Musculoskeletal and Body Wall:Unchanged appearance of fat, small, and large bowel containing ventral abdominal hernia without signs of complication. Degenerative changes of the spine. No suspicious body wall lesions. - Impression - Chest: No evidence of disease progression. Abdomen/Pelvis: Stable to borderline decreased size of vaginal cuff lesion. CRITICAL RESULT: No. COMMUNICATION: Per this written report. By electronically signing this report, I, the attending physician, attest that I have personally reviewed the images/data for the above examination(s) and agree with the final edited report. Drafted by Doron Lizarraga MD on 06/16/2023 3:46 PM Final report signed by Mark Whelan MD on 06/16/2023 4:39 PM Assessment/Plan Problem 1: Recurrent serous fallopian tube cancer (right) Assessment and plan 1: - s/p chemo/debulking at initial diagnosis - Has had additional chemo for recurrence followed by radiation for additional recurrence - Now [place] resistant - Started Dana/oral Cytoxan, held Dana after cycle 4 due to Chest pain - CT after 4 cycles showed interval resolution of vaginal mass and no further disease. - At visit 08/2022: Patient had additional CP episode and heart cath subsequently performed. No severe disease noted and fibre technologist reports ok to continue Dana. However, also [...] stable to improved disease at cuff. - Cycle 9 of Dana today. Continue Cytoxan. Cyclic Ca125 monitoring with imaging q 3-4 cycles. - CT CAP ordered Problem 2: Encounter for chemotherapy Assessment and plan 2: - Proceed with cycle 9 of Bevacizumab 15 mg/kg today. Plan q 21 cycles until intolerance or progression. No dose limiting toxicities identified. Pre chemo labs reviewed. Continue cyclic hematologic monitoring (CBC with diff, CMP). Also continue cyclic Ca125 tumor marker monitoring. Reviewed side effects to monitor for. Problem 3: Vaginal bleeding Assessment and plan 3: - Likely due to mass at cuff - Bleeding resolved after starting Dana/Cytoxan first verena - Bleeding recurred with recurrence of mass at cuff - Now minimal after 8 cycles of Dana. Monitor. Problem 4: History [...] at - Seen by cardiology at [facility] and acute workup negative but diagnostic [...] and is accepting of the risks. 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 Summary of time spent in team based care today includes the following activities performed by myself: review of prior documentation in preparation for visit, review of weekly labs and any other test results, obtaining and reviewing medical history, appropriate focused physical exam, discussion of exam and/or test results, discussion of plan of care, lab orders, phlebotomy, prescription submissionand donald review, CT order/request, chemo related decision making Pt seen and discussed w/ . Cuong García MD GYO Fellow MD ADRIANA Honeycutt [facility] GYNECOLOGY [address] [address] [address] [facility] [address] Dept: [phone] Dept Loc: [phone] Cosigned by Penny Carmona MD at 09/13/2023 1:44 PM EST Associated attestation - Penny Carmona MD - 09/13/2023 1:44 PM EST I saw and evaluated the patient with the resident/fellow. I discussed the case with the resident/fellow and agree with the findings and plan as documented. documented in this encounter Plan of Treatment Upcoming Encounters Date Type Department Care Team (Late st Contact Info) Description 08/05/2024 8:00 AM EST Office Visit [facility] Gynecology [address] [address] [place] [phone] Penny Carmona MD [address] [facility] [address] [address] 08/05/2024 9:30 AM EST Appointment [facility] Infusion Clinic [address] [place] [address] 02/26/2025 9:30 AM EDT Appointment [facility] Breast Care Center [facility] [address] [facility] [address] [place] [address] 02/26/2025 10:30 AM EDT Office Visit [facility] [address] [place] [address] Berenice Resendez, ERADICATOR [address] [place] [address] documented as of this encounter Procedures Procedure Name Priority Date/Time Associated Diagnosis Comments CBC WITH AUTO DIFFERENTIAL Routine 09/13/2023 1:00 PM EST Carcinoma of fallopian tube, unspecified laterality (CMS/HCC) CA 125 Routine 09/13/2023 1:00 PM EST Carcinoma of fallopian tube, unspecified laterality (CMS/HCC) COMPREHENSIVE METABOLIC PANEL, PLASMA Routine 09/13/2023 1:00 PM EST Carcinoma of fallopian tube, unspecified laterality (CMS/HCC) documented in this encounter Results * CA 125 (09/13/2023 1:00 PM EST) CA 125 6.72 <=38.00 U/mL 09/13/2023 2:40 PM EST [facility] Blood Blood sample taken from central line / Unknown (Port) Long-term Catheter / Unknown 09/13/2023 1:00 PM EST 09/13/2023 1:59 PM EST Narrative [facility] - 09/13/2023 2:40 PM EST Performed by Stephie electrochemiluminescent immunoassay. Results obtained with different test methods or kits cannot be used interchangeably. us Penny Dodson MD LAB BLOOD ORDERABLES Final Result [facility] [address] [place] [address] * (ABNORMAL) Comprehensive metabolic panel (09/13/2023 1:00 PM EST) Glucose, Plasma 73(L) 74 - 99 mg/dL 09/13/2023 2:31 PM [facility] BUN, Plasma 19 8 - 23 mg/dL 09/13/2023 2:[address] [facility] Creatinine, Plasma 0.75 0.60 - 1.10 mg/dL 09/13/2023 2:[address] [facility] BUN/Creatinine Ratio 25 09/13/2023 2:[address] [facility] Sodium, Plasma 140 136 - 145 mmol/L 09/13/2023 2:[address] [facility] Potassium, Plasma 4.3 3.7 - 4.8 mmol/L 09/13/2023 2:[address] [facility] Chloride, Plasma 106 97 - 107 mmol/L 09/13/2023 2:[address] [facility] CO2, Plasma 24 22 - 29 mmol/L 09/13/2023 2:[address] [facility] Anion Gap 10 6 - 16 mmol/L 09/13/2023 2:[address] [facility] Total Calcium, Plasma 9.1 8.9 - 10.2 mg/dL 09/13/2023 2:[address] [facility] Total Protein 6.4 6.3 - 7.9 g/dL 09/13/2023 2:[address] [facility] Albumin, Plasma 3.8 3.5 - 5.2 g/dL 09/13/2023 2:[address] [facility] AST, Plasma 23 10 - 35 U/L 09/13/2023 2:[address] [facility] ALT, Plasma 16 10 - 35 U/L 09/13/2023 2:[address] [facility] Alkaline Phosphatase, Plasma 58 46 - 142 U/L 09/13/2023 2:[address] [facility] Total Bilirubin, Plasma 0.3 0.2 - 1.1 mg/dL 09/13/2023 2:[address] [facility] eGFRcr 82.1 mL/min/1.7 3m*2 09/13/2023 2:[address] [facility] Comment:Reported eGFRcr in m L/min/1.73m2 is based the CKD-EPI 2020 equation that does not use a race coefficient. Blood Blood sample taken from central line / Unknown (Port) Long-term Catheter / Unknown 09/13/2023 1:00 PM EST 09/13/2023 1:59 PM EST us Penny Dodson MD LAB BLOOD ORDERABLES Final Result [facility] [address] [place] [address] * (ABNORMAL) CBC and differential (09/13/2023 1:00 PM EST) WBC Count 3.92 3.70 - 10.30 10*3/uL LAB HEMATOLOGY METHOD 09/13/2023 2:12 PM EST [facility] RBC Count 3.71(L) 3.90 - 5.20 10*6/uL LAB HEMATOLOGY METHOD 09/13/2023 2:12 PM EST [facility] HGB 12.8 11.2 - 15.7 g/dL LAB HEMATOLOGY METHOD 09/13/2023 2:12 PM EST [facility] HCT 39.8 34.0 - 45.0 % LAB HEMATOLOGY METHOD 09/13/2023 2:12 PM EST [facility] Platelet Count 171 155 - 369 10*3/uL LAB HEMATOLOGY METHOD 09/13/2023 2:12 PM EST [facility] MCV 107(H) 79 - 98 fL LAB HEMATOLOGY METHOD 09/13/2023 2:12 PM EST [facility] MCH 34.5(H) 26.0 - 32.0 pg LAB HEMATOLOGY METHOD 09/13/2023 2:12 PM EST [facility] MCHC 32.2 30.7 - 35.5 g/dL LAB HEMATOLOGY METHOD 09/13/2023 2:12 PM EST [facility] RDW 14.7(H) 11.5 - 14.5 % LAB HEMATOLOGY METHOD 09/13/2023 2:12 PM EST [facility] MPV 9.7 8.8 - 12.5 fL LAB HEMATOLOGY METHOD 09/13/2023 2:12 PM EST [facility] nRBC 0.0 <=0.0 per 100 WBCs LAB HEMATOLOGY METHOD 09/13/2023 2:12 PM EST [facility] Differential Type Automated LAB HEMATOLOGY METHOD 09/13/2023 2:12 PM EST [facility] Neutrophils % 68.0 % LAB HEMATOLOGY METHOD 09/13/2023 2:12 PM EST [facility] Lymphocytes % 17.0 % LAB HEMATOLOGY METHOD 09/13/2023 2:12 PM EST [facility] Monocytes % 8.0 % LAB HEMATOLOGY METHOD 09/13/2023 2:12 PM EST [facility] Eosinophils % 6.0 % LAB HEMATOLOGY METHOD 09/13/2023 2:12 PM [facility] Basophils % 1.0 % LAB HEMATOLOGY METHOD 09/13/2023 2:12 PM EST [facility] Immature Granulocytes % 0.0 % LAB HEMATOLOGY METHOD 09/13/2023 2:12 PM EST [facility] Neutrophils Absolute 2.63 1.60 - 6.10 10*3/uL LAB HEMATOLOGY METHOD 09/13/2023 2:12 PM EST [facility] Lymphocytes Absolute 0.68(L) 1.20 - 3.90 10*3/uL LAB HEMATOLOGY METHOD 09/13/2023 2:12 PM EST [facility] Monocytes Absolute 0.32 0.30 - 0.90 10*3/uL LAB HEMATOLOGY METHOD 09/13/2023 2:12 PM EST [facility] Eosinophils Absolute 0.24 0.00 - 0.50 10*3/uL LAB HEMATOLOGY METHOD 09/13/2023 2:12 PM EST [facility] Basophils Absolute 0.04 0.00 - 0.10 10*3/uL LAB HEMATOLOGY METHOD 09/13/2023 2:12 PM EST [facility] Immature Granulocytes Absolute 0.01 0.00 - 0.06 10*3/uL LAB HEMATOLOGY METHOD 09/13/2023 2:12 PM EST [facility] Blood Blood sample taken from central line / Unknown (Port) Long-term Catheter / Unknown 09/13/2023 1:00 PM EST 09/13/2023 2:02 PM EST Narrative [facility] - 09/13/2023 2:12 PM EST Therapeutic decision making should be based on absolute values, rather than percentages. us Penny Dodson MD LAB BLOOD ORDERABLES Final Result [facility] [address] [place] [address] documented in this encounter Visit Diagnoses Diagnosis Carcinoma of fallopian tube, unspecified laterality (CMS/HCC)- Primary Encounter for antineoplastic chemotherapy Transaminitis Nonspecific elevation of levels of transaminase or lactic acid dehydrogenase (LDH) documented in this encounter Additional Health Concerns Assessment Noted Time A fall risk assessment has been complete d for the patient 09/13/2023 1:43 PM EST A Body Mass Index follow-up plan has been documented for the patient 08/19/2022 9:30 AM EST documented as of this encounter Care Teams Estate Administrator Relationship Specialty Start Date End Date Flaquita Dorsey DO [address] [place], [place] [id number] PCP - General 12/14/21 Aliyah Valencia MD [address] [place], [place] [id number] Referring Physician 03/10/21 Conrado Iqbal MD [address] [place] [address] Service Attending Cardiology 08/19/22 documented as of this encounter
--- OUTSIDE RECORDS SUMMARY | 2024-07-10 11:56 | XMS_ITS | Encounter Summary ---
Author Organization Healthcare Address [address] [place], [place] [id number] Care Team Providers Care Veterans' Coordinator Name Role Phone Aliyah Valencia MD Unavailable Flaquita Dorsey DO Primary Care Provider [phone] Conrado Iqbal MD Unavailable Reason for Visit * Reason Comments Chemotherapy Encounter Details Date Type Department Care Team ([facility] st Contact Info) Description 10/04/2023 1:00 PM EST Office Visit [facility]ne[facility] [address] [facility] [address] [place] [id number] Penelope Carmona MD [address] [facility] [address] [facility] [address] [place] [address] Carcinoma of fallopian tube, unspecified laterality (CMS/HCC) (Primary Dx); Encounter for antineoplastic chemotherapy Social History Tobacco Use Types Packs/Day Years [...] Sign Reading Time Taken Comments Blood Pressure 131/75 10/04/2023 12:40 PM EST Pulse 90 10/04/2023 12:40 PM EST Temperature 36.9 ??C (98.5 ??F) 10/04/2023 12:[address] Respiratory Rate 14 10/04/2023 12:40 PM EST Oxygen Saturation 95% 10/04/2023 12:40 PM EST Inhaled Oxygen Concentration - - Weight 76.4 kg (168 lb 6.9 oz) 10/04/2023 12:40 PM EST Height 161.3 cm (5' 3.5 ) 10/04/2023 12:40 PM ES T Body Mass Index 29.36 10/04/2023 12:40 PM EST documented in this encounter Miscellaneous Notes * Progress Notes - Penelope Carmona MD - 10/04/2023 1:00 PM EST Primary Care Provider: Flaquita [...] she underwent a left needle localized lumpectomy. [place] lymph node biopsy was not performed as [...] vagina). 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 Recurrence in March 2019. Treated with carbo initially followed by Olaparib. 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 She is currently off of therapy. She follows with Dr. Hutchins in [employer]/Onc. 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 Recurrence - First recurrence, kwethluk sensitive - CT 04/10/19 with 3 cmlesion at cuff - Ca125 12 (from 8) - MTB discussion: recommend trial if progression on kwethluk regimen or consider Parp for RAD 51 [...] ccy for choledocolithiasis 2019 (S[facility]) - Ca125: 72-9-3-7-7-9-8 - Started Parp inhibitor 09/2019 - Dose [...] concerning findings - Most recent Ca125 7.49 (12491) 06/30/2021 Recurrence - Third recurrence, kwethluk sensitive - CT 06/30/2021 shows vaginal cuff [...] disease seen 04/11/2022 Recurrence - Fourth recurrence, kwethluk resistant - CT 04/11/2022 with increase in [...] Chemotherapy - Avastin started 03/20/2023 - Ca125 7.38-7.51-6.5-6.71-6.26-6.58-6.94-6.72 - CT 06/16/2023: Stable to decreased size of vaginal cuff disease, no other new findings Interval updates to history: Oncologic treatment history as described above reviewed today as well as PMH/PSH/Meds/All/SH/FH, with updates made as appropriate. Patient is here today for cycle 10 of Dana. Doing very well. No appetite changes. No N/V. No severe headaches. Stable neuropathies. Trace vag inal bleeding daily. Occasional right sided mild abdominal pains he [...] years ago, no drugs, retired, lives in [place]. FamHx: Father-prostate, MGma-colon. ROS: 14 pt ROS performed with pertinent positives and negatives as noted in HPI. ROS otherwise negative Objective Physical Exam: Vital Signs for this encounter: BSA: 1.85 meters squared Visit Vitals BP 131/75 Pulse 90 Temp 36.9 ??C (98.5 ??F) (Temporal) Resp 14 Ht 1.613 m (5' 3.5 ) Wt 76.4 kg (168 lb 6.9 oz) LMP 11/17/1981 (Approximate) SpO2 95% BMI 29.36 kg/m?? OB Status Hysterectomy Smoking Status Former [...] Status: Asymptomatic PS= 0 Results: CBC WBC 3.92 Hgb 12.8 PLT 171 HCT 39.8 Lab Results Component Value Date NEUTROABS 2.63 09/13/2023 BASIC METABOLIC PANEL Na 140 Cl 106 BUN 19 Gluc 73 K 4.3 Co2 24 Creat 0.75 LIVER FUNCTION TESTING Tot Prot 6.4 AST 23 Tot bili 0.3 ALT 16 Alkphos 58 Ca 9.1 Mg 1.4 Phos No results [...] by radiation for additional recurrence - Now kwethluk resistant - Started Dana/oral Cytoxan, held Dana after cycle 4 due to Chest pain - CT after 4 cycles showed interval resolution of vaginal mass and no further disease. - At visit 08/2022: Patient had additional CP episode and heart cath subsequently performed. 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 However, also [...] to improved disease at cuff. - Cycle 10 of Dana today. Continue Cytoxan. Cyclic Ca125 monitoring with imaging q 3-4 cycles. - CT CAP ordered last visit but scheduled for November - will move up to be done before cycle 11 Problem 2: Encounter for chemotherapy Assessment and plan 2: - Proceed with cycle 10 of Bevacizumab 15 mg/kg today. Plan q [...] mass at cuff - Now minimal after 9 cycles of Dana. Monitor. 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 Summary of time spent in team based care today includes the following activities performed by myself: review of prior documentation in preparation for visit, review of test results, obtaining and reviewing medical history, appropriate focused physical exam, discussion of exam and/or test results, discussion of plan of care, lab orders, phlebotomy, CT appointment adjustment, chemo related decisionmaking, Documentation Penelope Dodson MD [facility] [address] [place] [address] [place] [address] Dept: [phone] Dept Loc: [phone] * Progress Notes - Aliyah Saravia, PharmD - 10/04/2023 1:00 PM EST Pharmacy Hematology/Oncology Treatment Plan [...] treatment. Ms John was seen in clinic today and deemed appropriate for treatment pending labs today. Dosing Wt: 84 kg Today's Wt: Wt Readings from Last 1 Encounters: 10/04/23 76 kg (167 lb 8.8 oz) Dosing Ht: 160 cm Dosing BSA: 1.88 m2 Recent Labs: Lab Results Component Value Date WBC 3.92 09/13/2023 HGB 12.8 09/13/2023 HCT 39.8 09/13/2023 MCV 107 (H) 09/13/2023 PLT 171 09/13/2023 Lab Results Component Value Date GLUCOSE 73 (L) 09/13/2023 CALCIUM 9.1 09/13/2023 NA 140 09/13/2023 K 4.3 09/13/2023 CO2 24 09/13/2023 CL 106 09/13/2023 BUN 19 09/13/2023 CREATININE 0.75 09/13/2023 Lab Results Component Value Date ALT 16 09/13/2023 AST 23 09/13/2023 ALKPHOS 58 09/13/2023 BILITOT 0.3 09/13/2023 Lab Results Component Value Date NEUTROABS 2.63 09/13/2023 Lab Results Component Value Date MG 1.4 (L) 01/09/2023 No results found for: TSH Lab Results Component Value Date URINEPRO Negative 08/23/2023 Vitals: Vitals: 10/04/23 1240 BP: 131/75 Pulse: 90 Resp: 14 Temp: 36.9 ??C (98.5 ??F) SpO2: 95% Other Relevant Monitoring: None [...] 08/23/23 Cycle 9: 09/13/23 Cycle 10: 10/04/23 Prior Chemotherapy History: hormone therapy for prior [...] AM EST Office Visit [facility] [address] [facility] [address] [place] [phone] Penelope Carmona MD [address] [facility] [address] [facility] [address] [place] [address] 08/05/2024 9:30 AM EST Appointment [facility] [address] [place] [address] 02/26/2025 9:30 AM EDT Appointment [facility] [place] [address] [address] [facility] [address] [place] [address] 02/26/2025 10:30 AM EDT Office Visit [facility] [address] [facility] [place] [address] Berenice Resendez, NUTRITION SERVICES AIDE [address] [facility] [address] [facility] [address] [place] [address] documented as of this encounter Procedures Procedure Name Priority Date/Time Associated Diagnosis Comments URINALYSIS MICROSCOPIC FOR UA REFLEX Routine 10/04/2023 1:20 PM EST Carcinoma of fallopian tube, unspecified laterality (CMS/HCC) URINALYSIS WITH REFLEX MICROSCOPIC Routine 10/04/2023 1:20 PM EST Carcinoma of fallopian tube, unspecified laterality (CMS/HCC) CBC WITH AUTO DIFFERENTIAL Routine 10/04/2023 1:04 PM EST Carcinoma of fallopian tube, unspecified laterality (CMS/HCC) CA 125 Routine 10/04/2023 1:04 PM EST Carcinoma of fallopian tube, unspecified laterality (CMS/HCC) COMPREHENSIVE METABOLIC PANEL, PLASMA Routine 10/04/2023 1:04 PM EST Carcinoma of fallopian tube, unspecified laterality (CMS/HCC) documented in this encounter Results * Urinalysis Microscopic Examination (10/04/2023 1:20 PM EST) Urine Urine specimen obtained by clean catch procedure / Unknown Non-blood Collection / Unknown 10/04/2023 1:20 PM EST 10/04/2023 2:02 PM EST Penelope Dodson MD LAB URINE ORDERABLES Final Result [facility] [address] [place] [address] * (ABNORMAL) Urinalysis with reflex microscopic (Culture NOT Included) (10/04/2023 1:20 PM EST) Color, Urine Yellow LAB URINALYSIS - AUTOMATED METHOD 10/04/2023 2:41 PM EST [facility] Clarity, Urine Clear LAB URINALYSIS - AUTOMATED METHOD 10/04/2023 2:41 PM EST [facility] Spec [place], Urine 1.010 <=1.005 to >=1.030 LAB URINALYSIS - AUTOMATED METHOD 10/04/2023 2:41 PM EST [facility] pH, Urine 6.0 4.5 to 8 LAB URINALYSIS - AUTOMATED METHOD 10/04/2023 2:41 PM EST [facility] Protein, Urine Negative Negative mg/dL LAB URINALYSIS - AUTOMATED METHOD 10/04/2023 2:41 PM EST [facility] Glucose, Urine Negative Negative mg/dL LAB URINALYSIS - AUTOMATED METHOD 10/04/2023 2:41 PM EST [facility] Ketones, Urine Negative Negative mg/dL LAB URINALYSIS - AUTOMATED METHOD 10/04/2023 2:41 PM EST [facility] Blood, Urine Trace(A) Negative LAB URINALYSIS - AUTOMATED METHOD 10/04/2023 2:41 PM EST [facility] Bilirubin, Urine Negative Negative LAB URINALYSIS - AUTOMATED METHOD 10/04/2023 2:41 PM EST [facility] Urobilinogen, Urine 0.2 0.2 to 1.0 mg/dL LAB URINALYSIS - AUTOMATED METHOD 10/04/2023 2:41 PM EST [facility] Leukocytes, Urine Small(A) Negative LAB URINALYSIS - AUTOMATED METHOD 10/04/2023 2:41 PM EST [facility] Nitrite, Urine Negative Negative LAB URINALYSIS - AUTOMATED METHOD 10/04/2023 2:41 PM EST [facility] RBC, Urine 1 0 to 3 /HPF LAB URINALYSIS - AUTOMATED METHOD 10/04/2023 2:41 PM EST [facility] Comment:This result was prev iously suppressed from the chart. WBC, Urine 0 - 5 0 to 5 /HPF LAB URINALYSIS - AUTOMATED METHOD 10/04/2023 2:41 PM EST [facility] Comment:This result was prev iously suppressed from the chart. Squamous Epithelial Cells 0 - 2 0 to 5 /HPF LAB URINALYSIS - AUTOMATED METHOD 10/04/2023 2:41 PM EST [facility] Comment:This result was prev iously suppressed from the chart. Hyaline Casts 0 - 2 0 to 5 /LPF LAB URINALYSIS - AUTOMATED METHOD 10/04/2023 2:41 PM EST [facility] Comment:This result was prev iously suppressed from the chart. Bacteria, Urine Negative Negative LAB URINALYSIS - AUTOMATED METHOD 10/04/2023 2:41 PM EST [facility] Comment:This result was prev iously suppressed from the chart. Urine Urine specimen obtained by clean catch procedure / Unknown Non-blood Collection / Unknown 10/04/2023 1:20 PM EST 10/04/2023 2:02 PM EST us Penelope Dodson MD LAB URINE ORDERABLES Final Result [facility] [address] [place] [address] * CA 125 (10/04/2023 1:04 PM EST) CA 125 6.86 <=38.00 U/mL 10/04/2023 2:38 PM EST [facility] Blood Blood sample taken from central line / Unknown (Port) Long-term Catheter / Unknown 10/04/2023 1:04 PM EST 10/04/2023 2:01 PM EST [facility] - 10/04/2023 2:38 PM EST Performed by Stephie electrochemiluminescent immunoassay. Results obtained with different test methods or kits cannot be used interchangeably. us Penelope Dodson MD LAB BLOOD ORDERABLES Final Result [facility] [address] [place] [id number] * (ABNORMAL) Comprehensive metabolic panel (10/04/2023 1:04 PM EST) Glucose, Plasma 117(H) 74 - 99 mg/dL 10/04/2023 2:30 PM EST [facility] BUN, Plasma 19 8 - 23 mg/dL 10/04/2023 2:30 PM EST [facility] Creatinine, Plasma 0.73 0.60 - 1.10 mg/dL 10/04/2023 2:30 PM EST [facility] BUN/Creatinine Ratio 26 10/04/2023 2:30 PM EST [facility] Sodium, Plasma 138 136 - 145 mmol/L 10/04/2023 2:30 PM EST [facility] Potassium, Plasma 3.8 3.7 - 4.8 mmol/L 10/04/2023 2:30 PM EST [facility] Chloride, Plasma 104 97 - 107 mmol/L 10/04/2023 2:30 PM EST [facility] CO2, Plasma 23 22 - 29 mmol/L 10/04/2023 2:30 PM EST [facility] Anion Gap 11 6 - 16 mmol/L 10/04/2023 2:30 PM EST [facility] Total Calcium, Plasma 9.4 8.9 - 10.2 mg/dL 10/04/2023 2:30 PM EST [facility] Total Protein 6.8 6.3 - 7.9 g/dL 10/04/2023 2:30 PM EST [facility] Albumin, Plasma 4.0 3.5 - 5.2 g/dL 10/04/2023 2:30 PM EST [facility] AST, Plasma 71(H) 10 - 35 U/L 10/04/2023 2:30 PM EST [facility] ALT, Plasma 40(H) 10 - 35 U/L 10/04/2023 2:30 PM EST [facility] Alkaline Phosphatase, Plasma 88 46 - 142 U/L 10/04/2023 2:30 PM EST [facility] Total Bilirubin, Plasma 0.5 0.2 - 1.1 mg/dL 10/04/2023 2:30 PM EST [facility] eGFRcr 84.3 mL/min/1.7 3m*2 10/04/2023 2:30 PM EST [facility] Comment:Reported eGFRcr in m L/min/1.73m2 is based the CKD-EPI 2020 equation that does not use a race coefficient. Blood Blood sample taken from central line / Unknown (Port) Long-term Catheter / Unknown 10/04/2023 1:04 PM EST 10/04/2023 2:00 PM EST us Penelope Dodson MD LAB BLOOD ORDERABLES Final Result [facility] [address] [place] [address] * (ABNORMAL) CBC and differential (10/04/2023 1:04 PM EST) WBC Count 3.45(L) 3.70 - 10.30 10*3/uL LAB HEMATOLOGY METHOD 10/04/2023 1:57 PM EST [facility] RBC Count 3.58(L) 3.90 - 5.20 10*6/uL LAB HEMATOLOGY METHOD 10/04/2023 1:57 PM EST [facility] HGB 12.4 11.2 - 15.7 g/dL LAB HEMATOLOGY METHOD 10/04/2023 1:57 PM EST [facility] HCT 38.0 34.0 - 45.0 % LAB HEMATOLOGY METHOD 10/04/2023 1:57 PM EST [facility] Platelet Count 173 155 - 369 10*3/uL LAB HEMATOLOGY METHOD 10/04/2023 1:57 PM EST [facility] MCV 106(H) 79 - 98 fL LAB HEMATOLOGY METHOD 10/04/2023 1:57 PM EST [facility] MCH 34.6(H) 26.0 - 32.0 pg LAB HEMATOLOGY METHOD 10/04/2023 1:57 PM EST [facility] MCHC 32.6 30.7 - 35.5 g/dL LAB HEMATOLOGY METHOD 10/04/2023 1:57 PM EST [facility] RDW 14.7(H) 11.5 - 14.5 % LAB HEMATOLOGY METHOD 10/04/2023 1:57 PM EST [facility] MPV 9.7 8.8 - 12.5 fL LAB HEMATOLOGY METHOD 10/04/2023 1:57 PM EST [facility] nRBC 0.0 <=0.0 per 100 WBCs LAB HEMATOLOGY METHOD 10/04/2023 1:57 PM EST [facility] Differential Type Automated LAB HEMATOLOGY METHOD 10/04/2023 1:57 PM EST [facility] Neutrophils % 68.0 % LAB HEMATOLOGY METHOD 10/04/2023 1:57 PM EST [facility] Lymphocytes % 16.0 % LAB HEMATOLOGY METHOD 10/04/2023 1:57 PM EST [facility] Monocytes % 6.0 % LAB HEMATOLOGY METHOD 10/04/2023 1:57 PM EST [facility] Eosinophils % 8.0 % LAB HEMATOLOGY METHOD 10/04/2023 1:57 PM EST [facility] Basophils % 1.0 % LAB HEMATOLOGY METHOD 10/04/2023 1:57 PM EST [facility] Immature Granulocytes % 1.0 % LAB HEMATOLOGY METHOD 10/04/2023 1:57 PM EST [facility] Neutrophils Absolute 2.40 1.60 - 6.10 10*3/uL LAB HEMATOLOGY METHOD 10/04/2023 1:57 PM EST [facility] Lymphocytes Absolute 0.55(L) 1.20 - 3.90 10*3/uL LAB HEMATOLOGY METHOD 10/04/2023 1:57 PM EST [facility] Monocytes Absolute 0.20(L) 0.30 - 0.90 10*3/uL LAB HEMATOLOGY METHOD 10/04/2023 1:57 PM EST [facility] Eosinophils Absolute 0.26 0.00 - 0.50 10*3/uL LAB HEMATOLOGY METHOD 10/04/2023 1:57 PM EST [facility] Basophils Absolute 0.02 0.00 - 0.10 10*3/uL LAB HEMATOLOGY METHOD 10/04/2023 1:57 PM EST [facility] Immature Granulocytes Absolute 0.02 0.00 - 0.06 10*3/uL LAB HEMATOLOGY METHOD 10/04/2023 1:57 PM EST [facility] Blood Blood sample taken from central line / Unknown (Port) Long-term Catheter / Unknown 10/04/2023 1:04 PM EST 10/04/2023 1:54 PM EST Narrative [facility] - 10/04/2023 1:57 PM EST Therapeutic decision making should be based on absolute values, rather than percentages. us Penelope Dodson MD LAB BLOOD ORDERABLES Final Result [facility] [address] [place] [address] documented in this encounter Visit Diagnoses Diagnosis Carcinoma of fallopian tube, unspecified laterality (CMS/HCC)- Primary Encounter for antineoplastic chemotherapy documented in this encounter Additional Health Concerns Assessment Noted Time A fall risk assessment has been complete d for the patient 10/04/2023 1:23 PM EST A Body Mass Index follow-up plan has been documented for the patient 08/19/2022 9:30 AM EST documented as of this encounter Care Teams Veterans' Coordinator Relationship Specialty Start Date End Date Flaquita Dorsey DO [address] [place] [address] PCP - General 12/14/21 Aliyah Valencia MD [address] [place] [address] Referring Physician 03/10/21 Conrado Iqbal MD [address] [place] [id number] Service Attending Cardiology 08/19/22 documented as of this encounter
--- OUTSIDE RECORDS SUMMARY | 2024-07-10 11:56 | XMS_ITS | Encounter Summary ---
Author Organization Healthcare Address [address] [place], [place] [address] Care Team Providers Care Pattern Ruler Name Role Phone Aliyah Valencia MD Unavailable [phone] Flaquita Dorsey DO Primary Care Provider [phone] Conrado Iqbal MD Unavailable Reason for Visit * Reason Comments Chemotherapy Encounter Details Date Type Department Care Team ([facility] st Contact Info) Description 08/23/2023 2:45 PM EST Office Visit [facility] Gynecology [address] [facility] [address] [place] [phone] Penelope Carmona MD [address] [facility] [address] Alatorre [facility] [address] [place] [address] Carcinoma of fallopian tube, unspecified [...] Sign Reading Time Taken Comments Blood Pressure 116/60 08/23/2023 2:33 PM EST Pulse 82 08/23/2023 2:33 PM EST Temperature 36.5 ??C (97.7 ??F) 08/23/2023 2:33 PM ES T Respiratory Rate 16 08/23/2023 2:33 PM EST Oxygen Saturation 98% 08/23/2023 2:33 PM EST Inhaled Oxygen Concentration - - Weight 75.9 kg (167 lb 5.3 oz) 08/23/2023 2:33 P M EST Height 160 cm (5' 3 ) 08/23/2023 2:33 PM EST Body Mass Index 29.64 08/23/2023 2:33 PM EST documented in this encounter Miscellaneous Notes * Progress Notes - Aliyah Saravia, PharmD - 08/23/2023 2:45 PM EST Pharmacy Hematology/Oncology Treatment Plan Note [...] from 05/28/2001: pT1c, pN0, cM0, G2, ER+, CT+, HER2: Unknown - Signed by Cara Greene MD on 06/19/2021 - Pathologic stage from 10/05/2016: Stage Unknown (rpT1c, pNX, cM0, G2, ER+, CT+, HER2-) - Signed by Cara Greene MD on 06/19/2021 Study Patient: No Treatment Protocol: Bevacizumab IV every 21 days + continuous PO cytoxan Treatment Plan reviewed for: [x] Follow-Up Clinical Review Cycle 8 Day 1 [x] Follow-Up Clinical Review for Continuous Oral Therapy Interval History: Patient's CT scan from 03/13 demonstrated slight progression while on cytoxan PO. Re-initiated bevacizumab IV maintenance therapy every 21 days in addition to continuous cytoxan therapy due to prior response and cardiac monitoring WNL. May scans demonstrate response to treatment. Ms John was seen in clinic today. UA collected and appropriate this month. CBC + BP WNL. Appropriate to proceed with treatment. Dosing Wt: 84 kg Today's Wt: Wt Readings from Last 1 Encounters: 08/23/23 75.9 kg (167 lb 5.3 oz) Dosing Ht: 160 cm Dosing BSA: 1.88 m2 Recent Labs: Labs drawn today and also available for 08/16. Lab Results Component Value Date WBC 3.88 08/02/2023 HGB 13.0 08/02/2023 HCT 39.9 08/02/2023 MCV 106 (H) 08/02/2023 PLT 202 08/02/2023 Lab Results Component Value Date GLUCOSE 96 08/02/2023 CALCIUM 9.7 08/02/2023 NA 137 08/02/2023 K 3.9 08/02/2023 CO2 21 (L) 08/02/2023 CL 102 08/02/2023 BUN 22 08/02/2023 CREATININE 0.85 08/02/2023 Lab Results Component Value Date ALT 22 08/02/2023 AST 27 08/02/2023 ALKPHOS 73 08/02/2023 BILITOT 0.4 08/02/2023 Lab Results Component Value Date NEUTROABS 2.55 08/02/2023 Lab Results Component Value Date MG 1.4 (L) 01/09/2023 No results found for: TSH Lab Results Component Value Date URINEPRO Negative 08/02/2023 Vitals: Vitals: 08/23/23 1433 BP: 116/60 Pulse: 82 Resp: 16 Temp: 36.5 ??C (97.7 ??F) SpO2: 98% Other Relevant Monitoring: None Treatment Plan: Cyclophosphamide [...] 07/10/23 Cycle 7: 08/02/23 Cycle 8: 08/23/23 Prior Chemotherapy History: hormone therapy for prior [...] prescribed to: [facility] Refills will be due: 08/2023 Patient will return to clinic in 3 weeks. Will follow-up at that time. Aliyah Saravia PharmD, BCPS * Progress Notes - Penelope Carmona MD - 08/23/2023 2:45 PM EST Primary Care Provider: Flaquita Dorsey [...] were negative for metastatic disease. ER and CT were strongly positive and HER-2 was negative. [...] ER positive in 90% of the cells, CT positive in 95% of cells andHER-2 negative by IHC at 0. On 10/04/2016 she underwent a left needle localized lumpectomy. [place] lymph node biopsy was not performed as [...] vagina). Initiated neoadjuvant chemo with carbo/Taxol per MARKETING FINANCIAL ANALYST followed by BSO/Omentectomy and adjuvant Carbotaxol. Recurrence in March 2019. Treated with carbo initially followed by Olaparib. 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 She is currently off of therapy. She follows with Dr. Hutchins in [place]. 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 Recurrence - First recurrence, nikolai sensitive - CT 04/10/19 with 3 cmlesion at cuff - Ca125 12 (from 8) - MTB discussion: recommend trial if progression on nikolai regimen or consider Parp for RAD 51 [...] ccy for choledocolithiasis 2019 ([facility]GB) - Ca125: 36-0-5-7-7-9-8 - Started Parp inhibitor 09/2019 - Dose [...] concerning findings - Most recent Ca125 7.49 (43978) 06/30/2021 Recurrence - Third recurrence, nikolai sensitive - CT 06/30/2021 shows vaginal cuff [...] disease seen 04/11/2022 Recurrence - Fourth recurrence, nikolai resistant - CT 04/11/2022 with increase in [...] Chemotherapy - Avastin started 03/20/2023 - Ca125 7.38-7.51-6.5-6.71-6.26-6.58 - CT 06/16/2023: Stable to decreased size of vaginal cuff disease, no other new findings Interval updates to history: Oncologic treatment history as described above reviewed today as well as PMH/PSH/Meds/All/SH/FH, with updates made as appropriate. Patient is here today for cycle 8 of Dana. Doing very well. Had one episode of diarrhea today on way here (has otherwise not had these episodes since last cycle). Did briefly feel light headed with the cramping but now this is resolved. Hadtacos for dinner last night and felt this may be related. No appetite changes. No N/V. No severe headaches.. Feet and fingertips with stable neuropathies. Needs gabapentin refill. Only light VB. PMH: h/o breast cancer x2, ?cervical [...] years ago, no drugs, retired, lives in [place]. FamHx: Father-prostate, MGma-colon. ROS: 14 pt ROS performed with pertinent positives and negatives as noted in HPI. ROS otherwise negative Objective Physical Exam: Vital Signs for this encounter: BSA: 1.84 meters squared Visit Vitals BP 116/60 (BP Location: Right arm, Patient Position: Sitting, BP Cuff Size: Adult long) Pulse 82 Temp 36.5 ??C (97.7 ??F) (Oral) Resp 16 Ht 1.6 m (5' 3 ) Wt 75.9 kg (167 lb 5.3 oz) LMP 11/17/1981 (Approximate) SpO2 98% BMI 29.64 kg/m?? OB Status Hysterectomy Smoking [...] Status: Asymptomatic PS= 0 Results: CBC WBC 3.88 Hgb 13.0 PLT 202 HCT 39.9 Lab Results Component Value Date NEUTROABS 2.55 08/02/2023 BASIC METABOLIC PANEL Na 137 Cl 102 BUN 22 Gluc 96 K 3.9 Co2 21 Creat 0.85 LIVER FUNCTION TESTING Tot Prot 6.9 AST 27 Tot bili 0.4 ALT 22 Alkphos 73 Ca 9.7 Mg 1.4 Phos No results found for [...] by radiation for additional recurrence - Now nikolai resistant - Started Dana/oral Cytoxan, held Dana after cycle 4 due to Chest pain - CT after 4 cycles showed interval resolution of vaginal mass and no further disease. - At visit 08/2022: Patient had additional CP episode and heart cath subsequently performed. 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 However, also [...] to improved disease at cuff. - Cycle 8 of Daan today. Continue Cytoxan. Cyclic Ca125 monitoring with imaging q 3-[address] after this cycle - will request. Problem 2: Encounter for chemotherapy Assessment and plan 2: - Proceed with cycle 8 of Bevacizumab 15 mg/kg today. Plan q [...] mass at cuff - Now minimal after 7 cycles of Dana. Monitor. Problem 4: History of left breast cancer x 2 Assessment and plan 4: - s/p anastrazole. No current signs of disease. Follows up with breast clinic (recent visit JARED) Problem 5: Neuropathy Assessment and plan 5: - Treatment related. - Will not use Taxol again. - Gabapentin 400 mg TID, continue, stable symptoms. Refilled today and Nghia reviewed. Problem 6: h/o syncope episodes and carotid stenosis, now with chest tightness over 2021, in July 2022, 10/28/2022, 12/15/2022, 04/2023 Assessment and plan 6: - Has been followed in past with cards at - Seen by cardiology at [facility] and acute workup negative but diagnostic cath [...] early April - ED workup negative for TX - No further episodes since last cycle - Continue to monitor closely Problem 7: Intermittent diarrhea Assessment and plan 7: - Unlikely relation to Cytoxan given timing/drug profile - Offered colonoscopy/GI referral but declines for now - Minimal symptoms between cycles 6 and now until today with episode on way to [place] for chemo.Now resolved and feeling better. - Monitor Problem 8: History of cervical cancer Assessment and plan 8: - Distant history, salvage determiner survivor. Summary of time spent in team based care today includes the following activities performed by myself: review of prior documentation in preparation for visit, review of weekly labs and any other test results, obtaining and reviewing medical history, appropriate focused physical exam, discussion of exam and/or test results, discussion of plan of care, lab orders, phlebotomy, prescription submissionand nghia review, CT order/request, chemo related decision making MD ADRIANA Arana [facility] GYNECOLOGY [address] [facility] [address] AL[address]RE [facility] [address] Dept: [phone] Dept Loc: [phone] documented in this encounter Plan of Treatment Upcoming Encounters Date Type Department Care Team (Late st Contact Info) Description 08/05/2024 8:00 AM EST Office Visit [facility] Gynecology [address] [facility] [address] [place] [phone] Penelope Carmona MD [address] [facility] [address] Al[address]re [facility] [address] [place] [address] 08/05/2024 9:30 AM EST Appointment [facility] Infusion Clinic [address] [place] [address] 02/26/2025 9:30 AM EDT Appointment [facility] Breast Care Center [facility] [place] [address] [address] Al[address] [facility] [address] [place] [address] 02/26/2025 10:30 AM EDT Office Visit [facility] Breast Care Center [address] [facility], 2nd [place] [address] Berenice Resendez, MOTEL MANAGER [address] [facility] [address] Alatorre [facility] [address] [place] [address] documented as of this encounter Procedures Procedure Name Priority Date/Time Associated Diagnosis Comments URINALYSIS MICROSCOPIC FOR UA REFLEX Routine 08/23/2023 3:12 PM EST Carcinoma of fallopian tube, unspecified laterality (CMS/HCC) URINALYSIS WITH REFLEX MICROSCOPIC Routine 08/23/2023 3:12 PM EST Carcinoma of fallopian tube, unspecified laterality (CMS/HCC) CBC WITH AUTO DIFFERENTIAL Routine 08/23/2023 3:12 PM EST Carcinoma of fallopian tube, unspecified laterality (CMS/HCC) CA 125 Routine 08/23/2023 3:12 PM EST Carcinoma of fallopian tube, unspecified laterality (CMS/HCC) COMPREHENSIVE METABOLIC PANEL, PLASMA Routine 08/23/2023 3:12 PM EST Carcinoma of fallopian tube, unspecified laterality (CMS/HCC) documented in this encounter Results * Urinalysis Microscopic Examination (08/23/2023 3:12 PM EST) Urine Urine specimen obtained by clean catch procedure / Unknown Non-blood Collection / Unknown 08/23/2023 3:12 PM EST 08/23/2023 3:57 PM EST Penelope Dodson MD LAB URINE ORDERABLES Final Result [facility] [address] [place] [address] * (ABNORMAL) Urinalysis with reflex microscopic (08/23/2023 3:12 PM EST) Color, Urine Yellow LAB URINALYSIS - AUTOMATED METHOD 08/23/2023 4:07 PM EST [facility] Clarity, Urine Clear LAB URINALYSIS - AUTOMATED METHOD 08/23/2023 4:07 PM EST [facility] Spec [place], Urine 1.012 <=1.005 to >=1.030 LAB URINALYSIS - AUTOMATED METHOD 08/23/2023 4:07 PM EST [facility] pH, Urine 5.5 4.5 to 8 LAB URINALYSIS - AUTOMATED METHOD 08/23/2023 4:07 PM EST [facility] Protein, Urine Negative Negative mg/dL LAB URINALYSIS - AUTOMATED METHOD 08/23/2023 4:07 PM EST [facility] Glucose, Urine Negative Negative mg/dL LAB URINALYSIS - AUTOMATED METHOD 08/23/2023 4:07 PM EST [facility] Ketones, Urine Negative Negative mg/dL LAB URINALYSIS - AUTOMATED METHOD 08/23/2023 4:07 PM EST [facility] Blood, Urine Trace(A) Negative LAB URINALYSIS - AUTOMATED METHOD 08/23/2023 4:07 PM EST [facility] Bilirubin, Urine Negative Negative LAB URINALYSIS - AUTOMATED METHOD 08/23/2023 4:07 PM EST [facility] Urobilinogen, Urine 1.0 0.2 to 1.0 mg/dL LAB URINALYSIS - AUTOMATED METHOD 08/23/2023 4:07 PM EST [facility] Leukocytes, Urine Moderate(A) Negative LAB URINALYSIS - AUTOMATED METHOD 08/23/2023 4:07 PM EST [facility] Nitrite, Urine Negative Negative LAB URINALYSIS - AUTOMATED METHOD 08/23/2023 4:07 PM EST [facility] RBC, Urine 2 0 to 3 /HPF LAB URINALYSIS - AUTOMATED METHOD 08/23/2023 4:07 PM EST [facility] WBC, Urine 11 - 20(A) 0 to 5 /HPF LAB URINALYSIS - AUTOMATED METHOD 08/23/2023 4:07 PM EST [facility] Squamous Epithelial Cells 0 - 2 0 to 5 /HPF LAB URINALYSIS - AUTOMATED METHOD 08/23/2023 4:07 PM EST [facility] Hyaline Casts 3 - 5 0 to 5 /LPF LAB URINALYSIS - AUTOMATED METHOD 08/23/2023 4:07 PM EST [facility] Bacteria, Urine Negative Negative LAB URINALYSIS - AUTOMATED METHOD 08/23/2023 4:07 PM EST [facility] Urine Urine specimen obtained by clean catch procedure / Unknown Non-blood Collection / Unknown 08/23/2023 3:12 PM EST 08/23/2023 3:57 PM EST us Penelope Dodson MD LAB URINE ORDERABLES Final Result [facility] [address] [place] [address] * CA 125 (08/23/2023 3:12 PM EST) CA 125 6.94 <=38.00 U/mL 08/23/2023 4:26 PM EST [facility] Blood Blood sample taken from central line / Unknown (Port) Long-term Catheter / Unknown 08/23/2023 3:12 PM EST 08/23/2023 3:48 PM EST Narrative [facility] - 08/23/2023 4:26 PM EST Performed by Stephie electrochemiluminescent immunoassay. Results obtained with different test methods or kits cannot be used interchangeably. us Penelope Dodson MD LAB BLOOD ORDERABLES Final Result [facility] [address] [place] [id number] * (ABNORMAL) Comprehensive metabolic panel (08/23/2023 3:12 PM EST) Glucose, Plasma 105(H) 74 - 99 mg/dL 08/23/2023 4:20 PM EST [facility] BUN, Plasma 26(H) 8 - 23 mg/dL 08/23/2023 4:20 PM EST [facility] Creatinine, Plasma 0.77 0.60 - 1.10 mg/dL 08/23/2023 4:20 PM EST [facility] BUN/Creatinine Ratio 34 08/23/2023 4:20 PM EST [facility] Sodium, Plasma 142 136 - 145 mmol/L 08/23/2023 4:20 PM EST [facility] Potassium, Plasma 4.2 3.7 - 4.8 mmol/L 08/23/2023 4:20 PM EST [facility] Chloride, Plasma 106 97 - 107 mmol/L 08/23/2023 4:20 PM EST [facility] CO2, Plasma 23 22 - 29 mmol/L 08/23/2023 4:20 PM EST [facility] Anion Gap 13 6 - 16 mmol/L 08/23/2023 4:20 PM EST [facility] Total Calcium, Plasma 9.1 8.9 - 10.2 mg/dL 08/23/2023 4:20 PM EST [facility] Total Protein 6.9 6.3 - 7.9 g/dL 08/23/2023 4:20 PM EST [facility] Albumin, Plasma 3.9 3.5 - 5.2 g/dL 08/23/2023 4:20 PM EST [facility] AST, Plasma 100(H) 10 - 35 U/L 08/23/2023 4:20 PM EST [facility] ALT, Plasma 50(H) 10 - 35 U/L 08/23/2023 4:20 PM EST [facility] Alkaline Phosphatase, Plasma 114 46 - 142 U/L 08/23/2023 4:20 PM EST [facility] Total Bilirubin, Plasma 0.7 0.2 - 1.1 mg/dL 08/23/2023 4:20 PM EST [facility] eGFRcr 79.6 mL/min/1.7 3m*2 08/23/2023 4:20 PM EST [facility] Comment:Reported eGFRcr in m L/min/1.73m2 is based the CKD-EPI 2020 equation that does not use a race coefficient. Blood Blood sample taken from central line / Unknown (Port) Long-term Catheter / Unknown 08/23/2023 3:12 PM EST 08/23/2023 3:49 PM EST us Penelope Dodson MD LAB BLOOD ORDERABLES Final Result Performing Organization Address City/State/[facility] Co de Phone Number [facility] [address] [place] [address] * (ABNORMAL) CBC and differential (08/23/2023 3:12 PM EST) WBC Count 6.54 3.70 - 10.30 10*3/uL LAB HEMATOLOGY METHOD 08/23/2023 3:51 PM EST [facility] RBC Count 3.79(L) 3.90 - 5.20 10*6/uL LAB HEMATOLOGY METHOD 08/23/2023 3:51 PM EST [facility] HGB 13.0 11.2 - 15.7 g/dL LAB HEMATOLOGY METHOD 08/23/2023 3:51 PM EST [facility] HCT 39.5 34.0 - 45.0 % LAB HEMATOLOGY METHOD 08/23/2023 3:51 PM EST [facility] Platelet Count 184 155 - 369 10*3/uL LAB HEMATOLOGY METHOD 08/23/2023 3:51 PM EST [facility] MCV 104(H) 79 - 98 fL LAB HEMATOLOGY METHOD 08/23/2023 3:51 PM EST [facility] MCH 34.3(H) 26.0 - 32.0 pg LAB HEMATOLOGY METHOD 08/23/2023 3:51 PM EST [facility] MCHC 32.9 30.7 - 35.5 g/dL LAB HEMATOLOGY METHOD 08/23/2023 3:51 PM [facility] RDW 14.7(H) 11.5 - 14.5 % LAB HEMATOLOGY METHOD 08/23/2023 3:51 PM EST [facility] MPV 9.5 8.8 - 12.5 fL LAB HEMATOLOGY METHOD 08/23/2023 3:51 PM EST [facility] nRBC 0.0 <=0.0 per 100 WBCs LAB HEMATOLOGY METHOD 08/23/2023 3:51 PM [facility] Differential Type Automated LAB HEMATOLOGY METHOD 08/23/2023 3:51 PM [facility] Neutrophils % 85.0 % LAB HEMATOLOGY METHOD 08/23/2023 3:51 PM [facility] Lymphocytes % 6.0 % LAB HEMATOLOGY METHOD 08/23/2023 3:51 PM [facility] Monocytes % 6.0 % LAB HEMATOLOGY METHOD 08/23/2023 3:51 PM [facility] Eosinophils % 2.0 % LAB HEMATOLOGY METHOD 08/23/2023 3:51 PM [facility] Basophils % 1.0 % LAB HEMATOLOGY METHOD 08/23/2023 3:51 PM [facility] Immature Granulocytes % 0.0 % LAB HEMATOLOGY METHOD 08/23/2023 3:51 PM [facility] Neutrophils Absolute 5.60 1.60 - 6.10 10*3/uL LAB HEMATOLOGY METHOD 08/23/2023 3:51 PM [facility] Lymphocytes Absolute 0.37(L) 1.20 - 3.90 10*3/uL LAB HEMATOLOGY METHOD 08/23/2023 3:51 PM [facility] Monocytes Absolute 0.37 0.30 - 0.90 10*3/uL LAB HEMATOLOGY METHOD 08/23/2023 3:51 PM [facility] Eosinophils Absolute 0.15 0.00 - 0.50 10*3/uL LAB HEMATOLOGY METHOD 08/23/2023 3:51 PM [facility] Basophils Absolute 0.03 0.00 - 0.10 10*3/uL LAB HEMATOLOGY METHOD 08/23/2023 3:51 PM [facility] Immature Granulocytes Absolute 0.02 0.00 - 0.06 10*3/uL LAB HEMATOLOGY METHOD 08/23/2023 3:51 PM [facility] Blood Blood sample taken from central line / Unknown (Port) Long-term Catheter / Unknown 08/23/2023 3:12 PM EST 08/23/2023 3:49 PM EST Narrative [facility] - 08/23/2023 3:51 PM EST Therapeutic decision making should be based on absolute values, rather than percentages. us Penelope Dodson MD LAB BLOOD ORDERABLES Final Result [facility] [address] [place] [address] documented in this encounter Visit Diagnoses Diagnosis [...] documented as of this encounter Care Teams Pattern Ruler Relationship Specialty Start Date End Date Flaquita Dorsey DO [address] [place] [address] PCP - General 12/14/21 Aliyah Valencia MD [address] [place] [place] [address] Referring Physician 03/10/21 Conrado Iqbal MD [address] [place] [address] Service Attending Cardiology 08/19/22 documented as of this encounter
--- OUTSIDE RECORDS SUMMARY | 2024-07-10 11:56 | XMS_ITS | Encounter Summary ---
Author Organization Healthcare Address [address] [place], [place] [id number] Care Team Providers Care [employer] Pe Teacher Name Role Phone Aliyah Valencia MD Unavailable [phone] Flaquita Dorsey DO Primary Care Provider +- [phone] Conrado Iqbal MD Unavailable Encounter Details Date Type Department Care Team (Latest Contact Info) Description 08/23/2023 Travel Social History Tobacco Use Types Packs/Day [...] AM EST Office Visit [facility] Gynecology [address] [place] [address] [address] [place] [address] Penelope Carmona MD 800 [facility] [address] [place] [address] 08/05/2024 9:30 AM EST Appointment [facility] Infusion Clinic [address] [place] [address] 02/26/2025 9:30 AM EDT Appointment [facility] Comprehensive [facility] Radha Lai [facility] [address] [place] [address] 02/26/2025 10:30 AM EDT Office Visit [facility] [address] [facility], [address]nd [place] [address] Berenice Resendez, TANK PUMPER [address] [facility] Mayra Lai [facility] [address] [place] [address] documented as of this encounter Visit Diagnoses Not on filedocumented in this encounter Additional Health Concerns Assessment Noted Time A fall risk assessment has been complete d for the patient 08/23/2023 3:22 PM EST A Body Mass Index follow-up plan has been documented for the patient 08/19/2022 9:30 AM EST documented as of this encounter Care Teams [employer] Pe Teacher Relationship Specialty Start Date End Date Flaquita Dorsey DO [address] [place] [address] PCP - General 12/14/21 Aliyah Valencia MD [address] [place] [address] Referring Physician 03/10/21 Conrado Iqbal MD [address] [place] [address] Service Attending Cardiology 08/19/22 documented as of this encounter
--- OUTSIDE RECORDS SUMMARY | 2024-07-10 11:56 | XMS_ITS | Encounter Summary ---
Author Organization Healthcare Address [address] [place], [place] [address] Care Team Providers Care Executive Director Contract Shop Name Role Phone Aliyah Valencia MD Unavailable [phone] Flaquita Dorsey DO Primary Care Provider [phone]- [phone] Conrado Iqbal MD Unavailable Encounter Details Date Type Department Care Team (Latest Contact Info) Description 09/13/2023 Travel Social History Tobacco Use Types Packs/Day [...] AM EST Office Visit [facility] [address] [address] [address] [place] [address] Penelope Carmona MD 800 [facility] [address] [place] [address] 08/05/2024 9:30 AM EST Appointment [facility] 1 [address] [place] [address] 02/26/2025 9:30 AM EDT Appointment [facility] Radha Lai [facility] [address] [place] [address] 02/26/2025 10:30 AM EDT Office Visit [facility] [address] [facility], 2nd [place] [address] Berenice Resendez, HYDRO PLANT TECHNICIAN 800 [facility] Mayra Lai [facility] [address] [place] [address] documented as of this encounter Visit Diagnoses Not on filedocumented in this encounter Additional Health Concerns Assessment Noted Time A fall risk assessment has been complete d for the patient 09/13/2023 1:43 PM EST A Body Mass Index follow-up plan has been documented for the patient 08/19/2022 9:30 AM EST documented as of this encounter Care Teams Executive Director Contract Shop Relationship Specialty Start Date End Date Flaquita Dorsey DO [address] [place] [address] PCP - General 12/14/21 Aliyah Valencia MD [address] [place] [place] [address] Referring Physician 03/10/21 Conrado Iqbal MD [address] [place] [address] Service Attending Cardiology 08/19/22 documented as of this encounter
--- OUTSIDE RECORDS SUMMARY | 2024-07-10 11:56 | XMS_ITS | Encounter Summary ---
Author Organization Healthcare Address [address] [place], [place] [address] Care Team Providers Care Manager Mountain Name Role Phone Aliyah Valencia MD Unavailable [phone] Flaquita Dorsey DO Primary Care Provider [phone] Conrado Iqbal MD Unavailable Reason for Visit * Reason Comments Chemotherapy Encounter Details Date Type Department Care Team ([facility] st Contact Info) Description 07/10/2023 9:00 AM EST Office Visit [facility] 800 [facility] [address] [place] [address] Penelope Carmona MD 800 [facility] Tam[address] Lai [facility] [address] [place] [address] Carcinoma of fallopian tube, unspecified laterality (CMS/HCC) (Primary Dx); Encounter for antineoplastic chemotherapy; Vaginal bleeding; Obesity (BMI 30-39.9); Neuropathy Social History Tobacco Use Types Packs/Day Years Used Date Smoking Tobacco: Former Cigarettes 0.5 22 1 976 - 1998 Smokeless Tobacco: Former Tobacco Cessation:Counseling Given: Not Answered Alcohol Use Standard Drinks/Week Comments Not Currently 0 (1 standard drink = 0.6 oz pur e alcohol) PHQ-2 Answer Date Recorded Patient Health Questionnaire-2 Score 0 07/10/2023 PHQ-2A Answer Date Recorded Patient Health Questionnaire-2 Score 0 07/10/2023 Comments No Sex and Gender Information Value Date Recorded Sex Assigned at Not on file Legal Sex Female 8:51 PM EDT Gender Identity Not on file Sexual Orientation Not on file documented as of this encounter Last Filed Vital Signs Vital Sign Reading Time Taken Comments Blood Pressure 137/76 07/10/2023 9:13 AM EST Pulse 83 07/10/2023 9:13 AM EST Temperature 36.7 ??C (98 ??F) 07/10/2023 9:13 AM EST Respiratory Rate 16 07/10/2023 9:13 AM EST Oxygen Saturation 94% 07/10/2023 9:13 AM EST Inhaled Oxygen Concentration - - Weight 77.7 kg (171 lb 4.8 oz) 07/10/2023 9:13 A M EST Height 160 cm (5' 3 ) 07/10/2023 9:13 AM EST Body Mass Index 30.34 07/10/2023 9:13 AM EST documented in this encounter Miscellaneous Notes * Addendum Note - Meghan Camp RN - 07/10/2023 9:00 AM ESTAddended by: MEGHAN CAMP on: 07/10/2023 10:39 AM Modules accepted: Orders * Progress Notes - Penelope Carmona MD - 07/10/2023 9:00 AM EST Primary Care Provider: Flaquita [...] were negative for metastatic disease. ER and CA were strongly positive and HER-2 was negative. [...] ER positive in 90% of the cells, CA positive in 95% of cells andHER-2 negative by IHC at 0. On 10/04/2016 she underwent a left needle localized lumpectomy. Lenore lymph node biopsy was not performed as [...] vagina). Initiated neoadjuvant chemo with carbo/Taxol per GEAR SHAVER SET UP OPERATOR followed by BSO/Omentectomy and adjuvant Carbotaxol. Recurrence in March 2019. Treated with carbo initially followed by Olaparib. 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 She is currently off of therapy. She follows with Dr. Hutchins in Business Operations Specialist/Onc. Malignant neoplasm of left breast in female, estrogen receptor positive (CMS/HCC) 05/28/2001 Cancer Staged Staging form: Breast, AJCC 8th Edition, Pathologic stage from 05/28/2001: pT1c, pN0, cM0, G2, ER+, CA+, HER2: Unknown - Signed by Cara Greene MD on 06/19/2021 10/05/2016 Cancer Staged Staging form: Breast, AJCC 8th Edition, Pathologic stage from 10/05/2016: Stage Unknown (rpT1c, pNX, cM0, G2, ER+, CA+, HER2-) - Signed by Cara Greeen MD on 06/19/2021 12/09/2020 Initial Diagnosis Malignant [...] additional cycles of Carbo/Taxol 09/12/2018 - Ca125 58-26-07-9-8 - Post treatment CT 10/01/2018 [facility] 09/2018 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 Recurrence - First recurrence, gila river sensitive - CT 04/10/19 with 3 cmlesion at cuff - Ca125 12 (from 8) - MTB discussion: recommend trial if progression on gila river regimen or consider Parp for RAD 51 [...] ccy for choledocolithiasis 2019 (SGB) - Ca125: 83-5-2-7-7-9-8 - Started Parp inhibitor 09/2019 - Dose [...] concerning findings - Most recent Ca125 7.49 (16878) 06/30/2021 Recurrence - Third recurrence, gila river sensitive - CT 06/30/2021 shows vaginal cuff [...] disease seen 04/11/2022 Recurrence - Fourth recurrence, gila river resistant - CT 04/11/2022 with increase in [...] Chemotherapy - Avastin started 03/20/2023 - Ca125 7.38-7.51-6.5-6.71 - CT 06/16/2023: Stable to decreased size of vaginal cuff disease, no other new findings Interval updates to history: Oncologic treatment history as described above reviewed today as well as PMH/PSH/Meds/All/SH/FH, with updates made as appropriate. Patient is here today for cycle 6 of Dana. Doing very well. Since last cycle no chest pain episodes. No diarrhea episodes in past few weeks.Very little residual vaginal bleeding. No appetite changes. No N/V. No severe headaches. PMH: h/o breast cancer x2, ?cervical cancer, [...] years ago, no drugs, retired, lives in [place]. FamHx: Father-prostate, MGma-colon. ROS: 14 pt ROS performed with pertinent positives and negatives as noted in HPI. ROS otherwise negative Objective Physical Exam: Vital Signs for this encounter: BSA: 1.86 meters squared Visit Vitals BP 137/76 (BP Location: Right arm, Patient Position: Sitting, BP Cuff Size: Adult long) Pulse 83 Temp 36.7 ??C (98 ??F) (Oral) Resp 16 Ht 1.6 m (5' 3 ) Wt 77.7 kg (171 lb 4.8 oz) LMP 11/17/1981 (Approximate) SpO2 94% BMI 30.34 kg/m?? OB Status Hysterectomy Smoking Status Former BSA 1.86 m?? Physical Exam Vitals and nursing note reviewed. Constitutional: General: She is not in acute distress. Appearance: Normal appearance. She is well-developed. She is obese. She is not ill-appearing or diaphoretic. HENT: Head: Normocephalic and atraumatic. Mouth/Throat: Mouth: Mucous membranes are moist. Eyes: General: No scleral icterus. Conjunctiva/sclera: Conjunctivae normal. Cardiovascular: Rate and Rhythm: Normal rate. Pulmonary: Effort: Pulmonary effort is normal. No respiratory distress. Abdominal: General: There is no distension. Palpations: Abdomen is soft. Tenderness: There is no abdominal tenderness. Musculoskeletal: Comments: Mild ankle swelling Skin: General: Skin is warm and dry. Coloration: Skin is not jaundiced. Findings: No bruising. Neurological: Mental Status: She is alert and oriented to person, place, and time. Mental status is at baseline. Psychiatric: Mood and Affect: Mood normal. Behavior: Behavior normal. Thought Content: Thought content normal. Judgment: Judgment normal. Performance Status: Asymptomatic PS= 0 Results: CBC WBC 5.28 Hgb 13.5 PLT 217 HCT 40.3 Lab Results Component Value Date NEUTROABS 4.10 05/08/2023 BASIC METABOLIC PANEL Na 136 Cl 100 BUN 25 Gluc 104 K 3.8 Co2 23 Creat 0.94 LIVER FUNCTION TESTING Tot Prot 7.2 AST 23 Tot bili 0.4 ALT 23 Alkphos 69 Ca 9.6 Mg 1.4 Phos No results found for [...] by radiation for additional recurrence - Now gila river resistant - Started Dana/oral Cytoxan, held Dana after cycle 4 due to Chest pain - CT after 4 cycles showed interval resolution of vaginal mass and no further disease. - At visit 08/2022: Patient had additional CP episode and heart cath subsequently performed. No severe disease noted and bakery machine mechanic reports ok to continue Dana. However, also [...] back and continue oral Cytoxan. - CT 06/16/2023 with stable to improved disease at cuff. - Cycle 6 of Dana today. Continue Cytoxan. Cyclic Ca125 monitoring with imaging q 3-4 cycles. Problem 2: Encounter for chemotherapy Assessment and plan 2: - Proceed with cycle 6 of Bevacizumab 15 mg/kg today. Plan q [...] mass at cuff - Now minimal after 5 cycles of Dana. Monitor. Problem 4: History of left breast cancer x 2 Assessment and plan 4: - s/p anastrazole. No current signs of disease. Follows up with breast clinic (recent visit [facility]) Problem 5: Neuropathy Assessment and plan 5: - Treatment related. - Will not use Taxol again. - Gabapentin 400 mg TID, continue, stable symptoms Problem 6: h/o syncope episodes and carotid stenosis, now with chest tightness over 2021, in July 2022, 10/28/2022, 12/15/2022, 04/2023 Assessment and plan 6: - Has been followed in past with cards at - Seen by cardiology at [facility] and acute workup negative but diagnostic cath [...] early April - ED workup negative for RI - Continue to monitor closely Problem 7: Obesity Assessment and plan 7: - Body mass index is 30.34 kg/m??. - Affects all aspects of care Problem 8: History of cervical cancer Assessment and plan 8: - Distant history, penitentiary survivor. Problem 9: Intermittent diarrhea Assessment and plan 9: - Unlikely relation to Cytoxan given timing/drug profile - Offered colonoscopy/GI referral but declines for now - Minimal symptoms between cycles 5 and now - Monitor Summary of time spent in team based care today includes the following activities performed by myself: review of prior documentation in preparation for visit, review of labs and any other test results, obtaining and reviewing medical history, appropriate focused physical exam, discussion of exam and/or test results, discussion of plan of care, lab orders, phlebotomy, and documentation Penelope Dodson MD [facility] 800 [facility] [address] [facility] [address] Dept: [phone] Dept Loc: [phone] * Progress Notes - Kait Stewart, PharmD - 07/10/2023 9:00 AM EST Pharmacy Hematology/Oncology Treatment Plan [...] from 05/28/2001: pT1c, pN0, cM0, G2, ER+, CA+, HER2: Unknown - Signed by Cara Greene MD on 06/19/2021 - Pathologic stage from 10/05/2016: Stage Unknown (rpT1c, pNX, cM0, G2, ER+, CA+, HER2-) - Signed by Cara Greene MD on 06/19/2021 Study Patient: No Treatment Protocol: Bevacizumab IV every 21 days + continuous PO cytoxan Treatment Plan reviewed for: [x] Follow-Up Clinical Review Cycle 6 Day 1 [x] Follow-Up Clinical Review for Continuous Oral Therapy Interval History: Patient's CT scan from 03/13 demonstrated slight progression while on cytoxan PO. Re-initiated bevacizumab IV maintenance therapy every 21 days in addition to continuous cytoxan therapy due to prior response and cardiac monitoring WNL. May scans demonstrate response to treatment. 07/10/23: Ms. John is tolerating therapy very well. Dosing Wt: 84 kg Today's Wt: Wt Readings from Last 1 Encounters: 07/10/23 77.8 kg (171 lb 8.3 oz) Dosing Ht: 160 cm Dosing BSA: 1.88 m2 Recent Labs: OSH labs from 07/05/2023 were reviewed and deemed appropriate for treatment. Lab Results Component Value Date WBC 3.5 07/05/2023 HGB 13.40 07/05/2023 HCT 40.3 05/08/2023 MCV 101 (H) 05/08/2023 PLT 201 07/05/2023 Lab Results Component Value Date GLUCOSE 97 07/05/2023 CALCIUM 9.6 05/08/2023 NA 136 05/08/2023 K 3.7 07/05/2023 CO2 23 05/08/2023 CL 100 05/08/2023 BUN 21 07/05/2023 CREATININE 0.9 07/05/2023 Lab Results Component Value Date ALT 26 07/05/2023 AST 33 07/05/2023 ALKPHOS 61 07/05/2023 BILITOT 0.6 07/05/2023 Lab Results Component Value Date NEUTROABS 2.3 07/05/2023 Lab Results Component Value Date MG 1.4 (L) 01/09/2023 No results found for: TSH Lab Results Component Value Date URINEPRO Negative 06/19/2023 Vitals: Vitals: 07/10/23912 BP: 137/76 Pulse: 83 Resp: 16 Temp: 36.7 ??C (98 ??F) SpO2: 94% Other Relevant Monitoring: None Treatment Plan: Cyclophosphamide 50 mg daily Bevacizumab 15 mg/kg (1200 mg) IV D1 Every 21 days [x] No dose adjustments made Current Treatment Plan History: Oral Cyclophosphamide 50 mg daily (08/31/22 - present) Bevacizumab Cycle 1: 03/20/23 Cycle 2: 04/10/23 Cycle 3: 05/08/23 Cycle 4: 05/29/23 Cycle 5: 06/19/23 Cycle 6: 07/10/23 Prior Chemotherapy History: hormone therapy for prior [...] Will follow-up at that time. Pharmacist Attestation: Kait Stewart PharmD PGY2 Hematology/Oncology Service Engineer Cosigned by Serena Xiong PharmD at 07/10/2023 11:31 AM EST Associated attestation - Serena Xiong PharmD - 07/10/2023 11:31 AM EST I saw and evaluated the patient with the resident/fellow. I discussed the case with the resident/fellow and agree with the findings and plan as documented. Serena Xiong PharmD, [facility] Hematology/Oncology Clinical Pharmacist documented in this encounter Plan of Treatment Upcoming Encounters Date Type Department Care Team (Late st Contact Info) Description 08/05/2024 8:00 AM EST Office Visit [facility] 800 [facility] [address] [place] [address] Penelope Carmona MD 800 [facility] [address]ai [facility] [address] [place] [address] 08/05/2024 9:30 AM EST Appointment [facility] 1 [address] [place] [address] 02/26/2025 9:30 AM EDT Appointment [facility] [address] [address] [address] [facility] 800 [place] [address] 02/26/2025 10:30 AM EDT Office Visit [facility] Center [address] [facility], 2nd [place] [address] Berenice Resendez, SECONDARY SCHOOL PRINCIPAL 800 [facility] Tamika Lai [facility] [address] [place] [address] documented as of this encounter Procedures Procedure Name Priority Date/Time Associated Diagnosis Comments CA 125 Routine 07/10/2023 9:25 AM EST Carcinoma of fallopian tube, unspecified laterality (CMS/HCC) CBC WITH AUTO DIFFERENTIAL Routine 07/05/2023 COMPREHENSIVE METABOLIC PANEL, PLASMA Routine 07/05/2023 documented in this encounter Results * CA 125 (07/10/2023 9:25 AM EST) Pathologist [facility] CA 125 6.26 <=38.00 U/mL 07/10/2023 10:44 AM EST [facility] Blood Blood sample taken from central line / Unknown (Port) Long-term Catheter / Unknown 07/10/2023 9:25 AM EST 07/10/2023 9:51 AM EST Narrative [facility] - 07/10/2023 10:44 AM EST Performed by Stephie electrochemiluminescent immunoassay. Results obtained with different test methods or kits cannot be used interchangeably. Penelope Dodson MD LAB BLOOD ORDERABLES Final Result [facility] [address] [place] [address] * CBC and Differential (07/05/2023) Pathologist [facility] External WBC 3.5 External Red Blood Cell (RBC) 3.78 External Hemoglobin (Hgb) 13.40 External Platelet Count (Plt) 201 External Neutrophil Abs 2.3 Blood Venous blood specimen / Unknown 07/05/2023 [facility] Provider LAB BLOOD ORDERABLES Edit ed Result - Final * Comprehensive Metabolic Panel, Plasma (07/05/2023) Pathologist [facility] External Glucose 97 External BUN 21 External Creatinine Blood 0.9 mg/dL External Potassium (K) 3.7 External AST (SGOT) 33 External ALT (SGPT) 26 External Alkaline Phosphatase 61 External Bilirubin Total 0.6 mg/dL Blood Venous blood specimen / Unknown 07/05/2023 Historical Provider LAB BLOOD ORDERABLES Paula l Result documented in this encounter Visit Diagnoses Diagnosis Carcinoma of fallopian tube, unspecified laterality (CMS/HCC)- Primary Encounter for antineoplastic chemotherapy Vaginal bleeding Other specified noninflammatory disorder of vagina Obesity (BMI 30-39.9) Neuropathy Mononeuritis of unspecified site documented in this encounter Additional Health Concerns Assessment Noted Time A fall risk assessment has been complete d for the patient 07/10/2023 10:01 AM EST A Body Mass Index follow-up plan has been documented for the patient 08/19/2022 9:30 AM EST documented as of this encounter Care Teams Manager Mountain Relationship Specialty Start Date End Date Flaquita Dorsey DO [address] [place], [place] [id number] PCP - General 12/14/21 Aliyah Valencia MD [address] [place] [address] Referring Physician 03/10/21 Conrado Iqbal MD [address] [place] [address] Service Attending Cardiology 08/19/22 documented as of this encounter
--- OUTSIDE RECORDS SUMMARY | 2024-07-10 11:56 | XMS_ITS | Encounter Summary ---
Author Organization Healthcare Address [address] [place], [place] [address] Care Team Providers Care Mop Machine Operator Name Role Phone Aliyah Valencia MD Unavailable [phone] Flaquita Dorsey DO Primary Care Provider [phone]- [phone] Conrado Iqbal MD Unavailable Encounter Details Date Type Department Care Team (Latest Contact Info) Description 07/10/2023 Travel Social History Tobacco Use Types Packs/Day Years Used Date Smoking Tobacco: Former Cigarettes 0.5 22 1 976 - 1998 Smokeless Tobacco: Former Alcohol Use Standard Drinks/Week [...] AM EST Office Visit [facility] 800 [facility] [address] [place] [address] Penelope Carmona MD 800 [facility] Mayra Lai [facility] [address] [place] [address] 08/05/2024 9:30 AM EST Appointment [facility] 1 [address] [place] [address] 02/26/2025 9:30 AM EDT Appointment [facility] Radha Lai Building [address] [place] [address] 02/26/2025 10:30 AM EDT Office Visit [facility] 7[address] [facility], 2nd [place] [address] Berenice Resendez D, PRACTICING MD ANESTHESIOLOGIST 800 [facility] [address] [place] [address] documented as of this encounter Visit Diagnoses Not on filedocumented in this encounter Additional Health Concerns Assessment Noted Time A fall risk assessment has been complete d for the patient 07/10/2023 10:01 AM EST A Body Mass Index follow-up plan has been documented for the patient 08/19/2022 9:30 AM EST documented as of this encounter Care Teams Mop Machine Operator Relationship Specialty Start Date End Date Flaquita Dorsey DO [address] [place] [address] PCP - General 12/14/21 Aliyah Valencia MD [address] [place] [place] [address] Referring Physician 03/10/21 Conrado Iqbal MD [address] [place] [address] Service Attending Cardiology 08/19/22 documented as of this encounter
--- OUTSIDE RECORDS SUMMARY | 2024-07-10 11:56 | XMS_ITS | Encounter Summary ---
Author Organization Healthcare Address [address] [place] [address] Care Team Providers Care Brand Ambassador Name Role Phone Aliyah Valencia MD Unavailable [phone] Flaquita Dorsey DO Primary Care Provider [phone] Conrado Iqbal MD Unavailable Encounter Details Date Type Department Care Team (Late st Contact Info) Description 08/22/2023 Telephone [facility] [address] [place] [address] Georgette Acevedo RN [facility] Social History Tobacco Use Types [...] encounter Miscellaneous Notes * Telephone Encounter - Georgette Acevedo RN - 08/22/2023 4:23 PM EST Patient called in stating she will be seen 08/23 in clinic and will need her gabapentin refilled. Thanks in advance. Georgette Acevedo RN documented in this encounter Plan of Treatment Upcoming Encounters Date Type Department Care Team (Late st Contact Info) Description 08/05/2024 8:00 AM EST Office Visit [facility] 800 [facility] [address] [place] [address] Penelope Carmona MD 800 [facility] Mayra Lai [facility] [address] [place] [address] 08/05/2024 9:30 AM EST Appointment [facility] 1 [address] [place] [address] 02/26/2025 9:30 AM EDT Appointment [facility] [address] [facility] 800 [place] [address] 02/26/2025 10:30 AM EDT Office Visit [facility] 7[address] [facility], 2nd [place] [address] Berenice Resendez, SALES OPERATIONS SPECIALIST 800 [facility] May[address] Lai [facility] [address] [place] [address] documented as of this encounter Visit Diagnoses Not on filedocumented in this encounter Additional Health Concerns Assessment Noted Time A fall risk assessment has been complete d for the patient 08/02/2023 2:06 PM EST A Body Mass Index follow-up plan has been documented for the patient 08/19/2022 9:30 AM EST documented as of this encounter Care Teams Brand Ambassador Relationship Specialty Start Date End Date Flaquita Dorsey DO [address] [place] [address] PCP - General 12/14/21 Aliyah Valencia MD [address] [place] [address] Referring Physician 03/10/21 Conrado Iqbal MD [address] [place] [address] Service Attending Cardiology 08/19/22 documented as of this encounter
--- OUTSIDE RECORDS SUMMARY | 2024-07-10 11:56 | XMS_ITS | Encounter Summary ---
Author Organization Healthcare Address [facility] [place] [id number] Care Team Providers Care Metal Tank Builder Name Role Phone Aliyah Valencia MD Unavailable [phone] Flaquita Dorsey DO Primary Care Provider [phone] Conrado Iqbal MD Unavailable Reason for Visit * Reason Comments Chemotherapy Encounter Details Date Type Department Care Team (Late st Contact Info) Description 08/02/2023 1:45 PM EST Office Visit [facility] [address] [place] [address] [place], Ely S, CERTIFIED PROCEDURAL CODER [address] [facility] [address] [place] [address] Carcinoma of fallopian tube, unspecified laterality (CMS/HCC) (Primary Dx) Social History Tobacco Use Types Packs/Day Years Used Date Smoking Tobacco: Former Cigarettes 0.5 22 1 976 - 1998 Passive Smoke Exposure: Past Smokeless Tobacco: Former Alcohol Use Standard Drinks/Week Comments Not Currently 0 (1 standard drink = 0.6 oz pur e alcohol) PHQ-2 Answer Date Recorded Patient Health Questionnaire-2 Score 0 08/02/2023 PHQ-2A Answer Date Recorded Patient Health Questionnaire-2 Score 0 07/10/2023 Comments No Sex and Gender Information Value Date Recorded Sex Assigned at Not on file Legal Sex Female 8:51 PM EDT Gender Identity Not on file Sexual Orientation Not on file documented as of this encounter Last Filed Vital Signs Vital Sign Reading Time Taken Comments Blood Pressure 130/75 08/02/2023 1:27 PM EST Pulse 89 08/02/2023 1:27 PM EST Temperature 36.6 ??C (97.9 ??F) 08/02/2023 1:27 PM ES T Respiratory Rate 16 08/02/2023 1:27 PM EST Oxygen Saturation 92% 08/02/2023 1:27 PM EST Inhaled Oxygen Concentration - - Weight 76.7 kg (169 lb 1.5 oz) 08/02/2023 1:27 P M EST Height 160 cm (5' 3 ) 08/02/2023 1:27 PM EST Body Mass Index 29.95 08/02/2023 1:27 PM EST documented in this encounter Miscellaneous Notes * Progress Notes - Aliyah Saravia, PharmD - 08/02/2023 1:45 PM EST Pharmacy Hematology/Oncology Treatment Plan Note [...] from 05/28/2001: pT1c, pN0, cM0, G2, ER+, KS+, HER2: Unknown - Signed by Cara Greene MD on 06/19/2021 - Pathologic stage from 10/05/2016: Stage Unknown (rpT1c, pNX, cM0, G2, ER+, KS+, HER2-) - Signed by Cara Greene MD on 06/19/2021 Study Patient: No Treatment Protocol: Bevacizumab IV every 21 days + continuous PO cytoxan Treatment Plan reviewed for: [x] Follow-Up Clinical Review Cycle 7 Day 1 [x] Follow-Up Clinical Review for Continuous Oral Therapy Interval History: Patient's CT scan from 03/13 demonstrated slight progression while on cytoxan PO. Re-initiated bevacizumab IV maintenance therapy every 21 days in addition to continuous cytoxan therapy due to prior response and cardiac monitoring WNL. May scans demonstrate response to treatment. 08/02/23: Ms John was seen in clinic. UA pending. CBC + BP WNL. Appropriate to proceed with treatment and she will be due for prolia (denosumab) along with bevacizumab today. Dosing Wt: 84 kg Today's Wt: Wt Readings from Last 1 Encounters: 08/02/23 76.6 kg (168 lb 14 oz) Dosing Ht: 160 cm Dosing BSA: 1.88 m2 Recent Labs: OSH labs from 07/05/2023 were reviewed and deemed appropriate for treatment. Lab Results Component Value Date WBC 3.88 08/02/2023 HGB 13.0 08/02/2023 HCT 39.9 08/02/2023 MCV 106 (H) 08/02/2023 PLT 202 08/02/2023 Lab Results Component Value Date GLUCOSE 97 07/05/2023 CALCIUM 9.6 05/08/2023 NA 136 05/08/2023 K 3.7 07/05/2023 CO2 23 05/08/2023 CL 100 05/08/2023 BUN 21 07/05/2023 CREATININE 0.9 07/05/2023 Lab Results Component Value Date ALT 26 07/05/2023 AST 33 07/05/2023 ALKPHOS 61 07/05/2023 BILITOT 0.6 07/05/2023 Lab Results Component Value Date NEUTROABS 2.55 08/02/2023 Lab Results Component Value Date MG 1.4 (L) 01/09/2023 No results found for: TSH Lab Results Component Value Date URINEPRO Negative 06/19/2023 Vitals: Vitals: 08/02/23 1327 BP: 130/75 Pulse: 89 Resp: 16 Temp: 36.6 ??C (97.9 ??F) SpO2: 92% Other Relevant Monitoring: None Treatment Plan: Cyclophosphamide 50 mg daily Bevacizumab 15 mg/kg (1200 mg) IV D1 Every 21 days + Denosumab q 6 months (LD 01/09/23, due 08/02/23) [x] No dose adjustments made Current Treatment Plan History: Oral Cyclophosphamide 50 mg daily (08/31/22 - present) Bevacizumab Cycle 1: 03/20/23 Cycle 2: 04/10/23 Cycle 3: 05/08/23 Cycle 4: 05/29/23 Cycle 5: 06/19/23 Cycle 6: 07/10/23 Cycle 7: 08/02/23 Prior Chemotherapy History: hormone therapy for prior [...] Saravia PharmD, BCPS * Progress Notes - Ely Camilo APRN - 08/02/2023 1:45 PM EST Primary Care Provider: Flaquita Dorsey [...] were negative for metastatic disease. ER and KS were strongly positive and HER-2 was negative. [...] ER positive in 90% of the cells, KS positive in 95% of cells andHER-2 negative by IHC at 0. On 10/04/2016 she underwent a left needle localized lumpectomy. Golf lymph node biopsy was not performed as [...] Initiated neoadjuvant chemo with carbo/Taxol per MARKETING CLERK followed by BSO/Omentectomy and adjuvant Carbotaxol. Recurrence in March 2019. Treated with carbo initially followed by Olaparib. 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 She is currently off of therapy. She follows with Dr. Hutchins in [facility]Onc. 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 Recurrence - First recurrence, pechanga sensitive - CT 04/10/19 with 3 cmlesion at cuff - Ca125 12 (from 8) - MTB discussion: recommend trial if progression on pechanga regimen or consider Parp for RAD 51 [...] ccy for choledocolithiasis 2019 (SGB) - Ca125: 59-6-0-7-7-9-8 - Started Parp inhibitor 09/2019 - Dose [...] concerning findings - Most recent Ca125 7.49 (81781) 06/30/2021 Recurrence - Third recurrence, pechanga sensitive - CT 06/30/2021 shows vaginal cuff [...] disease seen 04/11/2022 Recurrence - Fourth recurrence, pechanga resistant - CT 04/11/2022 with increase in [...] appropriate. Patient is here today for cycle 7 of Dana. Doing very well. Has been taking imodium for diarrhea, reports this has been helpful. Very littleresidual vaginal bleeding. No appetite changes. No N/V. No severe headaches, some sinus congestion at this time. Feet and fingertips with stable neuropathies. This has been ongoing. She will be goingback to her eye doctor Dr. Bradley this month for ongoing issues in her right eye since February. Shebelieves this relates to steroid eye drops that she used last year. PMH: h/o breast cancer x2, ?cervical cancer, [...] years ago, no drugs, retired, [place] in [place]. FamHx: Father-prostate, MGma-colon. ROS: 14 pt ROS performed with pertinent positives and negatives as noted in HPI. ROS otherwise negative Objective Physical Exam: Vital Signs for this encounter: BSA: 1.85 meters squared Visit Vitals BP 130/75 (BP Location: Right arm, Patient Position: Sitting, BP Cuff Size: Adult) Pulse 89 Temp 36.6 ??C (97.9 ??F) (Oral) Resp 16 Ht 1.6 m (5' 3 ) Wt 76.7 kg (169 lb 1.5 oz) LMP 11/17/1981 (Approximate) SpO2 92% BMI 29.95 kg/m?? OB Status Hysterectomy Smoking Status Former [...] by radiation for additional recurrence - Now pechanga resistant - Started Dana/oral Cytoxan, held Dana after cycle 4 due to Chest pain - CT after 4 cycles showed interval resolution of vaginal mass and no further disease. - At visit 08/2022: Patient had additional CP episode and heart cath subsequently performed. No severe disease noted and acid supervisor reports ok to continue Dana. However, [...] to improved disease at cuff. - Cycle 7 of Dana today. Continue Cytoxan. Cyclic Ca125 monitoring with imaging q 3-4 cycles. Problem 2: Encounter for chemotherapy Assessment and plan 2: - Proceed with cycle 7 of Bevacizumab 15 mg/kg today. Plan q [...] mass at cuff - Now minimal after 6 cycles of Dana. Monitor. Problem 4: History [...] cards at - Seen by cardiology at [facility] and acute workup negative but diagnostic cath [...] early April - ED workup negative for DC - Continue to monitor closely Problem 7: Obesity Assessment and plan 7: - Body mass index is 29.95 kg/m??. - Affects all aspects of care Problem 8: History of cervical cancer Assessment and plan 8: - Distant history, usp survivor. Problem 9: Intermittent diarrhea Assessment and plan 9: - Unlikely relation to Cytoxan given timing/drug profile - Offered colonoscopy/GI referral but declines for now - Minimal symptoms between cycles 6 and now - Monitor Summary of time spent in team based care today includes the following activities performed by myself: review of prior documentation in preparation for visit, review of weekly labs and any other test results, obtaining and reviewing medical history, appropriate focused physical exam, discussion of exam and/or test results, discussion of plan of care, lab orders, phlebotomy, and documentation. NICKOLAS Huerta [facility] GYNECOLOGY [address] [facility] [address] [facility] [address] Dept: [phone] Dept Loc: [phone] documented in this encounter Plan of Treatment Upcoming Encounters Date Type Department Care Team (Late st Contact Info) Description 08/05/2024 8:00 AM EST Office Visit [facility] Gynecology [address] [facility] [address] [place] [address] Penelope Carmona MD [address] [facility] [address] [facility] [address] [place] [phone] 08/05/2024 9:30 AM EST Appointment [facility] Infusion Clinic [address] [place] [phone] 02/26/2025 9:30 AM EDT Appointment [facility] Breast Care Center [facility] [address] [facility] [address] [place] [address] 02/26/2025 10:30 AM EDT Office Visit [facility] Breast Care Center [address] [facility] [place] [address] Berenice Resendez, CERTIFIED PROCEDURAL CODER [address] [facility] [address] [facility] [address] [place] [address] documented as of this encounter Procedures Procedure Name Priority Date/Time Associated Diagnosis Comments URINALYSIS MICROSCOPIC FOR UA REFLEX Routine 08/02/2023 2:06 PM EST Carcinoma of fallopian tube, unspecified laterality (CMS/HCC) URINALYSIS WITH REFLEX MICROSCOPIC Routine 08/02/2023 2:06 PM EST Carcinoma of fallopian tube, unspecified laterality (CMS/HCC) CBC WITH AUTO DIFFERENTIAL Routine 08/02/2023 1:38 PM EST Carcinoma of fallopian tube, unspecified laterality (CMS/HCC) CA 125 Routine 08/02/2023 1:38 PM EST Carcinoma of fallopian tube, unspecified laterality (CMS/HCC) COMPREHENSIVE METABOLIC PANEL, PLASMA Routine 08/02/2023 1:38 PM EST Carcinoma of fallopian tube, unspecified laterality (CMS/HCC) documented in this encounter Results * Urinalysis Microscopic Examination (08/02/2023 2:06 PM EST) Urine Urine specimen obtained by clean catch procedure / Unknown Non-blood Collection / Unknown 08/02/2023 2:06 PM EST 08/02/2023 2:29 PM EST us Ely Oseguera CERTIFIED PROCEDURAL CODER LAB URINE ORDERABLES Final R esult Performing Organization Address City/State/RUST Co de Phone Number [facility] [address] [place] [phone] * (ABNORMAL) Urinalysis with reflex microscopic (08/02/2023 2:06 PM EST) Color, Urine Yellow LAB URINALYSIS - AUTOMATED METHOD 08/02/2023 2:49 PM EST [facility] Clarity, Urine Clear LAB URINALYSIS - AUTOMATED METHOD 08/02/2023 2:49 PM EST [facility] Spec [place], Urine 1.009 <=1.005 to >=1.030 LAB URINALYSIS - AUTOMATED METHOD 08/02/2023 2:49 PM EST [facility] pH, Urine 5.5 4.5 to 8 LAB URINALYSIS - AUTOMATED METHOD 08/02/2023 2:49 PM EST [facility] Protein, Urine Negative Negative mg/dL LAB URINALYSIS - AUTOMATED METHOD 08/02/2023 2:49 PM EST [facility] Glucose, Urine Negative Negative mg/dL LAB URINALYSIS - AUTOMATED METHOD 08/02/2023 2:49 PM EST [facility] Ketones, Urine Negative Negative mg/dL LAB URINALYSIS - AUTOMATED METHOD 08/02/2023 2:49 PM EST [facility] Blood, Urine Negative Negative LAB URINALYSIS - AUTOMATED METHOD 08/02/2023 2:49 PM EST [facility] Bilirubin, Urine Negative Negative LAB URINALYSIS - AUTOMATED METHOD 08/02/2023 2:49 PM EST [facility] Urobilinogen, Urine 0.2 0.2 to 1.0 mg/dL LAB URINALYSIS - AUTOMATED METHOD 08/02/2023 2:49 PM EST [facility] Leukocytes, Urine Trace(A) Negative LAB URINALYSIS - AUTOMATED METHOD 08/02/2023 2:49 PM EST [facility] Nitrite, Urine Negative Negative LAB URINALYSIS - AUTOMATED METHOD 08/02/2023 2:49 PM EST [facility] RBC, Urine <1 0 to 3 /HPF LAB URINALYSIS - AUTOMATED METHOD 08/02/2023 2:49 PM EST [facility] WBC, Urine 0 - 5 0 to 5 /HPF LAB URINALYSIS - AUTOMATED METHOD 08/02/2023 2:49 PM EST [facility] Squamous Epithelial Cells 0 - 2 0 to 5 /HPF LAB URINALYSIS - AUTOMATED METHOD 08/02/2023 2:49 PM EST [facility] Hyaline Casts 6 - 10(A) 0 to 5 /LPF LAB URINALYSIS - AUTOMATED METHOD 08/02/2023 2:49 PM EST [facility] Bacteria, Urine Negative Negative LAB URINALYSIS - AUTOMATED METHOD 08/02/2023 2:49 PM EST [facility] Urine Urine specimen obtained by clean catch procedure / Unknown Non-blood Collection / Unknown 08/02/2023 2:06 PM EST 08/02/2023 2:29 PM EST us Ely Oseguera APRN LAB URINE ORDERABLES Final R esult [facility] [address] [place] [address] * CA 125 (08/02/2023 1:38 PM EST) CA 125 6.58 <=38.00 U/mL 08/02/2023 3:36 PM EST [facility] Blood Blood sample taken from central line / Unknown (Port) Long-term Catheter / Unknown 08/02/2023 1:38 PM EST 08/02/2023 2:28 PM EST [facility] - 08/02/2023 3:36 PM EST Performed by Stephie electrochemiluminescent immunoassay. Results obtained with different test methods or kits cannot be used interchangeably. us Penelope Dodson MD LAB BLOOD ORDERABLES Final Result [facility] [address] [place] [address] * (ABNORMAL) Comprehensive metabolic panel (08/02/2023 1:38 PM EST) Glucose, Plasma 96 74 - 99 mg/dL 08/02/2023 3:07 PM EST [facility] BUN, Plasma 22 8 - 23 mg/dL 08/02/2023 3:07 PM EST [facility] Creatinine, Plasma 0.85 0.60 - 1.10 mg/dL 08/02/2023 3:07 PM EST [facility] BUN/Creatinine Ratio 26 08/02/2023 3:07 PM EST [facility] Sodium, Plasma 137 136 - 145 mmol/L 08/02/2023 3:07 PM EST [facility] Potassium, Plasma 3.9 3.7 - 4.8 mmol/L 08/02/2023 3:07 PM EST [facility] Chloride, Plasma 102 97 - 107 mmol/L 08/02/2023 3:07 PM EST [facility] CO2, Plasma 21(L) 22 - 29 mmol/L 08/02/2023 3:07 PM EST [facility] Anion Gap 14 6 - 16 mmol/L 08/02/2023 3:07 PM EST [facility] Total Calcium, Plasma 9.7 8.9 - 10.2 mg/dL 08/02/2023 3:07 PM EST [facility] Total Protein 6.9 6.3 - 7.9 g/dL 08/02/2023 3:07 PM EST [facility] Albumin, Plasma 4.1 3.5 - 5.2 g/dL 08/02/2023 3:07 PM EST [facility] AST, Plasma 27 10 - 35 U/L 08/02/2023 3:07 PM EST [facility] Comment:Hemolyzed, result ma y be falsely increased. ALT, Plasma 22 10 - 35 U/L 08/02/2023 3:07 PM EST [facility] Alkaline Phosphatase, Plasma 73 46 - 142 U/L 08/02/2023 3:07 PM EST [facility] Total Bilirubin, Plasma 0.4 0.2 - 1.1 mg/dL 08/02/2023 3:07 PM EST [facility] eGFRcr 70.7 mL/min/1.7 3m*2 08/02/2023 3:07 PM EST [facility] Comment:Reported eGFRcr in m L/min/1.73m2 is based the CKD-EPI 2020 equation that does not use a race coefficient. Blood Blood sample taken from central line / Unknown (Port) Long-term Catheter / Unknown 08/02/2023 1:38 PM EST 08/02/2023 2:28 PM EST Penelope Dodson MD LAB BLOOD ORDERABLES Final Result [facility] [address] [place] [address] * (ABNORMAL) CBC and differential (08/02/2023 1:38 PM EST) WBC Count 3.88 3.70 - 10.30 10*3/uL LAB HEMATOLOGY METHOD 08/02/2023 2:19 PM EST [facility] RBC Count 3.78(L) 3.90 - 5.20 10*6/uL LAB HEMATOLOGY METHOD 08/02/2023 2:19 PM EST [facility] HGB 13.0 11.2 - 15.7 g/dL LAB HEMATOLOGY METHOD 08/02/2023 2:19 PM EST [facility] HCT 39.9 34.0 - 45.0 % LAB HEMATOLOGY METHOD 08/02/2023 2:19 PM EST [facility] Platelet Count 202 155 - 369 10*3/uL LAB HEMATOLOGY METHOD 08/02/2023 2:19 PM EST [facility] MCV 106(H) 79 - 98 fL LAB HEMATOLOGY METHOD 08/02/2023 2:19 PM EST [facility] MCH 34.4(H) 26.0 - 32.0 pg LAB HEMATOLOGY METHOD 08/02/2023 2:19 PM EST [facility] MCHC 32.6 30.7 - 35.5 g/dL LAB HEMATOLOGY METHOD 08/02/2023 2:19 PM EST [facility] RDW 14.6(H) 11.5 - 14.5 % LAB HEMATOLOGY METHOD 08/02/2023 2:19 PM EST [facility] MPV 9.4 8.8 - 12.5 fL LAB HEMATOLOGY METHOD 08/02/2023 2:19 PM EST [facility] nRBC 0.0 <=0.0 per 100 WBCs LAB HEMATOLOGY METHOD 08/02/2023 2:19 PM EST [facility] Differential Type Automated LAB HEMATOLOGY METHOD 08/02/2023 2:19 PM [facility] Neutrophils % 65.0 % LAB HEMATOLOGY METHOD 08/02/2023 2:19 PM EST [facility] Lymphocytes % 19.0 % LAB HEMATOLOGY METHOD 08/02/2023 2:19 PM EST [facility] Monocytes % 7.0 % LAB HEMATOLOGY METHOD 08/02/2023 2:19 PM EST [facility] Eosinophils % 7.0 % LAB HEMATOLOGY METHOD 08/02/2023 2:19 PM [facility] Basophils % 1.0 % LAB HEMATOLOGY METHOD 08/02/2023 2:19 PM [facility] Immature Granulocytes % 1.0 % LAB HEMATOLOGY METHOD 08/02/2023 2:19 PM [facility] Neutrophils Absolute 2.55 1.60 - 6.10 10*3/uL LAB HEMATOLOGY METHOD 08/02/2023 2:19 PM [facility] Lymphocytes Absolute 0.72(L) 1.20 - 3.90 10*3/uL LAB HEMATOLOGY METHOD 08/02/2023 2:19 PM [facility] Monocytes Absolute 0.28(L) 0.30 - 0.90 10*3/uL LAB HEMATOLOGY METHOD 08/02/2023 2:19 PM EST [facility] Eosinophils Absolute 0.28 0.00 - 0.50 10*3/uL LAB HEMATOLOGY METHOD 08/02/2023 2:19 PM [facility] Basophils Absolute 0.03 0.00 - 0.10 10*3/uL LAB HEMATOLOGY METHOD 08/02/2023 2:19 PM EST [facility] Immature Granulocytes Absolute 0.02 0.00 - 0.06 10*3/uL LAB HEMATOLOGY METHOD 08/02/2023 2:19 PM EST [facility] Blood Blood sample taken from central line / Unknown (Port) Long-term Catheter / Unknown 08/02/2023 1:38 PM EST 08/02/2023 2:16 PM EST Narrative [facility] - 08/02/2023 2:19 PM EST Therapeutic decision making should be based on absolute values, rather than percentages. us Penelope Dodson MD LAB BLOOD ORDERABLES Final Result [facility] [address] [place] [address] documented in this encounter Visit Diagnoses Diagnosis Carcinoma of fallopian tube, unspecified laterality (CMS/HCC)- Primary documented in this encounter Additional Health Concerns Assessment Noted Time A fall risk assessment has been complete d for the patient 08/02/2023 2:06 PM EST A Body Mass Index follow-up plan has been documented for the patient 08/19/2022 9:30 AM EST documented as of this encounter Care Teams Metal Tank Builder Relationship Specialty Start Date End Date Flaquita Dorsey DO [address] [place] [address] PCP - General 12/14/21 Aliyah Valencia MD [address] [place] [address] Referring Physician 03/10/21 Conrado Iqbal MD [address] [place] [address] Service Attending Cardiology 08/19/22 documented as of this encounter
--- OUTSIDE RECORDS SUMMARY | 2024-07-10 11:56 | XMS_ITS | Encounter Summary ---
Author Organization [facility] Address [address] [place], [place] [address] Care Team Providers Care Guide Alpine Name Role Phone Aliyah Valencia MD Unavailable [phone] Flaquita Dorsey DO Primary Care Provider [phone] Conrado Iqbal MD Unavailable Reason for Visit * Episode Based Medications (Routine) - Authorized Specialty Diagnoses / Procedures Referred By Contac t Referred To Contact Diagnoses Carcinoma of fallopian tube, unspecified laterality (CMS/HCC) Procedures Bevacizumab Every 21 Days Penelope Carmona MD [address] [address] Phone: tel: fax: [facility] Infusion Clinic 2 [address] [place] [address] Phone: tel: Referral ID Status Reason Start Date Expiration Date V isits Requested Visits Authorized [id number] Authorized 03/13/2023 09/11/2024 1 26 Encounter Details Date Type Department Care Team (Latest Contact Info) Description 06/19/2023 4:05 PM EST - 06/19/2023 11:59 PM EST Hospital Encounter [facility] Infusion Clinic 2 [address] [place] [address] Carcinoma of fallopian tube, unspecified [...] Date Recorded Patient Health Questionnaire-2 Score 0 06/19/2023 PHQ-2A Answer Date Recorded Patient Health Questionnaire-2 Score 0 06/19/2023 Comments No Sex and Gender Information Value Date Recorded Sex Assigned at Not on file Legal Sex Female 8:51 PM EDT Gender Identity Not on file Sexual Orientation Not on file documented as of this encounter Last Filed Vital Signs Vital Sign Reading Time Taken Comments Blood Pressure 109/72 06/19/2023 4:09 PM EST Pulse 89 06/19/2023 4:09 PM EST Temperature 36.9 ??C (98.5 ??F) 06/19/2023 4:09 PM ES T Respiratory Rate 16 06/19/2023 4:09 PM EST Oxygen Saturation 98% 06/19/2023 4:09 PM EST Inhaled Oxygen Concentration - - Weight 78.4 kg (172 lb 13.5 oz) 06/19/2023 4:09 PM EST Height 160 cm (5' 3 ) 06/19/2023 4:09 PM EST Body Mass Index 30.62 06/19/2023 4:09 PM EST documented in this encounter Medications at Time of Discharge aspirin 81 MG chewable tablet Chew 1 tablet (81 mg) 1 (one) time each day. ergocalciferol (Vitamin D-2) 1.25 MG (56817 UT) capsule Take 1 capsule (50,000 Units) by mouth 1 (one) time per week. Monday furosemide (Lasix) 20 MG tablet Take 1 [...] mouth 1 (one) time each day. 05/23/2024 cyclophosphamide (Cytoxan) 50 MG capsule capsule Take 1 capsule (50 mg) by mouth 1 (one) time each day. 30 capsule 2 06/19/2023 09/13/2023 Flaxseed, Linseed, (Flaxseed Oil) 1000 MG capsule Take 1 tablet by mouth 1 (one) time each day. 05/23/2024 gabapentin (Neurontin) 400 MG capsule Take 1 capsule (400 mg) by mouth 3 (three) times a day. 90 capsule 3 02/22/2023 08/23/2023 nitroglycerin (Nitrostat) 0.4 MG SL tablet every 5 (five) minutes if needed. 06/24/2022 05/23/2024 prochlorperazine (Compazine) 10 MG tabletIndications :Carcinoma of fallopian tube, unspecified laterality (CMS/HCC) Take 1 tablet (10 mg total) by mouth every 6 (six) hours if needed for nausea or vomiting. 30 tablet 5 04/11/2022 05/23/2024 simvastatin (Zocor) 40 MG tablet Take 1 tablet (40 mg) by mouth every night. 05/23/2024 Synthroid 88 MCG tablet Take 75 mcg by mouth 1 (one) time each day. 05/29/2023 05/23/2024 documented as of this encounter Plan of Treatment Upcoming Encounters Date Type Department Care Team (Late st Contact Info) Description 08/05/2024 8:00 AM EST Office Visit [facility] Gynecology 800 [facility] [address] [place] [address] Penelope Carmona MD 800 [facility] [address] [facility] [address] [place] [address] 08/05/2024 9:30 AM EST Appointment [facility] 1 [address] [place] [address] 02/26/2025 9:30 AM EDT Appointment [facility] [place] [address] [address] [facility] 800 [place] [address] 02/26/2025 10:30 AM EDT Office Visit [facility] 7[address] [facility], 2nd [place] [address] Berenice Resendez, TREE MARKER [address] [facility] [address] [place] [address] documented as of this encounter Procedures Procedure Name Priority Date/Time Associated Diagnosis Comments URINALYSIS, DIPSTICK Routine 06/19/2023 4:43 PM EST Carcinoma of fallopian tube, unspecified laterality (CMS/HCC) documented in this encounter Results * (ABNORMAL) Urinalysis, manual only (06/19/2023 4:43 PM EST) Color, Urine Yellow LAB URINALYSIS - AUTOMATED METHOD 06/19/2023 5:14 PM EST [facility] Clarity, Urine Clear LAB URINALYSIS - AUTOMATED METHOD 06/19/2023 5:14 PM EST [facility] Spec [place], Urine 1.010 <=1.005 to >=1.030 LAB URINALYSIS - AUTOMATED METHOD 06/19/2023 5:14 PM EST [facility] pH, Urine 5.5 4.5 to 8 LAB URINALYSIS - AUTOMATED METHOD 06/19/2023 5:14 PM EST [facility] Protein, Urine Negative Negative mg/dL LAB URINALYSIS - AUTOMATED METHOD 06/19/2023 5:14 PM EST [facility] Glucose, Urine Negative Negative mg/dL LAB URINALYSIS - AUTOMATED METHOD 06/19/2023 5:14 PM EST [facility] Ketones, Urine Negative Negative mg/dL LAB URINALYSIS - AUTOMATED METHOD 06/19/2023 5:14 PM EST [facility] Blood, Urine Negative Negative LAB URINALYSIS - AUTOMATED METHOD 06/19/2023 5:14 PM EST [facility] Bilirubin, Urine Negative Negative LAB URINALYSIS - AUTOMATED METHOD 06/19/2023 5:14 PM EST [facility] Urobilinogen, Urine 0.2 0.2 to 1.0 mg/dL LAB URINALYSIS - AUTOMATED METHOD 06/19/2023 5:14 PM EST [facility] Leukocytes, Urine Small(A) Negative LAB URINALYSIS - AUTOMATED METHOD 06/19/2023 5:14 PM EST [facility] Nitrite, Urine Negative Negative LAB URINALYSIS - AUTOMATED METHOD 06/19/2023 5:14 PM EST [facility] Urine Urine specimen obtained by clean catch procedure / Unknown Non-blood Collection / Unknown 06/19/2023 4:43 PM EST 06/19/2023 5:07 PM EST Penelope Dodson MD LAB URINE ORDERABLES Final Result [facility] [address] [place] [address] documented in this encounter Visit Diagnoses Diagnosis [...] Specific administration requirements refer to A14-065., On 06/19/23 at 1700, For 1 dose, NS 100 mLIndications:Carcinoma of fallopian tube, unspecified laterality (CMS/HCC) New Bag 06/19/2023 5:34 PM EST 1,200 mg 356 mL/hr documented in this encounter Additional Health Concerns Assessment Noted Time A fall risk assessment has been complete d for the patient 06/19/2023 4:10 PM EST A Body Mass Index follow-up plan has been documented for the patient 08/19/2022 9:30 AM EST documented as of this encounter Care Teams Guide Alpine Relationship Specialty Start Date End Date Flaquita Dorsey DO [address] [place] [address] PCP - General 12/14/21 Aliyah Valencia MD [address] [place] [address] Referring Physician 03/10/21 Conrado Iqbal MD [address] [place] [address] Service Attending Cardiology 08/19/22 documented as of this encounter
--- OUTSIDE RECORDS SUMMARY | 2024-07-10 11:56 | XMS_ITS | Encounter Summary ---
Author Organization [facility] Address [facility] [place] [id number] Care Team Providers Care Veneer Drier Name Role Phone Aliyah Valencia MD Unavailable [phone] Flaqutia Dorsey DO Primary Care Provider [phone] Conrado Iqbal MD Unavailable Reason for Visit * Episode Based Medications (Routine) - Authorized Specialty Diagnoses / Procedures Referred By Contac t Referred To Contact Diagnoses Carcinoma of fallopian tube, unspecified laterality (CMS/HCC) Procedures Bevacizumab Every 21 Days Penelope Carmona MD [address] [address] Phone: tel: fax: [facility] Infusion Clinic 2 [address] [place] [address] Phone: tel: Referral ID Status Reason Start Date Expiration Date V isits Requested Visits Authorized [id number] Authorized 03/13/2023 09/11/2024 1 26 Encounter Details Date Type Department Care Team (Latest Contact Info) Description 08/02/2023 2:02 PM EST - 08/02/2023 11:59 PM EST Hospital Encounter [facility] Infusion Clinic 2 [address] [place] [address] Carcinoma of fallopian tube, unspecified [...] Sign Reading Time Taken Comments Blood Pressure 118/74 08/02/2023 4:15 PM EST Pulse 91 08/02/2023 4:15 PM EST Temperature 36.6 ??C (97.8 ??F) 08/02/2023 2:05 PM ES T Respiratory Rate 14 08/02/2023 2:05 PM EST Oxygen Saturation 96% 08/02/2023 2:05 PM EST Inhaled Oxygen Concentration - - Weight 76.6 kg (168 lb 14 oz) 08/02/2023 2:05 PM EST Height 160 cm (5' 3 ) 08/02/2023 2:05 PM EST Body Mass Index 29.91 08/02/2023 2:05 PM EST documented in this encounter Medications at Time of Discharge aspirin 81 MG chewable tablet Chew 1 tablet (81 mg) 1 (one) time each day. ergocalciferol (Vitamin D-2) 1.25 MG (18426 UT) capsule Take 1 capsule (50,000 Units) [...] 05/29/2023 05/23/2024 documented as of this encounter Miscellaneous Notes * Addendum Note - Carlene Smith - 08/02/2023 3:00 PM ESTEncounter addended by: Carlene Smith on: 08/16/2023 1:25 PM Actions taken: Charge Capture section accepted documented in this encounter Plan of Treatment Upcoming Encounters Date Type Department Care Team (Late st Contact Info) Description 08/05/2024 8:00 AM EST Office Visit [facility]necology [address] [place] [address] Penelope Carmona MD [address] [place] [address] 08/05/2024 9:30 AM EST Appointment [facility] 1 [address] [place] [address] 02/26/2025 9:30 AM EDT Appointment [facility] [address] [place] [address] 02/26/2025 10:30 AM EDT Office Visit [facility] 7[address] [facility], 2nd [place] [address] Berenice Resendez, GLUE CLAMP OPERATOR 800 [facility] [address] [place] [address] documented as of this encounter [...] Specific administration requirements refer to A14-065., On Mon08/02/23 at 1530, For 1 dose, NS 100 mLIndications:Carcinoma of fallopian tube, unspecified laterality (CMS/HCC) New Bag 08/02/2023 3:44 PM EST 1,200 mg 356 mL/hr denosumab (Prolia) 60 MG/ML injection 60 mg 60 mg, Subcutaneous, Once, Avoid vigorous shaking of syringe; Prior to administration, bring to room temperature in original container for about 15 to 30 minutes; Administer via subcutaneous route in upper arm, upper thigh, or abdomen, On Mon08/02/23 at 1530, For 1 doseIndications:History of aromatase inhibitor therapy,Osteopenia, unspecified location,Malignant neoplasm of left breast in female, estrogen receptor positive, unspecified site of breast (CMS/HCC) Given 08/02/2023 3:42 PM EST 60 mg Right Upper Arm (Back) documented in this encounter Additional Health Concerns Assessment Noted Time A fall risk assessment has been complete d for the patient 08/02/2023 2:06 PM EST A Body Mass Index follow-up plan has been documented for the patient 08/19/2022 9:30 AM EST documented as of this encounter Care Teams Veneer Drier Relationship Specialty Start Date End Date Flaquita Dorsey DO [address] [place] [address] PCP - General 12/14/21 Aliyah Valencia MD [address] [place] [address] Referring Physician 03/10/21 Conrado Iqbal MD [address] [place] [address] Service Attending Cardiology 08/19/22 documented as of this encounter
--- OUTSIDE RECORDS SUMMARY | 2024-07-10 11:56 | XMS_ITS | Encounter Summary ---
Author Organization [facility] Address [address] [place], [place] [address] Care Team Providers Care Jacquard Loom Fixer Name Role Phone Aliyah Valencia MD Unavailable [phone] Flaquita Dorsey DO Primary Care Provider [phone]- [phone] Conrado Iqbal MD Unavailable Encounter Details Date Type Department Care Team (Late Contact Info) Description 07/27/2023 Clinical Support [facility] [address] [place] [address] Aliyah Saravia, PharmD [address] [facility] [address] [place] [address] History of aromatase inhibitor therapy (Primary Dx); Osteopenia, unspecified location; Malignant neoplasm of left breast in female, estrogen receptor positive, unspecified site of breast (CMS/HCC) Social History Tobacco Use Types Packs/Day [...] AM EST Office Visit [facility] 800 [facility] [address] [place] [address] Penelope Carmona MD 800 [facility] [address] [facility] [address] [place] [address] 08/05/2024 9:30 AM EST Appointment [facility] 1 [address] [place] [address] 02/26/2025 9:30 AM EDT Appointment [facility] [address] [facility] 800 [place] [address] 02/26/2025 10:30 AM EDT Office Visit [facility] Breast Care Center [address] [facility], 2nd [place] [address] Berenice Resendez, ELECTROLYSIS NEEDLE OPERATOR 800 [facility] [address] [facility] [address] [place] [address] documented as of this encounter Visit Diagnoses Diagnosis History of aromatase inhibitor therapy- Primary Osteopenia, unspecified location Malignant neoplasm of left breast in female, estrogen receptor positive, unspecified site of breast (CMS/HCC) documented in this encounter Additional Health Concerns Assessment Noted Time A fall risk assessment has been complete d for the patient 07/10/2023 10:01 AM EST A Body Mass Index follow-up plan has been documented for the patient 08/19/2022 9:30 AM EST documented as of this encounter Care Teams Jacquard Loom Fixer Relationship Specialty Start Date End Date Flaquita Dorsey DO [address] [place] [address] PCP - General 12/14/21 Aliyah Valencia MD [address] [place] [address] Referring Physician 03/10/21 Conrado Iqbal MD [address] [place] [address] Service Attending Cardiology 08/19/22 documented as of this encounter
--- OUTSIDE RECORDS SUMMARY | 2024-07-10 11:56 | XMS_ITS | Encounter Summary ---
Author Organization [facility] Address [address] [place], [place] [address] Care Team Providers Care Inside Account Executive Name Role Phone Aliyah Valencia MD Unavailable [phone] Flaquita Dorsey DO Primary Care Provider [phone]- [phone] Conrado Iqbal MD Unavailable Encounter Details Date Type Department Care Team (Late Contact Info) Description 08/23/2023 Refill [facility] [address] [place] [address] Aliyah Saravia, PharmD [address] [address] Social History Tobacco Use Types Packs/Day [...] [address] [place] [address] Penelope Carmona MD 800 [facility] [address] [place] [address] 08/05/2024 9:30 AM EST Appointment [facility] 1 [address] [place] [address] 02/26/2025 9:30 AM EDT Appointment [facility] [place] [address] [address] [facility] 800 [place] [address] 02/26/2025 10:30 AM EDT Office Visit [facility] [place] 7[address] [facility], 2nd [place] [address] Berenice Resendez, PROTECTION OFFICER 800 [facility] [address] [place] [address] documented as of this encounter Visit Diagnoses Not on filedocumented in this encounter Additional Health Concerns Assessment Noted Time A fall risk assessment has been complete d for the patient 08/23/2023 3:22 PM EST A Body Mass Index follow-up plan has been documented for the patient 08/19/2022 9:30 AM EST documented as of this encounter Care Teams Inside Account Executive Relationship Specialty Start Date End Date Flaquita Dorsey DO [address] [place] [address] PCP - General 12/14/21 Aliyah Valencia MD [address] [place] [place] [address] Referring Physician 03/10/21 Conrado Iqbal MD 800 [place] [address] Service Attending Cardiology 08/19/22 documented as of this encounter
--- OUTSIDE RECORDS SUMMARY | 2024-07-10 11:56 | XMS_ITS | Encounter Summary ---
Author Organization [facility] Address [address] [place], [place] [address] Care Team Providers Care Frame Straightener Name Role Phone Aliyah Valencia MD Unavailable [phone] Flaquita Dorsey DO Primary Care Provider [phone]- [phone] Conrado Iqbal MD Unavailable Encounter Details Date Type Department Care Team (Latest Contact Info) Description 08/02/2023 Travel Social History Tobacco Use Types Packs/Day [...] AM EST Office Visit [facility] [address] [place] [address] [address] [place] [address] Penelope Carmona MD 800 [facility] [address] [place] [address] 08/05/2024 9:30 AM EST Appointment [facility] 1 [address] [place] [address] 02/26/2025 9:30 AM EDT Appointment [facility] [address] [facility] 800 [place] [address] 02/26/2025 10:30 AM EDT Office Visit [facility] 740 [facility], 2nd [place] [address] Berenice Resendez, CLASSIFICATION CASE MANAGER 800 [facility] [address] [facility] [address] [place] [address] documented as of this encounter Visit Diagnoses Not on filedocumented in this encounter Additional Health Concerns Assessment Noted Time A fall risk assessment has been complete d for the patient 08/02/2023 2:06 PM EST A Body Mass Index follow-up plan has been documented for the patient 08/19/2022 9:30 AM EST documented as of this encounter Care Teams Frame Straightener Relationship Specialty Start Date End Date Flaquita Dorsey DO [address] [place] [address] PCP - General 12/14/21 Aliyah Valencia MD [address] [place] [place] [address] Referring Physician 03/10/21 Conrado Iqbal MD 800 [place] [address] Service Attending Cardiology 08/19/22 documented as of this encounter
--- OUTSIDE RECORDS SUMMARY | 2024-07-10 11:56 | XMS_ITS | Encounter Summary ---
Author Organization [facility] Address [address] [place], [place] [address] Care Team Providers Care Product Management Analyst Name Role Phone Aliyah Valencia MD Unavailable [phone] Flaquita Dorsey DO Primary Care Provider [phone] Conrado Iqbal MD Unavailable Reason for Visit * Episode Based Medications (Routine) - Authorized Specialty Diagnoses / Procedures Referred By Contac t Referred To Contact Diagnoses Carcinoma of fallopian tube, unspecified laterality (CMS/HCC) Procedures Bevacizumab Every 21 Days Penelope Carmona MD [address] [address] Phone: tel: fax: [facility] Infusion Clinic 2 [address] [place] [address] Phone: tel: Referral ID Status Reason Start Date Expiration Date V isits Requested Visits Authorized [id number] Authorized 03/13/2023 09/11/2024 1 26 Encounter Details Date Type Department Care Team (Latest Contact Info) Description 09/13/2023 1:38 PM EST - 09/13/2023 11:59 PM EST Hospital Encounter [facility] Infusion Clinic 1 [address] [place] [address] Carcinoma of fallopian tube, unspecified [...] Sign Reading Time Taken Comments Blood Pressure 139/82 09/13/2023 3:28 PM EST Pulse 66 09/13/2023 3:28 PM EST Temperature 36.6 ??C (97.8 ??F) 09/13/2023 1:43 PM ES T Respiratory Rate 18 09/13/2023 1:43 PM EST Oxygen Saturation 97% 09/13/2023 1:43 PM EST Inhaled Oxygen Concentration - - Weight 77 kg (169 lb 12.1 oz) 09/13/2023 1:43 PM EST Height 161.3 cm (5' 3.5 ) 09/13/2023 1:43 PM EST Body Mass Index 29.6 09/13/2023 1:43 PM EST documented in this encounter Medications at Time of Discharge aspirin 81 MG chewable tablet Chew 1 tablet (81 mg) 1 (one) time each day. ergocalciferol (Vitamin D-2) 1.25 MG (60239 UT) capsule Take 1 capsule (50,000 Units) [...] Office Visit [facility] 800 [facility] [address] [place] [address] Penelope Carmona MD 800 [facility] [address] [facility] [address] [place] [address] 08/05/2024 9:30 AM EST Appointment [facility] 1 [address] [place] [address] 02/26/2025 9:30 AM EDT Appointment [facility] [address] [facility] [address] [place] [address] 02/26/2025 10:30 AM EDT Office Visit [facility] 740 [facility], 2nd [place] [address] Berenice Resendez, SPECIAL TESTER 800 [facility] [address] [place] [address] documented as of this encounter [...] Specific administration requirements refer to A14-065., On Mon09/13/23 at 1545, For 1 dose, NS 100 mLIndications:Carcinoma of fallopian tube, unspecified laterality (CMS/HCC) New Bag 09/13/2023 4:01 PM EST 1,200 mg 356 mL/hr documented in this encounter Additional Health Concerns Assessment Noted Time A fall risk assessment has been complete d for the patient 09/13/2023 1:43 PM EST A Body Mass Index follow-up plan has been documented for the patient 08/19/2022 9:30 AM EST documented as of this encounter Care Teams Product Management Analyst Relationship Specialty Start Date End Date Flaquita Dorsey DO [address] [place] [address] PCP - General 12/14/21 Aliyah Valencia MD [address] [place] [address] Referring Physician 03/10/21 Conrado Iqbal MD [address] [place] [address] Service Attending Cardiology 08/19/22 documented as of this encounter
--- OUTSIDE RECORDS SUMMARY | 2024-07-10 11:56 | XMS_ITS | Encounter Summary ---
Author Organization [facility] Address [address] [place], [place] [id number] Care Team Providers Care Vp Biology Name Role Phone Aliyah Vaelncia MD Unavailable Flaquita Dorsey DO Primary Care Provider [phone] Conrado Iqbal MD Unavailable Reason for Referral * Imaging (Urgent) - Closed Specialty Diagnoses / Procedures Referred By Contac t Referred To Contact Radiology Diagnoses Carcinoma of fallopian tube, unspecified laterality (CMS/HCC) Procedures CT Abdomen Pelvis w IV Contrast Penelope Carmona MD [address] [address] Phone: tel: fax: Referral ID Status Reason Start Date Expiration Date Visits Re quested Visits Authorized [id number] Closed 09/14/2023 03/15/2025 1 1 * Imaging (Routine) - Closed Specialty Diagnoses / Procedures Referred By Contac t Referred To Contact Radiology Diagnoses Carcinoma of fallopian tube, unspecified laterality (CMS/HCC) Procedures CT Chest w IV Contrast Penelope Carmona MD [address] [address] Phone: tel: fax: Referral ID Status Reason Start Date Expiration Date Visits Re quested Visits Authorized [id number] Closed 09/14/2023 03/15/2025 1 1 Encounter Details Date Type Department Care Team (Late Contact Info) Description 09/14/2023 Orders Only [facility] [address] [place] [address] Penelope Carmona MD 800 [facility] [address] [facility] [address] [address] Carcinoma of fallopian tube, unspecified [...] Gynecology [address] [place] [address] Penelope Carmona MD 800 [facility] [address] [address] 08/05/2024 9:30 AM EST Appointment [facility] 1 [address] [place] [address] 02/26/2025 9:30 AM EDT Appointment [facility] [address] [facility] [address] [place] [address] 02/26/2025 10:30 AM EDT Office Visit [facility] [address] [place] [address] Berenice Resendez, HEALTH AND SOCIAL CARE TEACHER [address] [place] [address] documented as of this encounter Results * [...] Mark Whelan MD on 10/18/2023 8:52 AM Penelope Dodson MD IMG CT PROCEDURES [...] documented as of this encounter Care Teams Vp Biology Relationship Specialty Start Date End Date Flaquita Dorsey DO [address] [place] [address] PCP - General 12/14/21 Aliyah Valencia MD [address] [place] [place] [address] Referring Physician 03/10/21 Conrado Iqbal MD [address] [place] [address] Service Attending Cardiology 08/19/22 documented as of this encounter
--- OUTSIDE RECORDS SUMMARY | 2024-07-10 11:56 | XMS_ITS | Encounter Summary ---
Author Organization [facility] Address [address] [place], [place] [address] Care Team Providers Care Dull Coat Mill Operator Name Role Phone Aliyah Valencia MD Unavailable [phone] Flaquita Dorsey DO Primary Care Provider [phone]- [phone] Conrado Iqbal MD Unavailable Encounter Details Date Type Department Care Team (Latest Contact Info) Description 06/19/2023 Travel Social History Tobacco Use Types Packs/Day [...] AM EST Office Visit [facility] 800 [facility] [address] [place] [address] Penelope Carmona MD 800 [facility] [address] [facility] [address] [place] [address] 08/05/2024 9:30 AM EST Appointment [facility] 1 [address] [place] [address] 02/26/2025 9:30 AM EDT Appointment [facility] [address] [place] [address] 02/26/2025 10:30 AM EDT Office Visit [facility] [address] [facility], [address]nd [place] [address] Berenice Resendez D, QUALITY AUDITOR 800 [facility] [address] [place] [address] documented as of this encounter Visit Diagnoses Not on filedocumented in this encounter Additional Health Concerns Assessment Noted Time A fall risk assessment has been complete d for the patient 06/19/2023 4:10 PM EST A Body Mass Index follow-up plan has been documented for the patient 08/19/2022 9:30 AM EST documented as of this encounter Care Teams Dull Coat Mill Operator Relationship Specialty Start Date End Date Flaquita Dorsey DO [address] [place] [address] PCP - General 12/14/21 Aliyah Valencia MD [address] [place] [place] [address] Referring Physician 03/10/21 Conrado Iqbal MD [address] [place] [address] Service Attending Cardiology 08/19/22 documented as of this encounter
--- OUTSIDE RECORDS SUMMARY | 2024-07-10 11:56 | XMS_ITS | Encounter Summary ---
Author Organization [facility] Address [address] [place], [place] [address] Care Team Providers Care Director Product Management Name Role Phone Aliyah Valencia MD Unavailable [phone] Flaquita Dorsey DO Primary Care Provider [phone] Conrado Iqbal MD Unavailable Reason for Visit * Episode Based Medications (Routine) - Authorized Specialty Diagnoses / Procedures Referred By Contac t Referred To Contact Diagnoses Carcinoma of fallopian tube, unspecified laterality (CMS/HCC) Procedures Bevacizumab Every 21 Days Penelope Carmona MD [address] [address] Phone: tel: fax: [facility] [address] [place] [address] Phone: tel: Referral ID Status Reason Start Date Expiration Date V isits Requested Visits Authorized [id number] Authorized 03/13/2023 09/11/2024 1 26 Encounter Details Date Type Department Care Team (Latest Contact Info) Description 07/10/2023 9:54 AM EST - 07/10/2023 11:59 PM EST Hospital Encounter [facility] In[facility] [address] [place] [address] Carcinoma of fallopian tube, unspecified [...] Sign Reading Time Taken Comments Blood Pressure 108/72 07/10/2023 10:48 AM EST Pulse 83 07/10/2023 10:48 AM EST Temperature 36.3 ??C (97.4 ??F) 07/10/2023 10:[address] Respiratory Rate 16 07/10/2023 10:03 AM EST Oxygen Saturation 97% 07/10/2023 10:03 AM EST Inhaled Oxygen Concentration - - Weight 77.8 kg (171 lb 8.3 oz) 07/10/2023 10:03 AM EST Height 160 cm (5' 3 ) 07/10/2023 10:03 AM EST Body Mass Index 30.38 07/10/2023 10:03 AM EST documented in this encounter Medications at Time of Discharge aspirin 81 MG chewable tablet Chew 1 tablet (81 mg) 1 (one) time each day. ergocalciferol (Vitamin D-2) 1.25 MG (42198 UT) capsule Take 1 capsule (50,000 Units) [...] * Addendum Note - Carlene Smith - 07/10/2023 10:00 AM ESTEncounter addended by: Carlene Smith on: 08/21/2023 3:49 PM Actions taken: Charge Capture section accepted documented in this encounter Plan of Treatment Upcoming Encounters Date Type Department Care Team (Late st Contact Info) Description 08/05/2024 8:00 AM EST Office Visit [facility] [address] [place] [address] Penelope Carmona MD [address] [place] [address] 08/05/2024 9:30 AM EST Appointment [facility] 1 [address] [place] [address] 02/26/2025 9:30 AM EDT Appointment [facility] [address] [place] [address] 02/26/2025 10:30 AM EDT Office Visit [facility] [address] [facility], [address]nd [place] [address] Berenice Resendez, BALER OPERATOR 800 [facility] [address] [place] [address] documented as of this encounter [...] Specific administration requirements refer to [id number]., On 07/10/23 at 1115, For 1 dose, NS 100 mLIndications:Carcinoma of fallopian tube, unspecified laterality (CMS/HCC) New Bag 07/10/2023 11:40 AM EST 1,200 mg 356 mL/hr documented in this encounter Additional Health Concerns Assessment Noted Time A fall risk assessment has been complete d for the patient 07/10/2023 10:01 AM EST A Body Mass Index follow-up plan has been documented for the patient 08/19/2022 9:30 AM EST documented as of this encounter Care Teams Director Product Management Relationship Specialty Start Date End Date Flaquita Dorsey DO [address] [place] [address] PCP - General 12/14/21 Aliyah Valencia MD [address] [place] [address] Referring Physician 03/10/21 Conrado Iqbal MD [address] [place] [address] Service Attending Cardiology 08/19/22 documented as of this encounter
--- OUTSIDE RECORDS SUMMARY | 2024-07-10 11:57 | XMS_ITS | Encounter Summary ---
Author Organization [facility] Address [address] [place] [address] Care Team Providers Care Supplier Quality Name Role Phone Aliyah Valencia MD Unavailable [phone] Flaquita Dorsey DO Primary Care Provider [phone] Conrado Iqbal MD Unavailable Encounter Details Date Type Department Care Team (Late st Contact Info) Description 03/14/2023 Telephone [facility] 800 [facility] [address] [place] [address] Sadaf Perea, RN [facility] Social History Tobacco Use Types Packs/Day Years Used Date Smoking Tobacco: Former Cigarettes 0.5 22 1 976 - 1998 Smokeless Tobacco: Former Alcohol Use Standard Drinks/Week Comments Not Currently 0 (1 standard drink = 0.6 oz pur e alcohol) PHQ-2 Answer Date Recorded Patient Health Questionnaire-2 Score 0 01/09/2023 Comments No Sex and Gender Information Value Date Recorded Sex Assigned at Not on file Legal Sex Female 8:51 PM EDT Gender Identity Not on file Sexual Orientation Not on file documented as of this encounter Miscellaneous Notes * Telephone Encounter - Sadaf Perea LPN - 03/14/2023 8:51 AM EDT Attempted to contact pt regarding new chemo appointment/MD date. Pt did not answer, left VM. Will attempt to call again by end of day. Sadaf Perea LPN documented in this encounter Plan of Treatment Upcoming Encounters Date Type Department Care Team (Late st Contact Info) Description 08/05/2024 8:00 AM EST Office Visit [facility] 800 [facility] [address] [place] [address] Penelope Carmona MD 800 [facility] [address] [facility] [address] [place] [address] 08/05/2024 9:30 AM EST Appointment [facility] 1 [address] [place] [address] 02/26/2025 9:30 AM EDT Appointment [facility] [address] [facility] [address] [place] [address] 02/26/2025 10:30 AM EDT Office Visit [facility] [address] [facility], [address] [place] [address] Berenice Resendez D, RABBLE FURNACE TENDER 800 [facility] [address] [facility] [address] [place] [address] documented as of this encounter Visit Diagnoses Not on filedocumented in this encounter Additional Health Concerns Assessment Noted Time A fall risk assessment has been complete d for the patient 01/09/2023 10:06 AM EDT A Body Mass Index follow-up plan has been documented for the patient 08/19/2022 9:30 AM EST documented as of this encounter Care Teams Supplier Quality Relationship Specialty Start Date End Date Flaquita Dorsey DO [address] [place], [place] [id number] PCP - General 12/14/21 Aliyah Valencia MD [address] [place], [place] [address] Referring Physician 03/10/21 Conrado Iqbal MD [address] [place] [address] Service Attending Cardiology 08/19/22 documented as of this encounter
--- OUTSIDE RECORDS SUMMARY | 2024-07-10 11:57 | XMS_ITS | Encounter Summary ---
Author Organization Healthcare Address [address] [place], [place] [id number] Care Team Providers Care Hole Digger Operator Name Role Phone Aliyah Valencia MD Unavailable [phone] Flaquita Dorsey DO Primary Care Provider [phone] Conrado Iqbal MD Unavailable Reason for Visit * Reason Comments Chemotherapy Encounter Details Date Type Department Care Team ([facility] st Contact Info) Description 05/08/2023 1:00 PM EDT Office Visit [facility] Gyne[facility] [address] [facility] [address] [place] [id number] Penelope Carmona MD [address] [facility] [address] [facility] [address] [place] [address] Carcinoma of fallopian tube, unspecified laterality (CMS/HCC) (Primary Dx); Encounter for antineoplastic chemotherapy; Vaginal bleeding; Diarrhea, unspecified type Social History Tobacco Use Types Packs/Day Years Used Date Smoking Tobacco: Former Cigarettes 0.5 22 1 976 - 1998 Smokeless Tobacco: Former Tobacco Cessation:Counseling Given: Not Answered Alcohol Use Standard Drinks/Week Comments Not Currently 0 (1 standard drink = 0.6 oz pur e alcohol) PHQ-2 Answer Date Recorded Patient Health Questionnaire-2 Score 0 05/08/2023 Comments No Sex and Gender Information Value Date Recorded Sex Assigned at Not on file Legal Sex Female 8:51 PM EDT Gender Identity Not on file Sexual Orientation Not on file documented as of this encounter Last Filed Vital Signs Vital Sign Reading Time Taken Comments Blood Pressure 115/76 05/08/2023 1:02 PM EDT Pulse 105 05/08/2023 1:02 PM EDT Temperature 37.1 ??C (98.8 ??F) 05/08/2023 1:02 PM ED T Respiratory Rate 18 05/08/2023 1:02 PM EDT Oxygen Saturation 93% 05/08/2023 1:02 PM EDT Inhaled Oxygen Concentration - - Weight 77.8 kg (171 lb 8.3 oz) 05/08/2023 1:02 P M EDT Height 160 cm (5' 3 ) 05/08/2023 1:02 PM EDT Body Mass Index 30.38 05/08/2023 1:02 PM EDT documented in this encounter Miscellaneous Notes * Progress Notes - Penelope Carmona MD - 05/08/2023 1:00 PM EDT Primary Care Provider: Flaquita [...] were negative for metastatic disease. ER and ND were strongly positive and HER-2 was negative. [...] ER positive in 90% of the cells, ND positive in 95% of cells andHER-2 negative by IHC at 0. On 10/04/2016 she underwent a left needle localized lumpectomy. [place] lymph node biopsy was not performed as [...] vagina). Initiated neoadjuvant chemo with carbo/Taxol per CONSULTING APPLICATION ENGINEER followed by BSO/Omentectomy and adjuvant Carbotaxol. Recurrence in March 2019. Treated with carbo initially followed by Olaparib. 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 She is currently off of therapy. She follows with Dr. Hutchins in [facility]. 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 Recurrence - First recurrence, sisseton-w[place] sensitive - CT 04/10/19 with 3 cmlesion at cuff - Ca125 12 (from 8) - MTB discussion: recommend trial if progression on sisseton-wahpet[place] regimen or consider Parp for RAD 51 [...] ccy for choledocolithiasis 2019 (SGB) - Ca125: 41-4-0-7-7-9-8 - Started Parp inhibitor 09/2019 - Dose [...] 7.49 () 06/30/2021 Recurrence - Third recurrence, sisseton-wahpeton sensitive - CT 06/30/2021 shows vaginal cuff [...] disease seen 04/11/2022 Recurrence - Fourth recurrence, sisseton-wahpeton resistant - CT 04/11/2022 with increase in [...] Chemotherapy - Avastin started 03/20/2023 - Ca125 7.38 Interval updates to history: Oncologic treatment history as described above reviewed today as well as PMH/PSH/Meds/All/SH/FH, with updates made as appropriate. Patient is here today for cycle 3 of Dana. She reports diarrhea today - has had intermittent episodes like this before. Does not think it wilson virus. No fever. No sick contacts. No N/V. Also had one of her chest discomfort episodes last week - with associated nausea and diaphoresis. Now resolved. Went to ED at time and was told she did not have a TN. No GRAJEDA's. No abdominal pain. VB almost fully resolved. PMH: h/o breast cancer x2, ?cervical cancer, [...] years ago, no drugs, retired, lives in [place]. FamHx: Father-prostate, MGma-colon. ROS: 14 pt ROS performed with pertinent positives and negatives as noted in HPI. ROS otherwise negative Objective Physical Exam: Vital Signs for this encounter: BSA: 1.86 meters squared Visit Vitals BP 115/76 (BP Location: Right arm, Patient Position: Sitting, BP Cuff Size: Adult long) Pulse 105 Temp 37.1 ??C (98.8 ??F) (Oral) Resp 18 Ht 1.6 m (5' 3 ) Wt 77.8 kg (171 lb 8.3 oz) LMP 11/17/1981 (Approximate) SpO2 93% BMI 30.38 kg/m?? OB Status Hysterectomy Smoking Status Former [...] soft. Tenderness: There is no abdominal tenderness. Genitourinary: Comments: Declined exam today Musculoskeletal: General: No swelling. Skin: General: Skin is warm and dry. Coloration: Skin is not jaundiced. Findings: No bruising. Neurological: Mental Status: She is alert and oriented to person, place, and time. Mental status is at baseline. Psychiatric: Mood and Affect: Mood normal. Behavior: Behavior normal. Thought Content: Thought content normal. Judgment: Judgment normal. Performance Status: Asymptomatic PS= 0 Results: CBC WBC 4.81 Hgb 12.1 PLT 226 HCT 36.8 Lab Results Component Value Date NEUTROABS 3.56 03/13/2023 BASIC METABOLIC PANEL Na 137 Cl 99 BUN 19 Gluc 136 K 3.7 Co2 25 Creat 0.78 LIVER FUNCTION TESTING Tot Prot 6.8 AST 17 Tot bili 0.3 ALT 9 Alkphos 53 Ca 8.9 Mg 1.4 Phos No results found for requested labs within last 365 days. === 03/13/23 === CT ABDOMEN PELVIS W IV CONTRAST Addendum 03/13/2023 4:40 PM Addendum: ADDENDUM: Addendum to add impression #3: 3. Slight interval increase in size of the heterogeneously enhancing right upper pole renal lesion measuring 15 mm, previously 12 mm. Drafted by Bhavani Castillo MD on 03/13/2023 4:39 PM Final report signed by Bhavani Castillo MD on 03/13/2023 4:40 PM - Narrative - CLINICAL INDICATION: Uterine/cervical cancer, surveillance TECHNIQUE: Multiple axial CT images were obtained from thoracic inlet through pubic symphysis following administration of IV contrast, Omnipaque 300, 100 mL. Reformatted images of the abdomen and pelvis in the coronal and sagittal planes were generated from the axial data set to facilitate diagnostic accuracy. Total DLP (Dose-Length Product): 729.61 mGy.cm. Please note: The reported value represents the total of one or more individual components during the CT acquisition on this date and at this time, and as such, the same value may appear in more than one CT report depending on the interpreting/reporting physicians. COMPARISON: CT chest, abdomen and pelvis November 02, 2022 FINDINGS: Chest: Lymph Nodes and Mediastinum: No lymphadenopathy by CT size criteria. Calcified right hilar lymph nodes. No mediastinal mass lesions. Similar appearance of the thyroid lobes with tiny calcifications in the left lobe. Cardiovascular: The heart is normal in caliber. Aortic annular calcifications. Left anterior descending artery calcifications. Thoracic great vessels are patent. Mild calcific atherosclerotic plaque involving the thoracic aorta. A right chest wall ilan catheter is in place and terminates at the cavoatrial junction. Lungs and Pleura: Central airways are patent. No significant change in a 5 mm right upper lobe pulmonary nodule (series 4, image 109). Similar simple cyst in the left lower lobe. Linear subsegmental atelectasis versus scarring involving bilateral lower lobes left upper and right middle lobes. No pleural effusions or suspicious thickening. Musculoskeletal and Body Wall: No clearly aggressive bone lesions. Similar tiny round sclerotic lesion in the manubrium (series 603, image 121). Multilevel spondylotic changes of the spine. Abdomen/Pelvis: Solid Abdominal Organs: Unremarkable liver. Prior cholecystectomy. There is similar mild intrahepatic biliary ductal dilation. Similar extrahepatic biliary ductal dilation, measuring up to 10 mm, likely related to prior cholecystectomy. 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 Slight interval increase in size of the heterogeneously enhancing right upper pole lesion measuring 15 mm, previously 12 mm (series 503, image 123). Additional too small to characterize low-attenuation lesions in the bilateral kidneys similar to prior study. No hydronephrosis. Unremarkable spleen. 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 No significant change in the right indeterminate 18 mm adrenal nodule (series 3, image 73). Suspicious adrenal findings. No suspicious pancreatic findings. GI Tract/Mesentery/Peritoneum: Small hiatal hernia. The large and small bowel appear normal in caliber. Large narrowneck duodenal diverticulum is again noted unchanged (series 503, image 75). Similarventral abdominal wall hernia containing nonobstructed large bowel loops. No evidence of inflammatory change. No obstruction. The appendix is not definitively visualized, however no secondary signs of acute appendicitis. No suspicious peritoneal/mesenteric findings.. Pelvic Viscera: Postsurgical changes from prior hysterectomy. There is been interval development ofa mildly peripherally enhancing lesion measuring 4.3 x 2.6 cm along the superior vaginal cuff (series 3, image 257). Lymph Nodes/Vasculature: No lymphadenopathy by CT size criteria, however there is a new rounded somewhat enhancing right internal iliac lymph node measuring 9 mm in short axis (series 3, image 226)..The aortoiliac vasculature is patent and normal in caliber. Mild calcific atherosclerotic plaque involving the abdominal aorta and common iliac arteries. Free Fluid:No ascites Musculoskeletal and Body Wall:No aggressive or suspicious findings. Similar appearance of a nonspecific sclerotic focus in T12 vertebral body. Grade 1 anterolisthesis of L4 on L5, unchanged. - Impression - Chest: No evidence of disease progression. Similar 5 mm right upper lobe pulmonary nodule. Abdomen/Pelvis: 1.Postsurgical changes from prior hysterectomy. Interval development of a peripherally enhancing lesion along the superior vaginal cuff concerning for local recurrence. 2.Subcentimeter right internal iliac lymph notes with suspicious feature and enhancement concerningfor disease involvement. CRITICAL RESULT: No. COMMUNICATION: Per this written report. By electronically signing this report, I, the attending physician, attest that I have personally reviewed the images/data for the above examination(s) and agree with the final edited report. 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 - At visit 08/2022: Patient had additional CP episode and heart cath subsequently performed. No severe disease noted and manager house reports ok to continue Dana. However, also [...] Dana back and continue oral Cytoxan. - Cycle 3 of Dana today. Continue Cytoxan. Cyclic Ca125 monitoring with imaging q 3-[address] after cycle 4. Problem 2: Encounter for chemotherapy Assessment and plan 2: - Proceed with cycle 3 of Bevacizumab 15 mg/kg today. Plan q [...] cuff - Bleeding resolved after starting Dana/Cytoxan - CT after 4 cycles shows resolution of vaginal mass - Now bleeding recurrent and mass recurrent on CT - Declined exam today but per patient bleeding is light. - Plan to add back Dana and monitor closely - Now nearly resolved after 2 cycles of Dana. Monitor. Problem 4: History [...] cards at - Seen by cardiology at [facility] and acute workup negative but diagnostic cath [...] the risks. - 1 episode chest pain last week - ED workup negative for TN - Continue to monitor closely Problem 7: Obesity Assessment and plan 7: - Body mass index is 30.38 kg/m??. 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 Problem 9: Diarrhea Assessment and plan 9: - Has had some intermittent episodes like this is in the past - Mildly tachycardic - will give 500 ml bolus with chemo today - If fails to resolve in 1-2 days with pursue further workup Summary of time spent in team based care today includes the following activities performed by myself: review of prior documentation in preparation for visit, review of labs and any other test results, obtaining and reviewing medical history, appropriate focused physical exam, discussion of exam and/or test results, discussion of plan of care, lab orders, phlebotomy, and documentation Penelope Dodson MD [facility] [address] [place] [address] [facility] [address] Dept: [phone] Dept Loc: [phone] * Progress Notes - Serena Xiong, PharmD - 05/08/2023 1:00 PM EDT Pharmacy Hematology/Oncology Treatment Plan [...] from 05/28/2001: pT1c, pN0, cM0, G2, ER+, ND+, HER2: Unknown - Signed by Cara Greene MD on 06/19/2021 - Pathologic stage from 10/05/2016: Stage Unknown (rpT1c, pNX, cM0, G2, ER+, ND+, HER2-) - Signed by Cara Greene MD on 06/19/2021 Study Patient: No Treatment Protocol: Bevacizumab IV every 21 days + continuous PO cytoxan Treatment Plan reviewed for: [x] Follow-Up Clinical Review Cycle 3 Day 1 [x] Follow-Up Clinical Review for Continuous Oral Therapy Interval History: Patient's CT scan from 03/13 demonstrated slight progression while on cytoxan PO. Re-initiated bevacizumab IV maintenance therapy every 21 days in addition to continuous cytoxan therapy due to prior response and cardiac monitoring WNL. Patient reports tolerating therapy well overall. Reports diarrhea the last few days. Will continue to monitor. Dosing Wt: 84 kg Today's Wt: Wt Readings from Last 1 Encounters: 05/08/23 77.8 kg (171 lb 8.3 oz) Dosing Ht: 160 cm Dosing BSA: 1.88 m2 Recent Labs: OSH labs reviewed from 04/05/23 were appropriate for treatment: WBC: 3.8 10^3/uL ANC: 2.4 10^3/uL HGB: 12.9 g/dL HCT: 40.8 % PLT: 247 10^3/uL Glucose: mg/dL Na: 140 mmol/L K: 4.0 mmol/L Ca: 9.1 mg/dL AST: 42 U/L ALT: 49 U/L ALKP: 83 U/L Tbili: 0.4 mg/dL SCr: 0.8 mg/dL Lab Results Component Value Date WBC 5.28 05/08/2023 HGB 13.5 05/08/2023 HCT 40.3 05/08/2023 MCV 101 (H) 05/08/2023 PLT 217 05/08/2023 Lab Results Component Value Date GLUCOSE 104 (H) 05/08/2023 CALCIUM 9.6 05/08/2023 NA 136 05/08/2023 K 3.8 05/08/2023 CO2 23 05/08/2023 CL 100 05/08/2023 BUN 25 (H) 05/08/2023 CREATININE 0.94 05/08/2023 Lab Results Component Value Date ALT 23 05/08/2023 AST 23 05/08/2023 ALKPHOS 69 05/08/2023 BILITOT 0.4 05/08/2023 Lab Results Component Value Date NEUTROABS 4.10 05/08/2023 Lab Results Component Value Date MG 1.4 (L) 01/09/2023 No results found for: TSH Lab Results Component Value Date URINEPRO Negative 05/08/2023 Vitals: Vitals: 05/08/23 1302 BP: 115/76 Pulse: 105 Resp: 18 Temp: 37.1 ??C (98.8 ??F) SpO2: 93% Other Relevant Monitoring: None Treatment Plan: Cyclophosphamide 50 mg daily Bevacizumab 15 mg/kg (1200 mg) IV D1 Every 21 days [x] No dose adjustments made Current Treatment Plan History: Oral Cyclophosphamide 50 mg daily (08/31/22 - present) Bevacizumab Cycle 1: 03/20/23 Cycle 2: 04/10/23 Cycle 3: 05/08/23 Prior Chemotherapy History: hormone therapy for prior [...] prescribed to: [facility] Refills will be due: 05/2023 Adding 1/2 L fluids to infusion today. Patient instructed to contact clinic if persists with PRN Imodium usage in the next 24 to 48 hours. Patient will return to clinic in 3 weeks. Will follow-up at that time. Pharmacist Attestation: Serena Xiong PharmD, [facility] Hematology/Oncology Clinical Pharmacist documented in this encounter Plan of Treatment Upcoming Encounters Date Type Department Care Team ([facility] st Contact Info) Description 08/05/2024 8:00 AM EST Office Visit [facility] Gynecology [address] [facility] [address] [place] [phone] Penelope Carmona MD [address] [facility] [address] [facility] [address] [place] [address] 08/05/2024 9:30 AM EST Appointment [facility] Infusion Clinic [address] [place] [phone] 02/26/2025 9:30 AM EDT Appointment [facility] Breast Care [facility] [place] [address] [address] [facility] [address] [place] [address] 02/26/2025 10:30 AM EDT Office Visit [facility] Breast Care Center [address] [facility] [place] [phone] Berenice Resendez, ENGINEER SYSTEMS [address] [facility] [address] [facility] [address] [place] [address] documented as of this encounter Procedures Procedure Name Priority Date/Time Associated Diagnosis Comments URINALYSIS, DIPSTICK Routine 05/08/2023 2:37 PM EDT Carcinoma of fallopian tube, unspecified laterality (CMS/HCC) CBC WITH AUTO DIFFERENTIAL Routine 05/08/2023 1:20 PM EDT Carcinoma of fallopian tube, unspecified laterality (CMS/HCC) CA 125 Routine 05/08/2023 1:20 PM EDT Carcinoma of fallopian tube, unspecified laterality (CMS/HCC) COMPREHENSIVE METABOLIC PANEL, PLASMA Routine 05/08/2023 1:20 PM EDT Carcinoma of fallopian tube, unspecified laterality (CMS/HCC) documented in this encounter Results * (ABNORMAL) Urinalysis, manual only (05/08/2023 2:37 PM EDT) Color, Urine Yellow LAB URINALYSIS - AUTOMATED METHOD 05/08/2023 3:02 PM EDT [facility] Clarity, Urine Clear LAB URINALYSIS - AUTOMATED METHOD 05/08/2023 3:02 PM EDT [facility] Spec [place], Urine 1.017 <=1.005 to >=1.030 LAB URINALYSIS - AUTOMATED METHOD 05/08/2023 3:02 PM EDT [facility] pH, Urine 5.5 4.5 to 8 LAB URINALYSIS - AUTOMATED METHOD 05/08/2023 3:02 PM EDT [facility] Protein, Urine Negative Negative mg/dL LAB URINALYSIS - AUTOMATED METHOD 05/08/2023 3:02 PM EDT [facility] Glucose, Urine Negative Negative mg/dL LAB URINALYSIS - AUTOMATED METHOD 05/08/2023 3:02 PM EDT [facility] Ketones, Urine Negative Negative mg/dL LAB URINALYSIS - AUTOMATED METHOD 05/08/2023 3:02 PM EDT [facility] Blood, Urine Negative Negative LAB URINALYSIS - AUTOMATED METHOD 05/08/2023 3:02 PM EDT [facility] Bilirubin, Urine Negative Negative LAB URINALYSIS - AUTOMATED METHOD 05/08/2023 3:02 PM EDT [facility] Urobilinogen, Urine 1.0 0.2 to 1.0 mg/dL LAB URINALYSIS - AUTOMATED METHOD 05/08/2023 3:02 PM EDT [facility] Leukocytes, Urine Small(A) Negative LAB URINALYSIS - AUTOMATED METHOD 05/08/2023 3:02 PM EDT [facility] Nitrite, Urine Negative Negative LAB URINALYSIS - AUTOMATED METHOD 05/08/2023 3:02 PM EDT [facility] Urine Urine specimen obtained by clean catch procedure / Unknown Non-blood Collection / Unknown 05/08/2023 2:37 PM EDT 05/08/2023 2:50 PM EDT Penelope Dodson MD LAB URINE ORDERABLES Final Result Performing Organization Address City/[facility]/ZIP Co de Phone Number [facility] [address] [place] [address] * CA 125 (05/08/2023 1:20 PM EDT) CA 125 7.51 <=38.00 U/mL 05/08/2023 2:35 PM EDT [facility] Blood Blood sample taken from central line / Unknown (Port) Long-term Catheter / Unknown 05/08/2023 1:20 PM EDT 05/08/2023 1:50 PM EDT Narrative [facility] - 05/08/2023 2:35 PM EDT Performed by Stephie electrochemiluminescent immunoassay. Results obtained with different test methods or kits cannot be used interchangeably. Penelope Dodson MD LAB BLOOD ORDERABLES Final Result Performing Organization Address City/[facility] Co de Phone Number [facility] [address] [place] [address] * (ABNORMAL) Comprehensive metabolic panel (05/08/2023 1:20 PM EDT) Glucose, Plasma 104(H) 74 - 99 mg/dL 05/08/2023 2:21 PM EDT [facility] BUN, Plasma 25(H) 8 - 23 mg/dL 05/08/2023 2:21 PM EDT [facility] Creatinine, Plasma 0.94 0.60 - 1.10 mg/dL 05/08/2023 2:21 PM EDT [facility] BUN/Creatinine Ratio 27 05/08/2023 2:21 PM EDT [facility] Sodium, Plasma 136 136 - 145 mmol/L 05/08/2023 2:21 PM EDT [facility] Potassium, Plasma 3.8 3.7 - 4.8 mmol/L 05/08/2023 2:21 PM EDT [facility] Chloride, Plasma 100 97 - 107 mmol/L 05/08/2023 2:21 PM EDT [facility] CO2, Plasma 23 22 - 29 mmol/L 05/08/2023 2:21 PM EDT [facility] Anion Gap 13 6 - 16 mmol/L 05/08/2023 2:21 PM EDT [facility] Total Calcium, Plasma 9.6 8.9 - 10.2 mg/dL 05/08/2023 2:21 PM EDT [facility] Total Protein 7.2 6.3 - 7.9 g/dL 05/08/2023 2:21 PM EDT [facility] Albumin, Plasma 4.2 3.5 - 5.2 g/dL 05/08/2023 2:21 PM EDT [facility] AST, Plasma 23 10 - 35 U/L 05/08/2023 2:21 PM EDT [facility] ALT, Plasma 23 10 - 35 U/L 05/08/2023 2:21 PM EDT [facility] Alkaline Phosphatase, Plasma 69 46 - 142 U/L 05/08/2023 2:21 PM EDT [facility] Total Bilirubin, Plasma 0.4 0.2 - 1.1 mg/dL 05/08/2023 2:21 PM EDT [facility] eGFRcr 62.6 mL/min/1.7 3m*2 05/08/2023 2:21 PM EDT [facility] Comment:Reported eGFRcr in m L/min/1.73m2 is based the CKD-EPI 2020 equation that does not use a race coefficient. Blood Blood sample taken from central line / Unknown (Port) Long-term Catheter / Unknown 05/08/2023 1:20 PM EDT 05/08/2023 1:50 PM EDT us Penelope Dodson MD LAB BLOOD ORDERABLES Final Result [facility] [address] [place] [address] * (ABNORMAL) CBC and differential (05/08/2023 1:20 PM EDT) [facility] Signature WBC Count 5.28 3.70 - 10.30 10*3/uL LAB HEMATOLOGY METHOD 05/08/2023 1:43 PM EDT [facility] RBC Count 3.99 3.90 - 5.20 10*6/uL LAB HEMATOLOGY METHOD 05/08/2023 1:43 PM EDT [facility] HGB 13.5 11.2 - 15.7 g/dL LAB HEMATOLOGY METHOD 05/08/2023 1:43 PM EDT [facility] HCT 40.3 34.0 - 45.0 % LAB HEMATOLOGY METHOD 05/08/2023 1:43 PM EDT [facility] Platelet Count 217 155 - 369 10*3/uL LAB HEMATOLOGY METHOD 05/08/2023 1:43 PM EDT [facility] MCV 101(H) 79 - 98 fL LAB HEMATOLOGY METHOD 05/08/2023 1:43 PM EDT [facility] MCH 33.8(H) 26.0 - 32.0 pg LAB HEMATOLOGY METHOD 05/08/2023 1:43 PM EDT [facility] MCHC 33.5 30.7 - 35.5 g/dL LAB HEMATOLOGY METHOD 05/08/2023 1:43 PM EDT [facility] RDW 14.8(H) 11.5 - 14.5 % LAB HEMATOLOGY METHOD 05/08/2023 1:43 PM EDT [facility] MPV 9.5 8.8 - 12.5 fL LAB HEMATOLOGY METHOD 05/08/2023 1:43 PM EDT [facility] nRBC 0.0 <=0.0 per 100 WBCs LAB HEMATOLOGY METHOD 05/08/2023 1:43 PM EDT [facility] Differential Type Automated LAB HEMATOLOGY METHOD 05/08/2023 1:43 PM EDT [facility] Neutrophils % 78.0 % LAB HEMATOLOGY METHOD 05/08/2023 1:43 PM EDT [facility] Lymphocytes % 11.0 % LAB HEMATOLOGY METHOD 05/08/2023 1:43 PM EDT [facility] Monocytes % 6.0 % LAB HEMATOLOGY METHOD 05/08/2023 1:43 PM EDT [facility] Eosinophils % 4.0 % LAB HEMATOLOGY METHOD 05/08/2023 1:43 PM EDT [facility] Basophils % 1.0 % LAB HEMATOLOGY METHOD 05/08/2023 1:43 PM EDT [facility] Immature Granulocytes % 0.0 % LAB HEMATOLOGY METHOD 05/08/2023 1:43 PM EDT [facility] Neutrophils Absolute 4.10 1.60 - 6.10 10*3/uL LAB HEMATOLOGY METHOD 05/08/2023 1:43 PM EDT [facility] Lymphocytes Absolute 0.57(L) 1.20 - 3.90 10*3/uL LAB HEMATOLOGY METHOD 05/08/2023 1:43 PM EDT [facility] Monocytes Absolute 0.33 0.30 - 0.90 10*3/uL LAB HEMATOLOGY METHOD 05/08/2023 1:43 PM EDT [facility] Eosinophils Absolute 0.23 0.00 - 0.50 10*3/uL LAB HEMATOLOGY METHOD 05/08/2023 1:43 PM EDT [facility] Basophils Absolute 0.03 0.00 - 0.10 10*3/uL LAB HEMATOLOGY METHOD 05/08/2023 1:43 PM EDT [facility] Immature Granulocytes Absolute 0.02 0.00 - 0.06 10*3/uL LAB HEMATOLOGY METHOD 05/08/2023 1:43 PM EDT [facility] Blood Blood sample taken from central line / Unknown (Port) Long-term Catheter / Unknown 05/08/2023 1:20 PM EDT 05/08/2023 1:41 PM EDT Narrative [facility] - 05/08/2023 1:43 PM EDT Therapeutic decision making should be based on absolute values, rather than percentages. Peenlope Dodson MD LAB BLOOD ORDERABLES Final Result [facility] [address] [place] [address] documented in this encounter Visit Diagnoses Diagnosis Carcinoma of fallopian tube, unspecified laterality (CMS/HCC)- Primary Encounter for antineoplastic chemotherapy Vaginal bleeding Other specified noninflammatory disorder of vagina Diarrhea, unspecified type documented in this encounter Additional Health Concerns Assessment Noted Time A fall risk assessment has been complete d for the patient 05/08/2023 1:57 PM EDT A Body Mass Index follow-up plan has been documented for the patient 08/19/2022 9:30 AM EST documented as of this encounter Care Teams Hole Digger Operator Relationship Specialty Start Date End Date Flaquita Dorsey DO [address] [place], [place] [id number] PCP - General 12/14/21 Aliyah Valencia MD [address] [place] [address] Referring Physician 03/10/21 Conrado Iqbal MD [address] [place] [address] Service Attending Cardiology 08/19/22 documented as of this encounter
--- OUTSIDE RECORDS SUMMARY | 2024-07-10 11:57 | XMS_ITS | Encounter Summary ---
Author Organization [facility] Address [facility] [place] [id number] Care Team Providers Care Production Hand Name Role Phone Aliyah Valencia MD Unavailable [phone] Flaquita Dorsey DO Primary Care Provider [phone] Conrado Iqbal MD Unavailable Reason for Visit * Episode Based Medications (Routine) - Authorized Specialty Diagnoses / Procedures Referred By Contac t Referred To Contact Diagnoses Carcinoma of fallopian tube, unspecified laterality (CMS/HCC) Procedures Bevacizumab Every 21 Days Penelope Carmona MD [address] [address] Phone: tel: fax: [facility] Infusion [facility] [address] [place] [address] Phone: tel: Referral ID Status Reason Start Date Expiration Date V isits Requested Visits Authorized [id number] Authorized 03/13/2023 09/11/2024 1 26 Encounter Details Date Type Department Care Team (Latest Contact Info) Description 05/08/2023 1:46 PM EDT - 05/08/2023 11:59 PM EDT Hospital Encounter [facility] [address] [place] [address] Carcinoma of fallopian tube, unspecified [...] Sign Reading Time Taken Comments Blood Pressure 112/65 05/08/2023 1:57 PM EDT Pulse 94 05/08/2023 1:57 PM EDT Temperature 36.7 ??C (98 ??F) 05/08/2023 1:57 PM EDT Respiratory Rate 16 05/08/2023 1:57 PM EDT Oxygen Saturation 94% 05/08/2023 1:57 PM EDT Inhaled Oxygen Concentration - - Weight 77.8 kg (171 lb 8.3 oz) 05/08/2023 1:57 P M EDT Height 160 cm (5' 3 ) 05/08/2023 1:57 PM EDT Body Mass Index 30.38 05/08/2023 1:57 PM EDT documented in this encounter Medications at Time of Discharge aspirin 81 MG chewable tablet Chew 1 tablet (81 mg) 1 (one) time each day. ergocalciferol (Vitamin D-2) 1.25 MG (25863 UT) capsule Take 1 capsule (50,000 Units) [...] (one) time each day. 30 capsule 2 03/14/2023 05/29/2023 Flaxseed, Linseed, (Flaxseed Oil) 1000 MG capsule Take 1 tablet by mouth 1 (one) time each day. 05/23/2024 gabapentin (Neurontin) 400 MG capsule Take 1 capsule (400 mg) by mouth 3 (three) times a day. 90 capsule 3 02/22/2023 08/23/2023 levothyroxine (Synthroid, Levoxyl) 75 MCG tablet Take 80 mcg by mouth 1 (one) time each day before breakfast. 06/19/2023 nitroglycerin (Nitrostat) 0.4 MG SL tablet every [...] (40 mg) by mouth every night. 05/23/2024 documented as of this encounter Plan of Treatment Upcoming Encounters Date Type Department Care Team (Late st Contact Info) Description 08/05/2024 8:00 AM EST Office Visit [facility] Gynecology [address] [facility] [address] [place] [phone] Penelope Carmona MD [address] [facility] [address] [facility] [address] [place] [address] 08/05/2024 9:30 AM EST Appointment [facility] [address] [place] [address] 02/26/2025 9:30 AM EDT Appointment [facility] Breast Care Center [facility] [place] [address] [address] [facility] [address] [place] [address] 02/26/2025 10:30 AM EDT Office Visit [facility] Breast Care Center [address] [facility] [place] [phone] Berenice Resendez, CAR CHANGER [address] [facility] [address] [facility] [address] [place] [address] documented as of this encounter Visit Diagnoses [...] Specific administration requirements refer to [id number]., On Mon05/08/23 at 1545, For 1 dose, NS 100 mLIndications:Carcinoma of fallopian tube, unspecified laterality (CMS/HCC) New Bag 05/08/2023 3:44 PM EDT 1,200 mg 356 mL/hr sodium chloride 0.9 % bolus 500 mL 500 mL, Intravenous, Once, 1 dose, On 05/08/23 at 1545, Administer over 30 Minutes, RoutineIndications:Carcinoma of fallopian tube, unspecified laterality (CMS/HCC) New Bag 05/08/2023 3:22 PM EDT 500 mL 1000 mL/hr documented in this encounter Additional Health Concerns Assessment Noted Time A fall risk assessment has been complete d for the patient 05/08/2023 1:57 PM EDT A Body Mass Index follow-up plan has been documented for the patient 08/19/2022 9:30 AM EST documented as of this encounter Care Teams Production Hand Relationship Specialty Start Date End Date Flaquita Dorsey DO [address] [place] [address] PCP - General 12/14/21 Aliyah Valencia MD [address] [place] [address] Referring Physician 03/10/21 Conrado Iqbal MD [address] [place] [phone] Service Attending Cardiology 08/19/22 documented as of this encounter
--- OUTSIDE RECORDS SUMMARY | 2024-07-10 11:57 | XMS_ITS | Encounter Summary ---
Author Organization Healthcare Address [address] [place], [place] [id number] Care Team Providers Care Lime Boiler Name Role Phone Aliyah Valencia MD Unavailable [phone] Flaquita Dorsey DO Primary Care Provider [phone] Conrado Iqbal MD Unavailable Reason for Visit * Reason Comments Follow-up Encounter Details Date Type Department Care Team (Late st Contact Info) Description 03/13/2023 3:00 PM EDT Office Visit [facility] [address] [place] [phone] Penelope Carmona MD [address] [facility] [address] [facility] [address] [place] [address] Carcinoma of fallopian tube, unspecified laterality (CMS/HCC) (Primary Dx); Vaginal bleeding; Obesity (BMI 30-39.9); Neuropathy Social [...] Sign Reading Time Taken Comments Blood Pressure 77/51 03/13/2023 2:37 PM EDT Pulse 99 03/13/2023 2:37 PM EDT Temperature 36.4 ??C (97.5 ??F) 03/13/2023 2:37 PM ED T Respiratory Rate 14 03/13/2023 2:37 PM EDT Oxygen Saturation - - Inhaled Oxygen Concentration - - Weight 79.1 kg (174 lb 6.1 oz) 03/13/2023 2:37 P M EDT Height 160 cm (5' 3 ) 03/13/2023 2:37 PM EDT Body Mass Index 30.89 03/13/2023 2:37 PM EDT documented in this encounter Miscellaneous Notes * Progress Notes - Penelope Carmona MD - 03/13/2023 3:00 PM EDT Primary Care Provider: Flaquita Dorsey DO History of Present Illness: Chief complaint: 77 yo female here for monitoring 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 Oncologic history [...] were negative for metastatic disease. ER and DE were strongly positive and HER-2 was negative. [...] ER positive in 90% of the cells, DE positive in 95% of cells andHER-2 negative by IHC at 0. On 10/04/2016 she underwent a left needle localized lumpectomy. Wood lymph node biopsy was not performed as [...] vagina). Initiated neoadjuvant chemo with carbo/Taxol per CUTTER OPERATOR ASBESTOS SHINGLE followed by BSO/Omentectomy and adjuvant Carbotaxol. Recurrence in March 2019. Treated with carbo initially followed by Olaparib. 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 She is currently off of therapy. She follows with Dr. Hutchins in [facility]. 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 Recurrence - First recurrence, [place] sensitive - CT 04/10/19 with 3 cmlesion at cuff - Ca125 12 (from 8) - MTB discussion: recommend trial if progression on [place] regimen or consider Parp for RAD 51 [...] ccy for choledocolithiasis 2019 (SGB) - Ca125: 05-9-5-7-7-9-8 - Started Parp inhibitor 09/2019 - Dose [...] 7.49 () 06/30/2021 Recurrence - Third recurrence, [place] sensitive - CT 06/30/2021 shows vaginal cuff [...] disease seen 04/11/2022 Recurrence - Fourth recurrence, [place] resistant - CT 04/11/2022 with increase in [...] lymph node 03/20/2023 - Chemotherapy - Avastin to start 03/20/2023 Interval updates to history: Oncologic treatment history as described above reviewed today as well as PMH/PSH/Meds/All/SH/FH, with updates made as appropriate. Patient is here today to monitor toxicity of oral Cytoxan. She reports that at least for the past 5 weeks or so she has been having vaginal bleeding again. This is mostly light. Her appetite has been ok. No N/V. Fatigues easily. Has pink eye currently. Last chest pain episode was in November. PMH: h/o breast cancer x2, ?cervical cancer, [...] years ago, no drugs, retired, lives in [place]. FamHx: Father-prostate, MGma-colon. ROS: 14 pt ROS performed with pertinent positives and negatives as noted in HPI. ROS otherwise negative Objective Physical Exam: Vital Signs for this encounter: BSA: 1.88 meters squared Visit Vitals BP (!) 77/51 Pulse 99 Temp 36.4 ??C (97.5 ??F) Resp 14 Ht 1.6 m (5' 3 ) Wt 79.1 kg (174 lb 6.1 oz) LMP 11/17/1981 (Approximate) BMI 30.89 kg/m?? OB Status Hysterectomy Smoking Status Former BSA 1.87 m?? Physical Exam Vitals and nursing note [...] abdominal tenderness. Genitourinary: Comments: Declined exam today Skin: General: Skin is warm and dry. [...] followed by radiation for additional recurrence - [place] sensitive recurrence diagnosed 06/2021. - Completed 6 cycles of single agent Carbo 10/2021. - CT OSH 12/2021 JARED. - CT 04/11/2022 shows progression at cuff with no other disease - Caris testing requested - [place] resistant (5 month interval). Will not use Carbo again. Offered traditional chemo (Gemzar, DD Taxol, Doxil) vs Dana/oral Cytoxan. Elects for Dana/oral cytoxan - Held fourth cycle of Dana due to incomplete chest pain workup. Continued oral cytoxan. - Referred to cardio-oncology for second opinion on need for heart cath to safely continue Dana. Sawher 06/27/2022 and CCTA recommended but ok to continue Dana. - CT after 4 cycles showed interval resolution of vaginal mass and no further disease. - At visit 08/2022: Patient had additional CP episode and heart cath performed. No severe disease noted and investigation division captain reports ok to continue Dana. However, also having random episodes of numbness inlimbs (separate from baseline neuropathy). Can not rule out this would be a TIA vs other etiology. Previously discussed at length with patient and why there is some hesitancy to continue VEG-F inhibitor with these symptoms. Given complete response on imaging, risks may outweigh benefits to continueBev. Patient elected to stop Dana. - Continued oral Cytoxan - CT 11/02/2022 JARED. - CT Images from today (03/13/2023) reviewed and discussed with patient. Consistent with recurrence at vaginal cuff and with suspicious lymph node. This is corroborated with bleeding symptoms althoughshe declined vaginal exam today to confirm grossly. - Discussed options and would like to try adding back Dana as first line. Will add Dana back and continue oral Cytoxan. Cyclic Ca125 monitoring with imaging q 3-4 cycles. Problem 2: Vaginal bleeding Assessment and plan 2: - Likely due to mass at cuff - Bleeding resolved after starting Dana/Cytoxan - CT after 4 cycles shows resolution of vaginal mass - Now bleeding recurrent and mass recurrent on CT - Declined exam today but per patient bleeding is light. - Plan to add back Dana and monitor closely Problem 3: Cervical cancer Assessment and plan 3: - Distant history, intermediate survivor. Problem 4: History of left breast cancer x 2 Assessment and plan 4: - s/p anastrazole. No current signs of disease. Follows up with breast clinic (recent visit J[facility]) Problem 5: Neuropathy Assessment and plan 5: - Treatment related. - Will not use Taxol again. - Gabapentin 400 mg TID, continue Problem 6: h/o syncope episodes and carotid stenosis, now with chest tightness over 2021, in July 2022, 10/28/2022, 12/15/2022 Assessment and plan 6: - Has been followed in past with cards at - Seen by cardiology at [facility] and acute workup negative but [...] interventions and is accepting of the risks. Problem 7: Obesity Assessment and plan 7: - Body mass index is 30.89 kg/m??. - Affects all aspects of care Summary of time spent in team based [...] care, lab orders, phlebotomy, chemo related decision making/informed consent/treatment plan management MD ADRIANA Arana [facility] GYNECOLOGY [address] [facility] [address] [place] [address] Dept: [phone] Dept Loc: [phone] * Progress Notes - Sil Tiwari - 03/13/2023 3:00 PM EDT Pharmacy Hematology/Oncology Treatment Plan [...] from 05/28/2001: pT1c, pN0, cM0, G2, ER+, DE+, HER2: Unknown - Signed by Cara Greene MD on 06/19/2021 - Pathologic stage from 10/05/2016: Stage Unknown (rpT1c, pNX, cM0, G2, ER+, DE+, HER2-) - Signed by Cara Greene MD on 06/19/2021 Study Patient: No Treatment Protocol: Bevacizumab IV every 21 days + continuous PO cytoxan Treatment Plan reviewed for: [x] Follow-Up Clinical Review Cycle 1 Day 1 [x] Follow-Up Clinical Review for Continuous Oral Therapy Interval History: 03/13/23: Patient's CT scan from 03/13 demonstrated slight progression while on cytoxan PO. Will re-initiate bevacizumab IV maintenance therapy every 21 days in addition to continuous cytoxan therapy due to prior response and cardiac monitoring WNL. Dosing Wt: 84 kg Today's Wt: Wt Readings from Last 1 Encounters: 03/13/23 79.1 kg (174 lb 6.1 oz) Dosing Ht: 160 cm Dosing BSA: 1.88 m2 Recent Labs: Lab Results Component Value Date WBC 4.88 01/09/2023 HGB 12.4 01/09/2023 HCT 37.6 01/09/2023 MCV 105 (H) 01/09/2023 PLT 233 01/09/2023 Lab Results Component Value Date GLUCOSE 85 01/09/2023 CALCIUM 9.8 01/09/2023 NA 135 (L) 01/09/2023 K 3.8 01/09/2023 CO2 25 01/09/2023 CL 99 01/09/2023 BUN 23 01/09/2023 CREATININE 0.77 01/09/2023 Lab Results Component Value Date ALT 12 01/09/2023 AST 16 01/09/2023 ALKPHOS 71 01/09/2023 BILITOT 0.4 01/09/2023 Lab Results Component Value Date NEUTROABS 3.30 01/09/2023 Lab Results Component Value Date MG 1.4 (L) 01/09/2023 No results found for: TSH Lab Results Component Value Date URINEPRO Negative 11/02/2022 Vitals: Vitals: 03/13/23 1437 BP: (!) 77/51 Pulse: 99 Resp: 14 Temp: 36.4 ??C (97.5 ??F) Other Relevant Monitorin08/05/22 ECHO: LVEF 53% Treatment Plan: Cyclophosphamide 50 mg daily Bevacizumab 15 mg/kg (1200 mg) IV D1 Every 21 days [x] No dose adjustments made Current Treatment Plan History: Oral Cyclophosphamide 50 mg daily (08/31/22 - present) Bevacizumab Cycle 1: 03/20/23 Prior Chemotherapy History: hormone therapy for prior [...] to: [facility] Refills will be due: 05/2023 Patient will return to clinic in 3 weeks. Will follow-up at that time. Pharmacist Attestation: Sil Tiwari, PGY1 Dip Filler Closer On Cosigned by Serena Xiong PharmD at 03/14/2023 8:37 AM EDT Associated attestation - Serena Xiong PharmD - 03/14/2023 8:37 AM EDT I saw and evaluated the patient with the resident/fellow. I discussed the case with the resident/fellow and agree with the findings and plan as documented. Serena Xiong, WarrenD, OP Hematology/Oncology Clinical Pharmacist documented in this encounter Plan of Treatment Upcoming Encounters Date Type Department Care Team (Late st Contact Info) Description 08/05/2024 8:00 AM EST Office Visit [facility] Gynecology [address] [facility] [address] [place] [address] Penelope Carmona MD [address] [facility] [address] [facility] [address] [place] [address] 08/05/2024 9:30 AM EST Appointment [facility] Infusion Clinic [address] [place] [phone] 02/26/2025 9:30 AM EDT Appointment [facility] Breast Care [facility] [address] [facility] [address] [place] [address] 02/26/2025 10:30 AM EDT Office Visit [facility] Breast Care Center [address] [facility]nd [place] [address] Berenice Resendez, SOFTWARE SUPPORT TECHNICIAN [address] [facility] [address] [facility] [address] [place] [phone] documented as of this encounter Procedures Procedure Name Priority Date/Time Associated Diagnosis Comments CBC WITH AUTO DIFFERENTIAL Routine 03/13/2023 4:36 PM EDT Carcinoma of fallopian tube, unspecified laterality (CMS/HCC) CA 125 Routine 03/13/2023 4:36 PM EDT Carcinoma of fallopian tube, unspecified laterality (CMS/HCC) COMPREHENSIVE METABOLIC PANEL, PLASMA Routine 03/13/2023 4:36 PM EDT Carcinoma of fallopian tube, unspecified laterality (CMS/HCC) documented in this encounter Results * CA 125 (04/10/2023 1:44 PM EDT) CA 125 7.38 <=38.00 U/mL 04/10/2023 3:19 PM EDT [facility] Blood Blood sample taken from central line / Unknown (Port) Long-term Catheter / Unknown 04/10/2023 1:44 PM EDT 04/10/2023 2:17 PM EDT [facility] - 04/10/2023 3:19 PM EDT Performed by Stephie electrochemiluminescent immunoassay. Results obtained with different test methods or kits cannot be used interchangeably. us Penelope Dodson MD LAB BLOOD ORDERABLES Final Result Performing Organization Address City/State/[facility] Co de Phone Number [facility] [address] [place] [phone] * (ABNORMAL) Urinalysis, manual only (03/20/2023 7:57 AM EDT) Color, Urine Yellow LAB URINALYSIS - AUTOMATED METHOD 03/20/2023 9:53 AM EDT [facility] Clarity, Urine Clear 03/20/2023 9:53 AM EDT [facility] Spec [place], Urine 1.015 <=1.005 to >=1.030 LAB URINALYSIS - AUTOMATED METHOD 03/20/2023 9:53 AM EDT [facility] pH, Urine 5.5 4.5 to 8 LAB URINALYSIS - AUTOMATED METHOD 03/20/2023 9:53 AM EDT [facility] Protein, Urine Trace(A) Negative mg/dL LAB URINALYSIS - AUTOMATED METHOD 03/20/2023 9:53 AM EDT [facility] Glucose, Urine Negative Negative mg/dL LAB URINALYSIS - AUTOMATED METHOD 03/20/2023 9:53 AM EDT [facility] Ketones, Urine Trace(A) Negative mg/dL LAB URINALYSIS - AUTOMATED METHOD 03/20/2023 9:53 AM EDT [facility] Blood, Urine Large(A) Negative LAB URINALYSIS - AUTOMATED METHOD 03/20/2023 9:53 AM EDT [facility] Bilirubin, Urine Negative Negative LAB URINALYSIS - AUTOMATED METHOD 03/20/2023 9:53 AM EDT [facility] Urobilinogen, Urine 0.2 0.2 to 1.0 mg/dL LAB URINALYSIS - AUTOMATED METHOD 03/20/2023 9:53 AM EDT [facility] Leukocytes, Urine Trace(A) Negative LAB URINALYSIS - AUTOMATED METHOD 03/20/2023 9:53 AM EDT [facility] Nitrite, Urine Negative Negative LAB URINALYSIS - AUTOMATED METHOD 03/20/2023 9:53 AM EDT [facility] Urine Urine specimen obtained by clean catch procedure / Unknown Non-blood Collection / Unknown 03/20/2023 7:57 AM EDT 03/20/2023 8:04 AM EDT Penelope Dodson MD LAB URINE ORDERABLES Final Result Performing Organization Address City/[facility] Co de Phone Number [facility] [address] [place] [address] * CA 125 (03/13/2023 4:36 PM EDT) CA 125 6.65 <=38.00 U/mL 03/13/2023 6:17 PM EDT [facility] Blood Blood sample taken from central line / Unknown (Port) Long-term Catheter / Unknown 03/13/2023 4:36 PM EDT 03/13/2023 4:47 PM EDT Narrative [facility] - 03/13/2023 6:17 PM EDT Performed by Stephie electrochemiluminescent immunoassay. Results obtained with different test methods or kits cannot be used interchangeably. Penelope Dodson MD LAB BLOOD ORDERABLES Final Result Performing Organization Address City/[facility]/ZIP Co de Phone Number [facility] [address] [place] [address] * (ABNORMAL) Comprehensive metabolic panel (03/13/2023 4:36 PM EDT) Glucose, Plasma 136(H) 74 - 99 mg/dL 03/13/2023 5:17 PM EDT [facility] BUN, Plasma 19 8 - 23 mg/dL 03/13/2023 5:17 PM EDT [facility] Creatinine, Plasma 0.78 0.60 - 1.10 mg/dL 03/13/2023 5:17 PM EDT [facility] BUN/Creatinine Ratio 24 03/13/2023 5:17 PM EDT [facility] Sodium, Plasma 137 136 - 145 mmol/L 03/13/2023 5:17 PM EDT [facility] Potassium, Plasma 3.7 3.7 - 4.8 mmol/L 03/13/2023 5:17 PM EDT [facility] Chloride, Plasma 99 97 - 107 mmol/L 03/13/2023 5:17 PM EDT [facility] CO2, Plasma 25 22 - 29 mmol/L 03/13/2023 5:17 PM EDT [facility] Anion Gap 13 6 - 16 mmol/L 03/13/2023 5:17 PM EDT [facility] Total Calcium, Plasma 8.9 8.9 - 10.2 mg/dL 03/13/2023 5:17 PM EDT [facility] Total Protein 6.8 6.3 - 7.9 g/dL 03/13/2023 5:17 PM EDT [facility] Albumin, Plasma 3.9 3.5 - 5.2 g/dL 03/13/2023 5:17 PM EDT [facility] AST, Plasma 17 9 - 36 U/L 03/13/2023 5:17 PM EDT [facility] ALT, Plasma 9 8 - 33 U/L 03/13/2023 5:17 PM EDT [facility] Alkaline Phosphatase, Plasma 53 46 - 142 U/L 03/13/2023 5:17 PM EDT [facility] Total Bilirubin, Plasma 0.3 0.2 - 1.1 mg/dL 03/13/2023 5:17 PM EDT [facility] eGFRcr 78.3 mL/min/1.7 3m*2 03/13/2023 5:17 PM EDT [facility] Comment:Reported eGFRcr in m L/min/1.73m2 is based the CKD-EPI 2020 equation that does not use a race coefficient. Blood Blood sample taken from central line / Unknown (Port) Long-term Catheter / Unknown 03/13/2023 4:36 PM EDT 03/13/2023 4:46 PM EDT Penelope Dodson MD LAB BLOOD ORDERABLES Final Result [facility] [address] [place] [address] * (ABNORMAL) CBC and differential (03/13/2023 4:36 PM EDT) WBC Count 4.81 3.70 - 10.30 10*3/uL LAB HEMATOLOGY METHOD 03/13/2023 5:03 PM EDT [facility] RBC Count 3.60(L) 3.90 - 5.20 10*6/uL LAB HEMATOLOGY METHOD 03/13/2023 5:03 PM EDT [facility] HGB 12.1 11.2 - 15.7 g/dL LAB HEMATOLOGY METHOD 03/13/2023 5:03 PM EDT [facility] HCT 36.8 34.0 - 45.0 % LAB HEMATOLOGY METHOD 03/13/2023 5:03 PM EDT [facility] Platelet Count 226 155 - 369 10*3/uL LAB HEMATOLOGY METHOD 03/13/2023 5:03 PM EDT [facility] MCV 102(H) 79 - 98 fL LAB HEMATOLOGY METHOD 03/13/2023 5:03 PM EDT [facility] MCH 33.6(H) 26.0 - 32.0 pg LAB HEMATOLOGY METHOD 03/13/2023 5:03 PM EDT [facility] MCHC 32.9 30.7 - 35.5 g/dL LAB HEMATOLOGY METHOD 03/13/2023 5:03 PM EDT [facility] RDW 14.3 11.5 - 14.5 % LAB HEMATOLOGY METHOD 03/13/2023 5:03 PM EDT [facility] MPV 9.1 8.8 - 12.5 fL LAB HEMATOLOGY METHOD 03/13/2023 5:03 PM EDT [facility] nRBC 0.0 <=0.0 per 100 WBCs LAB HEMATOLOGY METHOD 03/13/2023 5:03 PM EDT [facility] Differential Type Automated LAB HEMATOLOGY METHOD 03/13/2023 5:03 PM EDT [facility] Neutrophils % 74.0 % LAB HEMATOLOGY METHOD 03/13/2023 5:03 PM EDT [facility] Lymphocytes % 14.0 % LAB HEMATOLOGY METHOD 03/13/2023 5:03 PM EDT [facility] Monocytes % 6.0 % LAB HEMATOLOGY METHOD 03/13/2023 5:03 PM EDT [facility] Eosinophils % 5.0 % LAB HEMATOLOGY METHOD 03/13/2023 5:03 PM EDT [facility]ALTHCARE [facility] Basophils % 1.0 % LAB HEMATOLOGY METHOD 03/13/2023 5:03 PM EDT [facility] Immature Granulocytes % 0.0 % LAB HEMATOLOGY METHOD 03/13/2023 5:03 PM EDT [facility] Neutrophils Absolute 3.56 1.60 - 6.10 10*3/uL LAB HEMATOLOGY METHOD 03/13/2023 5:03 PM EDT [facility] Lymphocytes Absolute 0.65(L) 1.20 - 3.90 10*3/uL LAB HEMATOLOGY METHOD 03/13/2023 5:03 PM EDT [facility] Monocytes Absolute 0.31 0.30 - 0.90 10*3/uL LAB HEMATOLOGY METHOD 03/13/2023 5:03 PM EDT [facility] Eosinophils Absolute 0.23 0.00 - 0.50 10*3/uL LAB HEMATOLOGY METHOD 03/13/2023 5:03 PM EDT [facility] Basophils Absolute 0.04 0.00 - 0.10 10*3/uL LAB HEMATOLOGY METHOD 03/13/2023 5:03 PM EDT [facility] Immature Granulocytes Absolute 0.02 0.00 - 0.06 10*3/uL LAB HEMATOLOGY METHOD 03/13/2023 5:03 PM EDT [facility] Blood Blood sample taken from central line / Unknown (Port) Long-term Catheter / Unknown 03/13/2023 4:36 PM EDT 03/13/2023 4:46 PM EDT Narrative [facility] - 03/13/2023 5:03 PM EDT Therapeutic decision making should be based on absolute values, rather than percentages. us Penelope Dodson MD LAB BLOOD ORDERABLES Final Result [facility] [address] [place] [id number] documented in this encounter Visit Diagnoses Diagnosis Carcinoma of fallopian tube, unspecified laterality (CMS/HCC)- Primary Vaginal bleeding Other specified noninflammatory disorder of [...] documented as of this encounter Care Teams Lime Boiler Relationship Specialty Start Date End Date Flaquita Dorsey DO [address] [place] [address] PCP - General 12/14/21 Aliyah Valencia MD [address] [place] [address] Referring Physician 03/10/21 Conrado Iqbal MD [address] [place] [phone] Service Attending Cardiology 08/19/22 documented as of this encounter
--- OUTSIDE RECORDS SUMMARY | 2024-07-10 11:57 | XMS_ITS | Encounter Summary ---
Author Organization [facility] Address [address] [place], [place] [id number] Care Team Providers Care Stone Cleaner Name Role Phone Aliyah Valencia MD Unavailable [phone] Flaquita Dorsey DO Primary Care Provider + [phone] Conrado Iqbal MD Unavailable Reason for Visit * Reason Onset Date Comments Med Refill 05/29/2023 Encounter Details Date Type Department Care Team (Late Contact Info) Description 05/29/2023 Refill [facility] [address] [place] [address] Aliyah Saravia, PharmD [address] [address] Social History Tobacco Use Types Packs/Day Years Used Date Smoking Tobacco: Former Cigarettes 0.5 22 1 976 - 1998 Smokeless Tobacco: Former Alcohol Use Standard Drinks/Week Comments Not Currently 0 (1 standard drink = 0.6 oz pur e alcohol) PHQ-2 Answer Date Recorded Patient Health Questionnaire-2 Score 0 05/29/2023 Comments No Sex and Gender Information Value [...] [address] [place] [address] Penelope Carmona MD [address] [facility] [address] [place] [address] 08/05/2024 9:30 AM EST Appointment [facility] [address] [place] [phone] 02/26/2025 9:30 AM EDT Appointment [facility] [place] [address] [address] [facility] [address] [place] [address] 02/26/2025 10:30 AM EDT Office Visit [facility] [address] [facility] 2nd [place] [address] Berenice Resendez, CLINICAL APPLICATIONS MANAGER [address] [facility] [address] [place] [address] documented as of this encounter Visit Diagnoses Not on filedocumented in this encounter Additional Health Concerns Assessment Noted Time A fall risk assessment has been complete d for the patient 05/29/2023 2:04 PM EDT A Body Mass Index follow-up plan has been documented for the patient 08/19/2022 9:30 AM EST documented as of this encounter Care Teams Stone Cleaner Relationship Specialty Start Date End Date Flaquita Dorsey DO [address] [place] [address] PCP - General 12/14/21 Aliyah Valencia MD [address] [place] [address] Referring Physician 03/10/21 Conrado Iqbal MD [address] [place] [address] Service Attending Cardiology 08/19/22 documented as of this encounter
--- OUTSIDE RECORDS SUMMARY | 2024-07-10 11:57 | XMS_ITS | Encounter Summary ---
Author Organization Healthcare Address [address] [place] [address] Care Team Providers Care Residential Air Sealing Technician Name Role Phone Aliyah Valencia MD Unavailable [phone] Flaquita Dorsey DO Primary Care Provider +- [phone] Conrado Iqbal MD Unavailable Encounter Details Date Type Department Care Team (Latest Contact Info) Description 06/16/2023 Travel Social History Tobacco Use Types Packs/Day [...] AM EST Office Visit [facility] [address] [facility] [address] [place] [address] Penelope Carmona MD [address] [facility] [address] [place] [address] 08/05/2024 9:30 AM EST Appointment [facility] [address] [place] [address] 02/26/2025 9:30 AM EDT Appointment [facility] [address] [place] [address] 02/26/2025 10:30 AM EDT Office Visit [facility] [address] [facility], [address]nd [place] [address] Berenice Resendez D, DOCUMENTATION NURSE [address] [facility] [address] [place] [address] documented as of this encounter Visit Diagnoses Not on filedocumented in this encounter Additional Health Concerns Assessment Noted Time A fall risk assessment has been complete d for the patient 05/29/2023 2:04 PM EDT A Body Mass Index follow-up plan has been documented for the patient 08/19/2022 9:30 AM EST documented as of this encounter Care Teams Residential Air Sealing Technician Relationship Specialty Start Date End Date Flaquita Dorsey DO [address] [place] [address] PCP - General 12/14/21 Aliyah Valencia MD [address] [place] [address] Referring Physician 03/10/21 Conrado Iqbal MD [address] [place] [phone] Service Attending Cardiology 08/19/22 documented as of this encounter
--- OUTSIDE RECORDS SUMMARY | 2024-07-10 11:57 | XMS_ITS | Encounter Summary ---
Author Organization [facility] Address [address] [place], [place] [id number] Care Team Providers Care Barrel Washer Machine Name Role Phone Aliyah Valencia MD Unavailable [phone] Flaquita Dorsey DO Primary Care Provider [phone] Conrado Iqbal MD Unavailable Reason for Referral * Imaging (Routine) - Closed Specialty Diagnoses / Procedures Referred By Contac t Referred To Contact Radiology Diagnoses Carcinoma of fallopian tube, unspecified laterality (CMS/HCC) Procedures CT Abdomen Pelvis w IV Contrast Penelope Carmona MD [address] [address] Phone: tel: fax: Referral ID Status Reason Start Date Expiration Date Visits Re quested Visits Authorized [id number] Closed 05/29/2023 11/27/2024 1 1 * Imaging (Routine) - Closed Specialty Diagnoses / Procedures Referred By Contac t Referred To Contact Radiology Diagnoses Carcinoma of fallopian tube, unspecified laterality (CMS/HCC) Procedures CT Chest w IV Contrast Penelope aCrmona MD [address] [address] Phone: tel: fax: Referral ID Status Reason Start Date Expiration Date Visits Re quested Visits Authorized [id number] Closed 05/29/2023 11/27/2024 1 1 Reason for Visit * Imaging (Routine) - Closed Specialty Diagnoses / Procedures Referred By Contac t Referred To Contact Radiology Diagnoses Carcinoma of fallopian tube, unspecified laterality (CMS/HCC) Procedures CT Abdomen Pelvis w IV Contrast Penelope Carmona MD [address] [facility] [address] [place] [address] Phone: tel: fax: Referral ID Status Reason Start Date Expiration Date Visits Re quested Visits Authorized [id number] Closed 05/29/2023 11/27/2024 1 1 Encounter Details Date Type Department Care Team (Latest Contact Info) Description 06/16/2023 2:18 PM EST - 06/16/2023 11:59 PM EST Hospital Encounter [facility] [address] [place] [address] Carcinoma of fallopian tube, unspecified laterality (CMS/HCC) [...] Everywhere. * Contrast Imaging Discharge Instructions ([place]) (Swedish) documented in this encounter Medications at Time of Discharge aspirin 81 MG chewable tablet Chew 1 tablet (81 mg) 1 (one) time each day. ergocalciferol (Vitamin D-2) 1.25 MG (93497 UT) capsule Take 1 capsule (50,000 Units) [...] (one) time each day. 30 capsule 2 05/29/2023 06/19/2023 Flaxseed, Linseed, (Flaxseed Oil) 1000 MG capsule [...] Gynecology [address] [place] [address] Penelope Carmona MD 800 [facility] [address] [place] [address] 08/05/2024 9:30 AM EST Appointment [facility] [address] [place] [address] 02/26/2025 9:30 AM EDT Appointment [facility] [place] [address] [address] [facility] [address] [place] [address] 02/26/2025 10:30 AM EDT Office Visit [facility] [place] [address] [facility], 2nd [place] [address] Berenice Resendez, VENEER DRIER TAILER [address] [facility] [address] [place] [address] documented as of this encounter Procedures Procedure Name Priority Date/Time Associated Diagnosis Comments CT ABDOMEN PELVIS W IV CONTRAST Routine 06/16/2023 3:23 PM EST Carcinoma of fallopian tube, unspecified laterality (CMS/HCC) CT CHEST W IV CONTRAST Routine 06/16/2023 3:23 PM EST Carcinoma of fallopian tube, unspecified laterality (CMS/HCC) documented in this encounter Results * CT Abdomen Pelvis w IV Contrast (06/16/2023 3:23 PM EST) Anatomical Region Laterality Modality Abdomen, Pelvis Computed Tomogra phy Impressions 06/16/2023 4:39 PM EST Chest: No evidence of disease progression. Abdomen/Pelvis: Stable to borderline decreased size of vaginal cuff lesion. CRITICAL RESULT: ?? No. COMMUNICATION: Per this written report. By electronically signing this report, I, the attending physician, attest that I have personally reviewed the images/data for the above examination(s) and agree with the final edited report. Drafted by Doron Lizarraga MD on 06/16/2023 3:46 PM Final report signed by Mark Whelan MD on 06/16/2023 4:39 PM Narrative 06/16/2023 4:39 PM EST CLINICAL INDICATION: Ovarian cancer, monitor TECHNIQUE: Multiple [...] lesions. Procedure Note Mark Whelan MD - 06/16/2023 CLINICAL INDICATION: Ovarian cancer, monitor TECHNIQUE: Multiple axial CT images were obtained from thoracic inlet through pubicsymphysis following administration of IV contrast, Omnipaque 300, 100 mL.Reformatted images of the abdomen and pelvis in the coronal and sagittalplanes were generated from the axial data set to facilitate diagnosticaccuracy. Total DLP (Dose-Length Product): 458.27 mGy.cm. Please note: The reportedvalue represents the total of one or more individual components during theCT acquisition on this date and at this time, and as such, the same valuemay appear in more than one CT report depending on theinterpreting/reporting physicians. COMPARISON: CT chest abdomen pelvis March [...] lobe pulmonary nodule.Calcified granulomas and calcified hilar adenopathy. No pleural effusionsor suspicious thickening. Musculoskeletal and Body Wall: No clearly aggressive bone lesions.Multilevel degenerative changes of the spine. Stable postproceduralchanges in the left breast. Right chest wall port. Abdomen/Pelvis: Solid Abdominal Organs: No suspicious hepatic lesions or masses. Statuspost cholecystectomy. Biliary ductal dilatation to the level of theampulla. No suspicious pancreatic masses or lesions, diffuse fattyinfiltration. Stable appearance of left adrenal angiomyolipoma and the 14mm peripherally enhancing lesion in the superior pole of the right kidney.Right indeterminate adrenal nodule is stable in size measuring 2.2 cm. GI Tract/Mesentery/Peritoneum: Stomach is normal. Duodenal diverticula arepresent. No bowel dilation, wall thickening, or mesenteric masses. Pelvic Viscera: Underdistended urinary bladder. Status post hysterectomy.Stable to borderline decreased size of lesion at the vaginal cuff. Nosuspicious masses or lesions in the pelvis. Lymph Nodes/Vasculature: No suspicious lymphadenopathy. The vasculature ispatent. No abdominal aortic aneurysm. Moderate calcified atherosclerosisof the abdominal aorta. Free Fluid:No ascites Musculoskeletal and Body Wall:Unchanged appearance of fat, small, andlarge bowel containing ventral abdominal hernia without signs ofcomplication. Degenerative changes of the spine. No suspicious body walllesions. IMPRESSION: Chest: No evidence of disease progression. Abdomen/Pelvis: Stable to borderline decreased size of vaginal cufflesion. CRITICAL RESULT: No. COMMUNICATION: Per this written report. By electronically signing this report, I, the attending physician, attestthat I have personally reviewed the images/data for the aboveexamination(s) and agree with the final edited report. Drafted by Doron Lizarraga MD on 06/16/2023 3:46 PM Final report signed by Mark Whelan MD on 06/16/2023 4:39 PM us Penelope Dodson MD IMG CT PROCEDURES Fin al Result * CT Chest w IV Contrast (06/16/2023 3:23 PM EST) Anatomical Region Laterality Modality Chest Computed Tomogra phy Impressions 06/16/2023 4:39 PM EST Chest: No evidence of disease progression. Abdomen/Pelvis: Stable to borderline decreased size of vaginal cuff lesion. CRITICAL RESULT: ?? No. COMMUNICATION: Per this written report. By electronically signing this report, I, the attending physician, attest that I have personally reviewed the images/data for the above examination(s) and agree with the final edited report. Drafted by Doron Lizarraga MD on 06/16/2023 3:46 PM Final report signed by Mark Whelan MD on 06/16/2023 4:39 PM Narrative 06/16/2023 4:39 PM EST CLINICAL INDICATION: Ovarian cancer, monitor TECHNIQUE: Multiple [...] lesions. Procedure Note Mark Whelan MD - 06/16/2023 CLINICAL INDICATION: Ovarian cancer, monitor TECHNIQUE: Multiple axial CT images were obtained from thoracic inlet through pubicsymphysis following administration of IV contrast, Omnipaque 300, 100 mL.Reformatted images of the abdomen and pelvis in the coronal and sagittalplanes were generated from the axial data set to facilitate diagnosticaccuracy. Total DLP (Dose-Length Product): 458.27 mGy.cm. Please note: The reportedvalue represents the total of one or more individual components during theCT acquisition on this date and at this time, and as such, the same valuemay appear in more than one CT report depending on theinterpreting/reporting physicians. COMPARISON: CT chest abdomen pelvis March [...] lobe pulmonary nodule.Calcified granulomas and calcified hilar adenopathy. No pleural effusionsor suspicious thickening. Musculoskeletal and Body Wall: No clearly aggressive bone lesions.Multilevel degenerative changes of the spine. Stable postproceduralchanges in the left breast. Right chest wall port. Abdomen/Pelvis: Solid Abdominal Organs: No suspicious hepatic lesions or masses. Statuspost cholecystectomy. Biliary ductal dilatation to the level of theampulla. No suspicious pancreatic masses or lesions, diffuse fattyinfiltration. Stable appearance of left adrenal angiomyolipoma and the 14mm peripherally enhancing lesion in the superior pole of the right kidney.Right indeterminate adrenal nodule is stable in size measuring 2.2 cm. GI Tract/Mesentery/Peritoneum: Stomach is normal. Duodenal diverticula arepresent. No bowel dilation, wall thickening, or mesenteric masses. Pelvic Viscera: Underdistended urinary bladder. Status post hysterectomy.Stable to borderline decreased size of lesion at the vaginal cuff. Nosuspicious masses or lesions in the pelvis. Lymph Nodes/Vasculature: No suspicious lymphadenopathy. The vasculature ispatent. No abdominal aortic aneurysm. Moderate calcified atherosclerosisof the abdominal aorta. Free Fluid:No ascites Musculoskeletal and Body Wall:Unchanged appearance of fat, small, andlarge bowel containing ventral abdominal hernia without signs ofcomplication. Degenerative changes of the spine. No suspicious body walllesions. IMPRESSION: Chest: No evidence of disease progression. Abdomen/Pelvis: Stable to borderline decreased size of vaginal cufflesion. CRITICAL RESULT: No. COMMUNICATION: Per this written report. By electronically signing this report, I, the attending physician, attestthat I have personally reviewed the images/data for the aboveexamination(s) and agree with the final edited report. Drafted by Doron Lizarraga MD on 06/16/2023 3:46 PM Final report signed by Mark Whelan MD on 06/16/2023 4:39 PM us Penelope Dodson MD IMG CT [...] Units 500 Units, Intracatheter, Once as needed, Starting on 06/16/23 at 1506, Until 06/17/23 at 0242, Routine, Intraprocedure, line care Given 06/16/2023 3:36 PM EST 500 Units iohexol (OMNIPaque) 300 MG/ML injection 100 mL 100 mL, Intravenous, Once in imaging, 1 dose, Starting on Mon06/16/23 at 1448, Until Mon06/16/23 at 1516, Routine, Imaging Protocol Orders Given 06/16/2023 3:16 PM EST 100 mL iohexol (OMNIPaque) 9 MG/ML oral contrast 500 mL 500 mL, Oral, Once in imaging, 1 dose, Starting on Mon06/16/23 at 1448, Until Mon06/16/23 at 1515, Routine, Imaging Protocol Orders Given 06/16/2023 3:15 PM EST 500 mL documented in this encounter Additional Health Concerns Assessment Noted Time A fall risk assessment has been complete d for the patient 05/29/2023 2:04 PM EDT A Body Mass Index follow-up plan has been documented for the patient 08/19/2022 9:30 AM EST documented as of this encounter Care Teams Barrel Washer Machine Relationship Specialty Start Date End Date Flaquita Dorsey DO [address] [place] [address] PCP - General 12/14/21 Aliyah Valencia MD [address] [place] [address] Referring Physician 03/10/21 Conrado Iqbal MD [address] [place] [address] Service Attending Cardiology 08/19/22 documented as of this encounter
--- OUTSIDE RECORDS SUMMARY | 2024-07-10 11:57 | XMS_ITS | Encounter Summary ---
Author Organization [facility] Address [address] [place] [address] Care Team Providers Care General House Worker Name Role Phone Aliyah Valencia MD Unavailable [phone] Flaquita Dorsey DO Primary Care Provider [phone]- [phone] Conrado Iqbal MD Unavailable Encounter Details Date Type Department Care Team (Late st Contact Info) Description 05/01/2023 Telephone [facility] [address] [place] [address] Georgette Acevedo RN [facility] Social History Tobacco Use Types [...] Telephone Encounter - Georgette Acevedo RN - 05/01/2023 1:25 PM EDT Patient called in to reschedule from 05/01 to 05/08. Gave new chemo appts, she verbalized understanding. Georgette Acevedo RN documented in this encounter Plan of Treatment Upcoming Encounters Date Type Department Care Team ([facility] st Contact Info) Description 08/05/2024 8:00 AM EST Office Visit [facility] [address] [facility] [address] [place] [address] Penelope Carmona MD [address] [facility] [address] [facility] [address] [place] [address] 08/05/2024 9:30 AM EST Appointment [facility] [address] [place] [address] 02/26/2025 9:30 AM EDT Appointment [facility] [address] [facility] [address] [place] [address] 02/26/2025 10:30 AM EDT Office Visit [facility] [address] [facility], 2nd [place] [address] Berenice Resendez D, COST COORDINATOR [address] [facility] [address] [facility] [address] [place] [address] documented as of this encounter Visit Diagnoses Not on filedocumented in this encounter Additional Health Concerns Assessment Noted Time A fall risk assessment has been complete d for the patient 04/10/2023 1:46 PM EDT A Body Mass Index follow-up plan has been documented for the patient 08/19/2022 9:30 AM EST documented as of this encounter Care Teams General House Worker Relationship Specialty Start Date End Date Flaquita Dorsey DO [address] [place], [place] [id number] PCP - General 12/14/21 Aliyah Valencia MD [address] [place], [place] [id number] Referring Physician 03/10/21 Conrado Iqbal MD [address] [place] [address] Service Attending Cardiology 08/19/22 documented as of this encounter
--- OUTSIDE RECORDS SUMMARY | 2024-07-10 11:57 | XMS_ITS | Encounter Summary ---
Author Organization Healthcare Address [address] [place], [place] [id number] Care Team Providers Care Route Salesman Name Role Phone Aliyah Valencia MD Unavailable [phone] Flqauita Dorsey DO Primary Care Provider [phone] Conrado Iqbal MD Unavailable Reason for Visit * Reason Comments Chemotherapy * Episode Based Medications (Routine) - Authorized Specialty Diagnoses / Procedures Referred By Contac t Referred To Contact Diagnoses Carcinoma of fallopian tube, unspecified laterality (CMS/HCC) Procedures Bevacizumab Every 21 Days Penelope Carmona MD [address] [facility] [address] Lai [facility] [address] [place] [address] Phone: tel: fax: [facility] Infusion Clinic [address] [place] [address] Phone: tel: Referral ID Status Reason Start Date Expiration Date V isits Requested Visits Authorized [id number] Authorized 03/13/2023 09/11/2024 1 26 Encounter Details Date Type Department Care Team (Late st Contact Info) Description 05/29/2023 1:00 PM EDT Office Visit [facility] Gynecology [address] [address] [place] [address] Penelope Carmona MD [address] [facility] [address] [place] [address] Carcinoma of fallopian tube, unspecified [...] Sign Reading Time Taken Comments Blood Pressure 138/81 05/29/2023 1:07 PM EDT Pulse 96 05/29/2023 1:07 PM EDT Temperature 37.1 ??C (98.7 ??F) 05/29/2023 1:07 PM ED T Respiratory Rate 20 05/29/2023 1:07 PM EDT Oxygen Saturation 96% 05/29/2023 1:07 PM EDT Inhaled Oxygen Concentration - - Weight 75.8 kg (167 lb 1.7 oz) 05/29/2023 1:07 P M EDT Height 160 cm (5' 3 ) 05/29/2023 1:07 PM EDT Body Mass Index 29.6 05/29/2023 1:07 PM EDT documented in this encounter Miscellaneous Notes * Progress Notes - Penelope Carmona MD - 05/29/2023 1:00 PM EDT Primary Care Provider: Flaquita [...] were negative for metastatic disease. ER and CO were strongly positive and HER-2 was negative. [...] ER positive in 90% of the cells, CO positive in 95% of cells andHER-2 negative by IHC at 0. On 10/04/2016 she underwent a left needle localized lumpectomy. Mcdonald lymph node biopsy was not performed as [...] vagina). Initiated neoadjuvant chemo with carbo/Taxol per PATTERN DUPLICATOR followed by BSO/Omentectomy and adjuvant Carbotaxol. Recurrence in March 2019. Treated with carbo initially followed by Olaparib. 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 She is currently off of therapy. She follows with Dr. Hutchins in [facility]. 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 Recurrence - First recurrence, [place] sensitive - CT 04/10/19 with 3 cmlesion at cuff - Ca125 12 (from 8) - MTB discussion: recommend trial if progression on [place] regimen or consider Parp for RAD 51 [...] ccy for choledocolithiasis 2019 (SGB) - Ca125: 80-6-2-7-7-9-8 - Started Parp inhibitor 09/2019 - Dose [...] concerning findings - Most recent Ca125 7.49 (93280) 06/30/2021 Recurrence - Third recurrence, [place] sensitive - CT 06/30/2021 shows vaginal cuff [...] disease seen 04/11/2022 Recurrence - Fourth recurrence, [place] resistant - CT 04/11/2022 with increase in [...] Chemotherapy - Avastin started 03/20/2023 - Ca125 7.38-7.51 Interval updates to history: Oncologic treatment history as described above reviewed today as well as PMH/PSH/Meds/All/SH/FH, with updates made as appropriate. Patient is here today for cycle 4 of Dana. Doing well. Did have a little GI upset on way here - this happens sometimes on days of her visits. No VB since starting the Dana. No major CP episodes since her last visit here but had one shortly before that visit. Has had some more minor episodes of feeling unwell that rapidly resolves with resting. Appetite is good. No N/V. Has regular BM's. Just saw cotton chopper and her thyroid medicine has increased. Has been fatigued so hoping this will help her. Neuropathy is stable and Gabapentin rem ains helpful. PMH: h/o breast cancer x2, ?cervical cancer, [...] years ago, no drugs, retired, lives in [place]. FamHx: Father-prostate, MGma-colon. ROS: 14 pt ROS performed with pertinent positives and negatives as noted in HPI. ROS otherwise negative Objective Physical Exam: Vital Signs for this encounter: BSA: 1.84 meters squared Visit Vitals BP 138/81 (BP Location: Right arm, Patient Position: Sitting, BP Cuff Size: Adult) Pulse 96 Temp 37.1 ??C (98.7 ??F) (Oral) Resp 20 Ht 1.6 m (5' 3 ) Wt 75.8 kg (167 lb 1.7 oz) LMP 11/17/1981 (Approximate) SpO2 96% BMI 29.60 kg/m?? OB Status Hysterectomy Smoking Status Former [...] Genitourinary: Comments: Declined exam today Musculoskeletal: General: Swelling present. Comments: Mild ankle swelling Skin: General: Skin [...] by radiation for additional recurrence - Now [place] resistant - Started Dana/oral Cytoxan, held Dana after cycle 4 due to Chest pain - CT after 4 cycles showed interval resolution of vaginal mass and no further disease. - At visit 08/2022: Patient had additional CP episode and heart cath subsequently performed. No severe disease noted and chief dietitian reports ok to continue Dana. However, also [...] back and continue oral Cytoxan. - Cycle 4 of Dana today. Continue Cytoxan. Cyclic Ca125 monitoring with imaging q 3-[address] after this cycle Problem 2: Encounter for chemotherapy Assessment and plan 2: - Proceed with cycle 4 of Bevacizumab 15 mg/kg today. Plan q [...] recurrent and mass recurrent on CT - Now resolved after 3 cycles of Dana. Monitor. Problem 4: History [...] cards at - Seen by cardiology at [facility] and acute workup negative but diagnostic [...] early April - ED workup negative for IA - Continue to monitor closely Problem 7: Obesity Assessment and plan 7: - Body mass index is 29.6 kg/m??. 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 Summary of time spent in team based care today includes the following activities performed by myself: review of prior documentation in preparation for visit, review of labs and any other test results, obtaining and reviewing medical history, appropriate focused physical exam, discussion of exam and/or test results, discussion of plan of care, lab orders, phlebotomy, chemo related decision making , imaging orders, and documentation Penelope Dodson MD [facility] GYNECOLOGY [address] [address] [address] [place] [address] Dept: [phone] Dept Loc: [phone] * Progress Notes - Aliyah Saravia, PharmD - 05/29/2023 1:00 PM EDT Pharmacy Hematology/Oncology Treatment Plan [...] from 05/28/2001: pT1c, pN0, cM0, G2, ER+, CO+, HER2: Unknown - Signed by Cara Greene MD on 06/19/2021 - Pathologic stage from 10/05/2016: Stage Unknown (rpT1c, pNX, cM0, G2, ER+, CO+, HER2-) - Signed by Cara Greene MD on 06/19/2021 Study Patient: No Treatment Protocol: Bevacizumab IV every 21 days + continuous PO cytoxan Treatment Plan reviewed for: [x] Follow-Up Clinical Review Cycle 4 Day 1 [x] Follow-Up Clinical Review for Continuous Oral Therapy Interval History: Patient's CT scan from 03/13 demonstrated slight progression while on cytoxan PO. Re-initiated bevacizumab IV maintenance therapy every 21 days in addition to continuous cytoxan therapy due to prior response and cardiac monitoring WNL. Patient reports tolerating therapy well overall. Dosing Wt: 84 kg Today's Wt: Wt Readings from Last 1 Encounters: 05/29/23 75.8 kg (167 lb 1.7 oz) Dosing Ht: 160 cm Dosing BSA: 1.88 m2 Recent Labs: OSH labs reviewed from 05/24/23 were appropriate for treatment: WBC: 3.9 10^3/uL ANC: 2.6 10^3/uL HGB: 13.1 g/dL PLT: 220 10^3/uL AST: 36 U/L ALT: 23 U/L ALKP: 59 U/L Tbili: 0.5 mg/dL SCr: 0.9 mg/dL Lab Results Component Value Date WBC [...] Value Date URINEPRO Negative 05/08/2023 Vitals: Vitals: 05/29/23 1307 BP: 138/81 Pulse: 96 Resp: 20 Temp: 37.1 ??C (98.7 ??F) SpO2: 96% Other Relevant Monitoring: None Treatment Plan: Cyclophosphamide 50 mg daily Bevacizumab 15 mg/kg (1200 mg) IV D1 Every 21 days [x] No dose adjustments made Current Treatment Plan History: Oral Cyclophosphamide 50 mg daily (08/31/22 - present) Bevacizumab Cycle 1: 03/20/23 Cycle 2: 04/10/23 Cycle 3: 05/08/23 Cycle 4: 05/29/23 Prior Chemotherapy History: hormone therapy for prior [...] prescribed to: [facility] Refills will be due: 10/2023 Patient will return to clinic in 3 weeks. Will follow-up at that time. Aliyah Saravia, WarrenD, BCPS documented in this encounter Plan of Treatment Upcoming Encounters Date Type Department Care Team ([facility] st Contact Info) Description 08/05/2024 8:00 AM EST Office Visit [facility] Gynecology [address] [facility] [address] [place] [address] Penelope Carmona MD [address] [facility] Tam[address] Lai [facility] [address] [place] [address] 08/05/2024 9:30 AM EST Appointment [facility] [address] [place] [address] 02/26/2025 9:30 AM EDT Appointment [facility] [address] [address] [address] [facility] [address] [place] [address] 02/26/2025 10:30 AM EDT Office Visit [facility] [address] [facility], 2nd [place] [address] Berenice Resendez, MODEL MAKER SCALE [address] [facility] [address] Lai [facility] [address] [place] [address] documented as of this encounter Procedures Procedure Name Priority Date/Time Associated Diagnosis Comments CA 125 Routine 05/29/2023 1:27 PM EDT Carcinoma of fallopian tube, unspecified laterality (CMS/HCC) documented in this encounter Results * CA 125 (05/29/2023 1:27 PM EDT) CA 125 6.50 <=38.00 U/mL 05/29/2023 3:23 PM EDT [facility] Blood Venous blood specimen / Unknown Venipuncture / Unknown 05/29/2023 1:27 PM EDT 05/29/2023 2:10 PM EDT Narrative [facility] - 05/29/2023 3:23 PM EDT Performed by Stephie electrochemiluminescent immunoassay. Results obtained with different test methods or kits cannot be used interchangeably. us Penelope Dodson MD LAB BLOOD ORDERABLES Final Result [facility] [address] [place] [address] documented in this encounter Visit Diagnoses Diagnosis [...] documented as of this encounter Care Teams Route Salesman Relationship Specialty Start Date End Date Flaquita Dorsey DO [address] [place] [address] PCP - General 12/14/21 Aliyah Valencia MD [address] [place] [place] [address] Referring Physician 03/10/21 Conrado Iqbal MD [address] [place] [address] Service Attending Cardiology 08/19/22 documented as of this encounter
--- OUTSIDE RECORDS SUMMARY | 2024-07-10 11:57 | XMS_ITS | Encounter Summary ---
Author Organization Healthcare Address [address] [place] [address] Care Team Providers Care Senior Inspector Name Role Phone Aliyah Valencia MD Unavailable [phone] Flaquita Dorsey DO Primary Care Provider + [phone] Conrado Iqbal MD Unavailable Encounter Details Date Type Department Care Team (Latest Contact Info) Description 05/29/2023 Travel Social History Tobacco Use Types Packs/Day Years Used Date Smoking Tobacco: Former Cigarettes 0.5 22 1 976 - 1997 Smokeless Tobacco: Former Alcohol Use Standard Drinks/Week [...] [facility] [address] [place] [address] Penelope Carmona MD [address] [facility] [address] [place] [address] 08/05/2024 9:30 AM EST Appointment [facility] [address] [place] [address] 02/26/2025 9:30 AM EDT Appointment [facility] [address] [place] [address] 02/26/2025 10:30 AM EDT Office Visit [facility] [address] [facility], [address] [place] [address] Berenice Resendez D, COMPETITIVE INTELLIGENCE ANALYST [address] [facility] [address] [place] [address] documented as of this encounter Visit Diagnoses Not on filedocumented in this encounter Additional Health Concerns Assessment Noted Time A fall risk assessment has been complete d for the patient 05/29/2023 2:04 PM EDT A Body Mass Index follow-up plan has been documented for the patient 08/19/2022 9:30 AM EST documented as of this encounter Care Teams Senior Inspector Relationship Specialty Start Date End Date Flaquita Dorsey DO [address] [place] [address] PCP - General 12/14/21 Aliyah Valencia MD [address] [place] [place] [address] Referring Physician 03/10/21 Conrado Iqbal MD [address] [place] [address] Service Attending Cardiology 08/19/22 documented as of this encounter
--- OUTSIDE RECORDS SUMMARY | 2024-07-10 11:57 | XMS_ITS | Encounter Summary ---
Author Organization Healthcare Address [address] [place] [address] Care Team Providers Care Shuttle Operator Name Role Phone Aliyah Valencia MD Unavailable [phone] Flaquita Dorsey DO Primary Care Provider + [phone] Conrado Iqbal MD Unavailable Encounter Details Date Type Department Care Team (Latest Contact Info) Description 05/08/2023 Travel Social History Tobacco Use Types Packs/Day [...] [facility] [address] [place] [address] Penelope Carmona MD [address] [facility] [address] [place] [address] 08/05/2024 9:30 AM EST Appointment [facility] [address] [place] [address] 02/26/2025 9:30 AM EDT Appointment [facility] [address] [place] [address] 02/26/2025 10:30 AM EDT Office Visit [facility] [address] [facility], [address] [place] [address] Berenice Resendez D, FIBERGLASS BONDING MACHINE TENDER [address] [facility] [address] [place] [address] documented as of this encounter Visit Diagnoses Not on filedocumented in this encounter Additional Health Concerns Assessment Noted Time A fall risk assessment has been complete d for the patient 05/08/2023 1:57 PM EDT A Body Mass Index follow-up plan has been documented for the patient 08/19/2022 9:30 AM EST documented as of this encounter Care Teams Shuttle Operator Relationship Specialty Start Date End Date Flaquita Dorsey DO [address] [place] [address] PCP - General 12/14/21 Aliyah Valencia MD [address] [place] [place] [address] Referring Physician 03/10/21 Conrado Iqbal MD [address] [place] [address] Service Attending Cardiology 08/19/22 documented as of this encounter
--- OUTSIDE RECORDS SUMMARY | 2024-07-10 11:57 | XMS_ITS | Encounter Summary ---
Author Organization Healthcare Address [address] [place], [place] [address] Care Team Providers Care Deckhand Fishing Vessel Name Role Phone Aliyah Valencia MD Unavailable [phone] Flaquita Dorsey DO Primary Care Provider [phone] Conrado Iqbal MD Unavailable Reason for Visit * Reason Comments Chemotherapy Encounter Details Date Type Department Care Team ([facility] st Contact Info) Description 06/19/2023 3:30 PM EST Office Visit [facility] Gyne[facility] [address] [facility] [address] [place] [address] Penelope Carmona MD [address] [facility] [address] [facility] [address] [place] [address] Carcinoma of fallopian tube, unspecified laterality (CMS/HCC) (Primary Dx); Encounter for antineoplastic chemotherapy; Intermittent diarrhea Social History Tobacco Use Types Packs/Day Years [...] Sign Reading Time Taken Comments Blood Pressure 119/69 06/19/2023 3:30 PM EST Pulse 88 06/19/2023 3:30 PM EST Temperature 36.8 ??C (98.3 ??F) 06/19/2023 3:30 PM ES T Respiratory Rate 16 06/19/2023 3:30 PM EST Oxygen Saturation 95% 06/19/2023 3:30 PM EST Inhaled Oxygen Concentration - - Weight 78.6 kg (173 lb 4.5 oz) 06/19/2023 3:30 P M EST Height 160 cm (5' 3 ) 06/19/2023 3:30 PM EST Body Mass Index 30.7 06/19/2023 3:30 PM EST documented in this encounter Miscellaneous Notes * Progress Notes - Penelope Carmona MD - 06/19/2023 3:30 PM EST Primary Care Provider: Flaquita Dorsey DO History of Present Illness: Chief complaint: 77 yo female here for clearance for and administration of Bevacizumab for recurrent fallopian tube cancer and to review CT scan from last week. Oncologic history is as follows: Oncology History [...] were negative for metastatic disease. ER and NH were strongly positive and HER-2 was negative. [...] ER positive in 90% of the cells, NH positive in 95% of cells andHER-2 negative by IHC at 0. On 10/04/2016 she underwent a left needle localized lumpectomy. [place] lymph node biopsy was not performed as [...] vagina). Initiated neoadjuvant chemo with carbo/Taxol per TRUSS DRIVER HELPER followed by BSO/Omentectomy and adjuvant Carbotaxol. Recurrence in March 2019. Treated with carbo initially followed by Olaparib. 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 She is currently off of therapy. She follows with Dr. Hutchins in [place] [facility]. Malignant neoplasm of left breast in female, estrogen receptor positive (CMS/HCC) 05/28/2001 Cancer Staged Staging form: Breast, AJCC 8th Edition, Pathologic stage from 05/28/2001: pT1c, pN0, cM0, G2, ER+, NH+, HER2: Unknown - Signed by Cara Greene MD on 06/19/2021 10/05/2016 Cancer Staged Staging form: Breast, AJCC 8th Edition, Pathologic stage from 10/05/2016: Stage Unknown (rpT1c, pNX, cM0, G2, ER+, NH+, HER2-) - Signed by Cara Greene MD on 06/19/2021 12/09/2020 Initial Diagnosis Malignant neoplasm of left breast in female, estrogen receptor positive (CMS/HCC) Cervical cancer (CMS/HCC) 1984 Initial Diagnosis Cervical cancer (CMS/HCC) - Had HLELEN for pre-cancerous cell - Had [facility] and [...] additional cycles of Carbo/Taxol 09/12/2018 - Ca125 33-79-73-9-8 - Post treatment CT 10/01/2018 JARED 09/2018 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 Recurrence - First recurrence, holy cross sensitive - CT 04/10/19 with 3 cmlesion at cuff - Ca125 12 (from 8) - MTB discussion: recommend trial if progression on holy cross regimen or consider Parp for RAD 51 [...] ccy for choledocolithiasis 2019 (SGB) - Ca125: 58-8-5-7-7-9-8 - Started Parp inhibitor 09/2019 - Dose [...] concerning findings - Most recent Ca125 7.49 (47695) 06/30/2021 Recurrence - Third recurrence, holy cross sensitive - CT 06/30/2021 shows vaginal cuff [...] disease seen 04/11/2022 Recurrence - Fourth recurrence, holy cross resistant - CT 04/11/2022 with increase in [...] Chemotherapy - Avastin started 03/20/2023 - Ca125 7.38-7.51-6.5 - CT 06/16/2023: Stable to decreased size of vaginal cuff disease, no other new findings Interval updates to history: Oncologic treatment history as described above reviewed today as well as PMH/PSH/Meds/All/SH/FH, with updates made as appropriate. Patient is here today for cycle 5 of Dana. Doing well. Trace vaginal bleeding at this point. No further chest pain episodes. Has had diarrhea on and off. Has never had colonoscopy but has done home screening. PMH: h/o breast cancer x2, ?cervical cancer, [...] years ago, no drugs, retired, lives in [place]. FamHx: Father-prostate, MGma-colon. ROS: 14 pt ROS performed with pertinent positives and negatives as noted in HPI. ROS otherwise negative Objective Physical Exam: Vital Signs for this encounter: BSA: 1.87 meters squared Visit Vitals BP 119/69 Pulse 88 Temp 36.8 ??C (98.3 ??F) Resp 16 Ht 1.6 m (5' 3 ) Wt 78.6 kg (173 lb 4.5 oz) LMP 11/17/1981 (Approximate) SpO2 95% BMI 30.70 kg/m?? OB Status Hysterectomy Smoking Status Former [...] by radiation for additional recurrence - Now holy cross resistant - Started Dana/oral Cytoxan, held Dana after cycle 4 due to Chest pain - CT after 4 cycles showed interval resolution of vaginal mass and no further disease. - At visit 08/2022: Patient had additional CP episode and heart cath subsequently performed. No severe disease noted and calculus tutor reports ok to continue Dana. However, also [...] with stable to improved disease at cuff. Reviewed images and discussed with patient. - Cycle 5 of Dana today. Continue Cytoxan. Cyclic Ca125 monitoring with imaging q 3-4 cycles. Problem 2: Encounter for chemotherapy Assessment and plan 2: - Proceed with cycle 5 of Bevacizumab 15 mg/kg today. Plan q [...] and mass recurrent on CT - Now essentially resolved after 3 cycles of Dana. Monitor. [...] - Seen by cardiology at [facility] and acute workup negative but diagnostic cath [...] early April - ED workup negative for NE - Continue to monitor closely Problem 7: Obesity Assessment and plan 7: - Body mass index is 30.7 kg/m??. 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 Problem 9: Intermittent diarrhea Assessment and plan 9: - Unlikely relation to Cytoxan given timing/drug profile - Offered colonoscopy/GI referral but declines for now - Monitor Summary of time spent [...] orders, phlebotomy, and documentation Penelope Dodson MD [facility] [address] [place] [address] [facility] [address] Dept: [phone] Dept Loc: [phone] * Progress Notes - Serena Xiong, PharmD - 06/19/2023 3:30 PM EST Images from the original note were not included. Pharmacy Hematology/Oncology Treatment Plan Note Daniela John [...] from 05/28/2001: pT1c, pN0, cM0, G2, ER+, NH+, HER2: Unknown - Signed by Cara Greene MD on 06/19/2021 - Pathologic stage from 10/05/2016: Stage Unknown (rpT1c, pNX, cM0, G2, ER+, NH+, HER2-) - Signed by Cara Greene MD on 06/19/2021 Study Patient: No Treatment Protocol: Bevacizumab IV every 21 days + continuous PO cytoxan Treatment Plan reviewed for: [x] Follow-Up Clinical Review Cycle 5 Day 1 [x] Follow-Up Clinical Review for Continuous Oral Therapy Interval History: Patient's CT scan from 03/13 demonstrated slight progression while on cytoxan PO. Re-initiated bevacizumab IV maintenance therapy every 21 days in addition to continuous cytoxan therapy due to prior response and cardiac monitoring WNL. May scans demonstrate response to treatment. Patient reports tolerating therapy well overall. Dosing Wt: 84 kg Today's Wt: Wt Readings from Last 1 Encounters: 06/19/23 78.6 kg (173 lb 4.5 oz) Dosing Ht: 160 cm Dosing BSA: 1.88 m2 Recent Labs: OSH labs from 06/14/23 were reviewed and deemed appropriate for treatment. Lab Results Component Value Date WBC 5.28 [...] Value Date URINEPRO Negative 05/08/2023 Vitals: Vitals: 06/19/23 1530 BP: 119/69 Pulse: 88 Resp: 16 Temp: 36.8 ??C (98.3 ??F) SpO2: 95% Other Relevant Monitoring: None Treatment Plan: Cyclophosphamide 50 mg daily Bevacizumab 15 mg/kg (1200 mg) IV D1 Every 21 days [x] No dose adjustments made Current Treatment Plan History: Oral Cyclophosphamide 50 mg daily (08/31/22 - present) Bevacizumab Cycle 1: 03/20/23 Cycle 2: 04/10/23 Cycle 3: 05/08/23 Cycle 4: 05/29/23 Cycle 5: 06/19/23 Prior Chemotherapy History: hormone therapy for prior [...] that time. Pharmacist Attestation: Serena Xiong PharmD, [facility] Hematology/Oncology Clinical Pharmacist documented in this encounter Plan of Treatment Upcoming Encounters Date Type Department Care Team (Late st Contact Info) Description 08/05/2024 8:00 AM EST Office Visit [facility] Gynecology [address] [facility] [address] [place] [address] Penelope Carmona MD [address] [facility] [address] [facility] [address] [place] [address] 08/05/2024 9:30 AM EST Appointment [facility] [address] [place] [address] 02/26/2025 9:30 AM EDT Appointment [facility] [address] [facility] [address] [place] [address] 02/26/2025 10:30 AM EDT Office Visit [facility] [address] [facility], 2nd [place] [address] Berenice Resendez, SALES AND MARKETING VICE PRESIDENT [address] [facility] [address] [facility] [address] [place] [address] documented as of this encounter Procedures Procedure Name Priority Date/Time Associated Diagnosis Comments CA 125 Routine 06/19/2023 3:53 PM EST Carcinoma of fallopian tube, unspecified laterality (CMS/HCC) documented in this encounter Results * CA 125 (07/10/2023 9:25 AM EST) CA 125 6.26 <=38.00 U/mL 07/10/2023 10:44 AM EST [facility] Blood Blood sample taken from central line / Unknown (Port) Long-term Catheter / Unknown 07/10/2023 9:25 AM EST 07/10/2023 9:51 AM EST Narrative [facility] - 07/10/2023 10:44 AM EST Performed by Stephie electrochemiluminescent immunoassay. Results obtained with different test methods or kits cannot be used interchangeably. us Penelope Dodson MD LAB BLOOD ORDERABLES Final Result [facility] [address] [place] [address] * (ABNORMAL) Urinalysis, manual only (06/19/2023 4:43 PM EST) Color, Urine Yellow LAB URINALYSIS - AUTOMATED METHOD 06/19/2023 5:14 PM EST [facility] Clarity, Urine Clear LAB URINALYSIS - AUTOMATED METHOD 06/19/2023 5:14 PM EST [facility] Spec [place], Urine 1.010 <=1.005 to >=1.030 LAB URINALYSIS - AUTOMATED METHOD 06/19/2023 5:14 PM EST [facility] pH, Urine 5.5 4.5 to 8 LAB URINALYSIS - AUTOMATED METHOD 06/19/2023 5:14 PM EST [facility] Protein, Urine Negative Negative mg/dL LAB URINALYSIS - AUTOMATED METHOD 06/19/2023 5:14 PM EST [facility] Glucose, Urine Negative Negative mg/dL LAB URINALYSIS - AUTOMATED METHOD 06/19/2023 5:14 PM EST [facility] Ketones, Urine Negative Negative mg/dL LAB URINALYSIS - AUTOMATED METHOD 06/19/2023 5:14 PM EST [facility] Blood, Urine Negative Negative LAB URINALYSIS - AUTOMATED METHOD 06/19/2023 5:14 PM EST [facility] Bilirubin, Urine Negative Negative LAB URINALYSIS - AUTOMATED METHOD 06/19/2023 5:14 PM EST [facility] Urobilinogen, Urine 0.2 0.2 to 1.0 mg/dL LAB URINALYSIS - AUTOMATED METHOD 06/19/2023 5:14 PM EST [facility] Leukocytes, Urine Small(A) Negative LAB URINALYSIS - AUTOMATED METHOD 06/19/2023 5:14 PM EST [facility] Nitrite, Urine Negative Negative LAB URINALYSIS - AUTOMATED METHOD 06/19/2023 5:14 PM EST [facility] Urine Urine specimen obtained by clean catch procedure / Unknown Non-blood Collection / Unknown 06/19/2023 4:43 PM EST 06/19/2023 5:07 PM EST Penelope Dodson MD LAB URINE ORDERABLES Final Result Performing Organization Address City/[facility]/ZIP Co de Phone Number [facility] [address] [place] [address] * CA 125 (06/19/2023 3:53 PM EST) CA 125 6.71 <=38.00 U/mL 06/19/2023 5:33 PM EST [facility] Blood Blood sample taken from central line / Unknown (Port) Long-term Catheter / Unknown 06/19/2023 3:53 PM EST 06/19/2023 4:24 PM EST Narrative [facility] - 06/19/2023 5:33 PM EST Performed by Stephie electrochemiluminescent immunoassay. Results obtained with different test methods or kits cannot be used interchangeably. Penelope Dodson MD LAB BLOOD ORDERABLES Final Result Performing Organization Address City/[facility] Co de Phone Number [facility] [address] [place] [address] documented in this encounter Visit Diagnoses Diagnosis Carcinoma of fallopian tube, unspecified laterality (CMS/HCC)- Primary Encounter for antineoplastic chemotherapy Intermittent diarrhea documented in this encounter Additional Health Concerns Assessment Noted Time A fall risk assessment has been complete d for the patient 06/19/2023 4:10 PM EST A Body Mass Index follow-up plan has been documented for the patient 08/19/2022 9:30 AM EST documented as of this encounter Care Teams Deckhand Fishing Vessel Relationship Specialty Start Date End Date Flaquita Dorsey DO [address] [place] [address] PCP - General 12/14/21 Aliyah Valencia MD [address] [place] [place] [address] Referring Physician 03/10/21 Conrado Iqbal MD [address] [place] [phone] Service Attending Cardiology 08/19/22 documented as of this encounter
--- OUTSIDE RECORDS SUMMARY | 2024-07-10 11:57 | XMS_ITS | Encounter Summary ---
Author Organization [facility] Address [address] [place] [address] Care Team Providers Care Heat Pump Installer Name Role Phone Aliyah Valencia MD Unavailable [phone] Flaquita Dorsey DO Primary Care Provider [phone] Conrado Iqbal MD Unavailable Reason for Referral * Imaging (Routine) - Closed Specialty Diagnoses / Procedures Referred By Contac t Referred To Contact Radiology Diagnoses Carcinoma of fallopian tube, unspecified laterality (CMS/HCC) Procedures CT Abdomen Pelvis w IV Contrast Penelope Carmona MD [address] [address] Phone: tel: fax: Referral ID Status Reason Start Date Expiration Date Visits Re quested Visits Authorized [id number] Closed 05/29/2023 11/27/2024 1 1 * Imaging (Routine) - Closed Specialty Diagnoses / Procedures Referred By Contac t Referred To Contact Radiology Diagnoses Carcinoma of fallopian tube, unspecified laterality (CMS/HCC) Procedures CT Chest w IV Contrast Penelope Carmona MD [address] [address] Phone: tel: fax: Referral ID Status Reason Start Date Expiration Date Visits Re quested Visits Authorized [id number] Closed 05/29/2023 11/27/2024 1 1 Encounter Details Date Type Department Care Team (Late Contact Info) Description 05/29/2023 Orders Only [facility] Gynecology [address] [place] [address] Penelope Carmona MD [address] [facility] [address] [place] [address] Carcinoma of fallopian tube, unspecified [...] Gynecology [address] [place] [address] Penelope Carmona MD [address] [facility] [address] [place] [address] 08/05/2024 9:30 AM EST Appointment [facility] 1 [address] [place] [address] 02/26/2025 9:30 AM EDT Appointment [facility] [address] [facility] [address] [place] [address] 02/26/2025 10:30 AM EDT Office Visit [facility] [address] [facility], 2nd [place] [address] Berenice Resendez, PEER FINANCIAL COUNSELOR [address] [facility] [address] [facility] [address] [place] [address] documented as of this encounter Results * [...] Mark Whelan MD on 06/16/2023 4:39 PM Penelope Dodson MD IMG CT PROCEDURES [...] documented as of this encounter Care Teams Heat Pump Installer Relationship Specialty Start Date End Date Flaquita Dorsey DO [address] [place], [place] [id number] PCP - General 12/14/21 Aliyah Valencia MD [address] [place] [address] Referring Physician 03/10/21 Conrado Iqbal MD [address] [place] [address] Service Attending Cardiology 08/19/22 documented as of this encounter
--- OUTSIDE RECORDS SUMMARY | 2024-07-10 11:57 | XMS_ITS | Encounter Summary ---
Author Organization Healthcare Address [address] [place] [address] Care Team Providers Care Underwriting Analyst Name Role Phone Aliyah Valencia MD Unavailable [phone] Flaquita Dorsey DO Primary Care Provider [phone]- [phone] Conrado Iqbal MD Unavailable Encounter Details Date Type Department Care Team (Latest Contact Info) Description 04/10/2023 Travel Social History Tobacco Use Types Packs/Day [...] AM EST Office Visit [facility] Gynecology [address] [facility] [address] [place] [address] Penelope Carmona MD [address] [facility] [address] [place] [address] 08/05/2024 9:30 AM EST Appointment [facility] [address] [place] [address] 02/26/2025 9:30 AM EDT Appointment [facility] [address] [place] [address] 02/26/2025 10:30 AM EDT Office Visit [facility] [address] [facility], 2nd [place] [address] Berenice Resendez D, RAILROAD ENGINEER [address] [facility] [address] [place] [address] documented as of this encounter Visit Diagnoses Not on filedocumented in this encounter Additional Health Concerns Assessment Noted Time A fall risk assessment has been complete d for the patient 04/10/2023 1:46 PM EDT A Body Mass Index follow-up plan has been documented for the patient 08/19/2022 9:30 AM EST documented as of this encounter Care Teams Underwriting Analyst Relationship Specialty Start Date End Date Flaquita Dorsey DO [address] [place] [address] PCP - General 12/14/21 Aliyah Valencia MD [address] [place] [place] [address] Referring Physician 03/10/21 Conrado Iqbal MD [address] [place] [phone] Service Attending Cardiology 08/19/22 documented as of this encounter
--- OUTSIDE RECORDS SUMMARY | 2024-07-10 11:57 | XMS_ITS | Encounter Summary ---
Author Organization [facility] Address [address] [place] [address] Care Team Providers Care Personal Injury Paralegal Name Role Phone Aliyah Valencia MD Unavailable [phone] Flaquita Dorsey DO Primary Care Provider [phone]- [phone] Conrado Iqbal MD Unavailable Encounter Details Date Type Department Care Team ([facility] Contact Info) Description 03/14/2023 Telephone [facility] Gynecology [address] [place] [address] Sadaf Perea, RN [facility] Social [...] Encounter - Sadaf Perea LPN - 03/14/2023 9:30 AM EDT Pt returned call regarding chemo appts. Gave her appts and answered all questions at this time. Pt verbalized understanding. Sadaf Perea LPN documented in this encounter Plan of Treatment Upcoming Encounters Date Type Department Care Team (Late st Contact Info) Description 08/05/2024 8:00 AM EST Office Visit [facility] Gynecology [address] [facility] [address] [place] [address] Penelope Carmona MD [address] [facility] [address] [facility] [address] [place] [address] 08/05/2024 9:30 AM EST Appointment [facility] [address] [place] [address] 02/26/2025 9:30 AM EDT Appointment [facility] [address] [facility] [address] [place] [address] 02/26/2025 10:30 AM EDT Office Visit [facility] [address] [facility], 2nd [place] [address] Berenice Resendez D, EMERGENCY DEPARTMENT DIRECTOR [address] [facility] [address] [facility] [address] [place] [address] documented as of this encounter Visit Diagnoses Not on filedocumented in this encounter Additional Health Concerns Assessment Noted Time A fall risk assessment has been complete d for the patient 01/09/2023 10:06 AM EDT A Body Mass Index follow-up plan has been documented for the patient 08/19/2022 9:30 AM EST documented as of this encounter Care Teams Personal Injury Paralegal Relationship Specialty Start Date End Date Flaquita Dorsey DO [address] [place] [address] PCP - General 12/14/21 Aliyah Valencia MD [address] [place], [place] [id number] Referring Physician 03/10/21 Conrado Iqbal MD [address] [place] [address] Service Attending Cardiology 08/19/22 documented as of this encounter
--- OUTSIDE RECORDS SUMMARY | 2024-07-10 11:57 | XMS_ITS | Encounter Summary ---
Author Organization [facility] Address [address] [place], [place] [address] Care Team Providers Care Community Health Director Name Role Phone Aliyah Valencia MD Unavailable [phone] Flaquita Dorsey DO Primary Care Provider [phone] Conrado Iqbal MD Unavailable Reason for Visit * Episode Based Medications (Routine) - Authorized Specialty Diagnoses / Procedures Referred By Contac t Referred To Contact Diagnoses Carcinoma of fallopian tube, unspecified laterality (CMS/HCC) Procedures Bevacizumab Every 21 Days Penelope Carmona MD [address] [place] [address] Phone: tel: fax: [facility] Infusion Clinic 2 [address] [place] [address] Phone: tel: Referral ID Status Reason Start Date Expiration Date V isits Requested Visits Authorized [id number] Authorized 03/13/2023 09/11/2024 1 26 Encounter Details Date Type Department Care Team (Latest Contact Info) Description 03/20/2023 7:44 AM EDT - 03/20/2023 11:59 PM EDT Hospital Encounter [facility] 2 [address] [place] [address] Carcinoma of fallopian tube, unspecified [...] Sign Reading Time Taken Comments Blood Pressure 121/73 03/20/2023 10:55 AM EDT Pulse 73 03/20/2023 10:55 AM EDT Temperature 37.4 ??C (99.3 ??F) 03/20/2023 7:45 AM ED T Respiratory Rate 18 03/20/2023 7:45 AM EDT Oxygen Saturation 95% 03/20/2023 7:45 AM EDT Inhaled Oxygen Concentration - - Weight 78 kg (171 lb 15.3 oz) 03/20/2023 7:45 AM EDT Height 160 cm (5' 3 ) 03/20/2023 7:45 AM EDT Body Mass Index 30.46 03/20/2023 7:45 AM EDT documented in this encounter Medications at Time of Discharge aspirin 81 MG chewable tablet Chew 1 tablet (81 mg) 1 (one) time each day. ergocalciferol (Vitamin D-2) 1.25 MG (18588 UT) capsule Take 1 capsule (50,000 Units) [...] time each day. 30 capsule 2 03/14/2023 3 Flaxseed, Linseed, (Flaxseed Oil) 1000 MG capsule Take 1 tablet by mouth 1 (one) time each day. 4 fluocinolone (Synalar) 0.01 % external solution fluocinolone 0.01 % topical solution APPLY TO THE AFFECTED AREA(S) ON SCALP BY TOPICAL ROUTE 2 TIMES PER DAY X 2 WEEKS PRN FLARES 3 gabapentin (Neurontin) 400 MG capsule Take 1 capsule (400 mg) by mouth 3 (three) times a day. 90 capsule 3 02/22/2023 4 levothyroxine (Synthroid, Levoxyl) 75 MCG tablet Take 80 mcg by mouth 1 (one) time each day before breakfast. 3 nitroglycerin (Nitrostat) 0.4 MG SL tablet every [...] (40 mg) by mouth every night. 4 documented as of this encounter Plan of Treatment Upcoming Encounters Date Type Department Care Team (Late st Contact Info) Description 08/05/2024 8:00 AM EST Office Visit [facility] Gynecology [address] [address] [address] [place] [address] Penelope Carmona MD 800 [facility] [address] [facility] [address] [place] [address] 08/05/2024 9:30 AM EST Appointment [facility] 1 [address] [place] [address] 02/26/2025 9:30 AM EDT Appointment [facility] Breast Care Center [facility] [address] [address] [address] [facility] [address] [place] [address] 02/26/2025 10:30 AM EDT Office Visit [facility] [address] [facility], 2nd [place] [address] Berenice Resendez, MOBILE APPLICATION ENGINEER [address] [facility] [address] [place] [address] documented as of this encounter Visit Diagnoses [...] Specific administration requirements refer to A14-065., On 03/20/23 at 1015, For 1 dose, NS 100 mLIndications:Carcinoma of fallopian tube, unspecified laterality (CMS/HCC) New Bag 03/20/2023 10:24 AM EDT 1,200 mg 356 mL/hr documented in this encounter Additional Health Concerns Assessment Noted Time A fall risk assessment has been complete d for the patient 03/20/2023 7:44 AM EDT A Body Mass Index follow-up plan has been documented for the patient 08/19/2022 9:30 AM EST documented as of this encounter Care Teams Community Health Director Relationship Specialty Start Date End Date Flaquita Dorsey DO [address] [place] [address] PCP - General 12/14/21 Aliyah Valencia MD [address] [place] [address] Referring Physician 03/10/21 Conrado Iqbal MD [address] [place] [address] Service Attending Cardiology 08/19/22 documented as of this encounter
--- OUTSIDE RECORDS SUMMARY | 2024-07-10 11:57 | XMS_ITS | Encounter Summary ---
Author Organization [facility] Address [address] [place], [place] [address] Care Team Providers Care Special Client Bus Driver Name Role Phone Aliyah Valencia MD Unavailable [phone] Flaquita Dorsey DO Primary Care Provider [phone] Conrado Iqbal MD Unavailable Reason for Visit * Reason Comments Chemotherapy * Episode Based Medications (Routine) - Authorized Specialty Diagnoses / Procedures Referred By Contac t Referred To Contact Diagnoses Carcinoma of fallopian tube, unspecified laterality (CMS/HCC) Procedures Bevacizumab Every 21 Days Penelope Carmona MD 800 [facility] Tam[address] Lai [facility] [address] [place] [address] Phone: tel: fax: [facility] Infusion Clinic 2 [address] [place] [address] Phone: tel: Referral ID Status Reason Start Date Expiration Date V isits Requested Visits Authorized [id number] Authorized 03/13/2023 09/11/2024 1 26 Encounter Details Date Type Department Care Team (Late st Contact Info) Description 04/10/2023 1:00 PM EDT Office Visit [facility] Gynecology [address] [address] [place] [address] Penelope Carmona MD 800 [facility] [address] [place] [address] Carcinoma of fallopian tube, unspecified laterality (CMS/HCC) (Primary Dx); Encounter for antineoplastic chemotherapy; Obesity (BMI 30-39.9); Neuropathy; Vaginal hemorrhage Social History Tobacco Use Types Packs/Day Years [...] Sign Reading Time Taken Comments Blood Pressure 116/73 04/10/2023 1:04 PM EDT Pulse 105 04/10/2023 1:04 PM EDT Temperature 36.6 ??C (97.8 ??F) 04/10/2023 1:04 PM ED T Respiratory Rate 15 04/10/2023 1:04 PM EDT Oxygen Saturation - - Inhaled Oxygen Concentration - - Weight 78 kg (171 lb 15.3 oz) 04/10/2023 1:04 PM EDT Height 160 cm (5' 3 ) 04/10/2023 1:04 PM EDT Body Mass Index 30.46 04/10/2023 1:04 PM EDT documented in this encounter Miscellaneous Notes * Progress Notes - Penelope Carmona MD - 04/10/2023 1:00 PM EDT Primary Care Provider: Flaquita [...] she underwent a left needle localized lumpectomy. [place] lymph node biopsy was not performed as [...] vagina). Initiated neoadjuvant chemo with carbo/Taxol per REHAB CARE ASSISTANT followed by BSO/Omentectomy and adjuvant Carbotaxol. Recurrence in March 2019. Treated with carbo initially followed by Olaparib. 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 She is currently off of therapy. She follows with Dr. Hutchins in [facility]. 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 Recurrence - First recurrence, port gamble sensitive - CT 04/10/19 with 3 cmlesion at cuff - Ca125 12 (from 8) - MTB discussion: recommend trial if progression on port gamble regimen or consider Parp for RAD 51 [...] ccy for choledocolithiasis 2019 (SGB) - Ca125: 61-8-8-7-7-9-8 - Started Parp inhibitor 09/2019 - Dose [...] 7.49 () 06/30/2021 Recurrence - Third recurrence, port gamble sensitive - CT 06/30/2021 shows vaginal cuff [...] disease seen 04/11/2022 Recurrence - Fourth recurrence, port gamble resistant - CT 04/11/2022 with increase in [...] 03/20/2023 - Chemotherapy - Avastin started 03/20/2023 Interval updates to history: Oncologic treatment history as described above reviewed today as well as PMH/PSH/Meds/All/SH/FH, with updates made as appropriate. Patient is here today for cycle 2 of Dana. Doing very well. No chest pain episodes since November. BP has been fine. No GRAJEDA. VB almost stopped. Has some diarrhea this am but has this intermittently care home. Mild slight numbness around nose and mouth opposite sides). Started after using antibiotic eye drops for pink eye. Stable peripheral neuropathy. PMH: h/o breast cancer x2, ?cervical cancer, [...] years ago, no drugs, retired, lives in [place]. FamHx: Father-prostate, MGma-colon. ROS: 14 pt ROS performed with pertinent positives and negatives as noted in HPI. ROS otherwise negative Objective Physical Exam: Vital Signs for this encounter: BSA: 1.86 meters squared Visit Vitals BP 116/73 Pulse 105 Temp 36.6 ??C (97.8 ??F) Resp 15 Ht 1.6 m (5' 3 ) Wt 78 kg (171 lb 15.3 oz) LMP 11/17/1981 (Approximate) BMI 30.46 kg/m?? OB Status Hysterectomy Smoking Status Former [...] followed by radiation for additional recurrence - [place] sensitive recurrence diagnosed 06/2021. - Completed 6 cycles of single agent Carbo 10/2021. - CT OSH 12/2021 JARED. - CT 04/11/2022 shows progression at cuff with no other disease - Caris testing requested - [place] resistant (5 month interval). Will not use [...] cath performed. No severe disease noted and alley worker reports ok to continue Dana. However, also [...] node. This is corroborated with bleeding symptoms although she declined vaginal exam today to confirm grossly. - Discussed options and would like to try adding back Dana as first line. Will add Dana back and continue oral Cytoxan. - Cycle 2 of Dana today. Continue Cytoxan. Cyclic Ca125 monitoring with imaging q 3-4 cycles. Cessation of bleeding is encouraging. Problem 2: Vaginal bleeding Assessment and plan 2: - Likely due to mass at cuff - Bleeding resolved after starting Dana/Cytoxan - CT after 4 cycles shows resolution of vaginal mass - Now bleeding recurrent and mass recurrent on CT - Declined exam today but per patient bleeding is light. - Plan to add back Dana and monitor closely - Now improved after cycle 1 of Dana. Monitor. Problem 3: Encounter for chemotherapy Assessment and plan 3: - Proceed with cycle 2 of Bevacizumab 15 mg/kg today. Plan q 21 cycles until intolerance or progression. No dose limiting toxicities identified. Pre chemo labs reviewed. Continue cyclic hematologic monitoring (CBC with diff, CMP). Also continue cyclic Ca125 tumor marker monitoring. Reviewed side effects to monitor for. Problem 4: History of left breast cancer [...] cards at - Seen by cardiology at [facility] and acute workup negative but diagnostic [...] and is accepting of the risks. - No CP since restarting Dana. Monitor Problem 7: Obesity Assessment and plan 7: - Body mass index is 30.46 kg/m??. - Affects all aspects of care Problem 8: History of cervical cancer Assessment and plan 8: - Distant history, care home survivor. Summary of time spent in team based care today includes the following activities performed by myself: review of prior documentation in preparation for visit, review of labs and any other test results, obtaining and reviewing medical history, appropriate focused physical exam, discussion of exam and/or test results, discussion of plan of care, lab orders, phlebotomy, and documentation MD ADRIANA Arana [facility] GYNECOLOGY 800 [facility] [address] [facility] [address] Dept: [phone] Dept Loc: [phone] * Progress Notes - Serena Xiong, PharmD - 04/10/2023 1:00 PM EDT Pharmacy Hematology/Oncology Treatment Plan [...] reviewed for: [x] Follow-Up Clinical Review Cycle 2 Day 1 [x] Follow-Up Clinical Review for [...] Wt: Wt Readings from Last 1 Encounters: 04/10/23 78 kg (171 lb 15.3 oz) Dosing Ht: 160 cm Dosing BSA: 1.88 m2 Recent Labs: OSH labs reviewed from 04/05/23 were appropriate for treatment: WBC: 4.1 10^3/uL ANC: 3.1 10^3/uL HGB: 13.1 g/dL HCT: 40.9 % PLT: 225 10^3/uL Glucose: mg/dL Na: 140 mmol/L K: 3.9 mmol/L Ca: 9.6 mg/dL AST: 27 U/L ALT: 21 U/L ALKP: 62 U/L Tbili: 0.4 mg/dL SCr: 0.9 mg/dL Lab Results Component Value Date WBC 4.81 03/13/2023 HGB 12.1 03/13/2023 HCT 36.8 03/13/2023 MCV 102 (H) 03/13/2023 PLT 226 03/13/2023 Lab Results Component Value Date GLUCOSE 136 (H) 03/13/2023 CALCIUM 8.9 03/13/2023 NA 137 03/13/2023 K 3.7 03/13/2023 CO2 25 03/13/2023 CL 99 03/13/2023 BUN 19 03/13/2023 CREATININE 0.78 03/13/2023 Lab Results Component Value Date ALT 9 03/13/2023 AST 17 03/13/2023 ALKPHOS 53 03/13/2023 BILITOT 0.3 03/13/2023 Lab Results Component Value Date NEUTROABS 3.56 03/13/2023 Lab Results Component Value Date MG 1.4 (L) 01/09/2023 No results found for: TSH Lab Results Component Value Date URINEPRO Trace (A) 03/20/2023 Vitals: Vitals: 04/10/23 1304 BP: 116/73 Pulse: 105 Resp: 15 Temp: 36.6 ??C (97.8 ??F) Other Relevant Monitorin08/05/22 ECHO: LVEF 53% Treatment Plan: Cyclophosphamide 50 mg daily Bevacizumab 15 mg/kg (1200 mg) IV D1 Every 21 days [x] No dose adjustments made Current Treatment Plan History: Oral Cyclophosphamide 50 mg daily (08/31/22 - present) Bevacizumab Cycle 1: 03/20/23 Cycle 2: 04/10/23 Prior Chemotherapy History: hormone therapy for prior [...] at that time. Pharmacist Attestation: Serena Xiong, [place]D, [facility] Hematology/Oncology Clinical Pharmacist documented in this encounter Plan of Treatment Upcoming Encounters Date Type Department Care Team (Late st Contact Info) Description 08/05/2024 8:00 AM EST Office Visit [facility] 800 [facility] [address] [place] [address] Penelope Carmona MD 800 [facility] Tamika Lai [facility] [address] [place] [address] 08/05/2024 9:30 AM EST Appointment [facility] 1 [address] [place] [address] 02/26/2025 9:30 AM EDT Appointment [facility] [address] [facility] [address] [place] [address] 02/26/2025 10:30 AM EDT Office Visit [facility] [address] [facility], 2nd [place] [address] Berenice Resendez, CELL ROOM OPERATOR 800 [facility] [address] Lai [facility] Kevin [address] [place] [address] documented as of this encounter Procedures Procedure Name Priority Date/Time Associated Diagnosis Comments CA 125 Routine 04/10/2023 1:44 PM EDT Carcinoma of fallopian tube, unspecified laterality (CMS/HCC) URINALYSIS, DIPSTICK Routine 03/20/2023 7:57 AM EDT Carcinoma of fallopian tube, unspecified laterality (CMS/HCC) documented in this encounter Results * CA 125 (04/10/2023 1:44 PM EDT) CA 125 7.38 <=38.00 U/mL 04/10/2023 3:19 PM EDT [facility] Blood Blood sample taken from central line / Unknown (Port) Long-term Catheter / Unknown 04/10/2023 1:44 PM EDT 04/10/2023 2:17 PM EDT Narrative [facility] - 04/10/2023 3:19 PM EDT Performed by Stephie electrochemiluminescent immunoassay. Results obtained with different test methods or kits cannot be used interchangeably. us Penelope Dodson MD LAB BLOOD ORDERABLES Final Result [facility] [address] [place] [address] * (ABNORMAL) Urinalysis, manual only (03/20/2023 7:57 AM EDT) Color, Urine Yellow LAB URINALYSIS - AUTOMATED METHOD 03/20/2023 9:53 AM EDT [facility] Clarity, Urine Clear 03/20/2023 9:53 AM EDT [facility] Spec Cortez, Urine 1.015 <=1.005 to >=1.030 LAB URINALYSIS - AUTOMATED METHOD 03/20/2023 9:53 AM EDT [facility] pH, Urine 5.5 4.5 to 8 LAB URINALYSIS - AUTOMATED METHOD 03/20/2023 9:53 AM EDT [facility] Protein, Urine Trace(A) Negative mg/dL LAB URINALYSIS - AUTOMATED METHOD 03/20/2023 9:53 AM EDT [facility] Glucose, Urine Negative Negative mg/dL LAB URINALYSIS - AUTOMATED METHOD 03/20/2023 9:53 AM EDT [facility] Ketones, Urine Trace(A) Negative mg/dL LAB URINALYSIS - AUTOMATED METHOD 03/20/2023 9:53 AM EDT [facility] Blood, Urine Large(A) Negative LAB URINALYSIS - AUTOMATED METHOD 03/20/2023 9:53 AM EDT [facility] Bilirubin, Urine Negative Negative LAB URINALYSIS - AUTOMATED METHOD 03/20/2023 9:53 AM EDT [facility] Urobilinogen, Urine 0.2 0.2 to 1.0 mg/dL LAB URINALYSIS - AUTOMATED METHOD 03/20/2023 9:53 AM EDT [facility] Leukocytes, Urine Trace(A) Negative LAB URINALYSIS - AUTOMATED METHOD 03/20/2023 9:53 AM EDT [facility] Nitrite, Urine Negative Negative LAB URINALYSIS - AUTOMATED METHOD 03/20/2023 9:53 AM EDT [facility] Urine Urine specimen obtained by clean catch procedure / Unknown Non-blood Collection / Unknown 03/20/2023 7:57 AM EDT 03/20/2023 8:04 AM EDT Penelope Dodson MD LAB URINE ORDERABLES Final Result Performing Organization Address City/State/[facility] Co de Phone Number [facility] [address] [place] [address] documented in this encounter Visit Diagnoses Diagnosis Carcinoma of fallopian tube, unspecified laterality (CMS/HCC)- Primary Encounter for antineoplastic chemotherapy Obesity (BMI 30-39.9) Neuropathy Mononeuritis of unspecified site Vaginal hemorrhage Other specified noninflammatory disorder of vagina documented in this encounter Additional Health Concerns Assessment Noted Time A fall risk assessment has been complete d for the patient 04/10/2023 1:46 PM EDT A Body Mass Index follow-up plan has been documented for the patient 08/19/2022 9:30 AM EST documented as of this encounter Care Teams Special Client Bus Driver Relationship Specialty Start Date End Date Flaquita Dorsey, [address] [place], [place] [phone] PCP - General 12/14/21 Aliyah Valencia MD [address] [place], [place] [address] Referring Physician 03/10/21 Conrado Iqbal MD [address] [place] [address] Service Attending Cardiology 08/19/22 documented as of this encounter
--- OUTSIDE RECORDS SUMMARY | 2024-07-10 11:57 | XMS_ITS | Encounter Summary ---
Author Organization [facility] Address [facility] [address] [id number] Care Team Providers Care Advertising Agent Name Role Phone Aliyah Valencia MD Unavailable [phone] Flaquita Dorsey DO Primary Care Provider [phone] Conrado Iqbal MD Unavailable Reason for Visit * Episode Based Medications (Routine) - Authorized Specialty Diagnoses / Procedures Referred By Contac t Referred To Contact Diagnoses Carcinoma of fallopian tube, unspecified laterality (CMS/HCC) Procedures Bevacizumab Every 21 Days Penelope Carmona MD [address] [address] Phone: tel: fax: [facility] Infusion Clinic 2 [address] [place] [address] Phone: tel: Referral ID Status Reason Start Date Expiration Date V isits Requested Visits Authorized [id number] Authorized 03/13/2023 09/11/2024 1 26 Encounter Details Date Type Department Care Team (Latest Contact Info) Description 04/10/2023 1:45 PM EDT - 04/10/2023 11:59 PM EDT Hospital Encounter [facility] 1 [address] [place] [address] Carcinoma of fallopian tube, unspecified [...] Sign Reading Time Taken Comments Blood Pressure 110/71 04/10/2023 2:50 PM EDT Pulse 80 04/10/2023 2:50 PM EDT Temperature 36.7 ??C (98 ??F) 04/10/2023 1:46 PM EDT Respiratory Rate 18 04/10/2023 1:46 PM EDT Oxygen Saturation 96% 04/10/2023 1:46 PM EDT Inhaled Oxygen Concentration - - Weight 77.7 kg (171 lb 4.8 oz) 04/10/2023 1:46 P M EDT Height 160 cm (5' 3 ) 04/10/2023 1:46 PM EDT Body Mass Index 30.34 04/10/2023 1:46 PM EDT documented in this encounter Medications at Time of Discharge aspirin 81 MG chewable tablet Chew 1 tablet (81 mg) 1 (one) time each day. ergocalciferol (Vitamin D-2) 1.25 MG (87998 UT) capsule Take 1 capsule (50,000 Units) [...] AM EST Office Visit [facility] [address] [address] [address] [place] [address] Penelope Carmona MD 800 [facility] [address] [facility] [address] [place] [address] 08/05/2024 9:30 AM EST Appointment [facility] 1 [address] [place] [address] 02/26/2025 9:30 AM EDT Appointment [facility] [address] [address] [address] [facility] 800 [place] [address] 02/26/2025 10:30 AM EDT Office Visit [facility] [address] [facility], 2nd [place] [address] Berenice Resendez, TECHNOLOGY INSTRUCTOR 800 [facility] [address] [place] [address] documented as of this encounter Visit Diagnoses [...] Specific administration requirements refer to [id number]., On 04/10/23 at 1415, For 1 dose, NS 100 mLIndications:Carcinoma of fallopian tube, unspecified laterality (CMS/HCC) New Bag 04/10/2023 2:25 PM EDT 1,200 mg 356 mL/hr documented in this encounter Additional Health Concerns Assessment Noted Time A fall risk assessment has been complete d for the patient 04/10/2023 1:46 PM EDT A Body Mass Index follow-up plan has been documented for the patient 08/19/2022 9:30 AM EST documented as of this encounter Care Teams Advertising Agent Relationship Specialty Start Date End Date Flaquita Dorsey DO [address] [place] [address] PCP - General 12/14/21 Aliyah Valencia MD [address] [place] [address] Referring Physician 03/10/21 Conrado Iqbal MD NPI: [id number] [place] [id number] Service Attending Cardiology 08/19/22 documented as of this encounter
--- OUTSIDE RECORDS SUMMARY | 2024-07-10 11:57 | XMS_ITS | Encounter Summary ---
Author Organization [facility] Address [address] [place] [address] Care Team Providers Care Gamb Cutter Name Role Phone Aliyah Valencia MD Unavailable [phone] Flaquita Dorsey DO Primary Care Provider [phone]- [phone] Conrado Iqbal MD Unavailable Encounter Details Date Type Department Care Team (Latest Contact Info) Description 03/20/2023 Travel Social History Tobacco Use Types Packs/Day [...] AM EST Office Visit [facility] 800 [facility] [address] [place] [address] Penelope Carmona MD 800 [facility] [address] [place] [address] 08/05/2024 9:30 AM EST Appointment [facility] 1 [address] [place] [address] 02/26/2025 9:30 AM EDT Appointment [facility] [address] [place] [address] 02/26/2025 10:30 AM EDT Office Visit [facility] [address] [facility], 2nd [place] [address] Berenice Resendez D, DISH UP PERSON 800 [facility] [address] [place] [address] documented as of this encounter Visit Diagnoses Not on filedocumented in this encounter Additional Health Concerns Assessment Noted Time A fall risk assessment has been complete d for the patient 03/20/2023 7:44 AM EDT A Body Mass Index follow-up plan has been documented for the patient 08/19/2022 9:30 AM EST documented as of this encounter Care Teams Gamb Cutter Relationship Specialty Start Date End Date Flaquita Dorsey DO [address] [place] [address] PCP - General 12/14/21 Aliyah Valencia MD [address] [place] [address] Referring Physician 03/10/21 Conrado Iqbal MD [address] [place] [address] Service Attending Cardiology 08/19/22 documented as of this encounter
--- OUTSIDE RECORDS SUMMARY | 2024-07-10 11:57 | XMS_ITS | Encounter Summary ---
Author Organization [facility] Address [address] [place], [place] [id number] Care Team Providers Care Blood Typer Name Role Phone Aliyah Valencia MD Unavailable [phone] Flaquita Dorsey DO Primary Care Provider [phone] Conrado Iqbal MD Unavailable Encounter Details Date Type Department Care Team (Late st Contact Info) Description 06/16/2023 Telephone [facility] [address] [place] [address] Mari Hayes, PharmD [facility] [address] [place] [address] Social History Tobacco Use Types Packs/Day Years [...] encounter Miscellaneous Notes * Telephone Encounter - Mari Hayes, PharmD - 06/16/2023 1:39 PM EST [facility] Specialty Medication Follow Up Care Plan Daniela John is a 77 y.o. female assessed via phone for continuation of drug therapy cyclophosphamide for diagnosis recurrent fallopian tube cancer. Chart Review Calcium, Morphine, Shellfish allergy, and Sulfacetamide Current Outpatient Medications Medication Instructions aspirin 81 mg, Oral, Daily biotin 1,000 mcg, Oral, Daily cyclophosphamide (CYTOXAN) 50 mg, Oral, Daily ergocalciferol (VITAMIN D-2) 50,000 Units, Oral, Weekly Flaxseed, Linseed, (Flaxseed Oil) 1000 MG capsule Oral furosemide (LASIX) 20 mg, Oral, Daily gabapentin (NEURONTIN) 400 mg, Oral, 3 times daily levothyroxine (SYNTHROID, LEVOXYL) 80 mcg, Oral, Daily before breakfast lisinopril 5 mg, Oral, Daily nitroglycerin (Nitrostat) 0.4 MG SL tablet Every 5 min PRN potassium chloride ER (Micro-K) 10 MEQ ER capsule 10 mEq, Oral, ZZ 2 times daily RT prochlorperazine (COMPAZINE) 10 mg, Oral, Every 6 hours PRN simvastatin (ZOCOR) 40 mg, Oral, Nightly Patient Active Problem List Diagnosis Malignant neoplasm [...] preservative free 08/12/2014 Influenza, trivalent, adjuvanted 05/26/2017 [employer] COVID-19 Vaccine (Purple Cap) 12+ 09/09/2020, 10/07/2020 Pneumococcal Conjugate PCV 13 08/12/2014 Pneumococcal Polysaccharide PPV23 09/08/2015 Selected lab results: Lab Results Component Value Date WBC 5.28 05/08/2023 HGB 13.5 05/08/2023 HCT 40.3 05/08/2023 PLT 217 05/08/2023 , Lab Results Component Value Date NA 136 05/08/2023 K 3.8 05/08/2023 CL 100 05/08/2023 CREATININE 0.94 05/08/2023 BUN 25 (H) 05/08/2023 GLUCOSE 104 (H) 05/08/2023 CALCIUM 9.6 05/08/2023 CO2 23 05/08/2023 , and Lab Results Component Value Date ALBUMIN 4.2 05/08/2023 PROT 6.9 12/28/2022 ALKPHOS 69 05/08/2023 ALT 23 05/08/2023 AST 23 05/08/2023 BILITOT 0.4 05/08/2023 Is this an infusion therapy? No Patient is treatment: Experienced: Previous therapies include carboplatin/Taxol; Lynparza Reasons for previous treatment failure therapy change Is patient of child bearing potential? No Disease specific labs or assessments: 05/29/23 CA-125 6.50 U/mL Does patient have an active infection? None Drug Review Date of initiation: 04/18/2022 Is the patient taking concomitant therapy for this disease? Yes: bevacizumab IV every 21 days Drug assessment : is this the appropriate drug/dose/route/frequency/duration? Yes Drug utilization review Drug-disease precautions: No clinically significant issues identified Drug-drug interactions: No clinically significant issues identified Drug-patient precautions: No clinically significant issues identified Education and Counseling Medication specific education provided: N/A Monitoring Questions Patient reported outcomes: Do you [...] very poor, how are you feeling overall? 6 PREVIOUS quality of life: 6 Patient Management Assessment scores must be reviewed by a clinician with each Care Plan. Scores of2 or lower must be documented in a Clinical Intervention Care Plan. CURRENT patient management score: 5-Completely Satisfied PREVIOUS patient management score: 5-Completely Satisfied Missed doses: Have you missed a dose in the last 4 weeks? No Patient reported response to therapy In regards to your condition, how are you feeling compared to the last time we spoke? No change Disease symptoms assessment Did the patient seek the following urgent care in the last 4 weeks? No Current adverse events/side effect the patient is experiencing: some diarrhea; using Imodium, whichcauses constipation. Will discuss with provider at next office visit. If patient is experiencing adverse event or [...] of care in regards to specialty medication cyclophosphamide for diagnosis recurrent fallopian tube cancer. Assessment: patient tolerating cyclophosphamide well. She experiences occasional diarrhea, for which she takes Imodium. However, patient states Imodium then causes her to become constipated. Plans todiscuss bowel regimen with provider at office visit on 06/19/23. Plan/Patient specific needs: possible regimen to manage diarrhea/constipation. Patient/caregiver participated in the development and expressed [...] more often if there is a need. Mari Hayes, Allison 06/16/2023 1:40 PM documented in this encounter Plan of Treatment Upcoming Encounters Date Type Department Care Team ([facility] st Contact Info) Description 08/05/2024 8:00 AM EST Office Visit [facility] Gynecology [address] [facility] [address] [place] [address] Penelope Carmona MD [address] [facility] [address] [facility] [address] [place] [address] 08/05/2024 9:30 AM EST Appointment [facility] [address] [place] [address] 02/26/2025 9:30 AM EDT Appointment [facility] [address] [facility] [address] [place] [address] 02/26/2025 10:30 AM EDT Office Visit [facility] [address] [facility] [place] [address] Berenice Resendez D, [employer] [address] [facility] [address] [place] [phone] documented as of this encounter Visit Diagnoses Not on filedocumented in this encounter Additional Health Concerns Assessment Noted Time A fall risk assessment has been complete d for the patient 05/29/2023 2:04 PM EDT A Body Mass Index follow-up plan has been documented for the patient 08/19/2022 9:30 AM EST documented as of this encounter Care Teams Blood Typer Relationship Specialty Start Date End Date Flaquita Dorsey, [address] [place], [place] [id number] PCP - General 12/14/21 Aliyah Valencia MD [address] [place], [place] [id number] Referring Physician 03/10/21 Conrado Iqbal MD [address] [place] [address] Service Attending Cardiology 08/19/22 documented as of this encounter
--- OUTSIDE RECORDS SUMMARY | 2024-07-10 11:57 | XMS_ITS | Encounter Summary ---
Author Organization [facility] Address [address] [place], [place] [address] Care Team Providers Care Correctional Counselor/Case Manager Name Role Phone Aliyah Valencia MD Unavailable [phone] Flaquita Dorsey DO Primary Care Provider [phone] Conrado Iqbal MD Unavailable Reason for Visit * Episode Based Medications (Routine) - Authorized Specialty Diagnoses / Procedures Referred By Contac t Referred To Contact Diagnoses Carcinoma of fallopian tube, unspecified laterality (CMS/HCC) Procedures Bevacizumab Every 21 Days Penelope Carmona MD [address] [place] [phone] Phone: tel: fax: [facility] [address] [place] [address] Phone: tel: Referral ID Status Reason Start Date Expiration Date V isits Requested Visits Authorized [id number] Authorized 03/13/2023 09/11/2024 1 26 Encounter Details Date Type Department Care Team (Latest Contact Info) Description 05/29/2023 2:02 PM EDT - 05/29/2023 11:59 PM EDT Hospital Encounter [facility] [address] [place] [address] Carcinoma of fallopian tube, unspecified [...] Sign Reading Time Taken Comments Blood Pressure 135/78 05/29/2023 3:23 PM EDT Pulse 88 05/29/2023 3:23 PM EDT Temperature 36.4 ??C (97.5 ??F) 05/29/2023 2:03 PM ED T Respiratory Rate 18 05/29/2023 2:03 PM EDT Oxygen Saturation 95% 05/29/2023 2:03 PM EDT Inhaled Oxygen Concentration - - Weight 78.7 kg (173 lb 8 oz) 05/29/2023 2:03 PM EDT Height 160 cm (5' 3 ) 05/29/2023 2:03 PM EDT Body Mass Index 30.73 05/29/2023 2:03 PM EDT documented in this encounter Medications at Time of Discharge aspirin 81 MG chewable tablet Chew 1 tablet (81 mg) 1 (one) time each day. ergocalciferol (Vitamin D-2) 1.25 MG (37225 UT) capsule Take 1 capsule (50,000 Units) [...] EST Office Visit [facility] [address] [facility] [address] [place] [phone] Penelope Carmona MD [address] [facility] [address] [facility] [address] [place] [address] 08/05/2024 9:30 AM EST Appointment [facility] [address] [place] [phone] 02/26/2025 9:30 AM EDT Appointment [facility] [address] [facility] [address] [place] [address] 02/26/2025 10:30 AM EDT Office Visit [facility] [address] [facility] [place] [address] Berenice Resendez, [employer] [address] [place] [address] documented as of this encounter Visit Diagnoses [...] Specific administration requirements refer to [id number]., On 05/29/23 at 1430, For 1 dose, NS 100 mLIndications:Carcinoma of fallopian tube, unspecified laterality (CMS/HCC) New Bag 05/29/2023 2:51 PM EDT 1,200 mg 356 mL/hr documented in this encounter Additional Health Concerns Assessment Noted Time A fall risk assessment has been complete d for the patient 05/29/2023 2:04 PM EDT A Body Mass Index follow-up plan has been documented for the patient 08/19/2022 9:30 AM EST documented as of this encounter Care Teams Correctional Counselor/Case Manager Relationship Specialty Start Date End Date Flaquita Dorsey DO [address] [place] [address] PCP - General 12/14/21 Aliyah Valencia MD [address] [place] [address] Referring Physician 03/10/21 Conrado Iqbal MD [address] [place] [address] Service Attending Cardiology 08/19/22 documented as of this encounter
--- OUTSIDE RECORDS SUMMARY | 2024-07-10 11:58 | XMS_ITS | Encounter Summary ---
Author Organization Healthcare Address [address] [id number] Care Team Providers Care Systems Tester Name Role Phone Aliyah Valencia MD Unavailable [phone] Flaquita Dorsey DO Primary Care Provider [phone] Conrado Iqbal MD Unavailable Reason for Visit * Reason Comments Follow-up * Episode Based Medications (Routine) - Authorized Specialty Diagnoses / Procedures Referred By Contac t Referred To Contact Diagnoses Malignant neoplasm of left breast in female, estrogen receptor positive, unspecified site of breast (CMS/HCC) Osteopenia, unspecified location History of aromatase inhibitor therapy Procedures DENOSUMAB Ely Oseguera, FUEL TANK SEALER AND TESTER [address] [facility] [address] [place] [address] Phone: tel: fax: [facility] Infusion Clinic [address] [place] [address] Phone: tel: Referral ID Status Reason Start Date Expiration Date V isits Requested Visits Authorized [id number] Authorized 12/11/2020 07/02/2025 1 11 Encounter Details Date Type Department Care Team (Late st Contact Info) Description 01/09/2023 10:00 AM EDT Office Visit [facility] Gynecology [address] [facility] [place] [address] Penny Carmona MD [address] [place] [address] Carcinoma of fallopian tube, unspecified laterality (CMS/HCC) (Primary Dx); Neuropathy; Osteopenia, unspecified location; Intermittent chest pain; Obesity (BMI 30-39.9); History of aromatase inhibitor therapy Social History Tobacco Use Types Packs/Day Years [...] Sign Reading Time Taken Comments Blood Pressure 118/75 01/09/2023 10:04 AM EDT Pulse 94 01/09/2023 10:04 AM EDT Temperature 37 ??C (98.6 ??F) 01/09/2023 10: 04 AM EDT Respiratory Rate 12 01/09/2023 10:0 4 AM EDT Oxygen Saturation - - Inhaled Oxygen Concentration - - Weight 78.9 kg (173 lb 15.1 oz) 023 10:04 AM EDT Height 160 cm (5' 3 ) 01/09/2023 10:04 AM EDT Body Mass Index 30.81 01/09/2023 10:04 AM EDT documented in this encounter Miscellaneous Notes * Progress Notes - Penny Carmona MD - 01/09/2023 10:00 AM EDT Primary Care Provider: Flaquita Dorsey DO [...] underwent a left needle localized lumpectomy. [place] lymph node biopsy was not performed as [...] vagina). Initiated neoadjuvant chemo with carbo/Taxol per PLANNING MANAGEMENT IT SPECIALIST followed by BSO/Omentectomy and adjuvant Carbotaxol. Recurrence in March 2019. Treated with carbo initially followed by Olaparib. 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 She is currently off of therapy. She follows with Dr. Hutchins in [place]. 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 Recurrence - First recurrence, hughes sensitive - CT 04/10/19 with 3 cmlesion at cuff - Ca125 12 (from 8) - MTB discussion: recommend trial if progression on hughes regimen or consider Parp for RAD 51 [...] ccy for choledocolithiasis 2019 (SGB) - Ca125: 48-3-9-7-7-9-8 - Started Parp inhibitor 09/2019 - Dose [...] concerning findings - Most recent Ca125 7.49 (80141) 06/30/2021 Recurrence - Third recurrence, hughes sensitive - CT 06/30/2021 shows vaginal cuff [...] disease seen 04/11/2022 Recurrence - Fourth recurrence, hughes resistant - CT 04/11/2022 with increase in [...] TP53, MMR proficient, MSI stable, TMB low Interval updates to history: Oncologic treatment history as described above reviewed today as well as PMH/PSH/Meds/All/SH/FH, with updates made as appropriate. Patient is here today to monitor toxicity of oral Cytoxan. She reports not feeling very well today, but this has not been the case for most days. Today she has some stomach upset and a headache. Denies cold symptoms. No VB. No pelvic pain. Has been having some intermittent urinary leakage but still empties bladder ok when she intentionally goes to the restroom. BM's have been normal but are a bit loose today. Had one CP episode back on 12/15. Was at family member's graduation and had to leave. Was advised to go to ED and have testing again but she declined since she has had extensive recent cardiac workup and her symptoms resolvedon their own quickly. She indicates she is aware of the risks of heart disease, but is accepting ofconsequences of an untreated cardiac issue and strongly desires to avoid significant further cardiac workups or interventions. She was supposed to follow up with [facility] in January and she canceled and this has been moved to February. She plans to call them to discuss her preferences PMH: h/o breast cancer x2, ?cervical cancer, [...] years ago, no drugs, retired, [place]. FamHx: Father-prostate, MGma-colon. ROS: 14 pt ROS performed with pertinent positives and negatives as noted in HPI. ROS otherwise negative Objective Physical Exam: Vital Signs for this encounter: BSA: 1.87 meters squared Visit Vitals BP 118/75 Pulse 94 Temp 37 ??C (98.6 ??F) Resp 12 Ht 1.6 m (5' 3 ) Wt 78.9 kg (173 lb 15.1 oz) LMP 11/17/1981 (Approximate) BMI 30.81 kg/m?? OB Status Hysterectomy Smoking Status Former BSA 1.87 m?? Physical Exam Vitals and nursing note reviewed. Constitutional: General: She is not in acute distress. Appearance: Normal appearance. She is well-developed. She is obese. She is not ill-appearing or diaphoretic. HENT: Head: Normocephalic and atraumatic. Mouth/Throat: Mouth: Mucous membranes are moist. Eyes: General: No scleral icterus. Cardiovascular: Rate and Rhythm: Normal rate. Pulmonary: Effort: Pulmonary effort is normal. No respiratory distress. Abdominal: General: There is no distension. Skin: General: Skin is warm. Coloration: Skin is not jaundiced. Findings: No bruising. Neurological: Mental Status: She is alert and oriented to person, place, and time. Mental status is at baseline. Psychiatric: Mood and Affect: Mood normal. Behavior: Behavior normal. Thought Content: Thought content normal. Judgment: Judgment normal. Performance Status: Asymptomatic PS= 0 Results: CBC WBC 4.88 Hgb 12.4 PLT 233 HCT 37.6 Lab Results Component Value Date NEUTROABS 3.30 01/09/2023 BASIC METABOLIC PANEL Na 135 Cl 99 BUN 23 Gluc 85 K 3.8 Co2 25 Creat 0.77 LIVER FUNCTION TESTING Tot Prot 7.0 AST 16 Tot bili 0.4 ALT 12 Alkphos 71 Ca 9.8 Mg 1.4 Phos No results found for requested labs within last 365 days. === 11/02/22 === CT ABDOMEN PELVIS W IV CONTRAST - Narrative - Exam/Procedure: CT CHEST W IV CONTRAST, CT ABDOMEN PELVIS W IV CONTRAST [place], [id number] CLINICAL INDICATION: Surveillance of serous fallopian tube cancer. Most recent study showed no evidence of disease. TECHNIQUE: Multiple axial CT images were obtained from thoracic inlet through pubic symphysis following administration of IV contrast, Omnipaque 300, 100 mL. Reformatted images of the abdomen and pelvis in the coronal and sagittal planes were generated from the axial data set to facilitate diagnostic accuracy. Total DLP (Dose-Length Product): 422.68 mGy.cm. Please note: The reported value represents the total of one or more individual components during the CT acquisition on this date and at this time, and as such, the same value may appear in more than one CT report depending on the interpreting/reporting physicians. COMPARISON: CT chest abdomen pelvis with IV contrast 08/10/2022 FINDINGS: A detailed of the chest and at the Chest: Lymph Nodes: No enlarged or new suspicious lymph nodes. Thyroid: Similar appearance when compared to prior. No interval increase in size of previously seenlesions. Cardiovascular: Similar positioning of right internal jugular central venous port catheter. Coronary arterial vascular calcifications are present. No pericardial effusion. Lungs: No new suspicious pulmonary nodules. No significant change in small right lung subcentimeternodules. Similar appearance of scarring within the left lung base. Pleura: No pleural effusion or pleural thickening. Musculoskeletal and Body Wall: mild degenerative changes of the spine. No acute or aggressive bony lesions. No significant change in left breast soft tissue asymmetry with surgical clips. Abdomen/Pelvis: Liver, Gallbladder, Biliary Tract: Focal hepatic lesions. The gallbladder is surgically absent, with surgical clips within the gallbladder fossa. No significant biliary ductal dilation. Spleen: Unremarkable. No splenomegaly. Pancreas: Similar appearance of diffuse fatty infiltration. No suspicious pancreatic lesions. Adrenal Glands: No significant change of indeterminate right adrenal nodule. Similar appearance of left adrenal myelolipoma. Kidneys: Similar appearance of this right renal superior pole angiomyolipoma and small enhancing lesion, which are unchanged in size. Lymph Nodes: No enlarged lymph nodes. Vasculature: Stable appearance of calcified or noncalcified atherosclerotic plaque of the abdominalaorta. GI Tract: Small large bowel wall thickening or dilation. Appendix is not visualized. The appearanceof large descending duodenal diverticula. Mesentery/Peritoneum: No mesenteric or peritoneal masses or nodules. Pelvic Viscera: Status post hysterectomy. There are no suspicious masses within the pelvis to suggest local recurrence. Stable appearance of the vaginal cuff. Unremarkable urinary bladder. Free Fluid: No ascites. Musculoskeletal and Body Wall: Similar-appearing ventral hernia containing both large and small bowel, which has not increased in size. - Impression - Chest: No evidence of metastatic disease. Abdomen/pelvis: No recurrence or metastatic disease. Indeterminate right adrenal nodule is not significantly changed. CRITICAL RESULT: No. COMMUNICATION: Per this written report. By electronically signing this report, I, the attending physician, attest that I have personally reviewed the images/data for the above examination(s) and agree with the final edited report. 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 - Completed 6 cycles of single agent Carbo 10/2021. - CT OSH 12/2021 JARED. - CT 04/11/2022 shows progression at cuff with no other disease - Caris testing requested - Rampart resistant (5 month interval). Will not use [...] cath performed. No severe disease noted and marketing communications assistant reports ok to continue Dana. However, also [...] continueBev. Patient elected to stop Dana. - Will continue oral Cytoxan with visits for toxicity and efficacy monitoring q 2 months. Will continue lab checks q month. - CT 11/02/2022 JARED. - Continuing to do well on oral Cytoxan with no major toxicities. check Ca125 today and RTC [address] Problem 2: Vaginal bleeding - resolved currently Assessment and plan 2: - Likely due to mass at cuff - Bleeding resolved after starting Dana/Cytoxan and now resolved - CT after 4 cycles shows resolution of vaginal mass - Monitor for recurrence Problem 3: Cervical cancer Assessment and plan 3: - Distant history, halfway survivor. Problem 4: History of left breast cancer x 2 Assessment and plan 4: - s/p anastrazole. No current signs of disease. Follows up with breast clinic (recent visit JARED) Problem 5: Neuropathy Assessment and plan 5: - Treatment related. - Will not use Taxol again. - Gabapentin to 400 mg TID, this dose is helping - continue Problem 6: h/o syncope episodes and carotid stenosis, now with chest tightness over 2021, in July 2022, 10/28/2022, 12/15/2022 Assessment and plan 6: - Has been followed in past with cards at - Seen by cardiology at [facility] and acute workup negative but diagnostic cath recommended. Patient declined and uncertain about necessity of this - In the past held Dana while assessing her cardiac risk - Had second opinion with oncocardiology 06/27/2022 - pain likely related to CAD. - Repeat chest discomfort episode spring 2022. Heart cath done and no stenting required. - Ok to continue Dana per cards, but risks may outweigh benefits since last CT JARED - Stopped Dana 07/2022 and continued oral Cytoxan alone - Isolated CP episodes 09/2022 and 11/2022. Patient strongly desires to avoid significant cardiac interventions and is accepting of the risks. She plans to discuss follow up with cardiology (currently scheduled for 02/2023) and her preferences on this issue Problem 7: Obesity Assessment and plan 7: - Body mass index is 30.81 kg/m??. - Affects all aspects of care Problem 8: Bone health Assessment and plan 8: - PCP (Dr. Flaquita Dorsey at [facility]) would like for her to get back on Prolia. - Prolia injection today Summary of time spent in team based care today includes the following activities performed by myself: review of prior documentation in preparation for visit, review of labs and any other test results, obtaining and reviewing medical history, appropriate focused physical exam, discussion of exam and/or test results, discussion of plan of care, lab orders, phlebotomy, chemo related decision making and refill of oral Cytoxan, Prolia order MD [facility] [address] [facility] [address] [facility] [address] Dept: [phone] Dept Loc: [phone] * Progress Notes - Yessy Greene, PharmD - 01/09/2023 10:00 AM EDT Pharmacy Hematology/Oncology Treatment Plan Note Daniela John is a 77 y.o. 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 Cancer Staging Carcinoma of fallopian tube (CMS/HCC) Staging form: Ovary, Fallopian Tube, and Primary Peritoneal Carcinoma, AJCC 8th Edition - Pathologic stage from 03/15/2018: FIGO Stage IIA, calculated as Stage Unknown (pT2a, pNX, cM0) - Signed by Penny Dodson MD on 03/31/2021 Malignant neoplasm of left [...] on 06/19/2021 Study Patient: No Treatment Protocol: Cyclophosphamide continuous PO therapy Treatment Plan reviewed for: [x] Follow-Up Clinical Review for Continuous Oral Therapy Interval History: Ms. Conway presents for follow-up today. She reports doing well with PO cyclophosphamide. She does have some intermittent chest pain but follows with cardiology and would not like an additional intervention other than monitoring. Will continue with therapy as is at this time. Labs pending from today. OSH labs from 12/28 entered into chart. Dosing Wt: 84 kg Today's Wt: Wt Readings from Last 1 Encounters: 01/09/23 78.9 kg (173 lb 15.1 oz) Dosing Ht: 160 cm Dosing BSA: 1.88 m2 Recent Labs: Lab Results Component Value Date HCT 40.9 12/28/2022 HGB 12.70 12/28/2022 MCV 106.9 12/28/2022 PLT 271 12/28/2022 WBC 4.3 12/28/2022 Lab Results Component Value Date BUN 18 12/28/2022 CALCIUM 9.8 12/28/2022 CL 100 12/28/2022 CO2 29 12/28/2022 CREATININE 0.8 12/28/2022 GLUCOSE 102 12/28/2022 K 3.7 12/28/2022 NA 138 12/28/2022 Lab Results Component Value Date ALKPHOS 80 12/28/2022 ALT 22 12/28/2022 AST 32 12/28/2022 BILITOT 0.5 12/28/2022 Lab Results Component Value Date NEUTROABS 3.1 12/28/2022 Lab Results Component Value Date MG 1.3 (L) 11/17/2021 No results found for: TSH Lab Results Component Value Date URINEPRO Negative 11/02/2022 Vitals: Vitals: 01/09/23 1004 BP: 118/75 Pulse: 94 Resp: 12 Temp: 37 ??C (98.6 ??F) Other Relevant Monitoring: None Treatment Plan: Cyclophosphamide 50 mg PO daily [x] No dose adjustments made Current Treatment Plan History: Oral Cyclophosphamide continuously (08/31/22 - present) Prior Chemotherapy History: hormone therapy for prior [...] #3: 06/06/22 #4: 07/20/22 #5: 08/10/22 Assessment/Plan: PO Cyclophosphamide Rx Sent to: [facility] Refills due: February 2023 Patient will return to clinic in 2 months. Will follow-up at that time. Pharmacist Attestation: Yessy Greene PharmD PGY2 Hematology/Oncology Service Counselor Cosigned by Aliyah Saravia at 01/09/2023 11:54 AM EDT Associated attestation - Aliyah Saravia PharmD - 01/09/2023 11:54 AM EDT I saw and evaluated the patient with the resident/fellow. I discussed the case with the resident/fellow and agree with the findings and plan as documented. documented in this encounter Plan of Treatment Upcoming Encounters Date Type Department Care Team (Late st Contact Info) Description 08/05/2024 8:00 AM EST Office Visit [facility]ne[facility] [address] [address] [address] [place] [address] Penny Carmona MD 800 [facility] [address] [facility] [address] [place] [address] 08/05/2024 9:30 AM EST Appointment [facility] Infusion [facility] [address] [place] [address] 02/26/2025 9:30 AM EDT Appointment [facility] [address] [facility] [address] [place] [address] 02/26/2025 10:30 AM EDT Office Visit [facility] Breast Care Center [address] [place] [address] Berenice Resendez, FUEL TANK SEALER AND TESTER [address] [place] [address] documented as of this encounter Procedures Procedure Name Priority Date/Time Associated Diagnosis Comments CBC WITH AUTO DIFFERENTIAL Routine 01/09/2023 11:28 AM EDT History of aromatase inhibitor therapy CA 125 Routine 01/09/2023 11:28 AM EDT History of aromatase inhibitor therapy MAGNESIUM, PLASMA Routine 01/09/2023 11: 28 AM EDT History of aromatase inhibitor therapy COMPREHENSIVE METABOLIC PANEL, PLASMA Routine 01/09/2023 11:28 AM EDT History of aromatase inhibitor therapy VITAMIN D 25 HYDROXY Routine 12/28/2022 CBC WITH AUTO DIFFERENTIAL Routine 12/28/2022 COMPREHENSIVE METABOLIC PANEL, PLASMA Routine 12/28/2022 documented in this encounter Results * CA 125 (01/09/2023 11:28 AM EDT) CA 125 7.11 <=38.00 U/mL 01/09/2023 12:56 PM EDT [facility] Blood Blood sample taken from central line / Unknown (Port) Long-term Catheter / Unknown 01/09/2023 11:28 AM EDT 01/09/2023 12:20 PM EDT Narrative [facility] - 01/09/2023 12:56 PM EDT Performed by Stephie electrochemiluminescent immunoassay. Results obtained with different test methods or kits cannot be used interchangeably. us Penny Dodson MD LAB BLOOD ORDERABLES Final Result [facility] [address] [place] [address] * (ABNORMAL) Magnesium (01/09/2023 11:28 AM EDT) Magnesium, Plasma 1.4(L) 1.9 - 2.4 mg/dL 01/09/2023 12:52 PM EDT [facility] Blood Blood sample taken from central line / Unknown (Port) Long-term Catheter / Unknown 01/09/2023 11:28 AM EDT 01/09/2023 12:20 PM EDT Penny Dodson MD LAB BLOOD ORDERABLES Final Result [facility] [address] [place] [address] * (ABNORMAL) Comprehensive metabolic panel (01/09/2023 11:28 AM EDT) Glucose, Plasma 85 74 - 99 mg/dL 01/09/2023 12:52 PM EDT [facility] BUN, Plasma 23 8 - 23 mg/dL 01/09/2023 12:52 PM EDT [facility] Creatinine, Plasma 0.77 0.60 - 1.10 mg/dL 01/09/2023 12:52 PM EDT [facility] BUN/Creatinine Ratio 30 01/09/2023 12:52 PM EDT [facility] Sodium, Plasma 135(L) 136 - 145 mmol/L 01/09/2023 12:52 PM EDT [facility] Potassium, Plasma 3.8 3.7 - 4.8 mmol/L 01/09/2023 12:52 PM EDT [facility] Chloride, Plasma 99 97 - 107 mmol/L 01/09/2023 12:52 PM EDT [facility] CO2, Plasma 25 22 - 29 mmol/L 01/09/2023 12:52 PM EDT [facility] Anion Gap 11 6 - 16 mmol/L 01/09/2023 12:52 PM EDT [facility] Total Calcium, Plasma 9.8 8.9 - 10.2 mg/dL 01/09/2023 12:52 PM EDT [facility] Total Protein 7.0 6.3 - 7.9 g/dL 01/09/2023 12:52 PM EDT [facility] Albumin, Plasma 4.2 3.5 - 5.2 g/dL 01/09/2023 12:52 PM EDT [facility] AST, Plasma 16 9 - 36 U/L 01/09/2023 12:52 PM EDT [facility] ALT, Plasma 12 8 - 33 U/L 01/09/2023 12:52 PM EDT [facility] Alkaline Phosphatase, Plasma 71 46 - 142 U/L 01/09/2023 12:52 PM EDT [facility] Total Bilirubin, Plasma 0.4 0.2 - 1.1 mg/dL 01/09/2023 12:52 PM EDT [facility] eGFRcr 79.6 mL/min/1.7 3m*2 01/09/2023 12:52 PM EDT [facility] Comment: Reported eGFRcr in mL/min/1.73m2 is based the CKD-EPI 2021 equation that does not use a race coefficient. Effective 02/23/22 our laboratory changed the eGFR calculation to the CKD-EPI 2021 equation from the previously reported eGFR, based on the MDRD equation. ??For comparisons between the two equations, please see laboratory website: ??[email or web address] Blood Blood sample taken from central line / Unknown (Port) Long-term Catheter / Unknown 01/09/2023 11:28 AM EDT 01/09/2023 12:20 PM EDT Penny Dodson MD LAB BLOOD ORDERABLES Final Result [facility] [address] [place] [address] * (ABNORMAL) CBC and Differential (01/09/2023 11:28 AM EDT) WBC Count 4.88 3.70 - 10.30 10*3/uL LAB HEMATOLOGY METHOD 01/09/2023 12:28 PM EDT [facility] RBC Count 3.57(L) 3.90 - 5.20 10*6/uL LAB HEMATOLOGY METHOD 01/09/2023 12:28 PM EDT [facility] HGB 12.4 11.2 - 15.7 g/dL LAB HEMATOLOGY METHOD 01/09/2023 12:28 PM EDT [facility] HCT 37.6 34.0 - 45.0 % LAB HEMATOLOGY METHOD 01/09/2023 12:28 PM EDT [facility] Platelet Count 233 155 - 369 10*3/uL LAB HEMATOLOGY METHOD 01/09/2023 12:28 PM EDT [facility] MCV 105(H) 79 - 98 fL LAB HEMATOLOGY METHOD 01/09/2023 12:28 PM EDT [facility] MCH 34.7(H) 26.0 - 32.0 pg LAB HEMATOLOGY METHOD 01/09/2023 12:28 PM EDT [facility] MCHC 33.0 30.7 - 35.5 g/dL LAB HEMATOLOGY METHOD 01/09/2023 12:28 PM EDT [facility] RDW 14.6(H) 11.5 - 14.5 % LAB HEMATOLOGY METHOD 01/09/2023 12:28 PM EDT [facility] MPV 9.8 8.8 - 12.5 fL LAB HEMATOLOGY METHOD 01/09/2023 12:28 PM EDT [facility] nRBC 0.0 <=0.0 per 100 WBCs LAB HEMATOLOGY METHOD 01/09/2023 12:28 PM EDT [facility] Differential Type Automated LAB HEMATOLOGY METHOD 01/09/2023 12:28 PM EDT [facility] Neutrophils % 68.0 % LAB HEMATOLOGY METHOD 01/09/2023 12:28 PM EDT [facility] Lymphocytes % 14.0 % LAB HEMATOLOGY METHOD 01/09/2023 12:28 PM EDT [facility] Monocytes % 8.0 % LAB HEMATOLOGY METHOD 01/09/2023 12:28 PM EDT [facility] Eosinophils % 8.0 % LAB HEMATOLOGY METHOD 01/09/2023 12:28 PM EDT [facility] Basophils % 1.0 % LAB HEMATOLOGY METHOD 01/09/2023 12:28 PM EDT [facility] Immature Granulocytes % 1.0 % LAB HEMATOLOGY METHOD 01/09/2023 12:28 PM EDT [facility] Neutrophils Absolute 3.30 1.60 - 6.10 10*3/uL LAB HEMATOLOGY METHOD 01/09/2023 12:28 PM EDT [facility] Lymphocytes Absolute 0.70(L) 1.20 - 3.90 10*3/uL LAB HEMATOLOGY METHOD 01/09/2023 12:28 PM EDT [facility] Monocytes Absolute 0.40 0.30 - 0.90 10*3/uL LAB HEMATOLOGY METHOD 01/09/2023 12:28 PM EDT [facility] Eosinophils Absolute 0.41 0.00 - 0.50 10*3/uL LAB HEMATOLOGY METHOD 01/09/2023 12:28 PM EDT [facility] Basophils Absolute 0.04 0.00 - 0.10 10*3/uL LAB HEMATOLOGY METHOD 01/09/2023 12:28 PM EDT [facility] Immature Granulocytes Absolute 0.03 0.00 - 0.06 10*3/uL LAB HEMATOLOGY METHOD 01/09/2023 12:28 PM EDT [facility] Blood Blood sample taken from central line / Unknown (Port) Long-term Catheter / Unknown 01/09/2023 11:28 AM EDT 01/09/2023 12:19 PM EDT Narrative [facility] - 01/09/2023 12:28 PM EDT Therapeutic decision making should be based on absolute values, rather than percentages. Penny Dodson MD LAB BLOOD ORDERABLES Final Result [facility] [address] [facility], [place] [id number] * CBC and Differential (12/28/2022) External WBC 4.3 External Red Blood Cell (RBC) 3.82 External Hemoglobin (Hgb) 12.70 External Hematocrit (Hct) 40.9 External Platelet Count (Plt) 271 External MCV 106.9 External MCH 33.2 External MCHC 31.1 External RDW 15.1 External MPV 8.0 External Neutrophils % 72.4 External Lymphocyte % 14.1 External Monocyte % 5.4 External Eosinophil% 7.1 External Basophil % 1.1 External Neutrophil Abs 3.1 External Lymphocyte-Absol jessica 0.6 External Monocyte Absolute 0.2 External Eos-Absolute 0.3 External Basophil Abs 0.1 Blood Venous blood specimen / Unknown 12/28/2022 Historical Provider LAB BLOOD ORDERABLES Paula l Result * Comprehensive Metabolic Panel, Plasma (12/28/2022) External Glucose 102 External BUN 18 External Creatinine Blood 0.8 mg/dL External Sodium (Na) 138 mEq/L External Potassium (K) 3.7 External Chloride (Cl) 100 External Carbon Dioxide (CO2) 29 External Anion Gap (AG) 12.7 External Calcium (Ca) 9.8 External Total Protein 6.9 External Albumin 4.0 External AST (SGOT) 32 External ALT (SGPT) 22 External Alkaline Phosphatase 80 External Bilirubin Total 0.5 mg/dL Blood Venous blood specimen / Unknown 12/28/2022 [facility] Provider MD LAB BLOOD ORDERABLES Paula l Result * Vitamin D 25 Hydroxy (12/28/2022) External Vitamin D, 25 Hydroxy 53.6 Blood Venous blood specimen / Unknown 12/28/2022 [facility] Provider MD LAB BLOOD ORDERABLES Paula l Result documented in this encounter Visit Diagnoses Diagnosis Carcinoma of fallopian tube, unspecified laterality (CMS/HCC)- Primary Neuropathy Mononeuritis of unspecified site Osteopenia, unspecified location Intermittent chest pain Obesity (BMI 30-39.9) History of aromatase inhibitor therapy documented in this encounter Administered Medications Inactive Administered Medications - up to 3 most recent administrations Medication Order MAR Action Action Date Dose Rate Site denosumab (Prolia) 60 MG/ML injection 60 mg 60 mg, Subcutaneous, Once, Avoid vigorous shaking of syringe; Prior to administration, bring to room temperature in original container for about 15 to 30 minutes; Administer via subcutaneous route in upper arm, upper thigh, or abdomen, On 01/09/23 at 1115, For 1 doseIndications:History of aromatase inhibitor therapy Started During Downtime 01/09/2023 11:23 AM EDT 60 mg Right Upper Arm (Back) documented in this encounter Additional Health Concerns Assessment Noted Time A fall risk assessment has been complete d for the patient 01/09/2023 10:06 AM EDT A Body Mass Index follow-up plan has been documented for the patient 08/19/2022 9:30 AM EST documented as of this encounter Care Teams Systems Tester Relationship Specialty Start Date End Date Flaquita Dorsey DO [address] [place], [place] [id number] PCP - General 12/14/21 Aliyah Valencia MD [address] [place], [place] [id number] Referring Physician 03/10/21 Conrado Iqbal MD [address] [place] [address] Service Attending Cardiology 08/19/22 documented as of this encounter
--- OUTSIDE RECORDS SUMMARY | 2024-07-10 11:58 | XMS_ITS | Encounter Summary ---
Author Organization [facility] Address [address] [place] [address] Care Team Providers Care Boring Machine Operator Horizontal Name Role Phone Aliyah Valencia MD Unavailable Flaquita Dorsey DO Primary Care Provider [phone] Conrado Iqbal MD Unavailable Encounter Details Date Type Department Care Team (Late st Contact Info) Description 11/16/2022 Telephone [facility] [address] [place] [address] Miriam Meyer, PharmD Social History Tobacco Use Types Packs/Day Years Used Date Smoking Tobacco: Former Cigarettes 0.5 22 1 976 - 1998 Smokeless Tobacco: Former Alcohol Use Standard Drinks/Week Comments Not Currently 0 (1 standard drink = 0.6 oz pur e alcohol) PHQ-2 Answer Date Recorded Patient Health Questionnaire-2 Score 0 11/02/2022 Comments No Sex and Gender Information Value Date Recorded Sex Assigned at Not on file Legal Sex Female 8:51 PM EDT Gender Identity Not on file Sexual Orientation Not on file COVID-19 Exposure Response Date Recorded In the last 10 days, have yo u been in contact with someone who was confirmed or suspected to have Coronavirus/COVID-19? No / Unsure 11/02/2022 7:37 AM EDT documented as of this encounter Miscellaneous Notes * Telephone Encounter - Miriam Meeyr - 11/16/2022 10:11 AM EDT [facility] Plan of Care - [facility] Review Reviewed patient's current medication list for drug interaction with specialty medication: No interaction identified Condition Summary: Stable Adverse events/side effect summary: No adverse events/side effects identified Plan of care goal: Improving or maintaining quality of life, Achieve ocean transportation intermediary survival of patient, and Minimize/manage side effects or toxicities Therapeutic Goal Summary: Patient is achieving progress toward goal Patients therapy is appropriate to: Continue Did the patient have any additional questions or needs to be coordinated with additional members ofthe care team (Physical therapy, Social Work, etc)? no Summary: Pharmacist spoke with Patient via telephone in regards to continuation of their specialty medication Cyclophosphamide for diagnosis fallopian tube cancer. Assessment: The patient was contacted to discuss to their medication care plan. There were no changes identified. Therapy is appropriate based on current physician order. Plan/Patient specific needs: Patient reports no issues with therapy and has no medication related questions at time of assessment. Patient participated in the development and expressed understanding of the plan of care. Patient had no questions or concerns for the care team. Patient voices understanding of the goals with the regimen and agrees to attend follow up appointments to assess progress toward their goal. We will reassess this patient care plan in 7 month(s). The patient will be seen or contacted sooner if there is aneed. Miriam Meyer documented in this encounter Plan of Treatment Upcoming Encounters Date Type Department Care Team (Late st Contact Info) Description 08/05/2024 8:00 AM EST Office Visit [facility] Gynecology [address] [address] [place] [phone] Penelope Carmona MD [address] [facility] [address] [facility] [address] [place] [address] 08/05/2024 9:30 AM EST Appointment [facility] [address] [place] [address] 02/26/2025 9:30 AM EDT Appointment [facility] Breast Care Center [facility] Radha Lai [facility] [address] [place] [address] 02/26/2025 10:30 AM EDT Office Visit [facility] [address] [facility] [place] [address] Berenice Resendez D, DISTANCE LEARNING UNIT LEADER [address] [facility] [address] [place] [address] documented as of this encounter Visit Diagnoses Not on filedocumented in this encounter Additional Health Concerns Assessment Noted Time A fall risk assessment has been complete d for the patient 11/02/2022 10:35 AM EDT A Body Mass Index follow-up plan has been documented for the patient 08/19/2022 9:30 AM EST documented as of this encounter Care Teams Boring Machine Operator Horizontal Relationship Specialty Start Date End Date Flaquita Dorsey DO [address] [place] [address] PCP - General 12/14/21 Aliyah Valencia MD [address] [place] [address] Referring Physician 03/10/21 Conrado Iqbal MD [address] [place] [address] Service Attending Cardiology 08/19/22 documented as of this encounter
--- OUTSIDE RECORDS SUMMARY | 2024-07-10 11:58 | XMS_ITS | Encounter Summary ---
Author Organization Healthcare Address [address] [place] [address] Care Team Providers Care Teacher Lip Reading Name Role Phone Aliyah Valencia MD Unavailable [phone] Flaquita Dorsey DO Primary Care Provider + [phone] Conrado Iqbal MD Unavailable Encounter Details Date Type Department Care Team (Latest Contact Info) Description 11/02/2022 Travel Social History Tobacco Use Types Packs/Day [...] AM EDT documented as of this encounter Plan of Treatment Upcoming Encounters Date Type Department Care Team (Late st Contact Info) Description 08/05/2024 8:00 AM EST Office Visit [facility] [address] [place] [address] Penelope Carmona MD [address] [place] [address] 08/05/2024 9:30 AM EST Appointment [facility] [address] [place] [address] 02/26/2025 9:30 AM EDT Appointment [facility] [address] [place] [address] 02/26/2025 10:30 AM EDT Office Visit [facility] [address] [facility]nd [place] [address] Berenice Resendez D, MEDICAL RECORDS LIBRARY PROFESSOR [address] [facility] [address] [place] [address] documented as of this encounter Visit Diagnoses Not on filedocumented in this encounter Additional Health Concerns Assessment Noted Time A fall risk assessment has been complete d for the patient 11/02/2022 10:35 AM EDT A Body Mass Index follow-up plan has been documented for the patient 08/19/2022 9:30 AM EST documented as of this encounter Care Teams Teacher Lip Reading Relationship Specialty Start Date End Date Flaquita Dorsey DO [address] [place] [address] PCP - General 12/14/21 Aliyah Valencia MD [address] [place] [place] [address] Referring Physician 03/10/21 Conrado Iqbal MD [address] [place] [address] Service Attending Cardiology 08/19/22 documented as of this encounter
--- OUTSIDE RECORDS SUMMARY | 2024-07-10 11:58 | XMS_ITS | Encounter Summary ---
Author Organization Healthcare Address [address] [place] [address] Care Team Providers Care Chemical Engraver Name Role Phone Aliyah Valencia MD Unavailable [phone] Flaquita Dorsey DO Primary Care Provider +- [phone] Conrado Iqbal MD Unavailable Encounter Details Date Type Department Care Team (Latest Contact Info) Description 12/14/2022 Travel Social History Tobacco Use Types Packs/Day [...] Office Visit [facility] [address] [facility] [address] [place] [address] Penelope Carmona MD [address] [facility] [address] [place] [address] 08/05/2024 9:30 AM EST Appointment [facility] [address] [place] [address] 02/26/2025 9:30 AM EDT Appointment [facility] [address] [place] [address] 02/26/2025 10:30 AM EDT Office Visit [facility] [address] [facility] [place] [address] Berenice Resendez D, PATROL COMMANDER [address] [facility] [address] [place] [address] documented as of this encounter Visit Diagnoses Not on filedocumented in this encounter Additional Health Concerns Assessment Noted Time A fall risk assessment has been complete d for the patient 12/14/2022 2:13 PM EDT A Body Mass Index follow-up plan has been documented for the patient 08/19/2022 9:30 AM EST documented as of this encounter Care Teams Chemical Engraver Relationship Specialty Start Date End Date Flaquita Dorsey DO [address] [place] [address] PCP - General 12/14/21 Aliyah Valencia MD [address] [place] [place] [address] Referring Physician 03/10/21 Conrado Iqbal MD [address] [place] [address] Service Attending Cardiology 08/19/22 documented as of this encounter
--- OUTSIDE RECORDS SUMMARY | 2024-07-10 11:58 | XMS_ITS | Encounter Summary ---
Author Organization [facility] Address [address] [place], [place] [id number] Care Team Providers Care Dynamometer Repairer Name Role Phone Aliyah Valencia MD Unavailable [phone] Flaquita Dorsey DO Primary Care Provider [phone] Conrado Iqbal MD Unavailable Reason for Referral * Imaging (Routine) - Closed Specialty Diagnoses / Procedures Referred By Contac t Referred To Contact Radiology Diagnoses Carcinoma of fallopian tube, unspecified laterality (CMS/HCC) Procedures CT Abdomen Pelvis w IV Contrast Penny Carmona MD [address] [address] Phone: tel: fax: Referral ID Status Reason Start Date Expiration Date Visits Re quested Visits Authorized [id number] Closed 09/02/2022 03/03/2024 1 1 * Imaging (Routine) - Closed Specialty Diagnoses / Procedures Referred By Contac t Referred To Contact Radiology Diagnoses Carcinoma of fallopian tube, unspecified laterality (CMS/HCC) Procedures CT Chest w IV Contrast Penny Carmona MD [address] [address] Phone: tel: fax: Referral ID Status Reason Start Date Expiration Date Visits Re quested Visits Authorized [id number] Closed 09/02/2022 03/03/2024 1 1 Encounter Details Date Type Department Care Team (Late Contact Info) Description 09/02/2022 Orders Only [facility] 800 [facility] [address] [place] [address] Penny Carmona MD 800 [facility] [address] [facility] [address] [place] [address] Carcinoma of fallopian tube, unspecified laterality (CMS/HCC) (Primary Dx) Social History Tobacco Use Types Packs/Day Years Used Date Smoking Tobacco: Former Cigarettes 0.5 22 1 976 - 1998 Smokeless Tobacco: Former Alcohol Use Standard Drinks/Week Comments Not Currently 0 (1 standard drink = 0.6 oz pur e alcohol) PHQ-2 Answer Date Recorded Patient Health Questionnaire-2 Score 0 08/19/2022 Comments No Sex and Gender Information Value Date Recorded Sex Assigned at Not on file Legal Sex Female 8:51 PM EDT Gender Identity Not on file Sexual Orientation Not on file COVID-19 Exposure Response Date Recorded In the last 10 days, have yo u been in contact with someone who was confirmed or suspected to have Coronavirus/COVID-19? No / Unsure 08/31/2022 1:47 PM EST documented as of this encounter Plan of Treatment Upcoming Encounters Date Type Department Care Team (Late Contact Info) Description 08/05/2024 8:00 AM EST Office Visit [facility] [address] [place] [address] Penny Carmona MD 800 [facility] [address] [facility] [address] [address] 08/05/2024 9:30 AM EST Appointment [facility] [address] [place] [address] 02/26/2025 9:30 AM EDT Appointment [facility] [address] [place] [address] 02/26/2025 10:30 AM EDT Office Visit [facility] 7[address] [facility], 2nd [place] [address] Berenice Resendez, DATA REDUCTION TECHNICIAN 800 [facility] [address] [place] [address] documented as of this encounter Results * CT Abdomen Pelvis w IV Contrast (11/02/2022 8:56 AM EDT) Anatomical Region Laterality Modality Abdomen, Pelvis Computed Tomogra phy Impressions 11/02/2022 1:57 PM EDT Chest: No evidence of metastatic disease. Abdomen/pelvis: No recurrence or metastatic disease. Indeterminate right adrenal nodule is not significantly changed. CRITICAL RESULT: ?? No. COMMUNICATION: Per this written report. By electronically signing this report, I, the attending physician, attest that I have personally reviewed the images/data for the above examination(s) and agree with the final edited report. Dictated by Gt Alvarez MD on 11/02/2022 9:34 AM Signed by Katelynn Shah MD on 11/02/2022 1:57 PM Narrative 11/02/2022 1:57 PM EDT Exam/Procedure: CT CHEST W IV CONTRAST, CT ABDOMEN PELVIS W IV CONTRAST ordered by PENNY BANERJEE BRANCH, [id number] CLINICAL INDICATION: Surveillance of serous fallopian tube [...] No interval increase in size of previously seen lesions. Cardiovascular: Similar positioning of right internal jugular central venous port catheter. Coronary arterial vascular calcifications are present. No pericardial effusion. Lungs: No new suspicious pulmonary nodules. No significant change in small right lung subcentimeter nodules. Similar appearance of scarring within the left [...] calcified or noncalcified atherosclerotic plaque of the abdominal aorta. GI Tract: Small large bowel wall thickening or dilation. Appendix is not visualized. The appearance of large descending duodenal diverticula. Mesentery/Peritoneum: No mesenteric or peritoneal masses or nodules. Pelvic Viscera: Status post hysterectomy. There are no suspicious masses within the pelvis to suggest local recurrence. Stable appearance of the vaginal cuff. Unremarkable urinary bladder. Free Fluid: No ascites. Musculoskeletal and Body Wall: Similar-appearing ventral hernia containing both large and small bowel, which has not increased in size. Procedure Note Katelynn Shah MD - 11/02/2022 Exam/Procedure: CT CHEST W IV CONTRAST, CT ABDOMEN PELVIS W IV CONTRASTordered by PENNY BANERJEE BROOKLYN, [id number] CLINICAL INDICATION: Surveillance of serous fallopian tube cancer. Most recent study showed noevidence of disease. TECHNIQUE: Multiple axial CT images were obtained from thoracic inlet through pubicsymphysis following administration of IV contrast, Omnipaque 300, 100 mL.Reformatted images of the abdomen and pelvis in the coronal and sagittalplanes were generated from the axial data set to facilitate diagnosticaccuracy. Total DLP (Dose-Length Product): 422.68 mGy.cm. Please note: The reportedvalue represents the total of one or more individual components during theCT acquisition on this date and at this time, and as such, the same valuemay appear in more than one CT report depending on theinterpreting/reporting physicians. COMPARISON: CT chest abdomen pelvis with IV contrast 08/10/2022 FINDINGS: A detailed of the chest and at the Chest: Lymph Nodes: No enlarged or new suspicious lymph nodes. Thyroid: Similar appearance when compared to prior. No interval increasein size of previously seen lesions. Cardiovascular: Similar positioning of right internal jugular centralvenous port catheter. Coronary arterial vascular calcifications arepresent. No pericardial effusion. Lungs: No new suspicious pulmonary nodules. No significant change in smallright lung subcentimeter nodules. Similar appearance of scarring withinthe left lung base. Pleura: No pleural effusion or pleural thickening. Musculoskeletal and Body Wall: mild degenerative changes of the spine. Noacute or aggressive bony lesions. No significant change in left breastsoft tissue asymmetry with surgical clips. Abdomen/Pelvis: Liver, Gallbladder, Biliary Tract: Focal hepatic lesions. The gallbladderis surgically absent, with surgical clips within the gallbladder fossa. Nosignificant biliary ductal dilation. Spleen: Unremarkable. No splenomegaly. Pancreas: Similar appearance of diffuse fatty infiltration. No suspiciouspancreatic lesions. Adrenal Glands: No significant change of indeterminate right adrenalnodule. Similar appearance of left adrenal myelolipoma. 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 Lymph Nodes: No enlarged lymph nodes. Vasculature: Stable appearance of calcified or noncalcifiedatherosclerotic plaque of the abdominal aorta. GI Tract: Small large bowel wall thickening or dilation. Appendix is notvisualized. The appearance of large descending duodenal diverticula. Mesentery/Peritoneum: No mesenteric or peritoneal masses or nodules. Pelvic Viscera: Status post hysterectomy. There are no suspicious masseswithin the pelvis to suggest local recurrence. Stable appearance of thevaginal cuff. Unremarkable urinary bladder. Free Fluid: No ascites. Musculoskeletal and Body Wall: Similar-appearing ventral hernia containingboth large and small bowel, which has not increased in size. IMPRESSION: Chest: No evidence of metastatic disease. Abdomen/pelvis: [...] Katelynn Shah MD on 11/02/2022 1:57 PM us Penny Dodson MD IMG CT PROCEDURES Fin al Result * CT Chest w IV Contrast (11/02/2022 8:56 AM EDT) Anatomical Region Laterality Modality Chest Computed Tomogra phy Impressions 11/02/2022 1:57 PM EDT Chest: No evidence of metastatic disease. Abdomen/pelvis: No recurrence or metastatic disease. Indeterminate right adrenal nodule is not significantly changed. CRITICAL RESULT: ?? No. COMMUNICATION: Per this written report. By electronically signing this report, I, the attending physician, attest that I have personally reviewed the images/data for the above examination(s) and agree with the final edited report. Dictated by Gt Alvarez MD on 11/02/2022 9:34 AM Signed by Katelynn Shah MD on 11/02/2022 1:57 PM Narrative 11/02/2022 1:57 PM EDT Exam/Procedure: CT CHEST W IV CONTRAST, CT ABDOMEN PELVIS W IV CONTRAST ordered by PENNY DODSON, [id number] CLINICAL INDICATION: Surveillance of serous fallopian tube [...] No interval increase in size of previously seen lesions. Cardiovascular: Similar positioning of right internal jugular central venous port catheter. Coronary arterial vascular calcifications are present. No pericardial effusion. Lungs: No new suspicious pulmonary nodules. No significant change in small right lung subcentimeter nodules. Similar appearance of scarring within the left [...] calcified or noncalcified atherosclerotic plaque of the abdominal aorta. GI Tract: Small large bowel wall thickening or dilation. Appendix is not visualized. The appearance of large descending duodenal diverticula. Mesentery/Peritoneum: No mesenteric or peritoneal masses or nodules. Pelvic Viscera: Status post hysterectomy. There are no suspicious masses within the pelvis to suggest local recurrence. Stable appearance of the vaginal cuff. Unremarkable urinary bladder. Free Fluid: No ascites. Musculoskeletal and Body Wall: Similar-appearing ventral hernia containing both large and small bowel, which has not increased in size. Procedure Note Katelynn Shah MD - 11/02/2022 Exam/Procedure: CT CHEST W IV CONTRAST, CT ABDOMEN PELVIS W IV CONTRASTordered by PENNY DODSON, [id number] CLINICAL INDICATION: Surveillance of serous fallopian tube cancer. Most recent study showed noevidence of disease. TECHNIQUE: Multiple axial CT images were obtained from thoracic inlet through pubicsymphysis following administration of IV contrast, Omnipaque 300, 100 mL.Reformatted images of the abdomen and pelvis in the coronal and sagittalplanes were generated from the axial data set to facilitate diagnosticaccuracy. Total DLP (Dose-Length Product): 422.68 mGy.cm. Please note: The reportedvalue represents the total of one or more individual components during theCT acquisition on this date and at this time, and as such, the same valuemay appear in more than one CT report depending on theinterpreting/reporting physicians. COMPARISON: CT chest abdomen pelvis with IV contrast 08/10/2022 FINDINGS: A detailed of the chest and at the Chest: Lymph Nodes: No enlarged or new suspicious lymph nodes. Thyroid: Similar appearance when compared to prior. No interval increasein size of previously seen lesions. Cardiovascular: Similar positioning of right internal jugular centralvenous port catheter. Coronary arterial vascular calcifications arepresent. No pericardial effusion. Lungs: No new suspicious pulmonary nodules. No significant change in smallright lung subcentimeter nodules. Similar appearance of scarring withinthe left lung base. Pleura: No pleural effusion or pleural thickening. Musculoskeletal and Body Wall: mild degenerative changes of the spine. Noacute or aggressive bony lesions. No significant change in left breastsoft tissue asymmetry with surgical clips. Abdomen/Pelvis: Liver, Gallbladder, Biliary Tract: Focal hepatic lesions. The gallbladderis surgically absent, with surgical clips within the gallbladder fossa. Nosignificant biliary ductal dilation. Spleen: Unremarkable. No splenomegaly. Pancreas: Similar appearance of diffuse fatty infiltration. No suspiciouspancreatic lesions. Adrenal Glands: No significant change of indeterminate right adrenalnodule. Similar appearance of left adrenal myelolipoma. 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 Lymph Nodes: No enlarged lymph nodes. Vasculature: Stable appearance of calcified or noncalcifiedatherosclerotic plaque of the abdominal aorta. GI Tract: Small large bowel wall thickening or dilation. Appendix is notvisualized. The appearance of large descending duodenal diverticula. Mesentery/Peritoneum: No mesenteric or peritoneal masses or nodules. Pelvic Viscera: Status post hysterectomy. There are no suspicious masseswithin the pelvis to suggest local recurrence. Stable appearance of thevaginal cuff. Unremarkable urinary bladder. Free Fluid: No ascites. Musculoskeletal and Body Wall: Similar-appearing ventral hernia containingboth large and small bowel, which has not increased in size. IMPRESSION: Chest: No evidence of metastatic disease. Abdomen/pelvis: No recurrence or metastatic disease. Indeterminate right adrenal nodule is not significantly changed. CRITICAL RESULT: No. COMMUNICATION: Per this written report. By electronically signing this report, I, the attending physician, mickie I have personally reviewed the images/data for the aboveexamination(s) and agree with the final edited report. 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, unspecified laterality (CMS/HCC) documented in this encounter Additional Health Concerns Assessment Noted Time A fall risk assessment has been complete d for the patient 08/31/2022 2:06 PM EST A Body Mass Index follow-up plan has been documented for the patient 08/19/2022 9:30 AM EST documented as of this encounter Care Teams Dynamometer Repairer Relationship Specialty Start Date End Date Flaquita Dorsey DO [address] [place] [address] PCP - General 12/14/21 Aliyah Valencia MD [address] [place] [place] [address] Referring Physician 03/10/21 Conrado Iqbal MD [address] [place] [address] Service Attending Cardiology 08/19/22 documented as of this encounter
--- OUTSIDE RECORDS SUMMARY | 2024-07-10 11:58 | XMS_ITS | Encounter Summary ---
Author Organization [facility] Address [address] [place] [address] Care Team Providers Care Groundskeeping Yardman Name Role Phone Aliyah Valencia MD Unavailable [phone] Flaquita Dorsey DO Primary Care Provider [phone] Conrado Iqbal MD Unavailable Encounter Details Date Type Department Care Team (Late st Contact Info) Description 10/31/2022 Telephone [facility] [address] [place] [address] Georgette Acevedo RN [facility] Social History Tobacco Use [...] Telephone Encounter - Georgette Acevedo RN - 10/31/2022 3:07 PM EDT Patient called in wanting to reschedule her 4/5 appt to the AM. After speaking to Penelope Hutchins MD, Patient given new appt with MARCIN and she verbalized understanding. documented in this encounter Plan of Treatment Upcoming Encounters Date Type Department Care Team (Late st Contact Info) Description 08/05/2024 8:00 AM EST Office Visit [facility] 800 [facility] [address] [place] [address] Penelope Carmona MD 800 [facility] [address] [facility] [address] [place] [address] 08/05/2024 9:30 AM EST Appointment [facility] 1 [address] [place] [address] 02/26/2025 9:30 AM EDT Appointment [facility] [address] [facility] [address] [place] [address] 02/26/2025 10:30 AM EDT Office Visit [facility] Breast [facility] Center [address] [facility], 2nd [place] [address] Berenice Resendez, NETWORK SUPPORT ADMINISTRATOR 800 [facility] [address] [facility] [address] [place] [address] documented as of this encounter Visit Diagnoses Not on filedocumented in this encounter Additional Health Concerns Assessment Noted Time A fall risk assessment has been complete d for the patient 08/31/2022 2:06 PM EST A Body Mass Index follow-up plan has been documented for the patient 08/19/2022 9:30 AM EST documented as of this encounter Care Teams Groundskeeping Yardman Relationship Specialty Start Date End Date Flaquita Dorsey DO [address] [place] [address] PCP - General 12/14/21 Aliyah Valencia MD [address] [place] [place] [address] Referring Physician 03/10/21 Conrado Iqbal MD [address] [place] [address] Service Attending Cardiology 08/19/22 documented as of this encounter
--- OUTSIDE RECORDS SUMMARY | 2024-07-10 11:58 | XMS_ITS | Encounter Summary ---
Author Organization [facility] Address [address] [place] [address] Care Team Providers Care Civil Engineering Teacher Name Role Phone Aliyah Valencia MD Unavailable [phone] Flaquita Dorsey DO Primary Care Provider + [phone] Conrado Iqbal MD Unavailable Encounter Details Date Type Department Care Team (Late Contact Info) Description 08/30/2022 Orders Only [facility] [address] [place] [address] Rossy Infante, PharmD 800 [facility] 2nd [place] [address] Carcinoma of fallopian tube, unspecified laterality (CMS/HCC) [...] suspected to have Coronavirus/COVID-19? No / Unsure 08/19/2022 7:46 AM EST documented as of this encounter Plan of Treatment Upcoming Encounters Date Type Department Care Team (Late Contact Info) Description 08/05/2024 8:00 AM EST Office Visit [facility] 800 [facility] [address] [place] [address] Penelope Carmona MD 800 [facility] [address] [facility] [address] [place] [address] 08/05/2024 9:30 AM EST Appointment [facility] [address] [place] [address] 02/26/2025 9:30 AM EDT Appointment [facility] [address] [facility] [address] [place] [address] 02/26/2025 10:30 AM EDT Office Visit [facility] Breast Care Center [address] [facility], 2nd [place] [address] Berenice Resendez, THERMODYNAMICS ENGINEER 800 [facility] [address] [facility] [address] [place] [address] documented as of this encounter Visit Diagnoses Diagnosis Carcinoma of fallopian tube, unspecified laterality (CMS/HCC)- Primary documented in this encounter Additional Health Concerns Assessment Noted Time A fall risk assessment has been complete d for the patient 08/19/2022 7:58 AM EST A Body Mass Index follow-up plan has been documented for the patient 08/19/2022 9:30 AM EST documented as of this encounter Care Teams Civil Engineering Teacher Relationship Specialty Start Date End Date Flaquita Dorsey DO [address] [place], [place] [id number] PCP - General 12/14/21 Aliyah Valencia MD [address] [place] [place] [address] Referring Physician 03/10/21 Conrado Iqbal MD [address] [place] [address] Service Attending Cardiology 08/19/22 documented as of this encounter
--- OUTSIDE RECORDS SUMMARY | 2024-07-10 11:58 | XMS_ITS | Encounter Summary ---
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, unspecified (CMS/HCC) Procedures CT Abdomen Pelvis w IV Contrast Penelope Carmona MD [address] [address] Phone: tel: fax: Referral ID Status Reason Start Date Expiration Date Visits Re quested Visits Authorized [id number] Closed 01/10/2023 07/11/2024 1 1 * Imaging (Routine) - Closed Specialty Diagnoses / Procedures Referred By Contshena t Referred To Contact Radiology Diagnoses Carcinoma of fallopian tube, 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, unspecified (CMS/HCC) Procedures CT Chest w IV Contrast Penelope Carmona MD [address] [address] Phone: tel: fax: Referral ID Status Reason Start Date Expiration Date Visits Re quested Visits Authorized [id number] Closed 01/10/2023 07/11/2024 1 1 Encounter Details Date Type Department Care Team (Late Contact Info) Description 01/10/2023 Orders Only [facility] [address] [place] [phone] Penelope Carmona MD 800 [facility] [address] Randolph[address] [facility] [address] [address] Carcinoma of fallopian tube, unspecified laterality (CMS/HCC) (Primary Dx); Malignant neoplasm of peritoneum, unspecified (CMS/HCC) Social History Tobacco Use Types Packs/Day [...] EST Office Visit [facility] 800 [facility] [address] [place] [phone] Penelope Carmona MD 800 [facility] [address] Guillenson [facility] [address] [address] 08/05/2024 9:30 AM EST Appointment [facility] 1 [address] [place] [address] 02/26/2025 9:30 AM EDT Appointment [facility] [place] [address] [address] [facility] [address] [place] [address] 02/26/2025 10:30 AM EDT Office Visit [facility] [address] [place] [address] Berenice Resendez, TELECOMMUNICATIONS FIELD ENGINEER [address] [place] [address] documented as of this encounter Results * CT Abdomen Pelvis w IV Contrast (03/13/2023 1:21 PM EDT) Anatomical Region Laterality Modality Abdomen, Pelvis Computed Tomogra phy Addenda Addendum by Bhavani Castillo MD on 03/13/2023 4:40 PM EDT Addendum: ADDENDUM: Addendum to add impression #3: 3. Slight interval increase in size of the heterogeneously enhancing right upper pole renal lesion measuring 15 mm, previously 12 mm. Drafted by Bhavani Castillo MD on 03/13/2023 4:39 PM Final report signed by Bhavani Castillo MD on 03/13/2023 4:40 PM Impressions 03/13/2023 3:52 PM EDT Chest: No evidence of disease progression. Similar 5 mm right upper lobe pulmonary nodule. Abdomen/Pelvis: 1.Postsurgical changes from prior hysterectomy. Interval development of a peripherally enhancing lesion along the superior vaginal cuff concerning for local recurrence. 2.Subcentimeter right internal iliac lymph notes with suspicious feature and enhancement concerning for disease involvement. CRITICAL RESULT: ?? No. COMMUNICATION: Per this written report. By electronically signing this report, I, the attending physician, attest that I have personally reviewed the images/data for the above examination(s) and agree with the final edited report. Drafted by Toni Simmons DO on 03/13/2023 2:24 PM Final report signed by Bhavani Castillo MD on 03/13/2023 3:52 PM Narrative 03/13/2023 3:52 PM EDT CLINICAL INDICATION: Uterine/cervical cancer, surveillance TECHNIQUE: Multiple [...] mm right upper pole angiomyolipoma (series 3, image 90). Slight interval increase in size of the [...] again noted unchanged (series 503, image 75). Similar ventral abdominal wall hernia containing nonobstructed large bowel loops. No evidence of inflammatory change. No obstruction. The appendix is not definitively visualized, however no secondary signs of acute appendicitis. No suspicious peritoneal/mesenteric findings.. Pelvic Viscera: Postsurgical changes from prior hysterectomy. There is been interval development of a mildly peripherally enhancing lesion measuring 4.3 x 2.6 cm along the superior vaginal cuff (series 3, image 257). Lymph Nodes/Vasculature: No lymphadenopathy by CT size criteria, however there is a new rounded somewhat enhancing right internal iliac lymph node measuring 9 mm in short axis (series 3, image 226).. The aortoiliac vasculature is patent and normal in caliber. Mild calcific atherosclerotic plaque involving the abdominal aorta and common iliac arteries. Free Fluid:No ascites Musculoskeletal and Body Wall:No aggressive or suspicious findings. Similar appearance of a nonspecific sclerotic focus in T12 vertebral body. Grade 1 anterolisthesis of L4 on L5, unchanged. Procedure Note Bhavani Castillo MD - 03/13/2023 CLINICAL INDICATION: Uterine/cervical cancer, surveillance TECHNIQUE: Multiple axial CT images were obtained from thoracic inlet through pubicsymphysis following administration of IV contrast, Omnipaque 300, 100 mL.Reformatted images of the abdomen and pelvis in the coronal and sagittalplanes were generated from the axial data set to facilitate diagnosticaccuracy. Total DLP (Dose-Length Product): 729.61 mGy.cm. Please note: The reportedvalue represents the total of one or more individual components during theCT acquisition on this date and at this time, and as such, the same valuemay appear in more than one CT report depending on theinterpreting/reporting physicians. COMPARISON: CT chest, abdomen and pelvis November 02, 2022 FINDINGS: Chest: Lymph Nodes and Mediastinum: No lymphadenopathy by CT size criteria.Calcified right hilar lymph nodes. No mediastinal mass lesions. Similarappearance of the thyroid lobes with tiny calcifications in the leftlobe. Cardiovascular: The heart is normal in caliber. Aortic annularcalcifications. Left anterior descending artery calcifications. Thoracicgreat vessels are patent. Mild calcific atherosclerotic plaque involvingthe thoracic aorta. A right chest wall ilan catheter is in place andterminates at the cavoatrial junction. Lungs and Pleura: Central airways are patent. No significant change in a 5mm right upper lobe pulmonary nodule (series 4, image 109). Similar simplecyst in the left lower lobe. Linear subsegmental atelectasis versusscarring involving bilateral lower lobes left upper and right middlelobes. No pleural effusions or suspicious thickening. Musculoskeletal and Body Wall: No clearly aggressive bone lesions. Similartiny round sclerotic lesion in the manubrium (series 603, image 121).Multilevel spondylotic changes of the spine. Abdomen/Pelvis: Solid Abdominal Organs: Unremarkable liver. Prior cholecystectomy. Thereis similar mild intrahepatic biliary ductal dilation. Similar extrahepaticbiliary ductal dilation, measuring up to 10 mm, likely related to priorcholecystectomy. Similar 12 mm right upper pole angiomyolipoma (series 3,image 90). Slight interval increase in size of the heterogeneouslyenhancing right upper pole lesion measuring 15 mm, previously 12 mm(series 503, image 123). Additional too small to characterizelow-attenuation lesions in the bilateral kidneys similar to prior study.No hydronephrosis. Unremarkable spleen. 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 No significant change in the rightindeterminate 18 mm adrenal nodule (series 3, image 73). Suspiciousadrenal findings. No suspicious pancreatic findings. GI Tract/Mesentery/Peritoneum: Small hiatal hernia. The large and smallbowel appear normal in caliber. Large narrowneck duodenal diverticulum isagain noted unchanged (series 503, image 75). Similar ventral abdominalwall hernia containing nonobstructed large bowel loops. No evidence ofinflammatory change. No obstruction. The appendix is not definitivelyvisualized, however no secondary signs of acute appendicitis. Nosuspicious peritoneal/mesenteric findings.. Pelvic Viscera: Postsurgical changes from prior hysterectomy. There isbeen interval development of a mildly peripherally enhancing lesionmeasuring 4.3 x 2.6 cm along the superior vaginal cuff (series 3, ). Lymph Nodes/Vasculature: No lymphadenopathy by CT size criteria, howeverthere is a new rounded somewhat enhancing right internal iliac lymph nodemeasuring 9 mm in short axis (series 3, image 226).. The aortoiliacvasculature is patent and normal in caliber. Mild calcific atheroscleroticplaque involving the abdominal aorta and common iliac arteries. Free Fluid:No ascites Musculoskeletal and Body Wall:No aggressive or suspicious findings.Similar appearance of a nonspecific sclerotic focus in T12 vertebral body.Grade 1 anterolisthesis of L4 on L5, unchanged. IMPRESSION: Chest: No evidence of disease progression. Similar 5 mm right upper lobepulmonary nodule. Abdomen/Pelvis: 1.Postsurgical changes from prior hysterectomy. Interval development of aperipherally enhancing lesion along the superior vaginal cuff concerningfor local recurrence. 2.Subcentimeter right internal iliac lymph notes with suspicious featureand enhancement concerning for disease involvement. CRITICAL RESULT: No. COMMUNICATION: Per this written report. By electronically signing this report, I, the attending physician, mickie I have personally reviewed the images/data for the aboveexamination(s) and agree with the final edited report. Drafted by Toni Simmons DO on 03/13/2023 2:24 PM Final report signed by Bhavani Castillo MD on 03/13/2023 3:52 PM Penelope Dodson MD IMG CT PROCEDURES Arnaldo beba Result - Final * CT Chest w IV Contrast (03/13/2023 1:21 PM EDT) Anatomical Region Laterality Modality Chest Computed Tomogra phy Addenda Addendum by Bhavani Castillo MD on 03/13/2023 4:40 PM EDT Addendum: ADDENDUM: Addendum to add impression #3: 3. Slight interval increase in size of the heterogeneously enhancing right upper pole renal lesion measuring 15 mm, previously 12 mm. Drafted by Bhavani Castillo MD on 03/13/2023 4:39 PM Final report signed by Bhavani Castillo MD on 03/13/2023 4:40 PM Impressions 03/13/2023 3:52 PM EDT Chest: No evidence of disease progression. Similar 5 mm right upper lobe pulmonary nodule. Abdomen/Pelvis: 1.Postsurgical changes from prior hysterectomy. Interval development of a peripherally enhancing lesion along the superior vaginal cuff concerning for local recurrence. 2.Subcentimeter right internal iliac lymph notes with suspicious feature and enhancement concerning for disease involvement. CRITICAL RESULT: ?? No. COMMUNICATION: Per this written report. By electronically signing this report, I, the attending physician, attest that I have personally reviewed the images/data for the above examination(s) and agree with the final edited report. Drafted by Toni Simmons DO on 03/13/2023 2:24 PM Final report signed by Bhavani Castillo MD on 03/13/2023 3:52 PM Narrative 03/13/2023 3:52 PM EDT CLINICAL INDICATION: Uterine/cervical cancer, surveillance TECHNIQUE: Multiple [...] mm right upper pole angiomyolipoma (series 3, image 90). Slight interval increase in size of the [...] again noted unchanged (series 503, image 75). Similar ventral abdominal wall hernia containing nonobstructed large bowel loops. No evidence of inflammatory change. No obstruction. The appendix is not definitively visualized, however no secondary signs of acute appendicitis. No suspicious peritoneal/mesenteric findings.. Pelvic Viscera: Postsurgical changes from prior hysterectomy. There is been interval development of a mildly peripherally enhancing lesion measuring 4.3 x 2.6 cm along the superior vaginal cuff (series 3, image 257). Lymph Nodes/Vasculature: No lymphadenopathy by CT size criteria, however there is a new rounded somewhat enhancing right internal iliac lymph node measuring 9 mm in short axis (series 3, image 226).. The aortoiliac vasculature is patent and normal in caliber. Mild calcific atherosclerotic plaque involving the abdominal aorta and common iliac arteries. Free Fluid:No ascites Musculoskeletal and Body Wall:No aggressive or suspicious findings. Similar appearance of a nonspecific sclerotic focus in T12 vertebral body. Grade 1 anterolisthesis of L4 on L5, unchanged. Procedure Note Bhavani Castillo MD - 03/13/2023 CLINICAL INDICATION: Uterine/cervical cancer, surveillance TECHNIQUE: Multiple axial CT images were obtained from thoracic inlet through pubicsymphysis following administration of IV contrast, Omnipaque 300, 100 mL.Reformatted images of the abdomen and pelvis in the coronal and sagittalplanes were generated from the axial data set to facilitate diagnosticaccuracy. Total DLP (Dose-Length Product): 729.61 mGy.cm. Please note: The reportedvalue represents the total of one or more individual components during theCT acquisition on this date and at this time, and as such, the same valuemay appear in more than one CT report depending on theinterpreting/reporting physicians. COMPARISON: CT chest, abdomen and pelvis November 02, 2022 FINDINGS: Chest: Lymph Nodes and Mediastinum: No lymphadenopathy by CT size criteria.Calcified right hilar lymph nodes. No mediastinal mass lesions. Similarappearance of the thyroid lobes with tiny calcifications in the leftlobe. Cardiovascular: The heart is normal in caliber. Aortic annularcalcifications. Left anterior descending artery calcifications. Thoracicgreat vessels are patent. Mild calcific atherosclerotic plaque involvingthe thoracic aorta. A right chest wall ilan catheter is in place andterminates at the cavoatrial junction. Lungs and Pleura: Central airways are patent. No significant change in a 5mm right upper lobe pulmonary nodule (series 4, image 109). Similar simplecyst in the left lower lobe. Linear subsegmental atelectasis versusscarring involving bilateral lower lobes left upper and right middlelobes. No pleural effusions or suspicious thickening. Musculoskeletal and Body Wall: No clearly aggressive bone lesions. Similartiny round sclerotic lesion in the manubrium (series 603, image 121).Multilevel spondylotic changes of the spine. Abdomen/Pelvis: Solid Abdominal Organs: Unremarkable liver. Prior cholecystectomy. Thereis similar mild intrahepatic biliary ductal dilation. Similar extrahepaticbiliary ductal dilation, measuring up to 10 mm, likely related to priorcholecystectomy. Similar 12 mm right upper pole angiomyolipoma (series 3,image 90). Slight interval increase in size of the heterogeneouslyenhancing right upper pole lesion measuring 15 mm, previously 12 mm(series 503, image 123). Additional too small to characterizelow-attenuation lesions in the bilateral kidneys similar to prior study.No hydronephrosis. Unremarkable spleen. 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 No significant change in the rightindeterminate 18 mm adrenal nodule (series 3, image 73). Suspiciousadrenal findings. No suspicious pancreatic findings. GI Tract/Mesentery/Peritoneum: Small hiatal hernia. The large and smallbowel appear normal in caliber. Large narrowneck duodenal diverticulum isagain noted unchanged (series 503, image 75). Similar ventral abdominalwall hernia containing nonobstructed large bowel loops. No evidence ofinflammatory change. No obstruction. The appendix is not definitivelyvisualized, however no secondary signs of acute appendicitis. Nosuspicious peritoneal/mesenteric findings.. Pelvic Viscera: Postsurgical changes from prior hysterectomy. There isbeen interval development of a mildly peripherally enhancing lesionmeasuring 4.3 x 2.6 cm along the superior vaginal cuff (series 3, ). Lymph Nodes/Vasculature: No lymphadenopathy by CT size criteria, howeverthere is a new rounded somewhat enhancing right internal iliac lymph nodemeasuring 9 mm in short axis (series 3, image 226).. The aortoiliacvasculature is patent and normal in caliber. Mild calcific atheroscleroticplaque involving the abdominal aorta and common iliac arteries. Free Fluid:No ascites Musculoskeletal and Body Wall:No aggressive or suspicious findings.Similar appearance of a nonspecific sclerotic focus in T12 vertebral body.Grade 1 anterolisthesis of L4 on L5, unchanged. IMPRESSION: Chest: No evidence of disease progression. Similar 5 mm right upper lobepulmonary nodule. Abdomen/Pelvis: 1.Postsurgical changes from prior hysterectomy. Interval development of aperipherally enhancing lesion along the superior vaginal cuff concerningfor local recurrence. 2.Subcentimeter right internal iliac lymph notes with suspicious featureand enhancement concerning for disease involvement. CRITICAL RESULT: No. COMMUNICATION: Per this written report. By electronically signing this report, I, the attending physician, attestthat I have personally reviewed the images/data for the aboveexamination(s) and agree with the final edited report. 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 [place], [place] [id number] Referring Physician 03/10/21 Cnorado Iqbal MD [address] [place] [address] Service Attending Cardiology 08/19/22 documented as of this encounter
--- OUTSIDE RECORDS SUMMARY | 2024-07-10 11:58 | XMS_ITS | Encounter Summary ---
Author Organization Healthcare Address [address] [place] [address] Care Team Providers Care Palletizer Operator Name Role Phone Aliyah Valencia MD Unavailable [phone] Flaquita Dorsey DO Primary Care Provider [phone] Conrado Iqbal MD Unavailable Encounter Details Date Type Department Care Team (Latest Contact Info) Description 12/14/2022 12:44 PM EDT - 12/14/2022 11:59 PM EDT Hospital Encounter [facility] [address] [address] Malignant neoplasm of female breast, unspecified estrogen receptor status, unspecified laterality, unspecified site of breast (CMS/HCC) Discharge Disposition: [...] - Inhaled Oxygen Concentration - - Weight 79.4 kg (175 lb) 12/14/2022 12:57 PM EDT Height 160 cm (5' 3 ) 12/14/2022 12:57 PM EDT Body Mass Index 31 12/14/2022 12:57 PM EDT documented in this encounter Medications at Time of Discharge aspirin 81 MG chewable tablet Chew 1 tablet (81 mg) 1 (one) time each day. ergocalciferol (Vitamin D-2) 1.25 MG (64484 UT) capsule Take 1 capsule (50,000 Units) [...] MG capsule capsule Take 1 capsule (50 mg total) by mouth 1 (one) time each day. 30 capsule 2 09/01/2022 3 Flaxseed, Linseed, (Flaxseed Oil) 1000 MG capsule Take 1 tablet by mouth 1 (one) time each day. 4 fluocinolone (Synalar) 0.01 % external solution fluocinolone 0.01 % topical solution APPLY TO THE AFFECTED AREA(S) ON SCALP BY TOPICAL ROUTE 2 TIMES PER DAY X 2 WEEKS PRN FLARES 3 gabapentin (Neurontin) 400 MG capsule Take 1 capsule (400 mg total) by mouth 3 (three) times a day. 90 capsule 2 08/10/2022 3 levothyroxine (Synthroid, Levoxyl) 75 MCG tablet Take [...] AM EST Office Visit [facility] 800 [facility] [address] [place] [address] Penelope Carmona MD 800 [facility] [address] [facility] [address] [place] [address] 08/05/2024 9:30 AM EST Appointment [facility] 1 [address] [place] [address] 02/26/2025 9:30 AM EDT Appointment [facility] [address] [facility] [address] [place] [address] 02/26/2025 10:30 AM EDT Office Visit [facility] [address] [facility], [address]nd [place] [phone] Berenice Resendez, WIRE COILER [address] [facility] Joelle [facility] [address] [place] [address] documented as of this encounter Procedures Procedure Name Priority Date/Time Associated Diagnosis Comments MAMMOGRAPHY BREAST SCREENING TOMOSYNTHESIS BILATERAL Routine 12/14/2022 1:13 PM EDT Malignant neoplasm of female breast, unspecified estrogen receptor status, unspecified laterality, unspecified site of breast (CMS/HCC) documented in this encounter Results * Mammography Breast Screening Tomosynthesis Bilateral (12/14/2022 1:13 PM EDT) Anatomical Region Laterality Modality Breast Bilateral Mammography Impressions 12/14/2022 1:58 PM EDT No mammographic evidence of malignancy. BI-RADS [...] version of the imaging report. ?? Narrative 12/14/2022 1:58 PM EDT EXAM: Mammography Breast Screening with Tomosynthesis REASON FOR EXAM: Screening Mammogram HISTORY: Patient is 77 y.o. Family medical history includes breast cancer [...] left lumpectomy, 2017 (malignant); [facility] left breast surgery, 2000 (malignant); left breast surgery, 2016 (malignant); left breast lumpectomy, 2000 (malignant); and left breast lumpectomy, 2016 (malignant). Medical history includes breast cancer; radiation therapy; and chemotherapy. COMPARISON STUDIES: Compared to: 04/25/2019 Mammography Breast Diagnostic Tomosynthesis Bilateral at [facility] 12/02/2019 Mammography Breast Diagnostic Tomosynthesis Bilateral at [facility] 06/08/2020 Mammography Breast Diagnostic Tomosynthesis Left at [facility] 12/08/2020 Mammography Breast Diagnostic Tomosynthesis Bilateral at [facility] 12/14/2021 Mammography Breast Diagnostic Tomosynthesis Bilateral at [facility] BREAST COMPOSITION: The breasts have scattered areas of fibroglandular density. FINDINGS: There are post-lumpectomy changes present in the left breast. There is no evidence of suspicious masses, calcifications, or other abnormal findings. 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, unspecified estrogen receptor status, unspecified laterality, unspecified site of breast (CMS/HCC) documented in this encounter Additional Health Concerns Assessment Noted Time A fall risk assessment has been complete d for the patient 12/14/2022 2:13 PM EDT A Body Mass Index follow-up plan has been documented for the patient 08/19/2022 9:30 AM EST documented as of this encounter Care Teams Palletizer Operator Relationship Specialty Start Date End Date Flaquita Dorsey DO [address] [place] [address] PCP - General 12/14/21 Aliyah Valencia MD [address] [place] [address] Referring Physician 03/10/21 Conrado Iqbal MD [address] [place] [phone] Service Attending Cardiology 08/19/22 documented as of this encounter
--- OUTSIDE RECORDS SUMMARY | 2024-07-10 11:58 | XMS_ITS | Encounter Summary ---
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, unspecified (CMS/HCC) Procedures CT Abdomen Pelvis w IV Contrast Penelope Carmona MD [address] [address] Phone: tel: fax: Referral ID Status Reason Start Date Expiration Date Visits Re quested Visits Authorized [id number] Closed 01/10/2023 07/11/2024 1 1 * Imaging (Routine) - Closed Specialty Diagnoses / Procedures Referred By Contshena t Referred To Contact Radiology Diagnoses Carcinoma of fallopian tube, 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, unspecified (CMS/HCC) Procedures CT Chest w IV Contrast Penelope Carmona MD [address] [address] Phone: tel: fax: Referral ID Status Reason Start Date Expiration Date Visits Re quested Visits Authorized [id number] Closed 01/10/2023 07/11/2024 1 1 Reason for Visit * Imaging (Routine) - Closed Specialty Diagnoses / Procedures Referred By Contac t Referred To Contact Radiology Diagnoses Carcinoma of fallopian tube, 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, unspecified (CMS/HCC) Procedures CT Abdomen Pelvis w IV Contrast Penelope Carmona MD [address] [place] [address] [facility] [address] [place] [address] Phone: tel: fax: Referral ID Status Reason Start Date Expiration Date Visits Re quested Visits Authorized [id number] Closed 01/10/2023 07/11/2024 1 1 Encounter Details Date Type Department Care Team (Latest Contact Info) Description 03/13/2023 12:09 PM EDT - 03/13/2023 11:59 PM EDT Hospital Encounter [facility] [address] [place] [address] Carcinoma of fallopian tube, unspecified laterality (CMS/HCC); Malignant neoplasm of peritoneum, unspecified (CMS/HCC) Discharge Disposition: Home or Self Care [...] Everywhere. * Contrast Imaging Discharge Instructions ([place]) (Malay) documented in this encounter Medications at Time of Discharge aspirin 81 MG chewable tablet Chew 1 tablet (81 mg) 1 (one) time each day. ergocalciferol (Vitamin D-2) 1.25 MG (81383 UT) capsule Take 1 capsule (50,000 Units) [...] (one) time each day. 30 capsule 2 01/09/2023 3 cyclophosphamide (Cytoxan) 50 MG capsule capsule Take [...] AM EST Office Visit [facility]ne[facility] [address] [facility] [address] [place] [phone] Penelope Carmona MD [address] [facility] [address] [facility] [address] [place] [address] 08/05/2024 9:30 AM EST Appointment [facility] [address] [place] [address] 02/26/2025 9:30 AM EDT Appointment [facility] [address] [facility] [address] [place] [address] 02/26/2025 10:30 AM EDT Office Visit [facility] [address] [facility] [place] [phone] Berenice Resendez, TAX COMPLIANCE OFFICER [address] [facility] [address] [facility] [address] [place] [address] documented as of this encounter Procedures Procedure Name Priority Date/Time Associated Diagnosis Comments CT ABDOMEN PELVIS W IV CONTRAST Routine 03/13/2023 1:21 PM EDT Carcinoma of fallopian tube, 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 Lymph Nodes/Vasculature: No lymphadenopathy by CT size [...] Bhavani Castillo MD on 03/13/2023 3:52 PM us Penelope Dodson MD IMG CT PROCEDURES Arnaldo [...] Bhavani Castillo MD on 03/13/2023 3:52 PM us Penelope Dodson MD IMG CT PROCEDURES Arnaldo beba Result - Final * POCT creatinine (03/13/2023 1:00 PM EDT) Pathologist [facility] Creatinine, Point of Care 0.7 0.6 - 1.1 mg/dL 03/13/2023 1:02 PM EDT [facility] POCT eGFR 89 mL/min/1. 73m*2 03/13/2023 1:02 PM EDT [facility] Diamond Mounter ID Bryanna Gan 03/13/2023 1:02 PM EDT [email or web address] Device ID [id number] 03/13/2023 1:02 PM EDT [facility] Comment 03/13/2023 1:02 PM EDT [email or web address] Comment:Testing performed on i-STAT at the point of care. Reported eGFRcr in mL/min/1.73m2 is based the CKD-EPI 2020 equation that does not use a race coefficient. 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, unspecified (CMS/HCC) Malignant neoplasm of peritoneum, unspecified documented in this encounter Administered Medications Inactive Administered Medications - up to 3 most recent administrations Medication Order MAR Action Action Date Dose Rate Site iohexol (OMNIPaque) 300 MG/ML injection 100 mL 100 mL, Intravenous, Once in imaging, 1 dose, Starting on Mon03/13/23 at 1230, Until Mon03/13/23 at 1309, Routine, Imaging Protocol Orders Given 03/13/2023 1:09 PM EDT 100 mL iohexol (OMNIPaque) 9 MG/ML oral contrast 500 mL 500 mL, Oral, Once in imaging, 1 dose, Starting on Mon03/13/23 at 1230, Until Mon03/13/23 at 1235, Routine, Imaging Protocol Orders Given 03/13/2023 12:35 PM EDT 500 mL documented in this encounter Additional Health Concerns Assessment Noted Time A fall risk assessment has been complete d for the patient 01/09/2023 10:06 AM EDT A Body Mass Index follow-up plan has been documented for the patient 08/19/2022 9:30 AM EST documented as of this encounter Care Teams Belt Puncher Relationship Specialty Start Date End Date Flaquita Dorsey DO [address] [place] [address] PCP - General 12/14/21 Aliyah Valencia MD [address] [place] [place] [address] Referring Physician 03/10/21 Conrado Iqbal MD [address] [place] [address] Service Attending Cardiology 08/19/22 documented as of this encounter
--- OUTSIDE RECORDS SUMMARY | 2024-07-10 11:58 | XMS_ITS | Encounter Summary ---
Author Organization Healthcare Address [address] [place], [place] [id number] Care Team Providers Care Senior Systems Programmer Name Role Phone Aliyah Valencia MD Unavailable Flaquita Dorsey DO Primary Care Provider [phone]- [phone] Conrado Iqbal MD Unavailable Reason for Visit * Reason Comments Chemotherapy Encounter Details Date Type Department Care Team ([facility] st Contact Info) Description 08/31/2022 2:00 PM EST Office Visit [facility] [address] [facility] [address] [place] [phone] Penny Carmona MD [address] [facility] [address] [facility] [address] [place] [address] Carcinoma of fallopian tube, unspecified laterality (CMS/HCC) (Primary Dx); Obesity (BMI 30-39.9); Neuropathy Social History Tobacco [...] PM EST documented as of this encounter Last Filed Vital Signs Vital Sign Reading Time Taken Comments Blood Pressure 115/77 08/31/2022 2:02 PM EST Pulse 99 08/31/2022 2:02 PM EST Temperature 36.9 ??C (98.4 ??F) 08/31/2022 2:02 PM ES T Respiratory Rate 12 08/31/2022 2:02 PM EST Oxygen Saturation 92% 08/31/2022 2:02 PM EST Inhaled Oxygen Concentration - - Weight 79.3 kg (174 lb 12.8 oz) 08/31/2022 2:02 PM EST Height 160 cm (5' 3 ) 08/31/2022 2:02 PM EST Body Mass Index 30.96 08/31/2022 2:02 PM EST documented in this encounter Miscellaneous Notes * Progress Notes - Penny aCrmona MD - 08/31/2022 2:00 PM EST Primary Care Provider: Flaquita Dorsey DO History of Present Illness: Chief complaint: 76 yo female here for cycle 6 Dana/oral cytoxan. (Dana discontinued today) Oncologic history is as follows: Oncology History [...] were negative for metastatic disease. ER and NE were strongly positive and HER-2 was negative. [...] ER positive in 90% of the cells, NE positive in 95% of cells andHER-2 negative by IHC at 0. On 10/04/2016 she underwent a left needle localized lumpectomy. Thaxton lymph node biopsy was not performed as [...] vagina). Initiated neoadjuvant chemo with carbo/Taxol per INSURANCE PLAN SPECIALIST followed by BSO/Omentectomy and adjuvant Carbotaxol. Recurrence in March 2019. Treated with carbo initially followed by Olaparib. 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 She is currently off of therapy. She follows with Dr. Hutchins in Media Production Support Manager/Onc. 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 Recurrence - First recurrence, grand ronde tribes sensitive - CT 04/10/19 with 3 cmlesion at cuff - Ca125 12 (from 8) - MTB discussion: recommend trial if progression on grand ronde tribes regimen or consider Parp for RAD 51 [...] ccy for choledocolithiasis 2019 (SGB) - Ca125: 30-2-1-7-7-9-8 - Started Parp inhibitor 09/2019 - Dose [...] concerning findings - Most recent Ca125 7.49 (97244) 06/30/2021 Recurrence - Third recurrence, grand ronde tribes sensitive - CT 06/30/2021 shows vaginal cuff [...] seen 04/11/2022 Recurrence - Fourth recurrence, grand ronde tribes resistant - CT 04/11/2022 with increase in size of mass at apex of vagina to 5 cm from 3.6 cm 04/18/2022 - Chemotherapy - Dana, oral Cytoxan started 04/25/2022 (held 04/18 for 24 hr urine) - Ca125 12.2-6.21-6.37-5.99-6.23-5.61 - Cycle 4 Dana held for chest pain workup, resumed after ok by cardio-oncology - CT 08/10/2022 (after 4 cycles): Resolution of vaginal cuff mass, no new findings - Dana stopped after cycle 5 due to CV symptoms 05/16/2022 Genetic Testing Caris Actionable mutations: ER (Hormone therapy), ALEKSEY High (Parp), PDL1 (Pembro) Other findings: Rad51D, TP53, MMR proficient, MSI stable, TMB low Interval updates to history: Oncologic treatment history as described above reviewed today as well as PMH/PSH/Meds/All/SH/FH, with updates made as appropriate. Patient is here today for cycle 6 of Dana and to monitor toxicity of oral Cytoxan. Since last visit had another episode of acute CP. Got heart cath. Reports she was told she had some plaque on a valve and some mild atherosclerotic disease but required not stents or other interventions. Was told she could continue Dana. Referred to GI to see if pain she has is related to GI tract. Has not seen them yet. Denies VB. Increased Gabapentin forneuropathy at last visit and thinks this may be helping. Has had a couple episodes lately of left hand going numb and also right foot. PMH: h/o breast cancer x2, ?cervical cancer, [...] years ago, no drugs, retired, lives in [place]. FamHx: Father-prostate, MGma-colon. ROS: 14 pt ROS performed with pertinent positives and negatives as noted in HPI. ROS otherwise negative Objective Physical Exam: Vital Signs for this encounter: BSA: 1.88 meters squared Visit Vitals BP 115/77 Pulse 99 Temp 36.9 ??C (98.4 ??F) Resp 12 Ht 1.6 m (5' 3 ) Wt 79.3 kg (174 lb 12.8 oz) LMP 11/17/1981 (Approximate) SpO2 92% BMI 30.96 kg/m?? OB Status Hysterectomy Smoking Status Former BSA 1.88 m?? Physical Exam Vitals and nursing note [...] soft. Tenderness: There is no abdominal tenderness. There is no guarding. Skin: General: Skin is warm and dry. Coloration: Skin is not jaundiced. Findings: No bruising. Neurological: Mental Status: She is alert and oriented to person, place, and time. Mental status is at baseline. Psychiatric: Mood and Affect: Mood normal. Behavior: Behavior normal. Thought Content: Thought content normal. Judgment: Judgment normal. Performance Status: Asymptomatic PS= 0 Results: CBC WBC 4.55 Hgb 13.3 PLT 197 HCT 39.4 Lab Results Component Value Date NEUTROABS 2.92 08/31/2022 BASIC METABOLIC PANEL Na 137 Cl 102 BUN 26 Gluc 122 K 3.8 Co2 23 Creat 0.88 LIVER FUNCTION TESTING Tot Prot 6.7 AST 18 Tot bili 0.4 ALT 12 Alkphos 64 Ca 9.5 Mg 1.3 Phos No results found for requested labs within last 8760 hours. === 08/10/22 === CT ABDOMEN PELVIS W IV CONTRAST - Narrative - Exam/Procedure: CT CHEST W IV CONTRAST ordered by PENNY DODSON, [id number] CLINICAL INDICATION: Ovarian cancer, assess treatment response TECHNIQUE: Multiple axial CT images were obtained from thoracic inlet through pubic symphysis following administration of IV contrast, Omnipaque 350, 100 mL. Reformatted images of the abdomen and pelvis in the coronal and sagittal planes were generated from the axial data set to facilitate diagnostic accuracy. Total DLP (Dose-Length Product): 536.25 mGy.cm. Please note: The reported value represents the total of one or more individual components during the CT acquisition on this date and at this time, and as such, the same value may appear in more than one CT report depending on the interpreting/reporting physicians. COMPARISON: CT chest, abdomen and pelvis from 04/11/2022 FINDINGS: Chest: Lymph Nodes and Mediastinum: No lymphadenopathy by CT size criteria. No mediastinal mass lesions. No suspicious thyroid findings. Cardiovascular: The heart is normal in size. Thoracic great vessels are patent with proximal calcification of the aortic arch branching vessels.. Coronary artery and aortic valve calcification. Rightchest wall port with tip at the superior cavoatrial junction. Lungs and Pleura: Centrilobular result patent. Bibasilar atelectasis. No suspicious lung nodules tosuggest metastatic disease. Unchanged right upper lobe 2 mm nodule (series 4 image 68). No pleural effusions or suspicious thickening. Musculoskeletal and Body Wall: No clearly aggressive bone lesions. Multilevel degenerative changes of the spine. Unchanged asymmetric left breast soft tissue with multiple adjacent surgical clips. Nosignificant axillary adenopathy. Abdomen/Pelvis: Solid Abdominal Organs: Homogenous hepatic enhancement. Tiny low-attenuation focus along the falciform ligament remains unchanged (series 4 image 48). No new suspicious liver lesion. Postcholecystectomy with mild ectasia of the extra hepatic bile duct. Unremarkable spleen, pancreas. Unchanged left adrenal gland myelolipoma. Indeterminate right adrenal gland nodule measures 2.2 cm, similar to prior. Symmetric renal enhancement. 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 Adjacent enhancing nodule measuring 10 mm is also unchanged (series 3, image 89). No hydronephrosis. GI Tract/Mesentery/Peritoneum: Stomach is within normal limits. Large diverticulum from the descending segment of the duodenum. The large and small bowel appear normal in caliber. Ventral abdominal wall hernia containing nondilated small bowel and portion of the sigmoid colon. No evidence of inflamm atory change or obstruction. No suspicious peritoneal/mesenteric findings. Pelvic Viscera: Appropriately distended urinary bladder with resolution of previously noted wall thickening. Interval resolution of previously noted heterogeneous mass centered within the vagina cuff. No new pelvic masses. Lymph Nodes/Vasculature: No lymphadenopathy by CT size criteria. The aortoiliac vasculature is patent and normal in caliber. Free Fluid: No free fluid in the abdomen or pelvis. Musculoskeletal and Body Wall: No aggressive or suspicious findings. Grade 1 anterolisthesis of L4 on L5. Multilevel degenerative changes of the spine. - Impression - Chest: No evidence of metastatic disease within the chest. Abdomen/Pelvis: Interval resolution of previously noted vaginal cuff mass. No new pelvic masses. No adenopathy. Unchanged right adrenal gland indeterminate nodule. CRITICAL RESULT: No. COMMUNICATION: Per this written report. 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 - Completed 6 cycles of single agent Carbo 10/2021. - CT OSH 12/2021 JARED. - CT 04/11/2022 shows progression at cuff with no other disease - Caris testing requested - Yuhaaviatam resistant (5 month interval). Will not use [...] continue Dana. - CT after 4 cycles shows interval resolution of vaginal mass and no further disease. - Has now had additional CP episode and heart cath performed. No severe disease noted and bsa/aml compliance officer reports ok to continue Dana. However, also having random episodes of numbness in limbs (separate from baseline neuropathy). Can not rule out this would be a TIA vs other etiology. Discussed this atlength today with patient and why there is some hesitancy to continue VEG-F inhibitor with these symptoms. Given complete response on imaging, risks may outweigh benefits to continue Dana. Patient elects to stop Dana at this time. Will continue oral Cytoxan with visits for toxicity and efficacy monitoring q 2 months. Will continue lab checks q month. Problem 2: Vaginal bleeding Assessment and plan 2: - Likely due to growing mass at cuff - May make protein in urine look higher than it is - Bleeding decreased since starting Dana/Cytoxan and now resolved - CT after 4 cycles shows resolution of vaginal mass, which was likely source of this symptom - Monitor Problem 3: Cervical cancer Assessment and plan 3: - Distant history, senior care survivor. 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 Problem 4: History of left breast cancer x 2 Assessment and plan 4: - s/p anastrazole. No current signs of disease Problem 5: Neuropathy Assessment and plan 5: - Treatment related. Worst at night. - Will not use Taxol again. - Increased Gabapentin to 400 mg TID at last visit and thus far this dose is helping. Problem 6: h/o syncope episodes and carotid stenosis, now with chest tightness over 2021 and in July 2022 Assessment and plan 6: - Has been followed in past with cards at - Seen by cardiology at [facility] and acute workup negative but diagnostic cath recommended. Patient declined and uncertain about necessity of this - Held Dana while assessing her cardiac risk - Second opinion with oncocardiology 06/27/2022 - pain likely related to CAD. - Repeat chest discomfort episode since last visit. Heart cath done and no stenting required. Ok tocontinue Dana per cards, but risks may outweigh benefits since last CT JARED Problem 7: Obesity Assessment and plan 7: - Body mass index is 30.96 kg/m??. - Affects all aspects of care [...] orders, phlebotomy, chemo related decision making and prescription Penny Dodson MD [facility] [address] [place] [address] [facility] [address] Dept: [phone] Dept Loc: [phone] * Progress Notes - Yessy Greene, PharmD - 08/31/2022 2:00 PM EST Pharmacy Hematology/Oncology Treatment Plan Note Daniela John is a 76 y.o. 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 [...] Stage Unknown (rpT1c, pNX, cM0, G2, ER+, NE+, HER2-) - Signed by Cara Greene MD on 06/19/2021 Study Patient: No Treatment Protocol: Cyclophosphamide continuous PO therapy Treatment Plan reviewed for: [x] Follow-Up Clinical Review for Continuous Oral Therapy Interval History: Ms. John's CT shows localized progression. Will switch therapy to Bevacizumab and oral Cyclophosphamide. Labs to be re-evaluated by pharmacy satellite prior to treatment on 04/18/22. 04/25/22: Treatment delayed 1 week due to 100+ protein on UA. Patient performed a 24 hour urine collection which resulted total urine protein as 35 mg/dL. Okay to proceed with treatment today. 06/06: Urine protein normal today, BP normal, OK to proceed with treatment today pending CMP result. 07/20: Patient evaluated by cardiooncology and felt appropriate for resumption of treatment. Will proceed with Cycle 4 today. 08/31/22: Patient mentioned some intermittent neuropathy/numbness for several minutes at a time with different extremities involved. Due to the cardiac concerns noted over the past few months, JARED on scans, and current symptoms, the decision was made today to d/c bevacizumab and continue on cyclophosphamide PO only. Will also transition to monthly labs. Dosing Wt: 84 kg Today's Wt: Wt Readings from Last 1 Encounters: 08/31/22 79.3 kg (174 lb 12.8 oz) Dosing Ht: 160 cm DosingBSA: 1.88 m2 Recent Labs: Lab Results Component Value Date WBC 4.55 08/31/2022 HGB 13.3 08/31/2022 HCT 39.4 08/31/2022 MCV 99 (H) 08/31/2022 PLT 197 08/31/2022 Lab Results Component Value Date GLUCOSE 122 (H) 08/31/2022 CALCIUM 9.5 08/31/2022 NA 137 08/31/2022 K 3.8 08/31/2022 CO2 23 08/31/2022 CL 102 08/31/2022 BUN 26 (H) 08/31/2022 CREATININE 0.88 08/31/2022 Lab Results Component Value Date ALT 12 08/31/2022 AST 18 08/31/2022 ALKPHOS 64 08/31/2022 BILITOT 0.4 08/31/2022 Lab Results Component Value Date NEUTROABS 2.92 08/31/2022 Lab Results Component Value Date MG 1.3 (L) 11/17/2021 No results found for: TSH Lab Results Component Value Date URINEPRO Negative 08/10/2022 Vitals: Vitals: 08/31/22 1402 BP: 115/77 Pulse: 99 Resp: 12 Temp: 36.9 ??C (98.4 ??F) SpO2: 92% Other Relevant Monitoring: None Treatment Plan: Cyclophosphamide 50 mg PO daily [x] No dose adjustments made Current Treatment Plan History: Oral Cyclophosphamide continuously Start 08/31/22 Prior Chemotherapy History: hormone therapy for prior [...] #3: 06/06/22 #4: 07/20/22 #5: 08/10/22 Assessment/Plan: Rx Sent to: [facility] Refills due: November 2022 I reviewed the patient's chart and chemotherapy orders were approved. Patient will return to clinic in [address] to see Dr. Hutchins. Will follow-up at thattime. Pharmacist Attestation: Yessy Greene PharmD PGY2 Hematology/Oncology Sales Designer Cosigned by Serena Xiong PharmD at 09/01/2022 9:15 AM EST Associated attestation - Serena Xiong PharmD - 09/01/2022 9:15 AM EST I saw and evaluated the patient with the resident/fellow. I discussed the case with the resident/fellow and agree with the findings and plan as documented. Serena Xiong PharmD, [facility] Hematology/Oncology Clinical Pharmacist documented in this encounter Plan of Treatment Upcoming Encounters Date Type Department Care Team (Late st Contact Info) Description 08/05/2024 8:00 AM EST Office Visit [facility] Gynecology [address] [facility] [address] [place] [phone] Penny Carmona MD [address] [facility] [address] [facility] [address] [place] [address] 08/05/2024 9:30 AM EST Appointment [facility] [address] [place] [phone] 02/26/2025 9:30 AM EDT Appointment [facility] [place] [address] [address] [facility] [address] [place] [address] 02/26/2025 10:30 AM EDT Office Visit [facility] Breast Care Center [address] [facility] [place] [phone] Berenice Resendez, JAVA WEB DEVELOPER [address] [facility] [address] [facility] [address] [place] [phone] documented as of this encounter Procedures Procedure Name Priority Date/Time Associated Diagnosis Comments CBC WITH AUTO DIFFERENTIAL Routine 08/31/2022 2:26 PM EST Carcinoma of fallopian tube, unspecified laterality (CMS/HCC) CA 125 Routine 08/31/2022 2:26 PM EST Carcinoma of fallopian tube, unspecified laterality (CMS/HCC) COMPREHENSIVE METABOLIC PANEL, PLASMA Routine 08/31/2022 2:26 PM EST Carcinoma of fallopian tube, unspecified laterality (CMS/HCC) documented in this encounter Results * CA 125 (08/31/2022 2:26 PM EST) CA 125 5.27 <=38.00 U/mL 08/31/2022 4:45 PM EST [facility] Blood Blood sample taken from central line / Unknown (Port) Long-term Catheter / Unknown 08/31/2022 2:26 PM EST 08/31/2022 2:49 PM EST Narrative [facility] - 08/31/2022 4:45 PM EST Performed by Stephie electrochemiluminescent immunoassay. Results obtained with different test methods or kits cannot be used interchangeably. us Penny Dodson MD LAB BLOOD ORDERABLES Final Result [facility] [address] [place] [address] * (ABNORMAL) Comprehensive metabolic panel (08/31/2022 2:26 PM EST) Glucose, Plasma 122(H) 74 - 99 mg/dL 08/31/2022 3:21 PM EST [facility] BUN, Plasma 26(H) 8 - 23 mg/dL 08/31/2022 3:21 PM EST [facility] Creatinine, Plasma 0.88 0.60 - 1.10 mg/dL 08/31/2022 3:21 PM EST [facility] BUN/Creatinine Ratio 30 08/31/2022 3:21 PM EST [facility] Sodium, Plasma 137 136 - 145 mmol/L 08/31/2022 3:21 PM EST [facility] Potassium, Plasma 3.8 3.7 - 4.8 mmol/L 08/31/2022 3:21 PM EST [facility] Comment:Reference range for Serum potassium is 0.2 to 0.5 mmol/L higher than Plasma range. Chloride, Plasma 102 97 - 107 mmol/L 08/31/2022 3:21 PM EST [facility] CO2, Plasma 23 22 - 29 mmol/L 08/31/2022 3:21 PM EST [facility] Anion Gap 12 6 - 16 mmol/L 08/31/2022 3:21 PM EST [facility] Total Calcium, Plasma 9.5 8.9 - 10.2 mg/dL 08/31/2022 3:21 PM EST [facility] Total Protein 6.7 6.3 - 7.9 g/dL 08/31/2022 3:21 PM EST [facility] Albumin, Plasma 4.0 3.5 - 5.2 g/dL 08/31/2022 3:21 PM EST [facility] AST, Plasma 18 9 - 36 U/L 08/31/2022 3:21 PM EST [facility] ALT, Plasma 12 8 - 33 U/L 08/31/2022 3:21 PM EST [facility] Alkaline Phosphatase, Plasma 64 46 - 142 U/L 08/31/2022 3:21 PM EST [facility] Total Bilirubin, Plasma 0.4 0.2 - 1.1 mg/dL 08/31/2022 3:21 PM EST [facility] eGFRcr 68.2 mL/min/1.7 3m*2 08/31/2022 3:21 PM EST [facility] Comment: Reported eGFRcr in mL/min/1.73m2 is based the CKD-EPI 2021 equation that does not use a race coefficient. Effective 02/23/22 our laboratory changed the eGFR calculation to the CKD-EPI 2021 equation from the previously reported eGFR, based on the MDRD equation. ??For comparisons between the two equations, please see laboratory website: ??[email or web address] Blood Blood sample taken from central line / Unknown (Port) Long-term Catheter / Unknown 08/31/2022 2:26 PM EST 08/31/2022 2:49 PM EST us Penny Dodson MD LAB BLOOD ORDERABLES Final Result [facility] [address] [place] [address] * (ABNORMAL) CBC and differential (08/31/2022 2:26 PM EST) WBC Count 4.55 3.70 - 10.30 10*3/uL LAB HEMATOLOGY METHOD 08/31/2022 2:53 PM EST [facility] RBC Count 3.99 3.90 - 5.20 10*6/uL LAB HEMATOLOGY METHOD 08/31/2022 2:53 PM EST [facility] HGB 13.3 11.2 - 15.7 g/dL LAB HEMATOLOGY METHOD 08/31/2022 2:53 PM EST [facility] HCT 39.4 34.0 - 45.0 % LAB HEMATOLOGY METHOD 08/31/2022 2:53 PM EST [facility] Platelet Count 197 155 - 369 10*3/uL LAB HEMATOLOGY METHOD 08/31/2022 2:53 PM EST [facility] MCV 99(H) 79 - 98 fL LAB HEMATOLOGY METHOD 08/31/2022 2:53 PM EST [facility] MCH 33.3(H) 26.0 - 32.0 pg LAB HEMATOLOGY METHOD 08/31/2022 2:53 PM EST [facility] MCHC 33.8 30.7 - 35.5 g/dL LAB HEMATOLOGY METHOD 08/31/2022 2:53 PM EST [facility] RDW 14.6(H) 11.5 - 14.5 % LAB HEMATOLOGY METHOD 08/31/2022 2:53 PM EST [facility] MPV 9.7 8.8 - 12.5 fL LAB HEMATOLOGY METHOD 08/31/2022 2:53 PM EST [facility] nRBC 0.0 <=0.0 per 100 WBCs LAB HEMATOLOGY METHOD 08/31/2022 2:53 PM EST [facility] Differential Type Automated LAB HEMATOLOGY METHOD 08/31/2022 2:53 PM EST [facility] Neutrophils % 64.0 % LAB HEMATOLOGY METHOD 08/31/2022 2:53 PM EST [facility] Lymphocytes % 20.0 % LAB HEMATOLOGY METHOD 08/31/2022 2:53 PM EST [facility] Monocytes % 7.0 % LAB HEMATOLOGY METHOD 08/31/2022 2:53 PM EST [facility] Eosinophils % 8.0 % LAB HEMATOLOGY METHOD 08/31/2022 2:53 PM EST [facility] Basophils % 1.0 % LAB HEMATOLOGY METHOD 08/31/2022 2:53 PM EST [facility] Immature Granulocytes % 0.0 % LAB HEMATOLOGY METHOD 08/31/2022 2:53 PM EST [facility] Neutrophils Absolute 2.92 1.60 - 6.10 10*3/uL LAB HEMATOLOGY METHOD 08/31/2022 2:53 PM EST [facility] Lymphocytes Absolute 0.92(L) 1.20 - 3.90 10*3/uL LAB HEMATOLOGY METHOD 08/31/2022 2:53 PM EST [facility] Monocytes Absolute 0.32 0.30 - 0.90 10*3/uL LAB HEMATOLOGY METHOD 08/31/2022 2:53 PM EST [facility] Eosinophils Absolute 0.35 0.00 - 0.50 10*3/uL LAB HEMATOLOGY METHOD 08/31/2022 2:53 PM EST [facility] Basophils Absolute 0.03 0.00 - 0.10 10*3/uL LAB HEMATOLOGY METHOD 08/31/2022 2:53 PM EST [facility] Immature Granulocytes Absolute 0.01 0.00 - 0.06 10*3/uL LAB HEMATOLOGY METHOD 08/31/2022 2:53 PM EST [facility] Blood Blood sample taken from central line / Unknown (Port) Long-term Catheter / Unknown 08/31/2022 2:26 PM EST 08/31/2022 2:50 PM EST Narrative [facility] - 08/31/2022 2:53 PM EST Therapeutic decision making should be based on absolute values, rather than percentages. us Penny Dodson MD LAB BLOOD ORDERABLES Final Result [facility] [address] [place] [address] documented in this encounter Visit Diagnoses Diagnosis Carcinoma of fallopian tube, unspecified laterality (CMS/HCC)- Primary Obesity (BMI 30-39.9) Neuropathy Mononeuritis of unspecified site documented in this encounter Additional Health Concerns Assessment Noted Time A fall risk assessment has been complete d for the patient 08/31/2022 2:06 PM EST A Body Mass Index follow-up plan has been documented for the patient 08/19/2022 9:30 AM EST documented as of this encounter Care Teams Senior Systems Programmer Relationship Specialty Start Date End Date Flaquita Dorsey DO [address] [place], [place] [phone] PCP - General 12/14/21 Aliyah Valencia MD [address] [place] [address] Referring Physician 03/10/21 Conrado Iqbal MD [address] [place] [phone] Service Attending Cardiology 08/19/22 documented as of this encounter
--- OUTSIDE RECORDS SUMMARY | 2024-07-10 11:58 | XMS_ITS | Encounter Summary ---
Author Organization Healthcare Address [address] [place] [address] Care Team Providers Care Tile Burner Name Role Phone Aliyah Valencia MD Unavailable [phone] Flaquita Dorsey DO Primary Care Provider +- [phone] Conrado Iqbal MD Unavailable Encounter Details Date Type Department Care Team (Latest Contact Info) Description 03/13/2023 Travel Social History Tobacco Use Types Packs/Day [...] AM EST Office Visit [facility] 800 [facility] [address] [place] [address] Penelope Carmona MD 800 [facility] [address] [place] [address] 08/05/2024 9:30 AM EST Appointment [facility] 1 [address] [place] [address] 02/26/2025 9:30 AM EDT Appointment [facility] [address] [place] [address] 02/26/2025 10:30 AM EDT Office Visit [facility] [address] [facility], 2nd [place] [address] Berenice Resendez D, PE[employer]OFT CRM DEVELOPER 800 [facility] [address] [place] [address] documented as of this encounter Visit Diagnoses Not on filedocumented in this encounter Additional Health Concerns Assessment Noted Time A fall risk assessment has been complete d for the patient 01/09/2023 10:06 AM EDT A Body Mass Index follow-up plan has been documented for the patient 08/19/2022 9:30 AM EST documented as of this encounter Care Teams Tile Burner Relationship Specialty Start Date End Date Flaquita Dorsey DO [address] [place] [address] PCP - General 12/14/21 Aliyah Valencia MD [address] [place] [place] [address] Referring Physician 03/10/21 Conrado Iqbal MD [address] [place] [address] Service Attending Cardiology 08/19/22 documented as of this encounter
--- OUTSIDE RECORDS SUMMARY | 2024-07-10 11:58 | XMS_ITS | Encounter Summary ---
Author Organization Healthcare Address [address] [place], [place] [id number] Care Team Providers Care Oxygraph Operator Name Role Phone Aliyah Valencia MD Unavailable [phone] Flaquita Dorsey DO Primary Care Provider +[phone]- [phone] Conrado Iqbal MD Unavailable Encounter Details Date Type Department Care Team (Late st Contact Info) Description 12/14/2022 2:30 PM EDT Office Visit [facility] [address] [facility], 2nd [place] [address] Berenice Resendez D, STRATEGIC ACCOUNTS MANAGER 800 [facility] [address] [place] [address] Malignant neoplasm of left breast [...] Sign Reading Time Taken Comments Blood Pressure 132/83 12/14/2022 2:19 PM EDT Pulse 87 12/14/2022 2:19 PM EDT Temperature 36.8 ??C (98.3 ??F) 12/14/2022 2:19 PM ED T Respiratory Rate - - Oxygen Saturation 98% 12/14/2022 2:19 PM EDT Inhaled Oxygen Concentration - - Weight 78 kg (172 lb) 12/14/2022 2:19 PM EDT Height 160 cm (5' 3 ) 12/14/2022 2:19 PM EDT Body Mass Index 30.47 12/14/2022 2:19 PM EDT documented in this encounter Miscellaneous Notes * Progress Notes - Berenice Resendez, STRATEGIC ACCOUNTS MANAGER - 12/14/2022 2:30 PM EDT ONCOLOGY FOLLOW UP NOTE Patient Name: Daniela John Date of : 1945 Encounter date: 12/14/2022 Daniela John is a 77 y.o. female who presents for scheduled medication monitoring and continuingoncology care. Current Treatment Plan: Observation History of Present Illness: Oncology History Overview [...] she underwent a left needle localized lumpectomy. [place] lymph node biopsy was not performed as [...] vagina). Initiated neoadjuvant chemo with carbo/Taxol per SUPERVISOR PAINTING SHIPYARD followed by BSO/Omentectomy and adjuvant Carbotaxol. Recurrence in March 2019. Treated with carbo initially followed by Olaparib. 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 She is currently off of therapy. She follows with Dr. Hutchins in [facility] Supervisor/Onc. 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 Recurrence - First recurrence, [place] sensitive - CT 04/10/19 with 3 cmlesion at cuff - Ca125 12 (from 8) - MTB discussion: recommend trial if progression on pit[place]'s [place] regimen or consider Parp for RAD [...] ccy for choledocolithiasis 2019 (SGB) - Ca125: 07-2-4-7-7-9-8 - Started Parp inhibitor 09/2019 - Dose [...] concerning findings - Most recent Ca125 7.49 (43965) 06/30/2021 Recurrence - Third recurrence, [place] sensitive - CT 06/30/2021 shows vaginal [...] disease seen 04/11/2022 Recurrence - Fourth recurrence, pit[place] resistant - CT 04/11/2022 with increase [...] after cycle 5 due to CV symptoms - CT 11/02/2022 (after 8 cycles): JARED 05/16/2022 Genetic Testing Caris Actionable mutations: ER (Hormone therapy), ALEKSEY High (Parp), PDL1 (Pembro) Other findings: Rad51D, TP53, MMR proficient, MSI stable, TMB low Interval History: She has no breast cancer or treatment related complaints today. She does have a few concerns as relates to her history of ovarian cancer and is scheduled to follow-up with Dr. Hutchins in the next fewweeks. She denies arthralgias or myalgias. She denies nausea or vomiting. She has a DEXA scan performed on a regular basis with her transportation security officer outside of . ROS: A comprehensive 14 point ROS was elicited and was negative except as noted in HPI. Reviewed Past Medical History/Past Surgical History, Current Medications/Allergies, Family and Social History; unchanged from last clinic visit of 06/08/2020 or updated as indicated. Allergies and Adverse Drug Reactions: Calcium, Morphine, Shellfish allergy, and Sulfacetamide Medications: Current Outpatient Medications Medication Instructions aspirin 81 mg, Oral, Daily biotin 1,000 mcg, Oral, Daily cyclophosphamide (CYTOXAN) 50 mg, Oral, Daily ergocalciferol (VITAMIN D-2) 50,000 Units, Oral, Weekly Flaxseed, Linseed, (Flaxseed Oil) 1000 MG capsule Oral fluocinolone (Synalar) 0.01 % external solution fluocinolone 0.01 % topical solution APPLY TO THE AFFECTED AREA(S) ON SCALP BY TOPICAL ROUTE 2 TIMES PER DAY X 2 WEEKS PRN FLARES furosemide (LASIX) 20 mg, Oral, Daily gabapentin (NEURONTIN) 400 mg, Oral, 3 times daily levothyroxine (SYNTHROID, LEVOXYL) 75 mcg, Oral, Daily before breakfast lisinopril 5 mg, Oral, Daily nitroglycerin (Nitrostat) 0.4 MG SL tablet No dose, route, or frequency recorded. potassium chloride ER (Micro-K) 10 MEQ ER capsule 10 mEq, Oral, ZZ 2 times daily RT prochlorperazine (COMPAZINE) 10 mg, Oral, Every 6 hours PRN simvastatin (ZOCOR) 40 mg, Oral, Nightly Performance Status: 2: Ambulatory and capable of all self-care but unable to work. Up & about >50% waking hours Visit Vitals BP 132/83 (BP Location: Right arm, Patient Position: Sitting) Pulse 87 Temp 36.8 ??C (98.3 ??F) (Oral) Ht 1.6 m (5' 3 ) Wt 78 kg (172 lb) LMP 11/17/1981 (Approximate) SpO2 98% BMI 30.47 kg/m?? OB Status Hysterectomy Smoking Status Former BSA 1.86 m?? Physical Examination: GENERAL: Obese female alert [...] insight are unimpaired. Mood and affect appropriate Daniela John is a 77 y.o. 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 Completed 5 years of hormone suppression therapy. RTC in 1 year with me. Screening mammogram in 1 year. DEXA per PCP at [facility]. 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 As always, she is encouraged to contact our office at the number provided for any additional questions or concerns. She voiced understanding of the plan, asked appropriate questions, and all questions were answered to her satisfaction today. 30 minutes was spent on this encounter; including preparing to see the patient, which involved review/interpretation of diagnostics and reports; obtaining and/or reviewing separately obtained history; performing appropriate physical exam; ordering/scheduling medications, tests or procedures; communicating findings and counseling/educating the patient, family and/or caregiver; documentation in EMR; and care coordination. Berenice Resendez APRN Division of Medical Oncology [address] [place] [address] phone [phone] fax documented in this encounter Plan of Treatment Upcoming Encounters Date Type Department Care Team ([facility] st Contact Info) Description 08/05/2024 8:00 AM EST Office Visit [facility] 800 [facility] [address] [place] [address] Penelope Carmona MD [address] [facility] [address] [facility] [address] [place] [address] 08/05/2024 9:30 AM EST Appointment [facility] 1 [address] [place] [address] 02/26/2025 9:30 AM EDT Appointment [facility] [place] [address] [address] [facility] 800 [place] [address] 02/26/2025 10:30 AM EDT Office Visit [facility] [address] [facility], 2nd [place] [address] Berenice Resendez, NICKOLAS 800 [facility] [address] [facility] [address] [place] [address] documented as of this encounter Results * Mammography Breast Screening [...] 12/02/2019 Mammography Breast Diagnostic Tomosynthesis Bilateral at [facility] 12/08/2020 Mammography Breast Diagnostic Tomosynthesis Bilateral at [facility] 12/14/2021 Mammography Breast Diagnostic Tomosynthesis Bilateral at [facility] 12/14/2022 Mammography Breast Screening Tomosynthesis Bilateral at [facility] BREAST COMPOSITION: There are scattered areas of fibroglandular density. FINDINGS: There are post-lumpectomy changes present in the left breast. There is no evidence of suspicious masses, calcifications, or other abnormal findings. us Berenice D Mal STRATEGIC ACCOUNTS MANAGER IMG BI PROCEDURES Final R esult documented in this encounter Visit Diagnoses Diagnosis Malignant neoplasm of left breast in female, estrogen receptor positive, unspecified site of breast (CMS/HCC)- Primary Encounter for screening mammogram for malignant neoplasm of breast Malignant neoplasm of left breast in female, estrogen receptor positive, unspecified site of breast (CMS/HCC) Encounter for screening mammogram for malignant neoplasm of breast documented in this encounter Additional Health Concerns Assessment Noted Time A fall risk assessment has been complete d for the patient 12/14/2022 2:13 PM EDT A Body Mass Index follow-up plan has been documented for the patient 08/19/2022 9:30 AM EST documented as of this encounter Care Teams Oxygraph Operator Relationship Specialty Start Date End Date Flaquita Dorsey DO [address] [place], [place] [phone] PCP - General 12/14/21 Aliyah Valencia MD [address] [place] [place] [address] Referring Physician 03/10/21 Conrado Iqbal MD [address] [place] [address] Service Attending Cardiology 08/19/22 documented as of this encounter
--- OUTSIDE RECORDS SUMMARY | 2024-07-10 11:58 | XMS_ITS | Encounter Summary ---
Author Organization Healthcare Address [address] [place] [address] Care Team Providers Care Senior Medical Transcriptionist Name Role Phone Aliyah Valencia MD Unavailable [phone] Flaquita Dorsey DO Primary Care Provider +- [phone] Conrado Iqbal MD Unavailable Encounter Details Date Type Department Care Team (Latest Contact Info) Description 01/09/2023 Travel Social History Tobacco Use Types Packs/Day [...] AM EST Office Visit [facility] 800 [facility] [address] [place] [address] Penelope Carmona MD 800 [facility] [address] [place] [address] 08/05/2024 9:30 AM EST Appointment [facility] 1 [address] [place] [address] 02/26/2025 9:30 AM EDT Appointment [facility] [address] Building [address] [place] [address] 02/26/2025 10:30 AM EDT Office Visit [facility] 7[address] [facility], 2nd [place] [address] Berenice Resendez D, TOPPIECE CUTTER 800 [facility] [address] [place] [address] documented as of this encounter Visit Diagnoses Not on filedocumented in this encounter Additional Health Concerns Assessment Noted Time A fall risk assessment has been complete d for the patient 01/09/2023 10:06 AM EDT A Body Mass Index follow-up plan has been documented for the patient 08/19/2022 9:30 AM EST documented as of this encounter Care Teams Senior Medical Transcriptionist Relationship Specialty Start Date End Date Flaquita Dorsey DO [address] [place] [address] PCP - General 12/14/21 Aliyah Valencia MD [address] [place] [place] [address] Referring Physician 03/10/21 Conrado Iqbal MD [address] [place] [address] Service Attending Cardiology 08/19/22 documented as of this encounter
--- OUTSIDE RECORDS SUMMARY | 2024-07-10 11:58 | XMS_ITS | Encounter Summary ---
Author Organization Healthcare Address [address] [place], [place] [phone] Care Team Providers Care Brand Designer Name Role Phone Aliyah Valencia MD Unavailable [phone] Flaquita Dorsey DO Primary Care Provider + [phone] Conrado Iqbal MD Unavailable Encounter Details Date Type Department Care Team (Late Contact Info) Description 02/22/2023 Orders Only [facility] 800 [place] [address] Hayley García MD [address] [place] [phone] Social History Tobacco Use Types Packs/Day Years [...] EST Office Visit [facility] Gyne[facility] [address] [place] [address] [place] [address] Penelope Carmona MD 800 [facility] [address] [place] [address] 08/05/2024 9:30 AM EST Appointment [facility] 1 [address] [place] [address] 02/26/2025 9:30 AM EDT Appointment [facility] [address] [facility] 800 [place] [address] 02/26/2025 10:30 AM EDT Office Visit [facility] 7[address] [facility], 2nd [place] [address] Berenice Resendez, ENROLLMENT MANAGEMENT VICE PRESIDENT 800 [facility] [address] [place] [address] documented as of this encounter Visit Diagnoses Not on filedocumented in this encounter Additional Health Concerns Assessment Noted Time A fall risk assessment has been complete d for the patient 01/09/2023 10:06 AM EDT A Body Mass Index follow-up plan has been documented for the patient 08/19/2022 9:30 AM EST documented as of this encounter Care Teams Brand Designer Relationship Specialty Start Date End Date Flaquita Dorsey DO [address] [place] [address] PCP - General 12/14/21 Aliyah Valencia MD [address] [place] [address] Referring Physician 03/10/21 Conrado Iqbal MD 800 [place] [address] Service Attending Cardiology 08/19/22 documented as of this encounter
--- OUTSIDE RECORDS SUMMARY | 2024-07-10 11:58 | XMS_ITS | Encounter Summary ---
Author Organization [facility] Address [address] [id number] Care Team Providers Care Manager Business Name Role Phone Aliyah Valencia MD Unavailable [phone] Flaquita Dorsey DO Primary Care Provider [phone] Conrado Iqbal MD Unavailable Encounter Details Date Type Department Care Team (Late st Contact Info) Description 02/22/2023 Telephone [facility] Gy[facility] [address] [place] [address] Penelope Carmona MD [address] [facility] [address] [place] [address] Social History Tobacco Use Types [...] encounter Miscellaneous Notes * Telephone Encounter - Denzel Lau - 02/22/2023 4:32 PM EDT Patient called requesting a refill on gabapentin 400 mg to be sent to the [facility] in [place], [place].Notified Dr. García, prescription sent in. Denzel Lau documented in this encounter Plan of Treatment Upcoming Encounters Date Type Department Care Team ([facility] st Contact Info) Description 08/05/2024 8:00 AM EST Office Visit [facility] Gy[facility] 800 [facility] [address] [place] [address] Penelope Carmona MD 800 [facility] [address] [facility] [address] [place] [address] 08/05/2024 9:30 AM EST Appointment [facility] 1 [address] [place] [address] 02/26/2025 9:30 AM EDT Appointment [facility] [address] [facility] 800 [place] [address] 02/26/2025 10:30 AM EDT Office Visit [facility] 740 [facility], 2nd [place] [address] Berenice Resendez, BLOW MOULDING MACHINE OPERATOR 800 [facility] [address]elle [facility] [address] [place] [address] documented as of this encounter Visit Diagnoses Not on filedocumented in this encounter Additional Health Concerns Assessment Noted Time A fall risk assessment has been complete d for the patient 01/09/2023 10:06 AM EDT A Body Mass Index follow-up plan has been documented for the patient 08/19/2022 9:30 AM EST documented as of this encounter Care Teams Manager Business Relationship Specialty Start Date End Date Flaquita Dorsey DO [address] [place] [address] PCP - General 12/14/21 Aliyah Valencia MD [address] [place] [address] Referring Physician 03/10/21 Conrado Iqbal MD [address] [place] [address] Service Attending Cardiology 08/19/22 documented as of this encounter
--- OUTSIDE RECORDS SUMMARY | 2024-07-10 11:58 | XMS_ITS | Encounter Summary ---
Author Organization Healthcare Address [address] [place] [address] Care Team Providers Care Supervisor Extruding Department Name Role Phone Aliyah Valencia MD Unavailable [phone] Flaquita Dorsey DO Primary Care Provider + [phone] Cornado Iqbal MD Unavailable Encounter Details Date Type Department Care Team (Latest Contact Info) Description 08/31/2022 Travel Social History Tobacco Use Types Packs/Day [...] Gynecology [address] [place] [address] Penelope Carmona MD [address] [facility] [address] [place] [address] 08/05/2024 9:30 AM EST Appointment [facility] 1 [address] [place] [address] 02/26/2025 9:30 AM EDT Appointment [facility] [address] [place] [address] 02/26/2025 10:30 AM EDT Office Visit [facility] 7[address] [facility], 2nd [place] [address] Berenice Resendez D, MIDDLE SCHOOL COUNSELOR 800 [facility] [address] [place] [address] documented as of this encounter Visit Diagnoses Not on filedocumented in this encounter Additional Health Concerns Assessment Noted Time A fall risk assessment has been complete d for the patient 08/31/2022 2:06 PM EST A Body Mass Index follow-up plan has been documented for the patient 08/19/2022 9:30 AM EST documented as of this encounter Care Teams Supervisor Extruding Department Relationship Specialty Start Date End Date Flaquita Dorsey DO [address] [place] [address] PCP - General 12/14/21 Aliyah Valencia MD [address] [place] [place] [address] Referring Physician 03/10/21 Conrado Iqbal MD [address] [place] [address] Service Attending Cardiology 08/19/22 documented as of this encounter
--- OUTSIDE RECORDS SUMMARY | 2024-07-10 11:58 | XMS_ITS | Encounter Summary ---
Author Organization [facility] Address [address] [place], [place] [id number] Care Team Providers Care Personnel Manager Name Role Phone Aliyah Valencia MD Unavailable [phone] Flaquita Dorsey DO Primary Care Provider [phone] Conrado Iqbal MD Unavailable Reason for Referral * Imaging (Routine) - Closed Specialty Diagnoses / Procedures Referred By Contac t Referred To Contact Radiology Diagnoses Carcinoma of fallopian tube, unspecified laterality (CMS/HCC) Procedures CT Abdomen Pelvis w IV Contrast Penny Carmona MD [address] [address] Phone: tel: fax: Referral ID Status Reason Start Date Expiration Date Visits Re quested Visits Authorized [id number] Closed 09/02/2022 03/03/2024 1 1 * Imaging (Routine) - Closed Specialty Diagnoses / Procedures Referred By Contac t Referred To Contact Radiology Diagnoses Carcinoma of fallopian tube, unspecified laterality (CMS/HCC) Procedures CT Chest w IV Contrast Penny Carmona MD [address] [address] Phone: tel: fax: Referral ID Status Reason Start Date Expiration Date Visits Re quested Visits Authorized [id number] Closed 09/02/2022 03/03/2024 1 1 Reason for Visit * Imaging (Routine) - Closed Specialty Diagnoses / Procedures Referred By Contac t Referred To Contact Radiology Diagnoses Carcinoma of fallopian tube, unspecified laterality (CMS/HCC) Procedures CT Abdomen Pelvis w IV Contrast Penny Carmona MD [address] [facility] [address] [place] [address] Phone: tel: fax: Referral ID Status Reason Start Date Expiration Date Visits Re quested Visits Authorized [id number] Closed 09/02/2022 03/03/2024 1 1 Encounter Details Date Type Department Care Team (Latest Contact Info) Description 11/02/2022 7:49 AM EDT - 11/02/2022 11:59 PM EDT Hospital Encounter [facility] Rad[facility] [address] [place] [address] Carcinoma of fallopian tube, unspecified laterality (CMS/HCC) [...] AM EDT documented as of this encounter Discharge Instructions * Attachments The following attachments cannot be sent through Care Everywhere. * Contrast Imaging Discharge Instructions ([place]) ([place]) documented in this encounter Medications at Time of Discharge aspirin 81 MG chewable tablet Chew 1 tablet (81 mg) 1 (one) time each day. ergocalciferol (Vitamin D-2) 1.25 MG (64711 UT) capsule Take 1 capsule (50,000 Units) [...] a day. 90 capsule 2 08/10/2022 3 ketoconazole (NIZOral) 2 % shampoo ketoconazole 2 % shampoo APPLY TO THE AFFECTED AREA(S), LATHER, LEAVE IN PLACE FOR 5 MINUTES, AND THEN RINSE OFF WITH WATER BY TOPICAL ROUTE QOD 3 levothyroxine (Synthroid, Levoxyl) 75 MCG tablet Take 80 mcg by mouth 1 (one) time each day before breakfast. 3 nitroglycerin (Nitrostat) 0.4 MG SL tablet every 5 (five) minutes if needed. 06/24/2022 4 omeprazole (PriLOSEC) [address] capsule Take 1 capsule (20 mg total) by mouth 1 (one) time each day. Do not crush or chew. 30 capsule 11 08/19/2022 3 prochlorperazine (Compazine) 10 MG tabletIndications :Carcinoma of [...] Upcoming Encounters Date Type Department Care Team ([facility] st Contact Info) Description 08/05/2024 8:00 AM EST Office Visit [facility] Gynecology [address] [facility] [address] [place] [phone] Penny Carmona MD [address] [facility] [address] [facility] [address] [place] [address] 08/05/2024 9:30 AM EST Appointment [facility] [address] [place] [address] 02/26/2025 9:30 AM EDT Appointment [facility] [address] [facility] [address] [place] [address] 02/26/2025 10:30 AM EDT Office Visit [facility] [address] [facility] [place] [phone] Berenice Resendez, MARKETING STRATEGY ANALYST [address] [facility] [address] [facility] [address] [place] [address] documented as of this encounter Procedures Procedure Name Priority Date/Time Associated Diagnosis Comments CT ABDOMEN PELVIS W IV CONTRAST Routine 11/02/2022 8:56 AM EDT Carcinoma of fallopian tube, unspecified laterality (CMS/HCC) CT CHEST W IV CONTRAST Routine 11/02/2022 8:56 AM EDT Carcinoma of fallopian tube, unspecified laterality (CMS/HCC) POCT CREATININE ISTAT UNSOLICITED RESULTS Routine 11/02/2022 8:08 AM EDT documented in this encounter Results [...] IV CONTRAST ordered by PENNY BANERJEE BRANCH, [id number] CLINICAL INDICATION: Surveillance of serous fallopian tube [...] PELVIS W IV CONTRASTordered by PENNY BANERJEE CAMERON, [id number] CLINICAL INDICATION: Surveillance of serous fallopian tube [...] signing this report, I, the attending physician, attyvonnethat I have personally reviewed the images/data for [...] W IV CONTRAST ordered by PENNY DODSON, [id number] CLINICAL INDICATION: Surveillance of serous fallopian tube [...] PELVIS W IV CONTRASTordered by PENNY BANERJEE CAMERON, [id number] CLINICAL INDICATION: Surveillance of serous fallopian tube [...] signing this report, I, the attending physician, attyvonnethat I have personally reviewed the images/data for the aboveexamination(s) and agree with the final edited report. Dictated by Gt Alvarez MD on 11/02/2022 9:34 AM Signed by Katelynn Shah MD on 11/02/2022 1:57 PM Penny Dodson MD IMG CT PROCEDURES Fin al Result * POCT creatinine (11/02/2022 8:08 AM EDT) Creatinine, Point of Care 0.9 0.6 - 1.1 mg/dL 11/02/2022 8:15 AM EDT [facility] POCT eGFR 66 mL/min/1. 73m*2 11/02/2022 8:15 AM EDT [facility] In Flight Refueling Manager ID Karlie Chaves 11/02/2022 8:15 AM EDT [facility] Device ID [id number] 11/02/2022 8:15 AM EDT [facility] Comment 11/02/2022 8:15 AM EDT [facility] Comment: Testing performed on i-STAT at the point of care. Reported eGFRcr in mL/min/1.73m2 is based the CKD-EPI 2021 equation that does not use a race coefficient. Effective 02/23/22 our laboratory changed the eGFR calculation to the CKD-EPI 2021 equation from the previously reported eGFR, based on the MDRD equation. For comparisons between the two equations, please see laboratory website: [email or web address] Venous blood specimen / Unknown 11/02/2022 8:08 AM EDT 11/02/2022 8:15 AM EDT us Generic Provider Poct LAB POINT OF CARE TEST DOCKED DEVICE UNSOLICITED RESULTS Final Result [facility] [address] [place] [address] documented in this encounter Visit Diagnoses Diagnosis Carcinoma of fallopian tube, unspecified laterality (CMS/HCC) documented in this encounter Administered Medications Inactive Administered Medications - up to 3 most recent administrations Medication Order MAR Action Action Date Dose Rate Site iohexol (OMNIPaque) 300 MG/ML injection 100 mL 100 mL, Intravenous, Once in imaging, 1 dose, Starting on Mon11/02/22 at 0751, Until Mon11/02/22 at 0846, Routine, Imaging Protocol Orders Given 11/02/2022 8:46 AM EDT 100 mL iohexol (OMNIPaque) 9 MG/ML oral contrast 500 mL 500 mL, Oral, Once in imaging, 1 dose, Starting on Mon11/02/22 at 0751, Until Mon11/02/22 at 0847, Routine, Imaging Protocol Orders Given 11/02/2022 8:47 AM EDT 500 mL documented in this encounter Additional Health Concerns Assessment Noted Time A fall risk assessment has been complete d for the patient 11/02/2022 10:35 AM EDT A Body Mass Index follow-up plan has been documented for the patient 08/19/2022 9:30 AM EST documented as of this encounter Care Teams Personnel Manager Relationship Specialty Start Date End Date Flaquita Dorsey DO [address] [place] [address] PCP - General 12/14/21 Aliyah Valencia MD [address] [place] [address] Referring Physician 03/10/21 Conrado Iqbal MD [address] [place] [phone] Service Attending Cardiology 08/19/22 documented as of this encounter
--- OUTSIDE RECORDS SUMMARY | 2024-07-10 11:58 | XMS_ITS | Encounter Summary ---
Author Organization [facility] Address Formerly named [facility] [place] [id number] Care Team Providers Care Industrial Controls Technician Name Role Phone Aliyah Valencia MD Unavailable [phone] Flaquita Dorsey DO Primary Care Provider [phone] Conrado Iqbal MD Unavailable Reason for Visit * Reason Comments Follow-up Encounter Details Date Type Department Care Team (Late st Contact Info) Description 11/02/2022 10:30 AM EDT Office Visit [facility] [address] [place] [id number] Ana RosaEly S, CEMENTER [address] [facility] [address] [place] [address] Encounter for antineoplastic chemotherapy (Primary Dx); Malignant neoplasm of fallopian tube, unspecified laterality (CMS/HCC); History of aromatase inhibitor therapy; Malignant neoplasm of left breast in female, [...] AM EDT documented as of this encounter Last Filed Vital Signs Vital Sign Reading Time Taken Comments Blood Pressure 111/58 11/02/2022 10:35 AM EDT Pulse 96 11/02/2022 10:35 AM EDT Temperature 36.6 ??C (97.9 ??F) 11/02/2022 1 0:35 AM EDT Respiratory Rate 13 11/02/2022 10:3 5 AM EDT Oxygen Saturation - - Inhaled Oxygen Concentration - - Weight 79.7 kg (175 lb 11.3 oz) 023 10:35 AM EDT Height 160 cm (5' 3 ) 11/02/2022 10:35 AM EDT Body Mass Index 31.13 11/02/2022 10:35 AM EDT documented in this encounter Miscellaneous Notes * Progress Notes - Ely Camilo, NICKOLAS - 11/02/2022 10:30 AM EDT Primary Care Provider: Flaquita Dorsey DO History of Present Illness: Chief complaint: 77 yo female here for 2 month follow up. Patient reports that last Monday she had an episode of chest pain/tightness that resolved on its own with rest. She states that it felt like bad indigestion. She had episodes of chest pain in May 2022 and July 2022 and that were more severe and required visits to the ED. She was given Nitroglycerin to take, but says that it made her dizzy. She reports taking an aspirin tablet everyday. Denies SOA or dizziness. She has had an increase in headaches, but says that the pain is just annoying. Reports that she has intermittent diarrhea, but she relates this to her right abdominal hernia moving around. States that she has occasional bloating, but no abdominal or pelvic pain. Denies nausea, vomiting, constipation. Reports a good appetite and is staying hydrated. Denies urinary frequency, urgency, burning. Denies vaginal bleeding, pain, discharge. Reports a fall last week while doing housework. She denies injury or hitting her head. States that her neuropathy in her feet makes her unsteady on certain footing. She also has tingling in bilateral hands. Denies new muscle or joint pain/weakness, but reports unchanged arthritis. States that she is not very active and has to complete activities a little bit at a time. She has unchanged swelling in her hands and ankles, and she is currently taking a diuretic. Reports that she has never had a colonoscopy due to not being able to tolerate the bowel prep. She does have a cologuard kit at home that she is planning on completing. Her next mammogram is scheduled for November of this year. She had a DEXA scan a couple of months ago, and her PCP (Dr. Flaquita Dorsey at [facility]) would like for her to get back on Prolia. Oncologic history is as follows: Oncology History [...] were negative for metastatic disease. ER and OH were strongly positive and HER-2 was negative. [...] ER positive in 90% of the cells, OH positive in 95% of cells andHER-2 negative by IHC at 0. On 10/04/2016 she underwent a left needle localized lumpectomy. Grace lymph node biopsy was not performed as [...] vagina). Initiated neoadjuvant chemo with carbo/Taxol per SEASONAL CLERK followed by BSO/Omentectomy and adjuvant Carbotaxol. Recurrence in March 2019. Treated with carbo initially followed by Olaparib. 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 She is currently off of therapy. She follows with Dr. Hutchins in [facility]. 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 Recurrence - First recurrence, [place] sensitive - CT 04/10/19 with 3 cmlesion at cuff - Ca125 12 (from 8) - MTB discussion: recommend trial if progression on [place] regimen or consider Parp for RAD 51 [...] - Required lap ccy for choledocolithiasis 2019 ([facility]) - Ca125: 26-7-6-7-7-9-8 - Started Parp inhibitor 09/2019 - Dose [...] concerning findings - Most recent Ca125 7.49 (54207) 06/30/2021 Recurrence - Third recurrence, [place] sensitive - CT 06/30/2021 shows vaginal cuff [...] disease seen 04/11/2022 Recurrence - Fourth recurrence, [place] resistant - CT 04/11/2022 with increase in [...] years ago, no drugs, retired, lives in [place]. FamHx: Father-prostate, MGma-colon. ROS: 14 pt ROS performed with pertinent positives and negatives as noted in HPI. ROS otherwise negative Objective Physical Exam: Vital Signs for this encounter: BSA: 1.88 meters squared Visit Vitals BP 111/58 Pulse 96 Temp 36.6 ??C (97.9 ??F) Resp 13 Ht 1.6 m (5' 3 ) Wt 79.7 kg (175 lb 11.3 oz) LMP 11/17/1981 (Approximate) BMI 31.13 kg/m?? OB Status Hysterectomy Smoking Status Former [...] CHEST W IV CONTRAST ordered by PENNY HUTCHINS [place], [id number] CLINICAL INDICATION: Ovarian cancer, assess treatment response [...] followed by radiation for additional recurrence - [place] sensitive recurrence diagnosed 06/2021. - Completed 6 cycles of single agent Carbo 10/2021. - CT OSH 12/2021 JARED. - CT 04/11/2022 shows progression at cuff with no other disease - Caris testing requested - [place] resistant (5 month interval). Will not use [...] vaginal mass and no further disease. - Per previous note: Has now had additional CP episode and heart cath performed. No severe disease noted and cold roll catcher reports ok to continue Dana. However, also [...] continue Dana. Patient elected to stop Dana. Will continue oral Cytoxan with visits for toxicity and efficacy monitoring q 2 months. Will continue lab checks q month. -labs/UA checked today, CT from earlier today still pending. Will call with results. RTC [address] Hutchins. Problem 2: Vaginal bleeding Assessment and plan 2: - Denies bleeding today - Likely due to growing mass at cuff - May make protein in urine look higher than it is - Bleeding decreased since starting Dana/Cytoxan and now resolved - CT after 4 cycles shows resolution of vaginal mass, which was likely source of this symptom Problem 3: Cervical cancer Assessment and plan 3: - Distant history, custodial survivor. Problem 4: History of left breast cancer x 2 Assessment and plan 4: - s/p anastrazole. No current signs of disease. Follows up with breast clinic in November. Problem 5: Neuropathy Assessment and plan 5: - Treatment related. - Will not use Taxol again. - Gabapentin to 400 mg TID, this dose is helping. Problem 6: h/o syncope episodes and carotid stenosis, now with chest tightness over 2021, in July 2022, and last Monday (10/28/2022) Assessment and plan 6: - Has been followed in past with cards at - Seen by cardiology at [facility] and acute workup negative but diagnostic [...] plan 7: - Body mass index is 31.13 kg/m??. - Affects all aspects of care Problem 8: Bone health Assessment and plan 8: Will request outside records from [facility] for DEXA, then will discuss options for re-starting Prolia injection during clinic visits. Pt states shepreviously did not tolerate Ca supplements well. PCP (Dr. Flaquita Dorsey at [facility]) would like for her to get back on Prolia. Summary of time spent in team based care today includes the following activities performed by myself: review of prior documentation in preparation for visit, review of labs and any other test results, obtaining and reviewing medical history, discussion of plan of care, lab orders, phlebotomy, discussion of bone health/Prolia. NICKOLAS Huerta [facility] [address] [facility] [address] [facility] [address] Dept: [phone] Dept Loc: [phone] documented in this encounter Plan of Treatment Upcoming Encounters Date Type Department Care Team (Late st Contact Info) Description 08/05/2024 8:00 AM EST Office Visit [facility] [address] [facility] [address] [place] [address] Penny Carmona MD [address] [facility] [address] [facility] [address] [place] [address] 08/05/2024 9:30 AM EST Appointment [facility] [address] [place] [phone] 02/26/2025 9:30 AM EDT Appointment [facility] [address] [facility] [address] [place] [address] 02/26/2025 10:30 AM EDT Office Visit [facility] [address] [facility] [place] [address] Berenice Resendez, CEMENTER [address] [facility] [address] [facility] [address] [place] [phone] documented as of this encounter Procedures Procedure Name Priority Date/Time Associated Diagnosis Comments URINALYSIS WITH REFLEX MICROSCOPIC Routine 11/02/2022 11:52 AM EDT Encounter for antineoplastic chemotherapy CBC WITH AUTO DIFFERENTIAL Routine 11/02/2022 11:52 AM EDT Encounter for antineoplastic chemotherapy CA 125 Routine 11/02/2022 11:52 AM EDT Encounter for antineoplastic chemotherapy Malignant neoplasm of fallopian tube, unspecified laterality (CMS/HCC) COMPREHENSIVE METABOLIC PANEL, PLASMA Routine 11/02/2022 11:52 AM EDT Encounter for antineoplastic chemotherapy documented in this encounter Results * Urinalysis with reflex microscopic (11/02/2022 11:52 AM EDT) Color, Urine Yellow LAB URINALYSIS - AUTOMATED METHOD 11/02/2022 12:34 PM EDT [facility] Clarity, Urine Clear LAB URINALYSIS - AUTOMATED METHOD 11/02/2022 12:34 PM EDT [facility] Spec [place], Urine >=1.030 <=1.005 to >=1.030 LAB URINALYSIS - AUTOMATED METHOD 11/02/2022 12:34 PM EDT [facility] pH, Urine 6.0 4.5 to 8 LAB URINALYSIS - AUTOMATED METHOD 11/02/2022 12:34 PM EDT [facility] Protein, Urine Negative Negative mg/dL LAB URINALYSIS - AUTOMATED METHOD 11/02/2022 12:34 PM EDT [facility] Glucose, Urine Negative Negative mg/dL LAB URINALYSIS - AUTOMATED METHOD 11/02/2022 12:34 PM EDT [facility] Ketones, Urine Negative Negative mg/dL LAB URINALYSIS - AUTOMATED METHOD 11/02/2022 12:34 PM EDT [facility] Blood, Urine Negative Negative LAB URINALYSIS - AUTOMATED METHOD 11/02/2022 12:34 PM EDT [facility] Bilirubin, Urine Negative Negative LAB URINALYSIS - AUTOMATED METHOD 11/02/2022 12:34 PM EDT [facility] Urobilinogen, Urine 0.2 0.2 to 1.0 mg/dL LAB URINALYSIS - AUTOMATED METHOD 11/02/2022 12:34 PM EDT [facility] Leukocytes, Urine Negative Negative LAB URINALYSIS - AUTOMATED METHOD 11/02/2022 12:34 PM EDT [facility] Nitrite, Urine Negative Negative LAB URINALYSIS - AUTOMATED METHOD 11/02/2022 12:34 PM EDT [facility] Urine Urine specimen obtained by clean catch procedure / Unknown Non-blood Collection / Unknown 11/02/2022 11:52 AM EDT 11/02/2022 12:11 PM EDT us Ely Oseguera CEMENTER LAB URINE ORDERABLES Final R esult Performing Organization Address City/State/[facility] Co de Phone Number [facility] [address] [place] [address] * (ABNORMAL) CBC and Differential (11/02/2022 11:52 AM EDT) WBC Count 4.34 3.70 - 10.30 10*3/uL LAB HEMATOLOGY METHOD 11/02/2022 12:18 PM EDT [facility] RBC Count 3.66(L) 3.90 - 5.20 10*6/uL LAB HEMATOLOGY METHOD 11/02/2022 12:18 PM EDT [facility] HGB 12.6 11.2 - 15.7 g/dL LAB HEMATOLOGY METHOD 11/02/2022 12:18 PM EDT [facility] HCT 37.1 34.0 - 45.0 % LAB HEMATOLOGY METHOD 11/02/2022 12:18 PM EDT [facility] Platelet Count 214 155 - 369 10*3/uL LAB HEMATOLOGY METHOD 11/02/2022 12:18 PM EDT [facility] MCV 101(H) 79 - 98 fL LAB HEMATOLOGY METHOD 11/02/2022 12:18 PM EDT [facility] MCH 34.4(H) 26.0 - 32.0 pg LAB HEMATOLOGY METHOD 11/02/2022 12:18 PM EDT [facility] MCHC 34.0 30.7 - 35.5 g/dL LAB HEMATOLOGY METHOD 11/02/2022 12:18 PM EDT [facility] RDW 14.4 11.5 - 14.5 % LAB HEMATOLOGY METHOD 11/02/2022 12:18 PM EDT [facility] MPV 9.8 8.8 - 12.5 fL LAB HEMATOLOGY METHOD 11/02/2022 12:18 PM EDT [facility] nRBC 0.0 <=0.0 per 100 WBCs LAB HEMATOLOGY METHOD 11/02/2022 12:18 PM EDT [facility] Differential Type Automated LAB HEMATOLOGY METHOD 11/02/2022 12:18 PM EDT [facility] Neutrophils % 69.0 % LAB HEMATOLOGY METHOD 11/02/2022 12:18 PM EDT [facility] Lymphocytes % 18.0 % LAB HEMATOLOGY METHOD 11/02/2022 12:18 PM EDT [facility] Monocytes % 7.0 % LAB HEMATOLOGY METHOD 11/02/2022 12:18 PM EDT [facility] Eosinophils % 5.0 % LAB HEMATOLOGY METHOD 11/02/2022 12:18 PM EDT [facility] Basophils % 1.0 % LAB HEMATOLOGY METHOD 11/02/2022 12:18 PM EDT [facility] Immature Granulocytes % 0.0 % LAB HEMATOLOGY METHOD 11/02/2022 12:18 PM EDT [facility] Neutrophils Absolute 3.00 1.60 - 6.10 10*3/uL LAB HEMATOLOGY METHOD 11/02/2022 12:18 PM EDT [facility] Lymphocytes Absolute 0.79(L) 1.20 - 3.90 10*3/uL LAB HEMATOLOGY METHOD 11/02/2022 12:18 PM EDT [facility] Monocytes Absolute 0.29(L) 0.30 - 0.90 10*3/uL LAB HEMATOLOGY METHOD 11/02/2022 12:18 PM EDT [facility] Eosinophils Absolute 0.23 0.00 - 0.50 10*3/uL LAB HEMATOLOGY METHOD 11/02/2022 12:18 PM EDT [facility] Basophils Absolute 0.02 0.00 - 0.10 10*3/uL LAB HEMATOLOGY METHOD 11/02/2022 12:18 PM EDT [facility] Immature Granulocytes Absolute 0.01 0.00 - 0.06 10*3/uL LAB HEMATOLOGY METHOD 11/02/2022 12:18 PM EDT [facility] Blood Venous blood specimen / Unknown Venipuncture / Unknown 11/02/2022 11:52 AM EDT 11/02/2022 12:12 PM EDT Narrative [facility] - 11/02/2022 12:18 PM EDT Therapeutic decision making should be based on absolute values, rather than percentages. us Ely S [place] CEMENTER LAB BLOOD ORDERABLES Final R esult [facility] [address] [place] [address] * (ABNORMAL) Comprehensive metabolic panel (11/02/2022 11:52 AM EDT) Glucose, Plasma 118(H) 74 - 99 mg/dL 11/02/2022 12:50 PM EDT [facility] BUN, Plasma 21 8 - 23 mg/dL 11/02/2022 12:50 PM EDT [facility] Creatinine, Plasma 1.02 0.60 - 1.10 mg/dL 11/02/2022 12:50 PM EDT [facility] BUN/Creatinine Ratio 21 11/02/2022 12:50 PM EDT [facility] Sodium, Plasma 139 136 - 145 mmol/L 11/02/2022 12:50 PM EDT [facility] Potassium, Plasma 3.9 3.7 - 4.8 mmol/L 11/02/2022 12:50 PM EDT [facility] Chloride, Plasma 101 97 - 107 mmol/L 11/02/2022 12:50 PM EDT [facility] CO2, Plasma 27 22 - 29 mmol/L 11/02/2022 12:50 PM EDT [facility] Anion Gap 11 6 - 16 mmol/L 11/02/2022 12:50 PM EDT [facility] Total Calcium, Plasma 9.5 8.9 - 10.2 mg/dL 11/02/2022 12:50 PM EDT [facility] Total Protein 6.6 6.3 - 7.9 g/dL 11/02/2022 12:50 PM EDT [facility] Albumin, Plasma 4.1 3.5 - 5.2 g/dL 11/02/2022 12:50 PM EDT [facility] AST, Plasma 18 9 - 36 U/L 11/02/2022 12:50 PM EDT [facility] ALT, Plasma 16 8 - 33 U/L 11/02/2022 12:50 PM EDT [facility] Alkaline Phosphatase, Plasma 66 46 - 142 U/L 11/02/2022 12:50 PM EDT [facility] Total Bilirubin, Plasma 0.3 0.2 - 1.1 mg/dL 11/02/2022 12:50 PM EDT [facility] eGFRcr 56.8 mL/min/1.7 3m*2 11/02/2022 12:50 PM EDT [facility] Comment: Reported eGFRcr in mL/min/1.73m2 is based the CKD-EPI 2020 equation that does not use a race coefficient. Effective 02/23/22 our laboratory changed the eGFR calculation to the CKD-EPI 2020 equation from the previously reported eGFR, based on the MDRD equation. ??For comparisons between the two equations, please see laboratory website: ??[email or web address] Blood Venous blood specimen / Unknown Venipuncture / Unknown 11/02/2022 11:52 AM EDT 11/02/2022 12:12 PM EDT [facility] BLOOD ORDERABLES Final R Ampriusult Performing Organization Address City/[facility] Co de Phone Number [facility] [address] [place] [id number] * CA 125 (11/02/2022 11:52 AM EDT) CA 125 5.47 <=38.00 U/mL 11/02/2022 12:58 PM EDT [facility] Blood Venous blood specimen / Unknown Venipuncture / Unknown 11/02/2022 11:52 AM EDT 11/02/2022 12:12 PM EDT Narrative [facility] - 11/02/2022 12:58 PM EDT Performed by Ste[employer] electrochemiluminescent immunoassay. Results obtained with different test methods or kits cannot be used interchangeably. us [employer] LAB BLOOD ORDERABLES Final R esult [facility] [address] [place] [address] documented in this encounter Visit Diagnoses Diagnosis Encounter for antineoplastic chemotherapy- Primary Malignant neoplasm of fallopian tube, unspecified laterality (CMS/HCC) History of aromatase inhibitor therapy Malignant neoplasm of left breast in female, estrogen receptor positive, unspecified site of breast (CMS/HCC) documented in this encounter Additional Health Concerns Assessment Noted Time A fall risk assessment has been complete d for the patient 11/02/2022 10:35 AM EDT A Body Mass Index follow-up plan has been documented for the patient 08/19/2022 9:30 AM EST documented as of this encounter Care Teams Industrial Controls Technician Relationship Specialty Start Date End Date Flaquita Dorsey DO [address] [place], [place] [id number] PCP - General 12/14/21 Aliyah Valencia MD [address] [place] [address] Referring Physician 03/10/21 Conrado Iqbal MD [address] [place] [address] Service Attending Cardiology 08/19/22 documented as of this encounter
--- OUTSIDE RECORDS SUMMARY | 2024-07-10 11:58 | XMS_ITS | Encounter Summary ---
Author Organization Healthcare Address [facility] [place] [id number] Care Team Providers Care Pharmaceutical Operator Name Role Phone Aliyah Valencia MD Unavailable [phone] Flaquita Dorsey DO Primary Care Provider [phone]- [phone] Conrado Iqbal MD Unavailable Encounter Details Date Type Department Care Team (Late st Contact Info) Description 11/03/2022 Telephone [facility] [address] [place] [address] Ely Oseguera, MOTOR VEHICLE DISPATCHER [address] [facility] [address] [place] [address] Social History Tobacco Use Types [...] Miscellaneous Notes * Telephone Encounter - Ely Camilo APRN - 11/03/2022 9:37 AM EDT Spoke to patient about lab work, CT scan from yesterday as well as prolia injections at next visits. documented in this encounter Plan of Treatment Upcoming Encounters Date Type Department Care Team (Late st Contact Info) Description 08/05/2024 8:00 AM EST Office Visit [facility] Gynecology [address] [facility] [address] [place] [address] Penelope Carmona MD [address] [facility] [address] [facility] [address] [place] [address] 08/05/2024 9:30 AM EST Appointment [facility] [address] [place] [address] 02/26/2025 9:30 AM EDT Appointment [facility] [address] [facility] [address] [place] [address] 02/26/2025 10:30 AM EDT Office Visit [facility] Breast Care Center [address] [facility] [place] [address] Berenice Resendez APRN [address] [facility] [address] [facility] [address] [place] [address] documented as of this encounter Visit Diagnoses Not on filedocumented in this encounter Additional Health Concerns Assessment Noted Time A fall risk assessment has been complete d for the patient 11/02/2022 10:35 AM EDT A Body Mass Index follow-up plan has been documented for the patient 08/19/2022 9:30 AM EST documented as of this encounter Care Teams Pharmaceutical Operator Relationship Specialty Start Date End Date Flaquita Dorsey DO [address] [place], [place] [id number] PCP - General 12/14/21 Aliyah Valencia MD [address] [place] [address] Referring Physician 03/10/21 Conrado Iqbal MD [address] [place] [phone] Service Attending Cardiology 08/19/22 documented as of this encounter
--- OUTSIDE RECORDS SUMMARY | 2024-07-10 11:59 | XMS_ITS | Encounter Summary ---
Author Organization [facility] Address [address] [place], [place] [id number] Care Team Providers Care Tin Flopper Name Role Phone Aliyah Valencia MD Unavailable [phone] Flaquita Dorsey DO Primary Care Provider [phone] Reason for Visit * Episode Based Medications (Routine) - Closed Specialty Diagnoses / Procedures Referred By Contac t Referred To Contact Diagnoses Carcinoma of fallopian tube, unspecified laterality (CMS/HCC) Procedures Bevacizumab Every 21 Days Penelope Carmona MD [address] [place] [phone] Phone: tel: fax: [facility] Infusion Clinic [address] [place] [address] Phone: tel: Referral ID Status Reason Start Date Expiration Date Visits Re quested Visits Authorized [id number] Closed 04/11/2022 10/11/2023 1 14 Encounter Details Date Type Department Care Team (Latest Contact Info) Description 07/20/2022 1:30 PM EST - 07/20/2022 11:59 PM EST Hospital Encounter [facility] Infusion Clinic [address] [place] [address] Carcinoma of fallopian tube, unspecified laterality (CMS/HCC) (Primary Dx) Discharge Disposition: Home or Self Care Social History Tobacco Use Types Packs/Day Years Used Date Smoking Tobacco: Former Smokeless Tobacco: Former Alcohol Use Standard Drinks/Week Comments Not Currently 0 (1 standard drink = 0.6 oz pur e alcohol) PHQ-2 Answer Date Recorded Patient Health Questionnaire-2 Score 0 07/19/2022 Comments No Sex and Gender Information Value Date Recorded Sex Assigned at Not on file Legal Sex Female 8:51 PM EDT Gender Identity Not on file Sexual Orientation Not on file COVID-19 Exposure Response Date Recorded In the last 10 days, have yo u been in contact with someone who was confirmed or suspected to have Coronavirus/COVID-19? No / Unsure 07/19/2022 7:32 AM EST documented as of this encounter Last Filed Vital Signs Vital Sign Reading Time Taken Comments Blood Pressure 109/67 07/20/2022 1:31 PM EST Pulse 107 07/20/2022 1:31 PM EST Temperature 36.8 ??C (98.2 ??F) 07/20/2022 1:31 PM ES T Respiratory Rate 16 07/20/2022 1:31 PM EST Oxygen Saturation 97% 07/20/2022 1:31 PM EST Inhaled Oxygen Concentration - - Weight 80.2 kg (176 lb 12.9 oz) 07/20/2022 1:31 PM EST Height 160 cm (5' 3 ) 07/20/2022 1:31 PM EST Body Mass Index 31.32 07/20/2022 1:31 PM EST documented in this encounter Medications at Time of Discharge aspirin 81 MG chewable tablet Chew 1 tablet (81 mg) 1 (one) time each day. ergocalciferol (Vitamin D-2) 1.25 MG (06998 UT) capsule Take 1 capsule (50,000 Units) [...] by mouth 1 (one) time each day. cyclophosphamide (Cytoxan) 50 MG capsule capsule Take 1 capsule (50 mg total) by mouth 1 (one) time each day. 30 capsule 2 07/08/2022 3 denosumab (Prolia) 60 MG/ML injection 3 famciclovir (Famvir) 125 MG tablet Take 125 mg by mouth 1 (one) time each day. 3 fexofenadine (Mehreen) 180 MG tablet Take 180 mg by mouth 1 (one) time each day. 3 Flaxseed, Linseed, (Flaxseed Oil) 1000 MG capsule Take 1 tablet by mouth 1 (one) time each day. 4 fluocinolone (Synalar) 0.01 % external solution fluocinolone 0.01 % topical solution APPLY TO THE AFFECTED AREA(S) ON SCALP BY TOPICAL ROUTE 2 TIMES PER DAY X 2 WEEKS PRN FLARES 3 gabapentin (Neurontin) 300 MG capsule Take 1 capsule (300 mg total) by mouth every night. 30 capsule 5 06/28/2022 3 hydrOXYzine HCl (Atarax) 25 MG tablet 12/13/2021 3 ketoconazole (NIZOral) 2 % shampoo 08/12/2021 3 ketoconazole (NIZOral) 2 % shampoo ketoconazole 2 % shampoo APPLY TO THE AFFECTED AREA(S), LATHER, LEAVE IN PLACE FOR 5 MINUTES, AND THEN RINSE OFF WITH WATER BY TOPICAL ROUTE QOD 3 levothyroxine (Synthroid, Levoxyl) 75 MCG tablet Take 80 mcg by mouth 1 (one) time each day before breakfast. 3 metoprolol tartrate (Lopressor) 50 MG tablet Take 1 tablet (50 mg total) by mouth 2 (two) times a day. Take the night before CT, and morning of CT 2 tablet 07/19/2022 3 nitroglycerin (Nitrostat) 0.4 MG SL tablet every 5 (five) minutes if needed. 06/24/2022 4 prochlorperazine (Compazine) 10 MG tabletIndications :Carcinoma of fallopian tube, unspecified laterality (CMS/HCC) Take 1 tablet (10 mg total) by mouth every 6 (six) hours if needed for nausea or vomiting. 30 tablet 5 04/11/2022 4 senna-docusate sodium (Senokot-S) 8.6-50 MG tablet 09/28/2019 08/19/19 2 3 simvastatin (Zocor) 40 MG tablet Take 1 tablet (40 mg) by mouth every night. 4 triamcinolone (Kenalog) 0.025 % cream Apply 1 application topically 2 (two) times a day. 3 documented as of this encounter Plan of Treatment Upcoming Encounters Date Type Department Care Team (Late st Contact Info) Description 08/05/2024 8:00 AM EST Office Visit [facility] Gynecology [address] [facility] [address] [place] [address] Penelope Carmona MD [address] [facility] [address] [facility] [address] [place] [phone] 08/05/2024 9:30 AM EST Appointment [facility] Infusion Clinic [address] [place] [phone] 02/26/2025 9:30 AM EDT Appointment [facility] Breast Care Center [facility] [address] [facility] [address] [place] [address] 02/26/2025 10:30 AM EDT Office Visit [facility] Breast Care Center [address] [facility] [place] [phone] Berenice Resendez, GAME DES[employer]STRUCTOR [address] [facility] [address] [place] [phone] documented as of this encounter Visit Diagnoses Diagnosis Carcinoma of fallopian tube, unspecified laterality (CMS/HCC)- Primary documented in this encounter Administered Medications Inactive Administered Medications - up to 3 most recent administrations Medication Order MAR Action Action Date Dose Rate Site bevacizumab-bvzr (Zirabev) 1,300 mg in sodium chloride 0.9% 100 mL chemo IVPB 1,300 mg (rounded from 1,260 mg = 15 mg/kg ? 84 kg Treatment plan Recorded weight), Intravenous, at 364 mL/hr, Administer over 30 Minutes, Once, Bevacizumab should not be administered within 28 days of surgery. Not compatible with Dextrose. Hold for at least 28 days after surgery. Monitor BP prior to and upon completion of infusion. Specific administration requirements refer to [id number]., On Mon07/20/22 at 1530, For 1 dose, NS 100 mLIndications:Carcinoma of fallopian tube, unspecified laterality (CMS/HCC) New Bag 07/20/2022 3:43 PM EST 1,300 mg 364 mL/hr documented in this encounter Additional Health Concerns Assessment Noted Time A fall risk assessment has been complete d for the patient 07/20/2022 1:31 PM EST documented as of this encounter Care Teams Tin Flopper Relationship Specialty Start Date End Date Flaquita Dorsey DO [address] [place] [address] PCP - General 12/14/21 Aliyah Valencia MD [address] [place] [address] Referring Physician 03/10/21 documented as of this encounter
--- OUTSIDE RECORDS SUMMARY | 2024-07-10 11:59 | XMS_ITS | Encounter Summary ---
Author Organization [facility] Address [address] [place] [address] Care Team Providers Care Bridal Stylist Sales Consultant Name Role Phone Aliyah Valencia MD Unavailable [phone] Flaquita Dorsey DO Primary Care Provider [phone] Reason for Visit * Reason Comments Chemotherapy Encounter Details Date Type Department Care Team ([facility] st Contact Info) Description 08/10/2022 1:45 PM EST Office Visit [facility] [address] [place] [address] Penny Carmona MD [address] [facility] [address] [place] [address] Carcinoma of fallopian tube, unspecified laterality (CMS/HCC) (Primary Dx); Encounter for antineoplastic chemotherapy; Obesity (BMI 30-39.9); Neuropathy Social History Tobacco [...] suspected to have Coronavirus/COVID-19? No / Unsure 08/10/2022 9:35 AM EST documented as of this encounter Last Filed Vital Signs Vital Sign Reading Time Taken Comments Blood Pressure 116/77 08/10/2022 1:46 PM EST Pulse 116 08/10/2022 1:46 PM EST Temperature - - Respiratory Rate - - Oxygen Saturation - - Inhaled Oxygen Concentration - - Weight 80.4 kg (177 lb 3.2 oz) 08/10/2022 1:46 P M EST Height 160 cm (5' 3 ) 08/10/2022 1:46 PM EST Body Mass Index 31.39 08/10/2022 1:46 PM EST documented in this encounter Miscellaneous Notes * Progress Notes - Vannesa Leonard MD - 08/10/2022 1:45 PM EST Primary Care Provider: Flaquita Dorsey DO History of Present Illness: Chief complaint: 76 yo female here for cycle 4 Dana/oral cytoxan. Oncologic history is as follows: Oncology History [...] were negative for metastatic disease. ER and WV were strongly positive and HER-2 was negative. [...] ER positive in 90% of the cells, WV positive in 95% of cells andHER-2 negative by IHC at 0. On 10/04/2016 she underwent a left needle localized lumpectomy. Upson lymph node biopsy was not performed as [...] vagina). Initiated neoadjuvant chemo with carbo/Taxol per JAVA SWING DEVELOPER followed by BSO/Omentectomy and adjuvant Carbotaxol. Recurrence in March 2019. Treated with carbo initially followed by Olaparib. 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 She is currently off of therapy. She follows with Dr. Hutchins in Manufacturing Plant Manager/Onc. 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 Recurrence - First recurrence, lumbee sensitive - CT 04/10/19 with 3 cmlesion at cuff - Ca125 12 (from 8) - MTB discussion: recommend trial if progression on lumbee regimen or consider Parp for RAD 51 [...] ccy for choledocolithiasis 2019 (SGB) - Ca125: 75-6-1-7-7-9-8 - Started Parp inhibitor 09/2019 - Dose [...] 7.49 (21) 06/30/2021 Recurrence - Third recurrence, lumbee sensitive - CT 06/30/2021 shows vaginal cuff [...] disease seen 04/11/2022 Recurrence - Fourth recurrence, lumbee resistant - CT 04/11/2022 with increase in size of mass at apex of vagina to 5 cm from 3.6 cm 04/18/2022 - Chemotherapy - Dana, oral Cytoxan started 04/25/2022 (held 04/18 for 24 hr urine) - Ca125 12.2-6.21-6.37-5.99-6.23 - Cycle 4 Dana held for chest pain workup 05/16/2022 Genetic Testing Caris Actionable mutations: ER (Hormone therapy), ALEKSEY High (Parp), PDL1 (Pembro) Other findings: Rad51D, TP53, MMR proficient, MSI stable, TMB low Interval updates to history: Oncologic treatment history as described above reviewed today as well as PMH/PSH/Meds/All/SH/FH, with updates made as appropriate. Patient is here today for cycle 5 of Dana and to monitor toxicity of oral Cytoxan. Had CT today that showed resolution of vaginal mass. No new disease. Patient feeling well overall with minimal toxicity on this regimen. Desires to go up on Gabapentin due to ongoing neuropathy pain that is not fully controlled on current dosing. Notes thatclarisa had an echo on Monday and is scheduled for a heart cath next week. PMH: h/o breast cancer x2, ?cervical cancer, [...] years ago, no drugs, retired, lives in [place]. FamHx: Father-prostate, MGma-colon. ROS: 14 pt ROS performed with pertinent positives and negatives as noted in HPI. ROS otherwise negative Objective Physical Exam: Vital Signs for this encounter: BSA: 1.89 meters squared Visit Vitals BP 116/77 Pulse (!) 116 Ht 1.6 m (5' 3 ) Wt 80.4 kg (177 lb 3.2 oz) LMP 11/17/1981 (Approximate) BMI 31.39 kg/m?? OB Status Hysterectomy Smoking Status Former BSA 1.89 m?? Physical Exam Vitals and nursing note [...] Status: Asymptomatic PS= 0 Results: CBC WBC 4.60 Hgb 13.5 PLT 227 HCT 42.0 Lab Results Component Value Date NEUTROABS 2.91 07/20/2022 BASIC METABOLIC PANEL Na 139 Cl 101 BUN 24 Gluc 83 K 4.1 Co2 25 Creat 0.87 LIVER FUNCTION TESTING Tot Prot 7.1 AST 20 Tot bili 0.4 ALT 14 Alkphos 79 Ca 10.0 Mg 1.3 Phos No results found for requested labs within last 8760 hours. === 08/10/22 === CT ABDOMEN PELVIS W IV CONTRAST - Narrative - Exam/Procedure: CT CHEST W IV CONTRAST ordered by PENNY DODSON, [id number] CLINICAL INDICATION: Ovarian cancer, assess treatment response [...] followed by radiation for additional recurrence - [place] sensitive recurrence diagnosed 06/2021. - Completed 6 cycles of single agent Carbo 10/2021. Recovering well with no concerning residual toxicity. - CT OSH 12/2021 JARED. Given was done at different facility without ability to directly compare, willplan to recheck sooner than usual at [facility] - check again at 3 months from last (early March). - CT 04/11/2022 shows progression at cuff with no other disease - Caris testing requested - [place] resistant (5 month interval). Will not use Carbo again. Offered traditional chemo (Gemzar, DD Taxol, Doxil) vs Dana/oral Cytoxan. Elects for Dana/oral cytoxan - Held fourth cycle of Dana due to incomplete chest pain workup. Continued oral cytoxan. - Referred to cardio-oncology for second opinion on need for heart cath to safely continue Dana. Misty 06/27/2022 and CCTA recommended but ok to continue Dana. Has now had echo and heart cath plannedfor next week. Advised her to proceed. - CT today shows interval resolution of vaginal mass and no further disease. - Proceed with cycle 5 of Dana today. Plan q 21 cycles until progression/intolerance. No dose limiting toxicities identified. Pre chemo labs reviewed. Continue intensive weekly hematologic monitoring (CBC with diff, CMP). Also continue cyclic Ca125 tumor marker monitoring. Reviewed side effects to larisa richardson. Consider imaging q 3-4 cycles. 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 Problem 4: History of left breast cancer x 2 Assessment and plan 4: - s/p anastrazole. No current signs of disease Problem 5: Neuropathy Assessment and plan 5: - Treatment related. Worst at night. - Will not use Taxol again. - Increased Gabapentin to 400 mg TID today. Nghia reviewed Problem 6: h/o syncope episodes and carotid stenosis, now with chest tightness over 2021 Assessment and plan 6: - Has been followed in past with cards at - Seen by cardiology at [facility] and acute workup negative but diagnostic cath recommended. Patient declined and uncertain about necessity of this - Held Dana while assessing her cardiac risk - Second opinion with oncocardiology 06/27/2022 - pain likely related to CAD. - Now s/p echo and heart cath planned next week per patient. Advised her to follow through with recs to assess for optimization of her cardiac disease - especially given that she is currently JARED from cancer and could have disease control for quite some time going forward. Problem 7: Obesity Assessment and plan 7: - Body mass index is 31.39 kg/m??. - Affects all aspects of care Problem 8: Proteinuria Assessment and plan 8: - Noted on screen when trying to start Dana 04/18 - 24 hr urine ok for treatment - Blood in urine may affect result. Consider cath specimen in future if needed - No protein noted today. Summary of time spent in team based care today includes the following activities performed by myself: review of prior documentation in preparation for visit, review of images and imaging report, review of labs and any other test results, obtaining and reviewing medical history, appropriate focused physical exam, discussion of exam and/or test results, discussion of plan of care, lab orders, phlebotomy, prescription submission and Nghia review, chemo order management. Total time 40 min Penny Dodson MD [facility] [address] [facility] [address] [facility] [address] Dept: [phone] Dept Loc: [phone] Cosigned by Penny Carmona MD at 08/11/2022 3:45 PM EST Associated attestation - Penny Carmona MD - 08/11/2022 3:45 PM EST I saw and evaluated the patient with the resident/fellow. I discussed the case with the resident/fellow and agree with the findings and plan as documented. * Progress Notes - Serena Xiong, PharmD - 08/10/2022 1:45 PM EST Pharmacy Hematology/Oncology Treatment Plan [...] from 05/28/2001: pT1c, pN0, cM0, G2, ER+, WV+, HER2: Unknown - Signed by Cara Greene MD on 06/19/2021 - Pathologic stage from 10/05/2016: Stage Unknown (rpT1c, pNX, cM0, G2, ER+, WV+, HER2-) - Signed by Cara Greene MD on 06/19/2021 Study Patient: No Treatment Protocol: Bevacizumab/Cyclophosphamide Every 21 Days Treatment Plan reviewed for: [x] Follow-Up Clinical Review for Cycle 5 [x] Follow-Up Clinical Review for Continuous Oral [...] treatment. Will proceed with Cycle 4 today. Dosing Wt: 84 kg Today's Wt: Wt Readings from Last 1 Encounters: 08/10/22 80.1 kg (176 lb 9.4 oz) Dosing Ht: 160 cm DosingBSA: 1.88 m2 Recent Labs: Lab Results Component Value Date WBC 4.60 07/20/2022 HGB 13.5 07/20/2022 HCT 42.0 07/20/2022 MCV 100 (H) 07/20/2022 PLT 227 07/20/2022 Lab Results Component Value Date GLUCOSE 83 07/20/2022 CALCIUM 10.0 07/20/2022 NA 139 07/20/2022 K 4.1 07/20/2022 CO2 25 07/20/2022 CL 101 07/20/2022 BUN 24 (H) 07/20/2022 CREATININE 0.87 07/20/2022 Lab Results Component Value Date ALT 14 07/20/2022 AST 20 07/20/2022 ALKPHOS 79 07/20/2022 BILITOT 0.4 07/20/2022 Lab Results Component Value Date NEUTROABS 2.91 07/20/2022 Lab Results Component Value Date MG 1.3 (L) 11/17/2021 No results found for: TSH Lab Results Component Value Date URINEPRO Negative 07/20/2022 Vitals: Vitals: 08/10/22 1346 BP: 116/77 Pulse: (!) 116 Other Relevant Monitoring: None Treatment Plan: Bevacizumab 15 mg/kg (1,300 mg) IV D1 Cyclophosphamide 50 mg PO daily Every 21 days [x] No dose adjustments made Current Treatment Plan History: Bevacizumab/oral Cyclophosphamide #1: 04/25/22 #2: 05/16/22 #3: 06/06/22 #4: 07/20/22 #5: 08/10/22 Prior Chemotherapy History: hormone therapy for prior [...] - 17th lifetime dose carboplatin #6: 11/17/21 Assessment/Plan: Rx Sent to: [facility] Refills due: August 2022 I reviewed the patient's chart and chemotherapy orders were approved. Patient will return to clinic in [address] Hutchins. Will follow-up at that time. Pharmacist Attestation: Serena Xiong, WarrenD, OP Hematology/Oncology Clinical Pharmacist documented in this encounter Plan of Treatment Upcoming Encounters Date Type Department Care Team (Late st Contact Info) Description 08/05/2024 8:00 AM EST Office Visit [facility] [address] [place] [address] Penny Carmona MD [address] [place] [address] 08/05/2024 9:30 AM EST Appointment [facility] [address] [place] [address] 02/26/2025 9:30 AM EDT Appointment [facility] [address] [place] [address] 02/26/2025 10:30 AM EDT Office Visit [facility] [address] [facility] [place] [address] Berenice Resendez, YARN REWINDER [address] [facility] [address] [place] [address] documented as of this encounter Procedures Procedure Name Priority Date/Time Associated Diagnosis Comments URINALYSIS, DIPSTICK Routine 08/10/2022 2:54 PM EST Carcinoma of fallopian tube, unspecified laterality (CMS/HCC) CBC WITH AUTO DIFFERENTIAL Routine 08/10/2022 2:08 PM EST Carcinoma of fallopian tube, unspecified laterality (CMS/HCC) CA 125 Routine 08/10/2022 2:08 PM EST Carcinoma of fallopian tube, unspecified laterality (CMS/HCC) COMPREHENSIVE METABOLIC PANEL, PLASMA Routine 08/10/2022 2:08 PM EST Carcinoma of fallopian tube, unspecified laterality (CMS/HCC) documented in this encounter Results * CA 125 (08/31/2022 2:26 PM EST) CA 125 5.27 <=38.00 U/mL 08/31/2022 4:45 PM EST [facility] Blood Blood sample taken from central line / Unknown (Port) Long-term Catheter / Unknown 08/31/2022 2:26 PM EST 08/31/2022 2:49 PM EST [facility] - 08/31/2022 4:45 PM EST Performed by Stephie electrochemiluminescent immunoassay. Results obtained with different test methods or kits cannot be used interchangeably. us Penny Dodson MD LAB BLOOD ORDERABLES Final Result [facility] [address] [place] [address] * (ABNORMAL) Comprehensive metabolic panel (08/31/2022 2:26 PM EST) Pathologist [facility] Glucose, Plasma 122(H) 74 - 99 mg/dL 08/31/2022 3:21 PM EST [facility] BUN, Plasma 26(H) 8 - 23 mg/dL 08/31/2022 3:21 PM EST [facility] Creatinine, Plasma 0.88 0.60 - 1.10 mg/dL 08/31/2022 3:21 PM EST [facility] BUN/Creatinine Ratio 30 08/31/2022 3:21 PM EST [facility] Sodium, Plasma 137 136 - 145 mmol/L 08/31/2022 3:21 PM EST [facility] Potassium, Plasma 3.8 3.7 - 4.8 mmol/L 08/31/2022 3:21 PM EST [facility] Comment:Reference range for Serum potassium is 0.2 to 0.5 mmol/L higher than Plasma range. Chloride, Plasma 102 97 - 107 mmol/L 08/31/2022 3:21 PM EST [facility] CO2, Plasma 23 22 - 29 mmol/L 08/31/2022 3:21 PM EST [facility] Anion Gap 12 6 - 16 mmol/L 08/31/2022 3:21 PM EST [facility] Total Calcium, Plasma 9.5 8.9 - 10.2 mg/dL 08/31/2022 3:21 PM EST [facility] Total Protein 6.7 6.3 - 7.9 g/dL 08/31/2022 3:21 PM EST [facility] Albumin, Plasma 4.0 3.5 - 5.2 g/dL 08/31/2022 3:21 PM EST [facility] AST, Plasma 18 9 - 36 U/L 08/31/2022 3:21 PM EST [facility] ALT, Plasma 12 8 - 33 U/L 08/31/2022 3:21 PM EST [facility] Alkaline Phosphatase, Plasma 64 46 - 142 U/L 08/31/2022 3:21 PM EST [facility] Total Bilirubin, Plasma 0.4 0.2 - 1.1 mg/dL 08/31/2022 3:21 PM EST [facility] eGFRcr 68.2 mL/min/1.7 3m*2 08/31/2022 3:21 PM EST [facility] Comment: Reported eGFRcr in mL/min/1.73m2 is based the CKD-EPI 2021 equation that does not use a race coefficient. Effective 02/23/22 our laboratory changed the eGFR calculation to the CKD-EPI 2021 equation from the previously reported eGFR, based on the MDRD equation. ??For comparisons between the two equations, please see laboratory website: ??[email or web address]/[email or web address] Blood Blood sample taken from central line / Unknown (Port) Long-term Catheter / Unknown 08/31/2022 2:26 PM EST 08/31/2022 2:49 PM EST us Penny Dodson MD LAB BLOOD ORDERABLES Final Result Performing Organization Address City/State/[facility] Co de Phone Number [facility] [address] [place] [phone] * (ABNORMAL) CBC and differential (08/31/2022 2:26 PM EST) WBC Count 4.55 3.70 - 10.30 10*3/uL LAB HEMATOLOGY METHOD 08/31/2022 2:53 PM EST [facility] RBC Count 3.99 3.90 - 5.20 10*6/uL LAB HEMATOLOGY METHOD 08/31/2022 2:53 PM EST [facility] HGB 13.3 11.2 - 15.7 g/dL LAB HEMATOLOGY METHOD 08/31/2022 2:53 PM EST [facility] HCT 39.4 34.0 - 45.0 % LAB HEMATOLOGY METHOD 08/31/2022 2:53 PM EST [facility] Platelet Count 197 155 - 369 10*3/uL LAB HEMATOLOGY METHOD 08/31/2022 2:53 PM EST [facility] MCV 99(H) 79 - 98 fL LAB HEMATOLOGY METHOD 08/31/2022 2:53 PM EST [facility] MCH 33.3(H) 26.0 - 32.0 pg LAB HEMATOLOGY METHOD 08/31/2022 2:53 PM EST [facility] MCHC 33.8 30.7 - 35.5 g/dL LAB HEMATOLOGY METHOD 08/31/2022 2:53 PM EST [facility] RDW 14.6(H) 11.5 - 14.5 % LAB HEMATOLOGY METHOD 08/31/2022 2:53 PM EST [facility] MPV 9.7 8.8 - 12.5 fL LAB HEMATOLOGY METHOD 08/31/2022 2:53 PM EST [facility] nRBC 0.0 <=0.0 per 100 WBCs LAB HEMATOLOGY METHOD 08/31/2022 2:53 PM EST [facility] Differential Type Automated LAB HEMATOLOGY METHOD 08/31/2022 2:53 PM EST [facility] Neutrophils % 64.0 % LAB HEMATOLOGY METHOD 08/31/2022 2:53 PM EST [facility] Lymphocytes % 20.0 % LAB HEMATOLOGY METHOD 08/31/2022 2:53 PM EST [facility] Monocytes % 7.0 % LAB HEMATOLOGY METHOD 08/31/2022 2:53 PM EST [facility] Eosinophils % 8.0 % LAB HEMATOLOGY METHOD 08/31/2022 2:53 PM EST [facility] Basophils % 1.0 % LAB HEMATOLOGY METHOD 08/31/2022 2:53 PM [facility] Immature Granulocytes % 0.0 % LAB HEMATOLOGY METHOD 08/31/2022 2:53 PM EST [facility] Neutrophils Absolute 2.92 1.60 - 6.10 10*3/uL LAB HEMATOLOGY METHOD 08/31/2022 2:53 PM EST [facility] Lymphocytes Absolute 0.92(L) 1.20 - 3.90 10*3/uL LAB HEMATOLOGY METHOD 08/31/2022 2:53 PM EST [facility] Monocytes Absolute 0.32 0.30 - 0.90 10*3/uL LAB HEMATOLOGY METHOD 08/31/2022 2:53 PM EST [facility] Eosinophils Absolute 0.35 0.00 - 0.50 10*3/uL LAB HEMATOLOGY METHOD 08/31/2022 2:53 PM EST [facility] Basophils Absolute 0.03 0.00 - 0.10 10*3/uL LAB HEMATOLOGY METHOD 08/31/2022 2:53 PM EST [facility] Immature Granulocytes Absolute 0.01 0.00 - 0.06 10*3/uL LAB HEMATOLOGY METHOD 08/31/2022 2:53 PM EST [facility] Blood Blood sample taken from central line / Unknown (Port) Long-term Catheter / Unknown 08/31/2022 2:26 PM EST 08/31/2022 2:50 PM EST Narrative [facility] - 08/31/2022 2:53 PM EST Therapeutic decision making should be based on absolute values, rather than percentages. us Penny Dodson MD LAB BLOOD ORDERABLES Final Result [facility] [address] [place] [address] * (ABNORMAL) Urinalysis, manual only (08/10/2022 2:54 PM EST) Color, Urine Yellow LAB URINALYSIS - AUTOMATED METHOD 08/10/2022 3:52 PM EST [facility] Clarity, Urine Clear LAB URINALYSIS - AUTOMATED METHOD 08/10/2022 3:52 PM EST [facility] Spec [place], Urine >=1.030 <=1.005 to >=1.030 LAB URINALYSIS - AUTOMATED METHOD 08/10/2022 3:52 PM EST [facility] pH, Urine 6.0 4.5 to 8 LAB URINALYSIS - AUTOMATED METHOD 08/10/2022 3:52 PM EST [facility] Protein, Urine Negative Negative mg/dL LAB URINALYSIS - AUTOMATED METHOD 08/10/2022 3:52 PM EST [facility] Glucose, Urine Negative Negative mg/dL LAB URINALYSIS - AUTOMATED METHOD 08/10/2022 3:52 PM EST [facility] Ketones, Urine Negative Negative mg/dL LAB URINALYSIS - AUTOMATED METHOD 08/10/2022 3:52 PM EST [facility] Blood, Urine Negative Negative LAB URINALYSIS - AUTOMATED METHOD 08/10/2022 3:52 PM EST [facility] Bilirubin, Urine Negative Negative LAB URINALYSIS - AUTOMATED METHOD 08/10/2022 3:52 PM EST [facility] Urobilinogen, Urine 1.0 0.2 to 1.0 mg/dL LAB URINALYSIS - AUTOMATED METHOD 08/10/2022 3:52 PM EST [facility] Leukocytes, Urine Trace(A) Negative LAB URINALYSIS - AUTOMATED METHOD 08/10/2022 3:52 PM EST [facility] Nitrite, Urine Negative Negative LAB URINALYSIS - AUTOMATED METHOD 08/10/2022 3:52 PM EST [facility] Urine Urine specimen obtained by clean catch procedure / Unknown Non-blood Collection / Unknown 08/10/2022 2:54 PM EST 08/10/2022 3:52 PM EST Penny Dodson MD LAB URINE ORDERABLES Final Result [facility] [address] [place] [id number] * (ABNORMAL) CBC and differential (08/10/2022 2:08 PM EST) WBC Count 4.56 3.70 - 10.30 10*3/uL LAB HEMATOLOGY METHOD 08/10/2022 3:06 PM EST [facility] RBC Count 4.02 3.90 - 5.20 10*6/uL LAB HEMATOLOGY METHOD 08/10/2022 3:06 PM EST [facility] HGB 13.0 11.2 - 15.7 g/dL LAB HEMATOLOGY METHOD 08/10/2022 3:06 PM EST [facility] HCT 39.9 34.0 - 45.0 % LAB HEMATOLOGY METHOD 08/10/2022 3:06 PM EST [facility] Platelet Count 216 155 - 369 10*3/uL LAB HEMATOLOGY METHOD 08/10/2022 3:06 PM EST [facility] MCV 99(H) 79 - 98 fL LAB HEMATOLOGY METHOD 08/10/2022 3:06 PM EST [facility] MCH 32.3(H) 26.0 - 32.0 pg LAB HEMATOLOGY METHOD 08/10/2022 3:06 PM EST [facility] MCHC 32.6 30.7 - 35.5 g/dL LAB HEMATOLOGY METHOD 08/10/2022 3:06 PM EST [facility] RDW 14.6(H) 11.5 - 14.5 % LAB HEMATOLOGY METHOD 08/10/2022 3:06 PM EST [facility] MPV 9.9 8.8 - 12.5 fL LAB HEMATOLOGY METHOD 08/10/2022 3:06 PM EST [facility] nRBC 0.0 <=0.0 per 100 WBCs LAB HEMATOLOGY METHOD 08/10/2022 3:06 PM EST [facility] Differential Type Automated LAB HEMATOLOGY METHOD 08/10/2022 3:06 PM EST [facility] Neutrophils % 65.0 % LAB HEMATOLOGY METHOD 08/10/2022 3:06 PM EST [facility] Lymphocytes % 22.0 % LAB HEMATOLOGY METHOD 08/10/2022 3:06 PM EST [facility] Monocytes % 5.0 % LAB HEMATOLOGY METHOD 08/10/2022 3:06 PM EST [facility] Eosinophils % 6.0 % LAB HEMATOLOGY METHOD 08/10/2022 3:06 PM EST [facility] Basophils % 1.0 % LAB HEMATOLOGY METHOD 08/10/2022 3:06 PM EST [facility] Immature Granulocytes % 1.0 % LAB HEMATOLOGY METHOD 08/10/2022 3:06 PM EST [facility] Neutrophils Absolute 2.97 1.60 - 6.10 10*3/uL LAB HEMATOLOGY METHOD 08/10/2022 3:06 PM EST [facility] Lymphocytes Absolute 1.02(L) 1.20 - 3.90 10*3/uL LAB HEMATOLOGY METHOD 08/10/2022 3:06 PM EST [facility] Monocytes Absolute 0.23(L) 0.30 - 0.90 10*3/uL LAB HEMATOLOGY METHOD 08/10/2022 3:06 PM [facility] Eosinophils Absolute 0.27 0.00 - 0.50 10*3/uL LAB HEMATOLOGY METHOD 08/10/2022 3:06 PM EST [facility] Basophils Absolute 0.04 0.00 - 0.10 10*3/uL LAB HEMATOLOGY METHOD 08/10/2022 3:06 PM [facility] Immature Granulocytes Absolute 0.03 0.00 - 0.06 10*3/uL LAB HEMATOLOGY METHOD 08/10/2022 3:06 PM [facility] Blood Blood sample taken from central line / Unknown (Port) Long-term Catheter / Unknown 08/10/2022 2:08 PM EST 08/10/2022 2:56 PM EST [facility] - 08/10/2022 3:06 PM EST Therapeutic decision making should be based on absolute values, rather than percentages. us Penny Dodson MD LAB BLOOD ORDERABLES Final Result [facility] [address] [place] [address] * (ABNORMAL) Comprehensive metabolic panel (08/10/2022 2:08 PM EST) Glucose, Plasma 118(H) 74 - 99 mg/dL 08/10/2022 3:27 PM EST [facility] BUN, Plasma 19 8 - 23 mg/dL 08/10/2022 3:27 PM EST [facility] Creatinine, Plasma 0.96 0.60 - 1.10 mg/dL 08/10/2022 3:27 PM EST [facility] BUN/Creatinine Ratio 20 08/10/2022 3:27 PM EST [facility] Sodium, Plasma 139 136 - 145 mmol/L 08/10/2022 3:27 PM EST [facility] Potassium, Plasma 3.9 3.7 - 4.8 mmol/L 08/10/2022 3:27 PM EST [facility] Comment:Reference range for Serum potassium is 0.2 to 0.5 mmol/L higher than Plasma range. Chloride, Plasma 101 97 - 107 mmol/L 08/10/2022 3:27 PM EST [facility] CO2, Plasma 27 22 - 29 mmol/L 08/10/2022 3:27 PM EST [facility] Anion Gap 11 6 - 16 mmol/L 08/10/2022 3:27 PM EST [facility] Total Calcium, Plasma 9.7 8.9 - 10.2 mg/dL 08/10/2022 3:27 PM EST [facility] Total Protein 6.7 6.3 - 7.9 g/dL 08/10/2022 3:27 PM EST [facility] Albumin, Plasma 4.0 3.5 - 5.2 g/dL 08/10/2022 3:27 PM [facility] AST, Plasma 15 9 - 36 U/L 08/10/2022 3:27 PM EST [facility] ALT, Plasma 10 8 - 33 U/L 08/10/2022 3:27 PM [facility] Alkaline Phosphatase, Plasma 67 46 - 142 U/L 08/10/2022 3:27 PM [facility] Total Bilirubin, Plasma 0.3 0.2 - 1.1 mg/dL 08/10/2022 3:27 PM EST [facility] eGFRcr 61.4 mL/min/1.7 3m*2 08/10/2022 3:27 PM EST HEALTHCARE LAB Comment: Reported eGFRcr in mL/min/1.73m2 is based the CKD-EPI 2020 equation that does not use a race coefficient. Effective 02/23/22 our laboratory changed the eGFR calculation to the CKD-EPI 2021 equation from the previously reported eGFR, based on the MDRD equation. ??For comparisons between the two equations, please see laboratory website: ??[email or web address] Blood Blood sample taken from central line / Unknown (Port) Long-term Catheter / Unknown 08/10/2022 2:08 PM EST 08/10/2022 2:56 PM EST Penny Dodson MD LAB BLOOD ORDERABLES Final Result Performing Organization Address City/[facility] Co de Phone Number [facility] [address] [place] [address] * CA 125 (08/10/2022 2:08 PM EST) CA 125 5.61 <=38.00 U/mL 08/10/2022 3:37 PM EST [facility] Blood Blood sample taken from central line / Unknown (Port) Long-term Catheter / Unknown 08/10/2022 2:08 PM EST 08/10/2022 2:56 PM EST Narrative [facility] - 08/10/2022 3:37 PM EST Performed by [employer] electrochemiluminescent immunoassay. Results obtained with different test methods or kits cannot be used interchangeably. Penny Dodson MD LAB BLOOD ORDERABLES Final Result [facility] [address] [place] [address] documented in this encounter Visit Diagnoses Diagnosis Carcinoma of fallopian tube, unspecified laterality (CMS/HCC)- Primary Encounter for antineoplastic chemotherapy Obesity (BMI 30-39.9) Neuropathy Mononeuritis of unspecified site documented in this encounter Additional Health Concerns Assessment Noted Time A fall risk assessment has been complete d for the patient 08/10/2022 2:54 PM EST documented as of this encounter Care Teams Bridal Stylist Sales Consultant Relationship Specialty Start Date End Date Flaquita Dorsey DO [address] [place] [id number] PCP - General 12/14/21 Aliyah Valencia MD [address] [place] [address] Referring Physician 03/10/21 documented as of this encounter
--- OUTSIDE RECORDS SUMMARY | 2024-07-10 11:59 | XMS_ITS | Encounter Summary ---
Author Organization Healthcare Address [address] [place] [address] Care Team Providers Care Warehouse Handler Name Role Phone Aliyah Valencia MD Unavailable [phone] Flaquita Dorsey DO Primary Care Provider [phone] Reason for Referral * Imaging (Routine) - Closed Specialty Diagnoses / Procedures Referred By Donal willis Referred To Contact Radiology Diagnoses S/P cardiac cath Chest pain, unspecified type Procedures CT Angio Cardiac Coronary Arteries Antolin Webber MD [address] [place] [phone] Phone: tel: fax: Referral ID Status Reason Start Date Expiration Date Visits Re quested Visits Authorized [id number] Closed 07/19/2022 01/18/2024 1 1 Reason for Visit * Imaging (Routine) - Closed Specialty Diagnoses / Procedures Referred By Donal willis Referred To Contact Radiology Diagnoses S/P cardiac cath Chest pain, unspecified type Procedures CT Angio Cardiac Coronary Arteries Antolin Webber MD [address] [place] [address] Phone: tel: fax: Referral ID Status Reason Start Date Expiration Date Visits Re quested Visits Authorized [id number] Closed 07/19/2022 01/18/2024 1 1 Encounter Details Date Type Department Care Team (Late st Contact Info) Description 08/17/2022 9:26 AM EST - 08/17/2022 11:59 PM EST Hospital Encounter [facility] [address] [place] [address] Katiana Tuttle RN [facility] S/P cardiac cath; Chest pain, unspecified type Discharge Disposition: Home or Self Care Social [...] suspected to have Coronavirus/COVID-19? No / Unsure 08/17/2022 9:11 AM EST documented as of this encounter Last Filed Vital Signs Vital Sign Reading Time Taken Comments Blood Pressure 107/55 08/17/2022 10:28 AM EST Pulse 63 08/17/2022 10:28 AM EST Temperature - - Respiratory Rate 17 08/17/2022 10:28 AM EST Oxygen Saturation 95% 08/17/2022 10:28 AM EST Inhaled Oxygen Concentration - - Weight 80.3 kg (177 lb) 08/17/2022 9:46 AM EST Height - - Body Mass Index 30.86 08/10/2022 2:54 PM EST documented in this encounter Discharge Instructions * Attachments The following attachments cannot be sent through Care Everywhere. * Contrast Imaging Discharge Instructions ([place]) ([place]) documented in this encounter Medications at Time of Discharge aspirin 81 MG chewable tablet Chew 1 tablet (81 mg) 1 (one) time each day. ergocalciferol (Vitamin D-2) 1.25 MG (96233 UT) capsule Take 1 capsule (50,000 Units) [...] a day. 90 capsule 2 08/10/2022 3 hydrOXYzine HCl (Atarax) 25 MG tablet [...] 08/05/2024 8:00 AM EST Office Visit [facility] Gynecology [address] [facility] [address] [place] [address] Penelope Carmona MD [address] [facility] [address] [facility] [address] [place] [address] 08/05/2024 9:30 AM EST Appointment [facility] Infusion Clinic [address] [place] [id number] 02/26/2025 9:30 AM EDT Appointment [facility] Breast Care Center [facility] [address] [facility] [address] [place] [address] 02/26/2025 10:30 AM EDT Office Visit [facility] Breast Care Center [address] [facility] [place] [address] Berenice Resendez, WARRANT CLERK [address] [facility] [address] [facility] [address] [place] [address] documented as of this encounter Procedures Procedure Name Priority Date/Time Associated Diagnosis Comments CT ANGIO CARDIAC CORONARY ARTERIES Routine 08/17/2022 10:21 AM EST S/P cardiac cath Chest pain, unspecified type documented in this encounter Results * CT Angio Cardiac Coronary Arteries (08/17/2022 10:21 AM EST) Anatomical Region Laterality Modality Heart Computed Tomogra phy Impressions 08/17/2022 4:11 PM EST 1. Moderate coronary calcification with an Agatston score = 151 using the AJ-130 method, which represents 65 percentile when matched for age, gender and ethnicity. ??Vascular age is 76 years. 2. Nonobstructive coronary artery disease. Mild ostial LAD stenosis. Minimal distal LMCA stenosis and proximal LAD stenosis. 3. CAD-RADS 2: Management recommendations: ??Consider non-atherosclerotic causes of chest pain. Consider preventative therapy and risk factor modification, particularly for patients with non-obstructive plaque in multiple segments. ?? 4. ??Mild calcific atherosclerosis of visualized portion. 5. Left lower lobe linear scarring versus atelectasis, unchanged compared to prior CT. CRITICAL RESULT: No. COMMUNICATION: Per this written report. Approved by Safia Hawley MD on 08/17/2022 2:42 PM By electronically signing this report, I, the attending physician, attest that I have personally reviewed the images/data for the above examination(s) and agree with the final edited report. Dictated by aSfia Hawley MD on 08/17/2022 2:42 PM Signed by Ludin Maynard MD on 08/17/2022 4:11 PM Narrative 08/17/2022 4:11 PM EST Exam/Procedure: CT ANGIO CARDIAC CORONARY ARTERIES ordered by ANTOLIN WEBBER, [id number] CLINICAL INDICATION: 76 years Female ??presents with complains of chest pain with clinical features suggesting myocardial ischemia Clinical Data Height: 161 cm Weight: 80 kg Risk Factors: Hypertension, CKD Relevant Cardiac Diagnostic Tests: None available at the time of review TECHNIQUE: Image Acquisition: A Dual source 192 MDCT scanner (Som[employer] Force, [employer]) was used for data acquisition. A non-contrast coronary calcium scan was initially performed. Bolus tracking in the ascending aorta with a threshold of 180 HU was performed. Immediately afterwards, ECG synchronized Cardiac CT was then performed from cardiac base to apex using prospective gating. A total of 80 mL Omnipaque 350mgI/mL contrast media was administered at 4.5 mL/sec followed by a saline flush using a biphasic injection protocol. ??A tube voltage of 120 kVp was used. ?? The patient received the following medications prior to the Cardiac CT: 0.8 mg sublingual nitroglycerin. The average heart rate at the time of acquisition was 57 bpm (56 bpm to 60 bpm) and regular. Image Reconstruction: Transaxial images were reconstructed at 0.75 mm slice thickness. ??Data was reviewed interactively on an advanced workstation ([employer]) capable of 2 and 3 dimensional displays in all conventional reconstruction formats including multiplanar reformations, maximum intensity projections, curved multiplanar reformations, and volume rendered reconstructions. Selected routine images displaying relevant coronary anatomy and pathology were saved and sent to PACS. Complications: None Technical Quality: Overall image quality is Excellent. Coronary artery opacification is Excellent Artifact: Non-limiting motion artifact Total DLP (Dose-Length Product): 250.42 mGy.cm. (3.5 mSv) Please note: The reported value represents the total of one or more individual components during the CT acquisition on this date and at this time, and as such, the same value may appear in more than one CT report depending on the interpreting/reporting physicians. COMPARISON: CT chest with IV contrast done on August 10, 2022 FINDINGS: -CT Coronary Calcium Scoring- LMA= 49 LAD= 102 LCX= 0 RCA= 0 Total calcium score = 151 using the AJ-130 method. This score is in the 65 percentile rank for age and gender, meaning that 35 % of patients of the same age and gender will have a higher score. The total volume score is 132. The calculated vascular age for this patient is 76 years. There is no identifiable calcification in the aortic wall, mitral annulus/valve, pericardium, myocardium. -Coronary CT Angiography- Coronary Arteries: The coronaries have normal origin and proximal course. The coronary arterial system is right ??dominant. Note: Stenosis is reported as maximum percentage diameter stenosis. Stenosis grading is reported using the following scheme. Quantitative Stenosis Grading: CAD-RADS 0: 0% - No visible stenosis CAD-RADS 1: 1-24% - Minimal stenosis CAD-RADS 2: 25-49% - Mild stenosis CAD-RADS 3: 50-69% - Moderate stenosis CAD-RADS 4A: 70-99% - Severe stenosis in 1-2 vessels CAD-RADS 4B: Left main >50%, or 3 vessel >70% CAD-RADS 5: 100% - Occluded Left Main: CAD-RADS 1. The left main trifurcates into the left anterior descending artery, ramus intermedius and left circumflex artery. Calcified plaque in the distal LMCA extending into ostial LAD with minimal stenosis. LAD and Diagonals: CAD-RADS 2. Left anterior descending artery is a large caliber vessel, courses in the interventricular groove and wraps around the apex. It gives one significant diagonal branch. Ostial LAD calcified plaque with mild stenosis. Calcified plaque in the proximal LAD at the origin of diagonal branch with minimal stenosis. Diagonal branches free of any plaque or stenosis Ramus: CAD-RADS 0. Ramus artery is small short vessel. No visible plaque or stenosis. LCx and Obtuse Marginals: CAD-RADS 0. Left circumflex artery is medium caliber vessel, and courses through the left atrioventricular groove. It gives off one obtuse marginal branch. No visible plaque or stenosis. RCA: CAD-RADS 0. Dominant right coronary artery is large caliber vessel and courses normally in right atrioventricular groove. It gives off PDA and PLV branch. No visible plaque or stenosis. Non Coronary Cardiac Findings: Normal cardiac chamber size. No pericardial thickening or calcification. Tip of central venous catheter the superior vena cava. Normal interatrial and interventricular septum, pulmonary veins and imaged central veins. Extra Cardiac Structures: Central and branch pulmonary arteries in the field of view are unremarkable. Mild calcific atherosclerosis of visualized portion of the aorta. Degenerative disease of spine.. Left lower lobe linear scarring versus atelectasis. Procedure Note Ludin Maynard MD - 08/17/2022 Exam/Procedure: CT ANGIO CARDIAC CORONARY ARTERIES ordered by AgraQuestDAVON, [id number] CLINICAL INDICATION: 76 years Female presents with complains of chest pain with clinicalfeatures suggesting myocardial ischemia Clinical Data Height: 161 cm Weight: 80 kg Risk Factors: Hypertension, CKD Relevant Cardiac Diagnostic Tests: None available at the time of review TECHNIQUE: Image Acquisition: A Dual source 192 MDCT scanner (Somatom Force, [employer])was used for data acquisition. A non-contrast coronary calcium scan wasinitially performed. Bolus tracking in the ascending aorta with athreshold of 180 HU was performed. Immediately afterwards, ECGsynchronized Cardiac CT was then performed from cardiac base to apex usingprospective gating. A total of 80 mL Omnipaque 350mgI/mL contrast mediawas administered at 4.5 mL/sec followed by a saline flush using a biphasicinjection protocol. A tube voltage of 120 kVp was used. The patient received the following medications prior to the Cardiac CT:0.8 mg sublingual nitroglycerin. The average heart rate at the time of acquisition was 57 bpm (56 bpm to 60bpm) and regular. Image Reconstruction: Transaxial images were reconstructed at 0.75 mm slice thickness. Data wasreviewed interactively on an advanced workstation ([employer]) capable of 2and 3 dimensional displays in all conventional reconstruction formatsincluding multiplanar reformations, maximum intensity projections, curvedmultiplanar reformations, and volume rendered reconstructions. Selectedroutine images displaying relevant coronary anatomy and pathology weresaved and sent to PACS. Complications: None Technical Quality: Overall image quality is Excellent. Coronary artery opacification is Excellent Artifact: Non-limiting motion artifact Total DLP (Dose-Length Product): 250.42 mGy.cm. (3.5 mSv) Please note: Thereported value represents the total of one or more individual componentsduring the CT acquisition on this date and at this time, and as such, thesame value may appear in more than one CT report depending on theinterpreting/reporting physicians. COMPARISON: CT chest with IV contrast done on August 10, 2022 FINDINGS: -CT Coronary Calcium Scoring- LMA= 49 LAD= 102 LCX= 0 RCA= 0 Total calcium score = 151 using the AJ-130 method. This score is in the 65percentile rank for age and gender, meaning that 35 % of patients of thesame age and gender will have a higher score. The total volume score is132. The calculated vascular age for this patient is 76 years. There is no identifiable calcification in the aortic wall, mitralannulus/valve, pericardium, myocardium. -Coronary CT Angiography- Coronary Arteries: The coronaries have normal origin and proximal course. The coronaryarterial system is right dominant. Note: Stenosis is reported as maximum percentage diameter stenosis.Stenosis grading is reported using the following scheme. Quantitative Stenosis Grading: CAD-RADS 0: 0% - No visible stenosis CAD-RADS 1: 1-24% - Minimal stenosis CAD-RADS 2: 25-49% - Mild stenosis CAD-RADS 3: 50-69% - Moderate stenosis CAD-RADS 4A: 70-99% - Severe stenosis in 1-2 vessels CAD-RADS 4B: Left main >50%, or 3 vessel >70% CAD-RADS 5: 100% - Occluded Left Main: CAD-RADS 1. The left main trifurcates into the left anteriordescending artery, ramus intermedius and left circumflex artery. Calcifiedplaque in the distal LMCA extending into ostial LAD with minimal stenosis. LAD and Diagonals: CAD-RADS 2. Left anterior descending artery is a largecaliber vessel, courses in the interventricular groove and wraps aroundthe apex. It gives one significant diagonal branch. Ostial LAD calcified plaque with mild stenosis. Calcified plaque in the proximal LAD at theorigin of diagonal branch with minimal stenosis. Diagonal branches free ofany plaque or stenosis Ramus: CAD-RADS 0. Ramus artery is small short vessel. No visible plaqueor stenosis. LCx and Obtuse Marginals: CAD-RADS 0. Left circumflex artery is mediumcaliber vessel, and courses through the left atrioventricular groove. Itgives off one obtuse marginal branch. No visible plaque or stenosis. RCA: CAD-RADS 0. Dominant right coronary artery is large caliber vesseland courses normally in right atrioventricular groove. It gives off PDAand PLV branch. No visible plaque or stenosis. Non Coronary Cardiac Findings: Normal cardiac chamber size. No pericardial thickening or calcification. Tip of central venous catheter the superior vena cava. Normal interatrial and interventricular septum, pulmonary veins and imagedcentral veins. Extra Cardiac Structures: Central and branch pulmonary arteries in the field of view areunremarkable. Mild calcific atherosclerosis of visualized portion of the aorta. Degenerative disease of spine.. Left lower lobe linear scarring versusatelectasis. IMPRESSION: 1. Moderate coronary calcification with an Agatston score = 151 using theAJ-130 method, which represents 65 percentile when matched for age, genderand ethnicity. Vascular age is 76 years. 2. Nonobstructive coronary artery disease. Mild ostial LAD stenosis.Minimal distal LMCA stenosis and proximal LAD stenosis. 3. CAD-RADS 2: Management recommendations: Consider non-atheroscleroticcauses of chest pain. Consider preventative therapy and risk factormodification, particularly for patients with non-obstructive plaque inmultiple segments. 4. Mild calcific atherosclerosis of visualized portion. 5. Left lower lobe linear scarring versus atelectasis, unchanged comparedto prior CT. CRITICAL RESULT: No. COMMUNICATION: Per this written report. Approved by Safia Hawley MD on 08/17/2022 2:42 PM By electronically signing this report, I, the attending physician, mickie I have personally reviewed the images/data for the aboveexamination(s) and agree with the final edited report. Dictated by Safia Hawley MD on 08/17/2022 2:42 PM Signed by Ludin Maynard MD on 08/17/2022 4:11 PM Antolin Webber MD IMG CT PROCEDURES Final Result documented in this encounter Visit Diagnoses Diagnosis S/P cardiac cath Other postprocedural status Chest pain, unspecified type documented in this encounter Administered Medications Inactive Administered Medications - up to 3 most recent administrations Medication Order MAR Action Action Date Dose Rate Site heparin flush (porcine) 100 UNIT/ML injection 500 Units 500 Units, Intracatheter, Once as needed, 1 dose, Starting on Mon08/17/22 at 0947, Until Mon08/17/22 at 1032, Routine, Intraprocedure, line care Given 08/17/2022 10:32 AM EST 500 Units iohexol (OMNIPaque) 350 MG/ML injection 80 mL 80 mL, Intravenous, Once in imaging, 1 dose, Starting on Mon08/17/22 at 0945, Until Mon08/17/22 at 1022, Routine, Imaging Protocol Orders Given 08/17/2022 10:22 AM EST 80 mL nitroglycerin (Nitrostat) SL tablet 0.8 mg 0.8 mg, Sublingual, Every 5 min PRN, Starting on Mon08/17/22 at 0936, Until Mon08/17/22 at 2135, Routine, Intraprocedure, chest pain, oo Given 08/17/2022 10:18 AM EST 0.8 mg documented in this encounter Additional Health Concerns Assessment Noted Time A fall risk assessment has been complete d for the patient 08/10/2022 2:54 PM EST documented as of this encounter Care Teams Warehouse Handler Relationship Specialty Start Date End Date Flaquita Dorsey DO [address] [place] [phone] PCP - General 12/14/21 Aliyah Valencia MD [address] [place] [id number] Referring Physician 03/10/21 documented as of this encounter
--- OUTSIDE RECORDS SUMMARY | 2024-07-10 11:59 | XMS_ITS | Encounter Summary ---
Author Organization [facility] Address [address] [place] [address] Care Team Providers Care Silver Spray Worker Name Role Phone Aliyah Valencia MD Unavailable [phone] Flaquita Dorsey DO Primary Care Provider [phone] Encounter Details Date Type Department Care Team (Late st Contact Info) Description 08/16/2022 Telephone [facility] [address] [place] [address] Miriam Meyer, PharmD Social History [...] AM EST documented as of this encounter Miscellaneous Notes * Telephone Encounter - Miriam Meyer - 08/16/2022 10:10 AM EST [facility] Specialty Medication Follow Up Care Plan Daniela John is a 76 y.o. 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 Chart Review Calcium, Morphine, and Sulfacetamide Current Outpatient Medications Medication Instructions aspirin 81 mg, Oral, Daily biotin 1,000 mcg, Oral, Daily cyclophosphamide (CYTOXAN) 50 mg, Oral, Daily denosumab (Prolia) 60 MG/ML injection ergocalciferol (VITAMIN D-2) 50,000 Units, Oral, Weekly famciclovir (FAMVIR) 125 mg, Oral, Daily fexofenadine (BRENDA) 180 mg, Oral, Daily Flaxseed, Linseed, (Flaxseed Oil) 1000 MG capsule Oral fluocinolone (Synalar) 0.01 % external solution fluocinolone 0.01 % topical solution APPLY TO THE AFFECTED AREA(S) ON SCALP BY TOPICAL ROUTE 2 TIMES PER DAY X 2 WEEKS PRN FLARES furosemide (LASIX) 20 mg, Oral, Daily gabapentin (NEURONTIN) 400 mg, Oral, 3 times daily hydrOXYzine HCl (Atarax) 25 MG tablet No dose, route, or frequency recorded. ketoconazole (NIZOral) 2 % shampoo No dose, route, or frequency recorded. ketoconazole (NIZOral) 2 % shampoo ketoconazole 2 % shampoo APPLY TO THE AFFECTED AREA(S), LATHER, LEAVE IN PLACE FOR 5 MINUTES, AND THEN RINSE OFF WITH WATER BY TOPICAL ROUTE QOD levothyroxine (SYNTHROID, LEVOXYL) 75 mcg, Oral, Daily before breakfast lisinopril 5 mg, Oral, Daily metoprolol tartrate (LOPRESSOR) 50 mg, Oral, 2 times daily, Take the night before CT, and morning of CT nitroglycerin (Nitrostat) 0.4 MG SL tablet No dose, route, or frequency recorded. potassium chloride ER (Micro-K) 10 MEQ ER capsule 10 mEq, Oral, 2 times daily RT prochlorperazine (COMPAZINE) 10 mg, Oral, Every 6 hours PRN senna-docusate sodium (Senokot-S) 8.6-50 MG tablet simvastatin (ZOCOR) 40 mg, Oral, Nightly triamcinolone (Kenalog) 0.025 % cream 1 application, Topical, 2 times daily Patient Active Problem List Diagnosis Malignant neoplasm of left breast in female, estrogen receptor positive (CMS/HCC) Cervical cancer (CMS/HCC) Carcinoma of fallopian tube (CMS/HCC) Neuropathy Obesity (BMI 30-39.9) Immunization History Administered Date(s) Administered Influenza, Unspecified 04/29/2020 Influenza, high-dose, quadrivalent 04/03/2018, 05/30/2019 Influenza, injectable, quadrivalent 09/08/2015, 06/04/2021 Influenza, injectable, quadrivalent, preservative free 08/12/2014 Influenza, trivalent, adjuvanted 05/26/2017 Moderna COVID-19 Vaccine (Linotype Machinist Apprentice) 12+ years 05/05/2021 Pfizer-BioNTech COVID-19 Vaccine (Purple Cap) 12+ 09/09/2020, 10/07/2020 Pneumococcal Conjugate PCV 13 08/12/2014 Pneumococcal Polysaccharide PPV23 09/08/2015 Selected lab results: Lab Results Component Value Date WBC 4.56 08/10/2022 HGB 13.0 08/10/2022 HCT 39.9 08/10/2022 PLT 216 08/10/2022 , Lab Results Component Value Date NA 139 08/10/2022 K 3.9 08/10/2022 CL 101 08/10/2022 CREATININE 0.96 08/10/2022 BUN 19 08/10/2022 GLUCOSE 118 (H) 08/10/2022 CALCIUM 9.7 08/10/2022 CO2 27 08/10/2022 , and Lab Results Component Value Date ALBUMIN 4.0 08/10/2022 ALKPHOS 67 08/10/2022 ALT 10 08/10/2022 AST 15 08/10/2022 BILITOT 0.3 08/10/2022 Is this an infusion therapy? No Patient is treatment: Experienced: Previous therapies include IV chemotherapy, Lynparza Reasons forprevious treatment failure completed course of therapy Is patient of child bearing potential? No Disease specific labs or assessments: see above Does patient have an active infection? None Drug Review Date of initiation: 03/2022 Is the patient taking concomitant therapy for this disease? Yes: Dana Drug assessment : is this the appropriate drug/dose/route/frequency/duration? Yes Drug utilization review Drug-disease precautions: No clinically significant issues identified Drug-drug interactions: No clinically significant issues identified Drug-patient precautions: No clinically significant issues identified Education and Counseling Medication specific education provided: Patient had concerns regarding some heart related issues she has had over past several months, local manufacturing sr engineer working with oncologist to assess root cause. Otherwise, no concerns regarding therapy. Monitoring Questions Patient reported outcomes: Do you [...] poor, how are you feeling overall? 6 Missed doses: Have you missed a dose in the last 4 weeks? No Patient reported response to therapy In regards to your condition, how are you feeling compared to the last time we spoke? No change Disease symptoms assessment Did the patient seek the following urgent care in the last 4 weeks? Urgent care visit: trip to local ER due to chest pain/difficulty breathing Current adverse events/side effect the patient is experiencing: fatigue If patient is experiencing adverse event or side effect, was patient counseled on selected side effects? Deferred Care Plan Questions Goal(s) of therapy: Improving or maintaining quality of life, Achieve a cure, Minimize treatment- related toxicity, and Prevent and/or slow progression of disease Patient specific goal(s) of therapy: take medication as prescribed and get some energy back Does patient have any barriers to care? No Barriers to Care Identified Mitigation strategy for identified barriers: N/A Summary/Plan Therapy is clinically appropriate given patient???s condition. At time of follow up, recent lab results, side effects experienced, impact on ADL, and patient active medication list were discussed, reviewed and documented as stated above. The patient???s goal of therapy and potential barriers to care were also reviewed and addressed as needed. Both the patient???s QOL and satisfaction score warrants continuation of therapy and care by [facility]. Previous QOL score was 5/10 and patient satisfaction score was 5/5 as reported at time of assessment. This assessment data was developed from communication with the patient. Miriam Meyer 08/16/2022 10:10 AM documented in this encounter Plan of Treatment Upcoming Encounters Date Type Department Care Team (Late st Contact Info) Description 08/05/2024 8:00 AM EST Office Visit [facility] [address] [facility] [address] [place] [address] Penelope Carmona MD [address] [facility] [address] [place] [address] 08/05/2024 9:30 AM EST Appointment [facility] 1 [address] [place] [address] 02/26/2025 9:30 AM EDT Appointment [facility] [place] [address] [facility] [address] [place] [address] 02/26/2025 10:30 AM EDT Office Visit [facility] [place] [address] [facility], 2nd [place] [address] Berenice Resendez, STEAMER OPERATOR [address] [facility] [address] [facility] [address] [place] [address] documented as of this encounter Visit Diagnoses Not on filedocumented in this encounter Additional Health Concerns Assessment Noted Time A fall risk assessment has been complete d for the patient 08/10/2022 2:54 PM EST documented as of this encounter Care Teams Silver Spray Worker Relationship Specialty Start Date End Date Flaquita Dorsey DO [address] [place], [place] [id number] PCP - General 12/14/21 Aliyah Valencia MD [address] [place] [place] [address] Referring Physician 03/10/21 documented as of this encounter
--- OUTSIDE RECORDS SUMMARY | 2024-07-10 11:59 | XMS_ITS | Encounter Summary ---
Author Organization Healthcare Address [facility] [place] [id number] Care Team Providers Care Juice Mixer Name Role Phone Aliyah Valencia MD Unavailable [phone] Flaquita Dorsey DO Primary Care Provider + [phone] Conrado Iqbal MD Unavailable Encounter Details Date Type Department Care Team ([facility] st Contact Info) Description 07/21/2022 Telephone [facility]ck [facility] Respiratory [address] [facility], [address]nd [place] [address] Conrado Iqbal MD [address] [place] [address] Social History Tobacco Use Types Packs/Day Years [...] encounter Miscellaneous Notes * Telephone Encounter - Tammy Hayes RN - 07/21/2022 9:20 AM EST Patient made aware echo has been scheduled for 08/05/2021 at 3:00 per her request. * Telephone Encounter - Ruby Mullins - 07/21/2022 8:47 AM EST Patient Phone Message Reason for Call:Patient needs to r/s scans scheduled for tomorrow. Please call Best contact number and optimal time of day to reach caller: Note: Please do not reply to this message. Follow-up communication and further actions as a result of this message need to be communicated with the patient directly, if the patient is not active onMyChart. If the patient is active on MyChart, they will receive notification of the communication/outcome via Acronist. documented in this encounter Plan of Treatment Upcoming Encounters Date Type Department Care Team (Late st Contact Info) Description 08/05/2024 8:00 AM EST Office Visit [facility] [address] [facility] [address] [place] [address] Penelope Carmona MD [address] [facility] [address] [facility] [address] [place] [address] 08/05/2024 9:30 AM EST Appointment [facility] [address] [place] [address] 02/26/2025 9:30 AM EDT Appointment [facility] [address] [facility] [address] [place] [address] 02/26/2025 10:30 AM EDT Office Visit [facility] [address] [facility]nd [place] [address] Berenice Resendez, STEAMFITTER SUPERVISOR [address] [facility] [address] [facility] [address] [place] [address] documented as of this encounter Visit Diagnoses Not on filedocumented in this encounter Additional Health Concerns Assessment Noted Time A fall risk assessment has been complete d for the patient 07/20/2022 1:31 PM EST documented as of this encounter Care Teams Juice Mixer Relationship Specialty Start Date End Date Flaquita Dorsey DO [address] [place], [place] [id number] PCP - General 12/14/21 Aliyah Valencia MD [address] [place] [address] Referring Physician 03/10/21 Conraod Iqbal MD [address] [place] [address] Service Attending Cardiology 08/19/22 documented as of this encounter
--- OUTSIDE RECORDS SUMMARY | 2024-07-10 11:59 | XMS_ITS | Encounter Summary ---
Author Organization Healthcare Address [address] [place] [id number] Care Team Providers Care Contact Center Specialist Name Role Phone Aliyah Valencia MD Unavailable [phone] Flaquita Dorsey DO Primary Care Provider [phone] Encounter Details Date Type Department Care Team (Late Contact Info) Description 08/18/2022 Telephone [facility] Radiology [address] [place] [address] Gabrielle Liu RN [facility] Social History Tobacco Use Types Packs/Day Years [...] [address] [place] [address] Penelope Carmona MD [address] [place] [address] 08/05/2024 9:30 AM EST Appointment [facility] 1 [address] [place] [address] 02/26/2025 9:30 AM EDT Appointment [facility] [place] [facility] [address]ai [facility] [address] [place] [address] 02/26/2025 10:30 AM EDT Office Visit [facility] [place] [address] [facility], 2nd [place] [address] Berenice Resendez, ARTIFICIAL BREEDING TECHNICIAN [address] [facility] [address]ai [address] [address] documented as of this encounter Visit Diagnoses Not on filedocumented in this encounter Additional Health Concerns Assessment Noted Time A fall risk assessment has been complete d for the patient 08/10/2022 2:54 PM EST documented as of this encounter Care Teams Contact Center Specialist Relationship Specialty Start Date End Date Flaquita Dorsey DO [address] [place] [address] PCP - General 12/14/21 Aliyah Valencia MD [address] [place] [address] Referring Physician 03/10/21 documented as of this encounter
--- OUTSIDE RECORDS SUMMARY | 2024-07-10 11:59 | XMS_ITS | Encounter Summary ---
Author Organization [facility] Address [address] [place], [place] [address] Care Team Providers Care Classifying Machine Operator Name Role Phone Aliyah Valencia MD Unavailable [phone] Flaquita Dorsey DO Primary Care Provider [phone] Reason for Referral * Imaging (Routine) - Closed Specialty Diagnoses / Procedures Referred By Donal willis Referred To Contact Cardiology Diagnoses S/P cardiac cath Chest pain, unspecified type Procedures Echo, Adult Transthoracic Complete Farhat Webber MD [address] [place] [address] Phone: tel: fax: Referral ID Status Reason Start Date Expiration Date V isits Requested Visits Authorized [id number] Closed Perform Procedure 07/19/2022 01/18/2024 1 1 Reason for Visit * Reason Comments Procedure Echo * Imaging (Routine) - Closed Specialty Diagnoses / Procedures Referred By Contac t Referred To Contact Cardiology Diagnoses S/P cardiac cath Chest pain, unspecified type Procedures Echo, Adult Transthoracic Complete Farhat Webber MD [address] [place] [address] Phone: tel: fax: Referral ID Status Reason Start Date Expiration Date V isits Requested Visits Authorized [id number] Closed Perform Procedure 07/19/2022 01/18/2024 1 1 Encounter Details Date Type Department Care Team (Latest Contact Info) Description 08/05/2022 2:27 PM EST - 08/05/2022 11:59 PM EST Hospital Encounter [facility] Echo [address] [place] [address] S/P cardiac cath; Chest pain, unspecified type Discharge Disposition: Home or Self Care Social History Tobacco Use Types Packs/Day Years Used Date Smoking Tobacco: Former Cigarettes 0.5 22 1 976 - 1997 Smokeless Tobacco: Former Tobacco Cessation:Counseling Given: No Alcohol Use Standard Drinks/Week Comments Not Currently [...] Sign Reading Time Taken Comments Blood Pressure 106/70 08/05/2022 2:40 PM EST Pulse 93 08/05/2022 2:40 PM EST Temperature 36.7 ??C (98 ??F) 08/05/2022 2:40 PM EST Respiratory Rate 18 08/05/2022 2:40 PM EST Oxygen Saturation 96% 08/05/2022 2:40 PM EST Inhaled Oxygen Concentration - - Weight 79.8 kg (175 lb 14.8 oz) 08/05/2022 2:40 PM EST Height 160 cm (5' 3 ) 08/05/2022 2:40 PM EST Body Mass Index 31.16 08/05/2022 2:40 PM EST documented in this encounter Medications at Time of Discharge aspirin 81 MG chewable tablet Chew 1 tablet (81 mg) 1 (one) time each day. ergocalciferol (Vitamin D-2) 1.25 MG (33252 UT) capsule Take 1 capsule (50,000 Units) [...] Description 08/05/2024 8:00 AM EST Office Visit [facility] Gynecology [address] [facility] [address] [place] [address] Penelope Carmona MD [address] [facility] [address] Gu[address] [facility] [address] [place] [address] 08/05/2024 9:30 AM EST Appointment [facility] Infusion Clinic 1 [address] [place] [address] 02/26/2025 9:30 AM EDT Appointment [facility] Breast [facility] [place] [address] [address] [facility] [address] [place] [address] 02/26/2025 10:30 AM EDT Office Visit [facility] [address] [facility], 2nd [place] [address] Berenice Resendez, CHARACTER ARTIST [address] [facility] [address] [facility] [address] [place] [address] documented as of this encounter Procedures Procedure Name Priority Date/Time Associated Diagnosis Comments ECHO, ADULT TRANSTHORACIC COMPLETE W/ STRAIN Routine 08/05/2022 4:09 PM EST S/P cardiac cath Chest pain, unspecified type documented in this encounter Results * ECHO, ADULT TRANSTHORACIC COMPLETE W/ STRAIN (08/05/2022 4:09 PM EST) BSA 1.83 m2 LORENZO ISCV LVIDd 42 mm LORENZO ISCV LVIDs 28 mm LORENZO ISCV IVSd 7 mm LORENZO ISCV LVPWd 9 mm LORENZO ISCV LV MASS(C)D 101 g LORENZO ISCV LV RWT 0.38 mm LORENZO ISCV LVOT diam 19 mm LORENZO ISCV LVOT AREA 2.8 cm2 LOREZNO ISCV LV V1 VTI 19.1 cm LORENZO ISCV SV(LVOT) 54 mL LORENZO ISCV TR Vmax 240.0 cm/s LORENZO ISCV LA dimension 32 mm LORENZO ISCV TAPSE 19 mm LORENZO ISCV TR Max PG 23 mmHG LORENZO ISCV PA acc time 50 msec LORENZO ISCV mean PAP 57 mmHg LORENZO ISCV LV V1 Vmax 94.2 cm/s LORENZO ISCV Ao V2 VTI 45.9 cm LORENZO ISCV Ao mean PG 17 mmHg LORENZO ISCV Ao V2 Vmax 268.2 cm/s LORENZO ISCV Ao max PG 29 mmHg LORENZO ISCV AV VTI Index 0.42 LORENZO ISCV ADITI(I,D) 1.2 cm2 LORENZO ISCV ADITI(VTI)/BSA_ph l 0.6 cm2/m2 LORENZO ISCV Ao Root Diam 25 mm LORENZO ISCV Asc Ao Diam 25 mm LORENZO ISCV Height 160.0 LORENZO ISCV Weight 80.0 LORENZO ISCV PA WY(ACCEL) 54.5 mmHg LORENZO ISCV LV mean PG 2.0 mmHG LORENZO ISCV LV V1 mean 64.7 cm/sec LORENZO ISCV LV max PG 3.5 mmHg LORENZO ISCV AV-pr VR 0.4 LORENZO ISCV Ao V2 mean 195.7 cm/s LORENZO ISCV Baseline Systolic BP 106 LORENZO ISCV Baseline Diastolic BP 70 LORENZO ISCV Heart Rate 87 LORENZO ISCV LV EDV(MOD-4ch) 53 mL LORENZO ISCV LV ESV(MOD4ch) 25 mL LORENZO ISCV EF(MOD-sp4) 53 % LORENZO ISCV LV EDV(MOD-2ch) 36 mL LORENZO ISCV EDV(MOD-bp) 45 mL LORENZO ISCV LV ESV(MOD2ch) 17 mL LORENZO ISCV EF(MOD-sp2) 53 % LORENZO ISCV ESV(MOD-bp) 21 mL LORENZO ISCV EF(MOD-bp) 53 % LORENZO ISCV LVLs ap2 6.9 mm LORENZO ISCV RVSP 26 mmHg LORENZO ISCV RAP systole 3 mmHg LORENZO ISCV MV E Vmax 69.0 cm/s LORENZO ISCV MV A Vmax 96.0 cm/s LORENZO ISCV MV E/A 0.7 cm/s LORENZO ISCV LV Lat e' Velocity 8.3 cm/s LORENZO ISCV LV Sept e' Gus 7.3 cm/s LORENZO ISCV Lat E/e' 8.3 LORENZO ISCV Sep E/e' 9.5 LORENZO ISCV Avg E/e' 8.9 LORENZO ISCV Anatomical Region Laterality Modality Echocardiography Narrative 08/05/2022 4:36 PM EST ?Left??Ventricle: The left ventricle is normal size. There is normal left ventricular myocardial thickness and mass. The left ventricular systolic function is normal. The LVEF as measured by biplane volume is 53%. The global longitudinal strain is normal (<-18%). The diastolic function is normal. ?Aortic??Valve: The aortic valve appears to be trileaflet. The cusp(s) are calcified. There is no valvular regurgitation. There is mild to moderate aortic stenosis. The peak gradient is 29 mmHg. The mean gradient is 17 mmHg. The estimated aortic valve area by the continuity equation is 1.2 cm2. ?Compared to the most recently available prior study, and allowing for differences in image quality and technique, there is no significant interval change noted. ?? Left Ventricle The left ventricle is normal size. There is normal left ventricular myocardial thickness and mass. The left ventricular systolic function is normal. The LVEF as measured by biplane volume is 53%. The global longitudinal strain is normal (<- 18%). The left ventricular wall motion is normal. The diastolic function is normal. No left ventricular mass or thrombus is seen. Right Ventricle The right ventricle is normal in size. There is normal right ventricular wall thickness. The right ventricular systolic function is normal. Right ventricular systolic pressure is normal (<35mmHg). Left Atrium The left atrial size is normal with an indexed volume of 16-34 mL/m2. The interatrial septum is intact with no evidence for an atrial septal defect. Right Atrium The right atrium is dilated by visual assessment. IVC/SVC Based on the IVC size and respiratory variation, the estimated right atrial pressure is 3mmHg. Mitral Valve There is mild mitral annular calcification. There is trace mitral regurgitation. There is no mitral stenosis. There is no mitral valve vegetation. Tricuspid Valve The tricuspid valve is normal in appearance. There is mild tricuspid regurgitation. There is no tricuspid stenosis. There is no tricuspid valve vegetation. Aortic Valve The aortic valve appears to be trileaflet. The cusp(s) are calcified. There is no valvular regurgitation. There is mild to moderate aortic stenosis. The peak gradient is 29 mmHg. The mean gradient is 17 mmHg. The estimated aortic valve area by the continuity equation is 1.2 cm2. There is no aortic valve vegetation. Pulmonic Valve The pulmonic valve is normal in appearance. There is mild pulmonic regurgitation. There is no pulmonic stenosis. There is no pulmonic valve vegetation. Pericardium No pericardial effusion. Great Vessels The aortic root is normal in size. The sinus of Valsalva (aortic root) diameter is 25 mm by leading edge to leading edge method. In the maximally visualized portion, the ascending aorta appears normal in size. In the maximally visualized portion, the aortic arch appears normal in size. The main pulmonary artery is normal in size. Study Details A complete transthoracic echocardiogram using two-dimensional (2D), m-mode, color and spectral flow Doppler and strain imaging was performed. During the study the apical, parasternal, subcostal and suprasternal view was captured. The study was technically difficult due to patient's clinical status and body habitus. BP: 106/70 mmHg. Heart Rate: 87 bpm. Height: 160.0 cm. Weight: 80.0 kg. BSA: 1.83 m2. Study Recommendation Compared to the most recently available prior study, and allowing for differences in image quality and technique, there is no significant interval change noted. us Farhat Webber MD CV ECHO PROCEDURES Final Resul t documented in this encounter Visit Diagnoses Diagnosis S/P cardiac cath Other postprocedural status Chest pain, unspecified type documented in this encounter Additional Health Concerns Assessment Noted Time A fall risk assessment has been complete d for the patient 08/05/2022 2:43 PM EST documented as of this encounter Care Teams Classifying Machine Operator Relationship Specialty Start Date End Date Flaquita Dorsey DO [address] [place], [place] [phone] PCP - General 12/14/21 Aliyah Valencia MD [address] [place] [place], [place] [address] Referring Physician 03/10/21 documented as of this encounter
--- OUTSIDE RECORDS SUMMARY | 2024-07-10 11:59 | XMS_ITS | Encounter Summary ---
Author Organization Healthcare Address [address] [place] [address] Care Team Providers Care Ornamental Metal Erector Name Role Phone Aliyah Valencia MD Unavailable [phone] Flaquita Dorsey DO Primary Care Provider [phone] Encounter Details Date Type Department Care Team (Latest Contact Info) Description 08/17/2022 Travel Social History Tobacco Use Types Packs/Day [...] [address] [place] [address] Penelope Carmona MD [address] [place] [address] 08/05/2024 9:30 AM EST Appointment [facility] 1 [address] [place] [address] 02/26/2025 9:30 AM EDT Appointment [facility] [address] Building [address] [place] [address] 02/26/2025 10:30 AM EDT Office Visit [facility] [address] [facility], 2nd [place] [address] Berenice Resendez D, CRAWLER TRACTOR OPERATOR [address] [facility] [address] [place] [address] documented as of this encounter Visit Diagnoses Not on filedocumented in this encounter Additional Health Concerns Assessment Noted Time A fall risk assessment has been complete d for the patient 08/10/2022 2:54 PM EST documented as of this encounter Care Teams Ornamental Metal Erector Relationship Specialty Start Date End Date Flaquita Dorsey DO [address] [place], [place] [id number] PCP - General 12/14/21 Aliyah Valencia MD [address] [place] [address] Referring Physician 03/10/21 documented as of this encounter
--- OUTSIDE RECORDS SUMMARY | 2024-07-10 11:59 | XMS_ITS | Encounter Summary ---
Author Organization [facility] Address [address] [place] [address] Care Team Providers Care Pattern Chain Builder Name Role Phone Aliyah Valencia MD Unavailable [phone] Flaquita Dorsey DO Primary Care Provider [phone] Reason for Referral * Imaging (Routine) - Closed Specialty Diagnoses / Procedures Referred By Contac t Referred To Contact Radiology Diagnoses Carcinoma of fallopian tube, unspecified laterality (CMS/HCC) Procedures CT Abdomen Pelvis w IV Contrast Penny Carmona MD [address] [address] Phone: tel: fax: Referral ID Status Reason Start Date Expiration Date Visits Re quested Visits Authorized [id number] Closed 07/20/2022 01/19/2024 1 1 * Imaging (Routine) - Closed Specialty Diagnoses / Procedures Referred By Contac t Referred To Contact Radiology Diagnoses Carcinoma of fallopian tube, unspecified laterality (CMS/HCC) Procedures CT Chest w IV Contrast Penny Carmona MD [address] [address] Phone: tel: fax: Referral ID Status Reason Start Date Expiration Date Visits Re quested Visits Authorized [id number] Closed 07/20/2022 01/19/2024 1 1 Reason for Visit * Imaging (Routine) - Closed Specialty Diagnoses / Procedures Referred By Contac t Referred To Contact Radiology Diagnoses Carcinoma of fallopian tube, unspecified laterality (CMS/HCC) Procedures CT Abdomen Pelvis w IV Contrast Penny Carmona MD [address] [place] [address] Phone: tel: fax: Referral ID Status Reason Start Date Expiration Date Visits Re quested Visits Authorized [id number] Closed 07/20/2022 01/19/2024 1 1 Encounter Details Date Type Department Care Team (Latest Contact Info) Description 08/10/2022 9:44 AM EST - 08/10/2022 2:52 PM EST Hospital Encounter [facility] [address] [place] [address] Carcinoma of fallopian tube, unspecified laterality (CMS/HCC) [...] AM EST documented as of this encounter Discharge Instructions * Attachments The following attachments cannot be sent through Care Everywhere. * Contrast Imaging Discharge Instructions ([place]) ([place]) documented in this encounter Medications at Time of Discharge aspirin 81 MG chewable tablet Chew 1 tablet (81 mg) 1 (one) time each day. ergocalciferol (Vitamin D-2) 1.25 MG (53213 UT) capsule Take 1 capsule (50,000 Units) by mouth 1 (one) time per week. Jamari furosemide (Lasix) 20 MG tablet Take 1 [...] DAY X 2 WEEKS PRN FLARES 3 hydrOXYzine HCl (Atarax) 25 MG tablet [...] Description 08/05/2024 8:00 AM EST Office Visit [facility] Gynecology [address] [facility] [address] [place] [address] Penny Carmona MD [address] [facility] [address] [facility] [address] [place] [address] 08/05/2024 9:30 AM EST Appointment [facility] 1 [address] [place] [address] 02/26/2025 9:30 AM EDT Appointment [facility] [place] [address] [address] [facility] [address] [place] [address] 02/26/2025 10:30 AM EDT Office Visit [facility] Breast Care Center [address] [facility], 2nd [place] [address] Berenice Resendez, UTILIZATION SUPERVISOR [address] [facility] [address] [facility] [address] [place] [address] documented as of this encounter Procedures Procedure Name Priority Date/Time Associated Diagnosis Comments CT ABDOMEN PELVIS W IV CONTRAST Routine 08/10/2022 11:08 AM EST Carcinoma of fallopian tube, unspecified laterality (CMS/HCC) CT CHEST W IV CONTRAST Routine 08/10/2022 11:08 AM EST Carcinoma of fallopian tube, unspecified laterality (CMS/HCC) documented in this encounter Results * CT Abdomen Pelvis w IV Contrast (08/10/2022 11:08 AM EST) Anatomical Region Laterality Modality Abdomen, Pelvis Computed Tomogra phy Impressions 08/10/2022 1:08 PM EST Chest: No evidence of metastatic disease within the chest. Abdomen/Pelvis: Interval resolution of previously noted vaginal cuff mass. No new pelvic masses. No adenopathy. Unchanged right adrenal gland indeterminate nodule. CRITICAL RESULT: ?? No. COMMUNICATION: Per this written report. Dictated by Sung Schneider MD on 08/10/2022 12:51 PM Signed by Sung Schneider MD on 08/10/2022 1:08 PM Narrative 08/10/2022 1:08 PM EST Exam/Procedure: CT CHEST W IV CONTRAST ordered by PENNY BANERJEE [place], [id number] CLINICAL INDICATION: Ovarian cancer, assess treatment response [...] vessels.. Coronary artery and aortic valve calcification. Right chest wall port with tip at the superior cavoatrial junction. Lungs and Pleura: Centrilobular result patent. Bibasilar atelectasis. No suspicious lung nodules to suggest metastatic disease. Unchanged right upper lobe 2 mm nodule (series 4 image 68). No pleural effusions or suspicious thickening. Musculoskeletal and Body Wall: No clearly aggressive bone lesions. Multilevel degenerative changes of the spine. Unchanged asymmetric left breast soft tissue with multiple adjacent surgical clips. No significant axillary adenopathy. Abdomen/Pelvis: Solid Abdominal Organs: Homogenous [...] of the sigmoid colon. No evidence of inflammatory change or obstruction. No suspicious peritoneal/mesenteric findings. [...] L5. Multilevel degenerative changes of the spine. Procedure Note Snug Schneider MD - 08/10/2022 Exam/Procedure: CT CHEST W IV CONTRAST ordered by PENNY BANERJEE [place],[id number] CLINICAL INDICATION: Ovarian cancer, assess treatment response TECHNIQUE: Multiple axial CT images were obtained from thoracic inlet through pubicsymphysis following administration of IV contrast, Omnipaque 350, 100 mL.Reformatted images of the abdomen and pelvis in the coronal and sagittalplanes were generated from the axial data set to facilitate diagnosticaccuracy. Total DLP (Dose-Length Product): 536.25 mGy.cm. Please note: The reportedvalue represents the [...] is normal in size. Thoracic great vessels arepatent with proximal calcification of the aortic arch branching vessels..Coronary artery and aortic valve calcification. Right chest wall port withtip at the superior cavoatrial junction. Lungs and Pleura: Centrilobular result patent. Bibasilar atelectasis. Nosuspicious lung nodules to suggest metastatic disease. Unchanged rightupper lobe 2 mm nodule (series 4 image 68). No pleural effusions orsuspicious thickening. Musculoskeletal and Body Wall: No clearly aggressive bone lesions.Multilevel degenerative changes of the spine. Unchanged asymmetric leftbreast soft tissue with multiple adjacent surgical clips. No significantaxillary adenopathy. Abdomen/Pelvis: Solid Abdominal Organs: Homogenous hepatic enhancement. Tinylow-attenuation focus along the falciform ligament remains unchanged(series 4 image 48). No new suspicious liver lesion. Postcholecystectomywith mild ectasia of the extra hepatic bile duct. Unremarkable spleen,pancreas. Unchanged left adrenal gland myelolipoma. Indeterminate rightadrenal gland nodule measures 2.2 cm, similar to prior. Symmetric renalenhancement. 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 Adjacentenhancing nodule measuring 10 mm is also unchanged (series 3, image 89).No hydronephrosis. GI Tract/Mesentery/Peritoneum: Stomach is within normal limits. Largediverticulum from the descending segment of the duodenum. The large andsmall bowel appear normal in caliber. Ventral abdominal wall herniacontaining nondilated small bowel and portion of the sigmoid colon. Noevidence of inflammatory change or obstruction. No suspiciousperitoneal/mesenteric findings. Pelvic Viscera: Appropriately distended urinary bladder with resolution ofpreviously noted wall thickening. Interval resolution of previously notedheterogeneous mass centered within the vagina cuff. No new pelvicmasses. Lymph Nodes/Vasculature: No lymphadenopathy by CT size criteria. Theaortoiliac vasculature is patent and normal in caliber. Free Fluid: No free fluid in the abdomen or pelvis. Musculoskeletal and Body Wall: No aggressive or suspicious findings. Grade1 anterolisthesis of L4 on L5. Multilevel degenerative changes of thespine. IMPRESSION: Chest: No evidence of metastatic disease within the chest. Abdomen/Pelvis: Interval resolution of previously noted vaginal cuff mass. No new pelvicmasses. No adenopathy. Unchanged right adrenal gland indeterminate nodule. CRITICAL RESULT: No. COMMUNICATION: Per this written report. Dictated by Sung Schneider MD on 08/10/2022 12:51 PM Signed by Sung Schneider MD on 08/10/2022 1:08 PM us Penny Dodson MD IMG CT PROCEDURES Fin al Result * CT Chest w IV Contrast (08/10/2022 11:08 AM EST) Anatomical Region Laterality Modality Chest Computed Tomogra phy Impressions 08/10/2022 1:08 PM EST Chest: No evidence of metastatic disease within the chest. Abdomen/Pelvis: Interval resolution of previously noted vaginal cuff mass. No new pelvic masses. No adenopathy. Unchanged right adrenal gland indeterminate nodule. CRITICAL RESULT: ?? No. COMMUNICATION: Per this written report. Dictated by Sung Schneider MD on 08/10/2022 12:51 PM Signed by Sung Schneider MD on 08/10/2022 1:08 PM Narrative 08/10/2022 1:08 PM EST Exam/Procedure: CT CHEST W IV CONTRAST ordered by PENYN DODSON, [id number] CLINICAL INDICATION: Ovarian cancer, assess treatment response [...] vessels.. Coronary artery and aortic valve calcification. Right chest wall port with tip at the superior cavoatrial junction. Lungs and Pleura: Centrilobular result patent. Bibasilar atelectasis. No suspicious lung nodules to suggest metastatic disease. Unchanged right upper lobe 2 mm nodule (series 4 image 68). No pleural effusions or suspicious thickening. Musculoskeletal and Body Wall: No clearly aggressive bone lesions. Multilevel degenerative changes of the spine. Unchanged asymmetric left breast soft tissue with multiple adjacent surgical clips. No significant axillary adenopathy. Abdomen/Pelvis: Solid Abdominal Organs: Homogenous [...] of the sigmoid colon. No evidence of inflammatory change or obstruction. No suspicious peritoneal/mesenteric findings. [...] L5. Multilevel degenerative changes of the spine. Procedure Note Sung Schneider MD - 08/10/2022 Exam/Procedure: CT CHEST W IV CONTRAST ordered by PENNY BANERJEE [place],[id number] CLINICAL INDICATION: Ovarian cancer, assess treatment response TECHNIQUE: Multiple axial CT images were obtained from thoracic inlet through pubicsymphysis following administration of IV contrast, Omnipaque 350, 100 mL.Reformatted images of the abdomen and pelvis in the coronal and sagittalplanes were generated from the axial data set to facilitate diagnosticaccuracy. Total DLP (Dose-Length Product): 536.25 mGy.cm. Please note: The reportedvalue represents the [...] is normal in size. Thoracic great vessels arepatent with proximal calcification of the aortic arch branching vessels..Coronary artery and aortic valve calcification. Right chest wall port withtip at the superior cavoatrial junction. Lungs and Pleura: Centrilobular result patent. Bibasilar atelectasis. Nosuspicious lung nodules to suggest metastatic disease. Unchanged rightupper lobe 2 mm nodule (series 4 image 68). No pleural effusions orsuspicious thickening. Musculoskeletal and Body Wall: No clearly aggressive bone lesions.Multilevel degenerative changes of the spine. Unchanged asymmetric leftbreast soft tissue with multiple adjacent surgical clips. No significantaxillary adenopathy. Abdomen/Pelvis: Solid Abdominal Organs: Homogenous hepatic enhancement. Tinylow-attenuation focus along the falciform ligament remains unchanged(series 4 image 48). No new suspicious liver lesion. Postcholecystectomywith mild ectasia of the extra hepatic bile duct. Unremarkable spleen,pancreas. Unchanged left adrenal gland myelolipoma. Indeterminate rightadrenal gland nodule measures 2.2 cm, similar to prior. Symmetric renalenhancement. 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 Adjacentenhancing nodule measuring 10 mm is also unchanged (series 3, image 89).No hydronephrosis. GI Tract/Mesentery/Peritoneum: Stomach is within normal limits. Largediverticulum from the descending segment of the duodenum. The large andsmall bowel appear normal in caliber. Ventral abdominal wall herniacontaining nondilated small bowel and portion of the sigmoid colon. Noevidence of inflammatory change or obstruction. No suspiciousperitoneal/mesenteric findings. Pelvic Viscera: Appropriately distended urinary bladder with resolution ofpreviously noted wall thickening. Interval resolution of previously notedheterogeneous mass centered within the vagina cuff. No new pelvicmasses. Lymph Nodes/Vasculature: No lymphadenopathy by CT size criteria. Theaortoiliac vasculature is patent and normal in caliber. Free Fluid: No free fluid in the abdomen or pelvis. Musculoskeletal and Body Wall: No aggressive or suspicious findings. Grade1 anterolisthesis of L4 on L5. Multilevel degenerative changes of thespine. IMPRESSION: Chest: No evidence of metastatic disease within the chest. Abdomen/Pelvis: Interval resolution of previously noted vaginal cuff mass. No new pelvicmasses. No adenopathy. Unchanged right adrenal gland indeterminate nodule. CRITICAL RESULT: No. COMMUNICATION: Per this written report. Dictated by Sung Schneider MD on 08/10/2022 12:51 PM Signed by Sung Schneider MD on 08/10/2022 1:08 PM Penny Dodson MD IMG CT PROCEDURES Fin al Result documented in this encounter Visit Diagnoses Diagnosis Carcinoma of fallopian tube, unspecified laterality (CMS/HCC) documented in this encounter Administered Medications Inactive Administered Medications - up to 3 most recent administrations Medication Order MAR Action Action Date Dose Rate Site iohexol (OMNIPaque) 350 MG/ML injection 100 mL 100 mL, Intravenous, Once in imaging, 1 dose, Starting on Mon08/10/22 at 0953, Until Mon08/10/22 at 1108, Routine, Imaging Protocol Orders Given 08/10/2022 11:08 AM EST 100 mL iohexol (OMNIPaque) 9 MG/ML oral contrast 500 mL 500 mL, Oral, Once in imaging, 1 dose, Starting on Mon08/10/22 at 0953, Until 08/10/22 at 1109, Routine, Imaging Protocol Orders Given 08/10/2022 11:09 AM EST 500 mL documented in this encounter Additional Health Concerns Assessment Noted Time A fall risk assessment has been complete d for the patient 08/10/2022 2:54 PM EST documented as of this encounter Care Teams Pattern Chain Builder Relationship Specialty Start Date End Date Flaquita Dorsey DO [address] [place] [address] PCP - General 12/14/21 Aliyah Valencia MD [address] [place] [address] Referring Physician 03/10/21 documented as of this encounter
--- OUTSIDE RECORDS SUMMARY | 2024-07-10 11:59 | XMS_ITS | Encounter Summary ---
Author Organization Healthcare Address [address] [place] [address] Care Team Providers Care Fire Protection Specialist Name Role Phone Aliyah Valencia MD Unavailable [phone] Flaquita Dorsey DO Primary Care Provider + [phone] Conrado Iqbal MD Unavailable Encounter Details Date Type Department Care Team (Latest Contact Info) Description 08/19/2022 Travel Social History Tobacco Use Types Packs/Day [...] [address] [place] [address] Penelope Carmona MD [address] [facility] [address] [place] [address] 08/05/2024 9:30 AM EST Appointment [facility] 1 [address] [place] [address] 02/26/2025 9:30 AM EDT Appointment [facility] [address] Building [address] [place] [address] 02/26/2025 10:30 AM EDT Office Visit [facility] [address] [facility], 2nd [place] [address] Berenice Resendez D, COMPLAINT ANALYST [address] [facility] [address] [place] [address] documented as of this encounter Visit Diagnoses Not on filedocumented in this encounter Additional Health Concerns Assessment Noted Time A fall risk assessment has been complete d for the patient 08/19/2022 7:58 AM EST A Body Mass Index follow-up plan has been documented for the patient 08/19/2022 9:30 AM EST documented as of this encounter Care Teams Fire Protection Specialist Relationship Specialty Start Date End Date Flaquita Dorsey DO [address] [place] [address] PCP - General 12/14/21 Aliyah Valencia MD [address] [place] [address] Referring Physician 03/10/21 Conrado Iqbal MD [address] [place] [address] Service Attending Cardiology 08/19/22 documented as of this encounter
--- OUTSIDE RECORDS SUMMARY | 2024-07-10 11:59 | XMS_ITS | Encounter Summary ---
Author Organization Healthcare Address [address] [id number] Care Team Providers Care Medical Driver Name Role Phone Aliyah Valencia MD Unavailable [phone] Flauqita Dorsey DO Primary Care Provider [phone] Encounter Details Date Type Department Care Team (Late Contact Info) Description 07/21/2022 Telephone [facility] [address] [place] [address] Pascale Mcintyre, RN [facility] Social History Tobacco Use [...] Gynecology [address] [place] [address] Penelope Carmona MD [address] [place] [address] 08/05/2024 9:30 AM EST Appointment [facility] 1 [address] [place] [address] 02/26/2025 9:30 AM EDT Appointment [facility] [address] [facility] 800 [place] [address] 02/26/2025 10:30 AM EDT Office Visit [facility] [address] [facility], 2nd [place] [address] Berenice Resendez, VALVE PIPE IRRIGATOR 800 [facility] [address]elle [address] [address] documented as of this encounter Visit Diagnoses Not on filedocumented in this encounter Additional Health Concerns Assessment Noted Time A fall risk assessment has been complete d for the patient 07/20/2022 1:31 PM EST documented as of this encounter Care Teams Medical Driver Relationship Specialty Start Date End Date Flaquita Dorsey DO [address] [place] [address] PCP - General 12/14/21 Aliyah Valencia MD [address] [place] [place] [address] Referring Physician 03/10/21 documented as of this encounter
--- OUTSIDE RECORDS SUMMARY | 2024-07-10 11:59 | XMS_ITS | Encounter Summary ---
Author Organization Healthcare Address [address] [place] [address] Care Team Providers Care Appraiser Real Estate Name Role Phone Aliyah Valencia MD Unavailable [phone] Flaquita Dorsey DO Primary Care Provider [phone] Encounter Details Date Type Department Care Team (Late st Contact Info) Description 08/05/2022 Telephone [facility] [address] [place] [address] Georgette Acevedo RN [facility] Social History Tobacco Use Types [...] Telephone Encounter - Georgette Acevedo RN - 08/05/2022 2:31 PM EST Patient is to receive #6 Avastin on 08/31/22. Can we get more orders placed for further cycles please? Thanks in advance. Georgette S Logdon, RN documented in this encounter Plan of Treatment Upcoming Encounters Date Type Department Care Team (Late st Contact Info) Description 08/05/2024 8:00 AM EST Office Visit [facility] [address] [facility] [address] [place] [address] Penelope Carmona MD [address] [facility] [address] [facility] [address] [place] [address] 08/05/2024 9:30 AM EST Appointment [facility] 1 [address] [place] [address] 02/26/2025 9:30 AM EDT Appointment [facility] [address] [facility] [address] [place] [address] 02/26/2025 10:30 AM EDT Office Visit [facility] [address] [facility], 2nd [place] [address] Berenice Resendez D, CRUSHER SCREEN REPAIRER [address] [facility] [address] [facility] [address] [place] [address] documented as of this encounter Visit Diagnoses Not on filedocumented in this encounter Additional Health Concerns Assessment Noted Time A fall risk assessment has been complete d for the patient 08/05/2022 2:43 PM EST documented as of this encounter Care Teams Appraiser Real Estate Relationship Specialty Start Date End Date Flaquita Dorsey DO [address] [place] [address] PCP - General 12/14/21 Aliyah Valencia MD [address] [place] [address] Referring Physician 03/10/21 documented as of this encounter
--- OUTSIDE RECORDS SUMMARY | 2024-07-10 11:59 | XMS_ITS | Encounter Summary ---
Author Organization Healthcare Address [address] [place] [address] Care Team Providers Care Dairy Husbandry Teacher Name Role Phone Aliyah Valencia MD Unavailable [phone] Flaquita Dorsey DO Primary Care Provider [phone] Encounter Details Date Type Department Care Team (Latest Contact Info) Description 08/05/2022 Travel Social History Tobacco Use Types Packs/Day [...] suspected to have Coronavirus/COVID-19? No / Unsure 08/05/2022 2:27 PM EST documented as of this encounter Plan of Treatment Upcoming Encounters Date Type Department Care Team (Late st Contact Info) Description 08/05/2024 8:00 AM EST Office Visit [facility] [address] [place] [phone] Penelope Carmona MD [address] [place] [address] 08/05/2024 9:30 AM EST Appointment [facility] [address] [place] [address] 02/26/2025 9:30 AM EDT Appointment [facility] [address] Building [address] [place] [address] 02/26/2025 10:30 AM EDT Office Visit [facility] [address] [facility], 2nd [place] [address] Berenice Resendez D, MANAGER BIOLOGICS [address] [facility] [address] [place] [address] documented as of this encounter Visit Diagnoses Not on filedocumented in this encounter Additional Health Concerns Assessment Noted Time A fall risk assessment has been complete d for the patient 08/05/2022 2:43 PM EST documented as of this encounter Care Teams Dairy Husbandry Teacher Relationship Specialty Start Date End Date Flaquita Dorsey DO [address] [place], [place] [id number] PCP - General 12/14/21 Aliyah Valencia MD [address] [place] [address] Referring Physician 03/10/21 documented as of this encounter
--- OUTSIDE RECORDS SUMMARY | 2024-07-10 11:59 | XMS_ITS | Encounter Summary ---
Author Organization [facility] Address [address] [place], [place] [id number] Care Team Providers Care Ammonium Sulfate Operator Name Role Phone Aliyah Valencia MD Unavailable [phone] Flaquita Dorsey DO Primary Care Provider [phone] Reason for Visit * Episode Based Medications (Routine) - Closed Specialty Diagnoses / Procedures Referred By Contac t Referred To Contact Diagnoses Carcinoma of fallopian tube, unspecified laterality (CMS/HCC) Procedures Bevacizumab Every 21 Days Penelope Carmona MD [address] [place] [address] Phone: tel: fax: [facility] Infusion Clinic [address] [place] [address] Phone: tel: Referral ID Status Reason Start Date Expiration Date Visits Re quested Visits Authorized [id number] Closed 04/11/2022 10/11/2023 1 14 Encounter Details Date Type Department Care Team (Latest Contact Info) Description 08/10/2022 2:53 PM EST - 08/10/2022 11:59 PM EST Hospital Encounter [facility] Infusion Clinic [address] [place] [address] Carcinoma of fallopian tube, unspecified [...] Sign Reading Time Taken Comments Blood Pressure 151/79 08/10/2022 5:01 PM EST Pulse 62 08/10/2022 5:01 PM EST Temperature 36.6 ??C (97.9 ??F) 08/10/2022 2:54 PM ES T Respiratory Rate 18 08/10/2022 2:54 PM EST Oxygen Saturation 97% 08/10/2022 2:54 PM EST Inhaled Oxygen Concentration - - Weight 80.1 kg (176 lb 9.4 oz) 08/10/2022 2:54 P M EST Height 161.3 cm (5' 3.5 ) 08/10/2022 2:54 PM EST Body Mass Index 30.79 08/10/2022 2:54 PM EST documented in this encounter Medications at Time of Discharge aspirin 81 MG chewable tablet Chew 1 tablet (81 mg) 1 (one) time each day. ergocalciferol (Vitamin D-2) 1.25 MG (71052 UT) capsule Take 1 capsule (50,000 Units) [...] 8:00 AM EST Office Visit [facility] Gynecology [address] [facility] [address] [place] [phone] Penelope Carmona MD 800 [facility] [address] [place] [address] 08/05/2024 9:30 AM EST Appointment [facility] Infusion Clinic [address] [place] [address] 02/26/2025 9:30 AM EDT Appointment [facility] Breast Care Center Comprehensive [facility] [address] [facility] [address] [place] [address] 02/26/2025 10:30 AM EDT Office Visit [facility] Breast Care Center [address] [facility], 2nd [place] [address] Berenice Resendez, HAND CANDY MOLDER [address] [facility] [address] [place] [address] documented as of this encounter Visit Diagnoses [...] Specific administration requirements refer to [id number]., On Mon08/10/22 at 1600, For 1 dose, NS 100 mLIndications:Carcinoma of fallopian tube, unspecified laterality (CMS/HCC) New Bag 08/10/2022 4:32 PM EST 1,300 mg 364 mL/hr documented in this encounter Additional Health Concerns Assessment Noted Time A fall risk assessment has been complete d for the patient 08/10/2022 2:54 PM EST documented as of this encounter Care Teams Ammonium Sulfate Operator Relationship Specialty Start Date End Date Flaquita Dorsey DO [address] [place] [address] PCP - General 12/14/21 Aliyah Valencia MD [address] [place] [address] Referring Physician 03/10/21 documented as of this encounter
--- OUTSIDE RECORDS SUMMARY | 2024-07-10 11:59 | XMS_ITS | Encounter Summary ---
Author Organization Healthcare Address [address] [place] [address] Care Team Providers Care Painter Chassis Name Role Phone Aliyah Valencia MD Unavailable [phone] Flaquita Dorsey DO Primary Care Provider [phone] Encounter Details Date Type Department Care Team (Latest Contact Info) Description 08/10/2022 Travel Social History Tobacco Use Types Packs/Day [...] [address] [place] [phone] Penelope Carmona MD [address] [place] [address] 08/05/2024 9:30 AM EST Appointment [facility] [address] [place] [address] 02/26/2025 9:30 AM EDT Appointment [facility] [address] Building [address] [place] [address] 02/26/2025 10:30 AM EDT Office Visit [facility] [address] [facility], 2nd [place] [address] Berenice Resendez D, BULK TRUCK DRIVER 800 [facility] [address] [place] [address] documented as of this encounter Visit Diagnoses Not on filedocumented in this encounter Additional Health Concerns Assessment Noted Time A fall risk assessment has been complete d for the patient 08/10/2022 2:54 PM EST documented as of this encounter Care Teams Painter Chassis Relationship Specialty Start Date End Date Flaquita Dorsey DO [address] [place], [place] [phone] PCP - General 12/14/21 Aliyah Valencia MD [address] [place] [place] [address] Referring Physician 03/10/21 documented as of this encounter
--- OUTSIDE RECORDS SUMMARY | 2024-07-10 11:59 | XMS_ITS | Encounter Summary ---
Author Organization Healthcare Address [address] [place] [address] Care Team Providers Care Metalizer Name Role Phone Aliyah Valencia MD Unavailable [phone] Flaquita Dorsey DO Primary Care Provider [phone] Encounter Details Date Type Department Care Team ([facility] st Contact Info) Description 08/16/2022 Telephone [facility] Head, Neck & Respiratory [address] [facility], 2nd [place] [address] Tammy Hayes, RN [facility] Social History Tobacco Use Types Packs/Day Years [...] Miscellaneous Notes * Telephone Encounter - Tammy Hayes, RN - 08/16/2022 2:06 PM EST CCT[facility] pre op instructions reviewed with patient. Pt stated [facility] with chest pain. Pt states she had cp while in [facility]. She took 1 NTG SL and went to ED. ED records obtained and given to Dr. Herndon for review. Advised patient to continue with CCTA tomorrow . Moved follow up appointment to 08/19. Pt is aware. documented in this encounter Plan of Treatment Upcoming Encounters Date Type Department Care Team (Late st Contact Info) Description 08/05/2024 8:00 AM EST Office Visit [facility] [address] [facility] [address] [place] [phone] Penelope Carmona MD [address] [facility] [address] [facility] [address] [place] [address] 08/05/2024 9:30 AM EST Appointment [facility] [address] [place] [address] 02/26/2025 9:30 AM EDT Appointment [facility] Breast Care Center [facility] [address] [facility] [address] [place] [address] 02/26/2025 10:30 AM EDT Office Visit [facility] Breast Care Center [address] [facility], 2nd [place] [address] Berenice Resendez, ELDER COUNSELOR [address] [facility] [address] [facility] [address] [place] [address] documented as of this encounter Visit Diagnoses Not on filedocumented in this encounter Additional Health Concerns Assessment Noted Time A fall risk assessment has been complete d for the patient 08/10/2022 2:54 PM EST documented as of this encounter Care Teams Metalizer Relationship Specialty Start Date End Date Flaquita Dorsey DO [address] [place] [address] PCP - General 12/14/21 Aliyah Valencia MD [address] [place] [address] Referring Physician 03/10/21 documented as of this encounter
--- OUTSIDE RECORDS SUMMARY | 2024-07-10 11:59 | XMS_ITS | Encounter Summary ---
Author Organization [facility] Address [address] [id number] Care Team Providers Care Feed Research Aide Name Role Phone Aliyah Valencia MD Unavailable [phone] Flaquita Dorsey DO Primary Care Provider [phone] Conrado Iqbal MD Unavailable Reason for Visit * Reason Comments Follow-up Encounter Details Date Type Department Care Team ([facility] st Contact Info) Description 08/19/2022 8:00 AM EST Office Visit [facility] Res[facility] [address]nd [place] [address] Conrado Iqbal MD [address] [place] [address] Obesity (BMI 30-39.9) (Primary Dx); Malignant neoplasm of left breast in female, estrogen receptor positive, unspecified site of breast (CMS/HCC); Carcinoma of fallopian tube, unspecified laterality (CMS/HCC); Chest pain, unspecified type; S/P cardiac cath; 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 (CMS/HCC); Aortic stenosis, moderate Social History Tobacco Use Types Packs/Day Years [...] Sign Reading Time Taken Comments Blood Pressure 107/73 08/19/2022 7:59 AM EST Pulse 67 08/19/2022 7:59 AM EST Temperature - - Respiratory Rate 17 08/19/2022 7:59 AM EST Oxygen Saturation 98% 08/19/2022 7:59 AM EST Inhaled Oxygen Concentration - - Weight 80.7 kg (177 lb 14.6 oz) 08/19/2022 7:59 AM EST Height 160 cm (5' 3 ) 08/19/2022 7:59 AM EST Body Mass Index 31.52 08/19/2022 7:59 AM EST documented in this encounter Miscellaneous Notes * Progress Notes - Yoel Herndon MD - 08/19/2022 8:00 AM EST Images from the original note were not included. Cardio-Oncology Clinic CC: Chief Complaint Patient presents with Follow-up HPI: Ms.Donna Laura John is a 76 y.o. female w PMH of left sided ER+, SD+, and HER2-, HTN, HLD, obesity seen today in the Cardio-Oncology Clinic @ [facility] in consultation for chest discomfort at the request of Dr. Penelope Dodson MD. The patient says that her chest discomfort started the day before Thanksgi while doing some prescription pickle cutter. She says that her check engine light came on and she drove to the traffic signal mechanic for a check up. While there, the patient says that she started to experience chest discomfort that is across her chest and described it as a tightness . The sensation did not get much worse, but also did not get much better during the course of her getting her car fixed. The patient says that at that point, she drove to the pharmacy for medication pickle cutter, however, while there, her chest pain worsened and she started to get some nausea without vomiting.She ended up being evaluated by pharmacists there at the pharmacy and EMS was called to take the patient to an outside hospital for evaluation. While in the outside ED, her troponins were undetectable x3, ECG there did not demonstrate acute ischemic changes. Further, the patient says that her chestpain essentially resolved by the time EMS arrived to pick her up to go to the ED. She has had two occurrence of chest discomfort since the initial ED visit, she was sitting watching TV while it occurred. She ended up taking a sublingual nitroglycerin that resolved the chest pain. The patient was without chest pain for some time, until recently, when she started to have chest discomfort on 08/14/2022. At the time, the patient was shopping at a grocery store and near the check out counter. She says today that she needed to sit down at the grocery store to recover, and her chest discomfort and gen eral feeling of unwell to go away. Review of symptoms 14 Point ROS reviewed and is otherwise negative except as per HPI and what is noted above. 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/2019 Malignant neoplasm of unspecified fallopian tube Cervical cancer ([facility]) 03/15/2018 Malignant neoplasm of cervix uteri, unspecified Conversions - Other No illicit drug use Essential (primary) hypertension Hypertension Hypothyroidism, unspecified Hypothyroidism Malignant neoplasm of unspecified [...] without thyrotoxic crisis or storm Graves' disease Surgical History: Past Surgical History: Procedure Laterality Date BREAST LUMPECTOMY N/A Lumpectomy of left breast from [facility] CHOLECYSTECTOMY N/A Cholecystectomy from [facility] EYE SURGERY N/A Eye surgery from [facility] HEMORRHOID SURGERY N/A Hemorrhoidectomy from [facility] HYSTERECTOMY N/A Hysterectomy from [facility] OTHER SURGICAL HISTORY N/A Surgical removal of lesion of finger from [facility] PARTIAL HYSTERECTOMY N/A Partial hysterectomy from [facility] ROTATOR CUFF REPAIR N/A Repair of rotator cuff of right shoulder from [facility] Medications: Current Outpatient Medications Medication Sig Dispense Refill aspirin 81 MG chewable tablet Chew 81 mg 1 (one) time each day. biotin 1000 MCG tablet Take 1,000 mcg by mouth 1 (one) time each day. cyclophosphamide (Cytoxan) 50 MG capsule capsule Take 1 capsule (50 mg total) by mouth 1 (one) timeeach day. 30 capsule 2 ergocalciferol (Vitamin D-2) 1.25 MG (95654 UT) capsule Take 50,000 Units by mouth 1 (one) time perweek. Flaxseed, Linseed, (Flaxseed Oil) 1000 MG capsule Take by mouth. fluocinolone (Synalar) 0.01 % external solution fluocinolone 0.01 % topical solution APPLY TO THE AFFECTED AREA(S) ON SCALP BY TOPICAL ROUTE 2 TIMES PER DAY X 2 WEEKS PRN FLARES furosemide (Lasix) 20 MG tablet Take 20 mg by mouth 1 (one) time each day. gabapentin (Neurontin) 400 MG capsule Take 1 capsule (400 mg total) by mouth 3 (three) times a day.90 capsule 2 ketoconazole (NIZOral) 2 % shampoo ketoconazole 2 % shampoo APPLY TO THE AFFECTED AREA(S), LATHER, LEAVE IN PLACE FOR 5 MINUTES, AND THEN RINSE OFF WITH WATER BY TOPICAL ROUTE QOD levothyroxine (Synthroid, Levoxyl) 75 MCG tablet Take 75 mcg by mouth 1 (one) time each day before breakfast. lisinopril 5 MG tablet Take 5 mg by mouth 1 (one) time each day. nitroglycerin (Nitrostat) 0.4 MG SL tablet potassium chloride ER (Micro-K) 10 MEQ ER capsule Take 10 mEq by mouth 2 (two) times a day. prochlorperazine (Compazine) 10 MG tablet Take 1 tablet (10 mg total) by mouth every 6 (six) hours if needed for nausea or vomiting. 30 tablet 5 simvastatin (Zocor) 40 MG tablet Take 40 mg by mouth every night. omeprazole (PriLOSEC) [address] capsule Take 1 capsule (20 mg total) by mouth 1 (one) time each day.Do not crush or chew. 30 capsule 11 No current facility-administered medications for this visit. Family History: family history includes Breast cancer in her cousin and cousin; Cardiac disorder in her brother, father, and mother; Colon cancer in an other family member; Diabetes in her brother and sister; Hypertension in her brother, sister, and another family member; Prostate cancer in her father. Social History: reports that she quit smoking about 25 years ago. Her smoking use included cigarettes. She has a 11.00 pack-year smoking history. She has quit using smokeless tobacco. She reports that she does not currently use alcohol. She reports that she does not use drugs. Physical Exam: Visit Vitals BP 107/73 Pulse 67 Ht 1.6 m (5' 3 ) Wt 80.7 kg (177 lb 14.6 oz) SpO2 98% BMI 31.52 kg/m?? Constitutional: Patient appears well; no acute distress; speaks without dyspnea Skin: No concerning lesions identified HENT: Anicteric JVP: no JVD Carotid: no bruit Cardiovascular: S1S2 heard, regular rate and rhythm; no murmur or gallop appreciated Pulmonary: Clear to auscultation bilaterally Abdominal: Soft; no tenderness; no hepatomegaly; positive bowel sounds Extremities: Warm and well perfused; no edema Neurological: Alert and oriented X 3; no focal deficits appreciated Psychiatric: Normal mood and behavior Cardiac Testing: ECG: normal sinus rhythm, low voltage, borderline ECG Imaging: Echo, Adult Transthoracic Complete Result Date: 08/05/2022 Left Ventricle: The left ventricle is normal size. There is normal left ventricular myocardial thickness and mass. The left ventricular systolic function is normal. The LVEF as measured by biplane volume is 53%. The global longitudinal strain is normal (<-18%). The diastolic function is normal. Aortic Valve: The aortic valve appears to be trileaflet. The cusp(s) are calcified. There is no valvular regurgitation. There is mild to moderate aortic stenosis. The peak gradient is 29 mmHg. The mean gradient is 17 mmHg. The estimated aortic valve area by the continuity equation is 1.2 cm2. Compared to the most recently available prior study, and allowing for differences in image quality and tech nique, there is no significant interval change noted. Labs: Lab Results Component Value Date HGB 13.0 08/10/2022 HCT 39.9 08/10/2022 PLT 216 08/10/2022 ALT 10 08/10/2022 AST 15 08/10/2022 NA 139 08/10/2022 K 3.9 08/10/2022 CREATININE 0.96 08/10/2022 BUN 19 08/10/2022 CO2 27 08/10/2022 Lab Results Component Value Date GLUCOSE 118 (H) 08/10/2022 CALCIUM 9.7 08/10/2022 NA 139 08/10/2022 K 3.9 08/10/2022 CO2 27 08/10/2022 CL 101 08/10/2022 BUN 19 08/10/2022 CREATININE 0.96 08/10/2022 Lab Results Component Value Date WBC 4.56 08/10/2022 HGB 13.0 08/10/2022 HCT 39.9 08/10/2022 MCV 99 (H) 08/10/2022 PLT 216 08/10/2022 Risk Stratification: The ASCVD Risk score (José Miguel DK, et al., 2019) failed to calculate for the following reasons: Cannot find a previous HDL lab Cannot find a previous total cholesterol lab Impression: Daniela was seen today for follow-up. 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 Do not crush or chew. # Chest discomfort # Coronary calcifications # HTN The patient is here for evaluation of recent chest discomfort that occurred while driving close to a month ago with recurrence requiring nitroglycerin therapy for termination. She is doing well otherwise, the patient's symptoms have typical chest pain syndrome characteristics, which is concerning due to the patient having a strong family history, age, and related comorbid conditions. We think that the best and highest yield test is likely a CCTA at this stage. We will schedule the patient for aCCTA for further evaluation of her chest pain syndrome. We are aware of some case reports of bevacizumab causing vasospasm (more likely a 5-FU effect). The patient may benefit from having a long acting nitrate (Imdur) onboard if there is a return of her symptoms with chemotherapy infusions. Her CCTA is not concerning at all with only minimal stenosis of the LAD, LMCA and no stenosis in the RCA and left circumflex. I informed her that her chest pain is likely from something else and that furtherwork up would not be beneficial. We will treat her chest discomfort with PPI for now to see if it is GI related. # Aortic stenosis, moderate Asymptomatic but has a history of known moderate from last TTE in 2019. We repeated and it showed mild to moderate and normal LVEF. Repeat echocardiogram in 1-2 years unless symptoms were to come on. Plan: Orders Placed This Encounter Procedures Lipid panel Standing Status: Future Standing Expiration Date: 02/17/2024 Order Specific Question: Release to patient in [facility] [place] Answer: Immediate - PPI today for GERD - Repeat TTE in 1-2 years for moderate unless symptoms come on Follow up with Dr. Iqbal in 6 months. A total time of 35 minutes was spent by myself addressing the current illness, reviewing records (prior imaging, lab work, etc), and formulating a plan. The patient is agreeable to the plan and all pertinent questions were answered. Yoel Herndon MD Cosigned by Conrado Iqbal MD at 09/12/2022 3:50 PM EST Associated attestation - Conrado Iqbal MD - 09/12/2022 3:50 PM EST I saw and evaluated the patient with the resident/fellow. I discussed the case with the resident/fellow and agree with the findings and plan as documented. documented in this encounter Plan of Treatment Upcoming Encounters Date Type Department Care Team (Late st Contact Info) Description 08/05/2024 8:00 AM EST Office Visit [facility] [address] [place] [address] Penelope Carmona MD [address] [place] [address] 08/05/2024 9:30 AM EST Appointment [facility] [address] [place] [address] 02/26/2025 9:30 AM EDT Appointment [facility] [address] [place] [address] 02/26/2025 10:30 AM EDT Office Visit [facility] [address] [place] [address] Berenice Resendez D, LOAD TEST MECHANIC [address] [place] [address] documented as of this encounter Visit Diagnoses Diagnosis Obesity (BMI 30-39.9)- Primary Malignant neoplasm of left breast in female, estrogen receptor positive, unspecified site of breast (CMS/HCC) Carcinoma of fallopian tube, unspecified laterality (CMS/HCC) Chest pain, unspecified type S/P cardiac cath Other postprocedural status 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 (CMS/HCC) Aortic stenosis, moderate documented in this encounter Additional Health Concerns Assessment Noted Time A fall risk assessment has been complete d for the patient 08/19/2022 7:58 AM EST A Body Mass Index follow-up plan has been documented for the patient 08/19/2022 9:30 AM EST documented as of this encounter Care Teams Feed Research Aide Relationship Specialty Start Date End Date Flaquita Dorsey DO [address] [place] [address] PCP - General 12/14/21 Alyiah Valencia MD [address] [place] [address] Referring Physician 03/10/21 Conrado Iqbal MD [address] [place] [address] Service Attending Cardiology 08/19/22 documented as of this encounter
--- OUTSIDE RECORDS SUMMARY | 2024-07-10 11:59 | XMS_ITS | Encounter Summary ---
Author Organization Healthcare Address [address] [place] [address] Care Team Providers Care Rotary Lithographic Press Operator Name Role Phone Aliyah Valencia MD Unavailable [phone] Flaquita Dorsey DO Primary Care Provider [phone] Encounter Details Date Type Department Care Team (Latest Contact Info) Description 07/20/2022 Travel Social History Tobacco Use Types Packs/Day [...] AM EST Office Visit [facility] [address] [facility] [address] [place] [address] Penelope Carmona MD [address] [facility] [address] [place] [address] 08/05/2024 9:30 AM EST Appointment [facility] [address] [place] [address] 02/26/2025 9:30 AM EDT Appointment [facility] [address] [facility] [address] [place] [address] 02/26/2025 10:30 AM EDT Office Visit [facility] [place] [address] [facility]nd [place] [address] Berenice Resendez, CLINICAL GENETICS LABORATORY CHIEF [address] [facility] [address] [facility] [address] [place] [address] documented as of this encounter Visit Diagnoses Not on filedocumented in this encounter Additional Health Concerns Assessment Noted Time A fall risk assessment has been complete d for the patient 07/20/2022 1:31 PM EST documented as of this encounter Care Teams Rotary Lithographic Press Operator Relationship Specialty Start Date End Date Flaquita Dorsey DO [address] [place] [address] PCP - General 12/14/21 Aliyah Valencia MD [address] [place] [place] [address] Referring Physician 03/10/21 documented as of this encounter
--- OUTSIDE RECORDS SUMMARY | 2024-07-10 12:00 | XMS_ITS | Encounter Summary ---
Author Organization Healthcare Address [address] [place] [address] Care Team Providers Care Hydraulic Lift Driver Name Role Phone Aliyah Valencia MD Unavailable [phone] Flaquita Dorsey DO Primary Care Provider [phone] Encounter Details Date Type Department Care Team (Late st Contact Info) Description 04/25/2022 Telephone [facility] [address] [place] [address] Miriam Meyer, PharmD Social History Tobacco Use Types Packs/Day Years Used Date Smoking Tobacco: Former Smokeless Tobacco: Former Alcohol Use Standard Drinks/Week Comments Not Currently 0 (1 standard drink = 0.6 oz pur e alcohol) Comments No Sex and Gender Information Value Date Recorded Sex Assigned at Not on file Legal Sex Female 8:51 PM EDT Gender Identity Not on file Sexual Orientation Not on file COVID-19 Exposure Response Date Recorded In the last 10 days, have yo u been in contact with someone who was confirmed or suspected to have Coronavirus/COVID-19? No / Unsure 04/18/2022 12:56 PM EDT documented as of this encounter Miscellaneous Notes * Telephone Encounter - Miriam Meyer, PharmD - 04/25/2022 9:10 AM EDT Clinical Initial Reassessment The patient was contacted approximately 1 week after initiation of therapy. Patient initiated treatment of Cyclophosphamide 50mg on 04/18/22 The patient is ADHERENT to therapy. Patient reports any side effects? Yes: fatigue-having lab work reviewed for possible anemia New Labs since initiation? No-having labs done today at appointment Patient reported Quality of Life: 5/10 Therapy is appropriate for continuation. Assessment based on communication with patient after firstweek of therapy. The patient's medication list has been reviewed with the patient, is accurate and is reflected in the patient's chart. documented in this encounter Plan of Treatment Upcoming Encounters Date Type Department Care Team (Late st Contact Info) Description 08/05/2024 8:00 AM EST Office Visit [facility] [address] [facility] [address] [place] [address] Penelope Carmona MD [address] [facility] [address] [facility] [address] [place] [address] 08/05/2024 9:30 AM EST Appointment [facility] [address] 02/26/2025 9:30 AM EDT Appointment [facility] [address] [facility] [address] [place] [address] 02/26/2025 10:30 AM EDT Office Visit [facility] Center [address] [facility] [place] [address] Berenice Resendez, QUAL RESEARCH MANAGER [address] [facility] [address] [facility] [address] [place] [address] documented as of this encounter Visit Diagnoses Not on filedocumented in this encounter Additional Health Concerns Assessment Noted Time A fall risk assessment has been complete d for the patient 04/25/2022 11:58 AM EDT documented as of this encounter Care Teams Hydraulic Lift Driver Relationship Specialty Start Date End Date Flaquita Dorsey DO [address] [place] [address] PCP - General 12/14/21 lAiyah Valencia MD [address] [place] [address] Referring Physician 03/10/21 documented as of this encounter
--- OUTSIDE RECORDS SUMMARY | 2024-07-10 12:00 | XMS_ITS | Encounter Summary ---
Author Organization [facility] Address [address] [place] [id number] Care Team Providers Care Commercial Manager Name Role Phone Aliyah Valencia MD Unavailable [phone] Flaquita Dorsey DO Primary Care Provider [phone] Encounter Details Date Type Department Care Team (Late st Contact Info) Description 05/09/2022 Telephone [facility] [address] [place] [address] Miriam Meyer, PharmD Social History [...] suspected to have Coronavirus/COVID-19? No / Unsure 04/25/2022 10:59 AM EDT documented as of this encounter Miscellaneous Notes * Telephone Encounter - Miriam Meyer - 05/09/2022 9:40 AM EDT [facility] Specialty Medication Follow Up Care Plan Daniela John is a 76 y.o. 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 Chart Review Calcium, Morphine, and Sulfacetamide Current Outpatient Medications Medication Instructions anastrozole (ARIMIDEX) 1 mg, Daily aspirin 81 mg, Oral, Daily biotin 1,000 mcg, Oral, Daily cyclophosphamide (CYTOXAN) 50 mg, Oral, Daily denosumab (Prolia) 60 MG/ML injection Prolia ergocalciferol (VITAMIN D-2) 50,000 Units, Oral, Weekly famciclovir (FAMVIR) 125 mg, Daily fexofenadine (BRENDA) 180 mg, Oral, Daily Flaxseed, Linseed, (Flaxseed Oil) 1000 MG capsule Oral fluocinolone (Synalar) 0.01 % external solution fluocinolone 0.01 % topical solution APPLY TO THE AFFECTED AREA(S) ON SCALP BY TOPICAL ROUTE 2 TIMES PER DAY X 2 WEEKS PRN FLARES furosemide (LASIX) 20 mg, Oral, Daily gabapentin (NEURONTIN) 300 mg, Oral, Nightly hydrOXYzine HCl (Atarax) 25 MG tablet No [...] before breakfast lisinopril 5 mg, Oral, Daily potassium chloride ER (Micro-K) 10 MEQ ER capsule 10 mEq, Oral, 2 times daily RT prochlorperazine (COMPAZINE) 10 mg, Oral, Every 6 hours PRN senna-docusate sodium (Senokot-S) 8.6-50 MG tablet 2 tab(s) orally 2 times a day simvastatin (ZOCOR) 40 mg, Oral, Nightly triamcinolone (Kenalog) 0.025 % cream 1 application, 2 times daily Patient Active Problem List Diagnosis Malignant neoplasm of left breast in female, estrogen receptor positive (CMS/HCC) Cervical cancer (CMS/HCC) Carcinoma of fallopian tube (CMS/HCC) Neuropathy Obesity (BMI 30-39.9) Immunization History Administered Date(s) Administered Influenza, Unspecified 04/29/2020 Influenza, high-dose, quadrivalent 04/03/2018, 05/30/2019 Influenza, injectable, quadrivalent 09/08/2015, 06/04/2021 Influenza, injectable, quadrivalent, preservative free 08/12/2014 Influenza, trivalent, adjuvanted 05/26/2017 Moderna COVID-19 Vaccine (Reinsurance Claims Analyst) 12+ 05/05/2021 Pfizer-BioNTech COVID-19 Vaccine (Purple Cap) 12+ 09/09/2020, 10/07/2020 Pneumococcal Conjugate PCV 13 08/12/2014 Pneumococcal Polysaccharide PPV23 09/08/2015 Selected lab results: Lab Results Component Value Date WBC 5.58 04/25/2022 HGB 12.4 04/25/2022 HCT 39.3 04/25/2022 PLT 250 04/25/2022 , Lab Results Component Value Date NA 139 04/25/2022 K 3.9 04/25/2022 CL 101 04/25/2022 CREATININE 0.77 04/25/2022 BUN 19 04/25/2022 GLUCOSE 100 (H) 04/25/2022 CALCIUM 10.0 04/25/2022 CO2 28 04/25/2022 CA125 12.20 04/25/2022 , and Lab Results Component Value Date ALBUMIN 4.1 04/25/2022 ALKPHOS 70 04/25/2022 ALT 11 04/25/2022 AST 17 04/25/2022 BILITOT 0.3 04/25/2022 Is this an infusion therapy? No Patient is treatment: Experienced: Previous therapies include Carb/taxol, lynparza Reasons for previous treatment failure progression Is patient of child bearing potential? No Disease specific labs or assessments: see above Does patient have an active infection? None Drug Review Date of initiation: 03/2022 Is the patient taking concomitant therapy for this disease? Yes: pilar Drug assessment : is this the appropriate drug/dose/route/frequency/duration? Yes Drug utilization review Drug-disease precautions: No clinically significant issues identified Drug-drug interactions: No clinically significant issues identified Drug-patient precautions: No clinically significant issues identified Education and Counseling Medication specific education provided: Ms. Jhon continues to be fatigued, having tingling in extremities that happened with IV chemo previously that is making sleep restless. Patient inquired about getting a flu shot-recommended getting one and ideal time is before next IV chemo cycle. Monitoring Questions Patient reported outcomes: Do you [...] very poor, how are you feeling overall? 5 Missed doses: Have you missed a dose [...] was patient counseled on selected side effects? Yes - Patient verbalized understanding Care Plan Questions Goal(s) of therapy: Improving or maintaining quality of life, Achieving long-term survival of the patient, Minimize treatment-related toxicity, and Prevent and/or slow progression of [...] warrants continuation of therapy and care by [facility]. Previous QOL score was 5/10 and no patient satisfaction score reported at time of assessment. This assessment data was developed from communication with the patient. Miriam Meyer 05/09/2022 9:41 AM documented in this encounter Plan of Treatment Upcoming Encounters Date Type Department Care Team (Late st Contact Info) Description 08/05/2024 8:00 AM EST Office Visit [facility] [address] [place] [address] Penelope Carmona MD [address] [place] [address] 08/05/2024 9:30 AM EST Appointment [facility] [address] [place] [address] 02/26/2025 9:30 AM EDT Appointment [facility] [address] [facility] [address] [place] [address] 02/26/2025 10:30 AM EDT Office Visit [facility] [address] [facility] [address]nd [place] [address] Berenice Resendez D, CHEMICAL ANALYST [address] [facility] [address] [place] [address] documented as of this encounter Visit Diagnoses Not on filedocumented in this encounter Additional Health Concerns Assessment Noted Time A fall risk assessment has been complete d for the patient 04/25/2022 11:58 AM EDT documented as of this encounter Care Teams Commercial Manager Relationship Specialty Start Date End Date Flaquita Dorsey DO [address] [place] [address] PCP - General 12/14/21 Aliyah Valencia MD [address] [place] [address] Referring Physician 03/10/21 documented as of this encounter
--- OUTSIDE RECORDS SUMMARY | 2024-07-10 12:00 | XMS_ITS | Encounter Summary ---
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) Social History Tobacco Use Types Packs/Day [...] AM EST Office Visit [facility] [address] [facility] [address] [place] [address] Penelope Carmona MD [address] [facility] [address] [facility] [address] [place] [address] 08/05/2024 9:30 AM EST Appointment [facility] [address] [place] [address] 02/26/2025 9:30 AM EDT Appointment [facility] [address] [facility] [address] [place] [address] 02/26/2025 10:30 AM EDT Office Visit [facility] [address] [facility]nd [place] [address] Berenice Resendez, C APPLICATION DEVELOPER [address] [facility] [address] [facility] [address] [place] [address] documented as of this encounter Procedures Procedure Name Priority Date/Time Associated Diagnosis Comments AP MISCELLANEOUS LAB TEST (SO) Routine 05/04/2022 12:00 AM EDT 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 Tissue 05/04/2022 05/04/2022 2:1 7 PM EDT us Penelope Dodson MD LAB REF LAB BLOOD AND FLUID ORD Final Result 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) documented in this encounter Additional Health Concerns Infection Onset Date Last Indicated Resolved Time Respiratory Rule-Out 05/17/2024 05/17/2024 024 11:59 PM EDT Assessment Noted Time A fall risk assessment has been complete d for the patient 04/25/2022 11:58 AM EDT documented as of this encounter Care Teams Metallurgical Engineer Relationship Specialty Start Date End Date Flaquita Dorsey DO [address] [place] [address] PCP - General 12/14/21 Aliyah Valencia MD [address] [place] [place] [address] Referring Physician 03/10/21 Conrado Iqbal MD [address] [place] [id number] Service Attending Cardiology 08/19/22 documented as of this encounter
--- OUTSIDE RECORDS SUMMARY | 2024-07-10 12:00 | XMS_ITS | Encounter Summary ---
Author Organization Healthcare Address [address] [place] [address] Care Team Providers Care Nca Certified Concierge Name Role Phone Aliyah Valencia MD Unavailable [phone] Flaquita Dorsey DO Primary Care Provider [phone] Encounter Details Date Type Department Care Team (Latest Contact Info) Description 06/27/2022 Travel Social History Tobacco Use Types Packs/Day [...] suspected to have Coronavirus/COVID-19? No / Unsure 06/27/2022 9:12 AM EST documented as of this encounter Plan of Treatment Upcoming Encounters Date Type Department Care Team (Late st Contact Info) Description 08/05/2024 8:00 AM EST Office Visit [facility] [address] [facility] [address] [place] [address] Penelope Carmona MD [address] [facility] [address] [place] [address] 08/05/2024 9:30 AM EST Appointment [facility] [address] [place] [address] 02/26/2025 9:30 AM EDT Appointment [facility] [address] [place] [address] 02/26/2025 10:30 AM EDT Office Visit [facility] [address] [facility], [address] [place] [address] Berenice Resendez, B[employer]ER [employer]INT [address] [facility] [address] [place] [address] documented as of this encounter Visit Diagnoses Not on filedocumented in this encounter Additional Health Concerns Assessment Noted Time A fall risk assessment has been complete d for the patient 06/27/2022 10:09 AM EST documented as of this encounter Care Teams Nca Certified Concierge Relationship Specialty Start Date End Date Flaquita Dorsey DO [address] [place] [address] PCP - General 12/14/21 Aliyah Valencia MD [address] [place] [place] [address] Referring Physician 03/10/21 documented as of this encounter
--- OUTSIDE RECORDS SUMMARY | 2024-07-10 12:00 | XMS_ITS | Encounter Summary ---
Author Organization Healthcare Address [address] [place] [address] Care Team Providers Care Crew Leader/Control Room Operator Name Role Phone Aliyah Valencia MD Unavailable [phone] Flaquita Dorsey DO Primary Care Provider [phone] Reason for Visit * Reason Comments Chemotherapy Encounter Details Date Type Department Care Team ([facility] st Contact Info) Description 05/16/2022 11:00 AM EDT Office Visit [facility] [address] [place] [address] Penny Carmona MD [address] [facility] [address] [place] [address] Carcinoma of fallopian tube, unspecified laterality (CMS/HCC) (Primary Dx); Obesity (BMI 30-39.9); Neuropathy; Vaginal hemorrhage Social [...] suspected to have Coronavirus/COVID-19? No / Unsure 05/16/2022 10:47 AM EDT documented as of this encounter Last Filed Vital Signs Vital Sign Reading Time Taken Comments Blood Pressure 114/68 05/16/2022 10:59 AM EDT Pulse 84 05/16/2022 10:59 AM EDT Temperature 36.4 ??C (97.6 ??F) 05/16/2022 1 0:59 AM EDT Respiratory Rate - - Oxygen Saturation - - Inhaled Oxygen Concentration - - Weight 83.3 kg (183 lb 10.3 oz) 022 10:59 AM EDT Height - - Body Mass Index 32.02 04/25/2022 11:58 AM EDT documented in this encounter Miscellaneous Notes * Progress Notes - Penny Carmona MD - 05/16/2022 11:00 AM EDT Primary Care Provider: Flaquita Dorsey DO History of Present Illness: Chief complaint: 76 yo female here for cycle 2 Dana/oral cytoxan. Oncologic history is as follows: [...] she underwent a left needle localized lumpectomy. [place] lymph node biopsy was not performed as [...] vagina). Initiated neoadjuvant chemo with carbo/Taxol per MARKET DIRECTOR followed by BSO/Omentectomy and adjuvant Carbotaxol. Recurrence in March 2019. Treated with carbo initially followed by Olaparib. 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 She is currently off of therapy. She follows with Dr. Hutchins in [facility] [employer] [facility]/Onc. 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 Recurrence - First recurrence, [place] sensitive - CT 04/10/19 with 3 cmlesion at cuff - Ca125 12 (from 8) - MTB discussion: recommend trial if progression on sh[place] regimen or consider Parp for RAD 51 [...] - Required lap ccy for choledocolithiasis 2019 ([facility]) - Ca125: 99-1-2-7-7-9-8 - Started Parp inhibitor 09/2019 - Dose [...] concerning findings - Most recent Ca125 7.49 ([id number]) 06/30/2021 Recurrence - Third recurrence, [place] sensitive - CT 06/30/2021 shows vaginal cuff [...] disease seen 04/11/2022 Recurrence - Fourth recurrence, shag[place] resistant - CT 04/11/2022 with increase in size of mass at apex of vagina to 5 cm from 3.6 cm 04/18/2022 - Chemotherapy - Dana, oral Cytoxan started 04/25/2022 (held 04/18 for 24 hr urine) - Ca125 12.2- Interval updates to history: Oncologic treatment history as described above reviewed today as well as PMH/PSH/Meds/All/SH/FH, with updates made as appropriate. Patient is here today for cycle 2of [place]ev[place] oral Cytoxan. She has some nagging GRAJEDA's but nothing severe. No visual changes. Notes her VB and discharge/leakage have decreased since last visit. She is on antibiotics for a uti right now. Had food poisoning last week. Had CT at [facility] at that time that noted a pelvic mass. PMH: h/o breast cancer x2, ?cervical cancer, [...] years ago, no drugs, retired, lives in [place]. FamHx: Father-prostate, MGma-colon. ROS: 14 pt ROS performed with pertinent positives and negatives as noted in HPI. ROS otherwise negative Objective Physical Exam: Vital Signs for this encounter: BSA: 1.93 meters squared Visit Vitals BP 114/68 Pulse 84 Temp 36.4 ??C (97.6 ??F) Wt 83.3 kg (183 lb 10.3 oz) LMP 11/17/1981 (Approximate) BMI 32.02 kg/m?? OB Status Hysterectomy Smoking Status Former BSA 1.93 m?? Physical Exam Vitals and nursing note reviewed. Constitutional: Appearance: Normal appearance. She is well-developed. She is obese. HENT: Head: Normocephalic and atraumatic. Mouth/Throat: Mouth: Mucous membranes are moist. Eyes: Conjunctiva/sclera: Conjunctivae normal. Cardiovascular: Rate and Rhythm: Normal rate. Pulmonary: Effort: Pulmonary effort is normal. Abdominal: General: There is no distension. Palpations: [...] Status: Asymptomatic PS= 0 Results: CBC WBC 5.13 Hgb 12.5 PLT 242 HCT 39.1 Lab Results Component Value Date NEUTROABS 3.68 05/16/2022 BASIC METABOLIC PANEL Na 139 Cl 102 BUN 21 Gluc 94 K 4.0 Co2 24 Creat 0.80 LIVER FUNCTION TESTING Tot Prot 6.8 AST 16 Tot bili 0.4 ALT 14 Alkphos 82 Ca 9.8 Mg 1.3 Phos No results found for requested labs within last 8760 hours. === 04/11/22 === CT CHEST W IV CONTRAST - Narrative - Exam/Procedure: CT CHEST W IV CONTRAST ordered by PENNY DODSON, [id number] CLINICAL INDICATION: Ovarian cancer, assess treatment response TECHNIQUE: Multiple axial CT images were obtained from thoracic inlet through pubic symphysis following administration of IV contrast, Omnipaque 350, 100 mL. Reformatted images of the abdomen and pelvis in the coronal and sagittal planes were generated from the axial data set to facilitate diagnostic accuracy. Total DLP (Dose-Length Product): 488.05 mGy.cm. Please note: The reported value represents the total of one or more individual components during the CT acquisition on this date and at this time, and as such, the same value may appear in more than one CT report depending on the interpreting/reporting physicians. COMPARISON: CT chest, abdomen and pelvis June 30, 2021; and CT abdomen pelvis October 04, 2021 FINDINGS: Chest: Lymph Nodes and Mediastinum: No lymphadenopathy by CT size criteria. No mediastinal mass lesions. No suspicious thyroid findings. Cardiovascular: The heart is normal in caliber. Thoracic great vessels are patent. Coronary artery calcification. Right chest wall port with tip at the superior cavoatrial junction. Lungs and Pleura: No suspicious lung nodules to suggest metastatic disease. Unchanged right upper lobe 2 mm nodule (series 4 image 75). No pleural effusions or suspicious thickening. Musculoskeletal and Body Wall: No clearly aggressive bone lesions. Unchanged asymmetric left breastsoft tissue with multiple adjacent surgical clips. No significant axillary adenopathy. Abdomen/Pelvis: Solid Abdominal Organs: Homogenous hepatic enhancement. Tiny low-attenuation focus along the falciform ligament remains unchanged (series 4 image 48). No new suspicious liver lesion. Postcholecystectomy with mild ectasia of the extra hepatic bile duct. Unremarkable spleen, pancreas. Unchanged left adrenal gland myelolipoma. Indeterminate right adrenal gland nodule measures 2.2 cm, unchanged. Symmetric renal enhancement. 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 Adjacent hypodense nodule measuring 10 mm is also unchanged. No hydronephrosis. GI Tract/Mesentery/Peritoneum: Stomach is within normal limits. Large descending duodenal diverticulum. The large and small bowel appear normal in caliber. Ventral abdominal wall hernia containing nondilated small bowel and portion of the sigmoid colon. No evidence of inflammatory change or obstruction. No suspicious peritoneal/mesenteric findings. Pelvic Viscera: Partially distended bladder with circumferential wall thickening and mild perivesicular fat stranding. Redemonstration of heterogenous mass centered within the right vaginal cuff region now measuring 4.6 x 4.0 x 5.0 cm, previously 2.8 x 2.5 x 3.6 cm (series 4 image 250). Mass abuts the posterior wall of the bladder. No definite fistula formation. Lymph Nodes/Vasculature: No lymphadenopathy by CT size criteria. The aortoiliac vasculature is patent and normal in caliber. Free Fluid: No free fluid in the abdomen or pelvis. Musculoskeletal and Body Wall: No aggressive or suspicious findings. - Impression - Chest: No evidence of metastatic disease within the chest. Abdomen/Pelvis: Interval enlargement of vaginal cuff enhancing mass concerning for disease progression. Unchanged right adrenal gland indeterminate nodule. No new evidence of distant metastatic disease or significant adenopathy. CRITICAL RESULT: No. COMMUNICATION: Per this written report. 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 - Completed 6 [...] other disease - Caris testing requested - Extensive discussion on options. Now shageluk resistant (5 month interval). Will not use Carbo again. Offered traditional chemo (Gemzar, DD Taxol, Doxil) vs Dana/oral Cytoxan. Elects for Dana/oral cytoxan - Second cycle of Dana today, continue oral cytoxan. Follow Ca125 qcycle and consider imaging q 3-4 cycles. Will acquire [facility] scan from ED - but believe mass they referenced to patient isthe one we already know about and are treating. Problem 2: Vaginal bleeding Assessment and plan 2: - Likely due to growing mass at cuff - May make protein in urine look higher than it is - Bleeding decreased since starting Dana/Cytoxan Problem 3: Cervical cancer Assessment and plan 3: - Distant history, care home survivor. 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 Problem 4: History of left breast cancer x 2 Assessment and plan 4: - s/p anastrazole. No current signs of disease Problem 5: Neuropathy Assessment and plan 5: - Treatment related. Worst at night. - Will not use Taxol again. - Continue Gabapentin. Problem 6: h/o syncope episodes and carotid stenosis Assessment and plan 6: - No current symptoms. - Follow up with cards as diected Problem 7: Obesity Assessment and plan 7: - Body mass index is 32.02 kg/m??. - Affects all aspects of care Problem 8: Proteinuria Assessment and plan 8: - Noted on screen when trying to start Dana 04/18 - 24 hr urine ok for treatment - Blood in urine may affect result. Consider cath specimen in future if needed Summary of time spent in team based care today includes the following activities performed by myself: review of prior documentation in preparation for visit, review of labs and any other test results, obtaining and reviewing medical history, appropriate focused physical exam, discussion of exam and/or test results, discussion of plan of care, lab orders, phlebotomy. MD ADRIANA Arana [facility] [address] [facility] [address] [facility] [address] Dept: [phone] Dept Loc: [phone] * Progress Notes - Jody Osuna - 05/16/2022 11:00 AM EDT Pharmacy Hematology/Oncology Treatment Plan Note [...] for: [x] Follow-Up Clinical Review for Cycle 2 [x] Follow-Up Clinical Review for Continuous Oral [...] mg/dL. Okay to proceed with treatment today. Dosing Wt: 84 kg Today's Wt: Wt Readings from Last 1 Encounters: 05/16/22 83.6 kg (184 lb 4.9 oz) Dosing Ht: 160 cm DosingBSA: 1.88 m2 Recent Labs: Lab Results Component Value Date WBC 5.13 05/16/2022 HGB 12.5 05/16/2022 HCT 39.1 05/16/2022 MCV 97 05/16/2022 PLT 242 05/16/2022 Lab Results Component Value Date GLUCOSE 94 05/16/2022 CALCIUM 9.8 05/16/2022 NA 139 05/16/2022 K 4.0 05/16/2022 CO2 24 05/16/2022 CL 102 05/16/2022 BUN 21 05/16/2022 CREATININE 0.80 05/16/2022 Lab Results Component Value Date ALT 14 05/16/2022 AST 16 05/16/2022 ALKPHOS 82 05/16/2022 BILITOT 0.4 05/16/2022 Lab Results Component Value Date NEUTROABS 3.68 05/16/2022 Lab Results Component Value Date MG 1.3 (L) 11/17/2021 Vitals: Vitals: 05/16/22 1059 BP: 114/68 Pulse: 84 Temp: 36.4 ??C (97.6 ??F) Other Relevant Monitoring: Treatment Plan: Bevacizumab 15 mg/kg (1,300 mg) IV D1 Cyclophosphamide 50 mg PO daily Every 21 days [x] No dose adjustments made Current Treatment Plan History: Bevacizumab/oral Cyclophosphamide #1: 04/25/22 #2: 05/16/22 Prior Chemotherapy History: hormone therapy for prior [...] 10/27/21 - lifetime dose carboplatin #6: 11/17/21 Assessment/Plan: Rx Sent to: [facility] Refills due: June 2022 I reviewed the patient's chart and chemotherapy orders were approved. Patient will return to clinic in 3 weeks. Will follow-up at that time. Pharmacist Attestation: Jody Osuna, PharmD Hematology/Oncology Clinical Pharmacist documented in this encounter Plan of Treatment Upcoming Encounters Date Type Department Care Team (Late st Contact Info) Description 08/05/2024 8:00 AM EST Office Visit [facility] Gynecology [address] [place] [address] Penny Carmona MD [address] [facility] [address] [place] [address] 08/05/2024 9:30 AM EST Appointment [facility] [address] [place] [address] 02/26/2025 9:30 AM EDT Appointment [facility] [place] [address] [place] [address] 02/26/2025 10:30 AM EDT Office Visit [facility] [address] [facility] 2nd [place] [address] Berenice Resendez, MEAT INSPECTOR [address] [facility] [address] [place] [address] documented as of this encounter Procedures Procedure Name Priority Date/Time Associated Diagnosis Comments CBC WITH AUTO DIFFERENTIAL Routine 05/16/2022 11:09 AM EDT Carcinoma of fallopian tube, unspecified laterality (CMS/HCC) CA 125 Routine 05/16/2022 11:09 AM EDT Carcinoma of fallopian tube, unspecified laterality (CMS/HCC) COMPREHENSIVE METABOLIC PANEL, PLASMA Routine 05/16/2022 11:09 AM EDT Carcinoma of fallopian tube, unspecified laterality (CMS/HCC) documented in this encounter Results * CA 125 (05/16/2022 11:09 AM EDT) CA 125 6.21 <=38.00 U/mL 05/16/2022 12:52 PM EDT [facility] Blood Blood sample taken from central line / Unknown (Port) Long-term Catheter / Unknown 05/16/2022 11:09 AM EDT 05/16/2022 11:36 AM EDT Narrative [facility] - 05/16/2022 12:52 PM EDT Performed by Stephie electrochemiluminescent immunoassay. Results obtained with different test methods or kits cannot be used interchangeably. us Penny Dodson MD LAB BLOOD ORDERABLES Final Result [facility] [address] [place] [address] * Comprehensive metabolic panel (05/16/2022 11:09 AM EDT) Glucose, Plasma 94 74 - 99 mg/dL 05/16/2022 12:06 PM EDT [facility] BUN, Plasma 21 8 - 23 mg/dL 05/16/2022 12:06 PM EDT [facility] Creatinine, Plasma 0.80 0.60 - 1.10 mg/dL 05/16/2022 12:06 PM EDT [facility] BUN/Creatinine Ratio 26 05/16/2022 12:06 PM EDT [facility] Sodium, Plasma 139 136 - 145 mmol/L 05/16/2022 12:06 PM EDT [facility] Potassium, Plasma 4.0 3.7 - 4.8 mmol/L 05/16/2022 12:06 PM EDT [facility] Comment:Reference range for Serum potassium is 0.2 to 0.5 mmol/L higher than Plasma range. Chloride, Plasma 102 97 - 107 mmol/L 05/16/2022 12:06 PM EDT [facility] CO2, Plasma 24 22 - 29 mmol/L 05/16/2022 12:06 PM EDT [facility] Anion Gap 13 6 - 16 mmol/L 05/16/2022 12:06 PM EDT [facility] Total Calcium, Plasma 9.8 8.9 - 10.2 mg/dL 05/16/2022 12:06 PM EDT [facility] Total Protein 6.8 6.3 - 7.9 g/dL 05/16/2022 12:06 PM EDT [facility] Albumin, Plasma 4.0 3.5 - 5.2 g/dL 05/16/2022 12:06 PM EDT [facility] AST, Plasma 16 9 - 36 U/L 05/16/2022 12:06 PM EDT [facility] ALT, Plasma 14 8 - 33 U/L 05/16/2022 12:06 PM EDT [facility] Alkaline Phosphatase, Plasma 82 46 - 142 U/L 05/16/2022 12:06 PM EDT [facility] Total Bilirubin, Plasma 0.4 0.2 - 1.1 mg/dL 05/16/2022 12:06 PM EDT [facility] eGFRcr 76.5 mL/min/1.7 3m*2 05/16/2022 12:06 PM EDT [facility] Comment: Reported eGFRcr in mL/min/1.73m2 is based the CKD-EPI 2020 equation that does not use a race coefficient. Effective 02/23/22 our laboratory changed the eGFR calculation to the CKD-EPI 2020 equation from the previously reported eGFR, based on the MDRD equation. ??For comparisons between the two equations, please see laboratory website: ??[email or web address] Blood Blood sample taken from central line / Unknown (Port) Long-term Catheter / Unknown 05/16/2022 11:09 AM EDT 05/16/2022 11:35 AM EDT us Penny Dodson MD LAB BLOOD ORDERABLES Final Result [facility] [address] [place] [id number] * (ABNORMAL) CBC and differential (05/16/2022 11:09 AM EDT) WBC Count 5.13 3.70 - 10.30 10*3/uL LAB HEMATOLOGY METHOD 05/16/2022 11:23 AM EDT [facility] RBC Count 4.02 3.90 - 5.20 10*6/uL LAB HEMATOLOGY METHOD 05/16/2022 11:23 AM EDT [facility] HGB 12.5 11.2 - 15.7 g/dL LAB HEMATOLOGY METHOD 05/16/2022 11:23 AM EDT [facility] HCT 39.1 34.0 - 45.0 % LAB HEMATOLOGY METHOD 05/16/2022 11:23 AM EDT [facility] Platelet Count 242 155 - 369 10*3/uL LAB HEMATOLOGY METHOD 05/16/2022 11:23 AM EDT [facility] MCV 97 79 - 98 fL LAB HEMATOLOGY METHOD 05/16/2022 11:23 AM EDT [facility] MCH 31.1 26.0 - 32.0 pg LAB HEMATOLOGY METHOD 05/16/2022 11:23 AM EDT [facility] MCHC 32.0 30.7 - 35.5 g/dL LAB HEMATOLOGY METHOD 05/16/2022 11:23 AM EDT [facility] RDW 15.0(H) 11.5 - 14.5 % LAB HEMATOLOGY METHOD 05/16/2022 11:23 AM EDT [facility] MPV 9.2 8.8 - 12.5 fL LAB HEMATOLOGY METHOD 05/16/2022 11:23 AM EDT [facility] nRBC 0.0 <=0.0 per 100 WBCs LAB HEMATOLOGY METHOD 05/16/2022 11:23 AM EDT [facility] Differential Type Automated LAB HEMATOLOGY METHOD 05/16/2022 11:23 AM EDT [facility] Neutrophils % 72.0 % LAB HEMATOLOGY METHOD 05/16/2022 11:23 AM EDT [facility] Lymphocytes % 17.0 % LAB HEMATOLOGY METHOD 05/16/2022 11:23 AM EDT [facility] Monocytes % 7.0 % LAB HEMATOLOGY METHOD 05/16/2022 11:23 AM EDT [facility] Eosinophils % 3.0 % LAB HEMATOLOGY METHOD 05/16/2022 11:23 AM EDT [facility] Basophils % 1.0 % LAB HEMATOLOGY METHOD 05/16/2022 11:23 AM EDT [facility] Immature Granulocytes % 0.0 % LAB HEMATOLOGY METHOD 05/16/2022 11:23 AM EDT [facility] Neutrophils Absolute 3.68 1.60 - 6.10 10*3/uL LAB HEMATOLOGY METHOD 05/16/2022 11:23 AM EDT [facility] Lymphocytes Absolute 0.85(L) 1.20 - 3.90 10*3/uL LAB HEMATOLOGY METHOD 05/16/2022 11:23 AM EDT [facility] Monocytes Absolute 0.38 0.30 - 0.90 10*3/uL LAB HEMATOLOGY METHOD 05/16/2022 11:23 AM EDT [facility] Eosinophils Absolute 0.17 0.00 - 0.50 10*3/uL LAB HEMATOLOGY METHOD 05/16/2022 11:23 AM EDT [facility] Basophils Absolute 0.04 0.00 - 0.10 10*3/uL LAB HEMATOLOGY METHOD 05/16/2022 11:23 AM EDT [facility] Immature Granulocytes Absolute 0.01 0.00 - 0.06 10*3/uL LAB HEMATOLOGY METHOD 05/16/2022 11:23 AM EDT [facility] Blood Blood sample taken from central line / Unknown (Port) Long-term Catheter / Unknown 05/16/2022 11:09 AM EDT 05/16/2022 11:20 AM EDT [facility] - 05/16/2022 11:23 AM EDT Therapeutic decision making should be based on absolute values, rather than percentages. us Penny Dodson MD LAB BLOOD ORDERABLES Final Result [facility] [address] [place] [address] documented in this encounter Visit Diagnoses Diagnosis Carcinoma of fallopian tube, unspecified laterality (CMS/HCC)- Primary Obesity (BMI 30-39.9) Neuropathy Mononeuritis of unspecified site Vaginal hemorrhage Other specified noninflammatory disorder of vagina documented in this encounter Additional Health Concerns Assessment Noted Time A fall risk assessment has been complete d for the patient 05/16/2022 11:58 AM EDT documented as of this encounter Care Teams Crew Leader/Control Room Operator Relationship Specialty Start Date End Date Flaquita Dorsey DO [address] [place], [place] [id number] PCP - General 12/14/21 Aliyah Valencia MD [address] [place] [place] [address] Referring Physician 03/10/21 documented as of this encounter
--- OUTSIDE RECORDS SUMMARY | 2024-07-10 12:00 | XMS_ITS | Encounter Summary ---
Author Organization [facility] Address [address] [place], [place] [id number] Care Team Providers Care Core Maker Name Role Phone Aliyah Valencia MD Unavailable [phone] Flaquita Dorsey DO Primary Care Provider [phone] Encounter Details Date Type Department Care Team (Late Contact Info) Description 06/20/2022 Orders Only [facility] [address] [facility], [address]nd [place] [address] Kala Jain, PharmD [address] [place] [address] Social History Tobacco Use Types Packs/Day Years [...] suspected to have Coronavirus/COVID-19? No / Unsure 06/06/2022 2:17 PM EST documented as of this encounter Plan of Treatment Upcoming Encounters Date Type Department Care Team (Late Contact Info) Description 08/05/2024 8:00 AM EST Office Visit [facility] Gynecology [address] [place] [address] Penelope Carmona MD [address] [place] [address] 08/05/2024 9:30 AM EST Appointment [facility] [address] [place] [address] 02/26/2025 9:30 AM EDT Appointment [facility] [address] [facility] [address] [place] [address] 02/26/2025 10:30 AM EDT Office Visit [facility] [address] [facility] [place] [address] Berenice Resendez, FILTER TANK OPERATOR [address] [facility] [address] [facility] [address] [place] [address] documented as of this encounter Visit Diagnoses Not on filedocumented in this encounter Additional Health Concerns Assessment Noted Time A fall risk assessment has been complete d for the patient 06/06/2022 3:34 PM EST documented as of this encounter Care Teams Core Maker Relationship Specialty Start Date End Date Flaquita Dorsey DO [address] [place] [address] PCP - General 12/14/21 Aliyah Valencia MD [address] [place] [place] [address] Referring Physician 03/10/21 documented as of this encounter
--- OUTSIDE RECORDS SUMMARY | 2024-07-10 12:00 | XMS_ITS | Encounter Summary ---
Author Organization Healthcare Address [address] [place] [address] Care Team Providers Care Bicycle Inspector Name Role Phone Aliyah Valencia MD Unavailable [phone] Flaquita Dorsey DO Primary Care Provider [phone] Encounter Details Date Type Department Care Team (Latest Contact Info) Description 04/25/2022 Travel Social History Tobacco Use Types Packs/Day [...] AM EST Office Visit [facility] 800 [facility] [address] [place] [address] Penelope Carmona MD 800 [facility] [address]ra Singh [address] [place] [address] 08/05/2024 9:30 AM EST Appointment [facility] 1 [address] [place] [address] 02/26/2025 9:30 AM EDT Appointment [facility] Radha Lai Building [address] [place] [address] 02/26/2025 10:30 AM EDT Office Visit [facility] 7[address] [facility], 2nd [place] [address] Berenice Resendez, PROJECT PROGRAM MANAGER 800 [facility] [address] [place] [address] documented as of this encounter Visit Diagnoses Not on filedocumented in this encounter Additional Health Concerns Assessment Noted Time A fall risk assessment has been complete d for the patient 04/25/2022 11:58 AM EDT documented as of this encounter Care Teams Bicycle Inspector Relationship Specialty Start Date End Date Flaquita Dorsey DO [address] [place] [address] PCP - General 12/14/21 Aliyah Valencia MD [address] [place] [address] Referring Physician 03/10/21 documented as of this encounter
--- OUTSIDE RECORDS SUMMARY | 2024-07-10 12:00 | XMS_ITS | Encounter Summary ---
Author Organization [facility] Address [address] [place] [address] Care Team Providers Care Cryptographic Technician Name Role Phone Aliyah Valencia MD Unavailable [phone] Flaquita Dorsey DO Primary Care Provider [phone] Encounter Details Date Type Department Care Team (Late st Contact Info) Description 05/10/2022 Telephone [facility] [address] [place] [address] Penelope Carmona MD [address] Lai [facility] [address] [place] [address] Social History Tobacco Use Types Packs/Day Years [...] Telephone Encounter - Georgette Acevedo RN - 05/10/2022 1:27 PM EDT Notified patient of lab results and potassium level of 3.3. After speaking to Ely Stanback, LAUNDRY OPERATOR FINISHING, patient was encouraged to continue taking Potassium twice a day and to let us know if refills are needed. She verbalized understanding. Georgette Acevedo, RN * Telephone Encounter - Dwain Concepcion MD - 05/10/2022 12:55 PM EDT Images from the original note were not included. Reviewed report: Findings appear to be consistent with prior studies Recently initiated pilar/cytoxan on 04/25 - cuff recurrence previously seems to have decreased in sizebut may be premature to eval response Questionable colitis on CT - recommend to continue to monitor symptoms (diarrhea, constipation, nausea, vomiting, abdominal/pelvic pain) Patient has follow-up on 05/[address] Hutchins and can be reviewed further documented in this encounter Plan of Treatment Upcoming Encounters Date Type Department Care Team (Late st Contact Info) Description 08/05/2024 8:00 AM EST Office Visit [facility] Gynecology 800 [facility] [address] Penelope Carmona MD 800 [facility] Mayra Lai [facility] [address] [place] [address] 08/05/2024 9:30 AM EST Appointment [facility] 1 [address] [place] [address] 02/26/2025 9:30 AM EDT Appointment [facility] [address] [facility] [address] [place] [address] 02/26/2025 10:30 AM EDT Office Visit [facility] Breast Care Center [address] [facility], 2nd [place] [address] Berenice Resendez, LAUNDRY OPERATOR FINISHING 800 [facility] Mayra Guillenson [facility] [address] [place] [address] documented as of this encounter Visit Diagnoses Not on filedocumented in this encounter Additional Health Concerns Assessment Noted Time A fall risk assessment has been complete d for the patient 04/25/2022 11:58 AM EDT documented as of this encounter Care Teams Cryptographic Technician Relationship Specialty Start Date End Date Flaquita Dorsey DO [address] [place], [place] [id number] PCP - General 12/14/21 Aliyah Valencia MD [address] [place] [address] Referring Physician 03/10/21 documented as of this encounter
--- OUTSIDE RECORDS SUMMARY | 2024-07-10 12:00 | XMS_ITS | Encounter Summary ---
Author Organization Healthcare Address [address] [place] [address] Care Team Providers Care Reject Opener And Filler Name Role Phone Aliyah Valencia MD Unavailable [phone] Flaquita Dorsey DO Primary Care Provider [phone] Encounter Details Date Type Department Care Team (Latest Contact Info) Description 05/16/2022 Travel Social History Tobacco Use Types Packs/Day [...] AM EST Office Visit [facility] 800 [facility] [address] [place] [address] Penelope Carmona MD 800 [facility] [address] [place] [address] 08/05/2024 9:30 AM EST Appointment [facility] 1 [address] [place] [address] 02/26/2025 9:30 AM EDT Appointment [facility] Radha Lai Building [address] [place] [address] 02/26/2025 10:30 AM EDT Office Visit [facility] [address] [facility], 2nd [place] [address] Berenice Resendez, PACKING MACHINE TENDER 800 [facility] [address] [place] [address] documented as of this encounter Visit Diagnoses Not on filedocumented in this encounter Additional Health Concerns Assessment Noted Time A fall risk assessment has been complete d for the patient 05/16/2022 11:58 AM EDT documented as of this encounter Care Teams Reject Opener And Filler Relationship Specialty Start Date End Date Flaquita Dorsey DO [address] [place] [address] PCP - General 12/14/21 Aliyah Valencia MD [address] [place] [address] Referring Physician 03/10/21 documented as of this encounter
--- OUTSIDE RECORDS SUMMARY | 2024-07-10 12:00 | XMS_ITS | Encounter Summary ---
Author Organization [facility] Address [facility] [place] [id number] Care Team Providers Care Production Line Manager Name Role Phone Aliyah Valencia MD Unavailable [phone] Flaquita Dorsey DO Primary Care Provider [phone] Reason for Referral * Consultation (Routine) - Closed Specialty Diagnoses / Procedures Referred By Contac t Referred To Contact Hematology and Oncology Diagnoses Carcinoma of fallopian tube, unspecified laterality (CMS/HCC) S/P cardiac cath Penelope Carmona MD 800 [facility] [address] [address] Phone: tel: fax: [facility] 800 [facility], [address]nd [place] [address] Phone: tel: fax: Referral ID Status Reason Start Date Expiration Date V isits Requested Visits Authorized [id number] Closed Specialty Services Required 06/27/2022 12/27/2023 1 1 Scheduling Instructions Please schedule with Dr. Iqbal. Encounter Details Date Type Department Care Team (Late st Contact Info) Description 06/27/2022 Orders Only [facility] [address] [place] [address] Penelope Carmona MD 800 [facility] [address] [facility] [address] [place] [address] Carcinoma of fallopian tube, unspecified laterality (CMS/HCC) (Primary Dx); S/P cardiac cath Social History Tobacco Use Types Packs/Day Years [...] Upcoming Encounters Date Type Department Care Team ([facility] st Contact Info) Description 08/05/2024 8:00 AM EST Office Visit [facility] Gynecology 800 [facility] [address] [place] [address] Penelope Carmona MD 800 [facility] [address] [facility] [address] [place] [address] 08/05/2024 9:30 AM EST Appointment [facility] 1 [address] [place] [address] 02/26/2025 9:[address] [facility] Breast Care Center [facility] [place] [address] [address] [facility] [address] [place] [address] 02/26/2025 10:30 AM EDT Office Visit [facility] Breast Care Center 740 [facility], 2nd [place] [address] Berenice Resendez, DESIGN PRINTER BALLOON 800 [facility] [address] [facility] [address] [place] [address] Scheduled Referrals Name Type Priority Associated Diagnoses Orde r Schedule Ambulatory referral to Cardiology-Oncology Outpatient Referral Routine Carcinoma of fallopian tube, unspecified laterality (CMS/HCC) S/P cardiac cath Expected: 06/27/2022 (Approximate), Expires: 12/26/2023 documented as of this encounter Visit Diagnoses Diagnosis Carcinoma of fallopian tube, unspecified laterality (CMS/HCC)- Primary S/P cardiac cath Other postprocedural status documented in this encounter Additional Health Concerns Assessment Noted Time A fall risk assessment has been complete d for the patient 06/27/2022 10:09 AM EST documented as of this encounter Care Teams Production Line Manager Relationship Specialty Start Date End Date Flaquita Dorsey DO [address] [place], [place] [id number] PCP - General 12/14/21 Aliyah Valencia MD [address] [place] [address] Referring Physician 03/10/21 documented as of this encounter
--- OUTSIDE RECORDS SUMMARY | 2024-07-10 12:00 | XMS_ITS | Encounter Summary ---
Author Organization Healthcare Address [address] [place] [address] Care Team Providers Care Assembler Production Line Name Role Phone Aliyah Valencia MD Unavailable [phone] Flaquita Dorsey DO Primary Care Provider [phone] Encounter Details Date Type Department Care Team (Latest Contact Info) Description 07/19/2022 Travel Social History Tobacco Use Types Packs/Day [...] AM EST Office Visit [facility] 800 [facility] [address] [place] [address] Penelope Carmona MD 800 [facility] [address] Singh [address] [place] [address] 08/05/2024 9:30 AM EST Appointment [facility] 1 [address] [place] [address] 02/26/2025 9:30 AM EDT Appointment [facility] Radha Lai [facility] 800 [place] [address] 02/26/2025 10:30 AM EDT Office Visit [facility] [place] 740 [facility], 2nd [place] [address] Berenice Resendez, COMPUTER LAB ASSISTANT 800 [facility] [address] [facility] [address] [place] [address] documented as of this encounter Visit Diagnoses Not on filedocumented in this encounter Additional Health Concerns Assessment Noted Time A fall risk assessment has been complete d for the patient 06/27/2022 10:09 AM EST documented as of this encounter Care Teams Assembler Production Line Relationship Specialty Start Date End Date Flaquita Dorsey DO [address] [place], [place] [id number] PCP - General 12/14/21 Aliyah Valencia MD [address] [place] [place] [address] Referring Physician 03/10/21 documented as of this encounter
--- OUTSIDE RECORDS SUMMARY | 2024-07-10 12:00 | XMS_ITS | Encounter Summary ---
Author Organization Healthcare Address [address] [place] [address] Care Team Providers Care Millinery Department Manager Name Role Phone Aliyah Valencia MD Unavailable [phone] Flaquita Dorsey DO Primary Care Provider [phone] Reason for Visit * Reason Comments Chemotherapy Encounter Details Date Type Department Care Team (Late st Contact Info) Description 06/06/2022 2:30 PM EST Office Visit [facility] [address] [place] [address] Ludmila Padgett, VASCULAR TECH [address] [place] [address] Carcinoma of fallopian tube, unspecified laterality (CMS/HCC) [...] Sign Reading Time Taken Comments Blood Pressure 120/70 06/06/2022 3:13 PM EST Pulse 98 06/06/2022 3:13 PM EST Temperature 36.9 ??C (98.5 ??F) 06/06/2022 3:13 PM ES T Respiratory Rate - - Oxygen Saturation - - Inhaled Oxygen Concentration - - Weight 82.2 kg (181 lb 3.5 oz) 06/06/2022 3:13 P M EST Height - - Body Mass Index 31.6 05/16/2022 11:59 AM EDT documented in this encounter Miscellaneous Notes * Progress Notes - Ludmila Padgett, VASCULAR TECH - 06/06/2022 2:30 PM EST Primary Care Provider: Flaquita Dorsey DO History of Present Illness: Chief complaint: 76 yo female here for cycle 3 Dana/oral cytoxan. Oncologic history is as follows: [...] she underwent a left needle localized lumpectomy. [place] lymph node biopsy was not performed as [...] vagina). Initiated neoadjuvant chemo with carbo/Taxol per FEED CRUSHER followed by BSO/Omentectomy and adjuvant Carbotaxol. Recurrence in March 2019. Treated with carbo initially followed by Olaparib. 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 She is currently off of therapy. She follows with Dr. Hutchins in [facility]Onc. 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 Recurrence - First recurrence, yuhaaviatam sensitive - CT 04/10/19 with 3 cmlesion at cuff - Ca125 12 (from 8) - MTB discussion: recommend trial if progression on yuhaaviatam regimen or consider Parp for RAD 51 [...] ccy for choledocolithiasis 2019 (SGB) - Ca125: 62-6-4-7-7-9-8 - Started Parp inhibitor 09/2019 - Dose [...] concerning findings - Most recent Ca125 7.49 (32058) 06/30/2021 Recurrence - Third recurrence, yuhaaviatam sensitive - CT 06/30/2021 shows vaginal cuff [...] disease seen 04/11/2022 Recurrence - Fourth recurrence, yuhaaviatam resistant - CT 04/11/2022 with increase in size of mass at apex of vagina to 5 cm from 3.6 cm 04/18/2022 - Chemotherapy - Dana, oral Cytoxan started 04/25/2022 (held 04/18 for 24 hr urine) - Ca125 12.2- 05/16/2022 Genetic Testing Caris Actionable mutations: ER (Hormone therapy), ALEKSEY High (Parp), PDL1 (Pembro) Other findings: Rad51D, TP53, MMR proficient, MSI stable, TMB low Interval updates to history: Oncologic treatment history as described above reviewed today as well as PMH/PSH/Meds/All/SH/FH, with updates made as appropriate. Patient is here today for cycle 3 of Dana. No visual changes. Says she is having some burning of bilateral hands at night. She takes neurontin, which improves sometimes, dose may need increased if does not improve. PMH: h/o breast cancer x2, ?cervical cancer, [...] years ago, no drugs, retired, lives in [place]. FamHx: Father-prostate, MGma-colon. ROS: 14 pt ROS performed with pertinent positives and negatives as noted in HPI. ROS otherwise negative Objective Physical Exam: Vital Signs for this encounter: BSA: 1.92 meters squared Visit Vitals BP 120/70 Pulse 98 Temp 36.9 ??C (98.5 ??F) Wt 82.2 kg (181 lb 3.5 oz) LMP 11/17/1981 (Approximate) BMI 31.60 kg/m?? OB Status Hysterectomy Smoking Status Former BSA 1.92 m?? Physical Exam Vitals and nursing note [...] Status: Asymptomatic PS= 0 Results: CBC WBC 5.63 Hgb 13.5 PLT 241 HCT 42.2 Lab Results Component Value Date NEUTROABS 3.68 06/06/2022 BASIC METABOLIC PANEL Na 139 Cl 100 BUN 23 Gluc 90 K 3.3 Co2 26 Creat 0.86 LIVER FUNCTION TESTING Tot Prot 7.3 AST 19 Tot bili 0.4 ALT 13 Alkphos 77 Ca 10.0 Mg 1.3 Phos No results found for requested labs within last 8760 hours. === 04/11/22 === CT CHEST W IV CONTRAST - Narrative - Exam/Procedure: CT CHEST W IV CONTRAST ordered by PENNY HUTCHINS STUART, [id number] CLINICAL INDICATION: Ovarian cancer, assess treatment response [...] followed by radiation for additional recurrence - [place] sensitive recurrence diagnosed 06/2021. - Completed 6 cycles of single agent Carbo 10/2021. Recovering well with no concerning residual toxicity. - CT OSH 12/2021 JARED. Given was done at different facility without ability to directly compare, willplan to recheck sooner than usual at - check again at 3 months from last (early March). - CT 04/11/2022 shows progression at cuff with no other disease - Caris testing requested - Extensive discussion on options. Now yuhaaviatam resistant (5 month interval). Will not use Carbo again. Offered traditional chemo (Gemzar, DD Taxol, Doxil) vs Dana/oral Cytoxan. Elects for Dana/oral cytoxan - Third cycle of Dana today, continue oral cytoxan. Follow Ca125 qcycle and consider imaging q 3-4 cycles. Will acquire [facility] scan from ED - but believe mass they referenced to patient is the one we already know about and are treating. Problem 2: Vaginal bleeding Assessment and plan 2: - Likely due to growing mass at cuff - May make protein in urine look higher than it is - Bleeding decreased since starting Dana/Cytoxan Problem 3: Cervical cancer Assessment and plan 3: - Distant history, alf survivor. 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 Problem 4: [...] plan 7: - Body mass index is 31.6 kg/m??. - Affects all aspects of care Problem 8: Proteinuria Assessment and plan 8: - Noted on screen when trying to start Dana 04/18 - 24 hr urine ok for treatment - Blood in urine may affect result. Consider cath specimen in future if needed 40 minutes was spent on this encounter; including preparing to see the patient, which involved review/interpretation of diagnostics and reports; obtaining and/or reviewing separately obtained history; performing appropriate physical exam; ordering/scheduling medications, tests or procedures; communicating findings and counseling/educating the patient, family and/or caregiver; documentation in EMR; and care coordination. Team based care includes nurse intake, review of prior documentation, history, physical exam, discussion of plan of care, appointment scheduling, lab orders, pblebotomy, and documentation. The selection, dosing and administration of anti-cancer agents and the management of associated toxicities requires complex medical decision making and intensive monitoring for toxicity. Modifications of drug dose and schedule as well as the initiation of supportive care interventions are often necessary because of expected toxicities. This varies individually based on patient tolerability, priortreatments and comorbidities/risk status. Monitoring typically entails labs, imaging and/or other diagnostics, utilizing a healthcare delivery team experienced in the use of anticancer agents and themanagement of associated toxicities in patients with cancer. Attending physician previously developed plan of care, which I discussed with the patient, whom I saw independently. The patient verbalized understanding and agrees with plan. All questions answered to their satisfaction. Encouraged to call should other questions/concerns arise. NICKOLAS Riojas [facility] GYNECOLOGY [address] [facility] [address] [facility] [address] Dept: [phone] Dept Loc: [phone] * Progress Notes - Rossy Infante, PharmD - 06/06/2022 2:30 PM EST Pharmacy Hematology/Oncology Treatment Plan Note [...] for: [x] Follow-Up Clinical Review for Cycle 3 [x] Follow-Up Clinical Review for Continuous Oral [...] proceed with treatment today pending CMP result. Dosing Wt: 84 kg Today's Wt: Wt Readings from Last 1 Encounters: 06/06/22 81.1 kg (178 lb 12.7 oz) Dosing Ht: 160 cm DosingBSA: 1.88 m2 Recent Labs: Lab Results Component Value Date WBC 5.63 06/06/2022 HGB 13.5 06/06/2022 HCT 42.2 06/06/2022 MCV 98 06/06/2022 PLT 241 06/06/2022 Lab Results Component Value Date GLUCOSE 90 06/06/2022 CALCIUM 10.0 06/06/2022 NA 139 06/06/2022 K 3.3 (L) 06/06/2022 CO2 26 06/06/2022 CL 100 06/06/2022 BUN 23 06/06/2022 CREATININE 0.86 06/06/2022 Lab Results Component Value Date ALT 13 06/06/2022 AST 19 06/06/2022 ALKPHOS 77 06/06/2022 BILITOT 0.4 06/06/2022 Lab Results Component Value Date NEUTROABS 3.68 06/06/2022 Lab Results Component Value Date MG 1.3 (L) 11/17/2021 No results found for: TSH Lab Results Component Value Date URINEPRO Negative 06/06/2022 Vitals: Vitals: 06/06/22 1513 BP: 120/70 Pulse: 98 Temp: 36.9 ??C (98.5 ??F) Other Relevant Monitoring: Treatment Plan: Bevacizumab 15 mg/kg (1,300 mg) IV D1 Cyclophosphamide 50 mg PO daily Every 21 days [x] No dose adjustments made Current Treatment Plan History: Bevacizumab/oral Cyclophosphamide #1: 04/25/22 #2: 05/16/22 #3: 06/06/22 Prior Chemotherapy History: hormone therapy for prior [...] carboplatin #6: 11/17/21 Assessment/Plan: Rx Sent to: [facility] Refills due: June 2022 I reviewed the patient's chart and chemotherapy orders were approved. Patient will return to clinic in [address] Hutchins. Will follow-up at that time. Pharmacist Attestation: Lori Infante, WarrenD, BCOP documented in this encounter Plan of Treatment Upcoming Encounters Date Type Department Care Team (Late st Contact Info) Description 08/05/2024 8:00 AM EST Office Visit [facility] Gynecology [address] [place] [address] Penny Carmona MD [address] [facility] [address] [place] [address] 08/05/2024 9:30 AM EST Appointment [facility] Infusion Clinic [address] [place] [address] 02/26/2025 9:30 AM EDT Appointment [facility] Breast Care Center Comprehensive Breast Care Center [facility] [address] [facility] [address] [place] [address] 02/26/2025 10:30 AM EDT Office Visit [facility] Breast Care Center [address] [place] [address] Berenice Resendez, VASCULAR TECH [address] [facility] [address] [place] [address] documented as of this encounter Procedures Procedure Name Priority Date/Time Associated Diagnosis Comments URINALYSIS, DIPSTICK Routine 06/06/2022 3:29 PM EST Carcinoma of fallopian tube, unspecified laterality (CMS/HCC) CBC WITH AUTO DIFFERENTIAL Routine 06/06/2022 3:18 PM EST Carcinoma of fallopian tube, unspecified laterality (CMS/HCC) CA 125 Routine 06/06/2022 3:18 PM EST Carcinoma of fallopian tube, unspecified laterality (CMS/HCC) COMPREHENSIVE METABOLIC PANEL, PLASMA Routine 06/06/2022 3:18 PM EST Carcinoma of fallopian tube, unspecified laterality (CMS/HCC) documented in this encounter Results * (ABNORMAL) Urinalysis, manual only (06/06/2022 3:29 PM EST) Color, Urine Yellow LAB URINALYSIS - AUTOMATED METHOD 06/06/2022 4:[address] [facility] Clarity, Urine Clear LAB URINALYSIS - AUTOMATED METHOD 06/06/2022 4:19 PM [facility] Spec [place], Urine 1.006 <=1.005 to >=1.030 LAB URINALYSIS - AUTOMATED METHOD 06/06/2022 4:19 PM [facility] pH, Urine 5.0 4.5 to 8 LAB URINALYSIS - AUTOMATED METHOD 06/06/2022 4:19 PM [facility] Protein, Urine Negative Negative mg/dL LAB URINALYSIS - AUTOMATED METHOD 06/06/2022 4:19 PM [facility] Glucose, Urine Negative Negative mg/dL LAB URINALYSIS - AUTOMATED METHOD 06/06/2022 4:19 PM [facility] Ketones, Urine Negative Negative mg/dL LAB URINALYSIS - AUTOMATED METHOD 06/06/2022 4:19 PM [facility] Blood, Urine Negative Negative LAB URINALYSIS - AUTOMATED METHOD 06/06/2022 4:19 PM [facility] Bilirubin, Urine Negative Negative LAB URINALYSIS - AUTOMATED METHOD 06/06/2022 4:19 PM [facility] Urobilinogen , Urine 0.2 0.2 to 1.0 mg/dL LAB URINALYSIS - AUTOMATED METHOD 06/06/2022 4:19 PM [facility] Leukocytes, Urine Moderate(A) Negative LAB URINALYSIS - AUTOMATED METHOD 06/06/2022 4:19 PM [facility] Nitrite, Urine Negative Negative LAB URINALYSIS - AUTOMATED METHOD 06/06/2022 4:19 PM [facility] Urine Urine specimen obtained by clean catch procedure / Unknown Non-blood Collection / Unknown 06/06/2022 3:29 PM EST 06/06/2022 4:07 PM EST Penny Dodson MD LAB URINE ORDERABLES Final Result Performing Organization Address [facility] Co de Phone Number [facility] [address] [place] [address] * CA 125 (06/06/2022 3:18 PM EST) CA 125 6.37 <=38.00 U/mL 06/06/2022 4:[address] [facility] Blood Blood sample taken from central line / Unknown (Port) Long-term Catheter / Unknown 06/06/2022 3:18 PM EST 06/06/2022 4:06 PM EST Narrative [facility] - 06/06/2022 4:46 PM EST Performed by Stephie electrochemiluminescent immunoassay. Results obtained with different test methods or kits cannot be used interchangeably. Penny Dodson MD LAB BLOOD ORDERABLES Final Result Performing Organization Address [facility] de Phone Number [facility] [address] [place] [address] * (ABNORMAL) Comprehensive metabolic panel (06/06/2022 3:18 PM EST) Glucose, Plasma 90 74 - 99 mg/dL 06/06/2022 4:37 PM EST [facility] BUN, Plasma 23 8 - 23 mg/dL 06/06/2022 4:37 PM EST [facility] Creatinine, Plasma 0.86 0.60 - 1.10 mg/dL 06/06/2022 4:37 PM EST [facility] BUN/Creatinine Ratio 27 06/06/2022 4:37 PM EST [facility] Sodium, Plasma 139 136 - 145 mmol/L 06/06/2022 4:37 PM EST [facility] Potassium, Plasma 3.3(L) 3.7 - 4.8 mmol/L 06/06/2022 4:37 PM EST [facility] Comment:Reference range for Serum potassium is 0.2 to 0.5 mmol/L higher than Plasma range. Chloride, Plasma 100 97 - 107 mmol/L 06/06/2022 4:37 PM EST [facility] CO2, Plasma 26 22 - 29 mmol/L 06/06/2022 4:37 PM EST [facility] Anion Gap 13 6 - 16 mmol/L 06/06/2022 4:[address] [facility] Total Calcium, Plasma 10.0 8.9 - 10.2 mg/dL 06/06/2022 4:[address] [facility] Total Protein 7.3 6.3 - 7.9 g/dL 06/06/2022 4:[address] [facility] Albumin, Plasma 4.4 3.5 - 5.2 g/dL 06/06/2022 4:[address] [facility] AST, Plasma 19 9 - 36 U/L 06/06/2022 4:[address] [facility] ALT, Plasma 13 8 - 33 U/L 06/06/2022 4:[address] [facility] Alkaline Phosphatase, Plasma 77 46 - 142 U/L 06/06/2022 4:[address] [facility] Total Bilirubin, Plasma 0.4 0.2 - 1.1 mg/dL 06/06/2022 4:[address] [facility] eGFRcr 70.1 mL/min/1.7 3m*2 06/06/2022 4:[address] [facility] Comment: Reported eGFRcr in mL/min/1.73m2 is based the CKD-EPI 2020 equation that does not use a race coefficient. Effective 02/23/22 our laboratory changed the eGFR calculation to the CKD-EPI 2020 equation from the previously reported eGFR, based on the MDRD equation. ??For comparisons between the two equations, please see laboratory website: ??[email or web address]://www.testITT EXIM.HubPages/[facility] Blood Blood sample taken from central line / Unknown (Port) Long-term Catheter / Unknown 06/06/2022 3:18 PM EST 06/06/2022 4:06 PM EST us Penny Dodson MD LAB BLOOD ORDERABLES Final Result [facility] [address] [place] [address] * (ABNORMAL) CBC and differential (06/06/2022 3:18 PM EST) WBC Count 5.63 3.70 - 10.30 10*3/uL LAB HEMATOLOGY METHOD 06/06/2022 3:[address] [facility] RBC Count 4.30 3.90 - 5.20 10*6/uL LAB HEMATOLOGY METHOD 06/06/2022 3:[address] [facility] HGB 13.5 11.2 - 15.7 g/dL LAB HEMATOLOGY METHOD 06/06/2022 3:[address] [facility] HCT 42.2 34.0 - 45.0 % LAB HEMATOLOGY METHOD 06/06/2022 3:[address] [facility] Platelet Count 241 155 - 369 10*3/uL LAB HEMATOLOGY METHOD 06/06/2022 3:[address] [facility] MCV 98 79 - 98 fL LAB HEMATOLOGY METHOD 06/06/2022 3:[address] [facility] MCH 31.4 26.0 - 32.0 pg LAB HEMATOLOGY METHOD 06/06/2022 3:[address] [facility] MCHC 32.0 30.7 - 35.5 g/dL LAB HEMATOLOGY METHOD 06/06/2022 3:53 PM [facility] RDW 15.1(H) 11.5 - 14.5 % LAB HEMATOLOGY METHOD 06/06/2022 3:53 PM [facility] MPV 9.7 8.8 - 12.5 fL LAB HEMATOLOGY METHOD 06/06/2022 3:53 PM [facility] nRBC 0.0 <=0.0 per 100 WBCs LAB HEMATOLOGY METHOD 06/06/2022 3:53 PM [facility] Differential Type Automated LAB HEMATOLOGY METHOD 06/06/2022 3:[address] [facility] Neutrophils % 65.0 % LAB HEMATOLOGY METHOD 06/06/2022 3:[address] [facility] Lymphocytes % 23.0 % LAB HEMATOLOGY METHOD 06/06/2022 3:[address] [facility] Monocytes % 6.0 % LAB HEMATOLOGY METHOD 06/06/2022 3:[address] [facility] Eosinophils % 5.0 % LAB HEMATOLOGY METHOD 06/06/2022 3:[address] [facility] Basophils % 1.0 % LAB HEMATOLOGY METHOD 06/06/2022 3:[address] [facility] Immature Granulocytes % 0.0 % LAB HEMATOLOGY METHOD 06/06/2022 3:[address] [facility] Neutrophils Absolute 3.68 1.60 - 6.10 10*3/uL LAB HEMATOLOGY METHOD 06/06/2022 3:53 PM EST [facility] Lymphocytes Absolute 1.28 1.20 - 3.90 10*3/uL LAB HEMATOLOGY METHOD 06/06/2022 3:53 PM EST [facility] Monocytes Absolute 0.36 0.30 - 0.90 10*3/uL LAB HEMATOLOGY METHOD 06/06/2022 3:53 PM EST [facility] Eosinophils Absolute 0.26 0.00 - 0.50 10*3/uL LAB HEMATOLOGY METHOD 06/06/2022 3:53 PM EST [facility] Basophils Absolute 0.03 0.00 - 0.10 10*3/uL LAB HEMATOLOGY METHOD 06/06/2022 3:53 PM EST [facility] Immature Granulocytes Absolute 0.02 0.00 - 0.06 10*3/uL LAB HEMATOLOGY METHOD 06/06/2022 3:53 PM EST [facility] Blood Blood sample taken from central line / Unknown (Port) Long-term Catheter / Unknown 06/06/2022 3:18 PM EST 06/06/2022 3:48 PM EST Narrative [facility] - 06/06/2022 3:53 PM EST Therapeutic decision making should be based on absolute values, rather than percentages. us Penny Dodson MD LAB BLOOD ORDERABLES Final Result [facility] [address] [place] [address] documented in this encounter Visit Diagnoses Diagnosis Carcinoma of fallopian tube, unspecified laterality (CMS/HCC)- Primary documented in this encounter Additional Health Concerns Assessment Noted Time A fall risk assessment has been complete d for the patient 06/06/2022 3:34 PM EST documented as of this encounter Care Teams Millinery Department Manager Relationship Specialty Start Date End Date Flaquita Dorsey DO [address] [place] [address] PCP - General 12/14/21 Aliyah Valencia MD [address] [place] [id number] Referring Physician 03/10/21 documented as of this encounter
--- OUTSIDE RECORDS SUMMARY | 2024-07-10 12:00 | XMS_ITS | Encounter Summary ---
Author Organization Healthcare Address [address] [place], [place] [id number] Care Team Providers Care Veterans Service Officer Name Role Phone Aliyah Valencia MD Unavailable [phone] Flaquita Dorsey DO Primary Care Provider [phone] Reason for Visit * Episode Based Medications (Routine) - Closed Specialty Diagnoses / Procedures Referred By Contac t Referred To Contact Diagnoses Carcinoma of fallopian tube, unspecified laterality (CMS/HCC) Procedures Bevacizumab Every 21 Days Penelope Carmona MD [address] [place] [address] Phone: tel: fax: [facility] Infusion Clinic [address] [place] [address] Phone: tel: Referral ID Status Reason Start Date Expiration Date Visits Re quested Visits Authorized [id number] Closed 04/11/2022 10/11/2023 1 14 Encounter Details Date Type Department Care Team (Latest Contact Info) Description 05/16/2022 11:58 AM EDT - 05/16/2022 11:59 PM EDT Hospital Encounter [facility] Infusion Clinic [address] [place] [address] Carcinoma of fallopian tube, unspecified [...] Sign Reading Time Taken Comments Blood Pressure 123/71 05/16/2022 2:02 PM EDT Pulse 83 05/16/2022 2:02 PM EDT Temperature 36.5 ??C (97.7 ??F) 05/16/2022 11:59 AM E DT Respiratory Rate 18 05/16/2022 11:59 AM EDT Oxygen Saturation 98% 05/16/2022 11:59 AM EDT Inhaled Oxygen Concentration - - Weight 83.6 kg (184 lb 4.9 oz) 05/16/2022 11:59 AM EDT Height 161.3 cm (5' 3.5 ) 05/16/2022 11:59 AM ED T Body Mass Index 32.14 05/16/2022 11:59 AM EDT documented in this encounter Medications at Time of Discharge aspirin 81 MG chewable tablet Chew 1 tablet (81 mg) 1 (one) time each day. ergocalciferol (Vitamin D-2) 1.25 MG (86971 UT) capsule Take 1 capsule (50,000 Units) [...] (Arimidex) 1 MG chemo tablet Take 1 mg by mouth 1 (one) time each day. Swallow whole with a drink of water. 2 biotin 1000 MCG tablet Take 1 tablet (1,000 mcg) by mouth 1 (one) time each day. 4 cephalexin (Keflex) 500 MG capsule Take 500 mg by mouth 4 (four) times a day. 2 clindamycin (Cleocin) 300 MG capsule Take 300 mg by mouth 4 (four) times a day. 2 cyclophosphamide (Cytoxan) 50 MG capsule capsule Take 1 capsule (50 mg total) by mouth 1 (one) time each day. 30 capsule 2 04/11/2022 2 denosumab (Prolia) 60 MG/ML injection 3 famciclovir [...] by mouth every night. 30 capsule 5 02/25/2022 2 hydrOXYzine HCl (Atarax) 25 MG tablet 12/13/2021 [...] (one) time each day before breakfast. 3 prochlorperazine (Compazine) 10 MG tabletIndications :Carcinoma [...] Description 08/05/2024 8:00 AM EST Office Visit [facility] Gynecology [address] [facility] [address] [place] [phone] Penelope Carmona MD [address] [facility] [address] [facility] [address] [place] [phone] 08/05/2024 9:30 AM EST Appointment [facility] Infusion Clinic [address] [place] [phone] 02/26/2025 9:30 AM EDT Appointment [facility] Breast Care Center Comprehensive [facility] [address] [facility] [address] [place] [address] 02/26/2025 10:30 AM EDT Office Visit [facility] Breast Care Center [address] [facility], [address]nd [place] [phone] Berenice Resendez, SPORTS PHYSICIAN [address] [facility] [address] [place] [phone] documented as of this encounter Visit Diagnoses [...] Specific administration requirements refer to [id number]., On 05/16/22 at 1300, For 1 dose, NS 100 mLIndications:Carcinoma of fallopian tube, unspecified laterality (CMS/HCC) New Bag 05/16/2022 1:30 PM EDT 1,300 mg 364 mL/hr documented in this encounter Additional Health Concerns Assessment Noted Time A fall risk assessment has been complete d for the patient 05/16/2022 11:58 AM EDT documented as of this encounter Care Teams Veterans Service Officer Relationship Specialty Start Date End Date Flaquita Dorsey DO [address] [place] [address] PCP - General 12/14/21 Aliyah Valencia MD [address] [place] [address] Referring Physician 03/10/21 documented as of this encounter
--- OUTSIDE RECORDS SUMMARY | 2024-07-10 12:00 | XMS_ITS | Encounter Summary ---
Author Organization [facility] Address [address] [place] [address] Care Team Providers Care Stem Maker Name Role Phone Aliyah Valencia MD Unavailable [phone] Flaquita Dorsey DO Primary Care Provider [phone] Reason for Referral * Imaging (Routine) - Closed Specialty Diagnoses / Procedures Referred By Contac t Referred To Contact Radiology Diagnoses Carcinoma of fallopian tube, unspecified laterality (CMS/HCC) Procedures CT Abdomen Pelvis w IV Contrast Penny Carmona MD [address] [address] Phone: tel: fax: Referral ID Status Reason Start Date Expiration Date Visits Re quested Visits Authorized [id number] Closed 07/20/2022 01/19/2024 1 1 * Imaging (Routine) - Closed Specialty Diagnoses / Procedures Referred By Contac t Referred To Contact Radiology Diagnoses Carcinoma of fallopian tube, unspecified laterality (CMS/HCC) Procedures CT Chest w IV Contrast Penny Carmona MD [address] [address] Phone: tel: fax: Referral ID Status Reason Start Date Expiration Date Visits Re quested Visits Authorized [id number] Closed 07/20/2022 01/19/2024 1 1 Reason for Visit * Reason Comments Chemotherapy Encounter Details Date Type Department Care Team (Late st Contact Info) Description 07/20/2022 1:00 PM EST Office Visit [facility] [address] [place] [address] Penny Carmona MD [address]elle [facility] [address] [place] [address] Carcinoma of fallopian tube, unspecified laterality (CMS/HCC) (Primary Dx); Encounter for antineoplastic chemotherapy; Obesity (BMI 30-39.9); Neuropathy; Chest pain, unspecified type Social History Tobacco Use Types Packs/Day Years Used Date Smoking Tobacco: Former Smokeless Tobacco: Former Tobacco Cessation:Counseling Given: Not [...] Sign Reading Time Taken Comments Blood Pressure 120/69 07/20/2022 1:02 PM EST Pulse 98 07/20/2022 1:02 PM EST Temperature 36.9 ??C (98.4 ??F) 07/20/2022 1:02 PM ES T Respiratory Rate - - Oxygen Saturation - - Inhaled Oxygen Concentration - - Weight 80.4 kg (177 lb 4 oz) 07/20/2022 1:02 PM EST Height - - Body Mass Index 31.4 07/19/2022 7:56 AM EST documented in this encounter Miscellaneous Notes * Progress Notes - Penny Carmona MD - 07/20/2022 1:00 PM EST Primary Care Provider: Flaquita [...] she underwent a left needle localized lumpectomy. [place] lymph node biopsy was not performed as [...] vagina). Initiated neoadjuvant chemo with carbo/Taxol per [employer]ER followed by BSO/Omentectomy and adjuvant Carbotaxol. Recurrence in March 2019. Treated with carbo initially followed by Olaparib. 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 She is currently off of therapy. She follows with Dr. Hutchins in [facility]/Onc. Malignant neoplasm of left breast in [...] additional cycles of Carbo/Taxol 09/12/2018 - Ca125 74-30-38-9-8 - Post treatment CT 10/01/2018 JARED 09/2018 [...] ccy for choledocolithiasis 2019 (SGB) - Ca125: 12-5-6-7-7-9-8 - Started Parp inhibitor 09/2019 - Dose [...] 7.49 (21) 06/30/2021 Recurrence - Third recurrence, grand ronde [...] 04/18 for 24 hr urine) - Ca125 12.2-6.21-6.37-5.99 - Cycle 4 Dana held for chest pain workup 05/16/2022 Genetic Testing Caris Actionable mutations: ER (Hormone therapy), ALEKSEY High (Parp), PDL1 (Pembro) Other findings: Rad51D, TP53, MMR proficient, MSI stable, TMB low Interval updates to history: Oncologic treatment history as described above reviewed today as well as PMH/PSH/Meds/All/SH/FH, with updates made as appropriate. Patient is here today for cycle 4 of Dana and to monitor toxicity of oral Cytoxan. Patient reports that she was hospitalized for 1 night over break (06/22/2022). She reported chest tightness as well a nausea and diaphoresis andthis prompted an ED visit. She had blood work, and EKG and an xray. Ddimer was noted to be slightlyhigh (0.69). Troponin negative and COVID neg. EKG with no acute ST changes. Cardiology consulted and recommended admission for monitoring due to her co-morbid conditions. She was started on a beta kari and nitroglycerin. Symptoms resolved. They recommended a diagnostic heart cath. She declined. Seen here 06/27/2022 and Dana held due to concern for uncompleted cardiac workup. Referred to cardio-oncology who saw her yesterday. CCTA recommended but ok to continue her chemo. Today feels well. Didhave one CP episode over weekend that resolved with NG. Appetite is normal. No N/V. Tired all the time but this predates her current regimen and not different lately. VB resolved. PMH: h/o breast cancer x2, ?cervical [...] years ago, no drugs, retired, lives in [place]. FamHx: Father-prostate, MGma-colon. ROS: 14 pt ROS performed with pertinent positives and negatives as noted in HPI. ROS otherwise negative Objective Physical Exam: Vital Signs for this encounter: BSA: 1.89 meters squared Visit Vitals BP 120/69 Pulse 98 Temp 36.9 ??C (98.4 ??F) Wt 80.4 kg (177 lb 4 oz) LMP 11/17/1981 (Approximate) BMI 31.40 kg/m?? OB Status Hysterectomy Smoking Status Former [...] Status: Asymptomatic PS= 0 Results: CBC WBC 4.69 Hgb 13.1 PLT 216 HCT 40.5 Lab Results Component Value Date NEUTROABS 3.00 06/27/2022 BASIC METABOLIC PANEL Na 138 Cl 99 BUN 27 Gluc 92 K 3.9 Co2 25 Creat 0.84 LIVER FUNCTION TESTING Tot Prot 7.2 AST 18 Tot bili 0.4 ALT 25 Alkphos 97 Ca 9.9 Mg 1.3 Phos No results found for requested labs within last 8760 hours. === 04/11/22 === CT CHEST W IV CONTRAST - Narrative - Exam/Procedure: CT CHEST W IV CONTRAST ordered by PENNY DODSON, [id number] CLINICAL INDICATION: Ovarian cancer, assess treatment response [...] followed by radiation for additional recurrence - [place] sensitive recurrence diagnosed 06/2021. - Completed 6 [...] other disease - Caris testing requested - [place] resistant (5 month interval). Will not use [...] recommended but ok to continue Dana. - Proceed with cycle 4 of Dana today. Plan q 21 cycles until progression/intolerance. No dose limiting toxicities identified. Pre chemo labs reviewed. Continue intensive weekly hematologic monitoring (CBC with diff, CMP). Also continue cyclic Ca125 tumor marker monitoring. Reviewed side effects to larisa tripp for. - Continue to follow Ca125 qcycle and consider imaging q 3-4 cycles. Will check imaging prior to cycle 5 - ordered today to coincide with cycle 5. 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 Problem 4: [...] 06/27/2022 - pain likely related to CAD. CCTA planned 07/22 but she may ask to move out due to weather. Has nitroglycerin for episodes at home Problem 7: Obesity Assessment and plan 7: - Body mass index is 31.4 kg/m??. - Affects all aspects of care [...] discussion of plan of care, lab orders, port draw/access, and documentation Encounter time 40 min PennyMD [facility] [address] [facility] [address] [facility] [address] Dept: [phone] Dept Loc: [phone] * Progress Notes - Serena Xiong, PharmD - 07/20/2022 1:00 PM EST Pharmacy Hematology/Oncology Treatment Plan [...] for: [x] Follow-Up Clinical Review for Cycle 4 [x] Follow-Up Clinical Review for Continuous Oral [...] Wt: Wt Readings from Last 1 Encounters: 07/20/22 80.2 kg (176 lb 12.9 oz) Dosing Ht: 160 cm DosingBSA: 1.88 m2 Recent Labs: Lab Results Component Value Date WBC 4.69 06/27/2022 HGB 13.1 06/27/2022 HCT 40.5 06/27/2022 MCV 99 (H) 06/27/2022 PLT 216 06/27/2022 Lab Results Component Value Date GLUCOSE 92 06/27/2022 CALCIUM 9.9 06/27/2022 NA 138 06/27/2022 K 3.9 06/27/2022 CO2 25 06/27/2022 CL 99 06/27/2022 BUN 27 (H) 06/27/2022 CREATININE 0.84 06/27/2022 Lab Results Component Value Date ALT 25 06/27/2022 AST 18 06/27/2022 ALKPHOS 97 06/27/2022 BILITOT 0.4 06/27/2022 Lab Results Component Value Date NEUTROABS 3.00 06/27/2022 Lab Results Component Value Date MG 1.3 (L) 11/17/2021 No results found for: TSH Lab Results Component Value Date URINEPRO Negative 06/06/2022 Vitals: Vitals: 07/20/22 1302 BP: 120/69 Pulse: 98 Temp: 36.9 ??C (98.4 ??F) Other Relevant Monitoring: None Treatment Plan: Bevacizumab [...] carboplatin #6: 11/17/21 Assessment/Plan: Rx Sent to: [facility] Refills due: June 2022 I reviewed the [...] AM EST Office Visit [facility] [address] [facility] [address] [place] [phone] Penny Carmona MD [address] [facility] [address] [facility] [address] [place] [address] 08/05/2024 9:30 AM EST Appointment [facility] [address] [place] [phone] 02/26/2025 9:30 AM EDT Appointment [facility] [address] [facility] [address] [place] [address] 02/26/2025 10:30 AM EDT Office Visit [facility] [address] [facility] [place] [phone] Berenice Resendez, ACADEMIC DIRECTOR [address] [facility] [address] [facility] [address] [place] [address] documented as of this encounter Procedures Procedure Name Priority Date/Time Associated Diagnosis Comments URINALYSIS, DIPSTICK Routine 07/20/2022 1:23 PM EST Carcinoma of fallopian tube, unspecified laterality (CMS/HCC) CBC WITH AUTO DIFFERENTIAL Routine 07/20/2022 1:23 PM EST Carcinoma of fallopian tube, unspecified laterality (CMS/HCC) CA 125 Routine 07/20/2022 1:23 PM EST Carcinoma of fallopian tube, unspecified laterality (CMS/HCC) COMPREHENSIVE METABOLIC PANEL, PLASMA Routine 07/20/2022 1:23 PM EST Carcinoma of fallopian tube, unspecified laterality (CMS/HCC) documented in this encounter Results * (ABNORMAL) Urinalysis, manual only (08/10/2022 2:54 PM EST) Color, Urine Yellow LAB URINALYSIS - AUTOMATED METHOD 08/10/2022 3:52 PM EST [facility] Clarity, Urine Clear LAB URINALYSIS - AUTOMATED METHOD 08/10/2022 3:52 PM EST [facility] Spec [place], Urine >=1.030 <=1.005 to >=1.030 LAB URINALYSIS - AUTOMATED METHOD 08/10/2022 3:52 PM EST [facility] pH, Urine 6.0 4.5 to 8 LAB URINALYSIS - AUTOMATED METHOD 08/10/2022 3:52 PM EST [facility] Protein, Urine Negative Negative mg/dL LAB URINALYSIS - AUTOMATED METHOD 08/10/2022 3:52 PM EST [facility] Glucose, Urine Negative Negative mg/dL LAB URINALYSIS - AUTOMATED METHOD 08/10/2022 3:52 PM EST [facility] Ketones, Urine Negative Negative mg/dL LAB URINALYSIS - AUTOMATED METHOD 08/10/2022 3:52 PM EST [facility] Blood, Urine Negative Negative LAB URINALYSIS - AUTOMATED METHOD 08/10/2022 3:52 PM EST [facility] Bilirubin, Urine Negative Negative LAB URINALYSIS - AUTOMATED METHOD 08/10/2022 3:52 PM EST [facility] Urobilinogen, Urine 1.0 0.2 to 1.0 mg/dL LAB URINALYSIS - AUTOMATED METHOD 08/10/2022 3:52 PM EST [facility] Leukocytes, Urine Trace(A) Negative LAB URINALYSIS - AUTOMATED METHOD 08/10/2022 3:52 PM EST [facility] Nitrite, Urine Negative Negative LAB URINALYSIS - AUTOMATED METHOD 08/10/2022 3:52 PM EST [facility] Urine Urine specimen obtained by clean catch procedure / Unknown Non-blood Collection / Unknown 08/10/2022 2:54 PM EST 08/10/2022 3:52 PM EST us Penny Dodson MD LAB URINE ORDERABLES Final Result Performing Organization Address City/[facility]/ZIP Co de Phone Number [facility] [address] [place] [address] * CA 125 (08/10/2022 2:08 PM EST) CA 125 5.61 <=38.00 U/mL 08/10/2022 3:37 PM EST [facility] Blood Blood sample taken from central line / Unknown (Port) Long-term Catheter / Unknown 08/10/2022 2:08 PM EST 08/10/2022 2:56 PM EST Narrative [facility] - 08/10/2022 3:37 PM EST Performed by Stephie electrochemiluminescent immunoassay. Results obtained with different test methods or kits cannot be used interchangeably. us Penny Dodson MD LAB BLOOD ORDERABLES Final Result Performing Organization Address City/[facility]/ZIP Co de Phone Number [facility] [address] [place] [address] * (ABNORMAL) Comprehensive metabolic panel (08/10/2022 2:08 PM EST) Glucose, Plasma 118(H) 74 - 99 mg/dL 08/10/2022 3:27 PM EST [facility] BUN, Plasma 19 8 - 23 mg/dL 08/10/2022 3:27 PM EST [facility] Creatinine, Plasma 0.96 0.60 - 1.10 mg/dL 08/10/2022 3:27 PM EST [facility] BUN/Creatinine Ratio 20 08/10/2022 3:27 PM EST [facility] Sodium, Plasma 139 136 - 145 mmol/L 08/10/2022 3:27 PM [facility] Potassium, Plasma 3.9 3.7 - 4.8 mmol/L 08/10/2022 3:27 PM [facility] Comment:Reference range for Serum potassium is 0.2 to 0.5 mmol/L higher than Plasma range. Chloride, Plasma 101 97 - 107 mmol/L 08/10/2022 3:27 PM [facility] CO2, Plasma 27 22 - 29 mmol/L 08/10/2022 3:27 PM [facility] Anion Gap 11 6 - 16 mmol/L 08/10/2022 3:27 PM [facility] Total Calcium, Plasma 9.7 8.9 - 10.2 mg/dL 08/10/2022 3:27 PM [facility] Total Protein 6.7 6.3 - 7.9 g/dL 08/10/2022 3:27 PM [facility] Albumin, Plasma 4.0 3.5 - 5.2 g/dL 08/10/2022 3:27 PM [facility] AST, Plasma 15 9 - 36 U/L 08/10/2022 3:27 PM [facility] ALT, Plasma 10 8 - 33 U/L 08/10/2022 3:27 PM [facility] Alkaline Phosphatase, Plasma 67 46 - 142 U/L 08/10/2022 3:27 PM [facility] Total Bilirubin, Plasma 0.3 0.2 - 1.1 mg/dL 08/10/2022 3:27 PM [facility] eGFRcr 61.4 mL/min/1.7 3m*2 08/10/2022 3:27 PM [facility] Comment: Reported eGFRcr in mL/min/1.73m2 is based the CKD-EPI 2021 equation that does not use a race coefficient. Effective 02/23/22 our laboratory changed the eGFR calculation to the CKD-EPI 2021 equation from the previously reported eGFR, based on the MDRD equation. ??For comparisons between the two equations, please see laboratory website: ??[email or web address] Blood Blood sample taken from central line / Unknown (Port) Long-term Catheter / Unknown 08/10/2022 2:08 PM EST 08/10/2022 2:56 PM EST Penny Dodson MD LAB BLOOD ORDERABLES Final Result [facility] [address] [place] [address] * (ABNORMAL) CBC and differential (08/10/2022 2:08 PM EST) WBC Count 4.56 3.70 - 10.30 10*3/uL LAB HEMATOLOGY METHOD 08/10/2022 3:06 PM EST [facility] RBC Count 4.02 3.90 - 5.20 10*6/uL LAB HEMATOLOGY METHOD 08/10/2022 3:06 PM EST [facility] HGB 13.0 11.2 - 15.7 g/dL LAB HEMATOLOGY METHOD 08/10/2022 3:06 PM EST [facility] HCT 39.9 34.0 - 45.0 % LAB HEMATOLOGY METHOD 08/10/2022 3:06 PM EST [facility] Platelet Count 216 155 - 369 10*3/uL LAB HEMATOLOGY METHOD 08/10/2022 3:06 PM EST [facility] MCV 99(H) 79 - 98 fL LAB HEMATOLOGY METHOD 08/10/2022 3:06 PM EST [facility] MCH 32.3(H) 26.0 - 32.0 pg LAB HEMATOLOGY METHOD 08/10/2022 3:06 PM EST [facility] MCHC 32.6 30.7 - 35.5 g/dL LAB HEMATOLOGY METHOD 08/10/2022 3:06 PM EST [facility] RDW 14.6(H) 11.5 - 14.5 % LAB HEMATOLOGY METHOD 08/10/2022 3:06 PM EST [facility] MPV 9.9 8.8 - 12.5 fL LAB HEMATOLOGY METHOD 08/10/2022 3:06 PM EST [facility] nRBC 0.0 <=0.0 per 100 WBCs LAB HEMATOLOGY METHOD 08/10/2022 3:06 PM EST [facility] Differential Type Automated LAB HEMATOLOGY METHOD 08/10/2022 3:06 PM EST [facility] Neutrophils % 65.0 % LAB HEMATOLOGY METHOD 08/10/2022 3:06 PM EST [facility] Lymphocytes % 22.0 % LAB HEMATOLOGY METHOD 08/10/2022 3:06 PM EST [facility] Monocytes % 5.0 % LAB HEMATOLOGY METHOD 08/10/2022 3:06 PM EST [facility] Eosinophils % 6.0 % LAB HEMATOLOGY METHOD 08/10/2022 3:06 PM EST [facility] Basophils % 1.0 % LAB HEMATOLOGY METHOD 08/10/2022 3:06 PM EST [facility] Immature Granulocytes % 1.0 % LAB HEMATOLOGY METHOD 08/10/2022 3:06 PM EST [facility] Neutrophils Absolute 2.97 1.60 - 6.10 10*3/uL LAB HEMATOLOGY METHOD 08/10/2022 3:06 PM EST [facility] Lymphocytes Absolute 1.02(L) 1.20 - 3.90 10*3/uL LAB HEMATOLOGY METHOD 08/10/2022 3:06 PM EST [facility] Monocytes Absolute 0.23(L) 0.30 - 0.90 10*3/uL LAB HEMATOLOGY METHOD 08/10/2022 3:06 PM EST [facility] Eosinophils Absolute 0.27 0.00 - 0.50 10*3/uL LAB HEMATOLOGY METHOD 08/10/2022 3:06 PM EST [facility] Basophils Absolute 0.04 0.00 - 0.10 10*3/uL LAB HEMATOLOGY METHOD 08/10/2022 3:06 PM EST [facility] Immature Granulocytes Absolute 0.03 0.00 - 0.06 10*3/uL LAB HEMATOLOGY METHOD 08/10/2022 3:06 PM EST [facility] Blood Blood sample taken from central line / Unknown (Port) Long-term Catheter / Unknown 08/10/2022 2:08 PM EST 08/10/2022 2:56 PM EST Narrative [facility] - 08/10/2022 3:06 PM EST Therapeutic decision making should be based on absolute values, rather than percentages. us Penny Dodson MD LAB BLOOD ORDERABLES Final Result [facility] [address] [place] [address] * CT Abdomen Pelvis w IV Contrast [...] W IV CONTRAST ordered by PENNY HUTCHINS HARROLD, [id number] CLINICAL INDICATION: Ovarian cancer, assess treatment response [...] W IV CONTRAST ordered by PENNY HUTCHINS HARROLD,[id number] CLINICAL INDICATION: Ovarian cancer, assess treatment response [...] W IV CONTRAST ordered by PENNY DODSON, [id number] CLINICAL INDICATION: Ovarian cancer, assess treatment response [...] W IV CONTRAST ordered by PENNY HUTCHINS HARROLD,[id number] CLINICAL INDICATION: Ovarian cancer, assess treatment response [...] IMG CT PROCEDURES Fin al Result * (ABNORMAL) Urinalysis, manual only (07/20/2022 1:23 PM EST) Color, Urine Yellow LAB URINALYSIS - AUTOMATED METHOD 07/20/2022 2:20 PM EST [facility] Clarity, Urine Clear LAB URINALYSIS - AUTOMATED METHOD 07/20/2022 2:20 PM EST [facility] Spec [place], Urine 1.009 <=1.005 to >=1.030 LAB URINALYSIS - AUTOMATED METHOD 07/20/2022 2:20 PM EST [facility] pH, Urine 5.0 4.5 to 8 LAB URINALYSIS - AUTOMATED METHOD 07/20/2022 2:20 PM EST [facility] Protein, Urine Negative Negative mg/dL LAB URINALYSIS - AUTOMATED METHOD 07/20/2022 2:20 PM EST [facility] Glucose, Urine Negative Negative mg/dL LAB URINALYSIS - AUTOMATED METHOD 07/20/2022 2:20 PM EST [facility] Ketones, Urine Negative Negative mg/dL LAB URINALYSIS - AUTOMATED METHOD 07/20/2022 2:20 PM EST [facility] Blood, Urine Negative Negative LAB URINALYSIS - AUTOMATED METHOD 07/20/2022 2:20 PM EST [facility] Bilirubin, Urine Negative Negative LAB URINALYSIS - AUTOMATED METHOD 07/20/2022 2:20 PM EST [facility] Urobilinogen, Urine 0.2 0.2 to 1.0 mg/dL LAB URINALYSIS - AUTOMATED METHOD 07/20/2022 2:20 PM EST [facility] Leukocytes, Urine Trace(A) Negative LAB URINALYSIS - AUTOMATED METHOD 07/20/2022 2:20 PM EST [facility] Nitrite, Urine Negative Negative LAB URINALYSIS - AUTOMATED METHOD 07/20/2022 2:20 PM EST [facility] Urine Urine specimen obtained by clean catch procedure / Unknown Non-blood Collection / Unknown 07/20/2022 1:23 PM EST 07/20/2022 1:50 PM EST Penny Dodson MD LAB URINE ORDERABLES Final Result Performing Organization Address City/[facility] Co de Phone Number [facility] [address] [place] [address] * CA 125 (07/20/2022 1:23 PM EST) CA 125 6.23 <=38.00 U/mL 07/20/2022 2:53 PM EST [facility] Blood Blood sample taken from central line / Unknown (Port) Long-term Catheter / Unknown 07/20/2022 1:23 PM EST 07/20/2022 2:17 PM EST Narrative [facility] - 07/20/2022 2:53 PM EST Performed by Stephie electrochemiluminescent immunoassay. Results obtained with different test methods or kits cannot be used interchangeably. Penny Dodson MD LAB BLOOD ORDERABLES Final Result Performing Organization Address City/[facility] Co de Phone Number [facility] [address] [place] [address] * (ABNORMAL) Comprehensive metabolic panel (07/20/2022 1:23 PM EST) Glucose, Plasma 83 74 - 99 mg/dL 07/20/2022 2:46 PM EST [facility] BUN, Plasma 24(H) 8 - 23 mg/dL 07/20/2022 2:46 PM EST [facility] Creatinine, Plasma 0.87 0.60 - 1.10 mg/dL 07/20/2022 2:46 PM EST [facility] BUN/Creatinine Ratio 28 07/20/2022 2:46 PM EST [facility] Sodium, Plasma 139 136 - 145 mmol/L 07/20/2022 2:46 PM EST [facility] Potassium, Plasma 4.1 3.7 - 4.8 mmol/L 07/20/2022 2:46 PM EST [facility] Comment:Reference range for Serum potassium is 0.2 to 0.5 mmol/L higher than Plasma range. Chloride, Plasma 101 97 - 107 mmol/L 07/20/2022 2:46 PM EST [facility] CO2, Plasma 25 22 - 29 mmol/L 07/20/2022 2:46 PM EST [facility] Anion Gap 13 6 - 16 mmol/L 07/20/2022 2:46 PM EST [facility] Total Calcium, Plasma 10.0 8.9 - 10.2 mg/dL 07/20/2022 2:46 PM EST [facility] Total Protein 7.1 6.3 - 7.9 g/dL 07/20/2022 2:46 PM EST [facility] Albumin, Plasma 4.3 3.5 - 5.2 g/dL 07/20/2022 2:46 PM EST [facility] AST, Plasma 20 9 - 36 U/L 07/20/2022 2:46 PM EST [facility] ALT, Plasma 14 8 - 33 U/L 07/20/2022 2:46 PM EST [facility] Alkaline Phosphatase, Plasma 79 46 - 142 U/L 07/20/2022 2:46 PM EST [facility] Total Bilirubin, Plasma 0.4 0.2 - 1.1 mg/dL 07/20/2022 2:46 PM EST [facility] eGFRcr 69.1 mL/min/1.7 3m*2 07/20/2022 2:46 PM EST [facility] Comment: Reported eGFRcr in mL/min/1.73m2 is based the CKD-EPI 2021 equation that does not use a race coefficient. Effective 02/23/22 our laboratory changed the eGFR calculation to the CKD-EPI 2021 equation from the previously reported eGFR, based on the MDRD equation. ??For comparisons between the two equations, please see laboratory website: ??[email or web address] Blood Blood sample taken from central line / Unknown (Port) Long-term Catheter / Unknown 07/20/2022 1:23 PM EST 07/20/2022 2:17 PM EST us Penny Dodson MD LAB BLOOD ORDERABLES Final Result [facility] [address] [place] [address] * (ABNORMAL) CBC and differential (07/20/2022 1:23 PM EST) WBC Count 4.60 3.70 - 10.30 10*3/uL LAB HEMATOLOGY METHOD 07/20/2022 1:45 PM EST [facility] RBC Count 4.21 3.90 - 5.20 10*6/uL LAB HEMATOLOGY METHOD 07/20/2022 1:45 PM EST [facility] HGB 13.5 11.2 - 15.7 g/dL LAB HEMATOLOGY METHOD 07/20/2022 1:45 PM EST [facility] HCT 42.0 34.0 - 45.0 % LAB HEMATOLOGY METHOD 07/20/2022 1:45 PM EST [facility] Platelet Count 227 155 - 369 10*3/uL LAB HEMATOLOGY METHOD 07/20/2022 1:45 PM EST [facility] MCV 100(H) 79 - 98 fL LAB HEMATOLOGY METHOD 07/20/2022 1:45 PM EST [facility] MCH 32.1(H) 26.0 - 32.0 pg LAB HEMATOLOGY METHOD 07/20/2022 1:45 PM EST [facility] MCHC 32.1 30.7 - 35.5 g/dL LAB HEMATOLOGY METHOD 07/20/2022 1:45 PM EST [facility] RDW 15.0(H) 11.5 - 14.5 % LAB HEMATOLOGY METHOD 07/20/2022 1:45 PM EST [facility] MPV 9.6 8.8 - 12.5 fL LAB HEMATOLOGY METHOD 07/20/2022 1:45 PM EST [facility] nRBC 0.0 <=0.0 per 100 WBCs LAB HEMATOLOGY METHOD 07/20/2022 1:45 PM EST [facility] Differential Type Automated LAB HEMATOLOGY METHOD 07/20/2022 1:45 PM EST [facility] Neutrophils % 63.0 % LAB HEMATOLOGY METHOD 07/20/2022 1:45 PM EST [facility] Lymphocytes % 23.0 % LAB HEMATOLOGY METHOD 07/20/2022 1:45 PM EST [facility] Monocytes % 9.0 % LAB HEMATOLOGY METHOD 07/20/2022 1:45 PM EST [facility] Eosinophils % 4.0 % LAB HEMATOLOGY METHOD 07/20/2022 1:45 PM [facility] Basophils % 1.0 % LAB HEMATOLOGY METHOD 07/20/2022 1:45 PM EST [facility] Immature Granulocytes % 0.0 % LAB HEMATOLOGY METHOD 07/20/2022 1:45 PM EST [facility] Neutrophils Absolute 2.91 1.60 - 6.10 10*3/uL LAB HEMATOLOGY METHOD 07/20/2022 1:45 PM EST [facility] Lymphocytes Absolute 1.06(L) 1.20 - 3.90 10*3/uL LAB HEMATOLOGY METHOD 07/20/2022 1:45 PM EST [facility] Monocytes Absolute 0.39 0.30 - 0.90 10*3/uL LAB HEMATOLOGY METHOD 07/20/2022 1:45 PM EST [facility] Eosinophils Absolute 0.19 0.00 - 0.50 10*3/uL LAB HEMATOLOGY METHOD 07/20/2022 1:45 PM EST [facility] Basophils Absolute 0.03 0.00 - 0.10 10*3/uL LAB HEMATOLOGY METHOD 07/20/2022 1:45 PM EST [facility] Immature Granulocytes Absolute 0.02 0.00 - 0.06 10*3/uL LAB HEMATOLOGY METHOD 07/20/2022 1:45 PM EST [facility] Blood Blood sample taken from central line / Unknown (Port) Long-term Catheter / Unknown 07/20/2022 1:23 PM EST 07/20/2022 1:43 PM EST Narrative [facility] - 07/20/2022 1:45 PM EST Therapeutic decision making should be based on absolute values, rather than percentages. us Penny Dodson MD LAB BLOOD ORDERABLES Final Result [facility] [address] [place] [id number] documented in this encounter Visit Diagnoses Diagnosis Carcinoma of fallopian tube, unspecified laterality (CMS/HCC)- Primary Encounter for antineoplastic chemotherapy Obesity (BMI 30-39.9) Neuropathy Mononeuritis of unspecified site Chest pain, unspecified type Carcinoma of fallopian tube, unspecified laterality (CMS/HCC) documented in this encounter Additional Health Concerns Assessment Noted Time A fall risk assessment has been complete d for the patient 07/20/2022 1:31 PM EST documented as of this encounter Care Teams Stem Maker Relationship Specialty Start Date End Date Flaquita Dorsey DO [address] [place], [place] [id number] PCP - General 12/14/21 Aliyah Valencia MD [address] [place] [address] Referring Physician 03/10/21 documented as of this encounter
--- OUTSIDE RECORDS SUMMARY | 2024-07-10 12:00 | XMS_ITS | Encounter Summary ---
Author Organization [facility] Address [address] [place] [address] Care Team Providers Care Newspaper Stuffer Name Role Phone Aliyah Valencia MD Unavailable [phone] Flaquita Dorsey DO Primary Care Provider [phone] Reason for Referral * Imaging (Routine) - Closed Specialty Diagnoses / Procedures [facility]erred To Contact Radiology Diagnoses S/P cardiac cath Chest pain, unspecified type Procedures CT Angio Cardiac Coronary Arteries Antolin Hunt MD [address] [place] [address] Phone: tel: fax: Referral ID Status Reason Start Date Expiration Date Visits Re quested Visits Authorized [id number] Closed 07/19/2022 01/18/2024 1 1 * Imaging (Routine) - Closed Specialty Diagnoses / Procedures [facility]erred To Contact Cardiology Diagnoses S/P cardiac cath Chest pain, unspecified type Procedures Echo, Adult Transthoracic Complete Antolin Hunt MD [address] [place] [address] Phone: tel: fax: Referral ID Status Reason Start Date Expiration Date V isits Requested Visits Authorized [id number] Closed Perform Procedure 07/19/2022 01/18/2024 1 1 Reason for Visit * Reason Comments Follow-up New Patient * Consultation (Routine) - Closed Specialty Diagnoses / Procedures Referred By [facility] t Referred To Contact Hematology and Oncology Diagnoses Carcinoma of fallopian tube, unspecified laterality (CMS/HCC) S/P cardiac cath Penelope Carmnoa MD [address] [place] [address] Phone: tel: fax: [facility] [address] [place] [address] Phone: tel: fax: Referral ID Status Reason Start Date Expiration Date V isits Requested Visits Authorized [id number] Closed Specialty Services Required 06/27/2022 12/27/2023 1 1 Encounter Details Date Type Department Care Team ([facility] st Contact Info) Description 07/19/2022 8:00 AM EST Consult [facility] [address] [place] [address] Yoel Herndon MD Chest pain, unspecified type (Primary Dx); Carcinoma of fallopian tube, unspecified laterality (CMS/HCC); S/P cardiac cath; Hypertensive heart and chronic kidney disease with heart failure and with stage 5 chronic kidney disease, or end stage renal disease (CMS/HCC) Social History Tobacco Use Types Packs/Day [...] Sign Reading Time Taken Comments Blood Pressure 120/77 07/19/2022 7:56 AM EST Pulse 85 07/19/2022 7:56 AM EST Temperature - - Respiratory Rate 18 07/19/2022 7:56 AM EST Oxygen Saturation 97% 07/19/2022 7:56 AM EST Inhaled Oxygen Concentration - - Weight 80.6 kg (177 lb 11.1 oz) 07/19/2022 7:56 AM EST Height 160 cm (5' 3 ) 07/19/2022 7:56 AM EST Body Mass Index 31.48 07/19/2022 7:56 AM EST documented in this encounter Miscellaneous Notes * Clinician Note - Tammy Hayes RN - 07/19/2022 8:00 AM EST CARDIO-ONCOLOGY SUMMARY REFERRING: Penelope Carmona * CURRENT ONCOLOGY DIAGNOSIS: ER/AK+, HER2- left breat cancer REASON FOR VISIT: Chest pain, second opinion for heart cath ONCOLOGY HISTORY: Diagnosed with ER/AK+, 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 Received neoadjuvant chemotherapy with carboplatin and taxol 03/2018 followed by BSO and omentectomyon 06/18/2018 and adjuvant carbotaxel. Recurrence in 03/2019. Treated with carbo initially followed by olaparib x 6 cycles 05/18/2019 Started Parp inhibitor 09/2019. Stopped 02/20/2020 due to toxicity Disease progression noted on CT 04/2020 XRT 07/2020 for vaginal cuff recurrence - 3750 cGy Third recurrence noted 06/30/2021 Initiated Carboplatin x 6 cycles 08/04/2021 Fourth recurrence noted on CT 04/11/2022 Initiated Bevacizumab and cyclophosphamide initiated 04/08/2022. Bevacizumab on hold due to patient admitted with chest pain. Received 4/6 cycles. RISK STRATIFICATION: Obesity HTN HLD CARDIAC TESTING COMPLETED: Echo 05/12/2019- EF 55%, Aortic valve with moderate calcification and moderate stenosis, AV area 1.0 cm2 CARDIAC MEDICATION: aspirin 81 mg, Oral, Daily denosumab (Prolia) 60 MG/ML injection Prolia furosemide (LASIX) 20 mg, Oral, Daily lisinopril 5 mg, Oral, Daily potassium chloride ER (Micro-K) 10 MEQ ER capsule 10 mEq, Oral, 2 times daily RT simvastatin (ZOCOR) 40 mg, Oral, Nightly * Addendum Note - Antolin Hunt MD - 07/19/2022 8:00 AM ESTAddended by: ANTOLIN HUNT on: 07/19/2022 05:27 PM Modules accepted: Level of Service * Progress Notes - Yoel Herndon MD - 07/19/2022 8:00 AM EST Images from the original note were not included. Cardio-Oncology Clinic CC: Chief Complaint Patient presents with Follow-up New Patient HPI: Ms.Donna Laura John is a 76 y.o. female w PMH of left sided ER+, AK+, and HER2-, HTN, HLD, obesity seen today in the Cardio-Oncology Clinic @ [facility] in consultation for chest discomfort at the request of Dr. Penelope Dodson MD. 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 She says that her check engine light came on and she drove to the fire alarm mechanic for a check up. 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 She has had one occurrence of chest discomfort since the ED visit, she was sitting watching TV while it occurred. Sheended up taking a sublingual nitroglycerin that resolved the chest pain. Review of symptoms 14 Point ROS reviewed and is otherwise negative except as per HPI and what is noted above. Past Medical History: Past Medical History: Diagnosis Date Abnormal uterine and vaginal bleeding, unspecified Abnormal vaginal bleeding Carcinoma of fallopian tube ([facility]/HCC) 09/26/2019 Malignant neoplasm of unspecified fallopian tube Cervical cancer ([facility]) 03/15/2018 Malignant neoplasm of cervix [...] LUMPECTOMY N/A Lumpectomy of left breast from [facility] CHOLECYSTECTOMY N/A Cholecystectomy from [facility] EYE SURGERY N/A Eye surgery from [facility] HEMORRHOID SURGERY N/A Hemorrhoidectomy from [facility] HYSTERECTOMY N/A Hysterectomy from [facility] OTHER SURGICAL HISTORY N/A Surgical removal of lesion of finger from [facility] PARTIAL HYSTERECTOMY N/A Partial hysterectomy from [facility] ROTATOR CUFF REPAIR N/A Repair of rotator cuff of right shoulder from [facility] Medications: Current Outpatient Medications Medication Sig Dispense Refill aspirin 81 MG chewable tablet Chew 81 mg 1 (one) time each day. biotin 1000 MCG tablet Take 1,000 mcg by mouth 1 (one) time each day. cyclophosphamide (Cytoxan) 50 MG capsule capsule Take 1 capsule (50 mg total) by mouth 1 (one) timeeach day. 30 capsule 2 ergocalciferol (Vitamin D-2) 1.25 MG (87118 UT) capsule Take 50,000 Units by mouth [...] day. gabapentin (Neurontin) 300 MG capsule Take 1 capsule (300 mg total) by mouth every night. 30 capsule 5 ketoconazole (NIZOral) 2 % shampoo ketoconazole (NIZOral) 2 % shampoo ketoconazole 2 [...] Take 40 mg by mouth every night. triamcinolone (Kenalog) 0.025 % cream Apply 1 application topically 2 (two) times a day. denosumab (Prolia) 60 MG/ML injection Prolia (Patient not taking: Reported on 07/19/2022) famciclovir (Famvir) 125 MG tablet Take 125 mg by mouth 1 (one) time each day. (Patient not taking:Reported on 07/19/2022) fexofenadine (Mehreen) 180 MG tablet Take 180 mg by mouth 1 (one) time each day. (Patient not taking: Reported on 07/19/2022) hydrOXYzine HCl (Atarax) 25 MG tablet (Patient not taking: Reported on 07/19/2022) metoprolol tartrate (Lopressor) 50 MG tablet Take 1 tablet (50 mg total) by mouth 2 (two) times a day. Take the night before CT, and morning of CT 2 tablet 0 senna-docusate sodium (Senokot-S) 8.6-50 MG tablet 2 tab(s) orally 2 times a day (Patient not taking: Reported on 07/19/2022) No current facility-administered medications for this visit. Family History: family history includes Breast cancer in her cousin and cousin; Cardiac disorder in her brother, father, and mother; Colon cancer in an other family member; Diabetes in her brother and sister; Hypertension in her brother, sister, and another family member; Prostate cancer in her father. Social History: reports that she has quit smoking. She has quit using smokeless tobacco. She reports that she does not currently use alcohol. She reports that she does not use drugs. Physical Exam: Visit Vitals BP 120/77 Pulse 85 Ht 1.6 m (5' 3 ) Wt 80.6 kg (177 lb 11.1 oz) SpO2 97% BMI 31.48 kg/m?? Constitutional: Patient appears well; no acute [...] sinus rhythm, low voltage, borderline ECG Imaging: No echocardiogram results found for the past 12 months Labs: Lab Results Component Value Date HGB 13.1 06/27/2022 HCT 40.5 06/27/2022 PLT 216 06/27/2022 ALT 25 06/27/2022 AST 18 06/27/2022 NA 138 06/27/2022 K 3.9 06/27/2022 CREATININE 0.84 06/27/2022 BUN 27 (H) 06/27/2022 CO2 25 06/27/2022 Lab Results Component Value Date GLUCOSE 92 06/27/2022 CALCIUM 9.9 06/27/2022 NA 138 06/27/2022 K 3.9 06/27/2022 CO2 25 06/27/2022 CL 99 06/27/2022 BUN 27 (H) 06/27/2022 CREATININE 0.84 06/27/2022 Lab Results Component Value Date WBC 4.69 06/27/2022 HGB 13.1 06/27/2022 HCT 40.5 06/27/2022 MCV 99 (H) 06/27/2022 PLT 216 06/27/2022 Risk Stratification: The ASCVD Risk score (José Miguel STAFFORD, et al., 2019) failed to calculate for the following reasons: Cannot find a previous HDL lab Cannot find a previous total cholesterol lab Impression: Daniela was seen today for follow-up and new patient. Diagnoses and all orders for this visit: Chest pain, unspecified type - ECG Adult (Now - Performed in your clinic) - Echo, Adult Transthoracic Complete; Future - CT Angio Cardiac Coronary Arteries; Future Carcinoma of fallopian tube, unspecified laterality (CMS/HCC) - Ambulatory referral to Cardiology-Oncology - N-Terminal Probnp; Future S/P cardiac cath - Ambulatory referral to Cardiology-Oncology - Echo, Adult Transthoracic Complete; Future - CT Angio Cardiac Coronary Arteries; Future Hypertensive heart and chronic kidney disease with heart failure and with stage 5 chronic kidney disease, or end stage renal disease (CMS/HCC) - N-Terminal Probnp; Future Other orders - metoprolol tartrate (Lopressor) 50 MG tablet; Take 1 tablet (50 mg total) by mouth 2 (two) times a day. Take the night before CT, and morning of CT # Chest discomfort # Coronary calcifications # [...] return of her symptoms with chemotherapy infusions. We willcontinue to monitor the patient with ongoing chemotherapy agent use and her comorbid conditions. Plan: Orders Placed This Encounter Procedures CT Angio Cardiac Coronary Arteries Standing Status: Future Standing Expiration Date: 01/19/2024 Order Specific Question: Specific protocol needed? Answer: Radiology to determine Order Specific Question: What is the patient's sedation requirement? Answer: No Sedation Order Specific Question: Results Release Delay - 72 Hours Answer: 72 Hours N-Terminal Probnp Standing Status: Future Standing Expiration Date: 07/19/2023 Order Specific Question: Release to patient in [facility] Answer: Immediate ECG Adult (Now - Performed in your clinic) Order Specific Question: Reason for Exam: Answer: chest pain Echo, Adult Transthoracic Complete Standing Status: Future Standing Expiration Date: 07/19/2024 Order Specific Question: Is this exam for research? Answer: No Order Specific Question: [facility] Answer: Immediate - CCTA ordered for the patient for recurrent typical chest pain syndrome - NT-proBNP ordered for baseline testing - TTE ordered to follow up for previously noted moderate in [address] Iqbal in 3 months. A total time of 35 minutes was spent by myself addressing the current illness, reviewing records (prior imaging, lab work, etc), and formulating a plan. The patient is agreeable to the plan and all pertinent questions were answered. Yoel Herndon MD Cosigned by Antolin Hunt MD at 07/19/2022 5:27 PM EST Associated attestation - Antolin Hunt MD - 07/19/2022 5:27 PM EST I saw and evaluated the patient with the resident/fellow. I discussed the case with the resident/fellow and agree with the findings and plan as documented. documented in this encounter Plan of Treatment Upcoming Encounters Date Type Department Care Team (Late st Contact Info) Description 08/05/2024 8:00 AM EST Office Visit [facility] [address] [place] [address] Penelope Carmona MD [address] [place] [address] 08/05/2024 9:30 AM EST Appointment [facility] [address] [place] [address] 02/26/2025 9:30 AM EDT Appointment [facility] [address] [place] [address] 02/26/2025 10:30 AM EDT Office Visit [facility] [address] [place] [address] Berenice Resendez, DISPATCH COORDINATOR [address] [place] [address] documented as of this encounter Procedures Procedure Name Priority Date/Time Associated Diagnosis Comments ECG ADULT Routine 07/19/2022 8:03 AM EST Chest pain, unspecified type documented in this [...] ANGIO CARDIAC CORONARY ARTERIES ordered by ANTOLIN HUNT, [id number] CLINICAL INDICATION: 76 years Female ??presents with complains of chest pain with clinical features suggesting myocardial ischemia Clinical Data Height: 161 cm Weight: 80 kg Risk Factors: Hypertension, CKD Relevant Cardiac Diagnostic Tests: None available at the time of review TECHNIQUE: Image Acquisition: A Dual source 192 MDCT scanner (Somatom Force, [employer]) was used for data acquisition. A [...] was reviewed interactively on an advanced workstation (Paperless Post) capable of 2 and 3 dimensional displays [...] ANGIO CARDIAC CORONARY ARTERIES ordered by ANTOLIN GARCÍA, [id number] CLINICAL INDICATION: 76 years Female presents with complains of chest pain with clinicalfeatures suggesting myocardial ischemia Clinical Data Height: 161 cm Weight: 80 kg Risk Factors: Hypertension, CKD Relevant Cardiac Diagnostic Tests: None available at the time of review TECHNIQUE: Image Acquisition: A Dual source 192 MDCT scanner (Somatom Force, Siemens [employer])was used for data acquisition. A non-contrast [...] Data wasreviewed interactively on an advanced workstation (Paperless Post) capable of 2and 3 dimensional displays in [...] Ludin Maynard MD on 08/17/2022 4:11 PM us nAtolin Hunt MD IMG CT PROCEDURES Final Result * ECHO, ADULT TRANSTHORACIC COMPLETE W/ STRAIN (08/05/2022 4:09 PM EST) BSA 1.83 m2 LORENZO ISCV LVIDd 42 mm LORENZO ISCV LVIDs 28 mm LORENZO ISCV IVSd 7 mm LORENZO ISCV LVPWd 9 mm LORENZO ISCV LV MASS(C)D 101 g LORENZO ISCV LV RWT 0.38 mm LORENZO ISCV LVOT diam 19 mm LORENZO ISCV LVOT AREA 2.8 cm2 LORENZO ISCV LV V1 VTI 19.1 cm LORENZO [...] LORENZO ISCV Weight 80.0 LORENZO ISCV PA AK(ACCEL) 54.5 mmHg LORENZO ISCV LV mean PG [...] there is no significant interval change noted. Antolin Hunt MD CV ECHO PROCEDURES Final Resul t * ECG Adult (Now - Performed in your clinic) (07/19/2022 8:03 AM EST) EKG DIAGNOSIS CLASS Borderline Normal MUSE ECG Ventricular Rate 87 BPM MUSE ECG Atrial Rate 87 BPM MUSE ECG AK Interval 148 ms MUSE ECG QRSD Interval 68 ms MUSE ECG QT Interval 356 ms MUSE ECG QTC Interval 428 ms MUSE ECG P [place] 56 degrees MUSE ECG R [place] 3 degrees MUSE ECG T Wave [place] 62 degrees MUSE ECG Diagnosis Normal sinus rhythm MUSE ECG Diagnosis Low voltage chest leads MUSE ECG Diagnosis Otherwise normal ECG MUSE ECG Diagnosis Confirmed by Venancio Lares ([id number]) on 07/19/2022 9:01:40 PM MUSE ECG 07/19/2022 8:03 AM EST 07/19/2022 9:01 PM EST Conrado Iqbal MD ECG ORDERABLES Final Result MUSE ECG documented in this encounter Visit Diagnoses Diagnosis Chest pain, unspecified type- Primary Carcinoma of fallopian tube, unspecified laterality (CMS/HCC) S/P cardiac cath Other postprocedural status Hypertensive heart and chronic kidney disease with heart failure and with stage 5 chronic kidney disease, or end stage renal disease (CMS/HCC) S/P cardiac cath Other postprocedural status Chest pain, unspecified type S/P cardiac cath Other postprocedural status Chest pain, unspecified type documented in this encounter Additional Health Concerns Assessment Noted Time A fall risk assessment has been complete d for the patient 06/27/2022 10:09 AM EST documented as of this encounter Care Teams Newspaper Stuffer Relationship Specialty Start Date End Date Flaquita Dorsey DO [address] [place] [id number] PCP - General 12/14/21 Aliyah Valencia MD [address] [place] [address] Referring Physician 03/10/21 documented as of this encounter
--- OUTSIDE RECORDS SUMMARY | 2024-07-10 12:00 | XMS_ITS | Encounter Summary ---
Author Organization Healthcare Address [address] [place] [address] Care Team Providers Care Graphic Production Artist Name Role Phone Aliyah Valencia MD Unavailable [phone] Flaquita Dorsey DO Primary Care Provider [phone] Reason for Visit * Reason Comments Chemotherapy Encounter Details Date Type Department Care Team ([facility] st Contact Info) Description 06/27/2022 10:15 AM EST Office Visit [facility] [address] [place] [address] Penny Carmona MD [address] [facility] [address] [place] [address] Carcinoma of fallopian tube, unspecified laterality (CMS/HCC) (Primary Dx); Obesity (BMI 30-39.9); Neuropathy; Chest tightness Social History Tobacco Use Types Packs/Day Years [...] Sign Reading Time Taken Comments Blood Pressure 121/70 06/27/2022 10:08 AM EST Pulse 77 06/27/2022 10:08 AM EST Temperature 36.2 ??C (97.1 ??F) 06/27/2022 1 0:08 AM EST Respiratory Rate - - Oxygen Saturation - - Inhaled Oxygen Concentration - - Weight 81.1 kg (178 lb 12.7 oz) 022 10:08 AM EST Height - - Body Mass Index 31.17 06/06/2022 3:35 PM EST documented in this encounter Miscellaneous Notes * Progress Notes - Penny Carmona MD - 06/27/2022 10:15 AM EST Primary Care Provider: Flaquita Dorsey DO History of Present Illness: Chief complaint: 76 yo female here for cycle 4 Dana/oral cytoxan (Dana held). Oncologic history is as follows: Oncology History [...] she underwent a left needle localized lumpectomy. [place] lymph node biopsy was not performed as [...] vagina). Initiated neoadjuvant chemo with carbo/Taxol per ASSOCIATE SCHOOL PSYCHOLOGIST followed by BSO/Omentectomy and adjuvant Carbotaxol. Recurrence in March 2019. Treated with carbo initially followed by Olaparib. 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 She is currently off of therapy. She follows with Dr. Banerjee in [place] [employer] [facility]/Onc. 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 Recurrence - First recurrence, tolowa dee-ni' sensitive - CT 04/10/19 with 3 cmlesion at cuff - Ca125 12 (from 8) - MTB discussion: recommend trial if progression on tolowa dee-ni' regimen or consider Parp for RAD 51 [...] - Required lap ccy for choledocolithiasis 2019 ([place]) - Ca125: 85-9-7-7-7-9-8 - Started Parp inhibitor 09/2019 - Dose [...] 7.49 () 06/30/2021 Recurrence - Third recurrence, tolowa dee-ni' sensitive - CT 06/30/2021 shows vaginal cuff [...] disease seen 04/11/2022 Recurrence - Fourth recurrence, tolowa dee-ni' resistant - CT 04/11/2022 with increase in size of mass at apex of vagina to 5 cm from 3.6 cm 04/18/2022 - Chemotherapy - Dana, oral Cytoxan started 04/25/2022 (held 04/18 for 24 hr urine) - Ca125 12.2-6.21-6.37-5.99 05/16/2022 Genetic Testing Caris Actionable mutations: ER (Hormone therapy), ALEKSEY High (Parp), PDL1 ([place]) Other findings: Rad51D, TP53, MMR proficient, MSI stable, TMB low Interval updates to history: Oncologic treatment history as described above reviewed today as well as PMH/PSH/Meds/All/SH/FH, with updates made as appropriate. Patient is here today for cycle 4 of Dana (held) and to monitor toxicity of oral Cytoxan. Patient reports that she was hospitalized for 1 night over break (06/22/2022). She reported chest tightness as well a nausea and diaphoresis and this prompted an ED visit. She had blood work, and EKG and an xray. Ddimer was noted to be slightly high (0.69). Troponin negative and COVID neg. EKG with no acute ST changes. Cardiology consulted and recommended admission for monitoring due to her co-morbid conditions. She was started on a beta kari and nitroglycerin. Symptoms resolved. They recommended a diagnostic heart cath. She declined. She has been scheduled for follow up with the solar sales energy advisor ([facility]) and has been told that they would like to do a heart cath in next 30 days. She is uncertain about this. Otherwise feeling well today without acute complaint. PMH: h/o breast cancer x2, ?cervical cancer, [...] years ago, no drugs, retired, lives in [place]. FamHx: Father-prostate, MGma-colon. ROS: 14 pt ROS performed with pertinent positives and negatives as noted in HPI. ROS otherwise negative Objective Physical Exam: Vital Signs for this encounter: BSA: 1.91 meters squared Visit Vitals BP 121/70 Pulse 77 Temp 36.2 ??C (97.1 ??F) Wt 81.1 kg (178 lb 12.7 oz) LMP 11/17/1981 (Approximate) BMI 31.17 kg/m?? OB Status Hysterectomy Smoking Status Former BSA 1.91 m?? Physical Exam Vitals and nursing note [...] W IV CONTRAST ordered by PENNY BANERJEE MELROSE, [id number] CLINICAL INDICATION: Ovarian cancer, assess treatment response [...] followed by radiation for additional recurrence - [place] sensitive recurrence diagnosed 06/2021. - Completed 6 [...] other disease - Caris testing requested - [place] resistant (5 month interval). Will not use Carbo again. Offered traditional chemo (Gemzar, DD Taxol, Doxil) vs Dana/oral Cytoxan. Elects for Dana/oral cytoxan - Hold fourth cycle of Dana today due to incomplete chest pain workup - have some concern for treating with a VEGF inhibitor that can raise BP in this clinical scenario. Ok to continue oral cytoxan. - Will refer to cardio-oncology for second opinion on need for heart cath to safely continue Dana. - Continue to follow Ca125 qcycle and consider imaging q 3-4 cycles. Will check imaging prior to cycle 5. 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 Problem 4: History of left breast cancer x 2 Assessment and plan 4: - s/p anastrazole. No current signs of disease Problem 5: Neuropathy Assessment and plan 5: - Treatment related. Worst at night. - Will not use Taxol again. - Continue Gabapentin. Refilled today. Nghia reviewed. Problem 6: h/o syncope episodes and carotid stenosis, now with chest tightness over 2021 Assessment and plan 6: - Has been followed in past with cards at - Seen by cardiology at [facility] and acute workup negative but diagnostic cath recommended. Patient declined and uncertain about necessity of this - Hold Dana while assessing her cardiac risk - Plan second opinion with oncocardiology to assess need for further workup and safety of resuming Dana. Problem 7: Obesity Assessment and plan 7: - Body mass index is 31.17 kg/m??. - Affects all aspects of care [...] of prior documentation in preparation for visit, acquiring and reviewing records from hospitalization at OSH over , review of labs and any other test results, obtaining and reviewing medical history, appropriate focused physical exam, discussion of exam and/or test results, discussion of plan of care, lab orders, phlebotomy, and prescription refill/Nghia review MD ADRIANA Arana [facility] GYNECOLOGY [address] [facility] [address] [facility] [address] Dept: [phone] Dept Loc: [phone] documented in this encounter Plan of Treatment Upcoming Encounters Date Type Department Care Team (Late st Contact Info) Description 08/05/2024 8:00 AM EST Office Visit [facility] Gynecology [address] [facility] [address] [place] [address] Penny Carmona MD [address] [facility] [address] [facility] [address] [place] [address] 08/05/2024 9:30 AM EST Appointment [facility] Infusion Clinic 1 [address] [place] [address] 02/26/2025 9:30 AM EDT Appointment [facility] Breast Care Center [facility] [address] [facility] [address] [place] [address] 02/26/2025 10:30 AM EDT Office Visit [facility] Breast Care Center [address] [facility], 2nd [place] [address] Berenice Resendez, STUDENT ACCOUNTS COORDINATOR [address] [facility] [address] [facility] [address] [place] [address] documented as of this encounter Procedures Procedure Name Priority Date/Time Associated Diagnosis Comments CBC WITH AUTO DIFFERENTIAL Routine 06/27/2022 10:08 AM EST Carcinoma of fallopian tube, unspecified laterality (CMS/HCC) CA 125 Routine 06/27/2022 10:08 AM EST Carcinoma of fallopian tube, unspecified laterality (CMS/HCC) COMPREHENSIVE METABOLIC PANEL, PLASMA Routine 06/27/2022 10:08 AM EST Carcinoma of fallopian tube, unspecified laterality (CMS/HCC) documented in this encounter Results * CA 125 (06/27/2022 10:08 AM EST) CA 125 5.99 <=38.00 U/mL 06/27/2022 2:15 PM EST [facility] Blood Blood sample taken from central line / Unknown (Port) Long-term Catheter / Unknown 06/27/2022 10:08 AM EST 06/27/2022 11:07 AM EST Narrative [facility] - 06/27/2022 2:15 PM EST Performed by Stephie electrochemiluminescent immunoassay. Results obtained with different test methods or kits cannot be used interchangeably. us Penny Dodson MD LAB BLOOD ORDERABLES Final Result [facility] [address] [place] [address] * (ABNORMAL) Comprehensive metabolic panel (06/27/2022 10:08 AM EST) Glucose, Plasma 92 74 - 99 mg/dL 06/27/2022 11:38 AM EST [facility] BUN, Plasma 27(H) 8 - 23 mg/dL 06/27/2022 11:38 AM EST [facility] Creatinine, Plasma 0.84 0.60 - 1.10 mg/dL 06/27/2022 11:38 AM EST [facility] BUN/Creatinine Ratio 32 06/27/2022 11:38 AM EST [facility] Sodium, Plasma 138 136 - 145 mmol/L 06/27/2022 11:38 AM EST [facility] Potassium, Plasma 3.9 3.7 - 4.8 mmol/L 06/27/2022 11:38 AM EST [facility] Comment:Reference range for Serum potassium is 0.2 to 0.5 mmol/L higher than Plasma range. Chloride, Plasma 99 97 - 107 mmol/L 06/27/2022 11:38 AM EST [facility] CO2, Plasma 25 22 - 29 mmol/L 06/27/2022 11:38 AM EST [facility] Anion Gap 14 6 - 16 mmol/L 06/27/2022 11:38 AM EST [facility] Total Calcium, Plasma 9.9 8.9 - 10.2 mg/dL 06/27/2022 11:38 AM EST [facility] Total Protein 7.2 6.3 - 7.9 g/dL 06/27/2022 11:38 AM EST [facility] Albumin, Plasma 4.3 3.5 - 5.2 g/dL 06/27/2022 11:38 AM EST [facility] AST, Plasma 18 9 - 36 U/L 06/27/2022 11:38 AM EST [facility] ALT, Plasma 25 8 - 33 U/L 06/27/2022 11:38 AM EST [facility] Alkaline Phosphatase, Plasma 97 46 - 142 U/L 06/27/2022 11:38 AM EST [facility] Total Bilirubin, Plasma 0.4 0.2 - 1.1 mg/dL 06/27/2022 11:38 AM EST [facility] eGFRcr 72.1 mL/min/1.7 3m*2 06/27/2022 11:38 AM EST [facility] Comment: Reported eGFRcr in mL/min/1.73m2 is based the CKD-EPI 2020 equation that does not use a race coefficient. Effective 02/23/22 our laboratory changed the eGFR calculation to the CKD-EPI 202 equation from the previously reported eGFR, based on the MDRD equation. ??For comparisons between the two equations, please see laboratory website: ??[email or web address] Blood Blood sample taken from central line / Unknown (Port) Long-term Catheter / Unknown 06/27/2022 10:08 AM EST 06/27/2022 11:07 AM EST us Penny Dodson MD LAB BLOOD ORDERABLES Final Result [facility] [address] [place] [address] * (ABNORMAL) CBC and differential (06/27/2022 10:08 AM EST) WBC Count 4.69 3.70 - 10.30 10*3/uL LAB HEMATOLOGY METHOD 06/27/2022 10:30 AM EST [facility] RBC Count 4.10 3.90 - 5.20 10*6/uL LAB HEMATOLOGY METHOD 06/27/2022 10:30 AM EST [facility] HGB 13.1 11.2 - 15.7 g/dL LAB HEMATOLOGY METHOD 06/27/2022 10:30 AM EST [facility] HCT 40.5 34.0 - 45.0 % LAB HEMATOLOGY METHOD 06/27/2022 10:30 AM EST [facility] Platelet Count 216 155 - 369 10*3/uL LAB HEMATOLOGY METHOD 06/27/2022 10:30 AM EST [facility] MCV 99(H) 79 - 98 fL LAB HEMATOLOGY METHOD 06/27/2022 10:30 AM EST [facility] MCH 32.0 26.0 - 32.0 pg LAB HEMATOLOGY METHOD 06/27/2022 10:30 AM EST [facility] MCHC 32.3 30.7 - 35.5 g/dL LAB HEMATOLOGY METHOD 06/27/2022 10:30 AM EST [facility] RDW 15.1(H) 11.5 - 14.5 % LAB HEMATOLOGY METHOD 06/27/2022 10:30 AM EST [facility] MPV 9.7 8.8 - 12.5 fL LAB HEMATOLOGY METHOD 06/27/2022 10:30 AM EST [facility] nRBC 0.0 <=0.0 per 100 WBCs LAB HEMATOLOGY METHOD 06/27/2022 10:30 AM EST [facility] Differential Type Automated LAB HEMATOLOGY METHOD 06/27/2022 10:30 AM EST [facility] Neutrophils % 65.0 % LAB HEMATOLOGY METHOD 06/27/2022 10:30 AM EST [facility] Lymphocytes % 22.0 % LAB HEMATOLOGY METHOD 06/27/2022 10:30 AM EST [facility] Monocytes % 7.0 % LAB HEMATOLOGY METHOD 06/27/2022 10:30 AM EST [facility] Eosinophils % 5.0 % LAB HEMATOLOGY METHOD 06/27/2022 10:30 AM EST [facility] Basophils % 1.0 % LAB HEMATOLOGY METHOD 06/27/2022 10:30 AM EST [facility] Immature Granulocytes % 0.0 % LAB HEMATOLOGY METHOD 06/27/2022 10:30 AM EST [facility] Neutrophils Absolute 3.00 1.60 - 6.10 10*3/uL LAB HEMATOLOGY METHOD 06/27/2022 10:30 AM EST [facility] Lymphocytes Absolute 1.04(L) 1.20 - 3.90 10*3/uL LAB HEMATOLOGY METHOD 06/27/2022 10:30 AM EST [facility] Monocytes Absolute 0.34 0.30 - 0.90 10*3/uL LAB HEMATOLOGY METHOD 06/27/2022 10:30 AM EST [facility] Eosinophils Absolute 0.25 0.00 - 0.50 10*3/uL LAB HEMATOLOGY METHOD 06/27/2022 10:30 AM EST [facility] Basophils Absolute 0.04 0.00 - 0.10 10*3/uL LAB HEMATOLOGY METHOD 06/27/2022 10:30 AM EST [facility] Immature Granulocytes Absolute 0.02 0.00 - 0.06 10*3/uL LAB HEMATOLOGY METHOD 06/27/2022 10:30 AM EST [facility] Blood Blood sample taken from central line / Unknown (Port) Long-term Catheter / Unknown 06/27/2022 10:08 AM EST 06/27/2022 10:25 AM EST Narrative [facility] - 06/27/2022 10:30 AM EST Therapeutic decision making should be based on absolute values, rather than percentages. us Penny Dodson MD LAB BLOOD ORDERABLES Final Result [facility] [address] [place] [address] documented in this encounter Visit Diagnoses Diagnosis Carcinoma of fallopian tube, unspecified laterality (CMS/HCC)- Primary Obesity (BMI 30-39.9) Neuropathy Mononeuritis of unspecified site Chest tightness Other chest pain documented in this encounter Additional Health Concerns Assessment Noted Time A fall risk assessment has been complete d for the patient 06/27/2022 10:09 AM EST documented as of this encounter Care Teams Graphic Production Artist Relationship Specialty Start Date End Date Flaquita Dorsey DO [address] [place] [address] PCP - General 12/14/21 Aliyah Valencia MD [address] [place] [address] Referring Physician 03/10/21 documented as of this encounter
--- OUTSIDE RECORDS SUMMARY | 2024-07-10 12:00 | XMS_ITS | Encounter Summary ---
Author Organization Healthcare Address [address] [place] [address] Care Team Providers Care Nitric Acid Concentrator Operator Name Role Phone Aliyah Valencia MD Unavailable Flaquita Dorsey DO Primary Care Provider [phone] Encounter Details Date Type Department Care Team (Late Contact Info) Description 07/08/2022 Refill [facility] [address] [place] [address] Penelope Carmona MD [address] [place] [address] Social History Tobacco Use Types [...] [address] [place] [address] Penelope Carmona MD [address] [facility] [address] [place] [address] 08/05/2024 9:30 AM EST Appointment [facility] Infusion Clinic 1 [address] [place] [address] 02/26/2025 9:30 AM EDT Appointment [facility] [place] [facility] [place] [address] [address] [facility] [address] [place] [address] 02/26/2025 10:30 AM EDT Office Visit [facility] [place] [address] [facility] 2nd [place] [address] Berenice Resendez, TYPO MACHINE OPERATOR [address] [facility] [address] [facility] [address] [place] [address] documented as of this encounter Visit Diagnoses Not on filedocumented in this encounter Additional Health Concerns Assessment Noted Time A fall risk assessment has been complete d for the patient 06/27/2022 10:09 AM EST documented as of this encounter Care Teams Nitric Acid Concentrator Operator Relationship Specialty Start Date End Date Flaquita Dorsey DO [address] [place] [address] PCP - General 12/14/21 Aliyah Valencia MD [address] [place] [place] [address] Referring Physician 03/10/21 documented as of this encounter
--- OUTSIDE RECORDS SUMMARY | 2024-07-10 12:00 | XMS_ITS | Encounter Summary ---
Author Organization Healthcare Address [address] [id number] Care Team Providers Care Animal Attendants And Trainers Name Role Phone Aliyah Valencia MD Unavailable [phone] Flaquita Dorsey DO Primary Care Provider [phone] Reason for Visit * Episode Based Medications (Routine) - Closed Specialty Diagnoses / Procedures Referred By Contac t Referred To Contact Diagnoses Carcinoma of fallopian tube, unspecified laterality (CMS/HCC) Procedures Bevacizumab Every 21 Days Penelope Carmona MD [address] [address] Phone: tel: fax: [facility] Infusion Clinic 2 [address] [place] [address] Phone: tel: Referral ID Status Reason Start Date Expiration Date Visits Re quested Visits Authorized [id number] Closed 04/11/2022 10/11/2023 1 14 Encounter Details Date Type Department Care Team (Latest Contact Info) Description 06/06/2022 3:30 PM EST - 06/06/2022 11:59 PM EST Hospital Encounter [facility] Infusion Clinic 1 [address] [place] [address] Carcinoma of fallopian tube, unspecified laterality (CMS/HCC) (Primary Dx); Neuropathy Discharge Disposition: Home or Self Care Social [...] Sign Reading Time Taken Comments Blood Pressure 118/66 06/06/2022 6:03 PM EST Pulse 78 06/06/2022 6:03 PM EST Temperature 36.6 ??C (97.9 ??F) 06/06/2022 3:35 PM ES T Respiratory Rate 18 06/06/2022 3:35 PM EST Oxygen Saturation 96% 06/06/2022 3:35 PM EST Inhaled Oxygen Concentration - - Weight 81.1 kg (178 lb 12.7 oz) 06/06/2022 3:35 PM EST Height 161.3 cm (5' 3.5 ) 06/06/2022 3:35 PM EST Body Mass Index 31.17 06/06/2022 3:35 PM EST documented in this encounter Medications at Time of Discharge aspirin 81 MG chewable tablet Chew 1 tablet (81 mg) 1 (one) time each day. ergocalciferol (Vitamin D-2) 1.25 MG (86777 UT) capsule Take 1 capsule (50,000 Units) [...] Description 08/05/2024 8:00 AM EST Office Visit [facility] Gynecology [address] [facility] [address] [place] [address] Penelope Carmona MD 800 [facility] [address] [facility] [address] [place] [address] 08/05/2024 9:30 AM EST Appointment [facility] Infusion Clinic 1 [address] [place] [address] 02/26/2025 9:30 AM EDT Appointment [facility] Breast Care Center Comprehensive Breast Care Center [facility] [address] [facility] [address] [place] [address] 02/26/2025 10:30 AM EDT Office Visit [facility] Breast Care Center [address] [facility], [address] [place] [phone] Berenice Resendez, GARAGE DOOR INSTALLER 800 [facility] [address] [place] [address] documented as of this encounter Visit Diagnoses Diagnosis Carcinoma of fallopian tube, unspecified laterality (CMS/HCC)- Primary Neuropathy Mononeuritis of unspecified site documented in this encounter Administered Medications Inactive [...] Specific administration requirements refer to [id number]., On Mon06/06/22 at 1700, For 1 dose, NS 100 mLIndications:Carcinoma of fallopian tube, unspecified laterality (CMS/HCC) New Bag 06/06/2022 5:33 PM EST 1,300 mg 364 mL/hr potassium chloride CR (Klor-Con) ER tablet 40 mEq 40 mEq, Oral, Once as needed, 1 dose, Starting on Mon06/06/22 at 1639, Until Mon06/06/22 at 1642, Routine, For potassium value 3.2 to 3.4Indications:Neuropathy Given 06/06/2022 4:42 PM EST 40 mEq documented in this encounter Additional Health Concerns Assessment Noted Time A fall risk assessment has been complete d for the patient 06/06/2022 3:34 PM EST documented as of this encounter Care Teams Animal Attendants And Trainers Relationship Specialty Start Date End Date Flaquita Dorsey DO [address] [place], [place] [id number] PCP - General 12/14/21 Aliyah Valencia MD [address] [place] [address] Referring Physician 03/10/21 documented as of this encounter
--- OUTSIDE RECORDS SUMMARY | 2024-07-10 12:00 | XMS_ITS | Encounter Summary ---
Author Organization Healthcare Address [address] [place] [address] Care Team Providers Care Meteorology Teacher Name Role Phone Aliyah Valencia MD Unavailable [phone] Flaquita Dorsey DO Primary Care Provider [phone] Encounter Details Date Type Department Care Team (Latest Contact Info) Description 06/06/2022 Travel Social History Tobacco Use Types Packs/Day [...] AM EST Office Visit [facility] [address] [facility] [address] [place] [phone] Penelope Carmona MD [address] [facility] [address] [place] [address] 08/05/2024 9:30 AM EST Appointment [facility] Infusion [facility] 1 [address] [place] [address] 02/26/2025 9:30 AM EDT Appointment [facility] [address] [place] [address] 02/26/2025 10:30 AM EDT Office Visit [facility] [address] [facility], [address]nd [place] [address] Bereince Resendez, HOT BOX OPERATOR [address] [facility] [address] [place] [address] documented as of this encounter Visit Diagnoses Not on filedocumented in this encounter Additional Health Concerns Assessment Noted Time A fall risk assessment has been complete d for the patient 06/06/2022 3:34 PM EST documented as of this encounter Care Teams Meteorology Teacher Relationship Specialty Start Date End Date Flaquita Dorsey DO [address] [place] [address] PCP - General 12/14/21 Aliyah Valencia MD [address] [place] [address] Referring Physician 03/10/21 documented as of this encounter
--- OUTSIDE RECORDS SUMMARY | 2024-07-10 12:00 | XMS_ITS | Encounter Summary ---
Author Organization Healthcare Address [facility] [place] [address] Care Team Providers Care Curriculum Assistant Name Role Phone Aliyah Valencia MD Unavailable [phone] Flaquita Dorsey DO Primary Care Provider [phone]- [phone] Encounter Details Date Type Department Care Team (Late Contact Info) Description 05/09/2022 Orders Only External Location [address] [place] [address] Cynthia Dial DO Social History Tobacco Use Types Packs/Day Years [...] EST Office Visit [facility] [address] [facility] [address] [place] [address] Penleope Carmona MD [address] [facility] [address] [facility] [address] [place] [address] 08/05/2024 9:30 AM EST Appointment [facility] [address] [place] [phone] 02/26/2025 9:30 AM EDT Appointment [facility] [address] [place] [address] 02/26/2025 10:30 AM EDT Office Visit [facility] [address] [facility], 2nd [place] [address] Berenice Resendez D, CAR CHASER [address] [facility] [address] [place] [address] documented as of this encounter Procedures Procedure Name Priority Date/Time Associated Diagnosis Comments CT ABDOMEN PELVIS W IV CONTRAST 05/09/2022 7:23 PM EDT documented in this encounter Results * CT Abdomen Pelvis w IV Contrast (05/09/2022 7:23 PM EDT) Anatomical Region Laterality Modality Abdomen, Pelvis Computed Tomogra phy 05/09/2022 7:23 PM EDT Cynthia Dial DO IMG CT PROCEDURES Final Result documented in this encounter Visit Diagnoses Not on filedocumented in this encounter Additional Health Concerns Assessment Noted Time A fall risk assessment has been complete d for the patient 04/25/2022 11:58 AM EDT documented as of this encounter Care Teams Curriculum Assistant Relationship Specialty Start Date End Date Flaquita Dorsey DO [address] [place] [address] PCP - General 12/14/21 Aliyah Valencia MD [address] [place] [place] [address] Referring Physician 03/10/21 documented as of this encounter
--- OUTSIDE RECORDS SUMMARY | 2024-07-10 12:01 | XMS_ITS | Encounter Summary ---
Author Organization Healthcare Address [address] [place] [id number] Care Team Providers Care Police Liaison Name Role Phone Aliyah Valencia MD Unavailable [phone] Flaquita Dorsey DO Primary Care Provider [phone] Encounter Details Date Type Department Care Team (Latest Contact Info) Description 01/24/2022 Travel Social History Tobacco Use Types Packs/Day [...] suspected to have Coronavirus/COVID-19? No / Unsure 01/24/2022 1:43 PM EDT documented as of this encounter Plan of Treatment Upcoming Encounters Date Type Department Care Team (Late st Contact Info) Description 08/05/2024 8:00 AM EST Office Visit [facility] [address] [facility] [address] [place] [phone] Penelope Carmona MD [address] [facility] [address] [place] [address] 08/05/2024 9:30 AM EST Appointment [facility] [address] [place] [address] 02/26/2025 9:30 AM EDT Appointment [facility] [address] [place] [address] 02/26/2025 10:30 AM EDT Office Visit [facility] [address] [facility], [address]nd [place] [address] Berenice Resendez, CORK INSULATOR HELPER [address] [facility] [address] [place] [address] documented as of this encounter Visit Diagnoses Not on filedocumented in this encounter Additional Health Concerns Assessment Noted Time A fall risk assessment has been complete d for the patient 01/24/2022 1:50 PM EDT documented as of this encounter Care Teams Police Liaison Relationship Specialty Start Date End Date Flaquita Dorsey DO [address] [place] [address] PCP - General 12/14/21 Aliyah Valencia MD [address] [place] [place] [address] Referring Physician 03/10/21 documented as of this encounter
--- OUTSIDE RECORDS SUMMARY | 2024-07-10 12:01 | XMS_ITS | Encounter Summary ---
Author Organization Healthcare Address [address] [place], [place] [id number] Care Team Providers Care Silk Soaker Name Role Phone Aliyah Valencia MD Unavailable [phone] Flaquita Dorsey DO Primary Care Provider [phone] Reason for Visit * Episode Based Medications (Routine) - Closed Specialty Diagnoses / Procedures Referred By Contac t Referred To Contact Diagnoses Carcinoma of fallopian tube, unspecified laterality (CMS/HCC) Procedures Bevacizumab Every 21 Days Penelope Carmona MD [address] [place] [address] Phone: tel: fax: [facility] [address] [place] [address] Phone: tel: Referral ID Status Reason Start Date Expiration Date Visits Re quested Visits Authorized [id number] Closed 04/11/2022 10/11/2023 1 14 Encounter Details Date Type Department Care Team (Latest Contact Info) Description 04/25/2022 11:57 AM EDT - 04/25/2022 11:59 PM EDT Hospital Encounter [facility] [address] [place] [address] Carcinoma of fallopian tube, unspecified [...] Sign Reading Time Taken Comments Blood Pressure 123/72 04/25/2022 1:40 PM EDT Pulse 85 04/25/2022 1:40 PM EDT Temperature 37.1 ??C (98.7 ??F) 04/25/2022 1 1:58 AM EDT Respiratory Rate 18 04/25/2022 11:5 8 AM EDT Oxygen Saturation 97% 04/25/2022 11: 58 AM EDT Inhaled Oxygen Concentration - - Weight 83.3 kg (183 lb 10.3 oz) 022 11:58 AM EDT Height 161.3 cm (5' 3.5 ) 04/25/2022 11 :58 AM EDT Body Mass Index 32.02 04/25/2022 11:58 AM EDT documented in this encounter Medications at Time of Discharge aspirin 81 MG chewable tablet Chew 1 tablet (81 mg) 1 (one) time each day. ergocalciferol (Vitamin D-2) 1.25 MG (90666 UT) capsule Take 1 capsule (50,000 Units) [...] AM EST Office Visit [facility] [address] [facility] [address] [place] [address] Penelope Carmona MD [address] [facility] [address] [facility] [address] [place] [address] 08/05/2024 9:30 AM EST Appointment [facility] In[facility] [address] [place] [address] 02/26/2025 9:30 AM EDT Appointment [facility] [place] [address] [facility] [address] [place] [address] 02/26/2025 10:30 AM EDT Office Visit [facility] [place] [address] [facility], 2[address] [place] [address] Berenice Resendez, CHIROPRACTIC NEUROLOGIST [address] [facility] [address] [facility] [address] [place] [address] documented as of this encounter [...] Specific administration requirements refer to [id number]., On 04/25/22 at 1245, For 1 dose, NS 100 mLIndications:Carcinoma of fallopian tube, unspecified laterality (CMS/HCC) New Bag 04/25/2022 1:09 PM EDT 1,300 mg 364 mL/hr documented in this encounter Additional Health Concerns Assessment Noted Time A fall risk assessment has been complete d for the patient 04/25/2022 11:58 AM EDT documented as of this encounter Care Teams Silk Soaker Relationship Specialty Start Date End Date Flaquita Dorsey DO [address] [place] [address] PCP - General 12/14/21 Aliyah Valencia MD [address] [place] [address] Referring Physician 03/10/21 documented as of this encounter
--- OUTSIDE RECORDS SUMMARY | 2024-07-10 12:01 | XMS_ITS | Encounter Summary ---
Author Organization Healthcare Address [address] [place], [place] [id number] Care Team Providers Care Draw Operator Name Role Phone Aliyah Valencia MD Unavailable [phone] Flaquita Dorsey DO Primary Care Provider [phone] Reason for Visit * Reason Comments Follow-up Encounter Details Date Type Department Care Team (Late st Contact Info) Description 04/11/2022 3:00 PM EDT Office Visit [facility] [address] [place] [address] Penny Carmona MD [address] [facility] [address] [place] [address] Carcinoma of fallopian tube, unspecified laterality (CMS/HCC) (Primary Dx); Neuropathy; Obesity (BMI 30-39.9) Social History Tobacco Use Types Packs/Day Years [...] suspected to have Coronavirus/COVID-19? No / Unsure 04/11/2022 12:17 PM EDT documented as of this encounter Last Filed Vital Signs Vital Sign Reading Time Taken Comments Blood Pressure 110/68 04/11/2022 2:55 PM EDT Pulse 109 04/11/2022 2:55 PM EDT Temperature - - Respiratory Rate - - Oxygen Saturation - - Inhaled Oxygen Concentration - - Weight 84 kg (185 lb 3 oz) 04/11/2022 2:55 PM ED T Height - - Body Mass Index 32.29 12/14/2021 12:28 PM EDT documented in this encounter Miscellaneous Notes * Addendum Note - Evangelina Osuna - 04/11/2022 3:00 PM EDTAddended by: EVANGELINA OSUNA on: 04/11/2022 04:19 PM Modules accepted: Orders * Progress Notes - Penny Carmona MD - 04/11/2022 3:00 PM EDT Primary Care Provider: Flaquita Dorsey DO History of Present Illness: Chief complaint: 76 yo female here for surveillance for recurrent fallopian tube cancer and to review CT results from today. Oncologic history is as follows: Oncology History [...] she underwent a left needle localized lumpectomy. [place] lymph node biopsy was not performed as [...] vagina). Initiated neoadjuvant chemo with carbo/Taxol per LAP REGULATOR followed by BSO/Omentectomy and adjuvant Carbotaxol. Recurrence in March 2019. Treated with carbo initially followed by Olaparib. 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 She is currently off of therapy. She follows with Dr. Banerjee in [place]. 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 Recurrence - First recurrence, iqugmiut sensitive - CT 04/10/19 with 3 cmlesion at cuff - Ca125 12 (from 8) - MTB discussion: recommend trial if progression on iqugmiut regimen or consider Parp for RAD 51 [...] ccy for choledocolithiasis 2019 (SGB) - Ca125: 79-1-1-7-7-9-8 - Started Parp inhibitor 09/2019 - Dose [...] 7.49 (21) 06/30/2021 Recurrence - Third recurrence, iqugmiut sensitive - CT 06/30/2021 shows vaginal cuff [...] disease seen 04/11/2022 Recurrence - Fourth recurrence, iqugmiut resistant - CT 04/11/2022 with increase in size of mass at apex of vagina to 5 cm from 3.6 cm 04/18/2022 - Chemotherapy - Dana, oral Cytoxan started 04/18/2022 Interval updates to history: Oncologic treatment history as described above reviewed today as well as PMH/PSH/Meds/All/SH/FH, with updates made as appropriate. Patient is here today for follow up. Reports that she is having more bladder leakage and vaginal bleeding lately. She has had diarrhea today after receiving contrast for her CT scan. CT scan shows progression with increase in vaginal cuff mass to 5 cm from 3.6. No other clear disease. Adrenal lesion is stable. PMH: h/o breast cancer x2, [...] ago, no drugs, retired, lives in [place]. FamHx: Father-prostate, MGma-colon. ROS: 14 pt ROS performed with pertinent positives and negatives as noted in HPI. ROS otherwise negative Objective Physical Exam: Vital Signs for this encounter: BSA: 1.94 meters squared Visit Vitals BP 110/68 Pulse 109 Wt 84 kg (185 lb 3 oz) LMP 11/17/1981 (Approximate) BMI 32.29 kg/m?? OB Status Hysterectomy Smoking Status Former BSA 1.94 m?? Physical Exam Vitals and nursing note reviewed. Constitutional: Appearance: She is well-developed. HENT: Head: Normocephalic and atraumatic. Mouth/Throat: Mouth: Mucous membranes are moist. Eyes: Conjunctiva/sclera: Conjunctivae normal. Cardiovascular: Rate and Rhythm: Normal rate and regular rhythm. Heart sounds: Normal heart sounds. Pulmonary: Effort: Pulmonary effort is normal. Breath [...] Status: Asymptomatic PS= 0 Results: CBC WBC 5.09 Hgb 11.3 PLT 253 HCT 35.8 Lab Results Component Value Date NEUTROABS 3.18 01/24/2022 BASIC METABOLIC PANEL Na 142 Cl 102 BUN 23 Gluc 91 K 3.7 Co2 26 Creat 0.66 LIVER FUNCTION TESTING Tot Prot 6.7 AST 14 Tot bili 0.2 ALT 12 Alkphos 56 Ca 9.7 Mg 1.3 Phos No results found for requested labs within last 8760 hours. === 04/11/22 === CT CHEST W IV CONTRAST - Narrative - Exam/Procedure: CT CHEST W IV CONTRAST ordered by PENNY BANERJEE [place], [id number] CLINICAL INDICATION: Ovarian cancer, assess treatment response [...] followed by radiation for additional recurrence - [place] sensitive recurrence diagnosed 06/2021. - Completed 6 cycles of single agent Carbo 10/2021. Recovering well with no concerning residual toxicity. - CT OSH 12/2021 JARED. Given was done at different facility without ability to directly compare, willplan to recheck sooner than usual at - check again at 3 months from last (early March). - Today's CT (04/11/2022) shows progression at cuff with no other disease - Will send Caris testing - Extensive discussion on options today. Now iqugmiut resistant (5 month interval). Will not use Carbo again. Offered traditional chemo (Gemzar, DD Taxol, Doxil) vs Dana/oral Cytoxan. Elects for Dana/oral cytoxan - Counseling ahead of first cycle of chemo today. Discussed the agents to be administered (Dana, cytoxan), including route of administration (IV/oral), expected side effects and potential toxicities (including but not limited to cytopenias, alopecia, renal and liver toxicity, neurotoxicity, hypersensitivity reaction, and nausea/vomiting) and frequency of administration (q21 days/daily). Also discussed supportive medications and prn medications. Discussed planned hematologic and electrolyte monitoring schedule. All questions answered. Consent obtained. 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 Problem 4: History of left breast cancer x 2 Assessment and plan 4: - On anastrazole - continue. No current signs of disease - Will be done with hormone therapy 12/2021 Problem 5: Neuropathy Assessment and plan 5: - Treatment related. Worst at night. - Will not use Taxol again. - Continue Gabapentin. Problem 6: h/o syncope episodes and carotid stenosis Assessment and plan 6: - No current symptoms. - Follow up with cards as diected Problem 7: Obesity Assessment and plan 7: - Body mass index is 32.29 kg/m??. - Affects all aspects of care Team based care includes nurse intake, review of prior documentation, review of images and imaging report (CT), history, physical exam, discussion of CT results, discussion of plan of care, chemo counseling and consent, chemo orders, appointment scheduling, lab orders, port draw, and documentation.Encounter time 45 min Penny Dodson MD [address] [facility] [address] Dept: [phone] Dept Loc: [phone] * Progress Notes - Evangelina Osuna - 04/11/2022 3:00 PM EDT Pharmacy Hematology/Oncology Patient Education Note I counseled the patient on their chemotherapy regimen, which was scheduled to start 04/18/22. The chemotherapy agents that this patient is scheduled to receive include: Bevacizumab/Cyclophosphamide. Iprovided the patient with a written explanation of the drugs contained in the regimen and their expected side effects, toxicities, and adverse reactions. I provided verbal explanation of the same material and provided methods for self-monitoring. I answered all questions that the patient and/or caregiver had. The patient and/or caregiver demonstrated understanding of the material, and wished to proceed with the treatment. Evangelina Osuna PharmD Hematology/Oncology Clinical Pharmacist * Progress Notes - Evangelina Osuna - 04/11/2022 3:00 PM EDT Pharmacy Hematology/Oncology Treatment Plan [...] for: [x] Follow-Up Clinical Review for Cycle 1 [x] Follow-Up Clinical Review for Continuous Oral Therapy Interval History: Ms. John's CT shows localized progression. Will switch therapy to Bevacizumab and oral Cyclophosphamide. Labs to be re-evaluated by pharmacy satellite prior to treatment on 04/18/22. Dosing Wt: 84 kg Today's Wt: Wt Readings from Last 1 Encounters: 04/11/22 84 kg (185 lb 3 oz) Dosing Ht: 160 cm DosingBSA: 1.88 m2 Recent Labs: Lab Results Component Value Date WBC 5.09 01/24/2022 HGB 11.3 01/24/2022 HCT 35.8 01/24/2022 MCV 108 (H) 01/24/2022 PLT 253 01/24/2022 Lab Results Component Value Date GLUCOSE 91 01/24/2022 CALCIUM 9.7 01/24/2022 NA 142 01/24/2022 K 3.7 01/24/2022 CO2 26 01/24/2022 CL 102 01/24/2022 BUN 23 01/24/2022 CREATININE 0.66 01/24/2022 Lab Results Component Value Date ALT 12 01/24/2022 AST 14 01/24/2022 ALKPHOS 56 01/24/2022 BILITOT 0.2 01/24/2022 Lab Results Component Value Date NEUTROABS 3.18 01/24/2022 Lab Results Component Value Date MG 1.3 (L) 11/17/2021 Vitals: Vitals: 04/11/22 1455 BP: 110/68 Pulse: 109 Other Relevant Monitoring: Treatment Plan: Bevacizumab 15 mg/kg (1,300 mg) IV D1 Cyclophosphamide 50 mg PO daily Every 21 days [x] No dose adjustments made Current Treatment Plan History: Bevacizumab/oral Cyclophosphamide #1: 04/18/22 Prior Chemotherapy History: hormone therapy for prior [...] - th lifetime dose carboplatin #6: 11/17/21 Assessment/Plan: Rx Sent to: [facility] Refills due: June 2022 I reviewed the patient's chart and chemotherapy orders were approved. Labs to be re-evaluated by pharmacy satellite prior to treatment on 04/18/22. Patient will return to clinic in 4 weeks. Will follow-up at that time. Pharmacist Attestation: Evangelina Osuna PharmD Hematology/Oncology Clinical Pharmacist documented in this encounter Plan of Treatment Upcoming Encounters Date Type Department Care Team (Late st Contact Info) Description 08/05/2024 8:00 AM EST Office Visit [facility] [address] [place] [address] Penny Carmona MD [address] [facility] [address] [facility] [address] [place] [address] 08/05/2024 9:30 AM EST Appointment [facility] [address] [place] [address] 02/26/2025 9:30 AM EDT Appointment [facility] [address] [facility] [address] [place] [address] 02/26/2025 10:30 AM EDT Office Visit [facility] [address] [facility] 2nd [place] [address] Berenice Resendez, END TRIMMER [address] [facility] [address] [facility] [address] [place] [address] documented as of this encounter Procedures Procedure Name Priority Date/Time Associated Diagnosis Comments URINALYSIS MICROSCOPIC FOR UA REFLEX Routine 04/11/2022 4:09 PM EDT Carcinoma of fallopian tube, unspecified laterality (CMS/HCC) URINALYSIS WITH REFLEX MICROSCOPIC Routine 04/11/2022 4:09 PM EDT Carcinoma of fallopian tube, unspecified laterality (CMS/HCC) CBC WITH AUTO DIFFERENTIAL Routine 04/11/2022 4:00 PM EDT Carcinoma of fallopian tube, unspecified laterality (CMS/HCC) CA 125 Routine 04/11/2022 4:00 PM EDT Carcinoma of fallopian tube, unspecified laterality (CMS/HCC) COMPREHENSIVE METABOLIC PANEL, PLASMA Routine 04/11/2022 4:00 PM EDT Carcinoma of fallopian tube, unspecified laterality (CMS/HCC) documented in this encounter Results * Urinalysis Microscopic Examination (04/11/2022 4:09 PM EDT) Urine Urine specimen obtained by clean catch procedure / Unknown Non-blood Collection / Unknown 04/11/2022 4:09 PM EDT 04/11/2022 4:27 PM EDT Penny Dodson MD LAB URINE ORDERABLES Final Result Performing Organization Address City/State/[facility] Co de Phone Number [facility] [address] [place] [address] * (ABNORMAL) Urinalysis with reflex microscopic (04/11/2022 4:09 PM EDT) Color, Urine Yellow LAB URINALYSIS - AUTOMATED METHOD 04/11/2022 4:36 PM EDT [facility] Clarity, Urine Clear LAB URINALYSIS - AUTOMATED METHOD 04/11/2022 4:36 PM EDT [facility] Spec [place], Urine >=1.030 <=1.005 to >=1.030 LAB URINALYSIS - AUTOMATED METHOD 04/11/2022 4:36 PM EDT [facility] pH, Urine 6.0 4.5 to 8 LAB URINALYSIS - AUTOMATED METHOD 04/11/2022 4:36 PM EDT [facility] Protein, Urine 100(A) Negative mg/dL LAB URINALYSIS - AUTOMATED METHOD 04/11/2022 4:36 PM EDT [facility] Glucose, Urine Negative Negative mg/dL LAB URINALYSIS - AUTOMATED METHOD 04/11/2022 4:36 PM EDT [facility] Ketones, Urine Negative Negative mg/dL LAB URINALYSIS - AUTOMATED METHOD 04/11/2022 4:36 PM EDT [facility] Blood, Urine Moderate(A) Negative LAB URINALYSIS - AUTOMATED METHOD 04/11/2022 4:36 PM EDT [facility] Bilirubin, Urine Negative Negative LAB URINALYSIS - AUTOMATED METHOD 04/11/2022 4:36 PM EDT [facility] Urobilinogen, Urine 0.2 0.2 to 1.0 mg/dL LAB URINALYSIS - AUTOMATED METHOD 04/11/2022 4:36 PM EDT [facility] Leukocytes, Urine Trace(A) Negative LAB URINALYSIS - AUTOMATED METHOD 04/11/2022 4:36 PM EDT [facility] Nitrite, Urine Negative Negative LAB URINALYSIS - AUTOMATED METHOD 04/11/2022 4:36 PM EDT [facility] RBC, Urine 16 - 30(A) 0 to 3 /HPF LAB URINALYSIS - AUTOMATED METHOD 04/11/2022 4:36 PM EDT [facility] Comment:This result was prev iously suppressed from the chart. WBC, Urine 16 - 30(A) 0 to 5 /HPF LAB URINALYSIS - AUTOMATED METHOD 04/11/2022 4:36 PM EDT [facility] Comment:This result was prev iously suppressed from the chart. Squamous Epithelial Cells 0 - 5 0 to 5 /HPF LAB URINALYSIS - AUTOMATED METHOD 04/11/2022 4:36 PM EDT [facility] Comment:This result was prev iously suppressed from the chart. Hyaline Casts 0 - 8 0 to 8 /LPF LAB URINALYSIS - AUTOMATED METHOD 04/11/2022 4:36 PM EDT [facility] Comment:This result was prev iously suppressed from the chart. Bacteria, Urine Negative Negative LAB URINALYSIS - AUTOMATED METHOD 04/11/2022 4:36 PM EDT [facility] Comment:This result was prev iously suppressed from the chart. Urine Urine specimen obtained by clean catch procedure / Unknown Non-blood Collection / Unknown 04/11/2022 4:09 PM EDT 04/11/2022 4:27 PM EDT Penny Dodson MD LAB URINE ORDERABLES Final Result Performing Organization Address City/State/[facility] Co de Phone Number [facility] [address] [place] [phone] * CA 125 (04/11/2022 4:00 PM EDT) CA 125 10.50 <=38.00 U/mL 04/11/2022 5:15 PM EDT [facility] Blood Blood sample taken from central line / Unknown (Port) Long-term Catheter / Unknown 04/11/2022 4:00 PM EDT 04/11/2022 4:39 PM EDT Narrative [facility] - 04/11/2022 5:15 PM EDT Performed by Stephie electrochemiluminescent immunoassay. Results obtained with different test methods or kits cannot be used interchangeably. us Penny Dodson MD LAB BLOOD ORDERABLES Final Result [facility] [address] [place] [address] * (ABNORMAL) Comprehensive metabolic panel (04/11/2022 4:00 PM EDT) Glucose, Plasma 115(H) 74 - 99 mg/dL 04/11/2022 5:10 PM EDT [facility] BUN, Plasma 20 8 - 23 mg/dL 04/11/2022 5:10 PM EDT [facility] Creatinine, Plasma 0.75 0.60 - 1.10 mg/dL 04/11/2022 5:10 PM EDT [facility] BUN/Creatinine Ratio 27 04/11/2022 5:10 PM EDT [facility] Sodium, Plasma 138 136 - 145 mmol/L 04/11/2022 5:10 PM EDT [facility] Potassium, Plasma 3.2(L) 3.7 - 4.8 mmol/L 04/11/2022 5:10 PM EDT [facility] Comment:Reference range for Serum potassium is 0.2 to 0.5 mmol/L higher than Plasma range. Chloride, Plasma 98 97 - 107 mmol/L 04/11/2022 5:10 PM EDT [facility] CO2, Plasma 28 22 - 29 mmol/L 04/11/2022 5:10 PM EDT [facility] Anion Gap 12 6 - 16 mmol/L 04/11/2022 5:10 PM EDT [facility] Total Calcium, Plasma 9.6 8.9 - 10.2 mg/dL 04/11/2022 5:10 PM EDT [facility] Total Protein 6.5 6.3 - 7.9 g/dL 04/11/2022 5:10 PM EDT [facility] Albumin, Plasma 4.1 3.5 - 5.2 g/dL 04/11/2022 5:10 PM EDT [facility] AST, Plasma 14 9 - 36 U/L 04/11/2022 5:10 PM EDT [facility] ALT, Plasma 14 8 - 33 U/L 04/11/2022 5:10 PM EDT [facility] Alkaline Phosphatase, Plasma 68 46 - 142 U/L 04/11/2022 5:10 PM EDT [facility] Total Bilirubin, Plasma 0.3 0.2 - 1.1 mg/dL 04/11/2022 5:10 PM EDT [facility] eGFRcr 82.6 mL/min/1.7 3m*2 04/11/2022 5:10 PM EDT [facility] Comment: Reported eGFRcr in mL/min/1.73m2 is based the CKD-EPI 2021 equation that does not use a race coefficient. Effective 02/23/22 our laboratory changed the eGFR calculation to the CKD-EPI 2021 equation from the previously reported eGFR, based on the MDRD equation. ??For comparisons between the two equations, please see laboratory website: ??[email or web address] Blood Blood sample taken from central line / Unknown (Port) Long-term Catheter / Unknown 04/11/2022 4:00 PM EDT 04/11/2022 4:39 PM EDT us Penny Dodson MD LAB BLOOD ORDERABLES Final Result [facility] [address] [place] [address] * (ABNORMAL) CBC and Differential (04/11/2022 4:00 PM EDT) WBC Count 6.34 3.70 - 10.30 10*3/uL LAB HEMATOLOGY METHOD 04/11/2022 4:35 PM EDT [facility] RBC Count 3.89(L) 3.90 - 5.20 10*6/uL LAB HEMATOLOGY METHOD 04/11/2022 4:35 PM EDT [facility] HGB 12.1 11.2 - 15.7 g/dL LAB HEMATOLOGY METHOD 04/11/2022 4:35 PM EDT [facility] HCT 38.0 34.0 - 45.0 % LAB HEMATOLOGY METHOD 04/11/2022 4:35 PM EDT [facility] Platelet Count 244 155 - 369 10*3/uL LAB HEMATOLOGY METHOD 04/11/2022 4:35 PM EDT [facility] MCV 98 79 - 98 fL LAB HEMATOLOGY METHOD 04/11/2022 4:35 PM EDT [facility] MCH 31.1 26.0 - 32.0 pg LAB HEMATOLOGY METHOD 04/11/2022 4:35 PM EDT [facility] MCHC 31.8 30.7 - 35.5 g/dL LAB HEMATOLOGY METHOD 04/11/2022 4:35 PM EDT [facility] RDW 13.7 11.5 - 14.5 % LAB HEMATOLOGY METHOD 04/11/2022 4:35 PM EDT [facility] MPV 9.6 8.8 - 12.5 fL LAB HEMATOLOGY METHOD 04/11/2022 4:35 PM EDT [facility] nRBC 0.0 <=0.0 per 100 WBCs LAB HEMATOLOGY METHOD 04/11/2022 4:35 PM EDT [facility] Differential Type Automated LAB HEMATOLOGY METHOD 04/11/2022 4:35 PM EDT [facility] Neutrophils % 70.0 % LAB HEMATOLOGY METHOD 04/11/2022 4:35 PM EDT [facility] Lymphocytes % 21.0 % LAB HEMATOLOGY METHOD 04/11/2022 4:35 PM EDT [facility] Monocytes % 6.0 % LAB HEMATOLOGY METHOD 04/11/2022 4:35 PM EDT [facility] Eosinophils % 2.0 % LAB HEMATOLOGY METHOD 04/11/2022 4:35 PM EDT [facility] Basophils % 0.0 % LAB HEMATOLOGY METHOD 04/11/2022 4:35 PM EDT [facility] Immature Granulocytes % 1.0 % LAB HEMATOLOGY METHOD 04/11/2022 4:35 PM EDT [facility] Neutrophils Absolute 4.45 1.60 - 6.10 10*3/uL LAB HEMATOLOGY METHOD 04/11/2022 4:35 PM EDT [facility] Lymphocytes Absolute 1.34 1.20 - 3.90 10*3/uL LAB HEMATOLOGY METHOD 04/11/2022 4:35 PM EDT [facility] Monocytes Absolute 0.36 0.30 - 0.90 10*3/uL LAB HEMATOLOGY METHOD 04/11/2022 4:35 PM EDT [facility] Eosinophils Absolute 0.14 0.00 - 0.50 10*3/uL LAB HEMATOLOGY METHOD 04/11/2022 4:35 PM EDT [facility] Basophils Absolute 0.02 0.00 - 0.10 10*3/uL LAB HEMATOLOGY METHOD 04/11/2022 4:35 PM EDT [facility] Immature Granulocytes Absolute 0.03 0.00 - 0.06 10*3/uL LAB HEMATOLOGY METHOD 04/11/2022 4:35 PM EDT [facility] Blood Blood sample taken from central line / Unknown (Port) Long-term Catheter / Unknown 04/11/2022 4:00 PM EDT 04/11/2022 4:27 PM EDT Narrative [facility] - 04/11/2022 4:35 PM EDT Therapeutic decision making should be based on absolute values, rather than percentages. us Penny Dodson MD LAB BLOOD ORDERABLES Final Result [facility] [address] [place] [address] documented in this encounter Visit Diagnoses Diagnosis Carcinoma of fallopian tube, unspecified laterality (CMS/HCC)- Primary Neuropathy Mononeuritis of unspecified site Obesity (BMI 30-39.9) documented in this encounter Additional Health Concerns Assessment Noted Time A fall risk assessment has been complete d for the patient 04/11/2022 2:54 PM EDT documented as of this encounter Care Teams Draw Operator Relationship Specialty Start Date End Date Flaquita Dorsey DO [address] [place] [address] PCP - General 12/14/21 Aliyah Vlaencia MD [address] [place] [place], [place] [id number] Referring Physician 03/10/21 documented as of this encounter
--- OUTSIDE RECORDS SUMMARY | 2024-07-10 12:01 | XMS_ITS | Encounter Summary ---
Author Organization Healthcare Address [address] [place], [place] [id number] Care Team Providers Care Glacing Machine Tender Name Role Phone Aliyah Valencia MD Unavailable [phone] Flaquita Dorsey DO Primary Care Provider [phone] Reason for Visit * Reason Comments Follow-up Encounter Details Date Type Department Care Team (Late st Contact Info) Description 01/24/2022 1:45 PM EDT Office Visit [facility] [address] [place] [address] Penelope Carmona MD [address] [facility] [address] [place] [address] Carcinoma of fallopian tube, unspecified laterality (CMS/HCC) (Primary Dx); Neuropathy Social History Tobacco Use Types Packs/Day [...] Sign Reading Time Taken Comments Blood Pressure 119/78 01/24/2022 1:51 PM EDT Pulse 88 01/24/2022 1:51 PM EDT Temperature - - Respiratory Rate - - Oxygen Saturation - - Inhaled Oxygen Concentration - - Weight 86.4 kg (190 lb 7.6 oz) 01/24/2022 1:51 P M EDT Height - - Body Mass Index 33.21 12/14/2021 12:28 PM EDT documented in this encounter Miscellaneous Notes * Progress Notes - Penelope Carmona MD - 01/24/2022 1:45 PM EDT Primary Care Provider: Flaquita Dorsey DO History of Present Illness: Chief complaint: 76 yo female here for follow up after chemo completion for recurrent fallopian tube cancer. Oncologic history [...] she underwent a left needle localized lumpectomy. [place] lymph node biopsy was not performed as [...] vagina). Initiated neoadjuvant chemo with carbo/Taxol per ADULT PSYCHIATRIST followed by BSO/Omentectomy and adjuvant Carbotaxol. Recurrence in March 2019. Treated with carbo initially followed by Olaparib. 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 She is currently off of therapy. She follows with Dr. Hutchins in [employer] [facility]/Onc. 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 Recurrence - First recurrence, [place] sensitive - CT 04/10/19 with 3 cmlesion at cuff - Ca125 12 (from 8) - MTB discussion: recommend trial if progression on [place] regimen or consider Parp for RAD 51 [...] ccy for choledocolithiasis 2019 (SGB) - Ca125: 57-4-3-7-7-9-8 - Started Parp inhibitor 09/2019 - Dose [...] concerning findings - Most recent Ca125 7.49 (51132) 06/30/2021 Recurrence - Third recurrence, [place] sensitive - CT 06/30/2021 shows vaginal cuff [...] to contrast shortage): No clear disease seen Interval updates to history: Oncologic treatment history as described above reviewed today as well as PMH/PSH/Meds/All/SH/FH, with updates made as appropriate. Patient is here today for follow up. Feeling well after chemo completion. Energy recovering. Having some urinary leakage - has had before be tween treatments. Not associated with stress. Still having neuropathy - Gabapentin remains very helpful. Has some SOA with exertion (ie struggling more with housework). 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 SocHx:??1-2 drinks/year, quit smoking 20 years ago, no drugs, retired, lives in [place]. ?? FamHx:??Father-prostate, MGma-colon. ROS: 14 pt ROS performed with pertinent positives and negatives as noted in HPI. ROS otherwise negative Objective Physical Exam: Vital Signs for this encounter: BSA: 1.97 meters squared Visit Vitals BP 119/78 Pulse 88 Wt 86.4 kg (190 lb 7.6 oz) LMP 11/17/1981 (Approximate) BMI 33.21 kg/m?? OB Status Hysterectomy Smoking Status Former Smoker BSA 1.97 m?? Physical Exam Vitals and nursing note [...] Status: Asymptomatic PS= 0 Results: CBC WBC 4.13 Hgb 10.4 PLT 174 HCT 32.6 Lab Results Component Value Date NEUTROABS 2.60 11/17/2021 BASIC METABOLIC PANEL Na 142 Cl 107 BUN 18 Gluc 70 K 3.7 Co2 24 Creat 0.61 LIVER FUNCTION TESTING Tot Prot 6.0 AST 15 Tot bili 0.2 ALT 13 Alkphos 44 Ca 9.0 Mg 1.3 Phos No results found for requested labs within last 8760 hours. Assessment/Plan Problem 1: Recurrent serous fallopian tube cancer (right) ?? Assessment and plan 1: - s/p chemo/debulking at initial diagnosis - Has had additional chemo for recurrence followed by radiation for additional recurrence - [place] sensitive recurrence diagnosed 06/2021. - Completed 6 cycles of single agent Carbo 10/2021. Recovering well with no concerning residual toxicity. - CT OSH 12/2021 JARED. Reviewed with patient today. Given was done at different facility without ability to directly compare, will plan to recheck sooner than usual at - check again at 3 months fromlast (early March). - Resume surveillance q3 months with visit/Ca125, consider Caris testing - Check baseline Ca125 for surveillance today Problem 2: Recent chemotherapy ?? Assessment and plan 2: - Doing well with recovery - Check last round of labs today and then stop weekly monitoring Problem 3: Cervical cancer? 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 ??No signs of recurrence.? Problem 4: History of left breast cancer x 2 ?? Assessment and plan 4: - On anastrazole - continue. ??No current signs of disease?? - Will be done with hormone therapy 12/2021 ?? Problem 5: ??Neuropathy ?? Assessment and plan 5: - Treatment related. ??Worst at night. ?? - Will not use Taxol again. ?? - Continue Gabapentin. Does not need refill yet today. ?? Problem 6: h/o syncope episodes and carotid stenosis ?? Assessment and plan 6: - No current symptoms. ?? - Follow up with cards as diected Team based care includes nurse intake, review of prior documentation, review of imaging report, history, physical exam, discussion of CT results, discussion of plan of care, appointment scheduling, lab orders, port draw,, and documentation. Encounter time 28 min MD AD[facility]ANA [facility] [address] [facility] [address] [facility] [address] Dept: [phone] Dept Loc: [phone] documented in this encounter Plan of Treatment Upcoming Encounters Date Type Department Care Team (Late st Contact Info) Description 08/05/2024 8:00 AM EST Office Visit [facility] Gynecology [address] [place] [address] Penelope Carmona MD [address] [facility] [address] [facility] [address] [place] [address] 08/05/2024 9:30 AM EST Appointment [facility] Infusion Clinic [address] [place] [address] 02/26/2025 9:30 AM EDT Appointment [facility] Breast Care Center [facility] [address] [facility] [address] [place] [address] 02/26/2025 10:30 AM EDT Office Visit [facility] Breast Care Center [address] [facility], [address]nd [place] [address] Berenice Resendez, WASTEWATER PROJECT ENGINEER [address] [facility] [address] [facility] [address] [place] [address] documented as of this encounter Procedures Procedure Name Priority Date/Time Associated Diagnosis Comments CBC WITH AUTO DIFFERENTIAL Routine 01/24/2022 3:42 PM EDT Carcinoma of fallopian tube, unspecified laterality (CMS/HCC) CA 125 Routine 01/24/2022 3:42 PM EDT Carcinoma of fallopian tube, unspecified laterality (CMS/HCC) COMPREHENSIVE METABOLIC PANEL, PLASMA Routine 01/24/2022 3:42 PM EDT Carcinoma of fallopian tube, unspecified laterality (CMS/HCC) documented in this encounter Results * (ABNORMAL) CBC and Differential (01/24/2022 3:42 PM EDT) WBC Count 5.09 3.70 - 10.30 10*3/uL LAB HEMATOLOGY METHOD 01/24/2022 4:34 PM EDT [facility] RBC Count 3.32(L) 3.90 - 5.20 10*6/uL LAB HEMATOLOGY METHOD 01/24/2022 4:34 PM EDT [facility] HGB 11.3 11.2 - 15.7 g/dL LAB HEMATOLOGY METHOD 01/24/2022 4:34 PM EDT [facility] HCT 35.8 34.0 - 45.0 % LAB HEMATOLOGY METHOD 01/24/2022 4:34 PM EDT [facility] Platelet Count 253 155 - 369 10*3/uL LAB HEMATOLOGY METHOD 01/24/2022 4:34 PM EDT [facility] MCV 108(H) 79 - 98 fL LAB HEMATOLOGY METHOD 01/24/2022 4:34 PM EDT [facility] MCH 34.0(H) 26.0 - 32.0 pg LAB HEMATOLOGY METHOD 01/24/2022 4:34 PM EDT [facility] MCHC 31.6 30.7 - 35.5 g/dL LAB HEMATOLOGY METHOD 01/24/2022 4:34 PM EDT [facility] RDW 12.7 11.5 - 14.5 % LAB HEMATOLOGY METHOD 01/24/2022 4:34 PM EDT [facility] MPV 9.8 8.8 - 12.5 fL LAB HEMATOLOGY METHOD 01/24/2022 4:34 PM EDT [facility] nRBC 0.0 <=0.0 per 100 WBCs LAB HEMATOLOGY METHOD 01/24/2022 4:34 PM EDT [facility] Differential Type Automated LAB HEMATOLOGY METHOD 01/24/2022 4:34 PM EDT [facility] Neutrophils % 62.0 % LAB HEMATOLOGY METHOD 01/24/2022 4:34 PM EDT [facility] Lymphocytes % 26.0 % LAB HEMATOLOGY METHOD 01/24/2022 4:34 PM EDT [facility] Monocytes % 7.0 % LAB HEMATOLOGY METHOD 01/24/2022 4:34 PM EDT [facility] Eosinophils % 3.0 % LAB HEMATOLOGY METHOD 01/24/2022 4:34 PM EDT [facility] Basophils % 1.0 % LAB HEMATOLOGY METHOD 01/24/2022 4:34 PM EDT [facility] Immature Granulocytes % 1.0 % LAB HEMATOLOGY METHOD 01/24/2022 4:34 PM EDT [facility] Neutrophils Absolute 3.18 1.60 - 6.10 10*3/uL LAB HEMATOLOGY METHOD 01/24/2022 4:34 PM EDT [facility] Lymphocytes Absolute 1.33 1.20 - 3.90 10*3/uL LAB HEMATOLOGY METHOD 01/24/2022 4:34 PM EDT [facility] Monocytes Absolute 0.37 0.30 - 0.90 10*3/uL LAB HEMATOLOGY METHOD 01/24/2022 4:34 PM EDT [facility] Eosinophils Absolute 0.15 0.00 - 0.50 10*3/uL LAB HEMATOLOGY METHOD 01/24/2022 4:34 PM EDT [facility] Basophils Absolute 0.03 0.00 - 0.10 10*3/uL LAB HEMATOLOGY METHOD 01/24/2022 4:34 PM EDT [facility] Immature Granulocytes Absolute 0.03 0.00 - 0.06 10*3/uL LAB HEMATOLOGY METHOD 01/24/2022 4:34 PM EDT [facility] Blood Venous blood specimen / Unknown Venipuncture / Unknown 01/24/2022 3:42 PM EDT 01/24/2022 4:26 PM EDT Narrative [facility] - 01/24/2022 4:34 PM EDT Therapeutic decision making should be based on absolute values, rather than percentages. us Penelope Dodson MD LAB BLOOD ORDERABLES Final Result Performing Organization Address City/[facility] Co de Phone Number [facility] [address] [place] [address] * CA 125 (01/24/2022 3:42 PM EDT) CA 125 5.89 <=38.00 U/mL 01/25/2022 1:39 PM EDT [facility] Blood Venous blood specimen / Unknown Venipuncture / Unknown 01/24/2022 3:42 PM EDT 01/24/2022 4:57 PM EDT Penelope Dodson MD LAB BLOOD ORDERABLES Final Result Performing Organization Address [facility] de Phone Number [facility] [address] [place] [address] * Comprehensive metabolic panel (01/24/2022 3:42 PM EDT) Glucose, Plasma 91 74 - 99 mg/dL 01/24/2022 5:28 PM EDT [facility] BUN, Plasma 23 8 - 23 mg/dL 01/24/2022 5:28 PM EDT [facility] Creatinine, Plasma 0.66 0.60 - 1.10 mg/dL 01/24/2022 5:28 PM EDT [facility] BUN/Creatinine Ratio 35 01/24/2022 5:28 PM EDT [facility] Sodium, Plasma 142 136 - 145 mmol/L 01/24/2022 5:28 PM EDT [facility] Potassium, Plasma 3.7 3.7 - 4.8 mmol/L 01/24/2022 5:28 PM EDT [facility] Comment:Reference range for Serum potassium is 0.2 to 0.5 mmol/L higher than Plasma range. Chloride, Plasma 102 97 - 107 mmol/L 01/24/2022 5:28 PM EDT [facility] CO2, Plasma 26 22 - 29 mmol/L 01/24/2022 5:28 PM EDT [facility] Anion Gap 14 6 - 16 mmol/L 01/24/2022 5:28 PM EDT [facility] Total Calcium, Plasma 9.7 8.9 - 10.2 mg/dL 01/24/2022 5:28 PM EDT [facility] Total Protein 6.7 6.3 - 7.9 g/dL 01/24/2022 5:28 PM EDT [facility] Albumin, Plasma 4.1 3.5 - 5.2 g/dL 01/24/2022 5:28 PM EDT [facility] AST, Plasma 14 9 - 36 U/L 01/24/2022 5:28 PM EDT [facility] ALT, Plasma 12 8 - 33 U/L 01/24/2022 5:28 PM EDT [facility] Alkaline Phosphatase, Plasma 56 46 - 142 U/L 01/24/2022 5:28 PM EDT [facility] Total Bilirubin, Plasma 0.2 0.2 - 1.1 mg/dL 01/24/2022 5:28 PM EDT [facility] eGFR >60 >60 mL/min/1.7 3m*2 01/24/2022 5:28 PM EDT [facility] Comment:eGFR = estimated GFR ; eGFR units = mL/min/1.73 sq meters Chronic Kidney Disease is considered if eGFR <60 mL/min/1.73 sq meters Kidney failure is considered if eGFR is <15 mL/min/1.73 sq meters. eGFR assumes steady state plasma creatinine concentration; not applicable if renal function is rapidly changing or patient is on dialysis. eGFR, if AFR/AM >60 >60 mL/min/1.7 3m*2 01/24/2022 5:28 PM EDT [facility] Comment:eGFR = estimated GFR ; eGFR units = mL/min/1.73 sq meters Chronic Kidney Disease is considered if eGFR <60 mL/min/1.73 sq meters Kidney failure is considered if eGFR is <15 mL/min/1.73 sq meters. eGFR assumes steady state plasma creatinine concentration; not applicable if renal function is rapidly changing or patient is on dialysis. Blood Venous blood specimen / Unknown Venipuncture / Unknown 01/24/2022 3:42 PM EDT 01/24/2022 4:57 PM EDT us Penelope Dodson MD LAB BLOOD ORDERABLES Final Result [facility] [address] [place] [address] documented in this encounter Visit Diagnoses Diagnosis Carcinoma of fallopian tube, unspecified laterality (CMS/HCC)- Primary Neuropathy Mononeuritis of unspecified site documented in this encounter Additional Health Concerns Assessment Noted Time A fall risk assessment has been complete d for the patient 01/24/2022 1:50 PM EDT documented as of this encounter Care Teams Glacing Machine Tender Relationship Specialty Start Date End Date Flaquita Dorsey DO [address] [place] [address] PCP - General 12/14/21 Aliyah Valencia MD [address] [place] [place] [address] Referring Physician 03/10/21 documented as of this encounter
--- OUTSIDE RECORDS SUMMARY | 2024-07-10 12:01 | XMS_ITS | Encounter Summary ---
Author Organization [facility] Address [address] [place] [address] Care Team Providers Care Meteorology Faculty Member Name Role Phone Aliyah Valencia MD Unavailable [phone] Flaquita Dorsey DO Primary Care Provider [phone] Reason for Visit * Reason Onset Date Comments Error (VOID this visit) 02/25/2022 Encounter Details Date Type Department Care Team (Late st Contact Info) Description 02/25/2022 Telephone [facility] [address] [place] [address] Penelope Carmona MD [address] [place] [address] Error (VOID this visit) Social History Tobacco Use Types Packs/Day Years [...] [address] [place] [address] Penelope Carmona MD [address] [place] [address] 08/05/2024 9:30 AM EST Appointment [facility] [address] [place] [address] 02/26/2025 9:30 AM EDT Appointment [facility] Radha Lai [facility] [address] [place] [address] 02/26/2025 10:30 AM EDT Office Visit [facility] [address] [facility]nd [place] [address] Berenice Resendez D, BOTTLING SUPERVISOR [address] [facility] Joelle dg [address] [address] documented as of this encounter Visit Diagnoses Not on filedocumented in this encounter Additional Health Concerns Assessment Noted Time A fall risk assessment has been complete d for the patient 01/24/2022 1:50 PM EDT documented as of this encounter Care Teams Meteorology Faculty Member Relationship Specialty Start Date End Date Flaquita Dorsey DO [address] [place] [address] PCP - General 12/14/21 Aliyah Valencia MD [address] [place] [address] Referring Physician 03/10/21 documented as of this encounter
--- OUTSIDE RECORDS SUMMARY | 2024-07-10 12:01 | XMS_ITS | Encounter Summary ---
Author Organization [facility] Address [address] [place], [place] [id number] Care Team Providers Care Mica Layer Name Role Phone Aliyah Valencia MD Unavailable [phone] Flaquita Dorsey DO Primary Care Provider [phone] Reason for Referral * Imaging (Routine) - Closed Specialty Diagnoses / Procedures Referred By Contac t Referred To Contact Radiology Diagnoses Carcinoma of fallopian tube, unspecified laterality (CMS/HCC) Procedures CT Chest w IV Contrast Penny Carmona MD [address] [address] Phone: tel: fax: Referral ID Status Reason Start Date Expiration Date Visits Re quested Visits Authorized [id number] Closed 01/24/2022 07/26/2023 1 1 * Imaging (Routine) - Closed Specialty Diagnoses / Procedures Referred By Contac t Referred To Contact Radiology Diagnoses Carcinoma of fallopian tube, unspecified laterality (CMS/HCC) Procedures CT Abdomen Pelvis w IV Contrast Penny Carmona MD [address] [address] Phone: tel: fax: Referral ID Status Reason Start Date Expiration Date Visits Re quested Visits Authorized [id number] Closed 01/24/2022 07/26/2023 1 1 Encounter Details Date Type Department Care Team (Late Contact Info) Description 01/24/2022 Orders Only [facility] [address] [facility] [address] [place] [id number] Penny Carmona MD 800 [facility] [address] [place] [address] Endometrial cancer (CMS/HCC) (Primary Dx); Carcinoma of fallopian tube, unspecified laterality (CMS/HCC) Social History Tobacco Use Types Packs/Day [...] EST Office Visit [facility] 800 [facility] [address] [place] [id number] Penny Carmona MD 800 [facility] [address]ai [facility] [address] [place] [address] 08/05/2024 9:30 AM EST Appointment [facility] [address] [place] [phone] 02/26/2025 9:30 AM EDT Appointment [facility] [address] [facility] [address] [place] [address] 02/26/2025 10:30 AM EDT Office Visit [facility] [address] [place] [address] Berenice Resendez, BOX [employer]KER [employer]ER[employer]ARD 800 [facility] [address] [place] [address] documented as of this encounter Results * CT Chest w IV Contrast (04/11/2022 1:25 PM EDT) Anatomical Region Laterality Modality Chest Computed Tomogra phy Impressions 04/11/2022 1:50 PM EDT Chest: No evidence of metastatic disease within the chest. Abdomen/Pelvis: Interval enlargement of vaginal cuff enhancing mass concerning for disease progression. Unchanged right adrenal gland indeterminate nodule. No new evidence of distant metastatic disease or significant adenopathy. CRITICAL RESULT: ?? No. COMMUNICATION: Per this written report. Dictated by Bria Ballesteros MD on 04/11/2022 1:29 PM Signed by Bria Ballesteros MD on 04/11/2022 1:50 PM Narrative 04/11/2022 1:50 PM EDT Exam/Procedure: CT CHEST W IV CONTRAST ordered by PENNY BANERJEE BRANCH, [id number] CLINICAL INDICATION: Ovarian cancer, assess treatment response [...] clearly aggressive bone lesions. Unchanged asymmetric left breast soft tissue with [...] Body Wall: No aggressive or suspicious findings. Procedure Note Bria Ballesteros MD - 04/11/2022 Exam/Procedure: CT CHEST W IV CONTRAST ordered by PENNY BANERJEE GAUSE,[id number] CLINICAL INDICATION: Ovarian cancer, assess treatment response TECHNIQUE: Multiple axial CT images were obtained from thoracic inlet through pubicsymphysis following administration of IV contrast, Omnipaque 350, 100 mL.Reformatted images of the abdomen and pelvis in the coronal and sagittalplanes were generated from the axial data set to facilitate diagnosticaccuracy. Total DLP (Dose-Length Product): 488.05 mGy.cm. Please note: The reportedvalue represents the total of one or more individual components during theCT acquisition on this date and at this time, and as such, the same valuemay appear in more than one CT report depending on theinterpreting/reporting physicians. COMPARISON: CT chest, abdomen and pelvis June 30, 2021; and CT abdomen pelvis 2021 FINDINGS: Chest: Lymph Nodes and Mediastinum: No lymphadenopathy by CT size criteria. Nomediastinal mass lesions. No suspicious thyroid findings. Cardiovascular: The heart is normal in caliber. Thoracic great vessels arepatent. Coronary artery calcification. Right chest wall port with tip atthe superior cavoatrial junction. Lungs and Pleura: No suspicious lung nodules to suggest metastaticdisease. Unchanged right upper lobe 2 mm nodule (series 4 image 75). Nopleural effusions or suspicious thickening. Musculoskeletal and Body Wall: No clearly aggressive bone lesions.Unchanged asymmetric left breast soft tissue with multiple adjacentsurgical clips. No significant axillary adenopathy. Abdomen/Pelvis: Solid Abdominal Organs: Homogenous hepatic enhancement. Tinylow-attenuation focus along the falciform ligament remains unchanged(series 4 image 48). No new suspicious liver lesion. Postcholecystectomywith mild ectasia of the extra hepatic bile duct. Unremarkable spleen,pancreas. Unchanged left adrenal gland myelolipoma. Indeterminate rightadrenal gland nodule measures 2.2 cm, unchanged. Symmetric renalenhancement. 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 Adjacent hypodense nodule measuring 10 mm is also unchanged. Nohydronephrosis. GI Tract/Mesentery/Peritoneum: Stomach is within normal limits. Largedescending duodenal diverticulum. The large and small bowel appear normalin caliber. Ventral abdominal wall hernia containing nondilated smallbowel and portion of the sigmoid colon. No evidence of inflammatory changeor obstruction. No suspicious peritoneal/mesenteric findings. Pelvic Viscera: Partially distended bladder with circumferential wallthickening and mild perivesicular fat stranding. Redemonstration ofheterogenous mass centered within the right vaginal cuff region nowmeasuring 4.6 x 4.0 x 5.0 cm, previously 2.8 x 2.5 x 3.6 cm (series 4image 250). Mass abuts the posterior wall of the bladder. No definitefistula formation. Lymph Nodes/Vasculature: No lymphadenopathy by CT size criteria. Theaortoiliac vasculature is patent and normal in caliber. Free Fluid: No free fluid in the abdomen or pelvis. Musculoskeletal and Body Wall: No aggressive or suspicious findings. IMPRESSION: Chest: No evidence of metastatic disease within the chest. Abdomen/Pelvis: Interval enlargement of vaginal cuff enhancing massconcerning for disease progression. Unchanged right adrenal gland indeterminate nodule. No new evidence of distant metastatic disease or significant adenopathy. CRITICAL RESULT: No. COMMUNICATION: Per this written report. Dictated by Bria Ballesteros MD on 04/11/2022 1:29 PM Signed by Bria Ballesteros MD on 04/11/2022 1:50 PM us Penny Dodson MD IMG CT PROCEDURES Fin al Result * CT Abdomen Pelvis w IV Contrast (04/11/2022 1:25 PM EDT) Anatomical Region Laterality Modality Abdomen, Pelvis Computed Tomogra phy Impressions 04/11/2022 1:50 PM EDT Chest: No evidence of metastatic disease within the chest. Abdomen/Pelvis: Interval enlargement of vaginal cuff enhancing mass concerning for disease progression. Unchanged right adrenal gland indeterminate nodule. No new evidence of distant metastatic disease or significant adenopathy. CRITICAL RESULT: ?? No. COMMUNICATION: Per this written report. Dictated by Bria Ballesteros MD on 04/11/2022 1:29 PM Signed by Bria Ballesteros MD on 04/11/2022 1:50 PM Narrative 04/11/2022 1:50 PM EDT Exam/Procedure: CT CHEST W IV CONTRAST ordered by PENNY DODSON, [id number] CLINICAL INDICATION: Ovarian cancer, assess treatment response [...] clearly aggressive bone lesions. Unchanged asymmetric left breast soft tissue with [...] Body Wall: No aggressive or suspicious findings. Procedure Note Bria Ballesteros MD - 04/11/2022 Exam/Procedure: CT CHEST W IV CONTRAST ordered by PENNY BANERJEE BRANCH,[id number] CLINICAL INDICATION: Ovarian cancer, assess treatment response TECHNIQUE: Multiple axial CT images were obtained from thoracic inlet through pubicsymphysis following administration of IV contrast, Omnipaque 350, 100 mL.Reformatted images of the abdomen and pelvis in the coronal and sagittalplanes were generated from the axial data set to facilitate diagnosticaccuracy. Total DLP (Dose-Length Product): 488.05 mGy.cm. Please note: The reportedvalue represents the total of one or more individual components during theCT acquisition on this date and at this time, and as such, the same valuemay appear in more than one CT report depending on theinterpreting/reporting physicians. COMPARISON: CT chest, abdomen and pelvis June 30, 2021; and CT abdomen pelvis 2021 FINDINGS: Chest: Lymph Nodes and Mediastinum: No lymphadenopathy by CT size criteria. Nomediastinal mass lesions. No suspicious thyroid findings. Cardiovascular: The heart is normal in caliber. Thoracic great vessels arepatent. Coronary artery calcification. Right chest wall port with tip atthe superior cavoatrial junction. Lungs and Pleura: No suspicious lung nodules to suggest metastaticdisease. Unchanged right upper lobe 2 mm nodule (series 4 image 75). Nopleural effusions or suspicious thickening. Musculoskeletal and Body Wall: No clearly aggressive bone lesions.Unchanged asymmetric left breast soft tissue with multiple adjacentsurgical clips. No significant axillary adenopathy. Abdomen/Pelvis: Solid Abdominal Organs: Homogenous hepatic enhancement. Tinylow-attenuation focus along the falciform ligament remains unchanged(series 4 image 48). No new suspicious liver lesion. Postcholecystectomywith mild ectasia of the extra hepatic bile duct. Unremarkable spleen,pancreas. Unchanged left adrenal gland myelolipoma. Indeterminate rightadrenal gland nodule measures 2.2 cm, unchanged. Symmetric renalenhancement. 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 Adjacent hypodense nodule measuring 10 mm is also unchanged. Nohydronephrosis. GI Tract/Mesentery/Peritoneum: Stomach is within normal limits. Largedescending duodenal diverticulum. The large and small bowel appear normalin caliber. Ventral abdominal wall hernia containing nondilated smallbowel and portion of the sigmoid colon. No evidence of inflammatory changeor obstruction. No suspicious peritoneal/mesenteric findings. Pelvic Viscera: Partially distended bladder with circumferential wallthickening and mild perivesicular fat stranding. Redemonstration ofheterogenous mass centered within the right vaginal cuff region nowmeasuring 4.6 x 4.0 x 5.0 cm, previously 2.8 x 2.5 x 3.6 cm (series 4image 250). Mass abuts the posterior wall of the bladder. No definitefistula formation. Lymph Nodes/Vasculature: No lymphadenopathy by CT size criteria. Theaortoiliac vasculature is patent and normal in caliber. Free Fluid: No free fluid in the abdomen or pelvis. Musculoskeletal and Body Wall: No aggressive or suspicious findings. IMPRESSION: Chest: No evidence of metastatic disease within the chest. Abdomen/Pelvis: Interval enlargement of vaginal cuff enhancing massconcerning for disease progression. Unchanged right adrenal gland indeterminate nodule. No new evidence of distant metastatic disease or significant adenopathy. CRITICAL RESULT: No. COMMUNICATION: Per this written report. 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
--- OUTSIDE RECORDS SUMMARY | 2024-07-10 12:01 | XMS_ITS | Encounter Summary ---
Author Organization [facility] Address [address] [place] [id number] Care Team Providers Care Airplane And Engine Inspector Name Role Phone Aliyah Valencia MD Unavailable [phone] Flaquita Dorsey DO Primary Care Provider [phone] Reason for Visit * Reason Onset Date Comments Error (VOID this visit) 02/25/2022 Encounter Details Date Type Department Care Team (Late st Contact Info) Description 02/25/2022 Telephone [facility] [address] [place] [address] Penelope Carmona MD [address] [place] [address] Error (VOID this visit) Social [...] [address] [place] [address] Penelope Carmona MD [address] [place] [address] 08/05/2024 9:30 AM EST Appointment [facility] 1 [address] [place] [address] 02/26/2025 9:30 AM EDT Appointment [facility] Radha Lai [facility] [address] [place] [address] 02/26/2025 10:30 AM EDT Office Visit [facility] [address] [facility], [address] [place] [address] Berenice Resendez D, GLUE JOINTER FEEDER 800 [facility] Joelle dg [address] [address] documented as of this encounter Visit Diagnoses Not on filedocumented in this encounter Additional Health Concerns Assessment Noted Time A fall risk assessment has been complete d for the patient 01/24/2022 1:50 PM EDT documented as of this encounter Care Teams Airplane And Engine Inspector Relationship Specialty Start Date End Date Flaquita Dorsey DO [address] [place] [address] PCP - General 12/14/21 Aliyah Valencia MD [address] [place] [address] Referring Physician 03/10/21 documented as of this encounter
--- OUTSIDE RECORDS SUMMARY | 2024-07-10 12:01 | XMS_ITS | Encounter Summary ---
Author Organization [facility] Address [address] [place], [place] [id number] Care Team Providers Care Machine Helper Name Role Phone Aliyah Valencia MD Unavailable [phone] Flaquita Dorsey DO Primary Care Provider [phone] Reason for Visit * Episode Based Medications (Routine) - Closed Specialty Diagnoses / Procedures Referred By Contac t Referred To Contact Diagnoses Carcinoma of fallopian tube, unspecified laterality (CMS/HCC) Procedures Bevacizumab Every 21 Days Penelope Carmona MD [address] [place] [phone] Phone: tel: fax: [facility] Infusion Clinic [address] [place] [address] Phone: tel: Referral ID Status Reason Start Date Expiration Date Visits Re quested Visits Authorized [id number] Closed 04/11/2022 10/11/2023 1 14 Encounter Details Date Type Department Care Team (Latest Contact Info) Description 04/18/2022 12:57 PM EDT - 04/18/2022 11:59 PM EDT Hospital Encounter [facility] [address] [place] [address] Carcinoma of fallopian tube, unspecified [...] Sign Reading Time Taken Comments Blood Pressure 104/69 04/18/2022 12:58 PM EDT Pulse 92 04/18/2022 12:58 PM EDT Temperature 36.7 ??C (98.1 ??F) 04/18/2022 12:58 PM E DT Respiratory Rate 18 04/18/2022 12:58 PM EDT Oxygen Saturation 97% 04/18/2022 12:58 PM EDT Inhaled Oxygen Concentration - - Weight 83.6 kg (184 lb 4.9 oz) 04/18/2022 12:58 PM EDT Height 161.3 cm (5' 3.5 ) 04/18/2022 12:58 PM ED T Body Mass Index 32.14 04/18/2022 12:58 PM EDT documented in this encounter Discharge Instructions * Attachments The following attachments cannot be sent through Care Everywhere. * 24-Hour Urine Protein (Iraqi) documented in this encounter Medications at Time of Discharge aspirin 81 MG chewable tablet Chew 1 tablet (81 mg) 1 (one) time each day. ergocalciferol (Vitamin D-2) 1.25 MG (94888 UT) capsule Take 1 capsule (50,000 Units) [...] Swallow whole with a drink of water. 12/20/202 2 biotin 1000 MCG tablet Take 1 [...] mouth 1 (one) time each day. 3 fluocinolone (Synalar) 0.01 % external solution fluocinolone [...] (one) time each day before breakfast. 3 potassium chloride CR (Klor-Con M10) 10 MEQ ER tablet Take 10 mEq by mouth 1 (one) time each day. Do not crush or chew. 2 prochlorperazine (Compazine) 10 MG tabletIndications :Carcinoma of fallopian tube, unspecified laterality (CMS/HCC) Take 1 tablet (10 mg total) by mouth every 6 (six) hours if needed for nausea or vomiting. 30 tablet 5 08/04/2021 2 prochlorperazine (Compazine) 10 MG tabletIndications :Carcinoma of [...] Upcoming Encounters Date Type Department Care Team ([facility] st Contact Info) Description 08/05/2024 8:00 AM EST Office Visit [facility] Gynecology [address] [facility] [address] [place] [phone] Penelope Carmona MD [address] [facility] [address] [place] [address] 08/05/2024 9:30 AM EST Appointment [facility] Infusion Clinic [address] [place] [phone] 02/26/2025 9:30 AM EDT Appointment [facility] Breast Care Center [facility] [place] [address] [address] [facility] [address] [place] [address] 02/26/2025 10:30 AM EDT Office Visit [facility] Breast Care Center [address] [facility]nd [place] [phone] Berenice Resendez, RECORD CHANGER [address] [facility] [address] [place] [address] documented as of this encounter Procedures Procedure Name Priority Date/Time Associated Diagnosis Comments URINALYSIS, DIPSTICK Routine 04/18/2022 2:00 PM EDT Carcinoma of fallopian tube, unspecified laterality (CMS/HCC) documented in this encounter Results * (ABNORMAL) Urinalysis, manual only (07/20/2022 1:23 PM EST) Color, Urine Yellow LAB URINALYSIS - AUTOMATED METHOD 07/20/2022 2:20 PM EST [facility] Clarity, Urine Clear LAB URINALYSIS - AUTOMATED METHOD 07/20/2022 2:20 PM EST [facility] Spec [place], Urine 1.009 <=1.005 to >=1.030 LAB URINALYSIS - AUTOMATED METHOD 07/20/2022 2:20 PM EST [facility] pH, Urine 5.0 4.5 to 8 LAB URINALYSIS - AUTOMATED METHOD 07/20/2022 2:20 PM EST [facility] Protein, Urine Negative Negative mg/dL LAB URINALYSIS - AUTOMATED METHOD 07/20/2022 2:20 PM EST [facility] Glucose, Urine Negative Negative mg/dL LAB URINALYSIS - AUTOMATED METHOD 07/20/2022 2:20 PM EST [facility] Ketones, Urine Negative Negative mg/dL LAB URINALYSIS - AUTOMATED METHOD 07/20/2022 2:20 PM EST [facility] Blood, Urine Negative Negative LAB URINALYSIS - AUTOMATED METHOD 07/20/2022 2:20 PM EST [facility] Bilirubin, Urine Negative Negative LAB URINALYSIS - AUTOMATED METHOD 07/20/2022 2:20 PM EST [facility] Urobilinogen, Urine 0.2 0.2 to 1.0 mg/dL LAB URINALYSIS - AUTOMATED METHOD 07/20/2022 2:20 PM EST [facility] Leukocytes, Urine Trace(A) Negative LAB URINALYSIS - AUTOMATED METHOD 07/20/2022 2:20 PM EST [facility] Nitrite, Urine Negative Negative LAB URINALYSIS - AUTOMATED METHOD 07/20/2022 2:20 PM EST [facility] Urine Urine specimen obtained by clean catch procedure / Unknown Non-blood Collection / Unknown 07/20/2022 1:23 PM EST 07/20/2022 1:50 PM EST Penelope Dodson MD LAB URINE ORDERABLES Final Result [facility] [address] [place] [id number] * CA 125 (04/25/2022 11:27 AM EDT) CA 125 12.20 <=38.00 U/mL 04/25/2022 12:46 PM EDT [facility] Blood Blood sample taken from central line / Unknown (Port) Long-term Catheter / Unknown 04/25/2022 11:27 AM EDT 04/25/2022 11:40 AM EDT [facility] - 04/25/2022 12:46 PM EDT Performed by Stephie electrochemiluminescent immunoassay. Results obtained with different test methods or kits cannot be used interchangeably. us Penelope Dodson MD LAB BLOOD ORDERABLES Final Result [facility] [address] [place] [address] * (ABNORMAL) Comprehensive metabolic panel (04/25/2022 11:27 AM EDT) Pathologist [facility] Glucose, Plasma 100(H) 74 - 99 mg/dL 04/25/2022 12:11 PM EDT [facility] BUN, Plasma 19 8 - 23 mg/dL 04/25/2022 12:11 PM EDT [facility] Creatinine, Plasma 0.77 0.60 - 1.10 mg/dL 04/25/2022 12:11 PM EDT [facility] BUN/Creatinine Ratio 25 04/25/2022 12:11 PM EDT [facility] Sodium, Plasma 139 136 - 145 mmol/L 04/25/2022 12:11 PM EDT [facility] Potassium, Plasma 3.9 3.7 - 4.8 mmol/L 04/25/2022 12:11 PM EDT [facility] Comment:Reference range for Serum potassium is 0.2 to 0.5 mmol/L higher than Plasma range. Chloride, Plasma 101 97 - 107 mmol/L 04/25/2022 12:11 PM EDT [facility] CO2, Plasma 28 22 - 29 mmol/L 04/25/2022 12:11 PM EDT [facility] Anion Gap 10 6 - 16 mmol/L 04/25/2022 12:11 PM EDT [facility] Total Calcium, Plasma 10.0 8.9 - 10.2 mg/dL 04/25/2022 12:11 PM EDT [facility] Total Protein 6.8 6.3 - 7.9 g/dL 04/25/2022 12:11 PM EDT [facility] Albumin, Plasma 4.1 3.5 - 5.2 g/dL 04/25/2022 12:11 PM EDT [facility] AST, Plasma 17 9 - 36 U/L 04/25/2022 12:11 PM EDT [facility] ALT, Plasma 11 8 - 33 U/L 04/25/2022 12:11 PM EDT [facility] Alkaline Phosphatase, Plasma 70 46 - 142 U/L 04/25/2022 12:11 PM EDT [facility] Total Bilirubin, Plasma 0.3 0.2 - 1.1 mg/dL 04/25/2022 12:11 PM EDT [facility] eGFRcr 80.1 mL/min/1.7 3m*2 04/25/2022 12:11 PM EDT [facility] Comment: Reported eGFRcr in mL/min/1.73m2 is based the CKD-EPI 202 equation that does not use a race coefficient. Effective 02/23/22 our laboratory changed the eGFR calculation to the CKD-EPI 202 equation from the previously reported eGFR, based on the MDRD equation. ??For comparisons between the two equations, please see laboratory website: ??[email or web address] Blood Blood sample taken from central line / Unknown (Port) Long-term Catheter / Unknown 04/25/2022 11:27 AM EDT 04/25/2022 11:40 AM EDT us Penelope Dodson MD LAB BLOOD ORDERABLES Final Result [facility] [address] [place] [address] * (ABNORMAL) CBC and differential (04/25/2022 11:27 AM EDT) WBC Count 5.58 3.70 - 10.30 10*3/uL LAB HEMATOLOGY METHOD 04/25/2022 11:36 AM EDT [facility] RBC Count 3.99 3.90 - 5.20 10*6/uL LAB HEMATOLOGY METHOD 04/25/2022 11:36 AM EDT [facility] HGB 12.4 11.2 - 15.7 g/dL LAB HEMATOLOGY METHOD 04/25/2022 11:36 AM EDT [facility] HCT 39.3 34.0 - 45.0 % LAB HEMATOLOGY METHOD 04/25/2022 11:36 AM EDT [facility] Platelet Count 250 155 - 369 10*3/uL LAB HEMATOLOGY METHOD 04/25/2022 11:36 AM EDT [facility] MCV 99(H) 79 - 98 fL LAB HEMATOLOGY METHOD 04/25/2022 11:36 AM EDT [facility] MCH 31.1 26.0 - 32.0 pg LAB HEMATOLOGY METHOD 04/25/2022 11:36 AM EDT [facility] MCHC 31.6 30.7 - 35.5 g/dL LAB HEMATOLOGY METHOD 04/25/2022 11:36 AM EDT [facility] RDW 14.4 11.5 - 14.5 % LAB HEMATOLOGY METHOD 04/25/2022 11:36 AM EDT [facility] MPV 9.3 8.8 - 12.5 fL LAB HEMATOLOGY METHOD 04/25/2022 11:36 AM EDT [facility] nRBC 0.0 <=0.0 per 100 WBCs LAB HEMATOLOGY METHOD 04/25/2022 11:36 AM EDT [facility] Differential Type Automated LAB HEMATOLOGY METHOD 04/25/2022 11:36 AM EDT [facility] Neutrophils % 65.0 % LAB HEMATOLOGY METHOD 04/25/2022 11:36 AM EDT [facility] Lymphocytes % 25.0 % LAB HEMATOLOGY METHOD 04/25/2022 11:36 AM EDT [facility] Monocytes % 6.0 % LAB HEMATOLOGY METHOD 04/25/2022 11:36 AM EDT [facility] Eosinophils % 3.0 % LAB HEMATOLOGY METHOD 04/25/2022 11:36 AM EDT [facility] Basophils % 1.0 % LAB HEMATOLOGY METHOD 04/25/2022 11:36 AM EDT [facility] Immature Granulocytes % 0.0 % LAB HEMATOLOGY METHOD 04/25/2022 11:36 AM EDT [facility] Neutrophils Absolute 3.66 1.60 - 6.10 10*3/uL LAB HEMATOLOGY METHOD 04/25/2022 11:36 AM EDT [facility] Lymphocytes Absolute 1.38 1.20 - 3.90 10*3/uL LAB HEMATOLOGY METHOD 04/25/2022 11:36 AM EDT [facility] Monocytes Absolute 0.34 0.30 - 0.90 10*3/uL LAB HEMATOLOGY METHOD 04/25/2022 11:36 AM EDT [facility] Eosinophils Absolute 0.14 0.00 - 0.50 10*3/uL LAB HEMATOLOGY METHOD 04/25/2022 11:36 AM EDT [facility] Basophils Absolute 0.04 0.00 - 0.10 10*3/uL LAB HEMATOLOGY METHOD 04/25/2022 11:36 AM EDT [facility] Immature Granulocytes Absolute 0.02 0.00 - 0.06 10*3/uL LAB HEMATOLOGY METHOD 04/25/2022 11:36 AM EDT [facility] Blood Blood sample taken from central line / Unknown (Port) Long-term Catheter / Unknown 04/25/2022 11:27 AM EDT 04/25/2022 11:33 AM EDT Narrative [facility] - 04/25/2022 11:36 AM EDT Therapeutic decision making should be based on absolute values, rather than percentages. us Penelope Dodson MD LAB BLOOD ORDERABLES Final Result [facility] [address] [place], [place] [id number] * (ABNORMAL) Urinalysis, manual only (04/18/2022 2:00 PM EDT) Color, Urine Yellow LAB URINALYSIS - AUTOMATED METHOD 04/18/2022 2:41 PM EDT [facility] Clarity, Urine Clear LAB URINALYSIS - AUTOMATED METHOD 04/18/2022 2:41 PM EDT [facility] Spec [place], Urine 1.021 <=1.005 to >=1.030 LAB URINALYSIS - AUTOMATED METHOD 04/18/2022 2:41 PM EDT [facility] pH, Urine 6.5 4.5 to 8 LAB URINALYSIS - AUTOMATED METHOD 04/18/2022 2:41 PM EDT [facility] Protein, Urine 100(A) Negative mg/dL LAB URINALYSIS - AUTOMATED METHOD 04/18/2022 2:41 PM EDT [facility] Glucose, Urine Negative Negative mg/dL LAB URINALYSIS - AUTOMATED METHOD 04/18/2022 2:41 PM EDT [facility] Ketones, Urine Negative Negative mg/dL LAB URINALYSIS - AUTOMATED METHOD 04/18/2022 2:41 PM EDT [facility] Blood, Urine Large(A) Negative LAB URINALYSIS - AUTOMATED METHOD 04/18/2022 2:41 PM EDT [facility] Bilirubin, Urine Negative Negative LAB URINALYSIS - AUTOMATED METHOD 04/18/2022 2:41 PM EDT [facility] Urobilinogen, Urine 0.2 0.2 to 1.0 mg/dL LAB URINALYSIS - AUTOMATED METHOD 04/18/2022 2:41 PM EDT [facility] Leukocytes, Urine Small(A) Negative LAB URINALYSIS - AUTOMATED METHOD 04/18/2022 2:41 PM EDT [facility] Nitrite, Urine Negative Negative LAB URINALYSIS - AUTOMATED METHOD 04/18/2022 2:41 PM EDT [facility] Urine Urine specimen obtained by clean catch procedure / Unknown Non-blood Collection / Unknown 04/18/2022 2:00 PM EDT 04/18/2022 2:32 PM EDT Penelope Dodson MD LAB URINE ORDERABLES Final Result [facility] [address] [place] [address] documented in this encounter Visit Diagnoses Diagnosis Carcinoma of fallopian tube, unspecified laterality (CMS/HCC)- Primary Neuropathy Mononeuritis of unspecified site documented in this encounter Administered Medications Inactive Administered Medications - up to 3 most recent administrations Medication Order MAR Action Action Date Dose Rate Site potassium chloride CR (Klor-Con) ER tablet 40 mEq 40 mEq, Oral, Once as needed, 1 dose, Starting on Mon04/18/22 at 1305, Until Mon04/18/22 at 1333, Routine, For potassium value 3.2 to 3.4Indications:Neuropathy Given 04/18/2022 1:33 PM EDT 40 mEq documented in this encounter Additional Health Concerns Assessment Noted Time A fall risk assessment has been complete d for the patient 04/11/2022 2:54 PM EDT documented as of this encounter Care Teams Machine Helper Relationship Specialty Start Date End Date Flaquita Dorsey DO [address] [place], [place] [id number] PCP - General 12/14/21 Aliyah Valencia MD [address] [place] [id number] Referring Physician 03/10/21 documented as of this encounter
--- OUTSIDE RECORDS SUMMARY | 2024-07-10 12:01 | XMS_ITS | Encounter Summary ---
Author Organization Healthcare Address [address] [id number] Care Team Providers Care Golf Coach Name Role Phone Aliyah Valencia MD Unavailable [phone] Flaquita Dorsey DO Primary Care Provider [phone] Encounter Details Date Type Department Care Team (Latest Contact Info) Description 12/14/2021 1:00 PM EDT - 12/14/2021 11:59 PM EDT Hospital Encounter [facility] [address] [address] Malignant neoplasm of overlapping sites of left breast in female, estrogen receptor positive (CMS/HCC) Discharge Disposition: Home or Self Care [...] suspected to have Coronavirus/COVID-19? No / Unsure 12/14/2021 12:19 PM EDT documented as of this encounter Medications at Time of Discharge aspirin 81 MG chewable tablet Chew 1 tablet (81 mg) 1 (one) time each day. ergocalciferol (Vitamin D-2) 1.25 MG (62038 UT) capsule Take 1 capsule (50,000 Units) [...] mouth 1 (one) time each day. 4 denosumab (Prolia) 60 MG/ML injection 3 dexamethasone (Decadron) 4 MG tabletIndications :Carcinoma of fallopian tube, unspecified laterality (CMS/HCC) Take 2 tablets (8 mg total) by mouth 1 (one) time each day. On days 2 and 3. 24 tablet 08/04/2021 2 famciclovir (Famvir) 125 MG tablet Take 125 [...] total) by mouth every night. 30 capsule 3 10/06/2021 2 hydrOXYzine HCl (Atarax) 25 MG tablet 12/13/2021 3 ketoconazole (NIZOral) 2 % shampoo 08/12/2021 3 ketoconazole (NIZOral) 2 % shampoo ketoconazole 2 % shampoo APPLY TO THE AFFECTED AREA(S), LATHER, LEAVE IN PLACE FOR 5 MINUTES, AND THEN RINSE OFF WITH WATER BY TOPICAL ROUTE QOD 05/17/202 3 levothyroxine (Synthroid, Levoxyl) 75 MCG tablet [...] or vomiting. 30 tablet 5 08/04/2021 2 senna-docusate sodium (Senokot-S) 8.6-50 MG tablet 09/28/2019 [...] 08/05/2024 8:00 AM EST Office Visit [facility] Gynecology [address] [facility] [address] [place] [address] Penelope Carmona MD [address] [facility] [address] [facility] [address] [place] [address] 08/05/2024 9:30 AM EST Appointment [facility] 1 [address] [place] [address] 02/26/2025 9:30 AM EDT Appointment [facility] [address] [facility] 800 [place] [address] 02/26/2025 10:30 AM EDT Office Visit [facility] Breast Care Center [address] [facility], 2nd [place] [address] Berenice Resendez, INVESTMENT UNDERWRITER [address] [facility] [address] [place] [address] documented as of this encounter Procedures Procedure Name Priority Date/Time Associated Diagnosis Comments US BREAST LIMITED LEFT STAT 12/14/2021 1:24 PM EDT Malignant neoplasm of overlapping sites of left breast in female, estrogen receptor positive (CMS/HCC) documented in this encounter Results * US Breast Limited Left (12/14/2021 1:24 PM EDT) Anatomical Region Laterality Modality Breast Left Ultrasound Impressions 12/14/2021 1:41 PM EDT Right Breast BI-RADS Code: ??BI-RADS 1, Negative. Left Breast BI-RADS Code: BI-RADS 2, Benign finding. RECOMMENDATIONS: Right Breast Recommendations: Routine Screening Mammogram in 1 Year Left Breast Recommendations: Routine Screening Mammogram in 1 Year CRITICAL RESULT: No. COMMUNICATION: The results and recommendations were discussed with the patient and a printed lay language version of the imaging report was given to the patient at the time of the visit. The mammogram was read with the assistance of CAD and tomosynthesis. Dictated by Jarad Carey on 12/14/2021 1:32 PM Signed by Jarad Carey on 12/14/2021 1:41 PM Narrative 12/14/2021 1:41 PM EDT Exam/Procedure: MAMMOGRAPHY BREAST DIAGNOSTIC TOMOSYNTHESIS BILATERAL ordered by CARA ROMERO, [id number] CLINICAL INDICATION: 76-year-old presenting for BI-RADS 3 follow-up for finding in the left breast. Placed in surveillance on 10/10/2017. History of left breast lumpectomy in September 2016, malignant. TECHNIQUE: Bilateral diagnostic mammogram was performed. Computer assisted detection was used in the interpretation of this study. Tomosynthesis was used in the interpretation of this study. Multiplanar, adan scale directed ultrasound of the left breast with limited Doppler vascular ultrasound was performed. COMPARISON: 12/08/2020, 06/08/2020, 12/02/2019, 04/25/2019 FINDINGS: Breast Density: Scattered fibroglandular density Mammogram Findings: Finding 1: Focal asymmetry in the left breast upper inner quadrant approximately 10:00 position, 8 cm from the nipple measuring 16 mm, similar to prior. Ultrasound was done to further evaluate. Finding 2: Redemonstrated is the postlumpectomy scar in the left breast, similar to prior. No suspicious masses, calcifications or areas of architectural distortion in either breast. Left Breast Ultrasound Findings: Finding 1: Focused ultrasound of the left breast at 10:00 position, 8 cm from the nipple redemonstrates the irregular avascular area and tissue marker with indistinct margins measuring 10 mm, previously 11 mm. Internal echotexture is hypoechoic. This is most compatible with previously biopsied fat necrosis and has remained stable over 2 years. Procedure Note Jarad Carey MD - 12/14/2021 Exam/Procedure: MAMMOGRAPHY BREAST DIAGNOSTIC TOMOSYNTHESIS BILATERALordered by CARA ROMERO, [id number] CLINICAL INDICATION: 76-year-old presenting for BI-RADS 3 follow-up for finding in the leftbreast. Placed in surveillance on 10/10/2017. History of left breastlumpectomy in September 2016, malignant. TECHNIQUE: Bilateral diagnostic mammogram was performed. Computer assisted detection was used in the interpretation of this study.Tomosynthesis was used in the interpretation of this study. Multiplanar, adan scale directed ultrasound of the left breast withlimited Doppler vascular ultrasound was performed. COMPARISON: 12/08/2020, 06/08/2020, 12/02/2019, 04/25/2019 FINDINGS: Breast Density: Scattered fibroglandular density Mammogram Findings: Finding 1: Focal asymmetry in the left breast upper inner quadrantapproximately 10:00 position, 8 cm from the nipple measuring 16 mm,similar to prior. Ultrasound was done to further evaluate. Finding 2: Redemonstrated is the postlumpectomy scar in the left breast,similar to prior. No suspicious masses, calcifications or areas of architectural distortionin either breast. Left Breast Ultrasound Findings: Finding 1: Focused ultrasound of the left breast at 10:00 position, 8 cmfrom the nipple redemonstrates the irregular avascular area and tissuemarker with indistinct margins measuring 10 mm, previously 11 mm. Internalechotexture is hypoechoic. This is most compatible with previouslybiopsied fat necrosis and has remained stable over 2 years. IMPRESSION: Right Breast BI-RADS Code: BI-RADS 1, Negative. Left Breast BI-RADS Code: BI-RADS 2, Benign finding. RECOMMENDATIONS: Right Breast Recommendations: Routine Screening Mammogram in 1 Year Left Breast Recommendations: Routine Screening Mammogram in 1 Year CRITICAL RESULT: No. COMMUNICATION: The results and recommendations were discussed with the patient and aprinted lay language version of the imaging report was given to thepatient at the time of the visit. The mammogram was read with theassistance of CAD and tomosynthesis. Dictated by Jarad Carey on 12/14/2021 1:32 PM Signed by Jarad Carey on 12/14/2021 1:41 PM us Cara Romero MD IMG BI PROCEDURES Final Resul t documented in this encounter Visit Diagnoses Diagnosis Malignant neoplasm of overlapping sites of left breast in female, estrogen receptor positive (CMS/HCC) documented in this encounter Additional Health Concerns Assessment Noted Time A fall risk assessment has been complete d for the patient 11/17/2021 1:43 PM EDT documented as of this encounter Care Teams Golf Coach Relationship Specialty Start Date End Date Flaquita Dorsey DO [address] [place], [place] [id number] PCP - General 12/14/21 Aliyah Valencia MD [address] [place] [address] Referring Physician 03/10/21 documented as of this encounter
--- OUTSIDE RECORDS SUMMARY | 2024-07-10 12:01 | XMS_ITS | Encounter Summary ---
Author Organization [facility] Address [address] [place] [address] Care Team Providers Care Terry Cloth Cutter Hand Name Role Phone Aliyah Valencia MD Unavailable [phone] Flaquita Dorsey DO Primary Care Provider [phone] Reason for Visit * Reason Onset Date Comments Error (VOID this visit) 02/25/2022 Encounter Details Date Type Department Care Team (Late st Contact Info) Description 02/25/2022 Telephone [facility] [address] [place] [address] Penelope Carmona MD [address] [place] [address] Error (VOID this visit) Social [...] [address] [place] [address] Penelope Carmona MD [address] [place] [address] 08/05/2024 9:30 AM EST Appointment [facility] 1 [address] [place] [address] 02/26/2025 9:30 AM EDT Appointment [facility] [address] [facility] 800 [place] [address] 02/26/2025 10:30 AM EDT Office Visit [facility] [address] [facility], 2nd [place] [address] Berenice Resendez D, RN TEACHER 800 [facility] [address]elle dg [address] [address] documented as of this encounter Visit Diagnoses Not on filedocumented in this encounter Additional Health Concerns Assessment Noted Time A fall risk assessment has been complete d for the patient 01/24/2022 1:50 PM EDT documented as of this encounter Care Teams Terry Cloth Cutter Hand Relationship Specialty Start Date End Date Flaquita Dorsey DO [address] [place] [address] PCP - General 12/14/21 Aliyah Valencia MD [address] [place] [address] Referring Physician 03/10/21 documented as of this encounter
--- OUTSIDE RECORDS SUMMARY | 2024-07-10 12:01 | XMS_ITS | Encounter Summary ---
Author Organization Healthcare Address [address] [place] [address] Care Team Providers Care Health Safety Manager Name Role Phone Aliyah Valencia MD Unavailable [phone] Flaquita Dorsey DO Primary Care Provider [phone] Encounter Details Date Type Department Care Team (Latest Contact Info) Description 12/14/2021 Travel Social History Tobacco Use Types Packs/Day [...] AM EST Office Visit [facility] 800 [facility] [address] [place] [address] Penelope Carmona MD 800 [facility] [address] [place] [address] 08/05/2024 9:30 AM EST Appointment [facility] [address] [place] [address] 02/26/2025 9:30 AM EDT Appointment [facility] [address] Building [address] [place] [address] 02/26/2025 10:30 AM EDT Office Visit [facility] [address] [facility], 2nd [place] [address] Berenice Resendez, IGNITION EXPERT [address] [facility] [address] [place] [address] documented as of this encounter Visit Diagnoses Not on filedocumented in this encounter Additional Health Concerns Assessment Noted Time A fall risk assessment has been complete d for the patient 11/17/2021 1:43 PM EDT documented as of this encounter Care Teams Health Safety Manager Relationship Specialty Start Date End Date Flaquita Dorsey DO [address] [place] [address] PCP - General 12/14/21 Aliyah Valencia MD [address] [place] [address] Referring Physician 03/10/21 documented as of this encounter
--- OUTSIDE RECORDS SUMMARY | 2024-07-10 12:01 | XMS_ITS | Encounter Summary ---
Author Organization [facility] Address [address] [place] [address] Care Team Providers Care Wash Worker Name Role Phone Aliyah Valencia MD Unavailable Flaquita Dorsey DO Primary Care Provider [phone] Encounter Details Date Type Department Care Team (Late Contact Info) Description 12/14/2021 Orders Only [facility] Breast Care Center [address] [facility], 2nd [place] [address] Bonita Farmer LPN [facility] Malignant neoplasm of female breast, unspecified estrogen receptor status, unspecified laterality, unspecified site of breast (CMS/HCC) (Primary Dx) Social History Tobacco Use [...] Description 08/05/2024 8:00 AM EST Office Visit [facility] Gynecology [address] [place] [address] Penelope Carmona MD [address] [place] [address] 08/05/2024 9:30 AM EST Appointment [facility] 1 [address] [place] [address] 02/26/2025 9:30 AM EDT Appointment [facility] Breast [facility] [place] [facility] [address] [address] [address] [facility] 800 [place] [address] 02/26/2025 10:30 AM EDT Office Visit [facility] Breast Care Center [address] [facility], 2nd [place] [address] Berenice Resendez, DIRECTOR REGULATORY COMPLIANCE [address] [facility] [address] [facility] [address] [place] [address] documented as of this encounter Results * [...] 04/25/2019 Mammography Breast Diagnostic Tomosynthesis Bilateral at [facility] 12/02/2019 Mammography Breast Diagnostic Tomosynthesis Bilateral at [facility] 06/08/2020 Mammography Breast Diagnostic Tomosynthesis Left at [facility] 12/08/2020 Mammography Breast Diagnostic Tomosynthesis Bilateral at [facility] 12/14/2021 Mammography Breast Diagnostic Tomosynthesis Bilateral at [facility] BREAST COMPOSITION: The breasts have scattered areas of fibroglandular density. FINDINGS: There are post-lumpectomy changes present in the left breast. There is no evidence of suspicious masses, calcifications, or other abnormal findings. Carlene Bueno MD IMG BI PROCEDURES Final Result documented in this encounter Visit Diagnoses Diagnosis Malignant neoplasm of female breast, unspecified estrogen receptor status, unspecified laterality, unspecified site of breast (CMS/HCC)- Primary Malignant neoplasm of female breast, unspecified estrogen receptor status, unspecified laterality, unspecified site of breast (CMS/HCC) documented in this encounter Additional Health Concerns Assessment Noted Time A fall risk assessment has been complete d for the patient 11/17/2021 1:43 PM EDT documented as of this encounter Care Teams Wash Worker Relationship Specialty Start Date End Date Flaquita Dorsey DO [address] [place] [address] PCP - General 12/14/21 Aliyah Valencia MD [address] [address] Referring Physician 03/10/21 documented as of this encounter
--- OUTSIDE RECORDS SUMMARY | 2024-07-10 12:01 | XMS_ITS | Encounter Summary ---
Author Organization [facility] Address [address] [place], [place] [address] Care Team Providers Care Online Marketing Manager Name Role Phone Aliyah Valencia MD Unavailable [phone] Flaquita Dorsey DO Primary Care Provider [phone] Reason for Referral * Imaging (Routine) - Closed Specialty Diagnoses / Procedures Referred By Contac t Referred To Contact Radiology Diagnoses Carcinoma of fallopian tube, unspecified laterality (CMS/HCC) Procedures CT Chest w IV Contrast Penny Carmona MD [address] [address] Phone: tel: fax: Referral ID Status Reason Start Date Expiration Date Visits Re quested Visits Authorized [id number] Closed 01/24/2022 07/26/2023 1 1 * Imaging (Routine) - Closed Specialty Diagnoses / Procedures Referred By Contac t Referred To Contact Radiology Diagnoses Carcinoma of fallopian tube, unspecified laterality (CMS/HCC) Procedures CT Abdomen Pelvis w IV Contrast Penny Carmona MD [address] [address] Phone: tel: fax: Referral ID Status Reason Start Date Expiration Date Visits Re quested Visits Authorized [id number] Closed 01/24/2022 07/26/2023 1 1 Reason for Visit * Imaging (Routine) - Closed Specialty Diagnoses / Procedures Referred By Contac t Referred To Contact Radiology Diagnoses Carcinoma of fallopian tube, unspecified laterality (CMS/HCC) Procedures CT Abdomen Pelvis w IV Contrast Penny Carmona MD [address] [place] [address] Phone: tel: fax: Referral ID Status Reason Start Date Expiration Date Visits Re quested Visits Authorized [id number] Closed 01/24/2022 07/26/2023 1 1 Encounter Details Date Type Department Care Team (Latest Contact Info) Description 04/11/2022 12:32 PM EDT - 04/11/2022 11:59 PM EDT Hospital Encounter [facility] [address] [place] [address] Carcinoma of fallopian tube, unspecified laterality (CMS/HCC) [...] PM EDT documented as of this encounter Discharge Instructions * Attachments The following attachments cannot be sent through Care Everywhere. * Contrast Imaging Discharge Instructions ([place]) (Malay) documented in this encounter Medications at Time of Discharge aspirin 81 MG chewable tablet Chew 1 tablet (81 mg) 1 (one) time each day. ergocalciferol (Vitamin D-2) 1.25 MG (31183 UT) capsule Take 1 capsule (50,000 Units) [...] AM EST Office Visit [facility] 800 [facility] [address] [place] [address] Penny Carmona MD [address] [facility] [address] [facility] [address] [place] [address] 08/05/2024 9:30 AM EST Appointment [facility] 1 [address] [place] [address] 02/26/2025 9:30 AM EDT Appointment [facility] [address] [facility] 800 [place] [address] 02/26/2025 10:30 AM EDT Office Visit [facility] [address] [facility], 2nd [place] [address] Berenice Resendez, ORCHESTRATOR 800 [facility] [address] [facility] [address] [place] [address] documented as of this encounter Procedures Procedure Name Priority Date/Time Associated Diagnosis Comments CT ABDOMEN PELVIS W IV CONTRAST Routine 04/11/2022 1:25 PM EDT Carcinoma of fallopian tube, unspecified laterality (CMS/HCC) CT CHEST W IV CONTRAST Routine 04/11/2022 1:25 PM EDT Carcinoma of fallopian tube, unspecified laterality (CMS/HCC) documented in this encounter Results * CT Chest w [...] W IV CONTRAST ordered by PENNY BANERJEE PREMIER, [id number] CLINICAL INDICATION: Ovarian cancer, assess treatment response [...] W IV CONTRAST ordered by PENNY BANERJEE PREMIER,[id number] CLINICAL INDICATION: Ovarian cancer, assess treatment response [...] W IV CONTRAST ordered by PENNY DODSON, [id number] CLINICAL INDICATION: Ovarian cancer, assess treatment response [...] W IV CONTRAST ordered by PENNY BANERJEE PREMIER,[id number] CLINICAL INDICATION: Ovarian cancer, assess treatment response [...] Once in imaging, 1 dose, Starting on 04/11/22 at 1238, Until Mon04/11/22 at 1316, Routine, Imaging Protocol Orders Given 04/11/2022 1:16 PM EDT 100 mL iohexol (OMNIPaque) 9 MG/ML oral contrast 500 mL 500 mL, Oral, Once in imaging, 1 dose, Starting on Mon04/11/22 at 1238, Until Mon04/11/22 at 1237, Routine, Imaging Protocol Orders Given 04/11/2022 12:37 PM EDT 500 mL documented in this encounter Additional Health Concerns Assessment Noted Time A fall risk assessment has been complete d for the patient 04/11/2022 2:54 PM EDT documented as of this encounter Care Teams Online Marketing Manager Relationship Specialty Start Date End Date Flaquita Dorsey DO [address] [place] [address] PCP - General 12/14/21 Aliyah Valencia MD [address] [place] [address] Referring Physician 03/10/21 documented as of this encounter
--- OUTSIDE RECORDS SUMMARY | 2024-07-10 12:01 | XMS_ITS | Encounter Summary ---
Author Organization Healthcare Address [address] [place] [address] Care Team Providers Care Research Methods Instructor Name Role Phone Aliyah Valencia MD Unavailable [phone] Flaquita Dorsey DO Primary Care Provider [phone] Encounter Details Date Type Department Care Team (Late Contact Info) Description 04/15/2022 Refill [facility] [address] [place] [address] Penelope Carmona MD [address] [place] [address] Social History Tobacco Use Types [...] [address] [place] [address] Penelope Carmona MD 800 [facility] [address] [place] [address] 08/05/2024 9:30 AM EST Appointment [facility] 1 [address] [place] [address] 02/26/2025 9:30 AM EDT Appointment [facility] [place] [address] [address] [facility] 800 [place] [address] 02/26/2025 10:30 AM EDT Office Visit [facility] [address] [facility], 2nd [place] [address] Berenice Resendez, CAR REPOSSESSOR 800 [facility] [address] [facility] [address] [place] [address] documented as of this encounter Visit Diagnoses Not on filedocumented in this encounter Additional Health Concerns Assessment Noted Time A fall risk assessment has been complete d for the patient 04/11/2022 2:54 PM EDT documented as of this encounter Care Teams Research Methods Instructor Relationship Specialty Start Date End Date Flaquita Dorsey DO [address] [place] [address] PCP - General 12/14/21 Aliyah Valencia MD [address] [place] [address] Referring Physician 03/10/21 documented as of this encounter
--- OUTSIDE RECORDS SUMMARY | 2024-07-10 12:01 | XMS_ITS | Encounter Summary ---
Author Organization Healthcare Address [address] [place] [address] Care Team Providers Care Food Technology Teacher Name Role Phone Aliyah Valencia MD Unavailable [phone] Flaquita Dorsey DO Primary Care Provider [phone] Encounter Details Date Type Department Care Team (Latest Contact Info) Description 04/11/2022 Travel Social History Tobacco Use Types Packs/Day [...] AM EST Office Visit [facility] 800 [facility] [address] [place] [address] Penelope Carmona MD 800 [facility] [address] [place] [address] 08/05/2024 9:30 AM EST Appointment [facility] 1 [address] [place] [address] 02/26/2025 9:30 AM EDT Appointment [facility] [address] Building 800 [place] [address] 02/26/2025 10:30 AM EDT Office Visit [facility] 7[address] [facility], 2nd [place] [address] Berenice Resendez, MECHANIC SENIOR 800 [facility] [address] [place] [address] documented as of this encounter Visit Diagnoses Not on filedocumented in this encounter Additional Health Concerns Assessment Noted Time A fall risk assessment has been complete d for the patient 04/11/2022 2:54 PM EDT documented as of this encounter Care Teams Food Technology Teacher Relationship Specialty Start Date End Date Flaquita Dorsey DO [address] [place] [address] PCP - General 12/14/21 Aliyah Valencia MD [address] [place] [address] Referring Physician 03/10/21 documented as of this encounter
--- OUTSIDE RECORDS SUMMARY | 2024-07-10 12:01 | XMS_ITS | Encounter Summary ---
Author Organization Healthcare Address [address] [place] [address] Care Team Providers Care Virology Teacher Name Role Phone Aliyah Valencia MD Unavailable [phone] Flaquita Dorsey DO Primary Care Provider [phone] Encounter Details Date Type Department Care Team (Late st Contact Info) Description 12/29/2021 Telephone [facility] [address] [place] [address] Penelope Carmona MD [address] [facility] [address] [place] [address] Social History Tobacco Use Types Packs/Day Years [...] encounter Miscellaneous Notes * Telephone Encounter - Fer Guevara - 12/29/2021 12:27 PM EDT Spoke with pt. She is aware. Thank you! documented in this encounter Plan of Treatment Upcoming Encounters Date Type Department Care Team (Late st Contact Info) Description 08/05/2024 8:00 AM EST Office Visit [facility] [address] [place] [address] Penelope Carmona MD [address] [facility] [address] [facility] [address] [place] [address] 08/05/2024 9:30 AM EST Appointment [facility] 1 [address] [place] [phone] 02/26/2025 9:30 AM EDT Appointment [facility] [address] [facility] 800 [place] [address] 02/26/2025 10:30 AM EDT Office Visit [facility] [address] [facility], [address]nd [place] [address] Berenice Resendez, FLORAL ASSOCIATE [address] [facility] [address] [facility] [address] [place] [address] documented as of this encounter Visit Diagnoses Not on filedocumented in this encounter Additional Health Concerns Assessment Noted Time A fall risk assessment has been complete d for the patient 11/17/2021 1:43 PM EDT documented as of this encounter Care Teams Virology Teacher Relationship Specialty Start Date End Date Flaquita Dorsey DO [address] [place], [place] [id number] PCP - General 12/14/21 Aliyah Valencia MD [address] [place] [address] Referring Physician 03/10/21 documented as of this encounter
--- OUTSIDE RECORDS SUMMARY | 2024-07-10 12:01 | XMS_ITS | Encounter Summary ---
Author Organization Healthcare Address [address] [place] [address] Care Team Providers Care Language Tutor Name Role Phone Aliyah Valencia MD Unavailable [phone] Flaquita Dorsey DO Primary Care Provider [phone] Encounter Details Date Type Department Care Team (Late st Contact Info) Description 04/22/2022 Telephone [facility] [address] [place] [address] Georgette Acevedo RN [facility] Social History Tobacco [...] Telephone Encounter - Georgette Acevedo RN - 04/22/2022 10:30 AM EDT Attempted to notify patient of appt time change for 04/25 from 1:00pm to 11:00 am with LAB. Receivedno answer at this time. Georgette Acevedo RN documented in this encounter Plan of Treatment Upcoming Encounters Date Type Department Care Team (Late st Contact Info) Description 08/05/2024 8:00 AM EST Office Visit [facility] [address] [place] [address] Penelope Carmona MD 800 [facility] [address] [facility] [address] [place] [address] 08/05/2024 9:30 AM EST Appointment [facility] 1 [address] [place] [address] 02/26/2025 9:30 AM EDT Appointment [facility] [address] [facility] 800 [place] [address] 02/26/2025 10:30 AM EDT Office Visit [facility] [address] [facility], 2nd [place] [address] Berenice Resendez, DIVER'S TENDER 800 [facility] [address] [facility] [address] [place] [address] documented as of this encounter Visit Diagnoses Not on filedocumented in this encounter Additional Health Concerns Assessment Noted Time A fall risk assessment has been complete d for the patient 04/11/2022 2:54 PM EDT documented as of this encounter Care Teams Language Tutor Relationship Specialty Start Date End Date Flaquita Dorsey DO [address] [place], [place] [id number] PCP - General 12/14/21 Aliyah Valencia MD [address] [place] [place] [address] Referring Physician 03/10/21 documented as of this encounter
--- OUTSIDE RECORDS SUMMARY | 2024-07-10 12:01 | XMS_ITS | Encounter Summary ---
Author Organization [facility] Address [address] [place] [address] Care Team Providers Care Screening Representative Name Role Phone Aliyah Valencia MD Unavailable [phone] Flaquita Dorsey DO Primary Care Provider [phone] Encounter Details Date Type Department Care Team (Late Contact Info) Description 02/25/2022 Orders Only [facility] [address] [place] [address] Vannesa Leonard MD [address] [place] [id number] Social History Tobacco Use Types Packs/Day Years [...] Progress Notes - Vannesa Leonard MD - 02/25/2022 12:28 PM EDT Refill for gabapentin provided. documented in this encounter Plan of Treatment Upcoming Encounters Date Type Department Care Team (Late Contact Info) Description 08/05/2024 8:00 AM EST Office Visit [facility] [address] [place] [address] Penelope Carmona MD 800 [facility] [address] [place] [address] 08/05/2024 9:30 AM EST Appointment [facility] 1 [address] [place] [address] 02/26/2025 9:30 AM EDT Appointment [facility] [place] [address] [address] [facility] 800 [place] [address] 02/26/2025 10:30 AM EDT Office Visit [facility] 7[address] [facility], 2nd [place] [address] Berenice Resendez, CORPORATE OPERATIONS COMPLIANCE MANAGER 800 [facility] Joelle [facility] [address] [place] [address] documented as of this encounter Visit Diagnoses Not on filedocumented in this encounter Additional Health Concerns Assessment Noted Time A fall risk assessment has been complete d for the patient 01/24/2022 1:50 PM EDT documented as of this encounter Care Teams Screening Representative Relationship Specialty Start Date End Date Flaquita Dorsey DO [address] [place] [address] PCP - General 12/14/21 Aliyah Valencia MD [address] [place] [address] Referring Physician 03/10/21 documented as of this encounter
--- OUTSIDE RECORDS SUMMARY | 2024-07-10 12:01 | XMS_ITS | Encounter Summary ---
Author Organization Healthcare Address [address] [place] [address] Care Team Providers Care Can Filling Machine Operator Name Role Phone Aliyah Valencia MD Unavailable [phone] Flaquita Dorsey DO Primary Care Provider [phone] Encounter Details Date Type Department Care Team (Late st Contact Info) Description 01/05/2022 Telephone [facility] [address] [place] [address] Georgette Acevedo RN [facility] Social History Tobacco [...] Telephone Encounter - Georgette Acevedo RN - 01/05/2022 11:20 AM EDT Patient called in wondering when she can be done with weekly labs. After speaking with Ludmila Padgett APRN, patient was encouraged to get one more week of labs. She plans on getting them done on 01/11. I told her that if all labs look good on 01/11, we can discontinue weekly labs. She verbalized understanding. Georgette Acevedo, RN documented in this encounter Plan of Treatment Upcoming Encounters Date Type Department Care Team (Late st Contact Info) Description 08/05/2024 8:00 AM EST Office Visit [facility] 800 [facility] [address] [place] [address] Penelope Carmona MD [address] [facility] [address] [facility] [address] [place] [address] 08/05/2024 9:30 AM EST Appointment [facility] 1 [address] [place] [address] 02/26/2025 9:30 AM EDT Appointment [facility] [place] [address] [address] [facility] 800 [place] [address] 02/26/2025 10:30 AM EDT Office Visit [facility] [place] [address] [facility], 2nd [place] [address] Berenice Resendez, ONCOLOGY PHYSICIAN ASSISTANT [address] [facility] [address] [facility] [address] [place] [address] documented as of this encounter Visit Diagnoses Not on filedocumented in this encounter Additional Health Concerns Assessment Noted Time A fall risk assessment has been complete d for the patient 11/17/2021 1:43 PM EDT documented as of this encounter Care Teams Can Filling Machine Operator Relationship Specialty Start Date End Date Flaquita Dorsey DO [address] [place] [address] PCP - General 12/14/21 Aliyah Valencia MD [address] [place] [address] Referring Physician 03/10/21 documented as of this encounter
--- OUTSIDE RECORDS SUMMARY | 2024-07-10 12:01 | XMS_ITS | Encounter Summary ---
Author Organization Healthcare Address [address] [place] [address] Care Team Providers Care Settlement Technician Name Role Phone Aliyah Valencia MD Unavailable Flaquita Dorsey DO Primary Care Provider [phone] Encounter Details Date Type Department Care Team (Latest Contact Info) Description 04/18/2022 Travel Social History Tobacco Use Types Packs/Day [...] [facility] [address] [place] [address] Penelope Carmona MD [address] [facility] [address] [place] [address] 08/05/2024 9:30 AM EST Appointment [facility] 1 [address] [place] [address] 02/26/2025 9:30 AM EDT Appointment [facility] [address] [place] [address] 02/26/2025 10:30 AM EDT Office Visit [facility] [address] [facility], 2nd [place] [address] Berenice Resendez, PSYCHIATRIC NURSING ASSISTANT [address] [facility] [address] [place] [address] documented as of this encounter Visit Diagnoses Not on filedocumented in this encounter Additional Health Concerns Assessment Noted Time A fall risk assessment has been complete d for the patient 04/11/2022 2:54 PM EDT documented as of this encounter Care Teams Settlement Technician Relationship Specialty Start Date End Date Flaquita Dorsey DO [address] [place] [address] PCP - General 12/14/21 Aliyah Valencia MD [address] [place] [address] Referring Physician 03/10/21 documented as of this encounter
--- OUTSIDE RECORDS SUMMARY | 2024-07-10 12:01 | XMS_ITS | Encounter Summary ---
Author Organization Healthcare Address [address] [place] [address] Care Team Providers Care Electric Lineman Name Role Phone Aliyah Valencia MD Unavailable [phone] Flaquita Dorsey DO Primary Care Provider [phone] Encounter Details Date Type Department Care Team (Late st Contact Info) Description 04/15/2022 Telephone [facility] [address] [place] [address] Zeenat Caballero, PharmD [facility] [address] [place] [id number] Social History Tobacco Use Types Packs/Day Years [...] Telephone Encounter - Zeenat Caballero, PharmD - 04/15/2022 10:08 AM EDT Prior Authorization Information Specialty Medication: cyclophosphamide Qty/Days Supply: Diagnosis Code: C54.9 Insurance Name: Medicare B Insurance Type: Medicare Reference Number: NA Approval Dates: NA Filling [facility]: [facility] Specialty Medication Initial Care Plan Daniela John is a 76 y.o. 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 Plan for administration of therapy in patient's home Chart Review Calcium, Morphine, and Sulfacetamide Current Outpatient Medications Medication Instructions anastrozole (ARIMIDEX) 1 mg, Daily aspirin 81 mg, Oral, Daily biotin 1,000 mcg, Oral, Daily cyclophosphamide (CYTOXAN) 50 mg, Oral, Daily denosumab (Prolia) 60 MG/ML injection Prolia ergocalciferol (VITAMIN D-2) 50,000 Units, Oral, Weekly famciclovir (FAMVIR) 125 mg, Oral, Daily fexofenadine (BRENDA) 180 mg, Oral, Daily fluocinolone (Synalar) 0.01 % external solution fluocinolone [...] lisinopril 5 mg, Oral, Daily potassium chloride CR (Klor-Con M10) 10 MEQ ER tablet 10 mEq, Oral, Daily, Do not crush or chew. potassium chloride ER (Micro-K) 10 MEQ ER capsule 10 mEq, Oral, 2 times daily RT prochlorperazine (COMPAZINE) 10 mg, Oral, Every 6 hours PRN prochlorperazine (COMPAZINE) 10 mg, Oral, Every 6 [...] Influenza, trivalent, adjuvanted 05/26/2017 Moderna COVID-19 Vaccine (Purchasing Coordinator) 12+ 05/05/2021 Pfizer-BioNTech COVID-19 Vaccine (Purple Cap) 12+ 09/09/2020, 10/07/2020 Pneumococcal Conjugate PCV 13 08/12/2014 Pneumococcal Polysaccharide PPV23 09/08/2015 Selected lab results: Lab Results Component Value Date WBC 6.34 04/11/2022 HGB 12.1 04/11/2022 HCT 38.0 04/11/2022 PLT 244 04/11/2022 CREATININE 0.75 04/11/2022 EGFR 82.6 04/11/2022 AST 14 04/11/2022 ALT 14 04/11/2022 BILITOT 0.3 04/11/2022 Is this an infusion therapy? No Patient is treatment: Experienced: Previous therapies include surgery, radiation, tamoxifen, carbo/taxol, Lynparza Reasons for previous treatment failure - progression, change in therapy. Is patient of child bearing potential? No Does patient have an active infection? None Drug Review Patient drug therapy to be initiated: cyclophosphamide Planned date of initiation: 04/18/22 Is the patient taking concomitant therapy for this disease? Yes: bevacizumab Drug assessment : is this the appropriate drug/dose/route/frequency/duration? Yes Drug utilization review Drug-disease precautions: No clinically significant issues identified Drug-drug interactions: No clinically significant issues identified Drug-patient precautions: No clinically significant issues identified Education and Counseling Medication specific education provided: Topics reviewed with patient or caregiver include: dosage, administration, handling precautions, recommended storage requirements, food/drug interactions, common and clinically significant adverse effects, and missed dose instructions. Written materials were also sent with the first fill and include a hazardous drug handout that details handling precautions and storage requirements; other writtenmaterials that may be sent with the first fill, or subsequent fills, include a drug information sheet and/or a calendar to aid in adherence, if requested. Patient and/or caregiver encouraged to contact [facility] with any questions at [phone], opt 4. Monitoring Questions Patient reported outcomes: Do you feel comfortable administering your medication and following the treatment plan as prescribed? Yes If therapy is injectable, does patient require further injection training? N/A How would you rate your pain on average? (0 = no pain, 10 = worst pain imaginable) N/A On a scale from 1 to 10, with 10 being very well and 1 being very poor, how are you feeling overall? 5 Care Plan Questions Goal(s) of therapy: Improving or maintaining quality of life, Maintain optimal therapy adherence , Minimize and manage side effects , Minimize treatment-related toxicity, Prevent and/or slow progression of disease, Maintain optimal therapy adherence , and Minimize and manage side effects Patient specific goal(s) of therapy: take medication as prescribed and get some energy back Does patient have any barriers to care? Educational , Risks associated with medication handling and storage in the home , and Risks associated with medication handling and storage during transport Mitigation strategy for identified barriers: Educational New to therapy - Medication education provided, topics reviewed include: dosage, administration, handling precautions, recommended storage requirements, food/drug interactions, common and clinically significant adverse effects, and missed dose instructions. Risks associated with handling/storage in the home: New to therapy -Provided hazardous handout with initial shipment Risk associated with handling/storage during transport: New to therapy - Storage/handling instructions provided to patient at initial education and what toexpect with first shipment Summary/Plan [facility] will conduct a clinical follow-up 1-2 weeks after start of therapy, one month after initiation, and at least every 3 months thereafter. The patient???s plan of care will be reviewed at least every 30 days, or at the time of medication refill, to aid with patient adherence. Any medication errors or non- adherence identified by pharmacy staff will be communicated to clinical staff, immediately upon receipt of report. The [facility] Specialty Medication Initial Care Plan was developed from communication with the patient and/or caregiver and communicated to the clinical care team through the electronic health record. Prior authorization for cyclophosphamide has been approved and education provided. The Initial Shipment has been set up and anticipated therapy start date is: 04/18/22 from [facility] . Please see pharmacy encounter note for details. Zeenat Caballero, PharmD 04/15/2022 10:09 AM documented in this encounter Plan of Treatment Upcoming Encounters Date Type Department Care Team (Late st Contact Info) Description 08/05/2024 8:00 AM EST Office Visit [facility] 800 [facility] [address] [place] [address] Penelope Carmona MD [address] [facility] Joelle [facility] [address] [place] [address] 08/05/2024 9:30 AM EST Appointment [facility] 1 [address] [place] [address] 02/26/2025 9:30 AM EDT Appointment [facility] [address] [facility] 800 [place] [address] 02/26/2025 10:30 AM EDT Office Visit [facility] Center [address] [facility], 2nd [place] [address] Berenice Resendez, NURSE PRIVATE DUTY [address] [facility] [address]elle [facility] [address] [place] [address] documented as of this encounter Visit Diagnoses Not on filedocumented in this encounter Additional Health Concerns Assessment Noted Time A fall risk assessment has been complete d for the patient 04/11/2022 2:54 PM EDT documented as of this encounter Care Teams Electric Lineman Relationship Specialty Start Date End Date Flaquita Dorsey DO [address] [place] [address] PCP - General 12/14/21 Aliyah Valencia MD [address] [place] [address] Referring Physician 03/10/21 documented as of this encounter
--- OUTSIDE RECORDS SUMMARY | 2024-07-10 12:01 | XMS_ITS | Encounter Summary ---
Author Organization [facility] Address [address] [place], [place] [id number] Care Team Providers Care Adventure Challenge Instructor Name Role Phone Aliyah Valencia MD Unavailable [phone] Flaquita Dorsey DO Primary Care Provider [phone] Reason for Visit * Reason Comments Chemotherapy * Episode Based Medications (Routine) - Closed Specialty Diagnoses / Procedures Referred By Contac t Referred To Contact Diagnoses Carcinoma of fallopian tube, unspecified laterality (CMS/HCC) Procedures Bevacizumab Every 21 Days Penny Carmona MD [address] [facility] [address] Al[address] [address] Phone: tel: fax: [facility] Infusion Clinic [address] [place] [address] Phone: tel: Referral ID Status Reason Start Date Expiration Date Visits Re quested Visits Authorized [id number] Closed 04/11/2022 10/11/2023 1 14 Encounter Details Date Type Department Care Team (Late st Contact Info) Description 04/25/2022 11:00 AM EDT Office Visit [facility] Gynecology [address] [address] [place] [address] Penny Carmona MD [address] [facility] Tam[address] Vick [address] [address] Carcinoma of fallopian tube, unspecified laterality (CMS/HCC) (Primary Dx); Encounter for antineoplastic chemotherapy; Neuropathy; Obesity (BMI 30-39.9); Proteinuria, unspecified type Social History Tobacco Use Types [...] Sign Reading Time Taken Comments Blood Pressure 121/77 04/25/2022 11:10 AM EDT Pulse 94 04/25/2022 11:10 AM EDT Temperature 36.9 ??C (98.5 ??F) 04/25/2022 11:10 AM E DT Respiratory Rate - - Oxygen Saturation - - Inhaled Oxygen Concentration - - Weight 83.2 kg (183 lb 6.8 oz) 04/25/2022 11:10 AM EDT Height 161.3 cm (5' 3.5 ) 04/25/2022 11:10 AM ED T Body Mass Index 31.98 04/25/2022 11:10 AM EDT documented in this encounter Miscellaneous Notes * Progress Notes - Penny Carmona MD - 04/25/2022 11:00 AM EDT Primary Care Provider: Flaquita Dorsey DO History of Present Illness: Chief complaint: 76 yo female here for cycle 1 Dana/oral cytoxan. Oncologic history is as follows: [...] were negative for metastatic disease. ER and LA were strongly positive and HER-2 was negative. [...] ER positive in 90% of the cells, LA positive in 95% of cells andHER-2 negative by IHC at 0. On 10/04/2016 she underwent a left needle localized lumpectomy. Mylo lymph node biopsy was not performed as [...] vagina). Initiated neoadjuvant chemo with carbo/Taxol per SURGERY CENTER ADMINISTRATOR followed by BSO/Omentectomy and adjuvant Carbotaxol. Recurrence in March 2019. Treated with carbo initially followed by Olaparib. 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 She is currently off of therapy. She follows with Dr. Hutchins in [facility]. 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 Recurrence - First recurrence, little river sensitive - CT 04/10/19 with 3 cmlesion at cuff - Ca125 12 (from 8) - MTB discussion: recommend trial if progression on little river regimen or consider Parp for RAD [...] ccy for choledocolithiasis 2019 (SGB) - Ca125: 46-3-1-7-7-9-8 - Started Parp inhibitor 09/2019 - Dose [...] concerning findings - Most recent Ca125 7.49 (49992) 06/30/2021 Recurrence - Third recurrence, little river sensitive - CT 06/30/2021 shows vaginal [...] disease seen 04/11/2022 Recurrence - Fourth recurrence, little river resistant - CT 04/11/2022 with increase in size of mass at apex of vagina to 5 cm from 3.6 cm 04/18/2022 - Chemotherapy - Dana, oral Cytoxan started 04/25/2022 (held 04/18 for 24 hr urine) Interval updates to history: Oncologic treatment history as described above reviewed today as well as PMH/PSH/Meds/All/SH/FH, with updates made as appropriate. Patient is here today for initiation ofBev and oral Cytoxan as well as to review 24 hr urine protein results. She had elevated protein on her urine screen and a 24 hr urine protein was collected. She is noted to have some vaginal bleedingand consequently blood in her urine - this likely falsely elevates the protein. Started Cytoxan last week. No major side effects or changes noted. Does report some significant fatigue that made her think she might be anemic - this predates starting the Cytoxan. No other changes in her history or acute complaints. PMH: h/o breast cancer x2, ?cervical cancer, [...] years ago, no drugs, retired, lives in [place]. FamHx: Father-prostate, MGma-colon. ROS: 14 pt ROS performed with pertinent positives and negatives as noted in HPI. ROS otherwise negative Objective Physical Exam: Vital Signs for this encounter: BSA: 1.93 meters squared Visit Vitals BP 121/77 Pulse 94 Temp 36.9 ??C (98.5 ??F) Ht 1.613 m (5' 3.5 ) Wt 83.2 kg (183 lb 6.8 oz) LMP 11/17/1981 (Approximate) BMI 31.98 kg/m?? OB Status Hysterectomy Smoking Status Former [...] Status: Asymptomatic PS= 0 Results: CBC WBC 5.58 Hgb 12.4 PLT 250 HCT 39.3 Lab Results Component Value Date NEUTROABS 3.66 04/25/2022 BASIC METABOLIC PANEL Na 139 Cl 101 BUN 19 Gluc 100 K 3.9 Co2 28 Creat 0.77 LIVER FUNCTION TESTING Tot Prot 6.8 AST 17 Tot bili 0.3 ALT 11 Alkphos 70 Ca 10.0 Mg 1.3 Phos No results found for requested labs within last 8760 hours. === 04/11/22 === CT CHEST W IV CONTRAST - Narrative - Exam/Procedure: CT CHEST W IV CONTRAST ordered by PENNY DODSON, [id number] CLINICAL INDICATION: Ovarian cancer, assess treatment response [...] followed by radiation for additional recurrence - [place] sensitive recurrence diagnosed 06/2021. - Completed 6 [...] send Caris testing - Extensive discussion on options. Now little river resistant (5 month interval). Will not use Carbo again. Offered traditional chemo (Gemzar, DD Taxol, Doxil) vs Dana/oral Cytoxan. Elects for Dana/oral cytoxan - First cycle of Dana today, continue oral cytoxan. Follow Ca125 qcycle and consider imaging q 3-4 cycles. 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 Problem [...] plan 7: - Body mass index is 31.98 kg/m??. - Affects all aspects of care [...] of plan of care, lab orders, phlebotomy MD ADRIANA Arana [facility] GYNECOLOGY [address] [facility] [address] [place] AL[place]RE [facility] [address] Dept: [phone] Dept Loc: [phone] * Progress Notes - Jody Osuna, PharmD - 04/25/2022 11:00 AM EDT Pharmacy Hematology/Oncology Treatment Plan [...] from 05/28/2001: pT1c, pN0, cM0, G2, ER+, LA+, HER2: Unknown - Signed by Cara Greene MD on 06/19/2021 - Pathologic stage from 10/05/2016: Stage Unknown (rpT1c, pNX, cM0, G2, ER+, LA+, HER2-) - Signed by Cara Greene MD [...] Wt: Wt Readings from Last 1 Encounters: 04/25/22 83.3 kg (183 lb 10.3 oz) Dosing Ht: 160 cm DosingBSA: 1.88 m2 Recent Labs: Lab Results Component Value Date WBC 5.58 04/25/2022 HGB 12.4 04/25/2022 HCT 39.3 04/25/2022 MCV 99 (H) 04/25/2022 PLT 250 04/25/2022 Lab Results Component Value Date GLUCOSE 100 (H) 04/25/2022 CALCIUM 10.0 04/25/2022 NA 139 04/25/2022 K 3.9 04/25/2022 CO2 28 04/25/2022 CL 101 04/25/2022 BUN 19 04/25/2022 CREATININE 0.77 04/25/2022 Lab Results Component Value Date ALT 11 04/25/2022 AST 17 04/25/2022 ALKPHOS 70 04/25/2022 BILITOT 0.3 04/25/2022 Lab Results Component Value Date NEUTROABS 3.66 04/25/2022 Lab Results Component Value Date MG 1.3 (L) 11/17/2021 Vitals: Vitals: 04/25/22 1110 BP: 121/77 Pulse: 94 Temp: 36.9 ??C (98.5 ??F) Other Relevant Monitoring: Treatment Plan: Bevacizumab 15 mg/kg (1,300 mg) IV D1 Cyclophosphamide 50 mg PO daily Every 21 days [x] No dose adjustments made Current Treatment Plan History: Bevacizumab/oral Cyclophosphamide #1: 04/25/22 Prior Chemotherapy History: hormone therapy for prior [...] carboplatin #6: 11/17/21 Assessment/Plan: Rx Sent to: [facility] Refills due: June 2022 I reviewed the patient's chart and chemotherapy orders were approved. Patient will return to clinic in 3 weeks. Will follow-up at that time. Pharmacist Attestation: Jody Osuna, Allison Hematology/Oncology Clinical Pharmacist documented in this encounter Plan of Treatment Upcoming Encounters Date Type Department Care Team (Late st Contact Info) Description 08/05/2024 8:00 AM EST Office Visit [facility] Gynecology [address] [facility] [address] [place] [address] Penny Carmona MD [address] [facility] [address] [facility] [address] [place] [address] 08/05/2024 9:30 AM EST Appointment [facility] [address] [place] [id number] 02/26/2025 9:30 AM EDT Appointment [facility] [address] [facility] [address] [place] [address] 02/26/2025 10:30 AM EDT Office Visit [facility] [place] [address] [facility] [place] [address] Berenice Resendez, RAT BREEDER [address] [facility] [address] [facility] [address] [place] [address] documented as of this encounter Procedures Procedure Name Priority Date/Time Associated Diagnosis Comments CBC WITH AUTO DIFFERENTIAL Routine 04/25/2022 11:27 AM EDT Carcinoma of fallopian tube, unspecified laterality (CMS/HCC) CA 125 Routine 04/25/2022 11:27 AM EDT Carcinoma of fallopian tube, unspecified laterality (CMS/HCC) COMPREHENSIVE METABOLIC PANEL, PLASMA Routine 04/25/2022 11:27 AM EDT Carcinoma of fallopian tube, unspecified laterality (CMS/HCC) documented in this encounter Results * (ABNORMAL) CBC and differential (04/25/2022 11:27 AM EDT) WBC Count 5.58 3.70 - 10.30 10*3/uL LAB HEMATOLOGY METHOD 04/25/2022 11:36 AM EDT [facility] RBC Count 3.99 3.90 - 5.20 10*6/uL LAB HEMATOLOGY METHOD 04/25/2022 11:36 AM EDT [facility] HGB 12.4 11.2 - 15.7 g/dL LAB HEMATOLOGY METHOD 04/25/2022 11:36 AM EDT [facility] HCT 39.3 34.0 - 45.0 % LAB HEMATOLOGY METHOD 04/25/2022 11:36 AM EDT [facility] Platelet Count 250 155 - 369 10*3/uL LAB HEMATOLOGY METHOD 04/25/2022 11:36 AM EDT [facility] MCV 99(H) 79 - 98 fL LAB HEMATOLOGY METHOD 04/25/2022 11:36 AM EDT [facility] MCH 31.1 26.0 - 32.0 pg LAB HEMATOLOGY METHOD 04/25/2022 11:36 AM EDT [facility] MCHC 31.6 30.7 - 35.5 g/dL LAB HEMATOLOGY METHOD 04/25/2022 11:36 AM EDT [facility] RDW 14.4 11.5 - 14.5 % LAB HEMATOLOGY METHOD 04/25/2022 11:36 AM EDT [facility] MPV 9.3 8.8 - 12.5 fL LAB HEMATOLOGY METHOD 04/25/2022 11:36 AM EDT [facility] nRBC 0.0 <=0.0 per 100 WBCs LAB HEMATOLOGY METHOD 04/25/2022 11:36 AM EDT [facility] Differential Type Automated LAB HEMATOLOGY METHOD 04/25/2022 11:36 AM EDT [facility] Neutrophils % 65.0 % LAB HEMATOLOGY METHOD 04/25/2022 11:36 AM EDT [facility] Lymphocytes % 25.0 % LAB HEMATOLOGY METHOD 04/25/2022 11:36 AM EDT [facility] Monocytes % 6.0 % LAB HEMATOLOGY METHOD 04/25/2022 11:36 AM EDT [facility] Eosinophils % 3.0 % LAB HEMATOLOGY METHOD 04/25/2022 11:36 AM EDT [facility] Basophils % 1.0 % LAB HEMATOLOGY METHOD 04/25/2022 11:36 AM EDT [facility] Immature Granulocytes % 0.0 % LAB HEMATOLOGY METHOD 04/25/2022 11:36 AM EDT [facility] Neutrophils Absolute 3.66 1.60 - 6.10 10*3/uL LAB HEMATOLOGY METHOD 04/25/2022 11:36 AM EDT [facility] Lymphocytes Absolute 1.38 1.20 - 3.90 10*3/uL LAB HEMATOLOGY METHOD 04/25/2022 11:36 AM EDT [facility] Monocytes Absolute 0.34 0.30 - 0.90 10*3/uL LAB HEMATOLOGY METHOD 04/25/2022 11:36 AM EDT [facility] Eosinophils Absolute 0.14 0.00 - 0.50 10*3/uL LAB HEMATOLOGY METHOD 04/25/2022 11:36 AM EDT [facility] Basophils Absolute 0.04 0.00 - 0.10 10*3/uL LAB HEMATOLOGY METHOD 04/25/2022 11:36 AM EDT [facility] Immature Granulocytes Absolute 0.02 0.00 - 0.06 10*3/uL LAB HEMATOLOGY METHOD 04/25/2022 11:36 AM EDT [facility] Blood Blood sample taken from central line / Unknown (Port) Long-term Catheter / Unknown 04/25/2022 11:27 AM EDT 04/25/2022 11:33 AM EDT Narrative [facility] - 04/25/2022 11:36 AM EDT Therapeutic decision making should be based on absolute values, rather than percentages. us Penny Dodson MD LAB BLOOD ORDERABLES Final Result [facility] [address] [place] [address] * (ABNORMAL) Comprehensive metabolic panel (04/25/2022 11:27 AM EDT) [facility] Glucose, Plasma 100(H) 74 - 99 mg/dL 04/25/2022 12:11 PM EDT [facility] BUN, Plasma 19 8 - 23 mg/dL 04/25/2022 12:11 PM EDT [facility] Creatinine, Plasma 0.77 0.60 - 1.10 mg/dL 04/25/2022 12:11 PM EDT [facility] BUN/Creatinine Ratio 25 04/25/2022 12:11 PM EDT [facility] Sodium, Plasma 139 136 - 145 mmol/L 04/25/2022 12:11 PM EDT [facility] Potassium, Plasma 3.9 3.7 - 4.8 mmol/L 04/25/2022 12:11 PM EDT [facility] Comment:Reference range for Serum potassium is 0.2 to 0.5 mmol/L higher than Plasma range. Chloride, Plasma 101 97 - 107 mmol/L 04/25/2022 12:11 PM EDT [facility] CO2, Plasma 28 22 - 29 mmol/L 04/25/2022 12:11 PM EDT [facility] Anion Gap 10 6 - 16 mmol/L 04/25/2022 12:11 PM EDT [facility] Total Calcium, Plasma 10.0 8.9 - 10.2 mg/dL 04/25/2022 12:11 PM EDT [facility] Total Protein 6.8 6.3 - 7.9 g/dL 04/25/2022 12:11 PM EDT [facility] Albumin, Plasma 4.1 3.5 - 5.2 g/dL 04/25/2022 12:11 PM EDT [facility] AST, Plasma 17 9 - 36 U/L 04/25/2022 12:11 PM EDT [facility] ALT, Plasma 11 8 - 33 U/L 04/25/2022 12:11 PM EDT [facility] Alkaline Phosphatase, Plasma 70 46 - 142 U/L 04/25/2022 12:11 PM EDT [facility] Total Bilirubin, Plasma 0.3 0.2 - 1.1 mg/dL 04/25/2022 12:11 PM EDT [facility] eGFRcr 80.1 mL/min/1.7 3m*2 04/25/2022 12:11 PM EDT [facility] Comment: Reported eGFRcr in mL/min/1.73m2 is based the CKD-EPI 2021 equation that does not use a race coefficient. Effective 02/23/22 our laboratory changed the eGFR calculation to the CKD-EPI 2021 equation from the previously reported eGFR, based on the MDRD equation. ??For comparisons between the two equations, please see laboratory website: ??[email or web address] Blood Blood sample taken from central line / Unknown (Port) Long-term Catheter / Unknown 04/25/2022 11:27 AM EDT 04/25/2022 11:40 AM EDT Penny Dodson MD LAB BLOOD ORDERABLES Final Result Performing Organization Address [facility] de Phone Number [facility] [address] [place] [address] * CA 125 (04/25/2022 11:27 AM EDT) CA 125 12.20 <=38.00 U/mL 04/25/2022 12:46 PM EDT [facility] Blood Blood sample taken from central line / Unknown (Port) Long-term Catheter / Unknown 04/25/2022 11:27 AM EDT 04/25/2022 11:40 AM EDT Narrative [facility] - 04/25/2022 12:46 PM EDT Performed by Stephie electrochemiluminescent immunoassay. Results obtained with different test methods or kits cannot be used interchangeably. Penny Dodson MD LAB BLOOD ORDERABLES Final Result Performing Organization Address [facility] de Phone Number [facility] [address] [place] [address] documented in this encounter Visit Diagnoses Diagnosis Carcinoma of fallopian tube, unspecified laterality (CMS/HCC)- Primary Encounter for antineoplastic chemotherapy Neuropathy Mononeuritis of unspecified site Obesity (BMI 30-39.9) Proteinuria, unspecified type documented in this encounter Additional Health Concerns Assessment Noted Time A fall risk assessment has been complete d for the patient 04/25/2022 11:58 AM EDT documented as of this encounter Care Teams Adventure Challenge Instructor Relationship Specialty Start Date End Date Flaquita Dorsey DO [address] [place] [address] PCP - General 12/14/21 Aliyah Valencia MD [address] [place] [address] Referring Physician 03/10/21 documented as of this encounter
--- OUTSIDE RECORDS SUMMARY | 2024-07-10 12:01 | XMS_ITS | Encounter Summary ---
Author Organization Healthcare Address [address] [place], [place] [address] Care Team Providers Care Stained Glass Joiner Name Role Phone Aliyah Valencia MD Unavailable [phone] Flaquita Dorsey DO Primary Care Provider [phone] Reason for Visit * Reason Comments Breast Cancer Follow-up Encounter Details Date Type Department Care Team (Late st Contact Info) Description 12/14/2021 2:00 PM EDT Office Visit [facility] [address] [facility]nd [place] [address] Carlene Bueno MD [address] [place] [address] Malignant neoplasm of overlapping sites of left breast in female, estrogen receptor positive (CMS/HCC) (Primary Dx) Social History Tobacco Use [...] Sign Reading Time Taken Comments Blood Pressure 108/76 12/14/2021 1:58 PM EDT Pulse 98 12/14/2021 1:58 PM EDT Temperature 36.6 ??C (97.9 ??F) 12/14/2021 1:58 PM ED T Respiratory Rate 20 12/14/2021 1:58 PM EDT Oxygen Saturation - - Inhaled Oxygen Concentration - - Weight - - Height - - Body Mass Index - - documented in this encounter Miscellaneous Notes * Progress Notes - Carlene Bueno MD - 12/14/2021 2:00 PM EDT Images from the original note were not included. Subjective DOS: 12/14/2021 CC: Patient is seen in follow up for left breast cancer surveillance . 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 She is completing her last Rx of AI. TREATMENT HISTORY: Daniela John is a 75 y.o. female [...] she underwent a left needle localized lumpectomy. [place] lymph node biopsy was not performed as [...] vagina). Initiated neoadjuvant chemo with carbo/Taxol per HUMAN RESOURCES ASSISTANT MANAGER followed by BSO/Omentectomy and adjuvant Carbotaxol. Recurrence in March 2019. Treated with carbo initially followed by Olaparib. 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 She is currently off of therapy. She follows with Dr. Hutchins in [facility]. PMHx: has a past medical history of Abnormal uterine and vaginal bleeding, unspecified, Carcinoma of fallopian tube (CMS/HCC) (09/26/2019), Cervical cancer (CMS/HCC) (03/15/2018), Conversions - Other, Essential (primary) hypertension, Hypothyroidism, unspecified, Malignant neoplasm of unspecified site of left female breast (CMS/HCC), Other specified health status, Personal history of irradiation,Personal history of nicotine dependence, Personal history of other specified conditions, Pure hypercholesterolemia, unspecified, Syncope and collapse, and Thyrotoxicosis with diffuse goiter without thyrotoxic crisis or storm. PSHx: has a past surgical history that includes Cholecystectomy (N/A); Eye surgery (N/A); Hemorrhoid surgery (N/A); Breast lumpectomy (N/A); Partial hysterectomy (N/A); Rotator cuff repair (N/A); Other surgical history (N/A); and Hysterectomy (N/A). FHx: family history includes Breast cancer in her cousin and cousin; Cardiac disorder in her brother, father, and mother; Colon cancer in an other family member; Diabetes in her brother and sister; Hypertension in her brother, sister, and another family member; Prostate cancer in her father. SHx: Social History Tobacco Use ??? Smoking status: Former Smoker ??? Smokeless tobacco: Former User Substance Use Topics ??? Alcohol use: Not Currently ??? Drug use: Never Employer: No address on file. Travel History Relevant International Travel History: Travel Screening Question Response In the last 10 days, have you been in contact with someone who was confirmed or suspected to have Coronavirus/COVID-19? No / Unsure Have you had a COVID-19 viral test in the last 10 days? No Do you have any of the following new or worsening symptoms? None of these Have you traveled internationally or domestically in the last month? No Travel History Travel since 11/14/21 No documented travel since 11/14/21 Relevant Domestic Travel History: N/A Immunizations Reviewed VACCINE/DOSE DATE DATE DATE DATE DATE DATE Flu 09/08/2015 05/26/2017 04/03/2018 05/30/2019 04/29/2020 06/04/2021 Tetanus Pneumovax 08/12/2014 09/08/2015 Shingles Allergies Calcium, Morphine, and Sulfacetamide Medications Current Outpatient Medications Medication Sig Dispense Refill ??? anastrozole (Arimidex) 1 MG chemo tablet Take 1 mg by mouth 1 (one) time each day. Swallow whole with a drink of water. ??? aspirin 81 MG chewable tablet Chew 81 mg 1 (one) time each day. ??? biotin 1000 MCG tablet Take 1,000 mcg by mouth 1 (one) time each day. ??? denosumab (Prolia) 60 MG/ML injection Prolia ??? dexamethasone (Decadron) 4 MG tablet Take 2 tablets (8 mg total) by mouth 1 (one) time each day. On days 2 and 3. 24 tablet 0 ??? ergocalciferol (Vitamin D-2) 1.25 MG (92264 UT) capsule Take 50,000 Units by mouth 1 (one) timeper week. ??? famciclovir (Famvir) 125 MG tablet Take 125 mg by mouth 1 (one) time each day. ??? fexofenadine (Mehreen) 180 MG tablet Take 180 mg by mouth 1 (one) time each day. ??? fluocinolone (Synalar) 0.01 % external solution fluocinolone 0.01 % topical solution APPLY TO THE AFFECTED AREA(S) ON SCALP BY TOPICAL ROUTE 2 TIMES PER DAY X 2 WEEKS PRN FLARES ??? furosemide (Lasix) 20 MG tablet Take 20 mg by mouth 1 (one) time each day. ??? gabapentin (Neurontin) 300 MG capsule Take 1 capsule (300 mg total) by mouth every night. 30 capsule 3 ??? hydrOXYzine HCl (Atarax) 25 MG tablet ??? ketoconazole (NIZOral) 2 % shampoo ??? ketoconazole (NIZOral) 2 % shampoo ketoconazole 2 % shampoo APPLY TO THE AFFECTED AREA(S), LATHER, LEAVE IN PLACE FOR 5 MINUTES, AND THEN RINSE OFF WITH WATER BY TOPICAL ROUTE QOD ??? levothyroxine (Synthroid, Levoxyl) 75 MCG tablet Take 75 mcg by mouth 1 (one) time each day before breakfast. ??? lisinopril 5 MG tablet Take 5 mg by mouth 1 (one) time each day. ??? potassium chloride CR (Klor-Con M10) 10 MEQ ER tablet Take 10 mEq by mouth 1 (one) time each day. Do not crush or chew. ??? potassium chloride ER (Micro-K) 10 MEQ ER capsule Take 10 mEq by mouth 2 (two) times a day. ??? prochlorperazine (Compazine) 10 MG tablet Take 1 tablet (10 mg total) by mouth every 6 (six) hours if needed for nausea or vomiting. 30 tablet 5 ??? senna-docusate sodium (Senokot-S) 8.6-50 MG tablet 2 tab(s) orally 2 times a day ??? simvastatin (Zocor) 40 MG tablet Take 40 mg by mouth every night. ??? triamcinolone (Kenalog) 0.025 % cream Apply 1 application topically 2 (two) times a day. (Patient not taking: Reported on 11/17/2021) No current facility-administered medications for this visit. Review of Systems Constitutional: Negative. Negative for fatigue and unexpected weight change. HENT: Negative. Eyes: Negative. Respiratory: Negative. Negative for cough and shortness of breath. Cardiovascular: Negative. Negative for chest pain. Gastrointestinal: Negative. Endocrine: Negative. Genitourinary: Negative. Musculoskeletal: Negative. Negative for arthralgias and back pain. Skin: Negative. No breast changes, pain, or masses. No nipples changes. No nipple discharge. Neurological: Negative. Hematological: Negative. Psychiatric/Behavioral: Negative. Objective PE: Visit Vitals BP 108/76 Pulse 98 Temp 36.6 ??C (97.9 ??F) Resp 20 LMP 11/17/1981 (Approximate) OB Status Hysterectomy Smoking Status Former Smoker Physical Exam Vitals reviewed. Constitutional: Appearance: Normal appearance. HENT: Head: Normocephalic and atraumatic. Right Ear: External ear normal. Left Ear: External ear normal. Nose: Nose normal. Mouth/Throat: Mouth: Mucous membranes are moist. Pharynx: Oropharynx is clear. Eyes: Extraocular Movements: Extraocular movements intact. Conjunctiva/sclera: Conjunctivae normal. Pupils: Pupils are equal, round, and reactive to light. Cardiovascular: Rate and Rhythm: Normal rate. Pulmonary: Effort: Pulmonary effort is normal. Chest: Comments: Bilateral breasts are examined in the upright and supine positions. Grade 2/3 ptosis bilaterally. No skin or contour changes. No masses palpated. Nipples everted bilaterally. No nipple discharge. Abdominal: General: Abdomen is flat. Musculoskeletal: General: Normal range of motion. Cervical back: Normal range of motion and neck supple. Lymphadenopathy: Comments: Bilateral cervical, supraclavicular, and axillary LN basins are without lymphadenopathy Skin: General: Skin is warm and dry. Neurological: General: No focal deficit present. Mental Status: She is alert and oriented to person, place, and time. Psychiatric: Mood and Affect: Mood normal. Behavior: Behavior normal. Thought Content: Thought content normal. Judgment: Judgment normal. Radiology (reviewed by ): 1) 12/14/21: Mammography Breast Diagnostic Tomosynthesis Bilateral PACS Images ??Show images for Mammography Breast Diagnostic Tomosynthesis Bilateral Study Result Narrative & Impression Exam/Procedure: MAMMOGRAPHY BREAST DIAGNOSTIC TOMOSYNTHESIS BILATERAL ordered by JAX ROMERO, [id number] ?? CLINICAL INDICATION: 76-year-old presenting for BI-RADS 3 follow-up for finding in the left breast. Placed in surveillance on 10/10/2017. History of left breast lumpectomy in September 2016, malignant. ?? TECHNIQUE: Bilateral diagnostic mammogram was performed. ?? Computer assisted detection was used in the interpretation of this study. Tomosynthesis was used inthe interpretation of this study. ?? Multiplanar, adan scale directed ultrasound of the left breast with limited Doppler vascular ultrasound was performed. ?? COMPARISON: 12/08/2020, 06/08/2020, 12/02/2019, 04/25/2019 ?? FINDINGS: Breast Density: Scattered fibroglandular density ?? Mammogram Findings: Finding 1: Focal asymmetry in the left breast upper inner quadrant approximately 10:00 position, 8 cm from the nipple measuring 16 mm, similar to prior. Ultrasound was done to further evaluate. ?? Finding 2: Redemonstrated is the postlumpectomy scar in the left breast, similar to prior. ?? No suspicious masses, calcifications or areas of architectural distortion in either breast. ?? Left Breast Ultrasound Findings: Finding 1: Focused ultrasound of the left breast at 10:00 position, 8 cm from the nipple redemonstrates the irregular avascular area and tissue marker with indistinct margins measuring 10 mm, previously 11 mm. Internal echotexture is hypoechoic. This is most compatible with previously biopsied fat necrosis and has remained stable over 2 years. ?? IMPRESSION: Right Breast BI-RADS Code: BI-RADS 1, Negative. ?? Left Breast BI-RADS Code: BI-RADS 2, Benign finding. ?? RECOMMENDATIONS: Right Breast Recommendations: Routine Screening Mammogram in 1 Year ?? Left Breast Recommendations: Routine Screening Mammogram in 1 Year ?? CRITICAL RESULT: No. ?? COMMUNICATION: The results and recommendations were discussed with the patient and a printed lay language version of the imaging report was given to the patient at the time of the visit. The mammogram was read withthe assistance of CAD and tomosynthesis. ?? Dictated by Jarad Carey on 12/14/2021 1:32 PM Signed by Jarad Carey on 12/14/2021 1:41 PM Assessment/Plan Patient is a 76 y.o. 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 Ms John can complete this Rx of AI and be done as she will have completed 5y of therapy. We willhave her follow up in 1y with bilateral mammograms with Berenice Resendez APRN, in our survivorship clinic. >20minutes was spent on this encounter; including preparing to see the patient, which involved review/interpretation of diagnostics and reports; obtaining and/or reviewing separately obtained history; performing appropriate physical exam; ordering/scheduling medications, tests or procedures; communicating findings and counseling/educating the patient, family and/or caregiver; documentation in EMR; and care coordination. documented in this encounter Plan of Treatment Upcoming Encounters Date Type Department Care Team (Late st Contact Info) Description 08/05/2024 8:00 AM EST Office Visit [facility] [address] [facility] [address] [place] [address] Penelope Carmona MD [address] [facility] [address] [place] [address] 08/05/2024 9:30 AM EST Appointment [facility] [address] [place] [address] 02/26/2025 9:30 AM EDT Appointment [facility] [address] [facility] [address] [place] [address] 02/26/2025 10:30 AM EDT Office Visit [facility] [address] [facility]nd [place] [address] Berenice Resendez, PLUCK TRIMMER [address] [facility] [address] [facility] [address] [place] [address] documented as of this encounter Visit Diagnoses Diagnosis Malignant neoplasm of overlapping sites of left breast in female, estrogen receptor positive (CMS/HCC)- Primary documented in this encounter Additional Health Concerns Assessment Noted Time A fall risk assessment has been complete d for the patient 11/17/2021 1:43 PM EDT documented as of this encounter Care Teams Stained Glass Joiner Relationship Specialty Start Date End Date Flaquita Dorsey DO [address] [place], [place] [id number] PCP - General 12/14/21 Aliyah Valencia MD [address] [place] [place] [address] Referring Physician 03/10/21 documented as of this encounter
--- OUTSIDE RECORDS SUMMARY | 2024-07-10 12:02 | XMS_ITS | Encounter Summary ---
Author Organization Healthcare Address [address] [place], [place] [address] Care Team Providers Care Die Operator Name Role Phone Leny Valdes DO Primary Care Provider [phone] Aliyah Valencia MD Unavailable [phone] Flaquita Dorsey DO Primary Care Provider [phone] Encounter Details Date Type Department Care Team (Late Contact Info) Description 12/10/2021 Telephone [facility] [address] [place] [address] Penelope Carmona MD [address] [facility] [facility] [address] [place] [address] Social History Tobacco Use Types [...] Gynecology [address] [place] [address] Penelope Carmona MD [address] [facility] [address] [place] [address] 08/05/2024 9:30 AM EST Appointment [facility] [address] [place] [address] 02/26/2025 9:30 AM EDT Appointment [facility] [place] [address] [address] [facility] [address] [place] [address] 02/26/2025 10:30 AM EDT Office Visit [facility] [address] [facility] [place] [address] Berenice Resendez, CREAM HAULER [address] [facility] [address] [place] [address] documented as of this encounter Visit Diagnoses Not on filedocumented in this encounter Additional Health Concerns Assessment Noted Time A fall risk assessment has been complete d for the patient 11/17/2021 1:43 PM EDT documented as of this encounter Care Teams Die Operator Relationship Specialty Start Date End Date Leny Valdes DO [address] [facility] [place] [address] PCP - General 12/11/20 12/13/21 Flaquita Dorsey, DO [address] [place], [place] [id number] PCP - General 12/14/21 Aliyah Valencia MD [address] [place], [place] [id number] Referring Physician 03/10/21 documented as of this encounter
--- OUTSIDE RECORDS SUMMARY | 2024-07-10 12:02 | XMS_ITS | Encounter Summary ---
Author Organization [facility] Address [address] [place], [place] [id number] Care Team Providers Care Guide Domestic Tour Name Role Phone Leny Valdes DO Primary Care Provider [phone] Aliyah Valencia MD Unavailable [phone] Reason for Referral * Imaging (Routine) - Closed Specialty Diagnoses / Procedures Referred By Donal willis Referred To Contact Radiology Diagnoses Carcinoma of fallopian tube, unspecified laterality (CMS/HCC) Procedures CT Abdomen Pelvis w IV Contrast [facility] Gynecology [address] [address] [place] [address] Phone: tel: fax: Referral ID Status Reason Start Date Expiration Date Visits Re quested Visits Authorized [id number] Closed 09/15/2021 03/17/2023 1 1 Reason for Visit * Reason Comments Chemotherapy * Episode Based Medications (Routine) - Closed Specialty Diagnoses / Procedures Referred By Contac Referred To Contact Diagnoses Carcinoma of fallopian tube, unspecified laterality (CMS/HCC) Penny Carmona MD [address] [facility] [facility] [address] [place] [address] Phone: tel: fax: [facility] [address] [place] [address] Phone: tel: Referral ID Status Reason Start Date Expiration Date Visits Re quested Visits Authorized [id number] Closed 06/30/2021 06/30/2022 1 21 Encounter Details Date Type Department Care Team (Late st Contact Info) Description 09/15/2021 11:00 AM EST Office Visit [facility] [address] [facility] [address] [place] [address] Shy Valente, SHIPWRIGHT APPRENTICE, DNP [address] [place] [phone] Carcinoma of fallopian tube, unspecified laterality (CMS/HCC) [...] Exposure Response Date Recorded In the last month, have you been in contact with someone who was confirmed or suspected to have Coronavirus / COVID-19? No / Unsure 09/15/2021 10:31 AM EST documented as of this encounter Last Filed Vital Signs Vital Sign Reading Time Taken Comments Blood Pressure 128/75 09/15/2021 10:41 AM EST Pulse 81 09/15/2021 10:41 AM EST Temperature 37 ??C (98.6 ??F) 09/15/2021 10:41 AM EST Respiratory Rate - - Oxygen Saturation - - Inhaled Oxygen Concentration - - Weight 84.4 kg (186 lb 1.1 oz) 09/15/2021 10:41 AM EST Height 161.3 cm (5' 3.5 ) 09/15/2021 10:41 AM ES T Body Mass Index 32.44 09/15/2021 10:41 AM EST documented in this encounter Miscellaneous Notes * Progress Notes - Shy Valente, DOPE HOUSE OPERATOR HELPER - 09/15/2021 11:00 AM EST Primary Care Provider: Leny Valdes DO History of Present Illness: Chief complaint: 75 yo female here for clearance for and counseling for 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 Oncologic history [...] she underwent a left needle localized lumpectomy. [place] lymph node biopsy was not performed as [...] vagina). Initiated neoadjuvant chemo with carbo/Taxol per [employer] [facility] followed by BSO/Omentectomy and adjuvant Carbotaxol. Recurrence in March 2019. Treated with carbo initially followed by Olaparib. 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 She is currently off of therapy. She follows with Dr. Hutchins in [place]. 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 Also with interval enlargement of a adrenal nodule on right - Planning Carbo alone to start 08/04/2021 Interval updates to history: Oncologic treatment history as described above reviewed today as well as PMH/PSH/Meds/All/SH/FH, with updates made as appropriate. Patient is here today for Carbo # 3 .Doing well. Reports the vaginal bleeding/watery discharge she was having previously has stopped. Reports constipation for 4-5 days after last treatment which improved with stool softener. She says her burning in the hands has improved since starting the gabapentin, but noticed some burning in her feetthat only occurred one time and lasted for one hour then resided. Denies shortness of breath, pain,or N/V. Voiding normally. Eating well. Denied [place] PMH:??h/o breast cancer x2, ?cervical cancer, h/o [...] years ago, no drugs, retired, lives in [place]. ?? FamHx:??Father-prostate, MGma-colon. ROS: 14 pt ROS performed with pertinent positives and negatives as noted in HPI. ROS otherwise negative Objective Physical Exam: Vital Signs for this encounter: BSA: 1.94 meters squared Visit Vitals BP 128/75 Pulse 81 Temp 37 ??C (98.6 ??F) (Oral) Ht 1.613 m (5' 3.5 ) Wt 84.4 kg (186 lb 1.1 oz) LMP (LMP Unknown) BMI 32.44 kg/m?? OB Status Hysterectomy Smoking Status Former Smoker BSA 1.94 m?? Physical Exam Vitals and nursing note reviewed. Constitutional: Appearance: She is well-developed. HENT: Head: Normocephalic and atraumatic. Mouth/Throat: Mouth: Mucous membranes are moist. Eyes: Extraocular Movements: Extraocular movements intact. Conjunctiva/sclera: Conjunctivae normal. Cardiovascular: Rate and Rhythm: Normal rate. Heart sounds: Normal heart sounds. Pulmonary: Effort: [...] Status: Asymptomatic PS= 0 Results: CBC WBC 3.87 Hgb 11.8 PLT 182 HCT 35.9 Lab Results Component Value Date NEUTROABS 2.47 09/15/2021 BASIC METABOLIC PANEL Na 139 Cl 105 BUN 18 Gluc 86 K 4.3 Co2 24 Creat 0.69 LIVER FUNCTION TESTING Tot Prot 6.7 AST 14 Tot bili 0.3 ALT 13 Alkphos 46 Ca 9.7 Mg 1.7 Phos No results found for requested labs within last 8760 hours. === 06/30/21 === CT CHEST W IV CONTRAST - Narrative - Exam/Procedure: CT ABDOMEN PELVIS W IV CONTRAST, CT CHEST W IV CONTRAST ordered by PENNY H[place], [id number] CLINICAL INDICATION: Ovarian cancer, surveillance TECHNIQUE: Multiple axial CT images were obtained from thoracic inlet through pubic symphysis following administration of IV contrast, Omnipaque 300, 100 mL. Reformatted images of the abdomen and pelvis in the coronal and sagittal planes were generated from the axial data set to facilitate diagnostic accuracy. Total DLP (Dose-Length Product): 756.76 mGy.cm. Please note: The reported value represents the total of one or more individual components during the CT acquisition on this date and at this time, and as such, the same value may appear in more than one CT report depending on the interpreting/reporting physicians. COMPARISON: CT of the chest abdomen and pelvis performed 11/27/2020 FINDINGS: Chest: Lymph Nodes and Mediastinum: No lymphadenopathy by CT size criteria. No mediastinal mass lesions. No suspicious thyroid findings. Right chest wall Port-A-Cath is stable. Cardiovascular: The heart is normal in caliber. Thoracic great vessels are patent. Aortic valve leaflet calcifications. Lungs and Pleura: No suspicious lung nodules to suggest metastatic disease. No pleural effusions orsuspicious thickening. Mild scattered groundglass opacities are unchanged from comparison exam. Similar degree of mild bronchiectasis. Stable subpleural reticulation within the left upper lobe. Musculoskeletal and Body Wall: No clearly aggressive bone lesions. Abdomen/Pelvis: Solid Abdominal Organs: Unremarkable liver. Status post cholecystectomy. No suspicious renal mass lesions. No hydronephrosis. Unremarkable spleen. Indeterminate right adrenal nodule has increased in size measuring 22 mm, previously 18 mm) series 3, image 67) disease. 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 The spleen and pancreas are unremarkable. Symmetric renal enhancement with small bilateral cysts and mild parenchymal atrophy. GI Tract/Mesentery/Peritoneum: Nonobstructed large and small bowel. There are several herniated loops of small bowel within a wide neck midline abdominal hernia unchanged from comparison. No suspicious peritoneal or mesenteric findings.. Pelvic Viscera: Enlargement of a enhancing mass at the vaginal cuff measuring 40 x 37 mm, previously 22 x 20 mm (series 3, image 252). This mass directly abuts the posterior urinary bladder. Lymph Nodes/Vasculature: No lymphadenopathy by CT size criteria. No new or enlarging lymph nodes. Free Fluid:No ascites. Musculoskeletal and Body Wall: Grade 1 anterolisthesis of L4 on L5. No suspicious lytic or sclerotic osseous lesion. - Impression - Chest: No evidence of disease progression. Abdomen/Pelvis: Enlargement of a vaginal cuff enhancing mass concerning for disease progression. Interval enlargement of an indeterminant right adrenal gland nodule concerning for metastatic disease. CRITICAL RESULT: No. COMMUNICATION: Per this written report. 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 ??Chemo for recurrence. ??Most recently had radiation.? Has recurrence per CT 06/30/2021 with a vaginal mass up to 4 cm from 2.2 cm. Already has been radiated. Still chickaloon sensitive (10-12 chickaloon free interval between finishing last chemo 07/2019 and recurrence at cuff -06/2021. Pre chemo labs drawn today. ?? Proceed with cycle 3 carboplatin. Continue weekly hematologic monitoring. Recommend continuing stool softener. CT scan of abd/pelvis with contrast ordered today for 10/06. Problem 2: Cervical cancer?? Assessment and plan 2: Distant history, residential survivor. ??No signs of recurrence. ?? Problem 3: History of left breast cancer x 2?? Assessment and plan 3: On anastrazole - continue. ??No current signs of disease Problem 4: Difficult IV access?? Assessment and plan 4: Has port Problem 5: Neuropathy Assessment and plan 5: Treatment related. Worst at night. Will not use Taxol again. Started trial of Gabapentin at night last visit and was very helpful. Continue. Problem 6: h/o syncope episodes and carotid stenosis Assessment and plan 6: No current symptoms. Overdue for visit with cardio. Advised patient to schedule follow up. Team based care includes nurse intake, review of prior documentation, history, physical exam, discussion of plan of care, appointment scheduling, lab orders, port access, and documentation. Encountertime 40 min [facility] [address] [facility] [address] Dept: [phone] Dept Loc: [phone] * Progress Notes - Norma Galeana, WarrenD - 09/15/2021 11:00 AM EST Pharmacy Hematology/Oncology Treatment Plan Note Daniela John is a 75 y.o. 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 [...] on 06/19/2021 Study Patient: No Treatment Protocol: CARBOplatin Every 21 Days Treatment Plan reviewed for: [x] Follow-Up Clinical Review for Cycle 3 Day 1 [] Follow-Up Clinical Review for Continuous Oral Therapy Interval History: Patient has h/o HER2 negative breast cancer currently on anastrozole (will complete 5 years December 2021) and Prolia every 6 months, possible cervical cancer, and 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 Will proceed with single agent carboplatin (last treated with chickaloon 08/26/19). Dosing Wt: 84.9 kg Today's Wt: Wt Readings from Last 1 Encounters: 09/15/21 84.4 kg (186 lb 1.1 oz) Dosing Ht: 160 cm DosingBSA: 1.88 m2 Recent Labs: Lab Results Component Value Date WBC 3.87 09/15/2021 HGB 11.8 09/15/2021 HCT 35.9 09/15/2021 MCV 98 09/15/2021 PLT 182 09/15/2021 Lab Results Component Value Date GLUCOSE 86 09/15/2021 CALCIUM 9.7 09/15/2021 NA 139 09/15/2021 K 4.3 09/15/2021 CO2 24 09/15/2021 CL 105 09/15/2021 BUN 18 09/15/2021 CREATININE 0.69 09/15/2021 Lab Results Component Value Date ALT 13 09/15/2021 AST 14 09/15/2021 ALKPHOS 46 09/15/2021 BILITOT 0.3 09/15/2021 Lab Results Component Value Date NEUTROABS 2.47 09/15/2021 Lab Results Component Value Date MG 1.7 (L) 09/15/2021 Vitals: Vitals: 09/15/21 1041 BP: 128/75 Pulse: 81 Temp: 37 ??C (98.6 ??F) Other Relevant Monitoring: For carboplatin: AdjBW (BMI >25): 65.4 kg SCr: 0.69 mg/dL (minimum 0.7 mg/dL utilized for calculation) eCrCl: 71.7 mL/min Treatment Plan: Carboplatin AUC 5 (483.5 mg) IV D1 Every 21 days [x] No dose adjustments made Current Treatment Plan History: Carboplatin #1: 08/04/21 - 13 lifetime dose #2: 08/27/21 #3: 09/15/21 Prior Chemotherapy History: hormone therapy for prior breast cancer carboplatin/paclitaxel Cycle 1: 04/11/18 Cycle 2: 05/02/18 Cycle 3: 05/23/18 Cycle 4: 08/01/18 Cycle 5: 08/22/18 Cycle 6: 09/12/18 Carboplatin q21d #1: 05/06/19 #2: 06/03/19 #3: 06/24/19 #4: 07/15/19 #5: 08/05/19 #6: 08/26/19 Olaparib continuous oral therapy 09/2019 - 01/2020 (dose reduced and then d/c'd d/t fatigue/anemia ?? Assessment/Plan: I reviewed the patient's chart and chemotherapy orders were approved. Patient okay to proceed with chemotherapy. Patient will return to clinic in 3 weeks. Will follow-up at that time. Pharmacist Attestation: Norma Galeana PharmD, OP Hematology/Oncology Clinical Pharmacist documented in this encounter Plan of Treatment Upcoming Encounters Date Type Department Care Team ([facility] st Contact Info) Description 08/05/2024 8:00 AM EST Office Visit [facility] [address] [facility] [address] [place] [phone] Penny Carmona MD [address] [facility] [address] [facility] [address] [place] [address] 08/05/2024 9:30 AM EST Appointment [facility] [address] [place] [address] 02/26/2025 9:30 AM EDT Appointment [facility] Breast [facility] Center [facility] [address] [facility] [address] [place] [address] 02/26/2025 10:30 AM EDT Office Visit [facility] Breast Care Center [address] [facility] [place] [address] Berenice Resendez, SHIPWRIGHT APPRENTICE [address] [facility] [address] [facility] [address] [place] [address] documented as of this encounter Procedures Procedure Name Priority Date/Time Associated Diagnosis Comments CBC WITH AUTO DIFFERENTIAL Routine 09/15/2021 11:00 AM EST Carcinoma of fallopian tube, unspecified laterality (CMS/HCC) CA 125 Routine 09/15/2021 11:00 AM EST Carcinoma of fallopian tube, unspecified laterality (CMS/HCC) MAGNESIUM, PLASMA STAT 09/15/2021 11: 00 AM EST Carcinoma of fallopian tube, unspecified laterality (CMS/HCC) COMPREHENSIVE METABOLIC PANEL, PLASMA Routine 09/15/2021 11:00 AM EST Carcinoma of fallopian tube, unspecified laterality (CMS/HCC) documented in this encounter Results * CT Abdomen Pelvis w IV Contrast (10/04/2021 1:01 PM EST) Anatomical Region Laterality Modality Abdomen, Pelvis Computed Tomogra phy Impressions 10/04/2021 1:35 PM EST Decreased size of vaginal cuff peripherally enhancing/rim enhancing mass now 2.4 cm versus 4 cm on prior. No new metastatic disease with stable appearance of right adrenal nodule from prior. No acute pathology otherwise CRITICAL RESULT: ?? No. COMMUNICATION: Per this written report. Dictated by Amari Serna on 10/04/2021 1:19 PM Signed by Amari Serna on 10/04/2021 1:35 PM Narrative 10/04/2021 1:35 PM EST Exam/Procedure: CT ABDOMEN PELVIS W IV CONTRAST ordered by XIOMY PADGETT, [id number] CLINICAL INDICATION: Ovarian cancer, assess treatment response TECHNIQUE: Multiple axial CT images were obtained from lung bases through pubic symphysis following administration of IV contrast, Omnipaque 300, 100 mL. Delayed images of abdomen and kidneys also obtained. Reformatted images in the coronal and sagittal planes were generated from the axial data set to facilitate diagnostic accuracy. Total DLP (Dose-Length Product): 426.02 mGy.cm. Please note: The reported value represents the total of one or more individual components during the CT acquisition on this date and at this time, and as such, the same value may appear in more than one CT report depending on the interpreting/reporting physicians. COMPARISON: CT dated 06/30/2021 FINDINGS: Lower Chest: No suspicious findings. Solid Abdominal Organs: Unremarkable liver and gallbladder surgically absent. No suspicious renal mass lesions. No hydronephrosis. Unremarkable spleen. Stable right adrenal nodule measuring 2 cm. No suspicious pancreatic findings. GI Tract/Mesentery/Peritoneum: The large and small bowel appear normal in caliber. No evidence of inflammatory change. No suspicious peritoneal/mesenteric findings. Ventral abdominal wall hernia containing nondilated bowel stable to subtly progressed in size and involvement of bowel from prior comparison without inflammatory findings Pelvic Viscera: Decreased size of vaginal cuff enhancing mass with somewhat central low signal and peripheral soft tissue enhancement 2.4 cm compared to 4 cm on prior. No new pelvic mass or pelvic adnexal findings Lymph Nodes/Vasculature: No lymphadenopathy by CT size criteria. The aortoiliac vasculature is patent and normal in caliber. Free Fluid:None Musculoskeletal and Body Wall:No aggressive or suspicious findings. Procedure Note Daphne Amari C, DO - 10/04/2021 Exam/Procedure: CT ABDOMEN PELVIS W IV CONTRAST ordered by XIOMY [id number] CLINICAL INDICATION: Ovarian cancer, assess treatment response TECHNIQUE: Multiple axial CT images were obtained from lung bases through pubicsymphysis following administration of IV contrast, Omnipaque 300, 100 mL.Delayed images of abdomen and kidneys also obtained. Reformatted images inthe coronal and sagittal planes were generated from the axial data set tofacilitate diagnostic accuracy. Total DLP (Dose-Length Product): 426.02 mGy.cm. Please note: The reportedvalue represents the total of one or more individual components during theCT acquisition on this date and at this time, and as such, the same valuemay appear in more than one CT report depending on theinterpreting/reporting physicians. COMPARISON: CT dated 06/30/2021 FINDINGS: Lower Chest: No suspicious findings. Solid Abdominal Organs: Unremarkable liver and gallbladder surgicallyabsent. No suspicious renal mass lesions. No hydronephrosis. Unremarkablespleen. Stable right adrenal nodule measuring 2 cm. No suspiciouspancreatic findings. GI Tract/Mesentery/Peritoneum: The large and small bowel appear normal incaliber. No evidence of inflammatory change. No suspiciousperitoneal/mesenteric findings. Ventral abdominal wall hernia containingnondilated bowel stable to subtly progressed in size and involvement ofbowel from prior comparison without inflammatory findings Pelvic Viscera: Decreased size of vaginal cuff enhancing mass withsomewhat central low signal and peripheral soft tissue enhancement 2.4 cmcompared to 4 cm on prior. No new pelvic mass or pelvic adnexal findings Lymph Nodes/Vasculature: No lymphadenopathy by CT size criteria. Theaortoiliac vasculature is patent and normal in caliber. Free Fluid:None Musculoskeletal and Body Wall:No aggressive or suspicious findings. IMPRESSION: Decreased size of vaginal cuff peripherally enhancing/rim enhancing massnow 2.4 cm versus 4 cm on prior. No new metastatic disease with stableappearance of right adrenal nodule from prior. No acute pathologyotherwise CRITICAL RESULT: No. COMMUNICATION: Per this written report. Dictated by Amari Serna on 10/04/2021 1:19 PM Signed by Amari Serna on 10/04/2021 1:35 PM Xiomy Kleinbson IMG CT PROCEDURES Final Result * CA 125 (09/15/2021 11:00 AM EST) Pathologist [facility] CA 125 6.87 <=38.00 U/mL 09/15/2021 12:[address] [facility] Blood Blood sample taken from central line / Unknown Venipuncture / Unknown 09/15/2021 11:00 AM EST 09/15/2021 11:24 AM EST Shy Valente SHIPWRIGHT APPRENTICE, DNP LAB BLOOD ORDERABLES Final Result [facility] [address] [place] [address] * (ABNORMAL) CBC and differential (09/15/2021 11:00 AM EST) WBC Count 3.87 3.70 - 10.30 10*3/uL LAB HEMATOLOGY METHOD 09/15/2021 11:[address] [facility] RBC Count 3.65(L) 3.90 - 5.20 10*6/uL LAB HEMATOLOGY METHOD 09/15/2021 11:[address] [facility] HGB 11.8 11.2 - 15.7 g/dL LAB HEMATOLOGY METHOD 09/15/2021 11:[address] [facility] HCT 35.9 34.0 - 45.0 % LAB HEMATOLOGY METHOD 09/15/2021 11:[address] [facility] Platelet Count 182 155 - 369 10*3/uL LAB HEMATOLOGY METHOD 09/15/2021 11:[address] [facility] MCV 98 79 - 98 fL LAB HEMATOLOGY METHOD 09/15/2021 11:[address] [facility] MCH 32.3(H) 26.0 - 32.0 pg LAB HEMATOLOGY METHOD 09/15/2021 11:[address] [facility] MCHC 32.9 30.7 - 35.5 g/dL LAB HEMATOLOGY METHOD 09/15/2021 11:[address] [facility] RDW 15.8(H) 11.5 - 14.5 % LAB HEMATOLOGY METHOD 09/15/2021 11:[address] [facility] MPV 9.0 8.8 - 12.5 fL LAB HEMATOLOGY METHOD 09/15/2021 11:[address] [facility] nRBC 0.0 <=0.0 per 100 WBCs LAB HEMATOLOGY METHOD 09/15/2021 11:[address] [facility] Differential Type Automated LAB HEMATOLOGY METHOD 09/15/2021 11:[address] [facility] Neutrophils % 64.0 % LAB HEMATOLOGY METHOD 09/15/2021 11:[address] [facility] Lymphocytes % 28.0 % LAB HEMATOLOGY METHOD 09/15/2021 11:[address] [facility] Monocytes % 7.0 % LAB HEMATOLOGY METHOD 09/15/2021 11:[address] [facility] Eosinophils % 1.0 % LAB HEMATOLOGY METHOD 09/15/2021 11:[address] [facility] Basophils % 0.0 % LAB HEMATOLOGY METHOD 09/15/2021 11:[address] [facility] Immature Granulocytes % 0.0 % LAB HEMATOLOGY METHOD 09/15/2021 11:[address] [facility] Neutrophils Absolute 2.47 1.60 - 6.10 10*3/uL LAB HEMATOLOGY METHOD 09/15/2021 11:[address] [facility] Lymphocytes Absolute 1.07(L) 1.20 - 3.90 10*3/uL LAB HEMATOLOGY METHOD 09/15/2021 11:[address] [facility] Monocytes Absolute 0.28(L) 0.30 - 0.90 10*3/uL LAB HEMATOLOGY METHOD 09/15/2021 11:[address] [facility] Eosinophils Absolute 0.03 0.00 - 0.50 10*3/uL LAB HEMATOLOGY METHOD 09/15/2021 11:[address] [facility] Basophils Absolute 0.01 0.00 - 0.10 10*3/uL LAB HEMATOLOGY METHOD 09/15/2021 11:[address] [facility] Immature Granulocytes Absolute 0.01 0.00 - 0.06 10*3/uL LAB HEMATOLOGY METHOD 09/15/2021 11:[address] [facility] Blood Blood sample taken from central line / Unknown Venipuncture / Unknown 09/15/2021 11:00 AM EST 09/15/2021 11:[address] [facility] - 09/15/2021 11:24 AM EST Therapeutic decision making should be based on absolute values, rather than percentages. Reuben Perry MD LAB BLOOD ORDERABLES Final Result [facility] [address] [place] [id number] * Comprehensive metabolic panel (09/15/2021 11:00 AM EST) Glucose, Plasma 86 74 - 99 mg/dL 09/15/2021 11:58 AM [facility] BUN, Plasma 18 8 - 23 mg/dL 09/15/2021 11:58 AM [facility] Creatinine, Plasma 0.69 0.60 - 1.10 mg/dL 09/15/2021 11:58 AM [facility] BUN/Creatinine Ratio 26 09/15/2021 11:58 AM [facility] Sodium, Plasma 139 136 - 145 mmol/L 09/15/2021 11:58 AM [facility] Potassium, Plasma 4.3 3.7 - 4.8 mmol/L 09/15/2021 11:58 AM [facility] Chloride, Plasma 105 97 - 107 mmol/L 09/15/2021 11:58 AM [facility] CO2, Plasma 24 22 - 29 mmol/L 09/15/2021 11:58 AM [facility] Anion Gap 10 6 - 16 mmol/L 09/15/2021 11:58 AM [facility] Total Calcium, Plasma 9.7 8.9 - 10.2 mg/dL 09/15/2021 11:58 AM [facility] Total Protein 6.7 6.3 - 7.9 g/dL 09/15/2021 11:58 AM [facility] Albumin, Plasma 4.1 3.5 - 5.2 g/dL 09/15/2021 11:58 AM [facility] AST, Plasma 14 9 - 36 U/L 09/15/2021 11:[address] [facility] ALT, Plasma 13 8 - 33 U/L 09/15/2021 11:[address] [facility] Alkaline Phosphatase, Plasma 46 46 - 142 U/L 09/15/2021 11:[address] [facility] Total Bilirubin, Plasma 0.3 0.2 - 1.1 mg/dL 09/15/2021 11:[address] [facility] eGFR >60 >60 mL/min/1.7 3m*2 09/15/2021 11:[address] [facility] Comment:eGFR = estimated GFR ; eGFR units = mL/min/1.73 sq meters Chronic Kidney Disease is considered if eGFR <60 mL/min/1.73 sq meters Kidney failure is considered if eGFR is <15 mL/min/1.73 sq meters. eGFR assumes steady state plasma creatinine concentration; not applicable if renal function is rapidly changing or patient is on dialysis. eGFR, if AFR/AM >60 >60 mL/min/1.7 3m*2 09/15/2021 11:[address] [facility] Comment:eGFR = estimated GFR ; eGFR units = mL/min/1.73 sq meters Chronic Kidney Disease is considered if eGFR <60 mL/min/1.73 sq meters Kidney failure is considered if eGFR is <15 mL/min/1.73 sq meters. eGFR assumes steady state plasma creatinine concentration; not applicable if renal function is rapidly changing or patient is on dialysis. Blood Blood sample taken from central line / Unknown Venipuncture / Unknown 09/15/2021 11:00 AM EST 09/15/2021 11:24 AM EST Reuben Perry MD LAB BLOOD ORDERABLES Final Result [facility] [address] [place] [address] * (ABNORMAL) Magnesium (09/15/2021 11:00 AM EST) Magnesium, Plasma 1.7(L) 1.9 - 2.4 mg/dL 09/15/2021 11:[address] 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 [address] Referring Physician 03/10/21 documented as of this encounter
--- OUTSIDE RECORDS SUMMARY | 2024-07-10 12:02 | XMS_ITS | Encounter Summary ---
Author Organization [facility] Address [address] [place], [place] [id number] Care Team Providers Care Interactive Video Technician Name Role Phone Leny Valdes Primary Care Provider [phone] Aliyah Valencia MD Unavailable [phone] Encounter Details Date Type Department Care Team (Late Contact Info) Description 09/11/2021 Orders Only [facility] [address] [place] [address] Reuben Perry MD [address] [facility] [address] [place] [address] Carcinoma of fallopian tube, unspecified [...] have Coronavirus / COVID-19? No / Unsure 08/27/2021 12:37 PM EST documented as of this encounter Plan of Treatment Upcoming Encounters Date Type Department Care Team (Late Contact Info) Description 08/05/2024 8:00 AM EST Office Visit [facility] [address] [place] [address] Penelope Carmona MD 800 [facility] [address] [facility] [address] [place] [address] 08/05/2024 9:30 AM EST Appointment [facility] 1 [address] [place] [address] 02/26/2025 9:30 AM EDT Appointment [facility] [address] [facility] [address] [place] [address] 02/26/2025 10:30 AM EDT Office Visit [facility] [address] [facility], 2nd [place] [address] Berenice Resendez, FINANCIAL DATA ANALYST [address] [facility] [address] [facility] [address] [place] [address] documented as of this encounter Results * (ABNORMAL) Magnesium (09/15/2021 11:00 AM EST) Magnesium, Plasma 1.7(L) 1.9 - 2.4 mg/dL 09/15/2021 11:58 AM EST [facility] Blood Blood sample taken from central line / Unknown Venipuncture / Unknown 09/15/2021 11:00 AM EST 09/15/2021 11:24 AM EST Reuben Perry MD LAB BLOOD ORDERABLES Final Result [facility] [address] [place] [address] * Comprehensive metabolic panel (09/15/2021 11:00 AM EST) Glucose, Plasma 86 74 - 99 mg/dL 09/15/2021 11:58 AM EST [facility] BUN, Plasma 18 8 - 23 mg/dL 09/15/2021 11:58 AM EST [facility] Creatinine, Plasma 0.69 0.60 - 1.10 mg/dL 09/15/2021 11:58 AM [facility] BUN/Creatinine Ratio 26 09/15/2021 11:58 AM [facility] Sodium, Plasma 139 136 - 145 mmol/L 09/15/2021 11:58 AM [facility] Potassium, Plasma 4.3 3.7 - 4.8 mmol/L 09/15/2021 11:58 AM [facility] Chloride, Plasma 105 97 - 107 mmol/L 09/15/2021 11:58 AM [facility] CO2, Plasma 24 22 - 29 mmol/L 09/15/2021 11:58 AM [facility] Anion Gap 10 6 - 16 mmol/L 09/15/2021 11:58 AM [facility] Total Calcium, Plasma 9.7 8.9 - 10.2 mg/dL 09/15/2021 11:58 AM [facility] Total Protein 6.7 6.3 - 7.9 g/dL 09/15/2021 11:58 AM [facility] Albumin, Plasma 4.1 3.5 - 5.2 g/dL 09/15/2021 11:58 AM [facility] AST, Plasma 14 9 - 36 U/L 09/15/2021 11:58 AM [facility] ALT, Plasma 13 8 - 33 U/L 09/15/2021 11:58 AM [facility] Alkaline Phosphatase, Plasma 46 46 - 142 U/L 09/15/2021 11:58 AM [facility] Total Bilirubin, Plasma 0.3 0.2 - 1.1 mg/dL 09/15/2021 11:58 AM [facility] eGFR >60 >60 mL/min/1.7 3m*2 09/15/2021 11:58 AM [facility] Comment:eGFR = estimated GFR ; eGFR [...] >60 >60 mL/min/1.7 3m*2 09/15/2021 11:58 AM [facility] Comment:eGFR = estimated GFR ; eGFR [...] Perry MD LAB BLOOD ORDERABLES Final Result [facility] [address] [place] [address] * (ABNORMAL) CBC and differential (09/15/2021 11:00 AM EST) WBC Count 3.87 3.70 - 10.30 10*3/uL LAB HEMATOLOGY METHOD 09/15/2021 11:24 AM EST [facility] RBC Count 3.65(L) 3.90 - 5.20 10*6/uL LAB HEMATOLOGY METHOD 09/15/2021 11:24 AM EST [facility] HGB 11.8 11.2 - 15.7 g/dL LAB HEMATOLOGY METHOD 09/15/2021 11:24 AM EST [facility] HCT 35.9 34.0 - 45.0 % LAB HEMATOLOGY METHOD 09/15/2021 11:24 AM EST [facility] Platelet Count 182 155 - 369 10*3/uL LAB HEMATOLOGY METHOD 09/15/2021 11:24 AM EST [facility] MCV 98 79 - 98 fL LAB HEMATOLOGY METHOD 09/15/2021 11:24 AM EST [facility] MCH 32.3(H) 26.0 - 32.0 pg LAB HEMATOLOGY METHOD 09/15/2021 11:24 AM EST [facility] MCHC 32.9 30.7 - 35.5 g/dL LAB HEMATOLOGY METHOD 09/15/2021 11:24 AM EST [facility] RDW 15.8(H) 11.5 - 14.5 % LAB HEMATOLOGY METHOD 09/15/2021 11:24 AM EST [facility] MPV 9.0 8.8 - 12.5 fL LAB HEMATOLOGY METHOD 09/15/2021 11:24 AM EST [facility] nRBC 0.0 <=0.0 per 100 WBCs LAB HEMATOLOGY METHOD 09/15/2021 11:24 AM EST [facility] Differential Type Automated LAB HEMATOLOGY METHOD 09/15/2021 11:24 AM EST [facility] Neutrophils % 64.0 % LAB HEMATOLOGY METHOD 09/15/2021 11:24 AM EST [facility] Lymphocytes % 28.0 % LAB HEMATOLOGY METHOD 09/15/2021 11:24 AM EST [facility] Monocytes % 7.0 % LAB HEMATOLOGY METHOD 09/15/2021 11:24 AM EST [facility] Eosinophils % 1.0 % LAB HEMATOLOGY METHOD 09/15/2021 11:24 AM EST [facility] Basophils % 0.0 % LAB HEMATOLOGY METHOD 09/15/2021 11:24 AM EST [facility] Immature Granulocytes % 0.0 % LAB HEMATOLOGY METHOD 09/15/2021 11:24 AM EST [facility] Neutrophils Absolute 2.47 1.60 - 6.10 10*3/uL LAB HEMATOLOGY METHOD 09/15/2021 11:24 AM EST [facility] Lymphocytes Absolute 1.07(L) 1.20 - 3.90 10*3/uL LAB HEMATOLOGY METHOD 09/15/2021 11:24 AM EST [facility] Monocytes Absolute 0.28(L) 0.30 - 0.90 10*3/uL LAB HEMATOLOGY METHOD 09/15/2021 11:24 AM EST [facility] Eosinophils Absolute 0.03 0.00 - 0.50 10*3/uL LAB HEMATOLOGY METHOD 09/15/2021 11:24 AM EST [facility] Basophils Absolute 0.01 0.00 - 0.10 10*3/uL LAB HEMATOLOGY METHOD 09/15/2021 11:24 AM EST [facility] Immature Granulocytes Absolute 0.01 0.00 - 0.06 10*3/uL LAB HEMATOLOGY METHOD 09/15/2021 11:24 AM EST [facility] Blood Blood sample taken from central line / Unknown Venipuncture / Unknown 09/15/2021 11:00 AM EST 09/15/2021 11:22 AM EST [facility] - 09/15/2021 11:24 AM EST Therapeutic decision making should be based on absolute values, rather than percentages. Reuben Perry MD LAB BLOOD ORDERABLES Final Result [facility] [address] [place] [address] documented in this encounter Visit Diagnoses Diagnosis Carcinoma of fallopian tube, unspecified laterality (CMS/HCC)- Primary documented in this encounter Additional Health Concerns Assessment Noted Time A fall risk assessment has been complete d for the patient 08/27/2021 1:18 PM EST documented as of this encounter Care Teams Interactive Video Technician Relationship Specialty Start Date End Date Leny Valdes DO [address] [place] [address] PCP - General 12/11/20 12/13/21 Aliyah Valencia MD [address] [place] [address] Referring Physician 03/10/21 documented as of this encounter
--- OUTSIDE RECORDS SUMMARY | 2024-07-10 12:02 | XMS_ITS | Encounter Summary ---
Author Organization Healthcare Address [address] [place] [address] Care Team Providers Care Membership Sales Manager Name Role Phone Leny Valdes Lida CAMERON Primary Care Provider [phone] Aliyah Valencia MD Unavailable [phone] Encounter Details Date Type Department Care Team (Latest Contact Info) Description 10/04/2021 Travel Social History Tobacco Use Types Packs/Day [...] have Coronavirus / COVID-19? No / Unsure 10/04/2021 11:57 AM EST documented as of this encounter Plan of Treatment Upcoming Encounters Date Type Department Care Team (Late st Contact Info) Description 08/05/2024 8:00 AM EST Office Visit [facility] 800 [facility] [address] [place] [address] Penelope Carmona MD [address] [facility] [address] [place] [address] 08/05/2024 9:30 AM EST Appointment [facility] 1 [address] [place] [address] 02/26/2025 9:30 AM EDT Appointment [facility] [address] [place] [address] 02/26/2025 10:30 AM EDT Office Visit [facility] [address] [place] [address] Berenice Resendez D, STOCK SPECULATOR 800 [facility] [address] [place] [address] documented as of this encounter Visit Diagnoses Not on filedocumented in this encounter Additional Health Concerns Assessment Noted Time A fall risk assessment has been complete d for the patient 09/15/2021 10:55 AM EST documented as of this encounter Care Teams Membership Sales Manager Relationship Specialty Start Date End Date Leny Valdes DO [address] [place] [address] PCP - General 12/11/20 12/13/21 Aliyah Valencia MD [address] [place] [address] Referring Physician 03/10/21 documented as of this encounter
--- OUTSIDE RECORDS SUMMARY | 2024-07-10 12:02 | XMS_ITS | Encounter Summary ---
Author Organization Healthcare Address [address] [place] [address] Care Team Providers Care Extension Associate Name Role Phone Leny Valdes Lida CAMERON Primary Care Provider [phone] Aliyah Valencia MD Unavailable [phone] Encounter Details Date Type Department Care Team (Latest Contact Info) Description 10/27/2021 Travel Social History Tobacco Use Types Packs/Day [...] have Coronavirus / COVID-19? No / Unsure 10/27/2021 10:07 AM EDT documented as of this encounter Plan of Treatment Upcoming Encounters Date Type Department Care Team (Late st Contact Info) Description 08/05/2024 8:00 AM EST Office Visit [facility] 800 [facility] [address] [place] [address] Penelope Carmona MD [address] [place] [address] 08/05/2024 9:30 AM EST Appointment [facility] 1 [address] [place] [address] 02/26/2025 9:30 AM EDT Appointment [facility] [address] [place] [address] 02/26/2025 10:30 AM EDT Office Visit [facility] [address] [facility], 2nd [place] [address] Berenice Resendez, RULING MACHINE FEEDER 800 [facility] [address] [place] [address] documented as of this encounter Visit Diagnoses Not on filedocumented in this encounter Additional Health Concerns Assessment Noted Time A fall risk assessment has been complete d for the patient 10/27/2021 11:53 AM EDT documented as of this encounter Care Teams Extension Associate Relationship Specialty Start Date End Date Leny Valdes DO [address] [place] [address] PCP - General 12/11/20 12/13/21 Aliyah Valencia MD [address] [place] [address] Referring Physician 03/10/21 documented as of this encounter
--- OUTSIDE RECORDS SUMMARY | 2024-07-10 12:02 | XMS_ITS | Encounter Summary ---
Author Organization [facility] Address [address] [place], [place] [address] Care Team Providers Care Sleep Lab Technologist Name Role Phone ValdesLeny Primary Care Provider [phone] Aliyah Valencia MD Unavailable [phone] Reason for Visit * Episode Based Medications (Routine) - Closed Specialty Diagnoses / Procedures Referred By Contac t Referred To Contact Diagnoses Carcinoma of fallopian tube, unspecified laterality (CMS/HCC) Penelope Carmona MD 800 [facility] [address] [address] Phone: tel: fax: [facility] Infusion Clinic 2 [address] [place] [address] Phone: tel: Referral ID Status Reason Start Date Expiration Date Visits Re quested Visits Authorized [id number] Closed 06/30/2021 06/30/2022 1 21 Encounter Details Date Type Department Care Team (Late st Contact Info) Description 09/15/2021 11:27 AM EST - 09/15/2021 11:59 PM [facility] Hospital Encounter [facility] Infusion Clinic 1 [address] [place] [address] Reuben Perry MD 800 [facility] [address] [address] Carcinoma of fallopian tube, unspecified [...] Sign Reading Time Taken Comments Blood Pressure 115/79 09/15/2021 11:32 AM EST Pulse 94 09/15/2021 11:32 AM EST Temperature 37 ??C (98.6 ??F) 09/15/2021 11:32 AM EST Respiratory Rate 16 09/15/2021 11:32 AM EST Oxygen Saturation 96% 09/15/2021 11:32 AM EST Inhaled Oxygen Concentration - - Weight 84.4 kg (186 lb 1.1 oz) 09/15/2021 11:32 AM EST Height 161.3 cm (5' 3.5 ) 09/15/2021 11:32 AM ES T Body Mass Index 32.44 09/15/2021 11:32 AM EST documented in this encounter Medications at Time of Discharge aspirin 81 MG chewable tablet Chew 1 tablet (81 mg) 1 (one) time each day. ergocalciferol (Vitamin D-2) 1.25 MG (12416 UT) capsule Take 1 capsule (50,000 Units) by mouth 1 (one) time per week. Monday lisinopril 5 MG tablet Take 1 tablet (5 mg) by mouth 1 (one) time each day. anastrozole (Arimidex) 1 MG chemo tablet Take [...] mouth 1 (one) time each day. 3 gabapentin (Neurontin) 300 MG capsule Take 1 capsule (300 mg total) by mouth every night. 30 capsule 3 06/30/2021 2 ketoconazole (NIZOral) 2 % shampoo 08/12/2021 3 levothyroxine (Synthroid, Levoxyl) 75 MCG tablet [...] [address] [place] [address] Penelope Carmona MD [address] [place] [address] 08/05/2024 9:30 AM EST Appointment [facility] 1 [address] [place] [address] 02/26/2025 9:30 AM EDT Appointment [facility] [address] [place] [address] 02/26/2025 10:30 AM EDT Office Visit [facility] Breast Care Center 7[address] [facility], 2nd [place] [address] Berenice Resendez, DEPUTY DIRECTOR OF FINANCE 800 [facility] [address] [place] [address] documented as of this encounter Visit Diagnoses Diagnosis Carcinoma of fallopian tube, 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 Dispose in BLACK Hazardous Waste Container. Chemotherapy: refer to [id number]., On Mon09/15/21 at 1315, For 1 dose, NS 250 mLIndications:Carcinoma of fallopian tube, unspecified laterality (CMS/HCC) New Bag 09/15/2021 1:25 PM EST 483.5 mg 686.7 mL/hr dexamethasone (Decadron) tablet 12 mg 12 mg, Oral, Once, 1 dose, On Mon09/15/21 at 1245, RoutineIndications:Carcinoma of fallopian tube, unspecified laterality (CMS/HCC) Given 09/15/2021 12:33 PM EST 12 mg magnesium oxide (Mag-Ox) tablet 400 mg 400 mg, Oral, Once as needed, 1 dose, Starting on Mon09/15/21 at 1204, Until Mon09/15/21 at 1300, Routine, For magnesium value 1.5 to 1.8 and patient having LESS THAN or EQUAL to 3 loose stools per dayIndications:Neuropathy Given 09/15/2021 1:00 PM EST 400 mg ondansetron ODT (Zofran-ODT) disintegrating tablet 16 mg 16 mg, Oral, Once, 1 dose, On Mon09/15/21 at 1245, RoutineIndications:Carcinoma of fallopian tube, unspecified laterality (CMS/HCC) Given 09/15/2021 12:33 PM EST 16 mg documented in this encounter Additional Health Concerns Assessment Noted Time A fall risk assessment has been complete d for the patient 09/15/2021 10:55 AM EST documented as of this encounter Care Teams Sleep Lab Technologist Relationship Specialty Start Date End Date Leny Valdes DO [address] [place] [address] PCP - General 12/11/20 12/13/21 Aliyah Valencia MD [address] [place] [address] Referring Physician 03/10/21 documented as of this encounter
--- OUTSIDE RECORDS SUMMARY | 2024-07-10 12:02 | XMS_ITS | Encounter Summary ---
Author Organization [facility] Address [address] [place] [address] Care Team Providers Care Laboratory Chemist Name Role Phone LucioNuraмаринаfang Lida CAMERON Primary Care Provider [phone] Aliyah Valencia MD Unavailable [phone] Reason for Visit * Episode Based Medications (Routine) - Closed Specialty Diagnoses / Procedures Referred By Contac t Referred To Contact Diagnoses Carcinoma of fallopian tube, unspecified laterality (CMS/HCC) Penelope Carmona MD [address] [place] [address] [address] Phone: tel: fax: [facility] Infusion Clinic [address] [place] [address] Phone: tel: Referral ID Status Reason Start Date Expiration Date Visits Re quested Visits Authorized [id number] Closed 06/30/2021 06/30/2022 1 21 Encounter Details Date Type Department Care Team (Latest Contact Info) Description 11/17/2021 2:09 PM EDT - 11/17/2021 11:59 PM EDT Hospital Encounter [facility] 1 [address] [place] [address] Carcinoma of fallopian tube, unspecified [...] suspected to have Coronavirus/COVID-19? No / Unsure 11/17/2021 1:14 PM EDT documented as of this encounter Last Filed Vital Signs Vital Sign Reading Time Taken Comments Blood Pressure 119/66 11/17/2021 2:10 PM EDT Pulse 96 11/17/2021 2:10 PM EDT Temperature 37.8 ??C (100 ??F) 11/17/2021 2:10 PM EDT Respiratory Rate 18 11/17/2021 2:10 PM EDT Oxygen Saturation 99% 11/17/2021 2:10 PM EDT Inhaled Oxygen Concentration - - Weight 86.8 kg (191 lb 5.8 oz) 11/17/2021 2:10 P M EDT Height 161.3 cm (5' 3.5 ) 11/17/2021 2:10 PM EDT Body Mass Index 33.37 11/17/2021 2:10 PM EDT documented in this encounter Medications at Time of Discharge aspirin 81 MG chewable tablet Chew 1 tablet (81 mg) 1 (one) time each day. ergocalciferol (Vitamin D-2) 1.25 MG (77428 UT) capsule Take 1 capsule (50,000 Units) [...] every night. 30 capsule 3 10/06/2021 2 ketoconazole (NIZOral) 2 % shampoo 08/12/2021 [...] Visit [facility] [address] [place] [address] Penelope Carmona MD [address] [facility] [address] [place] [address] 08/05/2024 9:30 AM EST Appointment [facility] 1 [address] [place] [address] 02/26/2025 9:30 AM EDT Appointment [facility] [address] [place] [address] 02/26/2025 10:30 AM EDT Office Visit [facility] Breast Care Center [address] [facility], 2nd [place] [address] Berenice Resendez, TRACER CLERK 800 [facility] [address] [facility] [address] [place] [address] documented as of this encounter Visit Diagnoses Diagnosis Carcinoma of fallopian tube, unspecified laterality (CMS/HCC)- Primary documented in this encounter Administered Medications Inactive Administered Medications - up to 3 most recent administrations Medication Order MAR Action Action Date Dose Rate Site CARBOplatin (Paraplatin) 478 mg in sodium chloride 0.9 % 250 mL chemo IVPB 478 mg (Target AUC = 5), Intravenous, at 685.6 mL/hr, Administer over 30 Minutes, Once, Hazardous Drug-Tier 1 Precautions. Dispose in BLACK Hazardous Waste Container. Chemotherapy: refer to [id number]., On Mon11/17/21 at 1530, For 1 dose, NS 250 mL Labs in [employer] for Scr-also in pharmacy noteIndications:Carcinoma of fallopian tube, unspecified laterality (CMS/HCC) New Bag 11/17/2021 3:31 PM EDT 478 mg 685.6 mL/hr dexamethasone (Decadron) tablet 12 mg 12 mg, Oral, Once, 1 dose, On Mon11/17/21 at 1500, RoutineIndications:Carcinoma of fallopian tube, unspecified laterality (CMS/HCC) Given 11/17/2021 2:45 PM EDT 12 mg magnesium oxide (Mag-Ox) tablet 400 mg 400 mg, Oral, Once, 1 dose, On Mon11/17/21 at 1545, RoutineIndications:Carcinoma of fallopian tube, unspecified laterality (CMS/HCC) Given 11/17/2021 3:26 PM EDT 400 mg magnesium oxide (Mag-Ox) tablet 400 mg 400 mg, Oral, Once, 1 dose, On Mon11/17/21 at 1545, RoutineIndications:Carcinoma of fallopian tube, unspecified laterality (CMS/HCC) Given 11/17/2021 3:26 PM EDT 400 mg ondansetron ODT (Zofran-ODT) disintegrating tablet 16 mg 16 mg, Oral, Once, 1 dose, On Mon11/17/21 at 1500, RoutineIndications:Carcinoma of fallopian tube, unspecified laterality (CMS/HCC) Given 11/17/2021 2:45 PM EDT 16 mg documented in this encounter Additional Health Concerns Assessment Noted Time A fall risk assessment has been complete d for the patient 11/17/2021 1:43 PM EDT documented as of this encounter Care Teams Laboratory Chemist Relationship Specialty Start Date End Date Leny Valdes DO [address] [place] [address] PCP - General 12/11/20 12/13/21 Aliyah Valencia MD [address] [place] [address] Referring Physician 03/10/21 documented as of this encounter
--- OUTSIDE RECORDS SUMMARY | 2024-07-10 12:02 | XMS_ITS | Encounter Summary ---
Author Organization [facility] Address [address] [place], [place] [id number] Care Team Providers Care Bonsai Tender Name Role Phone ValdesLeny Lida CAMERON Primary Care Provider [phone] Aliyah Valencia MD Unavailable [phone] Reason for Visit * Reason Comments Chemotherapy * Episode Based Medications (Routine) - Closed Specialty Diagnoses / Procedures Referred By Contac t Referred To Contact Diagnoses Carcinoma of fallopian tube, unspecified laterality (CMS/HCC) Penelope Carmona MD [address] [facility] Tamika Alatorre [address] [address] Phone: tel: fax: [facility] Infusion Clinic [address] [place] [address] Phone: tel: Referral ID Status Reason Start Date Expiration Date Visits Re quested Visits Authorized [id number] Closed 06/30/2021 06/30/2022 1 21 Encounter Details Date Type Department Care Team (Late st Contact Info) Description 10/27/2021 10:15 AM EDT Office Visit [facility] Gynecology [address] [address] [place] [address] Reuben Perry MD [address] [facility] [address] [place] [address] Carcinoma of fallopian tube, unspecified [...] Reading Time Taken Comments Blood Pressure 116/77 10/27/2021 10:45 AM EDT Pulse 103 10/27/2021 10:45 AM EDT Temperature 36.9 ??C (98.4 ??F) 10/27/2021 10:45 AM E DT Respiratory Rate - - Oxygen Saturation - - Inhaled Oxygen Concentration - - Weight 85.7 kg (188 lb 15 oz) 10/27/2021 10:45 A M EDT Height 161.3 cm (5' 3.5 ) 10/27/2021 10:45 AM ED T Body Mass Index 32.94 10/27/2021 10:45 AM EDT documented in this encounter Miscellaneous Notes * Progress Notes - Reuben Perry MD - 10/27/2021 10:15 AM EDT Primary Care Provider: Leny Valdes DO History of Present Illness: Chief complaint: 75 yo female here for clearance for and counseling for 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 Oncologic history [...] she underwent a left needle localized lumpectomy. [place] lymph node biopsy was not performed as [...] vagina). Initiated neoadjuvant chemo with carbo/Taxol per MORTGAGE FIELD INSPECTOR followed by BSO/Omentectomy and adjuvant Carbotaxol. Recurrence in March 2019. Treated with carbo initially followed by Olaparib. 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 She is currently off of therapy. She follows with Dr. Hutchins in Dental Office Receptionist/Onc. 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 Also with interval enlargement of a adrenal nodule on right - Planning Carbo alone to start 08/04/2021 Interval updates to history: Oncologic treatment history as described above reviewed today as well as PMH/PSH/Meds/All/SH/FH, with updates made as appropriate. Patient is here today for Carbo # 5 . Doing well overall. Has mild fatigue - PS=1-2. Reports the vaginal bleeding/watery discharge she was having previously has stopped. Reports constipation for 4-5 days after last treatment which improved with stool softener. Neuropathy improved with gabapentin - needs refill. Mild abd pain noted at hernia site. Denies shortness of breath or N/V. Voiding normally. Eating well. [facility]ied [facility] PMH:??h/o breast cancer x2, ?cervical cancer, h/o [...] years ago, no drugs, retired, lives in [place]. ?? FamHx:??Father-prostate, MGma-colon. ROS: 14 pt ROS performed with pertinent positives and negatives as noted in HPI. ROS otherwise negative Objective Physical Exam: Vital Signs for this encounter: BSA: 1.96 meters squared Visit Vitals BP 116/77 Pulse 103 Temp 36.9 ??C (98.4 ??F) Ht 1.613 m (5' 3.5 ) Wt 85.7 kg (188 lb 15 oz) LMP (LMP Unknown) BMI 32.94 kg/m?? OB Status Hysterectomy Smoking Status Former Smoker BSA 1.96 m?? Physical Exam Vitals and nursing note [...] soft. Tenderness: There is no abdominal tenderness. Hernia: A hernia is present. Musculoskeletal: Right lower leg: Edema present. Left lower leg: Edema present. Skin: General: Skin is warm and dry. Coloration: Skin is not jaundiced. Findings: No bruising. Neurological: Mental Status: She is alert and oriented to person, place, and time. Psychiatric: Mood and Affect: Mood normal. Behavior: Behavior normal. Thought Content: Thought content normal. Judgment: Judgment normal. Performance Status: Asymptomatic PS= 0 Results: CBC WBC 3.70 Hgb 10.4 PLT 207 HCT 33.3 Lab Results Component Value Date NEUTROABS 2.26 10/27/2021 BASIC METABOLIC PANEL Na 142 Cl 105 BUN 23 Gluc 99 K 4.0 Co2 24 Creat 0.70 LIVER FUNCTION TESTING Tot Prot 6.2 AST 15 Tot bili 0.2 ALT 12 Alkphos 48 Ca 9.4 Mg 1.6 Phos No results found for requested labs within last 8760 hours. 10/04/2021 - CT CAP IMPRESSION: Decreased size of vaginal cuff peripherally enhancing/rim enhancing mass now 2.4 cm versus 4 cm on prior. No new metastatic disease with stable appearance of right adrenal nodule from prior. No acutepathology otherwise ?? 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 ??Chemo for recurrence. ??Most recently had radiation.? Has recurrence per CT 06/30/2021 with a vaginal mass up to 4 cm from 2.2 cm. Already has been radiated. Still nome sensitive (10-12 nome free interval between finishing last chemo 07/2019 and recurrence at cuff -06/2021. Pre chemo labs drawn today. 10/04/2021 - CT with excellent response, vag mass 4 cm -> 2.4 cm ?? Proceed with cycle 5 carboplatin. Continue weekly hematologic monitoring. Recommend continuing stool softener. F/U 3 weeks for C6 Problem 2: Cervical cancer?? 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 ??No signs of recurrence. ?? Problem [...] lab orders, port access, and documentation. 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 Will proceed with single agent carboplatin (last treated with nome 08/26/19). 10/06/21: Ms. John was seen by Dr. Perry in clinic. Her 10/04/21 CT showed response (mass 4 cm --> 2.4 cm). She is doing well and ready to proceed with treatment. Magnesium to be replaced per protocol at infusion. 10/27/21. Patient reports worsening fatigue but otherwise no new complaints. Magnesium to be replaced per protocol in infusion. Dosing Wt: 84.9 kg Today's Wt: Wt Readings from Last 1 Encounters: 10/27/21 86.2 kg (190 lb 0.6 oz) Dosing Ht: 160 cm DosingBSA: 1.88 m2 Recent Labs: Lab Results Component Value Date WBC 3.70 10/27/2021 HGB 10.4 (L) 10/27/2021 HCT 33.3 (L) 10/27/2021 MCV 107 (H) 10/27/2021 PLT 207 10/27/2021 Lab Results Component Value Date GLUCOSE 99 10/27/2021 CALCIUM 9.4 10/27/2021 NA 142 10/27/2021 K 4.0 10/27/2021 CO2 24 10/27/2021 CL 105 10/27/2021 BUN 23 10/27/2021 CREATININE 0.70 10/27/2021 Lab Results Component Value Date ALT 12 10/27/2021 AST 15 10/27/2021 ALKPHOS 48 10/27/2021 BILITOT 0.2 10/27/2021 Lab Results Component Value Date NEUTROABS 2.26 10/27/2021 Lab Results Component Value Date MG 1.6 (L) 10/27/2021 Vitals: Vitals: 10/27/21 1045 BP: 116/77 Pulse: 103 Temp: 36.9 ??C (98.4 ??F) Other Relevant Monitoring: For carboplatin: AdjBW (BMI >25): 65.4 kg SCr: 0.7 mg/dL (minimum 0.7 mg/dL utilized for calculation) eCrCl: 70.6 mL/min Treatment Plan: Carboplatin AUC 5 (478 mg) IV D1 Every 21 days [x] No dose adjustments made Current Treatment Plan History: Carboplatin #1: 08/04/21 - 13th lifetime dose #2: 08/27/21 #3: 09/15/21 #4: 10/06/21 #5: 10/27/21 - 17th lifetime dose carboplatin Prior Chemotherapy History: hormone therapy for prior [...] follow-up at that time. Pharmacist Attestation: Lori Infante PharmD, BCOP documented in this encounter Plan of Treatment Upcoming Encounters Date Type Department Care Team (Late st Contact Info) Description 08/05/2024 8:00 AM EST Office Visit [facility] [address] [facility] [address] [place] [address] Penelope Carmona MD [address] [facility] [address] Alatorre [facility] [address] [place] [address] 08/05/2024 9:30 AM EST Appointment [facility] Infusion Clinic [address] [place] [address] 02/26/2025 9:30 AM EDT Appointment [facility] Breast Care Center [facility] [address] [facility] [address] [place] [address] 02/26/2025 10:30 AM EDT Office Visit [facility] Breast Care [place] [address] [facility], 2nd [place] [address] Berenice Resendez, MAINTENANCE APPRENTICE [address] [facility] [address]re [facility] [address] [place] [address] documented as of this encounter Procedures Procedure Name Priority Date/Time Associated Diagnosis Comments CBC WITH AUTO DIFFERENTIAL Routine 10/27/2021 10:48 AM EDT Carcinoma of fallopian tube, unspecified laterality (CMS/HCC) CA 125 Routine 10/27/2021 10:48 AM EDT Carcinoma of fallopian tube, unspecified laterality (CMS/HCC) MAGNESIUM, PLASMA STAT 10/27/2021 10: 48 AM EDT Carcinoma of fallopian tube, unspecified laterality (CMS/HCC) COMPREHENSIVE METABOLIC PANEL, PLASMA Routine 10/27/2021 10:48 AM EDT Carcinoma of fallopian tube, unspecified laterality (CMS/HCC) documented in this encounter Results * CA 125 (10/27/2021 10:48 AM EDT) CA 125 7.08 <=38.00 U/mL 10/27/2021 12:22 PM EDT [facility] Blood Venous blood specimen / Unknown Venipuncture / Unknown 10/27/2021 10:48 AM EDT 10/27/2021 11:28 AM EDT us Penelope Dodson MD LAB BLOOD ORDERABLES Final Result [facility] [address] [place] [address] * (ABNORMAL) Magnesium (10/27/2021 10:48 AM EDT) Magnesium, Plasma 1.6(L) 1.9 - 2.4 mg/dL 10/27/2021 12:15 PM EDT [facility] Blood Venous blood specimen / Unknown Venipuncture / Unknown 10/27/2021 10:48 AM EDT 10/27/2021 11:28 AM EDT us Penelope Dodson MD LAB BLOOD ORDERABLES Final Result [facility] [address] [place] [address] * (ABNORMAL) Comprehensive metabolic panel (10/27/2021 10:48 AM EDT) Glucose, Plasma 99 74 - 99 mg/dL 10/27/2021 12:15 PM EDT [facility] BUN, Plasma 23 8 - 23 mg/dL 10/27/2021 12:15 PM EDT [facility] Creatinine, Plasma 0.70 0.60 - 1.10 mg/dL 10/27/2021 12:15 PM EDT [facility] BUN/Creatinine Ratio 33 10/27/2021 12:15 PM EDT [facility] Sodium, Plasma 142 136 - 145 mmol/L 10/27/2021 12:15 PM EDT [facility] Potassium, Plasma 4.0 3.7 - 4.8 mmol/L 10/27/2021 12:15 PM EDT [facility] Comment:Reference range for Serum potassium is 0.2 to 0.5 mmol/L higher than Plasma range. Chloride, Plasma 105 97 - 107 mmol/L 10/27/2021 12:15 PM EDT [facility] CO2, Plasma 24 22 - 29 mmol/L 10/27/2021 12:15 PM EDT [facility] Anion Gap 13 6 - 16 mmol/L 10/27/2021 12:15 PM EDT [facility] Total Calcium, Plasma 9.4 8.9 - 10.2 mg/dL 10/27/2021 12:15 PM EDT [facility] Total Protein 6.2(L) 6.3 - 7.9 g/dL 10/27/2021 12:15 PM EDT [facility] Albumin, Plasma 4.3 3.5 - 5.2 g/dL 10/27/2021 12:15 PM EDT [facility] AST, Plasma 15 9 - 36 U/L 10/27/2021 12:15 PM EDT [facility] ALT, Plasma 12 8 - 33 U/L 10/27/2021 12:15 PM EDT [facility] Alkaline Phosphatase, Plasma 48 46 - 142 U/L 10/27/2021 12:15 PM EDT [facility] Total Bilirubin, Plasma 0.2 0.2 - 1.1 mg/dL 10/27/2021 12:15 PM EDT [facility] eGFR >60 >60 mL/min/1.7 3m*2 10/27/2021 12:15 PM EDT [facility] Comment:eGFR = estimated GFR ; eGFR units = mL/min/1.73 sq meters Chronic Kidney Disease is considered if eGFR <60 mL/min/1.73 sq meters Kidney failure is considered if eGFR is <15 mL/min/1.73 sq meters. eGFR assumes steady state plasma creatinine concentration; not applicable if renal function is rapidly changing or patient is on dialysis. eGFR, if AFR/AM >60 >60 mL/min/1.7 3m*2 10/27/2021 12:15 PM EDT [facility] Comment:eGFR = estimated GFR ; [...] blood specimen / Unknown Venipuncture / Unknown 10/27/2021 10:48 AM EDT 10/27/2021 11:28 AM EDT us Penelope Dodson MD LAB BLOOD ORDERABLES Final Result [facility] [address] [place] [id number] * (ABNORMAL) CBC and differential (10/27/2021 10:48 AM EDT) WBC Count 3.70 3.70 - 10.30 10*3/uL LAB HEMATOLOGY METHOD 10/27/2021 11:29 AM EDT [facility] RBC Count 3.11(L) 3.90 - 5.20 10*6/uL LAB HEMATOLOGY METHOD 10/27/2021 11:29 AM EDT [facility] HGB 10.4(L) 11.2 - 15.7 g/dL LAB HEMATOLOGY METHOD 10/27/2021 11:29 AM EDT [facility] HCT 33.3(L) 34.0 - 45.0 % LAB HEMATOLOGY METHOD 10/27/2021 11:29 AM EDT [facility] Platelet Count 207 155 - 369 10*3/uL LAB HEMATOLOGY METHOD 10/27/2021 11:29 AM EDT [facility] MCV 107(H) 79 - 98 fL LAB HEMATOLOGY METHOD 10/27/2021 11:29 AM EDT [facility] MCH 33.4(H) 26.0 - 32.0 pg LAB HEMATOLOGY METHOD 10/27/2021 11:29 AM EDT [facility] MCHC 31.2 30.7 - 35.5 g/dL LAB HEMATOLOGY METHOD 10/27/2021 11:29 AM EDT [facility] RDW 19.2(H) 11.5 - 14.5 % LAB HEMATOLOGY METHOD 10/27/2021 11:29 AM EDT [facility] MPV 9.1 8.8 - 12.5 fL LAB HEMATOLOGY METHOD 10/27/2021 11:29 AM EDT [facility] nRBC 0.0 <=0.0 per 100 WBCs LAB HEMATOLOGY METHOD 10/27/2021 11:29 AM EDT [facility] Differential Type Automated LAB HEMATOLOGY METHOD 10/27/2021 11:29 AM EDT [facility] Neutrophils % 61.0 % LAB HEMATOLOGY METHOD 10/27/2021 11:29 AM EDT [facility] Lymphocytes % 29.0 % LAB HEMATOLOGY METHOD 10/27/2021 11:29 AM EDT [facility] Monocytes % 8.0 % LAB HEMATOLOGY METHOD 10/27/2021 11:29 AM EDT [facility] Eosinophils % 1.0 % LAB HEMATOLOGY METHOD 10/27/2021 11:29 AM EDT [facility] Basophils % 1.0 % LAB HEMATOLOGY METHOD 10/27/2021 11:29 AM EDT [facility] Immature Granulocytes % 0.0 % LAB HEMATOLOGY METHOD 10/27/2021 11:29 AM EDT [facility] Neutrophils Absolute 2.26 1.60 - 6.10 10*3/uL LAB HEMATOLOGY METHOD 10/27/2021 11:29 AM EDT [facility] Lymphocytes Absolute 1.08(L) 1.20 - 3.90 10*3/uL LAB HEMATOLOGY METHOD 10/27/2021 11:29 AM EDT [facility] Monocytes Absolute 0.30 0.30 - 0.90 10*3/uL LAB HEMATOLOGY METHOD 10/27/2021 11:29 AM EDT [facility] Eosinophils Absolute 0.03 0.00 - 0.50 10*3/uL LAB HEMATOLOGY METHOD 10/27/2021 11:29 AM EDT [facility] Basophils Absolute 0.02 0.00 - 0.10 10*3/uL LAB HEMATOLOGY METHOD 10/27/2021 11:29 AM EDT [facility] Immature Granulocytes Absolute 0.01 0.00 - 0.06 10*3/uL LAB HEMATOLOGY METHOD 10/27/2021 11:29 AM EDT [facility] Blood Venous blood specimen / Unknown Venipuncture / Unknown 10/27/2021 10:48 AM EDT 10/27/2021 11:19 AM EDT Narrative [facility] - 10/27/2021 11:29 AM EDT Therapeutic decision making should be based on absolute values, rather than percentages. Penelope Dodson MD LAB BLOOD ORDERABLES Final Result [facility] [address] [place] [address] documented in this encounter Visit Diagnoses Diagnosis Carcinoma of fallopian tube, unspecified laterality (CMS/HCC)- Primary documented in this encounter Additional Health Concerns Assessment Noted Time A fall risk assessment has been complete d for the patient 10/27/2021 11:53 AM EDT documented as of this encounter Care Teams Bonsai Tender Relationship Specialty Start Date End Date Leny Valdes DO [address] [place] [address] PCP - General 12/11/20 12/13/21 Aliyah Valencia MD [address] [place] [place] [address] Referring Physician 03/10/21 documented as of this encounter
--- OUTSIDE RECORDS SUMMARY | 2024-07-10 12:02 | XMS_ITS | Encounter Summary ---
Author Organization [facility] Address [address] [place] [address] Care Team Providers Care Die Cut Operator Name Role Phone Leny Valdes DO Primary Care Provider [phone] Aliyah Valencia MD Unavailable [phone] Reason for Referral * Imaging (Routine) - Closed Specialty Diagnoses / Procedures Referred By Solac t Referred To Contact Radiology Diagnoses Carcinoma of fallopian tube, unspecified laterality (CMS/HCC) Procedures CT Abdomen Pelvis w IV Contrast [facility] [address] [place] [address] Phone: tel: fax: Referral ID Status Reason Start Date Expiration Date Visits Re quested Visits Authorized [id number] Closed 09/15/2021 03/17/2023 1 1 Reason for Visit * Imaging (Routine) - Closed Specialty Diagnoses / Procedures Referred By Contac t Referred To Contact Radiology Diagnoses Carcinoma of fallopian tube, unspecified laterality (CMS/HCC) Procedures CT Abdomen Pelvis w IV Contrast [facility] [address] [place] [address] Phone: tel: fax: Referral ID Status Reason Start Date Expiration Date Visits Re quested Visits Authorized [id number] Closed 09/15/2021 03/17/2023 1 1 Encounter Details Date Type Department Care Team (Latest Contact Info) Description 10/04/2021 12:08 PM EST - 10/04/2021 11:59 PM EST Hospital Encounter [facility] [address] [place] [address] Carcinoma of fallopian tube, unspecified laterality (CMS/HCC) [...] have Coronavirus / COVID-19? No / Unsure 10/06/2021 10:18 AM EST documented as of this encounter Discharge Instructions * Discharge Instructions* Freda Beltran, ARRT - 10/04/2021 1:01 PM EST Images from the original note were not included. Patient Education Caring for Yourself after Contrast Imaging If you had ORAL contrast: ?? You can go back to your normal diet and activities as tolerated. ?? Drink plenty of fluids, unless told otherwise. If you had IV contrast:? You can go back to your normal diet and activities as tolerated. ?? Drink plenty of fluids, unless told otherwise. ?? Leave a bandage on the site for 30 minutes (where the IV was inserted or blood was drawn). If you had Intravesical (bladder) contrast:? Return to normal diet and activity. What [...] injected. ?? Some happen hours after going home.? Go to the nearest Emergency Department right away if you have any of these symptoms after you leavethe clinic or hospital. ?? Sneezing ?? Itching in your mouth, throat, eyes, ears, or skin ?? Rash or hives ?? Throwing up or stomach sickness ?? High heart rate or ???racing?? of your heart ?? Feeling dizzy or woozy ?? Feeling short of breath or like you can???t take a deep breath ?? Feeling very [...] your medical record. documented in this encounter Medications at Time of Discharge aspirin 81 MG chewable tablet Chew 1 tablet (81 mg) 1 (one) time each day. ergocalciferol (Vitamin D-2) 1.25 MG (32395 UT) capsule Take 1 capsule (50,000 Units) [...] [address] [place] [address] Penelope Carmona MD [address] [facility] [address] [place] [address] 08/05/2024 9:30 AM EST Appointment [facility] 1 [address] [place] [address] 02/26/2025 9:30 AM EDT Appointment [facility] [address] [facility] [address] [place] [address] 02/26/2025 10:30 AM EDT Office Visit [facility] Breast Care [place] [address] [facility], [address]nd [place] [address] Berenice Resendez, TRANSLATOR [address] [facility] [address] [facility] [address] [place] [address] documented as of this encounter Procedures Procedure Name Priority Date/Time Associated Diagnosis Comments CT ABDOMEN PELVIS W IV CONTRAST Routine 10/04/2021 1:01 PM EST Carcinoma of fallopian tube, unspecified [...] ABDOMEN PELVIS W IV CONTRAST ordered by LUDMILA PADGETT, [id number] CLINICAL INDICATION: Ovarian cancer, assess treatment response [...] Wall:No aggressive or suspicious findings. Procedure Note Amari Serna DO - 10/04/2021 Exam/Procedure: CT ABDOMEN PELVIS W IV CONTRAST ordered by LUDMILA PADGETT,[id number] CLINICAL INDICATION: Ovarian cancer, assess treatment response [...] by Amari Serna on 10/04/2021 1:35 PM [facility] CT PROCEDURES Final Result documented in this encounter Visit Diagnoses Diagnosis Carcinoma of fallopian tube, unspecified laterality (CMS/HCC) documented in this encounter Administered Medications Inactive Administered Medications - up to 3 most recent administrations Medication Order MAR Action Action Date Dose Rate Site heparin flush (porcine) 100 UNIT/ML injection 500 Units 500 Units, Intracatheter, Once as needed, Starting on Mon10/04/21 at 1220, Until Mon10/05/21 at 0019, Routine, Intraprocedure, line care Given by Other 10/04/2021 1:08 PM EST 500 Units iohexol (OMNIPaque) 300 MG/ML injection 100 mL 100 mL, Intravenous, Once in imaging, 1 dose, Starting on Mon10/04/21 at 1218, Until Mon10/04/21 at 1255, Routine, Imaging Protocol Orders Given 10/04/2021 12:55 PM EST 100 mL iohexol (OMNIPaque) 9 MG/ML oral contrast 500 mL 500 mL, Oral, Once in imaging, 1 dose, Starting on Mon10/04/21 at 1218, Until Mon10/04/21 at 1218, Routine, Imaging Protocol Orders Given 10/04/2021 12:18 PM EST 500 mL documented in this encounter Additional Health Concerns Assessment Noted Time A fall risk assessment has been complete d for the patient 09/15/2021 10:55 AM EST documented as of this encounter Care Teams Die Cut Operator Relationship Specialty Start Date End Date Leny Valdes DO [address] [place] [address] PCP - General 12/11/20 12/13/21 Aliyah Valencia MD [address] [place] [address] Referring Physician 03/10/21 documented as of this encounter
--- OUTSIDE RECORDS SUMMARY | 2024-07-10 12:02 | XMS_ITS | Encounter Summary ---
Author Organization [facility] Address [facility] [place] [id number] Care Team Providers Care Addiction Therapist Name Role Phone LucioNurafany Hilton DO Primary Care Provider [phone] Aliyah Valencia MD Unavailable [phone] Reason for Visit * Reason Comments Chemotherapy prechemo * Episode Based Medications (Routine) - Closed Specialty Diagnoses / Procedures Referred By Contac t Referred To Contact Diagnoses Carcinoma of fallopian tube, unspecified laterality (CMS/HCC) Penelope Carmona MD [address] [facility] [address] [address] Phone: tel: fax: [facility] Infusion Clinic [address] [place] [address] Phone: tel: Referral ID Status Reason Start Date Expiration Date Visits Re quested Visits Authorized [id number] Closed 06/30/2021 06/30/2022 1 21 Encounter Details Date Type Department Care Team (Late st Contact Info) Description 10/06/2021 10:45 AM EST Office Visit [facility] Gynecology [address] [address] [place] [address] Reuben [place] MD [address] [facility] [address] [facility] [address] [place] [address] Carcinoma of fallopian tube, unspecified [...] Sign Reading Time Taken Comments Blood Pressure 131/68 10/06/2021 11:00 AM EST Pulse 93 10/06/2021 11:00 AM EST Temperature 37 ??C (98.6 ??F) 10/06/2021 11:00 AM EST Respiratory Rate - - Oxygen Saturation - - Inhaled Oxygen Concentration - - Weight 85.8 kg (189 lb 2.5 oz) 10/06/2021 11:00 AM EST Height 161.3 cm (5' 3.5 ) 10/06/2021 11:00 AM ES T Body Mass Index 32.98 10/06/2021 11:00 AM EST documented in this encounter Miscellaneous Notes * Progress Notes - Reuben [place] MD - 10/06/2021 10:45 AM EST Primary Care Provider: Leny Valdes DO History of Present Illness: Chief complaint: 75 yo female here for clearance for and counseling for 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 Oncologic history [...] she underwent a left needle localized lumpectomy. [place] lymph node biopsy was not performed as [...] vagina). Initiated neoadjuvant chemo with carbo/Taxol per PUMP INSTALLATION AND SERVICER followed by BSO/Omentectomy and adjuvant Carbotaxol. Recurrence in March 2019. Treated with carbo initially followed by Olaparib. 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 She is currently off of therapy. She follows with Dr. Hutchins in [facility]. 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 Also with interval enlargement of a adrenal nodule on right - Planning Carbo alone to start 08/04/2021 Interval updates to history: Oncologic treatment history as described above reviewed today as well as PMH/PSH/Meds/All/SH/FH, with updates made as appropriate. Patient is here today for Carbo # 4 . Doing well. Reports the vaginal bleeding/watery discharge she was having previously has stopped. Reports constipation for 4-5 days after last treatment which improved with stool softener. Neuropathy improved with gabapentin - needs refill. Denies shortness of breath, pain, or N/V. Voiding normally. Eating well. Denied Evushield [...] years ago, no drugs, retired, lives in [place]. ?? FamHx:??Father-prostate, MGma-colon. ROS: 14 pt ROS performed with pertinent positives and negatives as noted in HPI. ROS otherwise negative Objective Physical Exam: Vital Signs for this encounter: BSA: 1.96 meters squared Visit Vitals BP 131/68 Pulse 93 Temp 37 ??C (98.6 ??F) Ht 1.613 m (5' 3.5 ) Wt 85.8 kg (189 lb 2.5 oz) LMP (LMP Unknown) BMI 32.98 kg/m?? OB Status Hysterectomy Smoking Status Former [...] Tenderness: There is no abdominal tenderness. Musculoskeletal: Right lower leg: Edema present. Left [...] Status: Asymptomatic PS= 0 Results: CBC WBC 3.49 Hgb 10.8 PLT 176 HCT 33.9 Lab Results Component Value Date NEUTROABS 2.16 10/06/2021 BASIC METABOLIC PANEL Na 140 Cl 106 BUN 17 Gluc 105 K 4.0 Co2 23 Creat 0.65 LIVER FUNCTION TESTING Tot Prot 6.3 AST 13 Tot bili 0.3 ALT 12 Alkphos 46 Ca 8.9 Mg 1.6 Phos No results found for [...] 2.2 cm. Already has been radiated. Still fond du lac sensitive (10-12 fond du lac free interval between finishing last chemo 07/2019 and recurrence at cuff -06/2021. Pre chemo labs drawn today. 10/04/2021 - CT with excellent response, vag mass 4 cm -> 2.4 cm ?? Proceed with cycle 4 carboplatin. Continue weekly hematologic monitoring. Recommend continuing stool softener. Problem 2: Cervical cancer?? 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 ??No signs of recurrence. ?? Problem [...] access, and documentation. 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 Will proceed with single agent carboplatin (last treated with fond du lac 08/26/19). 10/06/21: Ms. John was seen by Dr. [place] in clinic. Her 10/04/21 CT showed response (mass 4 cm --> 2.4 cm). She is doing well and ready to proceed with treatment. Magnesium to be replaced per protocol at infusion. Dosing Wt: 84.9 kg Today's Wt: Wt Readings from Last 1 Encounters: 10/06/21 86.2 kg (190 lb 0.6 oz) Dosing Ht: 160 cm DosingBSA: 1.88 m2 Recent Labs: Lab Results Component Value Date WBC 3.49 (L) 10/06/2021 HGB 10.8 (L) 10/06/2021 HCT 33.9 (L) 10/06/2021 MCV 102 (H) 10/06/2021 PLT 176 10/06/2021 Lab Results Component Value Date GLUCOSE 105 (H) 10/06/2021 CALCIUM 8.9 10/06/2021 NA 140 10/06/2021 K 4.0 10/06/2021 CO2 23 10/06/2021 CL 106 10/06/2021 BUN 17 10/06/2021 CREATININE 0.65 10/06/2021 Lab Results Component Value Date ALT 12 10/06/2021 AST 13 10/06/2021 ALKPHOS 46 10/06/2021 BILITOT 0.3 10/06/2021 Lab Results Component Value Date NEUTROABS 2.16 10/06/2021 Lab Results Component Value Date MG 1.6 (L) 10/06/2021 Vitals: Vitals: 10/06/21 1100 BP: 131/68 Pulse: 93 Temp: 37 ??C (98.6 ??F) Other Relevant Monitoring: For carboplatin: AdjBW (BMI >25): 65.4 kg SCr: 0.65 mg/dL (minimum 0.7 mg/dL utilized for calculation) eCrCl: 70.6 mL/min Treatment Plan: Carboplatin AUC 5 (478 mg) IV D1 Every 21 days [x] No dose adjustments made Current Treatment Plan History: Carboplatin #1: 08/04/21 - lifetime dose #2: 08/27/21 #3: 09/15/21 #4: 10/06/21 Prior Chemotherapy History: hormone therapy for prior [...] follow-up at that time. Pharmacist Attestation: Norma Galeana, Allison, BCOP Hematology/Oncology Clinical Pharmacist documented in this encounter Plan of Treatment Upcoming Encounters Date Type Department Care Team (Late st Contact Info) Description 08/05/2024 8:00 AM EST Office Visit [facility] Gynecology [address] [facility] [address] [place] [address] Penelope Carmona MD [address] [facility] [address] [facility] [address] [place] [address] 08/05/2024 9:30 AM EST Appointment [facility] [address] [place] [address] 02/26/2025 9:30 AM EDT Appointment [facility] [address] [facility] [address] [place] [address] 02/26/2025 10:30 AM EDT Office Visit [facility] Breast Care Center [address] [facility], [address]nd [place] [address] Berenice Resendez, STRATEGIC MARKETING ASSOCIATE [address] [facility] [address] [facility] [address] [place] [address] documented as of this encounter Procedures Procedure Name Priority Date/Time Associated Diagnosis Comments CBC WITH AUTO DIFFERENTIAL Routine 10/06/2021 11:15 AM EST Carcinoma of fallopian tube, unspecified laterality (CMS/HCC) CA 125 Routine 10/06/2021 11:15 AM EST Carcinoma of fallopian tube, unspecified laterality (CMS/HCC) MAGNESIUM, PLASMA STAT 10/06/2021 11: 15 AM EST Carcinoma of fallopian tube, unspecified laterality (CMS/HCC) COMPREHENSIVE METABOLIC PANEL, PLASMA Routine 10/06/2021 11:15 AM EST Carcinoma of fallopian tube, unspecified laterality (CMS/HCC) documented in this encounter Results * CA 125 (10/06/2021 11:15 AM EST) CA 125 7.04 <=38.00 U/mL 10/06/2021 12:45 PM EST [facility] Blood Blood sample taken from central line / Unknown Venipuncture / Unknown 10/06/2021 11:15 AM EST 10/06/2021 11:44 AM EST Reuben [place] MD LAB BLOOD ORDERABLES Final Result Performing Organization Address City/State/[facility] [[email or web address]] Co de Phone Number [facility] [address] [place] [address] * (ABNORMAL) Comprehensive metabolic panel (10/06/2021 11:15 AM EST) Glucose, Plasma 105(H) 74 - 99 mg/dL 10/06/2021 12:39 PM EST [facility] BUN, Plasma 17 8 - 23 mg/dL 10/06/2021 12:39 PM EST [facility] Creatinine, Plasma 0.65 0.60 - 1.10 mg/dL 10/06/2021 12:39 PM EST [facility] BUN/Creatinine Ratio 26 10/06/2021 12:39 PM EST [facility] Sodium, Plasma 140 136 - 145 mmol/L 10/06/2021 12:39 PM EST [facility] Potassium, Plasma 4.0 3.7 - 4.8 mmol/L 10/06/2021 12:39 PM EST [facility] Comment:Reference range for Serum potassium is 0.2 to 0.5 mmol/L higher than Plasma range. Chloride, Plasma 106 97 - 107 mmol/L 10/06/2021 12:39 PM EST [facility] CO2, Plasma 23 22 - 29 mmol/L 10/06/2021 12:39 PM EST [facility] Anion Gap 11 6 - 16 mmol/L 10/06/2021 12:39 PM EST [facility] Total Calcium, Plasma 8.9 8.9 - 10.2 mg/dL 10/06/2021 12:39 PM EST [facility] Total Protein 6.3 6.3 - 7.9 g/dL 10/06/2021 12:39 PM EST [facility] Albumin, Plasma 4.2 3.5 - 5.2 g/dL 10/06/2021 12:39 PM EST [facility] AST, Plasma 13 9 - 36 U/L 10/06/2021 12:39 PM EST [facility] ALT, Plasma 12 8 - 33 U/L 10/06/2021 12:39 PM EST [facility] Alkaline Phosphatase, Plasma 46 46 - 142 U/L 10/06/2021 12:39 PM EST [facility] Total Bilirubin, Plasma 0.3 0.2 - 1.1 mg/dL 10/06/2021 12:39 PM EST [facility] eGFR >60 >60 mL/min/1.7 3m*2 10/06/2021 12:39 PM EST [facility] Comment:eGFR = estimated GFR ; eGFR units = mL/min/1.73 sq meters Chronic Kidney Disease is considered if eGFR <60 mL/min/1.73 sq meters Kidney failure is considered if eGFR is <15 mL/min/1.73 sq meters. eGFR assumes steady state plasma creatinine concentration; not applicable if renal function is rapidly changing or patient is on dialysis. eGFR, if AFR/AM >60 >60 mL/min/1.7 3m*2 10/06/2021 12:39 PM EST [facility] Comment:eGFR = estimated GFR ; eGFR [...] central line / Unknown Venipuncture / Unknown 10/06/2021 11:15 AM EST 10/06/2021 11:44 AM EST Reuben [place] MD LAB BLOOD ORDERABLES Final Result [facility] [address] [place] [address] * (ABNORMAL) CBC and Differential (10/06/2021 11:15 AM EST) WBC Count 3.49(L) 3.70 - 10.30 10*3/uL LAB HEMATOLOGY METHOD 10/06/2021 11:37 AM EST [facility] RBC Count 3.33(L) 3.90 - 5.20 10*6/uL LAB HEMATOLOGY METHOD 10/06/2021 11:37 AM EST [facility] HGB 10.8(L) 11.2 - 15.7 g/dL LAB HEMATOLOGY METHOD 10/06/2021 11:37 AM EST [facility] HCT 33.9(L) 34.0 - 45.0 % LAB HEMATOLOGY METHOD 10/06/2021 11:37 AM EST [facility] Platelet Count 176 155 - 369 10*3/uL LAB HEMATOLOGY METHOD 10/06/2021 11:37 AM EST [facility] MCV 102(H) 79 - 98 fL LAB HEMATOLOGY METHOD 10/06/2021 11:37 AM EST [facility] MCH 32.4(H) 26.0 - 32.0 pg LAB HEMATOLOGY METHOD 10/06/2021 11:37 AM EST [facility] MCHC 31.9 30.7 - 35.5 g/dL LAB HEMATOLOGY METHOD 10/06/2021 11:37 AM EST [facility] RDW 18.1(H) 11.5 - 14.5 % LAB HEMATOLOGY METHOD 10/06/2021 11:37 AM EST [facility] MPV 9.0 8.8 - 12.5 fL LAB HEMATOLOGY METHOD 10/06/2021 11:37 AM EST [facility] nRBC 0.0 <=0.0 per 100 WBCs LAB HEMATOLOGY METHOD 10/06/2021 11:37 AM EST [facility] Differential Type Automated LAB HEMATOLOGY METHOD 10/06/2021 11:37 AM EST [facility] Neutrophils % 61.0 % LAB HEMATOLOGY METHOD 10/06/2021 11:37 AM EST [facility] Lymphocytes % 29.0 % LAB HEMATOLOGY METHOD 10/06/2021 11:37 AM EST [facility] Monocytes % 7.0 % LAB HEMATOLOGY METHOD 10/06/2021 11:37 AM EST [facility] Eosinophils % 1.0 % LAB HEMATOLOGY METHOD 10/06/2021 11:37 AM EST [facility] Basophils % 1.0 % LAB HEMATOLOGY METHOD 10/06/2021 11:37 AM EST [facility] Immature Granulocytes % 1.0 % LAB HEMATOLOGY METHOD 10/06/2021 11:37 AM EST [facility] Neutrophils Absolute 2.16 1.60 - 6.10 10*3/uL LAB HEMATOLOGY METHOD 10/06/2021 11:37 AM EST [facility] Lymphocytes Absolute 1.02(L) 1.20 - 3.90 10*3/uL LAB HEMATOLOGY METHOD 10/06/2021 11:37 AM EST [facility] Monocytes Absolute 0.25(L) 0.30 - 0.90 10*3/uL LAB HEMATOLOGY METHOD 10/06/2021 11:37 AM EST [facility] Eosinophils Absolute 0.02 0.00 - 0.50 10*3/uL LAB HEMATOLOGY METHOD 10/06/2021 11:37 AM EST [facility] Basophils Absolute 0.02 0.00 - 0.10 10*3/uL LAB HEMATOLOGY METHOD 10/06/2021 11:37 AM EST [facility] Immature Granulocytes Absolute 0.02 0.00 - 0.06 10*3/uL LAB HEMATOLOGY METHOD 10/06/2021 11:37 AM EST [facility] Blood Blood sample taken from central line / Unknown Venipuncture / Unknown 10/06/2021 11:15 AM EST 10/06/2021 11:35 AM EST us Reuben [place] MD LAB BLOOD ORDERABLES Final Result Performing Organization Address City/[facility] [[email or web address]] Co de Phone Number [facility] [address] [place] [address] * (ABNORMAL) Magnesium (10/06/2021 11:15 AM EST) Magnesium, Plasma 1.6(L) 1.9 - 2.4 mg/dL 10/06/2021 12:39 PM EST [facility] Blood Blood sample taken from central line / Unknown Venipuncture / Unknown 10/06/2021 11:15 AM EST 10/06/2021 11:44 AM EST us Reuben [place] MD LAB BLOOD ORDERABLES Final Result Performing Organization Address City/[facility] [[email or web address]] Co de Phone Number [facility] [address] [place] [address] documented in this encounter Visit Diagnoses Diagnosis Carcinoma of fallopian tube, unspecified laterality (CMS/HCC)- Primary documented in this encounter Additional Health Concerns Assessment Noted Time A fall risk assessment has been complete d for the patient 10/06/2021 11:05 AM EST documented as of this encounter Care Teams Addiction Therapist Relationship Specialty Start Date End Date Leny Valdes DO [address] [place] [address] PCP - General 12/11/20 12/13/21 Aliyah Valencia MD [address] [place] [address] Referring Physician 03/10/21 documented as of this encounter
--- OUTSIDE RECORDS SUMMARY | 2024-07-10 12:02 | XMS_ITS | Encounter Summary ---
Author Organization Healthcare Address [address] [place] [address] Care Team Providers Care Formula Technician Name Role Phone Leny Valdes Primary Care Provider Aliyah Valencia MD Unavailable Encounter Details Date Type Department Care Team (Latest Contact Info) Description 08/27/2021 Travel Social History Tobacco Use Types Packs/Day [...] EST Office Visit [facility]necology [address] [facility] [address] [place] [address] Penelope Carmona MD [address] [facility] [address] [place] [address] 08/05/2024 9:30 AM EST Appointment [facility] 1 [address] [place] [address] 02/26/2025 9:30 AM EDT Appointment [facility] [address] [place] [address] 02/26/2025 10:30 AM EDT Office Visit [facility] [address] [facility], [address] [place] [address] Berenice Resendez, TRIALS MANAGER [address] [facility] [address] [place] [address] documented as of this encounter Visit Diagnoses Not on filedocumented in this encounter Additional Health Concerns Assessment Noted Time A fall risk assessment has been complete d for the patient 08/27/2021 1:18 PM EST documented as of this encounter Care Teams Formula Technician Relationship Specialty Start Date End Date Lney Valdes DO [address] [place] [address] PCP - General 12/11/20 12/13/21 Aliyah Valencia MD [address] [place] [address] Referring Physician 03/10/21 documented as of this encounter
--- OUTSIDE RECORDS SUMMARY | 2024-07-10 12:02 | XMS_ITS | Encounter Summary ---
Author Organization [facility] Address [address] [place] [address] Care Team Providers Care Wire Lather Name Role Phone Leny Valdes Lida CAMERON Primary Care Provider [phone] Aliyah Valencia MD Unavailable Encounter Details Date Type Department Care Team (Late Contact Info) Description 11/17/2021 Orders Only [facility] [address] [place] [address] Penelope Carmona MD [address] [facility] [address] [place] [address] Carcinoma of fallopian tube, unspecified [...] [address] [place] [address] Penelope Carmona MD [address] [facility] [address] [place] [address] 08/05/2024 9:30 AM EST Appointment [facility] 1 [address] [place] [address] 02/26/2025 9:30 AM EDT Appointment [facility] [address] [facility] [address] [place] [address] 02/26/2025 10:30 AM EDT Office Visit [facility] [place] [address] [facility], 2nd [place] [address] Berenice Resendez, DIRECTOR OF PHYSICAL THERAPY 800 [facility] [address] [place] [address] documented as of this encounter Visit Diagnoses Diagnosis Carcinoma of fallopian tube, unspecified laterality (CMS/HCC)- Primary documented in this encounter Additional Health Concerns Assessment Noted Time A fall risk assessment has been complete d for the patient 11/17/2021 1:43 PM EDT documented as of this encounter Care Teams Wire Lather Relationship Specialty Start Date End Date Leny Valdes DO [address] [place] [address] PCP - General 12/11/20 12/13/21 Aliyah Valencia MD [address] [place] [place] [address] Referring Physician 03/10/21 documented as of this encounter
--- OUTSIDE RECORDS SUMMARY | 2024-07-10 12:02 | XMS_ITS | Encounter Summary ---
Author Organization Healthcare Address [address] [place] [address] Care Team Providers Care Gynaecological Oncologist Name Role Phone Leny Valdes Lida CAMERON Primary Care Provider [phone] Aliyah Valencia MD Unavailable [phone] Encounter Details Date Type Department Care Team (Latest Contact Info) Description 10/06/2021 Travel Social History Tobacco Use Types Packs/Day [...] [facility] [address] [place] [address] Penelope Carmona MD [address] [facility] [address] [place] [address] 08/05/2024 9:30 AM EST Appointment [facility] 1 [address] [place] [address] 02/26/2025 9:30 AM EDT Appointment [facility] [address] [place] [address] 02/26/2025 10:30 AM EDT Office Visit [facility] [address] [place] [address] Berenice Resendez, LAYDOWN MACHINE OPERATOR 800 [facility] [address] [place] [address] documented as of this encounter Visit Diagnoses Not on filedocumented in this encounter Additional Health Concerns Assessment Noted Time A fall risk assessment has been complete d for the patient 10/06/2021 11:05 AM EST documented as of this encounter Care Teams Gynaecological Oncologist Relationship Specialty Start Date End Date Leny Valdes DO [address] [place] [address] PCP - General 12/11/20 12/13/21 Aliyah Valencia MD [address] [place] [place] [address] Referring Physician 03/10/21 documented as of this encounter
--- OUTSIDE RECORDS SUMMARY | 2024-07-10 12:02 | XMS_ITS | Encounter Summary ---
Author Organization Healthcare Address [address] [place] [address] Care Team Providers Care Poultry Veterinarian Name Role Phone Leny Valdes Lida CAMERON Primary Care Provider [phone] Aliyah Valencia MD Unavailable Encounter Details Date Type Department Care Team (Latest Contact Info) Description 11/17/2021 Travel Social History Tobacco Use Types Packs/Day [...] Gynecology [address] [facility] [address] [place] [id number] Penelope Carmona MD [address] [facility] [address] [place] [address] 08/05/2024 9:30 AM EST Appointment [facility] 1 [address] [place] [address] 02/26/2025 9:30 AM EDT Appointment [facility] [address] [place] [address] 02/26/2025 10:30 AM EDT Office Visit [facility] [address] [facility], 2nd [place] [address] Berenice Resendez, DRAMA CRITIC [address] [facility] [address] [place] [address] documented as of this encounter Visit Diagnoses Not on filedocumented in this encounter Additional Health Concerns Assessment Noted Time A fall risk assessment has been complete d for the patient 11/17/2021 1:43 PM EDT documented as of this encounter Care Teams Poultry Veterinarian Relationship Specialty Start Date End Date Leny Valdes DO [address] [place] [address] PCP - General 12/11/20 12/13/21 Aliyah Valencia MD [address] [place] [place] [address] Referring Physician 03/10/21 documented as of this encounter
--- OUTSIDE RECORDS SUMMARY | 2024-07-10 12:02 | XMS_ITS | Encounter Summary ---
Author Organization [facility] Address [address] [place], [place] [address] Care Team Providers Care Advertising Strategist Name Role Phone LucioNuraмаринаfang Lida CAMERON Primary Care Provider [phone] Aliyah Valencia MD Unavailable [phone] Reason for Visit * Reason Comments Chemotherapy * Episode Based Medications (Routine) - Closed Specialty Diagnoses / Procedures Referred By Contac t Referred To Contact Diagnoses Carcinoma of fallopian tube, unspecified laterality (CMS/HCC) Penny Carmona MD 800 [facility] [address] [place] [address] [place] [address] Phone: tel: fax: [facility] Infusion Clinic 2 [address] [place] [address] Phone: tel: Referral ID Status Reason Start Date Expiration Date Visits Re quested Visits Authorized [id number] Closed 06/30/2021 06/30/2022 1 21 Encounter Details Date Type Department Care Team (Late st Contact Info) Description 08/27/2021 1:00 PM EST Office Visit [facility] Gynecology [address] [place] [address] Shy Valente, AGRICULTURAL REAL ESTATE AGENT, DNP [address] [place] [address] Carcinoma of fallopian tube, unspecified [...] Sign Reading Time Taken Comments Blood Pressure 134/78 08/27/2021 12:49 PM EST Pulse 93 08/27/2021 12:49 PM EST Temperature 36.1 ??C (97 ??F) 08/27/2021 12:49 PM EST Respiratory Rate - - Oxygen Saturation - - Inhaled Oxygen Concentration - - Weight 84.1 kg (185 lb 6.5 oz) 08/27/2021 12:49 PM EST Height 161.3 cm (5' 3.5 ) 08/27/2021 12:49 PM ES T Body Mass Index 32.33 08/27/2021 12:49 PM EST documented in this encounter Miscellaneous Notes * Progress Notes - Shy Valente, SENIOR CONSTRUCTION ESTIMATOR - 08/27/2021 1:00 PM EST Primary Care Provider: Leny Valdes DO History of Present Illness: Chief complaint: 75 yo female here for clearance for and counseling for 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 Oncologic history [...] she underwent a left needle localized lumpectomy. [place] lymph node biopsy was not performed as [...] vagina). Initiated neoadjuvant chemo with carbo/Taxol per SUPPLY COORDINATOR followed by BSO/Omentectomy and adjuvant Carbotaxol. Recurrence in March 2019. Treated with carbo initially followed by Olaparib. 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 She is currently off of therapy. She follows with Dr. Banerjee in [place] [place]. 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 Also with interval enlargement of a adrenal nodule on right - Planning Carbo alone to start 08/04/2021 Interval updates to history: Oncologic treatment history as described above reviewed today as well as PMH/PSH/Meds/All/SH/FH, with updates made as appropriate. Patient is here today for Carbo # 2 ([id number]). Doing well. Reports some vaginal bleeding/watery discharge. States bleeding had stopped up until 3 days ago but watery discharge has persisted. Reports constipation for 4- 5 days which improved with stool softener. Denies shortness of breath, pain, or N/V. Voiding normally. Eating well. Not eligible for evusheld due to recent covid exposure (had negative covid test on 08/25 on day 5 afterexposure). PMH:??h/o breast cancer x2, ?cervical cancer, h/o [...] years ago, no drugs, retired, lives in [place]. ?? FamHx:??Father-prostate, MGma-colon. ROS: 14 pt ROS performed with pertinent positives and negatives as noted in HPI. ROS otherwise negative Objective Physical Exam: Vital Signs for this encounter: BSA: 1.94 meters squared Visit Vitals BP 134/78 Pulse 93 Temp 36.1 ??C (97 ??F) Ht 1.613 m (5' 3.5 ) Wt 84.1 kg (185 lb 6.5 oz) BMI 32.33 kg/m?? OB Status Postmenopausal Smoking Status Former Smoker BSA 1.94 m?? [...] Status: Asymptomatic PS= 0 Results: CBC WBC 3.95 Hgb 11.5 PLT 180 HCT 36.5 Lab Results Component Value Date NEUTROABS 2.26 08/27/2021 BASIC METABOLIC PANEL Na 141 Cl 106 BUN 23 Gluc 112 K 4.3 Co2 24 Creat 0.62 LIVER FUNCTION TESTING Tot Prot 6.2 AST 14 Tot bili 0.2 ALT 10 Alkphos 46 Ca 9.0 Mg 1.8 Phos No results found for requested labs within last 8760 hours. === 06/30/21 === CT CHEST W IV CONTRAST - Narrative - Exam/Procedure: CT ABDOMEN PELVIS W IV CONTRAST, CT CHEST W IV CONTRAST ordered by PENNY BANERJEEBELFAIR, [id number] CLINICAL INDICATION: Ovarian cancer, surveillance TECHNIQUE: Multiple [...] 2.2 cm. Already has been radiated. Still eastern shoshone sensitive (10-12 eastern shoshone free interval between finishing last chemo 07/2019 and recurrence at cuff . ?? Proceed with cycle 2 carboplatin. Continue weekly hematologic monitoring. Recommend starting stool softener today and continue until she develops loose stools. Problem 2: Cervical cancer?? Assessment and plan 2: Distant history, shelter survivor. ??No signs of recurrence. ?? Problem [...] No current symptoms. Overdue for visit with cards. Advised patient to schedule follow up. Team based care includes nurse intake, review of prior documentation, history, physical exam, discussion of plan of care, appointment scheduling, lab orders, port access, chemo counseling and consent, order approval, and documentation. 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 Will proceed with single agent carboplatin (last treated with eastern shoshone 08/26/19). Dosing Wt: 84.9 kg Today's Wt: Wt Readings from Last 1 Encounters: 08/27/21 84.2 kg (185 lb 10 oz) Dosing Ht: 160 cm DosingBSA: 1.88 m2 Recent Labs: Lab Results Component Value Date WBC 3.95 08/27/2021 HGB 11.5 08/27/2021 HCT 36.5 08/27/2021 MCV 98 08/27/2021 PLT 180 08/27/2021 Lab Results Component Value Date GLUCOSE 112 (H) 08/27/2021 CALCIUM 9.0 08/27/2021 NA 139 08/27/2021 K 3.8 08/27/2021 CO2 23 08/27/2021 CL 104 08/27/2021 BUN 22 08/27/2021 CREATININE 0.62 08/27/2021 Lab Results Component Value Date ALT 10 08/27/2021 AST 13 08/27/2021 ALKPHOS 44 (L) 08/27/2021 BILITOT 0.3 08/27/2021 Lab Results Component Value Date NEUTROABS 2.26 08/27/2021 Lab Results Component Value Date MG 1.6 (L) 08/27/2021 Vitals: Vitals: 08/27/21 1249 BP: 134/78 Pulse: 93 Temp: 36.1 ??C (97 ??F) Other Relevant Monitoring: For carboplatin: AdjBW (BMI >25): 65.4 kg SCr: 0.62 mg/dL (minimum 0.7 mg/dL utilized for calculation) eCrCl: 72 mL/min Treatment Plan: Carboplatin AUC 5 (483.5 mg) IV D1 Every 21 days [x] No dose adjustments made Current Treatment Plan History: Carboplatin #1: 08/04/21 - 13 lifetime dose #2: 08/27/21 Prior Chemotherapy History: hormone therapy for prior [...] at that time. Pharmacist Attestation: Norma Galeana, aWrrenD, [facility] Hematology/Oncology Clinical Pharmacist documented in this encounter Plan of Treatment Upcoming Encounters Date Type Department Care Team (Late st Contact Info) Description 08/05/2024 8:00 AM EST Office Visit [facility] Gynecology [address] [place] [address] Penny Carmona MD [address] [facility] [address] [place] [address] 08/05/2024 9:30 AM EST Appointment [facility] Infusion Clinic 1 [address] [place] [address] 02/26/2025 9:30 AM EDT Appointment [facility] Breast Care Center Comprehensive Breast Care Center [facility] [address] [facility] [address] [place] [address] 02/26/2025 10:30 AM EDT Office Visit [facility] Breast Care Center [address] [facility], 2nd [place] [address] Berenice Resendez, AGRICULTURAL REAL ESTATE AGENT [address] [facility] [address] [facility] [address] [place] [address] documented as of this encounter Procedures Procedure Name Priority Date/Time Associated Diagnosis Comments CBC WITH AUTO DIFFERENTIAL Routine 08/27/2021 1:09 PM EST Carcinoma of fallopian tube, unspecified laterality (CMS/HCC) MAGNESIUM, PLASMA STAT 08/27/2021 1:0 9 PM EST Carcinoma of fallopian tube, unspecified laterality (CMS/HCC) COMPREHENSIVE METABOLIC PANEL, PLASMA Routine 08/27/2021 1:09 PM EST Carcinoma of fallopian tube, unspecified laterality (CMS/HCC) documented in this encounter Results * (ABNORMAL) CBC and differential (08/27/2021 1:09 PM EST) WBC Count 2.08(L) 3.70 - 10.30 10*3/uL LAB HEMATOLOGY METHOD 08/27/2021 1:[address] [facility] RBC Count 2.02(L) 3.90 - 5.20 10*6/uL LAB HEMATOLOGY METHOD 08/27/2021 1:52 PM [facility] HGB 6.5(L) 11.2 - 15.7 g/dL LAB HEMATOLOGY METHOD 08/27/2021 1:52 PM [facility] HCT 20.2(L) 34.0 - 45.0 % LAB HEMATOLOGY METHOD 08/27/2021 1:52 PM [facility] Platelet Count 100(L) 155 - 369 10*3/uL LAB HEMATOLOGY METHOD 08/27/2021 1:52 PM [facility] MCV 100(H) 79 - 98 fL LAB HEMATOLOGY METHOD 08/27/2021 1:52 PM [facility] MCH 32.2(H) 26.0 - 32.0 pg LAB HEMATOLOGY METHOD 08/27/2021 1:52 PM [facility] MCHC 32.2 30.7 - 35.5 g/dL LAB HEMATOLOGY METHOD 08/27/2021 1:52 PM [facility] RDW 14.3 11.5 - 14.5 % LAB HEMATOLOGY METHOD 08/27/2021 1:52 PM [facility] MPV 9.4 8.8 - 12.5 fL LAB HEMATOLOGY METHOD 08/27/2021 1:52 PM [facility] nRBC 0.0 <=0.0 per 100 WBCs LAB HEMATOLOGY METHOD 08/27/2021 1:52 PM [facility] Differential Type Automated LAB HEMATOLOGY METHOD 08/27/2021 1:52 PM [facility] Neutrophils % 58.0 % LAB HEMATOLOGY METHOD 08/27/2021 1:52 PM [facility] Lymphocytes % 32.0 % LAB HEMATOLOGY METHOD 08/27/2021 1:52 PM [facility] Monocytes % 6.0 % LAB HEMATOLOGY METHOD 08/27/2021 1:52 PM [facility] Eosinophils % 2.0 % LAB HEMATOLOGY METHOD 08/27/2021 1:52 PM [facility] Basophils % 1.0 % LAB HEMATOLOGY METHOD 08/27/2021 1:52 PM [facility] Immature Granulocytes % 1.0 % LAB HEMATOLOGY METHOD 08/27/2021 1:52 PM [facility] Neutrophils Absolute 1.22(L) 1.60 - 6.10 10*3/uL LAB HEMATOLOGY METHOD 08/27/2021 1:52 PM [facility] Lymphocytes Absolute 0.67(L) 1.20 - 3.90 10*3/uL LAB HEMATOLOGY METHOD 08/27/2021 1:[address] [facility] Monocytes Absolute 0.12(L) 0.30 - 0.90 10*3/uL LAB HEMATOLOGY METHOD 08/27/2021 1:[address] [facility] Eosinophils Absolute 0.05 0.00 - 0.50 10*3/uL LAB HEMATOLOGY METHOD 08/27/2021 1:[address] [facility] Basophils Absolute 0.01 0.00 - 0.10 10*3/uL LAB HEMATOLOGY METHOD 08/27/2021 1:[address] [facility] Immature Granulocytes Absolute 0.01 0.00 - 0.06 10*3/uL LAB HEMATOLOGY METHOD 08/27/2021 1:[address] [facility] Blood Blood sample taken from central line / Unknown Venipuncture / Unknown 08/27/2021 1:09 PM EST 08/27/2021 1:[address] [facility] - 08/27/2021 1:52 PM EST Therapeutic decision making should be based on absolute values, rather than percentages. us Penny Dodson MD LAB BLOOD ORDERABLES Final Result [facility] [address] [place], [place] [id number] * (ABNORMAL) Comprehensive metabolic panel (08/27/2021 1:09 PM EST) Glucose, Plasma 112(H) 74 - 99 mg/dL 08/27/2021 2:[address] [facility] BUN, Plasma 22 8 - 23 mg/dL 08/27/2021 2:[address] [facility] Creatinine, Plasma 0.62 0.60 - 1.10 mg/dL 08/27/2021 2:[address] [facility] BUN/Creatinine Ratio 35 08/27/2021 2:[address] [facility] Sodium, Plasma 139 136 - 145 mmol/L 08/27/2021 2:[address] [facility] Potassium, Plasma 3.8 3.7 - 4.8 mmol/L 08/27/2021 2:[address] [facility] Chloride, Plasma 104 97 - 107 mmol/L 08/27/2021 2:16 PM [facility] CO2, Plasma 23 22 - 29 mmol/L 08/27/2021 2:16 PM [facility] Anion Gap 12 6 - 16 mmol/L 08/27/2021 2:16 PM [facility] Total Calcium, Plasma 9.0 8.9 - 10.2 mg/dL 08/27/2021 2:16 PM [facility] Total Protein 6.7 6.3 - 7.9 g/dL 08/27/2021 2:16 PM [facility] Albumin, Plasma 4.0 3.5 - 5.2 g/dL 08/27/2021 2:16 PM [facility] AST, Plasma 13 9 - 36 U/L 08/27/2021 2:16 PM [facility] ALT, Plasma 10 8 - 33 U/L 08/27/2021 2:16 PM [facility] Alkaline Phosphatase, Plasma 44(L) 46 - 142 U/L 08/27/2021 2:16 PM [facility] Total Bilirubin, Plasma 0.3 0.2 - 1.1 mg/dL 08/27/2021 2:16 PM [facility] eGFR >60 >60 mL/min/1.7 3m*2 08/27/2021 2:16 PM [facility] Comment:eGFR = estimated GFR ; eGFR units = mL/min/1.73 sq meters Chronic Kidney Disease is considered if eGFR <60 mL/min/1.73 sq meters Kidney failure is considered if eGFR is <15 mL/min/1.73 sq meters. eGFR assumes steady state plasma creatinine concentration; not applicable if renal function is rapidly changing or patient is on dialysis. eGFR, if AFR/AM >60 >60 mL/min/1.7 3m*2 08/27/2021 2:16 PM [facility] Comment:eGFR = estimated GFR [...] central line / Unknown Venipuncture / Unknown 08/27/2021 1:09 PM EST 08/27/2021 1:45 PM EST us Penny Dodson MD LAB BLOOD ORDERABLES Final Result Performing Organization Address City/[facility]/ZIP Co de Phone Number [facility]ALTHCARE LAB [address] [place] [address] * (ABNORMAL) Magnesium (08/27/2021 1:09 PM EST) Magnesium, Plasma 1.6(L) 1.9 - 2.4 mg/dL 08/27/2021 2:[address] [facility] Blood Blood sample taken from central line / Unknown Venipuncture / Unknown 08/27/2021 1:09 PM EST 08/27/2021 1:45 PM EST Penny Dodson MD LAB BLOOD ORDERABLES Final Result Performing Organization Address [facility] Co de Phone Number [facility]ALTH[facility]ARE [facility] [address] [place] [address] documented in this encounter Visit Diagnoses Diagnosis Carcinoma of fallopian tube, unspecified laterality (CMS/HCC)- Primary documented in this encounter Additional Health Concerns Assessment Noted Time A fall risk assessment has been complete d for the patient 08/27/2021 1:18 PM EST documented as of this encounter Care Teams Advertising Strategist Relationship Specialty Start Date End Date Lney Valdes DO [address] [place] [address] PCP - General 12/11/20 12/13/21 Aliyah Valencia MD [address] [place] [address] Referring Physician 03/10/21 documented as of this encounter
--- OUTSIDE RECORDS SUMMARY | 2024-07-10 12:02 | XMS_ITS | Encounter Summary ---
Author Organization [facility] Address [address] [place] [address] Care Team Providers Care Soil Fertility Specialist Name Role Phone LucioNuraмаринаfang Lida CAMERON Primary Care Provider [phone] Aliyah Valencia MD Unavailable [phone] Reason for Visit * Episode Based Medications (Routine) - Closed Specialty Diagnoses / Procedures Referred By Contac t Referred To Contact Diagnoses Carcinoma of fallopian tube, unspecified laterality (CMS/HCC) Penelope Carmona MD [address] [place] [address] [address] Phone: tel: fax: [facility] Infusion Clinic [address] [place] [address] Phone: tel: Referral ID Status Reason Start Date Expiration Date Visits Re quested Visits Authorized [id number] Closed 06/30/2021 06/30/2022 1 21 Encounter Details Date Type Department Care Team (Latest Contact Info) Description 10/27/2021 11:30 AM EDT - 10/27/2021 11:59 PM EDT Hospital Encounter [facility] [address] [place] [address] Carcinoma of fallopian tube, unspecified [...] Sign Reading Time Taken Comments Blood Pressure 126/75 10/27/2021 11:55 AM EDT Pulse 93 10/27/2021 11:55 AM EDT Temperature 36.8 ??C (98.3 ??F) 10/27/2021 11:55 AM E DT Respiratory Rate 18 10/27/2021 11:55 AM EDT Oxygen Saturation 97% 10/27/2021 11:55 AM EDT Inhaled Oxygen Concentration - - Weight 86.2 kg (190 lb 0.6 oz) 10/27/2021 11:55 AM EDT Height 161.3 cm (5' 3.5 ) 10/27/2021 11:55 AM ED T Body Mass Index 33.14 10/27/2021 11:55 AM EDT documented in this encounter Medications at Time of Discharge aspirin 81 MG chewable tablet Chew 1 tablet (81 mg) 1 (one) time each day. ergocalciferol (Vitamin D-2) 1.25 MG (63665 UT) capsule Take 1 capsule (50,000 Units) [...] Description 08/05/2024 8:00 AM EST Office Visit [facility] Gynecology [address] [place] [address] Penelope Carmona MD [address] [place] [address] 08/05/2024 9:30 AM EST Appointment [facility] 1 [address] [place] [address] 02/26/2025 9:30 AM EDT Appointment [facility] Breast Care Center Comprehensive Breast Care Center [facility] [address] [place] [address] 02/26/2025 10:30 AM EDT Office Visit [facility] Breast Care Center [address] [facility], 2nd [place] [address] Berenice Resendez, THROUGH OPERATOR [address] [facility] [address] [place] [address] documented as of this encounter [...] Waste Container. Chemotherapy: refer to [id number]., On Mon10/27/21 at 1315, For 1 dose, NS 250 mLIndications:Carcinoma of fallopian tube, unspecified laterality (CMS/HCC) New Bag 10/27/2021 12:57 PM EDT 478 mg 685.6 mL/hr dexamethasone (Decadron) tablet 12 mg 12 mg, Oral, Once, 1 dose, On Mon10/27/21 at 1245, RoutineIndications:Carcinoma of fallopian tube, unspecified laterality (CMS/HCC) Given 10/27/2021 12:26 PM EDT 12 mg magnesium oxide (Mag-Ox) tablet 400 mg 400 mg, Oral, Once as needed, 1 dose, Starting on Mon10/27/21 at 1222, Until Mon10/27/21 at 1226, Routine, For magnesium value 1.5 to 1.8 and patient having LESS THAN or EQUAL to 3 loose stools per dayIndications:Neuropathy Given 10/27/2021 12:26 PM EDT 400 mg ondansetron ODT (Zofran-ODT) disintegrating tablet 16 mg 16 mg, Oral, Once, 1 dose, On Mon10/27/21 at 1245, RoutineIndications:Carcinoma of fallopian tube, unspecified laterality (CMS/HCC) Given 10/27/2021 12:27 PM EDT 16 mg documented in this encounter Additional Health Concerns Assessment Noted Time A fall risk assessment has been complete d for the patient 10/27/2021 11:53 AM EDT documented as of this encounter Care Teams Soil Fertility Specialist Relationship Specialty Start Date End Date Leny Valdes DO [address] [place], [place] [id number] PCP - General 12/11/20 12/13/21 Aliyah Valencia MD [address] [place] [place] [address] Referring Physician 03/10/21 documented as of this encounter
--- OUTSIDE RECORDS SUMMARY | 2024-07-10 12:02 | XMS_ITS | Encounter Summary ---
Author Organization [facility] Address [address] [place] [address] Care Team Providers Care Air Plant Engineer Name Role Phone LucioNuraмаринаfang Lida CAMERON Primary Care Provider [phone] Aliyah Valencia MD Unavailable Reason for Visit * Episode Based Medications (Routine) - Closed Specialty Diagnoses / Procedures Referred By Contac t Referred To Contact Diagnoses Carcinoma of fallopian tube, unspecified laterality (CMS/HCC) Penelope Carmona MD [address] [place] [address] [address] Phone: tel: fax: [facility] [address] [place] [address] Phone: tel: Referral ID Status Reason Start Date Expiration Date Visits Re quested Visits Authorized [id number] Closed 06/30/2021 06/30/2022 1 21 Encounter Details Date Type Department Care Team (Latest Contact Info) Description 10/06/2021 11:45 AM EST - 10/06/2021 11:59 PM EST Hospital Encounter [facility] [address] [place] [address] Carcinoma of fallopian tube, unspecified [...] Sign Reading Time Taken Comments Blood Pressure 124/84 10/06/2021 12:23 PM EST Pulse 85 10/06/2021 12:23 PM EST Temperature 36.9 ??C (98.4 ??F) 10/06/2021 12:[address] Respiratory Rate 18 10/06/2021 12:23 PM EST Oxygen Saturation 97% 10/06/2021 12:23 PM EST Inhaled Oxygen Concentration - - Weight 86.2 kg (190 lb 0.6 oz) 10/06/2021 12:23 PM EST Height 161.3 cm (5' 3.5 ) 10/06/2021 12:23 PM ES T Body Mass Index 33.14 10/06/2021 12:23 PM EST documented in this encounter Medications at Time of Discharge aspirin 81 MG chewable tablet Chew 1 tablet (81 mg) 1 (one) time each day. ergocalciferol (Vitamin D-2) 1.25 MG (23310 UT) capsule Take 1 capsule (50,000 Units) [...] EST Office Visit [facility] Gynecology [address] [facility] [address] [place] [address] Penelope Carmona MD [address] [facility] [address] [place] [address] 08/05/2024 9:30 AM EST Appointment [facility] [address] [place] [address] 02/26/2025 9:30 AM EDT [facility]ointment [facility] [address] [place] [address] 02/26/2025 10:30 AM EDT Office Visit [facility] [address] [facility], 2nd [place] [address] Berenice Resendez, ENGINE TURNER [address] [facility] [address] [facility] [address] [place] [address] documented as of this encounter [...] Waste Container. Chemotherapy: refer to [id number]., On Mon10/06/21 at 1345, For 1 dose, NS 250 mLIndications:Carcinoma of fallopian tube, unspecified laterality (CMS/HCC) New Bag 10/06/2021 1:32 PM EST 478 mg 685.6 mL/hr dexamethasone (Decadron) tablet 12 mg 12 mg, Oral, Once, 1 dose, On Mon10/06/21 at 1315, RoutineIndications:Carcinoma of fallopian tube, unspecified laterality (CMS/HCC) Given 10/06/2021 12:53 PM EST 12 mg magnesium oxide (Mag-Ox) tablet 400 mg 400 mg, Oral, Once as needed, 1 dose, Starting on Mon10/06/21 at 1248, Until Mon10/06/21 at 1253, Routine, For magnesium value 1.5 to 1.8 and patient having LESS THAN or EQUAL to 3 loose stools per dayIndications:Neuropathy Given 10/06/2021 12:53 PM EST 400 mg ondansetron ODT (Zofran-ODT) disintegrating tablet 16 mg 16 mg, Oral, Once, 1 dose, On Mon10/06/21 at 1315, RoutineIndications:Carcinoma of fallopian tube, unspecified laterality (CMS/HCC) Given 10/06/2021 12:53 PM EST 16 mg documented in this encounter Additional Health Concerns Assessment Noted Time A fall risk assessment has been complete d for the patient 10/06/2021 11:05 AM EST documented as of this encounter Care Teams Air Plant Engineer Relationship Specialty Start Date End Date Leny Valdes DO [address] [place] [address] PCP - General 12/11/20 12/13/21 Aliyah Valencia MD [address] [place] [place] [address] Referring Physician 03/10/21 documented as of this encounter
--- OUTSIDE RECORDS SUMMARY | 2024-07-10 12:02 | XMS_ITS | Encounter Summary ---
Author Organization [facility] Address [address] [place], [place] [address] Care Team Providers Care Measuring Clerk Name Role Phone ValdesNuraмаринаfang Lida CAMERON Primary Care Provider [phone] Aliyah Valencia MD Unavailable [phone] Reason for Visit * Reason Comments Chemotherapy * Episode Based Medications (Routine) - Closed Specialty Diagnoses / Procedures Referred By Contac t Referred To Contact Diagnoses Carcinoma of fallopian tube, unspecified laterality (CMS/HCC) Penelope Carmona MD [address] [facility] [address]ai [address] [address] Phone: tel: fax: [facility] Infusion Clinic [address] [place] [address] Phone: tel: Referral ID Status Reason Start Date Expiration Date Visits Re quested Visits Authorized [id number] Closed 06/30/2021 06/30/2022 1 21 Encounter Details Date Type Department Care Team (Late st Contact Info) Description 11/17/2021 1:15 PM EDT Office Visit [facility] Gynecology [address] [address] [place] [address] Penelope Carmona MD [address] [facility] [address] [address] Carcinoma of fallopian tube, unspecified [...] Sign Reading Time Taken Comments Blood Pressure 134/68 11/17/2021 1:35 PM EDT Pulse 89 11/17/2021 1:35 PM EDT Temperature 37.3 ??C (99.1 ??F) 11/17/2021 1:35 PM ED T Respiratory Rate - - Oxygen Saturation - - Inhaled Oxygen Concentration - - Weight 86.9 kg (191 lb 9.3 oz) 11/17/2021 1:35 P M EDT Height - - Body Mass Index 33.4 10/27/2021 11:55 AM EDT documented in this encounter Miscellaneous Notes * Progress Notes - Penelope Carmona MD - 11/17/2021 1:15 PM EDT Primary Care Provider: Leny Valdes DO History of Present Illness: Chief complaint: 76 yo female here for clearance for and administration of cycle 6 of Carboplatin for recurrent fallopian tube cancer. Oncologic history [...] were negative for metastatic disease. ER and OR were strongly positive and HER-2 was negative. [...] ER positive in 90% of the cells, OR positive in 95% of cells andHER-2 negative by IHC at 0. On 10/04/2016 she underwent a left needle localized lumpectomy. [place] lymph node biopsy was not performed as [...] vagina). Initiated neoadjuvant chemo with carbo/Taxol per REVIEW RN followed by BSO/Omentectomy and adjuvant Carbotaxol. Recurrence in March 2019. Treated with carbo initially followed by Olaparib. 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 She is currently off of therapy. 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 Also with interval enlargement of a adrenal nodule on right 08/04/2021 - Chemotherapy - Started single agent Carbo 08/04/2021 - CT 10/04/2021 showed response to therapy (mass at vaginal cuff 2.5 cm from 4 cm) - Ca125: 8.24-6.87-7.04-7.08 Interval updates to history: Oncologic treatment history as described above reviewed today as well as PMH/PSH/Meds/All/SH/FH, with updates made as appropriate. Patient is here today for cycle 6 of Carbo. Doing well. She does report that it is harder to bounce back between cycles than it used to be.She has significant fatigue that lasts until the last week. Her appetite has been preserved and shedenies N/V. Denies stomatitis. Her feet and hands stay numb but Gabapentin has helped a lot with discomfort. No other acute complaints today. PMH:??h/o breast cancer x2, ?cervical cancer, h/o [...] years ago, no drugs, retired, lives in [place]. ?? FamHx:??Father-prostate, MGma-colon. ROS: 14 pt ROS performed with pertinent positives and negatives as noted in HPI. ROS otherwise negative Objective Physical Exam: Vital Signs for this encounter: BSA: 1.97 meters squared Visit Vitals BP 134/68 Pulse 89 Temp 37.3 ??C (99.1 ??F) (Oral) Wt 86.9 kg (191 lb 9.3 oz) LMP 11/17/1981 (Approximate) BMI 33.40 kg/m?? OB Status Hysterectomy Smoking Status Former Smoker BSA 1.97 m?? Physical Exam Vitals and nursing note reviewed. Constitutional: Appearance: Normal appearance. She is well-developed. She is obese. HENT: Head: Normocephalic and atraumatic. Mouth/Throat: Mouth: Mucous membranes are moist. Eyes: Conjunctiva/sclera: Conjunctivae normal. Cardiovascular: Rate and Rhythm: Normal rate. Pulmonary: Effort: Pulmonary effort is normal. Breath [...] content normal. Judgment: Judgment normal. Performance Status: Symptomatic; fully ambulatory PS= 1 Results: CBC WBC 4.13 Hgb 10.4 PLT [...] requested labs within last 8760 hours. === 10/04/21 === CT ABDOMEN PELVIS W IV CONTRAST - Narrative - Exam/Procedure: CT ABDOMEN PELVIS W IV CONTRAST ordered by XIOMY CARPENTER, [id number] CLINICAL INDICATION: Ovarian cancer, assess treatment response [...] and Body Wall:No aggressive or suspicious findings. - Impression - Decreased size of vaginal cuff peripherally enhancing/rim enhancing mass now 2.4 cm versus 4 cm on prior. No new metastatic disease with stable appearance of right adrenal nodule from prior. No acutepathology otherwise CRITICAL RESULT: No. COMMUNICATION: Per this written report. Dictated by Amari Serna on 10/04/2021 1:19 PM Signed by Amari Serna on 10/04/2021 1:35 PM Assessment/Plan Problem 1: Recurrent serous fallopian tube cancer (right) Assessment and plan 1: - s/p chemo/debulking at initial diagnosis - Has had additional chemo for recurrence followed by radiation for additional recurrence - [place] sensitive recurrence diagnosed 06/2021. - Has been on single agent Carbo with good response by CT as 09/2021. - Plan cycle 6 and then additional imaging evaluation Problem 2: Encounter for chemotherapy Assessment and plan 2: Proceed with cycle 6 of Carbo AUC 5. Plan q 21 cycles with total planned 6 cycles. No dose limiting toxicities identified. Pre chemo labs reviewed. Continue intensive weekly hematologic monitoring (CBC with diff, CMP). Also continue cyclic Ca125 tumor marker monitoring. Reviewed side effects to monitor for. Problem 3: Cervical cancer?? Assessment and plan 3: - Distant history, [...] not use Taxol again. ?? - Continue Gabapentin Problem 6: h/o syncope episodes and carotid stenosis Assessment and plan 6: - No current symptoms. - Follow up with cards as diected Team based care includes nurse intake, review of prior documentation, history, physical exam, discussion of plan of care, appointment scheduling, lab orders, port access, imaging orders, and documentation. Encounter time 40 min Penelope Dodson MD [facility] GYNEC[facility] [address] [place] [address] [facility] [address] Dept: [phone] Dept Loc: [phone] * Progress Notes - Sergio Lawrence, WarrenD - 11/17/2021 1:15 PM EDT Pharmacy Hematology/Oncology Treatment Plan [...] from 05/28/2001: pT1c, pN0, cM0, G2, ER+, OR+, HER2: Unknown - Signed by Cara Greene MD on 06/19/2021 - Pathologic stage from 10/05/2016: Stage Unknown (rpT1c, pNX, cM0, G2, ER+, OR+, HER2-) - Signed by Cara Greene MD on 06/19/2021 Study Patient: No Treatment Protocol: CARBOplatin Every 21 Days Treatment Plan reviewed for: [x] Follow-Up Clinical Review for Cycle 6 [] Follow-Up Clinical Review for Continuous Oral Therapy Interval History: Patient has h/o HER2 negative breast cancer currently on anastrozole (will complete 5 years December 2021) and Prolia every 6 months, possible cervical cancer, and 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 Will proceed with single agent carboplatin (last treated with chitina 08/26/19). 10/06/21: Ms. John was seen by Dr. Perry in clinic. Her 10/04/21 CT showed response (mass 4 cm --> 2.4 cm). She is doing well and ready to proceed with treatment. Magnesium to be replaced per protocol at infusion. 10/27/21. Patient reports worsening fatigue but otherwise no new complaints. Magnesium to be replaced per protocol in infusion. 11/17/21: Patient will receive cycle 6 single agent carboplatin today. This will be the last plannedcycle. She will follow up with imaging and Ca125 monitoring. Dosing Wt: 84.9 kg Today's Wt: Wt Readings from Last 1 Encounters: 11/17/21 86.9 kg (191 lb 9.3 oz) Dosing Ht: 160 cm DosingBSA: 1.88 m2 Outside labs from 11/09/21 reviewed: WBC 4.1 Hgb 10.9 Plt 213 ANC 2800 T bili 0.5 AST/ALT SCr 0.6 Recent Labs: Lab Results Component Value Date [...] Date MG 1.6 (L) 10/27/2021 Vitals: Vitals: 11/17/21 1335 BP: 134/68 Pulse: 89 Temp: 37.3 ??C (99.1 ??F) Other Relevant Monitoring: For carboplatin: AdjBW (BMI >25): 66.9 kg SCr: 0.7 mg/dL (minimum 0.7 mg/dL utilized for calculation) eCrCl: 72.2 mL/min Treatment Plan: Carboplatin AUC 5 (478 mg) IV D1 Every 21 days [x] No dose adjustments made Current Treatment Plan History: Carboplatin #1: 08/04/21 - 13th lifetime dose #2: 08/27/21 #3: 09/15/21 #4: 10/06/21 #5: 10/27/21 - 17th lifetime dose carboplatin #6: 11/17/21 Prior Chemotherapy History: hormone therapy for prior [...] chemotherapy. Patient will return to clinic in [address] Hutchins to review imaging. Will follow-up at thattime. Pharmacist Attestation: Sergio Lawrence PharmD Hematology/Oncology Clinical Pharmacist documented in this encounter Plan of Treatment Upcoming Encounters Date Type Department Care Team (Late st Contact Info) Description 08/05/2024 8:00 AM EST Office Visit [facility] [address] [facility] [address] [place] [address] Penelope Carmona MD [address] [facility] [address] [facility] [address] [place] [address] 08/05/2024 9:30 AM EST Appointment [facility] Infusion Clinic [address] [place] [address] 02/26/2025 9:30 AM EDT Appointment [facility] Breast Care Center Comprehensive Breast Care Center [facility] [address] [facility] [address] [place] [address] 02/26/2025 10:30 AM EDT Office Visit [facility] Breast Care [place] [address] [facility], 2nd [place] [address] Berenice Resendez, TIPPING MACHINE OPERATOR [address] [facility] [address] [facility] [address] [place] [address] documented as of this encounter Procedures Procedure Name Priority Date/Time Associated Diagnosis Comments CBC WITH AUTO DIFFERENTIAL Routine 11/17/2021 1:54 PM EDT Carcinoma of fallopian tube, unspecified laterality (CMS/HCC) CA 125 Routine 11/17/2021 1:54 PM EDT Carcinoma of fallopian tube, unspecified laterality (CMS/HCC) MAGNESIUM, PLASMA STAT 11/17/2021 1:5 4 PM EDT Carcinoma of fallopian tube, unspecified laterality (CMS/HCC) COMPREHENSIVE METABOLIC PANEL, PLASMA Routine 11/17/2021 1:54 PM EDT Carcinoma of fallopian tube, unspecified laterality (CMS/HCC) documented in this encounter Results * CA 125 (11/17/2021 1:54 PM EDT) CA 125 6.34 <=38.00 U/mL 11/17/2021 3:11 PM EDT [facility] Blood Blood sample taken from central line / Unknown (Port) Long-term Catheter / Unknown 11/17/2021 1:54 PM EDT 11/17/2021 2:34 PM EDT us Penelope Dodson MD LAB BLOOD ORDERABLES Final Result Performing Organization Address City/State/[facility] Co de Phone Number [facility] [address] [place] [address] * (ABNORMAL) Comprehensive metabolic panel (11/17/2021 1:54 PM EDT) Glucose, Plasma 70(L) 74 - 99 mg/dL 11/17/2021 3:12 PM EDT [facility] BUN, Plasma 18 8 - 23 mg/dL 11/17/2021 3:12 PM EDT [facility] Creatinine, Plasma 0.61 0.60 - 1.10 mg/dL 11/17/2021 3:12 PM EDT [facility] BUN/Creatinine Ratio 30 11/17/2021 3:12 PM EDT [facility] Sodium, Plasma 142 136 - 145 mmol/L 11/17/2021 3:12 PM EDT [facility] Potassium, Plasma 3.7 3.7 - 4.8 mmol/L 11/17/2021 3:12 PM EDT [facility] Comment:Reference range for Serum potassium is 0.2 to 0.5 mmol/L higher than Plasma range. Chloride, Plasma 107 97 - 107 mmol/L 11/17/2021 3:12 PM EDT [facility] CO2, Plasma 24 22 - 29 mmol/L 11/17/2021 3:12 PM EDT [facility] Anion Gap 11 6 - 16 mmol/L 11/17/2021 3:12 PM EDT [facility] Total Calcium, Plasma 9.0 8.9 - 10.2 mg/dL 11/17/2021 3:12 PM EDT [facility] Total Protein 6.0(L) 6.3 - 7.9 g/dL 11/17/2021 3:12 PM EDT [facility] Albumin, Plasma 4.1 3.5 - 5.2 g/dL 11/17/2021 3:12 PM EDT [facility] AST, Plasma 15 9 - 36 U/L 11/17/2021 3:12 PM EDT [facility] ALT, Plasma 13 8 - 33 U/L 11/17/2021 3:12 PM EDT [facility] Alkaline Phosphatase, Plasma 44(L) 46 - 142 U/L 11/17/2021 3:12 PM EDT [facility] Total Bilirubin, Plasma 0.2 0.2 - 1.1 mg/dL 11/17/2021 3:12 PM EDT [facility] eGFR >60 >60 mL/min/1.7 3m*2 11/17/2021 3:12 PM EDT [facility] Comment:eGFR = estimated GFR ; eGFR units = mL/min/1.73 sq meters Chronic Kidney Disease is considered if eGFR <60 mL/min/1.73 sq meters Kidney failure is considered if eGFR is <15 mL/min/1.73 sq meters. eGFR assumes steady state plasma creatinine concentration; not applicable if renal function is rapidly changing or patient is on dialysis. eGFR, if AFR/AM >60 >60 mL/min/1.7 3m*2 11/17/2021 3:12 PM EDT [facility] Comment:eGFR = estimated GFR ; [...] / Unknown (Port) Long-term Catheter / Unknown 11/17/2021 1:54 PM EDT 11/17/2021 2:18 PM EDT us Penelope Dodson MD LAB BLOOD ORDERABLES Final Result [facility] [address] [place] [address] * (ABNORMAL) CBC and Differential (11/17/2021 1:54 PM EDT) WBC Count 4.13 3.70 - 10.30 10*3/uL LAB HEMATOLOGY METHOD 11/17/2021 2:09 PM EDT [facility] RBC Count 2.96(L) 3.90 - 5.20 10*6/uL LAB HEMATOLOGY METHOD 11/17/2021 2:09 PM EDT [facility] HGB 10.4(L) 11.2 - 15.7 g/dL LAB HEMATOLOGY METHOD 11/17/2021 2:09 PM EDT [facility] HCT 32.6(L) 34.0 - 45.0 % LAB HEMATOLOGY METHOD 11/17/2021 2:09 PM EDT [facility] Platelet Count 174 155 - 369 10*3/uL LAB HEMATOLOGY METHOD 11/17/2021 2:09 PM EDT [facility] MCV 110(H) 79 - 98 fL LAB HEMATOLOGY METHOD 11/17/2021 2:09 PM EDT [facility] MCH 35.1(H) 26.0 - 32.0 pg LAB HEMATOLOGY METHOD 11/17/2021 2:09 PM EDT [facility] MCHC 31.9 30.7 - 35.5 g/dL LAB HEMATOLOGY METHOD 11/17/2021 2:09 PM EDT [facility] RDW 17.4(H) 11.5 - 14.5 % LAB HEMATOLOGY METHOD 11/17/2021 2:09 PM EDT [facility] MPV 9.3 8.8 - 12.5 fL LAB HEMATOLOGY METHOD 11/17/2021 2:09 PM EDT [facility] nRBC 0.0 <=0.0 per 100 WBCs LAB HEMATOLOGY METHOD 11/17/2021 2:09 PM EDT [facility] Differential Type Automated LAB HEMATOLOGY METHOD 11/17/2021 2:09 PM EDT [facility] Neutrophils % 63.0 % LAB HEMATOLOGY METHOD 11/17/2021 2:09 PM EDT [facility] Lymphocytes % 28.0 % LAB HEMATOLOGY METHOD 11/17/2021 2:09 PM EDT [facility] Monocytes % 7.0 % LAB HEMATOLOGY METHOD 11/17/2021 2:09 PM EDT [facility] Eosinophils % 1.0 % LAB HEMATOLOGY METHOD 11/17/2021 2:09 PM EDT [facility] Basophils % 0.0 % LAB HEMATOLOGY METHOD 11/17/2021 2:09 PM EDT [facility] Immature Granulocytes % 1.0 % LAB HEMATOLOGY METHOD 11/17/2021 2:09 PM EDT [facility] Neutrophils Absolute 2.60 1.60 - 6.10 10*3/uL LAB HEMATOLOGY METHOD 11/17/2021 2:09 PM EDT [facility] Lymphocytes Absolute 1.16(L) 1.20 - 3.90 10*3/uL LAB HEMATOLOGY METHOD 11/17/2021 2:09 PM EDT [facility] Monocytes Absolute 0.30 0.30 - 0.90 10*3/uL LAB HEMATOLOGY METHOD 11/17/2021 2:09 PM EDT [facility] Eosinophils Absolute 0.04 0.00 - 0.50 10*3/uL LAB HEMATOLOGY METHOD 11/17/2021 2:09 PM EDT [facility] Basophils Absolute 0.01 0.00 - 0.10 10*3/uL LAB HEMATOLOGY METHOD 11/17/2021 2:09 PM EDT [facility] Immature Granulocytes Absolute 0.02 0.00 - 0.06 10*3/uL LAB HEMATOLOGY METHOD 11/17/2021 2:09 PM EDT [facility] Blood Blood sample taken from central line / Unknown (Port) Long-term Catheter / Unknown 11/17/2021 1:54 PM EDT 11/17/2021 2:07 PM EDT Narrative [facility] - 11/17/2021 2:09 PM EDT Therapeutic decision making should be based on absolute values, rather than percentages. us Penelope Dodson MD LAB BLOOD ORDERABLES Final Result [facility] [address] [place] [address] * (ABNORMAL) Magnesium (11/17/2021 1:54 PM EDT) Magnesium, Plasma 1.3(L) 1.9 - 2.4 mg/dL 11/17/2021 3:12 PM EDT [facility] Blood Blood sample taken from central line / Unknown (Port) Long-term Catheter / Unknown 11/17/2021 1:54 PM EDT 11/17/2021 2:18 PM EDT Penelope Dodson MD LAB BLOOD ORDERABLES Final Result [facility] [address] [place] [address] documented in this encounter Visit Diagnoses Diagnosis Carcinoma of fallopian tube, unspecified laterality (CMS/HCC)- Primary Encounter for antineoplastic chemotherapy Neuropathy Mononeuritis of unspecified site documented in this encounter Additional Health Concerns Assessment Noted Time A fall risk assessment has been complete d for the patient 11/17/2021 1:43 PM EDT documented as of this encounter Care Teams Measuring Clerk Relationship Specialty Start Date End Date Leny Valdes DO [address] [place] [address] PCP - General 12/11/20 12/13/21 Aliyah Valencia MD [address] [place] [address] Referring Physician 03/10/21 documented as of this encounter
--- OUTSIDE RECORDS SUMMARY | 2024-07-10 12:02 | XMS_ITS | Encounter Summary ---
Author Organization Healthcare Address [address] [place], [place] [id number] Care Team Providers Care Baker Second Name Role Phone Aliyah Valencia MD Unavailable [phone] Flaquita Dorsey DO Primary Care Provider [phone] Encounter Details Date Type Department Care Team (Latest Contact Info) Description 12/14/2021 12:21 PM EDT - 12/14/2021 12:59 PM EDT Hospital Encounter [facility] [address] [address] Malignant neoplasm of overlapping sites of left [...] - Inhaled Oxygen Concentration - - Weight 86.6 kg (191 lb) 12/14/2021 12:28 PM EDT Height 161.3 cm (5' 3.5 ) 12/14/2021 12:28 PM ED T Body Mass Index 33.3 12/14/2021 12:28 PM EDT documented in this encounter Medications at Time of Discharge aspirin 81 MG chewable tablet Chew 1 tablet (81 mg) 1 (one) time each day. ergocalciferol (Vitamin D-2) 1.25 MG (00995 UT) capsule Take 1 capsule (50,000 Units) [...] AM EST Office Visit [facility] [address] [address] [place] [address] Penelope Carmona MD 800 [facility] [address] [facility] [address] [place] [address] 08/05/2024 9:30 AM EST Appointment [facility] [address] [place] [address] 02/26/2025 9:30 AM EDT Appointment [facility] [address] [address] [address] [facility] [address] [place] [address] 02/26/2025 10:30 AM EDT Office Visit [facility] [address] [place] [address] Berenice Resendez, GOODWILL REPRESENTATIVE [address] [place] [address] documented as of this encounter Procedures Procedure Name Priority Date/Time Associated Diagnosis Comments MAMMOGRAPHY BREAST DIAGNOSTIC TOMOSYNTHESIS BILATERAL STAT 12/14/2021 12:44 PM EDT Malignant neoplasm of overlapping sites of left breast in female, estrogen receptor positive (CMS/HCC) documented in this encounter Results * Mammography Breast Diagnostic Tomosynthesis Bilateral (12/14/2021 12:44 PM EDT) Anatomical Region Laterality Modality Breast Bilateral Mammography Impressions 12/14/2021 1:41 PM EDT Right Breast [...] DIAGNOSTIC TOMOSYNTHESIS BILATERAL ordered by CARA ROMERO, [id number] CLINICAL INDICATION: 76-year-old presenting for BI-RADS 3 [...] BREAST DIAGNOSTIC TOMOSYNTHESIS BILATERALordered by CARA ROMERO, [id number] CLINICAL INDICATION: 76-year-old presenting for BI-RADS 3 [...] documented as of this encounter Care Teams Baker Second Relationship Specialty Start Date End Date Flaquita Dorsey DO [address] [place] [address] PCP - General 12/14/21 Aliyah Valencia MD [address] [place] [address] Referring Physician 03/10/21 documented as of this encounter
--- OUTSIDE RECORDS SUMMARY | 2024-07-10 12:02 | XMS_ITS | Encounter Summary ---
Author Organization Healthcare Address [address] [place] [address] Care Team Providers Care Community Advocate Name Role Phone Leny Valdes Lida CAMERON Primary Care Provider [phone] Aliyah Valencia MD Unavailable [phone] Encounter Details Date Type Department Care Team (Latest Contact Info) Description 09/15/2021 Travel Social History Tobacco Use Types Packs/Day [...] [facility] [address] [place] [address] Penelope Carmona MD [address] [facility] [address] [place] [address] 08/05/2024 9:30 AM EST Appointment [facility] [address] [place] [address] 02/26/2025 9:30 AM EDT Appointment [facility] [address] [place] [address] 02/26/2025 10:30 AM EDT Office Visit [facility] [address] [place] [address] Berenice Resendez D, [employer] 800 [facility] [address] [place] [address] documented as of this encounter Visit Diagnoses Not on filedocumented in this encounter Additional Health Concerns Assessment Noted Time A fall risk assessment has been complete d for the patient 09/15/2021 10:55 AM EST documented as of this encounter Care Teams Community Advocate Relationship Specialty Start Date End Date Leny Valdes DO [address] [facility] [place] [address] PCP - General 12/11/20 12/13/21 Aliyah Valencia MD [address] [place] [place] [address] Referring Physician 03/10/21 documented as of this encounter
--- OUTSIDE RECORDS SUMMARY | 2024-07-10 12:03 | XMS_ITS | Encounter Summary ---
Author Organization [facility] Address [address] [place] [address] Care Team Providers Care Manufacturing Electrician Name Role Phone LucioLeny Lida CAMERON Primary Care Provider [phone] Aliyah Valencia MD Unavailable [phone] Reason for Visit * Episode Based Medications (Routine) - Closed Specialty Diagnoses / Procedures Referred By Contac t Referred To Contact Diagnoses Carcinoma of fallopian tube, unspecified laterality (CMS/HCC) Penelope Carmona MD [address] [place] [address] [address] Phone: tel: fax: [facility] Infusion Clinic [address] [place] [address] Phone: tel: Referral ID Status Reason Start Date Expiration Date Visits Re quested Visits Authorized [id number] Closed 06/30/2021 06/30/2022 1 21 Encounter Details Date Type Department Care Team (Latest Contact Info) Description 08/27/2021 1:18 PM EST - 08/27/2021 11:59 PM EST Hospital Encounter [facility] In[facility] [address] [place] [address] Carcinoma of fallopian tube, unspecified [...] Sign Reading Time Taken Comments Blood Pressure 129/79 08/27/2021 1:18 PM EST Pulse 97 08/27/2021 1:18 PM EST Temperature 37.1 ??C (98.8 ??F) 08/27/2021 1:18 PM ES T Respiratory Rate 20 08/27/2021 1:18 PM EST Oxygen Saturation 98% 08/27/2021 1:18 PM EST Inhaled Oxygen Concentration - - Weight 84.2 kg (185 lb 10 oz) 08/27/2021 1:18 PM EST Height 161.3 cm (5' 3.5 ) 08/27/2021 1:18 PM EST Body Mass Index 32.37 08/27/2021 1:18 PM EST documented in this encounter Medications at Time of Discharge aspirin 81 MG chewable tablet Chew 1 tablet (81 mg) 1 (one) time each day. ergocalciferol (Vitamin D-2) 1.25 MG (18549 UT) capsule Take 1 capsule (50,000 Units) [...] day. 3 documented as of this encounter Miscellaneous Notes * Addendum Note - Blayne Barker - 08/27/2021 2:30 PM ESTEncounter addended by: Blayne Barker on: 08/30/2021 11:20 AM Actions taken: Charge Capture section accepted documented in this encounter Plan of Treatment Upcoming Encounters Date Type Department Care Team (Late st Contact Info) Description 08/05/2024 8:00 AM EST Office Visit [facility] Gynecology [address] [place] [address] Penelope Carmona MD [address] [facility] [address] [place] [address] 08/05/2024 9:30 AM EST Appointment [facility] [address] [place] [address] 02/26/2025 9:30 AM EDT Appointment [facility] [address] [facility] [address] [place] [address] 02/26/2025 10:30 AM EDT Office Visit [facility] [address] [facility], [address] [place] [address] Berenice Resendez, EVP BUSINESS DEVELOPMENT [address] [facility] [address] [place] [address] documented as of this encounter Procedures Procedure Name Priority Date/Time Associated Diagnosis Comments CBC WITH AUTO DIFFERENTIAL STAT 08/27/2021 1:59 PM EST Carcinoma of fallopian tube, unspecified laterality (CMS/HCC) documented in this encounter Results * (ABNORMAL) CBC and Differential (08/27/2021 1:59 PM EST) WBC Count 3.95 3.70 - 10.30 10*3/uL LAB HEMATOLOGY METHOD 08/27/2021 2:03 PM EST [facility] RBC Count 3.73(L) 3.90 - 5.20 10*6/uL LAB HEMATOLOGY METHOD 08/27/2021 2:03 PM EST [facility] HGB 11.5 11.2 - 15.7 g/dL LAB HEMATOLOGY METHOD 08/27/2021 2:03 PM EST [facility] HCT 36.5 34.0 - 45.0 % LAB HEMATOLOGY METHOD 08/27/2021 2:03 PM EST [facility] Platelet Count 180 155 - 369 10*3/uL LAB HEMATOLOGY METHOD 08/27/2021 2:03 PM EST [facility] MCV 98 79 - 98 fL LAB HEMATOLOGY METHOD 08/27/2021 2:03 PM EST [facility] MCH 30.8 26.0 - 32.0 pg LAB HEMATOLOGY METHOD 08/27/2021 2:03 PM EST [facility] MCHC 31.5 30.7 - 35.5 g/dL LAB HEMATOLOGY METHOD 08/27/2021 2:03 PM EST [facility] RDW 14.4 11.5 - 14.5 % LAB HEMATOLOGY METHOD 08/27/2021 2:03 PM EST [facility] MPV 8.6(L) 8.8 - 12.5 fL LAB HEMATOLOGY METHOD 08/27/2021 2:03 PM EST [facility] nRBC 0.0 <=0.0 per 100 WBCs LAB HEMATOLOGY METHOD 08/27/2021 2:03 PM EST [facility] Differential Type Automated LAB HEMATOLOGY METHOD 08/27/2021 2:03 PM EST [facility] Neutrophils % 57.0 % LAB HEMATOLOGY METHOD 08/27/2021 2:03 PM EST [facility] Lymphocytes % 33.0 % LAB HEMATOLOGY METHOD 08/27/2021 2:03 PM EST [facility] Monocytes % 7.0 % LAB HEMATOLOGY METHOD 08/27/2021 2:03 PM [facility] Eosinophils % 2.0 % LAB HEMATOLOGY METHOD 08/27/2021 2:03 PM [facility] Basophils % 1.0 % LAB HEMATOLOGY METHOD 08/27/2021 2:03 PM [facility] Immature Granulocytes % 0.0 % LAB HEMATOLOGY METHOD 08/27/2021 2:03 PM [facility] Neutrophils Absolute 2.26 1.60 - 6.10 10*3/uL LAB HEMATOLOGY METHOD 08/27/2021 2:03 PM EST [facility] Lymphocytes Absolute 1.31 1.20 - 3.90 10*3/uL LAB HEMATOLOGY METHOD 08/27/2021 2:03 PM [facility] Monocytes Absolute 0.29(L) 0.30 - 0.90 10*3/uL LAB HEMATOLOGY METHOD 08/27/2021 2:03 PM EST [facility] Eosinophils Absolute 0.06 0.00 - 0.50 10*3/uL LAB HEMATOLOGY METHOD 08/27/2021 2:03 PM [facility] Basophils Absolute 0.02 0.00 - 0.10 10*3/uL LAB HEMATOLOGY METHOD 08/27/2021 2:03 PM [facility] Immature Granulocytes Absolute 0.01 0.00 - 0.06 10*3/uL LAB HEMATOLOGY METHOD 08/27/2021 2:03 PM EST [facility] Blood Blood sample taken from central line / Unknown Venipuncture / Unknown 08/27/2021 1:59 PM EST 08/27/2021 2:00 PM EST Narrative [facility] - 08/27/2021 2:03 PM EST Therapeutic decision making should be based on absolute values, rather than percentages. us Penelope Dodson MD LAB BLOOD ORDERABLES Final Result [facility] [address] [place] [address] documented in this encounter Visit Diagnoses Diagnosis [...] Waste Container. Chemotherapy: refer to [id number]., On Mon08/27/21 at 1515, For 1 dose, NS 250 mLIndications:Carcinoma of fallopian tube, unspecified laterality (CMS/HCC) New Bag 08/27/2021 2:52 PM EST 483.5 mg 686.7 mL/hr dexamethasone (Decadron) tablet 12 mg 12 mg, Oral, Once, 1 dose, On Mon08/27/21 at 1445, RoutineIndications:Carcinoma of fallopian tube, unspecified laterality (CMS/HCC) Given 08/27/2021 2:28 PM EST 12 mg magnesium oxide (Mag-Ox) tablet 400 mg 400 mg, Oral, Once as needed, 1 dose, Starting on Mon08/27/21 at 1424, Until Mon08/27/21 at 1428, Routine, For magnesium value 1.5 to 1.8 and patient having LESS THAN or EQUAL to 3 loose stools per dayIndications:Neuropathy Given 08/27/2021 2:28 PM EST 400 mg ondansetron ODT (Zofran-ODT) disintegrating tablet 16 mg 16 mg, Oral, Once, 1 dose, On Mon08/27/21 at 1445, RoutineIndications:Carcinoma of fallopian tube, unspecified laterality (CMS/HCC) Given 08/27/2021 2:28 PM EST 16 mg documented in this encounter Additional Health Concerns Assessment Noted Time A fall risk assessment has been complete d for the patient 08/27/2021 1:18 PM EST documented as of this encounter Care Teams Manufacturing Electrician Relationship Specialty Start Date End Date Leny Valdes DO [address] [place] [address] PCP - General 12/11/20 12/13/21 Aliyah Valencia MD [address] [place] [address] Referring Physician 03/10/21 documented as of this encounter
--- OUTSIDE RECORDS SUMMARY | 2024-07-10 12:03 | XMS_ITS | Encounter Summary ---
Author Organization [facility] Address [address] [place] [address] Care Team Providers Care Inspector Finishing Name Role Phone Leny Valdes Primary Care Provider [phone] Aliyah Valencia MD Unavailable [phone] Reason for Referral * Imaging (Routine) - Closed Specialty Diagnoses / Procedures Referred By Contac t Referred To Contact Radiology Diagnoses Carcinoma of fallopian tube, unspecified laterality (CMS/HCC) Procedures CT Chest w IV Contrast Penny Carmona MD [address] [address] Phone: tel: fax: Referral ID Status Reason Start Date Expiration Date Visits Re quested Visits Authorized [id number] Closed 04/01/2021 09/28/2021 1 1 * Imaging (Routine) - Closed Specialty Diagnoses / Procedures Referred By Contshena t Referred To Contact Radiology Diagnoses Carcinoma of fallopian tube, unspecified laterality (CMS/HCC) Procedures CT Abdomen Pelvis w IV Contrast Penny Carmona MD [address] [address] Phone: tel: fax: Referral ID Status Reason Start Date Expiration Date Visits Re quested Visits Authorized [id number] Closed 04/01/2021 09/28/2021 1 1 Encounter Details Date Type Department Care Team (Late Contact Info) Description 04/01/2021 Orders Only [facility] [address] [place] [address] Penny Carmona MD 800 [facility] [address] [facility] [address] [place] [address] Carcinoma of fallopian tube, unspecified laterality (CMS/HCC) (Primary Dx) Social History Tobacco Use Types Packs/Day Years Used Date Smoking Tobacco: Former Smokeless Tobacco: Former Comments Unknown Sex and Gender Information Value Date Recorded Sex Assigned at Not on file Legal Sex Female 8:51 PM EDT Gender Identity Not on file Sexual Orientation Not on file COVID-19 Exposure Response Date Recorded In the last month, have you been in contact with someone who was confirmed or suspected to have Coronavirus / COVID-19? No / Unsure 03/31/2021 3:15 PM EDT documented as of this encounter Plan of Treatment Upcoming Encounters Date Type Department Care Team (Late Contact Info) Description 08/05/2024 8:00 AM EST Office Visit [facility] 800 [facility] [address] [place] [address] Penny Carmona MD 800 [facility] [address] [facility] [address] [place] [address] 08/05/2024 9:30 AM EST Appointment [facility] 1 [address] [place] [address] 02/26/2025 9:30 AM EDT Appointment [facility] [address] [facility] [address] [place] [address] 02/26/2025 10:30 AM EDT Office Visit [facility] Breast Care Center [address] [facility], 2nd [place] [address] Berenice Resendez, PARTS ORDER AND STOCK CLERK [address] [place] [address] documented as of this encounter Results * CT Chest w IV Contrast (06/30/2021 12:45 PM EST) Anatomical Region Laterality Modality Chest Computed Tomogra phy Impressions 06/30/2021 1:24 PM EST Chest: No evidence of disease progression. Abdomen/Pelvis: Enlargement of a vaginal cuff enhancing mass concerning for disease progression. Interval enlargement of an indeterminant right adrenal gland nodule concerning for metastatic disease. CRITICAL RESULT: ?? No. COMMUNICATION: Per this written report. Signed by Savannah Gonzalez on ??06/30/2021 1:24 PM Narrative 06/30/2021 1:24 PM EST Exam/Procedure: CT ABDOMEN PELVIS W IV CONTRAST, CT CHEST W IV CONTRAST ordered by PENNY BANERJEE NEWHALL, [id number] CLINICAL INDICATION: Ovarian cancer, surveillance TECHNIQUE: Multiple [...] disease. No pleural effusions or suspicious thickening. Mild scattered groundglass opacities are unchanged [...] No suspicious lytic or sclerotic osseous lesion. Procedure Note Savannah Gonzalez, DO - 06/30/2021 Exam/Procedure: CT ABDOMEN PELVIS W IV CONTRAST, CT CHEST W IV CONTRASTordered by PENNY BANERJEE BRANCH, [id number] CLINICAL INDICATION: Ovarian cancer, surveillance TECHNIQUE: Multiple axial CT images were obtained from thoracic inlet through pubicsymphysis following administration of IV contrast, Omnipaque 300, 100 mL.Reformatted images of the abdomen and pelvis in the coronal and sagittalplanes were generated from the axial data set to facilitate diagnosticaccuracy. Total DLP (Dose-Length Product): 756.76 mGy.cm. Please note: The reportedvalue represents the total of one or more individual components during theCT acquisition on this date and at this time, and as such, the same valuemay appear in more than one CT report depending on theinterpreting/reporting physicians. COMPARISON: CT of the chest abdomen and pelvis performed 11/27/2020 FINDINGS: Chest: Lymph Nodes and Mediastinum: No lymphadenopathy by CT size criteria. Nomediastinal mass lesions. No suspicious thyroid findings. Right chest smtoNgyl-M-Hpiy is stable. Cardiovascular: The heart is normal in caliber. Thoracic great vessels arepatent. Aortic valve leaflet calcifications. Lungs and Pleura: No suspicious lung nodules to suggest metastaticdisease. No pleural effusions or suspicious thickening. Mild scatteredgroundglass opacities are unchanged from comparison exam. Similar degreeof mild bronchiectasis. Stable subpleural reticulation within the leftupper lobe. Musculoskeletal and Body Wall: No clearly aggressive bone lesions. Abdomen/Pelvis: Solid Abdominal Organs: Unremarkable liver. Status post cholecystectomy.No suspicious renal mass lesions. No hydronephrosis. Unremarkable spleen.Indeterminate right adrenal nodule has increased in size measuring 22 mm,previously 18 mm) series 3, image 67) disease. 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 The spleen and pancreas are unremarkable.Symmetric renal enhancement with small bilateral cysts and mildparenchymal atrophy. GI Tract/Mesentery/Peritoneum: Nonobstructed large and small bowel. Thereare several herniated loops of small bowel within a wide neck midlineabdominal hernia unchanged from comparison. No suspicious peritoneal ormesenteric findings.. Pelvic Viscera: Enlargement of a enhancing mass at the vaginal cuffmeasuring 40 x 37 mm, previously 22 x 20 mm (series 3, image 252). Thismass directly abuts the posterior urinary bladder. Lymph Nodes/Vasculature: No lymphadenopathy by CT size criteria. No new orenlarging lymph nodes. Free Fluid:No ascites. Musculoskeletal and Body Wall: Grade 1 anterolisthesis of L4 on L5. Nosuspicious lytic or sclerotic osseous lesion. IMPRESSION: Chest: No evidence of disease progression. Abdomen/Pelvis: Enlargement of a vaginal cuff enhancing mass concerningfor disease progression. Interval enlargement of an indeterminant right adrenal gland noduleconcerning for metastatic disease. CRITICAL RESULT: No. COMMUNICATION: Per this written report. Signed by Savannah Gonzalez on 06/30/2021 1:24 PM us Penny Dodson MD IMG CT PROCEDURES Fin al Result * CT Abdomen Pelvis w IV Contrast (06/30/2021 12:45 PM EST) Anatomical Region Laterality Modality Abdomen, Pelvis Computed Tomogra phy Impressions 06/30/2021 1:24 PM EST Chest: No evidence of disease progression. Abdomen/Pelvis: Enlargement of a vaginal cuff enhancing mass concerning for disease progression. Interval enlargement of an indeterminant right adrenal gland nodule concerning for metastatic disease. CRITICAL RESULT: ?? No. COMMUNICATION: Per this written report. Signed by Savannah Pazchinyere on ??06/30/2021 1:24 PM Narrative 06/30/2021 1:24 PM EST Exam/Procedure: CT ABDOMEN PELVIS W IV CONTRAST, CT CHEST W IV CONTRAST ordered by PENNY BANERJEE NEWHALL, [id number] CLINICAL INDICATION: Ovarian cancer, surveillance TECHNIQUE: Multiple [...] disease. No pleural effusions or suspicious thickening. Mild scattered groundglass opacities are unchanged [...] No suspicious lytic or sclerotic osseous lesion. Procedure Note Savannah Gonzalez, DO - 06/30/2021 Exam/Procedure: CT ABDOMEN PELVIS W IV CONTRAST, CT CHEST W IV CONTRASTordered by PENNY BANERJEE BRANCH, [id number] CLINICAL INDICATION: Ovarian cancer, surveillance TECHNIQUE: Multiple axial CT images were obtained from thoracic inlet through pubicsymphysis following administration of IV contrast, Omnipaque 300, 100 mL.Reformatted images of the abdomen and pelvis in the coronal and sagittalplanes were generated from the axial data set to facilitate diagnosticaccuracy. Total DLP (Dose-Length Product): 756.76 mGy.cm. Please note: The reportedvalue represents the total of one or more individual components during theCT acquisition on this date and at this time, and as such, the same valuemay appear in more than one CT report depending on theinterpreting/reporting physicians. COMPARISON: CT of the chest abdomen and pelvis performed 11/27/2020 FINDINGS: Chest: Lymph Nodes and Mediastinum: No lymphadenopathy by CT size criteria. Nomediastinal mass lesions. No suspicious thyroid findings. Right chest oyhbBeub-L-Sszf is stable. Cardiovascular: The heart is normal in caliber. Thoracic great vessels arepatent. Aortic valve leaflet calcifications. Lungs and Pleura: No suspicious lung nodules to suggest metastaticdisease. No pleural effusions or suspicious thickening. Mild scatteredgroundglass opacities are unchanged from comparison exam. Similar degreeof mild bronchiectasis. Stable subpleural reticulation within the leftupper lobe. Musculoskeletal and Body Wall: No clearly aggressive bone lesions. Abdomen/Pelvis: Solid Abdominal Organs: Unremarkable liver. Status post cholecystectomy.No suspicious renal mass lesions. No hydronephrosis. Unremarkable spleen.Indeterminate right adrenal nodule has increased in size measuring 22 mm,previously 18 mm) series 3, image 67) disease. 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 The spleen and pancreas are unremarkable.Symmetric renal enhancement with small bilateral cysts and mildparenchymal atrophy. GI Tract/Mesentery/Peritoneum: Nonobstructed large and small bowel. Thereare several herniated loops of small bowel within a wide neck midlineabdominal hernia unchanged from comparison. No suspicious peritoneal ormesenteric findings.. Pelvic Viscera: Enlargement of a enhancing mass at the vaginal cuffmeasuring 40 x 37 mm, previously 22 x 20 mm (series 3, image 252). Thismass directly abuts the posterior urinary bladder. Lymph Nodes/Vasculature: No lymphadenopathy by CT size criteria. No new orenlarging lymph nodes. Free Fluid:No ascites. Musculoskeletal and Body Wall: Grade 1 anterolisthesis of L4 on L5. Nosuspicious lytic or sclerotic osseous lesion. IMPRESSION: Chest: No evidence of disease progression. Abdomen/Pelvis: Enlargement of a vaginal cuff enhancing mass concerningfor disease progression. Interval enlargement of an indeterminant right adrenal gland noduleconcerning for metastatic disease. CRITICAL RESULT: No. COMMUNICATION: Per this written report. Signed by Savannah Gonzalez on 06/30/2021 1:24 PM Penny Dodson MD IMG CT PROCEDURES Fin al Result documented in this encounter Visit Diagnoses Diagnosis Carcinoma of fallopian tube, unspecified laterality (CMS/HCC)- Primary Carcinoma of fallopian tube, unspecified laterality (CMS/HCC) documented in this encounter Additional Health Concerns Assessment Noted Time A fall risk assessment has been complete d for the patient 03/31/2021 3:26 PM EDT documented as of this encounter Care Teams Inspector Finishing Relationship Specialty Start Date End Date Leny Valdes DO [address] [place] [address] PCP - General 12/11/20 12/13/21 Aliyah Valencia MD [address] [place] [place] [address] Referring Physician 03/10/21 documented as of this encounter
--- OUTSIDE RECORDS SUMMARY | 2024-07-10 12:03 | XMS_ITS | Encounter Summary ---
Author Organization [facility] Address [address] [place] [address] Care Team Providers Care Assistant Scientist Name Role Phone Leny Valdes DO Primary Care Provider [phone] Aliyah Valencia MD Unavailable [phone] Flaquita Dorsey DO Primary Care Provider [phone] Conrado Iqbal MD Unavailable Encounter Details Date Type Department Care Team (Late st Contact Info) Description 08/11/2020 Abstract [facility] Radiation 800 [facility] [id number] [place] [address] Radiation Oncology, Physician, [address] [place], [place] [id number] Social History Tobacco Use Types Packs/Day Years [...] [facility] Gynecology 800 [facility] [address] [place] [address] Penelope Carmona MD 800 [facility] [address] [facility] [address] [place] [address] 08/05/2024 9:30 AM EST Appointment [facility] 1 [address] [place] [address] 02/26/2025 9:30 AM EDT Appointment [facility] [address] [place] [address] 02/26/2025 10:30 AM EDT Office Visit [facility] [address] [facility], [address]nd [place] [address] Berenice Resendez, RETICLE PRINTER 800 [facility] [address] [place] [address] documented as of this encounter Visit Diagnoses Not on filedocumented in this encounter Additional Health Concerns Infection Onset Date Last Indicated Resolved Time Respiratory Rule-Out 05/17/2024 05/17/2024 024 11:59 PM EDT documented as of this encounter Care Teams Assistant Scientist Relationship Specialty Start Date End Date Leny Valdes DO [address] [place] [address] PCP - General 12/11/20 12/13/21 Flaquita Dorsey DO [address] [place] [address] PCP - General 12/14/21 Aliyah Valencia MD [address] [place] [address] Referring Physician 03/10/21 Conrado Iqbal MD [address] [place] [address] Service Attending Cardiology 08/19/22 documented as of this encounter
--- OUTSIDE RECORDS SUMMARY | 2024-07-10 12:03 | XMS_ITS | Encounter Summary ---
Author Organization Healthcare Address [address] [place] [address] Care Team Providers Care Packaging Design Engineer Name Role Phone Leny Valdes Lida CAMERON Primary Care Provider [phone] Aliyah Valencia MD Unavailable [phone] Encounter Details Date Type Department Care Team (Latest Contact Info) Description 06/14/2021 Travel Social History Tobacco Use Types Packs/Day [...] have Coronavirus / COVID-19? No / Unsure 06/14/2021 1:36 PM EST documented as of this encounter Plan of Treatment Upcoming Encounters Date Type Department Care Team (Late st Contact Info) Description 08/05/2024 8:00 AM EST Office Visit [facility] Gynecology [address] [place] [address] Penelope Carmona MD 800 [facility] [address] [facility] [address] [place] [address] 08/05/2024 9:30 AM EST Appointment [facility] 1 [address] [place] [address] 02/26/2025 9:30 AM EDT Appointment [facility] [address] [place] [address] 02/26/2025 10:30 AM EDT Office Visit [facility] Breast Care Center [address] [facility], [address]nd [place] [address] Berenice Resendez D, JIVE DEVELOPER 800 [facility] [address] [place] [address] documented as of this encounter Visit Diagnoses Not on filedocumented in this encounter Additional Health Concerns Assessment Noted Time A fall risk assessment has been complete d for the patient 06/14/2021 3:00 PM EST documented as of this encounter Care Teams Packaging Design Engineer Relationship Specialty Start Date End Date Leny Valdes DO [address] [place] [address] PCP - General 12/11/20 12/13/21 Aliyah Valencia MD [address] [place] [address] Referring Physician 03/10/21 documented as of this encounter
--- OUTSIDE RECORDS SUMMARY | 2024-07-10 12:03 | XMS_ITS | Encounter Summary ---
Author Organization [facility] Address [address] [place] [address] Care Team Providers Care Director Of Institutional Giving Name Role Phone Leny Valdes Primary Care Provider [phone] Aliyah Valencia MD Unavailable [phone] Encounter Details Date Type Department Care Team (Latest Contact Info) Description 08/04/2021 Travel Social History Tobacco Use Types Packs/Day [...] have Coronavirus / COVID-19? No / Unsure 08/04/2021 1:02 PM EST documented as of this encounter Plan of Treatment Upcoming Encounters Date Type Department Care Team (Late st Contact Info) Description 08/05/2024 8:00 AM EST Office Visit [facility] Gynecology 800 [facility] [address] [place] [address] Penelope Carmona MD [address] [facility] [address] [place] [address] 08/05/2024 9:30 AM EST Appointment [facility] 1 [address] [place] [address] 02/26/2025 9:30 AM EDT Appointment [facility] [address] [place] [address] 02/26/2025 10:30 AM EDT Office Visit [facility] [address] [place] [address] Berenice Resendez, AUDIO PRODUCTION INSTRUCTOR [address] [facility] [address] [place] [address] documented as of this encounter Visit Diagnoses Not on filedocumented in this encounter Additional Health Concerns Assessment Noted Time A fall risk assessment has been complete d for the patient 08/04/2021 2:23 PM EST documented as of this encounter Care Teams Director Of Institutional Giving Relationship Specialty Start Date End Date Leny Valdes DO [address] [place] [address] PCP - General 12/11/20 12/13/21 Aliyah Valencia MD [address] [place] [place] [address] Referring Physician 03/10/21 documented as of this encounter
--- OUTSIDE RECORDS SUMMARY | 2024-07-10 12:03 | XMS_ITS | Encounter Summary ---
Author Organization [facility] Address [address] [place] [address] Care Team Providers Care Traffic Technician Name Role Phone LucioNuraмаринаfang Lida CAMERON Primary Care Provider [phone] Aliyah Valencia MD Unavailable [phone] Reason for Visit * Episode Based Medications (Routine) - Closed Specialty Diagnoses / Procedures Referred By Contac t Referred To Contact Diagnoses Carcinoma of fallopian tube, unspecified laterality (CMS/HCC) Penelope Carmona MD [address] [place] [address] [address] Phone: tel: fax: [facility] 2 [address] [place] [address] Phone: tel: Referral ID Status Reason Start Date Expiration Date Visits Re quested Visits Authorized [id number] Closed 06/30/2021 06/30/2022 1 21 Encounter Details Date Type Department Care Team (Latest Contact Info) Description 08/04/2021 2:21 PM EST - 08/04/2021 11:59 PM EST Hospital Encounter [facility] In[facility] 1 [address] [place] [address] Carcinoma of fallopian tube, unspecified [...] Sign Reading Time Taken Comments Blood Pressure 128/77 08/04/2021 2:23 PM EST Pulse 78 08/04/2021 2:23 PM EST Temperature 36.8 ??C (98.3 ??F) 08/04/2021 2:23 PM ES T Respiratory Rate 18 08/04/2021 2:23 PM EST Oxygen Saturation 99% 08/04/2021 2:23 PM EST Inhaled Oxygen Concentration - - Weight 84.1 kg (185 lb 6.5 oz) 08/04/2021 2:23 P M EST Height 161.3 cm (5' 3.5 ) 08/04/2021 2:23 PM EST Body Mass Index 32.33 08/04/2021 2:23 PM EST documented in this encounter Medications at Time of Discharge aspirin 81 MG chewable tablet Chew 1 tablet (81 mg) 1 (one) time each day. ergocalciferol (Vitamin D-2) 1.25 MG (92579 UT) capsule Take 1 capsule (50,000 Units) [...] every night. 30 capsule 3 06/30/2021 2 levothyroxine (Synthroid, Levoxyl) 75 MCG tablet Take [...] Description 08/05/2024 8:00 AM EST Office Visit [facility] Gynecology [address] [place] [address] Penelope Carmona MD [address] [place] [address] 08/05/2024 9:30 AM EST Appointment [facility] 1 [address] [place] [address] 02/26/2025 9:30 AM EDT Appointment [facility] Breast Care [facility] [address] Building [address] [place] [address] 02/26/2025 10:30 AM EDT Office Visit [facility] [address] [place] [address] Berenice Resendez, RN CLINICAL COORDINATOR 800 [facility] [address] [place] [address] documented as of this encounter [...] Waste Container. Chemotherapy: refer to [id number]., On Mon08/04/21 at 1615, For 1 dose, NS 250 mLIndications:Carcinoma of fallopian tube, unspecified laterality (CMS/HCC) New Bag 08/04/2021 4:31 PM EST 483.5 mg 686.7 mL/hr dexamethasone (Decadron) tablet 12 mg 12 mg, Oral, Once, 1 dose, On Mon08/04/21 at 1545, RoutineIndications:Carcinoma of fallopian tube, unspecified laterality (CMS/HCC) Given 08/04/2021 3:34 PM EST 12 mg ondansetron ODT (Zofran-ODT) disintegrating tablet 16 mg 16 mg, Oral, Once, 1 dose, On Mon08/04/21 at 1545, RoutineIndications:Carcinoma of fallopian tube, unspecified laterality (CMS/HCC) Given 08/04/2021 3:34 PM EST 16 mg documented in this encounter Additional Health Concerns Assessment Noted Time A fall risk assessment has been complete d for the patient 08/04/2021 2:23 PM EST documented as of this encounter Care Teams Traffic Technician Relationship Specialty Start Date End Date Leny Valdes DO [address] [place], [place] [id number] PCP - General 12/11/20 12/13/21 Aliyah Valencia MD [address] [place] [address] Referring Physician 03/10/21 documented as of this encounter
--- OUTSIDE RECORDS SUMMARY | 2024-07-10 12:03 | XMS_ITS | Encounter Summary ---
Author Organization Healthcare Address [address] [place] [address] Care Team Providers Care Tire Shop Manager Name Role Phone Leny Valdes Lida CAMERON Primary Care Provider [phone] Aliyah Valencia MD Unavailable [phone] Encounter Details Date Type Department Care Team (Latest Contact Info) Description 06/30/2021 Travel Social History Tobacco Use Types Packs/Day Years Used Date Smoking Tobacco: Former Smokeless Tobacco: Former Alcohol Use Standard Drinks/Week Comments Not Currently 0 (1 standard drink = 0.6 oz pur e alcohol) Comments Unknown Sex and Gender Information Value Date Recorded Sex Assigned at Not on file Legal Sex Female 8:51 PM EDT Gender Identity Not on file Sexual Orientation Not on file COVID-19 Exposure Response Date Recorded In the last month, have you been in contact with someone who was confirmed or suspected to have Coronavirus / COVID-19? No / Unsure 06/30/2021 11:04 AM EST documented as of this encounter Plan of Treatment Upcoming Encounters Date Type Department Care Team (Late st Contact Info) Description 08/05/2024 8:00 AM EST Office Visit [facility] [address] [facility] [address] [place] [address] Penelope Carmona MD [address] [facility] [address] [place] [address] 08/05/2024 9:30 AM EST Appointment [facility] 1 [address] [place] [address] 02/26/2025 9:30 AM EDT Appointment [facility] [address] [place] [address] 02/26/2025 10:30 AM EDT Office Visit [facility] [address] [facility], 2nd [place] [address] Berenice Resendez, POWER PLANT OPERATOR [address] [facility] [address] [place] [address] documented as of this encounter Visit Diagnoses Not on filedocumented in this encounter Additional Health Concerns Assessment Noted Time A fall risk assessment has been complete d for the patient 06/30/2021 2:57 PM EST documented as of this encounter Care Teams Tire Shop Manager Relationship Specialty Start Date End Date Leny Valdes DO [address] [place] [address] PCP - General 12/11/20 12/13/21 Aliyah Valencia MD [address] [place] [place] [address] Referring Physician 03/10/21 documented as of this encounter
--- OUTSIDE RECORDS SUMMARY | 2024-07-10 12:03 | XMS_ITS | Encounter Summary ---
Author Organization [facility] Address [address] [place] [address] Care Team Providers Care Sequencing Machine Operator Name Role Phone Leny Valdes Primary Care Provider Aliyah Valencia MD Unavailable [phone] Reason for Referral * Imaging (Routine) - Closed Specialty Diagnoses / Procedures Referred By Contac t Referred To Contact Radiology Diagnoses Carcinoma of fallopian tube, unspecified laterality (CMS/HCC) Procedures CT Chest w IV Contrast Penny Carmona MD [address] [address] Phone: tel: fax: Referral ID Status Reason Start Date Expiration Date Visits Re quested Visits Authorized [id number] Closed 04/01/2021 09/28/2021 1 1 * Imaging (Routine) - Closed Specialty Diagnoses / Procedures Referred By Contac t Referred To Contact Radiology Diagnoses Carcinoma of fallopian tube, unspecified laterality (CMS/HCC) Procedures CT Abdomen Pelvis w IV Contrast Penny Carmona MD [address] [address] Phone: tel: fax: Referral ID Status Reason Start Date Expiration Date Visits Re quested Visits Authorized [id number] Closed 04/01/2021 09/28/2021 1 1 Reason for Visit * Imaging (Routine) - Closed Specialty Diagnoses / Procedures Referred By Contac t Referred To Contact Radiology Diagnoses Carcinoma of fallopian tube, unspecified laterality (CMS/HCC) Procedures CT Abdomen Pelvis w IV Contrast Penny Carmona MD [address] [place] [address] Phone: tel: fax: Referral ID Status Reason Start Date Expiration Date Visits Re quested Visits Authorized [id number] Closed 04/01/2021 09/28/2021 1 1 Encounter Details Date Type Department Care Team (Latest Contact Info) Description 06/30/2021 11:07 AM EST - 06/30/2021 11:59 PM EST Hospital Encounter [facility] [address] [place] [address] Carcinoma of fallopian tube, unspecified laterality (CMS/HCC) [...] AM EST documented as of this encounter Medications at Time of Discharge aspirin 81 MG chewable tablet Chew 1 tablet (81 mg) 1 (one) time each day. ergocalciferol (Vitamin D-2) 1.25 MG (52927 UT) capsule Take 1 capsule (50,000 Units) [...] 4 denosumab (Prolia) 60 MG/ML injection 3 famciclovir [...] day. Do not crush or chew. 2 senna-docusate sodium (Senokot-S) 8.6-50 MG tablet [...] 08/05/2024 8:00 AM EST Office Visit [facility] Gynecology [address] [place] [address] Penny Carmona MD [address] [facility] [address] [place] [address] 08/05/2024 9:30 AM EST Appointment [facility] Infusion Clinic [address] [place] [address] 02/26/2025 9:30 AM EDT Appointment [facility] Breast Care Center Comprehensive Breast Care Center [facility] [address] [place] [address] 02/26/2025 10:30 AM EDT Office Visit [facility] Breast Care Center [address] [facility], [address]nd [place] [address] Berenice Resendez, BUCKLE FRAME SHAPER [address] [facility] [address] [place] [address] documented as of this encounter Procedures Procedure Name Priority Date/Time Associated Diagnosis Comments CT ABDOMEN PELVIS W IV CONTRAST STAT 06/30/2021 12:45 PM EST Carcinoma of fallopian tube, unspecified laterality (CMS/HCC) CT CHEST W IV CONTRAST STAT 06/30/2021 12:45 PM EST Carcinoma of fallopian tube, unspecified laterality (CMS/HCC) POCT CREATININE ISTAT UNSOLICITED RESULTS Routine 06/30/2021 12:10 PM EST documented in this encounter Results * CT [...] W IV CONTRAST ordered by PENNY DODSON, [id number] CLINICAL INDICATION: Ovarian cancer, surveillance TECHNIQUE: Multiple [...] CHEST W IV CONTRASTordered by PENNY BANERJEE FLORENCE, [id number] CLINICAL INDICATION: Ovarian cancer, surveillance TECHNIQUE: Multiple [...] lesions. No suspicious thyroid findings. Right chest [id number] is stable. Cardiovascular: The heart is normal [...] W IV CONTRAST ordered by PENNY DODSON, [id number] CLINICAL INDICATION: Ovarian cancer, surveillance TECHNIQUE: Multiple [...] CHEST W IV CONTRASTordered by PENNY BANERJEE FLORENCE, [id number] CLINICAL INDICATION: Ovarian cancer, surveillance TECHNIQUE: Multiple [...] lesions. No suspicious thyroid findings. Right chest [id number] is stable. Cardiovascular: The heart is normal [...] PROCEDURES Fin al Result * POCT creatinine (06/30/2021 12:10 PM EST) Creatinine, Point of Care 0.7 0.6 - 1.1 mg/dL 06/30/2021 12:15 PM EST [facility] POCT eGFR >60 mL/min/1. 73m*2 06/30/2021 12:15 PM EST [facility] POCT eGFR >60 mL/min/1. 73m*2 06/30/2021 12:15 PM EST [facility] Pulp Bleacher ID Denise Mauricio 06/30/2021 12:15 PM EST [facility] Device ID [id number] 06/30/2021 12:15 PM EST [facility] Comment 06/30/2021 12:15 PM EST [facility] Comment: Testing performed on i-STAT at the point of care. The eGFR is calculated from the creatinine concentration determined by the iSTAT Point of Care (POC) device using an isotope dilution mass spectrometry (IDMS)-traceable Modification of Diet in Renal Disease (MDRD) equation. Blood Venous blood specimen / Unknown 06/30/2021 12:10 PM EST 06/30/2021 12:15 PM EST us Generic Provider Poct LAB POINT OF CARE TEST DOCKED DEVICE UNSOLICITED RESULTS Final Result [facility] [address] [place] [address] documented in this encounter Visit Diagnoses Diagnosis Carcinoma of fallopian tube, unspecified laterality (CMS/HCC) documented in this encounter Administered Medications Inactive Administered Medications - up to 3 most recent administrations Medication Order MAR Action Action Date Dose Rate Site iohexol (OMNIPaque) 300 MG/ML injection 100 mL 100 mL, Intravenous, Once in imaging, 1 dose, Starting on Mon06/30/21 at 1150, Until Mon06/30/21 at 1234, Routine, Imaging Protocol Orders Given 06/30/2021 12:34 PM EST 100 mL documented in this encounter Additional Health Concerns Assessment Noted Time A fall risk assessment has been complete d for the patient 06/30/2021 2:57 PM EST documented as of this encounter Care Teams Sequencing Machine Operator Relationship Specialty Start Date End Date Leny Valdes DO [address] [place] [id number] PCP - General 12/11/20 12/13/21 Aliyah Valencia MD [address] [place] [address] Referring Physician 03/10/21 documented as of this encounter
--- OUTSIDE RECORDS SUMMARY | 2024-07-10 12:03 | XMS_ITS | Encounter Summary ---
Author Organization Healthcare Address [address] [place] [address] Care Team Providers Care Director Records Management Name Role Phone ValdesLeny Lida CAMERON Primary Care Provider [phone] Aliyah Valencia MD Unavailable [phone] Encounter Details Date Type Department Care Team (Latest Contact Info) Description 03/31/2021 Travel Social History Tobacco Use Types Packs/Day [...] Gynecology [address] [place] [address] Penelope Carmona MD [address] [facility] [address] [place] [address] 08/05/2024 9:30 AM EST Appointment [facility] 1 [address] [place] [address] 02/26/2025 9:30 AM EDT Appointment [facility] [address] [facility] [address] [place] [address] 02/26/2025 10:30 AM EDT Office Visit [facility] Breast Care Center [address] [facility], 2nd [place] [address] Berenice Resendez, DROP WIRER [address] [facility] [address] [place] [address] documented as of this encounter Visit Diagnoses Not on filedocumented in this encounter Additional Health Concerns Assessment Noted Time A fall risk assessment has been complete d for the patient 03/31/2021 3:26 PM EDT documented as of this encounter Care Teams Director Records Management Relationship Specialty Start Date End Date Leny Valdes DO [address] [place] [address] PCP - General 12/11/20 12/13/21 Aliyah Valencia MD [address] [place] [place] [address] Referring Physician 03/10/21 documented as of this encounter
--- OUTSIDE RECORDS SUMMARY | 2024-07-10 12:03 | XMS_ITS | Encounter Summary ---
Author Organization [facility] Address [address] [place], [place] [id number] Care Team Providers Care Trademark Affixer Name Role Phone Leny Valdes DO Primary Care Provider [phone] Encounter Details Date Type Department Care Team (Late Contact Info) Description 12/09/2020 Orders Only [facility] [address] [facility], 2nd [place] [address] Cara Greene MD [address] [facility] [address] [facility] [address] [place] [address] Malignant neoplasm of left breast in female, estrogen receptor positive, unspecified site of breast (CMS/HCC) (Primary Dx) Social History Tobacco Use Types Packs/Day Years Used Date Smoking Tobacco: Former Comments Unknown Sex and Gender Information Value Date Recorded Sex Assigned at Not on file Legal Sex Female 8:51 PM EDT Gender Identity Not on file Sexual Orientation Not on file documented as of this encounter Plan of Treatment Upcoming Encounters Date Type Department Care Team (Late Contact Info) Description 08/05/2024 8:00 AM EST Office Visit [facility] [address] [facility] [address] [place] [address] Penelope Carmona MD [address] [facility] [address] [facility] [address] [place] [address] 08/05/2024 9:30 AM EST Appointment [facility] [address] [place] [address] 02/26/2025 9:30 AM EDT Appointment [facility] [address] [place] [address] 02/26/2025 10:30 AM EDT Office Visit [facility] [address] [facility], [address]nd [place] [address] Berenice Resendez, MOTORCYLES FINAL INSPECTOR [address] [facility] [address] [place] [address] documented as of this encounter Visit Diagnoses Diagnosis Malignant neoplasm of left breast in female, estrogen receptor positive, unspecified site of breast (CMS/HCC)- Primary documented in this encounter Care Teams Trademark Affixer Relationship Specialty Start Date End Date Leny Valdes DO [address] [place] [address] PCP - General 12/11/20 12/13/21 documented as of this encounter
--- OUTSIDE RECORDS SUMMARY | 2024-07-10 12:03 | XMS_ITS | Encounter Summary ---
Author Organization [facility] Address [address] [id number] Care Team Providers Care Supervisor Sign Shop Name Role Phone LucioNurafany Hilton DO Primary Care Provider [phone] Aliyah Valencia MD Unavailable [phone] Reason for Visit * Reason Comments Follow-up Breast Cancer Injections * Episode Based Medications (Routine) - Authorized Specialty Diagnoses / Procedures Referred By Contac t Referred To Contact Diagnoses Malignant neoplasm of left breast in female, estrogen receptor positive, unspecified site of breast (CMS/HCC) Osteopenia, unspecified location History of aromatase inhibitor therapy Procedures DENOSUMAB Ely Oseguera, RESIDENTIAL INTERIOR DESIGNER [address] [facility] [address] [place] [address] Phone: tel: fax: [facility] Infusion Clinic [address] [place] [address] Phone: tel: Referral ID Status Reason Start Date Expiration Date V isits Requested Visits Authorized [id number] Authorized 12/11/2020 07/02/2025 1 11 Encounter Details Date Type Department Care Team (Late st Contact Info) Description 06/14/2021 2:20 PM EST Office Visit [facility] Breast Care Center [address] [facility] 2nd [place] [address] Cara Romero MD [address] [facility] Joelle [facility] [address] [place] [address] Malignant neoplasm of overlapping sites of left breast in female, estrogen receptor positive (CMS/HCC) (Primary Dx); Malignant neoplasm of left breast [...] Sign Reading Time Taken Comments Blood Pressure 117/58 06/14/2021 3:03 PM EST Pulse 91 06/14/2021 3:03 PM EST Temperature - - Respiratory Rate 16 06/14/2021 3:03 PM EST Oxygen Saturation - - Inhaled Oxygen Concentration - - Weight 83.3 kg (183 lb 10.3 oz) 06/14/2021 3:03 PM EST Height - - Body Mass Index 31.92 03/31/2021 3:26 PM EDT documented in this encounter Miscellaneous Notes * Progress Notes - Cara Romero MD - 06/14/2021 2:20 PM EST ONCOLOGY FOLLOW UP NOTE Patient Name: Daniela John Date of : 1945 Encounter date: 06/19/2021 Daniela John is a 75 y.o. female who presents for scheduled medication monitoring and continuingoncology care. Current Treatment Plan: Anastrozole 1 mg daily History of Present Illness: Oncology History Overview [...] were negative for metastatic disease. ER and GA were strongly positive and HER-2 was negative. [...] ER positive in 90% of the cells, GA positive in 95% of cells andHER-2 negative by IHC at 0. On 10/04/2016 she underwent a left needle localized lumpectomy. Lemmon lymph node biopsy was not performed as [...] vagina). Initiated neoadjuvant chemo with carbo/Taxol per WATER CHEMIST followed by BSO/Omentectomy and adjuvant Carbotaxol. Recurrence in March 2019. Treated with carbo initially followed by Olaparib. 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 She is currently off of therapy. She follows with Dr. Hutchins in Material Control Clerk/Onc. Malignant neoplasm of left breast in female, estrogen receptor positive (CMS/HCC) 05/28/2001 Cancer Staged Staging form: Breast, AJCC 8th Edition, Pathologic stage from 05/28/2001: pT1c, pN0, cM0, G2, ER+, GA+, HER2: Unknown - Signed by Cara Romero MD on 06/19/2021 10/05/2016 Cancer Staged Staging form: Breast, AJCC 8th Edition, Pathologic stage from 10/05/2016: Stage Unknown (rpT1c, pNX, cM0, G2, ER+, GA+, HER2-) - Signed by Cara Romero MD on 06/19/2021 12/09/2020 Initial Diagnosis Malignant [...] additional cycles of Carbo/Taxol 09/12/2018 - Ca125 71-31-90-9-8 - Post treatment CT 10/01/2018 JARED 09/2018 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 She does have a few concerns as relates to her history of ovarian cancer and is scheduled to follow-up with Dr. Hutchins in early June with scans. She denies arthralgias or myalgias. She denies nausea or vomiting. She has a DEXA scan performed on a regular basis with her associate publisher outside of . ROS: Review of Systems Constitutional: Negative. HENT: Negative. Eyes: Positive for eye problems (Thyroid eye disease). Respiratory: Negative. Cardiovascular: Negative. Neurological: Negative. Hematological: Negative. Psychiatric/Behavioral: Negative. As per HPI and above. All other systems reviewed and were negative. Reviewed Past Medical History/Past Surgical History, Current Medications/Allergies, Family and Social History; unchanged from last clinic visit of 06/08/2020 or updated as indicated. Allergies and Adverse Drug Reactions: Calcium, Morphine, and Sulfacetamide Medications: Current Outpatient Medications Medication Instructions ??? anastrozole (ARIMIDEX) 1 mg, Oral, Daily, Swallow whole with a drink of water. ??? aspirin 81 mg, Oral, Daily ??? biotin 1,000 mcg, Oral, Daily ??? denosumab (Prolia) 60 MG/ML injection Prolia ??? ergocalciferol (VITAMIN D-2) 50,000 Units, Oral, Weekly ??? famciclovir (FAMVIR) 125 mg, Oral, Daily ??? levothyroxine (SYNTHROID, LEVOXYL) 75 mcg, Oral, Daily before breakfast ??? lisinopril 5 mg, Oral, Daily ??? potassium chloride CR (Klor-Con M10) 10 MEQ ER tablet 10 mEq, Oral, Daily, Do not crush or chew. ??? senna-docusate sodium (Senokot-S) 8.6-50 MG tablet 2 tab(s) orally 2 times a day ??? simvastatin (ZOCOR) 40 mg, Oral, Nightly ??? triamcinolone (Kenalog) 0.025 % cream 1 application, Topical, 2 times daily Performance Status: 2: Ambulatory and capable of all self-care but unable to work. Up & about >50% waking hours Visit Vitals BP 117/58 Pulse 91 Resp 16 Wt Readings from Last 2 Encounters: 06/14/21 83.3 kg (183 lb 10.3 oz) 03/31/21 81.5 kg (179 lb 10.8 oz) Body mass index is 31.92 kg/m??. Body surface area is 1.93 meters squared. Physical Examination: GENERAL: Obese female alert and [...] site. No axillary adenopathy is appreciated bilaterally. ABDOMEN: Obese, Soft, nontender with positive bowel sounds. No masses are palpated. There is no organomegaly appreciated. EXT: 1+ pitting ankle edema is present bilaterally. Pulses are 2+ and equal bilaterally MUSCULOSKELETAL: There is no spine tenderness or CVA tenderness SKIN: No rashes. Multiple hyperkeratotic pigmented lesions of the skin. No bruising. NEURO: Alert, oriented. There are no focal deficits. PSYCH: Judgment and insight are unimpaired. Mood and affect appropriate Daniela John is a 75 y.o. female with Cancer Staging Carcinoma of [...] from 05/28/2001: pT1c, pN0, cM0, G2, ER+, GA+, HER2: Unknown - Signed by Cara Romero MD on 06/19/2021 - Pathologic stage from 10/05/2016: Stage Unknown (rpT1c, pNX, cM0, G2, ER+, GA+, HER2-) - Signed by Cara Romero MD on 06/19/2021 Impression: 1. Locally recurrent T1c Nx left ER/GA positive, HER-2 negative breast cancer 2. History of osteopenia, T score - 0.9 -on prolia q 6 months 3. Poorly differentiated adenocarcinoma of Mullerian primary, recurrent 4. History of antineoplastic chemotherapy 5. Encounter for monitoring antineoplastic hormone therapy: Anastrozole 1 mg daily Plan: Ms. John continues in remission from locally recurrent left hormone receptor positive, HER2 negative breast cancer. She will complete 5 years of adjuvant anastrozole therapy in December 2021. She willcontinue on Prolia every 6 months until completion of anastrozole. A dose was administered in clinic today. Next mammogram is due in 6 months. She will see Dr. Bueno at that time. BENJAMIN per PCP at [facility]. She continues to follow with assignment desk assistant Oncology for poorly differentiated adenocarcinoma of Mullerian primary. As always, she is encouraged to contact our office at the number provided for any additional questions or concerns. She voiced understanding of the plan, asked appropriate questions, and all questions were answered to her satisfaction today. Cara Romero MD journeyman sheet metal worker Division of Medical Oncology [address] [place] [address], [place] [address] phone [phone] fax documented in this encounter Plan of Treatment Upcoming Encounters Date Type Department Care Team (Late st Contact Info) Description 08/05/2024 8:00 AM EST Office Visit [facility] [address] [place] [address] Penelope Carmona MD [address] [facility] [address] [facility] [address] [place] [address] 08/05/2024 9:30 AM EST Appointment [facility] [address] [place] [address] 02/26/2025 9:30 AM EDT Appointment [facility] [address] [facility] [address] [place] [address] 02/26/2025 10:30 AM EDT Office Visit [facility] Breast Care Center [address] [facility]nd [place] [address] Berenice Resendez, RESIDENTIAL INTERIOR DESIGNER [address] [facility] [address] [facility] [address] [place] [address] documented as of this encounter Results * US Breast Limited [...] BREAST DIAGNOSTIC TOMOSYNTHESIS BILATERAL ordered by CARA ROMERO [id number] CLINICAL INDICATION: 76-year-old presenting for BI-RADS 3 [...] BREAST DIAGNOSTIC TOMOSYNTHESIS BILATERALordered by CARA ROMERO, [id number] CLINICAL INDICATION: 76-year-old presenting for BI-RADS 3 [...] MD IMG BI PROCEDURES Final Resul t * Mammography Breast Diagnostic Tomosynthesis Bilateral (12/14/2021 [...] BREAST DIAGNOSTIC TOMOSYNTHESIS BILATERAL ordered by CARA ROMERO [id number] CLINICAL INDICATION: 76-year-old presenting for BI-RADS 3 [...] BREAST DIAGNOSTIC TOMOSYNTHESIS BILATERALordered by CARA ROMERO, [id number] CLINICAL INDICATION: 76-year-old presenting for BI-RADS 3 [...] in female, estrogen receptor positive (CMS/HCC)- Primary Malignant neoplasm of left breast in female, estrogen receptor positive, unspecified site of breast (CMS/HCC) Malignant neoplasm of overlapping sites of left breast in female, estrogen receptor positive (CMS/HCC) Malignant neoplasm of overlapping sites of left breast in female, estrogen receptor positive (CMS/HCC) documented in this encounter Administered Medications Inactive Administered Medications - up to 3 most recent administrations Medication Order MAR Action Action Date Dose Rate Site denosumab (Prolia) injection 60 mg 60 mg, Subcutaneous, Once, Avoid vigorous shaking of syringe; Prior to administration, bring to room temperature in original container for about 15 to 30 minutes; Administer via subcutaneous route in upper arm, upper thigh, or abdomen, On 06/14/21 at 1545, For 1 doseIndications:Malignan t neoplasm of left breast in female, estrogen receptor positive, unspecified site of breast (CMS/HCC) New Syringe/Cartridge 06/14/2021 3:34 PM EST 60 mg Right Upper Arm (Back) documented in this encounter Additional Health Concerns Assessment Noted Time A fall risk assessment has been complete d for the patient 06/14/2021 3:00 PM EST documented as of this encounter Care Teams Supervisor Sign Shop Relationship Specialty Start Date End Date Leny Valdes DO [address] [place], [place] [id number] PCP - General 12/11/20 12/13/21 Aliyah Valencia MD [address] [place] [place] [address] Referring Physician 03/10/21 documented as of this encounter
--- OUTSIDE RECORDS SUMMARY | 2024-07-10 12:03 | XMS_ITS | Encounter Summary ---
Author Organization [facility] Address [address] [place] [address] Care Team Providers Care Administration Assistant Name Role Phone Leny Valdes DO Primary Care Provider [phone] Aliyah Valencia MD Unavailable [phone] Flaquita Dorsey DO Primary Care Provider + [phone] Conrado Iqbal MD Unavailable Encounter Details Date Type Department Care Team (Late Contact Info) Description 09/06/2019 Orders Only External Location [address] [place] [address] Provider, External Social History Tobacco Use Types Packs/Day Years [...] AM EST Office Visit [facility] [address] [facility] [address] [place] [address] Penelope Carmona MD [address] [facility] [address] [facility] [address] [place] [address] 08/05/2024 9:30 AM EST Appointment [facility] [address] [place] [address] 02/26/2025 9:30 AM EDT Appointment [facility] [address] [place] [address] 02/26/2025 10:30 AM EDT Office Visit [facility] [address] [facility], [address] [place] [address] Berenice Resendez, SOFA BACK UPHOLSTERER [address] [facility] [address] [place] [address] documented as of this encounter Procedures Procedure Name Priority Date/Time Associated Diagnosis Comments CT ABDOMEN PELVIS W IV CONTRAST 09/06/2019 2:44 PM EST documented in this encounter Results * CT Abdomen Pelvis w IV Contrast (09/06/2019 2:44 PM EST) Anatomical Region Laterality Modality Abdomen, Pelvis Computed Tomogra phy 09/06/2019 2:44 PM EST External Provider IMG CT PROCEDURES Final Result documented in this encounter Visit Diagnoses Not on filedocumented in this encounter Additional Health Concerns Infection Onset Date Last Indicated Resolved Time Respiratory Rule-Out 05/17/2024 05/17/2024 024 11:59 PM EDT documented as of this encounter Care Teams Administration Assistant Relationship Specialty Start Date End Date Leny Valdes DO [address] [place] [address] PCP - General 12/11/20 12/13/21 Flaquita Dorsey, DO [address] [place] [address] PCP - General 12/14/21 Aliyah Valencia MD [address] [place] [address] Referring Physician 03/10/21 Conrado Iqbal MD [address] [place] [address] Service Attending Cardiology 08/19/22 documented as of this encounter
--- OUTSIDE RECORDS SUMMARY | 2024-07-10 12:03 | XMS_ITS | Encounter Summary ---
Author Organization Healthcare Address [address] [id number] Care Team Providers Care Pathology Specialist Name Role Phone Unavailable Primary Care Provider Unavailabl e Encounter Details Date Type Department Care Team (Late st Contact Info) Description 06/18/2018 11:04 AM EST - 06/26/2018 3:03 PM [facility] Hospital Encounter P[facility] A Inpatient [facility] [address] [place] [address] Penny Carmona MD [address] [facility] [address] [place] [address] Malignant neoplasm of right ovary (CMS/HCC) Social History Tobacco Use Types Packs/Day Years Used Date Smoking Tobacco: Never Assessed Comments Unknown Sex and Gender Information Value Date Recorded Sex Assigned at Not on file Legal Sex Female 8:51 PM EDT Gender Identity Not on file Sexual Orientation Not on file documented as of this encounter Miscellaneous Notes * Social Care Assessment Summary - ProviderMichell MD - 06/26/2018 12:00 AM EST Patient Name: Laura CHAMBERLAIN Date of : 1945 Discharge Note Discharge Note Who Will Provide Assistance Post-Discharge? Answers: Family sister How Many Hours is/are the Caregiver(s) Available? Answers: 24 Hours Discharge Disposition Answers: Home Is Home Health Needed? If Yes, Specify Agency Name and Service Needed. Answers: No Is DME Needed? If Yes, Select Type of Equipment Needed and DME Company. Answers: No DME Needs I Certify that the Patient has been Provided with a Choice for DME, Home Health, Infusion Services and Facility. Answers: Not Applicable Is This a High-Risk LACE Patient? Answers: No Follow Up Appointments Scheduled? Answers: Yes confirmed Does the Patient Have Transportation to Follow up Appointments? Answers: Yes Scholarship? Answers: No BHARATH? Answers: No Medicare Second Notice? Answers: Yes Were Services Declined? Answers: No Additional Comments: Notes: POC reviewed with MD today. Per Dr. Frankel, pt medically ready for dc today. Pt had not origianlly dc'd as planned per d/t not passing flatus. CM met with pt and pt's sister who veronica be providing transportation and asisstance after dc as planned previously. Pt aware and agreeable with dc plan. Medicare 2nd notice given. No further questions. dc today. Electronically signed by: Familia Oneal * Discharge Summary - Penny Carmona - 06/26/2018 12:00 AM EST HOSPITALIZATION: Admit Date:18-Jun-2018 Discharge Date:26-Jun-2018 Discharge Atttending Penny Rebolledo MD Admitting DiagnosisOvarian cancer DISCHARGE DIAGNOSIS: Discharge Summary Final Active Diagnosis PS: Ovarian cancer: Reason for Hospitalization 72 yo with adenocarcinoma, likely ovarian. She was admitted after bilateral salpingectomy and oophorectomy, omentectomy, and debulking on 06/18/18. She received neoadjuvant chemotherapy. HOSPITAL COURSE: Hospital Course Ms. 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 The operation was uncomplicated and the patienttolerated the procedure well. See operative report for full details. Final pathology pending at time of discharge. Following surgery, the patient received routine post-operative care per [facility] protocol. Home medications were restarted. The patient was treated with heparin and Pepcid for DVT and GI prophylaxis, respectively. Her pain was initially controlled with an epidural while she was NPO and then transitioned to oral pain medication. Her postoperative course was complicated by delayed returnof bowel function. She had persistent nausea and vomiting with absent flatus until POD#7. Upon discharge on POD#8, patient was tolerating po, ambulating and voiding spontaneously. She is scheduled tofollow up in clinic with Dr. Hutchins in 3-4 weeks. DIAGNOSTIC AND PROCEDURAL EVENTS: - Bilateral salpingectomy-oophorectomy omentectomy debulking DISCHARGE INFORMATION: DispositionHome Discharge Conditionstable (signs or symptoms of potential problems absent or manageable) Discharge MedicationsFinal Medication List for Discharge Summary Discharge Medicationsacetaminophen 325 mg oral tablet 2 tab(s) orally every 4 hours, As needed, Pain; use first. Give with NSAIDs if available. anastrozole 1 mg oral tablet 1 tab(s) orally once a day aspirin 81 mg oral delayed release tablet 1 tab(s) orally once a day docusate sodium 100 mg oral capsule 1 cap(s) orally 2 times a day enoxaparin 40 mg/0.4 mL injectable solution 40 milligram(s) subcutaneous once a day flax seed 2000 milligram(s) orally once a day furosemide 20 mg oral tablet 1 tab(s) orally once a day ibuprofen 600 mg oral tablet 1 tab(s) orally every 6 hours, As needed, Pain; use first. Give with acetaminophen if available. lisinopril 5 mg oral tablet 1 tab(s) orally once a day Multiple Vitamins oral tablet 1 tab(s) orally once a day oxyCODONE 5 mg oral tablet 1 tab(s) orally every 4 hours, As needed, Pain unresponsive to other medications/interventions. Hold for sedation. potassium chloride 10 mEq oral capsule, extended release 2 cap(s) orally once a day Prolia 60 mg/mL subcutaneous solution 1 inch(es) subcutaneous every 6 months simvastatin 40 mg oral tablet 1 tab(s) orally once a day (at bedtime) Synthroid 50 mcg (0.05 mg) oral tablet 1 tab(s) orally once a day Vitamin D2 50,000 intl units (1.25 mg) oral capsule 1 cap(s) orally once a week Xiidra 5% ophthalmic solution 1 drop(s) to each affected eye 2 times a day Zofran ODT 4 mg oral tablet, disintegrating 1-2 tab(s) orally every 8 hours, As Needed for nausea Pending ResultsPending Results Pending Results and/ or Follow-up RequiredFinal pathology of surgical speciments DISCHARGE INSTRUCTIONS: Lifting: No lifting more than 10 for 45 days. Activity: move around as you are able. Wound or Incision Care: Wash your wound with mild soap and water once a day; pat dry; do not rub. Reason to call: feels warm or hot to the touch, is red or dark pink, is tight or swollen and looks shiny, becomes more tender or sore to the touch, wound smells bad and wound is draining pus, bleeding or coming open. Bathing: Shower any time; keep wound or bandage dry. Avoid soaking your wound; do NOT take a tub bath. Other: No tub baths. Instructed patient to call if: Temperature is above 101. Pain is not relieved by medications. You are throwing up or have diarrhea for more than 24 hours. Medication Instructions: Take Medication exactly as instructed. Do not take any medications that have not been ordered for This means do not take other people's medication, illegal drugs or substances, or even more aspirin than has been ordered. Recommended Follow Up Instructions: Follow Up Instructions: Follow up with: Dr Hutchins. in/on 16-Jul-2018 10:45 AM. - Address/Phone Number: [address] [phone]. ATTESTATION STATEMENTS: Attending Attestation Statement: I saw and evaluated the patient. I discussed the case with the resident/fellow and agree with the findings and plan as documented. Electronic Signatures: Penny Hutchins MD (Attending) (Signed 26-Jun-18 17:50) Authored: HOSPITALIZATION, DISCHARGE INFORMATION, Recommended Follow Up Instructions, ATTESTATION STATEMENTS Co-Signer: HOSPITALIZATION, DISCHARGE DIAGNOSIS, HOSPITAL COURSE, DIAGNOSTIC AND PROCEDURAL EVENTS,DISCHARGE INFORMATION, DISCHARGE INSTRUCTIONS Venita Frankel MD (Resident) (Signed 26-Jun-18 12:37) Authored: HOSPITALIZATION, DISCHARGE DIAGNOSIS, HOSPITAL COURSE, DIAGNOSTIC AND PROCEDURAL EVENTS, DISCHARGE INFORMATION, DISCHARGE INSTRUCTIONS Last Updated: 26-Jun-18 17:50 by Penny Hutchins MD (Attending) * Procedures - ProviderMichell MD - 06/24/2018 12:00 AM EST PICC Insertion: PICC Insertion Location: Bedside. This Ultra Sound Guided PIV procedure was performed by Dean Pastor RN on 24-Jun-2018 08:20. Indications for this procedure included difficult access. Risks, benefits and alternatives to the procedure have been discussed and informed consent was obtained. Hand hygiene performed. The site was prepped with chlorhexidine under sterile conditions. The patient was covered with a full-body, fenestrated drape. The clinicians performing this procedure donned a hat, mask, sterile gown and sterile gloves. Additional Comments: 20g USG PIV placed in right forearm X1 attempt, flushes good without pain RN informed. Moderate Sedation: Vital Signs: Vital SignsPlease reference nursing procedural sedation documentation. Electronic Signatures: Dean Pastor (Nurse) (Signed 24-Jun-18 08:37) Authored: Peripherally Inserted Central Catheter, Moderate Sedation Last Updated: 24-Jun-18 08:37 by Dean Pastor (Nurse) * Social Care Assessment Summary - Michell Nolasco MD - 06/20/2018 12:00 AM EST Patient Name: Laura CHAMBERLAIN Date of : 1945 Discharge Note Discharge Note Who Will Provide Assistance Post-Discharge? Answers: Family sister and sister in law How Many Hours is/are the Caregiver(s) Available? Answers: 24 Hours Discharge Disposition Answers: Home live alone but sister will stay with her after dc Is Home Health Needed? If Yes, Specify Agency Name and Service Needed. Answers: No Is DME Needed? If Yes, Select Type of Equipment Needed and DME Company. Answers: No DME Needs I Certify that the Patient has been Provided with a Choice for DME, Home Health, Infusion Services and Facility. Answers: Not Applicable Is This a High-Risk LACE Patient? Answers: No Follow Up Appointments Scheduled? Answers: Other pending MD recs for f/u Does the Patient Have Transportation to Follow up Appointments? Answers: Yes Scholarship? Answers: No BHARATH? Answers: No Medicare Second Notice? Answers: Not applicable Were Services Declined? Answers: No Additional Comments: Notes: POC reviewedw with team today. Per Dr. Frankel, pt veronica likely dc if passing flatus today and will not need HH or DME for dc planning. CM met with pt and pt's sister at bedside. Pt's sister will provide transportation home at time of dc and sister and sister in law will assist pt 24 hr after dc and PRN. Pt aware and agreeable with dc plan. Instructed pt how to reach CM if needed. No further questions. Electronically signed by: Familia Oneal * Social Care Assessment Summary - Michell Nolasco MD - 06/19/2018 12:00 AM EST Patient Name: Laura CHAMBERLAIN Date of : 1945 Initial Evaluation Note Initial Evaluation Note Anticipated Discharge Date 2018-06-20 00:00 Information Obtained From: Answers: Patient Current Living Situation Answers: Alone Dwelling Type Answers: House - Single Floor Housing Circumstances - Select All That Apply Answers: None applicable What is Patient's Plan at Discharge Answers: Return to Home Who Will Provide Assistance Post-Discharge? Answers: Family sister and sister in law How Many Hours is/are the Caregiver(s) Available? Answers: 24 Hours Functional Status Prior to Hospitalization Answers: Partially Independent Does Patient Have Home Health? If Yes, Specify Home Health Agency. Answers: No Does the Patient Have Home Infusion or Dialysis? If Yes, Specify Agency. Answers: No Home Infusion, Answers: No Dialysis Does Patient Have Any of the Following Hospital Equipment or DME? If Yes, Specify Type of Equipment/DME. Answers: Wheelchair, Answers: Other shower chair Does Patient Have Current DME Provider? If Yes, Specify Company. Answers: No Does Patient have a Primary Care Provider? Answers: Yes (if not listed or incorrect, please place Change ADT order in [facility] for registration to update PCP) Transportation Home at Time of Discharge Answers: Family/Friend Transportation to Follow up Appointments Answers: Family or Friend will Provide Does Patient Have Living Will/Advance Directives? If Yes, Instruct Patient/Family to Provide a Copy. Answers: Yes Does Patient Have a Power of Manufacturing Advisor? If Yes, Please Specify Who and Instruct Patient/Family to Provide a Copy of Form. Answers: Yes, Medical [place] per [place] [facility] Answers: Yes, Financial [place] per pt- [place] [facility] [place] Patient Have a Guardian? If Yes, Please Specify Who and Request a Copy of Legal Form. Answers: No Additional Comments: Notes: POC reviewed with multi-disciplinary team today. Per Dr. Hutchins, pt not medically ready. CM met with pt at bedside today. Pt lives alone in a single story home in [place], [place] with 2 steps to enter. but reports hse has a sister and sister in law that assist her with transportation and needs at home and will stay with her after dc. Pt deniews prev HH and has a transport w/c and a shower bench given to her from another family member. Pt has Medicare A/B and [employer] insurance. No barriers anticipated at time of dc. Instructed pt how to reach CM if needed. No further questions. CM will cont to follow for dc planning needs. Electronically signed by: Familia Oneal * Op Note - Michell Nolasco MD - 06/18/2018 12:00 AM EST [place], [place] OPERATIVE REPORT Patient Name: MURIEL CHAMBERLAIN Hospital Number: [id number] Date of : 1945 Date of Admission: 06/18/2018 Date of Procedure: 06/18/2018 Attending Physician: PENNY HUTCHINS MD Patient Location: [address] [id number] A PREOPERATIVE DIAGNOSIS: Ovarian cancer. POSTOPERATIVE DIAGNOSIS: Ovarian cancer. PROCEDURES PERFORMED: Bilateral salpingo-oophorectomy, greater omentectomy for ovarian cancer. 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 She has received 3 cycles of neoadjuvant chemotherapy. She is here for interval debulking. PRIMARY SURGEON: Penny Hutchins MD ASSISTANTS: 1. Adelina Bhatt MD 2. Dieter Quintanilla MD ANESTHESIA: General endotracheal anesthesia. DESCRIPTION OF FINDINGS: 1. A 14 cm cystic mass of the right ovary, densely adherent to the bladder, the vaginal cuff, the sigmoid colon, and the rectum. 2. Left ovary small and grossly normal. 3. No peritoneal studding or nodules noted, including smooth upper abdominal surfaces such as diaphragm and liver. 4. Omentum grossly normal - infracolic greater omentectomy performed. 5. No other abnormalities of small bowel or colon. 6. No grossly enlarged lymph nodes. 7. No ascites. 8. Complete gross resection. SPECIMENS REMOVED: Bilateral ovaries, tubes, and omentum. ESTIMATED BLOOD LOSS: 100 mL. DRAINS: Lancaster catheter. COMPLICATIONS: None immediate. DESCRIPTION OF PROCEDURE: After informed consent was confirmed, the patient was taken to the operating room where general endotracheal anesthesia was administered. The patient was placed in dorsal supine position. A Lancaster catheter was anchored. She was prepped and draped in normal sterile fashion. A timeout was performed. A scalpel was used to create a vertical midline skin incision from the pubic symphysis up and around the umbilicus. The subcutaneous tissues were divided sharply with the scalpel. Bovie cautery was used to cauterize any areas of bleeding in the subcutaneous space. The fascia was incised at the midline. The midline of the rectus muscles was identified and . The posterior sheath was elevated and divided sharply, followed by the peritoneum. Upon entering the abdominal cavity, the omentum was adherent to the anterior abdominal wall. This was carefully dissected free circumferentially using Bovie cautery. The peritoneal and fascial incisions were extended superiorly and inferiorly for adequate visualization. The patient was then placed into Trendelenburg. A Bookwalter retractor was assembled. Upon entering the abdominal cavity, there was the 14 cm cystic mass that was adherent to the sigmoid, the rectum, the bladder, the sidewall and posterior. We began by elevating the epiploica of the sigmoid colon and sharply dissecting them free from this mass. This was done starting approximately midline and working to the left of the mass. We could also identify a plane between the mass and the bladder. This was also dissected sharply with Metzenbaum scissors. When we had identified the correct plane around this mass, Bovie cautery was used to cauterize some of its attachments. It was also adherent to the cecum. These adhesions were divided sharply with Metzenbaum scissors. The IP ligament was identified during this dissection. The retroperitoneal space was explored. We initially had difficulty finding the ureter; therefore, more dissection was performed, during which the mass was ruptured. There was approximately 1 liter of greenish fluid within this ovary. This was removed with suction. Afterward, we could identify her external iliac arteries. Dissection was performed, and we were able to identify her ureter. Her ovarian vessels were skeletonized. They were clamped with right angle clamps x2. They were divided and doubly ligated with two 2-0 silk ties. The specimen side was also ligated. At this time, we moved to separate the sigmoid colon from the pelvis. This was done by identifying the plane where it was attached to the pelvic sidewall. This was divided with Bovie cautery. We were able to identify the left tube and ovary under the mesentery of the sigmoid colon. This was grasped with a Kezia clamp and elevated. The retroperitoneal space was entered. The ureter was identified. We were then able to further dissect the sigmoid colon off of the tube and ovary and restore what was the posterior leaf of the broad ligament. We then clamped the ovarian vessels. After again identification of the ureter, this pedicle was divided and doubly ligated with two 2-0 silk ties. The course of the ureter was then identified and followed. It was free from the remainder of the ovary. This tube and ovary were then divided from any remaining attachments using Bovie cautery. It was passed off the field for permanent pathology. Returning to the right tube and ovary, we carefully dissected it free from the remainder of the rectum and the bladder and the right pelvic sidewall. This was done with both Bovie cautery, blunt dissection and sharp dissection with Metzenbaum scissors until it was free from all attachments. It was then passed off the field for permanent pathology. The pelvis was then copiously irrigated. Bovie cautery was used to cauterize any areas of bleeding. The IP ligaments were inspected and noted to be hemostatic. The bowel was then returned to its anatomic location. The cecum was identified, followed by the terminal ileum. We ran the small bowel and found no evidence of active disease. Palpation of the upper abdomen did not reveal any cancer implants. The omentum and transverse colon were identified. The omentum was freed from the transverse colon at the avascular plane using Bovie cautery. Pedicles were then created, clamped with a Perry clamp, divided, and ligated with 2-0 silk ties until the omentum was free from all attachments. It was then passed off the field for permanent pathology. The omentectomy bed was inspected and noted to be hemostatic. We again inspected the pelvis, found it remained hemostatic. Surgicel SNoW was placed in the bilateral retroperitoneal spaces where blunt dissection had been performed. When placing the bowel back into its anatomic location, we identified that the sigmoid colon was attached to itself through adhesions. These were divided with Bovie cautery. The bowel was then returned to its anatomic location. The Bookwalter retractor was removed. The fascia was closed using #1 looped Maxon suture in a modified Smead-Shetty fashion. The subcutaneous tissues were irrigated, and Bovie cautery was used to cauterize any areas of bleeding. The subcutaneous tissues were reapproximated using 2-0 Polysorb. The skin was closed using 3-0 Polysorb in a subcuticular fashion. Mastisol and Steri-Strips were applied to the skin incision, followed by a Covaderm. The patient tolerated the procedure well. Sponge, lap, and needle counts were correct x2, and the patient was transported to PACU in stable condition. Electronically Signed By: PENNY HUTCHINS MD 06/20/2018 06:53 P PENNY HUTCHINS MD Attending Surgeon, THREAD SPOOLER Dictated By: ADELINA BHATT MD 06/19/2018 03:11 P ADELIAN BHATT MD Dictating Provider, THREAD SPOOLER TIB/wmx Dictated Date/Time: 06/18/2018 16:26 Curing Oven Tender Date/Time: 06/18/2018 20:55 Document Number: [id number] Job Number: [id number] REFERRING PHYSICIAN: PRIMARY CARE PHYSICIAN: GUZMAN RIVERO MD [address]- REFERRING PHYSICIAN: DICTATED CC: Document is Signed NOTE: supplied by interface * Op Note - Penny Carmona - 06/18/2018 12:00 AM EST Brief Operative Progress Note: PRE-OP DIAGNOSIS: Ovarian cancer. POST-OP DIAGNOSIS: Same. 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 s/p 3 cycles neoadjuvant chemo. Here for interval debulking. PRIMARY SURGEON: Cuong. GLASS VIAL FILLER(S): Dwight Bhatt. ANESTHESIA: GA-ET. DESCRIPTION OF FINDINGS: 1. 14 cm cystic mass of right ovary, densely adherent to bladder, vaginal cuff, sigmoid colon and rectum 2. Left ovary small and grossly normal 3. No peritoneal studding or nodules noted (including smooth upper abdominal surfaces such as diaphragm and liver 4. Omentum grossly normal - infracolic greater omentectomy performed 5. No abnormalities of small bowel or colon 6. No grossly enlarged lymph nodes 7. No ascites 8. Complete gross resection. SURGICAL PROCEDURES PERFORMED: BSO/greater omentectomy for ovarian cancer. SPECIMENS/TISSUES REMOVED: bilateral ovaries, tubes, omentum. ESTIMATED BLOOD LOSS: 100 ml. DRAINS: None [place]. EVENTS: None. COMPLICATIONS: None. Attending Attestation Statement: I saw and evaluated the patient. I discussed the case with the resident/fellow and agree with the findings and plan as documented. Procedure: I was present for the entire procedure. Electronic Signatures: Penny Hutchins MD (Attending) (Signed 18-Jun-18 15:37) Authored: General Last Updated: 18-Jun-18 15:37 by Penny Hutchins MD (Attending) * Pre-Procedure Assessment - Michell Nolasco MD - 06/18/2018 12:00 AM EST Time-Out Statements: The procedure being performed was Epidural Placement. This procedure was performed by Dr. Sutton. Time-Out is required for all procedures performed in any location, including the bedside. Site marking is required for all procedures with right/left distinction, multiple structures (as in fingers and toes), or levels (as in spinal procedures). Time-Out was called at 12:38. Anticoagulation and antiplatelet orders reviewed and confirmed. Electronic Signatures: Ting Emanuel RN (Nurse) (Signed 18-Jun-18 12:39) Authored: Time Out for Procedure Last Updated: 18-Jun-18 12:39 by Ting Emanuel RN (Nurse) * Procedures - Michell Nolasco MD - 06/18/2018 12:00 AM EST Pain Procedure: The procedure that was performed was a thoracic epidural. This procedure was performed by Qi THOMPSON 18-Jun-2018 02:50. Indications for this procedure included post-op pain. History and Physical reviewed and appropriate. Risks, benefits and alternatives to the procedure have been discussed and informed consent was consent signed. Sedative medication was not administered. Non- invasive monitors including BP cuff, pulse oximeter, etc, were applied and vital signs were monitored throughout the procedure. Hand hygiene performed. The thoracic spine area was prepped with chlorhexidine under sterile conditions. The patient was covered with fenestrated drapes/ sterile towels. The clinicians performing this procedure donned a hat, mask and sterile gown. 1% lidocaine was injected into the skin, subcutaneous tissue and ligaments by using a 25 gauge needle. Anticoagulation and antiplatelet orders reviewed and confirmed. Final Time Out performed immediately prior to procedure. A 17 gauge epidural needle was placed intothe. T9/T10 epidural space. Using a loss of resistance technique the epidural space was identified at a skin distance of 5 cm. The epidural catheter was inserted 5 into the epidural space without difficulties. The catheter was 10 cm at the skin. Aspiration through the catheter for CSF or blood was negative. The catheter was secured by using steri-strips and Tegaderm. Test dose: 1.5% lidocaine with 1:200K epi = 2 ml given and was negative. The procedure was performed without difficulty. Catheter placed at: 13:01. Negative Paresthesias throughout. The patient tolerated the procedure well with no complications. Upon completion of procedure, the patient's mental status was alert and oriented and vital signs Unremarkable. Additional Comments: H&P and medications reviewed prior to procedure. All questions answered topatient satisfaction, informed consent obtained. Patient tolerated procedure well without complications. First pass unremarkable. Moderate Sedation: Vital Signs: Vital SignsPlease reference nursing procedural sedation documentation. Attending Note/Attestation: ASSESSMENT: Acceptable candidate for epidural analgesia at Dr. Hutchins request for postoperative pain management. PLAN: Thoracic Epidural as above for post op pain per surgeon request. I was present throughout procedure. I was present for the entire procedure. Electronic Signatures: Lisa Walker (Resident) (Signed 18-Jun-18 13:08) Authored: Pain Procedure, Moderate Sedation, Attending Note/Attestation Patricia Lawson MD (Attending) (Signed 18-Jun-18 17:48) Authored: Pain Procedure, Attending Note/Attestation Co-Signer: Pain Procedure, Moderate Sedation, Attending Note/Attestation Last Updated: 18-Jun-18 17:48 by Patricia Lawson MD (Attending) documented in this encounter Plan of Treatment Upcoming Encounters Date Type Department Care Team (Late st Contact Info) Description 08/05/2024 8:00 AM EST Office Visit [facility] Gynecology [address] [facility] [address] [place] [address] Penny Carmona MD [address] [facility] [address] Lai [facility] [address] [place] [address] 08/05/2024 9:30 AM EST Appointment [facility] [address] [place] [address] 02/26/2025 9:30 AM EDT Appointment [facility] [place] [address] [address] [facility] [address] [place] [address] 02/26/2025 10:30 AM EDT Office Visit [facility] [place] [address] [facility], [address] [place] [address] Berenice Resendez, PHY THERAPIST [address] Lai [facility] [address] [place] [address] Pending Results Name Type Priority Associated Diagnoses Date /Time Type and Screen Lab STAT 8 12:23 PM EST documented as of this encounter Procedures Procedure Name Priority Date/Time Associated Diagnosis Comments CBC W/O DIFFERENTIAL Routine 06/26/2018 3:58 AM EST PHOSPHORUS, PLASMA Routine 06/26/2018 3: 58 AM EST CBC W/O DIFFERENTIAL Routine 06/25/2018 4:51 AM EST PHOSPHORUS, PLASMA Routine 06/25/2018 4: 51 AM EST MAGNESIUM, PLASMA Routine 06/25/2018 4:5 1 AM EST MAGNESIUM, PLASMA Routine 06/25/2018 4:5 1 AM EST BASIC METABOLIC PANEL, PLASMA Routine 06/25/2018 4:51 AM EST BASIC METABOLIC PANEL, PLASMA Routine 06/25/2018 4:51 AM EST CBC W/O DIFFERENTIAL Routine 06/24/2018 3:33 AM EST PHOSPHORUS, PLASMA Routine 06/24/2018 3: 33 AM EST MAGNESIUM, PLASMA Routine 06/24/2018 3:3 3 AM EST IONIZED CALCIUM, [place] Routine 06/24/2018 3:33 AM EST BASIC METABOLIC PANEL, PLASMA Routine 06/24/2018 3:33 AM EST EXTRA TUBES Routine 06/24/2018 12:01 AM EST XR ABDOMEN 1 VIEW Routine 06/23/2018 9:5 9 AM EST CBC W/O DIFFERENTIAL Routine 06/23/2018 3:42 AM EST PHOSPHORUS, PLASMA Routine 06/23/2018 3: 42 AM EST MAGNESIUM, PLASMA Routine 06/23/2018 3:4 2 AM EST IONIZED CALCIUM, [place] Routine 06/23/2018 3:42 AM EST BASIC METABOLIC PANEL, PLASMA Routine 06/23/2018 3:42 AM EST PHOSPHORUS, PLASMA Routine 06/22/2018 4: 00 AM EST IONIZED CALCIUM, [place] Routine 06/22/2018 4:00 AM EST CBC W/O DIFFERENTIAL Routine 06/22/2018 12:01 AM EST MAGNESIUM, PLASMA Routine 06/22/2018 12: 01 AM EST BASIC METABOLIC PANEL, PLASMA Routine 06/22/2018 12:01 AM EST CBC W/O DIFFERENTIAL Routine 06/21/2018 5:20 AM EST CBC W/O DIFFERENTIAL Routine 06/21/2018 3:29 AM EST IONIZED CALCIUM, [place] Routine 06/21/2018 3:29 AM EST PHOSPHORUS, PLASMA Routine 06/21/2018 3: 21 AM EST MAGNESIUM, PLASMA Routine 06/21/2018 3:2 1 AM EST BASIC METABOLIC PANEL, PLASMA Routine 06/21/2018 3:21 AM EST IONIZED CALCIUM, [place] Routine 06/20/2018 4:00 AM EST PHOSPHORUS, PLASMA Routine 06/20/2018 3: 58 AM EST MAGNESIUM, PLASMA Routine 06/20/2018 3:5 8 AM EST BASIC METABOLIC PANEL, PLASMA Routine 06/20/2018 3:58 AM EST CBC W/O DIFFERENTIAL Routine 06/20/2018 12:01 AM EST MAGNESIUM, PLASMA Routine 06/20/2018 12: 01 AM EST BASIC METABOLIC PANEL, PLASMA Routine 06/20/2018 12:01 AM EST GLUCOSE POINT OF CARE DC Routine 06/19/2018 11:07 AM EST PHOSPHORUS, PLASMA Routine 06/19/2018 4: 00 AM EST IONIZED CALCIUM, [place] Routine 06/19/2018 4:00 AM EST CBC W/O DIFFERENTIAL Routine 06/19/2018 12:01 AM EST PHOSPHORUS, PLASMA Routine 06/19/2018 12 :01 AM EST MAGNESIUM, PLASMA Routine 06/19/2018 12: 01 AM EST BASIC METABOLIC PANEL, PLASMA Routine 06/19/2018 12:01 AM EST CBC W/O DIFFERENTIAL Timed 06/18/2018 8:24 PM EST SURGPATH DATA CONVERSION Routine 06/18/2018 4:28 PM EST TYPE AND SCREEN STAT 06/18/2018 12:23 PM EST documented in this encounter Results * Phosphorus, Plasma (06/26/2018 3:58 AM EST) Phosphorus, Plasma 3.0 2.5 - 4.5 mg/dL [facility] 06/26/2018 3:58 AM EST 06/26/2018 3:56 AM EST us Historical Provider LAB BLOOD ORDERABLES Paula l Result [facility] * (ABNORMAL) CBC W/O Differential (06/26/2018 3:58 AM EST) WBC Count 5.9 3.7 - 10.3 k/uL [facility] RBC Count 2.86(L) 3.9 - 5.2 M/uL [facility] HGB 9.0(L) 11.2 - 15.7 g/dL [facility] HCT 28.0(L) 34 - 45 % [facility] Platelet Count 458(H) 155 - 369 k/uL [facility] MCV 98 79 - 98 fL [facility] MCH 31.5 26 - 32 pg [facility] MCHC 32.1 30.7 - 35.5 g/dL [facility] RDW 18.8(H) 12.4 - 14.9 % [facility] MPV 8.9 8.8 - 12.5 fL [facility] NRBC COUNT 0.7(H) 0 % [facility] 06/26/2018 3:58 AM EST 06/26/2018 4:09 AM EST Historical Provider LAB BLOOD ORDERABLES Paula l Result Performing Organization Address [facility] de Phone Number SUNQUEST * Phosphorus, Plasma (06/25/2018 4:51 AM EST) Phosphorus, Plasma 2.9 2.5 - 4.5 mg/dL [facility] 06/25/2018 4:51 AM EST 06/25/2018 5:44 AM EST Historical Provider LAB BLOOD ORDERABLES Paula l Result Performing Organization Address City/[facility] de Phone Number [facility]QUEST * (ABNORMAL) Magnesium, Plasma (06/25/2018 4:51 AM EST) Magnesium, Plasma 1.8(L) 1.9 - 2.4 mg/dL [facility] 06/25/2018 4:51 AM EST 06/25/2018 5:44 AM EST Historical Provider LAB BLOOD ORDERABLES Paula l Result Performing Organization Address City/[facility]/ZIP Co de Phone Number [facility]QUEST * (ABNORMAL) Basic Metabolic Panel, Plasma (06/25/2018 4:51 AM EST) Glucose, Plasma 69(L) 74 - 99 mg/dL [facility] BUN, Plasma 10 8 - 23 mg/dL [facility] Creatinine, Plasma 0.53(L) 0.60 - 1.10 mg/dL [facility] BUN/Creatinine Ratio 19 8 - 20 [facility] Sodium, Plasma 139 136 - 145 mmol/L [facility] Potassium, Plasma 3.2(L) 3.7 - 4.8 mmol/L [facility] Chloride, Plasma 102 101 - 108 mmol/L [facility] CO2, Plasma 21(L) 22 - 29 mmol/L [facility] Anion Gap 16 6 - 16 mmol/L [facility] Calcium, Plasma 8.5(L) 8.9 - 10.2 mg/dL [facility] eGFR >60 >60 SEE NOTE [facility] eGFR, if AFR/AM >60 >60 SEE NOTE [facility] Comment: (NOTE) eGFR = estimated GFR; eGFR units = mL/min/1.73 sq meters Chronic Kidney Disease is considered if eGFR <60 mL/min/1.73 sq meters Kidney failure is considered if eGFR is <15 mL/min/1.73 sq meters. eGFR assumes steady state plasma creatinine concentration; not applicable if renal function is rapidly changing or patient is on dialysis. 06/25/2018 4:51 AM EST 06/25/2018 5:44 AM EST us Historical Provider LAB BLOOD ORDERABLES Paula cory Result Performing Organization Address City/[facility]/ZIP Co de Phone Number [facility]QUEST * Magnesium, Plasma (06/25/2018 4:51 AM EST) Magnesium, Plasma Multiple SCM orders. Tests consolidated . 1.9 - 2.4 mg/dL [facility] 06/25/2018 4:51 AM EST 06/25/2018 6:41 AM EST us Historical Provider LAB BLOOD ORDERABLES Paula l Result [facility]QUEST * Basic Metabolic Panel, Plasma (06/25/2018 4:51 AM EST) Pathologist [facility] Glucose, Plasma Multiple SCM orders. Tests consolidated . 74 - 99 mg/dL [facility] BUN, Plasma Multiple SCM orders. Tests consolidated . 8 - 23 mg/dL [facility] Creatinine, Plasma Multiple SCM orders. Tests consolidated . 0.60 - 1.10 mg/dL [facility] BUN/Creatinine Ratio Multiple SCM orders. Tests consolidated . 8 - 20 [facility] Sodium, Plasma Multiple SCM orders. Tests consolidated . 136 - 145 mmol/L [facility] Potassium, Plasma Multiple SCM orders. Tests consolidated . 3.7 - 4.8 mmol/L [facility] Chloride, Plasma Multiple SCM orders. Tests consolidated . 101 - 108 mmol/L [facility] CO2, Plasma Multiple SCM orders. Tests consolidated . 22 - 29 mmol/L [facility] Anion Gap Multiple SCM orders. Tests consolidated . 6 - 16 mmol/L [facility] Calcium, Plasma Multiple SCM orders. Tests consolidated . 8.9 - 10.2 mg/dL [facility] eGFR Multiple SCM orders. Tests consolidated . >60 SEE NOTE [facility] eGFR, if AFR/AM Multiple SCM orders. Tests consolidated . >60 SEE NOTE [facility] 06/25/2018 4:51 AM EST 06/25/2018 6:41 AM EST us Historical Provider LAB BLOOD ORDERABLES Paula ray Result [facility] * (ABNORMAL) CBC W/O Differential (06/25/2018 4:51 AM EST) Pathologist [facility] WBC Count 5.4 3.7 - 10.3 k/uL [facility] RBC Count 2.91(L) 3.9 - 5.2 M/uL [facility] HGB 9.4(L) 11.2 - 15.7 g/dL [facility] HCT 29.2(L) 34 - 45 % [facility] Platelet Count 433(H) 155 - 369 k/uL [facility] MCV 100(H) 79 - 98 fL [facility] MCH 32.3(H) 26 - 32 pg [facility] MCHC 32.2 30.7 - 35.5 g/dL [facility] RDW 18.5(H) 12.4 - 14.9 % [facility] MPV 9.5 8.8 - 12.5 fL [facility] NRBC COUNT 0.6(H) 0 % [facility] 06/25/2018 4:51 AM EST 06/25/2018 5:[address] [facility] Provider LAB BLOOD ORDERABLES Paula l Result Performing Organization Address [facility] Phone Number SUNQUEST * Ionized calcium, other (06/24/2018 3:33 AM EST) Ionized Calcium, Whole Blood 4.6 4.6 - 5.1 mg/dL [facility] 06/24/2018 3:33 AM EST 06/24/2018 3:[address] [facility] Provider LAB BLOOD ORDERABLES Paula ray Result Performing Organization Address [facility] Phone Number [facility]QUEST * Phosphorus, Plasma (06/24/2018 3:33 AM EST) Phosphorus, Plasma 3.2 2.5 - 4.5 mg/dL [facility] 06/24/2018 3:33 AM EST 06/24/2018 3:36 AM EST Historical Provider LAB BLOOD ORDERABLES Paula l Result Performing Organization Address [facility] Phone Number [facility] * (ABNORMAL) Magnesium, Plasma (06/24/2018 3:33 AM EST) Magnesium, Plasma 1.6(L) 1.9 - 2.4 mg/dL [facility] 06/24/2018 3:33 AM EST 06/24/2018 3:36 AM EST Historical Provider LAB BLOOD ORDERABLES Paula l Result Performing Organization Address [facility] Phone Number [facility]QUEST * (ABNORMAL) Basic Metabolic Panel, Plasma (06/24/2018 3:33 AM EST) Glucose, Plasma 83 74 - 99 mg/dL [facility] BUN, Plasma 12 8 - 23 mg/dL [facility] Creatinine, Plasma 0.59(L) 0.60 - 1.10 mg/dL [facility] BUN/Creatinine Ratio 20 8 - 20 [facility] Sodium, Plasma 137 136 - 145 mmol/L [facility] Potassium, Plasma 3.5(L) 3.7 - 4.8 mmol/L [facility] Chloride, Plasma 97(L) 101 - 108 mmol/L [facility] CO2, Plasma 24 22 - 29 mmol/L [facility] Anion Gap 16 6 - 16 mmol/L [facility] Calcium, Plasma 9.0 8.9 - 10.2 mg/dL [facility] eGFR >60 >60 SEE NOTE [facility] eGFR, if AFR/AM >60 >60 SEE NOTE [facility] Comment: (NOTE) eGFR = estimated GFR; eGFR units = mL/min/1.73 sq meters Chronic Kidney Disease is considered if eGFR <60 mL/min/1.73 sq meters Kidney failure is considered if eGFR is <15 mL/min/1.73 sq meters. eGFR assumes steady state plasma creatinine concentration; not applicable if renal function is rapidly changing or patient is on dialysis. 06/24/2018 3:33 AM EST 06/24/2018 3:36 AM EST us Historical Provider LAB BLOOD ORDERABLES Paula ray Result [facility] * (ABNORMAL) CBC W/O Differential (06/24/2018 3:33 AM EST) WBC Count 6.2 3.7 - 10.3 k/uL [facility] RBC Count 2.97(L) 3.9 - 5.2 M/uL [facility] HGB 9.4(L) 11.2 - 15.7 g/dL [facility] HCT 29.1(L) 34 - 45 % [facility] Platelet Count 434(H) 155 - 369 k/uL [facility] MCV 98 79 - 98 fL [facility] MCH 31.6 26 - 32 pg [facility] MCHC 32.3 30.7 - 35.5 g/dL [facility] RDW 18.2(H) 12.4 - 14.9 % [facility] MPV 9.0 8.8 - 12.5 fL [facility] NRBC COUNT 0.6(H) 0 % [facility] 06/24/2018 3:33 AM EST 06/24/2018 3:35 AM EST us Historical Provider LAB BLOOD ORDERABLES Paula l Result [facility]QUEST * Extra Tubes (06/24/2018 12:01 AM EST) Extra GREEN TOP TUBE. PLASMA REFRIGERATED IN LAB 72 HOURS. [facility] 06/24/2018 12:0 1 AM EST 06/24/2018 12:01 AM EST us Penny Dodson MD LAB BLOOD ORDERABLES Final Result Performing Organization Address City/[facility] Co de Phone Number [facility]QUEST * XR Abdomen 1 View (06/23/2018 9:59 AM EST) Anatomical Region Laterality Modality Body Radiographic Leana ging Narrative 06/23/2018 11:35 AM EST REQUESTING PHYSICIAN: REUBEN NDIAYE REASON FOR EXAMINATION/PROCEDURE: RAD PDP:Y ??* ??concern for ileus/obstruction EXAMINATION / PROCEDURE: ABDOMEN 1 VIEW Jun 23 2018 - 09:59; ?? CLINICAL INDICATION: Obstructive symptoms TECHNIQUE : ABDOMEN 1 VIEW COMPARISON: Correlation to CT abdomen pelvis June 11, 2018 FINDINGS: There is gaseous distention of the colon. There are dilated gas-filled loops of small bowel. Gas extends to the rectum. Linear opacities lung bases are likely atelectasis. ?? IMPRESSION: Gaseous distention of large and small bowel, likely ileus. CRITICAL RESULT: ?? No. COMMUNICATION: Per this written report. ?? Verified by: JESUS CASTRO M.D. on Jun 23 2018 11:34A Transcribed by : [facility]ICHMONDJamie on Jun 23 2018 11:34A Dictated by: JESUS CASTRO M.D. on Jun 23 2018 11:33A Procedure Note Jesus Castro - 11/23/2020 REQUESTING PHYSICIAN: REUBEN NDIAYE REASON FOR EXAMINATION/PROCEDURE: RAD PDP:Y * concern for ileus/obstruction EXAMINATION / PROCEDURE: ABDOMEN 1 VIEW Jun 23 2018 - 09:59; CLINICAL INDICATION: Obstructive symptoms TECHNIQUE : ABDOMEN 1 VIEW COMPARISON: Correlation to CT abdomen pelvis June 11, 2018 FINDINGS: There is gaseous distention of the colon. There are dilated gas-filled loops of small bowel. Gas extends to the rectum. Linear opacities lung bases are likely atelectasis. IMPRESSION: Gaseous distention of large and small bowel, likely ileus. CRITICAL RESULT: No. COMMUNICATION: Per this written report. Verified by: JESUS CASTRO M.D. on Jun 23 2018 11:34A Transcribed by : PSCB on Jun 23 2018 11:34A Dictated by: JESUS CASTRO M.D. on Jun 23 2018 11:33A Result [facility] Reuben Ndiaye MD IMG XR PROCEDURES Final Re sult * Ionized calcium, other (06/23/2018 3:42 AM EST) Ionized Calcium, Whole Blood 4.7 4.6 - 5.1 mg/dL [facility] 06/23/2018 3:42 AM EST 06/23/2018 3:42 AM EST Result [facility] Provider LAB BLOOD ORDERABLES Paula l Result Performing Organization Address [facility] de Phone Number SUNQUEST * Phosphorus, Plasma (06/23/2018 3:42 AM EST) Phosphorus, Plasma 3.3 2.5 - 4.5 mg/dL [facility] 06/23/2018 3:42 AM EST 06/23/2018 3:42 AM EST Result [facility] Provider LAB BLOOD ORDERABLES Paula l Result Performing Organization Address [facility] de Phone Number SUNQUEST * (ABNORMAL) Magnesium, Plasma (06/23/2018 3:42 AM EST) Magnesium, Plasma 1.8(L) 1.9 - 2.4 mg/dL [facility] 06/23/2018 3:42 AM EST 06/23/2018 3:42 AM EST Result [facility] Historical Provider LAB BLOOD ORDERABLES Paula l Result Performing Organization Address [facility]/ZIP Co de Phone Number SUNQUEST * (ABNORMAL) Basic Metabolic Panel, Plasma (06/23/2018 3:42 AM EST) Glucose, Plasma 102(H) 74 - 99 mg/dL [facility] BUN, Plasma 7(L) 8 - 23 mg/dL [facility] Creatinine, Plasma 0.59(L) 0.60 - 1.10 mg/dL [facility] BUN/Creatinine Ratio 12 8 - 20 [facility] Sodium, Plasma 137 136 - 145 mmol/L [facility] Potassium, Plasma 3.3(L) 3.7 - 4.8 mmol/L [facility] Chloride, Plasma 95(L) 101 - 108 mmol/L [facility] CO2, Plasma 28 22 - 29 mmol/L [facility] Anion Gap 14 6 - 16 mmol/L [facility] Calcium, Plasma 9.4 8.9 - 10.2 mg/dL [facility] eGFR >60 >60 SEE NOTE [facility] eGFR, if AFR/AM >60 >60 SEE NOTE [facility] Comment: (NOTE) eGFR = estimated GFR; eGFR units = mL/min/1.73 sq meters Chronic Kidney Disease is considered if eGFR <60 mL/min/1.73 sq meters Kidney failure is considered if eGFR is <15 mL/min/1.73 sq meters. eGFR assumes steady state plasma creatinine concentration; not applicable if renal function is rapidly changing or patient is on dialysis. 06/23/2018 3:42 AM EST 06/23/2018 3:42 AM EST us Historical Provider LAB BLOOD ORDERABLES Paula ray Result [facility] * (ABNORMAL) CBC W/O Differential (06/23/2018 3:42 AM EST) WBC Count 6.5 3.7 - 10.3 k/uL [facility] RBC Count 3.02(L) 3.9 - 5.2 M/uL [facility] HGB 9.8(L) 11.2 - 15.7 g/dL [facility] HCT 29.9(L) 34 - 45 % [facility] Platelet Count 424(H) 155 - 369 k/uL [facility] MCV 99(H) 79 - 98 fL [facility] MCH 32.5(H) 26 - 32 pg [facility] MCHC 32.8 30.7 - 35.5 g/dL [facility] RDW 17.9(H) 12.4 - 14.9 % [facility] MPV 9.2 8.8 - 12.5 fL [facility] NRBC COUNT 0.8(H) 0 % [facility] 06/23/2018 3:42 AM EST 06/23/2018 3:42 AM EST Result [facility] Historical Provider MD LAB BLOOD ORDERABLES Paula l Result Performing Organization Address [facility] de Phone Number SUNQUEST * (ABNORMAL) Ionized calcium, other (06/22/2018 4:00 AM EST) Ionized Calcium, Whole Blood 4.5(L) 4.6 - 5.1 mg/dL [facility] 06/22/2018 4:00 AM EST 06/22/2018 3:49 AM EST Result [facility] Historical Provider LAB BLOOD ORDERABLES Paula l Result Performing Organization Address [facility] Phone Number SUNQUEST * Phosphorus, Plasma (06/22/2018 4:00 AM EST) Phosphorus, Plasma 3.0 2.5 - 4.5 mg/dL [facility] 06/22/2018 4:00 AM EST 06/22/2018 3:50 AM EST Result [facility] Historical Provider LAB BLOOD ORDERABLES Paula l Result Performing Organization Address [facility] de Phone Number SUNQUEST * (ABNORMAL) Magnesium, Plasma (06/22/2018 12:01 AM EST) Magnesium, Plasma 1.6(L) 1.9 - 2.4 mg/dL [facility] 06/22/2018 12:0 1 AM EST 06/22/2018 3:50 AM EST Result [facility] Historical Provider LAB BLOOD ORDERABLES Paula l Result Performing Organization Address [facility] de Phone Number [facility]QUEST * (ABNORMAL) Basic Metabolic Panel, Plasma (06/22/2018 12:01 AM EST) Glucose, Plasma 100(H) 74 - 99 mg/dL [facility] BUN, Plasma 8 8 - 23 mg/dL [facility] Creatinine, Plasma 0.58(L) 0.60 - 1.10 mg/dL [facility] BUN/Creatinine Ratio 14 8 - 20 [facility] Sodium, Plasma 136 136 - 145 mmol/L [facility] Potassium, Plasma 3.3(L) 3.7 - 4.8 mmol/L [facility] Chloride, Plasma 96(L) 101 - 108 mmol/L [facility] CO2, Plasma 28 22 - 29 mmol/L [facility] Anion Gap 12 6 - 16 mmol/L [facility] Calcium, Plasma 8.9 8.9 - 10.2 mg/dL [facility] eGFR >60 >60 SEE NOTE [facility] eGFR, if AFR/AM >60 >60 SEE NOTE [facility]QUEST Comment: (NOTE) eGFR = estimated GFR; eGFR units = mL/min/1.73 sq meters Chronic Kidney Disease is considered if eGFR <60 mL/min/1.73 sq meters Kidney failure is considered if eGFR is <15 mL/min/1.73 sq meters. eGFR assumes steady state plasma creatinine concentration; not applicable if renal function is rapidly changing or patient is on dialysis. 06/22/2018 12:0 1 AM EST 06/22/2018 3:50 AM EST us Historical Provider LAB BLOOD ORDERABLES Paula ray Result [facility]QUEST * (ABNORMAL) CBC W/O Differential (06/22/2018 12:01 AM EST) WBC Count 5.4 3.7 - 10.3 k/uL [facility] RBC Count 2.83(L) 3.9 - 5.2 M/uL [facility] HGB 9.0(L) 11.2 - 15.7 g/dL [facility] HCT 28.1(L) 34 - 45 % [facility] Platelet Count 332 155 - 369 k/uL [facility] MCV 99(H) 79 - 98 fL [facility]QUEST Comment:Results inconsistent with previous lab findings. MCH 31.8 26 - 32 pg [facility] MCHC 32.0 30.7 - 35.5 g/dL [facility] RDW 18.1(H) 12.4 - 14.9 % [facility] MPV 9.1 8.8 - 12.5 fL [facility] NRBC COUNT 0.4(H) 0 % [facility] 06/22/2018 12:0 1 AM EST 06/22/2018 3:49 AM EST Historical Provider LAB BLOOD ORDERABLES Paula l Result [facility] * (ABNORMAL) CBC W/O Differential (06/21/2018 5:20 AM EST) WBC Count 5.4 3.7 - 10.3 k/uL [facility] RBC Count 2.53(L) 3.9 - 5.2 M/uL [facility] HGB 8.2(L) 11.2 - 15.7 g/dL [facility] HCT 26.2(L) 34 - 45 % [facility] Platelet Count 278 155 - 369 k/uL [facility] MCV 104(H) 79 - 98 fL [facility] MCH 32.4(H) 26 - 32 pg [facility] MCHC 31.3 30.7 - 35.5 g/dL [facility] RDW 18.8(H) 12.4 - 14.9 % [facility] MPV 9.4 8.8 - 12.5 fL [facility] NRBC COUNT 0.0 0 % [facility] 06/21/2018 5:20 AM EST 06/21/2018 5:24 AM EST Penny Dodson MD LAB BLOOD ORDERABLES Final Result [facility] * (ABNORMAL) Ionized calcium, other (06/21/2018 3:29 AM EST) Ionized Calcium, Whole Blood 4.5(L) 4.6 - 5.1 mg/dL [facility] 06/21/2018 3:29 AM EST 06/21/2018 3:31 AM EST us Historical Provider MD LAB BLOOD ORDERABLES Paula l Result [facility]QUEST * CBC W/O Differential (06/21/2018 3:29 AM EST) WBC Count SPECIMEN CLOTTED,NAPOLEON MOORE, RECOLLECT REQUESTED 3.7 - 10.3 k/uL [facility]QUEST Comment: SPOKE TO CORTES MATOS CORRECTED ON 06/21 AT 0359: PREVIOUSLY REPORTED NO SPECIMEN RECEIVED. SPECKLED URSKP RBC Count SPECIMEN CLOTTED,NAPOLEON MOORE, RECOLLECT REQUESTED 3.9 - 5.2 M/uL [facility] Comment: SPOKE TO CORTES MATOS CORRECTED ON 06/21 AT 0359: PREVIOUSLY REPORTED NO SPECIMEN RECEIVED. SPECKLED URSKP HGB SPECIMEN CLOTTED,NAPOLEON MOORE, RECOLLECT REQUESTED 11.2 - 15.7 g/dL [facility] Comment: SPOKE TO CORTES MATOS CORRECTED ON 06/21 AT 0359: PREVIOUSLY REPORTED NO SPECIMEN RECEIVED. SPECKLED URSKP HCT SPECIMEN CLOTTED,NAPOLEON MOORE, RECOLLECT REQUESTED 34 - 45 % [facility]QUEST Comment: SPOKE TO CORTES MATOS CORRECTED ON 06/21 AT 0359: PREVIOUSLY REPORTED NO SPECIMEN RECEIVED. SPECKLED URSKP Platelet Count SPECIMEN CLOTTED,ELLENI OSCAR, RECOLLECT REQUESTED 155 - 369 k/uL [facility]QUEST Comment: SPOKE TO CORTES MATOS CORRECTED ON 06/21 AT 0359: PREVIOUSLY REPORTED NO SPECIMEN RECEIVED. SPECKLED URSKP MCV SPECIMEN CLOTTED,NAPOLEON MOORE, RECOLLECT REQUESTED 79 - 98 fL [facility]QUEST Comment: SPOKE TO CORTES MATOS CORRECTED ON 06/21 AT 0359: PREVIOUSLY REPORTED NO SPECIMEN RECEIVED. SPECKLED URSKP MCH SPECIMEN CLOTTED,NAPOLEON MOORE, RECOLLECT REQUESTED 26 - 32 pg [facility]QUEST Comment: SPOKE TO CORTES MATOS CORRECTED ON 06/21 AT 0359: PREVIOUSLY REPORTED NO SPECIMEN RECEIVED. SPECKLED URSKP MCHC SPECIMEN CLOTTED,NAPOLEON MOORE, RECOLLECT REQUESTED 30.7 - 35.5 g/dL [facility]QUEST Comment: SPOKE TO CORTES MATOS CORRECTED ON 06/21 AT 0359: PREVIOUSLY REPORTED NO SPECIMEN RECEIVED. SPECKLED URSKP RDW SPECIMEN CLOTTED,NAPOLEON MOORE, RECOLLECT REQUESTED 12.4 - 14.9 % [facility]QUEST Comment: SPOKE TO CORTES MATOS CORRECTED ON 06/21 AT 0359: PREVIOUSLY REPORTED NO SPECIMEN RECEIVED. SPECKLED URSKP MPV SPECIMEN CLOTTED,CREDI OSCAR, RECOLLECT REQUESTED 8.8 - 12.5 fL [facility]QUEST Comment: SPOKE TO CORTES MATOS CORRECTED ON 06/21 AT 0359: PREVIOUSLY REPORTED NO SPECIMEN RECEIVED. SPECKLED URSKP NRBC COUNT SPECIMEN CLOTTED,CREDI OSCAR, RECOLLECT REQUESTED 0 % [facility]QUEST Comment: SPOKE TO CORTES MATOS CORRECTED ON 06/21 AT 0359: PREVIOUSLY REPORTED NO SPECIMEN RECEIVED. SPECKLED URSKP 06/21/2018 3:29 AM EST 06/21/2018 3:31 AM EST Historical Provider MD LAB BLOOD ORDERABLES Paula l Result Performing Organization Address [facility] Co de Phone Number SUNQUEST * Phosphorus, Plasma (06/21/2018 3:21 AM EST) Phosphorus, Plasma 3.1 2.5 - 4.5 mg/dL [facility] 06/21/2018 3:21 AM EST 06/21/2018 3:[address] [facility] Provider MD LAB BLOOD ORDERABLES Paula l Result Performing Organization Address [facility] de Phone Number SUNQUEST * (ABNORMAL) Magnesium, Plasma (06/21/2018 3:21 AM EST) Magnesium, Plasma 1.6(L) 1.9 - 2.4 mg/dL [facility] 06/21/2018 3:21 AM EST 06/21/2018 3:34 AM EST Historical Provider MD LAB BLOOD ORDERABLES Paula l Result Performing Organization Address [facility] [facility] Co de Phone Number SUNQUEST * (ABNORMAL) Basic Metabolic Panel, Plasma (06/21/2018 3:21 AM EST) Glucose, Plasma 125(H) 74 - 99 mg/dL SUNQUEST BUN, Plasma 12 8 - 23 mg/dL SUNQUEST Creatinine, Plasma 0.71 0.60 - 1.10 mg/dL SUNQUEST BUN/Creatinine Ratio 17 8 - 20 SUNQUEST Sodium, Plasma 138 136 - 145 mmol/L SUNQUEST Potassium, Plasma 3.3(L) 3.7 - 4.8 mmol/L SUNQUEST Chloride, Plasma 98(L) 101 - 108 mmol/L SUNQUEST CO2, Plasma 26 22 - 29 mmol/L SUNQUEST Anion Gap 14 6 - 16 mmol/L SUNQUEST Calcium, Plasma 9.1 8.9 - 10.2 mg/dL SUNQUEST eGFR >60 >60 SEE NOTE SUNQUEST eGFR, if AFR/AM >60 >60 SEE NOTE SUNQUEST Comment: (NOTE) eGFR = estimated GFR; eGFR units = mL/min/1.73 sq meters Chronic Kidney Disease is considered if eGFR <60 mL/min/1.73 sq meters Kidney failure is considered if eGFR is <15 mL/min/1.73 sq meters. eGFR assumes steady state plasma creatinine concentration; not applicable if renal function is rapidly changing or patient is on dialysis. 06/21/2018 3:21 AM EST 06/21/2018 3:34 AM EST Historical Provider LAB BLOOD ORDERABLES Paula l Result Performing Organization Address City/[facility] de Phone Number SUNQUEST * Ionized calcium, other (06/20/2018 4:00 AM EST) Ionized Calcium, Whole Blood 4.8 4.6 - 5.1 mg/dL SUNQUEST 06/20/2018 4:00 AM EST 06/20/2018 4:18 AM EST Historical Provider LAB BLOOD ORDERABLES Paula l Result Performing Organization Address City/[facility] Co de Phone Number SUNQUEST * Phosphorus, Plasma (06/20/2018 3:58 AM EST) Phosphorus, Plasma 3.7 2.5 - 4.5 mg/dL SUNQUEST 06/20/2018 3:58 AM EST 06/20/2018 4:19 AM EST Historical Provider LAB BLOOD ORDERABLES Paula l Result Performing Organization Address City/[facility] Co de Phone Number SUNQUEST * (ABNORMAL) Magnesium, Plasma (06/20/2018 3:58 AM EST) Magnesium, Plasma 1.7(L) 1.9 - 2.4 mg/dL SUNQUEST 06/20/2018 3:58 AM EST 06/20/2018 4:19 AM EST Historical Provider LAB BLOOD ORDERABLES Paula l Result Performing Organization Address [facility]/ZIP Co de Phone Number SUNQUEST * (ABNORMAL) Basic Metabolic Panel, Plasma (06/20/2018 3:58 AM EST) Glucose, Plasma 115(H) 74 - 99 mg/dL SUNQUEST BUN, Plasma 11 8 - 23 mg/dL SUNQUEST Creatinine, Plasma 0.95 0.60 - 1.10 mg/dL SUNQUEST BUN/Creatinine Ratio 12 8 - 20 SUNQUEST Sodium, Plasma 137 136 - 145 mmol/L SUNQUEST Potassium, Plasma 3.6(L) 3.7 - 4.8 mmol/L SUNQUEST Chloride, Plasma 98(L) 101 - 108 mmol/L SUNQUEST CO2, Plasma 26 22 - 29 mmol/L SUNQUEST Anion Gap 13 6 - 16 mmol/L SUNQUEST Calcium, Plasma 9.2 8.9 - 10.2 mg/dL SUNQUEST eGFR 58(L) >60 SEE NOTE SUNQUEST eGFR, if AFR/AM >60 >60 SEE NOTE SUNQUEST Comment: (NOTE) eGFR = estimated GFR; eGFR units = mL/min/1.73 sq meters Chronic Kidney Disease is considered if eGFR <60 mL/min/1.73 sq meters Kidney failure is considered if eGFR is <15 mL/min/1.73 sq meters. eGFR assumes steady state plasma creatinine concentration; not applicable if renal function is rapidly changing or patient is on dialysis. 06/20/2018 3:58 AM EST 06/20/2018 4:19 AM EST Historical Provider LAB BLOOD ORDERABLES Paula l Result Performing Organization Address City/[facility]/ZIP Co de Phone Number SUNQUEST * Magnesium, Plasma (06/20/2018 12:01 AM EST) Magnesium, Plasma Multiple SCM orders. Tests consolidated . 1.9 - 2.4 mg/dL SUNQUEST 06/20/2018 12:0 1 AM EST 06/20/2018 6:27 AM EST Historical Provider LAB BLOOD ORDERABLES Paula l Result Performing Organization Address [facility] Co de Phone Number SUNQUEST * Basic Metabolic Panel, Plasma (06/20/2018 12:01 AM EST) Glucose, Plasma Multiple SCM orders. Tests consolidated . 74 - 99 mg/dL SUNQUEST BUN, Plasma Multiple SCM orders. Tests consolidated . 8 - 23 mg/dL SUNQUEST Creatinine, Plasma Multiple SCM orders. Tests consolidated . 0.60 - 1.10 mg/dL SUNQUEST BUN/Creatinine Ratio Multiple SCM orders. Tests consolidated . 8 - 20 SUNQUEST Sodium, Plasma Multiple SCM orders. Tests consolidated . 136 - 145 mmol/L SUNQUEST Potassium, Plasma Multiple SCM orders. Tests consolidated . 3.7 - 4.8 mmol/L SUNQUEST Chloride, Plasma Multiple SCM orders. Tests consolidated . 101 - 108 mmol/L SUNQUEST CO2, Plasma Multiple SCM orders. Tests consolidated . 22 - 29 mmol/L SUNQUEST Anion Gap Multiple SCM orders. Tests consolidated . 6 - 16 mmol/L SUNQUEST Calcium, Plasma Multiple SCM orders. Tests consolidated . 8.9 - 10.2 mg/dL SUNQUEST eGFR Multiple SCM orders. Tests consolidated . >60 SEE NOTE SUNQUEST eGFR, if AFR/AM Multiple SCM orders. Tests consolidated . >60 SEE NOTE SUNQUEST 06/20/2018 12:0 1 AM EST 06/20/2018 6:27 AM EST us Historical Provider LAB BLOOD ORDERABLES Paula l Result Performing Organization Address City/[facility]/ZIP Co de Phone Number SUNQUEST * (ABNORMAL) CBC W/O Differential (06/20/2018 12:01 AM EST) WBC Count 5.9 3.7 - 10.3 k/uL SUNQUEST RBC Count 2.43(L) 3.9 - 5.2 M/uL SUNQUEST HGB 7.9(L) 11.2 - 15.7 g/dL SUNQUEST HCT 24.5(L) 34 - 45 % SUNQUEST Platelet Count 262 155 - 369 k/uL SUNQUEST MCV 101(H) 79 - 98 fL SUNQUEST MCH 32.5(H) 26 - 32 pg SUNQUEST MCHC 32.2 30.7 - 35.5 g/dL SUNQUEST RDW 18.9(H) 12.4 - 14.9 % SUNQUEST MPV 9.5 8.8 - 12.5 fL SUNQUEST NRBC COUNT 0.0 0 % SUNQUEST 06/20/2018 12:0 1 AM EST 06/20/2018 4:13 AM EST Historical Provider LAB BLOOD ORDERABLES Paula ray Result Performing Organization Address [facility] de Phone Number SUNQUEST * (ABNORMAL) Glucose Point of Care. (06/19/2018 11:07 AM EST) POCT Glucose 122(H) 74 - 99 mg/dL SUNQUEST Comment: Accuracy of a glucose result obtained from a capillary whole blood specimen relies upon adequate, non-compromised capillary blood flow.If the capillary glucose result is not consistent with the patient's clinical signs and symptoms, glucose testing should be repeated with either an arterial or venous sample on the glucometer or sent to the main laboratory for testing. 06/19/2018 11:0 7 AM EST 06/19/2018 11:10 AM EST Penny Dodson MD LAB BLOOD ORDERABLES Final Result Performing Organization Address [facility] Co de Phone Number SUNQUEST * Ionized calcium, other (06/19/2018 4:00 AM EST) Ionized Calcium, Whole Blood DUPLICATE ORDER,CREDITE D 4.6 - 5.1 mg/dL SUNQUEST 06/19/2018 4:00 AM EST 06/20/2018 7:21 AM EST Historical Provider LAB BLOOD ORDERABLES Paula l Result Performing Organization Address City/[facility] Co de Phone Number SUNQUEST * Phosphorus, Plasma (06/19/2018 4:00 AM EST) Phosphorus, Plasma DUPLICATE ORDER,CREDITE D 2.5 - 4.5 mg/dL SUNQUEST 06/19/2018 4:00 AM EST 06/20/2018 7:25 AM EST Historical Provider MD LAB BLOOD ORDERABLES Paula l Result SUNQUEST * Phosphorus, Plasma (06/19/2018 12:01 AM EST) Phosphorus, Plasma 3.9 2.5 - 4.5 mg/dL SUNQUEST 06/19/2018 12:0 1 AM EST 06/19/2018 3:15 AM EST Historical Provider MD LAB BLOOD ORDERABLES Paula l Result Performing Organization Address City/[facility] Co de Phone Number SUNQUEST * (ABNORMAL) Magnesium, Plasma (06/19/2018 12:01 AM EST) Magnesium, Plasma 1.5(L) 1.9 - 2.4 mg/dL SUNQUEST 06/19/2018 12:0 1 AM EST 06/19/2018 3:15 AM EST Historical Provider LAB BLOOD ORDERABLES Paula l Result Performing Organization Address City/[facility] Co de Phone Number SUNQUEST * (ABNORMAL) Basic Metabolic Panel, Plasma (06/19/2018 12:01 AM EST) Glucose, Plasma 158(H) 74 - 99 mg/dL SUNQUEST BUN, Plasma 12 8 - 23 mg/dL SUNQUEST Creatinine, Plasma 0.65 0.60 - 1.10 mg/dL SUNQUEST BUN/Creatinine Ratio 18 8 - 20 SUNQUEST Sodium, Plasma 138 136 - 145 mmol/L SUNQUEST Potassium, Plasma 4.0 3.7 - 4.8 mmol/L SUNQUEST Chloride, Plasma 100(L) 101 - 108 mmol/L SUNQUEST CO2, Plasma 23 22 - 29 mmol/L SUNQUEST Anion Gap 15 6 - 16 mmol/L SUNQUEST Calcium, Plasma 9.1 8.9 - 10.2 mg/dL SUNQUEST eGFR >60 >60 SEE NOTE SUNQUEST eGFR, if AFR/AM >60 >60 SEE NOTE SUNQUEST Comment: (NOTE) eGFR = estimated GFR; eGFR units = mL/min/1.73 sq meters Chronic Kidney Disease is considered if eGFR <60 mL/min/1.73 sq meters Kidney failure is considered if eGFR is <15 mL/min/1.73 sq meters. eGFR assumes steady state plasma creatinine concentration; not applicable if renal function is rapidly changing or patient is on dialysis. 06/19/2018 12:0 1 AM EST 06/19/2018 3:15 AM EST Historical Provider LAB BLOOD ORDERABLES Paula l Result Performing Organization Address [facility] de Phone Number SUNQUEST * (ABNORMAL) CBC W/O Differential (06/19/2018 12:01 AM EST) [facility] WBC Count 5.8 3.7 - 10.3 k/uL SUNQUEST RBC Count 2.70(L) 3.9 - 5.2 M/uL SUNQUEST HGB 8.7(L) 11.2 - 15.7 g/dL SUNQUEST HCT 26.5(L) 34 - 45 % SUNQUEST Platelet Count 246 155 - 369 k/uL SUNQUEST MCV 98 79 - 98 fL SUNQUEST MCH 32.2(H) 26 - 32 pg SUNQUEST MCHC 32.8 30.7 - 35.5 g/dL SUNQUEST RDW 18.7(H) 12.4 - 14.9 % SUNQUEST MPV 9.2 8.8 - 12.5 fL SUNQUEST NRBC COUNT 0.0 0 % SUNQUEST 06/19/2018 12:0 1 AM EST 06/19/2018 3:15 AM EST Historical Provider LAB BLOOD ORDERABLES Paula l Result Performing Organization Address City/[facility] Co de Phone Number SUNQUEST * (ABNORMAL) CBC W/O Differential (06/18/2018 8:24 PM EST) WBC Count 4.8 3.7 - 10.3 k/uL SUNQUEST RBC Count 2.85(L) 3.9 - 5.2 M/uL SUNQUEST HGB 9.2(L) 11.2 - 15.7 g/dL SUNQUEST HCT 28.5(L) 34 - 45 % SUNQUEST Platelet Count 253 155 - 369 k/uL SUNQUEST MCV 100(H) 79 - 98 fL SUNQUEST MCH 32.3(H) 26 - 32 pg SUNQUEST MCHC 32.3 30.7 - 35.5 g/dL SUNQUEST RDW 18.8(H) 12.4 - 14.9 % SUNQUEST MPV 9.2 8.8 - 12.5 fL SUNQUEST NRBC COUNT 0.0 0 % SUNQUEST 06/18/2018 8:24 PM EST 06/18/2018 8:38 PM EST us Historical Provider LAB BLOOD ORDERABLES Paula ray Result SUNQUEST * Surgical Pathology (06/18/2018 4:28 PM EST) Specimen from ovary (specimen) 06/18/2018 4:28 PM EST 06/18/2018 4:28 PM EST Narrative SUNQUEST - 06/27/2018 9:54 AM EST [place], [place] [address] MR #: [id number] MURIEL CHAMBERLAIN 1945 (Age: 72) ??FW Collect Date: 06/18/2018 16:28 Receipt Date: 06/18/2018 16:28 Page 1 DEPARTMENT OF PATHOLOGY AND LABORATORY MEDICINE SURGICAL PATHOLOGY REPORT Fax: ??[phone] ?[id number] Email: [email or web address] ? ATTENDING MD: Ranjana Hutchins MD ? Service: [facility] ? 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 ??SEE COMMENT. ??- INCIDENTAL CLEAR CELL ADENOFIBROMA OF OVARY. LEFT OVARY AND FALLOPIAN TUBE, SALPINGO-OOPHORECTOMY (SPECIMEN A): ??- BENIGN PHYSIOLOGIC OVARY WITH SURFACE ADHESIONS. ??- FALLOPIAN TUBE WITH NO SIGNIFICANT PATHOLOGIC ABNORMALITY. OMENTUM, OMENTECTOMY (SPECIMEN C): ??- BENIGN FIBROADIPOSE TISSUE. ? Electronically Signed Out ? dwp/06/27/2018 Elyse Christine M.D. ?? CAP Cancer Checklist OVARY or FALLOPIAN TUBE Protocol web posting date: 2015-08-27 ? Clinical History: ?? 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 Right salpingo-oophorectomy, Left salpingo-oophorectomy, Omentectomy Lymph Node Sampling: ?? Not performed Specimen Integrity: ?? Right ovary - Fragmented, Right fallopian tube - Obliterated by tumor Primary Tumor Site: ?? Right fallopian tube Tumor Size - Right Fallopian Tube: ?? 11.5 cm disrupted tumor Histologic Type: ??Serous high-grade carcinoma Histologic Type Comments: ?? tumor grade determined from review of pre-therapy vaginal biopsy [id number] Ovarian Surface Involvement: ?? Present Peritoneal Ascitic Fluid: ?? Not performed / unknown Pleural Fluid: ?? Not performed / unknown STAGE ??(pTNM, AJCC 7th ed.) ? TNM Descriptors: ?? y (post-treatment) Primary tumor (pT): ??at least pT2a Regional Lymph Nodes (pN): ?? pNX Distant Metastasis (pM): ?? Not applicable - pM cannot be determined from the submitted specimen(s) FIGO STAGE (FIGO 2014) ? FIGO Stage: ?? at least IIA CLINICAL HISTORY Preoperative diagnosis: Ovarian cancer Intraoperative findings: Ovarian cancer Operative procedure: Bilateral salpingo-oophorectomy, debulking, omentectomy and other indicated procedures DESCRIPTION OF SPECIMEN: A: ??Left tube and ovary B: ??Right tube and ovary C: ??Omentum MICROSCOPIC DESCRIPTION/COMMENT The patient is status post chemotherapy for mullerian adenocarcinoma. Review of a pre-therapy vaginal mass biopsy shows high grade tumor. Tumor in the current resection specimen continues to show high-grade morphology and stains for WT1. It shows p53 null immunophenotype and is negative for napsin A, consistent with serous carcinoma. An adjacent ovarian clear cell adenofibroma is noted. This tumor stains for napsin A, is negative for WT-1, and shows wild-type p53 expression, in contrast to the high-grade serous carcinoma. Tumor involves ovary and obliterates fallopian tube. It is thus interpreted as a fallopian tube primary. Per operative report, tumor is densely adherent to bladder, vaginal cuff, sigmoid colon, and rectum. However, none of these structures is identified grossly or microscopically. Post-therapy tumor is thus staged as at least FIGO IIA. Complete correlation with radiographic and operative findings is needed. SUMMARY OF IMMUNOHISTOCHEMICAL STAINS B5: napsin A, p53, WT-1 All controls show appropriate reactivity. All immunohistochemistry, in situ hybridization, and histochemical tests were developed by and are performed at the [facility], [address] [place] [address]. All tests reported here, except those addressing HER2 and PD-L1 expression as predictive markers, have not been cleared by or approved by the US Food and Drug Administration (FDA). The FDA has determined that such clearance or approval is not necessary. The laboratory is regulated under CLIA as qualified to perform high-complexity testing. The tests are used for clinical purposes. They should not be regarded as investigational or for research. GROSS DESCRIPTION A: Specimen is received in formalin labeled left tube and ovary. Received is a 7.7 g (post fixation) intact tubo-ovarian complex. The ovary is pink-ruiz and without any obvious excrescences. It measures 3.3 x 1.7 x 1 cm. Sectioning shows a grossly unremarkable soft, solid cut surface varies from pink to white. The associated fallopian tube and fimbria is bound down to the ovary by fibrous adhesions. It measures 3.5 cm in length up to 0.4 cm in diameter. Sample Tester sections are taken and submitted in three cassettes labeled A1-A3 which includes the entire fallopian tube and fimbria in A2-A3. B: Specimen is received fresh and placed in formalin labeled right tube and ovary. Received is an 89 g partially disrupted, leathery cystic structure measuring 11.5 x 7 x 0.4 cm. The outer surface of the specimen varies from ruiz-white to purple-adan and partially covered by fibrous adhesions. The outer surface is without any obvious excrescences, however there is an attached encapsulated and fleshy pink-ruiz complex measuring 3 x 2.2 x 1.5 cm. A vendor representatives section from this area is taken and submitted for research purposes. The main cyst cavity has an irregular, wrinkled inner lining. There is a single 0.8 cm firm, white excrescence identified. Also sectioning reveals a 4.6 x 3 x 2 cm firm, nodular fibrous complex within the wall. An obvious fallopian tube and fimbria is difficult to identify grossly. Sample Tester sections are taken and submitted in 11 cassettes labeled B1-B11. Cassette summary: B1: ??Inner lining excrescences; B2-B4: ??Sections from the attached encapsulated, fleshy complex; B5-B7: ??Sections from fibrous complex; B8-B11: ??Additional vendor representatives sections C: Specimen is received fresh and placed in formalin labeled omentum. Received is a yellow-ruiz, lobulated partial omentectomy specimen measuring 46 x 16 x 2.8 cm. There are no obvious gross lesions or tumor implants are identified. Sample Tester sections are taken and submitted in three cassettes labeled C1-C3. tania/06/19/2018 Alexia Benavides resident may have participated in this service. ??A pathologist has performed and is responsible for the reported pathologic evaluation. ICD: C57.01 ? Malignant neoplasm of right fallopian tube SNOMED CODES: A; A05889 P1100 B; [id number] M8310 C; P1100 [id number] F: A; 57819 B; 75087, [id number], 46440, [id number], 43656, [id number], 56097, 23035 <CR>, 50740 C; 93480 us Penny Dodson MD LAB PATHOLOGY ORDERAB LES Final Result SUNQUEST documented in this encounter Visit Diagnoses Diagnosis Malignant neoplasm of right ovary (CMS/HCC) documented in this encounter
--- OUTSIDE RECORDS SUMMARY | 2024-07-10 12:03 | XMS_ITS | Encounter Summary ---
Author Organization [facility] Address [address] [place], [place] [id number] Care Team Providers Care Device Repair Technician Name Role Phone LucioNurafany Hilton DO Primary Care Provider [phone] Aliyah Valencia MD Unavailable [phone] Reason for Visit * Reason Comments Chemotherapy * Episode Based Medications (Routine) - Closed Specialty Diagnoses / Procedures Referred By Contac t Referred To Contact Diagnoses Carcinoma of fallopian tube, unspecified laterality (CMS/HCC) Penny Carmona MD [address] [facility] Mayra Lai [address] [address] Phone: tel: fax: [facility] Infusion Clinic [address] [place] [address] Phone: tel: Referral ID Status Reason Start Date Expiration Date Visits Re quested Visits Authorized [id number] Closed 06/30/2021 06/30/2022 1 21 Encounter Details Date Type Department Care Team (Late st Contact Info) Description 08/04/2021 1:30 PM EST Office Visit [facility] Gynecology [address] [address] [place] [address] Penny Carmona MD [address] [facility] Mayra Lai [address] [address] Carcinoma of fallopian tube, unspecified laterality (CMS/HCC) (Primary Dx); Malignant neoplasm of cervix, unspecified site (CMS/HCC); Neuropathy Social History Tobacco Use Types Packs/Day [...] Sign Reading Time Taken Comments Blood Pressure 125/76 08/04/2021 1:19 PM EST Pulse 96 08/04/2021 1:19 PM EST Temperature 36.8 ??C (98.3 ??F) 08/04/2021 1:19 PM ES T Respiratory Rate - - Oxygen Saturation - - Inhaled Oxygen Concentration - - Weight 84.1 kg (185 lb 6.5 oz) 08/04/2021 1:19 P M EST Height 161.3 cm (5' 3.5 ) 08/04/2021 1:19 PM EST Body Mass Index 32.33 08/04/2021 1:19 PM EST documented in this encounter Miscellaneous Notes * Addendum Note - Norma Zamora PharmD - 08/04/2021 1:30 PM ESTAddended by: NORMA ZAMORA on: 08/04/2021 03:29 PM Modules accepted: Orders * Progress Notes - Penny Carmona MD - 08/04/2021 1:30 PM EST Primary Care Provider: Leny Valdes [...] she underwent a left needle localized lumpectomy. Happy lymph node biopsy was not performed as [...] vagina). Initiated neoadjuvant chemo with carbo/Taxol per [employer] followed by BSO/Omentectomy and adjuvant Carbotaxol. Recurrence in March 2019. Treated with carbo initially followed by Olaparib. 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 She is currently off of therapy. She follows with Dr. Banerjee in [facility]. 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 Also with interval enlargement of a adrenal nodule on right - Planning Carbo alone to start 08/04/2021 Interval updates to history: Oncologic treatment history as described above reviewed today as well as PMH/PSH/Meds/All/SH/FH, with updates made as appropriate. Patient is here today for Carbo # 1 ([id number]). Doing well. Only complaint is some vaginal bleeding/watery discharge (recurrence is at vaginal apex). She is also very fatigued. Appetite is good. No N/V. Bowel and bladder function is normal. Gabapentin that was added for neuropathy at night has been very successful in controlling this symptoms. PMH:??h/o breast cancer x2, ?cervical cancer, h/o [...] years ago, no drugs, retired, lives in [place]. ?? FamHx:??Father-prostate, MGma-colon. ROS: 14 pt ROS performed with pertinent positives and negatives as noted in HPI. ROS otherwise negative Objective Physical Exam: Vital Signs for this encounter: BSA: 1.94 meters squared Visit Vitals BP 125/76 Pulse 96 Temp 36.8 ??C (98.3 ??F) Ht 1.613 m (5' 3.5 ) [...] Status: Asymptomatic PS= 0 Results: CBC WBC 4.94 Hgb 12.7 PLT 226 HCT 38.9 Lab Results Component Value Date NEUTROABS 3.10 08/04/2021 BASIC METABOLIC PANEL Na No results found for requested labs within last 8760 hours. Cl No results found for requested labs within last 8760 hours. BUN No results found for requested labs within last 8760 hours. Gluc No results found for requested labs within last 8760 hours. K No results found for requested labs within last 8760 hours. Co2 No results found for requested labs within last 8760 hours. Creat No results found for requested labs within last 8760 hours. LIVER FUNCTION TESTING Tot Prot No results found for requested labs within last 8760 hours. AST No results found for requested labs within last 8760 hours. Tot bili No results found for requested labs within last 8760 hours. ALT No results found for requested labs within last 8760 hours. Alkphos No results found for requested labs within last 8760 hours. Ca No results found for requested labs within last 8760 hours. Mg No results found for requested labs within last 8760 hours. Phos No results found for requested labs within last 8760 hours. === 06/30/21 === CT CHEST W IV CONTRAST - Narrative - Exam/Procedure: CT ABDOMEN PELVIS W IV CONTRAST, CT CHEST W IV CONTRAST ordered by PENNY BANERJEETUBAC, [id number] CLINICAL INDICATION: Ovarian cancer, surveillance TECHNIQUE: Multiple [...] 2.2 cm. Already has been radiated. Still belkofski sensitive (10-12 belkofski free interval between finishing last chemo 07/2019 and recurrence at cuff -06/2021. ?? First cycle of chemo today. Discussed the agents to be administered (Carboplatin), including route of administration (IV), expected side effects and potential toxicities (including but not limited tocytopenias, alopecia, renal and liver toxicity, neurotoxicity, hypersensitivity reaction, and nausea /vomiting) and frequency of administration (q21 days). Also discussed supportive medications and prn medications. Discussed planned hematologic and electrolyte monitoring schedule (will need intensive weekly evaluation).. All questions answered. Problem 2: Cervical cancer?? Assessment and plan 2: Distant history, correction survivor. ??No signs of recurrence. ?? Problem [...] approval, and documentation. 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 Will proceed with single agent carboplatin (last treated with belkofski 08/26/19). This will be her 13th lifetime dose of carboplatin. Dosing Wt: 84.9 kg Today's Wt: Wt Readings from Last 1 Encounters: 08/04/21 84.1 kg (185 lb 6.5 oz) Dosing Ht: 160 cm DosingBSA: 1.88 m2 Recent Labs: Lab Results Component Value Date WBC 4.94 08/04/2021 HGB 12.7 08/04/2021 HCT 38.9 08/04/2021 MCV 97 08/04/2021 PLT 226 08/04/2021 Lab Results Component Value Date GLUCOSE 112 (H) 08/04/2021 CALCIUM 9.0 08/04/2021 NA 141 08/04/2021 K 4.3 08/04/2021 CO2 24 08/04/2021 CL 106 08/04/2021 BUN 23 08/04/2021 CREATININE 0.62 08/04/2021 Lab Results Component Value Date ALT 10 08/04/2021 AST 14 08/04/2021 ALKPHOS 46 08/04/2021 BILITOT 0.2 08/04/2021 No results found for: NEUTROABS Lab Results Component Value Date MG 1.8 (L) 08/04/2021 Vitals: Vitals: 08/04/21 1319 BP: 125/76 Pulse: 96 Temp: 36.8 ??C (98.3 ??F) Other Relevant Monitoring: For carboplatin: AdjBW (BMI >25): 65.4 kg SCr: 0.62 mg/dL (minimum 0.7 mg/dL utilized for calculation) eCrCl: 72 mL/min Treatment Plan: Carboplatin AUC 5 (483.5 mg) IV D1 Every 21 days [x] No dose adjustments made Current Treatment Plan History: Carboplatin #1: 08/04/21 - 13th lifetime dose Prior Chemotherapy History: hormone therapy for prior breast cancer carboplatin/paclitaxel Cycle 1: 04/11/18 Cycle 2: 05/02/18 Cycle 3: 05/23/18 Cycle 4: 08/01/18 Cycle 5: 08/22/18 Cycle 6: 09/12/18 Carboplatin q21d #1: 05/06/19 #2: 06/03/19 #3: 06/24/19 #4: 07/15/19 #5: 08/05/19 #6: 08/26/19 Olaparib continuous oral therapy 09/2019 - 01/2020 (dose reduced and then d/c'd d/t fatigue/anemia ?? Assessment/Plan: Supportive care prescriptions sent to [address] for delivery on first day of treatment. I reviewed the patient's chart and chemotherapy orders were approved. Patient okay to proceed with chemotherapy. Patient will return to clinic in 3 weeks. Will follow-up at that time. Pharmacist Attestation: Norma Zamora PharmD, [facility] Hematology/Oncology Clinical Pharmacist * Progress Notes - Norma Zamora PharmD - 08/04/2021 1:30 PM EST Pharmacy Hemtatology/Oncology Patient Education Note I counseled the patient on their chemotherapy regimen, which was scheduled to start 08/04/2021. The chemotherapy agents that this patient is scheduled to receive include: carboplatin. I provided the patient with a written explanation of the drugs contained in the regimen and their expected side effects, toxicities, and adverse reactions. Since this will be her 13th lifetime dose, I reiterated the possibility of reactions that may require desensitization. I provided verbal explanation of the same material and provided methods for self- monitoring. I answered all questions that the patient and/or caregiver had. The patient and/or caregiver demonstrated understanding of the material, and wished to proceed with the treatment. documented in this encounter Plan of Treatment Upcoming Encounters Date Type Department Care Team (Late st Contact Info) Description 08/05/2024 8:00 AM EST Office Visit [facility] Gynecology [address] [facility] [address] [place] [address] Penny Carmona MD [address] [facility] [address] [facility] [address] [place] [address] 08/05/2024 9:30 AM EST Appointment [facility] [address] [place] [address] 02/26/2025 9:30 AM EDT Appointment [facility] Breast Care [facility] [address] [facility] [address] [place] [address] 02/26/2025 10:30 AM EDT Office Visit [facility] Breast [facility] [place] [address] [facility], [address]nd [place] [address] Berenice Resendez, [employer] [address] [facility] [address] [facility] [address] [place] [address] documented as of this encounter Procedures Procedure Name Priority Date/Time Associated Diagnosis Comments CBC WITH AUTO DIFFERENTIAL Routine 08/04/2021 1:40 PM EST Carcinoma of fallopian tube, unspecified laterality (CMS/HCC) HCG, QUANTITATIVE Routine 08/04/2021 1:4 0 PM EST Carcinoma of fallopian tube, unspecified laterality (CMS/HCC) MAGNESIUM, PLASMA STAT 08/04/2021 1:4 0 PM EST Carcinoma of fallopian tube, unspecified laterality (CMS/HCC) COMPREHENSIVE METABOLIC PANEL, PLASMA Routine 08/04/2021 1:40 PM EST Carcinoma of fallopian tube, unspecified laterality (CMS/HCC) documented in this encounter Results * CBC and differential (08/04/2021 1:40 PM EST) WBC Count 4.94 3.70 - 10.30 10*3/uL LAB HEMATOLOGY METHOD 08/04/2021 2:00 PM [facility] RBC Count 4.03 3.90 - 5.20 10*6/uL LAB HEMATOLOGY METHOD 08/04/2021 2:00 PM [facility] HGB 12.7 11.2 - 15.7 g/dL LAB HEMATOLOGY METHOD 08/04/2021 2:00 PM [facility] HCT 38.9 34.0 - 45.0 % LAB HEMATOLOGY METHOD 08/04/2021 2:00 PM [facility] Platelet Count 226 155 - 369 10*3/uL LAB HEMATOLOGY METHOD 08/04/2021 2:00 PM [facility] MCV 97 79 - 98 fL LAB HEMATOLOGY METHOD 08/04/2021 2:00 PM [facility] MCH 31.5 26.0 - 32.0 pg LAB HEMATOLOGY METHOD 08/04/2021 2:00 PM [facility] MCHC 32.6 30.7 - 35.5 g/dL LAB HEMATOLOGY METHOD 08/04/2021 2:00 PM [facility] RDW 13.7 11.5 - 14.5 % LAB HEMATOLOGY METHOD 08/04/2021 2:00 PM [facility] MPV 9.3 8.8 - 12.5 fL LAB HEMATOLOGY METHOD 08/04/2021 2:00 PM [facility] nRBC 0.0 <=0.0 per 100 WBCs LAB HEMATOLOGY METHOD 08/04/2021 2:00 PM [facility] Differential Type Automated LAB HEMATOLOGY METHOD 08/04/2021 2:00 PM [facility] Neutrophils % 62.0 % LAB HEMATOLOGY METHOD 08/04/2021 2:00 PM [facility] Lymphocytes % 25.0 % LAB HEMATOLOGY METHOD 08/04/2021 2:00 PM [facility] Monocytes % 7.0 % LAB HEMATOLOGY METHOD 08/04/2021 2:00 PM [facility] Eosinophils % 5.0 % LAB HEMATOLOGY METHOD 08/04/2021 2:00 PM [facility] Basophils % 1.0 % LAB HEMATOLOGY METHOD 08/04/2021 2:00 PM [facility] Immature Granulocytes % 0.0 % LAB HEMATOLOGY METHOD 08/04/2021 2:00 PM [facility] Neutrophils Absolute 3.10 1.60 - 6.10 10*3/uL LAB HEMATOLOGY METHOD 08/04/2021 2:00 PM EST [facility] Lymphocytes Absolute 1.24 1.20 - 3.90 10*3/uL LAB HEMATOLOGY METHOD 08/04/2021 2:00 PM EST [facility] Monocytes Absolute 0.32 0.30 - 0.90 10*3/uL LAB HEMATOLOGY METHOD 08/04/2021 2:00 PM EST [facility] Eosinophils Absolute 0.24 0.00 - 0.50 10*3/uL LAB HEMATOLOGY METHOD 08/04/2021 2:00 PM EST [facility] Basophils Absolute 0.03 0.00 - 0.10 10*3/uL LAB HEMATOLOGY METHOD 08/04/2021 2:00 PM EST [facility] Immature Granulocytes Absolute 0.01 0.00 - 0.06 10*3/uL LAB HEMATOLOGY METHOD 08/04/2021 2:00 PM EST [facility] Blood Blood sample taken from central line / Unknown Venipuncture / Unknown 08/04/2021 1:40 PM EST 08/04/2021 1:55 PM EST Narrative [facility] - 08/04/2021 2:00 PM EST Therapeutic decision making should be based on absolute values, rather than percentages. us Penny Dodson MD LAB BLOOD ORDERABLES Final Result [facility] [address] [place], [place] [id number] * (ABNORMAL) Comprehensive metabolic panel (08/04/2021 1:40 PM EST) Glucose, Plasma 112(H) 74 - 99 mg/dL 08/04/2021 3:08 PM EST [facility] BUN, Plasma 23 8 - 23 mg/dL 08/04/2021 3:08 PM EST [facility] Creatinine, Plasma 0.62 0.60 - 1.10 mg/dL 08/04/2021 3:08 PM EST [facility] BUN/Creatinine Ratio 37 08/04/2021 3:08 PM EST [facility] Sodium, Plasma 141 136 - 145 mmol/L 08/04/2021 3:08 PM EST [facility] Potassium, Plasma 4.3 3.7 - 4.8 mmol/L 08/04/2021 3:08 PM [facility] Chloride, Plasma 106 97 - 107 mmol/L 08/04/2021 3:08 PM [facility] CO2, Plasma 24 22 - 29 mmol/L 08/04/2021 3:08 PM [facility] Anion Gap 11 6 - 16 mmol/L 08/04/2021 3:08 PM [facility] Total Calcium, Plasma 9.0 8.9 - 10.2 mg/dL 08/04/2021 3:08 PM [facility] Total Protein 6.2(L) 6.3 - 7.9 g/dL 08/04/2021 3:08 PM [facility] Albumin, Plasma 4.0 3.5 - 5.2 g/dL 08/04/2021 3:08 PM [facility] AST, Plasma 14 9 - 36 U/L 08/04/2021 3:08 PM [facility] ALT, Plasma 10 8 - 33 U/L 08/04/2021 3:08 PM [facility] Alkaline Phosphatase, Plasma 46 46 - 142 U/L 08/04/2021 3:08 PM [facility] Total Bilirubin, Plasma 0.2 0.2 - 1.1 mg/dL 08/04/2021 3:08 PM [facility] eGFR >60 >60 mL/min/1.7 3m*2 08/04/2021 3:08 PM [facility] Comment:eGFR = estimated GFR ; eGFR units = mL/min/1.73 sq meters Chronic Kidney Disease is considered if eGFR <60 mL/min/1.73 sq meters Kidney failure is considered if eGFR is <15 mL/min/1.73 sq meters. eGFR assumes steady state plasma creatinine concentration; not applicable if renal function is rapidly changing or patient is on dialysis. eGFR, if AFR/AM >60 >60 mL/min/1.7 3m*2 08/04/2021 3:08 PM [facility] Comment:eGFR = estimated GFR ; [...] central line / Unknown Venipuncture / Unknown 08/04/2021 1:40 PM EST 08/04/2021 2:16 PM EST Penny Dodson MD LAB BLOOD ORDERABLES Final Result Performing Organization Address [facility] Co de Phone Number [facility] [address] [place] [address] * hCG, quantitative, (08/04/2021 1:40 PM EST) hCG, Total Beta 4.34 <5 mIU/mL 08/04/2021 3:08 PM EST [facility] Blood Blood sample taken from central line / Unknown Venipuncture / Unknown 08/04/2021 1:40 PM EST 08/04/2021 2:16 PM EST Narrative [facility] - 08/04/2021 3:08 PM EST Patients: ? Normal Range Premenopausal Female < 5 mIU/mL Male ?< 3 mIU/mL Postmenopausal Female < 8 mIU/mL The [employer] Ele[employer] hCG+beta assay is standardized to the 4th IS for Chorionic Gonadotropin. ??The combination of the specific monoclonal antibodies used in this assay recognizes the holo-hormone, nicked forms of hCG, the Beta-core Fragment and the free beta-subunit. ?? Elevated hCG concentrations not associated with are found in patients with gestational trophoblastic disease and choriocarcinoma as well as germ cell, ovarian, bladder, pancreas, stomach, lung and liver tumors. Penny Dodson MD LAB BLOOD ORDERABLES Final Result Performing Organization Address [facility] Co de Phone Number [facility] [address] [place] [address] * (ABNORMAL) Magnesium (08/04/2021 1:40 PM EST) Magnesium, Plasma 1.8(L) 1.9 - 2.4 mg/dL 08/04/2021 3:08 PM EST [facility] Blood Blood sample taken from central line / Unknown Venipuncture / Unknown 08/04/2021 1:40 PM EST 08/04/2021 2:16 PM EST us Penny Dodson MD LAB BLOOD ORDERABLES Final Result [facility] [address] [place] [address] documented in this encounter Visit Diagnoses Diagnosis Carcinoma of fallopian tube, unspecified laterality (CMS/HCC)- Primary Malignant neoplasm of cervix, unspecified site (CMS/HCC) Neuropathy Mononeuritis of unspecified site documented in this encounter Additional Health Concerns Assessment Noted Time A fall risk assessment has been complete d for the patient 08/04/2021 2:23 PM EST documented as of this encounter Care Teams Device Repair Technician Relationship Specialty Start Date End Date Leny Valdes DO [address] [place], [place] [id number] PCP - General 12/11/20 12/13/21 Aliyah Valencia MD [address] [place] [address] Referring Physician 03/10/21 documented as of this encounter
--- OUTSIDE RECORDS SUMMARY | 2024-07-10 12:03 | XMS_ITS | Encounter Summary ---
Author Organization [facility] Address [address] [place], [place] [id number] Care Team Providers Care Telecom Coordinator Name Role Phone LucioNuraмаринаfang Lida CAMERON Primary Care Provider [phone] Aliyah Valencia MD Unavailable [phone] Reason for Visit * Reason Comments Follow-up Encounter Details Date Type Department Care Team (Late st Contact Info) Description 03/31/2021 3:15 PM EDT Office Visit [facility] [address] [place] [address] Penny Carmona MD [address] [facility] [address] [place] [address] 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); Malignant neoplasm of cervix, unspecified site (CMS/HCC); Malignant neoplasm of left breast in female, estrogen receptor positive, unspecified site of breast (CMS/HCC); Neuropathy Social History Tobacco Use Types [...] Sign Reading Time Taken Comments Blood Pressure 124/65 03/31/2021 3:26 PM EDT Pulse 94 03/31/2021 3:26 PM EDT Temperature - - Respiratory Rate - - Oxygen Saturation - - Inhaled Oxygen Concentration - - Weight 81.5 kg (179 lb 10.8 oz) 03/31/2021 3:26 PM EDT Height 161.5 cm (5' 3.6 ) 03/31/2021 3:26 PM EDT Body Mass Index 31.23 03/31/2021 3:26 PM EDT documented in this encounter Miscellaneous Notes * Progress Notes - Penny Carmona MD - 03/31/2021 3:15 PM EDT Referring Physician: Aliyah Valnecia MD [facility] [place] [address] Primary Care Provider: Leny Valdes DO History of Present Illness: Chief complaint: 75 yo female here for surveillance visit for fallopian tube cancer. Oncologic history is as follows: Oncology History Cervical cancer (CMS/HCC) 1985 Initial Diagnosis Cervical [...] additional cycles of Carbo/Taxol 09/12/2018 - Ca125 02-40-77-9-8 - Post treatment CT 10/01/2018 JARED 09/2018 [...] - [place]edocol[place] [place] - Ca125: 06-6-1-7-7-9-8 - Started Parp inhibitor 09/2019 - Dose [...] findings - Most recent Ca125 6 (11/09/2020) Breast cancer history: - Original diagnosed left breast in s - Second lumpectomy for cancer in left breast 2017 - On anastrazole Interval updates to history: Oncologic treatment history as described above reviewed today as well as PMH/PSH/Meds/All/SH/FH, with updates made as appropriate. Patient is here today for surveillance.She is overall feeling well at this time - has been able to gain a bit of energy back since has been off treatment since Aug. She denies any interval changes to her history other than some recurrent hives this year - well puller head is treating.. She reports a normal appetite, denies N/V, and denies significant unintended weight loss. She reports her bowel and bladder function to be within normal limits for her without new complaints (uses prn stool softener and has chronic mild urinary incontinence). She denies VB. She denies new or worsening abdominal or pelvic pain. She denies new SOA or CP. Shedenies new or asymmetric edema of the lower extremities. No other complaints today. PMH: h/o breast cancer x2, [...] years ago, no drugs, retired, lives in [place]. FamHx: Father-prostate, MGma-colon. ROS: 14 pt ROS performed with pertinent positives and negatives as noted in HPI. ROS otherwise negative Objective Physical Exam: Vital Signs for this encounter: BSA: 1.91 meters squared Visit Vitals BP 124/65 Pulse 94 Ht 1.615 m (5' 3.6 ) Wt 81.5 kg (179 lb 10.8 oz) BMI 31.23 kg/m?? Smoking Status Former Smoker BSA 1.91 m?? Physical Exam Vitals and nursing note reviewed. Exam conducted with a controller repairer and tester present. Constitutional: Appearance: Normal appearance. HENT: Head: Normocephalic and atraumatic. Eyes: General: Vision grossly intact. Conjunctiva/sclera: Conjunctivae normal. Cardiovascular: Rate and Rhythm: Normal rate. Pulmonary: Effort: Pulmonary effort is normal. Abdominal: General: There is no distension. Palpations: Abdomen is soft. There is no mass. Tenderness: There is no abdominal tenderness. There is no guarding. Genitourinary: General: Normal vulva. Exam position: Lithotomy position. Pubic Area: No rash. Labia: Right: No rash or lesion. Left: No rash or lesion. Urethra: No urethral lesion. Vagina: Normal. No vaginal discharge, bleeding or lesions. Uterus: Absent. Adnexa: Right: No mass. Left: No mass. Rectum: No external hemorrhoid. Musculoskeletal: General: Normal range of motion. Cervical back: Normal range of motion. Lymphadenopathy: Lower Body: No right inguinal adenopathy. No left inguinal adenopathy. Skin: General: Skin is warm. Neurological: General: No focal deficit present. Mental Status: She is alert and oriented to person, place, and time. Psychiatric: Mood and Affect: Mood and affect normal. Behavior: Behavior normal. Behavior is cooperative. Thought Content: Thought content normal. Judgment: Judgment normal. Performance Status: Asymptomatic PS= 0 Results: === 11/27/20 === CT CHEST W IV CONTRAST - Narrative - REQUESTING PHYSICIAN: PENNY BANERJEE REASON FOR EXAMINATION/PROCEDURE: RAD PDP:Y * fallopian tube ca EXAMINATION / PROCEDURE: CT Chest W IVCON Nov 27 2020 - 16:12; CT Abdomen & Pelvis W IVCON Nov 27 2020 - 16:12; CLINICAL INDICA TION: RAD PDP:Y * fallopian tube ca TECHNIQUE: Multiple axial CT images were obtained from thoracic inlet through pubic symphysis following administration of IV contrast, Omnipaque 300, 100 mL. Reformatted images of the abdomen and pelvi s in the coronal and sagittal planes were generated from the axial data set to facilitate diagnostic accuracy. Total DLP (Dose-Length Product): 577.53 mGy.cm. Please note: The reported value represents the total of one or more individual comp onents during the CT acquisition on this date and at this time, and as such, the same value may appear in more than one CT report depending on the interpreting/reporting physicians. COMPARISON: CT chest/abdomen/pelvis from 07/22/2020 and elizabeth prior studies dating back to 07/15/2019. FINDINGS: Chest: Lymph Nodes and Mediastinum: No lymphadenopathy by CT size criteria. No mediastinal mass lesions. No suspicious thyroid findings. MediPort right IJ catheter terminates in the SVC. Heart valve calcifications. Cardiovascular: The heart is normal in caliber. Thoracic great vessels are patent. Mild coronary artery calcifications. Lungs and Pleura: No suspicious lung nodules to suggest metastatic disease. No ple ural effusions. Mild bibasilar atelectasis. Right upper lobe pulmonary nodule, previously seen on prior images, measures 3 mm and is unchanged in size (11/16). Musculoskeletal and Body Wall: No clearly aggressive bone lesions. Evidence of prio r left breast lumpectomy. Stable sclerotic foci in the proximal sternal body and manubrium which are present on multiple prior studies dating back to 07/15/2019 (series 5, image 135). Ill-defined sclerotic focus in the left T12 vertebral body woody s also been present on multiple prior studies dating back to 07/15/2019. Abdomen/Pelvis: Liver, Gallbladder, Biliary Tract: Unremarkable. Spleen: Splenules.. Pancreas: Fatty infiltration of pancreas. No pancreatic ductal dilatation. Adrenal Glands: Unchanged myolipoma the left adrenal gland measuring up to 16mm (). Indeterminate right adrenal mass measuring 18 mm, unchanged (). 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 Low-attenuation kidney nodules are too small to characterize, unchanged. Lymph Nodes: No lymphadenopathy by CT size criteria. Vasculature: The aortoiliac vasculature is normal in caliber and patent throughout demonstrating moderate atherosclerotic changes. GI Tract/Mesentery/Peritoneum: Stomach is within normal limits. Large periampullary duodenal diverticulum is redemonstrated and unchanged. Interval worsening of small bowel and fat-containing ventral hernia without upstream bowel obstruction. Pelvic Viscera: Uterus and ovaries are absent. Right vaginal cuff nodule has decreased in size compared to prior study from 07/22/2020, now measuring 22 x 20 mm and oblique axial and craniocaudal planes compared to 31 x 25 mm on prior study (3/250, 4/128). Free Fluid: No ascites. Musculoskeletal and Body Wall: No lytic or blastic bone lesions. - Impression - Chest: No evidence of disease progression. Stable sclerotic foci in the proximal sternal body, manubrium and T12 v ertebral body which are unchanged since multiple prior studies dating back to 07/15/2019. The proximal sternal body lesion likely represents a healed fracture deformity secondary to adjacent callus which was increasing on the August 2019 study , underlying osseous lesion is not excluded. The other manubrial and vertebral body lesions could represent osseous metastasis. Recommend continued attention on follow-up imaging. Abdomen/Pelvis: Interval decrease in the size of right vaginal c uff nodule compared to 07/22/2020 consistent with treatment response. No evidence of peritoneal carcinomatosis or abdominal/pelvic ascites. No evidence of abnormal adenopathy in the abdomen/pelvis. 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 Interval worsening of small bowel and fat-containing ventral hernia without upstream bowel obstruction. CRITICAL RESULT: No. COMMUNICATION: Per this written report. Verified by: JOHN ENGLE M.D. on Nov 27 2020 4:54P Transcribed by: [facility] on Nov 27 2020 4:54P Dictated by: JOHN ENGLE M.D. on Nov 27 2020 4:28P Assessment/Plan Problem 1: Recurrent serous fallopian tube cancer (right) Assessment and plan 1: s/p chemo, debulking. Chemo for recurrence. Most recently had radiation. Doing very well today. Clinically patient remains in remission at this time. Reviewed importance of continued surveillancefor signs of recurrence with office visits and pelvic exam and Ca125 q 3 months. Reviewed symptoms to watch for, including vaginal bleeding, pelvic pain, new or persistent GI disturbances, new SOA, or new/asymmetrical lower extremity edema. Check Ca125 today and RTC [address] 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 Problem 3: History of left breast cancer x 2 Assessment and plan 3: On anastrazole - continue. No current signs of disease Problem 4: Syncopal epsidoes Assessment and plan 4: Followed by [facility] at for this. Also followed by [facility] for carotid stenosis. No recent episodes. Problem 5: Difficult IV access Assessment and plan 5: Has port Problem 6: Neuropathy Assessment and plan 6: Treatment related, stable and mild Team based care includes nurse intake, review of prior documentation, history, physical exam, discussion of plan of care, appointment scheduling, lab orders, pblebotomy, and documentation. Encounter time 25 min MD ADRIANA Arana [facility] [address] [facility] [address] [facility] [address] Dept: [phone] Dept Loc: [phone] documented in this encounter Plan of Treatment Upcoming Encounters Date Type Department Care Team (Late st Contact Info) Description 08/05/2024 8:00 AM EST Office Visit [facility] Gynecology [address] Penny Carmona MD [address] [facility] [address] [facility] [address] [place] [id number] 08/05/2024 9:30 AM EST Appointment [facility] Infusion Clinic [address] [place] [address] 02/26/2025 9:30 AM EDT Appointment [facility] Breast [facility] [address] [facility] [address] [place] [address] 02/26/2025 10:30 AM EDT Office Visit [facility] Breast [facility] [place] [address] [facility] [place] [address] Berenice Resendez, CUTTER HEAD SHARPENER [address] [facility] [address] [facility] [address] [place] [address] documented as of this encounter Procedures Procedure Name Priority Date/Time Associated Diagnosis Comments CA 125 Routine 03/31/2021 4:15 PM EDT Carcinoma of right fallopian tube (CMS/HCC) documented in this encounter Results * CA 125 (03/31/2021 4:15 PM EDT) CA 125 7.49 <=38.00 U/mL 03/31/2021 5:23 PM EDT [facility] Blood Venous blood specimen / Unknown Venipuncture / Unknown 03/31/2021 4:15 PM EDT 03/31/2021 4:46 PM EDT Penny Dodson MD LAB BLOOD ORDERABLES Final Result [facility] [address] [place] [address] documented in this encounter Visit Diagnoses Diagnosis Carcinoma of right fallopian tube (CMS/HCC)- Primary Malignant neoplasm of cervix, unspecified site (CMS/HCC) Malignant neoplasm of left breast in female, estrogen receptor positive, unspecified site of breast (CMS/HCC) Neuropathy Mononeuritis of unspecified site documented in this encounter Additional Health Concerns Assessment Noted Time A fall risk assessment has been complete d for the patient 03/31/2021 3:26 PM EDT documented as of this encounter Care Teams Telecom Coordinator Relationship Specialty Start Date End Date Leny Valdes DO [address] [place] [address] PCP - General 12/11/20 12/13/21 Aliyah Valencia MD [address] [place] [place] [address] Referring Physician 03/10/21 documented as of this encounter
--- OUTSIDE RECORDS SUMMARY | 2024-07-10 12:03 | XMS_ITS | Encounter Summary ---
Author Organization Healthcare Address [address] [place] [address] Care Team Providers Care Career Education Teacher Name Role Phone LucioNuraмаринаfang Lida CAMERON Primary Care Provider [phone] Aliyah Valencia MD Unavailable [phone] Reason for Visit * Reason Comments Follow-up Encounter Details Date Type Department Care Team (Late st Contact Info) Description 06/30/2021 3:30 PM EST Office Visit [facility] [address] [place] [address] Penny Carmona MD [address] [facility] [address] [place] [address] Carcinoma of fallopian tube, unspecified laterality (CMS/HCC) (Primary Dx); Neuropathy; Malignant neoplasm of cervix, unspecified site (CMS/HCC) Social History Tobacco Use Types Packs/Day [...] Sign Reading Time Taken Comments Blood Pressure 118/76 06/30/2021 2:50 PM EST Pulse 101 06/30/2021 2:50 PM EST Temperature - - Respiratory Rate - - Oxygen Saturation - - Inhaled Oxygen Concentration - - Weight 84.9 kg (187 lb 2.7 oz) 06/30/2021 2:50 P M EST Height 160 cm (5' 3 ) 06/30/2021 2:50 PM EST Body Mass Index 33.16 06/30/2021 2:50 PM EST documented in this encounter Miscellaneous Notes * Progress Notes - Penny Carmona MD - 06/30/2021 3:30 PM EST Referring Physician: No referring provider defined for this encounter. 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 Oncologic history is [...] she underwent a left needle localized lumpectomy. [place] lymph node biopsy was not performed as [...] Initiated neoadjuvant chemo with carbo/Taxol per [employer] followed by BSO/Omentectomy and adjuvant Carbotaxol. Recurrence in March 2019. Treated with carbo initially followed by Olaparib. 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 She is currently off of therapy. She follows with Dr. Banerjee in [facility]. 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 Recurrence - First recurrence, kotzebue sensitive - CT 04/10/19 with 3 cmlesion at cuff - Ca125 12 (from 8) - MTB discussion: recommend trial if progression on kotzebue regimen or consider Parp for RAD 51 [...] - [place] c[place] - Ca125: 12-0-0-7-7-9-8 - Started Parp inhibitor 09/2019 - Dose [...] concerning findings - Most recent Ca125 7.49 (93850) 08/04/2021 - Chemotherapy CARBOplatin (Paraplatin) 483.5 mg in sodium chloride 0.9 % 250 mL chemo IVPB, 483.5 mg, Intravenous, Once, 0 of 6 cycles Recurrence - Third recurrence, kotzebue sensitive - CT 06/30/2021 shows vaginal cuff mass has grown to 4 cm (from 2.2 at last check). Also with interval enlargement of a adrenal nodule on right Interval updates to history: Oncologic treatment history as described above reviewed today as well as PMH/PSH/Meds/All/SH/FH, with updates made as appropriate. Patient is here today for surveillance and to review CT results from today. She is overall feeling well at this time. She reports leaking of urine that is fairly constant. She reports a normal appetite, denies N/V, and denies significant unintended weight loss. She reports her bowel function to be within normal limits for her without newcomplaints. She has noted a few times a week she is awoken at night with pain and itching and burning in her hands. Ice helps. She has occasional and very light VB.. She denies new or worsening abdomi nal or pelvic pain. She denies new SOA or CP. She denies new or asymmetric edema of the lower [...] years ago, no drugs, retired, lives in [place]. ?? FamHx: Father-prostate, MGma-colon. ROS: 14 pt ROS performed with pertinent positives and negatives as noted in HPI. ROS otherwise negative Objective Physical Exam: Vital Signs for this encounter: BSA: 1.94 meters squared Visit Vitals BP 118/76 Pulse 101 Ht 1.6 m (5' 3 ) Wt 84.9 kg (187 lb 2.7 oz) BMI 33.16 kg/m?? Smoking Status Former Smoker BSA 1.94 m?? [...] Status: Asymptomatic PS= 0 Results: CBC WBC No results found for requested labs within last 8760 hours. Hgb No results found for requested labswithin last 8760 hours. PLT No results found for requested labs within last 8760 hours. HCT No results found for requested labs within last 8760 hours. No results found for: NEUTROABS BASIC METABOLIC PANEL Na No results found [...] CHEST W IV CONTRAST ordered by PENNY BANERJEEDETROIT, [id number] CLINICAL INDICATION: Ovarian cancer, surveillance TECHNIQUE: Multiple [...] Chemo for recurrence. Most recently had radiation. Viewed images and imaging report from CT today (06/30/2021) and discussed with patient. ?? Has recurrence per today's CT with a vaginal mass up to 4 cm from 2.2 cm. Already has been radiated. Still kotzebue sensitive (10-12 kotzebue free interval between finishing last chemo 07/2019 and recurrence at cuff -06/2021. Plan single agent Carbo. Would like to start after [place]. Check Ca125 today. Chemo scheduled and ordered for 08/04/2020 today. 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 Problem 3: History of left breast cancer x 2 Assessment and plan 3: On anastrazole - continue. No current signs of disease Problem 4: Syncopal epsidoes Assessment and plan 4: Followed by cards at for this. Also followed by [facility] for carotid stenosis. No recent episodes. Problem 5: Difficult IV access Assessment and plan 5: Has port Problem 6: Neuropathy Assessment and plan 6: Treatment related. Appears to be worsening at night. Will not use Taxol again. Will try Gabapentin at night. Sent to pharmacy and Nghia reviewed. Team based care includes nurse intake, review of prior documentation, review of images and imaging report, history, physical exam, discussion of CT results, discussion of plan of care, appointment scheduling, lab orders, port blood draw, nghia review, script submission and documentation. Encountertime 35 min MD ADRIANA Arana [facility] [address] [facility] [address] Dept: [phone] Dept Loc: [phone] documented in this encounter Plan of Treatment Upcoming Encounters Date Type Department Care Team (Late st Contact Info) Description 08/05/2024 8:00 AM EST Office Visit [facility] [address] [place] [address] Penny Carmona MD [address] [facility] [address] [facility] [address] [place] [address] 08/05/2024 9:30 AM EST Appointment [facility] [address] [place] [address] 02/26/2025 9:30 AM EDT Appointment [facility] [address] [facility] [address] [place] [address] 02/26/2025 10:30 AM EDT Office Visit [facility] [address] [facility] [place] [address] Berenice Resendez, PAYROLL COORDINATOR [address] [facility] [address] [facility] [address] [place] [address] documented as of this encounter Procedures Procedure Name Priority Date/Time Associated Diagnosis Comments CA 125 Routine 06/30/2021 3:55 PM EST Carcinoma of fallopian tube, unspecified laterality (CMS/HCC) documented in this encounter Results * (ABNORMAL) Magnesium (08/04/2021 1:40 PM EST) Magnesium, Plasma 1.8(L) 1.9 - 2.4 mg/dL 08/04/2021 3:08 PM EST [facility] Blood Blood sample taken from central line / Unknown Venipuncture / Unknown 08/04/2021 1:40 PM EST 08/04/2021 2:16 PM EST us Penny Dodson MD LAB BLOOD ORDERABLES Final Result Performing Organization Address [facility] Co de Phone Number [facility] [address] [place] [address] * hCG, quantitative, (08/04/2021 1:40 PM EST) hCG, Total Beta 4.34 <5 mIU/mL 08/04/2021 3:08 PM EST [facility] Blood Blood sample taken from central line / Unknown Venipuncture / Unknown 08/04/2021 1:40 PM EST 08/04/2021 2:16 PM EST Narrative [facility] - 08/04/2021 3:08 PM EST [...] BLOOD ORDERABLES Final Result Performing Organization Address City/[facility] Co de Phone Number [facility] [address] [place] [address] * (ABNORMAL) Comprehensive metabolic panel (08/04/2021 1:40 PM EST) Glucose, Plasma 112(H) 74 - 99 mg/dL 08/04/2021 3:08 PM EST [facility] BUN, Plasma 23 8 - 23 mg/dL 08/04/2021 3:08 PM EST [facility] Creatinine, Plasma 0.62 0.60 - 1.10 mg/dL 08/04/2021 3:08 PM EST [facility] BUN/Creatinine Ratio 37 08/04/2021 3:08 PM EST [facility] Sodium, Plasma 141 136 - 145 mmol/L 08/04/2021 3:08 PM [facility] Potassium, Plasma 4.3 3.7 - 4.8 mmol/L 08/04/2021 3:08 PM [facility] Chloride, Plasma 106 97 - 107 mmol/L 08/04/2021 3:08 PM [facility] CO2, Plasma 24 22 - 29 mmol/L 08/04/2021 3:08 PM [facility] Anion Gap 11 6 - 16 mmol/L 08/04/2021 3:08 PM [facility] Total Calcium, Plasma 9.0 8.9 - 10.2 mg/dL 08/04/2021 3:08 PM [facility] Total Protein 6.2(L) 6.3 - 7.9 g/dL 08/04/2021 3:08 PM [facility] Albumin, Plasma 4.0 3.5 - 5.2 g/dL 08/04/2021 3:08 PM [facility] AST, Plasma 14 9 - 36 U/L 08/04/2021 3:08 PM [facility] ALT, Plasma 10 8 - 33 U/L 08/04/2021 3:08 PM [facility] Alkaline Phosphatase, Plasma 46 46 - 142 U/L 08/04/2021 3:08 PM [facility] Total Bilirubin, Plasma 0.2 0.2 - 1.1 mg/dL 08/04/2021 3:08 PM [facility] eGFR >60 >60 mL/min/1.7 3m*2 08/04/2021 3:08 PM [facility] Comment:eGFR = estimated GFR [...] >60 >60 mL/min/1.7 3m*2 08/04/2021 3:08 PM [facility] Comment:eGFR = estimated GFR [...] Dodson MD LAB BLOOD ORDERABLES Final Result [facility] [address] [place] [address] * CBC and differential (08/04/2021 1:40 PM EST) WBC Count 4.94 3.70 - 10.30 10*3/uL LAB HEMATOLOGY METHOD 08/04/2021 2:00 PM EST [facility] RBC Count 4.03 3.90 - 5.20 10*6/uL LAB HEMATOLOGY METHOD 08/04/2021 2:00 PM EST [facility] HGB 12.7 11.2 - 15.7 g/dL LAB HEMATOLOGY METHOD 08/04/2021 2:00 PM EST [facility] HCT 38.9 34.0 - 45.0 % LAB HEMATOLOGY METHOD 08/04/2021 2:00 PM EST [facility] Platelet Count 226 155 - 369 10*3/uL LAB HEMATOLOGY METHOD 08/04/2021 2:00 PM EST [facility] MCV 97 79 - 98 fL LAB HEMATOLOGY METHOD 08/04/2021 2:00 PM EST [facility] MCH 31.5 26.0 - 32.0 pg LAB HEMATOLOGY METHOD 08/04/2021 2:00 PM EST [facility] MCHC 32.6 30.7 - 35.5 g/dL LAB HEMATOLOGY METHOD 08/04/2021 2:00 PM EST [facility] RDW 13.7 11.5 - 14.5 % LAB HEMATOLOGY METHOD 08/04/2021 2:00 PM EST [facility] MPV 9.3 8.8 - 12.5 fL LAB HEMATOLOGY METHOD 08/04/2021 2:00 PM EST [facility] nRBC 0.0 <=0.0 per 100 WBCs LAB HEMATOLOGY METHOD 08/04/2021 2:00 PM EST [facility] Differential Type Automated LAB HEMATOLOGY METHOD 08/04/2021 2:00 PM EST [facility] Neutrophils % 62.0 % LAB HEMATOLOGY METHOD 08/04/2021 2:00 PM EST [facility] Lymphocytes % 25.0 % LAB HEMATOLOGY METHOD 08/04/2021 2:00 PM EST [facility] Monocytes % 7.0 % LAB HEMATOLOGY METHOD 08/04/2021 2:00 PM EST [facility] Eosinophils % 5.0 % LAB HEMATOLOGY METHOD 08/04/2021 2:00 PM EST [facility] Basophils % 1.0 % LAB HEMATOLOGY METHOD 08/04/2021 2:00 PM EST [facility] Immature Granulocytes % 0.0 % LAB HEMATOLOGY METHOD 08/04/2021 2:00 PM EST [facility] Neutrophils Absolute 3.10 1.60 - 6.10 10*3/uL LAB HEMATOLOGY METHOD 08/04/2021 2:00 PM EST [facility] Lymphocytes Absolute 1.24 1.20 - 3.90 10*3/uL LAB HEMATOLOGY METHOD 08/04/2021 2:00 PM EST [facility] Monocytes Absolute 0.32 0.30 - 0.90 10*3/uL LAB HEMATOLOGY METHOD 08/04/2021 2:00 PM EST [facility] Eosinophils Absolute 0.24 0.00 - 0.50 10*3/uL LAB HEMATOLOGY METHOD 08/04/2021 2:00 PM EST [facility] Basophils Absolute 0.03 0.00 - 0.10 10*3/uL LAB HEMATOLOGY METHOD 08/04/2021 2:00 PM EST [facility] Immature Granulocytes Absolute 0.01 0.00 - 0.06 10*3/uL LAB HEMATOLOGY METHOD 08/04/2021 2:00 PM EST [facility] Blood Blood sample taken from central line / Unknown Venipuncture / Unknown 08/04/2021 1:40 PM EST 08/04/2021 1:55 PM EST [facility] - 08/04/2021 2:00 PM EST Therapeutic decision making should be based on absolute values, rather than percentages. us Penny Dodson MD LAB BLOOD ORDERABLES Final Result [facility] [address] [place] [address] * CA 125 (06/30/2021 3:55 PM EST) CA 125 8.24 <=38.00 U/mL 06/30/2021 5:07 PM EST [facility] Blood Blood sample taken from central line / Unknown Venipuncture / Unknown 06/30/2021 3:55 PM EST 06/30/2021 4:11 PM EST Penny Dodson MD LAB BLOOD ORDERABLES Final Result [facility] [address] [place] [address] documented in this encounter Visit Diagnoses Diagnosis Carcinoma of fallopian tube, unspecified laterality (CMS/HCC)- Primary Neuropathy Mononeuritis of unspecified site Malignant neoplasm of cervix, unspecified site (CMS/HCC) documented in this encounter Additional Health Concerns Assessment Noted Time A fall risk assessment has been complete d for the patient 06/30/2021 2:57 PM EST documented as of this encounter Care Teams Career Education Teacher Relationship Specialty Start Date End Date Leny Valdes DO [address] [place] [address] PCP - General 12/11/20 12/13/21 Aliyah Valencia MD [address] [place] [place] [address] Referring Physician 03/10/21 documented as of this encounter
[2024-07-10 12:20] LABS: Basophils % 0.5 % (0.1-2.0); Eosinophils # 0.2 K/mm3 (0.0-0.4); Eosinophils % 3.1 % (0.1-12.0); Hematocrit 33.3 % (37.0-47.0); Hemoglobin 10.5 g/dL (12.2-16.2); Lymphocytes # 0.5 K/mm3 (0.7-4.5); Lymphocytes % 6.8 % (10-50); Mean Corpuscular HGB Conc 31.5 g/dL (31.8-35.4); Mean Corpuscular Hemoglobin 34.1 pg (27.0-31.2); Mean Platelet Volume 9.1 fl (7.4-10.4); Monocytes # 0.3 K/mm3 (0.1-1.0); Monocytes % 4.6 % (1.7-9.3); Neutrophils # 5.9 K/mm3 (1.8-7.8); Platelet Count 223 K/mm3 (142-424); Red Blood Count 3.09 M/mm3 (4.20-5.40); Red Cell Distribution Width 17.2 % (11.5-17.5); White Blood Count 6.9 K/mm3 (4.8-10.8)
[2024-07-10 12:24] LABS: Albumin Level 3.4 g/dl (3.5-5.0); Chloride 106 mmol/L (98-107); Potassium 4.5 mmoL/L (3.5-5.1); Sodium 133 mmol/L (136-145)
[2024-07-10 12:27] LABS: Alanine Aminotransferase 17 U/L (12-78); Albumin/Globulin Ratio 1.1 (1.1-1.8); Alkaline Phosphatase 73 U/L (38-126); Anion Gap 7.5 mEq/L (5-15); Aspartate Amino Transferase 35 U/L (14-36); Bilirubin,Total 0.6 mg/dl (0.2-1.3); Blood Urea Nitrogen 22 mg/dl (7-17); Calcium 8.8 mg/dl (8.4-10.2); Carbon Dioxide 24 mmol/L (22.0-30.0); Creatinine Clearance Estimated 44 mL/min (50-200); Estimated Glomerular Filt Rate 43 ml/min (>60); GFR (African American) 53 ML/MIN (>60); Globulin 3.1 g/dL (1.3-3.2); Glucose 132 mg/dl (74-100); Total Protein,Serum 6.5 g/dl (6.3-8.2)
[2024-07-10 12:29] LABS: MANUAL DIFFERENTIAL MANUAL DIFFERENTIAL (MANUAL DIFF)
[2024-07-10] MEDS: SODIUM CHLORIDE 0.9% 10ML FLUSH SYRINGE 10 ML IV (12:38)
[2024-07-10 13:45] LABS: Eosinophils % 6 % (0-3); Lymphocytes % 11 % (10-50); Monocytes % 1 % (2-9); Neutrophils % 82 % (42-76); Total Cells Counted 100
[2024-07-10 13:46] LABS: Macrocytosis 1+; Platelet Estimate Normal; Spherocytes 2+
== END 2024-07-10 12:10 | disposition home or self-care (01) ==
LOC: INF 11:49
PROVIDERS: PCP Internal Medicine; Visit Provider Obstetrics & Gynecology
DX: C57.00 Malignant neoplasm of unspecified fallopian tube (principal)
CPT/HCPCS: 36591; 80053; 85007; 85025; J1642

== ENCOUNTER 2024-07-17 11:30 | Outpatient (CLI) | payer MEDICARE, OTHER, SELFPAY ==
[2024-07-17 11:36] VITALS: BMI 29.2
[2024-07-17 12:07] LABS: Albumin Level 3.2 g/dl (3.5-5.0); Chloride 103 mmol/L (98-107); Potassium 4.5 mmoL/L (3.5-5.1); Sodium 131 mmol/L (136-145)
[2024-07-17 12:09] LABS: Blood Urea Nitrogen 32 mg/dl (7-17)
[2024-07-17] MEDS: SODIUM CHLORIDE 0.9% 10ML FLUSH SYRINGE 10 ML IV (12:09)
[2024-07-17 12:10] LABS: Alanine Aminotransferase 14 U/L (12-78); Albumin/Globulin Ratio 1.1 (1.1-1.8); Alkaline Phosphatase 72 U/L (38-126); Aspartate Amino Transferase 30 U/L (14-36); Bilirubin,Total 0.6 mg/dl (0.2-1.3); Calcium 9.1 mg/dl (8.4-10.2); Creatinine Clearance Estimated 37 mL/min (50-200); Estimated Glomerular Filt Rate 34 ml/min (>60); GFR (African American) 41 ML/MIN (>60); Glucose 124 mg/dl (74-100); Hematocrit 30.6 % (37.0-47.0); Hemoglobin 9.5 g/dL (12.2-16.2); Mean Corpuscular Hemoglobin 32.9 pg (27.0-31.2); Mean Corpuscular Volume 105.9 fl (81-99); Mean Platelet Volume 9.3 fl (7.4-10.4); Neutrophils % 79.9 % (37.0-80.0); Platelet Count 172 K/mm3 (142-424); Red Blood Count 2.89 M/mm3 (4.20-5.40); Red Cell Distribution Width 16.5 % (11.5-17.5); Total Protein,Serum 6.2 g/dl (6.3-8.2); White Blood Count 6.1 K/mm3 (4.8-10.8)
[2024-07-17 12:11] LABS: Basophils % 0.7 % (0.1-2.0); Eosinophils # 0.3 K/mm3 (0.0-0.4); Eosinophils % 5.4 % (0.1-12.0); Lymphocytes # 0.4 K/mm3 (0.7-4.5); Lymphocytes % 6.2 % (10-50); Monocytes # 0.5 K/mm3 (0.1-1.0); Monocytes % 7.5 % (1.7-9.3); Neutrophils # 4.9 K/mm3 (1.8-7.8)
[2024-07-17 13:54] LABS: Anion Gap 6.5 mEq/L (5-15); Carbon Dioxide 26 mmol/L (22.0-30.0)
== END 2024-07-17 11:59 | disposition home or self-care (01) ==
LOC: INF 11:31
PROVIDERS: PCP Internal Medicine; Visit Provider Obstetrics & Gynecology
DX: C56.9 Malignant neoplasm of unspecified ovary (principal)
CPT/HCPCS: 36591; 80053; 85025; J1642

== ENCOUNTER 2024-07-25 11:40 | Outpatient (CLI) | payer MEDICARE, OTHER, SELFPAY ==
[2024-07-25 11:46] VITALS: BMI 29.5
[2024-07-25] MEDS: SODIUM CHLORIDE 0.9% 10ML FLUSH SYRINGE 10 ML IV (11:55)
[2024-07-25 12:18] LABS: Albumin Level 3.3 g/dl (3.5-5.0); Chloride 106 mmol/L (98-107); Potassium 4.3 mmoL/L (3.5-5.1); Sodium 132 mmol/L (136-145)
[2024-07-25 12:21] LABS: Alanine Aminotransferase 15 U/L (12-78); Albumin/Globulin Ratio 1.1 (1.1-1.8); Alkaline Phosphatase 73 U/L (38-126); Anion Gap 6.3 mEq/L (5-15); Aspartate Amino Transferase 34 U/L (14-36); Bilirubin,Total 0.7 mg/dl (0.2-1.3); Blood Urea Nitrogen 27 mg/dl (7-17); Carbon Dioxide 24 mmol/L (22.0-30.0); Creatinine Clearance Estimated 37 mL/min (50-200); Estimated Glomerular Filt Rate 34 ml/min (>60); GFR (African American) 41 ML/MIN (>60); Total Protein,Serum 6.3 g/dl (6.3-8.2)
[2024-07-25 12:22] LABS: Calcium 8.6 mg/dl (8.4-10.2); Glucose 120 mg/dl (74-100)
[2024-07-25 12:27] LABS: Hematocrit 30.7 % (37.0-47.0); Hemoglobin 9.6 g/dL (12.2-16.2); Mean Corpuscular HGB Conc 31.3 g/dL (31.8-35.4); Mean Corpuscular Hemoglobin 33.4 pg (27.0-31.2); Platelet Count 176 K/mm3 (142-424); Red Blood Count 2.87 M/mm3 (4.20-5.40); Red Cell Distribution Width 16.6 % (11.5-17.5); White Blood Count 5.7 K/mm3 (4.8-10.8)
[2024-07-25 12:28] LABS: Basophils % 0.5 % (0.1-2.0); Eosinophils # 0.3 K/mm3 (0.0-0.4); Eosinophils % 4.9 % (0.1-12.0); Lymphocytes # 0.4 K/mm3 (0.7-4.5); Lymphocytes % 7.2 % (10-50); Mean Platelet Volume 9.1 fl (7.4-10.4); Monocytes # 0.4 K/mm3 (0.1-1.0); Monocytes % 6.8 % (1.7-9.3); Neutrophils # 4.6 K/mm3 (1.8-7.8); Neutrophils % 80.2 % (37.0-80.0)
== END 2024-07-25 12:05 | disposition home or self-care (01) ==
LOC: INF 11:41
PROVIDERS: PCP Internal Medicine; Visit Provider Obstetrics & Gynecology
DX: C57.00 Malignant neoplasm of unspecified fallopian tube (principal)
CPT/HCPCS: 36591; 80053; 85025; J1642

== ENCOUNTER 2024-08-01 11:54 | Outpatient (CLI) | payer MEDICARE, OTHER, SELFPAY ==
[2024-08-01 12:02] VITALS: BMI 29.5
[2024-08-01 12:19] LABS: Basophils % 0.7 % (0.1-2.0); Eosinophils # 0.3 K/mm3 (0.0-0.4); Eosinophils % 5.3 % (0.1-12.0); Hematocrit 30.7 % (37.0-47.0); Hemoglobin 9.7 g/dL (12.2-16.2); Lymphocytes # 0.3 K/mm3 (0.7-4.5); Lymphocytes % 5.1 % (10-50); Mean Corpuscular HGB Conc 31.6 g/dL (31.8-35.4); Mean Corpuscular Hemoglobin 33.4 pg (27.0-31.2); Mean Corpuscular Volume 105.9 fl (81-99); Mean Platelet Volume 8.9 fl (7.4-10.4); Monocytes # 0.5 K/mm3 (0.1-1.0); Monocytes % 8.5 % (1.7-9.3); Neutrophils # 4.7 K/mm3 (1.8-7.8); Neutrophils % 79.9 % (37.0-80.0); Platelet Count 173 K/mm3 (142-424); Red Cell Distribution Width 17.2 % (11.5-17.5); White Blood Count 5.9 K/mm3 (4.8-10.8)
[2024-08-01 12:30] LABS: Alanine Aminotransferase 13 U/L (12-78); Albumin Level 3.4 g/dl (3.5-5.0); Albumin/Globulin Ratio 1.1 (1.1-1.8); Alkaline Phosphatase 78 U/L (38-126); Anion Gap 10.4 mEq/L (5-15); Aspartate Amino Transferase 33 U/L (14-36); Bilirubin,Total 0.7 mg/dl (0.2-1.3); Blood Urea Nitrogen 35 mg/dl (7-17); Calcium 8.6 mg/dl (8.4-10.2); Carbon Dioxide 24 mmol/L (22.0-30.0); Chloride 103 mmol/L (98-107); Creatinine Clearance Estimated 26 mL/min (50-200); Estimated Glomerular Filt Rate 23 ml/min (>60); GFR (African American) 28 ML/MIN (>60); Globulin 3.1 g/dL (1.3-3.2); Glucose 92 mg/dl (74-100); Potassium 4.4 mmoL/L (3.5-5.1); Sodium 133 mmol/L (136-145); Total Protein,Serum 6.5 g/dl (6.3-8.2)
[2024-08-01] MEDS: SODIUM CHLORIDE 0.9% 10ML FLUSH SYRINGE 10 ML IV (13:11)
== END 2024-08-01 12:20 | disposition home or self-care (01) ==
LOC: INF 11:56
PROVIDERS: PCP Internal Medicine; Visit Provider Obstetrics & Gynecology
DX: C56.9 Malignant neoplasm of unspecified ovary (principal)
CPT/HCPCS: 36591; 80053; 85025; J1642

== ENCOUNTER 2024-08-10 15:52 | Emergency (ER) | payer MEDICARE, OTHER, SELFPAY ==
[2024-08-10] VITALS (7 sets, daily range): BP systolic 124–154; BP diastolic 66–93; PULSE 99–109; RESP 14–20; TEMP 36.6–36.9; O2SAT 95–100; BMI 28.3
--- NOTE | 2024-08-10 16:15 | ECG_ITS ---
APPROVED REPORT Exam: Resting ECG HR:109 bpm ECG Measurements Heart Rate 109 AXES MD 157 P 69 QRSd 79 QRS 52 QT 324 T 50 QTc 388 Conclusion SINUS TACHYCARDIA LOW QRS VOLTAGE IN PRECORDIAL LEADS [QRS DEFLECTION < 1.0 mV IN CHEST LEADS] MINIMAL ST DEPRESSION [0.025+ mV ST DEPRESSION] ABNORMAL RHYTHM ECG UNCONFIRMED REPORT Electronically signed by : Ean Alcantar, 08/10/2024 23:11:47
--- NOTE | 2024-08-10 16:26 | CT_ITS ---
PROCEDURE INFORMATION: Exam: CT Abdomen And Pelvis Without Contrast Exam date and time: 08/10/2024 5:02 PM Age: 78 years old Clinical indication: Other: Lower abd pain, ckd, h/o ov. CA. TECHNIQUE: Imaging protocol: Computed tomography of the abdomen and pelvis without contrast. Radiation optimization: All CT scans at this facility use at least one of these dose optimization techniques: automated exposure control; mA and/or kV adjustment per patient size (includes targeted exams where dose is matched to clinical indication); or iterative reconstruction. COMPARISON: Chest radiograph dated 08/10/2024. CT ABDOMEN PELVIS W CON 05/17/2024 1:30 PM FINDINGS: Lungs: Evidence for calcified lung granuloma in the right chest. Bilateral pulmonary linear interstitial opacities identified within lower lungs. Heart: Aortic valve calcification is demonstrated. Small volume pericardial effusion. Coronary arteries: Coronary arterial calcifications are demonstrated. Liver: Liver appears heterogeneous with irregular border. Possible hepatic parenchymal disease. Gallbladder and biliary ducts: The gallbladder has been surgically removed. Surgical clips identified in the gallbladder fossa. Post cholecystectomy common biliary duct ectasia. If clinically indicated, consider correlation with liver function tests. Pancreas: Evidence of pancreatic and peripancreatic edema is demonstrated without corresponding mass or well-defined fluid collection. No extraluminal gas. Spleen: Unremarkable. No splenomegaly. Adrenal glands: Hypodense incidental right adrenal lesion, demonstrating features compatible with an adenoma. Right adrenal lesion measurement: -1 Hounsfield units and 18 mm on axial image 32. Fat-density left adrenal incidental lesion, demonstrating features compatible with a benign myelolipoma. Left adrenal lesion measurement: 13 mm on axial image 40. Kidneys and ureters: Evidence of moderate bilateral hydronephrosis. Perinephric edema. Stomach and bowel: Multiple duodenal diverticula are demonstrated without acute inflammatory process. Possible mild increased volume of colonic fecal material identified throughout the colon. Appendix: The visualized appendix appears unremarkable. Intraperitoneal space: Moderate to severe pelvic mesenteric edema. Moderate to severe abdominal mesenteric edema. Mild volume of intraperitoneal fluid identified in the bilateral abdomen and pelvis. No significant intraperitoneal well-defined fluid collection or air identified. Retroperitoneal space: Dilated tortuous ureters throughout the abdomen pelvis retroperitoneum bilaterally. Vasculature: Unremarkable. No abdominal aortic aneurysm. Lymph nodes: Enlarged bilateral inguinal lymphadenopathy. Largest lymph node within the right inguinal region measures up to 2.6 cm, 1.8 cm on axial image 114. Other smaller lymph nodes bilaterally. Enlarged bilateral iliac chain lymphadenopathy is also demonstrated. Largest iliac chain lymph node along the right external iliac chain measures up to 2.2 cm on axial image 98. Retroperitoneal enlarged abdominal lymphadenopathy measures up to 1.7 cm. Urinary bladder: The urinary bladder demonstrates nonspecific findings most compatible with infectious or inflammatory cystitis. Bladder infiltrative process, neoplasm are differential considerations. There is severe diffuse bladder wall thickening with adjacent edema, inflammation. Reproductive: The uterus is not present. Bones/joints: Diffusely decreased bone density. Moderate to severe generalized bony degenerative changes. Grade 1 anterior spondylolisthesis at L4-L5 level. Disc and osteophyte complexes with moderate to severe central canal and foraminal narrowing within the lumbar spine. Soft tissues: Unremarkable. Other findings: Evidence for postsurgical changes in the ventral wall. IMPRESSION: 1. Acute pancreatitis, as described above. 2. Moderate bilateral hydronephrosis. 3. Acute nonspecific bladder wall thickening, cystitis, as described above. Possible bladder neoplasm. Adjacent moderate to severe edema. 4. Enlarged abdominal pelvis and inguinal lymphadenopathy. Possible reactive lymph nodes to infection or inflammatory process versus primary lymphoproliferative or metastatic malignancy. 5. Small pericardial effusion. 6. Pulmonary atelectasis or acute infiltrates within lower chest bilaterally. 7. Nonspecific heterogeneous and irregular appearance of the liver. Recommend correlation with liver function tests. 8. Small volume free fluid within the abdomen pelvis. 9. Possible mild constipation. 10. Right benign adrenal adenoma. Left benign adrenal myelolipoma. 11. Chronic findings. COMMENTS: Consistent with the [employer]'s Incidental Findings Committee white paper (J Am Hilda Radiol 2017): For any incidental adrenal lesion greater than or equal to 1 cm but less than or equal to 4 cm classified in this report as benign, likely benign, or containing fat (including classification as an adenoma or myelolipoma), no follow-up imaging is recommended per consensus recommendations based on imaging criteria. Further lab evaluation could be pursued if warranted based on clinical findings.
--- NOTE | 2024-08-10 16:26 | XR_ITS ---
PROCEDURE INFORMATION: Exam: XR Chest Exam date and time: 08/10/2024 4:45 PM Age: 78 years old Clinical indication: Dyspnea TECHNIQUE: Imaging protocol: Radiologic exam of the chest. Views: 1 view. COMPARISON: CT ANGIO CHEST PE PROTOCOL 05/17/2024 1:30 PM FINDINGS: Tubes, catheters and devices: Right chest port catheter is demonstrated. Catheter tip overlies the SVC region. Surgical clips overlie the left chest region. Lungs: Right lung volume appears decreased. Bilateral pulmonary linear interstitial opacities identified within lower lungs. Pleural spaces: No pleural effusion. No pneumothorax. Heart/Mediastinum: Coronary arterial calcifications are demonstrated. Vasculature: Mild atherosclerotic calcification demonstrated within the aorta. Diaphragm: Elevation of the right hemidiaphragm is demonstrated. Bones/joints: Diffusely decreased bone density. Mild to moderate generalized bony degenerative changes. IMPRESSION: 1. Pulmonary atelectasis or acute infiltrates within lower chest bilaterally. 2. Degenerative and postsurgical changes are demonstrated, as described above.
--- NOTE | 2024-08-10 16:28 | ED_ITS ---
Discharge Plan Disposition Chief Complaint: Weakness Prescriptions Prescriptions: No Action lisinopril 5 mg tablet 5 mg PO DAILY gabapentin 400 mg capsule 400 mg PO TID Qty: 90 2RF oxycodone 5 mg tablet 5 mg PO Q4H PRN (Reason: Cancer pain) Qty: 120 0RF Prolia 60 mg/mL syringe 60 mg SQ [id number] Qty: 1 4RF furosemide 20 mg tablet 20 mg PO DAILY Qty: 90 3RF levothyroxine [Synthroid] 75 mcg tablet 75 mcg PO DAILY Qty: 90 3RF nitroglycerin 0.4 mg tablet, sublingual 0.4 mg sublingual Q5M PRN (Reason: chest pain) Qty: 30 0RF Rx Instructions: do not exceed 3 doses per episode omeprazole 20 mg capsule,delayed release(DR/EC) 20 mg PO DAILY Qty: 90 3RF ondansetron HCl 8 mg tablet 8 mg PO BID Qty: 60 0RF Rx Instructions: TAKE PRIOR TO CHEMO PILL BID potassium chloride 10 mEq tablet extended release 10 meq PO DAILY Qty: 90 3RF aspirin 81 MG tablet,chewable 81 mg PO DAILY prochlorperazine maleate 10 MG tablet 10 mg PO DAILY PRN (Reason: Nausea) polymyxin B sulf-trimethoprim [Polytrim] 10,000 unit- 1 mg/mL drops 1 drp Eye-Right Q3H 7 Days Qty: 10 0RF Rx Instructions: while awake; do not exceed 6 doses in 24 hours mupirocin 2 % ointment 1 applic topical TID 7 Days Qty: 15 0RF Referrals Follow up/Referrals: Ludin Hughes MD [Primary Care Provider] - See instructions Clinical Impressions Clinical Impression: CEZAR (acute kidney injury), Edema, Abdominal distension, Decreased urine output, Acute hyperkalemia, Bilateral hydronephrosis, Ovarian cancer, Cystitis Stand Alone Forms Stand Alone Forms: Transfer Record - ED Print Language Print Language: Iranian Discharge ED Provider: Lida Alcantar General Adult HPI General Chief complaint: Weakness Stated complaint: chest pain Time Seen by Provider: 08/10/24 16:05 Mode of Arrival: Wheelchair Source of Information: Patient and Relative Limitations: No Limitations Description of Symptoms (Recalled from ER Triage Doc. by RN): generalized weakness,pain,not urinating,swelling. has cancer History of Present Illness HPI narrative: Patient is a 78-year-old female presenting today with multiple complaints. She has a history of breast cancer twice and she has been dealing with ovarian cancer over the last 8 years. Had a partial hysterectomy when she was 35 years old but had her ovaries subsequently removed 8 years ago and they found ovarian cancer and since that time she has been on Chemotherapy on and off she states. She is followed by Dr. Hutchins at [facility] for this. She states that over the last few weeks she has had significant worsening of her lower abdominal pain. She does have some opioid-induced constipation she has been on methylnaltrexone from historical standpoint doubt any significant improvement but states her abdominal pain is much worse. States she has had to be admitted for pancreatitis in the past. But her abdominal pain is lower today. She does have some urinary urgency but has had significant decrease in her urine output as well as whole body edema that is much worse over the last several months. She is tearful and just dates that overall her diffuse body pain lower abdominal discomfort and swelling all got to the point where she felt like she needed to come to the emergency department. Related Data Home Medications ?Medication ?Instructions ?Recorded ?Confirmed aspirin 81 mg chewable tablet 81 mg PO DAILY BLOOD THINNNER 01/30/18 07/16/24 prochlorperazine maleate 10 mg 10 mg PO DAILY PRN Nausea 07/30/18 07/16/24 tablet lisinopril 5 mg tablet 5 mg PO DAILY 06/13/24 07/16/24 Previous Rx's ?Medication ?Instructions ?Recorded polymyxin B sulfate 10,000 1 drp Eye-Right Q3H 7 days #10 mL 03/08/23 unit-trimethoprim 1 mg/mL eye drops (Polytrim) mupirocin 2 % topical ointment 1 applic topical TID 7 days #15 12/16/23 grams denosumab 60 mg/mL subcutaneous 60 mg SQ [id number] #1 mL 07/16/24 syringe (Prolia) furosemide 20 mg tablet 20 mg PO DAILY Hypertension #90 07/16/24 tabs gabapentin 400 mg capsule 400 mg PO TID #90 caps 07/16/24 levothyroxine 75 mcg tablet 75 mcg PO DAILY hypothyroidism #90 07/16/24 (Synthroid) tabs nitroglycerin 0.4 mg sublingual 0.4 mg sublingual Q5M PRN chest 07/16/24 tablet pain #30 tabs omeprazole 20 mg capsule,delayed 20 mg PO DAILY #90 caps 07/16/24 release ondansetron HCl 8 mg tablet 8 mg PO BID Nausea & vomiting #60 07/16/24 tabs oxycodone 5 mg tablet 5 mg PO Q4H PRN Cancer pain #120 07/16/24 tabs potassium chloride 10 mEq 10 meq PO DAILY Supplement #90 tabs 07/16/24 tablet,extended release Allergies Allergy/AdvReac Type Severity Reaction Status Date / Time calcium Allergy Mild Verified 07/16/24 09:41 Sulfa (Sulfonamide Allergy Mild Verified 07/16/24 09:41 Antibiotics) morphine Allergy Verified 07/16/24 09:41 [facility] Disclaimer: The information contained in this section may have been updated after the patient was seen, as this information can be updated by other users. Medical History (Updated 08/10/24 @ 18:01 by Lida Alcantar MD) Decreased GFR Urinary tract infection Migraine Osteoarthritis Hypothyroid Chemotherapy management, encounter for Ovarian cancer Breast cancer Graves disease Thyroid disease Anemia GERD (gastroesophageal reflux disease) Gallbladder disease COPD (chronic obstructive pulmonary disease) HLD (hyperlipidemia) HTN (hypertension) CAD (coronary artery disease) Surgical History History of cholecystectomy H/O total hysterectomy with bilateral salpingo-oophorectomy (BSO) History of lumpectomy of right breast History of appendectomy Family History Other Family history of GERD Family history of acute congestive heart failure Family history of cancer Family history of diabetes mellitus type II Family history of hyperlipidemia Family history of hypertension Family history of myocardial infarction Family history of ovarian cancer Family history of stroke Social History Smoking Status: Never smoker alcohol intake: never current occupational status: retired Travel in the last 8 weeks: Inside the [place] household members: none housing: house Have you lived/traveled outside US in past 30 days?: No Contact w/someone who lives/traveled outside US past 30 days?: No Exposure to someone with infectious disease in past 14 days?: No Do you have a fever (greater than 100.4 F or 38 C)?: No Have you tested positive for COVID-19: No Exposed to someone with COVID-19 in past 14 days?: No Do you have a sore throat?: No Do you have a cough?: No Do you have any weakness?: No Do you have any diarrhea?: No Are you experiencing any unusual bleeding?: No Do you have any muscle aches/pain?: No Do you have any abdominal pain?: No Are you experiencing loss of taste or smell?: No Other Medical History Have you received the Flu Vaccine for this season: No Have you received the Pneumonia Vaccine: Yes ROS Obtained: Yes All systems reviewed & no additional complaints except as documented Physical Exam General General appearance: other (Tearful) Respiratory Respiratory exam: Present normal lung sounds bilaterally; Absent respiratory distress Cardiovascular Cardiovascular exam: Present regular rate and normal rhythm Abdominal Exam Abdominal exam: Present distention and tenderness (Diffusely tender in the lower abdomen no rebound or guarding) Neurological Exam Neurological exam: Present alert and oriented X3 Medical Decision Making Medical Records Screening: Per USPSTF and CDC recommendations, given the prevalence of disease in our region, it is our hospital?s policy to screen for HIV and viral Hepatitis for all patients aged 18 and over and those with ongoing risk factors. [place] Inquiry Pt receiving controlled substance: No Vital Signs: 08/10/24 15:53 08/10/24 16:30 Temperature 98.4 F Temperature Source Oral Pulse Rate 104 H Pulse Rate [Right] 107 H Respiratory Rate 20 18 Blood Pressure 143/72 H Blood Pressure [Right Arm] 154/70 H Blood Pressure Mean [Right Arm] 98 02 Sat by Pulse Oximetry 100 97 Oxygen Delivery Method Room Air Lab Data Lab results reviewed: Yes I reviewed the patient's lab results. Lab Results 08/10/24 16:13: Urine Color Yellow, Urine Appearance Turbid, Urine pH 6.0, Ur Specific [place] 1.015, Urine Protein 2+ A, Urine Glucose (UA) Negative, Urine Ketones Negative, Urine Blood 3+ A, Urine Nitrate Negative, Urine Bilirubin Negative, Urine Urobilinogen 0.2, Ur Leukocyte Esterase 3+ A, Urine RBC , Urine WBC Tntc, Urine Bacteria 3+ 08/10/24 16:35: WBC 7.4, RBC 2.82 L, Hgb 9.3 L, Hct 29.4 L, MCV 104.3 H, MCH 33.0 H, MCHC 31.6 L, RDW 17.4, Plt Count 186, MPV 9.4, Neut % (Auto) 82.6 H, L ymph % (Auto) 5.0 L, Story % (Auto) 9.0, Eos % (Auto) 2.6, Baso % (Auto) 0.4, Neut # (Auto) 6.1, Lymph # (Auto) 0.4 L, Story # (Auto) 0.7, Eos # (Auto) 0.2, Baso # (Auto) 0.0, PT 11.9, INR 1.07, Sodium 128 L, Potassium 6.4 H*, Chloride 102, Carbon Dioxide 18 L, Anion Gap 14.4, BUN 64 H, Creatinine 4.60 H, Estimated Creat Clear 12, Estimated GFR 9 L*, Est GFR ( Amer) 11 L*, Glucose 85, Lactate 0.9, Calcium 7.6 L, Total Bilirubin 0.5, AST 29, ALT 13, Alkaline Phosphatase 81, Troponin I < 0.01, NT-Pro-B Natriuret Pep 1420 H, Total Protein 6.4, Albumin 3.2 L, Globulin 3.2, Albumin/Globulin Ratio 1.0 L, Lipase 118, TSH 9.83 H 08/10/24 16:35 08/10/24 16:35 Orders (Tests/Meds): ED MEDICATIONS Generic Name Dose Route Start Last Admin Trade Name Freq PRN Reason Stop Dose Admin Calcium Gluconate/Sodium Chloride 1 gm in 50 mls @ 50 mls/hr 08/10/24 17:12 08/10/24 17:39 Calcium Gluconate 1,000mg/50ml Nacl Premix IV 08/10/24 18:11 50 mls/hr ONCE ONE Administration Sodium Chloride 500 mls @ 999 mls/hr 08/10/24 17:53 Sod Chlor 0.9% 1000ml Bag IV 08/10/24 18:23 .Q31M ONE Discontinued Medications Generic Name Dose Route Start Last Admin Trade Name Freq PRN Reason Stop Dose Admin Dextrose 50 ml 08/10/24 17:11 08/10/24 17:39 Dextrose 50% 50ml Syringe (Crash Cart) IVP 08/10/24 17:12 50 ml ONCE ONE Administration Hydromorphone HCl 0.5 mg 08/10/24 16:28 08/10/24 16:48 Hydromorphone 2mg/Ml Syringe IV 08/10/24 16:29 0.5 mg ONCE ONE Administration Ceftriaxone Sodium 1 gm/ 50 mls @ 100 mls/hr 08/10/24 17:09 Sodium Chloride IV 08/10/24 17:38 ONCE ONE Insulin Human Regular 10 unit 08/10/24 17:11 08/10/24 17:39 Insulin Human Regular 100 Units/Ml 10ml Vial IVP 08/10/24 17:12 10 unit ONCE ONE Administration Ondansetron HCl 4 mg 08/10/24 16:26 08/10/24 16:48 Ondansetron 4mg/2ml Vial IV 08/10/24 16:27 4 mg ONCE ONE Administration Sodium Zirconium Cyclosilicate 10 gm 08/10/24 17:09 08/10/24 17:39 Lokelma 5gm Packet PO 08/10/24 17:10 10 gm ONCE ONE Administration ORDERS Category Date Time Status CT abdomen pelvis wo con Stat Cat Scan 08/10/24 16:26 Completed CXR --portable [XR chest portable] Stat Exams 08/10/24 16:26 Completed BNP [NT Pro Brain Natriuretic Pep.] Stat Lab 08/10/24 16:35 Completed CBC w/Auto Diff [Complete Blood Count Auto Diff] Stat Lab 08/10/24 16:35 Completed CMP [Comprehensive Metabolic Panel] Stat Lab 08/10/24 16:35 Completed HIV Combo Stat Lab 08/10/24 16:35 Received Hepatitis C Ab Qual. W/ RFX Stat Lab 08/10/24 16:35 Received Lactic Acid Stat Lab 08/10/24 16:35 Completed Lipase Stat Lab 08/10/24 16:35 Completed PT INR [Prothrombin Time INR] Stat Lab 08/10/24 16:35 Completed TSH [Thyroid Stimulating Hormone] Stat Lab 08/10/24 16:35 Completed Trop I [Troponin I] Stat Lab 08/10/24 16:35 Completed Troponin I Q3H Lab 08/10/24 19:30 Ordered Troponin I Q3H Lab 08/10/24 22:30 Ordered UA [Urinalysis and Microscopic] Stat Lab 08/10/24 16:13 Completed Urine Culture Stat Micro 08/10/24 16:13 Received Venous Blood Gas Stat RT 08/10/24 17:52 Ordered Medical Decision Narrative: 78-year-old above history and physical and a history of ovarian cancer currently undergoing chemotherapy presents today with worsening lower abdominal discomfort significant whole body edema and decreased urine output. Differential includes renal insufficiency renal failure liver failure heart failure worsening ovarian cancer and intra-abdominal pathology such as diverticulitis pancreatitis etc. Noncontrasted CT scan has been ordered workup regarding her edema and decreased urine output and urinary urgency has also been initiated. Also pain medicine has been administered. Reassessment 5:42 PM patient has significant renal insufficiency with a creatinine of 4.6 baseline around 1 but recently around 2 and has a potassium above 6 no significant EKG changes to suggest effects from hyperkalemia at the moment. Nonetheless calcium has been administered in addition to insulin and glucose. CT scan was performed I personally interpreted which shows bilateral hydronephrosis as well as significantly enlarged bladder possible malignancy but likely secondary to an infection particular given that dirty urinalysis. Rocephin has been administered for that. Other findings below. I spoke with [facility] transfer center. 1. Acute pancreatitis, as described above. 2. Moderate bilateral hydronephrosis. 3. Acute nonspecific bladder wall thickening, cystitis, as described above. Possible bladder neoplasm. Adjacent moderate to severe edema. 4. Enlarged abdominal pelvis and inguinal lymphadenopathy. Possible reactive lymph nodes to infection or inflammatory process versus primary lymphoproliferative or metastatic malignancy. 5. Small pericardial effusion. 6. Pulmonary atelectasis or acute infiltrates within lower chest bilaterally. 7. Nonspecific heterogeneous and irregular appearance of the liver. Recommend correlation with liver function tests. 8. Small volume free fluid within the abdomen pelvis. 9. Possible mild constipation. 10. Right benign adrenal adenoma. Left benign adrenal myelolipoma. 11. Chronic findings. I initially spoke with Dr. Tejeda who stated there are no beds available at the moment. She asked that I transfer the patient however this patient is currently getting active chemotherapy for her ovarian cancer with [facility] and asked to speak to the physician on-call for that team see below. KAROLINA and cytoxan ; held from cycle [address] to [address] Perry. [facility] would admit and wants her there gigi. There are currently no beds at [facility] but they have a list of her undergone ox service and will make her as high-priority as any patient on the wait list at the moment. I discussed with him that we do not have nephrology coverage. He understands if we have to transfer the patient elsewhere for emergent nephrology coverage but I will discuss the case with our hospital medicine physician and see if he is comfortable managing this patient until a bed becomes available at . After discussion with Dr. Matos we all agree that holding the patient here until she can be managed at [facility] is what is best and he will keep the patient for 24 to 48 hours unless the patient worsens at which point he will transfer the patient. I discussed the situation with the patient and the patient's family she is aware that she could clinically worsen and that we do not have nephrology coverage here and also agrees that she would like to not be transferred to multiple hospitals. Therefore she understands and accepts the risk of staying at [facility] until a bed becomes available at . Critical Care Critical Care Time Critical Care Time: Yes Attestation: On 08/10/24, the high probability of a clinically significant, sudden or life threatening deterioration of the following system(s) required my full and direct attention, intervention and personal management. The time I documented below is in addition to time spent performing reported procedures but includes the following listed in this critical care notation. Total Time Total Critical Care Time: 65
[2024-08-10 16:32] LABS: Microscopic, Urine URINE MICROSCOPIC (MICROSCOPIC)
[2024-08-10 16:42] LABS: Appearance,Urine TURBID (Clear); Bilirubin,Urine Negative (Negative); Blood, Urine 3+ (Negative); Glucose,Urine (UA) Negative (Negative); Ketones,Urine Negative (Negative); Leukocyte Esterase,Urine 3+ (Negative); Nitrate,Urine Negative (Negative); Protein,Urine 2+ (Negative); Specific Gravity, Urine 1.015 (1.005-1.030); Urobilinogen,Urine 0.2 EU/dl (0.2)
[2024-08-10 16:44] LABS: Color,Urine Yellow (Yellow)
[2024-08-10] MEDS: HYDROMORPHONE 2MG/ML SYRINGE 0.5 MG IV (16:48)
[2024-08-10] MEDS: ONDANSETRON 4MG/2ML VIAL 4 MG IV (16:48)
[2024-08-10 16:55] LABS: Basophils % 0.4 % (0.1-2.0); Eosinophils # 0.2 K/mm3 (0.0-0.4); Eosinophils % 2.6 % (0.1-12.0); Hematocrit 29.4 % (37.0-47.0); Hemoglobin 9.3 g/dL (12.2-16.2); Lymphocytes # 0.4 K/mm3 (0.7-4.5); Mean Corpuscular HGB Conc 31.6 g/dL (31.8-35.4); Mean Corpuscular Volume 104.3 fl (81-99); Mean Platelet Volume 9.4 fl (7.4-10.4); Monocytes # 0.7 K/mm3 (0.1-1.0); Neutrophils # 6.1 K/mm3 (1.8-7.8); Neutrophils % 82.6 % (37.0-80.0); Platelet Count 186 K/mm3 (142-424); Red Blood Count 2.82 M/mm3 (4.20-5.40); Red Cell Distribution Width 17.4 % (11.5-17.5); White Blood Count 7.4 K/mm3 (4.8-10.8)
[2024-08-10 16:56] LABS: Chloride 102 mmol/L (98-107)
[2024-08-10 16:57] LABS: Albumin Level 3.2 g/dl (3.5-5.0); Sodium 128 mmol/L (136-145)
[2024-08-10 16:59] LABS: Alanine Aminotransferase 13 U/L (12-78); Anion Gap 14.4 mEq/L (5-15); Aspartate Amino Transferase 29 U/L (14-36); Blood Urea Nitrogen 64 mg/dl (7-17); Carbon Dioxide 18 mmol/L (22.0-30.0); Creatinine Clearance Estimated 12 mL/min (50-200); Estimated Glomerular Filt Rate 9 ml/min (>60); GFR (African American) 11 ML/MIN (>60)
[2024-08-10 16:59] LABS: WBC,Urine TNTC #/hpf (0-3)
[2024-08-10 17:00] LABS: Alkaline Phosphatase 81 U/L (38-126); Bilirubin,Total 0.5 mg/dl (0.2-1.3); Calcium 7.6 mg/dl (8.4-10.2); Globulin 3.2 g/dL (1.3-3.2); Glucose 85 mg/dl (74-100); INR 1.07 (0.9-1.1); Lipase 118 U/L (23-300); Prothrombin Time 11.9 seconds (10.1-12.5); Total Protein,Serum 6.4 g/dl (6.3-8.2)
[2024-08-10 17:01] LABS: Bacteria,Urine 3+ /lpf
[2024-08-10 17:01] LABS: Lactic Acid 0.9 mmol/L (0.7-2.1)
[2024-08-10 17:07] LABS: Potassium 6.4 mmoL/L (3.5-5.1)
[2024-08-10 17:10] LABS: NT Pro Brain Natriuretic Pep. 1420 pg/mL (0-450)
[2024-08-10 17:13] LABS: Troponin I < 0.01 ng/ml (0.00-0.034)
--- NOTE | 2024-08-10 17:26 | PC.NURSE ---
[facility] CONTACTED TO FOR TRANSFER, WILL CALL BACK
--- NOTE | 2024-08-10 17:28 | PC.NURSE ---
DR TALLEY SPEAKING WITH [facility]
[2024-08-10 17:31] LABS: Thyroid Stimulating Hormone 9.83 uIU/mL (0.465-4.68)
[2024-08-10] MEDS: LOKELMA 5GM PACKET 10 GM PO (17:39)
[2024-08-10] MEDS: DEXTROSE 50% 50ML SYRINGE (CRASH CART) 50 ML IVP ×2 (17:39→19:29)
[2024-08-10] MEDS: INSULIN HUMAN REGULAR 100 UNITS/ML 10ML VIAL 10 UNIT IVP (17:39)
[2024-08-10] MEDS: CALCIUM GLUC IN NACL, ISO-OSM 1 GM/50 ML BAG IV (17:39)
[2024-08-10 18:09] LABS: HIV Combo NEGATIVE (Negative)
[2024-08-10 18:17] LABS: Hepatitis C Ab Qual. W/ RFX NEGATIVE (Negative)
--- NOTE | 2024-08-10 18:27 | PC.NURSE ---
supervisor insecticide notified for admission
[2024-08-10] MEDS: CEFTRIAXONE SODIUM 1 GM in 0.9 % SODIUM CHLORIDE 50 ML IV (18:29)
[2024-08-10] MEDS: 0.9 % SODIUM CHLORIDE 1000ML 500 ML 999 ML IV (18:34)
--- NOTE | 2024-08-10 18:35 | PC.NURSE ---
Called Med/Surg to give report, states the room requires a stat clean and they just called [facility]
[2024-08-10 19:25] LABS: Troponin I < 0.01 ng/ml (0.00-0.034)
--- NOTE | 2024-08-10 19:31 | PC.NURSE ---
Called to the room by family at approximately 1905 stating something is wrong she is not acting dino THOMPSON made aware and brought to the bedside Pt's accucheck too low to read. Given 1 amp of D50 per IV and placed on purewick after complaints of needing to void. Pt's mental state improved after D50. Sao2 reading 88% Placed on 2 lpm nasal O2. Skin pale warm and dry REsp full and easy Speech clear and appropriate after D50. Family at bedside. Pt awaiting inpatient bed.
[2024-08-10 19:43] LABS: Anion Gap 13.7 mEq/L (5-15); Blood Urea Nitrogen 62 mg/dl (7-17); Calcium 7.6 mg/dl (8.4-10.2); Carbon Dioxide 19 mmol/L (22.0-30.0); Chloride 104 mmol/L (98-107); Creatinine Clearance Estimated 12 mL/min (50-200); Estimated Glomerular Filt Rate 9 ml/min (>60); GFR (African American) 11 ML/MIN (>60); Potassium 4.7 mmoL/L (3.5-5.1); Sodium 132 mmol/L (136-145)
[2024-08-10 19:45] LABS: Glucose 39 mg/dl (74-100)
== END 2024-08-10 21:09 | disposition other institution (70) ==
LOC: ER 17:29 → 2ND 18:40 → ER 19:50
PROVIDERS: Emergency Provider Student in an Organized Health Care Education/Training Program; PCP Internal Medicine Adolescent Medicine
DX: N30.90 Cystitis, unspecified without hematuria (principal); C56.9 Malignant neoplasm of unspecified ovary; N13.30 Unspecified hydronephrosis; E87.5 Hyperkalemia; N17.9 Acute kidney failure, unspecified; R34 Anuria and oliguria; R14.0 Abdominal distension (gaseous); R60.0 Localized edema; R53.83 Other fatigue; R33.9 Retention of urine, unspecified; R10.30 Lower abdominal pain, unspecified; K59.00 Constipation, unspecified; R39.15 Urgency of urination
CPT/HCPCS: 71045; 74176; 80048; 80053; 81001; 83605; 83690; 83880; 84443; 84484; 85025; 85610; 86803; 87086; 87389; 93005; 96361; 96365; 96374; 96375; 99291; J0696; J1171; J2405; J7030